=== PATIENT | male | born 1935 | race Caucasian/White ===

== ENCOUNTER → 2016-03-07 | Outpatient (CLI) | payer MEDICARE ==
[~2016-03-07] MED LIST: /ONDA4TA PO; AMLO5TAB OR; ASPI81TA45 OR; CAPT25TA3 OR; CIPR500T89 PO; CITRUCEL FIBER PO; DOXA1TAB41 PO; FLAG500T PO; FLON0.054; LIPI20TA OR; LOPR50TA OR; MECL-68 PO; MULTIVIT PO; NITR4TASL SL; OMEG100011 PO; TRAVATAN EYE DROPS OU; plavix; plavix PO
[2016-03-07 10:40] LABS: ALBUMIN 3.7 GM/DL (3.2-5.2); ALBUMIN/GLOBULIN RATIO 1.09 (1.00-1.93); ALKALINE PHOSPHATASE 81 U/L (45-117); ALT/SGPT 22 U/L (12-78); ANION GAP 9 MEQ/L (8-16); AST/SGOT 14 U/L (15-37); BLOOD UREA NITROGEN 18 MG/DL (7-18); CALCIUM LEVEL 9.3 MG/DL (8.8-10.2); CARBON DIOXIDE LEVEL 28 MEQ/L (21-32); CHLORIDE LEVEL 106 MEQ/L (98-107); GLOMERULAR FILTRATION RATE > 60.0 (>42); GLUCOSE, FASTING 103 MG/DL (83-110); MAGNESIUM LEVEL 2.1 MG/DL (1.8-2.4); POTASSIUM SERUM 4.3 MEQ/L (3.5-5.1); SODIUM LEVEL 143 MEQ/L (136-145); TOTAL PROTEIN 7.1 GM/DL (6.4-8.2)
== END ==
LOC: M LAB 09:17
PROVIDERS: ATTEND Physician Assistant
DX: I25.10 Atherosclerotic heart disease of native coronary artery without angina pectoris (principal); I49.01 Ventricular fibrillation; I25.5 Ischemic cardiomyopathy; E78.00 Pure hypercholesterolemia, unspecified

== ENCOUNTER 2016-04-08 07:15 | Emergency (ER) | payer MEDICARE ==
[2016-04-08 08:35] LABS: MEAN CORPUSCULAR HEMOGLOBIN 21.7 pg (27.0-33.0); MEAN CORPUSCULAR HGB CONC 31.4 g/dl (32.0-36.5); PLATELET COUNT, AUTOMATED 189 k/mm3 (150-450); RED CELL DISTRIBUTION WIDTH 15.5 % (11.5-14.5); WHITE BLOOD COUNT 6.3 K/mm3 (4.0-10.0)
[2016-04-08 09:00] LABS: ANION GAP 9 MEQ/L (8-16); BLOOD UREA NITROGEN 14 MG/DL (7-18); CALCIUM LEVEL 9.3 MG/DL (8.8-10.2); CARBON DIOXIDE LEVEL 26 MEQ/L (21-32); CHLORIDE LEVEL 107 MEQ/L (98-107); CREATININE FOR GFR 1.01 MG/DL (0.70-1.30); GLOMERULAR FILTRATION RATE > 60.0 (>42); GLUCOSE, FASTING 114 MG/DL (83-110); POTASSIUM SERUM 4.7 MEQ/L (3.5-5.1); SODIUM LEVEL 142 MEQ/L (136-145)
[2016-04-08 09:13] LABS: BANDS 3 % (< 11); EOSINOPHILS 2 % (0-5); OVALOCYTES 1+; POIKILOCYTOSIS 1+
[2016-04-08 09:14] LABS: ANISOCYTOSIS 1+; MICROCYTOSIS 1+
--- NOTE | 2016-04-08 10:30 | EDDOCDS ---
Nurse's Notes [facility] Name: Jean Jones Age: 80 yrs Sex: Male : 1935 Arrival Date: 04/08/2016 Time: 07:15 Bed I2 / M2 Private MD: Diagnosis: Hematuria Presentation: 04/08 07:38 Presenting complaint: Patient states: Noticed ''a few tiny red flecks'' in urine this dwg AM at 7, one time only, denies difficulty voiding or dysuria. Denies abdominal or pelvic discomfort at this time. Adult Sepsis Screening: The patient does not have new or worsening altered mentation. Patient's respiratory rate is less than 22. Systolic blood pressure is greater than 100. Patient has a qSOFA score of 0- Negative Sepsis Screen. Suicide/Homicide risk assessment- the patient denies having any suicidal and/or homicidal ideations and does not present with any other emotional, behavioral or mental health complaints. Status: Patient is not a service greeter or dependent. Transition of care: patient was not received from another setting of care. 07:38 Acuity: JOVANNY Level 4 [facility] 07:38 Method Of Arrival: Walkin/Carried/Asstd [facility] Triage Assessment: 07:48 General: Appears in no apparent distress. Pain: Denies pain. [facility] Historical: - Allergies: SULFA (SULFONAMIDES); - Home Meds: 1. amlodipine 10 mg Oral tab 1 tab once daily (Last dose: 04/08/2016 06:00) 2. aspirin 81 mg Oral TbEC 1 tab once daily (Last dose: 04/07/2016) 3. Lipitor 20 mg Oral tab 1 tab once daily (Last dose: 04/07/2016) 4. captopril 25 mg Oral tab 1 tab 2 times per day (Last dose: 04/08/2016 06:00) 5. Multivitamin Oral 1 tablet daily (Last dose: 04/08/2016 06:00) 6. nitroglycerin 0.4 mg SL subl 1 tab as needed 7. Fluticasone 50mcg nose spray BID (Last dose: 04/07/2016) - PMHx: Hypertension; Hypercholesterolemia; Myocardial [id number]; - PSHx: Cardiac stents (1996); Tonsillectomy; Adenoidectomy; Cataract Surgery- Bilateral; - Social history: Smoking status: Patient states former smoker of tobacco. No barriers to communication noted, The patient speaks fluent Hungarian. - Family history: Not pertinent. - : The pt / caregiver states he / she is not on anticoagulants. Home medication list is obtained from the patient. - Exposure Risk Screening:: None identified. Screenin:03 Screening information is obtained from the patient. Fall risk: No risks identified. kr3 Assistance ADL's: requires no assistance with activities of daily living. Abuse/DV Screen: The patient / caregiver reports he/she is: not in a situation that causes fear, pain or injury. Nutritional screening: No deficits noted. Advance Directives: Currently, there is a health care proxy, daughter. There is an active Power of [employer], daughter. home support is adequate. Assessment: 08:03 General: Appears in no apparent distress, comfortable, Behavior is cooperative. Pain: kr3 Denies pain. Neurological: No deficits noted. Respiratory: Respiratory effort is even, unlabored. : Reports hematuria Denies burning with urination, incontinence, urinary frequency, urgency. Derm: Skin is normal. 09:16 Reassessment: Patient appears in no apparent distress at this time. aware waiting for kr3 lab results. 10:11 General: Appears in no apparent distress, comfortable, Behavior is appropriate for age, hs1 cooperative, Pt aware of PA coming to speak with him about test results. . Vital Signs: 07:48 BP 168 / 81; Pulse 70; Resp 16; Temp 98.5(O); Pulse Ox 97% on R/A; Weight 102.06 kg; [facility] Height 6 ft. 1 in. (185.42 cm); Pain 0/10; 10:15 BP 159 / 80; Pulse 66; Resp 18; Temp 96.8(O); Pulse Ox 96% on R/A; Pain 0/10; nb2 07:48 Body Mass Index 29.68 (102.06 kg, 185.42 cm) [facility] Vitals: 07:48 Log In Time: April 08, 2016 at 07:17. [facility] ED Course: 07:16 Patient visited by Winsome Randall, Reg. hs2 07:16 Patient moved to Waiting hs2 07:37 Patient moved to Triage 1 [facility] 07:42 Triage Initiated [facility] 07:50 Patient moved to I2 / M2 [facility] 08:04 The patient / caregiver is instructed regarding the plan of care and ED course. kr3 Accompanied by Family Member, Patient has correct armband on for positive identification. Bed in low position. Call light in reach. Side rails up X 1. 08:08 Patient visited by Radha Lombardi RN. kr3 08:08 BMP Sent. kr3 08:08 CBC with Diff Sent. kr3 08:08 Urine Culture Sent. kr3 08:08 Urinalysis Sent. kr3 08:13 Sergei Tapia PA is PHCP. btw 08:13 Whitney Zavaleta MD is Attending Physician. btw 08:13 Patient visited by Sergei Tapia PA. btw 08:40 PLATELET ESTIMATE Sent. kr3 08:40 DIFFERENTIAL NO CHARGE Sent. kr3 09:16 Patient visited by Radha Lombardi RN. kr3 09:36 [facility] Payment Agreement was scanned into [employer] and attached to record. lg 10:11 Patient visited by Luz Regan RN. hs1 10:15 Patient visited by Elizabeth Cleveland. nb2 10:16 Drake Watts is Referral Physician. btw 10:29 No IV's were initiated during this patient's visit. No procedures done that require hs1 assistance. Order Results: Lab Order: Urinalysis; SPEC'M 04/08/16 08:08 Test: APPEARANCE, URINE; Value: CLEAR; Range: CLEAR; Status: F Test: COLOR, URINE; Value: RED; Range: YELLOW; Abnormal: Above high normal; Status: F Test: PH,URINE; Value: 6.0; Range: 5.0-9.0; Units: UNITS; Status: F Test: SPECIFIC GRAVITY URINE AUTO; Value: 1.002; Range: 1.002-1.035; Status: F Test: PROTEIN, URINE AUTO; Value: 2+; Range: NEGATIVE; Abnormal: Above high normal; Units: mg/dL; Status: F Test: GLUCOSE, URINE (UA) AUTO; Value: NEGATIVE; Range: NEGATIVE; Units: mg/dL; Status: F Test: KETONE, URINE AUTO; Value: NEGATIVE; Range: NEGATIVE; Units: mg/dL; Status: F Test: UROBILINOGEN, URINE AUTO; Value: 0.2; Range: 0.0-2.0; Units: mg/dL; Status: F Test: BILIRUBIN, URINE AUTO; Value: NEGATIVE; Range: NEGATIVE; Status: F Test: NITRITE, URINE AUTO; Value: NEGATIVE; Range: NEGATIVE; Status: F Test: LEUKOCYTE ESTERASE, URINE AUTO; Value: NEGATIVE; Range: NEGATIVE; Status: F Test: BLOOD, URINE BLOOD; Value: 3+; Range: NEGATIVE; Abnormal: Above high normal; Status: F Test: WBC, URINE AUTO; Value: 10; Range: 0-3; Abnormal: Above high normal; Units: /HPF; Status: F Test: RBC, URINE AUTO; Value: 140; Range: 0-3; Abnormal: Above high normal; Units: /HPF; Status: F Test: BACTERIA, URINE AUTO; Value: 1+; Range: NEGATIVE; Abnormal: Above high normal; Status: F Test: SQUAMOUS EPITHELIAL CELL UR AU; Value: 0; Range: 0-6; Units: /HPF; Status: F Test: HYALINE CAST, URINE AUTO; Value: 0; Range: 0-1; Units: /LPF; Status: F Lab Order: CBC with Diff; SPEC'M 04/08/16 08:08 Test: WHITE BLOOD COUNT; Value: 6.3; Range: 4.0-10.0; Units: K/mm3; Status: F Test: RED BLOOD COUNT; Value: 6.09; Range: 4.30-6.10; Units: M/mm3; Status: F Test: HEMOGLOBIN; Value: 13.2; Range: 14.0-18.0; Abnormal: Below low normal; Units: g/dl; Status: F Test: HEMATOCRIT; Value: 42.0; Range: 42.0-52.0; Units: %; Status: F Test: MEAN CORPUSCULAR VOLUME; Value: 69.0; Range: 80.0-96.0; Abnormal: Below low normal; Units: fl; Status: F Test: MEAN CORPUSCULAR HEMOGLOBIN; Value: 21.7; Range: 27.0-33.0; Abnormal: Below low normal; Units: pg; Status: F Test: MEAN CORPUSCULAR HGB CONC; Value: 31.4; Range: 32.0-36.5; Abnormal: Below low normal; Units: g/dl; Status: F Test: RED CELL DISTRIBUTION WIDTH; Value: 15.5; Range: 11.5-14.5; Abnormal: Above high normal; Units: %; Status: F Test: PLATELET COUNT, AUTOMATED; Value: 189; Range: 150-450; Units: k/mm3; Status: F Test: PLATELET ESTIMATE; Range: NORMAL; Status: I Test: NEUTROPHILS; Value: 73; Range: 35-75; Units: %; Status: F Test: BANDS; Value: 3; Range: < 11; Units: %; Status: F Test: LYMPHOCYTES; Value: 15; Range: 16-52; Abnormal: Below low normal; Units: %; Status: F Test: MONOCYTES; Value: 5; Range: 0-8; Units: %; Status: F Test: EOSINOPHILS; Value: 2; Range: 0-5; Units: %; Status: F Test: ATYPICAL LYMPH; Value: 2; Range: 0-5; Units: %; Status: F Test: POIKILOCYTOSIS; Value: 1+; Status: F Test: ANISOCYTOSIS; Value: 1+; Status: F Test: MICROCYTOSIS; Value: 1+; Status: F Test: OVALOCYTES; Value: 1+; Status: F Lab Order: [facility]; SPEC'M 04/08/16 08:08 Test: GLUCOSE, FASTING; Value: 114; Range: 83-110; Abnormal: Above high normal; Units: MG/DL; Status: F Test: BLOOD UREA NITROGEN; Value: 14; Range: 7-18; Units: MG/DL; Status: F Test: CREATININE FOR GFR; Value: 1.01; Range: 0.70-1.30; Units: MG/DL; Status: F Test: GLOMERULAR FILTRATION RATE; Value: > 60.0; Range: >42; Status: F Test: SODIUM LEVEL; Value: 142; Range: 136-145; Units: MEQ/L; Status: F Test: POTASSIUM SERUM; Value: 4.7; Range: 3.5-5.1; Units: MEQ/L; Status: F Test: CHLORIDE LEVEL; Value: 107; Range: 98-107; Units: MEQ/L; Status: F Test: CARBON DIOXIDE LEVEL; Value: 26; Range: 21-32; Units: MEQ/L; Status: F Test: ANION GAP; Value: 9; Range: 8-16; Units: MEQ/L; Status: F Test: CALCIUM LEVEL; Value: 9.3; Range: 8.8-10.2; Units: MG/DL; Status: F Test Note: ; Units are mL/min/1.73 m2 Chronic Kidney Disease Staging per NKF: Stage I & II GFR >=60 Normal to Mildly Decreased Stage III GFR 30-59 Moderately Decreased Stage IV GFR 15-29 Severely Decreased Stage V GFR <15 Very Little GFR Left ESRD GFR <15 on ELEVATOR CONSTRUCTOR ELECTRIC Lab Order: PLATELET ESTIMATE; SPEC'M 04/08/16 08:08 Test: PLATELET ESTIMATE; Value: NORMAL; Range: NORMAL; Status: F Outcome: 10:17 Discharge ordered by Provider. btw 10:29 Discharge Assessment: Patient awake, alert and oriented x 3. No cognitive and/or hs1 functional deficits noted. Patient verbalized understanding of disposition instructions. patient administered narcotics - no. The following High Risk Discharge criteria are identified: None. Discharged to home ambulatory. Condition: stable. Discharge instructions given to patient, Instructed on discharge instructions, follow up and referral plans. medication usage, Demonstrated understanding of instructions, medications, Pt was receptive of discharge instructions/ teaching. No special radiology studies were completed. Property sent home with patient. 10:29 Patient left the ED. hs1 Signatures: Sean Angel, CLARIE RN dwg Gaurav Guerrero, Reg Reg lg Radha Lombardi,CLAIRE RN kr3 Sergei Tapia PA PA btw Luz Regan RN RN hs1 Winsome Randall, Reg Reg hs2 Elizabeth Cleveland2 MTDD
--- NOTE | 2016-04-08 10:30 | EDDOCDS ---
Physician Documentation [facility] Name: Jean Jones Age: 80 yrs Sex: Male : 1935 Arrival Date: 04/08/2016 Time: 07:15 Bed I2 / M2 Private MD: Disposition: 04/08/16 10:17 Discharged to Home/Self Care. Impression: Hematuria. - Condition is Stable. - Discharge Instructions: Hematuria, Adult. - Medication Reconciliation, Local Pharmacy Hours form. - Follow up: Drake Watts; When: 1 - 2 days; Reason: Further diagnostic work-up, Recheck today's complaints, Continuance of care. - Problem is new. - Symptoms are unchanged. Historical: - Allergies: SULFA (SULFONAMIDES); - Home Meds: 1. amlodipine 10 mg Oral tab 1 tab once daily (Last dose: 04/08/2016 06:00) 2. aspirin 81 mg Oral TbEC 1 tab once daily (Last dose: 04/07/2016) 3. Lipitor 20 mg Oral tab 1 tab once daily (Last dose: 04/07/2016) 4. captopril 25 mg Oral tab 1 tab 2 times per day (Last dose: 04/08/2016 06:00) 5. Multivitamin Oral 1 tablet daily (Last dose: 04/08/2016 06:00) 6. nitroglycerin 0.4 mg SL subl 1 tab as needed 7. Fluticasone 50mcg nose spray BID (Last dose: 04/07/2016) - PMHx: Hypertension; Hypercholesterolemia; Myocardial [id number]; - PSHx: Cardiac stents (1996); Tonsillectomy; Adenoidectomy; Cataract Surgery- Bilateral; - Social history: Smoking status: Patient states former smoker of tobacco. No barriers to communication noted, The patient speaks fluent South African. - Family history: Not pertinent. - : The pt / caregiver states he / she is not on anticoagulants. Home medication list is obtained from the patient. - Exposure Risk Screening:: None identified. Vital Signs: 04/08 07:48 BP 168 / 81; Pulse 70; Resp 16; Temp 98.5(O); Pulse Ox 97% on R/A; Weight 102.06 kg / dwg 225 lbs; Height 6 ft. 1 in. (185.42 cm); Pain 0/10; 10:15 BP 159 / 80; Pulse 66; Resp 18; Temp 96.8(O); Pulse Ox 96% on R/A; Pain 0/10; nb2 07:48 Body Mass Index 29.68 (102.06 kg, 185.42 cm) [facility] MDM: 08:05 Urinalysis Ordered. EDMS 08:05 CBC with Diff Ordered. EDMS 08:05 BMP Ordered. EDMS 08:05 Urine Culture Ordered. EDMS 08:26 Financial registration complete. lg 08:37 DIFFERENTIAL NO CHARGE Ordered. EDMS 08:37 PLATELET ESTIMATE Ordered. EDMS 09:05 Urinalysis Reviewed. btw 09:05 BMP Reviewed. btw 09:32 CBC with Diff Reviewed. btw 09:32 PLATELET ESTIMATE Reviewed. btw 09:36 [facility] Payment Agreement was scanned into [employer] and attached to record. lg Signatures: Dispatcher [employer] Sean Keyes RN RN dw Gaurav Guerrero, Reg Reg lg Sergei Tapia PA PA btw Luz Regan RN RN hs1 The chart was reviewed and I authenticate all verbal orders and agree with the evaluation and treatment provided.Attachments: 09:36 [facility] Payment Agreement lg MTDD
--- NOTE | 2016-04-10 11:30 | EDDOCDS ---
Physician Documentation [facility] Name: Jean Jones Age: 80 yrs Sex: Male : 1935 Arrival Date: 04/08/2016 Time: 07:15 Bed I2 / M2 Private MD: Disposition: 04/08/16 10:17 Discharged to Home/Self Care. Impression: Hematuria. - Condition is Stable. - Discharge Instructions: Hematuria, Adult. - Medication Reconciliation, Local Pharmacy Hours form. - Follow up: Drake Watts; When: 1 - 2 days; Reason: Further diagnostic work-up, Recheck today's complaints, Continuance of care. - Problem is new. - Symptoms are unchanged. Historical: - Allergies: SULFA (SULFONAMIDES); - Home Meds: 1. amlodipine 10 mg Oral tab 1 tab once daily (Last dose: 04/08/2016 06:00) 2. aspirin 81 mg Oral TbEC 1 tab once daily (Last dose: 04/07/2016) 3. Lipitor 20 mg Oral tab 1 tab once daily (Last dose: 04/07/2016) 4. captopril 25 mg Oral tab 1 tab 2 times per day (Last dose: 04/08/2016 06:00) 5. Multivitamin Oral 1 tablet daily (Last dose: 04/08/2016 06:00) 6. nitroglycerin 0.4 mg SL subl 1 tab as needed 7. Fluticasone 50mcg nose spray BID (Last dose: 04/07/2016) - PMHx: Hypertension; Hypercholesterolemia; Myocardial [id number]; - PSHx: Cardiac stents (1996); Tonsillectomy; Adenoidectomy; Cataract Surgery- Bilateral; - Social history: Smoking status: Patient states former smoker of tobacco. No barriers to communication noted, The patient speaks fluent [place] Verde[place]. - Family history: Not pertinent. - : The pt / caregiver states he / she is not on anticoagulants. Home medication list is obtained from the patient. - Exposure Risk Screening:: None identified. Vital Signs: 04/08 07:48 BP 168 / 81; Pulse 70; Resp 16; Temp 98.5(O); Pulse Ox 97% on R/A; Weight 102.06 kg / dwg 225 lbs; Height 6 ft. 1 in. (185.42 cm); Pain 0/10; 10:15 BP 159 / 80; Pulse 66; Resp 18; Temp 96.8(O); Pulse Ox 96% on R/A; Pain 0/10; nb2 07:48 Body Mass Index 29.68 (102.06 kg, 185.42 cm) [facility] MDM: 08:05 Urinalysis Ordered. EDMS 08:05 CBC with Diff Ordered. EDMS 08:05 BMP Ordered. EDMS 08:05 Urine Culture Ordered. EDMS 08:26 Financial registration complete. lg 08:37 DIFFERENTIAL NO CHARGE Ordered. EDMS 08:37 PLATELET ESTIMATE Ordered. EDMS 09:05 Urinalysis Reviewed. btw 09:05 BMP Reviewed. btw 09:32 CBC with Diff Reviewed. btw 09:32 PLATELET ESTIMATE Reviewed. btw 09:36 [facility] Payment Agreement was scanned into [employer] and attached to record. lg 15:06 T-Sheet-- Draft Copy was scanned into [employer] and attached to record. gb Signatures: Dispatcher [employer] EDSean Negro RN RN [facility] Suellen Richardson, Reg Reg gb Gaurav Guerrero, Reg Reg lg Sergei Tapia PA PA btw Luz Regan RN RN hs1 The chart was reviewed and I authenticate all verbal orders and agree with the evaluation and treatment provided.Attachments: 09:36 [facility] Payment Agreement lg 15:06 T-Sheet-- Draft Copy gb Chart Complete MTDD
--- NOTE | 2016-04-10 11:30 | EDDOCDS ---
Nurse's Notes [facility] Name: Jean Jones Age: 80 yrs Sex: Male : 1935 Arrival Date: 04/08/2016 Time: 07:15 Bed I2 / M2 Private MD: Diagnosis: Hematuria Presentation: 04/08 07:38 Presenting complaint: Patient states: Noticed ''a few tiny red flecks'' in urine this dwg AM at 7, one time only, denies difficulty voiding or dysuria. Denies abdominal or pelvic discomfort at this time. Adult Sepsis Screening: The patient does not have new or worsening altered mentation. Patient's respiratory rate is less than 22. Systolic blood pressure is greater than 100. Patient has a qSOFA score of 0- Negative Sepsis Screen. Suicide/Homicide risk assessment- the patient denies having any suicidal and/or homicidal ideations and does not present with any other emotional, behavioral or mental health complaints. Status: Patient is not a family services assistant or dependent. Transition of care: patient was not received from another setting of care. 07:38 Acuity: JOVANNY Level 4 [facility] 07:38 Method Of Arrival: Walkin/Carried/Asstd [facility] Triage Assessment: 07:48 General: Appears in no apparent distress. Pain: Denies pain. [facility] Historical: - Allergies: SULFA (SULFONAMIDES); - Home Meds: 1. amlodipine 10 mg Oral tab 1 tab once daily (Last dose: 04/08/2016 06:00) 2. aspirin 81 mg Oral TbEC 1 tab once daily (Last dose: 04/07/2016) 3. Lipitor 20 mg Oral tab 1 tab once daily (Last dose: 04/07/2016) 4. captopril 25 mg Oral tab 1 tab 2 times per day (Last dose: 04/08/2016 06:00) 5. Multivitamin Oral 1 tablet daily (Last dose: 04/08/2016 06:00) 6. nitroglycerin 0.4 mg SL subl 1 tab as needed 7. Fluticasone 50mcg nose spray BID (Last dose: 04/07/2016) - PMHx: Hypertension; Hypercholesterolemia; Myocardial [id number]; - PSHx: Cardiac stents (1996); Tonsillectomy; Adenoidectomy; Cataract Surgery- Bilateral; - Social history: Smoking status: Patient states former smoker of tobacco. No barriers to communication noted, The patient speaks fluent Icelandic. - Family history: Not pertinent. - : The pt / caregiver states he / she is not on anticoagulants. Home medication list is obtained from the patient. - Exposure Risk Screening:: None identified. Screenin:03 Screening information is obtained from the patient. Fall risk: No risks identified. kr3 Assistance ADL's: requires no assistance with activities of daily living. Abuse/DV Screen: The patient / caregiver reports he/she is: not in a situation that causes fear, pain or injury. Nutritional screening: No deficits noted. Advance Directives: Currently, there is a health care proxy, daughter. There is an active Power of [employer], daughter. home support is adequate. Assessment: 08:03 General: Appears in no apparent distress, comfortable, Behavior is cooperative. Pain: kr3 Denies pain. Neurological: No deficits noted. Respiratory: Respiratory effort is even, unlabored. : Reports hematuria Denies burning with urination, incontinence, urinary frequency, urgency. Derm: Skin is normal. 09:16 Reassessment: Patient appears in no apparent distress at this time. aware waiting for kr3 lab results. 10:11 General: Appears in no apparent distress, comfortable, Behavior is appropriate for age, hs1 cooperative, Pt aware of PA coming to speak with him about test results. . Vital Signs: 07:48 BP 168 / 81; Pulse 70; Resp 16; Temp 98.5(O); Pulse Ox 97% on R/A; Weight 102.06 kg; [facility] Height 6 ft. 1 in. (185.42 cm); Pain 0/10; 10:15 BP 159 / 80; Pulse 66; Resp 18; Temp 96.8(O); Pulse Ox 96% on R/A; Pain 0/10; nb2 07:48 Body Mass Index 29.68 (102.06 kg, 185.42 cm) [facility] Vitals: 07:48 Log In Time: April 08, 2016 at 07:17. [facility] ED Course: 07:16 Patient visited by Winsome Randall, Reg. hs2 07:16 Patient moved to Waiting hs2 07:37 Patient moved to Triage 1 [facility] 07:42 Triage Initiated [facility] 07:50 Patient moved to I2 / M2 [facility] 08:04 The patient / caregiver is instructed regarding the plan of care and ED course. kr3 Accompanied by Family Member, Patient has correct armband on for positive identification. Bed in low position. Call light in reach. Side rails up X 1. 08:08 Patient visited by Radha Lombardi RN. kr3 08:08 BMP Sent. kr3 08:08 CBC with Diff Sent. kr3 08:08 Urine Culture Sent. kr3 08:08 Urinalysis Sent. kr3 08:13 Sergei Tapia PA is PHCP. btw 08:13 Whitney Zavaleta MD is Attending Physician. btw 08:13 Patient visited by Sergei Tapia PA. btw 08:40 PLATELET ESTIMATE Sent. kr3 08:40 DIFFERENTIAL NO CHARGE Sent. kr3 09:16 Patient visited by Radha Lombardi RN. kr3 09:36 [facility] Payment Agreement was scanned into [employer] and attached to record. lg 10:11 Patient visited by Luz Regan RN. hs1 10:15 Patient visited by Elizabeth Cleveland. nb2 10:16 Drake Watts is Referral Physician. btw 10:29 No IV's were initiated during this patient's visit. No procedures done that require hs1 assistance. 15:06 T-Sheet-- Draft Copy was scanned into [employer] and attached to record. gb Order Results: Lab Order: Urinalysis; SPEC'M 04/08/16 08:08 Test: APPEARANCE, URINE; Value: CLEAR; Range: CLEAR; Status: F Test: COLOR, URINE; Value: RED; Range: YELLOW; Abnormal: Above high normal; Status: F Test: PH,URINE; Value: 6.0; Range: 5.0-9.0; Units: UNITS; Status: F Test: SPECIFIC GRAVITY URINE AUTO; Value: 1.002; Range: 1.002-1.035; Status: F Test: PROTEIN, URINE AUTO; Value: 2+; Range: NEGATIVE; Abnormal: Above high normal; Units: mg/dL; Status: F Test: GLUCOSE, URINE (UA) AUTO; Value: NEGATIVE; Range: NEGATIVE; Units: mg/dL; Status: F Test: KETONE, URINE AUTO; Value: NEGATIVE; Range: NEGATIVE; Units: mg/dL; Status: F Test: UROBILINOGEN, URINE AUTO; Value: 0.2; Range: 0.0-2.0; Units: mg/dL; Status: F Test: BILIRUBIN, URINE AUTO; Value: NEGATIVE; Range: NEGATIVE; Status: F Test: NITRITE, URINE AUTO; Value: NEGATIVE; Range: NEGATIVE; Status: F Test: LEUKOCYTE ESTERASE, URINE AUTO; Value: NEGATIVE; Range: NEGATIVE; Status: F Test: BLOOD, URINE BLOOD; Value: 3+; Range: NEGATIVE; Abnormal: Above high normal; Status: F Test: WBC, URINE AUTO; Value: 10; Range: 0-3; Abnormal: Above high normal; Units: /HPF; Status: F Test: RBC, URINE AUTO; Value: 140; Range: 0-3; Abnormal: Above high normal; Units: /HPF; Status: F Test: BACTERIA, URINE AUTO; Value: 1+; Range: NEGATIVE; Abnormal: Above high normal; Status: F Test: SQUAMOUS EPITHELIAL CELL UR AU; Value: 0; Range: 0-6; Units: /HPF; Status: F Test: HYALINE CAST, URINE AUTO; Value: 0; Range: 0-1; Units: /LPF; Status: F Lab Order: Urine Culture; SPEC'M 04/08/16 08:08 Test: URINE CULTURE; Value: <EXTERNAL COMMENT eCWMed> FULL REPORT IN LAB NOTES (eCW and Medent).; Status: F Test: URINE CULTURE; Value: URINE CULTURE RESULT NO GROWTH; Status: F Lab Order: CBC with Diff; SPEC'M 04/08/16 08:08 Test: WHITE BLOOD COUNT; Value: 6.3; Range: 4.0-10.0; Units: K/mm3; Status: F Test: RED BLOOD COUNT; Value: 6.09; Range: 4.30-6.10; Units: M/mm3; Status: F Test: HEMOGLOBIN; Value: 13.2; Range: 14.0-18.0; Abnormal: Below low normal; Units: g/dl; Status: F Test: HEMATOCRIT; Value: 42.0; Range: 42.0-52.0; Units: %; Status: F Test: MEAN CORPUSCULAR VOLUME; Value: 69.0; Range: 80.0-96.0; Abnormal: Below low normal; Units: fl; Status: F Test: MEAN CORPUSCULAR HEMOGLOBIN; Value: 21.7; Range: 27.0-33.0; Abnormal: Below low normal; Units: pg; Status: F Test: MEAN CORPUSCULAR HGB CONC; Value: 31.4; Range: 32.0-36.5; Abnormal: Below low normal; Units: g/dl; Status: F Test: RED CELL DISTRIBUTION WIDTH; Value: 15.5; Range: 11.5-14.5; Abnormal: Above high normal; Units: %; Status: F Test: PLATELET COUNT, AUTOMATED; Value: 189; Range: 150-450; Units: k/mm3; Status: F Test: PLATELET ESTIMATE; Range: NORMAL; Status: I Test: NEUTROPHILS; Value: 73; Range: 35-75; Units: %; Status: F Test: BANDS; Value: 3; Range: < 11; Units: %; Status: F Test: LYMPHOCYTES; Value: 15; Range: 16-52; Abnormal: Below low normal; Units: %; Status: F Test: MONOCYTES; Value: 5; Range: 0-8; Units: %; Status: F Test: EOSINOPHILS; Value: 2; Range: 0-5; Units: %; Status: F Test: ATYPICAL LYMPH; Value: 2; Range: 0-5; Units: %; Status: F Test: POIKILOCYTOSIS; Value: 1+; Status: F Test: ANISOCYTOSIS; Value: 1+; Status: F Test: MICROCYTOSIS; Value: 1+; Status: F Test: OVALOCYTES; Value: 1+; Status: F Lab Order: [facility]; SPEC'M 04/08/16 08:08 Test: GLUCOSE, FASTING; Value: 114; Range: 83-110; Abnormal: Above high normal; Units: MG/DL; Status: F Test: BLOOD UREA NITROGEN; Value: 14; Range: 7-18; Units: MG/DL; Status: F Test: CREATININE FOR GFR; Value: 1.01; Range: 0.70-1.30; Units: MG/DL; Status: F Test: GLOMERULAR FILTRATION RATE; Value: > 60.0; Range: >42; Status: F Test: SODIUM LEVEL; Value: 142; Range: 136-145; Units: MEQ/L; Status: F Test: POTASSIUM SERUM; Value: 4.7; Range: 3.5-5.1; Units: MEQ/L; Status: F Test: CHLORIDE LEVEL; Value: 107; Range: 98-107; Units: MEQ/L; Status: F Test: CARBON DIOXIDE LEVEL; Value: 26; Range: 21-32; Units: MEQ/L; Status: F Test: ANION GAP; Value: 9; Range: 8-16; Units: MEQ/L; Status: F Test: CALCIUM LEVEL; Value: 9.3; Range: 8.8-10.2; Units: MG/DL; Status: F Test Note: ; Units are mL/min/1.73 m2 Chronic Kidney Disease Staging per NKF: Stage I & II GFR >=60 Normal to Mildly Decreased Stage III GFR 30-59 Moderately Decreased Stage IV GFR 15-29 Severely Decreased Stage V GFR <15 Very Little GFR Left ESRD GFR <15 on INCOME AUDITOR Lab Order: PLATELET ESTIMATE; SPEC'M 04/08/16 08:08 Test: PLATELET ESTIMATE; Value: NORMAL; Range: NORMAL; Status: F Outcome: 10:17 Discharge ordered by Provider. btw 10:29 Discharge Assessment: Patient awake, alert and oriented x 3. No cognitive and/or hs1 functional deficits noted. Patient verbalized understanding of disposition instructions. patient administered narcotics - no. The following High Risk Discharge criteria are identified: None. Discharged to home ambulatory. Condition: stable. Discharge instructions given to patient, Instructed on discharge instructions, follow up and referral plans. medication usage, Demonstrated understanding of instructions, medications, Pt was receptive of discharge instructions/ teaching. No special radiology studies were completed. Property sent home with patient. 10:29 Patient left the ED. hs1 Signatures: Sean Angel, CLAIRE RANGEL dw Suellen Richardson, Reg Reg gb Gaurav Guerrero, Reg Reg lg Radha Lombardi RN RN kr3 Sergei Tapia PA PA btw Luz Regan RN RN hs1 Winsome Randall, Reg Reg hs2 Elizabeth Cleveland2 Chart Complete MTDD
--- NOTE | 2016-04-10 11:30 | EDDOCDS ---
Physician Documentation [facility] Name: Jean Jones Age: 80 yrs Sex: Male : 1935 Arrival Date: 04/08/2016 Time: 07:15 Bed I2 / M2 Private MD: Disposition: 04/08/16 10:17 Discharged to Home/Self Care. Impression: Hematuria. - Condition is Stable. - Discharge Instructions: Hematuria, Adult. - Medication Reconciliation, Local Pharmacy Hours form. - Follow up: Drake Watts; When: 1 - 2 days; Reason: Further diagnostic work-up, Recheck today's complaints, Continuance of care. - Problem is new. - Symptoms are unchanged. Historical: - Allergies: SULFA (SULFONAMIDES); - Home Meds: 1. amlodipine 10 mg Oral tab 1 tab once daily (Last dose: 04/08/2016 06:00) 2. aspirin 81 mg Oral TbEC 1 tab once daily (Last dose: 04/07/2016) 3. Lipitor 20 mg Oral tab 1 tab once daily (Last dose: 04/07/2016) 4. captopril 25 mg Oral tab 1 tab 2 times per day (Last dose: 04/08/2016 06:00) 5. Multivitamin Oral 1 tablet daily (Last dose: 04/08/2016 06:00) 6. nitroglycerin 0.4 mg SL subl 1 tab as needed 7. Fluticasone 50mcg nose spray BID (Last dose: 04/07/2016) - PMHx: Hypertension; Hypercholesterolemia; Myocardial [id number]; - PSHx: Cardiac stents (1996); Tonsillectomy; Adenoidectomy; Cataract Surgery- Bilateral; - Social history: Smoking status: Patient states former smoker of tobacco. No barriers to communication noted, The patient speaks fluent Nigerien. - Family history: Not pertinent. - : The pt / caregiver states he / she is not on anticoagulants. Home medication list is obtained from the patient. - Exposure Risk Screening:: None identified. Vital Signs: 04/08 07:48 BP 168 / 81; Pulse 70; Resp 16; Temp 98.5(O); Pulse Ox 97% on R/A; Weight 102.06 kg / dwg 225 lbs; Height 6 ft. 1 in. (185.42 cm); Pain 0/10; 10:15 BP 159 / 80; Pulse 66; Resp 18; Temp 96.8(O); Pulse Ox 96% on R/A; Pain 0/10; nb2 07:48 Body Mass Index 29.68 (102.06 kg, 185.42 cm) [facility] MDM: 08:05 Urinalysis Ordered. EDMS 08:05 CBC with Diff Ordered. EDMS 08:05 BMP Ordered. EDMS 08:05 Urine Culture Ordered. EDMS 08:26 Financial registration complete. lg 08:37 DIFFERENTIAL NO CHARGE Ordered. EDMS 08:37 PLATELET ESTIMATE Ordered. EDMS 09:05 Urinalysis Reviewed. btw 09:05 BMP Reviewed. btw 09:32 CBC with Diff Reviewed. btw 09:32 PLATELET ESTIMATE Reviewed. btw 09:36 [facility] Payment Agreement was scanned into [employer] and attached to record. lg 15:06 T-Sheet-- Draft Copy was scanned into [employer] and attached to record. gb Signatures: Dispatcher [employer] EDSean Negro RN RN [facility] Suellen Richardson, Reg Reg gb Gaurav Guerrero, Reg Reg lg Sergei Tapia PA PA btw Luz Regan RN RN hs1 The chart was reviewed and I authenticate all verbal orders and agree with the evaluation and treatment provided.Attachments: 09:36 [facility] Payment Agreement lg 15:06 T-Sheet-- Draft Copy gb Chart Complete MTDD
== END 2016-04-08 10:29 | disposition home or self-care (01) ==
LOC: M ED 07:15
DX: R31.0 Gross hematuria (principal); I10 Essential (primary) hypertension; E78.00 Pure hypercholesterolemia, unspecified; I25.2 Old myocardial infarction; Z79.899 Other long term (current) drug therapy; Z79.82 Long term (current) use of aspirin; Z88.2 Allergy status to sulfonamides; Z87.891 Personal history of nicotine dependence

== ENCOUNTER → 2016-04-16 | Outpatient (CLI) | payer MEDICARE ==
[~2016-04-16] MED LIST changes: +ISOVUE-370 76% 100ML VIAL (Q9967) As Ordered ONE
--- NOTE | 2016-04-16 09:21 | REP ---
Clinical: Hematuria. Technique: Axial precontrast, contrast enhanced, and delayed images of the abdomen and pelvis using 100 ml Isovue 370 intravenous contrast material with coronal and sagittal re-formations as well as MIP urogram images. Comparison: 12/14/2013. Findings: Evaluation of the urinary tract system demonstrates bilateral chronic perinephric stranding and multiple renal cysts measuring up to 6.3 cm in the upper pole right kidney and 4.4 cm lower pole left kidney. No evidence for nephroureterolithiasis, hydroureteronephrosis, or renal mass lesion. The bladder and left ureter appear normal. There is a small diverticulum involving the very distal aspect of the right ureter approaching the bladder (images 130 - 135). Prostate gland demonstrates mild mass effect on the base of the bladder. Liver demonstrates few small cysts up to 1 cm. Spleen, and bilateral adrenal glands are normal. Evidence for chronic pancreatitis with parenchymal calcifications noted. Cholelithiasis noted without CT evidence for acute cholecystitis. The enteric system demonstrates moderate fecal stasis and diffuse diverticulosis. 3 cm fat containing periumbilical hernia noted. No ascites. No free air. No obvious adenopathy. Atherosclerotic changes of the aorta noted with ectasia to the distal aorta and bilateral common iliac arteries remaining stable compared to 2013. Surrounding musculoskeletal structures demonstrate degenerative changes without focal osseous abnormality. Lung bases demonstrate chronic changes and evidence for cardiomegaly. Impression: 1. Urinary tract system demonstrates bilateral renal cysts and a small distal right ureteral diverticulum along with chronic symmetric perinephric stranding. 2. Prostate gland demonstrates mass effect on the base of the bladder. 3. Diffuse marked diverticulosis. 4. Cholelithiasis. 5. Chronic ectatic appearance to the distal left abdominal aorta and bilateral iliac arteries. Signed by Tyrel Del Valle MD 04/16/2016 09:12 A
== END ==
LOC: M RAD 07:28
PROVIDERS: ATTEND Nurse Practitioner Family
DX: R31.9 Hematuria, unspecified (principal); N28.1 Cyst of kidney, acquired; N28.89 Other specified disorders of kidney and ureter; K80.70 Calculus of gallbladder and bile duct without cholecystitis without obstruction; K57.90 Diverticulosis of intestine, part unspecified, without perforation or abscess without bleeding; K42.9 Umbilical hernia without obstruction or gangrene; I70.0 Atherosclerosis of aorta
CPT/HCPCS: 74178; Q9967

== ENCOUNTER → 2016-06-01 | Outpatient (REF) | payer MEDICARE ==
[~2016-06-01] MED LIST changes: +AMLO10TA2 PO; +ASPI1TAB24 PO; +ATOR1TAB21 PO; +CAPT1TAB17 PO; +FLOM5CAP PO; +FLON1SPR; -ISOVUE-370 76% 100ML VIAL (Q9967) As Ordered ONE; +MULT1TAB10 PO; +TIMO5OPD OU
[2016-06-01 19:09] LABS: ANION GAP 7 MEQ/L (8-16); BLOOD UREA NITROGEN 24 MG/DL (7-18); CARBON DIOXIDE LEVEL 28 MEQ/L (21-32); CHLORIDE LEVEL 108 MEQ/L (98-107); CREATININE FOR GFR 1.03 MG/DL (0.70-1.30); GLOMERULAR FILTRATION RATE > 60.0 (>42); GLUCOSE, FASTING 130 MG/DL (83-110); MEAN CORPUSCULAR HEMOGLOBIN 22.1 pg (27.0-33.0); MEAN CORPUSCULAR HGB CONC 31.5 g/dl (32.0-36.5); POTASSIUM SERUM 4.1 MEQ/L (3.5-5.1); RED CELL DISTRIBUTION WIDTH 15.9 % (11.5-14.5); SODIUM LEVEL 143 MEQ/L (136-145); WHITE BLOOD COUNT 6.1 K/mm3 (4.0-10.0)
[2016-06-01 19:11] LABS: INR 1.08
== END ==
LOC: M LABDRAW1 17:39
PROVIDERS: ATTEND Urology
DX: Z01.818 Encounter for other preprocedural examination (principal); D49.4 Neoplasm of unspecified behavior of bladder

== ENCOUNTER → 2016-06-21 | Outpatient (REF) | payer MEDICARE | LOC: M SMT 13:43 | PROVIDERS: ATTEND Urology | DX: Z01.818 Encounter for other preprocedural examination (principal); D49.4 Neoplasm of unspecified behavior of bladder ==

== ENCOUNTER → 2016-06-28 | Day surgery (SDC) | payer MEDICARE ==
[~2016-06-28] VITALS: Ht 185.4 cm; Wt 104.3 kg
[~2016-06-28] MED LIST changes: +ACETAMINOPHEN TAB 650MG DOSE (2X325MG) PO PRN; +GLYCOPYRROLATE INJ 0.2 MG/ML 2 ML VIAL As Ordered ONE; +LIDOCAINE 2% INJ 100 MG/5 ML SDV (FOR ANES.) As Ordered ONE; +LR 1,000 ML IV SCH; +LevoFLOXacin IV 500 MG in APPROPRIATE DILUENT 1 EA IV ONE; +MIDAZOLAM INJ 2 MG/2 ML VIAL (J2250) As Ordered ONE; +NEOSTIGMINE 1MG/ML 5 ML SYRINGE (J2710) As Ordered ONE; +NORCO, ANEXSIA 5/325MG TABLET (HYDROcodone/ACETAMINOPHEN) PO PRN; +ONDANSETRON 4MG/2ML VIAL (J2405) As Ordered ONE; +ONDANSETRON 4MG/2ML VIAL (J2405) IV PRN; +PROPOFOL 200 MG/20 ML VIAL As Ordered ONE; +ROCURONIUM BROMIDE 50 MG/5 ML VIAL As Ordered ONE; +ePHEDrine SULFATE 25 MG/5 ML(5MG/ML) SYRINGE As Ordered ONE; +fentaNYL 100 MCG/2 ML INJECTION (J3010) IV PRN; +fentaNYL 250 MCG/5 ML INJECTION (J3010) As Ordered ONE
[2016-06-28 13:00] VITALS: BP 162/70
--- NOTE | 2016-06-28 16:39 | RO ---
DATE OF PROCEDURE: 06/28/2016 PREPROCEDURE DIAGNOSIS: Bladder tumor. POSTPROCEDURE DIAGNOSIS: Bladder tumor. PROCEDURE: Cystoscopy, transurethral resection of bladder tumor (greater than 5 cm), examination under anesthesia, urethral meatal dilation. SURGEON: Dr. Drake Watts CHAIN LINK FENCE INSTALLER: None. ANESTHESIA: General. OPERATIVE INDICATIONS: This is a 80-year-old male who was recently found to have a large necrotic appearing tumor at his bladder dome on office cystoscopy. It was recommended he be brought to the operating room today for the above listed procedure. DESCRIPTION OF PROCEDURE: The patient was brought to the operating room and general anesthesia was induced. Prophylactic antibiotics were infused. He was then placed in the dorsal lithotomy position and a bimanual digital rectal examination under anesthesia was performed. It was negative for palpable prostate nodules, and there were no palpable bladder masses. The bladder was freely mobile. The patient was then prepped and draped in the usual sterile fashion. A rigid cystoscope was then inserted into the urethral meatus and advanced to the bladder. Once the scope was in the bladder, the bladder thoroughly examined with both the 30 and the 70-degree lenses and it was notable only for the large necrotic appearing tumor at the bladder dome. At this point, the cystoscope was removed, and I tried going in with a resectoscope using the visual obturator and the urethral meatus was too narrow to get the scope in. I therefore dilated the urethral meatus to 32-Jamaican using curved metal sounds. At this point, the resectoscope was introduced using a visual obturator and within the bladder, I then resected the tumor completely. I made sure to resect deep enough to get into the muscle layer of the bladder. Once done, hemostasis was obtained using coagulation current. I then used the CieloFavery evacuator to remove all the tumor specimens from the bladder. Once that was done , the resectoscope was removed, and an 18-Jamaican Ortega catheter was inserted into the bladder and the balloon was filled with 10 mL of sterile water. Urine drained light pink at the end of the procedure. The catheter was then connected to gravity drainage and this marked the conclusion of the procedure. The patient was then taken out of the dorsal lithotomy position, awakened from anesthesia and transported to the recovery room in stable condition. ESTIMATED BLOOD LOSS: 0 mL. COMPLICATIONS: None. SPECIMEN: Bladder tumor. PLAN: The patient will followup in the clinic in about a week for catheter removal and to discuss his pathology results. MONICA
== END | disposition home or self-care (01) ==
LOC: M SDC 09:02
PROVIDERS: ATTEND Urology
DX: C67.9 Malignant neoplasm of bladder, unspecified (principal); I25.10 Atherosclerotic heart disease of native coronary artery without angina pectoris; I25.2 Old myocardial infarction; I10 Essential (primary) hypertension; E78.00 Pure hypercholesterolemia, unspecified; K57.30 Diverticulosis of large intestine without perforation or abscess without bleeding; R06.02 Shortness of breath; H40.9 Unspecified glaucoma; N40.0 Benign prostatic hyperplasia without lower urinary tract symptoms; Z88.2 Allergy status to sulfonamides; Z91.030 Bee allergy status; Z91.09 Other allergy status, other than to drugs and biological substances; Z79.899 Other long term (current) drug therapy; Z79.82 Long term (current) use of aspirin; Z86.79 Personal history of other diseases of the circulatory system; Z95.5 Presence of coronary angioplasty implant and graft; Z96.1 Presence of intraocular lens; Z87.891 Personal history of nicotine dependence
CPT/HCPCS: 52240; 88307; J1956; J2250; J2405; J2710; J3010

== ENCOUNTER → 2016-07-09 | Outpatient (REF) | payer MEDICARE ==
[~2016-07-09] MED LIST changes: -ACETAMINOPHEN TAB 650MG DOSE (2X325MG) PO PRN; -GLYCOPYRROLATE INJ 0.2 MG/ML 2 ML VIAL As Ordered ONE; -LIDOCAINE 2% INJ 100 MG/5 ML SDV (FOR ANES.) As Ordered ONE; -LR 1,000 ML IV SCH; -LevoFLOXacin IV 500 MG in APPROPRIATE DILUENT 1 EA IV ONE; -MIDAZOLAM INJ 2 MG/2 ML VIAL (J2250) As Ordered ONE; -NEOSTIGMINE 1MG/ML 5 ML SYRINGE (J2710) As Ordered ONE; -NORCO, ANEXSIA 5/325MG TABLET (HYDROcodone/ACETAMINOPHEN) PO PRN; -ONDANSETRON 4MG/2ML VIAL (J2405) As Ordered ONE; -ONDANSETRON 4MG/2ML VIAL (J2405) IV PRN; -PROPOFOL 200 MG/20 ML VIAL As Ordered ONE; -ROCURONIUM BROMIDE 50 MG/5 ML VIAL As Ordered ONE; -ePHEDrine SULFATE 25 MG/5 ML(5MG/ML) SYRINGE As Ordered ONE; -fentaNYL 100 MCG/2 ML INJECTION (J3010) IV PRN; -fentaNYL 250 MCG/5 ML INJECTION (J3010) As Ordered ONE
[2016-07-09 16:05] LABS: ALBUMIN 3.6 GM/DL (3.2-5.2); ALKALINE PHOSPHATASE 84 U/L (45-117); ALT/SGPT 18 U/L (12-78); ANION GAP 9 MEQ/L (8-16); AST/SGOT 13 U/L (15-37); BILIRUBIN,DIRECT 0.3 MG/DL (0.0-0.2); BILIRUBIN,TOTAL 0.8 MG/DL (0.2-1.0); BLOOD UREA NITROGEN 18 MG/DL (7-18); CALCIUM LEVEL 8.8 MG/DL (8.8-10.2); CARBON DIOXIDE LEVEL 26 MEQ/L (21-32); CHLORIDE LEVEL 109 MEQ/L (98-107); CREATININE FOR GFR 1.15 MG/DL (0.70-1.30); GLOMERULAR FILTRATION RATE > 60.0 (>42); GLUCOSE, FASTING 108 MG/DL (83-110); POTASSIUM SERUM 4.6 MEQ/L (3.5-5.1); SODIUM LEVEL 144 MEQ/L (136-145); TOTAL PROTEIN 6.6 GM/DL (6.4-8.2)
[2016-07-09 16:21] LABS: ADD MORPHOLOGY? YES; BASO # 0.2 K/mm3 (0.0-0.2); BASO % 3.2 % (0.0-1.0); EOS # 0.2 K/mm3 (0.0-0.50); EOS % 3.1 % (0.0-3.0); LARGE UNSTAINED CELL # 0.1 K/mm3 (0.0-0.4); LARGE UNSTAINED CELL % 1.7 % (0.0-4.0); LYMPH # 1.4 K/mm3 (1.5-4.5); LYMPH % 21.3 % (24.0-44.0); MEAN CORPUSCULAR HEMOGLOBIN 22.2 pg (27.0-33.0); MEAN CORPUSCULAR HGB CONC 31.8 g/dl (32.0-36.5); MONO # 0.4 K/mm3 (0.0-0.8); NEUTROPHILS # 3.9 K/mm3 (1.8-7.7); NEUTROPHILS % 63.7 % (36.0-66.0); PLATELET COUNT, AUTOMATED 204 k/mm3 (150-450); WHITE BLOOD COUNT 6.1 K/mm3 (4.0-10.0)
[2016-07-09 19:28] LABS: ANISOCYTOSIS 1+; MICROCYTOSIS 3+
[2016-07-09 19:29] LABS: OVALOCYTES 1+; POIKILOCYTOSIS 1+
[2016-07-09 19:30] LABS: SCHISTOCYTES 1+; TEAR DROP CELLS 1+
[2016-07-09 19:32] LABS: BURR CELLS 1+
== END ==
LOC: M LABDRAW1 15:30
PROVIDERS: ATTEND Urology
DX: C67.1 Malignant neoplasm of dome of bladder (principal)

== ENCOUNTER → 2016-08-19 | Outpatient (CLI) | payer MEDICARE ==
[2016-08-19 10:12] LABS: BASO % 0.4 % (0.0-1.0); EOS # 0.1 K/mm3 (0.0-0.50); EOS % 1.8 % (0.0-3.0); LARGE UNSTAINED CELL % 1.1 % (0.0-4.0); LYMPH # 0.9 K/mm3 (1.5-4.5); MEAN CORPUSCULAR HEMOGLOBIN 22.4 pg (27.0-33.0); MEAN CORPUSCULAR HGB CONC 31.8 g/dl (32.0-36.5); MEAN CORPUSCULAR VOLUME 70.5 fl (80.0-96.0); MONO # 0.1 K/mm3 (0.0-0.8); MONO % 1.1 % (0.0-5.0); NEUTROPHILS # 3.2 K/mm3 (1.8-7.7); NEUTROPHILS % 74.7 % (36.0-66.0); PLATELET COUNT, AUTOMATED 100 k/mm3 (150-450); RED CELL DISTRIBUTION WIDTH 14.9 % (11.5-14.5); WHITE BLOOD COUNT 4.2 K/mm3 (4.0-10.0)
[2016-08-19 10:25] LABS: ALBUMIN 3.3 GM/DL (3.2-5.2); ALBUMIN/GLOBULIN RATIO 1.03 (1.00-1.93); BILIRUBIN,TOTAL 0.5 MG/DL (0.2-1.0); CALCIUM LEVEL 9.3 MG/DL (8.8-10.2); CREATININE FOR GFR 1.28 MG/DL (0.70-1.30); GLOMERULAR FILTRATION RATE 57.9 (>42); POTASSIUM SERUM 4.8 MEQ/L (3.5-5.1); TOTAL PROTEIN 6.5 GM/DL (6.4-8.2)
== END ==
LOC: M SMT 07:58
PROVIDERS: ATTEND Internal Medicine Hematology & Oncology
DX: C67.9 Malignant neoplasm of bladder, unspecified (principal)

== ENCOUNTER → 2016-09-08 | Outpatient (REF) | payer MEDICARE ==
[~2016-09-08] MED LIST changes: +ASPI-161 PO; -ASPI1TAB24 PO; +CIPR-249 PO; -CIPR500T89 PO; +TIMO0.5S29 OU; -TIMO5OPD OU
[2016-09-08 11:49] LABS: ADD MANUAL DIFFER YES; MEAN CORPUSCULAR HEMOGLOBIN 23.2 pg (27.0-33.0); MEAN CORPUSCULAR HGB CONC 33.2 g/dl (32.0-36.5); MEAN CORPUSCULAR VOLUME 69.9 fl (80.0-96.0); PLATELET COUNT, AUTOMATED 129 k/mm3 (150-450); RED CELL DISTRIBUTION WIDTH 15.7 % (11.5-14.5); WHITE BLOOD COUNT 2.3 K/mm3 (4.0-10.0)
[2016-09-08 12:48] LABS: ANISOCYTOSIS 2+; EOSINOPHILS 1 % (0-5); HYPOCHROMASIA 1+; MICROCYTOSIS 2+; OVALOCYTES 1+; POIKILOCYTOSIS 1+
== END ==
LOC: M LABDRAW1 11:13
PROVIDERS: ATTEND Internal Medicine Hematology & Oncology
DX: C67.9 Malignant neoplasm of bladder, unspecified (principal)

== ENCOUNTER → 2016-09-08 | Outpatient (REF) | payer MEDICARE ==
[2016-09-08 11:42] LABS: ALBUMIN 3.3 GM/DL (3.2-5.2); ALBUMIN/GLOBULIN RATIO 1.14 (1.00-1.93); ALKALINE PHOSPHATASE 89 U/L (45-117); ALT/SGPT 21 U/L (12-78); ANION GAP 4 MEQ/L (8-16); AST/SGOT 11 U/L (15-37); BILIRUBIN,TOTAL 0.5 MG/DL (0.2-1.0); BLOOD UREA NITROGEN 20 MG/DL (7-18); CALCIUM LEVEL 8.9 MG/DL (8.8-10.2); CARBON DIOXIDE LEVEL 29 MEQ/L (21-32); CHLORIDE LEVEL 106 MEQ/L (98-107); CHOLESTEROL LEVEL 98 MG/DL (<200); CREATININE FOR GFR 1.07 MG/DL (0.70-1.30); GLOMERULAR FILTRATION RATE > 60.0 (>42); GLUCOSE, FASTING 102 MG/DL (83-110); POTASSIUM SERUM 4.8 MEQ/L (3.5-5.1); SODIUM LEVEL 139 MEQ/L (136-145); TOTAL PROTEIN 6.2 GM/DL (6.4-8.2); TRIGLYCERIDES LEVEL 49 MG/DL (<150)
== END ==
LOC: M LABDRAW1 11:14
PROVIDERS: ATTEND Physician Assistant
DX: I25.10 Atherosclerotic heart disease of native coronary artery without angina pectoris (principal); I25.5 Ischemic cardiomyopathy; E78.00 Pure hypercholesterolemia, unspecified; C67.9 Malignant neoplasm of bladder, unspecified

== ENCOUNTER → 2016-09-16 | Outpatient (CLI) | payer MEDICARE ==
[2016-09-16 14:11] LABS: MEAN CORPUSCULAR HEMOGLOBIN 22.2 pg (27.0-33.0); MEAN CORPUSCULAR HGB CONC 31.2 g/dl (32.0-36.5); MEAN CORPUSCULAR VOLUME 71.2 fl (80.0-96.0); RED CELL DISTRIBUTION WIDTH 19.1 % (11.5-14.5); WHITE BLOOD COUNT 6.5 K/mm3 (4.0-10.0)
[2016-09-16 15:56] LABS: ALBUMIN 3.5 GM/DL (3.2-5.2); ANION GAP 6 MEQ/L (8-16); BLOOD UREA NITROGEN 25 MG/DL (7-18); CALCIUM LEVEL 8.5 MG/DL (8.8-10.2); CARBON DIOXIDE LEVEL 26 MEQ/L (21-32); CHLORIDE LEVEL 107 MEQ/L (98-107); CREATININE FOR GFR 1.15 MG/DL (0.70-1.30); GLOMERULAR FILTRATION RATE > 60.0 (>42); GLUCOSE, FASTING 129 MG/DL (83-110); MAGNESIUM LEVEL 2.3 MG/DL (1.8-2.4); PHOSPHORUS LEVEL 3.2 MG/DL (2.5-4.9); POTASSIUM SERUM 4.7 MEQ/L (3.5-5.1); SODIUM LEVEL 139 MEQ/L (136-145)
== END ==
LOC: M WUC 10:03
PROVIDERS: ATTEND Physician Assistant
DX: Z51.81 Encounter for therapeutic drug level monitoring (principal); Z79.01 Long term (current) use of anticoagulants; I48.91 Unspecified atrial fibrillation

== ENCOUNTER → 2016-10-06 | Outpatient (REF) | payer MEDICARE ==
[2016-10-06 10:53] LABS: ADD MANUAL DIFFER YES; MEAN CORPUSCULAR HEMOGLOBIN 22.5 pg (27.0-33.0); MEAN CORPUSCULAR HGB CONC 31.2 g/dl (32.0-36.5); MEAN CORPUSCULAR VOLUME 72.1 fl (80.0-96.0); PLATELET COUNT, AUTOMATED 162 k/mm3 (150-450); RED CELL DISTRIBUTION WIDTH 19.5 % (11.5-14.5); WHITE BLOOD COUNT 2.4 K/mm3 (4.0-10.0)
[2016-10-06 11:45] LABS: ANISOCYTOSIS 2+; BANDS 2 % (< 11); BASOPHILS 1 % (0-4); HYPOCHROMASIA 2+; MICROCYTOSIS 2+; OVALOCYTES 1+; POIKILOCYTOSIS 1+
[2016-10-06 11:47] LABS: POLYCHROMASIA 1+
== END ==
LOC: M LABDRAW1 10:37
PROVIDERS: ATTEND Internal Medicine Hematology & Oncology
DX: C67.9 Malignant neoplasm of bladder, unspecified (principal)

== ENCOUNTER → 2016-10-28 | Outpatient (REF) | payer MEDICARE ==
[2016-10-28 12:32] LABS: BASO % 0.3 % (0.0-1.0); EOS % 1.6 % (0.0-3.0); LARGE UNSTAINED CELL % 2.1 % (0.0-4.0); LYMPH # 0.6 K/mm3 (1.5-4.5); LYMPH % 41.2 % (24.0-44.0); MEAN CORPUSCULAR HEMOGLOBIN 23.5 pg (27.0-33.0); MEAN CORPUSCULAR HGB CONC 31.8 g/dl (32.0-36.5); MEAN CORPUSCULAR VOLUME 73.8 fl (80.0-96.0); MONO % 0.9 % (0.0-5.0); NEUTROPHILS # 0.7 K/mm3 (1.8-7.7); NEUTROPHILS % 53.8 % (36.0-66.0); RED CELL DISTRIBUTION WIDTH 18.6 % (11.5-14.5); WHITE BLOOD COUNT 1.4 K/mm3 (4.0-10.0)
[2016-10-28 12:44] LABS: PLATELET COUNT, AUTOMATED 60 k/mm3 (150-450)
== END ==
LOC: M LABDRAW1 11:42
PROVIDERS: ATTEND Internal Medicine Hematology & Oncology
DX: C67.9 Malignant neoplasm of bladder, unspecified (principal)

== ENCOUNTER → 2016-11-03 | Outpatient (REF) | payer MEDICARE ==
[2016-11-03 09:46] LABS: ADD MANUAL DIFFER YES; MEAN CORPUSCULAR HEMOGLOBIN 23.4 pg (27.0-33.0); MEAN CORPUSCULAR HGB CONC 31.6 g/dl (32.0-36.5); MEAN CORPUSCULAR VOLUME 74.2 fl (80.0-96.0); PLATELET COUNT, AUTOMATED 270 k/mm3 (150-450); RED CELL DISTRIBUTION WIDTH 20.1 % (11.5-14.5); WHITE BLOOD COUNT 3.1 K/mm3 (4.0-10.0)
[2016-11-03 10:27] LABS: BASOPHILS 1 % (0-4); EOSINOPHILS 2 % (0-5); OVALOCYTES 1+; POIKILOCYTOSIS 2+
[2016-11-03 10:28] LABS: ANISOCYTOSIS 2+; HYPOCHROMASIA 1+; MICROCYTOSIS 1+; SCHISTOCYTES 1+
[2016-11-03 10:29] LABS: GIANT PLATELETS 1+
== END ==
LOC: M LABDRAW1 07:38
PROVIDERS: ATTEND Internal Medicine Hematology & Oncology
DX: C67.9 Malignant neoplasm of bladder, unspecified (principal)

== ENCOUNTER → 2017-02-01 | Outpatient (CLI) | payer MEDICARE ==
--- NOTE | 2017-02-02 07:35 | RADONC ---
RADIATION ONCOLOGY CONSULTATION NOTE DATE: 02/01/2017 CHART NUMBER: [id number] DIAGNOSIS: Bladder cancer. STAGE: II, T2N0M0. ECOG PERFORMANCE STATUS: 0. CONSULTATION NOTE: Mr. 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 HISTORY OF PRESENT ILLNESS: The patient was in his usual state of health until earlier this year when he began having some hematuria. He was seen by the urologist Dr. Watts and a mass was found in the dome of his bladder. On 06/28/2016, the patient underwent transurethral resection of his bladder tumor which was greater than 5 cm. Pathology revealed a urothelial carcinoma with squamous cell differentiation and invasion of the muscularis propria. The patient was then seen by Dr. Macedo and pathology was reviewed showing papillary urothelial carcinoma with sarcomatoid features and a foci of squamous differentiation. The patient was subsequently seen by Dr. Cohen as well as Dr. Macedo who recommended radical cystectomy after initial neoadjuvant chemotherapy. The patient underwent four cycles of cisplatin and gemcitabine. His last chemo was 10/21/2016. Restaging workup failed to show any evidence of disease. On 12/16/2016, cystoscopy and bladder biopsies showed partially eroded bladder saldaña with chronic inflammation and reactive changes. No evidence of residual tumor was seen. The patient decided against cystectomy and wishes to undergo definitive chemoradiation for bladder sparing. He is now presenting to me for discussion of that. PAST MEDICAL HISTORY: The patient's past medical history is positive for cataracts, diverticulitis, CO, hypercholesterolemia, arthritis, hypertension, an irregular heartbeat, and a lung nodule. The lung nodule was biopsied on 07/30/2016 and showed to be nonmalignant. In addition, the patient underwent a tonsillectomy, an inguinal hernia repair and coronary angioplasty. SOCIAL HISTORY: The patient quit smoking in 1990. He had smoked one pack of cigarettes per day for 20 years. He does not abuse alcohol. ALLERGIES: The patient is allergic to SULFA DRUGS. FAMILY HISTORY: The patient's family history is negative for bladder cancer or other malignancies. REVIEW OF SYSTEMS: The patient's review of systems is positive for some hearing loss, but is otherwise noncontributory. Denies nausea, vomiting, fevers, chills, night sweats, diplopia, headaches, anxiety or depression, anorexia, weight loss, visual disturbances, chest pain, urinary or bowel difficulties, bone pain, or neurological problems. PHYSICAL EXAMINATION: The patient is a well-developed, well-nourished male in no acute distress. HEENT exam is normocephalic, atraumatic. Extraocular movements are intact. There is no palpable cervical, supraclavicular, infraclavicular, axillary, or inguinal lymphadenopathy present. Lungs are clear to auscultation and percussion. Heart has a regular rate and rhythm. Abdomen is benign with no hepatosplenomegaly, masses, or tenderness. Rectal examination reveals a normal anal sphincter tone. Skeletal examination reveals no tenderness to pressure or percussion of the bony skeleton. Extremities reveal no clubbing, cyanosis, or edema. Neurologic exam is grossly intact, as is the remainder of the physical examination. ASSESSMENT: I had a lengthy discussion with this patient regarding his therapeutic options. I explained him that the preferred choice of treatment would be cystectomy at this time. The patient does not wish to undergo cystectomy and therefore chemoradiation for bladder sparing is a possibility. We did review the guidelines and the patient's family is well aware of them. I have discussed with the patient in detail the potential benefits as well as possible acute and chronic sequelae of external beam radiation therapy. We discussed logistics of treatment planning, simulation and subsequent fractionated daily radiation treatments. I have scheduled the patient for the next available simulation slot and radiation treatments will begin subsequently. The patient's family has contacted the medical oncology office and we will attempt to get him ready to set up for chemoradiation to start on February 16. Thank you for allowing us to participate in the care of this very pleasant gentleman. If I could be of any further assistance or provide you with any information, please free to contact me at anytime. As always, warm regards. cc: MD Radha Delgado MD, FACP Marianne Macedo MD
== END ==
LOC: M ONCR 13:01
PROVIDERS: ATTEND Radiology Radiation Oncology
DX: C67.9 Malignant neoplasm of bladder, unspecified (principal)

== ENCOUNTER 2017-02-03 10:30 | Outpatient (RCR) | payer MEDICARE | END 2017-02-27 | LOC: M ONCR 10:30 | DX: C67.1 Malignant neoplasm of dome of bladder (principal) | CPT/HCPCS: 77300 ==

== ENCOUNTER → 2017-02-03 | Outpatient (CLI) | payer MEDICARE | LOC: M RAD 09:35 | PROVIDERS: ATTEND Radiology Radiation Oncology | DX: C67.9 Malignant neoplasm of bladder, unspecified (principal) ==

== ENCOUNTER → 2017-02-15 | Outpatient (REF) | payer MEDICARE ==
[2017-02-15 14:03] LABS: ALBUMIN 3.7 GM/DL (3.2-5.2); ANION GAP 8 MEQ/L (8-16); BLOOD UREA NITROGEN 22 MG/DL (7-18); CALCIUM LEVEL 9.2 MG/DL (8.8-10.2); CARBON DIOXIDE LEVEL 27 MEQ/L (21-32); CHLORIDE LEVEL 107 MEQ/L (98-107); CREATININE FOR GFR 1.18 MG/DL (0.70-1.30); GLOMERULAR FILTRATION RATE > 60.0 (>42); GLUCOSE, FASTING 104 MG/DL (83-110); PHOSPHORUS LEVEL 3.7 MG/DL (2.5-4.9); POTASSIUM SERUM 4.3 MEQ/L (3.5-5.1); SODIUM LEVEL 142 MEQ/L (136-145)
[2017-02-15 14:11] LABS: MEAN CORPUSCULAR HEMOGLOBIN 21.4 pg (27.0-33.0); MEAN CORPUSCULAR HGB CONC 32.1 g/dl (32.0-36.5); MEAN CORPUSCULAR VOLUME 66.7 fl (80.0-96.0); PLATELET COUNT, AUTOMATED 167 10^3/uL (150-450); RED CELL DISTRIBUTION WIDTH 16.5 % (11.5-14.5); WHITE BLOOD COUNT 5.5 10^3/uL (4.0-10.0)
== END ==
LOC: M LABDRAW1 13:14
PROVIDERS: ATTEND Physician Assistant
DX: I25.5 Ischemic cardiomyopathy (principal); I48.2 Chronic atrial fibrillation

== ENCOUNTER → 2017-02-24 | Outpatient (REF) | payer MEDICARE ==
[2017-02-24 13:36] LABS: BASO % 0.3 % (0.0-1.0); EOS # 0.1 10^3/uL (0.0-0.50); EOS % 2.1 % (0.0-3.0); IMMATURE GRANULOCYTE # 0.1 10^3/uL (0-0); IMMATURE GRANULOCYTE % 0.8 % (0-0); LYMPH # 0.9 10^3/uL (1.5-4.5); LYMPH % 14.5 % (24.0-44.0); MEAN CORPUSCULAR HEMOGLOBIN 20.8 pg (27.0-33.0); MEAN CORPUSCULAR HGB CONC 31.2 g/dl (32.0-36.5); MEAN CORPUSCULAR VOLUME 66.5 fl (80.0-96.0); MONO # 0.2 10^3/uL (0.0-0.8); NEUTROPHILS % 79.3 % (36.0-66.0); PLATELET COUNT, AUTOMATED 154 10^3/uL (150-450); RED CELL DISTRIBUTION WIDTH 15.4 % (11.5-14.5); WHITE BLOOD COUNT 6.3 10^3/uL (4.0-10.0)
== END ==
LOC: M LABDRAW1 11:14
DX: C67.9 Malignant neoplasm of bladder, unspecified (principal)
CPT/HCPCS: 85025

== ENCOUNTER 2017-03-01 11:33 | Outpatient (RCR) | payer MEDICARE | END 2017-03-30 | LOC: M ONCR 11:33 | DX: C67.1 Malignant neoplasm of dome of bladder (principal) | CPT/HCPCS: 77336 ==

== ENCOUNTER → 2017-03-10 | Outpatient (REF) | payer MEDICARE ==
[2017-03-10 15:36] LABS: BASO % 0.6 % (0.0-1.0); EOS # 0.1 10^3/uL (0.0-0.50); EOS % 3.2 % (0.0-3.0); HEMATOCRIT 35.5 % (42.0-52.0); HEMOGLOBIN 11.4 g/dl (14.0-18.0); IMMATURE GRANULOCYTE % 0.3 % (0-0); LYMPH # 0.7 10^3/uL (1.5-4.5); LYMPH % 19.4 % (24.0-44.0); MEAN CORPUSCULAR HEMOGLOBIN 21.2 pg (27.0-33.0); MEAN CORPUSCULAR HGB CONC 32.1 g/dl (32.0-36.5); MEAN CORPUSCULAR VOLUME 66.1 fl (80.0-96.0); MONO # 0.6 10^3/uL (0.0-0.8); MONO % 17.6 % (0.0-5.0); NEUTROPHILS % 58.9 % (36.0-66.0); PLATELET COUNT, AUTOMATED 139 10^3/uL (150-450); RED BLOOD COUNT 5.37 10^6/uL (4.30-6.10); RED CELL DISTRIBUTION WIDTH 18.2 % (11.5-14.5); WHITE BLOOD COUNT 3.4 10^3/uL (4.0-10.0)
== END ==
LOC: M LABDRAW1 15:20
DX: C67.9 Malignant neoplasm of bladder, unspecified (principal)
CPT/HCPCS: 85025

== ENCOUNTER → 2017-03-17 | Outpatient (REF) | payer MEDICARE ==
[2017-03-17 14:36] LABS: BASO % 0.4 % (0.0-1.0); EOS # 0.1 10^3/uL (0.0-0.50); EOS % 1.6 % (0.0-3.0); HEMOGLOBIN 11.9 g/dl (14.0-18.0); IMMATURE GRANULOCYTE % 0.2 % (0-0); LYMPH # 0.6 10^3/uL (1.5-4.5); LYMPH % 10.1 % (24.0-44.0); MEAN CORPUSCULAR HEMOGLOBIN 21.2 pg (27.0-33.0); MEAN CORPUSCULAR HGB CONC 31.3 g/dl (32.0-36.5); MEAN CORPUSCULAR VOLUME 67.6 fl (80.0-96.0); MONO # 0.6 10^3/uL (0.0-0.8); MONO % 10.9 % (0.0-5.0); NEUTROPHILS # 4.3 10^3/uL (1.8-7.7); NEUTROPHILS % 76.8 % (36.0-66.0); PLATELET COUNT, AUTOMATED 146 10^3/uL (150-450); RED BLOOD COUNT 5.62 10^6/uL (4.30-6.10); RED CELL DISTRIBUTION WIDTH 19.6 % (11.5-14.5); WHITE BLOOD COUNT 5.6 10^3/uL (4.0-10.0)
== END ==
LOC: M LABDRAW1 13:39
DX: C67.9 Malignant neoplasm of bladder, unspecified (principal)
CPT/HCPCS: 85025

== ENCOUNTER → 2017-03-24 | Outpatient (REF) | payer MEDICARE ==
[2017-03-24 12:36] LABS: BASO % 0.2 % (0.0-1.0); EOS # 0.2 10^3/uL (0.0-0.50); EOS % 3.1 % (0.0-3.0); HEMATOCRIT 36.9 % (42.0-52.0); HEMOGLOBIN 11.7 g/dl (14.0-18.0); IMMATURE GRANULOCYTE % 0.5 % (0-0); LYMPH # 0.5 10^3/uL (1.5-4.5); LYMPH % 8.2 % (24.0-44.0); MEAN CORPUSCULAR HEMOGLOBIN 21.4 pg (27.0-33.0); MEAN CORPUSCULAR HGB CONC 31.7 g/dl (32.0-36.5); MEAN CORPUSCULAR VOLUME 67.5 fl (80.0-96.0); MONO # 0.7 10^3/uL (0.0-0.8); MONO % 11.8 % (0.0-5.0); NEUTROPHILS # 4.4 10^3/uL (1.8-7.7); NEUTROPHILS % 76.2 % (36.0-66.0); PLATELET COUNT, AUTOMATED 178 10^3/uL (150-450); RED BLOOD COUNT 5.47 10^6/uL (4.30-6.10); RED CELL DISTRIBUTION WIDTH 19.9 % (11.5-14.5); WHITE BLOOD COUNT 5.8 10^3/uL (4.0-10.0)
== END ==
LOC: M LABDRAW1 11:59
DX: C67.9 Malignant neoplasm of bladder, unspecified (principal)
CPT/HCPCS: 85025

== ENCOUNTER → 2017-03-30 | Outpatient (REF) | payer MEDICARE ==
[2017-03-30 11:48] LABS: BASO % 0.4 % (0.0-1.0); EOS # 0.2 10^3/uL (0.0-0.50); EOS % 3.3 % (0.0-3.0); HEMOGLOBIN 11.6 g/dl (14.0-18.0); IMMATURE GRANULOCYTE % 0.4 % (0-0); LYMPH # 0.5 10^3/uL (1.5-4.5); LYMPH % 9.3 % (24.0-44.0); MEAN CORPUSCULAR HEMOGLOBIN 21.6 pg (27.0-33.0); MEAN CORPUSCULAR HGB CONC 32.2 g/dl (32.0-36.5); MEAN CORPUSCULAR VOLUME 66.9 fl (80.0-96.0); MONO # 0.6 10^3/uL (0.0-0.8); MONO % 11.3 % (0.0-5.0); NEUTROPHILS # 3.9 10^3/uL (1.8-7.7); NEUTROPHILS % 75.3 % (36.0-66.0); PLATELET COUNT, AUTOMATED 212 10^3/uL (150-450); RED BLOOD COUNT 5.38 10^6/uL (4.30-6.10); RED CELL DISTRIBUTION WIDTH 20.1 % (11.5-14.5); WHITE BLOOD COUNT 5.1 10^3/uL (4.0-10.0)
== END ==
LOC: M LABDRAW1 11:10
DX: C67.9 Malignant neoplasm of bladder, unspecified (principal)
CPT/HCPCS: 85025

== ENCOUNTER → 2017-04-27 | Outpatient (CLI) | payer MEDICARE | LOC: M ONCR 08:41 | DX: C67.1 Malignant neoplasm of dome of bladder (principal) | CPT/HCPCS: G0463 ==

== ENCOUNTER → 2017-06-27 | Outpatient (REF) | payer MEDICARE ==
[2017-06-27 11:47] LABS: BASO % 0.4 % (0.0-1.0); EOS # 0.1 10^3/uL (0.0-0.50); EOS % 2.6 % (0.0-3.0); HEMATOCRIT 38.9 % (42.0-52.0); HEMOGLOBIN 12.2 g/dl (13.5-17.5); IMMATURE GRANULOCYTE % 0.4 % (0-3.0); LYMPH # 0.6 10^3/uL (1.5-4.5); LYMPH % 11.9 % (24.0-44.0); MEAN CORPUSCULAR HEMOGLOBIN 21.9 pg (27.0-33.0); MEAN CORPUSCULAR HGB CONC 31.4 g/dl (32.0-36.5); MONO # 0.5 10^3/uL (0.0-0.8); MONO % 9.3 % (0.0-5.0); NEUTROPHILS # 3.7 10^3/uL (1.8-7.7); NEUTROPHILS % 75.4 % (36.0-66.0); PLATELET COUNT, AUTOMATED 141 10^3/uL (150-450); RED BLOOD COUNT 5.56 10^6/uL (4.30-6.10)
[2017-06-27 11:59] LABS: ALBUMIN 3.5 GM/DL (3.2-5.2); ALBUMIN/GLOBULIN RATIO 1.06 (1.00-1.93); ALKALINE PHOSPHATASE 81 U/L (45-117); ALT/SGPT 20 U/L (12-78); ANION GAP 7 MEQ/L (8-16); AST/SGOT 13 U/L (7-37); BILIRUBIN,TOTAL 0.9 MG/DL (0.2-1.0); BLOOD UREA NITROGEN 21 MG/DL (7-18); CARBON DIOXIDE LEVEL 26 MEQ/L (21-32); CHLORIDE LEVEL 110 MEQ/L (98-107); GLOMERULAR FILTRATION RATE > 60.0 (>42); GLUCOSE, FASTING 100 MG/DL (70-100); POTASSIUM SERUM 4.6 MEQ/L (3.5-5.1); SODIUM LEVEL 143 MEQ/L (136-145); TOTAL PROTEIN 6.8 GM/DL (6.4-8.2)
== END ==
LOC: M LABDRAW1 09:00
DX: C67.9 Malignant neoplasm of bladder, unspecified (principal)
CPT/HCPCS: 80053

== ENCOUNTER → 2017-06-28 | Outpatient (REF) | payer MEDICARE ==
[2017-06-28 12:43] LABS: HEMATOCRIT 38.8 % (42.0-52.0); HEMOGLOBIN 12.2 g/dl (13.5-17.5); MEAN CORPUSCULAR HEMOGLOBIN 22.1 pg (27.0-33.0); MEAN CORPUSCULAR HGB CONC 31.4 g/dl (32.0-36.5); MEAN CORPUSCULAR VOLUME 70.3 fl (80.0-96.0); PLATELET COUNT, AUTOMATED 144 10^3/uL (150-450); RED BLOOD COUNT 5.52 10^6/uL (4.30-6.10)
== END ==
LOC: M LABDRAW1 10:29
DX: I48.2 Chronic atrial fibrillation (principal)
CPT/HCPCS: 85027

== ENCOUNTER → 2017-08-15 | Outpatient (REF) | payer MEDICARE ==
[2017-08-15 10:43] LABS: BASO % 0.2 % (0.0-1.0); EOS # 0.2 10^3/uL (0.0-0.50); EOS % 3.4 % (0.0-3.0); HEMATOCRIT 36.7 % (42.0-52.0); HEMOGLOBIN 11.7 g/dl (13.5-17.5); IMMATURE GRANULOCYTE % 0.5 % (0-3.0); LYMPH # 0.6 10^3/uL (1.5-4.5); LYMPH % 14.3 % (24.0-44.0); MEAN CORPUSCULAR HEMOGLOBIN 21.6 pg (27.0-33.0); MEAN CORPUSCULAR HGB CONC 31.9 g/dl (32.0-36.5); MEAN CORPUSCULAR VOLUME 67.8 fl (80.0-96.0); MONO # 0.4 10^3/uL (0.0-0.8); MONO % 9.8 % (0.0-5.0); NEUTROPHILS # 3.2 10^3/uL (1.8-7.7); NEUTROPHILS % 71.8 % (36.0-66.0); PLATELET COUNT, AUTOMATED 145 10^3/uL (150-450); RED BLOOD COUNT 5.41 10^6/uL (4.30-6.10); RED CELL DISTRIBUTION WIDTH 17.6 % (11.5-14.5); WHITE BLOOD COUNT 4.4 10^3/uL (4.0-10.0)
[2017-08-15 11:13] LABS: ALBUMIN 3.6 GM/DL (3.2-5.2); ALBUMIN/GLOBULIN RATIO 1.09 (1.00-1.93); ALKALINE PHOSPHATASE 89 U/L (45-117); ALT/SGPT 19 U/L (12-78); ANION GAP 7 MEQ/L (8-16); AST/SGOT 10 U/L (7-37); BILIRUBIN,TOTAL 0.9 MG/DL (0.2-1.0); BLOOD UREA NITROGEN 29 MG/DL (7-18); CALCIUM LEVEL 9.1 MG/DL (8.8-10.2); CARBON DIOXIDE LEVEL 25 MEQ/L (21-32); CHLORIDE LEVEL 110 MEQ/L (98-107); CREATININE FOR GFR 1.25 MG/DL (0.70-1.30); GLOMERULAR FILTRATION RATE 59.3 (>42); GLUCOSE, FASTING 107 MG/DL (70-100); POTASSIUM SERUM 4.4 MEQ/L (3.5-5.1); SODIUM LEVEL 142 MEQ/L (136-145); TOTAL PROTEIN 6.9 GM/DL (6.4-8.2)
== END ==
LOC: M LABDRAW1 10:22
DX: C67.9 Malignant neoplasm of bladder, unspecified (principal)
CPT/HCPCS: 80053

== ENCOUNTER → 2017-09-12 | Outpatient (REF) | payer MEDICARE ==
[2017-09-12 11:35] LABS: BASO % 0.4 % (0.0-1.0); EOS # 0.1 10^3/uL (0.0-0.50); EOS % 2.3 % (0.0-3.0); HEMATOCRIT 38.3 % (42.0-52.0); HEMOGLOBIN 12.4 g/dl (13.5-17.5); IMMATURE GRANULOCYTE % 0.4 % (0-3.0); LYMPH # 0.6 10^3/uL (1.5-4.5); LYMPH % 10.8 % (24.0-44.0); MEAN CORPUSCULAR HEMOGLOBIN 21.8 pg (27.0-33.0); MEAN CORPUSCULAR HGB CONC 32.4 g/dl (32.0-36.5); MEAN CORPUSCULAR VOLUME 67.2 fl (80.0-96.0); MONO # 0.5 10^3/uL (0.0-0.8); MONO % 8.3 % (0.0-5.0); NEUTROPHILS # 4.4 10^3/uL (1.8-7.7); NEUTROPHILS % 77.8 % (36.0-66.0); PLATELET COUNT, AUTOMATED 186 10^3/uL (150-450); RED CELL DISTRIBUTION WIDTH 17.8 % (11.5-14.5); WHITE BLOOD COUNT 5.6 10^3/uL (4.0-10.0)
[2017-09-12 12:08] LABS: ALBUMIN 3.6 GM/DL (3.2-5.2); ALBUMIN/GLOBULIN RATIO 1.06 (1.00-1.93); ALKALINE PHOSPHATASE 93 U/L (45-117); ALT/SGPT 19 U/L (12-78); ANION GAP 8 MEQ/L (8-16); AST/SGOT 11 U/L (7-37); BLOOD UREA NITROGEN 22 MG/DL (7-18); CARBON DIOXIDE LEVEL 25 MEQ/L (21-32); CHLORIDE LEVEL 110 MEQ/L (98-107); CHOLESTEROL LEVEL 92 MG/DL (<200); CHOLESTEROL RISK RATIO 1.769 (<5); CREATININE FOR GFR 1.28 MG/DL (0.70-1.30); GLOMERULAR FILTRATION RATE 57.7 (>42); GLUCOSE, FASTING 109 MG/DL (70-100); HDL CHOLESTEROL 52 MG/DL (>40); LDL CHOLESTEROL 26.6 MG/DL (<100); NON-HDL-C 40 MG/DL; POTASSIUM SERUM 4.6 MEQ/L (3.5-5.1); SODIUM LEVEL 143 MEQ/L (136-145); TRIGLYCERIDES LEVEL 67 MG/DL (<150)
[2017-09-12 14:07] LABS: TOTAL 25(OH) VITAMIN D 34.9 NG/ML (30.0-100.0)
== END ==
LOC: M LABDRAW1 08:03
DX: I10 Essential (primary) hypertension (principal); E78.5 Hyperlipidemia, unspecified; E55.9 Vitamin D deficiency, unspecified
CPT/HCPCS: 80053

== ENCOUNTER → 2017-11-02 | Outpatient (CLI) | payer MEDICARE | LOC: M ONCR 08:37 | DX: C67.1 Malignant neoplasm of dome of bladder (principal) | CPT/HCPCS: G0463 ==

== ENCOUNTER → 2017-12-29 | Outpatient (REF) | payer MEDICARE ==
[2017-12-29 10:43] LABS: ALBUMIN 3.6 GM/DL (3.2-5.2); ALBUMIN/GLOBULIN RATIO 1.13 (1.00-1.93); ALKALINE PHOSPHATASE 83 U/L (45-117); ALT/SGPT 19 U/L (12-78); ANION GAP 7 MEQ/L (8-16); AST/SGOT 14 U/L (7-37); BILIRUBIN,TOTAL 0.9 MG/DL (0.2-1.0); BLOOD UREA NITROGEN 29 MG/DL (7-18); CALCIUM LEVEL 9.2 MG/DL (8.8-10.2); CARBON DIOXIDE LEVEL 26 MEQ/L (21-32); CHLORIDE LEVEL 107 MEQ/L (98-107); CREATININE FOR GFR 1.31 MG/DL (0.70-1.30); GLUCOSE, FASTING 106 MG/DL (70-100); POTASSIUM SERUM 4.5 MEQ/L (3.5-5.1); SODIUM LEVEL 140 MEQ/L (136-145); TOTAL PROTEIN 6.8 GM/DL (6.4-8.2)
== END ==
LOC: M LABDRAW1 10:15
DX: C67.9 Malignant neoplasm of bladder, unspecified (principal)
CPT/HCPCS: 80053

== ENCOUNTER → 2018-03-17 | Outpatient (REF) | payer MEDICARE ==
[~2018-03-17] MED LIST changes: -AMLO10TA2 PO; +AMLO10TA5 PO; +FLOM0.4C39 PO; -FLOM5CAP PO
[2018-03-17 14:20] LABS: BASO % 0.2 % (0.0-1.0); EOS % 0.6 % (0.0-3.0); HEMATOCRIT 40.3 % (42.0-52.0); HEMOGLOBIN 12.8 g/dl (13.5-17.5); LYMPH # 0.8 10^3/uL (1.5-4.5); LYMPH % 14.4 % (24.0-44.0); MEAN CORPUSCULAR HEMOGLOBIN 21.8 pg (27.0-33.0); MEAN CORPUSCULAR HGB CONC 31.8 g/dl (32.0-36.5); MEAN CORPUSCULAR VOLUME 68.8 fl (80.0-96.0); MONO # 0.4 10^3/uL (0.0-0.8); MONO % 8.3 % (0.0-5.0); NEUTROPHILS % 76.1 % (36.0-66.0); PLATELET COUNT, AUTOMATED 211 10^3/uL (150-450); RED BLOOD COUNT 5.86 10^6/uL (4.30-6.10); WHITE BLOOD COUNT 5.2 10^3/uL (4.0-10.0)
[2018-03-17 14:31] LABS: ALBUMIN 3.5 GM/DL (3.2-5.2); BILIRUBIN,TOTAL 0.9 MG/DL (0.2-1.0); CALCIUM LEVEL 9.2 MG/DL (8.8-10.2); CREATININE FOR GFR 1.31 MG/DL (0.70-1.30); POTASSIUM SERUM 4.6 MEQ/L (3.5-5.1); TOTAL PROTEIN 7.1 GM/DL (6.4-8.2)
[2018-03-17 14:32] LABS: TOTAL 25(OH) VITAMIN D 42.7 NG/ML (30.0-100.0)
[2018-03-17 15:50] LABS: HEMOGLOBIN A1c 6.5 %
== END ==
LOC: M LABDRAW1 13:56
PROVIDERS: ATTEND Physician Assistant
DX: I10 Essential (primary) hypertension (principal); E78.5 Hyperlipidemia, unspecified; R73.01 Impaired fasting glucose; E55.9 Vitamin D deficiency, unspecified
CPT/HCPCS: 36415; 80053; 82306; 83036; 85025; G0463

== ENCOUNTER → 2018-06-07 | Outpatient (REF) | payer MEDICARE ==
[~2018-06-07] MED LIST changes: -/ONDA4TA PO; +ONDA-1 PO
== END ==
LOC: M LAB REF 15:21
PROVIDERS: ATTEND Urology
DX: C67.1 Malignant neoplasm of dome of bladder (principal)

== ENCOUNTER → 2018-06-19 | Outpatient (REF) | payer MEDICARE ==
[2018-06-19 10:15] LABS: BASO % 0.4 % (0.0-1.0); EOS # 0.1 10^3/uL (0.0-0.50); EOS % 2.1 % (0.0-3.0); HEMATOCRIT 39.8 % (42.0-52.0); HEMOGLOBIN 12.7 g/dl (13.5-17.5); LYMPH % 18.7 % (24.0-44.0); MEAN CORPUSCULAR HEMOGLOBIN 21.8 pg (27.0-33.0); MEAN CORPUSCULAR HGB CONC 31.9 g/dl (32.0-36.5); MEAN CORPUSCULAR VOLUME 68.3 fl (80.0-96.0); MONO # 0.4 10^3/uL (0.0-0.8); MONO % 8.2 % (0.0-5.0); NEUTROPHILS # 3.7 10^3/uL (1.8-7.7); NEUTROPHILS % 70.2 % (36.0-66.0); PLATELET COUNT, AUTOMATED 153 10^3/uL (150-450); RED BLOOD COUNT 5.83 10^6/uL (4.30-6.10); WHITE BLOOD COUNT 5.2 10^3/uL (4.0-10.0)
[2018-06-19 10:25] LABS: INR 1.08; PROTHROMBIN TIME 14.1 SECONDS (12.1-14.4)
[2018-06-19 10:26] LABS: PARTIAL THROMBOPLASTIN TIME 35.9 SECONDS (25.4-37.6)
== END ==
LOC: M LABDRAW1 09:55
PROVIDERS: ATTEND Physician Assistant
DX: C67.9 Malignant neoplasm of bladder, unspecified (principal)

== ENCOUNTER → 2018-07-07 | Outpatient (REF) | payer MEDICARE ==
[2018-07-07 12:31] LABS: ALBUMIN 3.6 GM/DL (3.2-5.2); BILIRUBIN,TOTAL 0.8 MG/DL (0.2-1.0); CHOLESTEROL RISK RATIO 2.271 (<5); CREATININE FOR GFR 1.29 MG/DL (0.70-1.30); GLOMERULAR FILTRATION RATE 57.1 (>35); MAGNESIUM LEVEL 2.1 MG/DL (1.8-2.4); POTASSIUM SERUM 4.6 MEQ/L (3.5-5.1); TOTAL PROTEIN 6.7 GM/DL (6.4-8.2)
[2018-07-07 12:32] LABS: HEMATOCRIT 40.1 % (42.0-52.0); HEMOGLOBIN 12.6 g/dl (13.5-17.5); MEAN CORPUSCULAR HEMOGLOBIN 21.9 pg (27.0-33.0); MEAN CORPUSCULAR HGB CONC 31.4 g/dl (32.0-36.5); MEAN CORPUSCULAR VOLUME 69.6 fl (80.0-96.0); PLATELET COUNT, AUTOMATED 153 10^3/uL (150-450); RED BLOOD COUNT 5.76 10^6/uL (4.30-6.10); WHITE BLOOD COUNT 4.1 10^3/uL (4.0-10.0)
== END ==
LOC: M LABDRAW1 11:54
PROVIDERS: ATTEND Physician Assistant
DX: I25.10 Atherosclerotic heart disease of native coronary artery without angina pectoris (principal); I25.5 Ischemic cardiomyopathy; I48.2 Chronic atrial fibrillation; E78.00 Pure hypercholesterolemia, unspecified

== ENCOUNTER → 2018-09-07 | Outpatient (REF) | payer MEDICARE ==
[~2018-09-07] MED LIST changes: +ELIQ5TAB; +MULTCAP PO
[2018-09-07 18:14] LABS: CALCIUM LEVEL 8.6 MG/DL (8.8-10.2); CREATININE FOR GFR 1.33 MG/DL (0.70-1.30); GLOMERULAR FILTRATION RATE 55.1 (>35); POTASSIUM SERUM 4.3 MEQ/L (3.5-5.1)
[2018-09-07 18:22] LABS: HEMATOCRIT 39.5 % (42.0-52.0); HEMOGLOBIN 12.5 g/dl (13.5-17.5); MEAN CORPUSCULAR HEMOGLOBIN 22.2 pg (27.0-33.0); MEAN CORPUSCULAR HGB CONC 31.6 g/dl (32.0-36.5); MEAN CORPUSCULAR VOLUME 70.3 fl (80.0-96.0); PLATELET COUNT, AUTOMATED 165 10^3/uL (150-450); RED BLOOD COUNT 5.62 10^6/uL (4.30-6.10); WHITE BLOOD COUNT 5.1 10^3/uL (4.0-10.0)
== END ==
LOC: M LABDRAW1 14:02
PROVIDERS: ATTEND Physician Assistant
DX: I49.5 Sick sinus syndrome (principal)

== ENCOUNTER 2018-09-13 11:11 | Day surgery (SDC) | payer MEDICARE ==
[~2018-09-13] VITALS: Ht 185.4 cm; Wt 110.7 kg
[~2018-09-13 11:11] MED LIST changes: +LIDOCAINE 1% MDV 20ML VIAL SQ PRN; +LR 1,000 ML IV ONE; -MULTCAP PO; +ceFAZolin SOD 1 GM in D5W MINI-BAG PLUS 50 ML IV ONE
[2018-09-13] MEDS ORDERED: LIDOCAINE 1% SDV INJ 30 ML VIAL As Ordered ONE (13:03)
[2018-09-13] MEDS ORDERED: BACITRACIN PWD 50,000 UNITS VIAL As Ordered ONE (13:04)
[2018-09-13] MEDS ORDERED: ISOVUE-300 61% 50ML VIAL (Q9967) As Ordered ONE (13:04)
[2018-09-13] MEDS ORDERED: AMIODARONE HCL 360 MG/200 ML PREMIXED BAG (NEXTERONE) As Ordered ONE (13:06)
[2018-09-13] MEDS ORDERED: fentaNYL 100 MCG/2 ML INJECTION (J3010) As Ordered ONE (13:35)
[2018-09-13] MEDS ORDERED: ONDANSETRON 4MG/2ML VIAL (J2405) As Ordered ONE (13:35)
[2018-09-13] MEDS ORDERED: MIDAZOLAM INJ 2 MG/2 ML VIAL (J2250) As Ordered ONE (13:35)
[2018-09-13] MEDS ORDERED: LIDOCAINE 2% INJ 100 MG/5 ML SDV (FOR ANES.) As Ordered ONE (13:35)
[2018-09-13] MEDS ORDERED: PROPOFOL 200 MG/20 ML VIAL As Ordered ONE (13:35)
[2018-09-13] MEDS ORDERED: MULTCAP PO (14:45)
[2018-09-13] MEDS ORDERED: NITROGLYCERIN 0.4 MG SUBL TABLET SL PRN (14:45)
--- NOTE | 2018-09-13 15:27 | RO ---
DATE OF PROCEDURE: 09/13/2018 PREOPERATIVE DIAGNOSES 1. Intermittent high-grade arteriovenous (AV) block. 2. Chronic atrial fibrillation. POSTOPERATIVE DIAGNOSES: 1. Intermittent high-grade arteriovenous (AV) block. 2. Chronic atrial fibrillation. PROCEDURE: Implantation of single chamber permanent pacemaker. IMPLANTING NURSE STAFF: Dr. Phani Hoover. ANESTHESIOLOGIST: Dr. López TYPE OF ANESTHESIA: Monitored local anesthesia. CLINICAL SUMMARY: This 82-year-old father of two, retired resident of [place] is well-known to my cardiology practice with ischemic, hypertensive, and valvular heart disease complicated by abnormal EKG, chronic atrial fibrillation and recently detected intermittent high-grade AV block. He had been recently complaining of increasing ease of fatigue and dyspnea prompting a Holter monitor that documented atrial fibrillation with markedly slow ventricular responses and pauses throughout the 24 hours of monitoring without negative chronotropic therapy. There was rare low grade ectopic activity. His rate was as low as 30 beats per minute (bpm) during wakeful hours and there were 1070 more than 2.5-second pauses, the longest 3.8 seconds. In light of this, his current arrangements were made for a single chamber pacemaker implantation. He has been free of any awareness of his heart action or actual syncope. Denies claudication. On his current oral anticoagulation, he has been free of embolic phenomenon. Pleasant bright elderly male mildly overweight. Laying comfortably. Heart rate 52 bpm and irregular, blood pressure 132/76. No pallor or cyanosis. Normal oral moisture. Trachea midline. Jugular veins 3 cm above the sternal angle. Slightly increased anteroposterior chest diameter with good air entry over both lung butt and no abnormal pulmonary adventitious sounds. Apical impulse not palpable. Heart sounds were variable with his right atrial fibrillation. No audible gallop or murmur despite known mild to moderate aortic valvular sclerosis with mild to moderate insufficiency and mild mitral annular calcification and mild insufficiency. Soft abdomen with no current dependent edema. Slightly reduced peripheral pulses. EKG was normal September 01, 2018 showed underlying atrial fibrillation/flutter with a slow ventricular response averaging 51 bpm. Isolated PVCs versus [place] phenomenon, low voltages with QS pattern in V1-V2, body habitus versus pulmonary disease but could not rule out prior septal infarction, nonspecific ST/T-wave abnormalities. CT CHEST: March 2018 showed mild cardiomegaly with multiple bilateral lung nodules that have been stable from prior examinations. No new suspicious lung lesions. Blood work July 07, 2018 showed a hemoglobin of 12.9. Normal white blood cell count and platelet count. Electrolytes were normal. Potassium 4.6, BUN 27, creatinine 1.29, random glucose 109, albumin 3.6, magnesium 2.1 DESCRIPTION OF PROCEDURE: The patient, in the fasting state, having signed informed consent and having received Ancef 2 grams IV premedication, was taken to the operating theater. Numerous skin electrodes were applied to facilitate continuous electrocardiographic monitoring. The left subclavian region was prepped and draped in usual fashion and the skin was infiltrated with 1% Xylocaine. The left clearly vein was catheterized using the micropuncture technique. A 5-cm linear incision was made several centimeters below and parallel to the left clavicle. Careful dissection was performed down to the level of the pectoralis fascia and a pocket was fashioned below the level of the incision line. A single bipolar active fixation screw-in steroid-eluding pacing lead was then positioned to the distal right ventricular septum under fluoroscopic electrocardiographic control. The right ventricular lead ([employer] model number QUP9384V/58, serial number [id number]. Measurements were: Stimulation threshold 0.9, V/0.4 mms/impedance 785 ohms. The capital R wave amplitude measured 7.6 mV. This lead was secured in position with a sleeve sutured at the insertion site. It was then connected to a single chamber pulse generator ([employer] - [employer]urity, MRI compatible model number CF1409, serial number [id number]), appropriate, VVI pacing was documented. The generator was placed and the pocket secured in position with a suture through the upper right-hand corner of the proxy header. The subcutaneous tissues were then approximated using a running chromic suture and skin was closed using jack. Dry dressing was applied. The patient was returned to recovery room in good condition. ESTIMATED BLOOD LOSS: 10 mL. No apparent complications. Postoperative EKG shows underlying atrial fibrillation with consistent ventricular pacing at 60 bpm. Paced QRS complexes having left axis deviation and left bundle branch block pattern in keeping with distal right ventricular septal stimulation. His portable upright chest x-ray postoperatively showed good lead position with no pneumothorax. Our plan is to monitor him on telemetry overnight. He will receive an additional three doses of Ancef 1 gram every 8 hours A followup PA left lateral chest x-ray and EKG will be performed in the morning and his device will be interrogated just prior to his tentative discharge. FINAL DIAGNOSES: 1. Intermittent high-grade AV block with effort dyspnea and fatigue. 2. Chronic atrial fibrillation. 3. Abnormal EKG. 4. Hypertensive heart disease (benign without heart failure). 5. 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 DISPOSITION: Tomorrow we will allow him to be discharged with instructions to perform only light activities of daily living with his left arm until his jack are removed in my office in 7-10 days time. We will resume his customary no added salt diet. His medications will resume: Amlodipine 5 mg daily, Lipitor or 20 mg nightly, captopril 25 mg twice a day, Flonase inhaler each nostril once daily, multivitamin one tablet daily, Viagra 100 mg tablets by mouth 45 minutes prior to sex as needed, nitroglycerin 0.4 mg SL every 5 minutes as needed chest pain and eye drops dorzolamide/timolol 22.3 - 6.80 mg/mL one drop each eye twice a day. His Eliquis will be resumed September 15, 2018 at 1800. He has been requested to avoid getting his incision wet until his jack are removed. Should he notice any abnormal erythema, swelling or discharge he has been encouraged to contact our office promptly.
[2018-09-13 15:30] VITALS: BP 132/88
[2018-09-13] MEDS: ACETAMINOPHEN TAB 650MG DOSE (2X325MG) PO PRN (15:59)
--- NOTE | 2018-09-13 16:07 | REP ---
Portable chest x-ray: Single view. History: Post pacemaker implant. Comparison study: March 02, 2013. Findings: A unipolar pacemaker is seen in place via the left subclavian region with intact right ventricular lead position. There is no evidence of pneumothorax. Moderate cardiac enlargement is observed. Pulmonary vasculature is not increased. Pleural angles are sharp. Lung butt are clear. Impression: Moderate cardiomegaly with pacemaker. No complication is identified. Electronically Signed by Ernie Shaw MD 09/13/2018 02:51 P
[2018-09-13 20:00] VITALS: BP 130/74
[2018-09-13] MEDS: ceFAZolin SOD 1 GM in D5W MINI-BAG PLUS 50 ML IV SCH (20:11)
[2018-09-13] MEDS ORDERED: ATORVASTATIN 20 MG TAB PO SCH (21:00)
--- NOTE | 2018-09-13 22:18 | ECGEPIP ---
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
[2018-09-13 23:59] VITALS: BP 101/55
[2018-09-14] VITALS: BP 101/55
[2018-09-14 04:00] VITALS: BP 144/65
[2018-09-14] MEDS: ceFAZolin SOD 1 GM in D5W MINI-BAG PLUS 50 ML IV SCH ×2 (05:35→12:47)
[2018-09-14 08:00] VITALS: BP 138/66
[2018-09-14] MEDS: ACETAMINOPHEN TAB 650MG DOSE (2X325MG) PO PRN ×2 (08:14→17:33)
[2018-09-14 08:16] VITALS: BP 138/66
[2018-09-14] MEDS ORDERED: amLODIPine 5 MG TAB PO SCH (09:00)
--- NOTE | 2018-09-14 09:00 | REP ---
PA and lateral chest: Comparison is the portable chest dated 09/13/2018. There is no pneumothorax or hemothorax. The lung butt are clear. The cardiac size is upper normal. The rowan, mediastinum, skeletal structures are unremarkable for patient age. There is a single lead pacemaker entering from left, unchanged. There are skin jack adjacent to the pacemaker power pack. Electronically Signed by Sean John MD 09/14/2018 08:52 A
[2018-09-14 12:00] VITALS: BP 142/66
[2018-09-14 16:00] VITALS: BP 144/68
--- NOTE | 2018-09-14 19:04 | ECGEPIP ---
[facility] Test Date: 2018-09-14 Pat Name: ODIN SEQUEIRA Department: Room: [place] [address] Gender: Male [employer] Tuber: DAMARI : 1935 Requested By: Phani Hoover Order Number: [id number] Reading MD: Phani Hoover Measurements Intervals [place] Rate: 70 P: [place]: -1 QRS: 36 QRSD: 101 T: 89 QT: 413 QTc: 447 Interpretive Statements Incorrect precordial lead placement Underlying atrial rhythm - sinus? AV dissociation with accelerated junctional escape rhythm Somewhat low Limb voltageWith slow precordial R-wave progression Nonspecific ST/T-wave abnormalities. Comparing today's study with yesterday, increased spontaneous ventricular activity with suppression of ventricular pacing Electronically Signed on 09-14-2018 19:04:41 EDT by Phani Hoover
== END 2018-09-14 17:50 | disposition home or self-care (01) ==
LOC: M SDC 11:11 → M PCU 15:24 → M SDC 09-14 17:50
PROVIDERS: ATTEND Internal Medicine Cardiovascular Disease
DX: I48.2 Chronic atrial fibrillation (principal); I44.1 Atrioventricular block, second degree; I11.9 Hypertensive heart disease without heart failure; I49.5 Sick sinus syndrome; I08.0 Rheumatic disorders of both mitral and aortic valves; I25.2 Old myocardial infarction; Z79.01 Long term (current) use of anticoagulants; Z79.899 Other long term (current) drug therapy; Z88.2 Allergy status to sulfonamides; Z91.030 Bee allergy status; Z85.51 Personal history of malignant neoplasm of bladder; Z92.3 Personal history of irradiation; Z92.21 Personal history of antineoplastic chemotherapy
CPT/HCPCS: 33207; 71045; 71046; 76000; 93005; 96374; 96376; C1786; C1898; J0690; J2250; J2405; J3010

== ENCOUNTER → 2018-09-29 | Outpatient (REF) | payer MEDICARE ==
[~2018-09-29] MED LIST changes: -LIDOCAINE 1% MDV 20ML VIAL SQ PRN; -LR 1,000 ML IV ONE; +MULTCAP PO; -ceFAZolin SOD 1 GM in D5W MINI-BAG PLUS 50 ML IV ONE
[2018-09-29 12:43] LABS: BASO % 0.4 % (0.0-1.0); EOS # 0.1 10^3/uL (0.0-0.50); EOS % 2.6 % (0.0-3.0); HEMATOCRIT 39.5 % (42.0-52.0); HEMOGLOBIN 12.6 g/dl (13.5-17.5); LYMPH # 0.9 10^3/uL (1.5-4.5); LYMPH % 18.5 % (24.0-44.0); MEAN CORPUSCULAR HEMOGLOBIN 21.9 pg (27.0-33.0); MEAN CORPUSCULAR HGB CONC 31.9 g/dl (32.0-36.5); MEAN CORPUSCULAR VOLUME 68.7 fl (80.0-96.0); MONO # 0.5 10^3/uL (0.0-0.8); MONO % 9.7 % (0.0-5.0); NEUTROPHILS # 3.4 10^3/uL (1.8-7.7); NEUTROPHILS % 68.6 % (36.0-66.0); PLATELET COUNT, AUTOMATED 179 10^3/uL (150-450); RED BLOOD COUNT 5.75 10^6/uL (4.30-6.10)
[2018-09-29 12:58] LABS: HEMOGLOBIN A1c 6.2 %
[2018-09-29 13:13] LABS: ALBUMIN 3.8 GM/DL (3.2-5.2); BILIRUBIN,TOTAL 0.9 MG/DL (0.2-1.0); CALCIUM LEVEL 8.9 MG/DL (8.8-10.2); CHOLESTEROL RISK RATIO 1.823 (<5); CREATININE FOR GFR 1.34 MG/DL (0.70-1.30); GLOMERULAR FILTRATION RATE 54.6 (>35); POTASSIUM SERUM 4.4 MEQ/L (3.5-5.1); TOTAL PROTEIN 7.1 GM/DL (6.4-8.2)
[2018-09-29 13:22] LABS: TOTAL 25(OH) VITAMIN D 35.5 NG/ML (30.0-100.0)
== END ==
LOC: M LABDRAW1 08:48
PROVIDERS: ATTEND Family Medicine
DX: E78.5 Hyperlipidemia, unspecified (principal); I10 Essential (primary) hypertension; R73.01 Impaired fasting glucose; E55.9 Vitamin D deficiency, unspecified

== ENCOUNTER → 2019-01-05 | Outpatient (REF) | payer MEDICARE ==
[2019-01-05 14:07] LABS: HEMATOCRIT 41.1 % (42.0-52.0); HEMOGLOBIN 12.7 g/dl (13.5-17.5); MEAN CORPUSCULAR HGB CONC 30.9 g/dl (32.0-36.5); MEAN CORPUSCULAR VOLUME 71.2 fl (80.0-96.0); PLATELET COUNT, AUTOMATED 158 10^3/uL (150-450); RED BLOOD COUNT 5.77 10^6/uL (4.30-6.10); WHITE BLOOD COUNT 4.8 10^3/uL (4.0-10.0)
[2019-01-05 14:08] LABS: CALCIUM LEVEL 8.9 MG/DL (8.8-10.2); CREATININE FOR GFR 1.26 MG/DL (0.70-1.30); GLOMERULAR FILTRATION RATE 58.5 (>35); POTASSIUM SERUM 4.7 MEQ/L (3.5-5.1)
== END ==
LOC: M LABDRAW1 13:36
PROVIDERS: ATTEND Physician Assistant
DX: I25.5 Ischemic cardiomyopathy (principal); I48.20 Chronic atrial fibrillation, unspecified

== ENCOUNTER → 2019-03-16 | Outpatient (REF) | payer MEDICARE ==
[2019-03-16 19:12] LABS: APPEARANCE, URINE TURBID (CLEAR); BILIRUBIN, URINE AUTO NEGATIVE (NEGATIVE); BLOOD, URINE BLOOD NEGATIVE (NEGATIVE); COLOR, URINE AMBER (YELLOW); GLUCOSE, URINE (UA) AUTO NEGATIVE (NEGATIVE); KETONE, URINE AUTO NEGATIVE (NEGATIVE); LEUKOCYTE ESTERASE, URINE AUTO NEGATIVE (NEGATIVE); NITRITE, URINE AUTO NEGATIVE (NEGATIVE); PROTEIN, URINE AUTO NEGATIVE (NEGATIVE); RBC, URINE AUTO 1 /HPF (0-3); SPECIFIC GRAVITY URINE AUTO 1.019 (1.002-1.035); UROBILINOGEN, URINE AUTO 0.2 mg/dL (0.0-2.0); WBC, URINE AUTO 1 /HPF (0-3)
[2019-03-16 19:13] LABS: BACTERIA, URINE AUTO 3+ (NEGATIVE); SQUAMOUS EPITHELIAL CELL UR AU 0 /HPF (0-6)
== END ==
LOC: M LAB REF 18:20
PROVIDERS: ATTEND Urology
DX: C67.9 Malignant neoplasm of bladder, unspecified (principal); N39.0 Urinary tract infection, site not specified

== ENCOUNTER → 2019-03-23 | Outpatient (REF) | payer MEDICARE ==
[2019-03-23 11:33] LABS: BASO % 0.5 % (0.0-1.0); EOS # 0.3 10^3/uL (0.0-0.5); EOS % 5.6 % (0.0-3.0); HEMATOCRIT 40.7 % (42.0-52.0); HEMOGLOBIN 12.3 g/dl (13.5-17.5); LYMPH # 0.9 10^3/uL (1.5-5.0); MEAN CORPUSCULAR HEMOGLOBIN 21.3 pg (27.0-33.0); MEAN CORPUSCULAR HGB CONC 30.2 g/dl (32.0-36.5); MEAN CORPUSCULAR VOLUME 70.5 fl (80.0-96.0); MONO # 0.4 10^3/uL (0.0-0.8); MONO % 8.4 % (0.0-5.0); NEUTROPHILS # 2.8 10^3/uL (1.5-8.5); PLATELET COUNT, AUTOMATED 180 10^3/uL (150-450); RED BLOOD COUNT 5.77 10^6/uL (4.30-6.10); WHITE BLOOD COUNT 4.4 10^3/uL (4.0-10.0)
[2019-03-23 12:22] LABS: ALBUMIN 3.5 GM/DL (3.2-5.2); BILIRUBIN,TOTAL 0.7 MG/DL (0.2-1.0); CREATININE FOR GFR 1.33 MG/DL (0.70-1.30); GLOMERULAR FILTRATION RATE 54.9 (>35); POTASSIUM SERUM 4.9 MEQ/L (3.5-5.1); TOTAL PROTEIN 6.5 GM/DL (6.4-8.2)
== END ==
LOC: M LABDRAW1 09:56
PROVIDERS: ATTEND Nurse Practitioner
DX: C67.8 Malignant neoplasm of overlapping sites of bladder (principal)

== ENCOUNTER → 2019-07-09 | Outpatient (CLI) | payer MEDICARE ==
[2019-07-09 08:32] LABS: HEMATOCRIT 41.1 % (42.0-52.0); HEMOGLOBIN 13.2 g/dl (13.5-17.5); MEAN CORPUSCULAR HEMOGLOBIN 22.6 pg (27.0-33.0); MEAN CORPUSCULAR HGB CONC 32.1 g/dl (32.0-36.5); MEAN CORPUSCULAR VOLUME 70.5 fl (80.0-96.0); PLATELET COUNT, AUTOMATED 176 10^3/uL (150-450); RED BLOOD COUNT 5.83 10^6/uL (4.30-6.10)
[2019-07-09 08:58] LABS: ALBUMIN 3.5 GM/DL (3.2-5.2); BILIRUBIN,TOTAL 1.3 MG/DL (0.2-1.0); CALCIUM LEVEL 9.4 MG/DL (8.8-10.2); CHOLESTEROL RISK RATIO 1.74 (<5); CREATININE FOR GFR 1.26 MG/DL (0.70-1.30); GLOMERULAR FILTRATION RATE 58.5 (>35); MAGNESIUM LEVEL 2.2 MG/DL (1.8-2.4); POTASSIUM SERUM 4.8 MEQ/L (3.5-5.1); TOTAL PROTEIN 6.7 GM/DL (6.4-8.2)
== END ==
LOC: M LAB 07:35
PROVIDERS: ATTEND Physician Assistant
DX: I25.10 Atherosclerotic heart disease of native coronary artery without angina pectoris (principal); I48.21 Permanent atrial fibrillation; I25.5 Ischemic cardiomyopathy; E78.00 Pure hypercholesterolemia, unspecified

== ENCOUNTER → 2019-08-13 | Outpatient (CLI) | payer MEDICARE ==
[2019-08-13 11:20] LABS: BASO % 0.7 % (0.0-1.0); EOS # 0.2 10^3/uL (0.0-0.5); EOS % 2.6 % (0.0-3.0); HEMATOCRIT 40.8 % (42.0-52.0); HEMOGLOBIN 12.9 g/dl (13.5-17.5); LYMPH % 16.5 % (24.0-44.0); MEAN CORPUSCULAR HEMOGLOBIN 22.4 pg (27.0-33.0); MEAN CORPUSCULAR HGB CONC 31.6 g/dl (32.0-36.5); MEAN CORPUSCULAR VOLUME 70.8 fl (80.0-96.0); MONO # 0.5 10^3/uL (0.0-0.8); NEUTROPHILS # 4.1 10^3/uL (1.5-8.5); NEUTROPHILS % 71.7 % (36.0-66.0); PLATELET COUNT, AUTOMATED 197 10^3/uL (150-450); RED BLOOD COUNT 5.76 10^6/uL (4.30-6.10); WHITE BLOOD COUNT 5.8 10^3/uL (4.0-10.0)
[2019-08-13 11:35] LABS: BLOOD UREA NITROGEN 23 MG/DL (7-18); CALCIUM LEVEL 9.7 MG/DL (8.8-10.2); CARBON DIOXIDE LEVEL 27 MEQ/L (21-32); CHLORIDE LEVEL 107 MEQ/L (98-107); CREATININE FOR GFR 1.15 MG/DL (0.70-1.30); GLOMERULAR FILTRATION RATE > 60.0 (>35); GLUCOSE, FASTING 93 MG/DL (70-100); POTASSIUM SERUM 4.9 MEQ/L (3.5-5.1); SODIUM LEVEL 139 MEQ/L (136-145)
== END ==
LOC: M PLALAB 10:22
PROVIDERS: ATTEND Internal Medicine Cardiovascular Disease
DX: R06.02 Shortness of breath (principal)

== ENCOUNTER → 2019-08-20 | Outpatient (CLI) | payer MEDICARE ==
[~2019-08-20] MED LIST changes: +ASPI81CH33 PO; +DORZ2SOL4; +PLAV1TAB2 PO
== END ==
LOC: M LABSMTC 09:35
PROVIDERS: ATTEND Internal Medicine Cardiovascular Disease
DX: Z03.818 Encounter for observation for suspected exposure to other biological agents ruled out (principal); Z11.59 Encounter for screening for other viral diseases
CPT/HCPCS: C9803; U0003

== ENCOUNTER 2019-08-24 14:27 | Emergency (ER) | payer MEDICARE ==
[~2019-08-24] VITALS: Ht 185.4 cm; Wt 103.9 kg
[~2019-08-24 14:27] MED LIST changes: -ASPI81CH33 PO; -DORZ2SOL4; -PLAV1TAB2 PO
[2019-08-24] MEDS ORDERED: DORZ2SOL4 (14:40)
[2019-08-24] MEDS ORDERED: PLAV1TAB2 PO (14:40)
[2019-08-24] MEDS ORDERED: FLOM0.4C39 PO (14:40)
[2019-08-24] MEDS ORDERED: ASPI81CH33 PO (14:40)
[2019-08-24 17:53] LABS: BASO % 0.5 % (0.0-1.0); EOS # 0.1 10^3/uL (0.0-0.5); EOS % 2.3 % (0.0-3.0); HEMOGLOBIN 12.3 g/dl (13.5-17.5); LYMPH # 0.8 10^3/uL (1.5-5.0); LYMPH % 14.6 % (24.0-44.0); MEAN CORPUSCULAR HEMOGLOBIN 22.2 pg (27.0-33.0); MEAN CORPUSCULAR HGB CONC 31.5 g/dl (32.0-36.5); MEAN CORPUSCULAR VOLUME 70.3 fl (80.0-96.0); MONO # 0.4 10^3/uL (0.0-0.8); MONO % 7.6 % (0.0-5.0); NEUTROPHILS # 4.2 10^3/uL (1.5-8.5); NEUTROPHILS % 74.6 % (36.0-66.0); PLATELET COUNT, AUTOMATED 145 10^3/uL (150-450); RED BLOOD COUNT 5.55 10^6/uL (4.30-6.10); WHITE BLOOD COUNT 5.6 10^3/uL (4.0-10.0)
[2019-08-24 18:04] LABS: INR 1.14; PROTHROMBIN TIME 14.3 SECONDS (11.8-14.0)
[2019-08-24 18:05] LABS: PARTIAL THROMBOPLASTIN TIME 30.7 SECONDS (25.0-38.4)
[2019-08-24 18:20] VITALS: BP 149/66
== END 2019-08-24 18:28 | disposition home or self-care (01) ==
LOC: M ED 14:27
DX: I97.610 Postprocedural hemorrhage of a circulatory system organ or structure following a cardiac catheterization (principal); I25.2 Old myocardial infarction; Z86.73 Personal history of transient ischemic attack (TIA), and cerebral infarction without residual deficits; E78.5 Hyperlipidemia, unspecified; Z85.51 Personal history of malignant neoplasm of bladder; Z79.899 Other long term (current) drug therapy; Z88.2 Allergy status to sulfonamides; Z91.030 Bee allergy status

== ENCOUNTER → 2019-10-25 | Outpatient (REF) | payer MEDICARE ==
[~2019-10-25] MED LIST changes: -AMLO10TA5 PO; +AMLO1TAB25 PO; +ASPI81CH33 PO; +DORZ2SOL4; +PLAV1TAB2 PO
[2019-10-25 15:24] LABS: INR 1.34; PROTHROMBIN TIME 16.9 SECONDS (11.8-14.0)
== END ==
LOC: M LAB REF 13:59
PROVIDERS: ATTEND Physician Assistant
DX: T82.110A Breakdown (mechanical) of cardiac electrode, initial encounter (principal); I48.91 Unspecified atrial fibrillation; Y83.1 Surgical operation with implant of artificial internal device as the cause of abnormal reaction of the patient, or of later complication, without mention of misadventure at the time of the procedure

== ENCOUNTER → 2019-10-29 | Outpatient (REF) | payer MEDICARE ==
[2019-10-29 16:15] LABS: INR 1.64; PROTHROMBIN TIME 19.8 SECONDS (11.8-14.0)
== END ==
LOC: M SHH 15:14
PROVIDERS: ATTEND Physician Assistant
DX: I48.21 Permanent atrial fibrillation (principal)

== ENCOUNTER → 2019-11-14 | Outpatient (CLI) | payer MEDICARE ==
[2019-11-14 11:17] LABS: HEMATOCRIT 28.9 % (42.0-52.0); HEMOGLOBIN 8.9 g/dl (13.5-17.5); MEAN CORPUSCULAR HEMOGLOBIN 22.9 pg (27.0-33.0); MEAN CORPUSCULAR HGB CONC 30.8 g/dl (32.0-36.5); MEAN CORPUSCULAR VOLUME 74.5 fl (80.0-96.0); PLATELET COUNT, AUTOMATED 221 10^3/uL (150-450); RED BLOOD COUNT 3.88 10^6/uL (4.30-6.10); WHITE BLOOD COUNT 4.9 10^3/uL (4.0-10.0)
[2019-11-14 11:19] LABS: CREATININE FOR GFR 1.25 MG/DL (0.70-1.30); GLOMERULAR FILTRATION RATE 58.9 (>35); POTASSIUM SERUM 4.7 MEQ/L (3.5-5.1)
== END ==
LOC: M PLALAB 08:22
PROVIDERS: ATTEND Physician Assistant
DX: Z95.1 Presence of aortocoronary bypass graft (principal); Z79.01 Long term (current) use of anticoagulants

== ENCOUNTER → 2019-11-21 | Outpatient (CLI) | payer MEDICARE ==
[2019-11-21 10:52] LABS: INR 3.28; PROTHROMBIN TIME 34.2 SECONDS (12.5-14.3)
== END ==
LOC: M LAB 09:18
PROVIDERS: ATTEND Physician Assistant
DX: I48.21 Permanent atrial fibrillation (principal)

== ENCOUNTER → 2019-11-21 | Outpatient (CLI) | payer MEDICARE ==
[2019-11-21 10:42] LABS: HEMATOCRIT 31.5 % (42.0-52.0); HEMOGLOBIN 9.7 g/dl (13.5-17.5); MEAN CORPUSCULAR HEMOGLOBIN 22.4 pg (27.0-33.0); MEAN CORPUSCULAR HGB CONC 30.8 g/dl (32.0-36.5); MEAN CORPUSCULAR VOLUME 72.7 fl (80.0-96.0); PLATELET COUNT, AUTOMATED 180 10^3/uL (150-450); RED BLOOD COUNT 4.33 10^6/uL (4.30-6.10)
[2019-11-21 10:59] LABS: CALCIUM LEVEL 8.9 MG/DL (8.8-10.2); CREATININE FOR GFR 1.31 MG/DL (0.70-1.30); GLOMERULAR FILTRATION RATE 55.8 (>35); POTASSIUM SERUM 4.7 MEQ/L (3.5-5.1)
== END ==
LOC: M LAB 09:25
PROVIDERS: ATTEND Physician Assistant
DX: I48.21 Permanent atrial fibrillation (principal); Z95.1 Presence of aortocoronary bypass graft; Z79.899 Other long term (current) drug therapy

== ENCOUNTER → 2019-12-03 | Outpatient (CLI) | payer MEDICARE ==
[2019-12-03 08:07] LABS: INR 1.7; PROTHROMBIN TIME 20.4 SECONDS (12.5-14.3)
== END ==
LOC: M LAB 07:35
PROVIDERS: ATTEND Physician Assistant
DX: I48.21 Permanent atrial fibrillation (principal)

== ENCOUNTER → 2019-12-10 | Outpatient (CLI) | payer MEDICARE ==
[2019-12-10 09:02] LABS: BASO % 0.4 % (0.0-1.0); EOS # 0.2 10^3/uL (0.0-0.5); EOS % 4.3 % (0.0-3.0); HEMATOCRIT 33.5 % (42.0-52.0); HEMOGLOBIN 10.3 g/dl (13.5-17.5); LYMPH # 0.7 10^3/uL (1.5-5.0); LYMPH % 13.4 % (24.0-44.0); MEAN CORPUSCULAR HEMOGLOBIN 22.5 pg (27.0-33.0); MEAN CORPUSCULAR HGB CONC 30.7 g/dl (32.0-36.5); MEAN CORPUSCULAR VOLUME 73.1 fl (80.0-96.0); MONO # 0.5 10^3/uL (0.0-0.8); MONO % 9.3 % (0.0-5.0); NEUTROPHILS # 3.5 10^3/uL (1.5-8.5); NEUTROPHILS % 72.2 % (36.0-66.0); PLATELET COUNT, AUTOMATED 165 10^3/uL (150-450); RED BLOOD COUNT 4.58 10^6/uL (4.30-6.10); WHITE BLOOD COUNT 4.8 10^3/uL (4.0-10.0)
[2019-12-10 09:11] LABS: APPEARANCE, URINE CLEAR (CLEAR); BACTERIA, URINE AUTO NEGATIVE (NEGATIVE); BILIRUBIN, URINE AUTO NEGATIVE (NEGATIVE); BLOOD, URINE BLOOD NEGATIVE (NEGATIVE); COLOR, URINE YELLOW (YELLOW); GLUCOSE, URINE (UA) AUTO NEGATIVE (NEGATIVE); KETONE, URINE AUTO NEGATIVE (NEGATIVE); LEUKOCYTE ESTERASE, URINE AUTO NEGATIVE (NEGATIVE); NITRITE, URINE AUTO NEGATIVE (NEGATIVE); PROTEIN, URINE AUTO 1+ mg/dL (NEGATIVE); RBC, URINE AUTO 3 /HPF (0-3); SPECIFIC GRAVITY URINE AUTO 1.017 (1.002-1.035); SQUAMOUS EPITHELIAL CELL UR AU 0 /HPF (0-6); WBC, URINE AUTO 0 /HPF (0-3)
[2019-12-10 09:19] LABS: INR 1.53; PROTHROMBIN TIME 18.7 SECONDS (12.5-14.3)
[2019-12-10 09:21] LABS: CALCIUM LEVEL 8.7 MG/DL (8.8-10.2); CREATININE FOR GFR 1.26 MG/DL (0.70-1.30); GLOMERULAR FILTRATION RATE 58.3 (>35); POTASSIUM SERUM 4.8 MEQ/L (3.5-5.1)
== END ==
LOC: M LAB 07:54
PROVIDERS: ATTEND Urology
DX: C67.9 Malignant neoplasm of bladder, unspecified (principal); N39.0 Urinary tract infection, site not specified; I48.21 Permanent atrial fibrillation

== ENCOUNTER → 2019-12-10 | Outpatient (CLI) | payer MEDICARE ==
[2019-12-10 09:01] LABS: HEMATOCRIT 33.1 % (42.0-52.0); MEAN CORPUSCULAR HEMOGLOBIN 21.9 pg (27.0-33.0); MEAN CORPUSCULAR HGB CONC 30.2 g/dl (32.0-36.5); MEAN CORPUSCULAR VOLUME 72.4 fl (80.0-96.0); PLATELET COUNT, AUTOMATED 175 10^3/uL (150-450); RED BLOOD COUNT 4.57 10^6/uL (4.30-6.10); WHITE BLOOD COUNT 4.8 10^3/uL (4.0-10.0)
== END ==
LOC: M LAB 07:51
PROVIDERS: ATTEND Physician Assistant
DX: I48.21 Permanent atrial fibrillation (principal)

== ENCOUNTER → 2020-01-07 | Outpatient (CLI) | payer MEDICARE ==
[2020-01-07 07:12] LABS: APPEARANCE, URINE HAZY (CLEAR); BACTERIA, URINE AUTO NEGATIVE (NEGATIVE); BILIRUBIN, URINE AUTO NEGATIVE (NEGATIVE); BLOOD, URINE BLOOD NEGATIVE (NEGATIVE); COLOR, URINE YELLOW (YELLOW); GLUCOSE, URINE (UA) AUTO NEGATIVE (NEGATIVE); KETONE, URINE AUTO NEGATIVE (NEGATIVE); LEUKOCYTE ESTERASE, URINE AUTO NEGATIVE (NEGATIVE); MUCUS, URINE SMALL (NEGATIVE); NITRITE, URINE AUTO NEGATIVE (NEGATIVE); PROTEIN, URINE AUTO 2+ mg/dL (NEGATIVE); RBC, URINE AUTO 1 /HPF (0-3); SPECIFIC GRAVITY URINE AUTO 1.017 (1.002-1.035); SQUAMOUS EPITHELIAL CELL UR AU 0 /HPF (0-6); UROBILINOGEN, URINE AUTO 0.2 mg/dL (0.0-2.0); WBC, URINE AUTO 1 /HPF (0-3)
== END ==
LOC: M LAB 06:49
PROVIDERS: ATTEND Urology
DX: N39.0 Urinary tract infection, site not specified (principal)

== ENCOUNTER → 2020-01-31 | Outpatient (CLI) | payer MEDICARE ==
[2020-01-31 17:39] LABS: HEMATOCRIT 32.4 % (42.0-52.0); HEMOGLOBIN 10.1 g/dl (13.5-17.5); MEAN CORPUSCULAR HEMOGLOBIN 22.1 pg (27.0-33.0); MEAN CORPUSCULAR HGB CONC 31.2 g/dl (32.0-36.5); MEAN CORPUSCULAR VOLUME 70.9 fl (80.0-96.0); PLATELET COUNT, AUTOMATED 185 10^3/uL (150-450); RED BLOOD COUNT 4.57 10^6/uL (4.30-6.10); WHITE BLOOD COUNT 4.8 10^3/uL (4.0-10.0)
[2020-01-31 18:57] LABS: CALCIUM LEVEL 9.1 MG/DL (8.8-10.2); CREATININE FOR GFR 1.34 MG/DL (0.70-1.30); GLOMERULAR FILTRATION RATE 54.3 (>35); POTASSIUM SERUM 5.2 MEQ/L (3.5-5.1)
== END ==
LOC: M PLALAB 11:32
PROVIDERS: ATTEND Physician Assistant
DX: I25.5 Ischemic cardiomyopathy (principal); I49.01 Ventricular fibrillation; I48.21 Permanent atrial fibrillation

== ENCOUNTER → 2020-02-06 | Outpatient (CLI) | payer MEDICARE ==
[2020-02-06 07:40] LABS: CALCIUM LEVEL 9.5 MG/DL (8.8-10.2); CREATININE FOR GFR 1.41 MG/DL (0.70-1.30); GLOMERULAR FILTRATION RATE 51.2 (>35); POTASSIUM SERUM 4.9 MEQ/L (3.5-5.1)
== END ==
LOC: M LAB 06:39
PROVIDERS: ATTEND Urology
DX: C67.9 Malignant neoplasm of bladder, unspecified (principal)

== ENCOUNTER → 2020-02-27 | Outpatient (CLI) | payer MEDICARE ==
--- NOTE | 2020-02-27 14:59 | REP ---
INDICATION: MAL BLADDER CA. COMPARISON: None. TECHNIQUE/RADIOTRACER AND DOSE: 22.0 mCi of Technetium-99m MDP was injected and standard whole-body bone scanning is acquired. FINDINGS: There is uptake in bilateral kidneys and the urinary bladder. There is abnormal uptake in the right hip at the superior margin the femoral head and acetabulum consistent with osteoarthritis. There is mild osteoarthritic uptake in the left hip less prominent than the right. A focus of increased uptake is seen in the greater trochanter of the right hip is well which may be related to the arthropathy. There is increased uptake in the manubrium and sternum current chest CT study demonstrates an ununited median sternotomy. There is mildly increased uptake in the manubrial clavicular articulations bilaterally. Right a little more prominent than left. There is a focus of increased uptake in the right lateral0 10th rib[address] study from February 11, 2020 demonstrates evidence of a rib fracture here. There does not appear to be bone destruction. Mild degenerative uptake is seen in the cervical lumbar and thoracic spine. There is a linear area of sclerosis at this level in the thoracic spine on chest CT study February 11, 2020. This is felt to be compatible with healing fracture. There is no scintigraphic evidence to suggest skeletal metastatic disease. IMPRESSION: Arthritic and degenerative uptake pattern. Ununited median sternotomy shows increased uptake. Healing rib fracture right 10th rib laterally. Evidence of healing wedge compression deformity in the midthoracic spine at approximately T8. No evidence of skeletal metastatic disease.. <Electronically signed by Campos Shaw > 02/27/20 [id number]
== END ==
LOC: M RAD 10:02
PROVIDERS: ATTEND Urology
DX: C67.9 Malignant neoplasm of bladder, unspecified (principal)
CPT/HCPCS: 78306; A9503

== ENCOUNTER 2020-04-26 00:40 | Emergency (ER) | payer MEDICARE ==
[~2020-04-26] VITALS: Ht 185.4 cm; Wt 100.0 kg
[~2020-04-26 00:40] MED LIST changes: -DORZ2SOL4; +DORZ2SOL4 OU; -ELIQ5TAB; +ELIQ5TAB PO
--- OUTSIDE RECORDS SUMMARY | 2020-04-26 00:46 | CCD | Continuity of Care Document ---
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 Name Role Phone Mckayla Ogden PA-C AUTM [phone] Maria Teresa Estrada MD AUTM [phone] Tyrel Jorge MD AUTM [phone] Momo Macedo MD AUTM [phone] Sheldon Bianchi MD AUTM [phone] Amy Cruz AUTM [phone] Harjinder Carvajal MD AUTM [phone] Problems Active Problems Provider Date Coronary arteriosclerosis Stress Nuclear/Reg Treadmill Onset : 12/12/2014 Old myocardial infarction Mckayla Ogden PA-C Onset: 2011 Patient post percutaneous transluminal coronary angiop lasty Mckayla Ogden PA-C Onset: 09/16/2016 Ventricular fibrillation Mckayla Ogden, PA-C Onset: 012 Chronic ischemic heart disease Mckayla Ogden, PA-C Onset: 0 03/19/2011 Essential hypertension Mckayla Ogden, PA-C Onset: 5 Chronic atrial fibrillation Mckayla Ogden, PA-C Onset: 10/30 Aortic valve disorder Mckayla Ogden, PA-C Onset: 09/16/2016 Mitral valve disorder Mckayla Ogden, PA-C Onset: 09/16/2016 Electrocardiogram abnormal Mckayla Ogden PA-C Onset: 03/19 Premature beats Mckayla Ogden PA-C Onset: 03/10/2016 Pure hypercholesterolemia TAWANNA OrozcoC Onset: 2011 Obesity Mckayla Ogden PA-C Onset: 03/19/2011 Dietary management surveillance Mckayla Ogden PA-C Onset: 09/16/2016 Atrial flutter TAWANNA OrozcoC Onset: 07/11/2018 Sinus node dysfunction Mckayla Ogden PA-C Onset: 0 Cardiac pacemaker in situ TAWANNA OrozcoC Onset: 2019 Permanent atrial fibrillation Mckayla Ogden PA-C Onset: History of coronary artery bypass grafting Edwar Orozco ASeema Onset: 01/14/2020 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 Type Date Description Comments Sex Unknown Tobacco Use Start: Unknown End: Unknown Former Cigarette Smo ker 1/2 Pack Daily Hx of 10 yrs. quit 20 yrs ago ETOH Use Consumes Liquor one drink very r pratik Tobacco Use Start: Unknown End: Unknown Patient is a former smoker 1/2 Pack Daily - Hx of 10 yrs. quit 20 yrs ago Smoking Status Reviewed: 01/14/20 Patient is a former smoker 1/ 2 Pack Daily - Hx of 10 yrs. quit 20 yrs ago Exercise Type/Frequency Does yardwork sporadical ly riding mower Exercise Type/Frequency Does housework twice a w kenaitze Exercise Limitations Back Pain lower Exercise Limitations Fatigue Exercise Limitations Shortness Of Breath Allergies, Adverse Reactions, Alerts Active Allergies Reaction Severity Comments Date Sulfa hives 06/27/2006 Wasps swelling & infection 017 Bee Sting swelling & infection 017 Medications Active Medications SIG Qnty Indications Ordering Provide r Date Probiotic Capsules 1 by mouth every day Unknown 01/13/2020 Eliquis 5mg Tablets 1 by mouth twice a day 180tabs Phani Hoover MD 12/13/2019 Calcium 500 + D [id number] Tab lets 1 by mouth once daily Unknown 11/20/2019 Tums 500mg Chewtabs 1-3 chewed and swallowed as needed Unknown 11/11/2019 Dorzolamide HCL 2% Solution 1 drop each eye twice a day Sheldon Bianchi MD 11/11/2019 Tamsulosin HCL 0.4mg Capsules 1 by mouth every day Lee Boyer PA 11/11/2019 Ferrous Gluconate 324(37.5Fe) mg T ablets 1 by mouth twice a day Lee Boyer PA 020 Metoprolol Tartrate 25mg Tablets 1/2 tablet by mouth twice a day for edema Unknown 10/12/2019 Ipratropium Union 0.02% Solution 2 sprays into each nostril four times daily Unknow n 10/11/2019 Folic Acid 1mg Tablets 1 by mouth every day Unknown 10/11/2019 Docusate Sodium 100mg Capsules 1 by mouth twice a day for constipation Unknown Atorvastatin Calcium 20mg Tablets 1 by mouth every night at bedtime Unknown Acetaminophen 8 Hour 650mg Tablets ER 1 by mouth every 4 hours as needed Unknown Aspirin Adult Low Dose 81mg Tablet s DR 1 by mouth every day 90tabs I25.10 Phani Hoover MD 01/10/2019 Nitrostat 0.4mg Tablets Sub 1 sl every 5min x3 as needed for chest pain 25tabs I25.10 Phani Hoover MD 07/04/2013 Flonase 50mcg/Act Suspension 1 spray each nostril as needed Unknown 05/29/2013 Multivitamins Tablets 1 PO d Lisa Roberts MD History Medications Captopril 12.5mg Tablets 1/2 by mouth twice a day 90tabs Z95.1 Phani Hoover MD 11/12/2019 - 11/20/2019 I25.10 Coumadin 3mg Tablets 3 mg Daily, 6 mg Tuesday and Unknown 10/28/2019 - 12/13/2019 Immunizations Description No Information Available Vital Signs Date Vital Result Comment 01/14/2020 9:45am Weight 218.00 lb Home Weight 219lb Height 73 inches 6'1" BMI (Body Mass Index) 28.8 kg/m2 Heart Rate 68 /min Regular Respiratory Rate 16 /min 11/12/2019 2:43pm Weight 218.00 lb Home Weight 219lb Height 73 inches 6'1" BMI (Body Mass Index) 28.8 kg/m2 Heart Rate 72 /min Regular Respiratory Rate 16 /min BP Systolic Right Arm 128 mmHg sitting, regular c uff BP Diastolic Right Arm 68 mmHg sitting, regular cuff Results Test Acquired Date Facility Test Result H/L Range Note Basic Metabolic Profile 01/31/2020 [facility] [phone] Glucose, Fasting 101 mg/dL High 70-100 Blood Urea Nitrogen 29 mg/dL High 7-18 Creatinine For GFR 1.34 mg/dL High 0.70-1.30 Glomerular Filtration Rate 54.3 Normal >35 1 Sodium Level 142 mEq/L Normal 136-145 Potassium Serum 5.2 mEq/L High 3.5-5.1 Chloride Level 108 mEq/L High 98-107 Carbon Dioxide Level 30 mEq/L Normal 21-32 Anion Gap 4 mEq/L Low 8-16 Calcium Level 9.1 mg/dL Normal 8.8-10.2 Complete Blood Count 01/31/2020 [facility] [phone] White Blood Count 4.8 10 Normal 4.0-10.0 Red Blood Count 4.57 10 Normal 4.30-6.10 Hemoglobin 10.1 g/dL Low 13.5-17.5 Hematocrit 32.4 % Low 42.0-52.0 Mean Corpuscular Volume 70.9 fl Low 80.0-96.0 Mean Corpuscular Hemoglobin 22.1 pg Low 27.0-33.0 Mean Corpuscular HGB Conc 31.2 g/dL Low 32.0-36.5 Red Cell Distribution Width 17.0 % High 11.5-14.5 Platelet Count, Automated 185 10 Normal 150-450 Nucleated Red Blood Cell % 0.0 % Normal 0-0 CMP 12/24/2019 [facility] (315)- - Albumin Serum/Plasma 4.0 Alt - SGPT 16 Calcium Ser/Plasma Mass/Vol 9.8 Carbon Dioxide Ser/Plasm 26.4 Chloride Serum/Plasma 104.6 Alkaline Phosphatase 75.4 Potassium 5.0 Protein Total 6.0 Sodium 141 Ast - Sgot 18 BUN - Urea Nitrogen 24 Glucose 102 70-110 Creatinine For GFR 1.3 CBC without Differential 12/24/2019 [facility] (315)- - White Blood Count 5.3 4.1-10.9 Red Blood Count 4.56 4.20-6.30 Platelets 188 140-440 Hemoglobin 10.3 Low 12.0-18.0 Hematocrit 33.5 Low 37.0-51.0 Lipid Profile/Cardiac Risk Pro 12/24/2019 [facility] (315)- - Triglycerides 49 Cholesterol 94 0-200 HDL 57 45-65 LDL Cholesterol 28 Chol/HDL Ratio 1.7 Tibc/Iron/% Saturation 12/24/2019 [facility] (315)- - Iron 40 38-169 Tibc 195 Tibc % Saturation 17 Complete Blood Count 12/10/2019 [facility] - add-on lab [address] [place] [address] (315)- - White Blood Count 4.8 10 Normal 4.0-10.0 Red Blood Count 4.57 10 Normal 4.30-6.10 Hemoglobin 10.0 g/dL Low 13.5-17.5 Hematocrit 33.1 % Low 42.0-52.0 Mean Corpuscular Volume 72.4 fl Low 80.0-96.0 Mean Corpuscular Hemoglobin 21.9 pg Low 27.0-33.0 Mean Corpuscular HGB Conc 30.2 g/dL Low 32.0-36.5 Red Cell Distribution Width 17.5 % High 11.5-14.5 Platelet Count, Automated 175 10 Normal 150-450 Nucleated Red Blood Cell % 0.0 % Normal 0-0 Prothrombin Time/Inr 12/03/2019 [facility] [phone] Prothrombin Time 20.4 seconds High 12.5-14.3 Inr 1.70 Normal 2 Complete Blood Count 11/21/2019 [facility] [phone] White Blood Count 5.0 10 Normal 4.0-10.0 Red Blood Count 4.33 10 Normal 4.30-6.10 Hemoglobin 9.7 g/dL Low 13.5-17.5 Hematocrit 31.5 % Low 42.0-52.0 Mean Corpuscular Volume 72.7 fl Low 80.0-96.0 Mean Corpuscular Hemoglobin 22.4 pg Low 27.0-33.0 Mean Corpuscular HGB Conc 30.8 g/dL Low 32.0-36.5 Red Cell Distribution Width 17.9 % High 11.5-14.5 Platelet Count, Automated 180 10 Normal 150-450 Nucleated Red Blood Cell % 0.0 % Normal 0-0 Basic Metabolic Profile 11/21/2019 [facility] [phone] Glucose, Fasting 98 mg/dL Normal 70-100 Blood Urea Nitrogen 20 mg/dL High 7-18 Creatinine For GFR 1.31 mg/dL High 0.70-1.30 Glomerular Filtration Rate 55.8 Normal >35 3 Sodium Level 142 mEq/L Normal 136-145 Potassium Serum 4.7 mEq/L Normal 3.5-5.1 Chloride Level 109 mEq/L High 98-107 Carbon Dioxide Level 29 mEq/L Normal 21-32 Anion Gap 4 mEq/L Low 8-16 Calcium Level 8.9 mg/dL Normal 8.8-10.2 PT/Inr 11/21/2019 [facility] nter [phone] Prothrombin Time 34.2 seconds High 12.5-14.3 Inr 3.28 Normal 4 Complete Blood Count 11/14/2019 [facility] enter [phone] White Blood Count 4.9 10 Normal 4.0-10.0 Red Blood Count 3.88 10 Low 4.30-6.10 Hemoglobin 8.9 g/dL Low 13.5-17.5 Hematocrit 28.9 % Low 42.0-52.0 Mean Corpuscular Volume 74.5 fl Low 80.0-96.0 Mean Corpuscular Hemoglobin 22.9 pg Low 27.0-33.0 Mean Corpuscular HGB Conc 30.8 g/dL Low 32.0-36.5 Red Cell Distribution Width 18.8 % High 11.5-14.5 Platelet Count, Automated 221 10 Normal 150-450 Nucleated Red Blood Cell % 0.0 % Normal 0-0 Basic Metabolic Profile 11/14/2019 [facility] [phone] Glucose, Fasting 95 mg/dL Normal 70-100 Blood Urea Nitrogen 26 mg/dL High 7-18 Creatinine For GFR 1.25 mg/dL Normal 0.70-1.30 Glomerular Filtration Rate 58.9 Normal >35 5 Sodium Level 141 mEq/L Normal 136-145 Potassium Serum 4.7 mEq/L Normal 3.5-5.1 Chloride Level 108 mEq/L High 98-107 Carbon Dioxide Level 30 mEq/L Normal 21-32 Anion Gap 3 mEq/L Low 8-16 Calcium Level 9.0 mg/dL Normal 8.8-10.2 PT/Inr 10/29/2019 [facility] nter [phone] Prothrombin Time 19.8 seconds High 11.8-14.0 Inr 1.64 Normal 6 1 Units are mL/min/1.73 m2 Chronic Kidney Disease Staging per NKF: Stage I & II GFR >=60 Normal to Mildly Decreased Stage III GFR 30-59 Moderately Decreased Stage IV GFR 15-29 Severely Decreased Stage V GFR <15 Very Little GFR Left ESRD GFR <15 on MEDICAL IMAGING DIRECTOR 2 THERAPUTIC HUMAN INR VALUES INDICATIONS NORMAL RANGES PROPHYLAXIS/TREATMENT OF: VENOUS THROMBOSIS 2.0-3.0 PULMONARY EMBOLISM 2.0-3.0 PREVENTION OF SYSTEMIC EMBOLISM FROM: TISSUE HEART VALVES 2.0-3.0 ACUTE MYOCARDIAL INFARCTION 2.0-3.0 VALVULAR HEART DISEASE 2.0-3.0 ATRIAL FIBRILLATION 2.0-3.0 MECHANICAL VALVES(HIGH RISK) 2.5-3.5 RECURRENT MYOCARDIAL INFARCTION 2.5-3.5 3 Units are mL/min/1.73 m2 Chronic Kidney Disease Staging per NKF: Stage I & II GFR >=60 Normal to Mildly Decreased Stage III GFR 30-59 Moderately Decreased Stage IV GFR 15-29 Severely Decreased Stage V GFR <15 Very Little GFR Left ESRD GFR <15 on MEDICAL IMAGING DIRECTOR 4 THERAPUTIC HUMAN INR VALUES INDICATIONS NORMAL RANGES PROPHYLAXIS/TREATMENT OF: VENOUS THROMBOSIS 2.0-3.0 PULMONARY EMBOLISM 2.0-3.0 PREVENTION OF SYSTEMIC EMBOLISM FROM: TISSUE HEART VALVES 2.0-3.0 ACUTE MYOCARDIAL INFARCTION 2.0-3.0 VALVULAR HEART DISEASE 2.0-3.0 ATRIAL FIBRILLATION 2.0-3.0 MECHANICAL VALVES(HIGH RISK) 2.5-3.5 RECURRENT MYOCARDIAL INFARCTION 2.5-3.5 5 Units are mL/min/1.73 m2 Chronic Kidney Disease Staging per NKF: Stage I & II GFR >=60 Normal to Mildly Decreased Stage III GFR 30-59 Moderately Decreased Stage IV GFR 15-29 Severely Decreased Stage V GFR <15 Very Little GFR Left ESRD GFR <15 on MEDICAL IMAGING DIRECTOR 6 THERAPUTIC HUMAN INR VALUES INDICATIONS NORMAL RANGES PROPHYLAXIS/TREATMENT OF: VENOUS THROMBOSIS 2.0-3.0 PULMONARY EMBOLISM 2.0-3.0 PREVENTION OF SYSTEMIC EMBOLISM FROM: TISSUE HEART VALVES 2.0-3.0 ACUTE MYOCARDIAL INFARCTION 2.0-3.0 VALVULAR HEART DISEASE 2.0-3.0 ATRIAL FIBRILLATION 2.0-3.0 MECHANICAL VALVES(HIGH RISK) 2.5-3.5 RECURRENT MYOCARDIAL INFARCTION 2.5-3.5 Procedures Date Code Description Status 02/11/2020 20413 Remote Pacemaker/Cardio-Defibril lator Data Acquistion Completed 02/11/2020 73055 Remote Interrogation Device Eval Pacemaker System Up To 90 Days Completed 01/14/2020 12844 ECG 12-Lead Completed 12/14/2019 95601 Anticoagulant MGMT F or Patient Taking Warfarin, Inc Review & Intr Completed 12/03/2019 60293 Anticoagulant MGMT F or Patient Taking Warfarin, Inc Review & Intr Completed 11/21/2019 26614 Anticoagulant MGMT F or Patient Taking Warfarin, Inc Review & Intr Completed 11/12/2019 11930 Pacer Programming Single Lead Co mpleted 11/12/2019 50488 ECG 12-Lead Completed 10/30/2019 19808 Anticoagulant MGMT F or Patient Taking Warfarin, Inc Review & Intr Completed 10/26/2019 41131 Anticoagulant MGMT F or Patient Taking Warfarin, Inc Review & Intr Completed Medical Devices Description No Information Available Encounters Type Date Location Provider Dx Diagnosis Office Visit 02/12/2020 11:45a Main Office Phani Hoover MD I10 Essential (primary) hypertension I35.1 Nonrheumatic aortic (valve) insufficiency I34.0 Nonrheumatic mitral (valve) insufficiency Office Visit 01/17/2020 4:07p Main Office Phani Hoover MD I10 Essential (primary) hypertension I35.1 Nonrheumatic aortic (valve) insufficiency I34.0 Nonrheumatic mitral (valve) insufficiency Office Visit 01/14/2020 9:45a Main Office Mckayla Ogden PA-C I25.1 0 Athscl heart disease of [place] coronary artery w/o ang pctrs Z95.5 Presence of coronary angiopl asty implant and graft I49.01 Ventricular fibrillation Z95.1 Presence of aortocoronary by pass graft I25.5 Ischemic cardiomyopathy I10 Essential (primary) hyperten rosy I48.21 Permanent atrial fibrillatio n I48.3 Typical atrial flutter I35.1 Nonrheumatic aortic (valve) insufficiency I34.0 Nonrheumatic mitral (valve) insufficiency R94.31 Abnormal electrocardiogram [ ECG] [EKG] I49.3 Ventricular premature depola rization E78.00 Pure hypercholesterolemia, u nspecified I49.5 Sick sinus syndrome Z95.0 Presence of cardiac pacemake r Z71.3 Dietary counseling and surve illance Office Visit 11/29/2019 12:34p Main Office Phani Hoover MD I10 Essential (primary) hypertension I48.21 Permanent atrial fibrillatio n I35.1 Nonrheumatic aortic (valve) insufficiency I34.0 Nonrheumatic mitral (valve) insufficiency Office Visit 11/12/2019 3:00p Main Office Mckayla Ogden PA-C Z95.1 Presence of aortocoronary bypass graft I49.5 Sick sinus syndrome Z01.810 Encounter for preprocedural cardiovascular examination Office Visit 10/30/2019 12:34p Main Office Phani Hoover MD I10 Essential (primary) hypertension I48.21 Permanent atrial fibrillatio n I35.1 Nonrheumatic aortic (valve) insufficiency I34.0 Nonrheumatic mitral (valve) insufficiency Assessments Date Code Description Provider 02/12/2020 I10 Essential (primary) hypertension Phani Hoover MD 02/12/2020 I35.1 Nonrheumatic aortic (valve) insu fficiency Phani Hoover MD 02/12/2020 I34.0 Nonrheumatic mitral (valve) insu fficiency Phani Hoover MD 02/11/2020 Z95.0 Presence of cardiac pacemaker Pa cer/Icd Clinic 01/17/2020 I10 Essential (primary) hypertension Phani Hoover MD 01/17/2020 I35.1 Nonrheumatic aortic (valve) insu fficiency Phani Hoover MD 01/17/2020 I34.0 Nonrheumatic mitral (valve) insu fficiency Phani Hoover MD 01/14/2020 I25.10 Atherosclerotic heart disease of [place] coronary artery with Mckayla Ogden PA-C 01/14/2020 Z95.5 Presence of coronary angioplasty implant and graft Mckayla Ogden PA-C 01/14/2020 I49.01 Ventricular fibrillation Mckayla Ogden PA-C 01/14/2020 Z95.1 Presence of aortocoronary bypass graft Mckayla Ogden PA-C 01/14/2020 I25.5 Ischemic cardiomyopathy Mckayla arenas PA-C 01/14/2020 I10 Essential (primary) hypertension Mckayla Ogden PA-C 01/14/2020 I48.21 Permanent atrial fibrillation Ka te E Symchrissyw, PA-C 01/14/2020 I48.3 Typical atrial flutter Mckayla ruano, PA-C 01/14/2020 I35.1 Nonrheumatic aortic (valve) insu fficiency Mckayla Ogden, PA-C 01/14/2020 I34.0 Nonrheumatic mitral (valve) insu fficiency Mckayla Levinw, PA-C 01/14/2020 R94.31 Abnormal electrocardiogram [ECG] [EKG] Mckayla Ogden, PA-C 01/14/2020 I49.3 Ventricular premature depolariza tion Mckayla Ogden, PA-C 01/14/2020 E78.00 Pure hypercholesterolemia, unspe cified Mckayla Levinw, PA-C 01/14/2020 I49.5 Sick sinus syndrome Mckayla ferrara, PA-C 01/14/2020 Z95.0 Presence of cardiac pacemaker Ka te E Symenow, PA-C 01/14/2020 Z71.3 Dietary counseling and surveilla nce Mckayla Levinw, PA-C 12/14/2019 I48.21 Permanent atrial fibrillation Ja kelly Hoover MD 12/14/2019 Z95.1 Presence of aortocoronary bypass graft Phani Hoover MD 12/03/2019 I48.21 Permanent atrial fibrillation Ka kaylee Ogden, PA-C 11/29/2019 I10 Essential (primary) hypertension Phani Hoover MD 11/29/2019 I48.21 Permanent atrial fibrillation Jack Hoover MD 11/29/2019 I35.1 Nonrheumatic aortic (valve) insu fficiency Phani Hoover MD 11/29/2019 I34.0 Nonrheumatic mitral (valve) insu fficiency Phani Hoover MD 11/21/2019 I48.21 Permanent atrial fibrillation Ka kaylee Levinw, PA-C 11/21/2019 Z95.1 Presence of aortocoronary bypass graft Mckayla Ogden, PA-C 11/12/2019 Z95.1 Presence of aortocoronary bypass graft Mckayla Levinw, PA-C 11/12/2019 I49.5 Sick sinus syndrome Mckayla ferrara PA-C 11/12/2019 Z01.810 Encounter for preprocedural card iovascular examination Mckayla Ogden PA-C 10/30/2019 I10 Essential (primary) hypertension Phani Hoover MD 10/30/2019 I48.21 Permanent atrial fibrillation Al GARRET Garcia 10/30/2019 I48.21 Permanent atrial fibrillation Ja kelly Hoover MD 10/30/2019 I35.1 Nonrheumatic aortic (valve) insu fficiency Phani Hoover MD 10/30/2019 I34.0 Nonrheumatic mitral (valve) insu fficiency Phani Hoover MD 10/26/2019 I48.21 Permanent atrial fibrillation Al GARRET Garcia Plan of Treatment Future Appointment(s):* 05/12/2020 7:00 am - Pacer/Icd Clinic at Main Office * 07/14/2020 10:15 am - Mckayla Ogden PA-C at Main Office * 11/13/2020 8:00 am - Mckayla Ogden PA-C at Main Office 01/14/2020 - Mckayla Ogden PA-C* I25.10 Atherosclerotic heart disease of [place] coronary artery with * Z95.5 Presence of coronary angioplasty implant and graft * I49.01 Ventricular fibrillation * Z95.1 Presence of aortocoronary bypass graft * I25.5 Ischemic cardiomyopathy * I10 Essential (primary) hypertension * I48.21 Permanent atrial fibrillation * I48.3 Typical atrial flutter * I35.1 Nonrheumatic aortic (valve) insufficiency * I34.0 Nonrheumatic mitral (valve) insufficiency * R94.31 Abnormal electrocardiogram [ECG] [EKG] * I49.3 Ventricular premature depolarization * E78.00 Pure hypercholesterolemia, unspecified * I49.5 Sick sinus syndrome * Z95.0 Presence of cardiac pacemaker * Z71.3 Dietary counseling and surveillance* Recommendations:* Follow a low fat/low cholesterol diet and do at least 30 minutes of sustained aerobic activity daily. * All * Follow up:* 6 month follow up. Functional Status Functional Condition Comment Date Status Independent with all ADL's Activ e Mental Status Description No Information Available Referrals Description No Information Available
--- OUTSIDE RECORDS SUMMARY | 2020-04-26 00:46 | CCD | Continuity of Care Document ---
Author Author Jean CARVAJAL M.D. Organization Unknown Address [address] [address] Phone [phone] Care Team Providers Care Hand Lacer Name Role Phone Cornelius Dean M.D. [facility] [phone] Problems Active Problems Provider Date Coronary atherosclerosis Harjinder Carvajal M.D. Onset: 11/29 Hyperlipidemia Harjinder Carvajal M.D. Onset: 0 Benign prostatic hypertrophy without outflow obstructi on Harjinder Carvajal M.D. Onset: 12/24/2019 Essential hypertension Harjinder Carvajal M.D. Onset: 2019 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 Type Date Description Comments Sex Unknown ETOH Use Denies alcohol use Tobacco Use Start: Unknown End: Unknown Patient is a former smoker Cigarettes - Quit 1994 Recreational Drug Use Denies Drug Use Allergies, Adverse Reactions, Alerts Active Allergies Reaction Severity Comments Date Bee Pollen 12/24/2019 Sulfa Drugs Hives 12/24/2019 Medications Active Medications SIG Qnty Indications Ordering Provide r Date Ferrous Sulfate 324(65Fe) mg Table ts DR 1 by mouth every day OTC Unknown Folic Acid 1mg Tablets 1 by mouth every day Unknown Metoprolol Tartrate 25mg Tablets take 12.5mg bid Cornelius Dean M.D. Atorvastatin Calcium 20mg Tablets 1 by mouth every day Unknown Tamsulosin HCL 0.4mg Capsules 1 by mouth every day Unknown Dorzolamide HCL 2% Solution 1 drop OU bid Unknown Fluticasone Propionate 50mcg/Act Suspension 2 sprays each nostril once a day Unknown Aspirin [address] 1 by mouth every day OTC Unknown Colace 100mg Capsules 1 by mouth twice a day OTC Unknown Nitroglycerin 0.4mg Tablets Sub take 1 tablet under the tongue every 5 minutes x 3 doses as needed for chest pain Cornelius Dean M.D. Multivitamin Tablets 1 by mouth every day OTC Unknown Tylenol 325mg Tablets 1 by mouth every 4 hours as needed for pain OTC Unknown Tums 500mg Chewtabs 1 by mouth as needed OTC Unknown Immunizations Description No Information Available Vital Signs Date Vital Result Comment 03/25/2020 9:23am BP Systolic 114 mmHg BP Diastolic 74 mmHg Body Temperature 97.8 F Heart Rate 80 /min Respiratory Rate 16 /min Height 72 inches 6'0" Weight 220.00 lb [place] Body Weight 178 lb BMI (Body Mass Index) 29.8 kg/m2 01/23/2020 8:34am BP Systolic 122 mmHg BP Diastolic 66 mmHg Body Temperature 97.6 F Heart Rate 64 /min Respiratory Rate 14 /min Height 72 inches 6'0" Weight 221.00 lb [place] Body Weight 178 lb BMI (Body Mass Index) 30.0 kg/m2 O2 % BldC Oximetry 93 % Results Test Acquired Date Facility Test Result H/L Range Note Urine Culture, Routine 03/25/2020 [facility] [place] Urine Culture, Routine Final report 1, 2 Result 1 No growth 3 U/A DIP FPA 03/25/2020 [facility] Asso ciates Color Urine RED Yellow Appearance CLEAR Clear Specific [place] 1.005 1.00-1.03 PH Urine 9.0 High 5.0-8.0 Glucose Urine TRACE Negative Bilirubin Urine 3+ High Negative Ketones 3+ High Negative Blood Urine 3+ High Negative Protein Urine 3+ High Negative Urobilinogen 8.0 EU/dl High 0.2-1.0 Nitrite 1+ High Negative Leukocytes 3+ High Negative CBC 03/25/2020 [facility]house WBC 4.5 10E3/uL 4.1 - 10.9 4 RBC 4.26 10E6/uL 4.20 - 6.30 HGB 9.9 g/dL Low 12.0 - 18.0 HCT 31.2 % Low 37.0 - 51.0 MCV 73.2 fL Low 80.0 - 97.0 MCH 23.2 pg Low 26.0 - 32.0 MCHC 31.7 g/dL 31.0 - 36.0 PLT 251 10E3/uL 140 - 440 RDW-CV 20.6 % High 11.5 - 14.5 Lym% 15.9 % 10.0 - 58.5 Neut% 71.3 % 37.0 - 92.0 MXD% 12.8 % 0.1 - 24.0 Lym# 0.7 10E3/uL 0.6 - 4.1 Neut# 3.2 % 2.0 - 7.8 MXD# 0.6 10E3/uL 0.0 - 1.8 MPV 10.2 fL 9.0 - 13.0 Comment VERIFIED Basic Metabolic Panel 03/25/2020 [facility] Glu 112 mg/dL High 70 - 110 BUN 29 mg/dL High 8 - 23 Creat 1.6 mg/dL High 0.7 - 1.2 BUN/Creatinine Ratio 18.0 CALC Co2 26.4 mmol/L 22.0 - 29.0 CA 9.9 mg/dL 8.6 - 10.2 Na 140 mmol/L 136 - 145 K 5.2 mmol/L High 3.5 - 5.1 CL 103.9 mmol/L 98.0 - 107.0 Anion Gap 15 mmol/L eGFR 45 # Calc 5 eGFR Non-Afr. [place] 39 # Calc 6 Basic Metabolic Profile 02/06/2020 [facility] (Interface) [phone] Glucose, Fasting 95 mg/dL Normal 70-100 Blood Urea Nitrogen 25 mg/dL High 7-18 Creatinine For GFR 1.41 mg/dL High 0.70-1.30 Glomerular Filtration Rate 51.2 Normal >35 7 Sodium Level 142 mEq/L Normal 136-145 Potassium Serum 4.9 mEq/L Normal 3.5-5.1 Chloride Level 110 mEq/L High 98-107 Carbon Dioxide Level 29 mEq/L Normal 21-32 Anion Gap 3 mEq/L Low 8-16 Calcium Level 9.5 mg/dL Normal 8.8-10.2 Ua Routine 01/07/2020 [facility] ([place]) [phone] Appearance, Urine HAZY Normal Clear Color, Urine YELLOW Normal Yellow PH,Urine 7.0 units Normal 5.0-9.0 Specific [place] Urine Auto 1.017 Normal 1.002-1.035 Protein, Urine Auto 2+ mg/dL High Negative Glucose, Urine (Ua) Auto NEGATIVE mg/dL Normal Negative Ketone, Urine Auto NEGATIVE mg/dL Normal Negative Urobilinogen, Urine Auto 0.2 mg/dL Normal 0.0-2.0 Bilirubin, Urine Auto NEGATIVE Normal Negative Nitrite, Urine Auto NEGATIVE Normal Negative Leukocyte Esterase, Urine Auto NEGATIVE Normal Negative Blood, Urine Blood NEGATIVE Normal Negative WBC, Urine Auto 1 /HPF Normal 0-3 RBC, Urine Auto 1 /HPF Normal 0-3 Bacteria, Urine Auto NEGATIVE Normal Negative Squamous Epithelial Cell Ur AU 0 /HPF Normal 0-6 Mucus, Urine SMALL Normal Negative Hyaline Cast, Urine Auto 1 /LPF Normal 0-1 Urine Culture 01/07/2020 [facility]) [phone] Urine Culture FULL REPORT IN L <SEE NOTE> Normal 8 Iron And Tibc 12/24/2019 [facility] [place] Iron Bind.Cap.(Tibc) 235 g/dL Low 250-450 Uibc 195 g/dL 111-343 Iron 40 g/dL 38-169 Iron Saturation 17 % 15-55 CMP 12/24/2019 [facility] Glu 102 mg/dL 70 - 110 9 BUN 24 mg/dL High 8 - 23 Creat 1.3 mg/dL High 0.5 - 1.0 BUN/Creatinine Ratio 18.6 Calc Na 141 mmol/L 136 - 145 K 5.0 mmol/L 3.5 - 5.1 CL 104.6 mmol/L 98.0 - 107.0 Co2 26.4 mmol/L 22.0 - 29.0 CA 9.8 mg/dL 8.6 - 10.2 TP 6.0 g/dL Low 6.6 - 8.7 Alb 4.0 g/dL 3.4 - 4.8 A/G Ratio 1.9 Calc Globulin 2.1 Calc Alp 75.4 U/L 35 - 129 Alt (SGPT) 16 U/L 0 - 41 Ast (Sgot) 18 U/L 0 - 40 Tbili 0.63 mg/dL 0.0 - 1.2 Osmolality-Calculated 285.2 Calc Anion Gap 15 mmol/L eGFR 44 # Calc 10 eGFR Non-Afr. [place] 38 # Calc 11 CBC 12/24/2019 [facility] WBC 5.3 10E3/uL 4.1 - 10.9 RBC 4.56 10E6/uL 4.20 - 6.30 HGB 10.3 g/dL Low 12.0 - 18.0 HCT 33.5 % Low 37.0 - 51.0 MCV 73.5 fL Low 80.0 - 97.0 MCH 22.6 pg Low 26.0 - 32.0 MCHC 30.7 g/dL Low 31.0 - 36.0 PLT 188 10E3/uL 140 - 440 RDW-CV 17.7 % High 11.5 - 14.5 Lym% 15.2 % 10.0 - 58.5 Neut% 74.6 % 37.0 - 92.0 MXD% 10.2 % 0.1 - 24.0 Lym# 0.8 10E3/uL 0.6 - 4.1 Neut# 4.0 % 2.0 - 7.8 MXD# 0.5 10E3/uL 0.0 - 1.8 MPV 11.5 fL 9.0 - 13.0 Lipid Panel 12/24/2019 [facility] Chol 94 mg/dL 0 - 200 Trig 49 mg/dL 40 - 200 HDL 57 mg/dL 45 - 65 LDL_C 28 Calc Low 75 - 129 Cho/HDL Ratio 1.7 Calc Laboratory test finding 12/24/2019 [facility] TSH 2.040 ulU/mL 0.60 - 4.8 Hemoglobinopathy Profile 12/24/2019 [facility] [place] Hgb Solubility Negative Negative Hgb F 0.5 % 0.0-2.0 Hgb A 95.9 % Low 96.4-98.8 Hgb S 0.0 % 0.0 Hgb C 0.0 % 0.0 Hgb A2 3.6 % High 1.8-3.2 Hgb Variant 0.0 % 0.0 Interpretation See Comment: 12 Ua Routine 12/10/2019 [facility] ([facility]) [phone] Appearance, Urine CLEAR Normal Clear Color, Urine YELLOW Normal Yellow PH,Urine 6.0 units Normal 5.0-9.0 Specific [place] Urine Auto 1.017 Normal 1.002-1.035 Protein, Urine Auto 1+ mg/dL High Negative Glucose, Urine (Ua) Auto NEGATIVE mg/dL Normal Negative Ketone, Urine Auto NEGATIVE mg/dL Normal Negative Urobilinogen, Urine Auto 2.0 mg/dL High 0.0-2.0 Bilirubin, Urine Auto NEGATIVE Normal Negative Nitrite, Urine Auto NEGATIVE Normal Negative Leukocyte Esterase, Urine Auto NEGATIVE Normal Negative Blood, Urine Blood NEGATIVE Normal Negative WBC, Urine Auto 0 /HPF Normal 0-3 RBC, Urine Auto 3 /HPF Normal 0-3 Bacteria, Urine Auto NEGATIVE Normal Negative Squamous Epithelial Cell Ur AU 0 /HPF Normal 0-6 Hyaline Cast, Urine Auto 0 /LPF Normal 0-1 Urine Culture 12/10/2019 [facility] [phone] Urine Culture FULL REPORT IN L <SEE NOTE> Normal 13 CBC With Differential 12/10/2019 [facility] (Interface) [phone] White Blood Count 4.8 10 Normal 4.0-10.0 Red Blood Count 4.58 10 Normal 4.30-6.10 Hemoglobin 10.3 g/dL Low 13.5-17.5 Hematocrit 33.5 % Low 42.0-52.0 Mean Corpuscular Volume 73.1 fl Low 80.0-96.0 Mean Corpuscular Hemoglobin 22.5 pg Low 27.0-33.0 Mean Corpuscular HGB Conc 30.7 g/dL Low 32.0-36.5 Red Cell Distribution Width 17.5 % High 11.5-14.5 Platelet Count, Automated 165 10 Normal 150-450 Neutrophils % 72.2 % High 36.0-66.0 Lymph % 13.4 % Low 24.0-44.0 [place] % 9.3 % High 0.0-5.0 Eos % 4.3 % High 0.0-3.0 Baso % 0.4 % Normal 0.0-1.0 Immature Granulocyte % 0.4 % Normal 0-3.0 Nucleated Red Blood Cell % 0.0 % Normal 0-0 Neutrophils # 3.5 10 Normal 1.5-8.5 Lymph # 0.7 10 Low 1.5-5.0 [place] # 0.5 10 Normal 0.0-0.8 Eos # 0.2 10 Normal 0.0-0.5 Baso # 0.0 10 Normal 0.0-0.2 Prothrombin Time/Inr 12/10/2019 [facility] ( Interface) [phone] Prothrombin Time 18.7 seconds High 12.5-14.3 Inr 1.53 Normal 14 Basic Metabolic Profile 12/10/2019 [facility] (Interface) [phone] Glucose, Fasting 98 mg/dL Normal 70-100 Blood Urea Nitrogen 23 mg/dL High 7-18 Creatinine For GFR 1.26 mg/dL Normal 0.70-1.30 Glomerular Filtration Rate 58.3 Normal >35 1 5 Sodium Level 142 mEq/L Normal 136-145 Potassium Serum 4.8 mEq/L Normal 3.5-5.1 Chloride Level 107 mEq/L Normal 98-107 Carbon Dioxide Level 31 mEq/L Normal 21-32 Anion Gap 4 mEq/L Low 8-16 Calcium Level 8.7 mg/dL Low 8.8-10.2 Complete Blood Count 12/10/2019 [facility] ( Interface) [phone] White Blood Count 4.8 10 Normal 4.0-10.0 [...] Blood Cell % 0.0 % Normal 0-0 1 SRC:URINE 2 Source of Specimen: URINE 3 Source of Specimen: URINE 4 NORMAL RANGES Age WBC RBC HGB HCT MCV PLT Adult M 4.1-10.9 4.20-6.30 12.0-18.0 37.0-51.0 80-97 140-440 Adult F 4.1-10.9 4.04-5.48 12.0-18.0 37.0-51.0 80-97 140-440 0 -1 Yr 5.0-20.0 3.9-5.9 15-18 MV: 44 MV: 91 MV: 277 2-9 Yr. 6.0-17.0 3.8-5.4 11-13 MV: 37 MV: 78 MV: 300 10 Yrs. 5.0-13.0 3.8-5.4 12-15 MV: 39 MV: 80 MV: 250 NOTE: * FOR ADULT BLACK MALES AND FEMALES, NORMAL WBC IS 2.9-7.7 K/ML * FOR ADULT BLACK MALES AND FEMALES, NORMAL RBC,HGB, AND HCT IS 5% LESS SOURCE FOR DATA: [employer] 1800 OPERATION MANUAL( AUTOMATED BLOOD COUNTS AND DIFF.) APPENDIX B-3 CHRONIC KIDNEY DISEASE STAGING PER NKF: MALE GFR INTERPRETATION: 20-49 YRS: >60 mL/min Normal 50-59 YRS: >56 mL/min Normal 60-69 YRS: >49 mL/min Normal 70-79 YRS: >42 mL/min Normal 80 and above >35 mL/min Normal FEMALE GRF INTERPRETATION: 20-39 YRS: >60 mL/min Normal 40-49 YRS: >58 mL/min Normal 50-59 YRS: >51 mL/min Normal 60-69 YRS: >45 mL/min Normal 70-79 YRS: >39 mL/min Normal 80 and above >32 mL/min Normal 5 CKD-EPI 6 CKD-EPI 7 Units are mL/min/1.73 m2 Chronic Kidney Disease Staging per NKF: Stage I & II GFR >=60 Normal to Mildly Decreased Stage III GFR 30-59 Moderately Decreased Stage IV GFR 15-29 Severely Decreased Stage V GFR <15 Very Little GFR Left ESRD GFR <15 on BULK GAS SPECIALIST 8 FULL REPORT IN LAB NOTES (eC W and Medtess). NO GROWTH 9 NORMAL RANGES Age WBC RBC HGB HCT MCV PLT Adult M 4.1-10.9 4.20-6.30 12.0-18.0 37.0-51.0 80-97 140-440 Adult F 4.1-10.9 4.04-5.48 12.0-18.0 37.0-51.0 80-97 140-440 0 -1 Yr 5.0-20.0 3.9-5.9 15-18 MV: 44 MV: 91 MV: 277 2-9 Yr. 6.0-17.0 3.8-5.4 11-13 MV: 37 MV: 78 MV: 300 10 Yrs. 5.0-13.0 3.8-5.4 12-15 MV: 39 MV: 80 MV: 250 NOTE: * FOR ADULT BLACK MALES AND FEMALES, NORMAL WBC IS 2.9-7.7 K/ML * FOR ADULT BLACK MALES AND FEMALES, NORMAL RBC,HGB, AND HCT IS 5% LESS SOURCE FOR DATA: [employer] 1800 OPERATION MANUAL( AUTOMATED BLOOD COUNTS AND DIFF.) APPENDIX B-3 CHRONIC KIDNEY DISEASE STAGING PER NKF: MALE GFR INTERPRETATION: 20-49 YRS: >60 mL/min Normal 50-59 YRS: >56 mL/min Normal 60-69 YRS: >49 mL/min Normal 70-79 YRS: >42 mL/min Normal 80 and above >35 mL/min Normal FEMALE GRF INTERPRETATION: 20-39 YRS: >60 mL/min Normal 40-49 YRS: >58 mL/min Normal 50-59 YRS: >51 mL/min Normal 60-69 YRS: >45 mL/min Normal 70-79 YRS: >39 mL/min Normal 80 and above >32 mL/min NormalCLASSIFICATION CHOLESTEROL FOR ADULTS CHILDREN/ADOLESCENTS* DESIRABLE: <200 MG/DL <170 MG/DL BORDER-LINE HIGH RISK: 200-239 MG/DL 170-199 MG/DL HIGH RISK: >240 MG/DL >200 MG/DL CLASS. FOR PRIMARY LDL CHOL PREVENTION: LDL CHOL-CHILD/ADOLESCENTS* DESIRABLE: <130 MG/DL <110 MG/DL BORDERLINE-HIGH RISK: 130-159 MG/DL 110-129 MG/DL HIGH RISK: >160 MG/DL >130 MG/DL *CHILDREN AND ADOLESCENTS REPRESENTS INDIVIDUALA AGED 2-19 YEARS EXCLUSIVE. 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 Suggest hematologic and clinical correlation. 13 FULL REPORT IN LAB NOTES (eC W and Medent). NO GROWTH 14 THERAPUTIC HUMAN INR VALUES INDICATIONS NORMAL RANGES PROPHYLAXIS/TREATMENT OF: VENOUS THROMBOSIS 2.0-3.0 PULMONARY EMBOLISM 2.0-3.0 PREVENTION OF SYSTEMIC EMBOLISM FROM: TISSUE HEART VALVES 2.0-3.0 ACUTE MYOCARDIAL INFARCTION 2.0-3.0 VALVULAR HEART DISEASE 2.0-3.0 ATRIAL FIBRILLATION 2.0-3.0 MECHANICAL VALVES(HIGH RISK) 2.5-3.5 RECURRENT MYOCARDIAL INFARCTION 2.5-3.5 15 Units are mL/min/1.73 m2 Chronic Kidney Disease Staging per NKF: Stage I & II GFR >=60 Normal to Mildly Decreased Stage III GFR 30-59 Moderately Decreased Stage IV GFR 15-29 Severely Decreased Stage V GFR <15 Very Little GFR Left ESRD GFR <15 on BULK GAS SPECIALIST Procedures Description No Information Available Medical Devices Description No Information Available Encounters Type Date Location Provider Dx Diagnosis Office Visit 03/25/2020 8:45a [place] [facility] Harjinder Carvajal M. D. C67.9 Malignant neoplasm of bladder, unspecified R31.9 Hematuria, unspecified Office Visit 01/23/2020 9:00a [place] [facility] Harjinder Carvajal M. D. 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 D. 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 03/25/2020 R31.9 Hematuria, unspecified Harjinder Carvajal M.D. 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 01/23/2020 I25.10 Atherosclerotic hear t disease of [place] coronary artery without angina pectoris Harjinder Carvajal M.D. 12/24/2019 M54.9 Dorsalgia, unspecified Harjinder Carvajal M.D. 12/24/2019 Z00.00 Encounter for genera l adult medical examination without abnormal findings Harjinder Carvajal M.D. 12/24/2019 I25.10 Atherosclerotic hear t disease of [place] coronary artery without angina pectoris Harjinder Carvajal M.D. 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 Plan of Treatment Future Appointment(s):* 04/04/2020 1:00 pm - Harjinder Carvajal M.D. at [facility] * 07/23/2020 9:00 am - Harjinder Carvajal M.D. at [facility] Functional Status Description No Information Available Mental Status Description No Information Available Referrals Description No Information Available
--- OUTSIDE RECORDS SUMMARY | 2020-04-26 00:47 | CCD | Continuity of Care Document ---
Author Author Jean FARFAN M.D. Organization Unknown Address [address] [address] Phone [phone] Care Team Providers Care Decorating Equipment Setter Name Role Phone Cornelius Dean M.D. [facility] [phone] Problems Active Problems Provider Date Coronary atherosclerosis Harjinder Farfan M.D. Onset: 11/29 Hyperlipidemia Harjinder Farfan M.D. Onset: 0 Benign prostatic hypertrophy without outflow obstructi on Harjinder Farfan M.D. Onset: 12/24/2019 Essential hypertension Harjinder Farfan M.D. Onset: 2019 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 Type Date [...] Height 72 inches 6'0" Weight 220.00 lb [place] Body Weight 178 lb BMI (Body Mass Index) 29.8 kg/m2 01/23/2020 8:34am BP Systolic 122 mmHg BP Diastolic 66 mmHg Body Temperature 97.6 F Heart Rate 64 /min Respiratory Rate 14 /min Height 72 inches 6'0" Weight 221.00 lb [place] Body Weight 178 lb BMI (Body Mass Index) 30.0 kg/m2 O2 % BldC Oximetry 93 % Results Test Acquired Date Facility Test Result H/L Range Note U/A DIP FPA 03/25/[facility] Color Urine RED Yellow Appearance CLEAR Clear Specific [place] 1.005 1.00-1.03 PH Urine 9.0 High 5.0-8.0 Glucose Urine TRACE Negative Bilirubin Urine 3+ High Negative Ketones 3+ High Negative Blood Urine 3+ High Negative Protein Urine 3+ High Negative Urobilinogen 8.0 EU/dl High 0.2-1.0 Nitrite 1+ High Negative Leukocytes 3+ High Negative CBC 03/25/2020 [facility] WBC 4.5 10E3/uL 4.1 - 10.9 RBC 4.26 10E6/uL 4.20 - 6.30 HGB [...] 9.0 - 13.0 Comment VERIFIED Basic Metabolic Profile 02/06/2020 [facility] ([facility]) [phone] Glucose, Fasting 95 mg/dL Normal 70-100 Blood Urea Nitrogen 25 mg/dL High 7-18 Creatinine For GFR 1.41 mg/dL High 0.70-1.30 Glomerular Filtration Rate 51.2 Normal >35 1 Sodium Level 142 mEq/L Normal 136-145 Potassium Serum 4.9 mEq/L Normal 3.5-5.1 Chloride Level 110 mEq/L High 98-107 Carbon Dioxide Level 29 mEq/L Normal 21-32 Anion Gap 3 mEq/L Low 8-16 Calcium Level 9.5 mg/dL Normal 8.8-10.2 Ua Routine 01/07/2020 [facility]) [phone] Appearance, Urine HAZY Normal Clear Color, Urine YELLOW Normal Yellow PH,Urine 7.0 units Normal 5.0-9.0 Specific [place] Urine Auto 1.017 Normal 1.002-1.035 Protein, Urine [...] 1 /LPF Normal 0-1 Urine Culture 01/07/2020 [facility]) [phone] Urine Culture FULL REPORT IN L <SEE NOTE> Normal 2 Iron And Tibc 12/24/2019 [facility] [place] Iron Bind.Cap.(Tibc) 235 g/dL Low 250-450 Uibc 195 g/dL 111-343 Iron 40 g/dL 38-169 Iron Saturation 17 % 15-55 CMP 12/24/2019 [facility] Glu 102 mg/dL 70 - 110 3 BUN 24 mg/dL High 8 - 23 [...] Gap 15 mmol/L eGFR 44 # Calc 4 eGFR Non-Afr. Samoan 38 # Calc 5 CBC 12/24/2019 [facility] WBC 5.3 10E3/uL 4.1 [...] Variant 0.0 % 0.0 Interpretation See Comment: 6 Ua Routine 12/10/2019 [facility]) [phone] Appearance, Urine CLEAR Normal Clear Color, Urine YELLOW Normal Yellow PH,Urine 6.0 units Normal 5.0-9.0 Specific [place] Urine Auto 1.017 Normal 1.002-1.035 Protein, Urine [...] 0 /LPF Normal 0-1 Urine Culture [facility]2019 [facility] [phone] Urine Culture FULL REPORT IN L <SEE NOTE> Normal 7 CBC With Differential 12/10/2019 [facility] (Interface) [phone] White Blood Count 4.8 10 Normal 4.0-10.0 [...] 36.0-66.0 Lymph % 13.4 % Low 24.0-44.0 [place] % 9.3 % High 0.0-5.0 Eos % 4.3 % High 0.0-3.0 Baso % 0.4 % Normal 0.0-1.0 Immature Granulocyte % 0.4 % Normal 0-3.0 Nucleated Red Blood Cell % 0.0 % Normal 0-0 Neutrophils # 3.5 10 Normal 1.5-8.5 Lymph # 0.7 10 Low 1.5-5.0 [place] # 0.5 10 Normal 0.0-0.8 Eos # 0.2 10 Normal 0.0-0.5 Baso # 0.0 10 Normal 0.0-0.2 Prothrombin Time/Inr 12/10/2019 [facility] ( Interface) [phone] Prothrombin Time 18.7 seconds High 12.5-14.3 Inr 1.53 Normal 8 Basic Metabolic Profile 12/10/2019 [facility] ([facility]) [phone] Glucose, Fasting 98 mg/dL Normal 70-100 Blood Urea Nitrogen 23 mg/dL High 7-18 Creatinine For GFR 1.26 mg/dL Normal 0.70-1.30 Glomerular Filtration Rate 58.3 Normal >35 9 Sodium Level 142 mEq/L Normal 136-145 Potassium Serum 4.8 mEq/L Normal 3.5-5.1 Chloride Level 107 mEq/L Normal 98-107 Carbon Dioxide Level 31 mEq/L Normal 21-32 Anion Gap 4 mEq/L Low 8-16 Calcium Level 8.7 mg/dL Low 8.8-10.2 Complete Blood Count 12/10/2019 [facility] ( [facility]) [phone] White Blood Count 4.8 10 Normal 4.0-10.0 [...] Cell % 0.0 % Normal 0-0 1 Units are mL/min/1.73 m2 Chronic Kidney Disease Staging per NKF: Stage I & II GFR >=60 Normal to Mildly Decreased Stage III GFR 30-59 Moderately Decreased Stage IV GFR 15-29 Severely Decreased Stage V GFR <15 Very Little GFR Left ESRD GFR <15 on CLINICAL REGISTERED NURSE 2 FULL REPORT IN LAB NOTES (eC W and Diogenes). NO GROWTH 3 NORMAL RANGES Age WBC RBC HGB HCT [...] HCT IS 5% LESS SOURCE FOR DATA: [employer] 1800 OPERATION MANUAL( AUTOMATED BLOOD COUNTS AND [...] ADOLESCENTS REPRESENTS INDIVIDUALA AGED 2-19 YEARS EXCLUSIVE. 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 Suggest hematologic and clinical correlation. 7 FULL REPORT IN LAB NOTES (eC W and Medent). NO GROWTH 8 THERAPUTIC HUMAN INR VALUES INDICATIONS NORMAL RANGES PROPHYLAXIS/TREATMENT OF: VENOUS THROMBOSIS 2.0-3.0 PULMONARY EMBOLISM 2.0-3.0 PREVENTION OF SYSTEMIC EMBOLISM FROM: TISSUE HEART VALVES 2.0-3.0 ACUTE MYOCARDIAL INFARCTION 2.0-3.0 VALVULAR HEART DISEASE 2.0-3.0 ATRIAL FIBRILLATION 2.0-3.0 MECHANICAL VALVES(HIGH RISK) 2.5-3.5 RECURRENT MYOCARDIAL INFARCTION 2.5-3.5 9 Units are mL/min/1.73 m2 Chronic Kidney Disease Staging per NKF: Stage I & II GFR >=60 Normal to Mildly Decreased Stage III GFR 30-59 Moderately Decreased Stage IV GFR 15-29 Severely Decreased Stage V GFR <15 Very Little GFR Left ESRD GFR <15 on CLINICAL REGISTERED NURSE Procedures Description No Information Available Medical Devices Description No Information Available Encounters Type Date Location Provider Dx Diagnosis Office Visit 03/25/2020 8:45a [place] [facility] Harjinder Farfan M. D. C67.9 Malignant neoplasm of bladder, unspecified R31.9 Hematuria, unspecified Office Visit 01/23/2020 9:00a [facility] Harjinder Farfan M. D. 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 D. 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 03/25/2020 R31.9 Hematuria, unspecified Harjinder Farfan M.D. 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 01/23/2020 I25.10 Atherosclerotic hear t disease of [place] coronary artery without angina pectoris Harjinder Farfan M.D. 12/24/2019 M54.9 Dorsalgia, unspecified Harjinder Farfan M.D. 12/24/2019 Z00.00 Encounter for genera l adult medical examination without abnormal findings Harjinder Farfan M.D. 12/24/2019 I25.10 Atherosclerotic hear t disease of [place] coronary artery without angina pectoris Harjinder Farfan M.D. 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 Plan of Treatment Future Appointment(s):* 04/04/2020 1:00 pm - Harjinder Farfan M.D. at [facility] [place] * 07/23/2020 9:00 am - Harjinder Farfan M.D. at [facility] [place] Functional Status Description No Information Available Mental Status Description No Information Available Referrals Description No Information Available
--- OUTSIDE RECORDS SUMMARY | 2020-04-26 00:47 | CCD | Continuity of Care Document ---
Author Author Jean FARFAN M.D. Organization Unknown Address [address] [address] Phone [phone] Care Team Providers Care Concrete Conveyor Operator Name Role Phone Cornelius Dean M.D. [facility] [phone] Problems Active Problems Provider Date Coronary atherosclerosis [...] Height 72 inches 6'0" Weight 220.00 lb [place] Body Weight 178 lb BMI (Body Mass Index) 29.8 kg/m2 01/23/2020 8:34am BP Systolic 122 mmHg BP Diastolic 66 mmHg Body Temperature 97.6 F Heart Rate 64 /min Respiratory Rate 14 /min Height 72 inches 6'0" Weight 221.00 lb [place] Body Weight 178 lb BMI (Body Mass Index) 30.0 kg/m2 O2 % BldC Oximetry 93 % Results Test Acquired Date Facility Test Result H/L Range Note U/A DIP FPA 03/25/[facility] Color Urine RED Yellow Appearance CLEAR Clear Specific [place] 1.005 1.00-1.03 PH Urine 9.0 High 5.0-8.0 Glucose Urine TRACE Negative Bilirubin Urine 3+ High Negative Ketones 3+ High Negative Blood Urine 3+ High Negative Protein Urine 3+ High Negative Urobilinogen 8.0 EU/dl High 0.2-1.0 Nitrite 1+ High Negative Leukocytes 3+ High Negative CBC 03/25/2020 [facility]PA/Inhouse WBC 4.5 10E3/uL 4.1 - 10.9 1 RBC 4.26 10E6/uL 4.20 - 6.30 HGB [...] Gap 15 mmol/L eGFR 45 # Calc 2 eGFR Non-Afr. [place] 39 # Calc 3 Basic Metabolic Profile 02/06/2020 [facility] (Interface) [phone] Glucose, Fasting 95 mg/dL Normal 70-100 Blood Urea Nitrogen 25 mg/dL High 7-18 Creatinine For GFR 1.41 mg/dL High 0.70-1.30 Glomerular Filtration Rate 51.2 Normal >35 4 Sodium Level 142 mEq/L Normal 136-145 Potassium Serum 4.9 mEq/L Normal 3.5-5.1 Chloride Level 110 mEq/L High 98-107 Carbon Dioxide Level 29 mEq/L Normal 21-32 Anion Gap 3 mEq/L Low 8-16 Calcium Level 9.5 mg/dL Normal 8.8-10.2 Ua Routine 01/07/2020 [facility] (I nterface) [phone] Appearance, Urine HAZY Normal Clear Color, Urine YELLOW Normal Yellow PH,Urine 7.0 units Normal 5.0-9.0 Specific [place] Urine Auto 1.017 Normal 1.002-1.035 Protein, Urine [...] 1 /LPF Normal 0-1 Urine Culture 01/07/2020 [facility] ([facility]) [phone] Urine Culture FULL REPORT IN L <SEE NOTE> Normal 5 Iron And Tibc 12/24/2019 [facility] [place] Iron Bind.Cap.(Tibc) 235 g/dL Low 250-450 Uibc 195 g/dL 111-343 Iron 40 g/dL 38-169 Iron Saturation 17 % 15-55 CMP 12/24/2019 [facility]PA/Inhouse Glu 102 mg/dL 70 - 110 6 BUN 24 mg/dL High 8 - 23 [...] Gap 15 mmol/L eGFR 44 # Calc 7 eGFR Non-Afr. [place] 38 # Calc 8 CBC 12/24/2019 [facility]PA/Inhouse WBC 5.3 10E3/uL 4.1 [...] Variant 0.0 % 0.0 Interpretation See Comment: 9 Ua Routine 12/10/2019 [facility] ([facility]) [phone] Appearance, Urine CLEAR Normal Clear Color, Urine YELLOW Normal Yellow PH,Urine 6.0 units Normal 5.0-9.0 Specific [place] Urine Auto 1.017 Normal 1.002-1.035 Protein, Urine [...] 0 /LPF Normal 0-1 Urine Culture 12/10/2019 [facility] ([facility]) [phone] Urine Culture FULL REPORT IN L <SEE NOTE> Normal 10 CBC With Differential 12/10/2019 [facility] (Interface) [phone] White Blood Count 4.8 10 Normal 4.0-10.0 [...] 36.0-66.0 Lymph % 13.4 % Low 24.0-44.0 [place] % 9.3 % High 0.0-5.0 Eos % 4.3 % High 0.0-3.0 Baso % 0.4 % Normal 0.0-1.0 Immature Granulocyte % 0.4 % Normal 0-3.0 Nucleated Red Blood Cell % 0.0 % Normal 0-0 Neutrophils # 3.5 10 Normal 1.5-8.5 Lymph # 0.7 10 Low 1.5-5.0 [place] # 0.5 10 Normal 0.0-0.8 Eos # 0.2 10 Normal 0.0-0.5 Baso # 0.0 10 Normal 0.0-0.2 Prothrombin Time/Inr 12/10/2019 [facility] ( Interface) [phone] Prothrombin Time 18.7 seconds High 12.5-14.3 Inr 1.53 Normal 11 Basic Metabolic Profile 12/10/2019 [facility] (Interface) [phone] Glucose, Fasting 98 mg/dL Normal 70-100 Blood Urea Nitrogen 23 mg/dL High 7-18 Creatinine For GFR 1.26 mg/dL Normal 0.70-1.30 Glomerular Filtration Rate 58.3 Normal >35 1 2 Sodium Level 142 mEq/L Normal 136-145 Potassium Serum 4.8 mEq/L Normal 3.5-5.1 Chloride Level 107 mEq/L Normal 98-107 Carbon Dioxide Level 31 mEq/L Normal 21-32 Anion Gap 4 mEq/L Low 8-16 Calcium Level 8.7 mg/dL Low 8.8-10.2 Complete Blood Count 12/10/2019 [facility] ( Interface) [phone] White Blood Count 4.8 10 Normal 4.0-10.0 [...] Cell % 0.0 % Normal 0-0 1 NORMAL RANGES Age WBC RBC HGB HCT [...] HCT IS 5% LESS SOURCE FOR DATA: [employer] 1800 OPERATION MANUAL( AUTOMATED BLOOD COUNTS AND [...] Normal 80 and above >32 mL/min Normal 2 CKD-EPI 3 CKD-EPI 4 Units are mL/min/1.73 m2 Chronic Kidney Disease Staging per NKF: Stage I & II GFR >=60 Normal to Mildly Decreased Stage III GFR 30-59 Moderately Decreased Stage IV GFR 15-29 Severely Decreased Stage V GFR <15 Very Little GFR Left ESRD GFR <15 on GRAIN CLEANER AND TRANSFER OPERATOR 5 FULL REPORT IN LAB NOTES (eC W and Medent). NO GROWTH 6 NORMAL RANGES Age WBC RBC HGB HCT [...] HCT IS 5% LESS SOURCE FOR DATA: [employer] 1800 OPERATION MANUAL( AUTOMATED BLOOD COUNTS AND [...] ADOLESCENTS REPRESENTS INDIVIDUALA AGED 2-19 YEARS EXCLUSIVE. 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 Suggest hematologic and clinical correlation. 10 FULL REPORT IN LAB NOTES (eC W and Medent). NO GROWTH 11 THERAPUTIC HUMAN INR VALUES INDICATIONS NORMAL RANGES PROPHYLAXIS/TREATMENT OF: VENOUS THROMBOSIS 2.0-3.0 PULMONARY EMBOLISM 2.0-3.0 PREVENTION OF SYSTEMIC EMBOLISM FROM: TISSUE HEART VALVES 2.0-3.0 ACUTE MYOCARDIAL INFARCTION 2.0-3.0 VALVULAR HEART DISEASE 2.0-3.0 ATRIAL FIBRILLATION 2.0-3.0 MECHANICAL VALVES(HIGH RISK) 2.5-3.5 RECURRENT MYOCARDIAL INFARCTION 2.5-3.5 12 Units are mL/min/1.73 m2 Chronic Kidney Disease Staging per NKF: Stage I & II GFR >=60 Normal to Mildly Decreased Stage III GFR 30-59 Moderately Decreased Stage IV GFR 15-29 Severely Decreased Stage V GFR <15 Very Little GFR Left ESRD GFR <15 on GRAIN CLEANER AND TRANSFER OPERATOR Procedures Description No Information Available Medical Devices Description No Information Available Encounters Type Date Location Provider Dx Diagnosis Office Visit 03/25/2020 8:45a [place] [facility] Harjinder Farfan M. D. C67.9 Malignant neoplasm of bladder, unspecified R31.9 Hematuria, unspecified Office Visit 01/23/2020 9:00a [place] [facility] Harjinder Farfan M. D. 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 D. M54.9 Dorsalgia, [...] 01/23/2020 I25.10 Atherosclerotic hear t disease of [place] coronary artery without angina pectoris Harjinder Farfan M.D. 12/24/2019 M54.9 Dorsalgia, unspecified Harjinder Farfan M.D. 12/24/2019 Z00.00 Encounter for genera l adult medical examination without abnormal findings Harjinder Farfan M.D. 12/24/2019 I25.10 Atherosclerotic hear t disease of [place] coronary artery without angina pectoris Harjinder Farfan M.D. 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 Plan of Treatment Future Appointment(s):* 04/04/2020 1:00 pm - Harjinder Farfan M.D. at [facility] * 07/23/2020 9:00 am - Harjinder Farfan M.D. at [facility] Functional Status Description No Information Available Mental Status Description No Information Available Referrals Description No Information Available
--- OUTSIDE RECORDS SUMMARY | 2020-04-26 00:47 | CCD | Continuity of Care Document ---
Author Author Jean FARFAN M.D. Organization Unknown Address [address] [address] Phone [phone] Care Team Providers Care Injection Machine Operator Name Role Phone Cornelius Dean M.D. [facility] [phone] Problems Active Problems Provider Date Coronary atherosclerosis [...] Available Vital Signs Date Vital Result Comment 01/23/2020 8:34am BP Systolic 122 mmHg BP Diastolic 66 mmHg Body Temperature 97.6 F Heart Rate 64 /min Respiratory Rate 14 /min Height 72 inches 6'0" Weight 221.00 lb [place] Body Weight 178 lb BMI (Body Mass Index) 30.0 kg/m2 O2 % BldC Oximetry 93 % 12/24/2019 1:18pm BP Systolic 124 mmHg BP Diastolic 68 mmHg Body Temperature 98.4 F Heart Rate 66 /min Respiratory Rate 16 /min Height 72 inches 6'0" Weight 219.00 lb [place] Body Weight 160 lb BMI (Body Mass Index) 29.7 kg/m2 O2 % BldC Oximetry 92 % Results Test Acquired Date Facility Test Result H/L Range Note U/A DIP FPA 03/25/2020 [facility] Color Urine RED Yellow Appearance CLEAR Clear Specific [place] 1.005 1.00-1.03 PH Urine 9.0 High 5.0-8.0 Glucose Urine TRACE Negative Bilirubin Urine 3+ High Negative Ketones 3+ High Negative Blood Urine 3+ High Negative Protein Urine 3+ High Negative Urobilinogen 8.0 EU/dl High 0.2-1.0 Nitrite 1+ High Negative Leukocytes 3+ High Negative Basic Metabolic Profile 02/[facility]Interface[facility] [phone] Glucose, Fasting 95 mg/dL Normal 70-100 Blood [...] 9.5 mg/dL Normal 8.8-10.2 Ua Routine 01/07/2020 [facility]) [phone] Appearance, Urine HAZY Normal Clear Color, Urine YELLOW Normal Yellow PH,Urine 7.0 units Normal 5.0-9.0 Specific [place] Urine Auto 1.017 Normal 1.002-1.035 Protein, Urine [...] 1 /LPF Normal 0-1 Urine Culture 01/07/2020 [facility]) [phone] Urine Culture FULL REPORT IN L <SEE [...] eGFR 44 # Calc 4 eGFR Non-Afr. [place] 38 # Calc 5 CBC 12/24/2019 FPA/Inhouse [...] Interpretation See Comment: 6 Ua Routine 12/10/2019 [facility] ( [facility]) [phone] Appearance, Urine CLEAR Normal Clear Color, Urine YELLOW Normal Yellow PH,Urine 6.0 units Normal 5.0-9.0 Specific [place] Urine Auto 1.017 Normal 1.002-1.035 Protein, Urine [...] Normal 0-1 Urine Culture 12/10/2019 [facility] ( [facility]) [phone] Urine Culture FULL REPORT IN L <SEE NOTE> Normal 7 CBC With Differential 12/10/2019 [facility] (Interface) [phone] White Blood Count 4.8 10 Normal 4.0-10.0 [...] 36.0-66.0 Lymph % 13.4 % Low 24.0-44.0 [place] % 9.3 % High 0.0-5.0 Eos % 4.3 % High 0.0-3.0 Baso % 0.4 % Normal 0.0-1.0 Immature Granulocyte % 0.4 % Normal 0-3.0 Nucleated Red Blood Cell % 0.0 % Normal 0-0 Neutrophils # 3.5 10 Normal 1.5-8.5 Lymph # 0.7 10 Low 1.5-5.0 [place] # 0.5 10 Normal 0.0-0.8 Eos # 0.2 10 Normal 0.0-0.5 Baso # 0.0 10 Normal 0.0-0.2 Prothrombin Time/Inr 12/10/2019 [facility] ( Interface) [phone] Prothrombin Time 18.7 seconds High 12.5-14.3 Inr 1.53 Normal 8 Basic Metabolic Profile 12/10/2019 [facility] (Interface) [phone] Glucose, Fasting 98 mg/dL Normal 70-100 Blood [...] 8.8-10.2 Complete Blood Count 12/10/2019 [facility] ( Interface) [phone] White Blood Count 4.8 10 Normal 4.0-10.0 [...] Little GFR Left ESRD GFR <15 on SPRAY UNIT FEEDER 2 FULL REPORT IN LAB NOTES (eC W and Medtess). NO GROWTH 3 NORMAL RANGES Age WBC [...] HCT IS 5% LESS SOURCE FOR DATA: [employer] 1800 OPERATION MANUAL( AUTOMATED BLOOD COUNTS AND [...] Little GFR Left ESRD GFR <15 on SPRAY UNIT FEEDER Procedures Description No Information Available Medical Devices Description No Information Available Encounters Type Date Location Provider Dx Diagnosis Office Visit 03/25/2020 8:45a [place] [facility] Harjinder Farfan M. D. C67.9 Malignant neoplasm of bladder, unspecified R31.9 Hematuria, unspecified Office Visit 01/23/2020 9:00a [place] [facility] Harjinder Farfan M. D. 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 D. M54.9 Dorsalgia, unspecified [...] 01/23/2020 I25.10 Atherosclerotic hear t disease of [place] coronary artery without angina pectoris Harjinder Farfan M.D. 12/24/2019 M54.9 Dorsalgia, unspecified Harjinder Farfan M.D. 12/24/2019 Z00.00 Encounter for genera l adult medical examination without abnormal findings Harjinder Farfan M.D. 12/24/2019 I25.10 Atherosclerotic hear t disease of [place] coronary artery without angina pectoris Harjinder Farfan M.D. 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 Plan of Treatment Future Appointment(s):* 04/04/2020 1:00 pm - Harjinder Farfan M.D. at [facility] * 07/23/2020 9:00 am - Harjinder Farfan M.D. at [facility] Functional Status Description No Information Available Mental Status Description No Information Available Referrals Description No Information Available
--- OUTSIDE RECORDS SUMMARY | 2020-04-26 00:47 | CCD | Continuity of Care Document ---
Author Author Jean FARFAN M.D. Organization Unknown Address [address] [address] Phone [phone] Care Team Providers Care Departure Clerk Name Role Phone Cornelius Dean M.D. [facility] [phone] Problems Active Problems Provider Date Coronary atherosclerosis [...] 3 doses as needed for chest pain oCrnelius Dean M.D. Multivitamin Tablets 1 by mouth [...] Height 72 inches 6'0" Weight 220.00 lb [place] Body Weight 178 lb BMI (Body Mass Index) 29.8 kg/m2 01/23/2020 8:34am BP Systolic 122 mmHg BP Diastolic 66 mmHg Body Temperature 97.6 F Heart Rate 64 /min Respiratory Rate 14 /min Height 72 inches 6'0" Weight 221.00 lb [place] Body Weight 178 lb BMI (Body Mass Index) 30.0 kg/m2 O2 % BldC Oximetry 93 % Results Test Acquired Date Facility Test Result H/L Range Note U/A DIP FPA 03/25/2020 [facility] Color Urine RED Yellow Appearance CLEAR Clear Specific [place] 1.005 1.00-1.03 PH Urine 9.0 High 5.0-8.0 [...] eGFR 45 # Calc 2 eGFR Non-Afr. Thai 39 # Calc 3 Basic Metabolic Profile 02/06/2020 [facility] (Interface) [phone] Glucose, Fasting 95 mg/dL Normal 70-100 Blood [...] 9.5 mg/dL Normal 8.8-10.2 Ua Routine 01/07/2020 [facility] (I nterface) [phone] Appearance, Urine HAZY Normal Clear Color, Urine YELLOW Normal Yellow PH,Urine 7.0 units Normal 5.0-9.0 Specific [place] Urine Auto 1.017 Normal 1.002-1.035 Protein, Urine [...] 1 /LPF Normal 0-1 Urine Culture 01/07/2020 [facility] ([facility]) [phone] Urine Culture FULL REPORT IN L <SEE [...] eGFR 44 # Calc 7 eGFR Non-Afr. Thai 38 # Calc 8 CBC 12/24/2019 FPA/Inhouse [...] Interpretation See Comment: 9 Ua Routine 12/10/2019 [facility] ([facility]) [phone] Appearance, Urine CLEAR Normal Clear Color, Urine YELLOW Normal Yellow PH,Urine 6.0 units Normal 5.0-9.0 Specific [place] Urine Auto 1.017 Normal 1.002-1.035 Protein, Urine [...] 0 /LPF Normal 0-1 Urine Culture 12/10/2019 [facility] ([facility]) [phone] Urine Culture FULL REPORT IN L <SEE NOTE> Normal 10 CBC With Differential 12/10/2019 [facility] (Interface) [phone] White Blood Count 4.8 10 Normal 4.0-10.0 [...] 36.0-66.0 Lymph % 13.4 % Low 24.0-44.0 [place] % 9.3 % High 0.0-5.0 Eos % 4.3 % High 0.0-3.0 Baso % 0.4 % Normal 0.0-1.0 Immature Granulocyte % 0.4 % Normal 0-3.0 Nucleated Red Blood Cell % 0.0 % Normal 0-0 Neutrophils # 3.5 10 Normal 1.5-8.5 Lymph # 0.7 10 Low 1.5-5.0 [place] # 0.5 10 Normal 0.0-0.8 Eos # 0.2 10 Normal 0.0-0.5 Baso # 0.0 10 Normal 0.0-0.2 Prothrombin Time/Inr 12/10/2019 [facility] ( Interface) [phone] Prothrombin Time 18.7 seconds High 12.5-14.3 Inr 1.53 Normal 11 Basic Metabolic Profile 12/10/2019 [facility] (Interface) [phone] Glucose, Fasting 98 mg/dL Normal 70-100 Blood [...] mg/dL Low 8.8-10.2 Complete Blood Count 12/10/2019 [facility] ( Interface) [phone] White Blood Count 4.8 10 Normal 4.0-10.0 [...] HCT IS 5% LESS SOURCE FOR DATA: [employer] 1800 OPERATION MANUAL( AUTOMATED BLOOD COUNTS AND [...] Little GFR Left ESRD GFR <15 on CAFE AIDE 5 FULL REPORT IN LAB NOTES (eC [...] HCT IS 5% LESS SOURCE FOR DATA: [employer] 1800 OPERATION MANUAL( AUTOMATED BLOOD COUNTS AND [...] Little GFR Left ESRD GFR <15 on CAFE AIDE Procedures Description No Information Available Medical Devices Description No Information Available Encounters Type Date Location Provider Dx Diagnosis Office Visit 03/25/2020 8:45a [place] [facility] Harjinder Farfan M. D. C67.9 Malignant neoplasm of bladder, unspecified R31.9 Hematuria, unspecified Office Visit 01/23/2020 9:00a [place] [facility] Harjinder Farfan M. D. 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 D. M54.9 Dorsalgia, [...] 01/23/2020 I25.10 Atherosclerotic hear t disease of [place] coronary artery without angina pectoris Harjinder Farfan M.D. 12/24/2019 M54.9 Dorsalgia, unspecified Harjinder Farfan M.D. 12/24/2019 Z00.00 Encounter for genera l adult medical examination without abnormal findings Harjinder Farfan M.D. 12/24/2019 I25.10 Atherosclerotic hear t disease of [place] coronary artery without angina pectoris Harjinder Farfan M.D. 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 Plan of Treatment Future Appointment(s):* 04/04/2020 1:00 pm - Harjinder Farfan M.D. at [facility] * 07/23/2020 9:00 am - Harjinder Farfan M.D. at [facility] Functional Status Description No Information Available Mental Status Description No Information Available Referrals Description No Information Available
--- OUTSIDE RECORDS SUMMARY | 2020-04-26 00:47 | CCD | Continuity of Care Document ---
Author Author Jean FARFAN M.D. Organization Unknown Address [address] [address] Phone [phone] Care Team Providers Care Drum Plater Name Role Phone Cornelius Dean M.D. [facility] [phone] Problems Active Problems Provider Date Coronary atherosclerosis [...] hours as needed for pain OTC Unknown 000 Tums 500mg Chewtabs 1 by mouth as needed OTC Unknown Immunizations Description No Information Available Vital Signs Date Vital Result Comment 01/23/2020 8:34am BP Systolic 122 mmHg BP Diastolic 66 mmHg Body Temperature 97.6 F Heart Rate 64 /min Respiratory Rate 14 /min Height 72 inches 6'0" Weight 221.00 lb [place] Body Weight 178 lb BMI (Body Mass Index) 30.0 kg/m2 O2 % BldC Oximetry 93 % 12/24/2019 1:18pm BP Systolic 124 mmHg BP Diastolic 68 mmHg Body Temperature 98.4 F Heart Rate 66 /min Respiratory Rate 16 /min Height 72 inches 6'0" Weight 219.00 lb [place] Body Weight 160 lb BMI (Body Mass Index) 29.7 kg/m2 O2 % BldC Oximetry 92 % Results Test Acquired Date Facility Test Result H/L Range Note Basic Metabolic Profile 02/06/2020 [facility] (Interface) [phone] Glucose, Fasting 95 mg/dL Normal 70-100 Blood [...] 9.5 mg/dL Normal 8.8-10.2 Ua Routine 01/07/2020 [facility] (I nterface) [phone] Appearance, Urine HAZY Normal Clear Color, Urine YELLOW Normal Yellow PH,Urine 7.0 units Normal 5.0-9.0 Specific [place] Urine Auto 1.017 Normal 1.002-1.035 Protein, Urine [...] 1 /LPF Normal 0-1 Urine Culture 01/07/2020 [facility] ([facility]) [phone] Urine Culture FULL REPORT IN L <SEE NOTE> Normal 2 Hemoglobinopathy Profile 12/24/2019 [facility] [place] Hgb Solubility Negative Negative Hgb F 0.5 % 0.0-2.0 Hgb A 95.9 % Low 96.4-98.8 Hgb S 0.0 % 0.0 Hgb C 0.0 % 0.0 Hgb A2 3.6 % High 1.8-3.2 Hgb Variant 0.0 % 0.0 Interpretation See Comment: 3 Iron And Tibc 12/24/2019 [facility] [place] Iron Bind.Cap.(Tibc) 235 g/dL Low 250-450 Uibc 195 g/dL 111-343 Iron 40 g/dL 38-169 Iron Saturation 17 % 15-55 CMP 12/24/2019 FPA/Inhouse Glu 102 mg/dL 70 - 110 4 BUN 24 mg/dL High 8 - 23 [...] Gap 15 mmol/L eGFR 44 # Calc 5 eGFR Non-Afr. [place] 38 # Calc 6 CBC 12/24/2019 FPA/Inhouse WBC 5.3 10E3/uL 4.1 [...] FPA/Inhouse TSH 2.040 ulU/mL 0.60 - 4.8 Ua Routine 12/10/2019 [facility] ([facility]) [phone] Appearance, Urine CLEAR Normal Clear Color, Urine YELLOW Normal Yellow PH,Urine 6.0 units Normal 5.0-9.0 Specific [place] Urine Auto 1.017 Normal 1.002-1.035 Protein, Urine [...] 0 /LPF Normal 0-1 Urine Culture 12/10/2019 [facility] [phone] Urine Culture FULL REPORT IN L <SEE NOTE> Normal 7 CBC With Differential 12/10/2019 [facility] (Interface) [phone] White Blood Count 4.8 10 Normal 4.0-10.0 [...] 36.0-66.0 Lymph % 13.4 % Low 24.0-44.0 [place] % 9.3 % High 0.0-5.0 Eos % 4.3 % High 0.0-3.0 Baso % 0.4 % Normal 0.0-1.0 Immature Granulocyte % 0.4 % Normal 0-3.0 Nucleated Red Blood Cell % 0.0 % Normal 0-0 Neutrophils # 3.5 10 Normal 1.5-8.5 Lymph # 0.7 10 Low 1.5-5.0 [place] # 0.5 10 Normal 0.0-0.8 Eos # 0.2 10 Normal 0.0-0.5 Baso # 0.0 10 Normal 0.0-0.2 Prothrombin Time/Inr 12/10/2019 [facility] ( Interface) [phone] Prothrombin Time 18.7 seconds High 12.5-14.3 Inr 1.53 Normal 8 Basic Metabolic Profile 12/10/2019 [facility] (Interface) [phone] Glucose, Fasting 98 mg/dL Normal 70-100 Blood [...] mg/dL Low 8.8-10.2 Complete Blood Count 12/10/2019 [facility] ( Interface) [phone] White Blood Count 4.8 10 Normal 4.0-10.0 [...] Little GFR Left ESRD GFR <15 on TRUCK DESPATCHER 2 FULL REPORT IN LAB NOTES (eC W and Medent). 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 Suggest hematologic and clinical correlation. 4 NORMAL RANGES Age WBC RBC HGB [...] HCT IS 5% LESS SOURCE FOR DATA: [employer] 1800 OPERATION MANUAL( AUTOMATED BLOOD COUNTS AND [...] ADOLESCENTS REPRESENTS INDIVIDUALA AGED 2-19 YEARS EXCLUSIVE. 5 CKD-EPI 6 CKD-EPI 7 FULL REPORT IN LAB NOTES (eC [...] Little GFR Left ESRD GFR <15 on TRUCK DESPATCHER Procedures Description No Information Available Medical Devices Description No Information Available Encounters Type Date Location Provider Dx Diagnosis Office Visit 03/25/2020 8:45a [place] [facility] Harjinder Farfan M. D. C67.9 Malignant neoplasm of bladder, unspecified R31.9 Hematuria, unspecified Office Visit 01/23/2020 9:00a [place] [facility] Harjinder Farfan M. D. 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 D. M54.9 Dorsalgia, [...] 01/23/2020 I25.10 Atherosclerotic hear t disease of [place] coronary artery without angina pectoris Harjinder Farfan M.D. 12/24/2019 M54.9 Dorsalgia, unspecified Harjinder Farfan M.D. 12/24/2019 Z00.00 Encounter for genera l adult medical examination without abnormal findings Harjinder Farfan M.D. 12/24/2019 I25.10 Atherosclerotic hear t disease of [place] coronary artery without angina pectoris Harjinder Farfan M.D. 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 Plan of Treatment Future Appointment(s):* 07/23/2020 9:00 am - Harjinder Farfan M.D. at [facility] Functional Status Description No Information Available Mental Status Description No Information Available Referrals Description No Information Available
--- OUTSIDE RECORDS SUMMARY | 2020-04-26 00:48 | CCD | Continuity of Care Document ---
Author Author Jean GARCIA PA-C Organization Unknown Address [address] [place] [address], [place] [address] Phone [phone] Care Team Providers Care Dye Maker Name Role Phone Mckayla Garcia-C AUTM [phone] Maria Teresa Estrada MD AUTM [phone] Tyrel Jorge MD AUTM [phone] Momo Macedo MD AUTM [phone] Sheldon Bianchi MD AUTM [phone] Amy Cruz AUTM [phone] Harjinder Carvajal MD AUTM [phone] Problems Active Problems Provider Date Coronary arteriosclerosis Stress Nuclear/Reg Treadmill Onset : 12/12/2014 Old myocardial infarction Mckayla Garcia, PA-C Onset: 2011 Patient post percutaneous transluminal coronary angiop lasty Mckayla Garcia PA-C Onset: 09/16/2016 Ventricular fibrillation Mckayla Garcia, PA-C Onset: 012 Chronic ischemic heart disease Mckayla Garcia, PA-C Onset: 0 03/19/2011 Essential hypertension Mckayla Garcia, PA-C Onset: 5 Chronic atrial fibrillation Mckayla Garcia, PA-C Onset: 10/30 Aortic valve disorder Mckayla Garcia, PA-C Onset: 09/16/2016 Mitral valve disorder Mckayla Garcia, PA-C Onset: 09/16/2016 Electrocardiogram abnormal Mckayla Garcia, PA-C Onset: 03/19 Premature beats Mckayla Garcia PA-C Onset: 03/10/2016 Pure hypercholesterolemia TAWANNA OrozcoC Onset: 2011 Obesity Mckayla Garcia PA-C Onset: 03/19/2011 Dietary management surveillance Mckayla Garcia PA-C Onset: 09/16/2016 Atrial flutter Mckayla Garcia PA-C Onset: 07/11/2018 Sinus node dysfunction Mckayla Garcia PA-C Onset: 0 Cardiac pacemaker in situ Mckayla Garcia PA-C Onset: 2019 Permanent atrial fibrillation Mckayla Garcia PA-C Onset: History of coronary artery bypass grafting Edwar Orozco Onset: 01/14/2020 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 Type Date Description [...] Exercise Type/Frequency Does housework twice a w viejas Exercise Limitations Back Pain lower Exercise Limitations [...] Tablets 1 by mouth twice a day 60tabs Phani Hoover MD 12/13/2019 Calcium 500 + D [id number] Tab lets 1 by mouth once daily [...] a day for edema Unknown 10/12/2019 Ipratropium [place] 0.02% Solution 2 sprays into each nostril [...] mg Tuesday and Unknown 10/28/2019 - 12/13/2019 Ascorbic Acid 500mg Tablets 1 by mouth every day Unknown 10/11/2019 - Ferrous Gluconate 324(38Fe) mg Tab lets 1 by mouth three times a day Unknown 10/10 - 11/11/2019 Furosemide 40mg Tablets 1 by mouth two times a day for edema Unknown 10/11/2019 - 11/11/2019 Potassium Chloride ER 20Meq Tablet s ER 1 by mouth twice a day Unknown 10/11/2019 - 11/11/2019 Tamsulosin HCL 0.4mg Capsules 1 by mouth twice a day Unknown 10/10/2019 - Plavix 75mg Tablets 1 by mouth every day 30tabs Phani Hoover MD 08/07/2019 - 020 Immunizations Description No Information Available Vital Signs [...] H/L Range Note Basic Metabolic Profile 01/31/2020 [facility] [phone] Glucose, Fasting 101 mg/dL High 70-100 Blood [...] mg/dL Normal 8.8-10.2 Complete Blood Count 01/31/2020 [facility] [phone] White Blood Count 4.8 10 Normal 4.0-10.0 [...] % Saturation 17 Complete Blood Count 12/10/2019 [facility] - add-on lab [address] [place] [address] (315)- - White Blood Count 4.8 10 [...] 0.0 % Normal 0-0 Prothrombin Time/Inr 12/03/2019 [facility] C enter [phone] Prothrombin Time 20.4 seconds High 12.5-14.3 Inr 1.70 Normal 2 PT/Inr 11/21/2019 [facility] Ce nter [phone] Prothrombin Time 34.2 seconds High 12.5-14.3 Inr 3.28 Normal 3 Basic Metabolic Profile 11/21/2019 [facility] [phone] Glucose, Fasting 98 mg/dL Normal 70-100 Blood Urea Nitrogen 20 mg/dL High 7-18 Creatinine For GFR 1.31 mg/dL High 0.70-1.30 Glomerular Filtration Rate 55.8 Normal >35 4 Sodium Level 142 mEq/L Normal 136-145 Potassium Serum 4.7 mEq/L Normal 3.5-5.1 Chloride Level 109 mEq/L High 98-107 Carbon Dioxide Level 29 mEq/L Normal 21-32 Anion Gap 4 mEq/L Low 8-16 Calcium Level 8.9 mg/dL Normal 8.8-10.2 Complete Blood Count 11/21/2019 [facility] enter [phone] White Blood Count 5.0 10 Normal 4.0-10.0 [...] Blood Cell % 0.0 % Normal 0-0 Complete Blood Count 11/14/2019 [facility] enter [phone] White Blood Count 4.9 10 Normal 4.0-10.0 [...] % Normal 0-0 Basic Metabolic Profile 11/14/2019 [facility] [phone] Glucose, Fasting 95 mg/dL Normal 70-100 Blood [...] Level 9.0 mg/dL Normal 8.8-10.2 PT/Inr 10/29/2019 [facility] nter [phone] Prothrombin Time 19.8 seconds High 11.8-14.0 Inr 1.64 Normal 6 CBC without Differential 10/18/2019 [facility] (315)- - White Blood Count 4.4 4.3-10.9 Red Blood Count -- Low 4.70-6.20 Platelets 152 130-400 Hemoglobin 9.0 Low 13.0-17.0 Hematocrit 27.8 Low 39.0-50.0 CMP 10/18/2019 [facility] (315)- - Albumin Serum/Plasma -- Alt - SGPT 24 Calcium Ser/Plasma Mass/Vol -- Carbon Dioxide Ser/Plasm 33 Chloride Serum/Plasma 105 Alkaline Phosphatase -- Potassium 3.8 Protein Total -- Sodium 142 Ast - Sgot 16 BUN - Urea Nitrogen 36 Glucose -- Low 70-100 Creatinine For GFR 1.72 Laboratory test finding 10/18/2019 [facility] (315)- - Hemoglobin A1c 5.7 Hemoglobin A1c 09/17/2019 [facility] (315)- - Hemoglobin A1c 5.7 CBC without Differential 08/13/2019 [facility] (315)- - White Blood Count 58.8 High 4.3-10.9 Red Blood Count 5.76 4.70-6.20 Platelets 197 130-400 Hemoglobin 12.9 Low 13.0-17.0 Hematocrit 40.8 39.0-50.0 BMP 08/13/2019 [facility] (315)- - Calcium Ser/Plasma Mass/Vol 9.7 Sodium 139 Carbon Dioxide Ser/Plasm 27 Chloride Serum/Plasma 107 Potassium 4.9 Glucose 93 70-100 Blood Urea Nitrogen 23 High 5-21 Creatinine 1.15 0.6-1.5 G F R >60.0 1 Units are mL/min/1.73 m2 Chronic Kidney Disease Staging per NKF: Stage I & II GFR >=60 Normal to Mildly Decreased Stage III GFR 30-59 Moderately Decreased Stage IV GFR 15-29 Severely Decreased Stage V GFR <15 Very Little GFR Left ESRD GFR <15 on THEATER TEACHER 2 THERAPUTIC HUMAN INR VALUES INDICATIONS NORMAL RANGES PROPHYLAXIS/TREATMENT OF: VENOUS THROMBOSIS 2.0-3.0 PULMONARY EMBOLISM 2.0-3.0 PREVENTION OF SYSTEMIC EMBOLISM FROM: TISSUE HEART VALVES 2.0-3.0 ACUTE MYOCARDIAL INFARCTION 2.0-3.0 VALVULAR HEART DISEASE 2.0-3.0 ATRIAL FIBRILLATION 2.0-3.0 MECHANICAL VALVES(HIGH RISK) 2.5-3.5 RECURRENT MYOCARDIAL INFARCTION 2.5-3.5 3 THERAPUTIC HUMAN INR VALUES INDICATIONS NORMAL RANGES PROPHYLAXIS/TREATMENT OF: VENOUS THROMBOSIS 2.0-3.0 PULMONARY EMBOLISM 2.0-3.0 PREVENTION OF SYSTEMIC EMBOLISM FROM: TISSUE HEART VALVES 2.0-3.0 ACUTE MYOCARDIAL INFARCTION 2.0-3.0 VALVULAR HEART DISEASE 2.0-3.0 ATRIAL FIBRILLATION 2.0-3.0 MECHANICAL VALVES(HIGH RISK) 2.5-3.5 RECURRENT MYOCARDIAL INFARCTION 2.5-3.5 4 Units are mL/min/1.73 m2 Chronic Kidney Disease Staging per NKF: Stage I & II GFR >=60 Normal to Mildly Decreased Stage III GFR 30-59 Moderately Decreased Stage IV GFR 15-29 Severely Decreased Stage V GFR <15 Very Little GFR Left ESRD GFR <15 on THEATER TEACHER 5 Units are mL/min/1.73 m2 Chronic Kidney Disease Staging per NKF: Stage I & II GFR >=60 Normal to Mildly Decreased Stage III GFR 30-59 Moderately Decreased Stage IV GFR 15-29 Severely Decreased Stage V GFR <15 Very Little GFR Left ESRD GFR <15 on THEATER TEACHER 6 THERAPUTIC HUMAN INR VALUES INDICATIONS NORMAL RANGES PROPHYLAXIS/TREATMENT OF: VENOUS THROMBOSIS 2.0-3.0 PULMONARY EMBOLISM 2.0-3.0 PREVENTION OF SYSTEMIC EMBOLISM FROM: TISSUE HEART VALVES 2.0-3.0 ACUTE MYOCARDIAL INFARCTION 2.0-3.0 VALVULAR HEART DISEASE 2.0-3.0 ATRIAL FIBRILLATION 2.0-3.0 MECHANICAL VALVES(HIGH RISK) 2.5-3.5 RECURRENT MYOCARDIAL INFARCTION 2.5-3.5 Procedures Date Code Description Status 01/14/2020 77601 ECG 12-Lead Completed 12/14/2019 27321 Anticoagulant MGMT F or Patient Taking Warfarin, Inc Review & Intr Completed 12/03/2019 15203 Anticoagulant MGMT F or Patient Taking Warfarin, Inc Review & Intr Completed 11/21/2019 59267 Anticoagulant MGMT F or Patient Taking Warfarin, Inc Review & Intr Completed 11/12/2019 08872 Pacer Programming Single Lead Co mpleted 11/12/2019 34870 ECG 12-Lead Completed 10/30/2019 19189 Anticoagulant MGMT F or Patient Taking Warfarin, Inc Review & Intr Completed 10/26/2019 25616 Anticoagulant MGMT F or Patient Taking Warfarin, Inc Review & Intr Completed 08/06/2019 60940 Treadmill/Pharmacological [place]ito ring Completed 08/06/2019 11420 Myocardial Perfusion Spect Multi ple Completed Medical Devices Description No Information Available Encounters Type Date Location Provider Dx Diagnosis Office Visit 01/14/2020 9:45a Main Office Mckayla Garcia PA-C I25.1 0 Athscl heart disease of [place] coronary artery w/o ang pctrs Z95.5 Presence [...] Office Visit 11/12/2019 3:00p Main Office Mckayla E Symenow, PA-C Z95.1 Presence of aortocoronary bypass graft I49.5 Sick sinus syndrome Z01.810 Encounter for preprocedural cardiovascular examination Office Visit 10/30/2019 12:34p Main Office Phani Hoover MD I10 Essential (primary) hypertension I48.21 Permanent atrial fibrillatio n I35.1 Nonrheumatic aortic (valve) insufficiency I34.0 Nonrheumatic mitral (valve) insufficiency Office Visit 08/28/2019 3:31p Main Office Phani Hoover MD I10 Essential (primary) hypertension I48.21 Permanent atrial fibrillatio n I25.5 Ischemic cardiomyopathy I49.01 Ventricular fibrillation Assessments Date Code Description Provider 01/14/2020 I25.10 Atherosclerotic heart disease of [place] coronary artery with Mckayla Garcia PA-C 01/14/2020 Z95.5 Presence of coronary angioplasty implant and graft Mckayla Garcia, PA-C 01/14/2020 I49.01 Ventricular fibrillation Mckayla Garcia PA-C 01/14/2020 Z95.1 Presence of aortocoronary bypass graft Mckayla Garcia, PA-C 01/14/2020 I25.5 Ischemic cardiomyopathy Mckayla arenas, PA-C 01/14/2020 I10 Essential (primary) hypertension Mckayla Garcia, PA-C 01/14/2020 I48.21 Permanent atrial fibrillation Deepa kaylee Garcia, PA-C 01/14/2020 I48.3 Typical atrial flutter Mckayla ruano, PA-C 01/14/2020 I35.1 Nonrheumatic aortic (valve) insu fficiency Mckayla Garcia, PA-C 01/14/2020 I34.0 Nonrheumatic mitral (valve) insu fficiency Mckayla Garcia, PA-C 01/14/2020 R94.31 Abnormal electrocardiogram [ECG] [EKG] Mckayla Garcia, PA-C 01/14/2020 I49.3 Ventricular premature depolariza tion Mckayla Garcia, PA-C 01/14/2020 E78.00 Pure hypercholesterolemia, unspe cified Mckayla Garcia, PA-C 01/14/2020 I49.5 Sick sinus syndrome Mckayla ferrara PA-C 01/14/2020 Z95.0 Presence of cardiac pacemaker Deepa Fay Melvi PA-C 01/14/2020 Z71.3 Dietary counseling and surveilla nce Mckayla Garcia PA-C 12/14/2019 I48.21 Permanent atrial fibrillation Jack Hoover MD 12/14/2019 Z95.1 Presence of aortocoronary bypass graft Phani Hoover MD 12/03/2019 I48.21 Permanent atrial fibrillation Deepa GARRET Feliciano-C 11/29/2019 I10 Essential (primary) hypertension Phani Hoover MD 11/29/2019 I48.21 Permanent atrial fibrillation Jack Hoover MD 11/29/2019 I35.1 Nonrheumatic aortic (valve) insu fficiency Phani Hoover MD 11/29/2019 I34.0 Nonrheumatic mitral (valve) insu fficiency Phani Hoover MD 11/21/2019 I48.21 Permanent atrial fibrillation Deepa Fay Melvi PA-C 11/21/2019 Z95.1 Presence of aortocoronary bypass graft GARRET Orozco-C 11/12/2019 Z95.1 Presence of aortocoronary bypass graft GARRET Orozco-C 11/12/2019 I49.5 Sick sinus syndrome Mckayla ferrara PA-C 11/12/2019 Z01.810 Encounter for preprocedural card iovascular examination GARRET Orozco-C 10/30/2019 I10 Essential (primary) hypertension Phani Hoovre MD 10/30/2019 I48.21 Permanent atrial fibrillation Al GARRET Garcia 10/30/2019 I48.21 Permanent atrial fibrillation Jack Hoover MD 10/30/2019 I35.1 Nonrheumatic aortic (valve) insu fficiency Phani Hoover MD 10/30/2019 I34.0 Nonrheumatic mitral (valve) insu fficiency Phani Hoover MD 10/26/2019 I48.21 Permanent atrial fibrillation Al GARRET Garcia 08/28/2019 I10 Essential (primary) hypertension Phani Hoover MD 08/28/2019 I48.21 Permanent atrial fibrillation Jack Hoover MD 08/28/2019 I25.5 Ischemic cardiomyopathy Phani Hoover MD 08/28/2019 I49.01 Ventricular fibrillation Phani Hoover MD 08/08/2019 I49.5 Sick sinus syndrome Mckayla ferrara PA-C 08/06/2019 R06.02 Shortness of breath Stress Nucle ar/Reg Treadmill 08/06/2019 I25.10 Atherosclerotic heart disease of [place] coronary artery with Stress Nuclear/Reg Treadmill 08/06/2019 R94.31 Abnormal electrocardiogram [ECG] [EKG] Stress Nuclear/Reg Treadmill Plan of Treatment Future Appointment(s):* 07/14/2020 10:15 am - Mckayla Garcia PA-C at Main Office * 02/11/2020 7:00 am - [facility] at Main Office * 11/13/2020 8:00 am - Mckayla Garcia PA-C at Main Office 01/14/2020 - Mckayla Garcia PA-C* I25.10 Atherosclerotic heart disease of [place] coronary artery with * Z95.5 Presence of [...]
--- OUTSIDE RECORDS SUMMARY | 2020-04-26 00:48 | CCD | Summary of Care ---
Author Author [facility] Organization [facility] Address Unknown Phone Unavailable Care Team Providers Care Rn Home Care Name Role Phone Harjinder Carvajal MD PCP Reason for Visit * Reason Comments Follow-up GEM/DOC #4 and appt with MD Encounter Details Care Team Description Date Type Department Grayson Macedo MD [address], [place] [id number] Malignant neoplasm of urinary bladder, u nspecified site (Primary Dx) 03/04/2020 Office Visit [facility] Urology [address] [place] [address], [place] [phone] Allergies Comments Active Allergy Reactions Severity Noted Date Bee Venom Hives High 07/08/2016 Sulfa Antibiotics Hives High 07/08/2016 documented as of this encounter (statuses as of 03/04/2020) Medications End Date Status Medication Sig Dispensed Refills Start Date Active sildenafil (VIAGRA) 100 Take 100 mg 0 MG tablet by mouth as needed for Erectile Dysfunction Active captopril (CAPOTEN) 25 MG Take 25 mg by 0 tablet mouth Two Times Daily Active amlodipine (NORVASC) 10 Take 10 mg by 0 MG tablet mouth every morning Active nitroGLYCERIN (NITROSTAT) Place 0.4 mg 0 0.4 MG SL tablet under the tongue every 5 (five) minutes as needed for Chest pain Active aspirin 81 MG tablet Take 81 mg by 0 mouth every morning Active atorvastatin (LIPITOR) 20 Take 20 mg by 0 MG tablet mouth every morning Active fluticasone (FLONASE) 50 1 spray by 0 MCG/ACT nasal spray Nasal route Two Times Daily Active TRIAMCINOLONE ACET & Inject as 0 LIDOCAINE IJ directed Active Multiple Vitamin Take 1 0 (MULTIVITAMIN) capsule capsule by mouth every morning Active dorzolamide-timolol Place 1 drop 0 (COSOPT) 22.3-6.8 MG/ML into both 7 ophthalmic solution eyes Two Times Daily Active acetaminophen (TYLENOL) Take 1,000 mg 0 500 MG tablet by mouth every 6 (six) hours as needed for Pain Active docusate sodium (COLACE) Take 100 mg 0 100 MG capsule by mouth Two times daily as needed Active ELIQUIS 5 MG tablet 5 mg Two 0 Times Daily 8 Active tamsulosin HCl (FLOMAX) Take 1 30 capsule 3 0.4 MG CAPS capsule by 8 mouth daily 04/04/2020 Active Phenazopyridine HCl 100 Take 1 tablet 9 tablet 0 MG Oral Tablet (PYRIDIUM) by mouth 0 Three times daily as needed for Pain Additional Information Patient not taking. Reported on 03/04/2020 10:56 AM Active Oxybutynin Chloride 5 MG Take one by 30 tablet 0 0 Oral Tablet (DITROPAN) mouth the 0 evening before treatment and one by mouth the morning of treatment Additional Information Patient not taking. Reported on 03/04/2020 10:56 AM Active Tamsulosin HCl 0.4 MG Take 1 60 capsule 5 10/29 Oral Capsule (FLOMAX) capsule by 0 mouth Two Times Daily Active METOPROLOL TARTRATE PO Take 12.5 mg 0 by mouth Two Times Daily Active Ferrous Gluconate 324 (38 Two Times 0 09/28 Fe) MG Oral Tablet Daily 0 (FERGON) Active Calcium 500 + D 500-125 Take by mouth 0 MG-UNIT Oral Tablet 0 (Calcium Carbonate-Vitamin D) Active Folic Acid 1 MG Oral Take by mouth 0 Tablet (FOLVITE) 0 Status Hospital, Clinic, or Ordered Dose Route Frequency Start End Date Other Facility Date Administered Medication Active DOCEtaxel (TAXOTERE) 37.5 37.5 mg IS Once 02/12/20 mg in sodium chloride 0.9 20 1 % 50 mL intravesical solution Active gemcitabine (GEMZAR) 1000 mg IS Once 02/12/20 1,000 mg in sodium 20 1 chloride 0.9 % 50 mL (20 mg/mL) intravesical solution Active gemcitabine (GEMZAR) 1000 mg IS Once 02/26/20 intravesical solution 20 1 syringe 1,000 mg documented as of this encounter (statuses as of 03/04/2020) Active Problems Problem Noted Date Beta thalassemia trait 09/03/2016 BPH (benign prostatic hyperplasia) 07/08/2016 High cholesterol Bladder cancer Cancer Staging: Clinical stage from : Stage II (T2, N0, M0) - Signed by Good Dodd MD on 01/14/20 17 Cataracts, bilateral Irregular heartbeat Heart disease Arthritis Diverticulitis Heart attack Nocturia Lung nodule Hypertension CAD (coronary artery disease) Atrial fibrillation documented as of this encounter (statuses as of 03/04/2020) 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 Date Tobacco Use Types Packs/Day Years Used Quit: 07/08/1989 Former Smoker Cigarettes 0 Smokeless Tobacco: Never Used Drinks/Week oz/Week Comments Alcohol Use No Sex Assigned at Date Recorded Not on file Date Recorded COVID-19 Exposure Response 03/04/2020 10:06 AM EST In the last month, have you been in contact with No / Unsure someone who was confirmed or suspected to have Coronavirus / COVID-19? documented as of this encounter Last Filed Vital Signs Reading Time Taken Comments Vital Sign 139/71 03/04/2020 10:52 AM EST Blood Pressure 67 03/04/2020 10:52 AM EST Pulse 36.8 C (98.2 F) 03/04/2020 10:52 AM EST Temperature 16 03/04/2020 10:52 AM EST Respiratory Rate 98% 03/04/2020 10:52 AM EST Oxygen Saturation - - Inhaled Oxygen Concentration 99.2 kg (218 lb 12.8 oz) 03/04/2020 10:52 AM EST Weight 185.4 cm (6' 0.99") 03/04/2020 10:52 AM EST Height 28.87 03/04/2020 10:52 AM EST Body Mass Index documented in this encounter Progress Notes * Grayson Macedo MD - 03/04/2020 11:00 AM EST CC: Bladder cancer Chief Complaint Patient presents with Follow-up GEM/DOC #4 and appt with MD Referring Physician: Harjinder Carvajal MD HPI: 84 y.o. gentleman who was diagnosed with bladder cancer after experiencing painless gross hematuria. A CT IVP was done which revealed a bladder mass in the dome of the bladder. He underwent a TURBT in June of 2016 at an outside facility. Pathology showed a high-grade T2 urothelial carcinoma with squamo us differentiation pathologies. He agreed with the diagnosis. He is on F toi for urinary frequency, nocturia, and oxybutynin as well, and his symptoms are under decent control. He underwent a gemcitabine and cisplatin neoadjuva nt chemotherapy. He tolerated very well, and upon his return to the office t o discuss the cystectomy, the patient did not want to have a cystectomy done. He underwent chemoradiation regimen and was doing fairly well until I scoped h im recently, and noted him to have some areas of posterior bladder wall and the dome that were suspicious. We decided to take the patient for biopsy. Hi s pathology came back as carcinoma in situ. Patient underwent a 6-week cours e of BCG therapy. 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 He did undergo 6-week course of Gemzar therapy intravesically. Patient also had a CT IVP d one in April of this year which was negative. He also had a PET scan done a month later which was negative as well. He is status post cystoscopy with ra myers bladder biopsies. 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 We decided to proceed with gemcitabine and docetaxel mixture installations . Patient had a CT IVP as well as CT of the chest. Patient's radiologic work-u p did not reveal any obvious evidence of metastatic disease except for suspiciou s area in the spine. He is here for the bone scan results. Patient is schedule d to go to the operating room for cystoscopy with random bladder biopsies after completion of 6-week course of Gemzar and docetaxel mixture. PMH: Past Medical History: Diagnosis Date Arthritis Atrial fibrillation Bladder cancer CAD (coronary artery disease) Cataracts, bilateral Diverticulitis Heart attack Heart disease High cholesterol Hypertension Irregular heartbeat Ischemic cardiomyopathy Lung nodule 06/2016 Nocturia PSH: Past Surgical History: Procedure Laterality Date CATARACT EXTRACTION Bilateral CORONARY ANGIOPLASTY WITH STENT PLACEMENT INGUINAL HERNIA REPAIR Bilateral LUNG BIOPSY 07/2016 PACEMAKER INSERTION 10/2018 PORTACATH PLACEMENT Right 06/2016 [facility] CYSTOURETHROSCOPY,BIOPSY N/A 12/20/2018 Procedure: Cystoscopy, bladder biopsy, fulguration; Surgeon: Grayson Macedo MD; Location: OR [facility]; Service: Urology; Laterality: N/A; VA CYSTOURETHROSCOPY,BIOPSY N/A 04/05/2019 Procedure: Cystoscopy, random bladder biopsies, Fulguration per Dr. Macedo; Carlo urgeon: Grayson Macedo MD; Location: OR [facility]; Service: Urology; Laterality: N /A; VA CYSTOURETHROSCOPY,FULGUR 0.5-2 CM LESN N/A 12/16/2016 Procedure: Re-Transurethral resection of bladder tumor medium; Surgeon: Grayson epstein MD; Location: OR [facility]; Service: Urology; Laterality: N/A; TONSILLECTOMY TRANSURETHRAL RESECTION OF BLADDER TUMOR 2016 Allergies: Allergies Allergen Reactions Bee Venom Hives Sulfa Antibiotics Hives Social: 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 Socioeconomic History Marital status: Spouse name: Not on file Number of children: Not on file Years of education: Not on file Highest education level: Not on file 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 History Occupation: [employer] Social Needs Financial resource strain: Not on file Food insecurity Worry: Not on file Inability: Not on file Transportation needs Medical: Not on file Non-medical: Not on file Tobacco Use Smoking status: Former Smoker Packs/day: 0.00 Types: Cigarettes Quit date: 07/08/1989 Years since quittin.6 Smokeless tobacco: Never Used Substance and Sexual Activity Alcohol use: No Drug use: No Sexual activity: Not Currently Lifestyle Physical activity Days per week: Not on file Minutes per session: Not on file Stress: Not on file Relationships Social connections Talks on phone: Not on file Gets together: Not on file Attends zoroastrianism service: Not on file Active member of club or organization: Not on file Attends meetings of clubs or organizations: Not on file Relationship status: Not on file Intimate partner violence Fear of current or ex partner: Not on file Emotionally abused: Not on file Physically abused: Not on file Forced sexual activity: Not on file Other Topics Concern Not on file 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 Narrative 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 Family: Family History Problem Relation Age of Onset Heart attack Father Other Mother 40 house fire Hypertension Daughter Obesity Daughter Obesity Daughter Medications: Current Outpatient Medications on File Prior to Visit Medication Sig Dispense Refill acetaminophen (TYLENOL) 500 MG tablet Take 1,000 mg by mouth every 6 (six ) hours as needed for Pain aspirin 81 MG tablet Take 81 mg by mouth every morning atorvastatin (LIPITOR) 20 MG tablet Take 20 mg by mouth every morning Calcium 500 + D 500-125 MG-UNIT Oral Tablet (Calcium Carbonate-Vitamin D) Take by mouth captopril (CAPOTEN) 25 MG tablet Take 25 mg by mouth Two Times Daily docusate sodium (COLACE) 100 MG capsule Take 100 mg by mouth Two times da lenard as needed dorzolamide-timolol (COSOPT) 22.3-6.8 MG/ML ophthalmic solution Place 1 d rop into both eyes Two Times Daily ELIQUIS 5 MG tablet 5 mg Two Times Daily Ferrous Gluconate 324 (38 Fe) MG Oral Tablet (FERGON) Two Times Daily Folic Acid 1 MG Oral Tablet (FOLVITE) Take by mouth METOPROLOL TARTRATE PO Take 12.5 mg by mouth Two Times Daily Multiple Vitamin (MULTIVITAMIN) capsule Take 1 capsule by mouth every mor pedro sildenafil (VIAGRA) 100 MG tablet Take 100 mg by mouth as needed for Ere ctile Dysfunction tamsulosin HCl (FLOMAX) 0.4 MG CAPS Take 1 capsule by mouth daily 30 caps ule 3 Tamsulosin HCl 0.4 MG Oral Capsule (FLOMAX) Take 1 capsule by mouth Two T imes Daily 60 capsule 5 amlodipine (NORVASC) 10 MG tablet Take 10 mg by mouth every morning fluticasone (FLONASE) 50 MCG/ACT nasal spray 1 spray by Nasal route Two T imes Daily nitroGLYCERIN (NITROSTAT) 0.[address] 0.4 mg under the tongue every 5 (five) minutes as needed for Chest pain Oxybutynin Chloride 5 MG Oral Tablet (DITROPAN) Take one by mouth the tre pedro before treatment and one by mouth the morning of treatment (Patient not tanisha ing: Reported on 03/04/2020) 30 tablet 0 Phenazopyridine HCl 100 MG Oral Tablet (PYRIDIUM) Take 1 tablet by mouth Three times daily as needed for Pain (Patient not taking: Reported on 03/04/2020) 9 tablet 0 TRIAMCINOLONE ACET & LIDOCAINE IJ Inject as directed Current Facility-Administered Medications on File Prior to Visit Medication Dose Route Frequency Provider Last Rate Last Admin DOCEtaxel (TAXOTERE) 37.5 mg in sodium chloride 0.9 % 50 mL intravesical solution 37.5 mg Intravesical Once Jimena Plunkett RN gemcitabine (GEMZAR) 1,000 mg in sodium chloride 0.9 % 50 mL (20 mg/mL) i ntravesical solution 1,000 mg Intravesical Once Grayson Macedo MD gemcitabine (GEMZAR) intravesical solution syringe 1,000 mg 1,000 mg Int ravesical Once Grayson Macedo MD ROS: General: No fevers, chills, weight loss Eyes: No blurry vision, no double vision Ears: No hearing loss Throat: No hoarseness, no difficulty swallowing Heart: No chest pain, palpitations Lung: No shortness of breath Abdomen: No abdominal pain, nausea, vomiting Urinary: As per HPI Extremities: No swelling, no ecchymosis Psychiatric: No feelings of depression or anxiety Neurologic: No extremity weakness, no tingling or numbness Skin: No rashes Physical Exam Vitals: 03/04/20 1052 BP: 139/71 Pulse: 67 Resp: 16 Temp: 36.8 C SpO2: 98% General: Awake, Alert Neurologic: Oriented to person, place, time Eyes: No icterus Lung: Breathing comfortable without distress Abdomen: Non-distended, soft Musculoskeletal : moving all extremities Skin : Visible skin did not show evidence of rash Psychiatric: Normal mood, affect Labs: No visits with results within 1 Month(s) from this visit. Latest known visit with results is: Admission on 01/16/2020, Discharged on 01/16/2020 Component Date Value Ref Range Status SURGICAL 01/16/2020 Final Value:Surgical Pathology Report Name: JEAN JONES Collection Date: 01/16/2020 00:00 Received Date: 01/16/2020 11:56 Physician(s): GRAYSON MACEDO MD SHAPIRO, OLEG, MD Specimen(s) Received A: Right lateral wall B: Posterior bladder wall C: Left lateral wall D: Left lateral wall lesion E: Posterior wall lesion F: Trigone G: Bladder dome H: Prosthetic urethra Clinical History Bladder cancer. Diagnosis A) BLADDER, RIGHT LATERAL WALL, BIOPSY: MODERATE TO FOCALLY SEVERE UROTHELIAL DYSPLASIA SUSPICIOUS FOR UROTHELIAL CARCINOMA IN SITU. B) BLADDER, POSTERIOR WALL, BIOPSY: BLADDER WALL WITH REACTIVE CHANGES. UNREMARKABLE MUSCULARIS PROPRIA PRESENT. C) BLADDER, LEFT LATERAL WALL, BIOPSY: DENUDED REACTIVE UROTHELIAL MUCOSA AND MILD CHRONIC INFLAMMATION. D) BLADDER, LEFT LATERAL WALL LESION, BIOPSY: HEMANGIOMA. REACTIVE UROTHELIAL MUCOSA. UNREMARKABLE MUSCULARIS PROPRIA PRESENT. E) BLADDER, POSTERIOR WALL LESION, BIOPSY: FOCAL UROTHELIAL CARCINOMA IN SITU. UNREMARKABLE MUSCULARIS PROPRIA PRESENT. F) BLADDER, TRIGONE, BIOPSY: REACTIVE UROTHELIAL MUCOSA AND MILD CHRONIC INFLAMMATION. G) BLADDER, DOME, BIOPSY: REACTIVE UROTHELIAL MUCOSA. H) BLADDER, PROSTATIC URETHRA, BIOPSY: REACTIVE UROTHELIAL MUCOSA AND SUBMUCOSAL CHRONIC INFLAMMATION. Annika Gallo MD;Resident Pathologist Electronically Signed By Sean Brewer M.D., Attending Pathologist 01/18/2020 07:28:21 The attending pathologist named above attests that he/she has personally reviewed the relevant preparation(s) for the specimen, performed microscopic examination when indicated, and rendered the final diagnosis. Unless 'gross-only' is specified, the final diagnosis is based on a microscopic examination of metals sales representative sections of tissue. Gross Description The specimen is received in eight parts. Part A is received in formalin labeled with the patient's name "Jean Rhyner" and "right lateral w all". It consists of a single soft lopez tissue fragment measuring 0.2 cm in greatest dimension. Totally submitted in one cassette. Part B is received in formalin labeled with the patient's name "Jean Rhyner" and "posterior bladder wall". It consists of a single soft lopez tissue fragment measuring 0.2 cm in greatest dimension. Totally submitted in one cassette. Part C is received in formalin labeled with the patient's name "Jean Rhyner" and "left lateral wall". It consists of a single soft lopez tissue fragment measuring 0.1 cm in greatest dimension. Totally submitted in one cassette. Part D is received in formalin labeled with the patient's name "Jean Rhyner" and "left lateral wall". It consists of a single soft lopez tissue fragment measuring 0.3 cm in greatest dimension. Totally submitted in one cassette. Part E is received in formalin labeled with the patient's name "Jean Rhyner" and "posterior wall". It consists of a single sof t lopez tissue fragment measuring 0.2 cm in greatest dimension. Totally submitted in one cassette. Part F is received in formalin labeled with the patient's name "Jean Rhyner" and "trigone". It consists of a single soft lopez tissue fragment measuring 0.3 cm in greatest dimension. Totally submitted in one cassette. Part G is received in formalin labeled with the patient's name "Jean Rhyner" and "bladder dome". It consists of a single soft lopez tissue fragment measuring 0.1 cm in greatest dimension. Totally submitted in one cassette. Part H is received in formalin labeled with the patient's name "Jean Rhyner" and "prosthetic urethra". It consists of a single soft lopez tissue fragment measuring 0.2 cm in greatest dimension. Totally submitted in one cassette. ND/hjg This report may include one or more immunohistochemical stain results that use analyte specific reagents. All positive and negative controls have been reviewed by the [facility] pathologist and are satisfactory. The tests were developed and their performance characteristics determined by [facility] Pathology department. They have not been cleared or approved by the [place] Food and Drug Administration. The FDA has determined that such clearance or approval is not necessary. Radiology: Patient's bone scan did not reveal any evidence of metastatic disease . Assessment/Plan: Patient's radiologic work-up is completely negative. He is her e for the Gemzar/docetaxel instillation. He will be taken to the operating room 4 weeks after the completion of 6-week course. At that time, we will proceed w ith cystoscopy and random bladder biopsies. I appreciate the opportunity to see this patient and I will keep you posted on h is progress. Grayson Macedo MD FACS Preparation Supervisor Freezing Departments of Urology and Radiation Oncology [place], [place] documented in this encounter Plan of Treatment Care Team Description Date Type Specialty 03/11/2020 Clinical Urology Support 03/18/2020 Clinical Urology Support Teetee Gómez MD [address] [place] [id number] [phone] 05/16/2020 Telemedicine Hematology and Onco logy Health Maintenance Due Date Last Done Comments MMR Vaccines (1 of 1 - 1938 Standard series) Pneumococcal Vaccine: 10/07/1941 Pediatrics (0 to 5 Years) and At-Risk Patients (6 to 64 Years) (1 of 3 - PCV13) DTaP,Tdap,and Td Vaccines 1942 (1 - Tdap) Pneumococcal Vaccine: 65+ 2002 Years (1 of 1 - PPSV23) Varicella Vaccines (1 of 03/02/2018 01/05/2018, 2 - 2-dose childhood 11/04/2017 series) Influenza Vaccine 11/29/2019 11/04/2019, 10/31/2018, 10/19/2017, Additional history exists Zoster Vaccines Completed 01/05/2018, 11/04/2017 HIB Vaccines Aged Out No longer eligible based on patient's age to complete this topic Hepatitis A Vaccines Aged Out No longer eligibl e based on patient's age to complete this topic Hepatitis B Vaccines Aged Out No longer eligibl e based on patient's age to complete this topic IPV Vaccines Aged Out No longer eligible based on patient's age to complete this topic documented as of this encounter Implants Device Identifier Shelf Expiration Date Model / Serial / L ot Implanted Type Area Manufactur er 02/27/2019 [id number] / / [facility] [employer] Lung Sealnt Dev5/Bx Right: Lung AN GIOTECH - [id number] Implanted: Qty: 1 on 07/30/2016 by Keon Nuñez MD at [facility] INPATIENT documented as of this encounter Results Not on filedocumented in this encounter Visit Diagnoses Diagnosis Malignant neoplasm of urinary bladder, unspecified site - Primary documented in this encounter
--- OUTSIDE RECORDS SUMMARY | 2020-04-26 00:48 | CCD | Summary of Care ---
Author Author [facility] Organization [facility] Address Unknown Phone Unavailable Care Team Providers Care Malter Operator Name Role Phone Harjinder Carvajal MD PCP Reason for Visit * Reason Comments Follow-up Encounter Details Care Team Description Date Type Department Grayson Macedo MD [facility] [place] [address] Malignant neoplasm of urinary bladder, u nspecified site (Primary Dx) 02/19/2020 Office Visit [facility] Urology [address] [place] [address], [place] [id number] Allergies Comments Active Allergy Reactions Severity Noted Date Bee Venom Hives High 07/08/2016 Sulfa Antibiotics Hives High 07/08/2016 documented as of this encounter (statuses as of 02/19/2020) Medications End Date Status Medication Sig Dispensed [...] Additional Information Patient not taking. Reported on 02/19/2020 10:45 AM Active Oxybutynin Chloride 5 MG Take one by 30 tablet 0 0 Oral Tablet (DITROPAN) mouth the 0 evening before treatment and one by mouth the morning of treatment Additional Information Patient not taking. Reported on 02/19/2020 10:45 AM Active Tamsulosin HCl 0.4 MG Take [...] 1 % 50 mL intravesical solution Active DOCEtaxel (TAXOTERE) 37.5 37.5 mg IS Weekly 02/19/20 mg in sodium chloride 0.9 20 0 % 50 mL intravesical solution Active DOCEtaxel (TAXOTERE) 37.5 37.5 mg IS Once 02/26/20 mg in sodium chloride 0.9 20 1 % 50 mL intravesical solution Active gemcitabine (GEMZAR) 1000 mg IS Once 02/12/20 1,000 mg in sodium 20 1 chloride 0.9 % 50 mL (20 mg/mL) intravesical solution documented as of this encounter (statuses as of 02/19/2020) Active Problems Problem Noted Date Beta thalassemia [...] as of this encounter (statuses as of 02/19/2020) 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 Date Tobacco Use Types Packs/Day Years Used Quit: 07/08/1989 Former Smoker Cigarettes 0 Smokeless Tobacco: Never Used Drinks/Week oz/Week Comments Alcohol Use No Sex Assigned at Date Recorded Not on file Date Recorded COVID-19 Exposure Response 02/19/2020 10:21 AM EST In the last month, have you been in contact with No / Unsure someone who was confirmed or suspected to have Coronavirus / COVID-19? documented as of this encounter Last Filed Vital Signs Reading Time Taken Comments Vital Sign 157/81 02/19/2020 10:42 AM EST Blood Pressure 62 02/19/2020 10:42 AM EST Pulse 36.9 C (98.5 F) 02/19/2020 10:42 AM EST Temperature 18 02/19/2020 10:42 AM EST Respiratory Rate 97% 02/19/2020 10:42 AM EST Oxygen Saturation - - Inhaled Oxygen Concentration 99.7 kg (219 lb 12.8 oz) 02/19/2020 10:42 AM EST Weight 185.4 cm (6' 0.99") 02/19/2020 10:42 AM EST Height 29.01 02/19/2020 10:42 AM EST Body Mass Index documented in this encounter Progress Notes * Grayson Macedo MD - 02/19/2020 11:30 AM EST CC: Bladder cancer Chief Complaint Patient presents with Follow-up Referring Physician: Harjinder Carvajal MD HPI: [id number] [...] random bladder biopsies after the BCG tr eatment. 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 He did undergo 6-week c ourse of Gemzar therapy intravesically. Patient also had a CT IVP done in April of this year which was negative. He also had a PET scan done a month later whi ch was negative as well. He is status post cystoscopy with random bladder biops ies. 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 We decided t o proceed with gemcitabine and docetaxel mixture installations. Patient had a C T IVP as well as CT of the chest. And he is here to discuss the results as well is to get his second installation. And plan to take the patient to the operati ng room 4 weeks after 6-week course completion for cystoscopy with random bladde r biopsies. PMH: Past Medical History: Diagnosis Date Arthritis Atrial fibrillation Bladder cancer CAD (coronary artery disease) Cataracts, bilateral Diverticulitis Heart attack Heart disease High cholesterol Hypertension Irregular heartbeat Ischemic cardiomyopathy Lung nodule 06/2016 Nocturia PSH: Past Surgical History: Procedure Laterality Date CATARACT EXTRACTION Bilateral CORONARY ANGIOPLASTY WITH STENT PLACEMENT INGUINAL HERNIA REPAIR Bilateral LUNG BIOPSY 07/2016 PACEMAKER INSERTION 10/2018 PORTACATH PLACEMENT Right 06/2016 CO CYSTOURETHROSCOPY,BIOPSY N/A 12/20/2018 Procedure: Cystoscopy, bladder biopsy, fulguration; Surgeon: Grayson Macedo MD; Location: OR [facility]; Service: Urology; Laterality: N/A; CO CYSTOURETHROSCOPY,BIOPSY N/A 04/05/2019 Procedure: Cystoscopy, random bladder biopsies, Fulguration per Dr. Macedo; Carlo urgeon: Grayson Macedo MD; Location: OR [facility]; Service: Urology; Laterality: N /A; CO CYSTOURETHROSCOPY,FULGUR 0.5-2 CM LESN N/A 12/16/2016 Procedure: Re-Transurethral resection of bladder tumor medium; Surgeon: Grayson epstein MD; Location: OR [facility]; Service: Urology; Laterality: N/A; TONSILLECTOMY TRANSURETHRAL RESECTION OF BLADDER TUMOR 2016 Allergies: Allergies Allergen Reactions Bee Venom Hives Sulfa Antibiotics Hives Social: 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 Socioeconomic History Marital status: Spouse name: Not on file Number of children: Not on file Years of education: Not on file Highest education level: Not on file 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 History Occupation: [employer] Social Needs Financial resource strain: Not on [...] file Gets together: Not on file Attends mosque service: Not on file Active member of [...] Not on file 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 Family: Family History Problem Relation Age [...] treatment (Patient not tanisha ing: Reported on 02/19/2020) 30 tablet 0 Phenazopyridine HCl 100 MG Oral Tablet (PYRIDIUM) Take 1 tablet by mouth Three times daily as needed for Pain (Patient not taking: Reported on 0) 9 tablet 0 TRIAMCINOLONE ACET & LIDOCAINE IJ Inject as directed Current Facility-Administered Medications on File Prior to Visit Medication Dose Route Frequency Provider Last Rate Last Admin DOCEtaxel (TAXOTERE) 37.5 mg in sodium chloride 0.9 % 50 mL intravesical solution 37.5 mg Intravesical Once Jimena Plunkett RN DOCEtaxel (TAXOTERE) 37.5 mg in sodium chloride 0.9 % 50 mL intravesical solution 37.5 mg Intravesical Weekly Jimena Plunkett RN [START ON 02/26/2020] DOCEtaxel (TAXOTERE) 37.5 mg in sodium chloride 0.9 % 50 mL intravesical solution 37.5 mg Intravesical Once Jimena Plunkett RN gemcitabine (GEMZAR) 1,000 mg in sodium chloride 0.9 % 50 mL (20 mg/mL) i ntravesical solution 1,000 mg Intravesical Once Grayson Macedo MD ROS: General: No [...] numbness Skin: No rashes Physical Exam Vitals: 02/19/20 1042 BP: 157/81 Pulse: 62 Resp: 18 Temp: 36.9 C SpO2: 97% General: Awake, Alert Neurologic: Oriented to person, [...] SURGICAL 01/16/2020 Final Value:Surgical Pathology Report Name: JENA JONES Collection Date: 01/16/2020 00:00 Received Date: [...] is based on a microscopic examination of charter representative sections of tissue. Gross Description The [...] negative controls have been reviewed by the [facility] pathologist and are satisfactory. The tests were developed and their performance characteristics determined by [facility] Pathology department. They have not been cleared or approved by the US Food and Drug Administration. The FDA has determined that such clearance or approval is not necessary. Radiology: Patient CT IVP reveals no evidence of cancer recurrence. He CT of th e chest also reveals no obvious evidence of cancer recurrence. There are multip le stable findings. Patient does have a new sclerotic lesion in the T8 vertebra . Assessment/Plan: Patient has no obvious metastatic disease in his radiologic wor k-up. He will continue with Gemzar and docetaxel mixture installations. I woul d like to obtain the bone scan to take a better look at the T8 vertebra and othe r bony structures. If everything is okay, I would like to take the patient to [facility] operating room 4 weeks after 6-week course completion for cystoscopy with ran dom bladder biopsies. I appreciate the opportunity to see this patient and I will keep you posted on h is progress. Grayson Macedo MD FACS [facility] Departments of Urology and Radiation Oncology [place], [place] documented in this encounter Plan of Treatment Care Team Description Date Type Specialty 02/26/2020 Clinical Urology Support 03/04/2020 Clinical Urology Support 03/11/2020 Clinical Urology Support 03/18/2020 Clinical Urology Support Teetee Gómez MD [address] [place] [address] [phone] 04/11/2020 Telemedicine Hematology and Onco logy Health Maintenance [...] ot Implanted Type Area Manufactur er 02/27/2019 [id number] / / [facility]- [employer] Lung Sealnt Dev5/Bx Right: Lung AN GIOTECH - [id number] Implanted: Qty: 1 on 07/30/2016 by Keon Nuñez MD at [facility] IN[facility]IENT documented as of this encounter Results Not on filedocumented in this encounter Visit Diagnoses Diagnosis Malignant neoplasm of urinary bladder, unspecified site - Primary documented in this encounter
--- OUTSIDE RECORDS SUMMARY | 2020-04-26 00:48 | CCD | Continuity of Care Document ---
Author Author Jean FARFAN M.D. Organization Unknown Address [address] [address] Phone [phone] Care Team Providers Care Certified Nursing Attendant Name Role Phone Cornelius Dean M.D. [facility] [phone] Problems Active Problems Provider Date Coronary atherosclerosis Harjinder aFrfan M.D. Onset: 11/29 Hyperlipidemia Harjinder Farfan M.D. [...] Height 72 inches 6'0" Weight 221.00 lb [place] Body Weight 178 lb BMI (Body Mass Index) 30.0 kg/m2 O2 % BldC Oximetry 93 % 12/24/2019 1:18pm BP Systolic 124 mmHg BP Diastolic 68 mmHg Body Temperature 98.4 F Heart Rate 66 /min Respiratory Rate 16 /min Height 72 inches 6'0" Weight 219.00 lb [place] Body Weight 160 lb BMI (Body Mass Index) 29.7 kg/m2 O2 % BldC Oximetry 92 % Results Test Acquired Date Facility Test Result H/L Range Note Basic Metabolic Profile 02/06/2020 [facility] (Interface) [phone] Glucose, Fasting 95 mg/dL Normal 70-100 Blood [...] 9.5 mg/dL Normal 8.8-10.2 Ua Routine 01/07/2020 [facility] ([facility]) [phone] Appearance, Urine HAZY Normal Clear Color, Urine YELLOW Normal Yellow PH,Urine 7.0 units Normal 5.0-9.0 Specific [place] Urine Auto 1.017 Normal 1.002-1.035 Protein, Urine [...] 1 /LPF Normal 0-1 Urine Culture 01/07/2020 [facility] ([facility]) [phone] Urine Culture FULL REPORT IN L <SEE [...] eGFR 44 # Calc 5 eGFR Non-Afr. [place] 38 # Calc 6 CBC 12/24/2019 [facility]/Inhouse [...] ulU/mL 0.60 - 4.8 Ua Routine 12/10/2019 [facility] ([facility]) [phone] Appearance, Urine CLEAR Normal Clear Color, Urine YELLOW Normal Yellow PH,Urine 6.0 units Normal 5.0-9.0 Specific [place] Urine Auto 1.017 Normal 1.002-1.035 Protein, Urine [...] 0 /LPF Normal 0-1 Urine Culture 12/10/2019 [facility] [phone] Urine Culture FULL REPORT IN L <SEE NOTE> Normal 7 CBC With Differential 12/10/2019 [facility] (Interface) [phone] White Blood Count 4.8 10 Normal 4.0-10.0 [...] 36.0-66.0 Lymph % 13.4 % Low 24.0-44.0 [place] % 9.3 % High 0.0-5.0 Eos % 4.3 % High 0.0-3.0 Baso % 0.4 % Normal 0.0-1.0 Immature Granulocyte % 0.4 % Normal 0-3.0 Nucleated Red Blood Cell % 0.0 % Normal 0-0 Neutrophils # 3.5 10 Normal 1.5-8.5 Lymph # 0.7 10 Low 1.5-5.0 [place] # 0.5 10 Normal 0.0-0.8 Eos # 0.2 10 Normal 0.0-0.5 Baso # 0.0 10 Normal 0.0-0.2 Prothrombin Time/Inr 12/10/2019 [facility] ( Interface) [phone] Prothrombin Time 18.7 seconds High 12.5-14.3 Inr 1.53 Normal 8 Basic Metabolic Profile 12/10/2019 [facility] (Interface) [phone] Glucose, Fasting 98 mg/dL Normal 70-100 Blood [...] mg/dL Low 8.8-10.2 Complete Blood Count 12/10/2019 [facility] ( Interface) [phone] White Blood Count 4.8 10 Normal 4.0-10.0 [...] Little GFR Left ESRD GFR <15 on UPPER INSPECTOR 2 FULL REPORT IN LAB NOTES (eC [...] HCT IS 5% LESS SOURCE FOR DATA: Akella 1800 OPERATION MANUAL( AUTOMATED BLOOD COUNTS AND [...] Little GFR Left ESRD GFR <15 on UPPER INSPECTOR Procedures Description No Information Available Medical Devices Description No Information Available Encounters Type Date Location Provider Dx Diagnosis Office Visit 01/23/2020 9:00a [place] [facility] Harjinder Farfan M. D. 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 D. 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 01/23/2020 I25.10 Atherosclerotic hear t disease of [place] coronary artery without angina pectoris Harjinder Farfan M.D. 12/24/2019 M54.9 Dorsalgia, unspecified Harjinder Farfan M.D. 12/24/2019 Z00.00 Encounter for genera l adult medical examination without abnormal findings Harjinder Farfan M.D. 12/24/2019 I25.10 Atherosclerotic hear t disease of [place] coronary artery without angina pectoris Harjinder Farfan M.D. 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 Plan of Treatment Future Appointment(s):* 07/23/2020 9:00 am - Harjinder Farfan M.D. at [facility] Functional Status Description No Information Available Mental Status Description No Information Available Referrals Description No Information Available
--- OUTSIDE RECORDS SUMMARY | 2020-04-26 00:48 | CCD | Continuity of Care Document ---
Author Author Jean BLAIR MD Organization Unknown Address [facility] [address] Phone [phone] Care Team Providers Care Hvac Specialist Name Role Phone Mckayla Ogden PA-C AUTM [phone] Maria Teresa Estrada MD AUTM [phone] Tyrel Jorge MD AUTM [phone] Momo Macedo MD AUTM [phone] Sheldon Bianchi MD AUTM [phone] Amy Cruz AUTM [phone] Harjinder Carvajal MD AUTM [phone] Problems Active Problems Provider Date Coronary arteriosclerosis [...] Ogden, PA-C Onset: 09/16/2016 Mitral valve disorder Mckayal Ogden, PA-C Onset: 09/16/2016 Electrocardiogram abnormal Mckayla [...] Exercise Type/Frequency Does housework twice a w [place] Exercise Limitations Back Pain lower Exercise Limitations [...] by mouth twice a day 180tabs Phani Blair MD 12/13/2019 Calcium 500 + D [id number] Tab lets 1 by mouth once daily [...] a day for edema Unknown 10/12/2019 Ipratropium [place] 0.02% Solution 2 sprays into each nostril [...] by mouth every day 90tabs I25.10 Phani Blair MD 01/10/2019 Nitrostat 0.4mg Tablets Sub 1 sl every 5min x3 as needed for chest pain 25tabs I25.10 Phani Blair MD 07/04/2013 Flonase 50mcg/Act Suspension 1 spray each nostril as needed Unknown 05/29/2013 Multivitamins Tablets 1 PO d Lisa Roberts MD History Medications Captopril 12.5mg Tablets 1/2 by mouth twice a day 90tabs Z95.1 Phani Blair MD 11/12/2019 - 11/20/2019 I25.10 Coumadin 3mg [...] mouth twice a day Unknown 10/10/2019 - Immunizations Description No Information Available Vital Signs [...] H/L Range Note Basic Metabolic Profile 01/31/2020 [facility] [phone] Glucose, Fasting 101 mg/dL High 70-100 Blood [...] mg/dL Normal 8.8-10.2 Complete Blood Count 01/31/2020 [facility] enter [phone] White Blood Count 4.8 10 Normal 4.0-10.0 [...] % Saturation 17 Complete Blood Count 12/10/2019 [facility] - add-on lab [address] [place] [address] [phone] White Blood Count 4.8 10 [...] 0.0 % Normal 0-0 Prothrombin Time/Inr 12/03/2019 [facility] C enter [phone] Prothrombin Time 20.4 seconds High 12.5-14.3 Inr 1.70 Normal 2 PT/Inr 11/21/2019 [facility] Ce nter [phone] Prothrombin Time 34.2 seconds High 12.5-14.3 Inr 3.28 Normal 3 Basic Metabolic Profile 11/21/2019 [facility] [phone] Glucose, Fasting 98 mg/dL Normal 70-100 Blood [...] mg/dL Normal 8.8-10.2 Complete Blood Count 11/21/2019 [facility] enter [phone] White Blood Count 5.0 10 Normal 4.0-10.0 [...] % Normal 0-0 Complete Blood Count 11/14/2019 [facility] enter [phone] White Blood Count 4.9 10 Normal 4.0-10.0 [...] % Normal 0-0 Basic Metabolic Profile 11/14/2019 [facility] [phone] Glucose, Fasting 95 mg/dL Normal 70-100 Blood [...] Level 9.0 mg/dL Normal 8.8-10.2 PT/Inr 10/29/2019 [facility] nter [phone] Prothrombin Time 19.8 seconds High 11.8-14.0 Inr 1.64 Normal 6 CBC without Differential 10/18/2019 [facility] (315)- - White Blood Count 4.4 [...] [facility] (315)- - Hemoglobin A1c 5.7 1 Units are mL/min/1.73 m2 Chronic Kidney Disease Staging per NKF: Stage I & II GFR >=60 Normal to Mildly Decreased Stage III GFR 30-59 Moderately Decreased Stage IV GFR 15-29 Severely Decreased Stage V GFR <15 Very Little GFR Left ESRD GFR <15 on PRODUCT DEVELOPMENT COORDINATOR 2 THERAPUTIC HUMAN INR VALUES INDICATIONS NORMAL [...] Little GFR Left ESRD GFR <15 on PRODUCT DEVELOPMENT COORDINATOR 5 Units are mL/min/1.73 m2 Chronic Kidney Disease Staging per NKF: Stage I & II GFR >=60 Normal to Mildly Decreased Stage III GFR 30-59 Moderately Decreased Stage IV GFR 15-29 Severely Decreased Stage V GFR <15 Very [place] GFR Left ESRD GFR <15 on PRODUCT DEVELOPMENT COORDINATOR 6 THERAPUTIC HUMAN INR VALUES INDICATIONS NORMAL RANGES PROPHYLAXIS/TREATMENT OF: VENOUS THROMBOSIS 2.0-3.0 PULMONARY EMBOLISM 2.0-3.0 PREVENTION OF SYSTEMIC EMBOLISM FROM: TISSUE HEART VALVES 2.0-3.0 ACUTE MYOCARDIAL INFARCTION 2.0-3.0 VALVULAR HEART DISEASE 2.0-3.0 ATRIAL FIBRILLATION 2.0-3.0 MECHANICAL VALVES(HIGH RISK) 2.5-3.5 RECURRENT MYOCARDIAL INFARCTION 2.5-3.5 Procedures Date Code Description Status 02/11/2020 64749 Remote Pacemaker/Cardio-Defibril lator Data Acquistion Completed 02/11/2020 27013 Remote Interrogation Device Eval Pacemaker System Up To 90 Days Completed 01/14/2020 32999 ECG 12-Lead Completed 12/14/2019 37873 Anticoagulant MGMT F or Patient Taking Warfarin, Inc Review & Intr Completed 12/03/2019 65075 Anticoagulant MGMT F or Patient Taking Warfarin, Inc Review & Intr Completed 11/21/2019 56957 Anticoagulant MGMT F or Patient Taking Warfarin, Inc Review & Intr Completed 11/12/2019 13466 Pacer Programming Single Lead Co mpleted 11/12/2019 34705 ECG 12-Lead Completed 10/30/2019 76645 Anticoagulant MGMT F or Patient Taking Warfarin, Inc Review & Intr Completed 10/26/2019 94707 Anticoagulant MGMT F or Patient Taking Warfarin, Inc Review & Intr Completed Medical Devices Description No Information Available Encounters Type Date Location Provider Dx Diagnosis Office Visit 01/17/2020 4:07p Main Office Phani Blair MD I10 Essential (primary) hypertension I35.1 Nonrheumatic aortic (valve) insufficiency I34.0 Nonrheumatic mitral (valve) insufficiency Office Visit 01/14/2020 9:45a Main Office Mckayla Ogden PA-C I25.1 0 Athscl heart disease of [place] coronary artery w/o ang pctrs Z95.5 Presence [...] Office Visit 11/29/2019 12:34p Main Office Phani Blair MD I10 Essential (primary) hypertension I48.21 Permanent atrial fibrillatio n I35.1 Nonrheumatic aortic (valve) insufficiency I34.0 Nonrheumatic mitral (valve) insufficiency Office Visit 11/12/2019 3:00p Main Office Mckayla Ogden PA-C Z95.1 Presence of aortocoronary bypass graft I49.5 Sick sinus syndrome Z01.810 Encounter for preprocedural cardiovascular examination Office Visit 10/30/2019 12:34p Main Office Phani Blair MD I10 Essential (primary) hypertension I48.21 Permanent atrial fibrillatio n I35.1 Nonrheumatic aortic (valve) insufficiency I34.0 Nonrheumatic mitral (valve) insufficiency Assessments Date Code Description Provider 02/12/2020 I10 Essential (primary) hypertension Phani Blair MD 02/12/2020 I35.1 Nonrheumatic aortic (valve) insu fficiency Phani Blair MD 02/12/2020 I34.0 Nonrheumatic mitral (valve) insu fficiency Phani Blair MD 02/11/2020 Z95.0 Presence of cardiac pacemaker Pa [facility] 01/17/2020 I10 Essential (primary) hypertension Phani Blair MD 01/17/2020 I35.1 Nonrheumatic aortic (valve) insu fficiency Phani Blair MD 01/17/2020 I34.0 Nonrheumatic mitral (valve) insu fficiency Phani Blair MD 01/14/2020 I25.10 Atherosclerotic heart disease of [place] coronary artery with Mckayla Ronni Kaciechrissyw, PA-C 01/14/2020 Z95.5 Presence of coronary angioplasty implant and graft Mckayla Ronni Levinw, PA-C 01/14/2020 I49.01 Ventricular fibrillation Mckayla Hesterchrissyw, PA-C 01/14/2020 Z95.1 Presence of aortocoronary bypass graft Mckaylaronni Ogden, PA-C 01/14/2020 I25.5 Ischemic cardiomyopathy Mckaylaronni velazquezw, PA-C 01/14/2020 I10 Essential (primary) hypertension Mckayla Ronni Kaciechrissyw, PA-C 01/14/2020 I48.21 Permanent atrial fibrillation Deepa page Ronni Levinw, PA-C 01/14/2020 I48.3 Typical atrial flutter Mckayla Ronni ruano, PA-C 01/14/2020 I35.1 Nonrheumatic aortic (valve) insu fficiency Mckayla Ronni Kaciechrissyw, PA-C 01/14/2020 I34.0 Nonrheumatic mitral (valve) insu fficiency Mckayla Ronni Olliew, PA-C 01/14/2020 R94.31 Abnormal electrocardiogram [ECG] [EKG] Mckayla Hesterenow, PA-C 01/14/2020 I49.3 Ventricular premature depolariza tion Mckayla Ronni Kaciechrissyw, PA-C 01/14/2020 E78.00 Pure hypercholesterolemia, unspe cified Mckayla E Symenow, PA-C 01/14/2020 I49.5 Sick sinus syndrome Mckayla Ronni ferrara, PA-C 01/14/2020 Z95.0 Presence of cardiac pacemaker Deepa kaylee Henderson Kaciechrissyw, PA-C 01/14/2020 Z71.3 Dietary counseling and surveilla nce Mckayla Ogden PA-C 12/14/2019 I48.21 Permanent atrial fibrillation Jack Blair MD 12/14/2019 Z95.1 Presence of aortocoronary bypass graft Phani Blair MD 12/03/2019 I48.21 Permanent atrial fibrillation GARRET Altamirano-C 11/29/2019 I10 Essential (primary) hypertension Phani Blair MD 11/29/2019 I48.21 Permanent atrial fibrillation Jack Blair MD 11/29/2019 I35.1 Nonrheumatic aortic (valve) insu fficiency Phani Blair MD 11/29/2019 I34.0 Nonrheumatic mitral (valve) insu fficiency Phani Blair MD 11/21/2019 I48.21 Permanent atrial fibrillation GARRET Altamirano-C 11/21/2019 Z95.1 Presence of aortocoronary bypass graft TAWANNA OrozcoC 11/12/2019 Z95.1 Presence of aortocoronary bypass graft GARRET Orozco-C 11/12/2019 I49.5 Sick sinus syndrome GARRET Eid-C 11/12/2019 Z01.810 Encounter for preprocedural card iovascular examination TAWANNA OrozcoC 10/30/2019 I10 Essential (primary) hypertension Phani Blair MD 10/30/2019 I48.21 Permanent atrial fibrillation GARRET Salter 10/30/2019 I48.21 Permanent atrial fibrillation Jack Blair MD 10/30/2019 I35.1 Nonrheumatic aortic (valve) insu fficiency Phani Blair MD 10/30/2019 I34.0 Nonrheumatic mitral (valve) insu fficiency Phani Blair MD 10/26/2019 I48.21 Permanent atrial fibrillation Al GARRET Garcia Plan of Treatment Future Appointment(s):* 05/12/2020 7:00 am - [facility]er[facility] at Main Office * 07/14/2020 10:15 am - Mckayla Ogden PA-C at Main Office * 11/13/2020 8:00 am - Mckayla Ogden PA-C at Main Office 01/14/2020 - Mckayla Ogden PA-C* I25.10 Atherosclerotic heart disease of [place] coronary artery with * Z95.5 Presence of [...]
--- OUTSIDE RECORDS SUMMARY | 2020-04-26 00:49 | CCD | Summary of Care ---
Author Author [facility] Organization [facility] Address Unknown Phone Unavailable Care Team Providers Care Supervisor Properties Name Role Phone Harjinder Carvajal MD PCP Reason for Referral * Diagnostic Radiology (Routine) Referred By Contact Referred To Contact Status Reason Specialty Diagnoses / Procedures Momo Macedo MD [address] [place] [address] Email: [email or web address] Open Radiology Diagnoses Malignant neoplasm of urinary bladder, unspecified site P rocedures CT Thorax with Contrast * Diagnostic Radiology (Routine) Referred By Contact Referred To Contact Status Reason Specialty Diagnoses / Procedures Momo Macedo MD [address] [place] [address] Email: [email or web address] Open Radiology Diagnoses Malignant neoplasm of urinary bladder, unspecified site P rocedures CT Abdomen Pelvis with and without Contrast Reason for Visit * Reason Comments Results Path results from bladder b iopsy, in chart. Encounter Details Care Team Description Date Type Department Momo Macedo MD [address] [place] [address] [phone] Malignant neoplasm of urinary bladder, u nspecified site (Primary Dx) 01/29/2020 Telemedicine [facility] [[email or web address]] Urology [address] [place] [address], [place] [address] Allergies Comments Active Allergy Reactions Severity Noted Date Bee Venom Hives High 07/08/2016 Sulfa Antibiotics Hives High 07/08/2016 documented as of this encounter (statuses as of 01/29/2020) Medications End Date Status Medication Sig Dispensed [...] MG CAPS capsule by 8 mouth daily Additional Information Patient not taking. Reported on 01/29/2020 12:10 PM 04/04/2020 Active Phenazopyridine HCl 100 Take 1 tablet 9 tablet 0 MG Oral Tablet (PYRIDIUM) by mouth 0 Three times daily as needed for Pain Additional Information Patient not taking. Reported on 01/29/2020 12:10 PM Active Oxybutynin Chloride 5 MG Take one by 30 tablet 0 0 Oral Tablet (DITROPAN) mouth the 0 evening before treatment and one by mouth the morning of treatment Additional Information Patient not taking. Reported on 01/29/2020 12:10 PM Active Tamsulosin HCl 0.4 MG Take 1 60 capsule 5 10/29 Oral Capsule (FLOMAX) capsule by 0 mouth Two Times Daily Additional Information Patient taking differently: 0.4 mg Oral Every morning, Reported on 12/18/2019 8:48 AM Active METOPROLOL TARTRATE PO Take 12.5 mg 0 by mouth Two Times Daily Active Ferrous Gluconate 324 (38 Two Times 0 09/28 Fe) MG Oral Tablet Daily 0 (FERGON) Active Calcium 500 + D 500-125 Take by mouth 0 MG-UNIT Oral Tablet 0 (Calcium Carbonate-Vitamin D) Active Folic Acid 1 MG Oral Take by mouth 0 Tablet (FOLVITE) 0 documented as of this encounter (statuses as of 01/29/2020) Active Problems Problem Noted Date Beta thalassemia [...] as of this encounter (statuses as of 01/29/2020) 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 Date Tobacco Use Types Packs/Day Years Used Quit: 07/08/1989 Former Smoker Cigarettes 0 Smokeless Tobacco: Never Used Drinks/Week oz/Week Comments Alcohol Use No Sex Assigned at Date Recorded Not on file Date Recorded COVID-19 Exposure Response 01/28/2020 10:29 AM EST In the last month, have you been in contact with No / Unsure someone who was confirmed or suspected to have Coronavirus / COVID-19? documented as of this encounter Last Filed Vital Signs Not on filedocumented in this encounter Progress Notes * Momo Macedo MD - 01/29/2020 3:45 PM EST CC: Bladder cancer Chief Complaint Patient presents with Results Path results from bladder biopsy, in chart. Referring Physician: Harjinder Carvajal MD HPI: 84 y.o. gentleman who was diagnosed with bladder cancer after experiencing painless gross hematuria. A CT IVP was done which revealed a bladder mass in t he dome of the bladder. He underwent a TURBT in June of 2016 at an outside [facility]. 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 He agreed with the diagnosis. He is on Flomax for urina ry frequency, nocturia, and oxybutynin as well, and his symptoms are under decen t control. He underwent a gemcitabine and cisplatin neoadjuvant chemotherapy. He tolerated very well, and upon his return to the office to discuss the cystect angelo, the patient did not want to have a cystectomy done. He underwent chemoradi ation regimen and was doing fairly well until I scoped him recently, and noted nhan alarcon to have some areas of posterior bladder wall and the dome that were suspiciou s. We decided to take the patient for biopsy. 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 Patient underwent a 6-week course of BCG therapy. Patient underw ent random bladder biopsies after the BCG treatment. 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 He did undergo 6-week course of Gemzar therapy intravesical ly. Patient also had a CT IVP done in April of this year which was negative. Nhan rudolph also had a PET scan done a month later which was negative as well. He is stat us post cystoscopy with random bladder biopsies. He is here to discuss the resu lts. PMH: Past Medical History: Diagnosis Date Arthritis Atrial fibrillation Bladder cancer CAD (coronary artery disease) Cataracts, bilateral Diverticulitis Heart attack Heart disease High cholesterol Hypertension Irregular heartbeat Ischemic cardiomyopathy Lung nodule 06/2016 Nocturia PSH: Past Surgical History: Procedure Laterality Date CATARACT EXTRACTION Bilateral CORONARY ANGIOPLASTY WITH STENT PLACEMENT INGUINAL HERNIA REPAIR Bilateral LUNG BIOPSY 07/2016 PACEMAKER INSERTION 10/2018 PORTACATH PLACEMENT Right 06/2016 [place] CYSTOURETHROSCOPY,BIOPSY N/A 12/20/2018 Procedure: Cystoscopy, bladder biopsy, fulguration; Surgeon: Momo Macedo MD; Location: OR [facility]; Service: Urology; Laterality: N/A; [place] CYSTOURETHROSCOPY,BIOPSY N/A 04/05/2019 Procedure: Cystoscopy, random bladder biopsies, Fulguration per Dr. Macedo; Carlo urgeon: Momo Macedo MD; Location: OR [facility]; Service: Urology; Laterality: N /A; [place] CYSTOURETHROSCOPY,FULGUR 0.5-2 CM LESN N/A 12/16/2016 Procedure: Re-Transurethral resection of bladder tumor medium; Surgeon: Momo epstein MD; Location: OR [facility]; Service: Urology; Laterality: N/A; TONSILLECTOMY TRANSURETHRAL RESECTION OF BLADDER TUMOR 2016 Allergies: Allergies Allergen Reactions Bee Venom Hives Sulfa Antibiotics Hives Social: 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 Socioeconomic History Marital status: Spouse name: Not on file Number of children: Not on file Years of education: Not on file Highest education level: Not on file 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 History 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 Social Needs Financial resource strain: Not on file Food insecurity Worry: Not on file Inability: Not on file Transportation needs Medical: Not on file Non-medical: Not on file Tobacco Use Smoking status: Former Smoker Packs/day: 0.00 Types: Cigarettes Quit date: 07/08/1989 Years since quittin.5 Smokeless tobacco: Never Used Substance and Sexual Activity Alcohol use: No Drug use: No Sexual activity: Not Currently Lifestyle Physical activity Days per week: Not on file Minutes per session: Not on file Stress: Not on file Relationships Social connections Talks on phone: Not on file Gets together: Not on file Attends cheondoism service: Not on file Active member of [...] Not on file 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 Family: Family History Problem Relation Age of [...] mouth as needed for Ere ctile Dysfunction Tamsulosin HCl 0.4 MG Oral Capsule (FLOMAX) Take 1 capsule by mouth Two T imes Daily (Patient taking differently: Take 0.4 mg by mouth every morning ) 60 capsule 5 TRIAMCINOLONE ACET & LIDOCAINE IJ Inject as directed amlodipine (NORVASC) 10 MG tablet Take 10 [...] treatment (Patient not tanisha ing: Reported on 01/29/2020) 30 tablet 0 Phenazopyridine HCl 100 MG Oral Tablet (PYRIDIUM) Take 1 tablet by mouth Three times daily as needed for Pain (Patient not taking: Reported on 01/29/2020 ) 9 tablet 0 tamsulosin HCl (FLOMAX) 0.4 MG CAPS Take 1 capsule by mouth daily (Patien t not taking: Reported on 01/29/2020) 30 capsule 3 No current facility-administered medications on file prior to visit. ROS: General: No fevers, chills, weight loss [...] no tingling or numbness Skin: No rashes PHYSICAL EXAM: CONSTITUTIONAL: General appearance is normal. Patient is well developed. ENT: Ears and nose are normal. Throat looks normal. There is no redness or swelli ng. EYES: EOMI. No scleral icterus. RESPIRATORY: The patient is breathing n ormally. No respiratory distress. MUSCULOSKELETAL: The patient moves all extr emities normally. SKIN: Appears normal. No rashes. NEURO: The patient is al ert, awake, and oriented x3. Normal speech. PSYCH: The patient has a normal m ood and normal affect. Labs: Admission on 01/16/2020, Discharged on 01/16/2020 Component Date Value Ref Range Status SURGICAL 01/16/2020 Final Value:Surgical Pathology Report Name: ODIN JONES Collection Date: 01/16/2020 00:00 Received Date: 01/16/2020 11:56 Physician(s): MOMO MACEDO MD SHAPIRO, OLEG, MD Specimen(s) Received [...] is based on a microscopic examination of outside medical sales representative sections of tissue. Gross Description The specimen is received in eight parts. Part A is received in formalin labeled with the patient's name "Odin Jones" and "right lateral w all". It consists of a single soft lopez tissue fragment measuring 0.2 cm in greatest dimension. Totally submitted in one cassette. Part B is received in formalin labeled with the patient's name "Odin Rhyner" and "posterior bladder wall". It consists of a single soft lopez tissue fragment measuring 0.2 cm in greatest dimension. Totally submitted in one cassette. Part C is received in formalin labeled with the patient's name "Odin Rhyner" and "left lateral wall". It consists of a single soft lopez tissue fragment measuring 0.1 cm in greatest dimension. Totally submitted in one cassette. Part D is received in formalin labeled with the patient's name "Odin Rhyner" and "left lateral wall". It consists of a single soft lopez tissue fragment measuring 0.3 cm in greatest dimension. Totally submitted in one cassette. Part E is received in formalin labeled with the patient's name "Odin Rhyner" and "posterior wall". It consists of a single sof t lopez tissue fragment measuring 0.2 cm in greatest dimension. Totally submitted in one cassette. Part F is received in formalin labeled with the patient's name "Odin Rhyner" and "trigone". It consists of a single soft lopez tissue fragment measuring 0.3 cm in greatest dimension. Totally submitted in one cassette. Part G is received in formalin labeled with the patient's name "Oidn Rhyner" and "bladder dome". It consists of a single soft lopez tissue fragment measuring 0.1 cm in greatest dimension. Totally submitted in one cassette. Part H is received in formalin labeled with the patient's name "Odin Rhyner" and "prosthetic urethra". It consists of a single soft lopez tissue fragment measuring 0.2 cm in greatest dimension. Totally submitted in one cassette. ND/hjg This report may include one or more immunohistochemical stain results that use analyte specific reagents. All positive and negative controls have been reviewed by the [facility] pathologist and are satisfactory. The tests were developed and their performance characteristics determined by [facility] Pathology department. They have not been cleared or approved by the [place] Food and Drug Administration. The FDA has determined that such clearance or approval is not necessary. 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 I pres ented all of the options to the family. These include another intravesical agen t versus radical cystectomy. The family would like to try another intravesical therapy. We will set him up to have 50-50 mixture of Gemzar and docetaxel for 6 weeks. I would like to obtain CT of the chest as well as CT IVP. I will take the patient back to the operating room about 4 weeks after completion of intrave sical therapy for cystoscopy with random bladder biopsies. This is a telemedical visit. The patient was informed of the risks including sec urity breech, technological failure, inability to perform a comprehensive physic al exam which could delay or prevent an accurate diagnosis, and potential compli cations from treatment decisions rendered over a telemedical platform. The patie nt understands and consented to the use of tele-health services. Scribe Software was used. I appreciate the opportunity to see this patient and I will keep you posted on h is progress. Momo Macedo MD FACS Appeals Specialist Departments of Urology and Radiation Oncology [place], [place] documented in this encounter Plan of Treatment Care Team Description Date Type Specialty Teetee Gómez MD [address] [place] [id number] [phone] 02/01/2020 Office Visit Hematology and Onco logy Order Schedule Name Type Priority Associated Diag noses Expected: 01/29/2020, Expires: 2 CT Abdomen Pelvis with Imaging Routine Maligna nt neoplasm of and without Contrast urinary bladder, unspecified site Expected: 01/29/2020, Expires: 2 CT Thorax with Contrast Imaging Routine Malign ant neoplasm of urinary bladder, unspecified site 1 Occurrences starting 01/29/2020 until 07/29/2020 Basic metabolic panel Lab Routine Malignan t neoplasm of urinary bladder, unspecified site Health Maintenance Due Date Last Done Comments [...] ot Implanted Type Area Manufactur er 02/27/2019 [id number] / / Imp- [employer] Lung Sealnt Dev5/Bx Right: Lung AN GIOTECH - [id number] Implanted: Qty: 1 on 07/30/2016 by Keon Nuñez MD at [facility] INPATIENT documented as of this encounter Results Not on filedocumented in this encounter Visit Diagnoses Diagnosis Malignant neoplasm of urinary bladder, unspecified site - Primary Malignant neoplasm of urinary bladder, unspecified site - Primary Other fatigue documented in this encounter
--- OUTSIDE RECORDS SUMMARY | 2020-04-26 00:49 | CCD | Continuity of Care Document ---
Author Author Jean CARVAJAL M.D. Organization Unknown Address [address] [address] Phone [phone] Care Team Providers Care Electronics Engineering Technician Name Role Phone Cornelius Dean M.D. [facility] [phone] Problems Active Problems Provider Date Coronary atherosclerosis [...] Height 72 inches 6'0" Weight 221.00 lb [place] Body Weight 178 lb BMI (Body Mass Index) 30.0 kg/m2 O2 % BldC Oximetry 93 % 12/24/2019 1:18pm BP Systolic 124 mmHg BP Diastolic 68 mmHg Body Temperature 98.4 F Heart Rate 66 /min Respiratory Rate 16 /min Height 72 inches 6'0" Weight 219.00 lb [place] Body Weight 160 lb BMI (Body Mass Index) 29.7 kg/m2 O2 % BldC Oximetry 92 % Results Test Acquired Date Facility Test Result H/L Range Note Ua Routine 01/07/2020 [facility] ([facility]) [phone] Appearance, Urine HAZY Normal Clear Color, Urine YELLOW Normal Yellow PH,Urine 7.0 units Normal 5.0-9.0 Specific Andrews Urine Auto 1.017 Normal 1.002-1.035 Protein, Urine [...] 1 /LPF Normal 0-1 Urine Culture 01/07/2020 [facility] ([facility]) [phone] Urine Culture FULL REPORT IN L <SEE NOTE> Normal 1 Hemoglobinopathy Profile 12/24/2019 [facility] [place] Hgb Solubility Negative Negative Hgb F 0.5 % 0.0-2.0 Hgb A 95.9 % Low 96.4-98.8 Hgb S 0.0 % 0.0 Hgb C 0.0 % 0.0 Hgb A2 3.6 % High 1.8-3.2 Hgb Variant 0.0 % 0.0 Interpretation See Comment: 2 Iron And Tibc 12/24/2019 [facility] [place] [...] eGFR 44 # Calc 4 eGFR Non-Afr. English 38 # Calc 5 CBC 12/24/2019 [facility]/Inhouse [...] ulU/mL 0.60 - 4.8 Ua Routine 12/10/2019 [facility]) [phone] Appearance, Urine CLEAR Normal Clear Color, Urine YELLOW Normal Yellow PH,Urine 6.0 units Normal 5.0-9.0 Specific Andrews Urine Auto 1.017 Normal 1.002-1.035 Protein, Urine [...] 0 /LPF Normal 0-1 Urine Culture 12/10/2019 [facility] [phone] Urine Culture FULL REPORT IN L <SEE NOTE> Normal 6 CBC With Differential 12/10/2019 [facility] ([facility]) [phone] White Blood Count 4.8 10 Normal 4.0-10.0 [...] 36.0-66.0 Lymph % 13.4 % Low 24.0-44.0 [place] % 9.3 % High 0.0-5.0 Eos % 4.3 % High 0.0-3.0 Baso % 0.4 % Normal 0.0-1.0 Immature Granulocyte % 0.4 % Normal 0-3.0 Nucleated Red Blood Cell % 0.0 % Normal 0-0 Neutrophils # 3.5 10 Normal 1.5-8.5 Lymph # 0.7 10 Low 1.5-5.0 [place] # 0.5 10 Normal 0.0-0.8 Eos # 0.2 10 Normal 0.0-0.5 Baso # 0.0 10 Normal 0.0-0.2 Prothrombin Time/Inr 12/10/2019 [facility] ( [facility]) [phone] Prothrombin Time 18.7 seconds High 12.5-14.3 Inr 1.53 Normal 7 Basic Metabolic Profile 12/10/2019 [facility] ([facility]) [phone] Glucose, Fasting 98 mg/dL Normal 70-100 Blood Urea Nitrogen 23 mg/dL High 7-18 Creatinine For GFR 1.26 mg/dL Normal 0.70-1.30 Glomerular Filtration Rate 58.3 Normal >35 8 Sodium Level 142 mEq/L Normal 136-145 Potassium Serum 4.8 mEq/L Normal 3.5-5.1 Chloride Level 107 mEq/L Normal 98-107 Carbon Dioxide Level 31 mEq/L Normal 21-32 Anion Gap 4 mEq/L Low 8-16 Calcium Level 8.7 mg/dL Low 8.8-10.2 Complete Blood Count 12/10/2019 [facility] ( [facility]) [phone] White Blood Count 4.8 10 Normal 4.0-10.0 [...] Cell % 0.0 % Normal 0-0 1 FULL REPORT IN LAB NOTES ([facility]C [facility] and [facility]). NO GROWTH 2 Hemoglobin pattern and jason ntrations are consistent with beta- Thalassemia minor. Suggest hematologic and clinical correlation. 3 NORMAL RANGES Age WBC RBC HGB [...] HCT IS 5% LESS SOURCE FOR DATA: ETIENNE DYN 1800 OPERATION MANUAL( AUTOMATED BLOOD COUNTS AND [...] YEARS EXCLUSIVE. 4 CKD-EPI 5 CKD-EPI 6 FULL REPORT IN LAB NOTES ([facility] and [facility]). NO GROWTH 7 THERAPUTIC HUMAN INR VALUES INDICATIONS NORMAL RANGES PROPHYLAXIS/TREATMENT OF: VENOUS THROMBOSIS 2.0-3.0 PULMONARY EMBOLISM 2.0-3.0 PREVENTION OF SYSTEMIC EMBOLISM FROM: TISSUE HEART VALVES 2.0-3.0 ACUTE MYOCARDIAL INFARCTION 2.0-3.0 VALVULAR HEART DISEASE 2.0-3.0 ATRIAL FIBRILLATION 2.0-3.0 MECHANICAL VALVES(HIGH RISK) 2.5-3.5 RECURRENT MYOCARDIAL INFARCTION 2.5-3.5 8 Units are mL/min/1.73 m2 Chronic Kidney Disease Staging per NKF: Stage I & II GFR >=60 Normal to Mildly Decreased Stage III GFR 30-59 Moderately Decreased Stage IV GFR 15-29 Severely Decreased Stage V GFR <15 Very Little GFR Left ESRD GFR <15 on CLUBHOUSE ATTENDANT Procedures Description No Information Available Medical Devices Description No Information Available Encounters Type Date Location Provider Dx Diagnosis Office Visit 01/23/2020 9:00a [place] [facility] Harjinder Carvajal M. D. D56.3 Thalassemia minor I25.10 [place] heart disease of [place] coronary artery w/o ang pctrs Office Visit 12/24/2019 1:15p [place] [facility] Harjinder Carvajal M. D. 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 01/23/2020 I25.10 Atherosclerotic hear t disease [place] coronary artery without angina pectoris Harjinder Carvajal M.D. 12/24/2019 M54.9 Dorsalgia, unspecified Harjinder Carvajal M.D. 12/24/2019 Z00.00 Encounter for genera l adult medical examination without abnormal findings Harjinder Carvajal M.D. 12/24/2019 I25.10 Atherosclerotic hear t disease of [place] coronary artery without angina pectoris Harjinder Carvajal M.D. 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 Plan of Treatment Future Appointment(s):* 07/23/2020 9:00 am - Harjinder Carvajal M.D. at [facility] Functional Status Description No Information Available Mental Status Description No Information Available Referrals Description No Information Available
--- OUTSIDE RECORDS SUMMARY | 2020-04-26 00:49 | CCD | Continuity of Care Document ---
Author Author Jean DHALIWAL DPM Organization Unknown Address [address] [place] [address], [address] [place] [address] Phone [phone] Care Team Providers Care Horse Rider Name Role Phone Adrian Jung Darrell SHANDRAM [phone] Problems Active Problems Provider Date Osteochondropathy [place] Dhaliwal DPM Onset: 03/22/2018 Pain in limb [place] Dhali[place] DPM Onset: 03/22/2018 Ingrowing nail [place] Dhali[place] DPM Onset: 03/22/2018 Onychomycosis [place] Dhali[place] DPM Onset: 12/27/2018 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 Type Date Description Comments Sex Unknown ETOH Use Denies alcohol use Tobacco Use Start: Unknown Quit 25+ years ago a fter 30 year history of 1/2 PPD habit. Allergies, Adverse Reactions, Alerts Active Allergies Reaction Severity Comments Date Sulfa Antibiotics 06/07/2016 Medications Active Medications SIG Qnty Indications Ordering Provide r Date Amlodipine Besylate Unknown Aspir-81 Unknown Atorvastatin Calcium Unknown Captopril Unknown Multiple Vitamin Unknown 00 Nitrostat Unknown Timolol Maleate Unknown 0 Fluticasone Propionate Unknown Eliquis Unknown Immunizations Description No Information Available Vital Signs Date Vital Result Comment 03/09/2018 10:48am Height 72 inches 6'0" Weight 238.00 lb BP Systolic 130 mmHg BP Diastolic 80 mmHg Heart Rate 60 /min BMI (Body Mass Index) 32.3 kg/m2 06/07/2016 8:11am Height 73 inches 6'1" Weight 73.00 lb BP Systolic 124 mmHg BP Diastolic 70 mmHg BMI (Body Mass Index) 9.6 kg/m2 Results Description No Information Available Procedures Description No Information Available Medical Devices Description No Information Available Encounters Description No Information Available Assessments Date Code Description Provider 01/17/2020 B35.1 Rene Dhaliwal DPM 11/15/2019 B35.1 Rene Dhaliwal DPM Plan of Treatment Future Appointment(s):* 03/27/2020 10:00 am - [place] Dhal[place] DPM at [place] [facility] Functional Status Description No Information Available Mental Status Description No Information Available Referrals Description No Information Available
--- OUTSIDE RECORDS SUMMARY | 2020-04-26 00:54 | CCD ---
Author Author [facility] Organization [facility] Address Unknown Phone Unavailable Care Team Providers Care Manager Camp Name Role Phone NASIMMANUELJANICEMIRANDA Unavailable Unavailable Beatriz GUTHRIE Unavailable Unavailable Symenow, Fatoumata Block PA Unavailable Unavailable SymenowFatoumata PA Unavailable Unavailable Symenoilir, Fatoumata Block PA Unavailable Unavailable Symenow, Fatoumata Block PA Unavailable Unavailable Symenoilir, Fatoumata Block PA Unavailable Unavailable Symenoilir, Fatoumata Block PA Unavailable Unavailable Symenow, Fatoumata Block PA Unavailable Unavailable Symenow, Fatoumata Block PA Unavailable Unavailable Symenoilir, Fatoumata Block PA Unavailable Unavailable Symenow, Fatoumata Block PA Unavailable Unavailable Symenow, Fatoumata Block PA Unavailable Unavailable Symenow, Fatoumata Block PA Unavailable Unavailable Symenow, Fatoumata Block PA Unavailable Unavailable Symenow, Fatoumata Mckayla PA Unavailable Unavailable Symenow, Fatoumata Mckayla PA Unavailable Unavailable Symenow, Fatoumata Mckayla PA Unavailable Unavailable Symenow, Fatoumata Mckayla PA Unavailable Unavailable Symenow, Fatoumata Mckayla PA Unavailable Unavailable Symenow, Fatoumata Mckayla PA Unavailable Unavailable Symenow, Fatoumata Mckayla PA Unavailable Unavailable Symenow, Fatoumata Mckayla PA Unavailable Unavailable Symenow, Fatoumata Mckayla PA Unavailable Unavailable Symenow, Fatoumata Mckayla PA Unavailable Unavailable Symenow, Fatoumata Mckayla PA Unavailable Unavailable Symenow, Fatoumata Mckayla PA Unavailable Unavailable Symenow, Fatoumata Mckayla PA Unavailable Unavailable Symenow, Fatoumata Mckayla PA Unavailable Unavailable Symenow, Fatoumata Mckayla PA Unavailable Unavailable Symenow, Fatoumata Mckayla PA Unavailable Unavailable Symenow, Fatoumata Mckayla PA Unavailable Unavailable Symenow, Fatoumata Mckayla PA Unavailable Unavailable Symenow, Fatoumata Mckayla PA Unavailable Unavailable Symenow, Fatoumata Mckayla PA Unavailable Unavailable Symenow, Fatoumata Mckayla PA Unavailable Unavailable Symenow, Fatoumata Mckayla PA Unavailable Unavailable Symenow, Fatoumata Mckayla PA Unavailable Unavailable Conway, M Myesha SUBWAY CONDUCTOR Unavailable Unavailable Conwya, M Myesha SUBWAY CONDUCTOR Unavailable Unavailable Conway, M Myesha SUBWAY CONDUCTOR Unavailable Unavailable Conway, M Myesha SUBWAY CONDUCTOR Unavailable Unavailable Conway, M Myesha SUBWAY CONDUCTOR Unavailable Unavailable Conway, M Myesha SUBWAY CONDUCTOR Unavailable Unavailable Conway, M Myesha SUBWAY CONDUCTOR Unavailable Unavailable Conway, M Myesha SUBWAY CONDUCTOR Unavailable Unavailable Conway, M Myesha SUBWAY CONDUCTOR Unavailable Unavailable Conway, M Myesha SUBWAY CONDUCTOR Unavailable Unavailable Conway, M Myesha SUBWAY CONDUCTOR Unavailable Unavailable Conway, M Myesha SUBWAY CONDUCTOR Unavailable Unavailable Conway, M Myesha SUBWAY CONDUCTOR Unavailable Unavailable Conway, M Myesha SUBWAY CONDUCTOR Unavailable Unavailable Conway, M Myesha SUBWAY CONDUCTOR Unavailable Unavailable Conway, M Myesha SUBWAY CONDUCTOR Unavailable Unavailable Conway, M Myesha SUBWAY CONDUCTOR Unavailable Unavailable Conway, M Myesha SUBWAY CONDUCTOR Unavailable Unavailable Conway, M Myesha SUBWAY CONDUCTOR Unavailable Unavailable Conway, M Myesha SUBWAY CONDUCTOR Unavailable Unavailable Conway, M Myesha SUBWAY CONDUCTOR Unavailable Unavailable GANEY, L RIZWAN Unavailable Unavailable NAHEED, L CESIA Unavailable Unavailable Detor, M Alejandrina WATCH CRYSTAL EDGE GRINDER Unavailable Unavailable Detor, M Alejandrina WATCH CRYSTAL EDGE GRINDER Unavailable Unavailable Detor, M Alejandrina WATCH CRYSTAL EDGE GRINDER Unavailable Unavailable Detor, M Alejandrina WATCH CRYSTAL EDGE GRINDER Unavailable Unavailable Detor, M Alejandrina WATCH CRYSTAL EDGE GRINDER Unavailable Unavailable Detor, M Alejandrina WATCH CRYSTAL EDGE GRINDER Unavailable Unavailable Detor, M Alejandrina WATCH CRYSTAL EDGE GRINDER Unavailable Unavailable Detor, M Alejandrina WATCH CRYSTAL EDGE GRINDER Unavailable Unavailable Detor, M Alejandrina WATCH CRYSTAL EDGE GRINDER Unavailable Unavailable Detor, M Alejandrina WATCH CRYSTAL EDGE GRINDER Unavailable Unavailable Detor, M Alejandrina WATCH CRYSTAL EDGE GRINDER Unavailable Unavailable Detor, M Alejandrina WATCH CRYSTAL EDGE GRINDER Unavailable Unavailable Detor, M Alejandrina WATCH CRYSTAL EDGE GRINDER Unavailable Unavailable Detor, M Alejandrina WATCH CRYSTAL EDGE GRINDER Unavailable Unavailable Detor, M Alejandrina WATCH CRYSTAL EDGE GRINDER Unavailable Unavailable Detor, M Alejandrina WATCH CRYSTAL EDGE GRINDER Unavailable Unavailable Detor, M Alejandrina WATCH CRYSTAL EDGE GRINDER Unavailable Unavailable Detor, M Alejandrina WATCH CRYSTAL EDGE GRINDER Unavailable Unavailable Detor, M Alejandrina WATCH CRYSTAL EDGE GRINDER Unavailable Unavailable Detor, M Alejandrina WATCH CRYSTAL EDGE GRINDER Unavailable Unavailable Detor, M Alejandrina WATCH CRYSTAL EDGE GRINDER Unavailable Unavailable Detor, M Alejandrina WATCH CRYSTAL EDGE GRINDER Unavailable Unavailable Detor, M Alejandrina WATCH CRYSTAL EDGE GRINDER Unavailable Unavailable Detor, M Alejandrina WATCH CRYSTAL EDGE GRINDER Unavailable Unavailable Detor, M Alejandrina WATCH CRYSTAL EDGE GRINDER Unavailable Unavailable Detor, M Alejnadrina WATCH CRYSTAL EDGE GRINDER Unavailable Unavailable Detor, M Alejandrina WATCH CRYSTAL EDGE GRINDER Unavailable Unavailable Detor, M Alejandrina WATCH CRYSTAL EDGE GRINDER Unavailable Unavailable Detor, M Alejandrina WATCH CRYSTAL EDGE GRINDER Unavailable Unavailable Detor, M Alejandrina WATCH CRYSTAL EDGE GRINDER Unavailable Unavailable Detor, M Alejandrina WATCH CRYSTAL EDGE GRINDER Unavailable Unavailable Detor, M Alejandrina WATCH CRYSTAL EDGE GRINDER Unavailable Unavailable Detor, M Alejandrina WATCH CRYSTAL EDGE GRINDER Unavailable Unavailable Detor, M Alejandrina WATCH CRYSTAL EDGE GRINDER Unavailable Unavailable Detor, M Alejandrina WATCH CRYSTAL EDGE GRINDER Unavailable Unavailable Detor, M Alejandrina WATCH CRYSTAL EDGE GRINDER Unavailable Unavailable Teetee Gómez MD . Unavailable Teetee Gómez MD . Unavailable Teetee Gómez MD . Unavailable Teetee Gómez MD . Unavailable Teetee Gómez MD . Unavailable Teetee Gómez MD . Unavailable Teetee Gómez MD . Unavailable Teetee Gómez MD . Unavailable Teetee Gómez MD . Unavailable Dalia MD, Teetee . Unavailable Dalia MD, Teetee . Unavailable Dalia MD, Teetee . Unavailable Dalia MD, Teetee . Unavailable Dalia MD, Teetee . Unavailable Dalia MD, Teetee . Unavailable Dalia MD, Teetee . Unavailable Dalia MD, Teetee . Unavailable Dalia MD, Teetee . Unavailable Dalia MD, Teetee . Unavailable Dalia MD, Teetee . Unavailable Dalia MD, Teetee . Unavailable Dalia MD, Teetee . Unavailable Dalia MD, Teetee . Unavailable Dalia MD, Teetee . Unavailable Dalia MD, Teetee . Unavailable Dalia MD, Teetee . Unavailable Dalia MD, Teetee . Unavailable Dalia MD, Teetee . Unavailable Dalia MD, Teetee . Unavailable Dalia MD, Teetee . Unavailable Detor, M Alejandrina WATCH CRYSTAL EDGE GRINDER Unavailable Unavailable Detor, M Alejandrina WATCH CRYSTAL EDGE GRINDER Unavailable Unavailable Detor, M Alejandrina WATCH CRYSTAL EDGE GRINDER Unavailable Unavailable Detor, M Alejandrina WATCH CRYSTAL EDGE GRINDER Unavailable Unavailable Detor, M Alejandrina WATCH CRYSTAL EDGE GRINDER Unavailable Unavailable Detor, M Alejandrina WATCH CRYSTAL EDGE GRINDER Unavailable Unavailable Detor, M Alejandrina WATCH CRYSTAL EDGE GRINDER Unavailable Unavailable Detor, M Alejandrina WATCH CRYSTAL EDGE GRINDER Unavailable Unavailable Detor, M Alejandrina WATCH CRYSTAL EDGE GRINDER Unavailable Unavailable Detor, M Alejandrina WATCH CRYSTAL EDGE GRINDER Unavailable Unavailable Detor, M Alejandrina WATCH CRYSTAL EDGE GRINDER Unavailable Unavailable Detor, M Alejandrina WATCH CRYSTAL EDGE GRINDER Unavailable Unavailable Detor, M Alejandrina WATCH CRYSTAL EDGE GRINDER Unavailable Unavailable Detor, M Alejandrina WATCH CRYSTAL EDGE GRINDER Unavailable Unavailable Detor, M Alejandrina WATCH CRYSTAL EDGE GRINDER Unavailable Unavailable Detor, M Alejandrina WATCH CRYSTAL EDGE GRINDER Unavailable Unavailable Detor, M Alejandrina WATCH CRYSTAL EDGE GRINDER Unavailable Unavailable Detor, M Alejandrina WATCH CRYSTAL EDGE GRINDER Unavailable Unavailable Detor, M Alejandrina WATCH CRYSTAL EDGE GRINDER Unavailable Unavailable Detor, M Alejandrina WATCH CRYSTAL EDGE GRINDER Unavailable Unavailable Detor, M Alejandrina WATCH CRYSTAL EDGE GRINDER Unavailable Unavailable Detor, M Alejandrina WATCH CRYSTAL EDGE GRINDER Unavailable Unavailable Detor, M Alejandrina WATCH CRYSTAL EDGE GRINDER Unavailable Unavailable Detor, M Alejandrina WATCH CRYSTAL EDGE GRINDER Unavailable Unavailable Detor, M Alejandrina WATCH CRYSTAL EDGE GRINDER Unavailable Unavailable Detor, M Alejandrina WATCH CRYSTAL EDGE GRINDER Unavailable Unavailable Detor, M Alejandrina WATCH CRYSTAL EDGE GRINDER Unavailable Unavailable Detor, M Alejandrina WATCH CRYSTAL EDGE GRINDER Unavailable Unavailable Detor, M Alejandrina WATCH CRYSTAL EDGE GRINDER Unavailable Unavailable Detor, M Alejandrina WATCH CRYSTAL EDGE GRINDER Unavailable Unavailable Detor, M Alejandrina WATCH CRYSTAL EDGE GRINDER Unavailable Unavailable Detor, M Alejandrina WATCH CRYSTAL EDGE GRINDER Unavailable Unavailable Detor, M Alejandrina WATCH CRYSTAL EDGE GRINDER Unavailable Unavailable Detor, M Alejandrina WATCH CRYSTAL EDGE GRINDER Unavailable Unavailable Detor, M Alejandrina WATCH CRYSTAL EDGE GRINDER Unavailable Unavailable Detor, M Alejandrina WATCH CRYSTAL EDGE GRINDER Unavailable Unavailable De La Garza, Zhandong Unavailable Unavailable De La Garza, Zhandong Unavailable Unavailable De La Garza, Zhandong Unavailable Unavailable De La Garza, Zhandong Unavailable Unavailable De La Garza, Zhandong Unavailable Unavailable De La Garza, Zhandong Unavailable Unavailable De La Garza, Zhandong Unavailable Unavailable De La Garza, Zhandong Unavailable Unavailable De La Garza, Zhandong Unavailable Unavailable De La Garza, Zhandong Unavailable Unavailable De La Garza, Zhandong Unavailable Unavailable De La Garza, Zhandong Unavailable Unavailable De La Garza, Zhandong Unavailable Unavailable De La Garza, Zhandong Unavailable Unavailable De La Garza, Zhandong Unavailable Unavailable De La Garza, Zhandong Unavailable Unavailable De La Garza, Zhandong Unavailable Unavailable De La Garza, Zhandong Unavailable Unavailable De La Garza, Zhandong Unavailable Unavailable De La Garza, Zhandong Unavailable Unavailable De La Garza, Zhandong Unavailable Unavailable De La Garza, Zhandong Unavailable Unavailable De La Garza, Zhandong Unavailable Unavailable De La Garza, Zhandong Unavailable Unavailable De La Garza, Zhandong Unavailable Unavailable De La Garza, Zhandong Unavailable Unavailable De La Garza, Zhandong Unavailable Unavailable De La Garza, Zhandong Unavailable Unavailable De La Garza, Zhandong Unavailable Unavailable De La Garza, Zhandong Unavailable Unavailable De La Garza, Zhandong Unavailable Unavailable De La Garza, Zhandong Unavailable Unavailable De La Garza, Zhandong Unavailable Unavailable De La Garza, Zhandong Unavailable Unavailable De La Garza, Zhandong Unavailable Unavailable De La Garza, Zhandong Unavailable Unavailable De La Garza, Zhandong Unavailable Unavailable De La Garza, Zhandong Unavailable Unavailable De La Garza, Zhandong Unavailable Unavailable De La Garza, Zhandong Unavailable Unavailable De La Garza, Zhandong Unavailable Unavailable De La Garza, Zhandong Unavailable Unavailable De La Garza, Zhandong Unavailable Unavailable De La Garza, Zhandong Unavailable Unavailable De La Garza, Zhandong Unavailable Unavailable De La Garza, Zhandong Unavailable Unavailable De La Garza, Zhandong Unavailable Unavailable De La Garza, Zhandong Unavailable Unavailable De La Garza, Zhandong Unavailable Unavailable De La Garza, Zhandong Unavailable Unavailable De La Garza, Zhandong Unavailable Unavailable De La Garza, Zhandong Unavailable Unavailable De La Garza, Zhandong Unavailable Unavailable De La Garza, Zhandong Unavailable Unavailable De La Garza, Zhandong Unavailable Unavailable De La Garza, Zhandong Unavailable Unavailable De La Garza, Zhandong Unavailable Unavailable EANNIELLO, L YANIQUE SUBWAY CONDUCTOR Unavailable Unavailable EANNIELLO, L YANIQUE SUBWAY CONDUCTOR Unavailable Unavailable EANNIELLO, L YANIQUE SUBWAY CONDUCTOR Unavailable Unavailable EANNIELLO, L YANIQUE SUBWAY CONDUCTOR Unavailable Unavailable EANNIELLO, L YANIQUE SUBWAY CONDUCTOR Unavailable Unavailable EANNIELLO, L YANIQUE SUBWAY CONDUCTOR Unavailable Unavailable EANNIELLO, L YANIQUE SUBWAY CONDUCTOR Unavailable Unavailable EANNIELLO, L YANIQUE SUBWAY CONDUCTOR Unavailable Unavailable EANNIELLO, L YANIQUE SUBWAY CONDUCTOR Unavailable Unavailable EANNIELLO, L YANIQUE SUBWAY CONDUCTOR Unavailable Unavailable EANNIELLO, L YANIQUE SUBWAY CONDUCTOR Unavailable Unavailable EANNIELLO, L YANIQUE SUBWAY CONDUCTOR Unavailable Unavailable EANNIELLO, L YANIQUE SUBWAY CONDUCTOR Unavailable Unavailable EANNIELLO, L YANIQUE SUBWAY CONDUCTOR Unavailable Unavailable EANNIELLO, L YANIQUE SUBWAY CONDUCTOR Unavailable Unavailable EANNIELLO, L YANIQUE SUBWAY CONDUCTOR Unavailable Unavailable EANNIELLO, L YANIQUE SUBWAY CONDUCTOR Unavailable Unavailable EANNIELLO, L YANIQUE SUBWAY CONDUCTOR Unavailable Unavailable EANNIELLO, L YANIQUE SUBWAY CONDUCTOR Unavailable Unavailable EANNIELLO, L YANIQUE SUBWAY CONDUCTOR Unavailable Unavailable EANNIELLO, L YANIQUE SUBWAY CONDUCTOR Unavailable Unavailable EANNIELLO, L YANIQUE SUBWAY CONDUCTOR Unavailable Unavailable EANNIELLO, L YANIQUE SUBWAY CONDUCTOR Unavailable Unavailable EANNIELLO, L YANIQUE SUBWAY CONDUCTOR Unavailable Unavailable EANNIELLO, L YANIQUE SUBWAY CONDUCTOR Unavailable Unavailable EANNIELLO, L YANIQUE SUBWAY CONDUCTOR Unavailable Unavailable EANNIELLO, L YANIQUE SUBWAY CONDUCTOR Unavailable Unavailable EANNIELLO, L YNAIQUE SUBWAY CONDUCTOR Unavailable Unavailable EANNIELLO, L YANIQUE SUBWAY CONDUCTOR Unavailable Unavailable EANNIELLO, L YANIQUE SUBWAY CONDUCTOR Unavailable Unavailable EANNIELLO, L YANIQUE SUBWAY CONDUCTOR Unavailable Unavailable EANNIELLO, L YANIQUE SUBWAY CONDUCTOR Unavailable Unavailable EANNIELLO, L YANIQUE SUBWAY CONDUCTOR Unavailable Unavailable RUANO, SHYANNE MD Unavailable Unavailable RUANO, SHYANNE MD Unavailable Unavailable RUANO, SHYANNE MD Unavailable Unavailable RUANO, SHYANNE MD Unavailable Unavailable RUANO, SHYANNE MD Unavailable Unavailable RUANO, SHYANNE MD Unavailable Unavailable RUANO, SHYANNE MD Unavailable Unavailable RUANO, SHYANNE MD Unavailable Unavailable RUANO, SHYANNE MD Unavailable Unavailable RUANO, SHYANNE MD Unavailable Unavailable RUANO, SHYANNE MD Unavailable Unavailable RUANO, SHYANNE MD Unavailable Unavailable RUANO, SHYANNE MD Unavailable Unavailable RUANO, SHYANNE MD Unavailable Unavailable RUANO, SHYANNE MD Unavailable Unavailable RUANO, SHYANNE MD Unavailable Unavailable RUANO, SHYANNE MD Unavailable Unavailable RUANO, SHYANNE MD Unavailable Unavailable RUANO, SHYANNE MD Unavailable Unavailable RUANO, SHYANNE MD Unavailable Unavailable RUANO, SHYANNE MD Unavailable Unavailable RUANO, SHYANNE MD Unavailable Unavailable RUANO, SHYANNE MD Unavailable Unavailable RUANO, SHYANNE MD Unavailable Unavailable RUANO, SHYANNE MD Unavailable Unavailable RUANO, SHYANNE MD Unavailable Unavailable RUANO, SHYANNE MD Unavailable Unavailable RUANO, SHYANNE MD Unavailable Unavailable RUANO, SHYANNE MD Unavailable Unavailable RUANO, SHYANNE MD Unavailable Unavailable RUANO, SHYANNE MD Unavailable Unavailable RUANO, SHYANNE MD Unavailable Unavailable RUANO, SHYANNE MD Unavailable Unavailable RUANO, SHYANNE MD Unavailable Unavailable RUANO, SHYANNE MD Unavailable Unavailable RUANO, SHYANNE MD Unavailable Unavailable RUANO, SHYANNE MD Unavailable Unavailable RUANO, SHYANNE MD Unavailable Unavailable RUANO, SHYANNE MD Unavailable Unavailable RUANO, SHYANNE MD Unavailable Unavailable RUANO, SHYANNE MD Unavailable Unavailable RUANO, SHYANNE MD Unavailable Unavailable RUANO, SHYANNE MD Unavailable Unavailable RUANO, SHYANNE MD Unavailable Unavailable RUANO, SHYANNE MD Unavailable Unavailable RUANO, SHYANNE MD Unavailable Unavailable RUANO, SHYANNE MD Unavailable Unavailable RUANO, SHYANNE MD Unavailable Unavailable RUANO, SHYANNE MD Unavailable Unavailable RUANO, SHYANNE MD Unavailable Unavailable RUANO, SHYANNE MD Unavailable Unavailable RUANO, SHYANNE MD Unavailable Unavailable RUANO, SHYANNE MD Unavailable Unavailable RUANO, SHYANNE MD Unavailable Unavailable RUANO, SHYANNE MD Unavailable Unavailable RUANO, SHYANNE MD Unavailable Unavailable RUANO, SHYANNE MD Unavailable Unavailable RUANO, SHYANNE MD Unavailable Unavailable RUANO, SHYANNE MD Unavailable Unavailable RUANO, SHYANNE MD Unavailable Unavailable RUANO, SHYANNE MD Unavailable Unavailable RUANO, SHYANNE MD Unavailable Unavailable RUANO, SHYANNE MD Unavailable Unavailable RUANO, SHYANNE MD Unavailable Unavailable SHYANNE RUANO MD Unavailable Unavailable SHYANNE RUANO MD Unavailable Unavailable SHYANNE RUANO MD Unavailable Unavailable SHYANNE RUANO MD Unavailable Unavailable SHYANNE RUANO MD Unavailable Unavailable ALIASES , DEFAULT / GENERIC / UNKNOWN PROVIDER * Unavailable Unavailable ALIASES , DEFAULT / GENERIC / UNKNOWN PROVIDER * Unavailable Unavailable ALIASES , DEFAULT / GENERIC / UNKNOWN PROVIDER * Unavailable Unavailable ALIASES , DEFAULT / GENERIC / UNKNOWN PROVIDER * Unavailable Unavailable ALIASES , DEFAULT / GENERIC / UNKNOWN PROVIDER * Unavailable Unavailable ALIASES , DEFAULT / GENERIC / UNKNOWN PROVIDER * Unavailable Unavailable ALIASES , DEFAULT / GENERIC / UNKNOWN PROVIDER * Unavailable Unavailable ALIASES , DEFAULT / GENERIC / UNKNOWN PROVIDER * Unavailable Unavailable ALIASES , DEFAULT / GENERIC / UNKNOWN PROVIDER * Unavailable Unavailable ALIASES , DEFAULT / GENERIC / UNKNOWN PROVIDER * Unavailable Unavailable ALIASES , DEFAULT / GENERIC / UNKNOWN PROVIDER * Unavailable Unavailable ALIASES , DEFAULT / GENERIC / UNKNOWN PROVIDER * Unavailable Unavailable ALIASES , DEFAULT / GENERIC / UNKNOWN PROVIDER * Unavailable Unavailable ALIASES , DEFAULT / GENERIC / UNKNOWN PROVIDER * Unavailable Unavailable ALIASES , DEFAULT / GENERIC / UNKNOWN PROVIDER * Unavailable Unavailable ALIASES , DEFAULT / GENERIC / UNKNOWN PROVIDER * Unavailable Unavailable ALIASES , DEFAULT / GENERIC / UNKNOWN PROVIDER * Unavailable Unavailable ALIASES , DEFAULT / GENERIC / UNKNOWN PROVIDER * Unavailable Unavailable ALIASES , DEFAULT / GENERIC / UNKNOWN PROVIDER * Unavailable Unavailable ALIASES , DEFAULT / GENERIC / UNKNOWN PROVIDER * Unavailable Unavailable ALIASES , DEFAULT / GENERIC / UNKNOWN PROVIDER * Unavailable Unavailable ALIASES , DEFAULT / GENERIC / UNKNOWN PROVIDER * Unavailable Unavailable ALIASES , DEFAULT / GENERIC / UNKNOWN PROVIDER * Unavailable Unavailable ALIASES , DEFAULT / GENERIC / UNKNOWN PROVIDER * Unavailable Unavailable ALIASES , DEFAULT / GENERIC / UNKNOWN PROVIDER * Unavailable Unavailable ALIASES , DEFAULT / GENERIC / UNKNOWN PROVIDER * Unavailable Unavailable ALIASES , DEFAULT / GENERIC / UNKNOWN PROVIDER * Unavailable Unavailable ALIASES , DEFAULT / GENERIC / UNKNOWN PROVIDER * Unavailable Unavailable ALIASES , DEFAULT / GENERIC / UNKNOWN PROVIDER * Unavailable Unavailable ALIASES , DEFAULT / GENERIC / UNKNOWN PROVIDER * Unavailable Unavailable ALIASES , DEFAULT / GENERIC / UNKNOWN PROVIDER * Unavailable Unavailable ALIASES , DEFAULT / GENERIC / UNKNOWN PROVIDER * Unavailable Unavailable ALIASES , DEFAULT / GENERIC / UNKNOWN PROVIDER * Unavailable Unavailable ALIASES , DEFAULT / GENERIC / UNKNOWN PROVIDER * Unavailable Unavailable ALIASES , DEFAULT / GENERIC / UNKNOWN PROVIDER * Unavailable Unavailable ALIASES , DEFAULT / GENERIC / UNKNOWN PROVIDER * Unavailable Unavailable ALIASES , DEFAULT / GENERIC / UNKNOWN PROVIDER * Unavailable Unavailable ALIASES , DEFAULT / GENERIC / UNKNOWN PROVIDER * Unavailable Unavailable ALIASES , DEFAULT / GENERIC / UNKNOWN PROVIDER * Unavailable Unavailable ALIASES , DEFAULT / GENERIC / UNKNOWN PROVIDER * Unavailable Unavailable ALIASES , DEFAULT / GENERIC / UNKNOWN PROVIDER * Unavailable Unavailable ALIASES , DEFAULT / GENERIC / UNKNOWN PROVIDER * Unavailable Unavailable ALIASES , DEFAULT / GENERIC / UNKNOWN PROVIDER * Unavailable Unavailable ALIASES , DEFAULT / GENERIC / UNKNOWN PROVIDER * Unavailable Unavailable ALIASES , DEFAULT / GENERIC / UNKNOWN PROVIDER * Unavailable Unavailable ALIASES , DEFAULT / GENERIC / UNKNOWN PROVIDER * Unavailable Unavailable ALIASES , DEFAULT / GENERIC / UNKNOWN PROVIDER * Unavailable Unavailable ALIASES , DEFAULT / GENERIC / UNKNOWN PROVIDER * Unavailable Unavailable ALIASES , DEFAULT / GENERIC / UNKNOWN PROVIDER * Unavailable Unavailable ALIASES , DEFAULT / GENERIC / UNKNOWN PROVIDER * Unavailable Unavailable ALIASES , DEFAULT / GENERIC / UNKNOWN PROVIDER * Unavailable Unavailable ALIASES , DEFAULT / GENERIC / UNKNOWN PROVIDER * Unavailable Unavailable ALIASES , DEFAULT / GENERIC / UNKNOWN PROVIDER * Unavailable Unavailable Balbir, E Lilia Unavailable Unavailable Balbir, E Lilia Unavailable Unavailable POLICASTRO, G SOWMYA Unavailable Unavailable Pinzon, Grayson Unavailable Unavailable Pinzon, Grayson Unavailable Unavailable Pinzon, Grayson Unavailable Unavailable Pinzon, Grayson Unavailable Unavailable Pinzon, Grayson Unavailable Unavailable Pinzon, Grayson Unavailable Unavailable Pinzon, Grayson Unavailable Unavailable Pinzon, Grayson Unavailable Unavailable Pinzon, Grayson Unavailable Unavailable Pinzon, Grayson Unavailable Unavailable Pinzon, Grayson Unavailable Unavailable Pinzon, Grayson Unavailable Unavailable Pinzon, Grayson Unavailable Unavailable Pinzon, Grayson Unavailable Unavailable Pinzon, Grayson Unavailable Unavailable Pinzon, Grayson Unavailable Unavailable Pinzon, Grayson Unavailable Unavailable Pinzon, Grayson Unavailable Unavailable Pinzon, Grayson Unavailable Unavailable Pinzon, Grayson Unavailable Unavailable Pinzon, Grayson Unavailable Unavailable Pinzon, Grayson Unavailable Unavailable Pinzon, Grayson Unavailable Unavailable Pinzon, Grayson Unavailable Unavailable Pinzon, Grayson Unavailable Unavailable Pinzon, Grayson Unavailable Unavailable Pinzon, Grayson Unavailable Unavailable Pinzon, Grayson Unavailable Unavailable Pinzon, Grayson Unavailable Unavailable Pinzon, Grayson Unavailable Unavailable Pinzon, Grayson Unavailable Unavailable Pinzon, Grayson Unavailable Unavailable Pinzon, Garyson Unavailable Unavailable Pinzon, Grayson Unavailable Unavailable Pinzon, Grayson Unavailable Unavailable Pinzon, Grayson Unavailable Unavailable Pinzon, Grayson Unavailable Unavailable Pinzon, Grayson Unavailable Unavailable Pinzon, Grayson Unavailable Unavailable Pinzon, Grayson Unavailable Unavailable Pinzon, Grayson Unavailable Unavailable Pinzon, Grayson Unavailable Unavailable Pinzon, Rgayson Unavailable Unavailable Pinzon, Grayson Unavailable Unavailable Pinzon, Grayson Unavailable Unavailable Pinzon, Grayson Unavailable Unavailable Pinzon, Grayson Unavailable Unavailable Pinzon, Grayson Unavailable Unavailable Pinzon, Rgayson Unavailable Unavailable Pinzon, Grayson Unavailable Unavailable Pinzon, Grayson Unavailable Unavailable Piznon, Grayson Unavailable Unavailable Pinzon, Grayson Unavailable Unavailable Pinzon, Grayson Unavailable Unavailable Pinzon, Grayson Unavailable Unavailable Pinzon, Grayson Unavailable Unavailable Pinzon, Grayson Unavailable Unavailable Pinzon, Grayson Unavailable Unavailable Pinzon, Grayson Unavailable Unavailable Pinzon, Grayson Unavailable Unavailable Pinzon, Grayson Unavailable Unavailable Pinzon, Grayson Unavailable Unavailable Pinzon, Grayson Unavailable Unavailable Pinzon, Grayson Unavailable Unavailable Pinzon, Grayson Unavailable Unavailable Pinzon, Grayson Unavailable Unavailable Pinzon, Grayson Unavailable Unavailable Pinzon, Grayson Unavailable Unavailable Pinzon, Grayson Unavailable Unavailable Pinzon, Grayson Unavailable Unavailable Pinzon, Grayson Unavailable Unavailable Pinzon, Grayson Unavailable Unavailable Beatriz BLAIR MD Unavailable Unavailable Beatriz BLAIR MD Unavailable Unavailable Beatriz BLAIR MD Unavailable Unavailable Beatriz BLAIR MD Unavailable Unavailable Beatriz BLAIR MD Unavailable Unavailable Beatriz BLAIR MD Unavailable Unavailable Beatriz BLAIR MD Unavailable Unavailable Beatriz BLAIR MD Unavailable Unavailable Beatriz BLAIR MD Unavailable Unavailable Beatriz BLAIR MD Unavailable Unavailable Beatriz BLAIR MD Unavailable Unavailable Beatriz BLAIR MD Unavailable Unavailable Beatriz BLAIR MD Unavailable Unavailable Beatriz BLAIR MD Unavailable Unavailable Beatriz BLAIR MD Unavailable Unavailable Beatriz BLAIR MD Unavailable Unavailable Beatriz BLAIR MD Unavailable Unavailable Beatriz BLAIR MD Unavailable Unavailable Beatriz BLAIR MD Unavailable Unavailable Beatriz BLAIR MD Unavailable Unavailable Beatriz BLAIR MD Unavailable Unavailable Beatriz BLAIR MD Unavailable Unavailable Beatriz BLAIR MD Unavailable Unavailable Beatriz BLAIR MD Unavailable Unavailable Beatriz BLAIR MD Unavailable Unavailable Beatriz BLAIR MD Unavailable Unavailable Beatriz BLAIR MD Unavailable Unavailable Beatriz BLAIR MD Unavailable Unavailable Beatriz BLAIR MD Unavailable Unavailable Beatriz BLAIR MD Unavailable Unavailable Beatriz BLAIR MD Unavailable Unavailable Beatriz BLAIR MD Unavailable Unavailable Beatriz BLAIR MD Unavailable Unavailable Beatriz BLAIR MD Unavailable Unavailable Beatriz BLAIR MD Unavailable Unavailable BLAIRBeatriz Matos MD Unavailable Unavailable BLAIRBeatriz MD Unavailable Unavailable BLAIR E KALYN FOX Unavailable Unavailable BLAIR E KALYN FOX Unavailable Unavailable BLAIR E KALYN FOX Unavailable Unavailable BLAIR E KALYN FOX Unavailable Unavailable BLAIR E KALYN FOX Unavailable Unavailable BLAIR E KALYN FOX Unavailable Unavailable BLAIR E KALYN FOX Unavailable Unavailable BLAIR E KALYN FOX Unavailable Unavailable BLIAR E KALYN FOX Unavailable Unavailable BLAIR E KALYN FOX Unavailable Unavailable BLAIR E KALYN FOX Unavailable Unavailable BLAIR E KALYN FOX Unavailable Unavailable BLAIR E KALYN FOX Unavailable Unavailable BLAIR E KALYN FOX Unavailable Unavailable BLAIR E KALYN FOX Unavailable Unavailable BLAIR E KALYN FOX Unavailable Unavailable BLAIR E KALYN FOX Unavailable Unavailable BLAIR E KALYN FOX Unavailable Unavailable BLAIR E KALYN FOX Unavailable Unavailable BLAIR, E KALYN FOX Unavailable Unavailable Carlo KHAN MD Unavailable Unavailable Carlo KHAN MD Unavailable Unavailable Carlo KHAN MD Unavailable Unavailable Carlo KHAN MD Unavailable Unavailable Carlo KHAN MD Unavailable Unavailable Carlo KHAN MD Unavailable Unavailable Carlo KHAN MD Unavailable Unavailable Carlo KHAN MD Unavailable Unavailable Carlo KHAN MD Unavailable Unavailable Carlo KHAN MD Unavailable Unavailable Carlo KHAN MD Unavailable Unavailable Carlo KHAN MD Unavailable Unavailable Carlo KHAN MD Unavailable Unavailable Carlo KHAN MD Unavailable Unavailable Carlo KHAN MD Unavailable Unavailable Carlo KHAN MD Unavailable Unavailable Carlo KHAN MD Unavailable Unavailable Carlo KHAN MD Unavailable Unavailable Carlo KHAN MD Unavailable Unavailable Carlo KHAN MD Unavailable Unavailable Carlo KHAN MD Unavailable Unavailable Carlo KHAN MD Unavailable Unavailable Carlo KHAN MD Unavailable Unavailable Carlo KHAN MD Unavailable Unavailable Carlo KHAN MD Unavailable Unavailable Carlo KHAN MD Unavailable Unavailable Carlo KHAN MD Unavailable Unavailable Carlo KHAN MD Unavailable Unavailable PANCHO, S AYMAN MD Unavailable Unavailable PANCHO, S AYMAN MD Unavailable Unavailable PANCHO, S AYMAN MD Unavailable Unavailable PANCHO, S AYMAN MD Unavailable Unavailable PANCHO, S AYMAN MD Unavailable Unavailable PANCHO, S AYMAN MD Unavailable Unavailable PANCHO, S AYMAN MD Unavailable Unavailable PANCHO, S AYMAN MD Unavailable Unavailable PANCHO, S AYMAN MD Unavailable Unavailable PANCHO, S AYMAN MD Unavailable Unavailable PANCHO, S AYMAN MD Unavailable Unavailable PANCHO, S AYMAN MD Unavailable Unavailable PANCHO, S AYMAN MD Unavailable Unavailable PANCHO, S AYMAN MD Unavailable Unavailable PANCHO, S AYMAN MD Unavailable Unavailable PANCHO, S AYMAN MD Unavailable Unavailable PANCHO, S AYMAN MD Unavailable Unavailable PANCHO, S AYMAN MD Unavailable Unavailable PANCHO, S AYMAN MD Unavailable Unavailable PANCHO, S AYMAN MD Unavailable Unavailable PANCHO, S AYMAN MD Unavailable Unavailable PANCHO, S AYMAN MD Unavailable Unavailable PANCHO, S AYMAN MD Unavailable Unavailable PANCHO, S AYMAN MD Unavailable Unavailable PANCHO, S AYMAN MD Unavailable Unavailable PANCHO, S AYMAN MD Unavailable Unavailable PANCHO, S AYMAN MD Unavailable Unavailable PANCHO, S AYMAN MD Unavailable Unavailable PANCHO, S AYMAN MD Unavailable Unavailable PANCHO, S AYMAN MD Unavailable Unavailable PANCHO, S AYMAN MD Unavailable Unavailable PANCHO, S AYMAN MD Unavailable Unavailable PANCHO, S AYMAN MD Unavailable Unavailable PANCHO, S AYMAN MD Unavailable Unavailable PANCHO, S AYMAN MD Unavailable Unavailable PANCHO, S AYMAN MD Unavailable Unavailable PANCHO, S AYMAN MD Unavailable Unavailable PANCHO, S AYMAN MD Unavailable Unavailable PANCHO, S AYMAN MD Unavailable Unavailable PANCHO, S AYMAN MD Unavailable Unavailable PANCHO, S AYMAN MD Unavailable Unavailable PANCHO, S AYMAN MD Unavailable Unavailable PANCHO, S AYMAN MD Unavailable Unavailable PANCHO, S AYMAN MD Unavailable Unavailable PANCHO, S AYMAN MD Unavailable Unavailable PANCHO, S AYMAN MD Unavailable Unavailable PANCHO, S AYMAN MD Unavailable Unavailable Carlo KHAN MD Unavailable Unavailable Carlo KHAN MD Unavailable Unavailable Carlo KHAN MD Unavailable Unavailable Carlo KHAN MD Unavailable Unavailable Carlo KHAN MD Unavailable Unavailable Carlo KHAN MD Unavailable Unavailable Carlo KHAN MD Unavailable Unavailable Lolis Casey MD Unavailable Unavailable Lolis Casey MD Unavailable Unavailable Lolis Casey MD Unavailable Unavailable Lolis Casey MD Unavailable Unavailable Lolis Casey MD Unavailable Unavailable Lolis Casey MD Unavailable Unavailable Lolis Casey MD Unavailable Unavailable DE PAZ, L MINA Unavailable Unavailable Cassidy CARVAJAL MD Unavailable Unavailable Cassidy CARVAJAL MD Unavailable Unavailable Cassidy CARVAJAL MD Unavailable Unavailable Cassidy CARVAJAL MD Unavailable Unavailable Cassidy CARVAJAL MD Unavailable Unavailable Cassidy CARVAJAL MD Unavailable Unavailable Cassidy CARVAJAL MD Unavailable Unavailable Cassidy CARVAJAL MD Unavailable Unavailable Cassidy CARVAJAL MD Unavailable Unavailable Cassidy CARVAJAL MD Unavailable Unavailable Cassidy CARVAJAL MD Unavailable Unavailable Cassidy CARVAJAL MD Unavailable Unavailable Cassidy CARVAJAL MD Unavailable Unavailable Cassidy CARVAJAL MD Unavailable Unavailable Cassidy CARVAJAL MD Unavailable Unavailable Cassidy CARVAJAL MD Unavailable Unavailable Cassidy CARVAJAL MD Unavailable Unavailable Cassidy CARVAJAL MD Unavailable Unavailable Cassidy CARVAJAL MD Unavailable Unavailable Cassidy CARVAJAL MD Unavailable Unavailable Cassidy CARVAJAL MD Unavailable Unavailable Cassidy CARVAJAL MD Unavailable Unavailable Cassidy CARVAJAL MD Unavailable Unavailable Cassidy CARVAJAL MD Unavailable Unavailable Cassidy CARVAJAL MD Unavailable Unavailable Cassidy CARVAJAL MD Unavailable Unavailable Cassidy CARVAJAL MD Unavailable Unavailable Cassidy CARVAJAL MD Unavailable Unavailable Cassidy CARVAJAL MD Unavailable Unavailable Cassidy CARVAJAL MD Unavailable Unavailable Cassidy CARVAJAL MD Unavailable Unavailable Cassidy CARVAJAL MD Unavailable Unavailable Cassidy CARVAJAL MD Unavailable Unavailable Cassidy CARVAJAL MD Unavailable Unavailable Cassidy CARVAJAL MD Unavailable Unavailable Cassidy CARVAJAL MD Unavailable Unavailable Cassidy CARVAJAL MD Unavailable Unavailable Cassidy CARVAJAL MD Unavailable Unavailable Cassidy CARVAJAL MD Unavailable Unavailable Cassidy CARVAJAL MD Unavailable Unavailable Cassidy CARVAJAL MD Unavailable Unavailable Cassidy CARVAJAL MD Unavailable Unavailable Cassidy CARVAJAL MD Unavailable Unavailable Cassidy CARVAJAL MD Unavailable Unavailable Cassidy CARVAJAL MD Unavailable Unavailable Cassidy CARVAJAL MD Unavailable Unavailable Cassidy CARVAJAL MD Unavailable Unavailable NAHEED, H HARJINDER MD Unavailable Unavailable NAHEED H HARJINDER FOX Unavailable Unavailable NAHEED, H HARJINDER MD Unavailable Unavailable NAHEED, H HARJINDER MD Unavailable Unavailable NAHEED, H HARJINDER MD Unavailable Unavailable NAHEED, H HARJINDER MD Unavailable Unavailable NAHEED, H HARJINDER MD Unavailable Unavailable NAHEED, H HARJINDER MD Unavailable Unavailable NAHEED, H HARJINDER MD Unavailable Unavailable NAHEED, H HARJINDER MD Unavailable Unavailable NAHEED, H HARJINDER MD Unavailable Unavailable NAHEED, H HARJINDER MD Unavailable Unavailable NAHEED, H HARJINDER MD Unavailable Unavailable NAHEED, H HARJINDER MD Unavailable Unavailable NAHEED, H HARJINDER MD Unavailable Unavailable NAHEED, H HARJINDER MD Unavailable Unavailable NAHEED, H HARJINDER MD Unavailable Unavailable NAHEED, H HARJINDER MD Unavailable Unavailable NAHEED, H HARJINDER MD Unavailable Unavailable NAHEED, H HARJINDER MD Unavailable Unavailable NAHEED, H HARJINDER MD Unavailable Unavailable NAHEED, H HARJINDER MD Unavailable Unavailable NAHEED, H HARJINDER MD Unavailable Unavailable NAHEED, H HARJINDER MD Unavailable Unavailable NAHEED, H HARJINDER MD Unavailable Unavailable NAHEED, H HARJINDER MD Unavailable Unavailable NAHEED, H HARJINDER MD Unavailable Unavailable NAHEED, H HARJINDER MD Unavailable Unavailable NAHEED H HARJINDER FOX Unavailable Unavailable COLIN VASQUEZ RN Unavailable Unavailable Volin, Dennys Unavailable Unavailable Volin, Dennys Unavailable Unavailable Volin, Dennys Unavailable Unavailable Volin, Dennys Unavailable Unavailable Volin, Dennys Unavailable Unavailable Volin, Dennys Unavailable Unavailable Volin, Dennys Unavailable Unavailable Volin, Dennys Unavailable Unavailable Volin, Dennys Unavailable Unavailable Volin, Dennys Unavailable Unavailable Volin, Dennys Unavailable Unavailable Volin, Dennys Unavailable Unavailable Volin, Dennys Unavailable Unavailable Volin, Dennys Unavailable Unavailable Volin, Dennys Unavailable Unavailable Volin, Dennys Unavailable Unavailable Volin, Dennys Unavailable Unavailable Volin, Dennys Unavailable Unavailable Volin, Dennys Unavailable Unavailable Volin, Dennys Unavailable Unavailable Volin, Dennys Unavailable Unavailable Volin, Dennys Unavailable Unavailable Volin, Dennys Unavailable Unavailable Volin, Dennys Unavailable Unavailable Volin, Dennys Unavailable Unavailable Volin, Dennys Unavailable Unavailable Volin, Dennys Unavailable Unavailable Volin, Dennys Unavailable Unavailable Volin, Dennys Unavailable Unavailable Volin, Dennys Unavailable Unavailable Volin, Dennys Unavailable Unavailable Volin, Dennys Unavailable Unavailable Volin, Dennys Unavailable Unavailable Volin, Dennys Unavailable Unavailable Volin, Dennys Unavailable Unavailable Volin, Dennys Unavailable Unavailable Volin, Dennys Unavailable Unavailable Volin, Dennys Unavailable Unavailable Volin, Dennys Unavailable Unavailable Volin, Dennys Unavailable Unavailable Volin, Dennys Unavailable Unavailable Volin, Dennys Unavailable Unavailable Volin, Dennys Unavailable Unavailable Volin, Dennys Unavailable Unavailable Volin, Dennys Unavailable Unavailable Volin, Dennys Unavailable Unavailable Volin, Dennys Unavailable Unavailable Volin, Dennys Unavailable Unavailable Volin, Dennys Unavailable Unavailable Volin, Dennys Unavailable Unavailable Volin, Dennys Unavailable Unavailable Volin, Dennys Unavailable Unavailable Volin, Dennys Unavailable Unavailable Volin, Dennys Unavailable Unavailable Volin, Dennys Unavailable Unavailable Volin, Dennys Unavailable Unavailable Volin, Dennys Unavailable Unavailable Volin, Dennys Unavailable Unavailable Volin, Dennys Unavailable Unavailable CHOW, Angel LICONA Unavailable Unavailable DONA, L KARLA Unavailable Unavailable DONA, L KARLA Unavailable Unavailable Pinkes, A Darrell Unavailable Pinkes, A Darrell Unavailable Pinkes, A Darrell Unavailable Pinkes, A Darrell Unavailable Pinkes, A Darrell Unavailable Pinkes, A Adrrell Unavailable Pinkes, A Darrell Unavailable Pinkes, A Darrell Unavailable Pinkes, A Darrell Unavailable Pinkes, A Darrell Unavailable Pinkes, A Darrell Unavailable Pinkes, A Darrell Unavailable Pinkes, A Darrell Unavailable Pinkes, A Darrell Unavailable Pinkes, A Darrell Unavailable Pinkes, A Darrell Unavailable Pinkes, A Darrell Unavailable Pinkes, A Darrell Unavailable Pinkes, A Darrell Unavailable Pinkes, A Darrell Unavailable Pinkes, A Darrell Unavailable Pinkes, A Darrell Unavailable Pinkes, A Darrell Unavailable Pinkes, A Darrell Unavailable Pinkes, A Darrell Unavailable Pinkes, A Darrell Unavailable Pinkes, A Darrell Unavailable Pinkes, A Darrell Unavailable Lenny Santos Unavailable Re-disclosure Warning The records that you are about to access may contain information from federally-assisted alcohol or drug abuse programs. If such information is present, then the following federally mandated warning applies: This information has been disclosed to you from records protected by federal confidentiality rules (42 CFR part 2). The federal rules prohibit you from making any further disclosure of this information unless further disclosure is expressly permitted by the written consent of the person to whom it pertains or as otherwise permitted by 42 CFR part 2. A general authorization for the release of medical or other information is NOT sufficient for this purpose. The Federal rules restrict any use of the information to criminally investigate or prosecute any alcohol or drug abuse patient.The records that you are about to access may contain highly sensitive health information, the redisclosure of which is protected by Article 27-F of the [facility] Public Health law. If you continue you may have access to information: Regarding HIV / AIDS; Provided by facilities licensed or operated by the [facility] Office of Mental Health; or Provided by the [facility] Office for People With Developmental Disabilities. If such information is present, then the following [facility] mandated warning applies: This information has been disclosed to you from confidential records which are protected by state law. State law prohibits you from making any further disclosure of this information without the specific written consent of the person to whom it pertains, or as otherwise permitted by law. Any unauthorized further disclosure in violation of state law may result in a fine or nursing home sentence or both. A general authorization for the release of medical or other information is NOT sufficient authorization for further disc losure. Allergies and Adverse Reactions Type Description Substance Reaction Status Data Source(s ) Environmental Allergy Bees Bees PCC ([facility]) Drug allergy Sulfa Antibiotics Sulfa Antibiotics PCC ([facility]) bees, hornets bees, hornets bees, hornets hives Active eCW1 ([facility]) Sulfa (for allergy use only) Sulfa (for allergy use only) Marquez lfa (for allergy use only) Hives Active eCW1 ([facility]) bees, hornets bees, hornets bees, hornets hives Active eCW1 ([facility]) Sulfa (for allergy use only) Sulfa (for allergy use only) Marquez lfa (for allergy use only) Hives Active eCW1 ([facility]) Family History Family Member Name Family Member Gender Family Member Status Date o f Status Description Data Source(s) Unknown Unknown Problem [facility] ([facility]) Unknown Male Problem [facility] ([facility] () Unknown Female Problem MEDENT ([facility]) Encounters Encounter Providers Location Date Indications Data Source(s ) Outpatient Attender: Teetee Gómez MD 05/16/2020 12:00:00 A M [facility] Outpatient Attender: Teetee Gómez MD 04/11/2020 12:00:[address] [facility] Outpatient Attender: SOWMYA ACEVEDO [id number] 03/27/2020 08:30:[address] [facility] Outpatient Attender: DEFAULT / GENE ROGER / UNKNOWN PROVIDER ALIASES Attender: CESIA CARVAJAL 03/27/2020 12:00:00 AM ES T - 03/28/2020 12:00:00 AM EST Unspecified symptoms and signs involving the genitouri nary system [facility] Unspecified symptoms and signs involving the genitourinary system Outpatient Referrer: YANIQUE ANGELO NP 03/27/2020 1 2:00:00 AM EST Gross hematuria [facility] Gross hematuria Outpatient Attender: HARJINDER CARVAJAL MD [facility] 07:45:00 AM EST [facility] ([facility] Outpatient Attender: MIRANDA SKINNER 03/18/2020 12:00 :[address] [facility] Outpatient Attender: RIZWAN WATSON 03/11/19 12:00:00 AM EST - 03/11/2020 12:46:[address] [facility] Outpatient Attender: Grayson Pinzon [id number] 03/04/2020 12:00:0 0 AM EST Malignant neoplasm of bladder, unspecified [facility] Malignant neoplasm of bladder, unspecifi ed Outpatient Attender: Grayson Pinzon 03/04/2020 12:00:00 AM E [facility] Outpatient Attender: COLIN VASQUEZ RN [id number] 12:00:00 AM EST - 02/26/2020 02:51:48 PM EST [facility], unspecifi ed Outpatient Attender: COLIN VASQUEZ RNAttender: Grayson campoverde [id number] 02/19/2020 12:00:00 AM EST - 02/19/2020 01:19:36 PM EST [facility], unspecifi ed Office Visit Attender: KALYN BLAIR MD Main Office 02/12/2020 10:45:0 0 AM EST [facility] ([facility]) Outpatient Attender: COLIN VASQUEZ RN [id number] 12:00:00 AM EST - 02/12/2020 01:18:[address] [facility] Outpatient Attender: Teetee Gómez MD 02/01/2020 12:00:[address] [facility] Outpatient Attender: Grayson Pinzon [id number] 0 12:00:00 AM EST - 01/29/2020 12:27:[address] [facility] Outpatient Attender: HARJINDER CARVAJAL MD [place] [facility] 08:00:00 AM EST [facility] ([facility] Outpatient Attender: Teetee Gómez MD 01/18/2020 12:00:[address] [facility] Office Visit Attender: KALYN BLAIR MD Main Office 01/17/2020 03:07:0 0 PM EST [facility] ([facility]) Outpatient Attender: Grayson PinzonAdmitter: Grayson Pinzon [id number] 01/16/2020 12:00:00 AM EST - 01/16/2020 12:00:00 AM EST bladder cancer [facility] bladder cancer Patient discharged. Outpatient Attender: Mckayla COMBS Main Office 01/14/2020 08:45:00 AM EST [facility] ([facility]) Outpatient Attender: Grayson Pinzon [facility] 01/11/2020 06:30:00 AM [facility] Outpatient Attender: Teetee Gómez MD 12/28/2019 12:00:00 A M [facility] Outpatient Attender: HARJINDER CARVAJAL MD [place] [facility] 01:15:00 PM EDT [facility] ([facility] Outpatient Attender: Grayson PinzonAdmitter: Grayson Pinzon [id number] 12/19/2019 06:26:00 AM EDT - 12/19/2019 07:30:00 AM EDT bladder cancer [facility] bladder cancer Patient discharged. Outpatient Attender: Grayson Pinzon ER-[facility] 12/14/2019 09:30:00 AM [facility] Outpatient Attender: Teetee Gómez MD 12/14/2019 12:00:00 A M [facility] Office Visit Attender: KALYN BLAIR MD Main Office 11/29/2019 12:34:0 0 PM EDT [facility] ([facility]) Outpatient Attender: Teetee Gómez MD 11/16/2019 12:00:00 A M [facility] Outpatient Attender: Mckayla COMBS Main Office 11/12/2019 03:00:00 PM EDT [facility] ([facility]) Outpatient Attender: Teetee Gómez MD 11/09/2019 12:00:00 A M [facility] Office Visit Attender: KALYN BLAIR MD Main Office 10/30/2019 12:34:0 0 PM EDT [facility] ([facility]) Inpatient Attender: Elizabeth De La GarzaAdmitter: Elizabeth Henderson [id number] 10/16/2019 02:27:46 PM EDT - 10/24/2019 12:21:00 PM EDT [facility] Patient discharged. Outpatient Referrer: Alejandrina ACOSTA 10/16/2019 11:32:59 A M EDT [facility] Outpatient Attender: Alejandrina ACOSTA MOCAM-MOCAM 2019 12:00:00 AM EDT - 10/16/2019 01:29:34 PM EDT [facility] Outpatient Attender: SHYANNE RUANO MDConsultant: SHYANNE Olivia MD 10/11/2019 07:14:00 AM EDT - 10/11/2019 07:24:00 AM EDT [facility] Outpatient Attender: SHYANNE RUANO MDConsultant: SHYANNE Olivia MD 10/09/2019 06:39:00 AM EDT - 10/09/2019 06:49:00 AM EDT [facility] Outpatient Attender: SHYANNE RUANO MDConsultant: SHYANNE Olivia MD 10/08/2019 10:38:00 AM EDT - 10/08/2019 10:48:00 AM EDT [facility] Outpatient Attender: SHYANNE RUANO MDConsultant: SHAYNNE Olivia MD 10/05/2019 06:55:00 AM EDT - 10/05/2019 07:05:00 AM EDT [facility] Outpatient Attender: SHYANNE RUANO MDConsultant: SHYANNE Olivia MD 10/04/2019 06:44:00 AM EDT - 10/04/2019 06:54:00 AM EDT [facility] Outpatient Attender: SHYANNE RUANO MDConsultant: SHYANNE Olivia MD 10/03/2019 02:00:00 PM EDT - 10/03/2019 02:10:00 PM EDT [facility] Inpatient Attender: Lilia Mei er: Dennys SilvestreAdmitter: Dennys SilvestreConsultant: Dennys Silvestre [id number] 09/28/2019 09:02:33 PM ED T - 10/02/2019 03:00:00 PM EDT [facility] Patient discharged. Inpatient Attender: Darrell Santos 09/28/19 01:45:00 PM EDT - 09/28/2019 08:35:00 PM EDT [facility] ([facility] Patient discharged. Inpatient Attender: Elizabeth De La GarzaAdmitter: Elizabeth De La Garza E [id number] 09/20/2019 09:54:00 AM EDT - 09/28/2019 01:31:00 PM EDT [facility] Patient discharged. Outpatient Attender: Elizabeth De La GarzaReferrer: Elizabeth Ortiz OB-MOB.PAT 09/17/2019 10:39:14 AM EDT - 09/17/2019 10:39:33 AM EDT [facility] Outpatient Attender: Elizabeth De La GarzaReferrer: Elizabeth Henderson [id number] 09/17/2019 09:00:00 AM EDT - 09/17/2019 11:59:00 PM EDT [facility] Patient discharged. Outpatient Attender: Elizabeth De La GarzaReferrer: Elizabeth Ortiz OB-MOB.PAT 09/17/2019 07:26:28 AM EDT - 09/17/2019 09:01:06 AM EDT [facility] Outpatient Referrer: Alejandrina Tiwari WATCH CRYSTAL EDGE GRINDER 09/13/2019 12:48:30 P M EDT [facility] Outpatient Referrer: Alejandrina Tiwari WATCH CRYSTAL EDGE GRINDER 09/03/2019 03:16:18 P M EDT [facility] Outpatient Attender: Teetee Gómez MD 08/31/2019 12:00:00 A M [facility] Office Visit Attender: KALYN BLAIR MD Main Office 08/28/2019 03:31:0 0 PM EDT [facility] ([facility]) Outpatient Attender: LORENZO KHAN MDA dmitter: LORENZO KHAN MDReferrer: LORENZO KHAN MD [id number] 08/23/2019 01:19:00 PM EDT - 08/23/2019 06:30:00 PM EDT [facility] Patient discharged. Office Visit Attender: KALYN BLAIR MD Main Office 07/24/2019 11:55:0 0 AM EDT [facility] ([facility]) Outpatient Attender: Mckayla COMBS Main Office 07/11/2019 08:15:00 AM EDT [facility] ([facility]) [address], [facility] [id number] 07/06/2019 12:00:00 AM EDT eCW1 ([facility] the [facility]) [address] [place] [address] 07/04/2019 12:00:00 AM EDT eCW1 ([facility] includes the [facility]) Outpatient Attender: Teetee Gómez MD 06/29/2019 12:00:00 A M [facility] Office Visit Attender: KALYN BLAIR MD Main Office 06/19/2019 12:48:0 0 PM EDT [facility] ([facility]) Outpatient Attender: KARLA CARCAMO 06/11/2019 12:00:00 AM E DT [facility] Outpatient Referrer: Teetee Gómez MD 06/04/2019 12:0 0:00 AM EDT Malignant neoplasm of overlapping sites of bladder [facility] Malignant neoplasm of overlapping sites of bladder Outpatient Attender: LIVAN CHOW 06/04/2019 12:00:00 AM [facility] Outpatient Attender: Teetee Gómez MD 06/01/2019 12:00:00 A M [facility] Outpatient Referrer: Teetee Gómez MD 05/30/2019 12:00:00 A M [facility] Outpatient Attender: FLAKO GUTHRIE 05/28/2019 12:0 0:00 AM EDT Malignant neoplasm of bladder, unspecified [facility] Malignant neoplasm of bladder, unspecifi ed [facility] [address] [address] 05/23/2019 12:00:00 AM EDT eCW1 (Count includes the [facility]) Outpatient Attender: MINA DE PAZ 05/21/2019 12:00:00 AM EDT Malignant neoplasm of bladder, unspecified [facility] Malignant neoplasm of bladder, unspecifi ed Outpatient Attender: CESIA CARVAJAL 2019 12:00:00 AM EDT - 05/14/2019 10:51:23 AM [facility] Outpatient Attender: Teetee Gómez MD 05/09/2019 12:00:00 A M [facility] Outpatient Attender: MINA DE PAZ 05/07/2019 12:00:00 AM EDT Malignant neoplasm of bladder, unspecified [facility] Malignant neoplasm of bladder, unspecifi ed Outpatient 05/07/2019 12:00:00 AM [facility] Outpatient Attender: Teetee Gómez MD [id number] 2019 12:00:00 AM EST - 05/04/2019 09:13:30 AM EST Malignant neoplasm of overlapping sites of [facility] Malignant neoplasm of overlapping sites of bladder [address] [address] 05/04/2019 12:00:00 AM EST eCW1 (Count includes the [facility]) Outpatient Attender: Grayson Pinzon [id number] 12:00:00 AM EST - 04/30/2019 03:27:13 PM EST Malignant neoplasm of bladder, unspecified [facility] Malignant neoplasm of bladder, unspecifi ed Outpatient Attender: Grayson Pinzon 04/27/2019 12:00:00 AM E [facility] Outpatient Attender: Teetee Gómez MD 04/27/2019 12:00:[address] [facility] Outpatient Referrer: Myesha Conway NP 04/24/2019 12:00:[address] [facility] Outpatient Referrer: Lolis Casey MD 12:00:00 AM EST - 04/20/2019 11:59:00 PM EST Malignant neoplasm of overlapping sites of [facility] Malignant neoplasm of overlapping sites of bladder Outpatient Attender: Grayson Pinzon 04/13/2019 12:00:00 AM E [address] [address] 04/11/2019 12:00:00 AM EST eCW1 (Count includes the [facility]) Outpatient Attender: Grayson PinzonAdmitter: Grayson Pinzon [id number] 04/05/2019 12:00:00 AM EST - 04/05/2019 12:00:00 AM EST Bladder cancer [facility] Bladder cancer Patient discharged. Outpatient Attender: Teetee Gómez MD 03/30/2019 12:00:[address] [facility] Outpatient Referrer: Myesha Conway NP 03/22/2019 12:00:0 [address] [address] 03/16/2019 12:00:00 AM EST eCW1 (Count includes the [facility]) [address] [address] 03/07/2019 12:00:00 AM EST eCW1 (Formerly [facility]) [address] [address] 03/05/2019 12:00:00 AM EST eCW1 (Count includes the [facility]) Medications Medication Brand Name Start Date Product Form Dose Route Admi nistrative Instructions Pharmacy Instructions Status Indications Reaction Description Data Source(s) gemcitabine (GEMZAR) intravesical solution syringe 1,000 mg 02/26/2020 12:15:00 PM EST 1000 mg Intravesical active [facility] DOCEtaxel (TAXOTERE) 37.5 mg in sodium c hloride 0.9 % 50 mL intravesical solution 02/26/2020 12:00:00 AM EST 37.5 mg Intravesical active [facility] DOCEtaxel (TAXOTERE) 37.5 mg in sodium c hloride 0.9 % 50 mL intravesical solution 02/19/2020 11:30:00 AM EST 37.5 mg Intravesical active [facility] gemcitabine (GEMZAR) 1,000 mg in sodium chloride 0.9 % 50 mL (20 mg/mL) intravesical solution 02/12/2020 11:00:00 AM EST 1000 mg Intrave sical active [facility] DOCEtaxel (TAXOTERE) 37.5 mg in sodium c hloride 0.9 % 50 mL intravesical solution 02/12/2020 09:30:00 AM EST 37.5 mg Intravesical active [facility] Lactobacillus acidophilus [id number] UNT Oral Capsule Probiot ic 01/13/2020 12:00:00 AM EST ORAL active [facility] ([facility]) apixaban 5 MG Oral Tablet [Eliquis] Eliquis 12/13/2019 12:00:00 AM E DT ORAL active [facility] ([facility] 500 mg 12/07/2019 12:00:00 AM EDT tablet 28 TAKE ONE TABLET BY MOUTH FOUR TIMES A DAY UNTIL GONE TAKE ONE TABLET BY MOUTH FOUR TIMES A DAY UNTIL GONE SOLD: 12/07/2019 [facility] Calcium Carbonate 1250 MG / Cholecalciferol 125 UNT Oral Tab let Calcium 500 + D 11/20/2019 12:00:00 AM EDT ORAL active [facility] ([facility]) Calcium Carbonate 1250 MG / Cholecalcife rol 125 UNT Oral Tablet Calcium 500 + D 500-125 MG-UNIT Oral Tablet (Calcium Carbonate-Vitamin D) Calcium 500 + D 500- 125 MG-UNIT Oral Tablet (Calcium Carbonate-Vitamin D) 11/20/2019 12:00:00 AM EDT Oral active Take by mouth Ups [facility] Tamsulosin hydrochloride 0.4 MG Oral Cap teresa Tamsulosin HCl 0.4 MG Oral Capsule (FLOMAX) Tamsulosin HCl 0.4 MG Oral Capsule (FLOMAX) 11/13/2019 12:00 :00 AM EDT 0.4 mg Oral active Take 1 capsule b y mouth Two Times Daily [facility] Captopril 12.5 MG Oral Tablet Captopril 11/12/2019 12:00:00 AM EDT ORAL completed [facility] ([facility] Calcium Carbonate 500 MG Chewable Tablet [Tums] Tums 11/11/2019 12:00:00 AM EDT active [facility] ( [facility]) dorzolamide 20 MG/ML Ophthalmic Solution Dorzolamide HCL 11/11/2019 12:00:00 AM EDT active [facility] ([facility] Tamsulosin hydrochloride 0.4 MG Oral Capsule Tamsulosin HCL 11/11/2019 12:00:00 AM EDT ORAL active [facility] ([facility] ferrous gluconate 324 MG Oral Tablet Ferrous Gluconate 12:00:00 AM EDT ORAL active [facility] ([facility] Warfarin Sodium 3 MG Oral Tablet [Coumadin] Coumadin 09/30 12:00:00 AM EDT completed [facility] ([facility]) Metoprolol Tartrate 25 MG Oral Tablet me toprolol tartrate (LOPRESSOR) tablet 12.5 mg metoprolol tartrate (LOPRESSOR) tablet 12.5 mg 11:00:00 AM EDT 12.5 mg Oral active 12.5 mg, Oral, 2 times daily, First dose on Tue10/24/19 at 1100
Hold for SBP < 100 or HR < 60
[facility] Medication administered onsite Warfarin Sodium 3 MG Oral Tablet warfarin (COUMADIN) 3 MG tablet warfarin (COUMADIN) 3 MG tablet 10/24/2019 12:00:00 AM EDT active 3 mg daily until directed otherwise by Dr. Blair's office [facility] Docusate Sodium 100 MG Oral Capsule Docusate Sodium (, DSS,) 100 MG CAPS Docusate Sodium (,DSS,) 100 MG CAPS 10/24/2019 12:00:00 AM EDT 100 mg Oral active Take 1 capsule (100 mg total) by mouth 2 (two) times a day as needed [facility] Magnesium Chloride 0.86514 MEQ/ML / Pota ssium Chloride 0.0497 MEQ/ML / Sodium Acetate 0.0163 MEQ/ML / Sodium Chloride 0.0899 MEQ/ML / Sodium gluconate 5.02 MG/ML Injectable Solution [Normosol-R] electrolyte-R (NORMOSOL-R/PLASMALYTE-R) solution 1,000 mL electrolyte-R (NORMOSOL-R/PLASMALYTE-R) solution 1,000 mL 10/23/2019 05:00:00 PM EDT 1000 mL Intravenous completed at 100 mL/hr, 1,000 mL, Intravenous, Continuous, Starting Tue10/23/19 at 1700, PACU (only) [facility] Medication administered onsite Magnesium Chloride 0.03464 MEQ/ML / Pota ssium Chloride 0.0497 MEQ/ML / Sodium Acetate 0.0163 MEQ/ML / Sodium Chloride 0.0899 MEQ/ML / Sodium gluconate 5.02 MG/ML Injectable Solution [Normosol-R] electrolyte-R (NORMOSOL-R/PLASMALYTE-R) solution electrolyte-R (NORMOSOL-R/PLASMALYTE-R) solution 10/22 06:00:00 AM EDT Intravenous active at 3 0 mL/hr, Intravenous, Continuous, Starting Tue10/23/19 at 0600, Pre-op [facility] Medication administered onsite normal saline flush 0.9 % injection 3 mL [id number] 10/22/2019 03:00:00 PM EDT 3 mL Intravenous aborted 3 mL , Intravenous, Every 8 hours (scheduled), First dose on Tue10/22/19 at 1500, Pre-op
Rapid push positive pressure flushing shall be performed with a 10 cc normal saline syringe to check the PATENCY of a PIV site prior to any infusion therapy initiation unless resistance is met.
[facility] Medication administered onsite lidocaine (ASPERCREME) 4 % 2 patch [id number] 10/18/2019 09:02:45 AM EDT 2 {patch} Transdermal active 2 patch, Banuelos sdermal, Administer over 12 Hours, Every 24 hours as needed, pain, Starting Leslie 10/18/19 at 0902 [facility] Medication administered onsite potassium chloride SA (K-DUR,KLOR-CON) CR tablet 20 mEq [id number] 10/18/2019 05:00:00 AM EDT 20 meq Oral completed 20 mEq, Oral, Once, Leslie 10/18/19 at 0500, For 1 dose [facility] Medication administered onsite Docusate Sodium 100 MG Oral Capsule docusate sodium (C OLACE) capsule 200 mg docusate sodium (COLACE) capsule 200 mg 10/17/2019 09:00:00 AM EDT 200 mg Oral active 200 mg, Oral, 2 time s daily, First dose on Tue10/17/19 at 0900 [facility] Medication administered onsite Patient on Coumadin during hospitalizati on. (To order Coumadin on discharge click the don t prescribe button and go to new orders on discharge section. Coumadin can be ordered there. Alternatively, reconcile the pre admission Coumadin dose if it appears on the list below) 10/17/2019 08:21:52 AM EDT 1 {each} active 1 each, Miscellaneous, Daily Coumadin Notification (1000), Starting Tue10/17/19 at 0821, Until Discontinued
Indication for Warfarin: Atrial Fibrillation
Target INR: 2 to 3 [facility] Medication administered onsite atorvastatin 20 MG Oral Tablet atorvastatin (LIPITOR) tablet 20 mg atorvastatin (LIPITOR) tablet 20 mg 10/16/2019 09:00:00 PM EDT 20 mg Oral active 20 mg, Oral, Nightly, First dose on Tue10/16/19 at 2100 [facility] Medication administered onsite Docusate Sodium 100 MG Oral Capsule docusate sodium (C OLACE) capsule 100 mg docusate sodium (COLACE) capsule 100 mg 10/16/2019 09:00:00 PM EDT 100 mg Oral aborted 100 mg, Oral, 2 time s daily, First dose on Tue10/16/19 at 2099 [facility] Medication administered onsite ferrous gluconate 324 MG Oral Tablet ferrous gluconate (FERGON) tablet 324 mg ferrous gluconate (FERGON) tablet 324 mg 10/16/2019 09:00:00 PM EDT 324 mg Oral aborted 324 mg, Oral, 2 times daily, First dose on Tue10/16/19 at 2099
separate as far as possible from antacids, take with food
[facility] Medication administered onsite dorzolamide 20 MG/ML Ophthalmic Solution dorzolamide (TRUSOPT) 2 % ophthalmic solution 1 drop dorzolamide (TRUSOPT) 2 % ophthalmic solution 1 drop 0 10/16/2019 09:00:00 PM EDT 1 [drp] active 1 drop, Both Eyes, 2 times daily, First dose on Tue10/16/19 at 2099 [facility] Medication administered onsite Albuterol 0.833 MG/ML / Ipratropium Brom leon 0.167 MG/ML Inhalant Solution ipratropium-albuterol (DUO-NEB) 0.5-2.5 mg/mL nebulizer solution 3 mL ipratropium-albuterol (DUO-NEB) 0.5-2.5 mg/mL nebulizer solution 3 mL 10/16/2019 08:00:00 PM EDT 3 mL Inhalation active 3 mL, Inhalation, 3 times daily, First dose on Tue10/16/19 at 2000 [facility] Medication administered onsite Aspirin 81 MG Chewable Tablet aspirin chewable tablet 81 mg aspirin chewable tablet 81 mg 10/16/2019 06:00:00 PM EDT 81 mg Oral activ e 81 mg, Oral, Daily, First dose on Tue10/16/19 at 1800 [facility] Medication administered onsite DAILY KARAN (THERAGRAN) 1 tablet [id number] 10/16/2019 06:00:00 PM EDT 1 {tbl} Oral active 1 tablet, Oral, Daily, First dose on Tue10/16/19 at 1800 [facility] Medication administered onsite Folic Acid 1 MG Oral Tablet folic acid (FOLVITE) table t 1 mg folic acid (FOLVITE) tablet 1 mg 10/16/2019 06:00:00 PM EDT 1 mg Oral active 1 mg, Oral, Daily, First dose on Tue10/16/19 at 1800 [facility] Medication administered onsite fluticasone (FLONASE) 50 MCG/ACT nasal spray 1 spray [id number] 10/16/2019 06:00:00 PM EDT 1 {spray} Nasal active 1 spray, Nasal, Daily, First dose on Tue10/16/19 at 1800 [facility] Medication administered onsite Tamsulosin hydrochloride 0.4 MG Oral Cap teresa tamsulosin (FLOMAX) 24 hr capsule 0.4 mg tamsulosin (FLOMAX) 24 hr capsule 0.4 mg 10/16/2019 06:00:00 PM EDT 0.4 mg Oral active 0.4 mg, Oral, Daily, Fir st dose on Tue10/16/19 at 1800 [facility] Medication administered onsite Ascorbic Acid 500 MG Oral Tablet ascorbic acid (VITAMI N C) tablet 500 mg ascorbic acid (VITAMIN C) tablet 500 mg 10/16/2019 06:00:00 PM EDT 500 mg Oral active 500 mg, Oral, Daily, First dose on Tue10/16/19 at 1800 [facility] Medication administered onsite Albuterol 0.83 MG/ML Inhalant Solution a lbuterol (PROVENTIL) nebulizer solution 2.5 mg albuterol (PROVENTIL) nebulizer solution 2.5 mg 2019 04:45:00 PM EDT 2.5 mg active 2.5 mg, Nebulization, Every 2 hour PRN, wheezing, shortness of breath, Starting Tue10/16/19 at 1645 [facility] Medication administered onsite Acetaminophen 325 MG Oral Tablet acetaminophen (TYLENO L) 325 MG tablet 650 mg acetaminophen (TYLENOL) 325 MG tablet 650 mg 10/16/2019 04:45:00 PM EDT 650 mg Oral active 650 mg, Or al, Every 4 hours PRN, mild pain (1-3), moderate pain (4-6), headaches, fever, Give for temperature greater than temperature of 101 and call provider, Starting Tu10/16/19 at 1645
"Maximum dose of acetaminophen is 4,000 mg from all sources in 24 hours."
[facility] Medication administered onsite ferrous gluconate 324 MG Oral Tablet Hira roxana Gluconate 324 (38 Fe) MG Oral Tablet (FERGON) Ferrous Gluconate 324 (38 Fe) MG Oral Tablet (FERGON) 10/15/2019 12:00:00 AM EDT active [facility] Metoprolol Tartrate 25 MG Oral Tablet Metoprolol Tartrate 12:00:00 AM EDT ORAL active [facility] ([facility] Ascorbic Acid 500 MG Oral Tablet Ascorbic Acid 10/11/2019 12:00:00 AM EDT ORAL completed [facility] ([facility]) 8 HR Acetaminophen 650 MG Extended Release Oral Tablet Aceta minophen 8 Hour 10/11/2019 12:00:00 AM EDT ORAL active [facility] ([facility]) Docusate Sodium 100 MG Oral Capsule Docusate Sodium 10/11/2019 1 2:00:00 AM EDT ORAL active [facility] ( [facility]) atorvastatin 20 MG Oral Tablet Atorvastatin Calcium 10/11/2019 1 2:00:00 AM EDT ORAL active [facility] ( [facility]) Furosemide 40 MG Oral Tablet Furosemide 10/11/2019 12:00:00 AM EDT ORAL completed [facility] ([facility]) ferrous gluconate 324 MG Oral Tablet Ferrous Gluconate 12:00:00 AM EDT ORAL completed [facility] ([facility]) Folic Acid 1 MG Oral Tablet Folic Acid 10/11/2019 12:00:00 AM EDT ORAL active [facility] ([facility]) Ipratropium [place] 0.2 MG/ML Inhalant Solution Ipratropium [place] 10/11/2019 12:00:00 AM EDT active M [facility] ([facility]) Potassium Chloride 20 MEQ Extended Release Oral Tablet Potas sium Chloride ER 10/11/2019 12:00:00 AM EDT ORAL completed [facility] ([facility]) Tamsulosin hydrochloride 0.4 MG Oral Capsule Tamsulosin HCL 10/10/2019 12:00:00 AM EDT ORAL completed [facility] ([facility]) Warfarin Sodium 3 MG Oral Tablet warfarin (COUMADIN) t ablet 3 mg warfarin (COUMADIN) tablet 3 mg 10/02/2019 05:00:00 PM EDT 3 mg Oral active 3 mg, Oral, WAR, First dose on Tue10/02/19 at 1700, For 1 dose
For administration and preparation considerations, refer to Hazardous Drugs in the Workplace Policy on Intranet.
[facility] Medication administered onsite Furosemide 40 MG Oral Tablet furosemide (LASIX) tablet 40 mg furosemide (LASIX) tablet 40 mg 10/02/2019 05:00:00 PM EDT 40 mg Oral activ e 40 mg, Oral, LOOPBID, First dose on Tue10/02/19 at 1700 [facility] Medication administered onsite Acetaminophen 325 MG Oral Tablet acetaminophen (TYLENO L) 325 MG tablet acetaminophen (TYLENOL) 325 MG tablet 10/02/2019 12:00:00 AM EDT 65 0 mg Oral active Take 2 tablets (650 mg total) by mouth every 4 (four) hours as needed [facility] potassium chloride SA (K-DUR,KLOR-CON) 20 MEQ tablet [id number] 10/02/2019 12:00:00 AM EDT 20 meq Oral aborted Take 1 tablet (20 mEq total) by mouth 2 (two) times a day Take with Lasix [facility] Warfarin Sodium 3 MG Oral Tablet warfarin (COUMADIN) 3 MG tablet warfarin (COUMADIN) 3 MG tablet 10/02/2019 12:00:00 AM EDT 3 mg Oral aborted Take 1 tablet (3 mg total) by mouth daily Until dose adjusted [facility] Warfarin Sodium 3 MG Oral Tablet warfarin (COUMADIN) t ablet 3 mg warfarin (COUMADIN) tablet 3 mg 10/01/2019 05:00:00 PM EDT 3 mg Oral completed 3 mg, Oral, WAR, First dose on Tue10/01/19 at 1700, For 1 dose
For administration and preparation considerations, refer to Hazardous Drugs in the Workplace Policy on Intranet.
[facility] Medication administered onsite Warfarin Sodium 2 MG Oral Tablet warfarin (COUMADIN) t ablet 2 mg warfarin (COUMADIN) tablet 2 mg 09/30/2019 05:00:00 PM EDT 2 mg Oral completed 2 mg, Oral, WAR17, First dose on 09/30/19 at 1700, For 1 dose
For administration and preparation considerations, refer to Hazardous Drugs in the Workplace Policy on Intranet.
[facility] Medication administered onsite atorvastatin 20 MG Oral Tablet atorvastatin (LIPITOR) tablet 20 mg atorvastatin (LIPITOR) tablet 20 mg 09/29/2019 09:00:00 PM EDT 20 mg Oral active 20 mg, Oral, Nightly, First dose on 09/29/19 at 2100 [facility] Medication administered onsite Warfarin Sodium 3 MG Oral Tablet warfarin (COUMADIN) t ablet 3 mg warfarin (COUMADIN) tablet 3 mg 09/29/2019 05:00:00 PM EDT 3 mg Oral completed 3 mg, Oral, , First dose on 09/29/19 at 1700, For 1 dose
For administration and preparation considerations, refer to Hazardous Drugs in the Workplace Policy on Intranet.
[facility] Medication administered onsite Patient on Coumadin during hospitalizati on. (To order Coumadin on discharge click the don t prescribe button and go to new orders on discharge section. Coumadin can be ordered there. Alternatively, reconcile the pre admission Coumadin dose if it appears on the list below) 09/29/2019 11:03:57 AM EDT 1 {each} active 1 each, Miscellaneous, Daily Coumadin Notification (1000), Starting 09/29/19 at 1103, Until Discontinued
Indication for Warfarin: Atrial Fibrillation
Target INR: 2 to 3 [facility] Medication administered onsite Alprazolam 0.25 MG Oral Tablet ALPRAZolam (XANAX) tabl et 0.25 mg ALPRAZolam (XANAX) tablet 0.25 mg 09/29/2019 09:32:07 AM EDT 0.25 mg Oral active 0.25 mg, Oral, 3 times daily PRN, anxiety, Starting 09/29/19 at 0932, For 7 days [facility] Medication administered onsite Aspirin 81 MG Chewable Tablet aspirin chewable tablet 81 mg aspirin chewable tablet 81 mg 09/29/2019 09:00:00 AM EDT 81 mg Oral activ e 81 mg, Oral, Daily, First dose on [facility] 09/29/19 at 0900, Admission - Sign & Hold [facility] Medication administered onsite furosemide (LASIX) injection 40 mg [id number] 09/29/2019 09:00:00 AM EDT 40 mg Intravenous aborted 40 mg, I ntravenous, LOOPBID, First dose on 09/29/19 at 0900, Admission - Sign & Hold [facility] Medication administered onsite Tamsulosin hydrochloride 0.4 MG Oral Cap teresa tamsulosin (FLOMAX) 24 hr capsule 0.4 mg tamsulosin (FLOMAX) 24 hr capsule 0.4 mg 09/29/2019 09:00:00 AM EDT 0.4 mg Oral active 0.4 mg, Or al, Daily, First dose on [facility] 09/29/19 at 0900, Admission - Sign & Hold [facility] Medication administered onsite Albuterol 0.833 MG/ML / Ipratropium Brom leon 0.167 MG/ML Inhalant Solution ipratropium-albuterol (DUO-NEB) 0.5-2.5 mg/mL nebulizer solution 3 mL ipratropium-albuterol (DUO-NEB) 0.5-2.5 mg/mL nebulizer solution 3 mL 09/29/2019 08:00:00 AM EDT 3 mL Inhalation active 3 mL, Inhalation, 3 times daily, First dose on 09/29/19 at 0800, Admission - Sign & Hold [facility] Medication administered onsite normal saline flush 0.9 % injection 3 mL [id number] 09/29/2019 06:00:00 AM EDT 3 mL Intravenous active 3 mL , Intravenous, PROTOCOL, First dose on 09/29/19 at 0600, Admission - Sign & Hold
flush per protocol, D/C Main IV fluid if appropriate
[facility] Medication administered onsite normal saline flush 0.9 % injection 3 mL [id number] 09/29/2019 06:00:00 AM EDT 3 mL Intravenous aborted 3 mL , Intravenous, PROTOCOL, First dose on 09/29/19 at 0600, Admission - Sign & Hold
flush per protocol, D/C Main IV fluid if appropriate
[facility] Medication administered onsite Magnesium Hydroxide 80 MG/ML Oral Suspen rosy magnesium hydroxide (MILK OF MAGNESIA) 400 MG/5ML suspension 30 mL magnesium hydroxide (MILK OF MAGNESIA) 4 00 MG/5ML suspension 30 mL 09/29/2019 12:00:00 AM EDT 30 mL Oral active 30 mL, Oral, Daily PRN, constipation, Starting 09/29/19 at 0000, Admission - Sign & Hold
If senna-docusate is not effective
[facility] Medication administered onsite Docusate Sodium 50 MG / sennosides, [facility] 8.6 MG Oral Tablet senna-docusate (PERICOLACE) 8.6-50 MG 2 tablet senna-docusate (PERICOLACE) 8.6-50 MG 2 tablet 09/28/2019 11:40:00 PM EDT 2 {tbl} Oral active 2 tablet, Oral, Nightly, First dose on Tue09/28/19 at 2340, Admission - Sign & Hold
hold for loose stools
[facility] Medication administered onsite heparin (porcine) injection 5,000 Units [id number] 09/28/19 11:40:00 PM EDT 5000 U Subcutaneous active 5,000 Units , Subcutaneous, Every 8 hours (scheduled), First dose on Tue09/28/19 at 2340, Admission - Sign & Hold
If platelet count is less than 90,000 or hematocrit is less than 25, or if there is a 5 point decrease in hematocrit, do not give the dose and call physician/designee.
[facility] Medication administered onsite Metoprolol Tartrate 25 MG Oral Tablet me toprolol tartrate (LOPRESSOR) tablet 12.5 mg metoprolol tartrate (LOPRESSOR) tablet 12.5 mg 020 11:40:00 PM EDT 12.5 mg Oral active 12.5 mg, Oral, 2 times daily, First dose on Tue09/28/19 at 2340, Admission - Sign & Hold
Hold for HR <60, SBP <105
[facility] Medication administered onsite Albuterol 0.83 MG/ML Inhalant Solution a lbuterol (PROVENTIL) nebulizer solution 2.5 mg albuterol (PROVENTIL) nebulizer solution 2.5 mg 2019 11:23:50 PM EDT 2.5 mg active 2.5 mg, Nebulization, Every 2 hour PRN, wheezing, shortness of breath, Starting Tue09/28/19 at 2323, Admission - Sign & Hold [facility] Medication administered onsite Mineral Oil 1000 MG/ML Enema mineral oil enema 1 enema mineral oil enema 1 enema 09/28/2019 11:23:49 PM EDT 1 {enema} Rectal active 1 enema, Rectal, Daily PRN, constipation, unrelieved by MOM/bisacodyl/senna-docusate, Starting Tue09/28/19 at 2323, Admission - Sign & Hold
hold for loose stools
[facility] Medication administered onsite Acetaminophen 325 MG Oral Tablet acetaminophen (TYLENO L) 325 MG tablet 650 mg acetaminophen (TYLENOL) 325 MG tablet 650 mg 09/28/2019 11:23:49 PM EDT 650 mg Oral active 650 mg, Or al, Every 4 hours PRN, mild pain (1-3), headaches, Starting Tue09/28/19 at 2323, Admission - Sign & Hold
"Maximum dose of acetaminophen is 4,000 mg from all sources in 24 hours."
[facility] Medication administered onsite Bisacodyl 10 MG Rectal Suppository bisacodyl (DULCOLAX ) suppository 10 mg bisacodyl (DULCOLAX) suppository 10 mg 09/28/2019 11:23:49 PM EDT 10 mg Rectal active 10 mg, Rectal, Daily PRN, constipation, Starting Tue09/28/19 at 2323, Admission - Sign & Hold
Hold for BM.If senna-docusate and milk of magnesia are not effective
[facility] Medication administered onsite 2 ML Metoclopramide 5 MG/ML Prefilled Sy ringe metoclopramide (REGLAN) injection 10 mg metoclopramide (REGLAN) injection 10 mg 09/28/2019 11:23:49 PM E DT 10 mg Intravenous active 10 mg, I ntravenous, Every 6 hours PRN, for Nausea/Vomiting not relieved by zofran, Starting Tue09/28/19 at 2323, Admission - Sign & Hold [facility] Medication administered onsite ondansetron (ZOFRAN) injection 4 mg [id number] 09/28/2019 11:23:4 9 PM EDT 4 mg Intravenous active 4 mg, In travenous, Every 4 hours PRN, nausea, vomiting, Starting Tue09/28/19 at 2323, Admission - Sign & Hold [facility] Medication administered onsite Ascorbic Acid 500 MG Oral Tablet ascorbic acid (VITAMI N C) 500 MG tablet ascorbic acid (VITAMIN C) 500 MG tablet 09/28/2019 12:00:00 AM EDT 500 mg Oral aborted Take 1 tablet (500 m g total) by mouth daily [facility] Docusate Sodium 100 MG Oral Capsule docusate sodium (, DSS,) 100 MG CAPS docusate sodium (,DSS,) 100 MG CAPS 09/28/2019 12:00:00 AM EDT 100 mg Oral aborted Take 1 capsule (100 mg total) by mouth 2 (two) times a day [facility] Metoprolol Tartrate 25 MG Oral Tablet me toprolol tartrate (LOPRESSOR) 25 MG tablet metoprolol tartrate (LOPRESSOR) 25 MG tablet 09/28/2019 12:0 0:00 AM EDT 12.5 mg Oral active Take 0.5 tablets (12.5 mg total) by mouth 2 (two) times a day [facility] Albuterol 0.833 MG/ML / Ipratropium Brom leon 0.167 MG/ML Inhalant Solution ipratropium-albuterol (DUO-NEB) 0.5-2.5 mg/mL nebulizer ipratropium-albuterol (DUO-NEB) 0.5-2.5 mg/mL nebulizer 09/28/2019 12:00:00 AM EDT 3 mL Inhalation aborted Inhale 3 mL 3 (three) brenton es a day [facility] ferrous gluconate 324 MG Oral Tablet ferrous gluconate (FERGON) 324 MG tablet ferrous gluconate (FERGON) 324 MG tablet 09/28/2019 12:00:00 AM EDT 324 mg Oral active Take 1 tablet (324 m g total) by mouth 2 (two) times a day [facility] Folic Acid 1 MG Oral Tablet folic acid (FOLVITE) 1 MG tablet folic acid (FOLVITE) 1 MG tablet 09/28/2019 12:00:00 AM EDT 1 mg Oral active Take 1 tablet (1 mg total) by mouth daily [facility] potassium chloride SA (K-DUR,KLOR-CON) 10 MEQ tablet [id number] 09/28/2019 12:00:00 AM EDT 10 meq Oral aborted Take 1 tablet (10 mEq total) by mouth 2 (two) times a day Take with Lasix [facility] Warfarin Sodium 2 MG Oral Tablet warfarin (COUMADIN) 2 MG tablet warfarin (COUMADIN) 2 MG tablet 09/28/2019 12:00:00 AM EDT 2 mg Oral aborted Take 1 tablet (2 mg total) by mouth daily [facility] Furosemide 40 MG Oral Tablet furosemide (LASIX) 40 MG tablet furosemide (LASIX) 40 MG tablet 09/28/2019 12:00:00 AM EDT 40 mg Oral abort ed Take 1 tablet (40 mg total) by mouth 2 (two) times a day [facility] Folic Acid 1 MG Oral Tablet Folic Acid 1 MG Oral Table t (FOLVITE) Folic Acid 1 MG Oral Tablet (FOLVITE) 09/28/2019 12:00:00 AM EDT Oral active Take by mouth [facility] Warfarin Sodium 1 MG Oral Tablet warfarin (COUMADIN) t ablet 1 mg warfarin (COUMADIN) tablet 1 mg 09/27/2019 05:00:00 PM EDT 1 mg Oral completed 1 mg, Oral, WAR17, First dose on [facility] 09/27/19 at 1700, For 1 dose
For administration and preparation considerations, refer to Hazardous Drugs in the Workplace Policy on Intranet.
[facility] Medication administered onsite furosemide (LASIX) injection 40 mg [id number] 09/27/2019 09:00:00 AM EDT 40 mg Intravenous active 40 mg, I ntravenous, LOOPBID, First dose on Tue09/27/19 at 0900 [facility] Medication administered onsite magnesium citrate solution 148 mL [id number] 09/26/2019 03:00:00 PM EDT 148 mL Oral completed 148 mL, Or al, Once, Tue09/26/19 at 1500, For 1 dose
hold for loose stools
[facility] Medication administered onsite Metoprolol Tartrate 25 MG Oral Tablet me toprolol tartrate (LOPRESSOR) tablet 12.5 mg metoprolol tartrate (LOPRESSOR) tablet 12.5 mg 11:00:00 AM EDT 12.5 mg Oral active 12.5 mg, Oral, 2 times daily, First dose on Tue09/26/19 at 1100
Hold for HR <60, SBP <105
[facility] Medication administered onsite Furosemide 40 MG Oral Tablet furosemide (LASIX) tablet 40 mg furosemide (LASIX) tablet 40 mg 09/26/2019 11:00:00 AM EDT 40 mg Oral abort ed 40 mg, Oral, Every morning, First dose on Tue09/26/19 at 1100 [facility] Medication administered onsite Warfarin Sodium 3 MG Oral Tablet warfarin (COUMADIN) t ablet 3 mg warfarin (COUMADIN) tablet 3 mg 09/25/2019 05:00:00 PM EDT 3 mg Oral completed 3 mg, Oral, WAR17, First dose on Tue09/25/19 at 1700, For 1 dose
For administration and preparation considerations, refer to Hazardous Drugs in the Workplace Policy on Intranet.
[facility] Medication administered onsite POLYETHYLENE GLYCOL 3350 142 MG/ML Oral Solution polyethylene glycol (GLYCOLAX) packet 17 g polyethylene glycol (GLYCOLAX) packet 17 g 09/25/2019 09:00:00 AM EDT 17 g Oral active 17 g, Or al, Daily, First dose on Tue09/25/19 at 0900, Post-op
Start 2nd POD and continue until result.
[facility] Medication administered onsite DAILY KARAN (THERAGRAN) 1 tablet [id number] 09/25/2019 09:00:00 AM EDT 1 {tbl} Oral active 1 tablet, Oral, Daily, First dose on Tue09/25/19 at 0900, Post-op [facility] Medication administered onsite Folic Acid 1 MG Oral Tablet folic acid (FOLVITE) table t 1 mg folic acid (FOLVITE) tablet 1 mg 09/25/2019 09:00:00 AM EDT 1 mg Oral active 1 mg, Oral, Daily, First dose on Tue09/25/19 at 0900, Post-op [facility] Medication administered onsite Ascorbic Acid 500 MG Oral Tablet ascorbic acid (VITAMI N C) tablet 500 mg ascorbic acid (VITAMIN C) tablet 500 mg 09/25/2019 09:00:00 AM EDT 500 mg Oral active 500 mg, Oral, Daily, First dose on Tue09/25/19 at 0900, Post-op [facility] Medication administered onsite normal saline flush 0.9 % injection 3 mL [id number] 09/24/2019 10:00:00 PM EDT 3 mL Intravenous active 3 mL , Intravenous, PROTOCOL, First dose on Tue09/24/19 at 2200, Post-op
May convert IV to a saline lock when taking in good p.o. intake (minimally 600 mL).
[facility] Medication administered onsite ferrous gluconate 324 MG Oral Tablet ferrous gluconate (FERGON) tablet 324 mg ferrous gluconate (FERGON) tablet 324 mg 09/24/2019 09:00:00 PM EDT 324 mg Oral active 324 mg, Oral, 2 times daily, First dose on Tue09/24/19 at 2100, Post-op
Start when taking good p.o. intake.
[facility] Medication administered onsite Docusate Sodium 100 MG Oral Capsule docusate sodium (C OLACE) capsule 100 mg docusate sodium (COLACE) capsule 100 mg 09/24/2019 09:00:00 PM EDT 100 mg Oral active 100 mg, Oral, 2 times daily, First dose on Tue09/24/19 at 2100, Post-op
hold for loose stools
[facility] Medication administered onsite Warfarin Sodium 2 MG Oral Tablet warfarin (COUMADIN) t ablet 4 mg warfarin (COUMADIN) tablet 4 mg 09/24/2019 05:00:00 PM EDT 4 mg Oral completed 4 mg, Oral, WAR17, First dose on Tue09/24/19 at 1700, For 1 dose
For administration and preparation considerations, refer to Hazardous Drugs in the Workplace Policy on Intranet.
[facility] Medication administered onsite heparin (porcine) injection 5,000 Units [id number] 09/24/19 05:00:00 PM EDT 5000 U Subcutaneous active 5,000 Units , Subcutaneous, Every 8 hours (scheduled), First dose on Tue09/24/19 at 1700, Post-op
Hold for platelet count less than 90,000, INR greater than or equal to 1.7 if receiving coumadin therapy
[facility] Medication administered onsite acetaminophen (TYLENOL) 325 MG tablet 650 mg 0 04:21:00 PM EDT 650 mg Oral active [Order 1 S tart] Name: acetaminophen (TYLENOL) 325 MG tablet 650 mg Signed Summary: 650 mg, Oral, Every 4 hours PRN, fever, for temperature of 101 or greater. May also give for mild non-cardiac pain., Starting Tue09/24/19 at 1621, Post-op
"Maximum dose of acetaminophen is 4,000 mg from all sources in 24 hours."
[Order 1 End] [Order 2 Start] Name: acetaminophen (TYLENOL) suppository 650 mg Signed Summary: 650 mg (1 suppository), Rectal, Every 4 hours PRN, fever, for temperature of 101 or greater. May also give for mild non-cardiac pain., Starting Tue09/24/19 at 1621, Post-op [Order 2 End] [facility] Medication administered onsite potassium chloride SA (K-DUR,KLOR-CON) CR tablet 10 mEq 5528 9-359-09/24/2019 04:20:59 PM EDT 10 meq Oral active 10 mEq, Oral, As needed, Serum K+ 3.9-4.1, Starting Tue09/24/19 at 1620, Post-op
For serum creatinine (SCR) greater than 1.5
[facility] Medication administered onsite magnesium sulfate 1 g in dextrose 5% infusion (premix) [id number] -[id number] 09/24/2019 04:20:58 PM EDT 1 g Intravenous active 1 g, Intravenous, at 200 mL/hr, As needed, serum Mg 1.9-2.1, Starting Tue09/24/19 at 1620, Post-op
Give 1 grams magnesium sulfate IV x 1 run over 1 hourFor serum creatinine (SCR) greater than 1.5
[facility] Medication administered onsite 50 ML Magnesium Sulfate 40 MG/ML Injecti on magnesium sulfate 2 g in sterile diluent magnesium sulfate 2 g in sterile diluent 09/24/2019 04:20:58 PM EDT 2 g Intravenous active 2 g, Int ravenous, at 50 mL/hr, As needed, serum Mg 1.5-1.8, Starting Tue09/24/19 at 1620, Post-op
Give 2 grams magnesium sulfate IV x 1 run over 1 hour.For serum creatinine (SCR) greater than 1.5
[facility] Medication administered onsite potassium chloride SA (K-DUR,KLOR-CON) CR tablet 20 mEq 5528 9-359-09/24/2019 04:20:58 PM EDT 20 meq Oral active 20 mEq, Oral, As needed, Serum K+ 3.9-4.1, Starting Tue09/24/19 at 1620, Post-op
For serum creatinine (SCR) 0.8 to 1.5
[facility] Medication administered onsite potassium chloride SA (K-DUR,KLOR-CON) CR tablet 40 mEq 5528 9-359-09/24/2019 04:20:58 PM EDT 40 meq Oral active 40 mEq, Oral, As needed, Serum K+ 3.5-3.8, Starting Tue09/24/19 at 1620, Post-op
For serum creatinine (SCR) 0.8 to 1.5
[facility] Medication administered onsite potassium chloride SA (K-DUR,KLOR-CON) CR tablet 20 mEq [id number] 09/24/2019 04:20:58 PM EDT 20 meq Oral active 20 mEq, Oral, As needed, Serum K+ 3.5-3.8, Starting Tue09/24/19 at 1620, Post-op
For serum creatinine (SCR) greater than 1.5
[facility] Medication administered onsite 50 ML Magnesium Sulfate 40 MG/ML Injecti on magnesium sulfate 2 g in sterile diluent magnesium sulfate 2 g in sterile diluent 09/24/2019 04:20:58 PM EDT 2 g Intravenous active 2 g, Int ravenous, at 50 mL/hr, As needed, serum Mg 1.9-2.1, Starting Tue09/24/19 at 1620, Post-op
Give 2 grams magnesium sulfate IV x 1 run over 1 hour.For serum creatinine (SCR) 0.8 to 1.5
[facility] Medication administered onsite 50 ML Magnesium Sulfate 40 MG/ML Injecti on magnesium sulfate 2 g in sterile diluent magnesium sulfate 2 g in sterile diluent 09/24/2019 04:20:58 PM EDT 2 g Intravenous active 2 g, Int ravenous, at 50 mL/hr, As needed, serum Mg 1.5-1.8, Starting Tue09/24/19 at 1620, Post-op
Give 2 grams magnesium sulfate IV x 2 runs over 1 hour each.For serum creatinine (SCR) 0.8 to 1.5
[facility] Medication administered onsite Nitroglycerin 0.4 MG Sublingual Tablet n itroglycerin (NITROSTAT) SL tablet 0.4 mg nitroglycerin (NITROSTAT) SL tablet 0.4 mg 09/24/2019 04:20:58 P M EDT 0.4 mg Sublingual active 0.4 mg, S ublingual, Every 5 min PRN, chest pain, Starting Tue09/24/19 at 1620, Post-op
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 Notify MD/PA/SUBWAY CONDUCTOR.
[facility] Medication administered onsite ondansetron (ZOFRAN) injection 4 mg [id number] 09/24/2019 04:20:5 8 PM EDT 4 mg Intravenous active 4 mg, In travenous, Every 6 hours PRN, nausea, vomiting, Starting 09/24/19 at 1620, Post-op
If no response in 15-30 minutes, give metoclopramide 10 mg IV x 1 then q6h prn N/V.
[facility] Medication administered onsite Bisacodyl 10 MG Rectal Suppository bisacodyl (DULCOLAX ) suppository 10 mg bisacodyl (DULCOLAX) suppository 10 mg 09/24/2019 04:20:57 PM EDT 10 mg Rectal active 10 mg, Rectal, Daily PRN, constipation, Starting Tue09/24/19 at 1620, Post-op
If polyethylene glycol not effective.
[facility] Medication administered onsite Aluminum Hydroxide 64 MG/ML Oral Suspens ion aluminum hydroxide (ALTERNAGEL) suspension 15 mL aluminum hydroxide (ALTERNAGEL) suspension 15 mL 09/23 04:20:57 PM EDT 15 mL Oral active 15 mL, Oral, Every 4 hours PRN, for indigestion/ gas, Starting Tue09/24/19 at 1620, Post-op [facility] Medication administered onsite Albuterol 0.83 MG/ML Inhalant Solution a lbuterol (PROVENTIL) nebulizer solution 2.5 mg albuterol (PROVENTIL) nebulizer solution 2.5 mg 2019 04:20:57 PM EDT 2.5 mg active 2.5 mg, Nebulization, RT every 2 hours as needed, wheezing, shortness of breath, Starting Tue09/24/19 at 1620, Post-op [facility] Medication administered onsite Warfarin Sodium 2 MG Oral Tablet warfarin (COUMADIN) t ablet 3 mg warfarin (COUMADIN) tablet 3 mg 09/23/2019 05:00:00 PM EDT 3 mg Oral completed 3 mg, Oral, WAR17, First dose on 09/23/19 at 1700, For 1 dose
For administration and preparation considerations, refer to Hazardous Drugs in the Workplace Policy on Intranet.
[facility] Medication administered onsite furosemide (LASIX) infusion 500 mg/50 ML 09/23/2019 10 :00:00 AM EDT 2.5 mg/h Intravenous aborted 2.5 mg/h r (0.25 mL/hr), Intravenous, Continuous, Starting 09/23/19 at 1000, Until Tu09/25/19 at 1106, at 0.25 mL/hr [facility] Medication administered onsite furosemide (LASIX) injection 40 mg [id number] 09/23/2019 09:00:00 AM EDT 40 mg Intravenous completed 40 mg, I ntravenous, Once, [place] 09/23/19 at 0900, For 1 dose [facility] Medication administered onsite albumin human 25 % bottle 12.5 g [id number] 09/23/2019 09:00:00 A M EDT 12.5 g Intravenous completed Systolic Hypotension 12.5 g, Intravenous, Once, Indications: Systolic Hypotension, [place] 09/23/19 at 0900, For 1 dose [facility] Systolic Hypotension Medication administered onsite furosemide (LASIX) injection 20 mg [id number] 09/22/2019 06:00:00 PM EDT 20 mg Intravenous completed 20 mg, I ntravenous, Once, [facility] 09/22/19 at 1800, For 1 dose [facility] Medication administered onsite Warfarin Sodium 2 MG Oral Tablet warfarin (COUMADIN) t ablet 2 mg warfarin (COUMADIN) tablet 2 mg 09/22/2019 05:00:00 PM EDT 2 mg Oral completed 2 mg, Oral, WAR17, First dose on [facility] 09/22/19 at 1700, For 1 dose
For administration and preparation considerations, refer to Hazardous Drugs in the Workplace Policy on Intranet.
[facility] Medication administered onsite atorvastatin 80 MG Oral Tablet atorvastatin (LIPITOR) tablet 80 mg atorvastatin (LIPITOR) tablet 80 mg 09/22/2019 09:00:00 AM EDT 80 mg Oral active 80 mg, Oral, Daily, First dose on 09/22/19 at 0900 [facility] Medication administered onsite POLYETHYLENE GLYCOL 3350 142 MG/ML Oral Solution polyethylene glycol (GLYCOLAX) packet 17 g polyethylene glycol (GLYCOLAX) packet 17 g 09/22/2019 09:00:00 AM EDT 17 g Oral aborted 17 g, Or al, Daily, First dose on 09/22/19 at 0900, PACU & Post-op
Starting 2nd POD, give every day until result
[facility] Medication administered onsite Metoprolol Tartrate 25 MG Oral Tablet me toprolol tartrate (LOPRESSOR) tablet 12.5 mg metoprolol tartrate (LOPRESSOR) tablet 12.5 mg 09:00:00 AM EDT 12.5 mg Oral aborted 12.5 mg, Oral, 2 times daily, First dose on 09/22/19 at 0900
Hold for SBP < 100 or HR < 60.
[facility] Medication administered onsite furosemide (LASIX) injection 20 mg [id number] 09/22/2019 08:00:00 AM EDT 20 mg Intravenous completed 20 mg, I ntravenous, Once, 09/22/19 at 0800, For 1 dose [facility] Medication administered onsite ferrous gluconate 324 MG Oral Tablet ferrous gluconate (FERGON) tablet 324 mg ferrous gluconate (FERGON) tablet 324 mg 09/22/2019 07:00:00 AM EDT 324 mg Oral aborted 324 mg, Oral, 2 times daily before meals, First dose on 09/22/19 at 0700, PACU & Post-op
Start POD #2
[facility] Medication administered onsite albumin human 5 % bottle 25 g [id number] 09/21/2019 07:00:00 PM EDT 25 g Intravenous completed Hypotension 25 g, Intrav enous, Once, Indications: Hypotension, Tue09/21/19 at 1900, For 1 dose [facility] Hypotension Medication administered onsite Warfarin Sodium 2 MG Oral Tablet warfarin (COUMADIN) t ablet 2 mg warfarin (COUMADIN) tablet 2 mg 09/21/2019 05:00:00 PM EDT 2 mg Oral completed 2 mg, Oral, WAR17, First dose on Tue09/21/19 at 1700, For 1 dose
For administration and preparation considerations, refer to Hazardous Drugs in the Workplace Policy on Intranet.
[facility] Medication administered onsite albumin human 25 % bottle 12.5 g [id number] 09/21/2019 05:00:00 P M EDT 12.5 g Intravenous completed Hypotension 12.5 g , Intravenous, Once, Indications: Hypotension, Tue09/21/19 at 1700, For 1 dose [facility] Hypotension Medication administered onsite albumin human 5 % bottle 12.5 g [id number] 09/21/2019 05:00:00 PM EDT 12.5 g Intravenous completed Hypotension 12.5 g, Intr avenous, Once, Indications: Hypotension, Tue09/21/19 at 1700, For 1 dose [facility] Hypotension Medication administered onsite Mupirocin 0.02 MG/MG Topical Ointment mupirocin (BACTR OBAN) 2 % ointment mupirocin (BACTROBAN) 2 % ointment 09/21/2019 02:00:00 PM EDT Nasal completed Nasal, 2 times daily , 8 doses, First dose on Tue09/21/19 at 1400, Last dose on Tue09/24/19 at 2100 [facility] Medication administered onsite dorzolamide-timolol Mal PF (COSOPT) 22.3-6.8 MG/ML oph thalmic solution 1 drop [id number] 09/21/2019 02:00:00 PM EDT 1 [drp] active 1 drop, Both Eyes, 2 times daily, First dose on Tue09/21/19 at 1400 [facility] Medication administered onsite Aspirin 81 MG Delayed Release Oral Tablet aspirin EC t ablet 81 mg aspirin EC tablet 81 mg 09/21/2019 09:00:00 AM EDT 81 mg Oral activ e 81 mg, Oral, Daily, First dose on Tue09/21/19 at 0900
Hold for platelet count less than 90,000.If OG tube in place, give non-enteric coated aspirin.
[facility] Medication administered onsite Tamsulosin hydrochloride 0.4 MG Oral Cap teresa tamsulosin (FLOMAX) 24 hr capsule 0.4 mg tamsulosin (FLOMAX) 24 hr capsule 0.4 mg 09/21/2019 09:00:00 AM EDT 0.4 mg Oral active 0.4 mg, Oral, Daily, [address]ir st dose on Tue09/21/19 at 0900 [facility] Medication administered onsite Folic Acid 1 MG Oral Tablet folic acid (FOLVITE) table t 1 mg folic acid (FOLVITE) tablet 1 mg 09/21/2019 09:00:00 AM EDT 1 mg Oral aborted 1 mg, Oral, Daily, First dose on Tue09/21/19 at 0900, PACU & Post-op
Give PO/OG.Start first POD
[facility] Medication administered onsite Docusate Sodium 100 MG Oral Capsule docusate sodium (C OLACE) capsule 100 mg docusate sodium (COLACE) capsule 100 mg 09/21/2019 09:00:00 AM EDT 100 mg Oral aborted 100 mg, Oral, Daily, First dose on Tue09/21/19 at 0900, PACU & Post-op
Give PO/OG.Start first POD
[facility] Medication administered onsite Ascorbic Acid 500 MG Oral Tablet ascorbic acid (VITAMI N C) tablet 500 mg ascorbic acid (VITAMIN C) tablet 500 mg 09/21/2019 09:00:00 AM EDT 500 mg Oral aborted 500 mg, Oral, Daily, First dose on Tue09/21/19 at 0900, PACU & Post-op
Give PO/OG.Start first POD.
[facility] Medication administered onsite Insulin Lispro 100 UNT/ML Injectable Julienne ution insulin lispro (HumaLOG) injection 1-6 Units insulin lispro (HumaLOG) injection 1-6 Units 0 08:00:00 AM EDT Subcutaneous aborted 1-6 Units, Subcutaneous, MEALSS, First dose on Tue09/21/19 at 0800, Post IV Insulin - Critical Care
Frail 3 units Nutritional and Correction Insulin ScaleBlood Glucose (mg/dl) <70 start hypo glycemiaprotocolGlucoseEats >=50% Eats <50%Eats Nothing (mg/dl) of meal of mealor NPO70- 1202 units 1 units 0 -4773 units 2 units 0 [id number]- 2204 units 2 units 1 [id number] units 3 units 1 - 3205 units 3 units 2 [id number] units 4 units 2 - 4206 units 4 units 3 units>420 call MD6 units 5 units 3 unitsTest glucose wi thin 30 minutes of insulin administration.Administer insulin within 15 minutes (before or after) of the patient starting to eat.For patients that are NPO, use theNPO (correction) scale to cover POC glucose at 08:00, 12:00, 17:00.
[facility] Medication administered onsite Albuterol 0.833 MG/ML / Ipratropium Brom leon 0.167 MG/ML Inhalant Solution ipratropium-albuterol (DUO-NEB) 0.5-2.5 mg/mL nebulizer solution 3 mL ipratropium-albuterol (DUO-NEB) 0.5-2.5 mg/mL nebulizer solution 3 mL 09/21/2019 08:00:00 AM EDT 3 mL Inhalation active 3 mL, Inhalation, 3 times daily, First dose on Tue09/21/19 at 0800 [facility] Medication administered onsite albumin human 5 % bottle 12.5 g [id number] 09/21/2019 07:00:00 AM EDT 12.5 g Intravenous completed Hypotension 12.5 g, Intr avenous, Once, Indications: Hypotension, Tue09/21/19 at 0700, For 1 dose [facility] Hypotension Medication administered onsite Patient on Coumadin during hospitalizati on. (To order Coumadin on discharge click the don t prescribe button and go to new orders on discharge section. Coumadin can be ordered there. Alternatively, reconcile the pre admission Coumadin dose if it appears on the list below) 09/21/2019 06:27:50 AM EDT 1 {each} active 1 each, Miscellaneous, Daily Coumadin Notification (1000), Starting Tue09/21/19 at 0627, Until Discontinued
Indication for Warfarin: Atrial Fibrillation
Target INR: 2 to 3 [facility] Medication administered onsite albumin human 5 % bottle [id number] 09/21/2019 06:17:11 AM EDT completed Starting Tue09/21/19 at 0617, For 1 dose
Beny Bacon: cabinet override
[facility] Medication administered onsite albumin human 5 % bottle 12.5 g [id number] 09/21/2019 06:00:00 AM EDT 12.5 g Intravenous completed Hypotension 12.5 g, Intr avenous, Once, Indications: Hypotension, Tue09/21/19 at 0600, For 1 dose [facility] Hypotension Medication administered onsite normal saline flush 0.9 % injection 3 mL [id number] 09/21/2019 06:00:00 AM EDT 3 mL Intravenous aborted 3 mL , Intravenous, PROTOCOL, First dose on Tue09/21/19 at 0600, PACU & Post-op
May convert to saline lock with minimally 600 ml PO intake on first POD; prior to transfer
[facility] Medication administered onsite heparin (porcine) injection 5,000 Units [id number] 09/21/19 06:00:00 AM EDT 5000 U Subcutaneous aborted 5,000 Units , Subcutaneous, Every 8 hours (scheduled), First dose on Tue09/21/19 at 0600, PACU & Post-op
Start first POD. Hold for platelet count less than 90,000, INR greater than or equal to 1.7 if receiving coumadin therapy.
[facility] Medication administered onsite cefazolin (ANCEF) injection 2 g 09/21/2019 01:00:00 AM EDT 2 g Intravenous completed Perioperative Pharmacoprophylaxis 2 g, Intravenous, Administer over 6 Minutes, Every 8 hours (relative), First dose on Tue09/21/19 at 0100, For 5 doses, PACU & Post-op
Not to exceed 48 hours from time of closure.Time of closure = 1920RN may administer IV push or infuse this medication through syringe adapter set ref [id number]. Flush line after use
[facility] Perioperative Pharmacoprophylaxis Medication administered onsite milrinone (PRIMACOR) infusion 20 mg/100 mL [id number] 09/20/2019 10:00:00 PM EDT 0.125 ug/kg/min Intravenous aborted 0.125 mcg/kg/min 101.2 kg (3.795 mL/hr, rounded to 3.8 mL/hr), Intravenous, at 3.8 mL/hr, Continuous, Starting Leslie 09/20/19 at 2200
This is a "Triggered Filled Infusion" and is automatically sent based on the current rate documented in the flow sheets.Infuse this medication only through single port tubing (SmartSite Infusion Set ref [id number]). Medication and tubing is to be discarded if infusion off for 4 hours.
[facility] Medication administered onsite Famotidine 20 MG Oral Tablet famotidine (PEPCID) table t 40 mg famotidine (PEPCID) tablet 40 mg 09/20/2019 09:00:00 PM EDT 40 mg Oral active 40 mg, Oral, Daily, First dose on Leslie 09/20/19 at 2100
Start after extubation
[facility] Medication administered onsite norepinephrine bitartrate (LEVOPHED) 4 m g in sodium chloride (NS) 0.9 % 250 mL infusion 09/20/2019 09:00:00 PM EDT Intravenous ab orted PACU & Post-op, 0-6 mcg/min (0-22.5 mL/hr), Intravenous, Continuous, Starting Leslie 09/20/19 at 2100, Until 09/24/19 at 1621, at 0-22.5 mL/hr [facility] Medication administered onsite atorvastatin 20 MG Oral Tablet atorvastatin (LIPITOR) tablet 20 mg atorvastatin (LIPITOR) tablet 20 mg 09/20/2019 09:00:00 PM EDT 20 mg Oral aborted 20 mg, Oral, Daily, First dose on Leslie 09/20/19 at 2100 [facility] Medication administered onsite propofol (DIPRIVAN) infusion 10 mg/mL [id number] 09/20/2019 09:00 :00 PM EDT Intravenous completed 0-25 mcg /kg/min 101.2 kg (0-15.18 mL/hr, rounded to 0-15.2 mL/hr), Intravenous, at 0-15.2 mL/hr, Continuous, Starting Leslie 09/20/19 at 2100, For 2 hours, Post-op
Titrate to maintain target RASS score 0 to -2May give IV bolus of 0.5 mg/kg over 1 minute to maintain target sedation score. If needed may repeat x 1 in 10 minutes prn.PROPOFOL OFF 2 HOURS AFTER ADMISSION TO CVICU
[facility] Medication administered onsite Dexmedetomidine HCl 400 mcg in sodium chloride (NS) 0.9 % 10 0 mL infusion 09/20/2019 09:00:00 PM EDT Intravenous aborted Post-op, 0.2-0.7 mcg/kg/hr 101.2 kg (5.06-17.71 mL/hr, rounded to 5.1-17.7 mL/hr), Intravenous, Continuous, Starting Leslie 09/20/19 at 2100, Until Tue09/24/19 at 1621, at 5.1-17.7 mL/hr [facility] Medication administered onsite Magnesium Chloride 0.22835 MEQ/ML / Pota ssium Chloride 0.0497 MEQ/ML / Sodium Acetate 0.0163 MEQ/ML / Sodium Chloride 0.0899 MEQ/ML / Sodium gluconate 5.02 MG/ML Injectable Solution [Normosol-R] electrolyte-R (NORMOSOL-R/PLASMALYTE-R) solution electrolyte-R (NORMOSOL-R/PLASMALYTE-R) solution 09/19 09:00:00 PM EDT Intravenous aborted at 0 -80 mL/hr, Intravenous, Continuous, Starting Leslie 09/20/19 at 2100, Post-op
From 0600 first post-op day, adjust IV and PO intake so that total fluid intake is 2 liters in 24 hours
[facility] Medication administered onsite Vitamin B 12 1 MG/ML Injectable Solution cyanocobalami n injection 1,000 mcg cyanocobalamin injection 1,000 mcg 09/20/2019 09:00:00 PM EDT 10 00 ug Subcutaneous completed 1,000 mcg, S ubcutaneous, Once, Leslie 09/20/19 at 2100, For 1 dose, PACU & Post-op
DEEP SUBCUTANEOUS
[facility] Medication administered onsite Famotidine (PEPCID) injection 20 mg [id number] 09/20/2019 09:00:0 0 PM EDT 20 mg Intravenous aborted 20 mg, I ntravenous, Every 12 hours (scheduled), First dose on Leslie 09/20/19 at 2100, PACU & Post-op
D/C after extubation
[facility] Medication administered onsite ondansetron (ZOFRAN) injection 4 mg [id number] 09/20/2019 07:46:1 7 PM EDT 4 mg Intravenous aborted 4 mg, In travenous, Every 6 hours PRN, nausea, vomiting, Starting Leslie 09/20/19 at 1946, PACU & Post-op [facility] Medication administered onsite potassium chloride 20 mEq in 50 mL IVPB (ICU/PCU Only) [id number] 09/20/2019 07:46:17 PM EDT 20 meq Intravenous aborted 20 mEq, Intravenous, Administer over 60 Minutes, As needed, other, Starting Leslie 09/20/19 at 1946, PACU & Post-op
For Serum K+ 3.5 to 3.8, give 20 meq for 2 doses, each dose over an hour through a central lineFor Serum K+ 3.9 to 4.1, give 20 meq for 1 dose, over 1 hour through a central line
[facility] Medication administered onsite HYDROmorphone (DILAUDID) injection 0.2 mg [id number] 09/20/2019 07:46:16 PM EDT 0.2 mg Intravenous aborted 0.2 mg, Intravenous, Every 5 min PRN, severe pain (7-10), Starting Leslie 09/20/19 at 1946, For 7 days
Indicated for patients greater than 75 years of age and/or frail. FOR EXTUBATED PATIENTS ONLY. DISCONTINUE 6 HOURS POST EXTUBATION.Maximum dose 1 mg.
[facility] Medication administered onsite HYDROmorphone (DILAUDID) injection 0.2 mg [id number] 09/20/2019 07:46:16 PM EDT 0.2 mg Intravenous aborted 0.2 mg, Intravenous, Every 10 min PRN, severe pain (7-10), Starting Leslie 09/20/19 at 1946, For 7 days, PACU & Post- op
Indicated for patients greater than 75 years of age and/or frail.FOR INTUBATED PATIENTS ONLY. DISCONTINUE POST EXTUBATION.Maximum dose 2 mg.
[facility] Medication administered onsite fentaNYL Citrate (PF) (SUBLIMAZE) injection 25 mcg [id number] 09/20/2019 07:46:16 PM EDT 25 ug Intravenous aborted 25 mcg, Intravenous, Every 10 min PRN, moderate pain (4-6), Starting Leslie 09/20/19 at 1946, For 7 days, PACU & Post-op
Maximum 10 doses in a 24-hour period. DISCONTINUE 6 HOURS POST EXTUBATION
[facility] Medication administered onsite heparin (porcine) injection 5,000 Units [id number] 09/20/19 20 12:00:00 PM EDT 5000 U Subcutaneous completed Coronary art gucci disease of ruby artery of ruby heart with stable angina pectoris 5,000 Units, Subcutaneous, Once, Leslie 09/20/19 at 1200, For 1 dose, Pre-op
Once on admission. Hold for platelets < 90,000.
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
Hold for HR < 60, or SBP <100
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 [facility] albuterol COMMON CANISTER (PROVENTIL HFA;VENTOLIN HFA) inhaler 2 puff [id number] 09/17/2019 11:00:00 AM EDT 2 {puff} Inhalation completed 2 puff, Inhalation, Once, 09/17/19 at 1100, For 1 dose
Please send a spacer home with patient if discharged with a metered dose inhalerCleaning/Decontamination Process for MDI used for Common CanisterThis will be managed by Respiratory TherapyBefore and after EACH USE: 1) Separate the canister from the plastic mouthpiece. 2) Using sterile 70% alcohol pads, thoroughly wipe all components of the MDI with enough to wet the entire MDI and allow to air dry. 3) After thorough drying, place the canister and mouthpiece back together.4) Place MDI in a clean plastic bag.This process SHALL be repeated before and after each use.
[facility] Medication administered onsite iopamidol (ISOVUE-370) 76 % [id number] 08/23/2019 03:21:06 PM EDT active As needed, Starting Leslie 08/23/19 at 1521, Intra-Procedu re [facility] Medication administered onsite 4 ML Verapamil hydrochloride 2.5 MG/ML Injection verap fern (ISOPTIN) injection verapamil (ISOPTIN) injection 08/23/2019 03:12:23 PM EDT active As needed, Starting Leslie 08/23/19 at 1512, Intra-Procedure [facility] Medication administered onsite 1 ML heparin sodium, porcine 1000 UNT/ML Injection hep tamia (porcine) injection heparin (porcine) injection 08/23/2019 03:12:04 PM EDT active As needed, Starting Leslie 08/23/19 at 1512, Intra-Procedure [facility] Medication administered onsite 2 ML Midazolam 1 MG/ML Injection midazolam (VERSED) in jection midazolam (VERSED) injection 08/23/2019 03:11:02 PM EDT active As needed, Starting Leslie 08/23/19 at 1511, Intra-Procedure [facility] Medication administered onsite fentaNYL Citrate (PF) (SUBLIMAZE) injection [id number] 08/23/2019 03:10:49 PM EDT active As neede d, Starting Leslie 08/23/19 at 1510, Intra-Procedure [facility] Medication administered onsite normal saline flush 0.9 % injection 3 mL [id number] 08/23/2019 02:00:00 PM EDT 3 mL Intravenous active 3 mL , Intravenous, Every 8 hours (scheduled), First dose on Leslie 08/23/19 at 1400, Pre-op
Rapid push positive pressure flushing shall be performed with a 10 cc normal saline syringe to check the PATENCY of a PIV site prior to any infusion therapy initiation unless resistance is met.
[facility] Medication administered onsite normal saline flush 0.9 % injection 3 mL [id number] 08/23/2019 02:00:00 PM EDT 3 mL Intravenous active 3 mL , Intravenous, PROTOCOL, First dose on Leslie 08/23/19 at 1400, Pre-op
flush per protocol, D/C Main IV fluid if appropriate
[facility] Medication administered onsite Diphenhydramine Hydrochloride 50 MG Oral Capsule diphenhydrAMINE (BENADRYL) capsule 50 mg diphenhydrAMINE (BENADRYL) capsule 50 mg 08/23/2019 02 :00:00 PM EDT 50 mg Oral completed 50 mg, Oral, bilingual call center representative, Leslie 08/23/19 at 1400, For 1 dose, Pre-op [facility] Medication administered onsite sodium chloride 0.9% (NS) infusion [id number] 08/23/2019 02:00:00 PM EDT 100 mL/h Intravenous active at 100 m L/hr, 100 mL/hr, Intravenous, Continuous, Starting Leslie 08/23/19 at 1400, Pre-op
Start two hours prior to scheduled start time
[facility] Medication administered onsite Acetaminophen 325 MG Oral Tablet acetaminophen (TYLENO L) 325 MG tablet 650 mg acetaminophen (TYLENOL) 325 MG tablet 650 mg 08/23/2019 01:38:40 PM EDT 650 mg Oral active 650 mg, Or al, Every 4 hours PRN, headaches, and non cardiac pain, Starting Leslie 08/23/19 at 1338, Pre-op
"Maximum dose of acetaminophen is 4,000 mg from all sources in 24 hours."
[facility] Medication administered onsite clopidogrel 75 MG Oral Tablet [Plavix] Plavix 08/07/2019 12:00:00 AM EDT ORAL completed [facility] ([facility]) gemcitabine (GEMZAR) 2,000 mg in sodium chloride 0.9 % 100 mL (20 mg/mL) intravesical solution 06/11/2019 10:30:00 AM EDT 2000 mg Intrave sical active [facility] Oxybutynin chloride 5 MG Oral Tablet Oxy butynin Chloride 5 MG Oral Tablet (DITROPAN) Oxybutynin Chloride 5 MG Oral Tablet (DITROPAN) 2019 12:00:00 AM EDT active Take one by mouth the evening before treatment and one by mouth the morning of treatment [facility] gemcitabine (GEMZAR) 2,000 mg in sodium chloride 0.9 % 100 mL (20 mg/mL) intravesical solution 05/07/2019 09:30:00 AM EDT 2000 mg Intrave sical active [facility] Tamsulosin hydrochloride 0.4 MG Oral Cap teresa Tamsulosin HCl 0.4 MG Oral Capsule (FLOMAX) Tamsulosin HCl 0.4 MG Oral Capsule (FLOMAX) 04/27/2019 12:00 :00 AM EST 0.4 mg Oral active Take 1 capsule b y mouth Two Times Daily [facility] iohexol (OMNIPAQUE) 300 MG/ML contrast injection 100 mL [id number] 04/20/2019 10:30:00 AM EST 100 mL Intravenous completed 100 mL, Intravenous, 1 TIME IMAGING, Tue04/20/19 at 1030, For 1 dose, Imaging Protocol [facility] Medication administered onsite iohexol (OMNIPAQUE) 240 MG/ML contrast 20 mL [id number] 08:15:00 AM EST 20 mL Oral completed 20 mL, Oral, 1 TIME IMAGING, Tue04/20/19 at 0815, For 1 dose, Imaging Protocol
Dilute before administering
[facility] Medication administered onsite iohexol (OMNIPAQUE) 240 MG/ML contrast 20 mL [id number] 08:11:14 AM EST 20 mL Oral active 20 mL, Oral, IMG once PRN, Contrast, Starting Tue04/20/19 at 0811, For 1 day, Imaging Protocol
Dilute before administering
[facility] Medication administered onsite Phenazopyridine hydrochloride 100 MG Ora l Tablet Phenazopyridine HCl 100 MG Oral Tablet (PYRIDIUM) Phenazopyridine HCl 100 MG Oral Tablet (PYRIDIUM) 07/2019 12:00:00 AM EST 100 mg Oral active Take 1 tablet by mouth Three times daily as needed for Pain [facility] Azelastine HCl 137 MCG/SPRAY Azelastine HCl 137 MCG/SPRAY 12:00:00 AM EST active 1 puff in each no stril eCW1 ([facility]) Azelastine HCl 137 MCG/SPRAY Azelastine HCl 137 MCG/SPRAY 12:00:00 AM EST active 1 puff in each no stril eCW1 ([facility]) apixaban 5 MG Oral Tablet Apixaban (ELIQUIS) 5 MG TABS tablet Apixaban (ELIQUIS) 5 MG TABS tablet 5 mg Oral aborted Take 5 mg by mouth 2 (two) times a day [facility] clopidogrel 75 MG Oral Tablet clopidogrel (PLAVIX) 75 MG tablet clopidogrel (PLAVIX) 75 MG tablet 75 mg Oral aborted Ta ke 75 mg by mouth daily [facility] Warfarin Sodium 5 MG Oral Tablet warfarin (COUMADIN) 5 MG tablet warfarin (COUMADIN) 5 MG tablet 5 mg Oral aborted T sergio 5 mg by mouth nightly [facility] Enalapril Maleate 5 MG Oral Tablet enalapril (VASOTEC) 5 MG tablet enalapril (VASOTEC) 5 MG tablet 5 mg Oral aborted Ta ke 5 mg by mouth [facility] Captopril 25 MG Oral Tablet captopril (CAPOTEN) 25 MG tablet captopril (CAPOTEN) 25 MG tablet 25 mg Oral aborted Ta ke 25 mg by mouth 2 (two) times a day [facility] DORZOLAMIDE HCL-TIMOLOL MAL OP 1 [drp] aborted Administer 1 drop to both eyes 2 (two) times a day [facility] Nitroglycerin 0.4 MG Sublingual Tablet n itroglycerin (NITROSTAT) 0.4 MG SL tablet nitroglycerin (NITROSTAT) 0.4 MG SL tablet 0.4 mg [address]li ngual aborted Place 0.4 mg under t he tongue every 5 (five) minutes as needed for chest pain [facility] Insurance Providers Payer name Policy type / Coverage type Policy ID Covered democrat ID Covered democrat's relationship to floyd Policy Floyd Plan Information MEDICARE [id number] SP [id number] [facility] OPTIONS [id number] SP [id number] MEDICARE A [id number] Self [id number] AARP U [id number] Self [id number] [facility] [id number] Gayathri [id number] MEDICARE [id number] Gayathri [id number] MEDICARE [id number] S [id number] MEDICARE C [id number] S [id number] AARP O [id number] S [id number] INSURANCE COVID-19 [id number] [id number] [facility] [id number] MEDICARE [id number] INSURANCE COVID-19 COVID Gayathri C OVID [facility] OPTIONS -O/P [id number] 18 [id number] MEDICARE PART A -O/P [id number] 18 [id number] INSURANCE COVID-19 COVID Gayathri C OVID INSURANCE COVID-19 COVID Gayathri C OVID [facility] [id number] Gayathri [id number] MEDICARE [id number] Gayathri [id number] K28 "" MDA None INSURANCE COVID-19 [id number] [id number] [facility] [id number] Gayathri [id number] [facility] Healthcare Options Medigap Part B [id number] Self [id number] Medicare (Part B) Medicare Primary [id number] Self [id number] [place] Med[employer] Part B [id number] Family Dependent [id number] [place] Med[employer]ap Part B [id number] Family Dependent [id number] [facility] [id number] Self [id number] Medicare (Part B) Medicare Primary [id number] Self [id number] Medicare Dme Medigap Part B [id number] Self [id number] Medicare Medicare Primary [id number] Self [id number] [facility] [id number] Self [id number] ANSI-Commercial [id number] ANSI-Medicare Part B [id number] [facility] [facility] [id number] Self [id number] Medicare (Part B) Medicare Primary [id number] Self [id number] [employer] Options Medigap Part B [id number] Self [id number] Medicare (Part B) Medicare Primary [id number] Self [id number] ANSI-Medicare Part B [id number] ANSI-Commercial [id number] MEDICARE [id number] SP [id number] A ANSI-Commercial [id number] ANSI-Medicare Part B [id number] Medicare [facility] Part B [id number] Self [id number] Medicare [facility] Medicare Primary [id number] Self [id number] ANSI-Medicare Part B [id number] ANSI-Commercial [id number] ANSI-Commercial [id number] ANSI-Medicare Part B [id number] [employer] Insurance [facility] Part B [id number] Self [id number] Medicare Medicare Primary [id number] Self [id number] ANSI-Medicare Part B [id number] ANSI-Commercial [id number] ANSI-Commercial [id number] ANSI-Medicare Part B [id number] ANSI-Medicare Part B [id number] ANSI-Commercial [id number] ANSI-Medicare Part B [id number] ANSI-Commercial [id number] ANSI-Medicare Part B [id number] ANSI-Commercial [id number] ANSI-Medicare Part B [id number] ANSI-Commercial [id number] ANSI-Medicare Part B [id number] ANSI-Commercial [id number] [facility] [id number] Self [id number] Medicare (Part B) Medicare Primary [id number] Self [id number] ANSI-Commercial [id number] ANSI-Medicare Part B [id number] MEDICARE A [id number] Self [id number] A ANSI-Commercial [id number] ANSI-Medicare Part B [id number] ANSI-Commercial [id number] ANSI-Medicare Part B [id number] [facility] [id number] Self [id number] Medicare (Part B) Medicare Primary [id number] Self [id number] [facility] [id number] Self [id number] Medicare (Part B) Medicare Primary [id number] Self [id number] [employer] Options Medigap Part B [id number] Self [id number] Medicare (Part B) Medicare Primary [id number] Self [id number] [employer] Options Medigap Part B [id number] Self [id number] Medicare (Part B) Medicare Primary [id number] Self [id number] [employer] Medigap Part B [id number] Self [id number] Medicare Medicare Primary [id number] Self [id number] [employer] Options Medigap Part B [id number] Self [id number] Medicare (Part B) Medicare Primary [id number] Self [id number] AARP U [id number] Self [id number] [employer] OPTIONS [id number] SP [id number] MEDICARE C [id number] S [id number] A [employer] HE[employer] CARE OPTIONS [id number] SP [id number] MEDICARE [id number] SP [id number] A [employer] HE[employer] CARE OPTIONS [id number] SP [id number] Medicare (Part B) Medicare Primary Self [place] Med[employer] Part B Family Dependent [place] Med[employer] Part B Family Dependent [employer] Options Medigap Part B F Self F [employer] Options Medigap Part B Self [place] Primary Self [employer] Medigap Part B Self [place] Primary Self Medicare Medicare Primary Self [employer] [id number] [place] [id number] [employer] PPO S [id number] S [id number] A Problems, Conditions, and Diagnoses Code Display Name Description Problem Type Effective Dates Data Source(s) 747137439 History of coronary artery bypass grafti ng History of coronary artery bypass grafting Problem 01/14/2020 12:00:00 AM EST [facility] [place] [id number] Essential hypertension Essential hypertension Problem 12/24/2019 12:00:00 AM EDT [facility] ([facility] [id number] Benign prostatic hypertrophy without out flow obstruction Benign prostatic hypertrophy without outflow obstruction Problem 11/29 12:00:00 AM EDT [facility] ([facility] [id number] Hyperlipidemia Hyperlipidemia Problem 12/24/2019 12:00: 00 AM EDT [facility] ([facility] [id number] Coronary atherosclerosis Coronary atherosclerosis Prob kal 12/24/2019 12:00:00 AM EDT [place] ([facility] ) T82.110A Pacemaker lead failure, initial encounte r Pacemaker lead failure, initial encounter [id number] 10/22/2019 12:00:00 AM EDT [facility] R06.02 Shortness of breath Shortness of breath [id number] 09/29/2019 12:00:00 AM EDT [facility] Z97.2 Wears partial dentures Wears partial dentures [id number] 09/17/2019 12:00:00 AM EDT [facility] I49.5 SSS (sick sinus syndrome) SSS (sick sinus syndrome) [id number] 09/17/2019 12:00:00 AM EDT [facility] I49.3 PVC's (premature ventricular contraction s) PVC's (premature ventricular contractions) [id number] 09/17/2019 12:00:00 AM EDT [facility] R94.31 Abnormal EKG Abnormal EKG [id number] 09/17/2019 12:00:00 A M EDT [facility] I21.9 Myocardial infarction Myocardial infarction [id number] 09/17/2019 12:00:00 AM EDT [facility] N40.0 BPH (benign prostatic hyperplasia) BPH (benign p rostatic hyperplasia) [id number] 09/17/2019 12:00:00 AM EDT [facility] C80.1 Cancer Cancer [id number] 09/17/2019 12:00:00 AM ED T [facility] H91.90 Hearing loss Hearing loss [id number] 09/17/2019 12:00:00 A M EDT [facility] H40.9 Glaucoma Glaucoma [id number] 09/17/2019 12:00:00 AM ED T [facility] K57.90 Diverticulosis Diverticulosis [id number] 09/17/2019 12:00: 00 AM EDT [facility] K80.20 Cholelithiasis Cholelithiasis [id number] 09/17/2019 12:00: 00 AM EDT [facility] I42.9 Cardiomyopathy Cardiomyopathy [id number] 09/17/2019 12:00: 00 AM EDT [facility] I25.10 Coronary artery disease Coronary artery disease [id number] 01 09/17/2019 12:00:00 AM EDT [facility] 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 L anabell term current use of anticoagulant [id number] 09/17/2019 12:00:00 AM EDT [facility] I48.92 Atrial flutter Atrial flutter [id number] 09/17/2019 12:00: 00 AM EDT [facility] I48.91 Atrial fibrillation Atrial fibrillation [id number] 09/17/2019 12:00:00 AM EDT [facility] I10 Hypertension Hypertension [id number] 09/17/2019 12:00:00 A M EDT [facility] I25.118 Coronary artery disease of n ative artery of ruby heart with stable angina pectoris 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 [id number] 08/24/2019 12:00:00 AM EDT [facility] [id number] Permanent atrial fibrillation Permanent atrial fibrill ation Problem 07/11/2019 12:00:00 AM EDT [facility] ([facility]) [id number] Cardiac pacemaker in situ Cardiac pacemaker in situ Pr oblem 07/11/2019 12:00:00 AM EDT [facility] ([facility]) [id number] Sinus node dysfunction Sinus node dysfunction Problem 07/11/2019 12:00:00 AM EDT [facility] ([facility]) Z68.32 [id number] BMI 32.0-32.9,adult Problem 03/05/2019 12:00 :00 AM EST eCW1 ([facility]) R31.0 Gross hematuria Gross hematuria Diagnosis 03/27/2020 10:4 0:[address] [facility] R39.9 Unspecified symptoms and signs involving the genitourinary system Unspecified symptoms and signs involving the genitourinary system Diagnosis 03/27/2020 10:02:[address] [facility] bladder cancer bladder cancer Diagnosis 01/16/2020 08:06: [address] [facility] Z20.828 Contact with and (suspected) exposure to other viral communicable diseases CONTACT W AND EXPOSURE TO OTH VIRAL COMMUNICABLE D Diagnosis 01/11/2020 06:30:00 AM [facility] C67.9 Malignant neoplasm of bladder, unspecifi ed MALIGNANT NEOPLASM OF BLADDER, UNSPECIFI Diagnosis 01/11/2020 06:30:00 AM [facility] Z01.812 Encounter for preprocedural laboratory e xamination ENCOUNTER FOR PREPROCEDURAL LABORATORY EXAMINATION Diagnosis 01/11/2020 06:30:00 AM [facility] I48.91 Unspecified atrial fibrillation Unspecified atri al fibrillation Diagnosis 10/16/2019 02:27:46 PM EDT [facility] T82.110A Breakdown (mechanical) of cardiac electr ode, initial encounter Breakdown (mechanical) of cardiac electr Diagnosis 10/16/2019 02:27:46 PM EDT [facility] J90 Pleural effusion, not elsewhere classifi ed Pleural effusion, not elsewhere classifi Diagnosis 10/16/2019 10:00:[address] [facility] I48.91 Unspecified atrial fibrillation Unspecified atri al fibrillation Diagnosis 10/16/2019 10:00:29 AM EDT [facility] I4891 Unspecified atrial fibrillation Unspecified atrial fib rillation Diagnosis 10/11/2019 07:14:00 AM EDT [facility] D649 Anemia, unspecified Anemia, unspecified Diagnosis 0 10/09/2019 06:39:00 AM EDT [facility] I38 Endocarditis, valve unspecified Endocarditis, valve un specified Diagnosis 10/09/2019 06:39:00 AM EDT [facility] I4892 Unspecified atrial flutter Unspecified atrial flutter Diagnosis 10/09/2019 06:39:00 AM EDT [facility] Z951 Presence of aortocoronary bypass graft P resence of aortocoronary bypass graft Diagnosis 10/05/2019 06:55:00 AM EDT [facility] I10 Essential (primary) hypertension Essential (primary) h ypertension Diagnosis 10/05/2019 06:55:00 AM EDT [facility] R06.00 Dyspnea, unspecified Dyspnea, unspecified Diagnosis 09/28/2019 09:14:15 PM EDT [facility] I25.118 Atherosclerotic heart diseas e of ruby coronary artery with other forms of angina pectoris ATHEROSCLEROTIC HEART DISEASE OF [place] CORONARY ARTERY WITH OTHER FORMS OF ANGINA PECTORIS Diagnosis 09/28/2019 12:00:00 AM EDT [facility] ([facility]) Z48.812 Encounter for surgical after care following surgery on the circulatory system ENCOUNTER FOR SURGICAL AFTERCARE FOLLOWI NG SURGERY ON THE CIRCULATORY SYSTEM Diagnosis 09/28/2019 12:00:00 AM EDT [facility] ([facility] I10 Essential (primary) hypertension ESSENTIAL (PRIMARY) H YPERTENSION Diagnosis 09/28/2019 12:00:00 AM EDT [facility] ([facility]) Z79.01 jail (current) use of anticoagulant s PENITENTIARY (CURRENT) USE OF ANTICOAGULANTS Diagnosis 09/28/2019 12:00:00 AM EDT [facility] ([facility]) K80.20 Calculus of gallbladder without cholecys titis without obstruction CALCULUS OF GALLBLADDER WITHOUT CHOLECYSTITIS WITHOUT OBSTRUCTION Diagnosis 09/28/2019 12:00:00 AM EDT [facility] ([facility]) K57.90 Diverticulosis of intestine, part unspecified, without perforation or abscess without bleeding DIVERTICULOSIS OF INTESTINE, PART UNSPEC IFIED, WITHOUT PERFORATION OR ABSCESS WITHOUT BLEEDING Diagnosis 09/28/2019 12:00:00 AM EDT [facility] ([facility]) H40.9 Unspecified glaucoma UNSPECIFIED GLAUCOMA Diagnosis 09/28/2019 12:00:00 AM EDT [facility] ([facility]) N40.0 Benign prostatic hyperplasia without low er urinary tract symptoms BENIGN PROSTATIC HYPERPLASIA WITHOUT LOWER URINARY TRACT SYMPTOMS Diagnosis 09/28/2019 12:00:00 AM EDT [facility] ([facility]) Z95.0 Presence of cardiac pacemaker PRESENCE OF CARDIAC PACE MAKER Diagnosis 09/28/2019 12:00:00 AM EDT [facility] ([facility]) I49.5 Sick sinus syndrome SICK SINUS SYNDROME Diagnosis 0 09/28/2019 12:00:00 AM EDT [facility] ([facility]) Z95.1 Presence of aortocoronary bypass graft P RESENCE OF AORTOCORONARY BYPASS GRAFT Diagnosis 09/28/2019 12:00:00 AM EDT [facility] ([facility]) I48.92 Unspecified atrial flutter UNSPECIFIED ATRIAL FLUTTER Diagnosis 09/28/2019 12:00:00 AM EDT [facility] ([facility]) I42.9 Cardiomyopathy, unspecified CARDIOMYOPATHY, UNSPECIFIE D Diagnosis 09/28/2019 12:00:00 AM EDT [facility] ([facility]) I48.0 Paroxysmal atrial fibrillation PAROXYSMAL ATRIAL FIBRI LLATION Diagnosis 09/28/2019 12:00:00 AM EDT [facility] ([facility]) I25.118 Atherosclerotic heart diseas e of ruby coronary artery with other forms of angina pectoris Atherosclerotic heart disease of ruby Diagnosis 09/20/2019 09:54:00 AM EDT [facility] J98.8 Other specified respiratory disorders Ot her specified respiratory disorders Diagnosis 09/17/2019 10:39:14 AM EDT [facility] U07.1 COVID-19 COVID-19 Diagnosis 09/17/2019 10:39:14 AM ED T [facility] Z97.2 Presence of dental prosthetic device (co mplete) (partial) Presence of dental prosthetic device (co Diagnosis 09/17/2019 07:26:28 AM EDT [facility] I49.5 Sick sinus syndrome Sick sinus syndrome Diagnosis 0 09/17/2019 07:26:28 AM EDT [facility] I49.3 Ventricular premature depolarization Ventricular premature depolarization Diagnosis 09/17/2019 07:26:28 AM EDT [facility] R94.31 Abnormal electrocardiogram [ECG] [EKG] A bnormal electrocardiogram (ECG) (EKG) Diagnosis 09/17/2019 07:26:28 AM EDT [facility] N40.0 Benign prostatic hyperplasia without low er urinary tract symptoms Benign prostatic hyperplasia without low Diagnosis 09/17/2019 07:26:28 AM EDT [facility] C80.1 Malignant (primary) neoplasm, unspecifie d Malignant (primary) neoplasm, unspecifie Diagnosis 09/17/2019 07:26:28 AM EDT [facility] H91.93 Unspecified hearing loss, bilateral Unspecified hearing loss, bilateral Diagnosis 09/17/2019 07:26:28 AM EDT [facility] H40.9 Unspecified glaucoma Unspecified glaucoma Diagnosis 09/17/2019 07:26:28 AM EDT [facility] K57.90 Diverticulosis of intestine, part unspecified, without perforation or abscess without bleeding Diverticulosis of intestine, part unspec Diagnosis 09/17/2019 07:26:28 AM EDT [facility] K80.20 Calculus of gallbladder without cholecys titis without obstruction Calculus of gallbladder without cholecys Diagnosis 09/17/2019 07:26:28 AM EDT [facility] I42.9 Cardiomyopathy, unspecified Cardiomyopathy, unspecifie d Diagnosis 09/17/2019 07:26:28 AM EDT [facility] Z79.01 jail (current) use of anticoagulant s jail (current) use of anticoagulant Diagnosis 09/17/2019 07:26:28 AM EDT [facility] I48.92 Unspecified atrial flutter Unspecified atrial flutter Diagnosis 09/17/2019 07:26:28 AM EDT [facility] I48.0 Paroxysmal atrial fibrillation Paroxysmal atrial fibri llation Diagnosis 09/17/2019 07:26:28 AM EDT [facility] I10 Essential (primary) hypertension Essential (primary) h ypertension Diagnosis 09/17/2019 07:26:28 AM EDT [facility] R94.39 Abnormal result of other cardiovascular function study Abnormal result of other cardiovascular Diagnosis 08/23/2019 01:19:00 PM EDT [facility] Bladder cancer Bladder cancer Diagnosis 04/05/2019 09:34: [address] [facility] Surgeries/Procedures Procedure Description Date Indications Data Source(s) INTERROGATION EVAL REMOTE </90 D 1/2/COOK FRY LEAD PM 02/10 12:00:00 AM NARGIS TODD ([facility]) INTERROGATION REMOTE </90 D SITE LEAD REVIEW 02/11/20 12:00:00 AM EST MED[facility] ([facility]) ECG ROUTINE ECG W/LEAST 12 LDS W/I&R 01/14/2020 12:00: 00 AM EST [facility] ([facility]) JOHN VIDEO JOHN VIDEO Routine 12/19/2019 7:53 AM EDT 12/19/2019 07:53:50 AM EDT [facility] CARDIAC REPORT CARDIAC REPORT 12/18/2019 3:44 PM EDT 12/18/2019 03:44:26 PM EDT [facility] Anticoagulant MGMT For Patient Taking Warfarin, Inc Review & Intr 12/14/2019 12:00:00 AM EDT [facility] ([facility] Anticoagulant MGMT For Patient Taking Warfarin, Inc Review & Intr 12/03/2019 12:00:00 AM EDT [facility] ([facility]) Anticoagulant MGMT For Patient Taking Warfarin, Inc Review & Intr 11/21/2019 12:00:00 AM EDT [facility] ([facility]) ECG ROUTINE ECG W/LEAST 12 LDS W/I&R 11/12/2019 12:00: 00 AM EDT [facility] ([facility]) PROGRAM EVAL IMPLANTABLE IN PRSN 1 LD PACEMAKER 2019 12:00:00 AM EDT [facility] ([facility]) Anticoagulant MGMT For Patient Taking Warfarin, Inc Review & Intr 10/30/2019 12:00:00 AM EDT [facility] ([facility]) Anticoagulant MGMT For Patient Taking Warfarin, Inc Review & Intr 10/26/2019 12:00:00 AM EDT [facility] ([facility]) PROTHROMBIN TIME PROTIME-INR Routine 10/24/2019 2:17 AM EDT 10/24/2019 06:17:00 AM EDT [facility] BLOOD COUNT COMPLETE AUTOMATED CBC Routine 10/24/2019 2:17 A M EDT 10/24/2019 06:17:00 AM EDT [facility] BASIC METABOLIC PANEL CALCIUM TOTAL BASIC METABOLIC PANEL Timed 10/24/2019 2:17 AM EDT 10/24/2019 06:17:00 AM EDT [facility] XR CHEST PORTABLE XR CHEST PORTABLE STAT 10/23/2019 4:05 PM EDT 10/23/2019 08:05:51 PM EDT [facility] FLUOROSCOPY SPX <1 HOUR PHYSICIAN TIME XR FLUORO PACEMAKER INSE RT Routine 10/23/2019 3:42 PM EDT 10/23/2019 07:42:17 PM EDT [facility] 2019 NCOV AMPLIFIED 2019 NCOV AMPLIFIED STAT 10/23/2019 11:30 AM EDT 10/23/2019 03:30:00 PM EDT [facility] PREPARE PLASMA PREPARE PLASMA Routine 10/23/2019 7:00 AM EDT 10/23/2019 11:00:00 AM EDT [facility] PROTHROMBIN TIME PROTIME-INR Routine 10/23/2019 2:34 AM EDT 10/23/2019 06:34:00 AM EDT [facility] BLOOD COUNT COMPLETE AUTOMATED CBC Routine 10/23/2019 2:34 A M EDT 10/23/2019 06:34:00 AM EDT [facility] MAGNESIUM MAGNESIUM Routine 10/23/2019 2:34 AM EDT 10/23/2019 06:34:00 AM EDT [facility] BASIC METABOLIC PANEL CALCIUM TOTAL BASIC METABOLIC PANEL Timed 10/23/2019 2:34 AM EDT 10/23/2019 06:34:00 AM EDT [facility] ROOM TEMP AB SCREEN ROOM TEMP AB SCREEN Routine 10/22/2019 11:50 AM EDT 10/22/2019 03:50:00 PM EDT [facility] XR CHEST PA AND LATERAL XR CHEST PA AND LATERAL Routine 10/22/2019 8:27 AM EDT 10/22/2019 12:27:40 PM EDT [facility] PROTHROMBIN TIME PROTIME-INR Routine 10/22/2019 3:17 AM EDT 10/22/2019 07:17:00 AM EDT [facility] BLOOD COUNT COMPLETE AUTOMATED CBC Routine 10/22/2019 3:17 A M EDT 10/22/2019 07:17:00 AM EDT [facility] PROTHROMBIN TIME PROTIME-INR Routine 10/21/2019 2:24 AM EDT 10/21/2019 06:24:00 AM EDT [facility] BLOOD COUNT COMPLETE AUTOMATED CBC Routine 10/21/2019 2:24 A M EDT 10/21/2019 06:24:00 AM EDT [facility] BASIC METABOLIC PANEL CALCIUM TOTAL BASIC METABOLIC PANEL Add-O n 10/21/2019 2:24 AM EDT 10/21/2019 06:24:00 AM EDT [facility] PROTHROMBIN TIME PROTIME-INR Routine 10/20/2019 2:30 AM EDT 10/20/2019 06:30:00 AM EDT [facility] BLOOD COUNT COMPLETE AUTOMATED CBC Routine 10/20/2019 2:30 A M EDT 10/20/2019 06:30:00 AM EDT [facility] PROTHROMBIN TIME PROTIME-INR Routine 10/19/2019 2:15 AM EDT 10/19/2019 06:15:00 AM EDT [facility] BLOOD COUNT COMPLETE AUTOMATED CBC Routine 10/19/2019 2:15 A M EDT 10/19/2019 06:15:00 AM EDT [facility] MAGNESIUM MAGNESIUM Timed 10/19/2019 2:15 AM EDT 10/19/2019 06:15:00 AM EDT [facility] BASIC METABOLIC PANEL CALCIUM TOTAL BASIC METABOLIC PANEL Timed 10/19/2019 2:15 AM EDT 10/19/2019 06:15:00 AM EDT [facility] PROTHROMBIN TIME PROTIME-INR Routine 10/18/2019 2:25 AM EDT 10/18/2019 06:25:00 AM EDT [facility] BLOOD COUNT COMPLETE AUTOMATED CBC Routine 10/18/2019 2:25 A M EDT 10/18/2019 06:25:00 AM EDT [facility] MAGNESIUM MAGNESIUM Timed 10/18/2019 2:25 AM EDT 10/18/2019 06:25:00 AM EDT [facility] BASIC METABOLIC PANEL CALCIUM TOTAL BASIC METABOLIC PANEL Timed 10/18/2019 2:25 AM EDT 10/18/2019 06:25:00 AM EDT [facility] PROTHROMBIN TIME PROTIME-INR Timed 10/17/2019 2:31 AM EDT 10/17/2019 06:31:00 AM EDT [facility] BLOOD COUNT COMPLETE AUTOMATED CBC Routine 10/17/2019 2:31 A M EDT 10/17/2019 06:31:00 AM EDT [facility] MAGNESIUM MAGNESIUM Timed 10/17/2019 2:31 AM EDT 10/17/2019 06:31:00 AM EDT [facility] BASIC METABOLIC PANEL CALCIUM TOTAL BASIC METABOLIC PANEL Timed 10/17/2019 2:31 AM EDT 10/17/2019 06:31:00 AM EDT [facility] ECG ROUTINE ECG W/LEAST 12 LDS TRCG ONLY W/O I&R ECG 12-LEAD Routine 10/16/2019 4:26 PM EDT 10/16/2019 08:26:29 PM EDT [facility] URINE CULTURE HOLD SPECIMEN URINE CULTURE HOLD SPECIMEN Routine 10/16/2019 4:19 PM EDT 10/16/2019 08:19:00 PM EDT [facility] URNLS DIP STICK/TABLET RGNT AUTO W/O MICROSCOPY URINALYSIS W/O MICRO Routine 10/16/2019 4:19 PM EDT 10/16/2019 08:19:00 PM EDT [facility] GLUC BLD GLUC MNTR DEV CLEARED FDA SPEC HOME USE POCT GLUCOSE Routine 10/16/2019 3:43 PM EDT 10/16/2019 07:43:00 PM EDT [facility] IADNA S AUREUS METHICILLIN RESIST AMP PROBE TQ MRSA SCREEN BY P CR Routine 10/16/2019 3:30 PM EDT 10/16/2019 07:30:00 PM EDT [facility] BLOOD COUNT COMPLETE AUTOMATED CBC Routine 10/16/2019 3:29 P M EDT 10/16/2019 07:29:00 PM EDT [facility] HEPATIC FUNCTION PANEL HEPATIC FUNCTION PANEL Routine 020 3:29 PM EDT 10/16/2019 07:29:[address] [facility] BASIC METABOLIC PANEL CALCIUM TOTAL BASIC METABOLIC PANEL Routi ne 10/16/2019 3:29 PM EDT 10/16/2019 07:29:00 PM EDT [facility] 2019 NCOV AMPLIFIED 2019 NCOV AMPLIFIED STAT 10/16/2019 2:33 PM EDT 10/16/2019 06:33:00 PM EDT [facility] PROTHROMBIN TIME PROTIME-INR Timed 10/02/2019 2:23 AM EDT 10/02/2019 06:23:00 AM EDT [facility] BLOOD COUNT COMPLETE AUTOMATED CBC Timed 10/02/2019 2:23 A M EDT 10/02/2019 06:23:00 AM EDT [facility] 2018 NCOV AMPLIFIED 2019 NCOV AMPLIFIED Routine 10/02/2019 12:10 AM EDT 10/02/2019 04:10:00 AM EDT [facility] PROTHROMBIN TIME PROTIME-INR Timed 10/01/2019 2:20 AM EDT 10/01/2019 06:20:00 AM EDT [facility] BLOOD COUNT COMPLETE AUTOMATED CBC Routine 10/01/2019 2:20 A M EDT 10/01/2019 06:20:00 AM EDT [facility] BASIC METABOLIC PANEL CALCIUM TOTAL BASIC METABOLIC PANEL Timed 10/01/2019 2:20 AM EDT 10/01/2019 06:20:00 AM EDT [facility] BLOOD TYPING ABO TYPE AND SCREEN Routine 09/30/2019 9:34 AM EDT 09/30/2019 01:34:00 PM EDT [facility] BLOOD COUNT COMPLETE AUTOMATED CBC Timed 09/30/2019 5:58 A M EDT 09/30/2019 09:58:00 AM EDT [facility] PROTHROMBIN TIME PROTIME-INR Timed 09/30/2019 2:18 AM EDT 09/30/2019 06:18:00 AM EDT [facility] BLOOD COUNT COMPLETE AUTOMATED CBC Routine 09/30/2019 2:18 A M EDT 09/30/2019 06:18:00 AM EDT [facility] BASIC METABOLIC PANEL CALCIUM TOTAL BASIC METABOLIC PANEL Timed 09/30/2019 2:18 AM EDT 09/30/2019 06:18:00 AM EDT [facility] PROTHROMBIN TIME PROTIME-INR STAT 09/29/2019 9:44 AM EDT 09/29/2019 01:44:00 PM EDT [facility] BLOOD COUNT COMPLETE AUTOMATED CBC Routine 09/29/2019 1:10 A M EDT 09/29/2019 05:10:00 AM EDT [facility] BASIC METABOLIC PANEL CALCIUM TOTAL BASIC METABOLIC PANEL Timed 09/29/2019 1:10 AM EDT 09/29/2019 05:10:00 AM EDT [facility] XR CHEST PA AND LATERAL XR CHEST PA AND LATERAL Routine 09/29/2019 12:00 AM EDT 09/29/2019 04:00:00 AM EDT [facility] NT PRO BNP NT PRO BNP STAT 09/28/2019 10:47 PM EDT 09/29/2019 02:47:00 AM EDT [facility] BLOOD COUNT COMPLETE AUTO&AUTO DIFRNTL WBC COUNT CBC AND DIFFER ENTIAL STAT 09/28/2019 10:47 PM EDT 09/29/2019 02:47:00 AM EDT [facility] BASIC METABOLIC PANEL CALCIUM TOTAL BASIC METABOLIC PANEL STAT 09/28/2019 10:47 PM EDT 09/29/2019 02:47:00 AM EDT [facility] XR CHEST PORTABLE XR CHEST PORTABLE STAT 09/28/2019 10:17 PM EDT 09/29/2019 02:17:16 AM EDT [facility] XR CHEST PA AND LATERAL XR CHEST PA AND LATERAL Pending Dischar ge 09/28/2019 9:21 AM EDT 09/28/2019 01:21:33 PM EDT [facility] PROTHROMBIN TIME PROTIME-INR Timed 09/28/2019 9:13 AM EDT 09/28/2019 01:13:00 PM EDT [facility] BLOOD COUNT COMPLETE AUTOMATED CBC Timed 09/28/2019 9:13 A M EDT 09/28/2019 01:13:00 PM EDT [facility] BASIC METABOLIC PANEL CALCIUM TOTAL BASIC METABOLIC PANEL Timed 09/28/2019 9:13 AM EDT 09/28/2019 01:13:00 PM EDT [facility] IR THORACENTESIS LOCALIZATION LEFT IR THORACENTESIS LOCALIZ ATION LEFT Pending Discharge 09/27/2019 9:48 AM EDT 09/27/2019 01:48:18 PM EDT [facility] 2019 NCOV AMPLIFIED 2019 NCOV AMPLIFIED Timed 09/27/2019 2:21 AM EDT 09/27/2019 06:21:00 AM EDT [facility] PROTHROMBIN TIME PROTIME-INR Timed 09/27/2019 2:14 AM EDT 09/27/2019 06:14:00 AM EDT [facility] BLOOD COUNT COMPLETE AUTOMATED CBC Timed 09/27/2019 2:14 A M EDT 09/27/2019 06:14:00 AM EDT [facility] MAGNESIUM MAGNESIUM Timed 09/27/2019 2:14 AM EDT 09/27/2019 06:14:00 AM EDT [facility] BASIC METABOLIC PANEL CALCIUM TOTAL BASIC METABOLIC PANEL Timed 09/27/2019 2:14 AM EDT 09/27/2019 06:14:00 AM EDT [facility] XR CHEST PA AND LATERAL XR CHEST PA AND LATERAL Routine 09/26/2019 10:58 AM EDT 09/26/2019 02:58:10 PM EDT [facility] IR THORACENTESIS LOCALIZATION RIGHT IR THORACENTESIS LOCALI ZATION RIGHT Routine 09/26/2019 8:34 AM EDT 09/26/2019 12:34:59 PM EDT [facility] POTASSIUM SERUM PLASMA/WHOLE BLOOD POTASSIUM Timed 09/26/2019 6: 47 AM EDT 09/26/2019 10:47:00 AM EDT [facility] MAGNESIUM MAGNESIUM Timed 09/26/2019 6:47 AM EDT 09/26/2019 10:47:00 AM EDT [facility] PROTHROMBIN TIME PROTIME-INR Timed 09/26/2019 2:39 AM EDT 09/26/2019 06:39:00 AM EDT [facility] BLOOD COUNT COMPLETE AUTOMATED CBC Timed 09/26/2019 2:39 A M EDT 09/26/2019 06:39:00 AM EDT [facility] MAGNESIUM MAGNESIUM Timed 09/26/2019 2:39 AM EDT 09/26/2019 06:39:00 AM EDT [facility] BASIC METABOLIC PANEL CALCIUM TOTAL BASIC METABOLIC PANEL Timed 09/26/2019 2:39 AM EDT 09/26/2019 06:39:00 AM EDT [facility] POTASSIUM SERUM PLASMA/WHOLE BLOOD POTASSIUM Timed 09/25/2019 6: 21 PM EDT 09/25/2019 10:21:00 PM EDT [facility] MAGNESIUM MAGNESIUM Timed 09/25/2019 6:21 PM EDT 09/25/2019 10:21:00 PM EDT [facility] POTASSIUM SERUM PLASMA/WHOLE BLOOD POTASSIUM Timed 09/25/2019 11: 25 AM EDT 09/25/2019 03:25:00 PM EDT [facility] MAGNESIUM MAGNESIUM Timed 09/25/2019 11:25 AM EDT 09/25/2019 03:25:00 PM EDT [facility] XR CHEST PA AND LATERAL XR CHEST PA AND LATERAL Routine 09/25/2019 8:32 AM EDT 09/25/2019 12:32:18 PM EDT [facility] ECG ROUTINE ECG W/LEAST 12 LDS TRCG ONLY W/O I&R ECG 12-LEAD Routine 09/25/2019 6:08 AM EDT 09/25/2019 10:08:24 AM EDT [facility] PROTHROMBIN TIME PROTIME-INR Timed 09/25/2019 2:21 AM EDT 09/25/2019 06:21:00 AM EDT [facility] BLOOD COUNT COMPLETE AUTOMATED CBC Timed 09/25/2019 2:21 A M EDT 09/25/2019 06:21:00 AM EDT [facility] MAGNESIUM MAGNESIUM Timed 09/25/2019 2:21 AM EDT 09/25/2019 06:21:00 AM EDT [facility] BASIC METABOLIC PANEL CALCIUM TOTAL BASIC METABOLIC PANEL Timed 09/25/2019 2:21 AM EDT 09/25/2019 06:21:00 AM EDT [facility] POTASSIUM SERUM PLASMA/WHOLE BLOOD POTASSIUM Routine 09/24/2019 8:30 PM EDT 09/25/2019 12:30:00 AM EDT [facility] MAGNESIUM MAGNESIUM Routine 09/24/2019 8:30 PM EDT 09/25/2019 12:30:00 AM EDT [facility] US GUIDANCE NEEDLE PLACEMENT RS&I US THORACENTESIS LEFT Routine 09/24/2019 1:26 PM EDT 09/24/2019 05:26:44 PM EDT [facility] GLUC BLD GLUC MNTR DEV CLEARED FDA SPEC HOME USE POCT GLUCOSE Routine 09/24/2019 11:50 AM EDT 09/24/2019 03:50:00 PM EDT [facility] POTASSIUM SERUM PLASMA/WHOLE BLOOD POTASSIUM Timed 09/24/2019 11: 35 AM EDT 09/24/2019 03:35:00 PM EDT [facility] MAGNESIUM MAGNESIUM Timed 09/24/2019 11:35 AM EDT 09/24/2019 03:35:00 PM EDT [facility] GLUC BLD GLUC MNTR DEV CLEARED FDA SPEC HOME USE POCT GLUCOSE Routine 09/24/2019 7:47 AM EDT 09/24/2019 11:47:00 AM EDT [facility] XR CHEST PORTABLE XR CHEST PORTABLE Timed 09/24/2019 7:16 AM EDT 09/24/2019 11:16:42 AM EDT [facility] PROTHROMBIN TIME PROTIME-INR Routine 09/24/2019 3:17 AM EDT 09/24/2019 07:17:00 AM EDT [facility] POTASSIUM SERUM PLASMA/WHOLE BLOOD POTASSIUM Timed 09/24/2019 3: 17 AM EDT 09/24/2019 07:17:00 AM EDT [facility] MAGNESIUM MAGNESIUM Timed 09/24/2019 3:17 AM EDT 09/24/2019 07:17:00 AM EDT [facility] BASIC METABOLIC PANEL CALCIUM TOTAL BASIC METABOLIC PANEL Add-O n 09/24/2019 3:17 AM EDT 09/24/2019 07:17:00 AM EDT [facility] POTASSIUM SERUM PLASMA/WHOLE BLOOD POTASSIUM Timed 09/23/2019 7: 34 PM EDT 09/23/2019 11:34:00 PM EDT [facility] MAGNESIUM MAGNESIUM Timed 09/23/2019 7:34 PM EDT 09/23/2019 11:34:00 PM EDT [facility] GLUC BLD GLUC MNTR DEV CLEARED FDA SPEC HOME USE POCT GLUCOSE Routine 09/23/2019 6:58 PM EDT 09/23/2019 10:58:00 PM EDT [facility] GLUC BLD GLUC MNTR DEV CLEARED FDA SPEC HOME USE POCT GLUCOSE Routine 09/23/2019 1:36 PM EDT 09/23/2019 05:36:00 PM EDT [facility] POTASSIUM SERUM PLASMA/WHOLE BLOOD POTASSIUM Timed 09/23/2019 11: 59 AM EDT 09/23/2019 03:59:00 PM EDT [facility] MAGNESIUM MAGNESIUM Timed 09/23/2019 11:59 AM EDT 09/23/2019 03:59:00 PM EDT [facility] GLUC BLD GLUC MNTR DEV CLEARED FDA SPEC HOME USE POCT GLUCOSE Routine 09/23/2019 8:47 AM EDT 09/23/2019 12:47:00 PM EDT [facility] XR CHEST PORTABLE XR CHEST PORTABLE STAT 09/23/2019 7:22 AM EDT 09/23/2019 11:22:17 AM EDT [facility] PROTHROMBIN TIME PROTIME-INR Timed 09/23/2019 2:16 AM EDT 09/23/2019 06:16:00 AM EDT [facility] BLOOD COUNT COMPLETE AUTOMATED CBC Timed 09/23/2019 2:16 A M EDT 09/23/2019 06:16:00 AM EDT [facility] MAGNESIUM MAGNESIUM Timed 09/23/2019 2:16 AM EDT 09/23/2019 06:16:00 AM EDT [facility] CALCIUM IONIZED CALCIUM, IONIZED Timed 09/23/2019 2:16 AM EDT 09/23/2019 06:16:00 AM EDT [facility] BASIC METABOLIC PANEL CALCIUM TOTAL BASIC METABOLIC PANEL Timed 09/23/2019 2:16 AM EDT 09/23/2019 06:16:00 AM EDT [facility] GLUC BLD GLUC MNTR DEV CLEARED FDA SPEC HOME USE POCT GLUCOSE Routine 09/22/2019 5:50 PM EDT 09/22/2019 09:50:00 PM EDT [facility] XR CHEST PORTABLE XR CHEST PORTABLE Timed 09/22/2019 4:26 PM EDT 09/22/2019 08:26:36 PM EDT [facility] POTASSIUM SERUM PLASMA/WHOLE BLOOD POTASSIUM STAT 09/22/2019 1: 15 PM EDT 09/22/2019 05:15:00 PM EDT [facility] MAGNESIUM MAGNESIUM STAT 09/22/2019 1:15 PM EDT 09/22/2019 05:15:00 PM EDT [facility] GLUC BLD GLUC MNTR DEV CLEARED FDA SPEC HOME USE POCT GLUCOSE Routine 09/22/2019 1:13 PM EDT 09/22/2019 05:13:00 PM EDT [facility] US CHEST REAL TIME W/IMAGE DOCUMENTATION US CHEST Routin e 09/22/2019 10:42 AM EDT 09/22/2019 02:42:58 PM EDT [facility] GLUC BLD GLUC MNTR DEV CLEARED FDA SPEC HOME USE POCT GLUCOSE Routine 09/22/2019 8:34 AM EDT 09/22/2019 12:34:00 PM EDT [facility] XR CHEST PORTABLE XR CHEST PORTABLE Routine 09/22/2019 7:50 AM EDT 09/22/2019 11:50:54 AM EDT [facility] PROTHROMBIN TIME PROTIME-INR Routine 09/22/2019 2:03 AM EDT 09/22/2019 06:03:00 AM EDT [facility] BLOOD COUNT COMPLETE AUTOMATED CBC Timed 09/22/2019 2:03 A M EDT 09/22/2019 06:03:00 AM EDT [facility] MAGNESIUM MAGNESIUM Timed 09/22/2019 2:03 AM EDT 09/22/2019 06:03:00 AM EDT [facility] CALCIUM IONIZED CALCIUM, IONIZED Timed 09/22/2019 2:03 AM EDT 09/22/2019 06:03:00 AM EDT [facility] BASIC METABOLIC PANEL CALCIUM TOTAL BASIC METABOLIC PANEL Timed 09/22/2019 2:03 AM EDT 09/22/2019 06:03:00 AM EDT [facility] GLUC BLD GLUC MNTR DEV CLEARED FDA SPEC HOME USE POCT GLUCOSE Routine 09/21/2019 5:37 PM EDT 09/21/2019 09:37:00 PM EDT [facility] GLUC BLD GLUC MNTR DEV CLEARED FDA SPEC HOME USE POCT GLUCOSE Routine 09/21/2019 2:13 PM EDT 09/21/2019 06:13:00 PM EDT [facility] GLUC BLD GLUC MNTR DEV CLEARED FDA SPEC HOME USE POCT GLUCOSE Routine 09/21/2019 5:28 AM EDT 09/21/2019 09:28:00 AM EDT [facility] GLUC BLD GLUC MNTR DEV CLEARED FDA SPEC HOME USE POCT GLUCOSE Routine 09/21/2019 3:39 AM EDT 09/21/2019 07:39:00 AM EDT [facility] PROTHROMBIN TIME PROTIME-INR Timed 09/21/2019 3:36 AM EDT 09/21/2019 07:36:00 AM EDT [facility] BLOOD COUNT COMPLETE AUTOMATED CBC Timed 09/21/2019 3:36 A M EDT 09/21/2019 07:36:00 AM EDT [facility] MAGNESIUM MAGNESIUM Timed 09/21/2019 3:36 AM EDT 09/21/2019 07:36:00 AM EDT [facility] CALCIUM IONIZED CALCIUM, IONIZED Timed 09/21/2019 3:36 AM EDT 09/21/2019 07:36:00 AM EDT [facility] BASIC METABOLIC PANEL CALCIUM TOTAL BASIC METABOLIC PANEL Timed 09/21/2019 3:36 AM EDT 09/21/2019 07:36:00 AM EDT [facility] GLUC BLD GLUC MNTR DEV CLEARED FDA SPEC HOME USE POCT GLUCOSE Routine 09/21/2019 2:07 AM EDT 09/21/2019 06:07:00 AM EDT [facility] POC ARTERIAL BLOOD GAS POC ARTERIAL BLOOD GAS Routine 020 1:20 AM EDT 09/21/2019 05:20:[address] [facility] THROMBOPLASTIN TIME PARTIAL PLASMA/WHOLE BLOOD APTT STAT 09/21/2019 12:40 AM EDT 09/21/2019 04:40:00 AM EDT [facility] PROTHROMBIN TIME PROTIME-INR STAT 09/21/2019 12:40 AM EDT 09/21/2019 04:40:00 AM EDT [facility] GLUC BLD GLUC MNTR DEV CLEARED FDA SPEC HOME USE POCT GLUCOSE Routine 09/20/2019 11:52 PM EDT 09/21/2019 03:52:00 AM EDT [facility] BLOOD COUNT COMPLETE AUTOMATED CBC STAT 09/20/2019 11:49 P M EDT 09/21/2019 03:49:00 AM EDT [facility] POTASSIUM SERUM PLASMA/WHOLE BLOOD POTASSIUM Routine 09/20/2019 11:49 PM EDT 09/21/2019 03:49:00 AM EDT [facility] GLUC BLD GLUC MNTR DEV CLEARED FDA SPEC HOME USE POCT GLUCOSE Routine 09/20/2019 10:07 PM EDT 09/21/2019 02:07:00 AM EDT [facility] POC ARTERIAL BLOOD GAS POC ARTERIAL BLOOD GAS Routine 020 9:17 PM EDT 09/21/2019 01:17:[address] [facility] GLUC BLD GLUC MNTR DEV CLEARED FDA SPEC HOME USE POCT GLUCOSE Routine 09/20/2019 9:16 PM EDT 09/21/2019 01:16:00 AM EDT [facility] POC ARTERIAL BLOOD GAS POC ARTERIAL BLOOD GAS Routine 020 8:18 PM EDT 09/21/2019 12:18:[address] [facility] ECG ROUTINE ECG W/LEAST 12 LDS TRCG ONLY W/O I&R ECG 12-LEAD Routine 09/20/2019 8:00 PM EDT 09/21/2019 12:00:20 AM EDT [facility] GLUC BLD GLUC MNTR DEV CLEARED FDA SPEC HOME USE POCT GLUCOSE Routine 09/20/2019 7:54 PM EDT 09/20/2019 11:54:00 PM EDT [facility] BLOOD COUNT COMPLETE AUTOMATED CBC STAT 09/20/2019 7:51 P M EDT 09/20/2019 11:51:00 PM EDT [facility] MAGNESIUM MAGNESIUM STAT 09/20/2019 7:51 PM EDT 09/20/2019 11:51:00 PM EDT [facility] CALCIUM IONIZED CALCIUM, IONIZED STAT 09/20/2019 7:51 PM EDT 09/20/2019 11:51:00 PM EDT [facility] BASIC METABOLIC PANEL CALCIUM TOTAL BASIC METABOLIC PANEL STAT 09/20/2019 7:51 PM EDT 09/20/2019 11:51:00 PM EDT [facility] XR CHEST FOR SPONGE/NEEDLE/INSTRUMENT COUNT XR CHEST FOR SPONGE/NEEDLE/INSTRUMENT COUNT STAT 09/20/2019 7:17 PM EDT 09/20/2019 11:17:25 PM EDT [facility] POC ARTERIAL BLOOD GAS W LYTES POC ARTERIAL BLOOD GAS W LYTES R outine 09/20/2019 6:16 PM EDT 09/20/2019 10:16:00 PM EDT [facility] POC ACT POC ACT Routine 09/20/2019 6:15 PM EDT 020 10:15:00 PM EDT [facility] THROMBOPLASTIN TIME PARTIAL PLASMA/WHOLE BLOOD APTT Routine 09/20/2019 6:14 PM EDT 09/20/2019 10:14:00 PM EDT [facility] PROTHROMBIN TIME PROTIME-INR Routine 09/20/2019 6:14 PM EDT 09/20/2019 10:14:00 PM EDT [facility] POC ARTERIAL BLOOD GAS W LYTES POC ARTERIAL BLOOD GAS W LYTES R outine 09/20/2019 5:26 PM EDT 09/20/2019 09:26:00 PM EDT [facility] POC ACT POC ACT Routine 09/20/2019 5:25 PM EDT 020 09:25:00 PM EDT [facility] POCT VENOUS BLOOD GAS W LYFIONA POCT VENOUS BLOOD GAS W LIEN Emelina mohan 09/20/2019 4:55 PM EDT 09/20/2019 08:55:00 PM EDT [facility] POC ACT POC ACT Routine 09/20/2019 4:54 PM EDT 020 08:54:00 PM EDT [facility] POCT VENOUS BLOOD GAS W LYFIONA POCT VENOUS BLOOD GAS W LIEN Emelina mohan 09/20/2019 4:22 PM EDT 09/20/2019 08:22:00 PM EDT [facility] POC ACT POC ACT Routine 09/20/2019 4:21 PM EDT 020 08:21:00 PM EDT [facility] POCT VENOUS BLOOD GAS W LAVERNEFIONA POCT VENOUS BLOOD GAS W LIEN Emelina mohan 09/20/2019 3:50 PM EDT 09/20/2019 07:50:00 PM EDT [facility] POC ACT POC ACT Routine 09/20/2019 3:49 PM EDT 020 07:49:00 PM EDT [facility] POC ARTERIAL BLOOD GAS W LIEN POC ARTERIAL BLOOD GAS W LIEN espinoza 09/20/2019 3:22 PM EDT 09/20/2019 07:22:00 PM EDT [facility] POCT VENOUS BLOOD GAS W LAVERNEFIONA POCT VENOUS BLOOD GAS W LAVERNEFIONA Emelina mohan 09/20/2019 3:17 PM EDT 09/20/2019 07:17:00 PM EDT [facility] POC ACT POC ACT Routine 09/20/2019 3:17 PM EDT 020 07:17:00 PM EDT [facility] POC ARTERIAL BLOOD GAS W LIEN POC ARTERIAL BLOOD GAS W LIEN espinoza 09/20/2019 2:51 PM EDT 09/20/2019 06:51:00 PM EDT [facility] POC ACT POC ACT Routine 09/20/2019 2:50 PM EDT 020 06:50:00 PM EDT [facility] POC ARTERIAL BLOOD GAS W LIEN POC ARTERIAL BLOOD GAS W LAVERNEFIONA R outine 09/20/2019 1:35 PM EDT 09/20/2019 05:35:00 PM EDT [facility] POC ACT POC ACT Routine 09/20/2019 1:34 PM EDT 020 05:34:00 PM EDT [facility] CORONARY ARTERY BYPASS GRAFT (CABG), WITH ENDOSCOPIC V ESSEL PROCUREMENT CORONARY ARTERY BYPASS GRAFT (CABG), WITH ENDOSCOPIC VESSEL PROCUREMENT 09/20/2019 12:58 PM EDT 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 09/20/2019 04:58:00 PM EDT - 09/21/2019 12:25:00 AM EDT 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 09/17/2019 12:40:00 PM EDT 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 [facility] 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 BLOOD TYPING ABO TYPE AND SCREEN Routine 09/17/2019 8:40 AM EDT 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 09/17/2019 12:40:00 PM EDT 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 [facility] 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 ECG ROUTINE ECG W/LEAST 12 LDS TRCG ONLY W/O I&R ECG 12-LEAD Routine 09/17/2019 8:31 AM EDT 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 09/17/2019 12:31:53 PM EDT 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 [facility] 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 NT PRO BNP NT PRO BNP Routine 09/17/2019 8:00 AM EDT 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 09/17/2019 12:00:00 PM EDT 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 [facility] 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 THROMBOPLASTIN TIME PARTIAL PLASMA/WHOLE BLOOD APTT Routine 09/17/2019 8:00 AM EDT 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 09/17/2019 12:00:00 PM EDT 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 [facility] 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 PROTHROMBIN TIME PROTIME-INR Routine 09/17/2019 8:00 AM EDT 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 09/17/2019 12:00:00 PM EDT 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 [facility] 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 BLOOD COUNT COMPLETE AUTO&AUTO DIFRNTL WBC COUNT CBC AND DIFFER ENTIAL Routine 09/17/2019 8:00 AM EDT 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 09/17/2019 12:00:00 PM EDT 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 [facility] 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 HEMOGLOBIN GLYCOSYLATED A1C HEMOGLOBIN A1C Routine 09/17/2019 8:00 AM EDT 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 09/17/2019 12:00:00 PM EDT 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 [facility] 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 COMPREHENSIVE METABOLIC PANEL COMPREHENSIVE METABOLIC PANEL Rou marques 09/17/2019 8:00 AM EDT 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 MYOCARDIAL SPECT MULTIPLE STUDIES 08/06/2019 12:00:00 AM EDT [facility] ([facility]) CV STRS TST XERS&/OR RX CONT ECG PHYS SI&R 08/06/2019 12:00:00 AM EDT [facility] ([facility]) INTERROGATION EVAL REMOTE </90 D 1/2/COOK FRY LEAD PM 07/16 12:00:00 AM EDT [facility] ([facility]) INTERROGATION REMOTE </90 D SITE LEAD REVIEW 07/17/19 12:00:00 AM EDT [facility] ([facility]) ECG ROUTINE ECG W/LEAST 12 LDS W/I&R 07/11/2019 12:00: 00 AM EDT [facility] ([facility]) Virtual Brief Check In by an MD/QHP 05/23/2019 12:00:0 0 AM EDT [email or web address] ([facility]) BLOOD COUNT COMPLETE AUTO&AUTO DIFRNTL WBC COUNT CBC AND DIFFER ENTIAL STAT 05/04/2019 8:31 AM EST Malignant neoplasm of overlapping sites of bladder 0 01:31:00 PM EST Malignant neoplasm of overlapping sites of bladder [facility] Malignant neoplasm of overlapping sites of bladder CT THORAX W/CONTRAST MATERIAL CT THORAX WITH CONTRAST [id number] Rou marques 04/20/2019 10:23 AM EST Malignant neoplasm of overlapping sites of bladder 0 03:23:42 PM EST Malignant neoplasm of overlapping sites of bladder [facility] Malignant neoplasm of overlapping sites of bladder CT ABDOEN & PELVIS W/CONTRAST MATERIAL CT ABDOMEN PELVIS WI TH CONTRAST [id number] Routine 04/20/2019 10:23 AM EST Malignant neoplasm of overlapping sites of bladder 0 03:23:42 PM EST Malignant neoplasm of overlapping sites of bladder [facility] Malignant neoplasm of overlapping sites of bladder INTERROGATION EVAL REMOTE </90 D 1/2/COOK FRY LEAD PM 04/17 12:00:00 AM EST [facility] ([facility]) INTERROGATION REMOTE </90 D SITE LEAD REVIEW 04/17/19 20 12:00:00 AM EST [facility] ([facility]) JOHN VIDEO JOHN VIDEO Routine 04/05/2019 12:30 PM EST 04/05/2019 05:30:05 PM EST [facility] CYSTOURETHROSCOPY, W/BX CYSTOURETHROSCOPY, W/BX 04/05 12:18 PM EST Malignant neoplasm of urinary bladder, unspecified site 04/05/2019 05:18:00 PM EST - 04/05/2019 06:38:00 PM EST Malignant neoplasm of urinary bladder, unspecified site [facility] Malignant neoplasm of urinary bladder, u nspecified site LEVEL I SURG PATHOLOGY GROSS EXAMINATION ONLY SURGICA L PATHOLOGY EXAM ( ONLY) Routine 04/05/2019 12:00 AM EST 04/05/2019 05:00 :[address] [facility] ECHO TTHRC R-T 2D W/WOM-MODE COMPL SPEC&COLR DOP 03/28 12:00:00 AM EST [facility] ([facility]) NO CHARGE VISIT 03/16/2019 12:00:00 AM EST [email or web address] ([facility]) Office Visit, Est Pt., Level 2 FC 03/05/2019 12:00:00 AM EST eCW1 ([facility]) Office Visit, Est Pt., Level 3 PC 03/05/2019 12:00:00 AM EST eCW1 ([facility]) Results ID Date Data Source [id number] 03/27/2020 11:40:37 AM [facility] US PELVIS COMPLETE [id number] RESULTInte rpreted by:Lolis Casey [facility] PEL[facility] LIMITED.INDICATION: Gross hematuria and urinary frequency, evaluate for blood clot in the bladder.TECHNIQUE: Multiple real-time sonographic images of the urinary bladder and prostate were obtained. COMPARISON: Outside CT from 02/11/2020FINDINGS: Prior to voiding the bladder measured approximately 5.3 x 7.3 x 6.0 cm with a corresponding volume of 123 cc. No large intraluminal filling defects are noted. Bilateral ureteral jets are visualized.Following voiding, the bladder measured approximately 5.6 x 5.4 x 5.8 cm. This corresponds to an estimated residual of approximately 91 cc.The prostate measures approximately 3.8 x 3.2 x 3.4 cm. This corresponds to an estimated weight of approximately 21 g. The base of the prostate is impressing on the base of the bladder.IMPRESSION:1. Significant post void residual bladder volume.2. No sonographic evidence for filling defect or blood clot bladder.This document has been electronically signed by Lolis Casey MD on 03/27/2020 11:38 AM Name Value Range Interpretation Code Description Data Rema rce(s) Supporting Document(s) ID Date Data Source [id number] 03/28/2020 12:42:47 PM [facility] Service Cmnt XXX-Imp : NoneMicroorganism XXX Cult : No growth 1 day Name Value Range Interpretation Code Description Data Rema rce(s) Supporting Document(s) ID Date Data Source [id number] 03/27/2020 01:12:39 PM [facility] Name Value Range Interpretation Code Description Data Rema rce(s) Supporting Document(s) Color of Urine [facility] Clarity of Urine [facility] Specific gravity of Urine by Refractometry automated 1.010 1.003 -1.030 [facility] pH of Urine by Automated test strip 6.0 5.0-8.0 [facility] Protein [Mass/volume] in Urine by Automated test strip 100 mg/dL Neg [facility] Glucose [Mass/volume] in Urine by Automated test strip Neg [facility] Ketones [Mass/volume] in Urine by Automated test strip Neg [facility] Bilirubin.total [Presence] in Urine by Automated test strip Negative [facility] Hemoglobin [Presence] in Urine by Automated test strip Neg ative [facility] Leukocyte esterase [Presence] in Urine by Automated test strip Negative [facility] Nitrite [Presence] in Urine by Automated test strip Negati [facility] Leukocytes [#/area] in Urine sediment by Automated count 38 /HPF 0 -5 H [facility] Erythrocytes [#/area] in Urine sediment by Automated count 162 /HPF 0-3 H [facility] Bacteria [#/area] in Urine sediment by Automated count Non e [facility] Mucus [#/area] in Urine sediment by Microscopy low power field None [facility] ID Date Data Source [id number] 03/27/2020 08:30:23 AM [facility] Name Value Range Interpretation Code Description Data Rema rce(s) Supporting Document(s) Progress Note [facility] BHCZDx4iLrOARvDp29/CLIcfYKFie1WwUWxyBXj3RGwqFEDtP2CbZOG5hS3lCKI7CHsZOmJxThHyFNO4 lbm [file] WtNyIeQ6DusnWoisXQHdQZI4UqB2GmIhAZ7SSd5TZjD4TVK6tTRfXj7XSYi8ACuQDsNgYU1FWPq= ID Date Data Source [id number] 03/25/2020 09:09:00 AM EST [facility] ([facility] Name Value Range Interpretation Code Description Data Rema rce(s) Supporting Document(s) Urine Culture, Routine Laboratory test result [facility] ([facility] SRC:URINE Bacteria identified in Urine by Culture Laboratory test result [facility] ([facility] SRC:URINE ID Date Data Source [id number] 03/25/2020 09:08:00 AM EST [facility] ([facility] Name Value Range Interpretation Code Description Data Rmea rce(s) Supporting Document(s) Color Urine Laboratory test result [facility] ([facility] Appearance of Urine Laboratory test result [facility] ([facility] Specific Eunice 1.005 1.00-1.03 [facility] ([facility] PH Urine 9.0 5.0-8.0 Above high normal [facility] ([facility] Bilirubin.total [Presence] in Urine by Test strip Laboratory fiona t result Above high normal [facility] ([facility] ) Glucose Urine Laboratory test result [facility] ([facility] Blood Urine Laboratory test result Above high normal [facility] ([facility] Protein Urine Laboratory test result Above high normal [facility] ([facility] Ketones Laboratory test result Above high normal [facility] ([facility] Urobilinogen 8.0 EU/dl 0.2-1.0 Above high normal [facility] ([facility] Nitrite Laboratory test result Above high normal [facility] ([facility] Leukocytes Laboratory test result Above high normal [facility] ([facility] ID Date Data Source [id number] 03/25/2020 09:04:00 AM EST [facility] ([facility] Name Value Range Interpretation Code Description Data Rema rce(s) Supporting Document(s) BUN 29 mg/dL 8-23 Above high normal [facility] ([facility] NORMAL RANGES Age WBC RBC HGB HCT [...] Normal 80 and above >32 mL/min Normal Creat 1.6 mg/dL 0.7-1.2 Above high normal [facility] NORMAL RANGES Age WBC RBC HGB HCT [...] HCT IS 5% LESS SOURCE FOR DATA: DripDrop 1800 OPERATION MANUAL( AUTOMATED BLOOD COUNTS AND [...] Normal 80 and above >32 mL/min Normal Glu 112 mg/dL 70-110 Above high normal [facility] ([facility] NORMAL RANGES Age WBC RBC HGB HCT [...] HCT IS 5% LESS SOURCE FOR DATA: DripDrop 1800 OPERATION MANUAL( AUTOMATED BLOOD COUNTS AND [...] Normal 80 and above >32 mL/min Normal Co2 26.4 mmol/L 22.0-29.0 [facility] ([facility] NORMAL RANGES Age WBC RBC HGB HCT [...] HCT IS 5% LESS SOURCE FOR DATA: DripDrop 1800 OPERATION MANUAL( AUTOMATED BLOOD COUNTS AND [...] Normal 80 and above >32 mL/min Normal BUN/Creatinine Ratio 18.0 CALC [facility] ([facility] NORMAL RANGES Age WBC RBC HGB HCT [...] HCT IS 5% LESS SOURCE FOR DATA: DripDrop 1800 OPERATION MANUAL( AUTOMATED BLOOD COUNTS AND [...] Normal 80 and above >32 mL/min Normal CA 9.9 mg/dL 8.6-10.2 [facility] ([facility] NORMAL RANGES Age WBC RBC HGB HCT [...] HCT IS 5% LESS SOURCE FOR DATA: DripDrop 1800 OPERATION MANUAL( AUTOMATED BLOOD COUNTS AND [...] Normal 80 and above >32 mL/min Normal K 5.2 mmol/L 3.5-5.1 Above high normal [facility] ([facility] NORMAL RANGES Age WBC RBC HGB HCT [...] HCT IS 5% LESS SOURCE FOR DATA: DripDrop 1800 OPERATION MANUAL( AUTOMATED BLOOD COUNTS AND [...] Normal 80 and above >32 mL/min Normal Na 140 mmol/L 136-145 [facility] NORMAL RANGES Age WBC RBC HGB HCT [...] HCT IS 5% LESS SOURCE FOR DATA: DripDrop 1800 OPERATION MANUAL( AUTOMATED BLOOD COUNTS AND [...] Normal 80 and above >32 mL/min Normal Anion Gap 15 mmol/L [facility] NORMAL RANGES Age WBC RBC HGB HCT [...] HCT IS 5% LESS SOURCE FOR DATA: DripDrop 1800 OPERATION MANUAL( AUTOMATED BLOOD COUNTS AND [...] Normal 80 and above >32 mL/min Normal CL 103.9 mmol/L 98.0-107.0 [facility] ([facility] NORMAL RANGES Age WBC RBC HGB HCT [...] HCT IS 5% LESS SOURCE FOR DATA: DripDrop 1800 OPERATION MANUAL( AUTOMATED BLOOD COUNTS AND [...] Normal 80 and above >32 mL/min Normal eGFR Non-Afr. Brazilian 39 # [facility] ([facility] NORMAL RANGES Age WBC RBC HGB HCT [...] Normal 80 and above >32 mL/min Normal eGFR 45 # [place] ( [facility] NORMAL RANGES Age WBC RBC HGB HCT [...] HCT IS 5% LESS SOURCE FOR DATA: DripDrop 1800 OPERATION MANUAL( AUTOMATED BLOOD COUNTS AND [...] Normal 80 and above >32 mL/min Normal ID Date Data Source [id number] 03/25/2020 09:04:00 AM EST [facility] ([facility] Name Value Range Interpretation Code Description Data Rema rce(s) Supporting Document(s) WBC 4.5 10E3/uL 4.1-10.9 [facility] ([facility] NORMAL RANGES Age WBC RBC HGB HCT [...] HCT IS 5% LESS SOURCE FOR DATA: DripDrop 1800 OPERATION MANUAL( AUTOMATED BLOOD COUNTS AND [...] Normal 80 and above >32 mL/min Normal RBC 4.26 10E6/uL 4.20-6.30 [facility] ([facility] NORMAL RANGES Age WBC RBC HGB HCT [...] HCT IS 5% LESS SOURCE FOR DATA: DripDrop 1800 OPERATION MANUAL( AUTOMATED BLOOD COUNTS AND [...] Normal 80 and above >32 mL/min Normal HGB 9.9 g/dL 12.0-18.0 Below low normal [facility] ( [facility] NORMAL RANGES Age WBC RBC HGB HCT [...] HCT IS 5% LESS SOURCE FOR DATA: DripDrop 1800 OPERATION MANUAL( AUTOMATED BLOOD COUNTS AND [...] Normal 80 and above >32 mL/min Normal HCT 31.2 % 37.0-51.0 Below low normal [facility] ( [facility] NORMAL RANGES Age WBC RBC HGB HCT [...] HCT IS 5% LESS SOURCE FOR DATA: DripDrop 1800 OPERATION MANUAL( AUTOMATED BLOOD COUNTS AND [...] Normal 80 and above >32 mL/min Normal MCV 73.2 fL 80.0-97.0 Below low normal [facility] ( [facility] NORMAL RANGES Age WBC RBC HGB HCT [...] HCT IS 5% LESS SOURCE FOR DATA: DripDrop 1800 OPERATION MANUAL( AUTOMATED BLOOD COUNTS AND [...] Normal 80 and above >32 mL/min Normal PLT 251 10E3/uL 140-440 [facility] ([facility] NORMAL RANGES Age WBC RBC HGB HCT [...] HCT IS 5% LESS SOURCE FOR DATA: DripDrop 1800 OPERATION MANUAL( AUTOMATED BLOOD COUNTS AND [...] Normal 80 and above >32 mL/min Normal MCH 23.2 pg 26.0-32.0 Below low normal [facility] ( [facility] NORMAL RANGES Age WBC RBC HGB HCT [...] HCT IS 5% LESS SOURCE FOR DATA: DripDrop 1800 OPERATION MANUAL( AUTOMATED BLOOD COUNTS AND [...] Normal 80 and above >32 mL/min Normal MCHC 31.7 g/dL 31.0-36.0 [facility] ([facility] NORMAL RANGES Age WBC RBC HGB HCT [...] Normal 80 and above >32 mL/min Normal RDW-CV 20.6 % 11.5-14.5 Above high normal [facility] ([facility] NORMAL RANGES Age WBC RBC HGB HCT [...] HCT IS 5% LESS SOURCE FOR DATA: DripDrop 1800 OPERATION MANUAL( AUTOMATED BLOOD COUNTS AND [...] Normal 80 and above >32 mL/min Normal Lym% 15.9 % 10.0-58.5 [facility] NORMAL RANGES Age WBC RBC HGB HCT [...] HCT IS 5% LESS SOURCE FOR DATA: DripDrop 1800 OPERATION MANUAL( AUTOMATED BLOOD COUNTS AND [...] Normal 80 and above >32 mL/min Normal Lym# 0.7 10E3/uL 0.6-4.1 [facility] ([facility] NORMAL RANGES Age WBC RBC HGB HCT [...] HCT IS 5% LESS SOURCE FOR DATA: DripDrop 1800 OPERATION MANUAL( AUTOMATED BLOOD COUNTS AND [...] Normal 80 and above >32 mL/min Normal MXD% 12.8 % 0.1-24.0 [facility] ([facility] NORMAL RANGES Age WBC RBC HGB HCT [...] HCT IS 5% LESS SOURCE FOR DATA: DripDrop 1800 OPERATION MANUAL( AUTOMATED BLOOD COUNTS AND [...] Normal 80 and above >32 mL/min Normal Neut% 71.3 % 37.0-92.0 [place] ([facility] NORMAL RANGES Age WBC RBC HGB HCT [...] HCT IS 5% LESS SOURCE FOR DATA: DripDrop 1800 OPERATION MANUAL( AUTOMATED BLOOD COUNTS AND [...] Normal 80 and above >32 mL/min Normal Neut# 3.2 % 2.0-7.8 [facility] ([facility] NORMAL RANGES Age WBC RBC HGB HCT [...] HCT IS 5% LESS SOURCE FOR DATA: DripDrop 1800 OPERATION MANUAL( AUTOMATED BLOOD COUNTS AND [...] Normal 80 and above >32 mL/min Normal MXD# 0.6 10E3/uL 0.0-1.8 [place] ([facility] NORMAL RANGES Age WBC RBC HGB HCT [...] HCT IS 5% LESS SOURCE FOR DATA: DripDrop 1800 OPERATION MANUAL( AUTOMATED BLOOD COUNTS AND [...] Normal 80 and above >32 mL/min Normal Comment Laboratory test result [facility] ([facility] NORMAL RANGES Age WBC RBC HGB HCT [...] HCT IS 5% LESS SOURCE FOR DATA: DripDrop 1800 OPERATION MANUAL( AUTOMATED BLOOD COUNTS AND [...] Normal 80 and above >32 mL/min Normal MPV 10.2 fL 9.0-13.0 [facility] ([facility] NORMAL RANGES Age WBC RBC HGB HCT [...] Normal 80 and above >32 mL/min Normal ID Date Data Source [id number] 03/04/2020 11:04:19 AM EST [facility] Name Value Range Interpretation Code Description Data Rema rce(s) Supporting Document(s) Progress Note [facility] KBZNQo9zGxZHYiZl31/EVQpcLNDcj2CqFJerGCe0ZRsjBKMfL7SjACE8pE8pCRU8DYxYSfXwBbTyUVZ8 lbm [file] AgICAgICAgICAgICAgICAgICAgICAgICAgICAgICAgICAgICAgICAgICAgICAgICAgICAgICAgICAgIC AgICAgICAgICAgICAgICAgICAgICANCiAgICAgICAg ICAgICAgICAgICAgICAgICAgICAgICAgICAgICAgICAgICAgICAgICAgICAgICAgICAgICAgICAgICAg ICAgICAgICAgICAgICAgICAgICAgICAgICAgICAgICANCiAgICAgICAgICAgICAgICAgICAgICAgICAg ICAgICAgICAgICAgICAgICAgICAgICAgICAgICAgIC AgICAgICAgICAgICAgICAgICAgICAgICAgICAgICAgICAgICAgICAgICANCiAgICAgICAgICAgICAgIC AgICAgICAgICAgICAgICAgICAgICAgICAgICAgICAgICAgICAgICAgICAgICAgICAgICAgICAgICAgIC AgICAgICAgICAgICAgICAgICAgICAgICANCiAgICAg ICAgICAgICAgICAgICAgICAgICAgICAgICAgICAgICAgICAgICAgICAgICAgICAgICAgICAgICAgICAg ICAgICAgICAgICAgICAgICAgICAgICAgICAgICAgICAgICANCiAgICAgICAgICAgICAgICAgICAgICAg ICAgICAgICAgICAgICAgICAgICAgICAgICAgICAgIC AgICAgICAgICAgICAgICAgICAgICAgICAgICAgICAgICAgICAgICAgICAgICANCiAgICAgICAgICAgIC AgICAgICAgICAgICAgICAgICAgICAgICAgICAgICAgICAgICAgICAgICAgICAgICAgICAgICAgICAgIC AgICAgICAgICAgICAgICAgICAgICAgICAgICANCiAg ICAgICAgICAgICAgICAgICAgICAgICAgICAgICAgICAgICAgICAgICAgICAgICAgICAgICAgICAgICAg ICAgICAgICAgICAgICAgICAgICAgICAgICAgICAgICAgICAgICANCiAgICAgICAgICAgICAgICAgICAg ICAgICAgICAgICAgICAgICAgICAgICAgICAgICAgIC AgICAgICAgICAgICAgICAgICAgICAgICAgICAgICAgICAgICAgICAgICAgICAgICANCiAgICAgICAgIC AgICAgICAgICAgICAgICAgICAgICAgICAgICAgICAgICAgICAgICAgICAgICAgICAgICAgICAgICAgIC AgICAgICAgICAgICAgICAgICAgICAgICAgICAgICAN Cjw/qIZuW2pezHBvyxR8C7glAk7QTu7OLJ9lu0KcDPYlXAospuSnQcxYRxJqUOYxNkyJJxg0UDdhAR2O tOQnC5HnB8ZpRXijLE3FTGCoYPLxdKZdJGWwJJShEpO4JZWlJImqSM5DiSFwCSiwZEUgCNCbZrMqKFYa OSAwIFIgMTEgMCBSIDEzIDAgUiAxNSAwIFIgMTcgMC JBFCT2OQScUrNwDDvmSR2Zh8CgbVU9PGo+Fz0LST3vz8HlMUnyCQXzWV4nnv0HUFrSXuEuR3UqfxG5NU UqAOAnUm2SNPWgSBOroYQ3GYDeDLPPGqKxD1NfsI04LEQBZy4+BOtafvLqLvjTGtOoCDQgn9QyMAf2IH 8XAVBxCUt7lJIjMKPvZ7Fir7FsNa94VKLmNpuiP9bg GnSSwEJcpQWdBMZNLYXhvYChPrQbUjNkJIUxETudUHZXFOrLJeRuB0Zfq8OkKwW9VUFhHcQbEFaeETCa RYgwBK41wWsxBP9HBAKgVRQuWC04KZG2JBCqPq6TTw7UVtBkEF5qhf2REOBtUBWqGcnTTjc6AMggQT0N fLFnT7PlfKOtb9dZRoBwS1JEVGX9NVRbYn4UCSWiDo LbXGQpTWdgHV9bACWuIWCCyLolbzS0ST4LUX7nqaCsXT7ACkIjJy1qHk7FRfSnK1WnV9SoXMZaTOKQNC siIU4WMYzdZR9wYI1Di6MSaUHnyB9dbi8TTNVmYBGbCtwfyh0ATweiI2X0iWjsKRMnWytmRSJMNFwwXP 4CTGBoDFT1ZOPgWVMcRPHMTfSdG62fNB6BS7Eut38s PuZ1ZYRiGiGqELykUZ71cKebqrMvaETniQdsFQ6ZWr4+DQplbmRvYmoNCnhyZWYNCjAgNDINCjAwMDAw MFOzUBGoGuM1FcBbHd8JXZRoIGOtAALmKrNaVHIqAVDkZXtvPPTlQLZcMeQaSLEfQDTrET8KXnRlIYVd FVChGzTxGDLuQSGjvz1YKHAcXFRjIBI2WxKkLITuWK JkMUvtADRcESIqTACyOMBkMMUxJC5HNzEuXQEgEGJcDtSlZFDmARAgtl1AWIJiLHJgTdY6XSInTQVfVM ObMZgjNNAuXWP7Xeg3MINiHKLxLV9OCgHaUVPmVDdkUFRuEXYlNWGcif9LFPQxXTEzDIC4RYViAAJoJX DkMJemCUWeSBTjHQP0RYAaDCPqIY4SYrEyNPSpMDB5 ZsZmNRHlIHSuty4MBBNrEZMfURM2BEFbVNZzTIZtVKlvUOVjOVK6Awb1HHPiPGDnHE6CYqOtRYQlKAly EHAsBCDiVADchm6QTBDwNAWsMOKfPrYwFKVmBDRxDBlcGHMdCGMsBHG1GGIjCZUlDA5DPoEkXFVuJlUo QgRyMDAoCQEsck4TVZYkJXIdLrywZUAnPPOtJFWcRD ejOPFzCCFnCKL6PUWoRRVdUV8CBiCkNXNhCvU7HVDnELZgCDQcww3GVJQaRUAoZZStBRIlQPHcEORvRW deZZKjLIN8Dff7KTDsJMRdCZ9QBnJfPFSsKoBgYUPmBFVeLLYfqx0HOLEkRDJaAkW5WLWrHDVuCIViSR jbSRPvECB5XzBnWXZjQCUfHS1YAtLiEVQfHpaqFoTb NZMwJZCvle5WZFCfBZMqRTT7VRUqMHHrDWFwOYzmWXAsDSV7VMw0AWMbKYPtIE4HPuPrPOIgAvp6XLaa HFTcPBDtfq6WLEEfVBSpCBg3NhDnNPYpIPGzSFxzHRAgPST7YMT5BFLqAFChIO3FQhCzKSFxWDYqIiRp YQOeBQOucj2ZQONtDCX6BTDkGoQpYXPqZXYxKQeoSC CjJUZsIiC8UVKsCBHsHY5KMxZaIDVkAWW9LyxkQFTsTBKxtl9EVEUwKKD9ZEN4EROaMJVqJCJpLKatZB TrHRSnNVJwDNFrQENkMC8WGgGdYUTzJEP7CKkeALYuZJTxif5KGCYjKLW7YyP3HFRaDCYgUJQpHClhPC NvENOdMuH0RHWcATNxHB0PMoHvSBzrDRNVKjb7XWzn N5v4GXT7Ie4XU6Dpm5PyWHYoSZMBVKtnZL4ojdAhYVXcQs9QG1oUQhseRMV8WUD4AGO2CiRnOeSsFcMg XcytMDGhPFI0MwD2GJ6cUDUqWfJ8EHhaXZMzXYLvO9FnYdJ1F8NvQSZ0UGdwZTKeRxQbID7KDt9QLnW5 WXL7zPMgBy7WWIQ9AhmWPvCyXN0WXOw= ID Date Data Source [id number] 02/26/2020 05:20:01 PM [facility] Name Value Range Interpretation Code Description Data Rema rce(s) Supporting Document(s) Progress Note [facility] UUYISw6tCaIARvAm33/VDPdhTKSbl1QaZVcxPSe3WBzgQKUfO0GpLAQ8xQ7cPVG2AHgRTiBuStNgJbG8 lbm [file] ICAgICAgICAgICAgICAgICAgICAgICAgICAgICAgICAgICAgICAgICAgICAgICAgICAgICAgICAgICAg ICAgICAgICAgICAgICAgICAgICAgICAgICAgICAgICANCiAgICAgICAgICAgICAgICAgICAgICAgICAg ICAgICAgICAgICAgICAgICAgICAgICAgICAgICAgIC AgICAgICAgICAgICAgICAgICAgICAgICAgICAgICAgICAgICAgICAgICANCiAgICAgICAgICAgICAgIC AgICAgICAgICAgICAgICAgICAgICAgICAgICAgICAgICAgICAgICAgICAgICAgICAgICAgICAgICAgIC AgICAgICAgICAgICAgICAgICAgICAgICANCiAgICAg ICAgICAgICAgICAgICAgICAgICAgICAgICAgICAgICAgICAgICAgICAgICAgICAgICAgICAgICAgICAg ICAgICAgICAgICAgICAgICAgICAgICAgICAgICAgICAgICANCiAgICAgICAgICAgICAgICAgICAgICAg ICAgICAgICAgICAgICAgICAgICAgICAgICAgICAgIC AgICAgICAgICAgICAgICAgICAgICAgICAgICAgICAgICAgICAgICAgICAgICANCiAgICAgICAgICAgIC AgICAgICAgICAgICAgICAgICAgICAgICAgICAgICAgICAgICAgICAgICAgICAgICAgICAgICAgICAgIC AgICAgICAgICAgICAgICAgICAgICAgICAgICANCiAg ICAgICAgICAgICAgICAgICAgICAgICAgICAgICAgICAgICAgICAgICAgICAgICAgICAgICAgICAgICAg ICAgICAgICAgICAgICAgICAgICAgICAgICAgICAgICAgICAgICANCiAgICAgICAgICAgICAgICAgICAg ICAgICAgICAgICAgICAgICAgICAgICAgICAgICAgIC AgICAgICAgICAgICAgICAgICAgICAgICAgICAgICAgICAgICAgICAgICAgICAgICANCiAgICAgICAgIC AgICAgICAgICAgICAgICAgICAgICAgICAgICAgICAgICAgICAgICAgICAgICAgICAgICAgICAgICAgIC AgICAgICAgICAgICAgICAgICAgICAgICAgICAgICAN CiAgICAgICAgICAgICAgICAgICAgICAgICAgICAgICAgICAgICAgICAgICAgICAgICAgICAgICAgICAg ICAgICAgICAgICAgICAgICAgICAgICAgICAgICAgICAgICAgICAgICANCjw/gCSdN0pnpFLfdvG5K3yp Ry2JCh2IKZ5wy8GaAWYqILwdgxSyCqlYRxOuQYGqBe lHFul4AEpaGP9NoSGxD5FkH0OyQIarZG1ALTVwPYXluBHfWFPxNTRdFpM5WKQjDWtuHF8ReWLlGFnfDR BcAIGhEY1WQHXwL480suOdCZ5JYy3KSeUcVI6ngi6NDTidRPLbOtqSXfu9JVlaRY8ElGTdpNOyBGJeUK RJXoVtH9llg4IcBgPtZBBLSDkiUO9Td5DhiIYtXAy+ Gz7NLO3oq0KsLFfnORRdLY1eip7TAUpQQhHqY3SqkRklMXEih6alBQBsYE9bmZNaRNI4EGXpyP4gMZWT DQ7fBSEomoEeTTVHHuOlfNMyZb1lOS9nEWDpTBJkSrIxDAYKUR9OUFZsDPVdaNXgKQAlFOUKXP5IROor QYC2RLGhauKhbYVuLFgkRQ0ESTUkvdVaWPpqHJQHWG o+Ki3QCN2hj5LrVPqtOZEbMQ0ukb4JQRjGGgUfA2R9hPYfG6N2JJduQn7UOIWnFHYqBMdxOROHEVmvXJ 5WHW1jasB2EJ8WrWJlGPIrUTDpwZZjRHt8Q02siAPgDNumVL9BSYX+Migue+Mw7MXDVeBRKjVZRuZxEiEH WJBkVqC4WqF2ULe2MgD7CxSP15sRjjqeMjERcuTX9O CV9sLGYeNNBTOH9OcJHehN3wkzBkOXDtKLOBEeYiU50zwQVtAFIrCZL2VXQnGe6OOSWzU0BesbSxuIva zvYoDRPrJVZJMJ5VSMvoaxRwxUUqfKjvDQ98pKijOP0DYl4TUwUeFE4ogv6JvQQaGc1WSGUjXy7RIZIc WNVoXLXeRAF1YHAhAwJkSKlbSRQcYFTkMVS7AYQxEB YkXI2MIgQaIEJbGXdbAFMeERDqTPFtlx0OPOBgQPNgWUnfQDSuEKLaATIfCMbaARJnFEVlZTG3JBIcKZ QgLX0KBaZiRNTvPIIgBslyAVDxQQDswv7WDNJdGITyLnD0RuReUDLfYJRhICdxAFRdLFGhBoTaUOOmSP QlKX8CVyRzXLRcQROsTLxqQIFwZFBcdh5MMTBeLAFi ZxH0NIUuYSHqXWSjRZexGPQrWEE3LOC6HQBuHUJaNW3FXdLuDLPzOZJ6EpprRNUlLBOonw0DNUOeFXGf HMwbWOAoJLHkSFJzDGvfCRPcCAE7YosaCUEkTZJnVR0IYiCgJNAgITZ3HYIrAENiQNQrfj0ZFVDtAXCp FbynQONsDSVpWOMoJEvkHBUfBKH3MQF1GUSdCTWzOA 1NQnSlQIWwDMkyQZIkLKQmNXNjrt5QFYJzUCWbSlV6ZTUuCPVoTUQhPZdhPPOcKKE9SJG1FTRtIPFmCE 8RStOpZSQwKNtlCCOfKEDyMZSetn9WUIJuLXBfIWG6AlHeYLDfRLDnDIt7twIdiBDrWHb1JF1DM1Xamd EsQfDHHm0Wi048RQIzEKBpOw5YC6knKp3uFTHdITUB Mw5DKLd0EqKqQUN4RmX0FqBlPAJ2XyOuOABaNeqaNKKzTnOnTsi+USy7QDZnMpscSmcyELPvUBklFIBb VOSiOBL1RERpDSMqND4jJRWHPt0+DOrdwUEloQuoRXYSUsR1DWw9QEsiZAHYIb8M ID Date Data Source [id number] 02/19/2020 01:59:55 PM [facility] Name Value Range Interpretation Code Description Data Rema rce(s) Supporting Document(s) Progress Note [facility] XVFHYo6aMsSRIwIt32/DDAcpQMVrd3EmJIueULg7ZTugRFZwS3KiQYJ0rH0eMVH0UFaQWzXxBzExWoHk lbm [file] Q+PN9cLRp+Bs4Ue8TdmrC0zpJcZAcoEMO5Ff4WBIHOS0DLSm== ID Date Data Source [id number] 02/19/2020 10:53:47 AM [facility] Name Value Range Interpretation Code Description Data Rema rce(s) Supporting Document(s) Progress Note [facility] ZTJLIs3tObRMBvAg97/LRDyoDFMxq6KrTWecUPn1NTfgGDMgI9LiMUG5rL2jYEQ2UUiWOiUaHmIjSvBm lbm [file] AgICAgICAgICAgICAgICAgICAgICAgICAgICAgICAg ICAgICAgICAgICAgICAgICAgICAgICAgICAgICAgICAgICAgICAgICAgICAgICAgICAgICAgICAgICAg ICAgICAgICANCiAgICAgICAgICAgICAgICAgICAgICAgICAgICAgICAgICAgICAgICAgICAgICAgICAg ICAgICAgICAgICAgICAgICAgICAgICAgICAgICAgIC AgICAgICAgICAgICAgICAgICANCiAgICAgICAgICAgICAgICAgICAgICAgICAgICAgICAgICAgICAgIC AgICAgICAgICAgICAgICAgICAgICAgICAgICAgICAgICAgICAgICAgICAgICAgICAgICAgICAgICAgIC ANCiAgICAgICAgICAgICAgICAgICAgICAgICAgICAg ICAgICAgICAgICAgICAgICAgICAgICAgICAgICAgICAgICAgICAgICAgICAgICAgICAgICAgICAgICAg ICAgICAgICAgICANCiAgICAgICAgICAgICAgICAgICAgICAgICAgICAgICAgICAgICAgICAgICAgICAg ICAgICAgICAgICAgICAgICAgICAgICAgICAgICAgIC AgICAgICAgICAgICAgICAgICAgICANCiAgICAgICAgICAgICAgICAgICAgICAgICAgICAgICAgICAgIC AgICAgICAgICAgICAgICAgICAgICAgICAgICAgICAgICAgICAgICAgICAgICAgICAgICAgICAgICAgIC AgICANCiAgICAgICAgICAgICAgICAgICAgICAgICAg ICAgICAgICAgICAgICAgICAgICAgICAgICAgICAgICAgICAgICAgICAgICAgICAgICAgICAgICAgICAg ICAgICAgICAgICAgICANCiAgICAgICAgICAgICAgICAgICAgICAgICAgICAgICAgICAgICAgICAgICAg ICAgICAgICAgICAgICAgICAgICAgICAgICAgICAgIC AgICAgICAgICAgICAgICAgICAgICAgICANCiAgICAgICAgICAgICAgICAgICAgICAgICAgICAgICAgIC AgICAgICAgICAgICAgICAgICAgICAgICAgICAgICAgICAgICAgICAgICAgICAgICAgICAgICAgICAgIC AgICAgICANCiAgICAgICAgICAgICAgICAgICAgICAg ICAgICAgICAgICAgICAgICAgICAgICAgICAgICAgICAgICAgICAgICAgICAgICAgICAgICAgICAgICAg ICAgICAgICAgICAgICAgICANCjw/jURwB1xclROljsO0B6fpVx7AXm0BVG0ts6RbEGWzPCkkopAhVouY HyAnVFXhSelBAla0RErpPG3FmHMcJ4UgN5XmWZlvZV 4PZMQiZNXrdLQcBHTfYQNjMqV3VTGnPXriMS1ZuPEmZVoyBTIaUCErJiTlLSAdUMUaMSHyADVwHOQLIB IxVFUfEnZpVZBvHBQoNEjzUTZNFQQ5XFLlMcBiBGEiCIUbSF6FHBZyQ972qsMqMV8UGm6BNgApBT8xcp 0EEPGnHWDlUreQFfn8PCtdXC4ZwVMhiRY0TzAgERRK FfLzH5kmf5BnGTQbMIVYOMwsGR4Sq6PbzQLiCGs+Px2GUG7ef0QkZAg7HlAiWT8gsh4FEEoCPyTjA3Xv pKttATGam7qmZRYtRF2muFNnBLJ9GU2cSCurG1vbbJpvbvzeVSUmDJQbKWVjQtZgXmExIVTmGXahFZWN QUzOOtQnF1Ens4WgAhE6BJFbBxWxPWlqZQLhIRalVE 76uJfdNA7UOJCyMYAtUF60QZNuWYUnRo7XDl6ZXxUiSR2qmz7BSPAyLQLdRacAHrp2YZmoEZ8DnBSiO1 XtaLFcl1jTSzHqN6NERYN8WRZsRa9JROSqCuVmMHGiSGneYS6pSRViMYAQrYspijD1ZK9ODE4tpwCyXF 4LYcGgXe1hHi5SZqTrD5RjM8DwLPQlMHUTEEvuYH5Y XSmiRM7nCJ1Cn0FQcEVrwL7mkg9BFQDqRVLtSbornd8WJcrjZ5H7yYviQBSxOSPuWGPBZDsiCR0RKVBt CIY9RJI9HXOxPIDOIqFyS52zUS8YA2Aas04dLnA6FNSdOdYmKXpfSK87gWzynbWqbATfkHcqOK1OVf7+ DQplbmRvYmoNCnhyZWYNCjAgNDQNCjAwMDAwMDAwMD KdWeU1UuPxQe1QAXPkNFOyXDTjRwIpYPCjYXKaSPfgCWKzTSYkOqZ9HMBbYOMpTM8JKgWdEZGnXQGcQX mcWCCqIOGpfd6QCDBrLVXpDLZ7BnZwOSCxZJSiZUluPJDsPBInKxExETDiMPHyYR8ZVyUaERJgNVK7JX wgAVXkCVCryb6THGOaBLReKzZ7NzSdHJXjIXStAUub WHTjZFO5KuQ8WCOyNVItFO2MZtMoTKFiLUwoVPKaSCYfBRFtsf8JYPFrVDFgCSW5DHQlPNZjQLLpUTrn WQAkLHJxWGL4FKAfABCqRI7LUaQxSWFhTCX7GrEbVKRwQFYkyd2DOMNnLTRzWHRqYJCwRKKkSCVjEWln FDNsTGB8DuZnQKNvDQOyOY7PTrQsLQHlATlhGIBsGO SnWRQeaa1NBPCsVTKcPJP4FoMqFUMuIKOnAQrmZGYaSIXnDTF0YSOzZSDjUW4UNqTgHQNvGsSkMOMiQC BvGWYqri0YXQUiYMGcMxv3SEJyKVQqTAInHJpaAYMjTPU0ENhiYBGiSYAoHW8ISjQsRWZdFaF4LdYzAI MnFZHejo5BDEErURLsKQjiUVTuWZEtTAMcUKgqYLWe TAE4FSyvYMPqIDEzSJ4EQjRtRACtDwSwQNvsHOIgKMYzfc8VCOCgDBYhKdZ6ZHXrEODzKMKxNKnaHOBt MFI6AuObQGSqHVZvJA4VFzJrHJEoKye1QpMdAEWfOHLwzc3WNNIuHRSxFsMwNUZkYIGjNVIqRJieMGQh HXU9ENBoTOFkVPEbXV1AWpZuELMpWfchSlZwGVFgSH Zdsq7RLHWfRKTsCZK1UXDbSOMlHKQuHZjvJUTqLSS2AIG7ZVEiRDEzGI9CXoBbUWNbEzn2NAUkLELgVG Oubx2EPVTcISE2ZQvwACOtJEGeJFQxWIyfHAKaFVHoYJIiYETmNMKfOM3KVpGaCUXuUXRhCQKeUEAwZP Zdrs4VUJQiAFP9ZnTeVMTnHVMpBKBuZKngFDUeCXNh TTY8SMLpGUCxRL8VUnKyPKXhTVO1UHLcVDUjWMMswk2IJVSfFNK2UdMeSYEuMFIxZRSeOYygDRPfRIW5 UJSlQGPiIAOqAX5CIjEnMCXoISC9FWXsBINhZMWgyg7CETPkCTN6LRyzVMJtQUGqAHPuHYz7blVvhNGb AMt5FQ9BI1OatwJkKBPIDm5Bj013ERDqPLHqEu5MJ3 ukAn8fWPBiVUQAVv5JVZo3SIDrWJBiBhRcAmI2DkG0W1Z9RAM1Z2OrIbM4KAT6Qhu+IDwxNGExMWRmNm BfOuqkLeWcRxd6CBlfPiXqYIUoYIFvWV6pOOTFYh5+GDdbvTKsxDbnPKGSEvB1SRx4KZfiGSSXQs2P ID Date Data Source [id number] 02/12/2020 04:19:35 [facility] Name Value Range Interpretation Code Description Data Rema rce(s) Supporting Document(s) Progress Note [facility] SGJYRa9xHoPJUvTw34/CYMceXAEhs5UoPPdzGUw4AMuuVLTaY3HyOFM3yH0aDPU9JVnWGcBmBfMrFwO7 lbm [file] AgICAgICAgICAgICAgICAgICAgICAgICAgICAgICAgICAgICAgICAgICAgICAgICAgICAgICAgICAgIC AgICAgICAgICAgICAgICAgICANCiAgICAgICAgICAg ICAgICAgICAgICAgICAgICAgICAgICAgICAgICAgICAgICAgICAgICAgICAgICAgICAgICAgICAgICAg ICAgICAgICAgICAgICAgICAgICAgICAgICAgICANCiAgICAgICAgICAgICAgICAgICAgICAgICAgICAg ICAgICAgICAgICAgICAgICAgICAgICAgICAgICAgIC AgICAgICAgICAgICAgICAgICAgICAgICAgICAgICAgICAgICAgICANCiAgICAgICAgICAgICAgICAgIC AgICAgICAgICAgICAgICAgICAgICAgICAgICAgICAgICAgICAgICAgICAgICAgICAgICAgICAgICAgIC AgICAgICAgICAgICAgICAgICAgICANCiAgICAgICAg ICAgICAgICAgICAgICAgICAgICAgICAgICAgICAgICAgICAgICAgICAgICAgICAgICAgICAgICAgICAg ICAgICAgICAgICAgICAgICAgICAgICAgICAgICAgICANCiAgICAgICAgICAgICAgICAgICAgICAgICAg ICAgICAgICAgICAgICAgICAgICAgICAgICAgICAgIC AgICAgICAgICAgICAgICAgICAgICAgICAgICAgICAgICAgICAgICAgICANCiAgICAgICAgICAgICAgIC AgICAgICAgICAgICAgICAgICAgICAgICAgICAgICAgICAgICAgICAgICAgICAgICAgICAgICAgICAgIC AgICAgICAgICAgICAgICAgICAgICAgICANCiAgICAg ICAgICAgICAgICAgICAgICAgICAgICAgICAgICAgICAgICAgICAgICAgICAgICAgICAgICAgICAgICAg ICAgICAgICAgICAgICAgICAgICAgICAgICAgICAgICAgICANCiAgICAgICAgICAgICAgICAgICAgICAg ICAgICAgICAgICAgICAgICAgICAgICAgICAgICAgIC AgICAgICAgICAgICAgICAgICAgICAgICAgICAgICAgICAgICAgICAgICAgICANCiAgICAgICAgICAgIC AgICAgICAgICAgICAgICAgICAgICAgICAgICAgICAgICAgICAgICAgICAgICAgICAgICAgICAgICAgIC AgICAgICAgICAgICAgICAgICAgICAgICAgICANCjw/ vWOiD0obhOAtjuB1I2kuZd0MWl0WRK6bg2JmPCViFZbackJdNbqUNdPjIJQcBikOInc9DTtaZC6KuSVb K7YmD6HgEKtlIX0UUQOwWVCrtMJcEOOhMYQyTxT6UBWlJUizAU1QzLKrYUatMEFiSDMiSF6EBJYeE960 qnDhMI5YZh2CHjQtWX7dan5IUKjpNKVfEmdMEsp8KX xgHY6OhUVoqQRnNQPcZMZKOnJdE2hvz7QgGgRnLDSLVRctZH5Bi7SryISqIQt+Cu3JSH9ec2KlSNhqBR MtXD6xbj0YMRvBXhScS2PsvFwmJSIzn7ncIVHrFX5alAGoUTK9PSJutI0eSHUSXI3mDEIduiNoXXPGMp AezAMvMn0cPF6yEUPbNKZhJmLnQIVVYT0QCDYzPUEz pEBmBANxGQPDAJ4LDGfiJTB9KRAjgdPonKEfSVhuSW7AENVjmoRpUZjqIXMHQDa+Du4ZOK4rx8QqROse VOItBK2qhu5HVDzEPgAaM0I2cUAcB1E3YZpsAf3FDGLuGICbXGpyCNGSMRetSB6MSZ4mdvV8QW6CkBZk TXUkEJRxyPBbYJs0V71syWHoQLsfWG6YYIA+Migue+Pg 9WBKNiZUMqWWIuNwKtLTYJSpNmS9KrW8UIr0OtI7FkEC45xTmcwiXmTXoaMD7QRB3hIGUgZYLCTP5SxG OnbE6nrbTlEJIwZZNAQjWdN43ayFQlOJZbLWM2LCDkZg5FEIZsG0UcpaAblVerubBpEPEqUNAYIB0WCZ wexcWgzDPyoJgtMK56oOeoJI4CRk0XIxHmLB7nqb1S jGLiPj6MJZKkXz8HSWCbPGOfUFAjUKT0JSSkCzCuMZpxQEUqTCOwEJG0DIRyVBMoSG5PNkSmQLBpEWv8 OLYwIIMrIBBnxi6UYYBxACGiYUXtYFNgFYQgBATiRHiePHMuTUJuBBC8GZLyWDWiZQ3HYjTiIDRbBPNs PzpwGVCtKBVqby2ZZOKrHPPhLqB8RBLeIKYaSJClYC jaKPXnEHHeJFCaXKFnCTZuFU2MXeUcUCPcTIX9WYIpIXVsQMQonx3FVVVkGXUmVyb4EyXpIGGfUAImXR mlYVOnPNQ8IaW0YZYnFCJoLN2ANyNoWKBsMCM2DvSlRBYnAILvyw2EUZIrNBBlLEMpKaFmMRJxVWDzDQ jxARYfVSD1UFm4MHGqLPHrSO8WTeQxUMPaBNB1BTYe KPUkEQSqfh0BAHUeBJZvMzHmBwMsMVEiMVOjKEohJUEnFZV5PqEkFSYiHWHkKE2PLtFvEHIoGRbdGIyh YPQwRVOigm4EJPArTFXpBji0VQKcNQArUSNqHYadLLUjFZA1McS0LGChWYGlVT1OOaUpDOYiKVhzQXia CBMqIJOkfa2KSNRhFYToSMO7WSMsFJOyEXDvSYp8iz NurWWeDBj4XF5LH6XbwkZqXfTRBg9Ry386EOXmSYWjNu5TO9duNf7dFZBlWOOXOw4BVPu5UIY8Q5EbKN qzOYLaVHK4G0U1ReswSMQ6IKDnDKZdZKZ+LAimQSV2BREuE7C9BqK9ADvhLeGwXZI9CQfaGHK9GHM6KD 0fWVARUh2+FLsyvCCxpExaUHIHJxM7Mey6QMigJLUEMd9X ID Date Data Source [id number] 02/06/2020 07:04:00 AM EST [facility] ([facility] Name Value Range Interpretation Code Description Data Rema rce(s) Supporting Document(s) Glucose, Fasting 95 mg/dL 70-100 Normal (applies to non-numeric results) [facility] ([facility] Blood Urea Nitrogen 25 mg/dL 7-18 Above high normal [facility] ([facility] Creatinine For GFR 1.41 mg/dL 0.70-1.30 Above high normal [facility] ([facility] Glomerular Filtration Rate 51.2 Normal (applies to n on-numeric results) [facility] ([facility] <content>Units are mL/min/1.73 m2</content>
<content></content>
<content>Chronic Kidney Disease Staging per NKF:</content>
<content></content>
<content>Stage I & II GFR >=60 Normal to Mildly Decreased</content>
<content>Stage III GFR 30- 59 Moderately Decreased</content>
<content>Stage IV GFR 15-29 Severely Decreased</content>
<content>Stage V GFR <15 Very Little GFR Left</content>
<content>ESRD GFR <15 on RESERVATIONS CLERK</content>
<content></content> Potassium Serum 4.9 meq/L 3.5-5.1 Normal (applies to non-numeric results) [facility] ([facility] Sodium Level 142 meq/L 136-145 Normal (applies to non-numeric res ults) [facility] ([facility] Chloride Level 110 meq/L 98-107 Above high normal [facility] ([facility] Carbon Dioxide Level 29 meq/L 21-32 Normal (applies to non-num estela results) [facility] ([facility] Anion Gap 3 meq/L 8-16 Below low normal [facility] ( [facility] Calcium Level 9.5 mg/dL 8.8-10.2 Normal (applies to non-numeric re sults) [facility] ([facility] ID Date Data Source [id number] 01/31/2020 11:57:00 AM EST [facility] Name Value Range Interpretation Code Description Data Rema rce(s) Supporting Document(s) White Blood Count 4.8 10 4.0-10.0 [facility] ([facility]) Hemoglobin 10.1 g/dL 13.5-17.5 [facility] ([facility]) Hematocrit 32.4 % 42.0-52.0 [facility] ([facility]) Red Blood Count 4.57 10 4.30-6.10 [facility] ([facility]) Mean Corpuscular Hemoglobin 22.1 pg 27.0-33.0 [facility] ([facility]) Mean Corpuscular Volume 70.9 fl 80.0-96.0 M EDENT ([facility]) Platelet Count, Automated 185 10 150-450 [facility] ([facility]) Mean Corpuscular HGB Conc 31.2 g/dL 32.0-36.5 [facility] ([facility]) Red Cell Distribution Width 17.0 % 11.5-14.5 [facility] ([facility]) Nucleated Red Blood Cell % 0.0 % 0-0 MED [facility] ([facility]) ID Date Data Source [id number] 01/31/2020 11:57:00 AM EST [facility] ([facility] Name Value Range Interpretation Code Description Data Rema rce(s) Supporting Document(s) Glucose, Fasting 101 mg/dL 70-100 [facility] Blood Urea Nitrogen 29 mg/dL 7-18 [facility] ([facility]) Glomerular Filtration Rate 54.3 [facility] ([facility]) <content>Units are mL/min/1.73 m2</content>
<content></content>
<content>Chronic Kidney Disease Staging per NKF:</content>
<content></content>
<content>Stage I & II GFR >=60 Normal to Mildly Decreased</content>
<content>Stage III GFR 30- 59 Moderately Decreased</content>
<content>Stage IV GFR 15-29 Severely Decreased</content>
<content>Stage V GFR <15 Very Little GFR Left</content>
<content>ESRD GFR <15 on RESERVATIONS CLERK</content>
<content></content> Sodium Level 142 meq/L 136-145 [facility] ([facility] Creatinine For GFR 1.34 mg/dL 0.70-1.30 [facility] ([facility]) Chloride Level 108 meq/L 98-107 [facility] ([facility]) Potassium Serum 5.2 meq/L 3.5-5.1 [facility] ([facility]) Carbon Dioxide Level 30 meq/L 21-32 [facility] ([facility]) Anion Gap 4 meq/L 8-16 [facility] ([facility] Calcium Level 9.1 mg/dL 8.8-10.2 [facility] ([facility]) ID Date Data Source [id number] 01/29/2020 12:27:46 PM [facility] Name Value Range Interpretation Code Description Data Rema rce(s) Supporting Document(s) Progress Note [facility] ILFYFv3aRiIVRoPh97/AGIghOVMzl1WrPVegVWb6TNjiHIEkD7QuRXI0zT6vILT6SJiKYfDlOmIhWrXx [facility] [file] QpD2S5FltlVJahNtQ9NMUvGpEbFZ8XJx3NSpV1ZRH7sEDdAi7ILDJyViyRLsOkKM3EQXa= ID Date Data Source [id number] 01/16/2020 03:31:16 PM EST [facility] Name Value Range Interpretation Code Description Data Rema rce(s) Supporting Document(s) Operative Note [facility] RNMPIr1uKzPPTfBl62/WSAerZWRog1SrZMkaGGd3UWxsWZWqM9AdTEC9kL1rHIZ1TPmSZwBzAiYfMES8 lbm [file] JhKa5JGWUaFDHXGoImLJ4FORb= ID Date Data Source [id number] 01/16/2020 09:44:19 AM EST [facility] Name Value Range Interpretation Code Description Data Rema e(s) Supporting Document(s) History and Physical [facility] KEBMJl9eTcVOUvHk51/FMKeaOHXsc8FtRZwdUDe8ORdmSXZeT2IyAJL7fV8sRWC8UOpUQmSvJaMuDDG9 lbm [file] ICAgICAgICAgICAgICAgICAgICAgICAgICAgICAgICAgICAgICAgICAgICAgICAgICAgICAgICAgICAg ICAgICAgICAgICANCiAgICAgICAgICAgICAgICAgIC AgICAgICAgICAgICAgICAgICAgICAgICAgICAgICAgICAgICAgICAgICAgICAgICAgICAgICAgICAgIC AgICAgICAgICAgICAgICAgICAgICANCiAgICAgICAgICAgICAgICAgICAgICAgICAgICAgICAgICAgIC AgICAgICAgICAgICAgICAgICAgICAgICAgICAgICAg ICAgICAgICAgICAgICAgICAgICAgICAgICAgICAgICANCiAgICAgICAgICAgICAgICAgICAgICAgICAg ICAgICAgICAgICAgICAgICAgICAgICAgICAgICAgICAgICAgICAgICAgICAgICAgICAgICAgICAgICAg ICAgICAgICAgICAgICANCiAgICAgICAgICAgICAgIC AgICAgICAgICAgICAgICAgICAgICAgICAgICAgICAgICAgICAgICAgICAgICAgICAgICAgICAgICAgIC AgICAgICAgICAgICAgICAgICAgICAgICANCiAgICAgICAgICAgICAgICAgICAgICAgICAgICAgICAgIC AgICAgICAgICAgICAgICAgICAgICAgICAgICAgICAg ICAgICAgICAgICAgICAgICAgICAgICAgICAgICAgICAgICANCiAgICAgICAgICAgICAgICAgICAgICAg ICAgICAgICAgICAgICAgICAgICAgICAgICAgICAgICAgICAgICAgICAgICAgICAgICAgICAgICAgICAg ICAgICAgICAgICAgICAgICANCiAgICAgICAgICAgIC AgICAgICAgICAgICAgICAgICAgICAgICAgICAgICAgICAgICAgICAgICAgICAgICAgICAgICAgICAgIC AgICAgICAgICAgICAgICAgICAgICAgICAgICANCiAgICAgICAgICAgICAgICAgICAgICAgICAgICAgIC AgICAgICAgICAgICAgICAgICAgICAgICAgICAgICAg ICAgICAgICAgICAgICAgICAgICAgICAgICAgICAgICAgICAgICANCiAgICAgICAgICAgICAgICAgICAg ICAgICAgICAgICAgICAgICAgICAgICAgICAgICAgICAgICAgICAgICAgICAgICAgICAgICAgICAgICAg ICAgICAgICAgICAgICAgICAgICANCjw/nYUtU3aolO JkcpO1V4bfAg5RRs0BRO4rr8MuFJIwLPmznzKmWnnZVmWaQVIrNyfCGax0WZqsMH2RwIWdS2BuE8DmVM vlWT9LCMQoGEQofOKqRWUnYTXtRfJ4DTQqXWoeAV4BtQAnGEcjKHFfKWAkBeViJOWoANJvKCBvCBUjUZ FHBKBwUESvDeRcMWQoPCSlEN0CTUIlR187ssUdLu5B Rm0LVmFaEK8aww1HYkBzXDLcSxoXYkk8INscZA5ZeMZxhGXbGxCtJGTSCeBaF7hcf8FmNzOsULCCQPep PJ8Sz6WysEIhJGc+Hy5EOO7do5PxCFvsEhHfEA7kyq0UYFmVMfQpM4PtaAvqBYfvDOHuvIAVcFWjxLNw SFimZSSEJKJrmTWyJF4kQq9vCUHtEIN2MxC8BOCXNA 4IDOChOQScrGXmLCCfVFNEUC7YCPicSKL2QLZmqjFpkZKqQMqyMA9KBCQdswHzOkRuWCNUSPj+Pg0KZW 6yb6QgUUgoOzLsBO5obw7RLAbHUcVyT9F0bSLjL4P8GMfyMc6VIATjQNGnGbQcPLHTLRdmAU6FTQ0yqy Q6DW5UdBChFXRsHWSdiZJhEZn6V43leKToEKkrOQ7P ICA+Migue+Gt0VJPOmCCVmXWFbMrWtWIANMdOlD3KgI0YTz7NhN7NmQC49vVvrbuYaLTcyEJ5OIM5xVJIf ZHHTOV7XsFIamK9bjfMyVYAoLRBKOlFlK16yoITyDMRxRQN8ZPZqQj1BXHNwT3LygeIbcFomvrGcNORi BDUTFF6AWUbclwHetXTmzNufSA59dGkkVY3TSw8CLx ApIA3rdy4WfOZlIb3AQUBwOE7GSXSkSRMaRUQgMJA4IALhIgGnIQahOPObROFvTZP4AJVeKPCtKK9COf DgCRSeCbZvJaajZWWrHXNopz3ZHNNhDFKuAWIcVKCmBEHxLRIxWFcyZSAxNOTrAKV7WDBiMPZiYO5RQe BfKGDxBFNhJvAwMTBvGNBrea6BAIBtWTFqNnLfFNCg YQWxVNIuFWdiEURaZNG5NAPqGHWkVBThDQ0TCrWnMNLyUVLqQDrbQHNwICWqlo3MYQZdDAYaEUC9ARTt TOKfQJIdEQqkAYHdXEI5Wqv0FOZpDPTnUF8PDeBiRFYxMOD9SCVdUXGmNEDmio9TNIKuVTYqNPQfSqGg RFHeIQPpCDdsOJWwYAMoQzr1QQTcEJFfUF9JTcYyWC AwRDA1PCJsHFVjAQSlkk5FCSBuJLJpSCDuAFUhOTZtRVRtFXcuVSQeYSX5UgSoGMTsMVXzAE7TTgSsDN RvCJK3HkWpNMKcOUFtkp4QMNYxAJIlVGa3QIChWHAsTPYmHRlnPWXkAUM0JQCuHSPyQRCmBS2ZOiRmXS EeMMzaOONtSJVgPCTpwb3OHBZwOTVoLmWkWyDbUDAu LJKlQPktSFNfFCZ7WSHeMMCcGDXfEL9HVwKkMVAmLAryWrHsSEGqBMYrvj5KQPYkZXXeJDB4MyHsQCSg VMNfVXydOTVaYBB5QeOcYHRcLCUmWE1XVfTsSAZzIhLkHcLhLZGtFXMmdo7RVYZlSVScIFS6MqSdEJZm AWSzOVuyHVKsTFBtCwPbUOReQNOaSU7OBiWkWQZwPb W4CXRiPUVwSWQvkl2RNPJrDPZgBTHxLpTzTIRcTPDkTHotWZLaEQToNUnsXPTfXKPpRV1VOoNyFEKhPo WgEwaqFIKgSKItup8JHEBqLLZdVyA6YhWlNSEnYLBtOEyvAIItITMcYwbsFUUhSKQfNI9QFdCoSGYeAd AwJAFhIGQdXJJjcn2CHNVvBEAjQHBlKxXgOJJjUROb RBlpBASzINP8ZSF2IICpMAQbXB3LNiXyQXetWBQFQjq1VKrcR4z2QFFoHP3JJ4Kez5KfKdcqZKBXPYme HZ3hhzKnBQYuIy9FL7xCIknhMjR1BfLeGAY2ILCiHpP6SIBnUCA5ByegCrWfZUDiFG6iXEVqBjU8ZGW8 KYa6MVJlFYt5ZWZ9NRuqJRO4WRJuJvR8YmSxCA3GLy6XAwL3XCP8kTZjVi3ZNfZ3RLNXLcFrJV7MZGm= ID Date Data Source [id number] 01/18/2020 07:28:00 AM [facility] Surgical Pathology ReportName: Prosper JONESMRN: [id number] Number: [id number] Date: 01/16/2020 00:00Received Date: 01/16/2020 11:56Physician(s): GRAYSON PINZON MD SHAPIRO, OLEG, MDSpecniki(s) ReceivedA: Right lateral wallB: Posterior bladder wallC: Left lateral wallD: Left lateral wall lesionE: Posterior wall lesionF: TrigoneG: Bladder domeH: Prosthetic urethraClinical HistoryBladder cancer.DiagnosisA) BLADDER, RIGHT LATERAL WALL, BIOPSY: 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 UNREMARKABLE MUSCULARIS PROPRIA PRESENT.C) BLADDER, LEFT LATERAL WALL, BIOPSY: DENUDED REACTIVE UROTHELIAL MUCOSAAND MILD CHRONIC INFLAMMATION.D) BLADDER, LEFT LATERAL WALL LESION, BIOPSY: HEMANGIOMA. REACTIVEUROTHELIAL MUCOSA. UNREMARKABLE MUSCULARIS PROPRIA PRESENT.E) BLADDER, POSTERIOR WALL LESION, BIOPSY: FOCAL UROTHELIAL CARCINOMA INSITU. UNREMARKABLE MUSCULARIS PROPRIA PRESENT.F) BLADDER, TRIGONE, BIOPSY: REACTIVE UROTHELIAL MUCOSA AND MILD CHRONICINFLAMMATION.G) BLADDER, DOME, BIOPSY: REACTIVE UROTHELIAL MUCOSA.H) BLADDER, PROSTATIC URETHRA, BIOPSY: REACTIVE UROTHELIAL MU COSA ANDSUBMUCOSAL CHRONIC INFLAMMATION.Annika Gallo MD;Resident PathologistElectronically Signed By Sean Brewer M.D., Attending Myolfuebjtg67/20/2020 07:28:21 The attending pathologist named above attests that he/she has personallyreviewed the relevant preparation(s) for the specimen, performedmicroscopic examination when indicated, and rendered the final diagnosis.Unless 'gross-only' is specified, the final diagnosis is based on amicroscopic examination of sales training representative sections of tissue.Gross DescriptionThe specimen is received in eight parts.Part A is received in formalin labeled with the patient's name "RollandRhyner" and "right lateral wall". It consists of a single soft lopez tissuefragment measuring 0.2 cm in greatest dimension. Totally submitted in onecassette. Part B is received in formalin labeled with the patient's name "RollandRhyner" and "posterior bladder wall". It consists of a single soft tantissue fragment measuring 0.2 cm in greatest dimension. Totally submittedin one cassette. Part C is received in formalin labeled with the patient's name "RollandRhyner" and "left lateral wall". It consists of a single soft lopez tissuefragment measuring 0.1 cm in greatest dimension. Totally submitted in onecassette. Part D is received in formalin labeled with the patient's name "RollandRhyner" and "left lateral wall". It consists of a single soft lopez tissuefragment measuring 0.3 cm in greatest dimension. Totally submitted in onecassette. Part E is received in formalin labeled with the patient's name "RollandRhyner" and "posterior wall". It consists of a single soft lopez tissuefragment measuring 0.2 cm in greatest dimension. Totally submitted in onecassette. Part F is received in formalin labeled with the patient's name "RollandRhyner" and "trigone". It consists of a single soft lopez tissue fragmentmeasuring 0.3 cm in greatest dimension. Totally submitted in onecassette. Part G is received in formalin labeled with the patient's name "RollandRhyner" and "bladder dome". It consists of a single soft lopez tissuefragment measuring 0.1 cm in greatest dimension. Totally submitted in onecassette. Part H is received in formalin labeled with the patient's name "RollandRhyner" and "prosthetic urethra". It consists of a single soft lopez tissuefragment measuring 0.2 cm in greatest dimension. Totally submitted in onecassette. ND/hjgThis report may include one or more immunohistochemical stain results thatuse analyte specific reagents. All positive and negative controls havebeen reviewed by the attending pathologist and are satisfactory. The testswere developed and their performance characteristics determined by [facility] Pathology department. They have not been cleared or approved by the USFood and Drug Administration. The FDA has determined that such clearanceor approval is not necessary. Name Value Range Interpretation Code Description Data Rmea rce(s) Supporting Document(s) ID Date Data Source [id number] 01/11/2020 10:07:00 AM EST [facility] Name Value Range Interpretation Code Description Data Rema rce(s) Supporting Document(s) SARS coronavirus 2 RNA [facility] This lab was ordered by [facility] and reported by [facility]. ID Date Data Source [id number] 01/13/2020 07:07:00 AM EST [facility] [address] [place] [address] [id number] Director: Joy Tomlinson PhD, Phone: [phone] Name Value Range Interpretation Code Description Data Rema rce(s) Supporting Document(s) SARS-CoV-2, VIET Not Detected Not Detected [facility] This nucleic acid amplification test was developed and itsperformance characteristics [facility]. Nucleic acid amplification tests include PCRand TMA. This test has not been FDA cleared or approved.This test has been authorized by FDA under an Emergency UseAuthorization (EUA). This test is only authorized forthe duration of time the declaration that circumstancesexist justifying the authorization of the emergency use ofin vitro diagnostic tests for detection of SARS-CoV-2 virusand/or diagnosis of COVID-19 infection under (b)(1) of the Act, 21 U.S.C. 360bbb-3(b) (1), unless theauthorization is terminated or revoked sooner.When diagnostic testing is negative, the possibility of afalse negative result should be considered in the contextof a patient's recent exposures and the presence ofclinical signs and symptoms consistent with COVID-19. Anindividual without symptoms of COVID-19 and who is notshedding SARS-CoV-2 virus would expect to have a negative(not detected) result in this assay.Methodology: Nucleic Acid Amplification (VIET) ID Date Data Source [id number] 01/07/2020 07:00:00 AM EST [facility] Name Value Range Interpretation Code Description Data Rema rce(s) Supporting Document(s) Urine Culture Laboratory test result Normal (applies t o non-numeric results) [facility] ([facility] FULL REPORT IN LAB NOTES ([facility] and [facility] ). NO GROWTH ID Date Data Source [id number] 01/07/2020 07:00:00 AM EST [facility] ([facility] Name Value Range Interpretation Code Description Data Rema rce(s) Supporting Document(s) Appearance, Urine Laboratory test result Normal (applies to non-numeric results) [facility] ([facility] ) Color, Urine Laboratory test result Normal (applies to non -numeric results) [facility] ([facility] Specific Eunice Urine Auto 1.017 1.002-1.035 Norm al (applies to non-numeric results) [facility] ([facility] ) PH,Urine 7.0 units 5.0-9.0 Normal (applies to non-numeric resul ts) [facility] ([facility] Ketone, Urine Auto Laboratory test result Normal (applies to non-numeric results) [facility] ([facility] ) Glucose, Urine (Ua) Auto Laboratory test result Normal (applies to non-numeric results) [facility] ([facility] ) Protein, Urine Auto Laboratory test result Above high norm al [facility] ([facility] Urobilinogen, Urine Auto 0.2 mg/dL 0.0-2.0 Normal (applies to non-numeric results) [facility] ([facility] ) Bilirubin, Urine Auto Laboratory test result Nor mal (applies to non-numeric results) [facility] ([facility] ) Blood, Urine Blood Laboratory test result Normal (applies to non-numeric results) [facility] ([facility] ) Leukocyte Esterase, Urine Auto Laboratory test result Normal (applies to non- numeric results) [facility] ([facility] ) Nitrite, Urine Auto Laboratory test result Shante l (applies to non-numeric results) [facility] ([facility] ) Bacteria, Urine Auto Laboratory test result Norm al (applies to non-numeric results) [facility] ([facility] ) RBC, Urine Auto 1 /HPF 0-3 Normal (applies to non-numeric results) [facility] ([facility] WBC, Urine Auto 1 /HPF 0-3 Normal (applies to non-numeric results) [facility] ([facility] Mucus, Urine Laboratory test result Normal (applies to non -numeric results) [facility] ([facility] Squamous Epithelial Cell Ur AU 0 /HPF 0-6 N ormal (applies to non-numeric results) [facility] ([facility] ) Hyaline Cast, Urine Auto 1 /LPF 0-1 Normal (applies to non -numeric results) [facility] ([facility] ID Date Data Source [id number] 12/25/2019 12:00:00 AM EDT [facility] Imaging Harjinder Carvajal MD Patient Name: CRISTIANE JONES [facility], [address] Date of : [address] [address] Date of Exam: 12/25/2019#: Fax: [phone] EXAM: LUMBOSACRAL SPINE (4 VIEWS)CLINICAL INFORMATION: Chronic low back pain.Five views. These images were obtained using digital radiography.Comparison 12/06/2015 which is the latest prior.Heavy marginal osteophytosis is seen bilaterally at every level with nearbridging marginal osteophytosis seen bilaterally at L1-2; and particularly,L2-3. All of this has increased from the prior exam. There is nosignificant change in the appearance of vertebral body height or alignment. There is jbpdjaiz-fa-bihglh disc space narrowing at every level,particularly L3-4 to L5-S1 and all increased from the prior exam. There isendplate sclerosis at every level which is increased. Heavy calcificationsare again seen in the abdominal aorta. There is no spondylolysis orspondylolisthesis. There are degenerative facet joint changes seenbilaterally at every level, particularly L4-5 and L5-S1, increased from theprior exam. The pedicles appear to be intact bilaterally.IMPRESSION:Advanced chronic changes as described above.MARCO ANTONIO Sorto/Renard tran for referring ODIN JONES to our office. Electronically Signed - NANETTE DAVILA DO 12/25/19 15:38 Name Value Range Interpretation Code Description Data Rema rce(s) Supporting Document(s) ID Date Data Source [id number] 12/24/2019 02:19:00 PM EDT [facility] ([facility] Name Value Range Interpretation Code Description Data Rema rce(s) Supporting Document(s) Hemoglobin S [Presence] in Blood by Solubility test Laboratory test result [facility] ([facility] Hemoglobin S/Hemoglobin.total in Blood 0.0 % [facility] ([facility] Hemoglobin F/Hemoglobin.total in Blood 0.5 % 0.0-2.0 [facility] ([facility] Hemoglobin A/Hemoglobin.total in Blood 95.9 % 96.4-98.8 Below lo w normal [facility] ([facility] Hemoglobin A2/Hemoglobin.total in Blood by Chromatography column 3.6 % 1.8-3.2 Above high normal [facility] ([facility] ) Deprecated Hemoglobin.other/Hemoglobin.total [interpretation] in Blood 0.0 % [facility] ([facility] 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 Suggest hematologic and clinical correlation. ID Date Data Source [id number] 12/24/2019 02:19:00 PM EDT [facility] ([facility] Name Value Range Interpretation Code Description Data Rema rce(s) Supporting Document(s) Iron binding capacity [Mass/volume] in Serum or Plasma 235 ug/dL 250-450 Below low normal [facility] ([facility] ) Iron binding capacity.unsaturated [Mass/volume] in Serum or Plasma 195 ug/dL 111-343 [facility] ([facility] Iron [Mass/volume] in Serum or Plasma 40 ug/dL 38-169 [facility] ([facility] Iron saturation [Mass Fraction] in Serum or Plasma 17 % 15-55 [facility] ([facility] ID Date Data Source [id number] 12/24/2019 02:18:00 PM EDT [facility] ([facility] Name Value Range Interpretation Code Description Data Rema rce(s) Supporting Document(s) Thyrotropin [Units/volume] in Serum or Plasma 2.040 ulU/mL 0.60-4.8 [facility] ([facility] ID Date Data Source [id number] 12/24/2019 02:18:00 PM EDT [facility] ([facility] Name Value Range Interpretation Code Description Data Rema rce(s) Supporting Document(s) Chol 94 mg/dL 0-200 [facility] ([facility] NORMAL RANGES Age WBC RBC HGB HCT [...] HCT IS 5% LESS SOURCE FOR DATA: DripDrop 1800 OPERATION MANUAL( AUTOMATED BLOOD COUNTS AND [...] DESIRABLE: <130 MG/DL <110 MG/DL BORDERLINE-HIGH RISK: 130- 159 MG/DL 110-129 MG/DL HIGH RISK: >160 MG/DL >130 MG/DL *CHILDREN AND ADOLESCENTS REPRESENTS INDIVIDUALA AGED 2-19 YEARS EXCLUSIVE. Trig 49 mg/dL 40-200 [facility] ([facility] NORMAL RANGES Age WBC RBC HGB HCT [...] HCT IS 5% LESS SOURCE FOR DATA: DripDrop 1800 OPERATION MANUAL( AUTOMATED BLOOD COUNTS AND [...] DESIRABLE: <130 MG/DL <110 MG/DL BORDERLINE-HIGH RISK: 130- 159 MG/DL 110-129 MG/DL HIGH RISK: >160 MG/DL >130 MG/DL *CHILDREN AND ADOLESCENTS REPRESENTS INDIVIDUALA AGED 2-19 YEARS EXCLUSIVE. Cholesterol in HDL [Mass/volume] in Serum or Plasma 57 mg/dL 45-65 [facility] ([facility] NORMAL RANGES Age WBC RBC HGB HCT [...] HCT IS 5% LESS SOURCE FOR DATA: DripDrop 1800 OPERATION MANUAL( AUTOMATED BLOOD COUNTS AND [...] DESIRABLE: <130 MG/DL <110 MG/DL BORDERLINE-HIGH RISK: 130- 159 MG/DL 110-129 MG/DL HIGH RISK: >160 MG/DL >130 MG/DL *CHILDREN AND ADOLESCENTS REPRESENTS INDIVIDUALA AGED 2-19 YEARS EXCLUSIVE. LDL_C 28 Calc 75-129 Below low normal [facility] ( [facility] NORMAL RANGES Age WBC RBC HGB HCT [...] HCT IS 5% LESS SOURCE FOR DATA: Scrapblog DYN 1800 OPERATION MANUAL( AUTOMATED BLOOD COUNTS [...] DESIRABLE: <130 MG/DL <110 MG/DL BORDERLINE-HIGH RISK: 130- 159 MG/DL 110-129 MG/DL HIGH RISK: >160 MG/DL >130 MG/DL *CHILDREN AND ADOLESCENTS REPRESENTS INDIVIDUALA AGED 2-19 YEARS EXCLUSIVE. Cho/HDL Ratio 1.7 Calc [employer] ([facility] NORMAL RANGES Age WBC RBC HGB HCT [...] HCT IS 5% LESS SOURCE FOR DATA: DripDrop 1800 OPERATION MANUAL( AUTOMATED BLOOD COUNTS AND [...] DESIRABLE: <130 MG/DL <110 MG/DL BORDERLINE-HIGH RISK: 130- 159 MG/DL 110-129 MG/DL HIGH RISK: >160 MG/DL >130 MG/DL *CHILDREN AND ADOLESCENTS REPRESENTS INDIVIDUALA AGED 2-19 YEARS EXCLUSIVE. ID Date Data Source [id number] 12/24/2019 02:18:00 PM EDT [facility] ([facility] Name Value Range Interpretation Code Description Data Rema rce(s) Supporting Document(s) WBC 5.3 10E3/uL 4.1-10.9 [facility] ([facility] NORMAL RANGES Age WBC RBC HGB HCT [...] HCT IS 5% LESS SOURCE FOR DATA: DripDrop 1800 OPERATION MANUAL( AUTOMATED BLOOD COUNTS AND [...] DESIRABLE: <130 MG/DL <110 MG/DL BORDERLINE-HIGH RISK: 130- 159 MG/DL 110-129 MG/DL HIGH RISK: >160 MG/DL >130 MG/DL *CHILDREN AND ADOLESCENTS REPRESENTS INDIVIDUALA AGED 2-19 YEARS EXCLUSIVE. HGB 10.3 g/dL 12.0-18.0 Below low normal [facility] ( [facility] NORMAL RANGES Age WBC RBC HGB HCT [...] HCT IS 5% LESS SOURCE FOR DATA: DripDrop 1800 OPERATION MANUAL( AUTOMATED BLOOD COUNTS AND [...] DESIRABLE: <130 MG/DL <110 MG/DL BORDERLINE-HIGH RISK: 130- 159 MG/DL 110-129 MG/DL HIGH RISK: >160 MG/DL >130 MG/DL *CHILDREN AND ADOLESCENTS REPRESENTS INDIVIDUALA AGED 2-19 YEARS EXCLUSIVE. RBC 4.56 10E6/uL 4.20-6.30 [facility] ([facility] NORMAL RANGES Age WBC RBC HGB HCT [...] HCT IS 5% LESS SOURCE FOR DATA: DripDrop 1800 OPERATION MANUAL( AUTOMATED BLOOD COUNTS AND [...] DESIRABLE: <130 MG/DL <110 MG/DL BORDERLINE-HIGH RISK: 130- 159 MG/DL 110-129 MG/DL HIGH RISK: >160 MG/DL >130 MG/DL *CHILDREN AND ADOLESCENTS REPRESENTS INDIVIDUALA AGED 2-19 YEARS EXCLUSIVE. MCH 22.6 pg 26.0-32.0 Below low normal [facility] ( [facility] NORMAL RANGES Age WBC RBC HGB HCT [...] HCT IS 5% LESS SOURCE FOR DATA: DripDrop 1800 OPERATION MANUAL( AUTOMATED BLOOD COUNTS AND [...] DESIRABLE: <130 MG/DL <110 MG/DL BORDERLINE-HIGH RISK: 130- 159 MG/DL 110-129 MG/DL HIGH RISK: >160 MG/DL >130 MG/DL *CHILDREN AND ADOLESCENTS REPRESENTS INDIVIDUALA AGED 2-19 YEARS EXCLUSIVE. HCT 33.5 % 37.0-51.0 Below low normal [facility] ( [facility] NORMAL RANGES Age WBC RBC HGB HCT [...] DESIRABLE: <130 MG/DL <110 MG/DL BORDERLINE-HIGH RISK: 130- 159 MG/DL 110-129 MG/DL HIGH RISK: >160 MG/DL >130 MG/DL *CHILDREN AND ADOLESCENTS REPRESENTS INDIVIDUALA AGED 2-19 YEARS EXCLUSIVE. MCV 73.5 fL 80.0-97.0 Below low normal [facility] ( [facility] NORMAL RANGES Age WBC RBC HGB HCT [...] HCT IS 5% LESS SOURCE FOR DATA: DripDrop 1800 OPERATION MANUAL( AUTOMATED BLOOD COUNTS AND [...] DESIRABLE: <130 MG/DL <110 MG/DL BORDERLINE-HIGH RISK: 130- 159 MG/DL 110-129 MG/DL HIGH RISK: >160 MG/DL >130 MG/DL *CHILDREN AND ADOLESCENTS REPRESENTS INDIVIDUALA AGED 2-19 YEARS EXCLUSIVE. RDW-CV 17.7 % 11.5-14.5 Above high normal [facility] ([facility] NORMAL RANGES Age WBC RBC HGB HCT [...] HCT IS 5% LESS SOURCE FOR DATA: DripDrop 1800 OPERATION MANUAL( AUTOMATED BLOOD COUNTS AND [...] DESIRABLE: <130 MG/DL <110 MG/DL BORDERLINE-HIGH RISK: 130- 159 MG/DL 110-129 MG/DL HIGH RISK: >160 MG/DL >130 MG/DL *CHILDREN AND ADOLESCENTS REPRESENTS INDIVIDUALA AGED 2-19 YEARS EXCLUSIVE. MCHC 30.7 g/dL 31.0-36.0 Below low normal [facility] ( [facility] NORMAL RANGES Age WBC RBC HGB HCT [...] HCT IS 5% LESS SOURCE FOR DATA: Scrapblog DYN 1800 OPERATION MANUAL( AUTOMATED BLOOD COUNTS [...] DESIRABLE: <130 MG/DL <110 MG/DL BORDERLINE-HIGH RISK: 130- 159 MG/DL 110-129 MG/DL HIGH RISK: >160 MG/DL >130 MG/DL *CHILDREN AND ADOLESCENTS REPRESENTS INDIVIDUALA AGED 2-19 YEARS EXCLUSIVE. PLT 188 10E3/uL 140-440 [facility] ([facility] NORMAL RANGES Age WBC RBC HGB HCT [...] HCT IS 5% LESS SOURCE FOR DATA: DripDrop 1800 OPERATION MANUAL( AUTOMATED BLOOD COUNTS AND [...] DESIRABLE: <130 MG/DL <110 MG/DL BORDERLINE-HIGH RISK: 130- 159 MG/DL 110-129 MG/DL HIGH RISK: >160 MG/DL >130 MG/DL *CHILDREN AND ADOLESCENTS REPRESENTS INDIVIDUALA AGED 2-19 YEARS EXCLUSIVE. Lym% 15.2 % 10.0-58.5 [facility] ([facility] NORMAL RANGES Age WBC RBC HGB HCT [...] HCT IS 5% LESS SOURCE FOR DATA: DripDrop 1800 OPERATION MANUAL( AUTOMATED BLOOD COUNTS AND [...] DESIRABLE: <130 MG/DL <110 MG/DL BORDERLINE-HIGH RISK: 130- 159 MG/DL 110-129 MG/DL HIGH RISK: >160 MG/DL >130 MG/DL *CHILDREN AND ADOLESCENTS REPRESENTS INDIVIDUALA AGED 2-19 YEARS EXCLUSIVE. Neut% 74.6 % 37.0-92.0 [facility] ([facility] NORMAL RANGES Age WBC RBC HGB HCT [...] HCT IS 5% LESS SOURCE FOR DATA: DripDrop 1800 OPERATION MANUAL( AUTOMATED BLOOD COUNTS AND [...] DESIRABLE: <130 MG/DL <110 MG/DL BORDERLINE-HIGH RISK: 130- 159 MG/DL 110-129 MG/DL HIGH RISK: >160 MG/DL >130 MG/DL *CHILDREN AND ADOLESCENTS REPRESENTS INDIVIDUALA AGED 2-19 YEARS EXCLUSIVE. MXD% 10.2 % 0.1-24.0 [facility] ([facility] NORMAL RANGES Age WBC RBC HGB HCT [...] HCT IS 5% LESS SOURCE FOR DATA: DripDrop 1800 OPERATION MANUAL( AUTOMATED BLOOD COUNTS AND [...] DESIRABLE: <130 MG/DL <110 MG/DL BORDERLINE-HIGH RISK: 130- 159 MG/DL 110-129 MG/DL HIGH RISK: >160 MG/DL >130 MG/DL *CHILDREN AND ADOLESCENTS REPRESENTS INDIVIDUALA AGED 2-19 YEARS EXCLUSIVE. Lym# 0.8 10E3/uL 0.6-4.1 [facility] NORMAL RANGES Age WBC RBC HGB HCT [...] HCT IS 5% LESS SOURCE FOR DATA: DripDrop 1800 OPERATION MANUAL( AUTOMATED BLOOD COUNTS AND [...] DESIRABLE: <130 MG/DL <110 MG/DL BORDERLINE-HIGH RISK: 130- 159 MG/DL 110-129 MG/DL HIGH RISK: >160 MG/DL >130 MG/DL *CHILDREN AND ADOLESCENTS REPRESENTS INDIVIDUALA AGED 2-19 YEARS EXCLUSIVE. Neut# 4.0 % 2.0-7.8 [facility] ([facility] NORMAL RANGES Age WBC RBC HGB HCT [...] HCT IS 5% LESS SOURCE FOR DATA: DripDrop 1800 OPERATION MANUAL( AUTOMATED BLOOD COUNTS AND [...] DESIRABLE: <130 MG/DL <110 MG/DL BORDERLINE-HIGH RISK: 130- 159 MG/DL 110-129 MG/DL HIGH RISK: >160 MG/DL >130 MG/DL *CHILDREN AND ADOLESCENTS REPRESENTS INDIVIDUALA AGED 2-19 YEARS EXCLUSIVE. MPV 11.5 fL 9.0-13.0 [facility] ([facility] NORMAL RANGES Age WBC RBC HGB HCT [...] HCT IS 5% LESS SOURCE FOR DATA: DripDrop 1800 OPERATION MANUAL( AUTOMATED BLOOD COUNTS AND [...] DESIRABLE: <130 MG/DL <110 MG/DL BORDERLINE-HIGH RISK: 130- 159 MG/DL 110-129 MG/DL HIGH RISK: >160 MG/DL >130 MG/DL *CHILDREN AND ADOLESCENTS REPRESENTS INDIVIDUALA AGED 2-19 YEARS EXCLUSIVE. MXD# 0.5 10E3/uL 0.0-1.8 [facility] ([facility] NORMAL RANGES Age WBC RBC HGB HCT [...] HCT IS 5% LESS SOURCE FOR DATA: DripDrop 1800 OPERATION MANUAL( AUTOMATED BLOOD COUNTS AND [...] DESIRABLE: <130 MG/DL <110 MG/DL BORDERLINE-HIGH RISK: 130- 159 MG/DL 110-129 MG/DL HIGH RISK: >160 MG/DL >130 MG/DL *CHILDREN AND ADOLESCENTS REPRESENTS INDIVIDUALA AGED 2-19 YEARS EXCLUSIVE. ID Date Data Source [id number] 12/24/2019 02:18:00 PM EDT [facility] ([facility] Name Value Range Interpretation Code Description Data Rema rce(s) Supporting Document(s) Glu 102 mg/dL 70-110 [facility] ([facility] NORMAL RANGES Age WBC RBC HGB HCT [...] HCT IS 5% LESS SOURCE FOR DATA: DripDrop 1800 OPERATION MANUAL( AUTOMATED BLOOD COUNTS AND [...] DESIRABLE: <130 MG/DL <110 MG/DL BORDERLINE-HIGH RISK: 130- 159 MG/DL 110-129 MG/DL HIGH RISK: >160 MG/DL >130 MG/DL *CHILDREN AND ADOLESCENTS REPRESENTS INDIVIDUALA AGED 2-19 YEARS EXCLUSIVE. BUN 24 mg/dL 8-23 Above high normal [facility] ([facility] NORMAL RANGES Age WBC RBC HGB HCT [...] HCT IS 5% LESS SOURCE FOR DATA: DripDrop 1800 OPERATION MANUAL( AUTOMATED BLOOD COUNTS AND [...] DESIRABLE: <130 MG/DL <110 MG/DL BORDERLINE-HIGH RISK: 130- 159 MG/DL 110-129 MG/DL HIGH RISK: >160 MG/DL >130 MG/DL *CHILDREN AND ADOLESCENTS REPRESENTS INDIVIDUALA AGED 2-19 YEARS EXCLUSIVE. Creat 1.3 mg/dL 0.5-1.0 Above high normal [facility] ([facility] NORMAL RANGES Age WBC RBC HGB HCT [...] HCT IS 5% LESS SOURCE FOR DATA: Scrapblog DYN 1800 OPERATION MANUAL( AUTOMATED BLOOD COUNTS [...] DESIRABLE: <130 MG/DL <110 MG/DL BORDERLINE-HIGH RISK: 130- 159 MG/DL 110-129 MG/DL HIGH RISK: >160 MG/DL >130 MG/DL *CHILDREN AND ADOLESCENTS REPRESENTS INDIVIDUALA AGED 2-19 YEARS EXCLUSIVE. BUN/Creatinine Ratio 18.6 Calc [facility] ([facility] NORMAL RANGES Age WBC RBC HGB HCT [...] HCT IS 5% LESS SOURCE FOR DATA: DripDrop 1800 OPERATION MANUAL( AUTOMATED BLOOD COUNTS AND [...] DESIRABLE: <130 MG/DL <110 MG/DL BORDERLINE-HIGH RISK: 130- 159 MG/DL 110-129 MG/DL HIGH RISK: >160 MG/DL >130 MG/DL *CHILDREN AND ADOLESCENTS REPRESENTS INDIVIDUALA AGED 2-19 YEARS EXCLUSIVE. Na 141 mmol/L 136-145 [facility] ([facility] NORMAL RANGES Age WBC RBC HGB HCT [...] HCT IS 5% LESS SOURCE FOR DATA: DripDrop 1800 OPERATION MANUAL( AUTOMATED BLOOD COUNTS AND [...] DESIRABLE: <130 MG/DL <110 MG/DL BORDERLINE-HIGH RISK: 130- 159 MG/DL 110-129 MG/DL HIGH RISK: >160 MG/DL >130 MG/DL *CHILDREN AND ADOLESCENTS REPRESENTS INDIVIDUALA AGED 2-19 YEARS EXCLUSIVE. K 5.0 mmol/L 3.5-5.1 [facility] NORMAL RANGES Age WBC RBC HGB HCT [...] HCT IS 5% LESS SOURCE FOR DATA: DripDrop 1800 OPERATION MANUAL( AUTOMATED BLOOD COUNTS AND [...] DESIRABLE: <130 MG/DL <110 MG/DL BORDERLINE-HIGH RISK: 130- 159 MG/DL 110-129 MG/DL HIGH RISK: >160 MG/DL >130 MG/DL *CHILDREN AND ADOLESCENTS REPRESENTS INDIVIDUALA AGED 2-19 YEARS EXCLUSIVE. CL 104.6 mmol/L 98.0-107.0 [facility] ([facility] NORMAL RANGES Age WBC RBC HGB HCT [...] HCT IS 5% LESS SOURCE FOR DATA: DripDrop 1800 OPERATION MANUAL( AUTOMATED BLOOD COUNTS AND [...] DESIRABLE: <130 MG/DL <110 MG/DL BORDERLINE-HIGH RISK: 130- 159 MG/DL 110-129 MG/DL HIGH RISK: >160 MG/DL >130 MG/DL *CHILDREN AND ADOLESCENTS REPRESENTS INDIVIDUALA AGED 2-19 YEARS EXCLUSIVE. Co2 26.4 mmol/L 22.0-29.0 [facility] ([facility] NORMAL RANGES Age WBC RBC HGB HCT [...] HCT IS 5% LESS SOURCE FOR DATA: DripDrop 1800 OPERATION MANUAL( AUTOMATED BLOOD COUNTS AND [...] DESIRABLE: <130 MG/DL <110 MG/DL BORDERLINE-HIGH RISK: 130- 159 MG/DL 110-129 MG/DL HIGH RISK: >160 MG/DL >130 MG/DL *CHILDREN AND ADOLESCENTS REPRESENTS INDIVIDUALA AGED 2-19 YEARS EXCLUSIVE. CA 9.8 mg/dL 8.6-10.2 [facility] ([facility] NORMAL RANGES Age WBC RBC HGB HCT [...] HCT IS 5% LESS SOURCE FOR DATA: DripDrop 1800 OPERATION MANUAL( AUTOMATED BLOOD COUNTS AND [...] DESIRABLE: <130 MG/DL <110 MG/DL BORDERLINE-HIGH RISK: 130- 159 MG/DL 110-129 MG/DL HIGH RISK: >160 MG/DL >130 MG/DL *CHILDREN AND ADOLESCENTS REPRESENTS INDIVIDUALA AGED 2-19 YEARS EXCLUSIVE. Alb 4.0 g/dL 3.4-4.8 [facility] ([facility] NORMAL RANGES Age WBC RBC HGB HCT [...] HCT IS 5% LESS SOURCE FOR DATA: DripDrop 1800 OPERATION MANUAL( AUTOMATED BLOOD COUNTS AND [...] DESIRABLE: <130 MG/DL <110 MG/DL BORDERLINE-HIGH RISK: 130- 159 MG/DL 110-129 MG/DL HIGH RISK: >160 MG/DL >130 MG/DL *CHILDREN AND ADOLESCENTS REPRESENTS INDIVIDUALA AGED 2-19 YEARS EXCLUSIVE. TP 6.0 g/dL 6.6-8.7 Below low normal [facility] ( [facility] NORMAL RANGES Age WBC RBC HGB HCT [...] HCT IS 5% LESS SOURCE FOR DATA: DripDrop 1800 OPERATION MANUAL( AUTOMATED BLOOD COUNTS AND [...] DESIRABLE: <130 MG/DL <110 MG/DL BORDERLINE-HIGH RISK: 130- 159 MG/DL 110-129 MG/DL HIGH RISK: >160 MG/DL >130 MG/DL *CHILDREN AND ADOLESCENTS REPRESENTS INDIVIDUALA AGED 2-19 YEARS EXCLUSIVE. Globulin 2.1 Calc [facility] ([facility] NORMAL RANGES Age WBC RBC HGB HCT [...] HCT IS 5% LESS SOURCE FOR DATA: DripDrop 1800 OPERATION MANUAL( AUTOMATED BLOOD COUNTS AND [...] DESIRABLE: <130 MG/DL <110 MG/DL BORDERLINE-HIGH RISK: 130- 159 MG/DL 110-129 MG/DL HIGH RISK: >160 MG/DL >130 MG/DL *CHILDREN AND ADOLESCENTS REPRESENTS INDIVIDUALA AGED 2-19 YEARS EXCLUSIVE. A/G Ratio 1.9 Calc [facility] ([facility] NORMAL RANGES Age WBC RBC HGB HCT [...] HCT IS 5% LESS SOURCE FOR DATA: DripDrop 1800 OPERATION MANUAL( AUTOMATED BLOOD COUNTS AND [...] DESIRABLE: <130 MG/DL <110 MG/DL BORDERLINE-HIGH RISK: 130- 159 MG/DL 110-129 MG/DL HIGH RISK: >160 MG/DL >130 MG/DL *CHILDREN AND ADOLESCENTS REPRESENTS INDIVIDUALA AGED 2-19 YEARS EXCLUSIVE. Alp 75.4 U/L 35-129 [facility] NORMAL RANGES Age WBC RBC HGB HCT [...] HCT IS 5% LESS SOURCE FOR DATA: DripDrop 1800 OPERATION MANUAL( AUTOMATED BLOOD COUNTS AND [...] DESIRABLE: <130 MG/DL <110 MG/DL BORDERLINE-HIGH RISK: 130- 159 MG/DL 110-129 MG/DL HIGH RISK: >160 MG/DL >130 MG/DL *CHILDREN AND ADOLESCENTS REPRESENTS INDIVIDUALA AGED 2-19 YEARS EXCLUSIVE. Alt (SGPT) 16 U/L 0-41 [facility] ([facility] NORMAL RANGES Age WBC RBC HGB HCT [...] HCT IS 5% LESS SOURCE FOR DATA: DripDrop 1800 OPERATION MANUAL( AUTOMATED BLOOD COUNTS AND [...] DESIRABLE: <130 MG/DL <110 MG/DL BORDERLINE-HIGH RISK: 130- 159 MG/DL 110-129 MG/DL HIGH RISK: >160 MG/DL >130 MG/DL *CHILDREN AND ADOLESCENTS REPRESENTS INDIVIDUALA AGED 2-19 YEARS EXCLUSIVE. Ast (Sgot) 18 U/L 0-40 [facility] NORMAL RANGES Age WBC RBC HGB HCT [...] HCT IS 5% LESS SOURCE FOR DATA: DripDrop 1800 OPERATION MANUAL( AUTOMATED BLOOD COUNTS AND [...] DESIRABLE: <130 MG/DL <110 MG/DL BORDERLINE-HIGH RISK: 130- 159 MG/DL 110-129 MG/DL HIGH RISK: >160 MG/DL >130 MG/DL *CHILDREN AND ADOLESCENTS REPRESENTS INDIVIDUALA AGED 2-19 YEARS EXCLUSIVE. Osmolality-Calculated 285.2 Calc [facility] ([facility] NORMAL RANGES Age WBC RBC HGB HCT [...] HCT IS 5% LESS SOURCE FOR DATA: DripDrop 1800 OPERATION MANUAL( AUTOMATED BLOOD COUNTS AND [...] DESIRABLE: <130 MG/DL <110 MG/DL BORDERLINE-HIGH RISK: 130- 159 MG/DL 110-129 MG/DL HIGH RISK: >160 MG/DL >130 MG/DL *CHILDREN AND ADOLESCENTS REPRESENTS INDIVIDUALA AGED 2-19 YEARS EXCLUSIVE. Tbili 0.63 mg/dL 0.0-1.2 [facility] ([facility] NORMAL RANGES Age WBC RBC HGB HCT [...] HCT IS 5% LESS SOURCE FOR DATA: DripDrop 1800 OPERATION MANUAL( AUTOMATED BLOOD COUNTS AND [...] DESIRABLE: <130 MG/DL <110 MG/DL BORDERLINE-HIGH RISK: 130- 159 MG/DL 110-129 MG/DL HIGH RISK: >160 MG/DL >130 MG/DL *CHILDREN AND ADOLESCENTS REPRESENTS INDIVIDUALA AGED 2-19 YEARS EXCLUSIVE. Anion Gap 15 mmol/L [facility] NORMAL RANGES Age WBC RBC HGB HCT [...] HCT IS 5% LESS SOURCE FOR DATA: DripDrop 1800 OPERATION MANUAL( AUTOMATED BLOOD COUNTS AND [...] DESIRABLE: <130 MG/DL <110 MG/DL BORDERLINE-HIGH RISK: 130- 159 MG/DL 110-129 MG/DL HIGH RISK: >160 MG/DL >130 MG/DL *CHILDREN AND ADOLESCENTS REPRESENTS INDIVIDUALA AGED 2-19 YEARS EXCLUSIVE. eGFR Non-Afr. Brazilian 38 # [facility] ([facility] NORMAL RANGES Age WBC RBC HGB HCT [...] HCT IS 5% LESS SOURCE FOR DATA: DripDrop 1800 OPERATION MANUAL( AUTOMATED BLOOD COUNTS AND [...] DESIRABLE: <130 MG/DL <110 MG/DL BORDERLINE-HIGH RISK: 130- 159 MG/DL 110-129 MG/DL HIGH RISK: >160 MG/DL >130 MG/DL *CHILDREN AND ADOLESCENTS REPRESENTS INDIVIDUALA AGED 2-19 YEARS EXCLUSIVE. eGFR 44 # [facility] ( [facility] NORMAL RANGES Age WBC RBC HGB HCT [...] HCT IS 5% LESS SOURCE FOR DATA: DripDrop 1800 OPERATION MANUAL( AUTOMATED BLOOD COUNTS AND [...] DESIRABLE: <130 MG/DL <110 MG/DL BORDERLINE-HIGH RISK: 130- 159 MG/DL 110-129 MG/DL HIGH RISK: >160 MG/DL >130 MG/DL *CHILDREN AND ADOLESCENTS REPRESENTS INDIVIDUALA AGED 2-19 YEARS EXCLUSIVE. ID Date Data Source [id number] 12/24/2019 10:05:00 AM EDT [facility] Name Value Range Interpretation Code Description Data Rema rce(s) Supporting Document(s) Iron 40 38-169 [facility] Iron binding capacity [Mass/volume] in Serum or Plasma 195 [facility] ([facility]) Tibc % Saturation 17 [facility] ID Date Data Source [id number] 12/24/2019 10:05:00 AM EDT [facility] ([facility] Name Value Range Interpretation Code Description Data Rema rce(s) Supporting Document(s) Cholesterol 94 0-200 [facility] ([facility]) Triglycerides 49 [facility] ([facility] Cholesterol in LDL [Mass/volume] in Serum or Plasma by calculation 28 [facility] ([facility]) HDL 57 45-65 [facility] Chol/HDL Ratio 1.7 [facility] ([facility] ID Date Data Source [id number] 12/24/2019 10:05:00 AM EDT [facility] ([facility] Name Value Range Interpretation Code Description Data Rema rce(s) Supporting Document(s) Red Blood Count 4.56 4.20-6.30 [facility] White Blood Count 5.3 4.1-10.9 [facility] Platelets 188 140-440 [facility] Hematocrit 33.5 37.0-51.0 [facility] ([facility]) Hemoglobin 10.3 12.0-18.0 [facility] ([facility]) ID Date Data Source [id number] 12/24/2019 10:05:00 AM EDT [facility] ([facility] Name Value Range Interpretation Code Description Data Rema rce(s) Supporting Document(s) Albumin [Mass/volume] in Serum or Plasma 4.0 [facility] ([facility]) Calcium [Mass/volume] in Serum or Plasma 9.8 [facility] ([facility]) Alanine aminotransferase [Enzymatic activity/volume] in Serum or Pl asma 16 [facility] ([facility]) Alkaline phosphatase [Enzymatic activity/volume] in Serum or Plasma 7 5.4 [facility] ([facility]) Carbon dioxide, total [Moles/volume] in Serum or Plasma 26.4 [facility] ([facility]) Chloride [Moles/volume] in Serum or Plasma 104.6 [facility] ([facility]) Protein [Mass/volume] in Serum or Plasma 6.0 [facility]) Potassium [Moles/volume] in Serum or Plasma 5.0 [facility] ([facility]) Urea nitrogen [Mass/volume] in Serum or Plasma 24 [facility]) Sodium 141 [facility] Aspartate aminotransferase [Enzymatic activity/volume] in Serum or Plasma 18 [facility] ([facility]) Creatinine For GFR 1.3 [facility] ([facility]) Glucose 102 70-110 [facility] ([facility]) ID Date Data Source [id number] 12/19/2019 08:06:08 AM EDT [facility] Name Value Range Interpretation Code Description Data Rema rce(s) Supporting Document(s) History and Physical [facility] OVOBSq4sDlCBEkFz50/QIIibYBSzl6ObACxsFHl0BWkbHMIgN3YuFRJ2uL9jRCR1UGmZRuRuBsMjPSZz lbm [file] bsIlhLyIpOq/cruise guide+kQ364h/I2/z+PeyADkP1lKUa5CFxmLgmqmDMallCTF3qygQ/bu9eqsH3eDiMxuMF [file] AgICAgICAgICAgICAgICAgICAgICAgICAgICAgICAg HGOwJSYuGEGlSZXtDBOnCUPeSCHjOYLyGQVmNOJaQAXrYZMlXJIdKZBbINExMN0YBZBdZSGtJDWpVGTn ICAgICAgICAgICAgICAgICAgICAgICAgICAgICAgICAgICAgICAgICAgICAgICAgICAgICAgICAgICAg APHlNMOoGBAbDGLmOLUjFMJbXOWaHOAkCDKfBF7TDP AgICAgICAgICAgICAgICAgICAgICAgICAgICAgICAgICAgICAgICAgICAgICAgICAgICAgICAgICAgIC VkTSOgUZMjKSAbXHDbESTaTPGhCMEcIQWtHLUlGYJePKCwGMVcOI8DOWIeRKKjQVCiRTIpDLIzMFCgRG AgICAgICAgICAgICAgICAgICAgICAgICAgICAgICAg KCMnECLnZCLwRHNqBHCkIHYuOFKqINJjASBmVXDlCEAlFMQvPYIwWQFgINXzPPXtCB9FVJKqMDFgQAMt ICAgICAgICAgICAgICAgICAgICAgICAgICAgICAgICAgICAgICAgICAgICAgICAgICAgICAgICAgICAg ICAgICAgICAgICAgICAgICAgICAgICAgICAgICAgIA 0KICAgICAgICAgICAgICAgICAgICAgICAgICAgICAgICAgICAgICAgICAgICAgICAgICAgICAgICAgIC TnFOUeMCXdFAFwPFGvPBHoWKKgOUWnHMAoGDNoAWFpVRVwOPOuRZSjXF6GMAFfOTYhIRMgUBQbAQFpQM AgICAgICAgICAgICAgICAgICAgICAgICAgICAgICAg EKBtJNHeMONhUHDzEPAfNIReHOYhZLUuEFGpNJMgBGQxXFUuNKHcWORbEYRbSBCkUZZjEX8SHDEvANHi ICAgICAgICAgICAgICAgICAgICAgICAgICAgICAgICAgICAgICAgICAgICAgICAgICAgICAgICAgICAg ICAgICAgICAgICAgICAgICAgICAgICAgICAgICAgIC ScUJ3SKRElTIHmGMWtVRCaFFPtOAYdOJGoAZPxQNTiIQUmNRDeQLToOXSjQPAzJISrPYLqEPZuZDFfYK ZoLINaBPMzJLLwRLAbARDpMNPlNGNgKYGyTIXcTDMcHKZwPWTxCLCgMWPfMD0KDVMrHWRuYGXcRLMuSW AgICAgICAgICAgICAgICAgICAgICAgICAgICAgICAg QTZjWGSnHNTzWFNgFXHzWWAiPNDuCDUvPVYrUBQkJUZsDNQsMETlFMLaHGYjLPEsMEOzRPWcIE0BTM34 pVFdw8T4SCNcSD9okkr/Vw7TJZlsujMswSQzXQ4MWjIaAM0nvu4WDwLvZY3czr3TKNbKPfXiU4Y6mJHx KUGnAKWVBmTjA48jDFhwOw89YLhuWRVnZpLmCBr5Ph 2QWxXuZ5zgNXUtAfW8IFCgYeN1WPMrFnC5BZYgGbXyJSRtGKNzVIOkMCOQWUE9EOJuIkWzEAjlEK7Ll2 IhjQG4JGt+Xk6ZUP4er1MuIBqqLJEcSN5wtm9IIAbAItBuK8OhnlW3ISV4DLGuHq5XMBEsVDBuzFVsKj FxHJESOmObW7RvtZ12VJICLu6+DQplbmRvYmoNCjM2 OFBgd1FvOBe5JH3QWDFcHUo5uXItMLPIOWV5VQr2BT7tzM9zYFxqEU7YFTF8ZBKsEzOaErGzSxBwHPf8 PGQyQW5jCTzoWH3MMTW6IXasSUVtHNUsH4hRHvPaYPJ4OwNraAuzFO9GLbGyK7ZfnbLwmQRdMNXnGGPY Cj4+VLukboXxLigOTxI5ANSke5BuVMa6MJ2SIQAoWY lfGW1NTEOpsH7xJBhtDV9XHcMrWaSjKVQLPaHqT50diNWyAQt0F0SqUcZoBFMfVzeyUQQcXTciAgXgEX MgWyBdDQogID4+ID4+SGtiBM1DLNmijgDcPTGxIp9AEGVxOHXuTQ6sAJAnYHVlT4Z5jBbfISJXXmJbJ9 ezmtptQN2oJICwX461eOfmrlXpMJC1WIOjQa4UUCIu FBM8UVHuzLPuNqUaGULOBCtxNH6WcLXyTDY9zQ9qLOtuQDWuENXdF8lJOsQjoYlrMB27gXaoaeFwoYPs DQo+Xd3LPW2la6QwLZo9pqSxNBjmJWS4QNznXMJsVNPyCXEuFRT9KKR1EZJRKbMpDMRuFWNaYXubQLVc OHOisw9PLHUzVODrZsR6MFThYWJeACYeOWniXMJyZN O1HTH1WEOnTHHlSJ6PHzAaCIRgSYInPJkqEJRvAUDolv0WPTXkWGHvAuPzUBPwLJOfQCOdCFwmWXYhBS WmILN6CCGuGTMzOK7NAtSuLKYoDLL4CTMjHACcESIovo7KXQYwWFTrBqR5DYYrGRZsOLPeZJaeFIUzHN F0UKQuZVGePVYpUE9RJrWrABGxELv9FnDnERYrMYIy zt4EGPInIUFeWKvuTaIcSLOcOORkKGhfLMXaVSTwHPB9QVDyRGYwJY8BAtDjLOQeGMH7TTZzHALgLFYx ev7SUZLwTPMfRnmcVtHgUFHiIFJbWTntNLEkADU1VTFhJHPgXHTvHT4GJhMdQENsSPJ1XpNzEWYvYVQx jj4FJFZhVIEsULL5QgReDGFyFVLtEVqvXTMvMTE0Oe saFADySIKeJG3IKaWoGFZsYER2YuBzGQRkTQPdcq7RFHJpCDRiTsrnEQRvYTXbUQHiIKhzXAFpBXH6CT W0NSNbRDDxVS5VRhZbNXNnBSdqMTZlOSZbJMGlfp5ZSZJrSWCxCDK3BRBbJGJnRBVcQBisCVLzTBM5AE jaGDIvMQTbFY1NVhFiSKBlMBm3JORdLVUcEKCyqn9J QENuELCxCQR8GPXoFYPlPONjLWqfNOByVJXyCsP9KFIfJWJcMT3UTdHpECYvApJ4LmuxIYGlVXRexh7C XVUgPMKfGDvgQhNyQHDfWEInHPfuAPGwNHMtSMKzCSOuPVBbAT2JQsJhFXXsRqE0XFZuPAEpGDDsda1M BZJmSKMfPwM9TCAvWVFvRFAcBIliWUHpXHSqNbAlWJ DkPKGzHD3GKeAjFFAmFsK9BZRhBTNcEIHomn4EKGFuYPZqTGY4OlRmVEThMVYnBMslJQVeKLV6MbF6QX ElPKCkPA3ALkDjZIIwIkIzKhFmQWMnWURgzf5NqAUsaSyqwa8JRHrFCy2StSctYGK3HMxtYv3esFDlQo GhTZQNHc1IllLpTWHhWZPFBGtxXWRqCPewRlFcQAn1 TdHiWRZ6WclqUJYcHlM6XcHlGtZhV2H8EpW0V8UvUBOrYmczZZBsDSOlM6R6IQE6JGErA1F9IqOsQUy+ QR1uREe+Oe9Nx1EfdtS8nyUqFFqwYLOqGs8AAMCRL0LNLb== ID Date Data Source [id number] 12/14/2019 11:13:00 AM EDT [facility] Name Value Range Interpretation Code Description Data Rema rce(s) Supporting Document(s) SARS coronavirus 2 RNA [facility] This lab was ordered by [facility] and reported by [facility]. ID Date Data Source [id number] 12/15/2019 09:07:00 AM EDT [facility] be Performed at: RN - [facility] [address] [id number] Director: Liane Colin MD, Phone: [phone] Name Value Range Interpretation Code Description Data Rema rce(s) Supporting Document(s) SARS-CoV-2, VIET Not Detected Not Detected [facility] This nucleic acid amplification test was developed and itsperformance characteristics determined by [facility]. Nucleic acid amplification tests include PCRand TMA. This test has not been FDA cleared or approved.This test has been authorized by FDA under an Emergency UseAuthorization (EUA). This test is only authorized forthe duration of time the declaration that circumstancesexist justifying the authorization of the emergency use ofin vitro diagnostic tests for detection of SARS-CoV-2 virusand/or diagnosis of COVID-19 infection under yhecnae066(b)(1) of the Act, 21 U.S.C. 360bbb-3(b) (1), unless theauthorization is terminated or revoked sooner.When diagnostic testing is negative, the possibility of afalse negative result should be considered in the contextof a patient's recent exposures and the presence ofclinical signs and symptoms consistent with COVID-19. Anindividual without symptoms of COVID-19 and who is notshedding SARS-CoV-2 virus would expect to have a negative(not detected) result in this assay.Methodology: Nucleic Acid Amplification (VIET) ID Date Data Source [id number] 12/10/2019 08:29:00 AM EDT [facility] ([facility] Name Value Range Interpretation Code Description Data Rema rce(s) Supporting Document(s) Urine Culture Laboratory test result Normal (applies t o non-numeric results) [facility] ([facility] FULL REPORT IN LAB NOTES ([facility] and [facility] ). NO GROWTH ID Date Data Source [id number] 12/10/2019 08:29:00 AM EDT [facility] ([facility] Name Value Range Interpretation Code Description Data Rema rce(s) Supporting Document(s) Appearance, Urine Laboratory test result Normal (applies to non-numeric results) [facility] ([facility] ) PH,Urine 6.0 units 5.0-9.0 Normal (applies to non-numeric resul ts) [facility] ([facility] Color, Urine Laboratory test result Normal (applies to non -numeric results) [facility] ([facility] Specific [place] Urine Auto 1.017 1.002-1.035 Norm al (applies to non-numeric results) [facility] ([facility] ) Glucose, Urine (Ua) Auto Laboratory test result Normal (applies to non-numeric results) [facility] ([facility] ) Protein, Urine Auto Laboratory test result Above high norm al [facility] ([facility] Bilirubin, Urine Auto Laboratory test result Nor mal (applies to non-numeric results) [facility] ([facility] ) Urobilinogen, Urine Auto 2.0 mg/dL 0.0-2.0 Above high normal [facility] ([facility] Ketone, Urine Auto Laboratory test result Normal (applies to non-numeric results) [facility] ([facility] ) Blood, Urine Blood Laboratory test result Normal (applies to non-numeric results) [facility] ([facility] ) Nitrite, Urine Auto Laboratory test result Shante l (applies to non-numeric results) [facility] ([facility] ) Leukocyte Esterase, Urine Auto Laboratory test result Normal (applies to non- numeric results) [facility] ([facility] ) Bacteria, Urine Auto Laboratory test result Norm al (applies to non-numeric results) [facility] ([facility] ) RBC, Urine Auto 3 /HPF 0-3 Normal (applies to non-numeric results) [facility] ([facility] WBC, Urine Auto 0 /HPF 0-3 Normal (applies to non-numeric results) [facility] ([facility] Squamous Epithelial Cell Ur AU 0 /HPF 0-6 N ormal (applies to non-numeric results) [facility] ([facility] ) Hyaline Cast, Urine Auto 0 /LPF 0-1 Normal (applies to non -numeric results) [facility] ([facility] ID Date Data Source [id number] 12/10/2019 08:25:00 AM EDT [facility] ([facility] Name Value Range Interpretation Code Description Data Rema rce(s) Supporting Document(s) Glucose, Fasting 98 mg/dL 70-100 Normal (applies to non-numeric results) [facility] Creatinine For GFR 1.26 mg/dL 0.70-1.30 Normal (applies to non -numeric results) [facility] ([facility] Glomerular Filtration Rate 58.3 Normal (applies to n on-numeric results) [facility] ([facility] <content>Units are mL/min/1.73 m2</content>
<content></content>
<content>Chronic Kidney Disease Staging per NKF:</content>
<content></content>
<content>Stage I & II GFR >=60 Normal to Mildly Decreased</content>
<content>Stage III GFR 30-59 Moderately Decreased</content>
<content>Stage IV GFR 15-29 Severely Decreased</content>
<content>Stage V GFR <15 Very Little GFR Left</content>
<content>ESRD GFR <15 on RESERVATIONS CLERK</content>
<content></content> Blood Urea Nitrogen 23 mg/dL 7-18 Above high normal [facility] ([facility] Potassium Serum 4.8 meq/L 3.5-5.1 Normal (applies to non-numeric results) [facility] ([facility] Sodium Level 142 meq/L 136-145 Normal (applies to non-numeric res ults) [facility] ([facility] Chloride Level 107 meq/L 98-107 Normal (applies to non-numeric r esults) [facility] ([facility] Carbon Dioxide Level 31 meq/L 21-32 Normal (applies to non-num estela results) [facility] ([facility] Calcium Level 8.7 mg/dL 8.8-10.2 Below low normal [facility] T ([facility] Anion Gap 4 meq/L 8-16 Below low normal [facility] ( [facility] ID Date Data Source [id number] 12/10/2019 08:25:00 AM EDT [facility] ([facility] Name Value Range Interpretation Code Description Data Rema rce(s) Supporting Document(s) Inr 1.53 Normal (applies to non-numeric resul ts) [facility] ([facility] THERAPUTIC HUMAN INR VALUES INDICATIONS NORMAL RANGES PROPHYLAXIS/TREATMENT OF: VENOUS THROMBOSIS 2.0-3.0 PULMONARY EMBOLISM 2.0-3.0 PREVENTION OF SYSTEMIC EMBOLISM FROM: TISSUE HEART VALVES 2.0-3.0 ACUTE MYOCARDIAL INFARCTION 2.0-3.0 VALVULAR HEART DISEASE 2.0-3.0 ATRIAL FIBRILLATION 2.0-3.0 MECHANICAL VALVES(HIGH RISK) 2.5-3.5 RECURRENT MYOCARDIAL INFARCTION 2.5-3.5 Prothrombin Time 18.7 s 12.5-14.3 Above high normal M [facility]ENT ([facility] ID Date Data Source [id number] 12/10/2019 08:25:00 AM EDT [facility] ([facility] Name Value Range Interpretation Code Description Data Rema rce(s) Supporting Document(s) Red Blood Count 4.58 10 4.30-6.10 Normal (applies to non-numeric results) [facility] ([facility] White Blood Count 4.8 10 4.0-10.0 Normal (applies to non-numeri c results) [facility] ([facility] Hemoglobin 10.3 g/dL 13.5-17.5 Below low normal [facility] ( [facility] Hematocrit 33.5 % 42.0-52.0 Below low normal [facility] ( [facility] Mean Corpuscular Volume 73.1 fl 80.0-96.0 Below low normal [facility] ([facility] Red Cell Distribution Width 17.5 % 11.5-14.5 Above high normal [facility] ([facility] Mean Corpuscular HGB Conc 30.7 g/dL 32.0-36.5 Below low normal [facility] ([facility] Mean Corpuscular Hemoglobin 22.5 pg 27.0-33.0 Below low normal [facility] ([facility] Lymph % 13.4 % 24.0-44.0 Below low normal [facility] ( [facility] Neutrophils % 72.2 % 36.0-66.0 Above high normal MEDE NT ([facility] Platelet Count, Automated 165 10 150-450 Normal (applies to non-numeric results) [facility] ([facility] ) [place] % 9.3 % 0.0-5.0 Above high normal [facility] ([facility] Eos % 4.3 % 0.0-3.0 Above high normal [facility] ([facility] Baso % 0.4 % 0.0-1.0 Normal (applies to non-numeric resul ts) [facility] ([facility] Nucleated Red Blood Cell % 0.0 % 0-0 Normal (applies to n on-numeric results) [facility] ([facility] Immature Granulocyte % 0.4 % 0-3.0 Normal (applies to non-n umeric results) [facility] ([facility] Lymph # 0.7 10 1.5-5.0 Below low normal [facility] ( [facility] [place] # 0.5 10 0.0-0.8 Normal (applies to non-numeric resul ts) [facility] ([facility] Neutrophils # 3.5 10 1.5-8.5 Normal (applies to non-numeric re sults) [facility] ([facility] Eos # 0.2 10 0.0-0.5 Normal (applies to non-numeric resul ts) [facility] ([facility] Baso # 0.0 10 0.0-0.2 Normal (applies to non-numeric resul ts) [facility] ([facility] ID Date Data Source [id number] 12/10/2019 08:18:00 AM EDT [facility] ([facility] Name Value Range Interpretation Code Description Data Rema rce(s) Supporting Document(s) White Blood Count 4.8 10 4.0-10.0 [facility] ([facility]) Red Blood Count 4.57 10 4.30-6.10 [facility] ([facility]) Hemoglobin 10.0 g/dL 13.5-17.5 [facility] ([facility]) Hematocrit 33.1 % 42.0-52.0 [facility] ([facility]) Mean Corpuscular Volume 72.4 fl 80.0-96.0 M [facility] ([facility]) Mean Corpuscular HGB Conc 30.2 g/dL 32.0-36.5 [facility] ([facility]) Red Cell Distribution Width 17.5 % 11.5-14.5 [facility] ([facility]) Mean Corpuscular Hemoglobin 21.9 pg 27.0-33.0 [facility] ([facility]) Platelet Count, Automated 175 10 150-450 [facility] ([facility]) Nucleated Red Blood Cell % 0.0 % 0-0 [facility] ([facility]) ID Date Data Source [id number] 12/10/2019 08:18:00 AM EDT [facility] ([facility] Name Value Range Interpretation Code Description Data Rema rce(s) Supporting Document(s) Red Blood Count 4.57 10 4.30-6.10 Normal (applies to non-numeric results) [facility] ([facility] White Blood Count 4.8 10 4.0-10.0 Normal (applies to non-numeri c results) [facility] ([facility] Mean Corpuscular Volume 72.4 fl 80.0-96.0 Below low normal [facility] ([facility] Hemoglobin 10.0 g/dL 13.5-17.5 Below low normal [facility] ( [facility] Hematocrit 33.1 % 42.0-52.0 Below low normal [facility] ( [facility] Mean Corpuscular Hemoglobin 21.9 pg 27.0-33.0 Below low normal [facility] ([facility] Red Cell Distribution Width 17.5 % 11.5-14.5 Above high normal [facility] ([facility] Mean Corpuscular HGB Conc 30.2 g/dL 32.0-36.5 Below low normal [facility] ([facility] Platelet Count, Automated 175 10 150-450 Normal (applies to non-numeric results) [facility] ([facility] ) Nucleated Red Blood Cell % 0.0 % 0-0 Normal (applies to n on-numeric results) [facility] ([facility] ID Date Data Source [id number] 12/03/2019 07:42:00 AM EDT [facility] Name Value Range Interpretation Code Description Data Rema rce(s) Supporting Document(s) Inr 1.70 [facility] ([facility]) THERAPUTIC HUMAN INR VALUES INDICATIONS NORMAL RANGES PROPHYLAXIS/TREATMENT OF: VENOUS THROMBOSIS 2.0-3.0 PULMONARY EMBOLISM 2.0-3.0 PREVENTION OF SYSTEMIC EMBOLISM FROM: TISSUE HEART VALVES 2.0-3.0 ACUTE MYOCARDIAL INFARCTION 2.0-3.0 VALVULAR HEART DISEASE 2.0-3.0 ATRIAL FIBRILLATION 2.0-3.0 MECHANICAL VALVES(HIGH RISK) 2.5-3.5 RECURRENT MYOCARDIAL INFARCTION 2.5-3.5 Prothrombin Time 20.4 s 12.5-14.3 [facility] ID Date Data Source [id number] 11/21/2019 09:37:00 AM EDT [facility] Name Value Range Interpretation Code Description Data Rema rce(s) Supporting Document(s) Blood Urea Nitrogen 20 mg/dL 7-18 [facility] ([facility]) Glucose, Fasting 98 mg/dL 70-100 [facility] Creatinine For GFR 1.31 mg/dL 0.70-1.30 [facility] ([facility]) Glomerular Filtration Rate 55.8 [facility] ([facility]) <content>Units are mL/min/1.73 m2</content>
<content></content>
<content>Chronic Kidney Disease Staging per NKF:</content>
<content></content>
<content>Stage I & II GFR >=60 Normal to Mildly Decreased</content>
<content>Stage III GFR 30-59 Moderately Decreased</content>
<content>Stage IV GFR 15-29 Severely Decreased</content>
<content>Stage V GFR <15 Very Little GFR Left</content>
<content>ESRD GFR <15 on RESERVATIONS CLERK</content>
<content></content> Sodium Level 142 meq/L 136-145 [facility] ([facility]) Carbon Dioxide Level 29 meq/L 21-32 [facility] ([facility]) Chloride Level 109 meq/L 98-107 [facility] ([facility]) Potassium Serum 4.7 meq/L 3.5-5.1 [facility] ([facility]) Anion Gap 4 meq/L 8-16 [facility] Calcium Level 8.9 mg/dL 8.8-10.2 [facility] ([facility]) ID Date Data Source [id number] 11/21/2019 09:37:00 AM EDT [facility] ([facility]) Name Value Range Interpretation Code Description Data Rema rce(s) Supporting Document(s) Hemoglobin 9.7 g/dL 13.5-17.5 [facility] ([facility]) White Blood Count 5.0 10 4.0-10.0 [facility] ([facility]) Red Blood Count 4.33 10 4.30-6.10 [facility] ([facility]) Mean Corpuscular Volume 72.7 fl 80.0-96.0 M [facility] ([facility]) Hematocrit 31.5 % 42.0-52.0 [facility] ([facility]) Mean Corpuscular Hemoglobin 22.4 pg 27.0-33.0 [facility] ([facility]) Red Cell Distribution Width 17.9 % 11.5-14.5 [facility] ([facility]) Mean Corpuscular HGB Conc 30.8 g/dL 32.0-36.5 [facility] ([facility]iology [facility]) Nucleated Red Blood Cell % 0.0 % 0-0 [facility] (Cardiology [facility]) Platelet Count, Automated 180 10 150-450 [facility] ([facility]) ID Date Data Source [id number] 11/21/2019 09:37:00 AM EDT [facility] ([facility] Name Value Range Interpretation Code Description Data Rema rce(s) Supporting Document(s) Magnesium [Mass/volume] in Serum or Plasma Laboratory test result [facility]) ID Date Data Source [id number] 11/21/2019 09:34:00 AM EDT [facility] ([facility] Name Value Range Interpretation Code Description Data Rema rce(s) Supporting Document(s) Prothrombin Time 34.2 s 12.5-14.3 [facility] ([facility]) Inr 3.28 [facility] ([facility]) THERAPUTIC HUMAN INR VALUES INDICATIONS NORMAL RANGES PROPHYLAXIS/TREATMENT OF: VENOUS THROMBOSIS 2.0-3.0 PULMONARY EMBOLISM 2.0-3.0 PREVENTION OF SYSTEMIC EMBOLISM FROM: TISSUE HEART VALVES 2.0-3.0 ACUTE MYOCARDIAL INFARCTION 2.0-3.0 VALVULAR HEART DISEASE 2.0-3.0 ATRIAL FIBRILLATION 2.0-3.0 MECHANICAL VALVES(HIGH RISK) 2.5-3.5 RECURRENT MYOCARDIAL INFARCTION 2.5-3.5 ID Date Data Source [id number] 11/14/2019 08:36:00 AM EDT [facility] ([facility] Name Value Range Interpretation Code Description Data Rema rce(s) Supporting Document(s) Glucose, Fasting 95 mg/dL 70-100 [facility] ([facility] Blood Urea Nitrogen 26 mg/dL 7-18 [facility] ([facility]diology [facility]) Glomerular Filtration Rate 58.9 [facility] (Cardiology [facility]) <content>Units are mL/min/1.73 m2</content>
<content></content>
<content>Chronic Kidney Disease Staging per NKF:</content>
<content></content>
<content>Stage I & II GFR >=60 Normal to Mildly Decreased</content>
<content>Stage III GFR 30- 59 Moderately Decreased</content>
<content>Stage IV GFR 15-29 Severely Decreased</content>
<content>Stage V GFR <15 Very Little GFR Left</content>
<content>ESRD GFR <15 on RESERVATIONS CLERK</content>
<content></content> Creatinine For GFR 1.25 mg/dL 0.70-1.30 [facility] ([facility]) Potassium Serum 4.7 meq/L 3.5-5.1 [facility] ([facility]) Sodium Level 141 meq/L 136-145 [facility] ([facility]) Chloride Level 108 meq/L 98-107 [facility] ([facility]) Anion Gap 3 meq/L 8-16 [facility] Carbon Dioxide Level 30 meq/L 21-32 [facility] ([facility]) Calcium Level 9.0 mg/dL 8.8-10.2 [facility] ([facility]) ID Date Data Source [id number] 11/14/2019 08:36:00 AM EDT [facility] ([facility]) Name Value Range Interpretation Code Description Data Rema rce(s) Supporting Document(s) Red Blood Count 3.88 10 4.30-6.10 [facility] ([facility]) White Blood Count 4.9 10 4.0-10.0 [facility] ([facility]) Mean Corpuscular Volume 74.5 fl 80.0-96.0 M [facility] ([facility]) Hemoglobin 8.9 g/dL 13.5-17.5 [facility] ([facility]) Hematocrit 28.9 % 42.0-52.0 [facility] ([facility]) Mean Corpuscular HGB Conc 30.8 g/dL 32.0-36.5 [facility] ([facility]) Mean Corpuscular Hemoglobin 22.9 pg 27.0-33.0 [facility] ([facility]) Platelet Count, Automated 221 10 150-450 [facility] ([facility] [facility]) Red Cell Distribution Width 18.8 % 11.5-14.5 [facility] (Cardiology [facility]) Nucleated Red Blood Cell % 0.0 % 0-0 [facility] (Cardiology [facility]) ID Date Data Source [id number] 10/29/2019 12:59:00 PM EDT [facility] ([facility] Name Value Range Interpretation Code Description Data Rema rce(s) Supporting Document(s) Inr 1.64 [facility] ([facility]) THERAPUTIC HUMAN INR VALUES INDICATIONS NORMAL RANGES PROPHYLAXIS/TREATMENT OF: VENOUS THROMBOSIS 2.0-3.0 PULMONARY EMBOLISM 2.0-3.0 PREVENTION OF SYSTEMIC EMBOLISM FROM: TISSUE HEART VALVES 2.0-3.0 ACUTE MYOCARDIAL INFARCTION 2.0-3.0 VALVULAR HEART DISEASE 2.0-3.0 ATRIAL FIBRILLATION 2.0-3.0 MECHANICAL VALVES(HIGH RISK) 2.5-3.5 RECURRENT MYOCARDIAL INFARCTION 2.5-3.5 Prothrombin Time 19.8 s 11.8-14.0 [facility] ([facility] ID Date Data Source [id number] 10/25/2019 03:07:[address] [facility] NT INFORMATIONPatient MRN Name Date of Age Gend*PT [id number] Odin Jones 1935 84 years M IPPT Location Admission Date/Time Visit ID Attending [id number] 10/16/19 1427 --- --- EPI ID CSN Admitting Provider [id number] Elizabeth De La Garza MD([id number]) Attestation signed by Elizabeth De La Garza MD at 10/25/2019 3:07 PMI saw and evaluated the patient and reviewed Wesley's note. I agree with thehistory, physical and medical decision makingSignature: HANNAH Montesate: October 25, 2019Time: 3:07 PM --Surgical Discharge SummaryOdin SaeedRN: [id number] date: 10/16/2019Admitting Physician: HANNAH Montesischarge date and time:Discharge Orders Placed(From admission, onward) NoneDischarge Physician: David Blackmon Diagnosis: <principal problem not specified>Secondary Diagnoses: Active Problems: Pacemaker lead failure, initial encounterIndication for Admission: Odin Jones is a pleasant 84 years male whorecently underwent coronary artery bypass graft x3, cryoablation to left and theright atrium with clipping of the left atrial appendage on 09/20/2019 by . Pt was discharged to [facility] on POD 8 and then readmitted briefly withdyspnea. He was diur esed which improved this. Pt was discharged from [facility] andonce home yesterday he received a call stating that his pacemaker lead ismalfunctioning.Hospital Course & Complications: The patient was admitted to [facility] on 10/16/19. Hehad a supratherpeutic INR without active bleeding. Coumadin was held to allowhis INR to drop while awaiting lead extraction. On 10/23/19, he received [facility] herman INR of 1.6 prior to undergoing pacemaker system extraction, followed byinsertion of dual-chamber [employer] pacemaker by Dr. Arshad. He wastransferred to the floor after his procedure and is currently in SR. Lopressorwas restarted. He is on room air and walked independently. Discussed withattending physician and Dr. Arshad, patient is stable for discharge hometoday.He will continue coumadin 3 mg daily with INR on 10/26/19. Further dosinginstructions per Dr. Blair. He will also follow up with Dr. Blair for PPMcheck.Follow up:Dr. 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 (N/A) - MD BOOKED 10/22/19 @0840. PER MD PTCLEARED, PENDING COVID TEST. MD AVAILABLE TO FOLLOW. 1 Day Post-OpSignificant Diagnostic Studies:Lab ResultsComponent Value Date INR 1.26 10/24/2019 INR 1.60 10/23/2019 INR 1.90 10/22/2019 PROTIME 13.1 (H) 10/24/2019 PROTIME 16.4 (H) 10/23/2019 PROTIME 19.2 (H) 10/22/2019Lab ResultsComponent Value Date WBC 6.7 10/24/2019 HGB 8.0 (L) 10/24/2019 HCT 25.7 (L) 10/24/2019 PLT 151 10/24/2019 ALT 24 10/16/2019 AST 16 10/16/2019 NA 141 10/24/2019 K 5.0 10/24/2019 CL 107 10/24/2019 CREATININE 1.45 (H) 10/24/2019 BUN 29 (H) 10/24/2019 CO2 31 10/24/2019 INR 1.26 10/24/2019 HGBA1C 5.7 09/17/2019Treatments: No AUSTIN-I/ARB due to SBP < 100See AVS for medication list.Discharge Exam:Blood Pressure: BP: 118/59 Pulse: Heart Rate: 77Temperature: Temp: 97.8 F Respirations: Resp: 18Admission Weight: Weight: 96.6 kg (213 lb) O2 Saturation: SpO2: 93 %Today's Weight: Weight: 98 kg (216 lb 1.6 oz)Pleasant, comfortable, not in acute distress.Awake, alert, oriented times 3.Moves all extremities.Lungs: Clear to auscultation bilaterally.Heart: regular rate and rhythmAbdomen: Soft, nontender, bowel sounds present.Extremities: No edema.Wound/Incision: clean, dry, no drainage and dermabond over incisionRight groin suture removed.Discharged Condition:stableDisposition: Home or Self CareSignature: MUSA Blackmonate: October 24, 2019Time: 9:53 AM Name Value Range Interpretation Code Description Data [facility](s) Supporting Document(s) ID Date Data Source [id number] 10/24/2019 03:18:13 AM EDT [facility] Name Value Range Interpretation Code Description Data [facility](s) Supporting Document(s) SODIUM 141 mmol/L (136-145) [facility] POTASSIUM 5.0 mmol/L (3.6-5.2) [facility] CHLORIDE 107 mmol/L (100-108) [facility] CO2 31 mmol/L (22-31) [facility] ANION GAP 3 mmol/L (7-16) L [facility] UREA NITROGEN 29 mg/dL (7-24) H [facility] CREATININE 1.45 mg/dL (0.80-1.30) H [facility] BUN/CREAT RATIO 20.0 RATIO (10.0-20.0) [facility] GLUCOSE 126 mg/dL (70-99) H [facility] CALCIUM 8.9 mg/dL (8.4-10.2) [facility] GFR 47 ml/min/1.73m2 (>59) L [facility] GFR ( AMER) 56 ml/min/1.73m2 (>59) L [facility] GFR INTERPRETATION [facility] --NORMAL KIDNEY FUNCTION OR MILD DISEASE - GFR >OR= 60CHRONIC KIDNEY DISEASE - GFR 15 - 59RENAL FAILURE - GFR <15 Est. GFR calculation based on the MDRDstudy equation, which assumes a steadystate for creatinine. Est. GFR should notbe used for medication dosing. ID Date Data Source [id number] 10/24/2019 02:55:01 AM EDT [facility] Name Value Range Interpretation Code Description Data Rem[facility] rce(s) Supporting Document(s) PT 13.1 s (9.2-11.9) H [facility] INR 1.26 [facility] SUGGESTED THERAPEUTIC RANGES USING INR F ORSTABILIZED ANTICOAGULATED PATIENTS:STANDARD DOSE THERAPY INR 2.0-3.0 DVT, PE, PREVENT DVT OR EMBOLISMHIGH DOSE THERAPY INR 2.5-3.5 PREVENT EMBOLISM FROM MECHANICAL HEART VALVE ID Date Data Source [id number] 10/24/2019 02:45:52 AM EDT [facility] Name Value Range Interpretation Code Description Data Rema rce(s) Supporting Document(s) WBC 6.7 10*3/uL (4.1-11.0) [facility] RBC 3.60 10*6/uL (4.60-6.10) L [facility] HGB 8.0 g/dL (13.5-18.0) L [facility] HCT 25.7 % (41.0-53.0) L [facility] MCV 71.2 fL (80.0-95.0) L [facility] MCH 22.3 pg (27.0-32.0) L [facility] MCHC 31.3 g/dL (32.0-36.0) L [facility] RDW 17.9 % (10.5-14.5) H [facility] PLT 151 10*3/uL (150-450) [facility] MPV 8.6 fL (7.1-10.7) [facility] ID Date Data Source [id number] 10/23/2019 05:13:40 PM EDT [facility] [place]PAT[place] NT INFORMATIONPatient MRN Name Date of Age Gend*PT [id number] Odin Jones 1935 84 years M IPPT Location Admission Date/Time Visit ID Attending Provider --- --- --- --- EPI ID CSN Admitting Provider [id number] ---[place] EXAMPerformed by: Terry Patino MDInformation: Diagnostic Indication for WASHINGTON: suspected pericardial effusion Physician Requesting Echo: Sean Ponce MD Patient Location: OR Intubated: Yes Heart Visualized: No Modalities: 2DEchocardiographic and Doppler Measurements:Ventricles: Right Ventricle: Global Function: normal Left Ventricle: Cavity size: dilated Global Function: Normal Ejection Fraction %: 40 Regional wall motion is normal unless noted below:Valves: Aortic Valve: Area (cm ): N/A Leaflet Motion: normal Mitral Valve: Area (cm ): N/A Leaflet Motion: normal Tricuspid Valve: Pulmonic Valve: Other Findings: Pericardium: normalSTS Required Documentation: Pre OP CPB: Diffuse Aortic Calcification (Porcelain Aorta): No Assessment of Ascending Aorta/Arch for Atheroma/Plaque: No Assessment of Aorta Disease: Normal Aorta/No or minimal plaque Aortic Condition Altered Plan: N o Highest Level Aortic Insufficiency/Regurg: None Highest Level Mitral Insufficiency/Regurg: Trace/trivial Eccentric Jet: No Highest Level Tricuspid Insufficiency/Regurg: Trace/trivial ISSA (cm ): N/A Aortic Mean Gradient (mmHg): N/A MVA (cm ): N/A Mitral Mean Gradient (mmHg): N/A Post OP CPB: Post Op Echo Performed to Evaluate Valve(s): No Highest Level Aortic Insufficiency/Regurg: None Highest Level Mitral Insufficiency/Regurg: Trace/trivial Highest Level Tricuspid Insufficiency/Regurg: Trace/trivial Highest Level Pulmonic Insufficiency/Regurg: None Post Op Ejection Fraction %: 40 Repaired/Replaced Aortic Valve: No ISSA (cm ): N/A Mean Gradient (mmHg): N/A Repaired/Replaced Mitral Valve: No MVA (cm ): N/A Mean Gradient (mmHg): N/A Repaired/Replaced Tricuspid Valve: No Mean Gradient (mmHg): N/A New RWMAs: NoAnesthesia Information: Anesthesiologist: Terry Patino MD Surgeon: Sean Arshad MD Echocardiogram Comments: W[place] Performed to evaluate pericardial effusionafter lead extract NO pericardial effusion after lead extract Name Value Range Interpretation Code Description Data Rema rce(s) Supporting Document(s) ID Date Data Source [id number] 10/23/2019 04:09:37 PM EDT [address] [address]Zllbauc Name: ODIN PLASCENCIARDOB: 1935Sex: MOrdering Provider: SEAN Rudd Prov: SEAN Headleyferhu Provider: Procedure Performed: XR CHEST PORTABLEExam Date: 10/23/2019 16:05MRN: [id number] Number: [id number] Class: InpatientAccount #: [id number] for Exam: ppmTechnique: AP portable view obtained.Comparison: Radiograph earlier same dayFindings: There is now a left-sided dual-lead pacemaker. Single frontal view leads appear satisfactorily positioned. No pneumothorax. There is increased den sity at both lung bases left greater than right compatible bibasilar atelectasis/consolidation.IMPRESSION: Bibasilar atelectasis/consolidation left greater than right. No pneumothorax.Report electronically signed by: NATALIE KITCHEN On 10/23/2019 4:09 PMWorkstation ID: [id number] Name Value Range Interpretation Code Description Data [facility] rce(s) Supporting Document(s) ID Date Data Source [id number] 10/23/2019 03:50:01 PM EDT [facility] [place]PAT[place] NT INFORMATIONPatient MRN Name Date of Age Gend*PT [id number] Oidn Jones 1935 84 years M IPPT Location Admission Date/Time Visit ID Attending [facility] 1427 --- Elizabeth De La Garza MD([id number]) EPI ID CSN Admitting Provider [id number] Elizabeth De La Garza MD([id number]) Operative ReportPatient Name: Odin Jones of : 1935 Age: 84 yearsGender: male Primary Physician: PCP PROVIDER REQUESTEDDate of Surgery: 10/23/2019 PCP Phone: NoneElectrophysiologist: Ali Al-Mudamgha, MDAssistants: NoneProcedure: Pacemaker system extraction Insertion of dual-chamber pacemaker systemPre-operative Diagnosis: Malfunctioning ventricular lead Pacemaker syndromePost Operative Diagnosis: SameAnesthesia: GETALines: right femoral venous sheath right radial arterial lineImaging: Fluoroscopy TEESurgical Back Up: Dr. Avalos Loss: MinimalHistory: The patient is a 84 years male with a history of sick sinus syndromewho has a malfunctioning right ventricular pacemaker lead. In addition thepatient has had sinus rhythm restored surgically. He now requires insertion ofa dual-chamber pacemakerProcedure: Informed consent was obtained. Formal surgical backup was obtained.The patient was brought to the operating room and intubated. A Transesophagealecho probe was advanced into the posterior pharynx to allow for continuous TEEvisualization. A radial arterial line was placed. A Right femoral venous sheathwas placed. IV antibiotics were given preoperatively. The patient was preppedand draped in usual sterile fashion. An incision was made over the existingpacemaker the pocket was opened. Under fluoroscopic guidance utilizingextrathoracic technique the left subclavian vein was accessed twice and 2guidewires were placed. Next the existing pacemaker was disconnected andremoved. Dissection of the suture sleeve was performed and the tiedown sutureswere cut and removed. The lead was cut and stripped. A lead locking device wasplaced and secured with a 1 silk tie. Using a 9 [place] sub-C mechanical sheaththe right ventricular lead was extracted in its entirety. An 8 Frenchintroducer was inserted over 1 of the guidewires and the guidewire was removed.A new right ventricular pacing lead was advanced the RV apex. Appropriatepacing and sensing parameters were obtained. The sheath was removed. The leadwas secured the pocket with 1 silk x2. A second 8 [place] introducer was placedover the second guidewire and the guidewire was removed. Right atrial pacinglead was advanced the right atrial appendage. Appropriate pacing and sensingparameters were obtained. The sheath was removed. The lead was secured thepocket with 1 silk x2. The leads were then connected to a new dual- chamberpacemaker which was placed into the pocket and secured with a 1 silk stitch.The pocket was closed with 2-0 Vicryl. The skin was closed with Monocryl. Adressing was applied. The femoral sheath was then removed. Hemostasis wasmaintained with a unvuxs-im-[id number] stitch.Transesophageal ECHO Visualization: Continuous Transesophageal ECHO wasperformed from the onset of the procedure until its completion at no time wasthere any evidence of a pleural effusion, tamponade, a pericardial effusion,valvular avulsion and/or an embolic event. The WASHINGTON was considered unchangedfrom the onset of the procedure until its completion.Implanted Device Data: See implant recordReplaced Device Data: See implant recordStimulation Thresholds: See implant recordSpecimens: NoneComplications: NoneConclusion:Successful pacemaker system extractionSuccessful insertion of [place] MRI conditional dual-chamber pacemaker systemSignature: Sean Arshad MD, [facility], RSCardiac Electrophysiology and Arrhythmia ServiceDate: 10/23/2019Time: 3:47 PMThis document or parts of this document, were dictated using [employer]. A reasonable attempt at proofreading has been made to minimize errors.Please call with any questions or corrections. Name Value Range Interpretation Code Description Data Rema rce(s) Supporting Document(s) ID Date Data Source [id number] 10/23/2019 03:43:10 PM EDT [facility] Name Value Range Interpretation Code Description Data Rema rce(s) Supporting Document(s) XR FLUORO PACEMAKER INSERT [facility] ID Date Data Source [id number] 10/23/2019 03:13:04 PM EDT [facility] [place]PAT[place] NT INFORMATIONPatient MRN Name Date of Age Gend*PT [id number] Odin Jones 1935 84 years M IPPT Location Admission Date/Time Visit ID Attending Provider --- --- --- --- EPI ID CSN Admitting Provider [id number] ---Arterial Line PlacementPatient location during procedure: ORIndications for arterial line: hemodynamic monitoringStaffingPerformed by: JUAN LUIS Christopherompleted: patient identified, risks and benefits discussed, surgical consentobtained, anesthesia consent obtained, monitors and equipment checked, pre-opevaluation completed, timeout performed, patient was prepped and draped in usualsterile fashion,Arterial Line InsertionSite prep: chlorhexidineAnesthesia: noneLaterality: rightLocation: radial arteryNeedle gauge: 20 GTechnique: Logan nger technique usedNumber of attempts: 1AssessmentSutured: noDressing: dressing appliedPatient tolerance: tolerated well Name Value Range Interpretation Code Description Data Rema rce(s) Supporting Document(s) ID Date Data Source [id number] 10/23/2019 03:12:38 PM EDT [facility] [place]PAT[place] NT INFORMATIONPatient MRN Name Date of Age Gend*PT [id number] Odin Jones 1935 84 years M IPPT Location Admission Date/Time Visit ID Attending Provider --- --- --- --- EPI ID CSN Admitting Provider [id number] ---AirwayPatient location during procedure: ORUrgency: electiveDifficult airway: noAdvanced airway equipment used: noStaffingPerformed by: Babatunde Plunkett CRNAAnesthesiologist: Terry Patino MDIndications and Patient ConditionIndications for airway management: anesthesiaPreoxygenated: yesPatient position: sniffingIn-line stabilization: noMask ventilation: 1 - vent by maskFinal Airway/ApproachesFinal airway type: ETTNumber of attempts at final approach: 1Number of other approaches attempted: 0Final Airway DetailsFinal ETT airway: ETT - singleCuffed: yesTechnique used for successful ETT placement: direct laryngoscopy and regularstyletCricoid pressure: noRSI: noInsertion site: oralBlade type/size: MAC 3.5ETT size: 8.0 mmMeasured from: lipsETT to lips: 23 cmPlacement verified by: chest auscultation and + ORMO2Tmhinmuqpxrx: equal breath sounds bilateral and CTAGrade view: grade I - full view of glottis Name Value Range Interpretation Code Description Data Rema rce(s) Supporting Document(s) ID Date Data Source [id number] 10/23/2019 11:30:00 AM EDT [facility] Name Value Range Interpretation Code Description Data Rema rce(s) Supporting Document(s) SARS coronavirus 2 RNA [Presence] in Res piratory specimen by VIET with probe detection [facility] This lab was reported by [facility]. ID Date Data Source [id number] 10/23/2019 02:32:51 PM EDT [facility] Name Value Range Interpretation Code Description Data Rema rce(s) Supporting Document(s) SPECIMEN DESCRIPTION [facility] COVID19 RESULT (NDET) [facility] THIS ASSAY AMPLIFIES AND DETECTSTHE TARG ET RNA USING REAL-TIME PCR.NEGATIVE 2019_NCOV RT-PCR RESULTS DONOT PRECLUDE 2019_NCOV INFECTION ANDSHOULD NOT BE USED THE SOLE BASISFOR PATIENT MANAGEMENT DECISIONS. COMMENT [facility] HODGE UNDER AN EMERGENCY USE AUTHORIZATION(EUA ) FOR THE DETECTION AND/OR DIAGNOSISOF THE VIRUS THAT CAUSES COVID-19.EMAILED TO [facility] IC AT [phone] [id number] [place] [id number]. ID Date Data Source [id number] 10/24/2019 12:15:57 AM EDT [facility] UNIT NUMBER [id number] LOOD COMPONENT TYPE RT24 PLAS 2ND CONTUNIT DIVISION 00STATUS OF UNIT TRANSFUSEDTRANSFUSION STATUS OK TO TRANSFUSEUNIT NUMBER [id number] COMPONENT TYPE RT24 PLAS 1ST CONTUNIT DIVISION 00STATUS OF UNIT TRANSFUSEDTRANSFUSION STATUS OK TO TRANSFUSE Name Value Range Interpretation Code Description Data Rema rce(s) Supporting Document(s) TRANSFUSE PLASMA [facility] ID Date Data Source [id number] 10/23/2019 03:50:51 AM EDT [facility] Name Value Range Interpretation Code Description Data Rema rce(s) Supporting Document(s) MAGNESIUM 2.2 mg/dL (1.7-2.4) [facility] ID Date Data Source [id number] 10/23/2019 03:50:51 AM EDT [facility] Name Value Range Interpretation Code Description Data Rema rce(s) Supporting Document(s) SODIUM 144 mmol/L (136-145) [facility] POTASSIUM 4.5 mmol/L (3.6-5.2) [facility] CHLORIDE 110 mmol/L (100-108) H [facility] CO2 28 mmol/L (22-31) [facility] ANION GAP 6 mmol/L (7-16) L [facility] UREA NITROGEN 34 mg/dL (7-24) H [facility] CREATININE 1.38 mg/dL (0.80-1.30) H [facility] BUN/CREAT RATIO 24.6 RATIO (10.0-20.0) H [facility] GLUCOSE 110 mg/dL (70-99) H [facility] CALCIUM 8.6 mg/dL (8.4-10.2) [facility] GFR 49 ml/min/1.73m2 (>59) L [facility] GFR ([facility]) 60 ml/min/1.73m2 (>59) [facility] GFR INTERPRETATION [facility] --NORMAL KIDNEY FUNCTION OR MILD DISEASE - GFR >OR= 60CHRONIC KIDNEY DISEASE - GFR 15 - 59RENAL FAILURE - GFR <15 Est. GFR calculation based on the MDRDstudy equation, which assumes a steadystate for creatinine. Est. GFR should notbe used for medication dosing. ID Date Data Source [id number] 10/23/2019 03:17:40 AM EDT [facility] Name Value Range Interpretation Code Description Data Rema rce(s) Supporting Document(s) PT 16.4 s (9.2-11.9) H [facility] INR 1.60 [facility] SUGGESTED THERAPEUTIC RANGES USING INR F ORSTABILIZED ANTICOAGULATED PATIENTS:STANDARD DOSE THERAPY INR 2.0-3.0 DVT, PE, PREVENT DVT OR EMBOLISMHIGH DOSE THERAPY INR 2.5-3.5 PREVENT EMBOLISM FROM MECHANICAL HEART VALVE ID Date Data Source [id number] 10/23/2019 03:05:16 AM EDT [facility] Name Value Range Interpretation Code Description Data Rema rce(s) Supporting Document(s) WBC 4.3 10*3/uL (4.1-11.0) [facility] [place] RBC 3.81 10*6/uL (4.60-6.10) L [facility] HGB 8.5 g/dL (13.5-18.0) L [facility] HCT 27.1 % (41.0-53.0) L [facility] MCV 71.1 fL (80.0-95.0) L [facility] MCH 22.4 pg (27.0-32.0) L [facility] MCHC 31.6 g/dL (32.0-36.0) L [facility] RDW 18.1 % (10.5-14.5) H [facility] PLT 153 10*3/uL (150-450) [facility] MPV 8.5 fL (7.1-10.7) [facility] ID Date Data Source [id number] 10/24/2019 02:29:58 PM EDT [facility] SPEC EXP DATE 10/25/2019PATI ENT ABO/Rh O POSITIVEANTIBODY SCREEN NEGATIVETESTING SITE PERFORMED AT [address] [place], [place] [address]BLOOD BANK COMMENT BLOOD TYPE CONFIRMED.UNIT NUMBER [id number] COMPONENT TYPE LEUKOPOOR RED CELLSUNIT DIVISION 00STATUS OF UNIT REL FROM ALLOCTRANSFUSION STATUS OK TO TRANSFUSECROSSMATCH RESULT COMPATIBLEUNIT NUMBER [id number] COMPONENT TYPE LEUKOPOOR RED CELLSUNIT DIVISION 00STATUS OF UNIT REL FROM ALLOCTRANSFUSION STATUS OK TO TRANSFUSECROSSMATCH RESULT COMPATIBLEUNIT NUMBER [id number] COMPONENT TYPE LEUKOPOOR RED CELLSUNIT DIVISION 00STATUS OF UNIT REL FROM ALLOCTRANSFUSION STATUS OK TO TRANSFUSECROSSMATCH RESULT COMPATIBLEUNIT NUMBER [id number] COMPONENT TYPE LEUKOPOOR RED CELLSUNIT DIVISION 00STATUS OF UNIT REL FROM ALLOCTRANSFUSION STATUS OK TO TRANSFUSECROSSMATCH RESULT COMPATIBLE Name Value Range Interpretation Code Description Data Rema rce(s) Supporting Document(s) TYPE AND SCREEN [facility] [place] ID Date Data Source [id number] 10/22/2019 12:45:19 PM EDT [facility] Name Value Range Interpretation Code Description Data Rema rce(s) Supporting Document(s) ROOM TEMP AB SCREEN [facility] ROOM TEMP AB SCREEN NEGATIVE ID Date Data Source [id number] 10/22/2019 08:32:08 AM EDT [address] [id number] Name: ODIN TIANOB: 1935Sex: MOrdering Provider: WESLEY LOVEuthvinay Prov: WESLEY DUNHAMOReferhu Provider: Procedure Performed: XR CHEST PA AND LATERALExam Date: 10/22/2019 08:27MRN: [id number] Number: [id number] Class: InpatientAccount #: [id number] for Exam: pleural effusionTechnique: PA and lateral views obtained.Comparison: September 28, 2019Findings: The patient is status post sternotomy. The heart looks large but smaller compared to the prior study. There is an atrial closure device. There is a single lead ventricular pacemaker remain in good position. The right lung shows better aeration with smaller pleural effusion. There is no pneumothorax. The left hemithorax shows stable elevation left hemidiaphragm with no significant change in the small pleural effusion. There is no free beneath the diaphragms. Acute fracture is not seen in the skeletal structures.IMPRESSION: Slightly improved aeration on the right with a tiny effusion.Stable elevation left hemidiaphragm with stable pleural effusion. The heart looks less enlarged. The single lead pacemaker in the atrial closure device remain in good position. Follow-up should be determined clinically.Report electronically signed by: DIANNA FAUST On 10/22/2019 8:32 AMWorkstation ID: [id number] Name Value Range Interpretation Code Description Data Rema rce(s) Supporting Document(s) ID Date Data Source [id number] 10/22/2019 05:58:51 AM EDT [facility] Name Value Range Interpretation Code Description Data Rema rce(s) Supporting Document(s) PT 19.2 s (9.2-11.9) H [facility] INR 1.90 [facility] SUGGESTED THERAPEUTIC RANGES USING INR F ORSTABILIZED ANTICOAGULATED PATIENTS:STANDARD DOSE THERAPY INR 2.0-3.0 DVT, PE, PREVENT DVT OR EMBOLISMHIGH DOSE THERAPY INR 2.5-3.5 PREVENT EMBOLISM FROM MECHANICAL HEART VALVE ID Date Data Source [id number] 10/22/2019 05:46:54 AM EDT [facility] Name Value Range Interpretation Code Description Data Rema rce(s) Supporting Document(s) WBC 4.1 10*3/uL (4.1-11.0) [facility] [place] RBC 3.71 10*6/uL (4.60-6.10) L [facility] HGB 8.4 g/dL (13.5-18.0) L [facility] HCT 25.7 % (41.0-53.0) L [facility] MCV 69.2 fL (80.0-95.0) L [facility] MCH 22.6 pg (27.0-32.0) L [facility] MCHC 32.7 g/dL (32.0-36.0) [facility] RDW 17.7 % (10.5-14.5) H [facility] PLT 145 10*3/uL (150-450) L [facility] MPV 9.2 fL (7.1-10.7) [facility] ID Date Data Source [id number] 10/21/2019 10:12:44 AM EDT [facility] Name Value Range Interpretation Code Description Data Rema rce(s) Supporting Document(s) SODIUM 143 mmol/L (136-145) [facility] POTASSIUM 4.5 mmol/L (3.6-5.2) [facility] CHLORIDE 109 mmol/L (100-108) H [facility] CO2 31 mmol/L (22-31) [facility] ANION GAP 3 mmol/L (7-16) L [facility] UREA NITROGEN 36 mg/dL (7-24) H [facility] CREATININE 1.45 mg/dL (0.80-1.30) H [facility] BUN/CREAT RATIO 24.8 RATIO (10.0-20.0) H [facility] GLUCOSE 105 mg/dL (70-99) H [facility] CALCIUM 8.9 mg/dL (8.4-10.2) [facility] GFR 47 ml/min/1.73m2 (>59) L [facility] GFR ( AMER) 56 ml/min/1.73m2 (>59) L [facility] GFR INTERPRETATION [facility] --NORMAL KIDNEY FUNCTION OR MILD DISEASE - GFR >OR= 60CHRONIC KIDNEY DISEASE - GFR 15 - 59RENAL FAILURE - GFR <15 Est. GFR calculation based on the MDRDstudy equation, which assumes a steadystate for creatinine. Est. GFR should notbe used for medication dosing. ID Date Data Source [id number] 10/21/2019 03:03:05 AM EDT [facility] Name Value Range Interpretation Code Description Data Rema rce(s) Supporting Document(s) PT 23.5 s (9.2-11.9) H [facility] INR 2.35 [facility] SUGGESTED THERAPEUTIC RANGES USING INR F ORSTABILIZED ANTICOAGULATED PATIENTS:STANDARD DOSE THERAPY INR 2.0-3.0 DVT, PE, PREVENT DVT OR EMBOLISMHIGH DOSE THERAPY INR 2.5-3.5 PREVENT EMBOLISM FROM MECHANICAL HEART VALVE ID Date Data Source [id number] 10/21/2019 02:50:40 AM EDT [facility] Name Value Range Interpretation Code Description Data Rema rce(s) Supporting Document(s) WBC 4.4 10*3/uL (4.1-11.0) [facility] [place] RBC 3.91 10*6/uL (4.60-6.10) L [facility] HGB 8.8 g/dL (13.5-18.0) L [facility] HCT 26.9 % (41.0-53.0) L [facility] MCV 68.7 fL (80.0-95.0) [facility] MCH 22.4 pg (27.0-32.0) [facility] MCHC 32.6 g/dL (32.0-36.0) [facility] RDW 17.7 % (10.5-14.5) [facility] PLT 145 10*3/uL (150-450) [facility] MPV 8.4 fL (7.1-10.7) [facility] ID Date Data Source [id number] 10/20/2019 03:53:14 AM EDT [facility] Name Value Range Interpretation Code Description Data Rema rce(s) Supporting Document(s) PT 30.4 s (9.2-11.9) [facility] INR 3.09 [facility] SUGGESTED THERAPEUTIC RANGES USING INR F ORSTABILIZED ANTICOAGULATED PATIENTS:STANDARD DOSE THERAPY INR 2.0-3.0 DVT, PE, PREVENT DVT OR EMBOLISMHIGH DOSE THERAPY INR 2.5-3.5 PREVENT EMBOLISM FROM MECHANICAL HEART VALVE ID Date Data Source [id number] 10/20/2019 03:39:08 AM EDT [facility] Name Value Range Interpretation Code Description Data Rema rce(s) Supporting Document(s) WBC 4.2 10*3/uL (4.1-11.0) [facility] [place] RBC 3.90 10*6/uL (4.60-6.10) [facility] HGB 8.9 g/dL (13.5-18.0) [facility] HCT 27.2 % (41.0-53.0) [facility] MCV 69.6 fL (80.0-95.0) [facility] MCH 22.7 pg (27.0-32.0) [facility] MCHC 32.6 g/dL (32.0-36.0) [facility] RDW 17.8 % (10.5-14.5) [facility] PLT 139 10*3/uL (150-450) [facility] MPV 9.0 fL (7.1-10.7) [facility] ID Date Data Source [id number] 10/19/2019 03:20:43 AM EDT [facility] Name Value Range Interpretation Code Description Data Rema rce(s) Supporting Document(s) PT 46.5 s (9.2-11.9) [facility] INR 4.84 [facility] SUGGESTED THERAPEUTIC RANGES USING INR F ORSTABILIZED ANTICOAGULATED PATIENTS:STANDARD DOSE THERAPY INR 2.0-3.0 DVT, PE, PREVENT DVT OR EMBOLISMHIGH DOSE THERAPY INR 2.5-3.5 PREVENT EMBOLISM FROM MECHANICAL HEART VALVEALERTED CRITICAL RESULT DILSHAD Rhodes44 D4 [id number] ID Date Data Source [id number] 10/19/2019 03:18:48 AM EDT [facility] Name Value Range Interpretation Code Description Data Rema rce(s) Supporting Document(s) MAGNESIUM 2.4 mg/dL (1.7-2.4) [facility] ID Date Data Source [id number] 10/19/2019 03:18:48 AM EDT [facility] Name Value Range Interpretation Code Description Data Rema rce(s) Supporting Document(s) SODIUM 144 mmol/L (136-145) [facility] POTASSIUM 4.4 mmol/L (3.6-5.2) [facility] CHLORIDE 110 mmol/L (100-108) [facility] CO2 31 mmol/L (22-31) [facility] ANION GAP 3 mmol/L (7-16) L [facility] UREA NITROGEN 35 mg/dL (7-24) [facility] CREATININE 1.58 mg/dL (0.80-1.30) [facility] BUN/CREAT RATIO 22.2 RATIO (10.0-20.0) [facility] GLUCOSE 113 mg/dL (70-99) H [facility] CALCIUM 8.9 mg/dL (8.4-10.2) [facility] GFR 42 ml/min/1.73m2 (>59) L [facility] GFR ( AMER) 51 ml/min/1.73m2 (>59) L [facility] GFR INTERPRETATION [facility] --NORMAL KIDNEY FUNCTION OR MILD DISEASE - GFR >OR= 60CHRONIC KIDNEY DISEASE - GFR 15 - 59RENAL FAILURE - GFR <15 Est. GFR calculation based on the MDRDstudy equation, which assumes a steadystate for creatinine. Est. GFR should notbe used for medication dosing. ID Date Data Source [id number] 10/19/2019 03:02:27 AM EDT [facility] Name Value Range Interpretation Code Description Data Rema rce(s) Supporting Document(s) WBC 4.4 10*3/uL (4.1-11.0) [facility] [place] RBC 3.98 10*6/uL (4.60-6.10) L [facility] HGB 9.0 g/dL (13.5-18.0) L [facility] HCT 28.3 % (41.0-53.0) L [facility] MCV 71.1 fL (80.0-95.0) L [facility] MCH 22.7 pg (27.0-32.0) [facility] MCHC 31.9 g/dL (32.0-36.0) [facility] RDW 18.2 % (10.5-14.5) [facility] PLT 157 10*3/uL (150-450) [facility] MPV 8.8 fL (7.1-10.7) [facility] ID Date Data Source [id number] 10/18/2019 03:30:00 PM EDT [facility] Name Value Range Interpretation Code Description Data Rema rce(s) Supporting Document(s) Hemoglobin A1c/Hemoglobin.total in Blood 5.7 [facility] ([facility]) ID Date Data Source [id number] 10/18/2019 03:30:00 PM EDT [facility] ([facility] Name Value Range Interpretation Code Description Data Rema rce(s) Supporting Document(s) Albumin [Mass/volume] in Serum or Plasma Laboratory test result [facility] ([facility]) Calcium [Mass/volume] in Serum or Plasma Laboratory test result [facility] ([facility]) Carbon dioxide, total [Moles/volume] in Serum or Plasma 33 [facility] ([facility]) Alanine aminotransferase [Enzymatic activity/volume] in Serum or Pl asma 24 [facility] ([facility]) Chloride [Moles/volume] in Serum or Plasma 105 [facility] ([facility]) Alkaline phosphatase [Enzymatic activity/volume] in Se rum or Plasma Laboratory test result [facility] ([facility] [employer] [facility]) Protein [Mass/volume] in Serum or Plasma Laboratory test result [facility] ([facility]) Potassium [Moles/volume] in Serum or Plasma 3.8 [facility] ([facility]) Urea nitrogen [Mass/volume] in Serum or Plasma 36 [facility] ([facility]) Aspartate aminotransferase [Enzymatic activity/volume] in Serum or Plasma 16 [facility] ([facility]) Sodium 142 [facility] ([facility]) Creatinine For GFR 1.72 [facility] Glucose Laboratory test result 70-100 [facility] ([facility]) ID Date Data Source [id number] 10/18/2019 03:30:00 PM EDT [facility] ([facility] Name Value Range Interpretation Code Description Data Rema rce(s) Supporting Document(s) White Blood Count 4.4 4.3-10.9 [facility] ([facility]) Red Blood Count Laboratory test result 4.70-6.20 [facility] ([facility]) Platelets 152 130-400 [facility] ([facility]) Hemoglobin 9.0 13.0-17.0 [facility] ([facility]) Hematocrit 27.8 39.0-50.0 [facility] ([facility]) ID Date Data Source [id number] 10/18/2019 03:19:58 AM EDT [facility] Name Value Range Interpretation Code Description Data Rema rce(s) Supporting Document(s) PT 47.0 s (9.2-11.9) H [facility] [place] [facility] INR 4.90 HH [facility] [place] SUGGESTED THERAPEUTIC RANGES USING INR F ORSTABILIZED ANTICOAGULATED PATIENTS:STANDARD DOSE THERAPY INR 2.0-3.0 DVT, PE, PREVENT DVT OR EMBOLISMHIGH DOSE THERAPY INR 2.5-3.5 PREVENT EMBOLISM FROM MECHANICAL HEART VALVEALERTED CRITICAL RESULT TOCARRIGAN(48323) D4(78053) AT 0320 ON 10/18/19 [place] [address] ID Date Data Source [id number] 10/18/2019 03:15:28 AM EDT [facility] Name Value Range Interpretation Code Description Data Rema rce(s) Supporting Document(s) MAGNESIUM 2.4 mg/dL (1.7-2.4) [facility] ID Date Data Source [id number] 10/18/2019 03:15:28 AM EDT [facility] Name Value Range Interpretation Code Description Data Rema rce(s) Supporting Document(s) SODIUM 142 mmol/L (136-145) [facility] POTASSIUM 3.8 mmol/L (3.6-5.2) [facility] CHLORIDE 105 mmol/L (100-108) [facility] CO2 33 mmol/L (22-31) H [facility] ANION GAP 4 mmol/L (7-16) L [facility] UREA NITROGEN 36 mg/dL (7-24) H [facility] CREATININE 1.72 mg/dL (0.80-1.30) H [facility] BUN/CREAT RATIO 20.9 RATIO (10.0-20.0) [facility] GLUCOSE 122 mg/dL (70-99) H [facility] CALCIUM 8.8 mg/dL (8.4-10.2) [facility] GFR 38 ml/min/1.73m2 (>59) L [facility] GFR ( AMER) 46 ml/min/1.73m2 (>59) L [facility] GFR INTERPRETATION [facility] --NORMAL KIDNEY FUNCTION OR MILD DISEASE - GFR >OR= 60CHRONIC KIDNEY DISEASE - GFR 15 - 59RENAL FAILURE - GFR <15 Est. GFR calculation based on the MDRDstudy equation, which assumes a steadystate for creatinine. Est. GFR should notbe used for medication dosing. ID Date Data Source [id number] 10/18/2019 02:57:41 AM EDT [facility] Name Value Range Interpretation Code Description Data Rema rce(s) Supporting Document(s) WBC 4.4 10*3/uL (4.1-11.0) [facility] [place] [facility] [place] RBC 3.98 10*6/uL (4.60-6.10) L [facility] HGB 9.0 g/dL (13.5-18.0) L [facility] HCT 27.8 % (41.0-53.0) L [facility] MCV 69.8 fL (80.0-95.0) L [facility] MCH 22.7 pg (27.0-32.0) L [facility] MCHC 32.5 g/dL (32.0-36.0) [facility] RDW 18.4 % (10.5-14.5) H [facility] PLT 152 10*3/uL (150-450) [facility] MPV 9.0 fL (7.1-10.7) [facility] ID Date Data Source [id number] 10/17/2019 09:22:31 AM EDT [facility] Name Value Range Interpretation Code Description Data Rema rce(s) Supporting Document(s) EKG [facility] [id number] jb2 [file] [id number]= ID Date Data Source [id number] 10/17/2019 03:44:48 AM EDT [facility] [place] Name Value Range Interpretation Code Description Data Rema rce(s) Supporting Document(s) PT 56.0 s (9.2-11.9) H [facility] INR 5.90 HH [facility] SUGGESTED THERAPEUTIC RANGES USING INR F ORSTABILIZED ANTICOAGULATED PATIENTS:STANDARD DOSE THERAPY INR 2.0-3.0 DVT, PE, PREVENT DVT OR EMBOLISMHIGH DOSE THERAPY INR 2.5-3.5 PREVENT EMBOLISM FROM MECHANICAL HEART VALVEALERTED CRITICAL [place] (08895) [place] [address] ON 10.17.19 AT 0343 [place] [address] ID Date Data Source [id number] 10/17/2019 03:41:13 AM EDT [facility] Name Value Range Interpretation Code Description Data Rema rce(s) Supporting Document(s) MAGNESIUM 2.4 mg/dL (1.7-2.4) [facility] ID Date Data Source [id number] 10/17/2019 03:41:13 AM EDT [facility] Name Value Range Interpretation Code Description Data Rema rce(s) Supporting Document(s) SODIUM 145 mmol/L (136-145) [facility] POTASSIUM 3.9 mmol/L (3.6-5.2) [facility] CHLORIDE 109 mmol/L (100-108) H [facility] CO2 34 mmol/L (22-31) H [facility] ANION GAP 2 mmol/L (7-16) L [facility] UREA NITROGEN 43 mg/dL (7-24) H [facility] CREATININE 1.79 mg/dL (0.80-1.30) H [facility] BUN/CREAT RATIO 24.0 RATIO (10.0-20.0) [facility] GLUCOSE 101 mg/dL (70-99) H [facility] CALCIUM 9.0 mg/dL (8.4-10.2) [facility] GFR 37 ml/min/1.73m2 (>59) L [facility] GFR ( AMER) 44 ml/min/1.73m2 (>59) L [facility] GFR INTERPRETATION [facility] --NORMAL KIDNEY FUNCTION OR MILD DISEASE - GFR >OR= 60CHRONIC KIDNEY DISEASE - GFR 15 - 59RENAL FAILURE - GFR <15 Est. GFR calculation based on the MDRDstudy equation, which assumes a steadystate for creatinine. Est. GFR should notbe used for medication dosing. ID Date Data Source [id number] 10/17/2019 03:17:26 AM EDT [facility] Name Value Range Interpretation Code Description Data Rema rce(s) Supporting Document(s) WBC 4.2 10*3/uL (4.1-11.0) [facility] [place] [facility] [place] RBC 3.89 10*6/uL (4.60-6.10) L [facility] HGB 8.8 g/dL (13.5-18.0) L [facility] HCT 27.1 % (41.0-53.0) L [facility] MCV 69.6 fL (80.0-95.0) L [facility] MCH 22.7 pg (27.0-32.0) L [facility] MCHC 32.6 g/dL (32.0-36.0) [facility] RDW 18.2 % (10.5-14.5) H [facility] PLT 168 10*3/uL (150-450) [facility] MPV 8.8 fL (7.1-10.7) [facility] ID Date Data Source [id number] 10/16/2019 05:07:06 PM EDT [facility] Name Value Range Interpretation Code Description Data Rema rce(s) Supporting Document(s) COLOR [facility] APPEARANCE [facility] SPEC GRAV URINE 1.013 (1.003-1.030) [facility] PH URINE 5.5 (5.0-7.5) [facility] LEUK ESTERASE (NEG) [facility] NITRITE URINE (NEG) [facility] PROTEIN URINE (NEG) [facility] GLUCOSE URINE (NEG) [facility] KETONE URINE (NEG) [facility] [facility] [place] UROBILINOGEN 1.0 mg/dL (0-1.0) [facility] [place] [facility] [place] BILIRUBIN URINE (NEG) [facility] BLOOD/HGB URINE (NEG) [facility] ID Date Data Source [id number] 10/16/2019 04:56:02 PM EDT [facility] Name Value Range Interpretation Code Description Data Rema rce(s) Supporting Document(s) URN CULTURE HOLD [facility] FOR ADD ON CULTURE ID Date Data Source [id number] 10/16/2019 03:45:24 PM EDT [facility] Name Value Range Interpretation Code Description Data Rema rce(s) Supporting Document(s) POC NOVA GLU 116 mg/dL (70-99) H [facility] [place] [facility] [place] PERFOR[facility] BY [facility] CLINICAL STAFF ID Date Data Source [id number] 10/17/2019 09:22:52 AM EDT [facility] Name Value Range Interpretation Code Description Data Rema rce(s) Supporting Document(s) SPECIMEN DESCRIPTION [facility] METH RES STAPH AUR (NEG) [facility] ID Date Data Source [id number] 10/16/2019 04:49:16 PM EDT [facility] Name Value Range Interpretation Code Description Data Rema rce(s) Supporting Document(s) TOTAL PROTEIN 6.8 g/dL (6.4-8.2) [facility] ALBUMIN 3.3 g/dL (3.2-4.5) [facility] GLOBULIN 3.5 g/dL (2.7-4.3) [facility] ALB/GLOB RATIO 0.9 RATIO [facility] BILIRUBIN,TOTAL 0.8 mg/dL (0.0-1.0) [facility] PLEASE NOTE:Total bilirubin results may be falselyelevated in patients taking Eltrombopag. BILIRUBIN,CONJUGATED 0.3 mg/dL (0.0-0.3) [facility] BILIRUBIN,UNCONJ. 0.5 mg/dL (0.0-0.7) [facility] ALKALINE PHOSPHATASE 104 U/L (45-117) [facility] AST (SGOT) 16 U/L (11-39) [facility] ALT (SGPT) 24 U/L (12-78) [facility] ID Date Data Source [id number] 10/16/2019 04:49:16 PM EDT [facility] Name Value Range Interpretation Code Description Data Rema rce(s) Supporting Document(s) SODIUM 145 mmol/L (136-145) [facility] POTASSIUM 4.3 mmol/L (3.6-5.2) [facility] CHLORIDE 108 mmol/L (100-108) [facility] CO2 33 mmol/L (22-31) H [facility] ANION GAP 4 mmol/L (7-16) L [facility] UREA NITROGEN 43 mg/dL (7-24) H [facility] CREATININE 1.80 mg/dL (0.80-1.30) H [facility] BUN/CREAT RATIO 23.9 RATIO (10.0-20.0) H [facility] GLUCOSE 108 mg/dL (70-99) H [facility] CALCIUM 9.1 mg/dL (8.4-10.2) [facility] GFR 36 ml/min/1.73m2 (>59) L [facility] GFR ( AMER) 44 ml/min/1.73m2 (>59) L [facility] GFR INTERPRETATION [facility] --NORMAL KIDNEY FUNCTION OR MILD DISEASE - GFR >OR= 60CHRONIC KIDNEY DISEASE - GFR 15 - 59RENAL FAILURE - GFR <15 Est. GFR calculation based on the MDRDstudy equation, which assumes a steadystate for creatinine. Est. GFR should notbe used for medication dosing. ID Date Data Source [id number] 10/16/2019 04:22:48 PM EDT [facility] Name Value Range Interpretation Code Description Data Rema rce(s) Supporting Document(s) WBC 5.0 10*3/uL (4.1-11.0) [facility] [place] [facility] [place] RBC 4.22 10*6/uL (4.60-6.10) L [facility] HGB 9.7 g/dL (13.5-18.0) L [facility] HCT 29.5 % (41.0-53.0) L [facility] MCV 70.0 fL (80.0-95.0) L [facility] MCH 23.0 pg (27.0-32.0) L [facility] MCHC 32.8 g/dL (32.0-36.0) [facility] RDW 18.5 % (10.5-14.5) [facility] PLT 198 10*3/uL (150-450) [facility] MPV 8.6 fL (7.1-10.7) [facility] ID Date Data Source [id number] 10/16/2019 03:23:22 PM EDT [facility] INFORMATIONPatient MRN Name Date of Age Gend*PT [id number] Odin Jones 1935 84 years M ---PT Location Admission Date/Time Visit ID Attending Provider --- --- --- --- EPI ID CSN Admitting Provider [id number] ---Cardiothoracic Surgery Post Operative Follow UpName: Odin Jones : 1935MRN: [id number] Visit Date: October 16, 2019ASSESSMENT & PLAN:Pt's INR 5.25 todayD/w Dr. Blair, Dr. De La Garza & Dr. Chang to admit to for tele monitoring until PPM can be replaced with St. JudeDual Chamber PPMThe patient was educated on the following sternal precautions: no lifting,pushing, pulling > 5 lbs x 1 month from surgery. Then no lifting, pushing,pulling >10 lbs x 3 months from surgery.Follow up with Civil Structural Designer: Dr. Blair and PCP: PCP PROVIDER REQUESTEDReturn to office prnSUBJECTIVE:Odin Jones is a pleasant 84 years male who recently underwent coronaryartery bypass graft x3, cryoablation to left and the right atrium with clippingof the left atrial appendage on 09/20/[address] De La Garza. [facility] then read[facility] briefly with dyspnea. He was diuresed whichimproved this. Pt was discharged from [facility] and once home yesterday he received acall stating he should not leave [employer] today because his pacemaker lead ismalfunctioning. Pt is fatigued but otherwise feeling ok. 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 Myocardial infarction VF arrest PVC's (premature ventricular contractions) SSS (sick sinus syndrome) s/p PPM Wears partial denturesPast Surgical History:Procedure Laterality Date CARDIAC CATHETERIZATION N/A 08/23/2019 Procedure: CATHETERIZATION, HEART, LEFT; Surgeon: Lornezo Khan MD;Laterality: N/A; CARDIAC SURGERY N/A 09/20/2019 Procedure: MEDIAN STERNTOMY GIRALDO, RITIKA, CORONARY ARTERY BYPASS GRAFT X 3(CABG), WITH ENDOSCOPIC VESSEL PROCUREMENT SAPHENOUS VEIN RIGHT W/ [place], WITHCRYOABLATION AND LEFT ATRIAL APPENDAGE CLIP (50MM); Surgeon: Elizabeth De La Garza MD;Laterality: N/A; CATARACT EXTRACTIONS CORONARY STENT PLACEMENT HERNIA REPAIR INSERT / REPLACE / REMOVE PACEMAKER insertion TONSILLECTOMY TRANSURETHRAL RESECTION OF PROSTATEAllergies: Bee venom and Sulfa antibioticsOBJECTIVE:VITALS: blood pressure is 128/72 and his pulse is 56. His respiration is 16 andoxygen saturation is 95%.Physical ExamGeneral: AO x 3. In no apparent distress.Heart: +S1,S2. RegularLungs: Clear to auscultation bilaterally. Good respiratory effort. No use ofaccessory muscles. No wheezes, rales, rhonchiIncision: sternal incision healing well. C/D/I. Incision well approximatedwithout erythema or drainage. EVH site healing well.Extremities: Warm and well perfused. No edema.Neuro: Grossly intactSignature: Alejandrina Tiwari NPDate: October 16, 2019Time: 2:29 PM Name Value Range Interpretation Code Description Data Rema rce(s) Supporting Document(s) ID Date Data Source [id number] 10/16/2019 02:33:00 PM EDT [facility] Name Value Range Interpretation Code Description Data Rema rce(s) Supporting Document(s) SARS coronavirus 2 RNA [Presence] in Res piratory specimen by VIET with probe detection [facility] This lab was reported by [facility]. ID Date Data Source [id number] 10/16/2019 06:17:47 PM EDT [facility] Name Value Range Interpretation Code Description Data Rema rce(s) Supporting Document(s) SPECIMEN DESCRIPTION [facility]NDET[facility] THIS ASSAY AMPLIFIES AND DETECTSTHE TARG ET RNA USING REAL-TIME PCR.NEGATIVE 2019_NCOV RT-PCR RESULTS DONOT PRECLUDE 2019_NCOV INFECTION ANDSHOULD NOT BE USED THE SOLE BASISFOR PATIENT MANAGEMENT DECISIONS. COMMENT [facility] UNDER AN EMERGENCY USE AUTHORIZATION(EUA ) FOR THE DETECTION AND/OR DIAGNOSISOF THE VIRUS THAT CAUSES COVID-19.EMAILED RESULTS TO [facility] IC AT 5056 ON 606319. 13709 ID Date Data Source [id number] 10/16/2019 11:57:00 AM EDT [facility] CHEST ROUTINE PA and LATCLINICAL HISTORY: Pleural effusion.COMPARISON: September 28, 2019TECHNIQUE: Frontal and lateral radiographs were obtained. Two views.FINDINGS: The heart is enlarged. A single lead intracardiac defibrillator is present there is elevation of the left hemidiaphragm. A small left pleural effusion is noted. The right lung is clear. Lungs are hyperexpanded and hyperlucent suggesting COPD.IMPRESSION: Elevated left hemidiaphragm with small pleural effusion. No significant change from previous study. Interval resolution of right pleural effusion.Underlying emphysema. No evidence of edema.Dictated by: MAR WATTS M.D. on 10/16/2019 Transcribed by: parish on <<TranscriptionDateTime1>>CDS G code: ,CDS Modifier: ,cc: Name Value Range Interpretation Code Description Data Rema rce(s) Supporting Document(s) ID Date Data Source [id number] 10/16/2019 01:57:24 PM EDT [facility] [place] Name Value Range Interpretation Code Description Data Rema rce(s) Supporting Document(s) PT 49.7 s (9.2-11.9) H [facility] [place] INR 5.25 [facility] SUGGESTED THERAPEUTIC RANGES USING INR F ORSTABILIZED ANTICOAGULATED PATIENTS:STANDARD DOSE THERAPY INR 2.0-3.0 DVT, PE, PREVENT DVT OR EMBOLISMHIGH DOSE THERAPY INR 2.5-3.5 PREVENT EMBOLISM FROM MECHANICAL HEART VALVERESULT VERIFIED BY REPEAT TESTING.RESULT(S) CALLED TO AND READ BACK ANSHUL ON AT 7787 BY [address] ID Date Data Source [id number] 10/12/2019 06:49:07 PM EDT [facility]PAT[facility] NT INFORMATIONPatient MRN Name Date of Age Gend*PT [id number] Odin Jones 1935 84 years M IPPT Location Admission Date/Time Visit ID Attending [id number] 09/20/19 0954 --- --- EPI ID CSN Admitting Provider [id number] Elizabeth De La Garza MD([id number]) Attestation signed by Elizabeth De La Garza MD at 10/12/2019 6:49 PMI saw and evaluated the patient and reviewed Boo's note. I agree with thehistory, physical and medical decision makingSignature: HANNAH Montesate: October 12, 2019Time: 6:48 PM --Surgical Discharge SummaryWiniganlouis Muñoz coralrMProsperN: [id number] date: 09/20/2019Admitting Physician: HANNAH Montesischarge date and time:Discharge Orders Placed(From admission, onward) Start Ordered 09/28/19 0838 Discharge patient OnceExpected Discharge Date: 09/28/19Expected Discharge Time: MiddayDischarge Disposition: [facility] Facility 09/28/19 0901Discharge Physician: Sheba Stephen Diagnosis: Coronary artery disease of ruby artery of ruby heartwith stable angina pectorisSecon steven Diagnoses:Active Hospital Problems Diagnosis Date Noted Coronary artery disease of ruby artery of ruby heart with stable anginapectoris 08/24/2019 Added automatically from request for surgery [id number] Hospital ProblemsNo resolved problems to display.Discharge Medications:Your medication listSTART taking these medications Instructions Last Dose Given Morning Afternoon Evening Bedtime As Neededascorbic acid 500 MG tabletCommonly known as: VITAMIN C Take 1 tablet (500 mg total) by mouth dailyDocusate Sodium 100 MG CapsCommonly known as: (DSS) Take 1 capsule (100 mg total) by mouth 2 (two) times a dayferrous gluconate 324 MG tabletCommonly known as: FERGON Take 1 tablet (324 mg total) by mouth 2 (two) times a dayfolic acid 1 MG tabletCommonly known as: FOLVITE Take 1 tablet (1 mg total) by mouth dailyfurosemide 40 MG tabletCommonly known as: LASIX Take 1 tablet (40 mg total) by mouth 2 (two) times a dayipratropium-albuterol 0.5-2.5 mg/mL nebulizerCommonly known as: DUO-NEB Inhale 3 mL 3 (three) times a daymetoprolol tartrate 25 MG tabletCommonly known as: LOPRESSOR Take 0.5 tablets (12.5 mg total) by mouth 2 (two) times a daypotassium chloride SA 10 MEQ tabletCommonly known as: K-DUR,KLOR-CON Take 1 tablet (10 mEq total) by mouth 2 (two) times a day Take with Lasixwarfarin 2 MG tabletCommonly known as: COUMADIN Take 1 tablet (2 mg total) by mouth dailyCONTINUE taking these medications Instructions Last Dose Given Morning Afternoon Evening Bedtime As Neededaspirin 81 MG chewable tablet Chew 81 mg dailyatorvastatin 20 MG tabletCommonly known as: LIPITOR Take 20 mg by mouth dailyDAILY KARAN per tablet Take 1 tablet by mouth dailyDORZOLAMIDE HCL-TIMOLOL MAL OP Administer 1 drop to both eyes 2 (two) times a dayfluticasone 50 MCG/ACT nasal sprayCommonly known as: FLONASE 1 spray into each nostril dailytamsulosin 0.4 MG CapsCommonly known as: FLOMAX Take 0.4 mg by mouth dailySTOP taking these medicationsApixaban 5 MG Tabs tabletCommonly known as: ELIQUIScaptopril 25 MG tabletCommonly known as: CAPOTENmupirocin 2 % ointmentCommonly known as: BACTROBANnitroglycerin 0.4 MG SL tabletCommonly known as: NITROSTATWhere to Get Your MedicationsInformation about where to get these medications is not yet availableAsk your nurse or doctor about these medications ascorbic acid 500 MG tablet Docusate Sodium 100 MG Caps ferrous gluconate 324 MG tablet folic acid 1 MG tablet furosemide 40 MG tablet ipratropium-albuterol 0.5-2.5 mg/mL nebulizer metoprolol tartrate 25 MG tablet potassium chloride SA 10 MEQ tablet warfarin 2 MG tabletIndication for Admission: This is an 83-year-old male patient with history ofparoxysmal atrialfibrillation and pacemaker placement. Patient also has ischemiccardiomyopathy and coronary artery disease. He had a previous angioplasty,recently developed recurrent symptoms. Cardiac catheterization showssevere 3-vessel coronary artery disease. Patient therefore is referred forsurgical evaluation. We feel patient to be a candidate for coronary arterybypass surgery and cryoablation.Hospital Course & Complications:Patient was taken to the OR on 09/20/2019 for CABG/Cryo/MARTÍN, the patienttolerated this procedure well and was taken to the CVICU in stable condition.Patient was on a Levophed drip post operatively and this drip was weaned.Patient was in a sinus rhythm. Patient was extubated on operative n ight.Patient was transferred to the D4 step down unit in stable condition on POD4.The chest tubes were removed on POD2. He was diuresed with a Lasix GTT. Heremained in the ICU longer due to high O2 requirements. He had a rightthoracentesis on POD6 for 550cc. He had a left thoracentesis on POD7 for 450cc.Patient did well otherwise, oxygen weaned, ambulated, worked on incentivespirometry, had BMs, started on a BB, ASA, Coumadin, Statin. AUSTIN was not resumedas he developed an HOWIE and Cr remains elevated compared to baseline. BMP shouldbe checked at STR next week. INR to be drawn Tuesday at STR for Coumad in dosing.Would repeat PA/LAT CXR in 1 week prior to followup appt with surgeon incewaneeds repeat left thoracentesis.The patient is now safe for discharge on POD8, and care plan was discussed withcovering attending provider. The patient is eager to go to STR today.Lab ResultsComponent Value Date WBC 7.6 09/27/2019 HGB 7.7 (L) 09/27/2019 HCT 23.8 (L) 09/27/2019 PLT 165 09/27/2019 ALT 24 09/17/2019 AST 16 09/17/2019 NA 140 09/27/2019 K 4.2 09/27/2019 CL 100 09/27/2019 CREATININE 1.75 (H) 09/27/2019 BUN 57 (H) 09/27/2019 CO2 34 (H) 09/27/2019 INR 1.99 09/27/2019 HGBA1C 5.7 09/17/2019Past Medical History:Past Medical History:Diagnosis Date Abnormal EKG Atrial fibrillation Atrial flutter BPH (benign prostatic hyperplasia) Cancer bladder Cardiomyopathy ischemic Cholelithiasis Coronary artery disease Kalyn Blair MD Disorder of mitral and aortic valves Diverticulosis Glaucoma Hearing loss bilateral hearing aids Hypertension 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 NADBorder Gauze Removed. Wound Healing Well. No Drainage.AVPacing wires pulled on exam without difficulty.Heart RegularLungs CTAABD Soft NT +BSExt Warm No EdemaEVH Healing Well No Drainage No Erythema Some EcchymosisDischarged Condition:stableDisposition: Mcc FacilitySignature: Boo Morley PADate: September 28, 2019Time: 9:34 AM Name Value Range Interpretation Code Description Data Rema e(s) Supporting Document(s) ID Date Data Source [id number] 10/11/2019 09:36:00 AM EDT [facility] Name Value Range Interpretation Code Description Data Rema rce(s) Supporting Document(s) Prothrombin time (PT) 29.9 SECONDS 11.0 - 15.5 [facility] INR in Platelet poor plasma by Coagulation assay 2.80 0.93 - 1. 23 H [facility] \\BLDo\\INR INTERPRETATION\\BLDx\\ Therapeutic range for Coumadin and related oral anticoagulants. - International Normalized Ratio (INR): 2.0 - 3.0 for Venous Thrombosis, Pulmonary Embolus, Tissue heart valves, Acute MN, Atrial Fibrillation, Valvular heart disease and recurrent Systemic Embolism. -International Normalized Ratio (INR): 2.5 - 3.5 for Mechanical Prosthetic valve. ID Date Data Source [id number] 10/09/2019 08:44:00 AM [facility] Name Value Range Interpretation Code Description Data Rema [facility](s) Supporting Document(s) Prothrombin time (PT) 30.5 SECONDS 11.0 - 15.5 [facility] INR in Platelet poor plasma by Coagulation assay 2.87 0.93 - 1. 23 H [facility] \\BLDo\\INR INTERPRETATION\\BLDx\\ Therapeutic range for Coumadin and related oral anticoagulants. - International Normalized Ratio (INR): 2.0 - 3.0 for Venous Thrombosis, Pulmonary Embolus, Tissue heart valves, Acute MN, Atrial Fibrillation, Valvular heart disease and recurrent Systemic Embolism. -International Normalized Ratio (INR): 2.5 - 3.5 for Mechanical Prosthetic valve. ID Date Data Source [id number] 10/08/2019 11:29:00 AM [facility] Name Value Range Interpretation Code Description Data Rema [facility](s) Supporting Document(s) Prothrombin time (PT) 31.0 SECONDS 11.0 - 15.5 [facility] INR in Platelet poor plasma by Coagulation assay 2.93 0.93 - 1. 23 H [facility] \\BLDo\\INR INTERPRETATION\\BLDx\\ Therapeutic range for Coumadin and related oral anticoagulants. - International Normalized Ratio (INR): 2.0 - 3.0 for Venous Thrombosis, Pulmonary Embolus, Tissue heart valves, Acute MN, Atrial Fibrillation, Valvular heart disease and recurrent Systemic Embolism. -International Normalized Ratio (INR): 2.5 - 3.5 for Mechanical Prosthetic valve. ID Date Data Source [id number] 10/05/2019 02:45:00 PM [facility] Name Value Range Interpretation Code Description Data Rema [facility](s) Supporting Document(s) Prothrombin time (PT) 20.3 SECONDS 11.0 - 15.5 [facility] INR in Platelet poor plasma by Coagulation assay 1.71 0.93 - 1. 23 H [facility] \\BLDo\\INR INTERPRETATION\\BLDx\\ Therapeutic range for Coumadin and related oral anticoagulants. - International Normalized Ratio (INR): 2.0 - 3.0 for Venous Thrombosis, Pulmonary Embolus, Tissue heart valves, Acute MN, Atrial Fibrillation, Valvular heart disease and recurrent Systemic Embolism. -International Normalized Ratio (INR): 2.5 - 3.5 for Mechanical Prosthetic valve. ID Date Data Source [id number] 10/04/2019 08:27:00 AM T [facility] Name Value Range Interpretation Code Description Data Rema rce(s) Supporting Document(s) Prothrombin time (PT) 19.6 SECONDS 11.0 - 15.5 [facility] INR in Platelet poor plasma by Coagulation assay 1.64 0.93 - 1. 23 H [facility] \\BLDo\\INR INTERPRETATION\\BLDx\\ Therapeutic range for Coumadin and related oral anticoagulants. - International Normalized Ratio (INR): 2.0 - 3.0 for Venous Thrombosis, Pulmonary Embolus, Tissue heart valves, Acute MN, Atrial Fibrillation, Valvular heart disease and recurrent Systemic Embolism. -International Normalized Ratio (INR): 2.5 - 3.5 for Mechanical Prosthetic valve. ID Date Data Source [id number] 10/04/2019 10:41:00 AM T [facility] Name Value Range Interpretation Code Description Data Rema rce(s) Supporting Document(s) COMPREHENSIVE METABOLIC PANEL [facility] COMPREHENSIVE METABOLIC PANEL Sodium [Moles/volume] in Serum or Plasma 141 mEq/L 134 - 153 [facility] Potassium [Moles/volume] in Serum or Plasma 4.6 mEq/L 3.6 - 5.0 [facility] Chloride [Moles/volume] in Serum or Plasma 98 mEq/L 98 - 107 [facility] Carbon dioxide, total [Moles/volume] in Serum or Plasma 32 MEQ/L 22 - 30 H [facility] Glucose [Mass/volume] in Serum or Plasma 129 MG/DL 65 - 110 H [facility] BUN 46 MG[facility]DL [facility] Creat[facility] [Mass/volume] in Serum or Plasma 1.9 MG/DL 0.7 - 1.5 H [facility] BUN/CREAT 24 8 - 27 [facility] Protein [Mass/volume] in Serum or Plasma 6.4 G/DL 6.3 - 8.2 [facility] Albumin [Mass/volume] in Serum or Plasma 3.8 G/DL 3.9 - 5.0 L [facility] Globulin [Mass/volume] in Serum by calculation 2.6 GM/DL 2.4 - 3.2 [facility] A/G RATIO 1.5 0.8 - 2.0 [facility] Calcium [Mass/volume] in Serum or Plasma 9.4 MG/DL 8.4 - 10.2 [facility] Bilirubin.total [Mass/volume] in Serum or Plasma 1.1 MG/DL 0.2 - 1.3 [facility] Alkaline phosphatase [Enzymatic activity/volume] in Serum or Plasma 83 U/L 38 - 126 [facility] Aspartate aminotransferase [Enzymatic activity/volume] in Serum or Plasma 32 U/L 5 - 40 [facility] Alanine aminotransferase [Enzymatic activity/volume] in Seru m or Plasma 40 U/L 7 - 56 [facility] Anion gap 3 in Serum or Plasma 11.0 mmol/L 8.0 - 16.0 [facility] AGE 83 yrs [employer] al NON-AA GFR 36 mL/min [facility] AMER GFR 44 mL/min [facility] Male GFR In terprentation 20-49 yrs >60 mL/min Normal 50-59 yrs >56 mL/min Normal 60-69 yrs >49 mL/min Normal 70-79yrs >42 mL/min Normal 80 and above >35 mL/min Normal Female GFR Interpretation 20-39 yrs >60 mL/min Normal 40-49 yrs >58 mL/min Normal 50-59 yrs >51 mL/min Normal 60-69 yrs >45 mL/min Normal 70-79 yrs >39 mL/min Normal 80 and above >32 mL/min Normal ID Date Data Source [id number] 10/03/2019 03:26:00 PM EDT [facility] Name Value Range Interpretation Code Description Data Rema rce(s) Supporting Document(s) Ferritin [Mass/volume] in Serum or Plasma 660.6 ng/mL 5.0 - 244 H [facility] ID Date Data Source [id number] 10/03/2019 03:24:00 PM EDT [facility] Name Value Range Interpretation Code Description Data Rema rce(s) Supporting Document(s) Thyrotropin [Units/volume] in Serum or Plasma by Detec tion limit <= 0.05 mIU/L 1.20 uIU/mL 0.47 - 5.01 [facility] ID Date Data Source [id number] 10/03/2019 03:24:00 PM EDT [facility] Name Value Range Interpretation Code Description Data Rema rce(s) Supporting Document(s) Thyroxine (T4) free index in Serum or Plasma by calculation 1.04 NG/DL 0.93 - 1.70 [facility] ID Date Data Source [id number] 10/03/2019 03:14:00 PM EDT [facility] Name Value Range Interpretation Code Description Data Rema rce(s) Supporting Document(s) Prothrombin time (PT) 17.7 SECONDS 11.0 - 15.5 [facility] INR in Platelet poor plasma by Coagulation assay 1.44 0.93 - 1. 23 H [facility] \\BLDo\\INR INTERPRETATION\\BLDx\\ Therapeutic range for Coumadin and related oral anticoagulants. - International Normalized Ratio (INR): 2.0 - 3.0 for Venous Thrombosis, Pulmonary Embolus, Tissue heart valves, Acute MN, Atrial Fibrillation, Valvular heart disease and recurrent Systemic Embolism. -International Normalized Ratio (INR): 2.5 - 3.5 for Mechanical Prosthetic valve. ID Date Data Source [id number] 10/03/2019 03:14:00 PM EDT [facility] Name Value Range Interpretation Code Description Data Rema rce(s) Supporting Document(s) [facility]EL [facility] LIPID PANEL Cholesterol [Mass/volume] in Serum or Plasma 82 MG/DL 131 - 200 L [facility] Deprecated Triglyceride [Mass/volume] in Serum or Plasma 49 MG/DL 3 5 - 160 [facility] HDL 47 MG/DL 29 - 86 [facility] Cholesterol in LDL [Mass/volume] in Serum or Plasma by Direc t assay 29 mg/dL 65 - 175 L [facility] Cholesterol.total/Cholesterol in HDL [Mass Ratio] in Serum o r Plasma 1.7 3.4 - 4.9 L [facility] LDL/HDL 0.62 1.00 - 3.55 L [facility] CVE RISK CHOL/HDL LDL/HDLMEN: 1/2 AVERAGE 3.43 1.00 AVERAGE 4.97 3.55 2X AVERAGE 9.55 6.25 3X AVERAGE 23.99 7.99WOMEN: 1/2 AVERAGE 3.27 1.47 AVERAGE 4.44 3.22 2X AVERAGE 7.05 5.03 3X AVERAGE 11.04 6.14 ID Date Data Source [id number] 10/03/2019 03:14:00 PM EDT [facility] Name Value Range Interpretation Code Description Data Rema rce(s) Supporting Document(s) Iron [Mass/volume] in Serum or Plasma 32 UG/DL 42 - 135 L [facility] Iron binding capacity.unsaturated [Mass/volume] in Serum or Plasma 170 UG/DL 112 - 347 [facility] Iron binding capacity [Mass/volume] in Serum or Plasma 202 ug/dL 250 - 450 L [facility] Iron saturation [Mass Fraction] in Serum or Plasma 16 % [facility] ID Date Data Source [id number] 10/03/2019 03:13:00 PM T [facility] Name Value Range Interpretation Code Description Data Rema rce(s) Supporting Document(s) Magnesium [Mass/volume] in Serum or Plasma 2.0 MG/DL 1.7 - 2.2 [facility] ID Date Data Source [id number] 10/03/2019 03:06:00 PM T [facility] Name Value Range Interpretation Code Description Data Rema rce(s) Supporting Document(s) CBC NO DIFF [facility] ital COMPLETE BLOOD COUNT Leukocytes [#/volume] in Blood by Automated count 7.7 10^3/uL 4.2 - 1 1.0 [facility] Erythrocytes [#/volume] in Blood by Automated count 3.69 10^6/uL 4. 50 - 6.30 L [facility] Hemoglobin [Mass/volume] in Blood 8.4 g/dL 14.0 - 16.0 L [facility] Hematocrit [Volume Fraction] of Blood by Automated count 26.4 % 4 1.0 - 51.0 L [facility] Erythrocyte mean corpuscular volume [Entitic volume] by Auto mated count 71.5 fL 80.0 - 94.0 L [facility] Erythrocyte mean corpuscular hemoglobin [Entitic mass] by Automated count 22.8 pg 27.0 - 34.0 L [facility] Erythrocyte mean corpuscular hemoglobin concentration [Mass/volume] by Automated count 31.8 g/dL 31.0 - 36.0 [facility] Erythrocyte distribution width [Ratio] by Automated count 18.6 % 11.5 - 14.8 H [facility] Platelets [#/volume] in Blood by Automated count 319 10^3/uL 150 - 45 0 [facility] Platelet mean volume [Entitic volume] in Blood by Automated count 10.0 fL 7.4 - 10.4 [facility] ID Date Data Source [id number] 10/02/2019 02:03:43 PM EDT [facility] [place] NT INFORMATIONPatient MRN Name Date of Age Gend*PT [id number] Odin Jones 1935 83 years M IPPT Location Admission Date/Time Visit ID Attending [id number] 09/28/192113 --- Dennys Silvestre MD([id number]) EPI ID CSN Admitting Provider [id number] Dennys Silvestre MD([id number])Surgical Discharge SummaryOdin PlascenciaRdN: [id number] date: 09/28/2019Admitting Physician: HANNAH Keeischarge date and time:Discharge Orders Placed(From admission, onward) NoneDischarge Physician: MAXI Blackmondmnikki Diagnosis: Shortness of breathSecondary Diagnoses: Principal Problem: Shortness of breathIndication for Admission: This patient was discharged on 09/28/19 after CABG,cryoablation and MARTÍN clip on 08/2319. He was discharged to [facility] and returned tot ED later that evening with complaints regarding the rehab facility andshortness of breath.Hospital Course & Complications: The patient was readmitted and placed on oxygennasal cannula and IV lasix. CXR showed improving pulmonary edema. Thepatient's dyspnea improved and he was weaned off oxygen. He continues coumadinfor Afib and will continue 3 mg daily with INR on 10/04/19. Results to facilityprovider for further dosing. The patient was seen by the attending MD anddeemed appropriate for discharge to [facility].Follow up:Dr. Silvestre in 2 weeksPCP in 2-3 weeksCardiology in 2-3 weeksPast Medical History:Past Medical Histor y:Diagnosis Date Abnormal EKG Atrial fibrillation Atrial flutter BPH (benign prostatic hyperplasia) Cancer bladder Cardiomyopathy ischemic Cholelithiasis Coronary artery disease Kalyn Blair MD Disorder of mitral and aortic valves Diverticulosis Glaucoma Hearing loss bilateral hearing aids Hypertension jail current use of anticoagulant Eliquis Myocardial infarction VF arrest PVC's (premature ventricular contractions) SSS (sick sinus syndrome) s/p PPM Wears partial denturesSurgical Procedures:* No surgery found *Significant Diagnostic Studies:Lab ResultsComponent Value Date INR 1.43 10/02/2019 INR 1.53 10/01/2019 INR 1.44 09/30/2019 PROTIME 14.7 (H) 10/02/2019 PROTIME 15.7 (H) 10/01/2019 PROTIME 14.8 (H) 09/30/2019Lab ResultsComponent Value Date WBC 5.8 10/02/2019 HGB 8.7 (L) 10/02/2019 HCT 26.4 (L) 10/02/2019 PLT 258 10/02/2019 ALT 24 09/17/2019 AST 16 09/17/2019 NA 142 10/01/2019 K 3.9 10/01/2019 CL 101 10/01/2019 CREATININE 1.81 (H) 10/01/2019 BUN 47 (H) 10/01/2019 CO2 34 (H) 10/01/2019 INR 1.43 10/02/2019 HGBA1C 5.7 09/17/2019Treatments:See AVS for medication list.Discharge Exam:Blood Pressure: BP: 109/55 Pulse: Heart Rate: 66Temperature: Temp: 97.3 F Respirations: Resp: 20Admission Weight: Weight: (!) 101.6 kg (224 lb) O2 Saturation: SpO2: 92 %Today's Weight: Weight: 97 kg (213 lb 12.8 oz)Pleasant, comfortable, not in acute distress.Awake, alert, oriented times 3.Moves all extremities.Lungs: Clear to auscultation bilaterally.Heart: regular rate and rh ythmAbdomen: Soft, nontender, bowel sounds present.Extremities: No edema.Wound/Incision: clean, dry and no drainageDischarged Condition:stableDisposition: Home or Self CareSignature: Corinna Blackmon: October 02, 2019Time: 7:07 AM Name Value Range Interpretation Code Description Data Rema rce(s) Supporting Document(s) ID Date Data Source [id number] 10/02/2019 03:24:26 AM EDT [facility] Name Value Range Interpretation Code Description Data Rema rce(s) Supporting Document(s) PT 14.7 s (9.2-11.9) H [facility] INR 1.43 [facility] SUGGESTED THERAPEUTIC RANGES USING INR F ORSTABILIZED ANTICOAGULATED PATIENTS:STANDARD DOSE THERAPY INR 2.0-3.0 DVT, PE, PREVENT DVT OR EMBOLISMHIGH DOSE THERAPY INR 2.5-3.5 PREVENT EMBOLISM FROM MECHANICAL HEART VALVE ID Date Data Source [id number] 10/02/2019 03:17:56 AM EDT [facility] Name Value Range Interpretation Code Description Data Rema rce(s) Supporting Document(s) WBC 5.8 10*3/uL (4.1-11.0) [facility] RBC 3.72 10*6/uL (4.60-6.10) L [facility] HGB 8.7 g/dL (13.5-18.0) L [facility] HCT 26.4 % (41.0-53.0) L [facility] MCV 71.0 fL (80.0-95.0) L [facility] MCH 23.2 pg (27.0-32.0) L [facility] MCHC 32.8 g/dL (32.0-36.0) [facility] RDW 18.1 % (10.5-14.5) H [facility] PLT 258 10*3/uL (150-450) [facility] MPV 7.9 fL (7.1-10.7) [facility] ID Date Data Source [id number] 10/02/2019 12:10:00 AM EDT [facility] Name Value Range Interpretation Code Description Data Rema rce(s) Supporting Document(s) SARS coronavirus 2 RNA [Presence] in Res piratory specimen by VIET with probe detection [facility] This lab was reported by [facility]. ID Date Data Source [id number] 10/02/2019 06:31:03 AM EDT [facility] Name Value Range Interpretation Code Description Data Rema rce(s) Supporting Document(s) SPECIMEN DESCRIPTION [facility] COVID19 RESULT (NDET) [facility] THIS ASSAY AMPLIFIES AND DETECTSTHE TARG ET RNA USING REAL-TIME PCR.NEGATIVE 2019_NCOV RT-PCR RESULTS DONOT PRECLUDE 2019_NCOV INFECTION ANDSHOULD NOT BE USED THE SOLE BASISFOR PATIENT MANAGEMENT DECISIONS. COMMENT [facility] [place] APPROVED B Y THE TXSDOH. THE U.[place]. FOODAND DRUG ADMINISTRATION HAS NOT APPROVEDTHIS TEST. NEGATIVE RESULTS DO NOT [id number] INFECTION AND SHOULD NOT BEUSED THE SOLE BASIS FOR CLINICALDIAGNOSIS OR PATIENT MANAGEMENT DECISIONS.EMAILED TO [facility] AT 1800 ON [phone] ID Date Data Source [id number] 10/01/2019 03:12:24 AM EDT [facility] Name Value Range Interpretation Code Description Data Rema rce(s) Supporting Document(s) SODIUM 142 mmol/L (136-145) [facility] POTASSIUM 3.9 mmol/L (3.6-5.2) [facility] CHLORIDE 101 mmol/L (100-108) [facility] CO2 34 mmol/L (22-31) H [facility] ANION GAP 7 mmol/L (7-16) [facility] UREA NITROGEN 47 mg/dL (7-24) H [facility] CREATININE 1.81 mg/dL (0.80-1.30) H [facility] BUN/CREAT RATIO 26.0 RATIO (10.0-20.0) H [facility] GLUCOSE 132 mg/dL (70-99) H [facility] CALCIUM 8.1 mg/dL (8.4-10.2) L [facility] GFR 36 ml/min/1.73m2 (>59) L [facility] GFR ( AMER) 44 ml/min/1.73m2 (>59) L [facility] GFR INTERPRETATION [facility] --NORMAL KIDNEY FUNCTION OR MILD DISEASE - GFR >OR= 60CHRONIC KIDNEY DISEASE - GFR 15 - 59RENAL FAILURE - GFR <15 Est. GFR calculation based on the MDRDstudy equation, which assumes a steadystate for creatinine. Est. GFR should notbe used for medication dosing. ID Date Data Source [id number] 10/01/2019 03:04:47 AM EDT [facility] Name Value Range Interpretation Code Description Data Rema rce(s) Supporting Document(s) PT 15.7 s (9.2-11.9) H [facility] INR 1.53 [facility] SUGGESTED THERAPEUTIC RANGES USING INR F ORSTABILIZED ANTICOAGULATED PATIENTS:STANDARD DOSE THERAPY INR 2.0-3.0 DVT, PE, PREVENT DVT OR EMBOLISMHIGH DOSE THERAPY INR 2.5-3.5 PREVENT EMBOLISM FROM MECHANICAL HEART VALVE ID Date Data Source [id number] 10/01/2019 02:51:31 AM EDT [facility] Name Value Range Interpretation Code Description Data Rema rce(s) Supporting Document(s) WBC 6.3 10*3/uL (4.1-11.0) [facility] [place] RBC 3.75 10*6/uL (4.60-6.10) L [facility] HGB 8.4 g/dL (13.5-18.0) L [facility] HCT 25.9 % (41.0-53.0) L [facility] PERFORMED AT [address] [place] [address] N [place] [address] MCV 69.2 fL (80.0-95.0) L [facility] MCH 22.5 pg (27.0-32.0) L [facility] MCHC 32.5 g/dL (32.0-36.0) [facility] RDW 17.7 % (10.5-14.5) H [facility] PLT 263 10*3/uL (150-450) [facility] MPV 8.0 fL (7.1-10.7) [facility] ID Date Data Source [id number] 09/30/2019 10:46:48 AM EDT [facility] [place] INFORMATIONPatient MRN Name Date of Age Gend*PT [id number] Odin Jones 1935 83 years M OBSPT Location Admission Date/Time Visit ID Attending ProviderD-[id number] 09/28/192113 --- Dennys Silvestre MD([id number]) EPI ID CSN Admitting Provider [id number] Dennys Silvestre MD([id number])See H&P from previous admit and PA admit note Name Value Range Interpretation Code Description Data Rema rce(s) Supporting Document(s) ID Date Data Source [id number] 10/01/2019 12:20:55 AM EDT [facility] SPEC EXP DATE 10/03/2019PATI ENT ABO/Rh O POSITIVEANTIBODY SCREEN NEGATIVETESTING SITE PERFORMED AT [address] [place] [address] [place] [address]XXLKU BANK COMMENT BLOOD TYPE CONFIRMED.UNIT NUMBER [id number] COMPONENT TYPE LEUKOPOOR RED CELLSUNIT DIVISION 00STATUS OF UNIT TRANSFUSEDTRANSFUSION STATUS OK TO TRANSFUSECROSSMATCH RESULT COMPATIBLE Name Value Range Interpretation Code Description Data Rema rce(s) Supporting Document(s) TYPE AND SCREEN [facility] ID Date Data Source [id number] 09/30/2019 07:33:17 AM EDT [facility] Name Value Range Interpretation Code Description Data Rema rce(s) Supporting Document(s) WBC 5.4 10*3/uL (4.1-11.0) [facility] [place] RBC 3.51 10*6/uL (4.60-6.10) L [facility] HGB 7.8 g/dL (13.5-18.0) L [facility] HCT 24.0 % (41.0-53.0) L [facility] PERFORMED AT [address] [place] [address] [place] [address] MCV 68.2 fL (80.0-95.0) L [facility] MCH 22.1 pg (27.0-32.0) L [facility] MCHC 32.4 g/dL (32.0-36.0) [facility] RDW 16.1 % (10.5-14.5) H [facility] PLT 243 10*3/uL (150-450) [facility] MPV 8.2 fL (7.1-10.7) [facility] ID Date Data Source [id number] 09/30/2019 03:27:03 AM EDT [facility] Name Value Range Interpretation Code Description Data Rema rce(s) Supporting Document(s) SODIUM 143 mmol/L (136-145) [facility] POTASSIUM 3.9 mmol/L (3.6-5.2) [facility] CHLORIDE 102 mmol/L (100-108) [facility] CO2 37 mmol/L (22-31) H [facility] ANION GAP 4 mmol/L (7-16) L [facility] UREA NITROGEN 55 mg/dL (7-24) H [facility] CREATININE 1.75 mg/dL (0.80-1.30) H [facility] BUN/CREAT RATIO 31.4 RATIO (10.0-20.0) H [facility] GLUCOSE 115 mg/dL (70-99) H [facility] CALCIUM 8.6 mg/dL (8.4-10.2) [facility] GFR 38 ml/min/1.73m2 (>59) L [facility] GFR ( AMER) 45 ml/min/1.73m2 (>59) L [facility] GFR INTERPRETATION [facility] --NORMAL KIDNEY FUNCTION OR MILD DISEASE - GFR >OR= 60CHRONIC KIDNEY DISEASE - GFR 15 - 59RENAL FAILURE - GFR <15 Est. GFR calculation based on the MDRDstudy equation, which assumes a steadystate for creatinine. Est. GFR should notbe used for medication dosing. ID Date Data Source [id number] 09/30/2019 03:13:47 AM EDT [facility] Name Value Range Interpretation Code Description Data Rema rce(s) Supporting Document(s) PT 14.8 s (9.2-11.9) H [facility] INR 1.44 [facility] SUGGESTED THERAPEUTIC RANGES USING INR F ORSTABILIZED ANTICOAGULATED PATIENTS:STANDARD DOSE THERAPY INR 2.0-3.0 DVT, PE, PREVENT DVT OR EMBOLISMHIGH DOSE THERAPY INR 2.5-3.5 PREVENT EMBOLISM FROM MECHANICAL HEART VALVE ID Date Data Source [id number] 09/30/2019 03:03:17 AM EDT [facility] Name Value Range Interpretation Code Description Data Ream rce(s) Supporting Document(s) WBC 5.2 10*3/uL (4.1-11.0) [facility] [place] RBC 3.42 10*6/uL (4.60-6.10) L [facility] HGB 7.6 g/dL (13.5-18.0) L [facility] HCT 23.7 % (41.0-53.0) L [facility] PERFORMED AT [address] [place] [address] [place] [address] MCV 69.4 fL (80.0-95.0) L [facility] MCH 22.2 pg (27.0-32.0) L [facility] MCHC 32.0 g/dL (32.0-36.0) [facility] RDW 15.9 % (10.5-14.5) H [facility] PLT 235 10*3/uL (150-450) [facility] MPV 8.1 fL (7.1-10.7) [facility] ID Date Data Source [id number] 09/29/2019 10:42:29 AM EDT [facility] Name Value Range Interpretation Code Description Data Rema rce(s) Supporting Document(s) PT 15.7 s (9.2-11.9) H [facility] INR 1.53 [facility] SUGGESTED THERAPEUTIC RANGES USING INR F ORSTABILIZED ANTICOAGULATED PATIENTS:STANDARD DOSE THERAPY INR 2.0-3.0 DVT, PE, PREVENT DVT OR EMBOLISMHIGH DOSE THERAPY INR 2.5-3.5 PREVENT EMBOLISM FROM MECHANICAL HEART VALVE ID Date Data Source [id number] 09/29/2019 07:43:58 AM EDT [address] [address]W[place]nli Name: ODIN TIANOB: 1935Sex: MOrdering Provider: SHAUN De Jesus Prov: SHAUN Scales Provider: Procedure Performed: XR CHEST PA AND LATERALExam Date: 09/29/2019 00:00MRN: [id number] Number: [id number] Class: OutpatientAccount #: [id number] [id number] Exam: shortness of breathTechnique: PA and lateral views obtained.Comparison: September 28, 2019Findings: The lungs are better aerated on the current study than on the previous exam. Interstitial prominence noted previously has resolved.There is persistent elevation of left hemidiaphragm with left lower lobe atelectasis. Small bilateral pleural effusions are present.IMPRESSION: Improved pulmonary edema. Elevated left hemidiaphragm with minimal left basilar atelectasis slightly improved. Small bilateral pleural effusions.Report electronically signed by: MAR WATTS On 09/29/2019 7:43 AMWorkstation ID: [id number] Name Value Range Interpretation Code Description Data Rema rce(s) Supporting Document(s) ID Date Data Source [id number] 09/29/2019 07:39:36 AM EDT [address] [address] Name: ODIN TIANOB: 1935Sex: MOrdering Provider: LILIA Alonzo Prov: LILIA Cardoso Provider: Procedure Performed: XR CHEST PORTABLEExam Date: 09/28/2019 22:17MRN: [id number] Number: [id number] Class: OutpatientAccount #: [id number] Exam: DyspneaTechnique: AP portable view obtained.Comparison: September 28, 2019Findings: There is elevation of left hemidiaphragm. A small left pleural effusion and basilar airspace disease is present on the left. The appearance is stable when compared to the prior exam.There has been some interval development of interstitial disease suggesting superimposed edema which is increased from prior exam.IMPRESSION: Elevated left hemidiaphragm with left lower lobe atelectasis versus pneumonia and small left pleural effusion. Interval development of mild interstitial pulmonary edema.Report electronically signed by: MAR WATTS On 09/29/2019 7:39 AM Workstation ID: [id number] Name Value Range Interpretation Code Description Data Rema rce(s) Supporting Document(s) ID Date Data Source [id number] 09/29/2019 05:47:33 AM EDT [facility] NT INFORMATIONPatient MRN Name Date of Age Gend*PT [id number] Odin Jones 1935 83 years M OBSPT Location Admission Date/Time Visit ID Attending [id number] 09/28/192113 --- Dennys Silvestre MD([id number]) EPI ID CSN Admitting Provider [id number] Dennys Silvestre MD([id number])Provider in Triage NotesNo notes on fileHistory of Present IllnessChief ComplaintPatient presents with Shortness of Breath pt had CABG and was discharged from hospital today and sent to [facility]. ems state that patient's daughters called 911 because patient wascomplaining of shortness of breath and chest pain, per pt, "It can't stand itthere. I do more work than they do. They hid things on me and I can't find them.After dinner I had trouble breathing so my daughters called 911& quot;Odin Jones is a 83 years old male with a PMHx of Atrial fibrillation,Atrial flutter, BPH, Cancer, Cardiomyopathy, Coronary artery disease, Disorderof mitral and aortic valves, Hypertension, anticoagulant use, Myocardialinfarction, and PVC's, who presents to the ED with c/o of SOB. [facility] 09[facility]28[facility] (today) for "Coronaryartery disease of ruby artery of ruby heart with stable angina pectoris" andunderwent a CABG. Patient was discharged to [facility] rehab. Patient reports hisdaughter's called 911 after patient was c/o that "I do not want to be there. Enrike more work than they do" about being at [facility] rehab and that he hadincreased SOB after dinner. He reports his SOB has worsened since beingdischarged today. 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 used: NoHistoryPast Medical History:Diagnosis Date Abnormal EKG Atrial fibrillation Atrial flutter BPH (benign prostatic hyperplasia) Cancer bladder Cardiomyopathy ischemic Cholelithiasis Coronary artery disease Kalyn Blair MD Disorder of mitral and aortic valves Diverticulosis Glaucoma Hearing loss bilateral hearing aids Hypertension jail current use of anticoagulant Eliquis Myocardial infarction VF arrest PVC's (premature ventricular contractions) SSS (sick sinus syndrome) s/p PPM Wears partial denturesPast Surgical History:Procedure Laterality Date CARDIAC CATHETERIZATION N/A 08/23/2019 Procedure: CATHETERIZATION, HEART, LEFT; Surgeon: Lorenzo Khan MD;Laterality: N/A; CARDIAC SURGERY N/A 09/20/2019 Procedure: MEDIAN STERNTOMY GIRALDO, RITIKA, CORONARY ARTERY BYPASS GRAFT X 3(CABG), WITH ENDOSCOPIC VESSEL PROCUREMENT SAPHENOUS VEIN RIGHT W/ [place], WITHCRYOABLATION AND LEFT ATRIAL APPENDAGE CLIP (50MM); Surgeon: Elizabeth De La Garza MD;Laterality: N/A; CATARACT EXTRACTIONS CORONARY STENT PLACEMENT HERNIA REPAIR INSERT / REPLACE / REMOVE PACEMAKER insertion TONSILLECTOMY TRANSURETHRAL RESECTION OF PROSTATEHistory reviewed. No pertinent family history.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Tobacco Use Smoking status: Former Smoker Smokeless tobacco: Never UsedSubstance Use Topics Alcohol use: Yes Comment: rare Drug use: NeverROSReview of SystemsConstitutional: Negative for activity change, appetite change, chills,diaphoresis, fatigue and fever.HENT: Negative for congestion, dental problem, drooling, ear discharge, earpain, facial swelling, hearing loss, sore throat, trouble swallowing and voicechange.Eyes: Negative for photophobia, pain, discharge, redness and itching.Respiratory: Positive for shortness of breath. Negative for apnea, cough, chesttightness and wheezing.Cardiovascular: Negative for chest pain, palpitations and leg swelling.Gastrointestinal: Negative for abdominal distention, abdominal pain, blood instool, diarrhea, nausea and vomiting.Endocrine: Negative for polyuria.Genitourinary: Negative for dysuria, flank pain, hematuria and urgency.Musculoskeletal: Negative for arthralgias, back pain, neck pain and neckstiffness.Skin: Negative for color change, pallor, rash and wound.Neurological: Negative for dizziness, seizures, syncope, speech difficulty,weakness, light-headedness and headaches.Hematological: Negative for adenopathy. Does not bruise/bleed easily.Psychiatric/Behavioral: Negative for behavioral problems, confusion,hallucinations, self-injury and suicidal ideas.All other systems reviewed and are negative.Physical ExamBP 117/57 | Pulse 70 | Temp 98 F (Oral) | Resp 22 | Ht 72.99" | Wt (!)101.6 kg | SpO2 98% | BMI 29.56 kg/m Physical ExamConstitutional: He is oriented to person, place, and time. He appearswell-developed.HENT:Head: Normocephalic and atraumatic.Eyes: Pupils are equal, round, and reactive to light. Conjunctivae and EOM arenormal. Right eye exhibits no discharge. Left eye exhibits no discharge.Neck: Normal range of motion. Neck supple. No tracheal deviation present.Cardiovascular: Normal rate, regular rhythm, normal heart sounds and intactdistal pulses. Exam reveals no gallop and no friction rub.No murmur heard.Pulmonary/Chest: Effort normal and breath sounds normal. No stridor. Norespiratory distress. He has no wheezes. He has no rales.Sternotomy scar with steri-strips.Abdominal: Soft. Bowel sounds are normal. He exhibits no distension and no mass.There is no tenderness. There is no rebound and no guarding. No hernia.Laparoscopic scars intact and well healing.Musculoskeletal: Normal range of motion. He exhibits no tenderness or deformity.Neurological: He is alert and oriented to person, place, and time. No sensorydeficit. He exhibits normal muscle tone.Skin: Skin is warm and dry. Capillary refill takes less than 2 seconds. No rashnoted. No erythema. No pallor.Psychiatric: He has a normal mood and affect. His behavior is normal. Judgmentand thought content normal.Nursing note and vitals reviewed.ED CourseProceduresLab ResultsResults for orders placed or performed during the hospital encounter of 09/28/19CB w/ diffResult Value Ref Range WBC 7.7 4.1 - 11.0 10*3/uL RBC 3.96 (L) 4.60 - 6.10 10*6/uL Hemoglobin 8.7 (L) 13.5 - 18.0 g/dL Hematocrit 27.8 (L) 41.0 - 53.0 % MCV 70.2 (L) 80.0 - 95.0 fL MCH 22.0 (L) 27.0 - 32.0 pg MCHC 31.3 (L) 32.0 - 36.0 g/dL RDW 16.2 (H) 10.5 - 14.5 % Platelets 238 150 - 450 10*3/uL MPV 8.2 7.1 - 10.7 fL Neutrophils % 75.7 (H) 35.0 - 75.0 % Lymphocytes Relative 7.7 (L) 16.0 - 52.0 % Monocytes Relative 11.5 (H) 0.0 - 8.0 % Eosinophils Relative 4.7 0.0 - 5.0 % Basophils Relative 0.4 0.0 - 4.0 % Neutrophils Absolute 5.8 1.8 - 7.7 10*3/uL Lymphocytes Absolute 0.6 (L) 1.2 - 4.8 10*3/uL Monocytes Absolute 0.9 (H) 0.0 - 0.8 10*3/uL Eosinophils Man 0.4 0.0 - 0.5 10*3/uL Basophils Absolute 0.0 0.0 - 0.2 10*3/uLBMPResult Value Ref Range Sodium 142 136 - 145 mmol/L Potassium 4.1 3.6 - 5.2 mmol/L Chloride 102 100 - 108 mmol/L CO2 34 (H) 22 - 31 mmol/L Anion Gap 6 (L) 7 - 16 mmol/L Urea nitrogen 61 (H) 7 - 24 mg/dL Creatinine 1.95 (H) 0.80 - 1.30 mg/dL BUN/Creatinine Ratio 31.3 (H) 10.0 - 20.0 RATIO GLUCOSE 167 (H) 70 - 99 mg/dL Calcium 8.6 8.4 - 10.2 mg/dL GFR MDRD Non Af Amer 33 (L) >59 ml/min/1.73m2 GFR MDRD Af Amer 40 (L) >59 ml/min/1.73m2 Glom Filt Rate, Est SEE NOTESImaging ResultsX-ray Chest Two ViewsResult Date: 09/28/2019IMPRESSION: Slightly improved pulmonary edema compared to 09/26/2019, but themoderate left pleural fusion and small right pleural effusion are grosslystable. Report electronically signed by: JENNA EVA On 09/28/2019 9:31 AMWorkstation ID: [id number] Diagnoses or Management OptionsDyspnea:Amount and/or Complexity of Data ReviewedClinical lab tests: reviewed and orderedTests in the radiology section of CPT : reviewed and orderedTests in the medicine section of CPT : ordered and reviewedDecide to obtain previous medical records or to obtain history from someoneother than the patient: yesObtain history from someone other than the patient: yesReview and summarize past medical records: yesDiscuss the patient with other providers: yesIndependent visualization of images, tracings, or specimens: yesProgress Notes:9:59 PM Pt seen and examined. CXR orders placed.10:18 PM Spoke with patient's daughter Kyara who states it looks like he has hadincreased difficulty breathing and he was gasping for air tonight.11:[address] Silvestre from Cardiac Surgery who will admit the pt.DISPOSITION - The patient has been hospitalized to the Cardiology service forfurther evaluation and management.DIAGNOSIS1. DyspneaED AttestationAttestation of Scribe Documentation: I personally performed the servicesdescribed in the documentation, reviewed the documentation recorded by thescribe in my presence and it accurately and completely records my words andactions.Lilia Mcgregor MD 5:47 AMThis was electronically signed by Ivania Turpin acting as scribe for and in thepresence of Dr. Lilia Mcgregor, 09/28/19 11:19 PM.Lilia Mcgregor MD09/29/19 0547 Name Value Range Interpretation Code Description Data Rema rce(s) Supporting Document(s) ID Date Data Source [id number] 09/29/2019 02:06:39 AM EDT [facility] Name Value Range Interpretation Code Description Data Rema rce(s) Supporting Document(s) SODIUM 142 mmol/L (136-145) [facility] POTASSIUM 4.1 mmol/L (3.6-5.2) [facility] CHLORIDE 100 mmol/L (100-108) [facility] CO2 39 mmol/L (22-31) H [facility] ANION GAP 3 mmol/L (7-16) L [facility] UREA NITROGEN 61 mg/dL (7-24) H [facility] CREATININE 1.97 mg/dL (0.80-1.30) H [facility] BUN/CREAT RATIO 31.0 RATIO (10.0-20.0) H [facility] GLUCOSE 129 mg/dL (70-99) H [facility] CALCIUM 9.2 mg/dL (8.4-10.2) [facility] GFR 33 ml/min/1.73m2 (>59) L [facility] GFR ( AMER) 40 ml/min/1.73m2 (>59) L [facility] GFR INTERPRETATION [facility] --NORMAL KIDNEY FUNCTION OR MILD DISEASE - GFR >OR= 60CHRONIC KIDNEY DISEASE - GFR 15 - 59RENAL FAILURE - GFR <15 Est. GFR calculation based on the MDRDstudy equation, which assumes a steadystate for creatinine. Est. GFR should notbe used for medication dosing. ID Date Data Source [id number] 09/29/2019 01:54:54 AM EDT [facility] Name Value Range Interpretation Code Description Data Rema rce(s) Supporting Document(s) WBC 7.0 10*3/uL (4.1-11.0) [facility] [place] [facility] [place] RBC 4.05 10*6/uL (4.60-6.10) L [facility] HGB 8.9 g/dL (13.5-18.0) L [facility] HCT 28.3 % (41.0-53.0) L [facility] [place] [address] [address] MCV 69.9 fL (80.0-95.0) L [facility] MCH 22.0 pg (27.0-32.0) L [facility] MCHC 31.4 g/dL (32.0-36.0) L [facility] RDW 15.9 % (10.5-14.5) H [facility] PLT 250 10*3/uL (150-450) [facility] MPV 8.4 fL (7.1-10.7) [facility] ID Date Data Source [id number] 09/28/2019 11:54:31 PM EDT [facility] Name Value Range Interpretation Code Description Data Rema rce(s) Supporting Document(s) NT PRO BNP 3609 pg/mL (0-450) H [facility] ID Date Data Source [id number] 09/28/2019 11:10:40 PM EDT [facility] Name Value Range Interpretation Code Description Data Rema rce(s) Supporting Document(s) SODIUM 142 mmol/L (136-145) [facility] POTASSIUM 4.1 mmol/L (3.6-5.2) [facility] CHLORIDE 102 mmol/L (100-108) [facility] CO2 34 mmol/L (22-31) H [facility] ANION GAP 6 mmol/L (7-16) L [facility] UREA NITROGEN 61 mg/dL (7-24) H [facility] CREATININE 1.95 mg/dL (0.80-1.30) H [facility] BUN/CREAT RATIO 31.3 RATIO (10.0-20.0) H [facility] GLUCOSE 167 mg/dL (70-99) H [facility] CALCIUM 8.6 mg/dL (8.4-10.2) [facility] GFR 33 ml/min/1.73m2 (>59) L [facility] GFR ( AMER) 40 ml/min/1.73m2 (>59) L [facility] GFR INTERPRETATION [facility] --NORMAL KIDNEY FUNCTION OR MILD DISEASE - GFR >OR= 60CHRONIC KIDNEY DISEASE - GFR 15 - 59RENAL FAILURE - GFR <15 Est. GFR calculation based on the MDRDstudy equation, which assumes a steadystate for creatinine. Est. GFR should notbe used for medication dosing. ID Date Data Source [id number] 09/28/2019 11:00:42 PM EDT [facility] Name Value Range Interpretation Code Description Data Rema rce(s) Supporting Document(s) WBC 7.7 10*3/uL (4.1-11.0) [facility] [place] [facility] [place] RBC 3.96 10*6/uL (4.60-6.10) L [facility] HGB 8.7 g/dL (13.5-18.0) L [facility] HCT 27.8 % (41.0-53.0) L [facility] MCV 70.2 fL (80.0-95.0) L [facility] MCH 22.0 pg (27.0-32.0) L [facility] MCHC 31.3 g/dL (32.0-36.0) L [facility] RDW 16.2 % (10.5-14.5) H [facility] PLT 238 10*3/uL (150-450) [facility] MPV 8.2 fL (7.1-10.7) [facility] NEUT % 75.7 % (35.0-75.0) H [facility] LYMPH % 7.7 % (16.0-52.0) L [facility] MONO % 11.5 % (0.0-8.0) H [facility] EOS % 4.7 % (0.0-5.0) [facility] BASO % 0.4 % (0.0-4.0) [facility] NEUT # 5.8 10*3/uL (1.8-7.7) [facility] LYMPH # 0.6 10*3/uL (1.2-4.8) L [facility] MONO # 0.9 10*3/uL (0.0-0.8) H [facility] Eosinophils [#/volume] in Blood by Automated count 0.4 10*3/uL (0.0-0 .5) [facility] BASO # 0.0 10*3/uL (0.0-0.2) [facility] ID Date Data Source [id number] 09/28/2019 09:31:21 AM EDT [address] [address] Name: ODIN ADAIRCORALRDOB: 1935Sex: MOrdering Provider: PIETRO Cruz Prov: PIETRO Bar Provider: Procedure Performed: XR CHEST PA AND LATERALExam Date: 09/28/2019 09:21MRN: [id number] Number: [id number] Class: InpatientAccount #: [id number] Exam: effusionsTechnique: PA and lateral views obtained.Comparison: 09/26/2019.Findings: There is a moderate left pleural effusion and small right pleural effusion, grossly stable compared to 09/26/2019. Pulmonary edema appears slightly improved. There is no pneumothorax. The enlarged cardiac silhouette is stable.IMPRESSION: Slightly improved pulmonary edema compared to 09/26/2019, but the moderate left pleural fusion and small right pleural effusion are grossly stable.Report electronically signed by: JENNA VELASQUEZ On 09/28/2019 9:31 AMWorkstation ID: [id number] Name Value Range Interpretation Code Description Data Rema rce(s) Supporting Document(s) ID Date Data Source [id number] 09/28/2019 11:39:35 AM EDT [facility] Name Value Range Interpretation Code Description Data Rema rce(s) Supporting Document(s) PT 17.7 s (9.2-11.9) H [facility] INR 1.74 [facility] SUGGESTED THERAPEUTIC RANGES USING INR F ORSTABILIZED ANTICOAGULATED PATIENTS:STANDARD DOSE THERAPY INR 2.0-3.0 DVT, PE, PREVENT DVT OR EMBOLISMHIGH DOSE THERAPY INR 2.5-3.5 PREVENT EMBOLISM FROM MECHANICAL HEART VALVE ID Date Data Source [id number] 09/28/2019 11:33:17 AM EDT [facility] Name Value Range Interpretation Code Description Data Rema rce(s) Supporting Document(s) WBC 7.4 10*3/uL (4.1-11.0) [facility] [place] RBC 3.75 10*6/uL (4.60-6.10) L [facility] HGB 8.4 g/dL (13.5-18.0) L [facility] HCT 25.7 % (41.0-53.0) L [facility] MCV 68.6 fL (80.0-95.0) L [facility] MCH 22.3 pg (27.0-32.0) L [facility] MCHC 32.6 g/dL (32.0-36.0) [facility] RDW 15.9 % (10.5-14.5) H [facility] PLT 221 10*3/uL (150-450) [facility] MPV 8.6 fL (7.1-10.7) [facility] ID Date Data Source [id number] 09/28/2019 11:53:46 AM EDT [facility] Name Value Range Interpretation Code Description Data Rema rce(s) Supporting Document(s) SODIUM 142 mmol/L (136-145) [facility] POTASSIUM 4.0 mmol/L (3.6-5.2) [facility] CHLORIDE 99 mmol/L (100-108) L [facility] CO2 38 mmol/L (22-31) H [facility] ANION GAP 5 mmol/L (7-16) L [facility] UREA NITROGEN 59 mg/dL (7-24) H [facility] CREATININE 1.89 mg/dL (0.80-1.30) H [facility] BUN/CREAT RATIO 31.2 RATIO (10.0-20.0) H [facility] GLUCOSE 112 mg/dL (70-99) H [facility] CALCIUM 8.8 mg/dL (8.4-10.2) [facility] GFR 34 ml/min/1.73m2 (>59) L [facility] GFR ( AMER) 42 ml/min/1.73m2 (>59) L [facility] GFR INTERPRETATION [facility] --NORMAL KIDNEY FUNCTION OR MILD DISEASE - GFR >OR= 60CHRONIC KIDNEY DISEASE - GFR 15 - 59RENAL FAILURE - GFR <15 Est. GFR calculation based on the MDRDstudy equation, which assumes a steadystate for creatinine. Est. GFR should notbe used for medication dosing. ID Date Data Source [id number] 09/27/2019 06:12:[address] [facility] NT INFORMATIONPatient MRN Name Date of Age Gend*PT [id number] Odin Jones 1935 83 years M IPPT Location Admission Date/Time Visit ID Attending [id number] 09/20/19 0954 --- Elizabeth De La Garza MD([id number]) EPI ID CSN Admitting Provider [id number] Elizabeth De La Garza MD([id number]) Attestation signed by Beck Martins DO at 09/27/2019 6:12 PMProcedure performed under my supervision, I agree with above report.Beck Martins DO 09/27/2019 6:12 PMDepartment of Interventional Radiology Brief Operative/Invasive Procedure NoteOdin TianATE OF : 1935MRN # [id number] DATE: 09/27/2019PROVIDER:GARRET Novak 09/27/2019 9:48 AMPROCEDURE:US guided left thoracentesis - Approx 450 cc of serosanguineous fluiddrainedPRE-PROCEDURE DIAGNOSIS:Left pleural effusionPOST PROCEDURE DIAGNOSIS:Left pleural effusionANESTHESIA TYPE:local - 1% lidocaine (5cc)SPECIMENS:NoneESTIMATED BLOOD LOSS: MinimalGRAFTS OR IMPLANTS:NoneFINDINGS: Consistent with operative diagnosisCOMPLICATIONS: NoneScott Channels, PADepartment of Interventional Radiology Name Value Range Interpretation Code Description Data Rema rce(s) Supporting Document(s) ID Date Data Source [id number] 09/27/2019 11:50:27 AM EDT [address] [id number] Name: ODIN TIANOB: 1935Sex: MOrdering Provider: PIETRO Cruz Prov: PIETRO Bar Provider: Procedure Performed: IR THORACENTESIS LOCALIZATION LEFTExam Date: 09/27/2019 09:48MRN: [id number] Number: [id number] Class: InpatientAccount #: [id number] for Exam: Left pleural effusionThis is an 83-year-old male with a left pleural effusion. Thoracentesis has been requested. Informed consent was obtained. Potential complications include but are not limited to: Bleeding, infection, injury to adjacent blood vessels or organs, medication reaction and pneumothorax. Ultrasound was used to scan the patient's left lung field posteriorly and to verify that there was pleural fluid in the left chest. A safe site for performing the procedure was chosen. The overlying skin was marked, prepped and draped in usual sterile fashion. Sterile barrier technique was utilized throughout the procedure. Local anesthesia was obtained with 1% lidocaine. Under ultrasound guidance with image documentation, a 5-[place] catheter was inserted into the left pleural space. There was return of fluid through the catheter. The catheter was connected to wall suction and approximately 450 cc of fluid was drained. The catheter was removed at the end of the procedure. There were no immediate complications were noted. The patient tolerated the procedure well. The procedure was performed by Harjinder Sutton PA-C under the direct supervision of Dr. Martins.Impression: Ultrasound-guided left thoracentesis as described above.Report electronically approved by: HARJINDER SUTTON On 09/27/2019 10:49 AMThe procedure described above was performed under my supervision and I agree with this reportReport electronically signed by: BECK MARTINS On 09/27/2019 11:50 AMWorkstation ID: [id number] Name Value Range Interpretation Code Description Data Rema rce(s) Supporting Document(s) ID Date Data Source [id number] 09/27/2019 02:21:00 AM EDT [facility] Name Value Range Interpretation Code Description Data Rema rce(s) Supporting Document(s) SARS coronavirus 2 RNA [Presence] in Res piratory specimen by VIET with probe detection Lab [facility] This lab was reported by Lab [facility]. ID Date Data Source [id number] 09/27/2019 06:25:03 AM EDT [facility] Name Value Range Interpretation Code Description Data Rema rce(s) Supporting Document(s) SPECIMEN DESCRIPTION Lab [facility] COVID19 RESULT (NDET) Lab [facility] THIS ASSAY AMPLIFIES AND DETECTSTHE TARG ET RNA USING REAL-TIME PCR.NEGATIVE 2019_NCOV RT-PCR RESULTS DONOT PRECLUDE 2019_NCOV INFECTION ANDSHOULD NOT BE USED THE SOLE BASISFOR PATIENT MANAGEMENT DECISIONS. COMMENT [facility] LABORATORY [facility] APPROVED B Y THE [facility]. THE [place] FOODAND DRUG ADMINISTRATION HAS NOT APPROVEDTHIS TEST. NEGATIVE RESULTS DO NOT [id number] INFECTION AND SHOULD NOT BEUSED THE SOLE BASIS FOR CLINICALDIAGNOSIS OR PATIENT MANAGEMENT DECISIONS.EMAILED [facility] ON [id number] AT [address] [id number] ID Date Data Source [id number] 09/27/2019 04:19:08 AM EDT [facility] Name Value Range Interpretation Code Description Data Rema rce(s) Supporting Document(s) MAGNESIUM 2.7 mg/dL (1.7-2.4) H [facility] ID Date Data Source [id number] 09/27/2019 04:19:08 AM EDT [facility] Name Value Range Interpretation Code Description Data Rema rce(s) Supporting Document(s) SODIUM 140 mmol/L (136-145) [facility] POTASSIUM 4.2 mmol/L (3.6-5.2) [facility] CHLORIDE 100 mmol/L (100-108) [facility] CO2 34 mmol/L (22-31) H [facility] ANION GAP 6 mmol/L (7-16) L [facility] UREA NITROGEN 57 mg/dL (7-24) H [facility] CREATININE 1.75 mg/dL (0.80-1.30) H [facility] BUN/CREAT RATIO 32.6 RATIO (10.0-20.0) H [facility] GLUCOSE 113 mg/dL (70-99) H [facility] CALCIUM 8.5 mg/dL (8.4-10.2) [facility] GFR 38 ml/min/1.73m2 (>59) L [facility] GFR ( AMER) 45 ml/min/1.73m2 (>59) L [facility] GFR INTERPRETATION [facility] --NORMAL KIDNEY FUNCTION OR MILD DISEASE - GFR >OR= 60CHRONIC KIDNEY DISEASE - GFR 15 - 59RENAL FAILURE - GFR <15 Est. GFR calculation based on the MDRDstudy equation, which assumes a steadystate for creatinine. Est. GFR should notbe used for medication dosing. ID Date Data Source [id number] 09/27/2019 04:06:23 AM EDT [facility] Name Value Range Interpretation Code Description Data Rema rce(s) Supporting Document(s) PT 20.1 s (9.2-11.9) H [facility] INR 1.99 [facility] SUGGESTED THERAPEUTIC RANGES USING INR F ORSTABILIZED ANTICOAGULATED PATIENTS:STANDARD DOSE THERAPY INR 2.0-3.0 DVT, PE, PREVENT DVT OR EMBOLISMHIGH DOSE THERAPY INR 2.5-3.5 PREVENT EMBOLISM FROM MECHANICAL HEART VALVE ID Date Data Source [id number] 09/27/2019 04:01:28 AM EDT [facility] Name Value Range Interpretation Code Description Data Rema rce(s) Supporting Document(s) WBC 7.6 10*3/uL (4.1-11.0) [facility] RBC 3.42 10*6/uL (4.60-6.10) L [facility] HGB 7.7 g/dL (13.5-18.0) L [facility] HCT 23.8 % (41.0-53.0) L [facility] MCV 69.5 fL (80.0-95.0) L [facility] MCH 22.4 pg (27.0-32.0) L [facility] MCHC 32.2 g/dL (32.0-36.0) [facility] RDW 15.4 % (10.5-14.5) H [facility] PLT 165 10*3/uL (150-450) [facility] MPV 8.8 fL (7.1-10.7) [facility] ID Date Data Source [id number] 09/26/2019 02:43:26 PM EDT [facility] PhoenixPATIE NT INFORMATIONPatient MRN Name Date of Age Gend*PT [id number] Odin Jones 1935 83 years M IPPT Location Admission Date/Time Visit ID Attending [id number] 09/20/19 0954 --- Elizabeth De La Garza MD([id number]) EPI ID CSN Admitting Provider [id number] Elizabeth De La Garza MD([id number]) Attestation signed by Beck Martins DO at 09/26/2019 2:43 PMProcedure performed under my supervision, I agree with above report.Beck Martins DO 09/26/2019 2:43 PMDepartment of Interventional Radiology Brief Operative/Invasive Procedure NoteOdin TianATE OF : 1935MRN # [id number] DATE: 09/26/2019PROVIDER:GARRET Novak 09/26/2019 8:32 AMPROCEDURE:US guided right thoracentesis - Approx 550 cc of serosanguineous fluiddrainedPRE-PROCEDURE DIAGNOSIS:Right pleural effusionPOST PROCEDURE DIAGNOSIS:Right pleural effusionANESTHESIA TYPE:local - 1% lidocaine (5cc)DRAINS:NoneSPECIMENS:NoneESTIMATED BLOOD LOSS: MinimalGRAFTS OR IMPLANTS:NoneFINDINGS: Consistent with operative diagnosisCOMPLICATIONS: NoneScott Channels, PADepartment of Interventional Radiology Name Value Range Interpretation Code Description Data Rema rce(s) Supporting Document(s) ID Date Data Source [id number] 09/26/2019 11:09:45 AM EDT [address] [id number] Name: ODIN Toni TIANOB: 1935Sex: MOrdering Provider: SHAUN HAIDERAuthorizing Prov: SHAUN HAIDERReferrsharonda Provider: Procedure Performed: XR CHEST PA AND LATERALExam Date: 09/26/2019 10:58MRN: [id number] Number: [id number] Class: InpatientAccount #: [id number] for Exam: follow up on pleura effusions, status post thoracentesiTechnique: AP and lateral views obtained.Comparison: September 25, 2019Findings: There is a large left pleural effusion and a small right effusion. Bilateral lower lobe consolidation consistent with atelectasis versus pneumonia is noted which is stable.The remainder the exam is unchanged.IMPRESSION: No change from prior study.Report electronically signed by: MAR WATTS On 09/26/2019 11:09 AMWorkstation ID: [id number] - [id number] Name Value Range Interpretation Code Description Data Rema rce(s) Supporting Document(s) ID Date Data Source [id number] 09/26/2019 10:54:46 AM EDT [address] [id number] Name: ODIN PLASCENCIARDOB: 1935Sex: MOrdering Provider: EVAN Hess Prov: EVAN Harper Provider: Procedure Performed: IR THORACENTESIS LOCALIZATION RIGHTExam Date: 09/26/2019 08:34MRN: [id number] Number: [id number] Class: InpatientAccount #: [id number] for Exam: Right pleural effusionThis is an 83-year-old male with a right pleural effusion. A right thoracentesis has been requested. Informed consent was obtained. Potential complications include but are not limited to: Bleeding, infection, injury to adjacent blood vessels or organs, medication reaction and pneumothorax. Ultrasound was used to verify that there was fluid in the right chest and to scan the patient's right lung field posteriorly. A safe site for performing the procedure was chosen. The overlying skin was marked, prepped and draped in usual sterile fashion. Sterile barrier technique was utilized throughout the procedure. Local anesthesia was obtained with 1% lidocaine. Under ultrasound guidance with image documentation, a 5-[place] catheter was inserted into the right pleural space. There was return of serosanguineous fluid through the catheter. The catheter was connected to wall suction and approximately 550 cc of fluid was drained. The catheter was removed at the end of the procedure. There were no immediate complications were noted. The patient tolerated the procedure well. The procedure was performed by Harjinder Sutton PA-C under the direct supervision of Dr. Martins.Impression: Ultrasound -guided right thoracentesis as described above.Report electronically approved by: HARJINDER SUTTON On 09/26/2019 8:45 AMThe procedure described above was performed under my supervision and I agree with this reportReport electronically signed by: BECK MARTINS On 09/26/2019 10:54 AMWorkstation ID: [id number] - [id number] Name Value Range Interpretation Code Description Data Rema rce(s) Supporting Document(s) ID Date Data Source [id number] 09/26/2019 07:46:53 AM EDT [facility] Name Value Range Interpretation Code Description Data Rema rce(s) Supporting Document(s) MAGNESIUM 2.4 mg/dL (1.7-2.4) [facility] ID Date Data Source [id number] 09/26/2019 07:46:53 AM EDT [facility] Name Value Range Interpretation Code Description Data Rema rce(s) Supporting Document(s) POTASSIUM 3.7 mmol/L (3.6-5.2) [facility] ID Date Data Source [id number] 09/26/2019 03:42:34 AM EDT [facility] Name Value Range Interpretation Code Description Data Rema rce(s) Supporting Document(s) MAGNESIUM 2.4 mg/dL (1.7-2.4) [facility] ID Date Data Source [id number] 09/26/2019 03:42:34 AM EDT [facility] Name Value Range Interpretation Code Description Data Rema rce(s) Supporting Document(s) SODIUM 141 mmol/L (136-145) [facility] POTASSIUM 3.8 mmol/L (3.6-5.2) [facility] CHLORIDE 101 mmol/L (100-108) [facility] CO2 35 mmol/L (22-31) H [facility] ANION GAP 5 mmol/L (7-16) L [facility] UREA NITROGEN 61 mg/dL (7-24) H [facility] CREATININE 1.99 mg/dL (0.80-1.30) H [facility] BUN/CREAT RATIO 30.7 RATIO (10.0-20.0) H [facility] GLUCOSE 114 mg/dL (70-99) H [facility] CALCIUM 8.6 mg/dL (8.4-10.2) [facility] GFR 32 ml/min/1.73m2 (>59) L [facility] GFR ( AMER) 39 ml/min/1.73m2 (>59) L [facility] GFR INTERPRETATION [facility] --NORMAL KIDNEY FUNCTION OR MILD DISEASE - GFR >OR= 60CHRONIC KIDNEY DISEASE - GFR 15 - 59RENAL FAILURE - GFR <15 Est. GFR calculation based on the MDRDstudy equation, which assumes a steadystate for creatinine. Est. GFR should notbe used for medication dosing. ID Date Data Source [id number] 09/26/2019 03:24:21 AM EDT [facility] Name Value Range Interpretation Code Description Data Rema rce(s) Supporting Document(s) PT 20.3 s (9.2-11.9) H [facility] INR 2.01 [facility] SUGGESTED THERAPEUTIC RANGES USING INR F ORSTABILIZED ANTICOAGULATED PATIENTS:STANDARD DOSE THERAPY INR 2.0-3.0 DVT, PE, PREVENT DVT OR EMBOLISMHIGH DOSE THERAPY INR 2.5-3.5 PREVENT EMBOLISM FROM MECHANICAL HEART VALVE ID Date Data Source [id number] 09/26/2019 03:17:14 AM EDT [facility] Name Value Range Interpretation Code Description Data Rema rce(s) Supporting Document(s) WBC 6.0 10*3/uL (4.1-11.0) [facility] RBC 3.34 10*6/uL (4.60-6.10) L [facility] HGB 7.5 g/dL (13.5-18.0) L [facility] HCT 23.2 % (41.0-53.0) L [facility] MCV 69.5 fL (80.0-95.0) L [facility] MCH 22.6 pg (27.0-32.0) L [facility] MCHC 32.5 g/dL (32.0-36.0) [facility] RDW 15.8 % (10.5-14.5) H [facility] PLT 143 10*3/uL (150-450) L [facility] MPV 8.6 fL (7.1-10.7) [facility] ID Date Data Source [id number] 09/25/2019 08:44:56 PM EDT [facility] Name Value Range Interpretation Code Description Data Rema rce(s) Supporting Document(s) MAGNESIUM 2.4 mg/dL (1.7-2.4) [facility] ID Date Data Source [id number] 09/25/2019 08:44:56 PM EDT [facility] Name Value Range Interpretation Code Description Data Rema rce(s) Supporting Document(s) POTASSIUM 3.6 mmol/L (3.6-5.2) [facility] ID Date Data Source [id number] 09/25/2019 12:45:05 PM EDT [facility] Name Value Range Interpretation Code Description Data Rema rce(s) Supporting Document(s) POTASSIUM 3.9 mmol/L (3.6-5.2) [facility] ID Date Data Source [id number] 09/25/2019 12:45:05 PM EDT [facility] Name Value Range Interpretation Code Description Data Rema rce(s) Supporting Document(s) MAGNESIUM 2.3 mg/dL (1.7-2.4) [facility] ID Date Data Source [id number] 09/25/2019 08:59:53 AM EDT [facility] Name Value Range Interpretation Code Description Data Rema rce(s) Supporting Document(s) EKG [facility] LUXYIm7jBoIZRnPrv2TfUyCpWHZmWC8ufsx6F0B0mKRnW5XjiNEqy6lmO5XrH7JdKOVvNIXKNO2YjIOp jb2 [file] 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 cRnY6rchCoU3N/jggg56Yrua43X8jk0Blxcvz/rrp90naAgL/CL3mm2zBK5o/Kusi1uVB/RR1LMT4lw2 UGqmm1kAHrCrp8X6lzH6mItpnT+hXxVFGwZM2vo1Z1Zk6yVRoRKZ0BBslm7zjeYD3scosL5Szx4gwcJ/ xZmKOHa+FwHhxg6+fD4ucYnFZJDeqssMG2L2b7eZ/L Vcg8yApKP8j/lsvBPEh/AJ27xOszw+KOAbEXHyk42ZA/eI6FK7yk7/cf//pf//4n3rKs/fcV/Pf//ed/ /J/2P//59//753//+18R/6drnX/+61/ztAUyWVG3gczhP8TD/yX1TDm61R40/qc+Lv7usIJ+/eLPiHD/ xZ+voBA1Vzn/35EM/8V3vUn/6Y1/GBgL3KC6+8VPxa 8P4V+8Key/eFN6/8Uvxf/6270p/Iv3eCX/0xYr/IvfkeanK/6Fl8J/8eNT/K+/Yqy4gerkn++I//X3pz T9wr/+/tSkCP/ak3MSY7KL//r5G55bjBiF3Uvwbzthb6qiLF59o4/dAprpsUFhH0Ga6ekKr1zfwV2Vw6 hjn08F9lipD/gntxOyGjG+R/ZktkaR0k3ZZyqPY/kP s1BTMn9htgPCF4I8lnY8A3dT67jotE0V38eBubnf8vcmtt1Rc5ockN+aw7PV/J/9e3N+9lovP+3vT0nK 8C8+3a7/+tsk25/qF0em/wwfyf/VvQwUEpG2KEkY7kzuLX3HE+p409Z35lzxeF0ayS2W+lX4p+/9nQib wn/xn+y0G5s40B3b+9mt2mcbL34ma6/eiXJmlK/wr7 8v/IvX+L79kMaz0kQw2K6aM+BynE4Nkkr1tz0iONq7B/r7U+xe+t2gvJVo07I/F/q7or+ZxlCvVTvXQv wq+S+v9i9H/Ea9G+IcuPnp9pe82+ivtyrHG+P27raj22SeW371Fl6LsE3SFe19fsIMSqJ46sG6FiHdVE /H+I4u0ggA/hau9uA5zh/C6O/fVb0lTX7Uf/HdGN9t H8LV/y0HqeNa44uu1h+jj2ovkdWn1Fziur6fv0r7wh/SH/T3oL+kNy2lr0s739J/SfC2MR1TjAX8FS1h At6VEkv4o+R/KH7nHU09D/n3qSrI0O90sV/zeZwOZ72cAcM6nT8cd9er0iGA8WsRV1Ho/t9N3khj9d+h bEQpmshmg2raalXSSsFwg+L6yY65s7rC/Vdh5dRlGH j4Q552J6+6eaO/22EgN22fyqZ5Dz+33Xq1It1F/ixTfyTaCya5U/xG+o1+HdQb/Y98JQo4axv2Og67M8 SuCOF52P/v8RBy8D1gWCLc4SG0DpOm2RyxqfIC0W4sd/76O8+6i6ELMgb658iKluhfIU/Zo1R2wzy3ns qfoV/gZGa2Pgzb8Qs7Dkk3JthtrW6coqsNQUK+9cKI W4aDbio9ED1vM433tRAkxN+1K8Ennex+5K1vrqqSGQ/oV9n+0K9ufK/5s36ZEoyfE7cHzDZ13qv4ISuz 3Ih6aUiGT+i24Uxr63cWwB2L04Ziil9QA/NW+pXSSL/VlJt6qzpj+bLPd5GngzgyM/pVhifSR3/bBfIQ FciX2c0Gmpo4qryh/SrTbKTfiD/o16nyf/lIXOa9ec ADz9kxnaiwW6EF5YwvV+Lq5Os9EeSxlbe5eS3jiux/yrxecpN+lfHo70+/em04aA/9M4d3Tr1ISI09Lm sYjcq5AyIflEUccD1T+Dr2Z+lXmddQjqHeVetI+dGI98bprXvUMH99iW8Q2Gte4Rg3UHHDr6O6mD5clB 6bQ5MrqHraF8L6YDgpAro13O+/eg478UlcMQb25Upb BM4Qzy/cpzLPwC1nhIZpEtBw15n/Tu0P0q+0d4V+jeIEDXoEKQKuXKNkMJ4w/tak4n/9ndqLQr/6Lcpf +Cjl1ojYc/Frq/qei02yry+/K/P+xteG4n/sJ0YnMA4zO5JtY2sd/Hy2Rdw2AYnx7biyILzdScrgIIQI 0K/tTO58Z7lBlEh/bpCE3Itp/SrKGdKvMtwRX9+j8d I5vEnF0TI+6ou9J4xvj4tSTM1JuagcGZb/tts8mpcTb6EdRSnz57YrYuzbkakm1Hnimj+qOa86yrOcYd /qE6J6XncLCy7jYQbnhESlrNNFi3s6mspt9zKgGQD64OY+Gq3OR/F+6dUF3J9MP+oByKmh73M/euEqP/ RrG0h4cvSw4ec4KU3ujq6qY999Q+ha3yCL5BdlT+Id 1M43PnKK/eqGo7+jqf5dvnD4tDjTM5jvixkMR18wbVeuvpiRlQOnaO94K+4aMmnChLH0yLgKm9lWV/Sr I3t791PezyY8ypp7N93tJr3ixu4Q0gxUv5Ywll/CfsPwp59Qd8Tltm+K7ZuOO2HBq4fdxr5lsupwP0zc q0y/TZ3aqVX++uvKG/6EnTM20t5f/EprM/SrrrUZ+p O9gqq9kCjeAN785y3l1TldVwow0FNYbJTueSQK/GG11PPALiah2SJl8ROofVesnNjxAGiOWJcbTvGqBc 2oEsdusHsclH0dHWNcAJK3WBKY+pX2/2rz2EXCYubixYiKnQbPfjHRD9tTdrDCA59X3jnM1aaoutUa60 ug3EVS1lqHKE8afuhlYu2+U/Z32kXazZGXobsk5eqj b+cLovzlOFPErr6H5XF/kdLO5DBjwGg4o6Tk8Ir4ik5zoy7eoTrl0G9jpaZkuLI40TeUATa8FsvMkdEY u7237OeG47gfuy3d3Hzhe/SkaLYb55Qh/AgbC2d7mrD+N/ek6X1hxF/oM9HafJYaH2v0VUx+qUFvuj61 fhc+ElCxFeAl1aAcF0eqQq7na/GRnLeOSgNuLt1BgQ 6Dio/sbvWc9TpU/DxAj4V7+RjqNZRT+NU4C+to6QcW6/l3CL/E2EM18Ha4ght2pe30/p3Ar+BBlS79Lm +x4z3wJL9sS/E2srYjgR/msjo9tqz/yjYsxK+nh0/cE6CuTK8kL6YfZ2B64vpLo/QwLc8AfDI+leHCN6 e2tyzDpNYOo7D153T02ZFK+hIpwYxx1YlQQb+cwq92 gvvu3B0x0VuJDaa/0f6D+EO1Qn89mbm/beMvlgMiwi0p0cqOmR8k4tS+bxAzVtia77F/3VD+Dy5A1BQe m+LhT9b75uYfC6q/hV+zPtRuJG9Pn5XdoHR+Cr+8QsIMTlbZD8S1iRka/HcdBjakVP3I+dx9bsXNbhIj nE8Z1Jwqb1DvqlnTWeXjCte6PWTuLRhRySJC+NUUfq XyhV9l+cw6ie1v6YpV/BoBt3zmsf25cTDYnaVkPJoAV0ii37YKsfGP+8Azg2HuEK0X5a4ycsnZ+NUNI3 9mA7Uqfbv/Cj56ngHE7K9hC6+eVnjdNPTXDuJPxev/tTyCyjmQjy75HBb6k/GCn49e9JjhoEgA1oK+C/ 1d6O/C+C6Mr/GuL5C6M+uki8uUe1954+v/whR+leFW 5TvWr/UtoPFBaq2v1mNmf6aTpwS5Gi/NbHFO8C3d6MgZC+FXmWbX+yBA0mG4RebtAr+TE4CFT2+dwq9C W8h42T0n/CrDA/MK245eSitd73gd4chRXQsvvB73zg75evVSk9jmfRBvE4kc/UwiuKnG1X9V591O0Th8 8zxiT8us63rQ23H4s2Z+jyG+2Nz9cP0P6W7AsCN9Bp kHkKllEHzF1s0ahFUfger4q1Mx0VWvV4A06w4VjaDYGwq+Rx4hU2z7UUwJyoQ+uGrCyIVbnseK0Ycs8p /QqW3zDdt/PbTf9emVh2Mcr29oz4r/jesdbn4zYTf1BW9p3gdSB/t/h9Wi2HOxLbxe+7yQjl13c4psRp VslLNR/hE6z86e7Ovjw1xdhwolkcQekWU7bs13ys5d yhv1ygxlMlk86UCcgFv9zpUhhP/5txT+i/c4t8YN/b/zehC5pclv1w/jOzM+zr+qymQ668L+0yNl6wR0 9LqmH7IRX+FXn9KX/myjzkcG/cpG/V+Iaq4MR/9DfVK456YEVJ1f7PHU/0hfWrtClvcW8iDh/y0ZrgXt C/BhweV7jDQ0l1HkW0MtuhPXhYpwdhEb24ytH/BYlT wRw42Lzld6cZwfm5M/x7Dba8m/j2xi/p82Cegk24RWQr/DFA9DpH/SEX9A6tz7Bxp8b8Db/V8wq/sqZn Buzej0O2Y8g6TZ8pLdxgo2/mjN88uuowmXtd8d53jCxldUk50I2rRcS/xG+x32gm5b2t73m0hbU11ws2 QsbscrmqrDGu4b0bjt75wbj67/uwwzbahFUs7jQI8v /UJ6R/o6D9qq+4v8XrHg/Uahe6oWzf0MFzv/Mty/srx/uSZNvNz7O/NP6KzUO7CVVNss0Zm5YG0Y80od PCfuzb/8gkdu1scuIdHoFbVifPHiEpZD/ze6oIeBiBRdM7eftL9hddW+laDI1aQ8N+JPRPfKZ68yc5vf Cz1tF9gIE/KJy8Ul+xndPlvmO4tA25ar3uAt+NCvcm 8P/UqYoeH/RKiDg3lleBu+Mca4Gp/6cPeKw6qSdMR+hSfiJ+QPrwuTlikacm64LlUrju5AP/2RPoQ922 gN/+Lr/nPcha/wYq278kQmHaljw12fD88VHz8cQb6vKzpcA84pCp9sB2xzH2XNX/GFlkHK174J/4/r7z vX3eM49eKh+M0bhzM42awj++9umwLc75jroW4wBx6w b7r1pW77JnmkAUFE4cz/2sX98od+19fRabC0cXbh22R/d1rAdiQk3K9koqqdJrqLibF+tRQufGPh/tXC /xgLKo2unj1UB/zQ0gRJpw596+qlP69e+pJcjS1f3NhlfbgqZbdP5DWhV7Lv9uyEtwF5R+a1m5BvtBEk +uvt990geR8st8NdPj2m/79L+lWGG+Ib0pd+tUZHev X53GyeUn/K+VhuUIJZ6wb+zhJ+lWFHexzlo7+d3zArWcnIOhZlhXeygbWp/Lfa1WPw6ft7scjQyIgur7 wo54CvV+bxaxrwGEyhuF5ARRgnJLpyJA3I68O1kI97NS/90wR0S8nZ91bN0NZ/W9vkk2b0l9Su2idoM1 9x/8q2k3lPNnnwKegQ+bmKL+zJzI+DGZlyl86rZWBU U9X3n/Z+HAX8mOQTV2c6ZJgb8Ho4xkzX/6tl6K/sK42/ob+G/qvmJ5dCd+rwpYcmxc7BmLuJ+qFF08vh wmfg77StpR2S1kmc/K/WQn/T/bojtb4UquGS+bzw/d9UbqY2i9o+3qmk295eup9DH/+Q6QjHyojUg4KK aOtL7namUj6z2pZu+3D9/JGWL+YcUQyA60acGY2q25 169lvHrfg+URE9SYfbpuULlq08Ye9J1QRq2euiCeynI3GpmP1OU5zQ/vWc4RNtKXbo/cvpspll74t+Pl xXO3er/XfHQzzriCG38m2qi9ahPj/4ONusizD50zH/N/i4GvI96fZo3M+7Uu1h1z+/f/V8/fuQXs/Xv2 L02VIrdO4D0049zl3BN8mwoX3ug234k4X+2zvnt1Ln oWtH+mgmTG2K+twehPQ5I/096wX/Tn+FecGj2Qvl2sb/8sj/0d0ExZaB+1PXSB/IP+q+baL+01+1QfhV oggZ45gqiGmgA8/4gwu/yvRA/o72u4Evg2dsE930d/n5Xaj3U/6O/TC4A6YC9r9Wu3QbL/6F/Py7L220 Sharron/IH+gX3i+Ns2jiF0A/O84hnHXn6E/A/6KqjM1Jq 034VeZZyK/Ib/M6jpNe7Ly4viWx+D5Cr+zgXf06nuk/RV+da+Oqu7Je9DRJt/39guuOa0pbAKmAxNE6F fznXi+23qnf18FFym95fb84560Nscc9i7Q8HknQV/2lXyB/NhXcyn/z94w5T/2lXxW/dhXS+0/9tWKvP 1a1hfD7N/vgp9mA77Bo/Wvy/+ha5095rCd0Y/oVv4M fkCv9fc3szR/3a3+Jytu4r2CfiqHoyuEgwBSp49rj2n1vvuOJk+0Db0N77P/u57p8W/GO8acmH5/+7tG /nzpCcoB8UfY9Guf5dTM+7sc+R3tD9R/+fvxjynLfsGc9gJ/ddlXGkPYV+6eZ5dbx6qQ6JY9zji89Zm5 hXKHmgZt12amgP3fO4i7BL4ngZW/rQc9/lcfGhz3Mz Qo/7cY6CrF04B/o+nag0LqZXeZQzxOa7cihTzXobhd41+684TbN8/aL/Oo8xqu/ICNu4x32CvKV63rWZ 7vOo/u1H883K/k8qonx0J+8vd27A/6NtRf+4O+Q9VX7cbhkv1e25D2IMf37gp4rsO/q/gbdJX1GuaK2c XfHV/7a3CH217C/lcB/1x9VwYKgbcsZ9esfsOB/I56 hD/cDy6mj22bhmIVb7tg05DgO/lReHb4eJzIrvs/ixB+ll44ZT86y67/KKNawzb7n37Wq0v/UU/5A4f8 2zP/hX8s8Il37zxteogLF12MB//VUPkMAraS7YzR8EiBzRnwWyNMJ5O0QJ5ykv0k1yx+CM41f1cMN3A8 wiejC5/U9UQ9E/KV5f42gAhYD/z4jxQznzoq/p73Og 5+HAdblK3DJk9Saxs4i9q5R2XiODx1g/cp393xMBW1W/l7R/t6d17aAxzK//qEe8qk1OxnCdIMyk1Q+f FMdT1RSXMgDFXrcj0h3t+cH4xR/ioB/ZmSCpIPZ2NpIF7EP9lzQx70mvyTO349A7stYVJjveRt/kcxDe bjip1bgnzueTiw/Nxs4sPjV+nx/neuJ4NnsC6W86Rq +v+Gtbe+S5qhqHhRP8gf9XhSY415Cus++zZsIt0+XFvlWah/bZ2HfmI/hv5a/X/O5tcumK7FMTj+iryu elZDeq1/Y6G/qyP/QN2M1OkxYkwDqW3LldU+q+yNWHi+q+sRFZ73cA3hjE/jvni+jufr6K+jl126Etf7 K/pqi4j9p5Fl0FjH+hexZ5KP/dxbzxF6Pvbu4QNo+F N7uL173a0EtbLD0og1LmLKP81mog9Jy4nfZJfBjctNY+ZN90uaQ/pplY8nqK/zi4X74eH+ah6pQpB+wn ZnXI56oc/J4781ChpQJyHpa8jA1mQeamK+ykgG80ZQ+9bSl0yxeX1rCx3MmB2uUr8dxUqL+Kd1Zq775u f/to9Mv1FLs1jpgywR/FaIu5ysJh/9VX/3N1DP/Ope E/e1Nw4b+NUGfrW/Parker/vr9b7G/jVFn51/vX55WwuVrmuC5/ardaDW/uTVenzZ7Gx/p414xZ+fyi13d3E [file] KOm/MALIK+ApCE/VbxpYi5DIsuaDNGDRdA7es1zfDsOyCyiJcHffYDjoA1IE8vDQeZS8LEeSllx3FE55l+ ZTJZxFQ4Fo+ydBrs8XE+jR6Km6RpJtjblMRuFwS6L3rpAiQYz6VP9V9McJrN7EL5eepbmQp8aggimMUy DUYEhm1Qh0kHsGbDREmZ40pB70tB0DrCh1+ThsJPGx BD8eRAX9opqJlXjkfunXA74FhNLQf/ALlvnVGoqFWZ1fY48zjtrkFFrtuUICI6gkG2S7u/GlRZ2Jl43r cAxiswzWC+Ioao7OHK+Ij+ORzd0gdoHvH/Aa3ZGFQBqVVb/x6xxoT34yaRKW/jbxG9cLA2nMwl8TeH85 SGID3ojvyDvKWDLKL8vHQ+dXfus9+VhUW/Kx6O+cfC vNC0wR68chdE8Dh87aO2fx3hqwj0V3wkujgFmCAquiL/giI6sshBygVvKKg85trfNPic1+lpsNONJEXJ w+EWe7i4/k4xRmmltKSIW+iL7rS4ev0eTkhxLGi6cVUHngFfv6od2SaeGEQw+LKkg+ZlhB39Mm0K1054 Wj1h6lKff9LAulowsqCOLem+7Jx/IEaipmXE8+Fr2A bzmipAQLcGwGEk5FbpKxHhsTtyYdpWV5SX95BVAcu3/6QstoVA0Oq+K9YBLYoXfiFew1+/pE/MSefCxX uG1v8sSyPjmLnX6DuSPjkXSSu2OH9zryh25Jh3Z6T3109sOpYJ+Rkm6T933Ke5KgnFGh0V1v+VhkBB8+ zohbw5hiAW4E42w/vcPHkmfy++VprtDl7URvfNU56Y MRFkUTv0WNLZamT2Q342I8MTK5CY9moU21fTjH97JpMldpqfzC14z9Na/qkdOuhLl3FP0QMveCEsmV+j OD1zpF3S+pile driving superintendent/cp/PiNS4SHQnw00V/SG6tO4qsUN5e7FmCfKkJ3+D6kaQ3vKfAKENF7+J0cYoPWtynrv [file] TtqWN4qjSg4zSxYuSMTWP9Rqg5DzURVvWIDPYk2+QhU7WEK0uLQmLhbqKNH8YdkHOQCEC3W= ID Date Data Source [id number] 09/25/2019 08:37:36 AM EDT [address] [address] Name: ODIN TIANOB: 1935Sex: MOrdering Provider: EVAN Hess Prov: EVAN EPSOSITOReferrsharonda Provider: Procedure Performed: XR CHEST PA AND LATERALExam Date: 09/25/2019 08:32MRN: [id number] Number: [id number] Class: InpatientAccount #: [id number] for Exam: ATX/effusionsTechnique: AP and lateral views obtained.Comparison: September 24, 2019Findings: There are small bilateral pleural effusions left greater than right. Bibasilar airspace disease is present consistent with atelectasis versus pneumonia left greater than right.Intracardiac defibrillator appears in satisfactory position.IMPRESSION: Bilateral pleural effusions and bibasilar atelectasis versus pneumonia left greater than right. No significant change from prior study. There does appear to be some interval improvement in interstitial density likely representing resolution of pulmonary edema.Report electronically signed by: MAR WATTS On 09/25/2019 8:37 AMWorkstation ID: [id number] Name Value Range Interpretation Code Description Data Rema rce(s) Supporting Document(s) ID Date Data Source [id number] 09/25/2019 03:51:35 AM EDT [facility] Name Value Range Interpretation Code Description Data Rema rce(s) Supporting Document(s) SODIUM 139 mmol/L (136-145) [facility] POTASSIUM 3.8 mmol/L (3.6-5.2) [facility] CHLORIDE 100 mmol/L (100-108) [facility] CO2 35 mmol/L (22-31) [facility] ANION GAP 4 mmol/L (7-16) L [facility] UREA NITROGEN 56 mg/dL (7-24) [facility] CREATININE 2.02 mg/dL (0.80-1.30) [facility] BUN/CREAT RATIO 27.7 RATIO (10.0-20.0) [facility] GLUCOSE 123 mg/dL (70-99) [facility] CALCIUM 8.6 mg/dL (8.4-10.2) [facility] GFR 32 ml/min/1.73m2 (>59) [facility] GFR ( AMER) 39 ml/min/1.73m2 (>59) [facility] GFR INTERPRETATION [facility] --NORMAL KIDNEY FUNCTION OR MILD DISEASE - GFR >OR= 60CHRONIC KIDNEY DISEASE - GFR 15 - 59RENAL FAILURE - GFR <15 Est. GFR calculation based on the MDRDstudy equation, which assumes a steadystate for creatinine. Est. GFR should notbe used for medication dosing. ID Date Data Source [id number] 09/25/2019 03:51:35 AM EDT [facility] Name Value Range Interpretation Code Description Data Rema rce(s) Supporting Document(s) MAGNESIUM 2.4 mg/dL (1.7-2.4) [facility] ID Date Data Source [id number] 09/25/2019 03:26:09 AM EDT [facility] Name Value Range Interpretation Code Description Data Rema rce(s) Supporting Document(s) PT 16.5 s (9.2-11.9) [facility] INR 1.61 [facility] SUGGESTED THERAPEUTIC RANGES USING INR F ORSTABILIZED ANTICOAGULATED PATIENTS:STANDARD DOSE THERAPY INR 2.0-3.0 DVT, PE, PREVENT DVT OR EMBOLISMHIGH DOSE THERAPY INR 2.5-3.5 PREVENT EMBOLISM FROM MECHANICAL HEART VALVE ID Date Data Source [id number] 09/25/2019 03:17:44 AM EDT [facility] Name Value Range Interpretation Code Description Data Rema rce(s) Supporting Document(s) WBC 6.1 10*3/uL (4.1-11.0) [facility] RBC 3.42 10*6/uL (4.60-6.10) [facility] HGB 7.6 g/dL (13.5-18.0) [facility] HCT 23.1 % (41.0-53.0) [facility] MCV 67.6 fL (80.0-95.0) [facility] MCH 22.3 pg (27.0-32.0) [facility] MCHC 33.0 g/dL (32.0-36.0) [facility] RDW 16.0 % (10.5-14.5) [facility] PLT 136 10*3/uL (150-450) [facility] MPV 9.5 fL (7.1-10.7) [facility] ID Date Data Source [id number] 09/24/2019 09:21:38 PM EDT [facility] Name Value Range Interpretation Code Description Data Rema rce(s) Supporting Document(s) POTASSIUM 3.8 mmol/L (3.6-5.2) [facility] ID Date Data Source [id number] 09/24/2019 09:21:38 PM EDT [facility] Name Value Range Interpretation Code Description Data Rema rce(s) Supporting Document(s) MAGNESIUM 2.3 mg/dL (1.7-2.4) [facility] ID Date Data Source [id number] 09/24/2019 04:09:02 PM EDT [facility] [place] NT INFORMATIONPatient MRN Name Date of Age Gend*PT [id number] Odin Jones 1935 83 years M IPPT Location Admission Date/Time Visit ID Attending [id number] 09/20/19 0954 --- Elizabeth De La Garza MD([id number]) EPI ID CSN Admitting Provider [id number] Elizabeth De La Garza MD([id number]) Attestation signed by Beck Martins DO at 09/24/2019 4:08 PMProcedure performed under my supervision, I agree with above report.Beck Martins DO 09/24/2019 4:08 PMDepartment of Interventional Radiology Pt evaluated in IR for a possible thoracentesis.US used to scan both lung butt posteriorly.Small amount of pleural fluid seen bilaterally.There would be an increased chance of causing lung injury if thoracentesis wereto be performed on either side.Not enough fluid to safely perform thoracentesis at this time on either side.Harjinder Sutton, PADepartment of Interventional Radiology Name Value Range Interpretation Code Description Data Rema rce(s) Supporting Document(s) ID Date Data Source [id number] 09/24/2019 02:16:04 PM EDT [address] [address]Bedqzhk Name: ODIN ADAIRDAVIDOB: 1935Sex: MOrdering Provider: EVAN Chenhoriziyad Prov: EVAN ESPOSITOReferrsharonda Provider: Procedure Performed: US THORACENTESIS LEFTExam Date: 09/24/2019 13:26MRN: [id number] Number: [id number] Class: InpatientAccount #: [id number] for Exam: Bilateral pleural effusionsThis is an 83-year-old male with bilateral pleural effusions by recent medical imaging. Thoracentesis has been requested. Ultrasound was used to scan both lung butt posteriorly. Ultrasound images were documented. There was a small amount of pleural fluid noted bilaterally. There was not enough pleural fluid in either side of the chest to safely perform thoracentesis at this time. There was an increased likelihood of causing lung injury if thoracentesis were to be performed on either side. The patient was evaluated by Harjinder Sutton PA-C under the direct supervision of Dr. Martins.Impression: Thoracentesis was not performed on either side due to the above findings.Report electronically approved by: HARJINDER SUTTON On 09/24/2019 1:29 PMThe procedure described above was performed under my supervision and I agree with this reportReport electronically signed by: BECK MARTINS On 09/24/2019 2:16 PMWorkstation ID: [id number] Name Value Range Interpretation Code Description Data Rema rce(s) Supporting Document(s) ID Date Data Source [id number] 09/24/2019 11:52:37 AM EDT [facility] Name Value Range Interpretation Code Description Data Rema rce(s) Supporting Document(s) POC NOVA GLU 141 mg/dL (70-99) [facility] PERFORMED BY [facility] STAFF ID Date Data Source [id number] 09/24/2019 01:40:21 PM EDT [facility] Name Value Range Interpretation Code Description Data Rema rce(s) Supporting Document(s) MAGNESIUM 2.3 mg/dL (1.7-2.4) [facility] ID Date Data Source [id number] 09/24/2019 01:40:21 PM EDT [facility] Name Value Range Interpretation Code Description Data Rema rce(s) Supporting Document(s) POTASSIUM 3.6 mmol/L (3.6-5.2) [facility] ID Date Data Source [id number] 09/24/2019 07:49:13 AM EDT [facility] Name Value Range Interpretation Code Description Data Rema rce(s) Supporting Document(s) POC NOVA GLU 117 mg/dL (70-99) [facility] STAFF ID Date Data Source [id number] 09/24/2019 07:41:15 AM EDT [address] [address]Btncmlr Name: ODIN TIANOB: 1935Sex: MOrdering Provider: JENNA Montelongo Prov: JENNA Rogers Provider: Procedure Performed: XR CHEST PORTABLEExam Date: 09/24/2019 07:16MRN: [id number] Number: [id number] Class: InpatientAccount #: [id number] for Exam: pleural effusionsTechnique: AP portable view obtained.Comparison: 09/23/2019.Findings: Pulmonary artery line has been removed. Bilateral pleural effusions and moderate lower lung atelectasis or infiltrates appear unchanged. Cardiac silhouette is enlarged and unchanged. Calcified ectatic aortic arch appears stable. Single lead pacer appears unchanged in position.IMPRESSION: Bilateral effusions and moderate lower lung atelectasis/infiltrates not significantly changed.Report electronically signed by: PEMA ARELLANO On 09/24/2019 7:41 AMWorkstation ID: [id number] - [id number] Name Value Range Interpretation Code Description Data Rema rce(s) Supporting Document(s) ID Date Data Source [id number] 09/24/2019 06:08:40 AM EDT [facility] Name Value Range Interpretation Code Description Data Rema rce(s) Supporting Document(s) SODIUM 139 mmol/L (136-145) [facility] POTASSIUM 4.5 mmol/L (3.6-5.2) [facility] CHLORIDE 104 mmol/L (100-108) [facility] CO2 30 mmol/L (22-31) [facility] ANION GAP 5 mmol/L (7-16) L [facility] UREA NITROGEN 51 mg/dL (7-24) [facility] CREATININE 1.74 mg/dL (0.80-1.30) [facility] BUN/CREAT RATIO 29.3 RATIO (10.0-20.0) [facility] GLUCOSE 125 mg/dL (70-99) [facility] CALCIUM 9.0 mg/dL (8.4-10.2) [facility] GFR 38 ml/min/1.73m2 (>59) [facility] GFR ( AMER) 46 ml/min/1.73m2 (>59) [facility] GFR INTERPRETATION [facility] --NORMAL KIDNEY FUNCTION OR MILD DISEASE - GFR >OR= 60CHRONIC KIDNEY DISEASE - GFR 15 - 59RENAL FAILURE - GFR <15 Est. GFR calculation based on the MDRDstudy equation, which assumes a steadystate for creatinine. Est. GFR should notbe used for medication dosing. ID Date Data Source [id number] 09/24/2019 04:34:11 AM EDT [facility] Name Value Range Interpretation Code Description Data Rema rce(s) Supporting Document(s) MAGNESIUM 2.5 mg/dL (1.7-2.4) [facility] ID Date Data Source [id number] 09/24/2019 04:34:11 AM EDT [facility] Name Value Range Interpretation Code Description Data Rema rce(s) Supporting Document(s) POTASSIUM 4.4 mmol/L (3.6-5.2) [facility] ID Date Data Source [id number] 09/24/2019 03:58:46 AM EDT [facility] Name Value Range Interpretation Code Description Data Rema rce(s) Supporting Document(s) PT 13.7 s (9.2-11.9) [facility] INR 1.33 [facility] SUGGESTED THERAPEUTIC RANGES USING INR F ORSTABILIZED ANTICOAGULATED PATIENTS:STANDARD DOSE THERAPY INR 2.0-3.0 DVT, PE, PREVENT DVT OR EMBOLISMHIGH DOSE THERAPY INR 2.5-3.5 PREVENT EMBOLISM FROM MECHANICAL HEART VALVE ID Date Data Source [id number] 09/24/2019 12:00:23 AM EDT [facility] [place]PAT[place] NT INFORMATIONPatient MRN Name Date of Age Gend*PT [id number] Odin Jones 1935 83 years M IPPT Location Admission Date/Time Visit ID Attending [id number] 09/20/19 0954 --- Elizabeth De La Garza MD([id number]) EPI ID CSN Admitting Provider [id number] Elizabeth De La Garza MD([id number]) [place] [address] OPERATIVE REPORT OPNAME: ODIN JONES LuanneProsperMaria Antonia#: [id number] #: [id number] ADMISSION DATE: 09/20/2019DOB: 1935 SEX: M PT TYPE: I SURACCT #: [id number] CARE PHYSICIAN: PCP PROVIDER REQUESTDATE OF OPERATION: 09/20/2019SURGEON:Elizabeth De La Garza MD.INTEGRATION PROJECT MANAGER:GARRET Wise.PREOPERATIVE DIAGNOSES:1. Coronary artery disease.2. Paroxysmal atrial fibrillation.POSTOPERATIVE DIAGNOSES:1. Coronary artery disease.2. Paroxysmal atrial fibrillation.SURGICAL PROCEDURES:1. Coronary artery bypass graft x3.2. Cryoablation to left and the right atrium with clipping of the leftatrial appen dage.BRIEF HISTORY:This is an 83-year-old male patient with history of paroxysmal atrialfibrillation and pacemaker placement. Patient also has ischemiccardiomyopathy and coronary artery disease. He had a previous angioplasty,recently developed recurrent symptoms. Cardiac catheterization showssevere 3-vessel coronary artery disease. Patient therefore is referred forsurgical evaluation. We feel patient to be a candidate for coronary arterybypass surgery and cryoablation.LAYOUT OF THE GRAFT:The left internal mammary artery was grafted to the left anteriordescending coronary artery, free right internal mammary artery was graftedto the first obtuse marginal artery and a single vein graft was grafted tothe posterior descending coronary artery. Patient tolerated the procedurewell and was stable during the entire procedure. Cryoablation wasperformed on the left and right atrium and left atrial appendage wasclipped with a 50 mm AtriCure clip. Patient tolerated the procedure well,bypass without difficulty.SURGICAL TECHNIQUE:After informed consent was obtained, patient was then brought into theoperating room and placed supine on the operating table. Generalendotracheal anesthesia was achieved. The patient then had a Manteca-Ganzcatheter, radial arterial line placed. He was then sterilized and drapedin standard surgical fashion. We then performed midline sternotomyincision through skin and subcutaneous tissue. Then, the sternotomy wasperformed with a sternal saw. Left internal mammary artery was then takendown with cautery and small clips. The right internal mammary artery wasthen taken down with skeletonized fashion as well, but used as a free graftto the obtuse marginal artery. Patient therefore was fully heparinized andthen in the meantime the saphenous vein graft was harvested from rightlower extremity with endoscopic technique by Willy Mosher. Then, we openedthe pericardium after patient was fully heparinized. Ascending aorta wasthen cannulated with double pursestring suture. Right atrium wascannulated with 2 pursestring suture, one to the superior vena cava, one tothe inferior vena cava. Then, we started cardiopulmonary bypass.Ascending aorta was clamped. Antegrade cardioplegia, followed byretrograde cardioplegia were given and we then first performed vein graftanastomosis to the posterior descending coronary artery. This wasperformed with a running 7-0 Prolene suture and then the free rightinternal mammary artery graft was then anastomosed to the distal part ofthe first obtuse marginal artery. Patient appeared to have veryatherosclerotic coronary artery, in which the middle portion cannot begrafted. Then, the left internal mammary artery was then anastomosed tothe left anterior descending coronary artery. This was also performed witha running 8-0 Prolene suture. Then, we turned attention to the left atriumand left atriotomy was performed. Cryoablation was performed to thecoronary sinus to the mitral valve annulus and a box lesion was performedto encircle all the pulmonary veins and left atrial appendage was clippedwith a 50 mm AtriCure clip and then vent was placed through the rightsuperior pulmonary vein to the left ventricle and the left atriotomy wasclosed with 3-0 Prolene suture and then we placed a vena cava clamp on thesuperior vena cava, inferior vena cava and the right atriotomy wasperformed. Cryoablation was performed to the superior vena cava, inferiorvena cava from the free wall incision to the tricuspid valve annulus andthe right atrial appendage and then after this was completed, we thenclosed the right atriotomy with running 4-0 Prolene suture. Then, wede-aired the heart and opened the clamp on the ascending aorta. Partialclamp was placed on the ascending aorta and then the vein graft anastomosiswas performed to the ascending aorta with running 6-0 Prolene suture.Then, the free right internal mammary artery graft was then anastomosed tothe ascending aorta with some running 7-0 Prolene suture through a punchhole. Both the anastomoses were labeled with graft markers and then wechecked the distal anastomosis to make sure no bleeding and after the heartwas revascularized after we de-aired the graft and then heart was weanedoff the card iopulmonary bypass without difficulty. Transesophagealechocardiogram was performed to make sure no air in the heart and then wegave the protamine and decannulated the heart. Careful hemostasis wasperformed. The chest tubes were placed on both sides of chest, mediastinumand then the sternal bone was approximated with interrupted standard steelwires and the fascia was closed with 2-0 Vicryl suture. Skin was closedwith 4-0 Vicryl suture. The patient was hemodynamically stable uponfinishing surgery.JOHN PAUL Montes/QUINCY Job #: [id number] DOC #: [id number]: Lorenzo Khan MD Primary Care Physician Name Value Range Interpretation Code Description Data Rema rce(s) Supporting Document(s) ID Date Data Source [id number] 09/23/2019 08:42:09 PM EDT [facility] Name Value Range Interpretation Code Description Data Rema rce(s) Supporting Document(s) MAGNESIUM 2.5 mg/dL (1.7-2.4) [facility] ID Date Data Source [id number] 09/23/2019 08:42:09 PM EDT [facility] Name Value Range Interpretation Code Description Data Rema rce(s) Supporting Document(s) POTASSIUM 3.9 mmol/L (3.6-5.2) [facility] ID Date Data Source [id number] 09/23/2019 06:59:57 PM EDT [facility] Name Value Range Interpretation Code Description Data Rema rce(s) Supporting Document(s) POC NOVA GLU 118 mg/dL (70-99) [facility] [place] PERFOR[facility] STAFF ID Date Data Source [id number] 09/23/2019 01:38:11 PM EDT [facility] Name Value Range Interpretation Code Description Data Rema rce(s) Supporting Document(s) POC NOVA GLU 112 mg/dL (70-99) [facility] ID Date Data Source [id number] 09/23/2019 01:43:18 PM EDT [facility] Name Value Range Interpretation Code Description Data Rema rce(s) Supporting Document(s) MAGNESIUM 2.4 mg/dL (1.7-2.4) [facility] ID Date Data Source [id number] 09/23/2019 01:43:18 PM EDT [facility] Name Value Range Interpretation Code Description Data Rema rce(s) Supporting Document(s) POTASSIUM 4.2 mmol/L (3.6-5.2) [facility] ID Date Data Source [id number] 09/23/2019 08:48:23 AM EDT [facility] Name Value Range Interpretation Code Description Data Rema rce(s) Supporting Document(s) POC NOVA GLU 124 mg/dL (70-99) [facility] ST[facility] ID Date Data Source [id number] 09/23/2019 07:33:57 AM EDT [address] [address]Qsecyxm Name: ODIN PLASCENCIARDOB: 1935Sex: MOrdering Provider: JENNA Montelongo Prov: JENNA Rogers Provider: Procedure Performed: XR CHEST PORTABLEExam Date: 09/23/2019 07:22MRN: [id number] Number: [id number] Class: InpatientAccount #: [id number] for Exam: pleural effusionsTechnique: Single AP view obtained.Comparison: Multiple prior studies most recent 09/22/2019Findings: Previous midline sternotomy. Atrial closure device identified. Right-sided Manteca-Stewart catheter tip in main pulmonary outflow tract. Tip of pacer lead overlies right ventricle, unchanged.Stable bilateral pleural effusions and bilateral parenchymal lung disease. No pneumothorax.IMPRESSION: No changes.Report electronically signed by: TACO FORD On 09/23/2019 7:33 AMWorkstation ID: [id number] - [id number] Name Value Range Interpretation Code Description Data Rema rce(s) Supporting Document(s) ID Date Data Source [id number] 09/23/2019 03:57:18 AM EDT [facility] Name Value Range Interpretation Code Description Data Rema rce(s) Supporting Document(s) MAGNESIUM 2.7 mg/dL (1.7-2.4) [facility] ID Date Data Source [id number] 09/23/2019 03:57:18 AM EDT [facility] Name Value Range Interpretation Code Description Data Rema rce(s) Supporting Document(s) SODIUM 141 mmol/L (136-145) [facility] POTASSIUM 4.7 mmol/L (3.6-5.2) [facility] CHLORIDE 108 mmol/L (100-108) [facility] CO2 31 mmol/L (22-31) [facility] ANION GAP 2 mmol/L (7-16) L [facility] UREA NITROGEN 43 mg/dL (7-24) [facility] CREATININE 1.44 mg/dL (0.80-1.30) [facility] BUN/CREAT RATIO 29.9 RATIO (10.0-20.0) [facility] GLUCOSE 114 mg/dL (70-99) [facility] CALCIUM 8.8 mg/dL (8.4-10.2) [facility] GFR 47 ml/min/1.73m2 (>59) L [facility] GFR ( AMER) 57 ml/min/1.73m2 (>59) L [facility] GFR INTERPRETATION [facility] --NORMAL KIDNEY FUNCTION OR MILD DISEASE - GFR >OR= 60CHRONIC KIDNEY DISEASE - GFR 15 - 59RENAL FAILURE - GFR <15 Est. GFR calculation based on the MDRDstudy equation, which assumes a steadystate for creatinine. Est. GFR should notbe used for medication dosing. ID Date Data Source [id number] 09/23/2019 03:52:17 AM EDT [facility] Name Value Range Interpretation Code Description Data Rema rce(s) Supporting Document(s) CALCIUM IONIZED 4.96 mg/dL (4.64-5.28) [facility] IONIZED CALCIUM NORMALIZED TO PH 7.40 AN D 37 DEGREES C. ID Date Data Source [id number] 09/23/2019 03:33:01 AM EDT [facility] Name Value Range Interpretation Code Description Data Rema rce(s) Supporting Document(s) WBC 8.4 10*3/uL (4.1-11.0) [facility] RBC 3.81 10*6/uL (4.60-6.10) [facility] HGB 8.4 g/dL (13.5-18.0) [facility] HCT 26.5 % (41.0-53.0) [facility] MCV 69.5 fL (80.0-95.0) [facility] MCH 22.0 pg (27.0-32.0) [facility] MCHC 31.7 g/dL (32.0-36.0) [facility] RDW 16.2 % (10.5-14.5) [facility] PLT 98 10*3/uL (150-450) [facility] MPV 9.3 fL (7.1-10.7) [facility] ID Date Data Source [id number] 09/23/2019 03:25:51 AM EDT [facility] Name Value Range Interpretation Code Description Data Rema rce(s) Supporting Document(s) PT 12.7 s (9.2-11.9) [facility] INR 1.22 [facility] SUGGESTED THERAPEUTIC RANGES USING INR F ORSTABILIZED ANTICOAGULATED PATIENTS:STANDARD DOSE THERAPY INR 2.0-3.0 DVT, PE, PREVENT DVT OR EMBOLISMHIGH DOSE THERAPY INR 2.5-3.5 PREVENT EMBOLISM FROM MECHANICAL HEART VALVE ID Date Data Source [id number] 09/22/2019 08:02:05 PM EDT [address], [place] [address]Enuphxf Name: ODIN TIANOB: 1935Sex: MOrdering Provider: JENNA Montelongo Prov: JENNA Rogers Provider: Procedure Performed: XR CHEST PORTABLEExam Date: 09/22/2019 16:26MRN: [id number] Number: [id number] Class: InpatientAccount #: [id number] for Exam: pleural effusionsTechnique: AP portable view obtained.Comparison: Earlier the same day at 0714 hours.Findings: Pulmonary artery line and pacer leads appear grossly unchanged. Enlarged cardiac silhouette appears stable. Multiple right a nd moderate left pleural effusions are noted increased on the right. Adjacent left greater than right atelectasis and/or infiltrates are probably unchanged.IMPRESSION: Left greater than right effusions and lower lung atelectasis/infiltrates.Report electronically signed by: PEMA ARELLANO On 09/22/2019 8:02 PMWorkstation ID: [id number] - [id number] Name Value Range Interpretation Code Description Data Rema rce(s) Supporting Document(s) ID Date Data Source [id number] 09/22/2019 05:52:33 PM EDT [facility] Name Value Range Interpretation Code Description Data Rema rce(s) Supporting Document(s) POC NOVA GLU 130 mg/dL (70-99) [facility] [place] [facility] STAFF ID Date Data Source [id number] 09/22/2019 02:16:32 PM EDT [facility] Name Value Range Interpretation Code Description Data Rema rce(s) Supporting Document(s) MAGNESIUM 2.6 mg/dL (1.7-2.4) [facility] ID Date Data Source [id number] 09/22/2019 02:11:41 PM EDT [facility] Name Value Range Interpretation Code Description Data Rema rce(s) Supporting Document(s) POTASSIUM 4.6 mmol/L (3.6-5.2) [facility] ID Date Data Source [id number] 09/22/2019 01:14:29 PM EDT [facility] Name Value Range Interpretation Code Description Data Rema rce(s) Supporting Document(s) POC NOVA GLU 141 mg/dL (70-99) [facility] STAFF ID Date Data Source [id number] 09/22/2019 11:32:38 AM EDT [address] [address]Tapwhrp Name: ODIN TIANOB: 1935Sex: MOrdering Provider: JENNA Montelongo Prov: JENNA Rogers Provider: Procedure Performed: US CHESTExam Date: 09/22/2019 10:42MRN: [id number] Number: [id number] Class: InpatientAccount #: [id number] for Exam: pleural effusionTechnique: Real time sonographic images were obtained.Comparison: Chest x-ray earlier todayFindings: No right pleural effusion seen.There is a small left pleural effusion with adjacent airspace disease. Pleural fluid is not enough for a ultrasound-guided thoracentesis to be performed.IMPRESSION: Small left pleural effusion not enough for safe thoracentesis procedure. No right pleural effusion. Left lower lobe airspace disease.Report electronically signed by: TACO FORD On 09/22/2019 11:32 AMWorkstation ID: [id number] - [id number] Name Value Range Interpretation Code Description Data Rema rce(s) Supporting Document(s) ID Date Data Source [id number] 09/22/2019 11:27:41 AM EDT [facility] Name Value Range Interpretation Code Description Data Rema rce(s) Supporting Document(s) POC NOVA GLU 127 mg/dL (70-99) [facility] [place] [facility] STA[facility] ID Date Data Source [id number] 09/22/2019 07:59:45 AM EDT [address] [address]Rjfatfk Name: ODIN TIANOB: 1935Sex: MOrdering Provider: JENNA Montelongo Prov: JENNA Rogers Provider: Procedure Performed: XR CHEST PORTABLEExam Date: 09/22/2019 07:50MRN: [id number] Number: [id number] Class: InpatientAccount #: [id number] for Exam: chest tube removalTechnique: AP portable view obtained.Comparison: 09/20/2019Findings: Endotracheal tube, mediastinal drain and bilateral chest tubes have been removed. No pneumothorax identified. Tip Manteca-Stewart catheter in main pulmonary outflow tract. Tip of left chest wall pacing device overlying right ventricular regions, unchanged.There is a new radiopaque density overlying the left cardiac shadow etiology uncertain. Follow-up is suggested. This is most likely extrinsic to the patient as is not identified previously.Increasing moderate left pleural effusion and severe left basilar lung disease. Very mild right basilar atelectasis. Vascular congestion. There may be mild pulmonary edema. Cardiac and mediastinal silhouettes are unchanged.IMPRESSION: No pneumothorax. increasing moderate left pleural effusion and severe left basilar airspace disease.There may be mild pulmonary edema.Radiopaque density overlying the left cardiac shadow likely extrinsic to the patient is since prior study. This is favored over foreign body.This study was communicated via the departmental critical results reporting protocol.Report electronically signed by: TACO FORD On 09/22/2019 7:59 AMWorkstation ID: [id number] Name Value Range Interpretation Code Description Data Rema rce(s) Supporting Document(s) ID Date Data Source [id number] 09/22/2019 03:28:12 AM EDT [facility] Name Value Range Interpretation Code Description Data Rema rce(s) Supporting Document(s) MAGNESIUM 2.6 mg/dL (1.7-2.4) H [facility] ID Date Data Source [id number] 09/22/2019 03:28:12 AM EDT [facility] Name Value Range Interpretation Code Description Data Rema rce(s) Supporting Document(s) SODIUM 140 mmol/L (136-145) [facility] POTASSIUM 4.6 mmol/L (3.6-5.2) [facility] CHLORIDE 109 mmol/L (100-108) H [facility] CO2 25 mmol/L (22-31) [facility] ANION GAP 6 mmol/L (7-16) L [facility] UREA NITROGEN 35 mg/dL (7-24) H [facility] CREATININE 1.32 mg/dL (0.80-1.30) H [facility] BUN/CREAT RATIO 26.5 RATIO (10.0-20.0) H [facility] GLUCOSE 136 mg/dL (70-99) H [facility] CALCIUM 8.4 mg/dL (8.4-10.2) [facility] GFR 52 ml/min/1.73m2 (>59) L [facility] GFR ([facility]) >60 ml/min/1.73m2 (>59) [facility] GFR INTERPRETATION [facility] --NORMAL KIDNEY FUNCTION OR MILD DISEASE - GFR >OR= 60CHRONIC KIDNEY DISEASE - GFR 15 - 59RENAL FAILURE - GFR <15 Est. GFR calculation based on the MDRDstudy equation, which assumes a steadystate for creatinine. Est. GFR should notbe used for medication dosing. ID Date Data Source [id number] 09/22/2019 03:20:17 AM EDT [facility] Name Value Range Interpretation Code Description Data Rema rce(s) Supporting Document(s) CALCIUM IONIZED 5.08 mg/dL (4.64-5.28) [facility] IONIZED CALCIUM NORMALIZED TO PH 7.40 AN D 37 DEGREES C. ID Date Data Source [id number] 09/22/2019 02:35:09 AM EDT [facility] Name Value Range Interpretation Code Description Data Rema rce(s) Supporting Document(s) PT 12.3 s (9.2-11.9) H [facility] INR 1.18 [facility] SUGGESTED THERAPEUTIC RANGES USING INR F ORSTABILIZED ANTICOAGULATED PATIENTS:STANDARD DOSE THERAPY INR 2.0-3.0 DVT, PE, PREVENT DVT OR EMBOLISMHIGH DOSE THERAPY INR 2.5-3.5 PREVENT EMBOLISM FROM MECHANICAL HEART VALVE ID Date Data Source [id number] 09/22/2019 02:23:43 AM EDT [facility] Name Value Range Interpretation Code Description Data Rema rce(s) Supporting Document(s) WBC 9.9 10*3/uL (4.1-11.0) [facility] RBC 3.54 10*6/uL (4.60-6.10) L [facility] HGB 7.7 g/dL (13.5-18.0) L [facility] HCT 24.6 % (41.0-53.0) L [facility] MCV 69.5 fL (80.0-95.0) L [facility] MCH 21.9 pg (27.0-32.0) L [facility] MCHC 31.5 g/dL (32.0-36.0) L [facility] RDW 16.2 % (10.5-14.5) H [facility] PLT 117 10*3/uL (150-450) L [facility] MPV 8.5 fL (7.1-10.7) [facility] ID Date Data Source [id number] 09/21/2019 05:40:02 PM EDT [facility] Name Value Range Interpretation Code Description Data Rema rce(s) Supporting Document(s) POC NOVA GLU 204 mg/dL (70-99) H [facility]FF ID Date Data Source [id number] 09/21/2019 02:17:55 PM EDT [facility] Name Value Range Interpretation Code Description Data Rema rce(s) Supporting Document(s) POC NOVA GLU 216 mg/dL (70-99) H 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 repairer//zP/4n3i9pzr/5f/8RR1wi/V//ES rvceQ6F50o/bMff+ADS382+ZD+5WfonZ/t+GOF5gsjGhqN8tH2P+Nw2uSnpS5/8bAvk/bPznBVwcuisj Jt/1a7wLhZ/WPwag09UoB54V1FopYpnpY6iygiJwx3 jT4yEvIjOvUDp4vUvw8r3AAH0z89wIvW7dP31QTTkxI7/MmXQ6ONIY/zLwq8QhxZk2qku/fy4X6pXh2b rbP7x924Vn+03Vgbtbuytj7Bzkb7RzzsEkOCNm0ntKDV//pxaU6J7nh/7dnhct16fQUI//X3/tavv/e3 AR4191/9ncXI/uvvzP7+PZEh8S6zu/2dGUfhZwb+KG Aj/evv3+OR6V/7xWF/xW6T76Biai6Vd768M63owcz3lcSdz3HLoJvp1p7R/b0szTH+hWv3av8k2KrUWs Vv/TisDPgjwr5G8oRV+9dLqGzpd408J4vl94AYd/s7o7+d35F5wtxT+fZ1eYv+3jTyteePaV//z867c+ nr3n4682Cw7cdZhJ/2FrkBhe45W2WIogqvs/xVaXtz 22I+56gLebB15K3yRnv+VvvxqJ3VH83/R+dsLUVP6jUtSf0SPmioC56TK2oAcvd1Oi8xv/q5XtbP+8+a 49E4IHu+o/xG/kb+7dOyrL6vIXlxn9P/yUs39gBlcE+uyFfkR3+SnnM9w8TCJXbo422bo2LM/wl22vdl Anabell/W3K0rSr3C6TS7l+eWl26gxmBrkWO71z+y99fxQ n+yV2r41Nwj9z+gW0z/cvP5+oxzBR5r35nS39/4gxJpH/5Scbx+wftBIR2c6+Yhb/+6zgXpMecE240SJ /65AwkHQ2RtO0F/q+/+1T6L//mnJ7j5s/8nGM/g+rJWN3Lx/ycDz+g6hebU0RN7E8/X73iNMFa0m7+LJ BfmKZM//ErGe5eqw/Ynkz/8s8Ni/ILk4H3WjdA/uvv L/LFoq8Hryt/uH0d73o2f7px8Ingm/k5qa6TaIPWanXiyVNZF3A/+YQt8avSt9/6K1OSeBX++JBG/kT+ CC4wlq04284bXS627zv5nnxrterv8flc3AHj6D/Mqb50evYodPXdQpXPWPvngExTcNvgD5Gs70Wtyrhn RwQJbW7eSI+ue9i6D1jmHZnnI69gRtHqsMOtRMZVIY TSPZ/hVKcI6Y+BF5o7jWhmJWDf/Fhj7jjWELuVqzqgkxTSvlsUCQpHfZToixCOuH3UuWo/6PRbHzTtq/ IZjvUqxyHtK0/f533yXJ1lc9y8ogdcXgqX/NRGvhc74vYKgO/ppqz4iUhz2OB0xaBsf/PDvnrpbmfIh/ SzJ+Uas0bPd/8XVH99t0Dgx5a/kT/Ngc4mhsF+Ib/f R3G+r9Zpt0N+I/+g/Ah3AcnUzpYjvNP5egbJjjXd/Q810dMpS7+mqLtRzl1YhT1yie/IR3/nRv5+78c4 x3Hv4+h4b5cxmVRz6stuniCLTJ/IV5Tv/UIc37i/PjIIVYCVDqjjlP65aQYrkEMFE6l2iCg3CtCTMT/T xfe71cd04g5y0d6y6bq96hE4fYZvOLcqyz49whSHU/ uq6qK/q+0NTfsqn+u0ryq9+rlO+7tTD7a85T+4j7QZLyaD+Ktz3ONqU2ch9WJDmcUDG+r6G9T2ktc/IH 9+NVb8wYz/vbpW7geouGDq0Sx+OoX91cjE2qpa+145pkYES6/kqoJ40mfu8P/y2gKyogc5Bz3vuS7bCv Jqpo2jBvJhsB/6dWHL5rnak+B42dzO7lh/kH86//R+ RN5xpDPdI6Wi5eUu1wRtI+B7bdpRt6Z+gj1TQSN6+dHfqmtoH/653C8Jp14zi/r5v86pmq9ns4hMJrY5 7+SPUrQD3ucjOBV+Il+v0i2rp2pPnnI42QpnfzfZV2YacwxtOFi/w8pe3uqjljit3OfUVPIVmtFZ2BWQ dTbMNiB1kC/XBUtvw1oufiX2sFzqgE/VeUi/jYagt4 qidQE9g1lPJmR1z36qOECfkoVMrFpLVfY9q77eF7YAgvRPrQnQ2mINNuGusBMN8kwTnRpfiEHTlKn72y rmbj/vsnOCFnABjCp03Dx6iAG6Kc6C4vFN//picCnvzMx2Bs3IVJeG5B/+jQFwe3pSkUQZp65bZ0J25P hef8h26f+xUpbfkaw25rq99P/go6NtrVOdhpAWPD6F NrSmAAnwM2H3tnAGQL7y217QrL/Nxyv0Kl9XwDYJdosi4/4vzR22KmUYlzWqVHPM8L7yLd8b9s0N+9Hf 4A0BzFa5JSIcNvMRpjDdWCj0WGLiiYeG9gSoj4q7DE25IWQfg5yDvxrmIJj8Yonn9h2N18yi/g5LM9yY mHh+FN9AiO9cUiP9ZqPlTacKI213aX/3RrTJpgL0cM 2DlG1kYe0KtI+5dNRAkhctm7MHKlhP+c7yopm6zSjU5cT5mNpaM+lr11si3OzB84igBvvZ73xa8pzg5d od/R7ETvjm7divm3bdmkXSaxxgR/QS3qheJihKdr+sw9wU1hVitllP3lkA7ml5hlPgxAsGbqozoZo92g U5pafuYwpzmlZtjMS9JU4h7S5aLinqwAvxflHlngSI EWBgwdeBqBJtoKFAVbNdStvXPm562ajmBRcsbZLSbpNKIizczlwccyUCa1EoyesXRgoeuGw5klULJx2p 5D0kbIifPjCIWIfUTGLiWYm3IT3fFARCZvbcqz4HNc0yQVSDopH9qJlelBXTyKBPsAQBJ85uHWoP8urn T6518naQ6irRdzC441NstzrC0/mdU46sS7IjZftaVs kD+QP50d+9ieJ4Nt/36G0Wf8cfK9k2JI2v0EcACG2ibHDgkrt1Ce/eQL4TCIijLpDRCCkS8wBAFCDPX3 cIjg2OcQOuN2LpfRX9CQTL4IydSQhKKK3u1RsJ9bi0m+K3Mu1WeIln0Mh6cUDrTWdGbByxwvN9oQ/nMQ 2o7SVd6gKvMQ3pKZMcnyxLfqhcIVPLN0YxwJJsppYp DvCko4deMrdUrqXqpnk1rbmX1U+3Ds/8Nlhp+4mKRY0vu5WuE29ue0K47L3x/kH50+7a27Bb4dui21Yc 9/m7K40gFto79VjNq0cDVj1OphvoqGumj3+6kO8oj/4q+qu9+52JXlU++baaGO6ZtbrMqrp+v2ewVa0c X5E/fM0s7Nm9khJCSObZ7eiiR4/wvT4gqlTS2yd0P/ 3C/Z1u96E6tdf/kQ1hEQBurpaql9JGH128eHiB01w+GsK64but6qQV+gbHjLscY85GJjA/MshPg2i5ws GBeq/StOC7Z59Mj0KmeeEuOq9Nvyoic7koR/F+nGlfVXo+w92UieMl0ELi0Sd58vC++ga3muQ0Biwe47 mQ3+jVLPTKM/0xamh1l6cajR+cq7/nu4Yr7ZqYUj1Z /m7Q4sJ27oRaFWgxqXaGnqait+RvlO/d/mxV1kvXiWk3IvFnr7eXEo+L7ouQoImVBlp/+uo1f2xZMF/y /ZXoVeUbyi/kL/parker+wboY8NeFjYvLw9evu8uTxukmFvNGb+BXs2N/k1OvmMmpKy+PEnH4dB3w5gGeetm t3GVcCd8U/wk4q46XpJ69O5f3JlGK18h2ocrS5U5vZ WvjqSqIgOyihW0yoZ2DbgYmvZN1/36YWl1plmY58nv+J6F/XNM40Cka+YUpdS5F9k+P1kWUag9eqGOiE rhy18YL/sarAtf/nIeCFf+cjwIT/54ur4O32i/3wk33rLHE5RKxGIMsxcn+Ip5Zu87O60d/fJbqo40SO T24csGyYkt015oj/NG5p/Ij8kcMBy5fvoZ7wNpxcAb M6ou7PIwai0Zh/2CXsJp/9UNQ1IZJjZa/9qM/ps4aSq57dsG/g8VN6gk3M2q7B0bVsSD+CrMw/DTv+Mf 3lCtktKvOut41nQuVJg17Bz4IV072BzMCdlOzHXBdpT08Z2sj79rf4/1Sqgk72lFOLwFf870jNd+4zod e8itImV6xBj+PQ/DvMrXcrjkF/EKUig04cJ26lF06r Lu6NhSh+57bpc55pjTlE0rIP8TBc2U0kIav/c6I8sFrg1UtEbiPtT84ulmpX3+/XrxU5ds/GRX5hbtnJ BfkK/IV+B9m51o9twZX/zguUM086t2XX5ki8S9PakeTeukr1VEiMr212zM69c5C/eo778pFSzyLai0py zgoSfU7Co/b/scK6qB6ymASCd09gPUu61z49VLkiV2 t3ThXl/eAulE76YfhUdvJtj+9bX+j0d9hRODy/6lD/VoT1uUD7iYcK5Qn/jVT6Kgfcdgrnk+iaDgAk7O aeVKrJ42tv5MjUmy9ljX7gyEaI724127jmd209r71fXVV1UxaZZ/tCM/4Jyc/yvhHM+38G72MZUGW553 0N+6B7wdomWW4LEMaaOS6G5e1CI7b7wLQ4bGQ+QTzv PlHBK+8xCmnHb5uR/hOf/A2gPr6Ifv3MCp5cnmIy/5l/BMq0JUcCYe9FF/8cgyy5y95+/aXwb8csiYmt q5SUrZ63mnMoKK9U/nLGQb/A662fWgVHH6bYBDK73kguYXp+Ko4oRurqQm0i9wpxwxft9MdrF6vzh6Cv 5Xls5X+z6K68wpp/VygPKsxOsbJEeGzij2sV/5LKR9 PbQIeHZs8xndv9lS9ixvX5zHLdnAA/x9ZsO+gar22JbcB1Z+ynFI+2pXuteTg/Rh5bfOk6Teoav9di1s Z3Ir10f9E+TKpQdh9qKO/fB/f+mJ/F6fw/p39TQiP+G95it1fuvhudkjVb8K+YP8/ri/cD7UFn5F8s3t fJXlRVBekY/+CvorA+Un2p/v/biknZGWtDPSkrafl6 C/GZ7AfgPnams+HLrkIL+8h0yuqFZaq60EeGnLZjwxyqcLO+QPlEd/A93clMQybM/b/kOgmNCOSj7VNu dXN8rj/gX5auvN+rlg2hdr9myT1hPrKvbE77pG+zsGyk+Dw3odxJ+vifo13S+wrzTefWs0/OsEn49VC3 42PGY9tFLzpjxWrdzsqzS1niH+LoOyaoVnf5BvgVe+ Zrnp8QhkFqOjDK/7W/DUvQenJ1rnkgk8Bh3Ybkt2N4wOzYA5ien2PBxlaWIxaXRwhsiPfU3I5NqHn9LF 8b1lKI0S0nRvqFz7q5VXvkG0Bvfo+GijU1jX46/XaneGlfBVll/t96isipXB+Se11rukCjI62X7/rYl8 PaiH892YPwvgrFw/F/c1GmGYt9aQG5eYm/gJiUS9pM GWC/Q80DUQK5iWPG2PguVl17sU6iG/hdqq1QBtp8oMyzNTP/LpEms9bClSiMFsggCjHQxa8OBbgpZcG+ ZVHotd+XUwp//G2g2BenyS2REt+B35paic7Cmsxn0Wtfp/GLf2ff0bnPBmxEch23sFzhJ59lYocD+kFe XThirz58rnNmNNpxfIvl7+onw2x19d16mc7888+mzK St+becky/nwcX7vNIo/Kv5d5g2rhgx0JqsNyixF7zizo/b/rtlT639Td4fjodB8/kDTxIQEepp3zPS2mYj 4mZWV08Ao/aEr+B3YHGlwkoBacvooi/pOtjkNZ9bmCI1gH2X5oaeYm/oCpbbxe0D15+ue25ypRO9y+KM TNurG+CBgiMeCne2pQls0b1hyxiY3auOnrj/T++theresa +yP50fQ5PdyLjeP1+b7umSRvxji0Cw5cDYwh+A6JZaYtqp19R7qhJOKoA4aucTujh2Vg9kB147MaQjsE /d4SFm53NGQZ+h/EJ+fnhwDus7wrLxvP/Ju556l8+7j/qS5mIet5t8+exDka/Ti8NR3ZPRO99QaWhj91 rl+Jesus+Syjr8anA38w+OQno1Po42pGjXrcqLDr05Mg HJ+3FiP9a832x8+xQVQ1OfNRyaC3eSqPXb4qPuXzhu4zqmPnZvZv76Vh3gzfZhpDn/zsb8iKSU3sXW3s cpQ23yHtZS/zKiEcD/Evv8tpYnyoPVuzCjXyU/Ljp7hz8mHsA/Ewr14a+o5B5GYeGVqmAH67nU2txZm3 dfMN+N5lrCUy85ozKN8yGrl2tPUCkO8vU6a/Km0XHv DV3jm++iyOr/bO3qWjTg8uQ9oAnRbv2w6R+Va3f6uGLSLLlzA4bjp8ePK+i7n59dwB+NZ7q0BjeH5UtR XQ/njttjnU8imNwGxu68Wpsp4wbAXr2bKN6lQU31g59ZDR7clbXO/vq3x+0/sqn/86tch8q50ZztG3i8 Ml0dgS3cv2VUuH3+yrEk7L0yG2ueBR8K19vYpSV12l Zp5nB/LZtTWCE90SI80zfPk+fdEf8E0xe2Q1ve02X8qoolt8krg355giWmlPwfR0prnB5m1vk+/eDvpu x3KKj7B6badq/vyy7wIdHK7DR28R7avjEjY/xiaB03UsPK/tzeBnId+U97tHI24a8VBYx2T+9Jv76lT7 f/0+1o4nR1Ee96R9mv27b37e7VRtholO+T6LsxO+um b9i3QAHwvC/T2hhhBask+N/Q3Etry9y2c5i/sQH9xb32flhTElJ/yr6W2V6V/kT+Z0rIYWD36PuO0xe/ 6Ko/xG+Y38g/z+fLQBX+20ryqN+0fqw9iG/QI2AfvPt10hJ475ossDJ/kpY2u+l7jo9S7PVelz8x8ecp 37KF6a2YzhjX0rB37b7p0d6g80T1R5O/bVHri/o+G6 [file] ojII7BnUxHFhKcewN2v8/Eqs/Ipd/PhCuXnX4h7/Andrés/Cd94oxALvO2DaMv8+vdKxn6CG+DwXH33ltMB 4SI1I1XKWjl2ZnfuU0z/nhpCYYmUthCs8kV+xiCX8C Qrl+N7PRkySAXkQ3/MLGSzzkT+gTUD/QIhtzU3y6s7wFVD1+BIQo/dQjc3QxSU7EuqbCmPrNFgXBws6X FUFCc0qZXOOq678z6e6MuPz9ie2HL+UYhNFXYYm/bRaySXA6bGdoaWvcTrJvsQpt3MVmCSzisDMb5iE1 Ahd/F0Gyiv2Y2v4lIVpcRktmZ9dr5X+MwASUfoJdVO bIeInyc90yxlREkkiq/RT4oqHrYkGdaL/ZBUFNeufRHrthr7UQdA5QR4u/Fu6fPeqL+JAdVbvlG3wFpX 2HSRWkM0Cab8pW9bi0T2tD4ZgCWYfSW8+Mh2/Hy2peb65/QgNSPwGr2+GKeBCd/Aj0dh9g7AuW8Oldq2 /BP931ZG4E8xjO5IFeG/F9Q5ADqAbanXj/K5UUAGL2 zZwQ05wT+ZvyUfEMDJg1r0l0HCXNFbCrK0D3sSKHMZjSIihqbTwIS2UEJrn9I0tnR7fE6Z5lLIuyom2p r48gYHw+yu2yuEuCFsjRNKPNjtiaAfzEBZ+vxINiW7oV9HNDpjCcdnR2zlOwKtz2dPiJb3OwO1R5w3JA VZ+gkmSs+ybeBgA3RwwdiSBD7XxI6wwGq809/3TS2S VB8wtYpthabTIuLySVO318phLZr1gwpI6XIk2N0Q384YIgE8ht8ZXROAROm6eGH074poMSPrICFykMHu ET6SxBjkjfohPZqnKRuEV9O3XpoWBtCgaQPLVZ83dLdz+Opal+DVPGc9BrGIFZqstABApQpCYAmu91WVY [file] BPWhOHyqQP1yiiEzWWUcClenFv8weNG3YLUtIaxMOw4Cp3NuvmP3akVoMuFtEru2XPmdUYAQBa== ID Date Data Source [id number] 09/21/2019 05:30:29 AM EDT [facility] Name Value Range Interpretation Code Description Data Rema rce(s) Supporting Document(s) POC NOVA GLU 179 mg/dL (70-99) H [facility] CLIN[facility] STAFF ID Date Data Source [id number] 09/21/2019 03:43:19 AM EDT [facility] Name Value Range Interpretation Code Description Data Rema rce(s) Supporting Document(s) POC NOVA GLU 175 mg/dL (70-99) H [facility]IN[facility]AFF ID Date Data Source [id number] 09/21/2019 04:52:14 AM EDT [facility] Name Value Range Interpretation Code Description Data Rema rce(s) Supporting Document(s) MAGNESIUM 2.5 mg/dL (1.7-2.4) H [facility] ID Date Data Source [id number] 09/21/2019 04:52:14 AM EDT [facility] Name Value Range Interpretation Code Description Data Rema rce(s) Supporting Document(s) SODIUM 142 mmol/L (136-145) [facility] POTASSIUM 4.3 mmol/L (3.6-5.2) [facility] CHLORIDE 111 mmol/L (100-108) H [facility] CO2 23 mmol/L (22-31) [facility] ANION GAP 8 mmol/L (7-16) [facility] UREA NITROGEN 26 mg/dL (7-24) H [facility] CREATININE 1.04 mg/dL (0.80-1.30) [facility] BUN/CREAT RATIO 25.0 RATIO (10.0-20.0) H [facility] GLUCOSE 170 mg/dL (70-99) H [facility] CALCIUM 8.1 mg/dL (8.4-10.2) L [facility] GFR >60 ml/min/1.73m2 (>59) [facility] GFR ( AMER) >60 ml/min/1.73m2 (>59) [facility] GFR INTERPRETATION [facility] --NORMAL KIDNEY FUNCTION OR MILD DISEASE - GFR >OR= 60CHRONIC KIDNEY DISEASE - GFR 15 - 59RENAL FAILURE - GFR <15 Est. GFR calculation based on the MDRDstudy equation, which assumes a steadystate for creatinine. Est. GFR should notbe used for medication dosing. ID Date Data Source [id number] 09/21/2019 04:51:43 AM EDT [facility] Name Value Range Interpretation Code Description Data Rema e(s) Supporting Document(s) CALCIUM IONIZED 4.92 mg/dL (4.64-5.28) [facility] IONIZED CALCIUM NORMALIZED TO PH 7.40 AN D 37 DEGREES C. ID Date Data Source [id number] 09/21/2019 04:31:16 AM EDT [facility] Name Value Range Interpretation Code Description Data Rema rce(s) Supporting Document(s) PT 12.5 s (9.2-11.9) [facility] INR 1.20 [facility] SUGGESTED THERAPEUTIC RANGES USING INR F ORSTABILIZED ANTICOAGULATED PATIENTS:STANDARD DOSE THERAPY INR 2.0-3.0 DVT, PE, PREVENT DVT OR EMBOLISMHIGH DOSE THERAPY INR 2.5-3.5 PREVENT EMBOLISM FROM MECHANICAL HEART VALVE ID Date Data Source [id number] 09/21/2019 04:24:06 AM EDT [facility] Name Value Range Interpretation Code Description Data Rema rce(s) Supporting Document(s) WBC 10.4 10*3/uL (4.1-11.0) [facility] RBC 3.84 10*6/uL (4.60-6.10) [facility] HGB 8.6 g/dL (13.5-18.0) [facility] HCT 26.3 % (41.0-53.0) [facility] MCV 68.5 fL (80.0-95.0) [facility] MCH 22.3 pg (27.0-32.0) [facility] MCHC 32.6 g/dL (32.0-36.0) [facility] RDW 16.2 % (10.5-14.5) [facility] PLT 133 10*3/uL (150-450) [facility] MPV 8.9 fL (7.1-10.7) [facility] ID Date Data Source [id number] 09/21/2019 02:11:01 AM EDT [facility] Name Value Range Interpretation Code Description Data Rema rce(s) Supporting Document(s) POC NOVA GLU 167 mg/dL (70-99) [facility] [place] PERFORMED BY [facility]INICAL STAFF ID Date Data Source [id number] 09/21/2019 01:25:56 AM EDT [facility] Name Value Range Interpretation Code Description Data Rema rce(s) Supporting Document(s) POC TEMPERATURE [facility] POC SOURCE [facility] PUNCTURE SITE [facility] O2 THERAPY [facility] POC FIO2 40 [facility] CLEMENTINA TEST [facility] MODE [facility] PEEP/MAP 6 CM H2O [facility] PRESSURE SUPPORT 10 CM H2O [facility] SP RATE 14 BMP [facility] POC PH 7.36 pH (7.35-7.45) [facility] POC PCO2 39.3 MMHG (32.0-48.0) [facility] POC PO2 88 MMHG (83-108) [facility] POC SAT O2 96 % (95-99) [facility] POC BASE DEFICIT 3 MMOL/L (0-2) [facility] POC HCO3 22.0 MMOL/L (21.0-29.0) [facility] POC TOTAL CO2 23 MMOL/L (23.0-32.0) [facility]IN[facility] STAFF ID Date Data Source [id number] 09/21/2019 01:09:39 AM EDT [facility] Name Value Range Interpretation Code Description Data Rema rce(s) Supporting Document(s) APTT 42.3 s (22.0-34.3) [facility] ID Date Data Source [id number] 09/21/2019 01:09:39 AM EDT [facility] Name Value Range Interpretation Code Description Data Rema rce(s) Supporting Document(s) PT 12.6 s (9.2-11.9) [facility] INR 1.21 [facility] SUGGESTED THERAPEUTIC RANGES USING INR F ORSTABILIZED ANTICOAGULATED PATIENTS:STANDARD DOSE THERAPY INR 2.0-3.0 DVT, PE, PREVENT DVT OR EMBOLISMHIGH DOSE THERAPY INR 2.5-3.5 PREVENT EMBOLISM FROM MECHANICAL HEART VALVE ID Date Data Source [id number] 09/20/2019 11:58:29 PM EDT [facility] Name Value Range Interpretation Code Description Data Rema rce(s) Supporting Document(s) POC NOVA GLU 159 mg/dL (70-99) [facility] [place] [facility] CLINICAL STAFF ID Date Data Source [id number] 09/21/2019 12:44:34 AM EDT [facility] Name Value Range Interpretation Code Description Data Rema rce(s) Supporting Document(s) POTASSIUM 4.6 mmol/L (3.6-5.2) [facility] ID Date Data Source [id number] 09/21/2019 12:20:07 AM EDT [facility] Name Value Range Interpretation Code Description Data Rema rce(s) Supporting Document(s) WBC 10.3 10*3/uL (4.1-11.0) [facility] RBC 3.90 10*6/uL (4.60-6.10) [facility] HGB 8.7 g/dL (13.5-18.0) [facility] HCT 26.6 % (41.0-53.0) [facility] MCV 68.1 fL (80.0-95.0) [facility] MCH 22.2 pg (27.0-32.0) [facility] MCHC 32.6 g/dL (32.0-36.0) [facility] RDW 16.1 % (10.5-14.5) [facility] PLT 130 10*3/uL (150-450) [facility] MPV 8.2 fL (7.1-10.7) [facility] ID Date Data Source [id number] 09/20/2019 10:09:28 PM EDT [facility] Name Value Range Interpretation Code Description Data Rema rce(s) Supporting Document(s) POC NOVA GLU 151 mg/dL (70-99) [facility] [place] [facility] CLINICAL STAFF ID Date Data Source [id number] 09/21/2019 12:26:52 PM EDT [facility] Name Value Range Interpretation Code Description Data Rema rce(s) Supporting Document(s) POC TEMPERATURE [facility] POC SOURCE [facility] PUNCTURE SITE [facility] O2 THERAPY [facility] POC FIO2 50 [facility] CLEMENTINA TEST [facility] MODE [facility] TIDAL VOLUME 500 mL [facility] RATE 20 BPM [facility] PEEP/MAP 10 CM H2O [facility] POC PH 7.30 pH (7.35-7.45) [facility] POC PCO2 44.6 MMHG (32.0-48.0) [facility] POC PO2 102 MMHG (83-108) [facility] POC SAT O2 97 % (95-99) [facility] POC BASE DEFICIT 4 MMOL/L (0-2) [facility] POC HCO3 22.1 MMOL/L (21.0-29.0) [facility] POC TOTAL CO2 23 MMOL/L (23.0-32.0) [facility] CLINICAL STAFF ID Date Data Source [id number] 09/20/2019 09:18:56 PM EDT [facility] Name Value Range Interpretation Code Description Data Rema rce(s) Supporting Document(s) POC NOVA GLU 146 mg/dL (70-99) [facility] [place] [facility] CLIN[facility] STAFF ID Date Data Source [id number] 09/20/2019 08:24:26 PM EDT [facility] Name Value Range Interpretation Code Description Data Rema rce(s) Supporting Document(s) POC TEMPERATURE [facility] 37.0C POC SOURCE [facility] PUNCTURE SITE [facility] O2 THERAPY [facility] POC FIO2 80 [facility] CLEMENTINA TEST [facility] MODE [facility] TIDAL VOLUME 500 mL [facility] RATE 18 BPM [facility] PEEP/MAP 10 CM H2O [facility] PRESSURE SUPPORT 12 CM H2O [facility] SP RATE 0 BMP [facility] POC PH 7.28 pH (7.35-7.45) [facility] POC PCO2 48.3 MMHG (32.0-48.0) [facility] POC PO2 149 MMHG (83-108) [facility] POC SAT O2 99 % (95-99) [facility] POC BASE DEFICIT 4 MMOL/L (0-2) H [facility] POC HCO3 22.9 MMOL/L (21.0-29.0) [facility] POC TOTAL CO2 24 MMOL/L (23.0-32.0) [facility] CLIN[facility] STAFF ID Date Data Source [id number] 09/20/2019 11:12:34 PM EDT [facility] Name Value Range Interpretation Code Description Data Rema rce(s) Supporting Document(s) POC NOVA GLU 134 mg/dL (70-99) [facility] [place] [facility] CLIN[facility] STAFF ID Date Data Source [id number] 09/20/2019 08:45:15 PM EDT [facility] Name Value Range Interpretation Code Description Data Rema rce(s) Supporting Document(s) SODIUM 141 mmol/L (136-145) [facility] POTASSIUM 4.2 mmol/L (3.6-5.2) [facility] CHLORIDE 112 mmol/L (100-108) [facility] CO2 24 mmol/L (22-31) [facility] ANION GAP 5 mmol/L (7-16) L [facility] UREA NITROGEN 23 mg/dL (7-24) [facility] CREATININE 0.97 mg/dL (0.80-1.30) [facility] BUN/CREAT RATIO 23.7 RATIO (10.0-20.0) [facility] GLUCOSE 138 mg/dL (70-99) [facility] CALCIUM 8.2 mg/dL (8.4-10.2) [facility] GFR >60 ml/min/1.73m2 (>59) [facility] GFR ( AMER) >60 ml/min/1.73m2 (>59) [facility] GFR INTERPRETATION [facility] --NORMAL KIDNEY FUNCTION OR MILD DISEASE - GFR >OR= 60CHRONIC KIDNEY DISEASE - GFR 15 - 59RENAL FAILURE - GFR <15 Est. GFR calculation based on the MDRDstudy equation, which assumes a steadystate for creatinine. Est. GFR should notbe used for medication dosing. ID Date Data Source [id number] 09/20/2019 08:45:15 PM EDT [facility] Name Value Range Interpretation Code Description Data Rema rce(s) Supporting Document(s) MAGNESIUM 2.5 mg/dL (1.7-2.4) [facility] ID Date Data Source [id number] 09/20/2019 08:35:08 PM EDT [facility] Name Value Range Interpretation Code Description Data Rema rce(s) Supporting Document(s) CALCIUM IONIZED 5.00 mg/dL (4.64-5.28) [facility] IONIZED CALCIUM NORMALIZED TO PH 7.40 AN D 37 DEGREES C. ID Date Data Source [id number] 09/20/2019 08:23:56 PM EDT [facility] Name Value Range Interpretation Code Description Data Erma rce(s) Supporting Document(s) WBC 7.2 10*3/uL (4.1-11.0) [facility] [place] RBC 3.92 10*6/uL (4.60-6.10) [facility] HGB 8.8 g/dL (13.5-18.0) [facility] HCT 26.9 % (41.0-53.0) [facility] MCV 68.6 fL (80.0-95.0) [facility] MCH 22.3 pg (27.0-32.0) [facility] MCHC 32.6 g/dL (32.0-36.0) [facility] RDW 16.1 % (10.5-14.5) [facility] PLT 114 10*3/uL (150-450) [facility] MPV 8.3 fL (7.1-10.7) [facility] ID Date Data Source [id number] 09/20/2019 07:24:07 PM EDT 36 [address] [address]Lzpmqjp Name: ODIN PLASCENCIARDOB: 1935Sex: MOrdering Provider: ELIZABETH Salgado Prov: ELIZABETH DE LA GARZAReferrsharonda Provider: Procedure Performed: XR CHEST FOR SPONGE/NEEDLE/INSTRUMENT COUNTExam Date: 09/20/2019 19:17MRN: [id number] Number: [id number] Class: InpatientAccount #: [id number] for Exam: missing debakey forcepsTechnique: AP portable view obtained.Comparison: NoneFindings: No forceps are seen in the [id number]. [place] catheter tip is in the right ventricular outflow tract. Bilateral chest tubes are seen. Technique is not optimal for exclusion of pneumothorax. Multilead pacer is seen.IMPRESSION: No forceps are seen in the [id number].Findings/impression were communicated by departmental critical results protocol.Report electronically signed by: JOSEPH COFFEY On 09/20/2019 7:24 PMWorkstation ID: [id number] Name Value Range Interpretation Code Description Data Rema rce(s) Supporting Document(s) ID Date Data Source [id number] 09/20/2019 06:19:09 PM EDT [facility] [place] NT INFORMATIONPatient MRN Name Date of Age Gend*PT [id number] Odin Jones 1935 83 years M SDAPT Location Admission Date/Time Visit ID Attending Provider --- --- --- --- EPI ID CSN Admitting Provider [id number] ---[place] ExamPerformed by: Kris Fulton MDInformation: Diagnostic Indication for [place]: hemodynamic monitoring Physician Requesting Echo: Elizabeth De La Garza MD Patient Location: OR Intubated: Yes Bite Block: Yes Heart Visualized: Yes Insertion: Easy Probe Type: Multiplane Modalities: 2D, color flow mapping, continuous wave Doppler and pulse waveDopplerEchocardiographic and Doppler Measurements:Ventricles: Right Ventricle: Cavity size: normal Hypertrophy: No Thrombus: No Global Function: normal Left Ventricle: Cavity size: normal Hypertrophy: No Thrombus: No Global Function: Normal Ejection Fraction %: 55 Regional wall motion is normal unless noted below:Valves: Aortic Valve: Annulus: normal Stenosis: none Area (cm ): 2.6 Mean Gradient (mmHg): 4 Aortic PHT (ms): 548 Regurg: mild Leaflet Morphology: normal Leaflet Motion: restricted Specify leaflets with abnormal motions: Non-coronary leaflet Mitral Valve: Annulus: normal Stenosis: none Area (cm ): 6.12 Mean Gradient (mmHg): 0 Mitral PHT (ms): 51 Regurg: trace/trivial Leaflet Morphology: normal Leaflet Motion: normal Tricuspid Valve: Annulus: normal Stenosis: none Regurg: trace/trivial Leaflet Morphology: normal Leaflet Motion: normal Pulmonic Valve: Annulus: normal Stenosis: none Regur g: trace/trivialAorta: Ascending Aorta: Size: normal Dissection: No Plaque thickness (mm): 0-3 Plaque Mobile: No Aortic Arch: Size: normal Dissection: No Plaque thickness (mm): 0-3 Plaque Mobile: No Descending Aorta: Size: normal Dissection: No Plaque thickness (mm): 0-3 Plaque Mobile: NoAtria: Right Atrium: Size: normal SEC (Smoke): No Thrombus: No Tumor: No Device: Yes Left Atrium: Size: dilated SEC (Smoke): Yes Thrombus: No Tumor: No Device: No Left Atrial Appendage: normal Atrial Comments: Pulmonary artery catheter seen through rightatrium into right ventricle. Septa: Intra-Atrial Septal Morphology: normal Intra-Ventricular Septal Morphology: normal Diastolic Functions: Diastolic Dysfunction Grade: II (E)= Early Diastolic Fillin (A)= Atrial Contraction Trans-mitral Flow: 0 E/A Ratio: 2.9 Other Findings: Pericardium: normal Pleural Effusion: none Pulmonary Arteries: normal Pulmonary Venous Flow: blunted (decreased) systolic flowSTS Required Documentation: Pre OP CPB: Diffuse Aortic Calcification (Porcelain Aorta): No Assessment of Ascending Aort a/Arch for Atheroma/Plaque: Yes Assessment of Aorta Disease: Protruding Atheroma < 5 mm andExtensive intimal thickening Aortic Condition Altered Plan: No Highest Level Aortic Insufficiency/Regurg: Mild Eccentric Jet: Yes Highest Level Mitral Insufficiency/Regurg: Trace/trivial Eccentric Jet: No Highest Level Tricuspid Insufficiency/Regurg: Trace/trivial ISSA (cm ): 2.6 Aortic Mean Gradient (mmHg): 4 MVA (cm ): 6.12 Mitral Mean Gradient (mmHg): 0 Post OP CPB: Post Op Echo Performed to Evaluate Valve(s): No Highest Level Aortic Insufficiency/Regurg: Mild Highest Level Mitral Insu fficiency/Regurg: Mild Highest Level Tricuspid Insufficiency/Regurg: Mild Highest Level Pulmonic Insufficiency/Regurg: Trace/trivial Post Op Ejection Fraction %: 55 Repaired/Replaced Aortic Valve: No ISSA (cm ): Same Mean Gradient (mmHg): N/a Repaired/Replaced Mitral Valve: No MVA (cm ): Same Mean Gradient (mmHg): N/a Repaired/Replaced Tricuspid Valve: No Mean Gradient (mmHg): N/a New RWMAs: NoAnesthesia Information: Anesthesiologist: Kris Fulton MD 2nd Anesthesiologist: Lino Snyder MD Surgeon: Elizabeth De La Garza MD Residents: Soto Grady Name Value Range Interpretation Code Description Data Rema rce(s) Supporting Document(s) ID Date Data Source [id number] 09/20/2019 06:20:37 PM EDT [facility] Name Value Range Interpretation Code Description Data Rema rce(s) Supporting Document(s) POC SOURCE [facility] POC TEMPERATURE [facility] P[facility] FIO2 [facility] P[facility] PH 7.36 pH (7.35-7.45) [facility] P[facility] PCO2 37.7 MMHG (32.0-48.0) [facility] P[facility] PO2 86 MMHG (83-108) [facility] P[facility] SAT O2 96 % (95-99) [facility] POC BASE DEFICIT 4 MMOL/L (0-2) H [facility] POC HCO3 21.2 MMOL/L (21.0-29.0) [facility] POC TOTAL CO2 22 MMOL/L (23.0-32.0) L [facility] PERFORMED [facility] POC HCT 26 % (41.0-53.0) L [facility] POC SODIUM 142 MMOL/L (136-145) [facility] POC POTASSIUM 4.5 MMOL/L (3.6-5.2) [facility] POC IONIZED CALCIUM 6.0 MG/DL (4.6-5.3) H [facility] POC GLU 146 MG/DL (70-99) H [facility] PER[facility] ID Date Data Source [id number] 09/20/2019 06:19:27 PM EDT [facility] Name Value Range Interpretation Code Description Data Rema rce(s) Supporting Document(s) POC ACT 109 s (80-140) [facility]FOR[facility] STA[facility] ID Date Data Source [id number] 09/20/2019 06:53:42 PM EDT [facility] Name Value Range Interpretation Code Description Data Rema rce(s) Supporting Document(s) APTT 24.3 s (22.0-34.3) [facility] ID Date Data Source [id number] 09/20/2019 06:53:42 PM EDT [facility] Name Value Range Interpretation Code Description Data Rema rce(s) Supporting Document(s) PT 16.9 s (9.2-11.9) H [facility] INR 1.66 [facility] SUGGESTED THERAPEUTIC RANGES USING INR F ORSTABILIZED ANTICOAGULATED PATIENTS:STANDARD DOSE THERAPY INR 2.0-3.0 DVT, PE, PREVENT DVT OR EMBOLISMHIGH DOSE THERAPY INR 2.5-3.5 PREVENT EMBOLISM FROM MECHANICAL HEART VALVE ID Date Data Source [id number] 09/20/2019 05:29:20 PM EDT [facility] Name Value Range Interpretation Code Description Data Rema rce(s) Supporting Document(s) POC SOURCE [facility] POC TEMPERATURE [facility] POC FIO2 [facility] POC PH 7.45 pH (7.35-7.45) [facility] POC PCO2 34.2 MMHG (32.0-48.0) [facility] POC PO2 385 MMHG (83-108) H [facility] POC SAT O2 100 % (95-99) H [facility] POC BASE EXCESS 0 MMOL/L (0-3) [facility] POC HCO3 23.5 MMOL/L (21.0-29.0) [facility] POC TOTAL CO2 25 MMOL/L (23.0-32.0) [facility] POC HCT 26 % (41.0-53.0) L [facility] POC SODIUM 137 MMOL/L (136-145) [facility] POC POTASSIUM 5.7 MMOL/L (3.6-5.2) H [facility] POC IONIZED CALCIUM 4.4 MG/DL (4.6-5.3) L [facility] POC GLU 170 MG/DL (70-99) H [facility] ID Date Data Source [id number] 09/20/2019 05:34:23 PM EDT [facility] Name Value Range Interpretation Code Description Data Rema rce(s) Supporting Document(s) POC ACT 444 s (80-140) H [facility] ID Date Data Source [id number] 09/20/2019 04:57:57 PM EDT [facility] Name Value Range Interpretation Code Description Data Rema rce(s) Supporting Document(s) POC SOURCE [facility] POC TEMPERATURE [facility] 37.0C POC FIO2 70 [facility] POC VENOUS PH 7.43 pH (7.33-7.43) [facility] POC VENOUS PCO2 34.1 MM HG (38.0-50.0) L [facility] P[facility] VENOUS PO2 50 MM HG (30-50) [facility] POC VENOUS SO2 86 % (60-85) H [facility] POC VENOUS BASE DEFICIT 1 MMOL/L (0-2) [facility] P[facility] VENOUS HCO3 22.7 MMOL/L (23.0-27.0) L [facility] POC VENOUS TOTAL CO2 24 MMOL/L (24-28) [facility] POC HCT 27 % (41.0-53.0) L [facility] POC SODIUM 138 MMOL/L (136-145) [facility] POC POTASSIUM 5.4 MMOL/L (3.6-5.2) H [facility] POC IONIZED CALCIUM 4.7 MG/DL (4.6-5.3) [facility] POC GLU 178 MG/DL (70-99) H [facility] ID Date Data Source [id number] 09/20/2019 05:09:01 PM EDT [facility] Name Value Range Interpretation Code Description Data Rema rce(s) Supporting Document(s) POC ACT 555 s (80-140) H [facility] STAFF ID Date Data Source [id number] 09/20/2019 04:29:26 PM EDT [facility] Name Value Range Interpretation Code Description Data Rema rce(s) Supporting Document(s) POC SOURCE [facility] POC TEMPERATURE [facility] 37.0C POC FIO2 60 [facility] POC VENOUS PH 7.40 pH (7.33-7.43) [facility] POC VENOUS PCO2 38.7 MM HG (38.0-50.0) [facility] POC VENOUS PO2 54 MM HG (30-50) H [facility] POC VENOUS SO2 88 % (60-85) H [facility] POC VENOUS BASE DEFICIT 1 MMOL/L (0-2) [facility] POC VENOUS HCO3 24.2 MMOL/L (23.0-27.0) [facility] POC VENOUS TOTAL CO2 25 MMOL/L (24-28) [facility] POC HCT 27 % (41.0-53.0) L [facility] POC SODIUM 139 MMOL/L (136-145) [facility] POC POTASSIUM 5.0 MMOL/L (3.6-5.2) [facility] POC IONIZED CALCIUM 4.8 MG/DL (4.6-5.3) [facility] POC GLU 169 MG/DL (70-99) H [facility] ID Date Data Source [id number] 09/20/2019 04:32:18 PM EDT [facility] Name Value Range Interpretation Code Description Data Rema rce(s) Supporting Document(s) POC ACT 637 s (80-140) H [facility] STA[facility] ID Date Data Source [id number] 09/20/2019 03:53:49 PM EDT [facility] Name Value Range Interpretation Code Description Data Rema rce(s) Supporting Document(s) POC SOURCE [facility] POC TEMPERATURE [facility] 37.0C POC FIO2 60 [facility] POC VENOUS PH 7.38 pH (7.33-7.43) [facility] POC VENOUS PCO2 40.6 MM HG (38.0-50.0) [facility] POC VENOUS PO2 51 MM HG (30-50) H [facility] POC VENOUS SO2 85 % (60-85) [facility] POC VENOUS BASE DEFICIT 1 MMOL/L (0-2) [facility] POC VENOUS HCO3 24.2 MMOL/L (23.0-27.0) [facility] POC VENOUS TOTAL CO2 25 MMOL/L (24-28) [facility] POC HCT 28 % (41.0-53.0) L [facility] POC SODIUM 140 MMOL/L (136-145) [facility] POC POTASSIUM 4.9 MMOL/L (3.6-5.2) [facility] POC IONIZED CALCIUM 4.8 MG/DL (4.6-5.3) [facility] POC GLU 156 MG/DL (70-99) H [facility] ID Date Data Source [id number] 09/20/2019 03:58:31 PM EDT [facility] Name Value Range Interpretation Code Description Data Rema rce(s) Supporting Document(s) POC ACT 455 s (80-140) H [facility] CLIN[facility] STAFF ID Date Data Source [id number] 09/20/2019 03:25:42 PM EDT [facility] Name Value Range Interpretation Code Description Data Rema rce(s) Supporting Document(s) POC SOURCE [facility] POC TEMPERATURE [facility] 37.0C POC FIO2 80 [facility] POC PH 7.40 pH (7.35-7.45) [facility] POC PCO2 41.1 MMHG (32.0-48.0) [facility] POC PO2 446 MMHG (83-108) H [facility] POC SAT O2 100 % (95-99) H [facility] POC BASE EXCESS 0 MMOL/L (0-3) [facility] POC HCO3 25.3 MMOL/L (21.0-29.0) [facility] POC TOTAL CO2 27 MMOL/L (23.0-32.0) [facility] ST[facility] POC HCT 30 % (41.0-53.0) L [facility] POC SODIUM 138 MMOL/L (136-145) [facility] POC POTASSIUM 4.2 MMOL/L (3.6-5.2) [facility] POC IONIZED CALCIUM 4.7 MG/DL (4.6-5.3) [facility] POC GLU 146 MG/DL (70-99) H [facility] ID Date Data Source [id number] 09/20/2019 03:26:52 PM EDT [facility] Name Value Range Interpretation Code Description Data Rema rce(s) Supporting Document(s) POC ACT 582 s (80-140) H [facility] CLIN[facility] STAFF ID Date Data Source [id number] 09/20/2019 03:25:37 PM EDT [facility] Name Value Range Interpretation Code Description Data Rema rce(s) Supporting Document(s) POC SOURCE [facility] POC TEMPERATURE [facility] 37.0C POC FIO2 80 [facility] POC VENOUS PH 7.35 pH (7.33-7.43) [facility] POC VENOUS PCO2 45.0 MM HG (38.0-50.0) [facility] POC VENOUS PO2 64 MM HG (30-50) H [facility] POC VENOUS SO2 91 % (60-85) H [facility] POC VENOUS BASE DEFICIT 1 MMOL/L (0-2) [facility] POC VENOUS HCO3 24.6 MMOL/L (23.0-27.0) [facility] POC VENOUS TOTAL CO2 26 MMOL/L (24-28) [facility] ST[facility] POC HCT 29 % (41.0-53.0) L [facility] POC SODIUM 139 MMOL/L (136-145) [facility] POC POTASSIUM 4.2 MMOL/L (3.6-5.2) [facility] POC IONIZED CALCIUM 4.8 MG/DL (4.6-5.3) [facility] POC GLU 144 MG/DL (70-99) H [facility] ID Date Data Source [id number] 09/20/2019 03:08:32 PM EDT [facility] [place] NT INFORMATIONPatient MRN Name Date of Age Gend*PT [id number] Odin Jones 1935 83 years M SDAPT Location Admission Date/Time Visit ID Attending Provider --- --- --- --- EPI ID CSN Admitting Provider [id number] ---Central Line InsertionPatient location during procedure: ORIndications for central line: hemodynamic monitoring, vasoactive infusions andvascular accessStaffingPerformed by: Kris Fulton, MDApproved by: Kris Fulton, MDCompleted: patient identified, risks and benefits discussed, surgical consentobtained, anesthesia consent obtained, monitors and equipment checked, pre-opevaluation completed, timeout performed, patient was prepped and draped in usualsterile fashion,Central LineCatheter type: IntroducerCVC type: non-tunnelledNeedle gauge: 18 GCatheter size: 9 FrSite prep: chlorhexidine gluconateLaterality: rightLocation: subclavianTechnique: CVC inserted using ultrasound guidanceTechnique comment: 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 Therefore, proceeded to doright subclavian central line placement.Procedure: No arrythmiasAssessmentSecurement method: SuturedPlacement verification: UltrasoundAssessment: tolerated well, no changes to vital signs and catheter flushed [id number] NS Name Value Range Interpretation Code Description Data Rema rce(s) Supporting Document(s) ID Date Data Source [id number] 09/20/2019 02:54:35 PM EDT [facility] Name Value Range Interpretation Code Description Data Rema rce(s) Supporting Document(s) POC SOURCE [facility] POC TEMPERATURE [facility] 37.0C POC FIO2 10 [facility] POC PH 7.34 pH (7.35-7.45) L [facility] POC PCO2 48.9 MMHG (32.0-48.0) H [facility] POC PO2 266 MMHG (83-108) H [facility] POC SAT O2 100 % (95-99) H [facility] POC BASE EXCESS 0 MMOL/L (0-3) [facility] POC HCO3 26.6 MMOL/L (21.0-29.0) [facility] POC TOTAL CO2 28 MMOL/L (23.0-32.0) [facility] STA[facility] POC HCT 33 % (41.0-53.0) L [facility] POC SODIUM 141 MMOL/L (136-145) [facility] POC POTASSIUM 4.0 MMOL/L (3.6-5.2) [facility] POC IONIZED CALCIUM 5.2 MG/DL (4.6-5.3) [facility] POC GLU 120 MG/DL (70-99) H [facility] ID Date Data Source [id number] 09/20/2019 03:00:53 PM EDT [facility] Name Value Range Interpretation Code Description Data Rema rce(s) Supporting Document(s) POC ACT 588 s (80-140) H [facility]FOR[facility] CLINICAL STAFF ID Date Data Source [id number] 09/20/2019 02:33:00 PM EDT [facility] [place] NT INFORMATIONPatient MRN Name Date of Age Gend*PT [id number] Odin Jones 1935 83 years M SDAPT Location Admission Date/Time Visit ID Attending Provider --- --- --- --- EPI ID CSN Admitting Provider [id number] ---Introducer AdditionsPatient location during procedure: ORIndications for introducer addition: Vascular access, Hemodynamic monitoring andVasoactive infusionsStaffingPerformed by: Kris Fulton MDApproved by: Kris Fulton MDCompleted: patient identified, risks and benefits discussed, surgical consentobtained, anesthesia consent obtained, monitors and equipment checked, pre-opevaluation completed, timeout performed, patient was prepped and draped in usualsterile fashion,Introducer AdditionsIntroducer addition: Pulmonary Artery CatheterInsertion depth (cm): 48Introducer placed: At time of introducer additionPA Catheter procedure: Oximetric PA Catheter introduced, Pulmonary arteryidentified and balloon taken back down and PAOP was not obtainedAssessmentSecurement method: securement deviceAssessment: tolerated well, no changes to vital signs and catheter flushed [id number] NS Name Value Range Interpretation Code Description Data Rema rce(s) Supporting Document(s) ID Date Data Source [id number] 09/20/2019 02:31:[address] [facility] NT INFORMATIONPatient MRN Name Date of Age Gend*PT [id number] Odin Jones 1935 83 years M SDAPT Location Admission Date/Time Visit ID Attending Provider --- --- --- --- EPI ID CSN Admitting Provider [id number] ---Arterial Line PlacementPatient location during procedure: ORIndications for arterial line: multiple ABGs and hemodynamic monitoringStaffingPerformed by: Kris Fulton MDApproved by: Kris Fulton MDCompleted: patient identified, risks and benefits discussed, surgical consentobtained, anesthesia consent obtained, monitors and equipment checked, pre-opevaluation completed, timeout performed, patient was prepped and draped in usualsterile fashion,Arterial Line InsertionSite prep: chlorhexidineAnesthesia: local infiltrationLocal anesthetic: lidocaine 1% without epinephrineLaterality: rightLocation: radial arteryNeedle gauge: 20 GTechnique: Seldinger technique used and landmark techniqueNumber of attempts: 1AssessmentSutured: noDressing: dressing appliedPatient tolerance: tolerated well Name Value Range Interpretation Code Description Data [place](s) Supporting Document(s) ID Date Data Source [id number] 09/20/2019 02:31:[address] [facility] NT INFORMATIONPatient MRN Name Date of Age Gend*PT [id number] Odin Jones 1935 83 years M SDAPT Location Admission Date/Time Visit ID Attending Provider --- --- --- --- EPI ID CSN Admitting Provider [id number] ---AirwayPatient location during procedure: ORUrgency: electiveDifficult airway: noAdvanced airway equipment used: noStaffingPerformed by: Soto Lewis LeeAnesthesiologist: Kris Fulton MDIndications and Patient ConditionIndications for airway management: anesthesiaPreoxygenated: yesPatient position: sniffingIn-line stabilization: noMask ventilation: 1 - vent by maskFinal Airway/ApproachesFinal airway type: ETTNumber of attempts at final approach: 1Number of other approaches attempted: 0Final Airway DetailsFinal ETT airway: ETT - singleCuffed: yesTechnique used for successful ETT placement: direct laryngoscopyCricoid pressure: noRSI: noInsertion site: oralBlade type/size: MAC 3.5ETT size: 8.0 mmMeasured from: lipsETT to lips: 22 cmPlacement verified by: chest auscultation and + [id number]: equal breath sounds bilateralGrade view: grade I - full view of glottis Name Value Range Interpretation Code Description Data Rema rce(s) Supporting Document(s) ID Date Data Source [id number] 09/20/2019 01:40:02 PM EDT [facility] Name Value Range Interpretation Code Description Data Rema rce(s) Supporting Document(s) POC SOURCE [facility] POC TEMPERATURE [facility] 37.0C POC FIO2 100 [facility] POC PH 7.44 pH (7.35-7.45) [facility] POC PCO2 39.6 MMHG (32.0-48.0) [facility] POC PO2 557 MMHG (83-108) H [facility] POC SAT O2 100 % (95-99) H [facility] POC BASE EXCESS 3 MMOL/L (0-3) [facility] POC HCO3 26.9 MMOL/L (21.0-29.0) [facility] POC TOTAL CO2 28 MMOL/L (23.0-32.0) [facility] CLIN[facility] STAFF POC HCT 33 % (41.0-53.0) L [facility] POC SODIUM 141 MMOL/L (136-145) [facility] POC POTASSIUM 3.9 MMOL/L (3.6-5.2) [facility] POC IONIZED CALCIUM 4.8 MG/DL (4.6-5.3) [facility] POC GLU 104 MG/DL (70-99) H [facility] ID Date Data Source [id number] 09/20/2019 01:39:22 PM EDT [facility] Name Value Range Interpretation Code Description Data Rema rce(s) Supporting Document(s) POC ACT 125 s (80-140) [facility] CLIN[facility] STAFF ID Date Data Source [id number] 09/20/2019 11:58:00 AM EDT [facility] Name Value Range Interpretation Code Description Data Erma rce(s) Supporting Document(s) POC NOVA GLU 116 mg/dL (70-99) H [facility] [place] [facility]FOR[facility] CLINICAL STAFF ID Date Data Source [id number] 09/20/2019 11:31:39 AM EDT [facility] [place] NT INFORMATIONPatient MRN Name Date of Age Gend*PT [id number] Odin Jones 1935 83 years M SDAPT Location Admission Date/Time Visit ID Attending ProviderPERIOP POOL 09/20/19 0954 --- Elizabeth De La Garza MD([id number]) EPI ID CSN Admitting Provider [id number] Elizabeth De La Garza MD([id number])No changes since last H&PZjosiah De La Garza MD11:31 AM Name Value Range Interpretation Code Description Data Rema rce(s) Supporting Document(s) ID Date Data Source [id number] 09/24/2019 12:42:10 AM EDT [facility] SPEC EXP DATE 09/23/2019TEST ING SITE PERFORMED AT [address] [place] [address] [id number] NUMBER [id number] COMPONENT TYPE LEUKOPOOR RED CELLSUNIT DIVISION 00STATUS OF UNIT REL FROM ALLOCTRANSFUSION STATUS OK TO TRANSFUSECROSSMATCH RESULT COMPATIBLEUNIT NUMBER [id number] COMPONENT TYPE LEUKOPOOR RED CELLSUNIT DIVISION 00STATUS OF UNIT REL FROM ALLOCTRANSFUSION STATUS OK TO TRANSFUSECROSSMATCH RESULT COMPATIBLE Name Value Range Interpretation Code Description Data Rema rce(s) Supporting Document(s) TRANSFUSE RED CELLS [facility] TESTING SITE PERFORMED AT [address] [place] [id number] ID Date Data Source [id number] 09/19/2019 03:27:03 PM EDT [facility] [place]PAT[place] NT INFORMATIONPatient MRN Name Date of Age Gend*PT [id number] Odin Jones 1935 83 years M OPPT Location Admission Date/Time Visit ID Attending Provider --- --- --- Elizabeth De La Garza MD([id number]) EPI ID CSN Admitting Provider [id number] ---Addended by: NARENDRA GREEN on: 09/19/2019 03:27 PM Modules accepted: Orders Name Value Range Interpretation Code Description Data Rema rce(s) Supporting Document(s) ID Date Data Source [id number] 09/17/2019 10:35:00 AM EDT [facility] Name Value Range Interpretation Code Description Data Rema rce(s) Supporting Document(s) SARS coronavirus 2 RNA [facility] This lab was ordered by [facility] and reported by [facility]. ID Date Data Source [id number] 09/18/2019 11:07:47 PM EDT [facility] Name Value Range Interpretation Code Description Data Rema rce(s) Supporting Document(s) SARS-COV-2 VIET [facility] Not DetectedReference range: Not Detecte d This test was developed and its performance characteristics determined by [facility]. This test has not been FDA cleared or approved. This test has been authorized by FDA under an Emergency Use Authorization (EUA). This test is only authorized for the duration of time the declaration that circumstances exist justifying the authorization of the emergency use of in vitro diagnostic tests for detection of SARS-CoV-2 virus and/or diagnosis of COVID-19 infection under section 564(b)(1) of the Act, 21 U.S.C. 360bbb-3(b)(1), unless the authorization is terminated or revoked sooner. When diagnostic testing is negative, the possibility of a false negative result should be considered in the context of a patient's recent exposures and the presence of clinical signs and symptoms consistent with COVID-19. An individual without symptoms of COVID-19 and who is not shedding SARS-CoV-2 virus would expect to have a negative (not detected) result in this assay. Performed At: [facility] [address] [id number] Cristi Ulloa MD Ph:[phone] ID Date Data Source [id number] 09/17/2019 10:32:00 AM EDT [facility] CHEST ROUTINE PA and LATCLINICAL HISTORY: Pretesting. Coronary artery bypass grafts with endoscopic vein harvest, shortness of breath, coronary artery disease.COMPARISON: Chest two- views 09/14/2018TECHNIQUE: Two views of the chest are provided.FINDINGS: Heart size normal. Pacemaker unchanged in position. There is no pleural effusion. There is no lung consolidation. Degenerative changes are seen in the spine.IMPRESSION: No well-defined lung consolidation. There is hyperinflation. The pacemaker is in good position. Pneumothorax is not seen. No new lung consolidation. Significant degenerative changes again seen in the spine.Dictated by: DIANNA FAUST M.D. on 09/17/2019 Transcribed by: parish on <<TranscriptionDateTime1>>CDS G code: ,CDS Modifier: ,cc: Name Value Range Interpretation Code Description Data Rema rce(s) Supporting Document(s) ID Date Data Source [id number] 09/17/2019 09:38:00 AM EDT [facility] ULTR ASOUND CAROTID DUPLEXCLINICAL HISTORY: Pretesting. Coronary artery bypass grafts with endoscopic vein harvest, shortness of breath, coronary artery disease.COMPARISON: None available.FINDINGS: RIGHT:CCA PS: 52 cm/secICA PS: 87 cm/secICA ED: 19 cm/secECA PS: 74 cm/secVertebral: 37 cm/sec, antegradeRatio: ICA/CCA: 1.7ICA Stenosis: Less than 50%Comments: Small amount of plaque within the right carotid bulb extending into the proximal internal carotid artery.LEFT:CCA PS: 63 cm/secICA PS: 92 cm/secICA ED: 25 cm/secECA PS: 89 cm/secVertebral: 54 c m/sec, antegradeRatio: ICA/CCA: 1.5ICA Stenosis: Less than 50%Comments: Small amount of plaque within the left carotid bulb extending into the proximal internal carotid artery.IMPRESSION: Less than 50% stenosis within each proximal internal carotid artery with small amounts of plaque bilaterally.Carotid stenosis measurements were performed using the NASCET method.Dictated by: DIANNA FAUST M.D. on 09/17/2019 Transcribed by: PS on <<TranscriptionDateTime1>>CDS G code: ,CDS Modifier: ,cc: Name Value Range Interpretation Code Description Data Rema rce(s) Supporting Document(s) ID Date Data Source [id number] 09/17/2019 09:38:00 AM EDT [facility] US V ASCULAR VENOUS BL SAPHENOUS VEIN MAPPINGCLINICAL HISTORY: Pretesting. Coronary artery bypass grafts with endoscopic vein harvest, shortness of breath, coronary artery disease.COMPARISON: None available.FINDINGS: GREAT SAPHENOUS VEIN RLE (mm) LLE (mm)Saphenofemoral Junction 6.8 5.6Proximal Thigh 4.7 3.3Mid Thigh 4.4 2.6 two branchesKnee 3.9 branch 4Mid Calf 2.9 too tinyAnkle 3.8 too tinyIMPRESSION: Saphenous vein measurements as above. Two branches left mid thigh. Single branch right knee. Greater saphenous vein in the left leg at the mid calf and ankle are too small to measure.Dictated by: DIANNA FAUST M.D. on 09/17/2019 Transcribed by: PS on <<TranscriptionDateTime1>>CDS G code: ,CDS Modifier: ,cc: Name Value Range Interpretation Code Description Data Rema rce(s) Supporting Document(s) ID Date Data Source [id number] 09/17/2019 09:14:12 AM EDT [facility] Name Value Range Interpretation Code Description Data Rema rce(s) Supporting Document(s) POC TEMPERATURE [facility] POC SOURCE [facility] PUNCTURE SITE [facility] O2 THERAPY [facility] CLEMENTINA TEST [facility] POC PH 7.40 pH (7.35-7.45) [facility] POC PCO2 38.5 MMHG (32.0-48.0) [facility] POC PO2 82 MMHG (83-108) L [facility] POC SAT O2 96 % (95-99) [facility] POC BASE DEFICIT 1 MMOL/L (0-2) [facility] POC HCO3 23.9 MMOL/L (21.0-29.0) [facility] POC TOTAL CO2 25 MMOL/L (23.0-32.0) [facility] PERFORMED BY [facility] CLINICAL STAFF ID Date Data Source [id number] 09/18/2019 11:15:13 AM EDT [facility] SPECIMEN DESCRIPTION MIDSTREAM UR INE,CLEAN CATCHCULTURE RESULTS NO GROWTHREPORT STATUS FINAL 09/18/2019 Name Value Range Interpretation Code Description Data Rema rce(s) Supporting Document(s) ID Date Data Source [id number] 09/17/2019 02:45:51 PM EDT [facility] Name Value Range Interpretation Code Description Data Rema rce(s) Supporting Document(s) COLOR [facility] APPEARANCE [facility] SPEC GRAV URINE 1.016 (1.003-1.030) [facility] PH URINE 5.5 (5.0-7.5) [facility] LEUK ESTERASE (NEG) [facility] NITRITE URINE (NEG) [facility] PROTEIN URINE (NEG) [facility] GLUCOSE URINE (NEG) [facility] KETONE URINE (NEG) [facility] UROBILINOGEN 1.0 mg/dL (0-1.0) [facility] [place] BILIRUBIN URINE (NEG) [facility] BLOOD/HGB URINE (NEG) [facility] ID Date Data Source [id number] 09/17/2019 08:52:19 AM EDT [facility] Name Value Range Interpretation Code Description Data Rema rce(s) Supporting Document(s) EKG [facility] [id number] jb2 [file] [id number] ID Date Data Source [id number] 09/17/2019 01:40:02 PM EDT [facility] SPEC EXP DATE 09/21/2019PATI ENT ABO/Rh O POSITIVEANTIBODY SCREEN NEGATIVETESTING SITE PERFORMED AT [address] [place] [address] Name Value Range Interpretation Code Description Data Rema rce(s) Supporting Document(s) TYPE AND SCREEN [facility] ID Date Data Source [id number] 09/17/2019 12:57:12 PM EDT [facility] Name Value Range Interpretation Code Description Data Rema rce(s) Supporting Document(s) ROOM TEMP AB SCREEN [facility] ROOM TEMP AB SCREEN NEGATIVE ID Date Data Source [id number] 09/17/2019 08:32:22 AM EDT [facility] [place]PAT[place] NT INFORMATIONPatient MRN Name Date of Age Gend*PT [id number] Odin Jones 1935 83 years M OPPT Location Admission Date/Time Visit ID Attending Provider --- --- --- Elizabeth De La Garza MD([id number]) EPI ID CSN Admitting Provider [id number] ---HISTORY PHYSICALName: Odin Jones : 1935 Sex: male Care Provider: PCP PROVIDER REQUESTEDAttending Physician: Dr. Elizabeth De La Garza.Informant: The patient who is reliable.Chief Complaint: Shortness of breath.HISTORY OF PRESENT ILLNESS: 83 year old white male who presents with a chiefcomplaint of exertional shortness of breath. He has noted the dyspnea over thispast year. He denies chest pain, chest pressure or chest heaviness. There hasbeen no recent MN or congestive failure. He denies leg edema. Cardiaccatheterization dated 08/23/2019 showed severe left main disease and 2-vessel CAD(LAD and CFX).The patient met with Dr. De La Garza, options were discussed and he has elected toundergo coronary artery bypass graft (CABG), with endoscopic vessel procurementon 09/20/2019.PAST MEDICAL HISTORY:Past Medical History:Diagnosis Date Abnormal EKG Atrial fibrillation Atrial flutter BPH (benign prostatic hyperplasia) Cancer bladder Cardiomyopathy ischemic Cholelithiasis Coronary artery disease Kalyn Blair MD Disorder of mitral and aortic valves Diverticulosis Glaucoma Hearing loss bilateral hearing aids Hypertension jail current use of anticoagulant Eliquis Myocardial infarction VF arrest PVC's (premature ventricular contractions) SSS (sick sinus syndrome) s/p PPM Wears partial denturesPAST SURGICAL HISTORY:Past Surgical History:Procedure Laterality Date CARDIAC CATHETERIZATION N/A 08/23/2019 Procedure: CATHETERIZATION, HEART, LEFT; Surgeon: Lorenzo Khan MD;Laterality: N/A; CATARACT EXTRACTIONS CORONARY STENT PLACEMENT HERNIA REPAIR INSERT / REPLACE / REMOVE PACEMAKER insertion TONSILLECTOMY TRANSURETHRAL RESECTION OF PROSTATEALLERGIES:AllergiesAllergen Reactions Bee Venom Hives Sulfa Antibiotics HivesMEDICATIONS:Prior to Admission medicationsMedication Sig Start Date End Date Taking? Authorizing ProviderApixaban (ELIQUIS) 5 MG TABS tablet Take 5 mg by mouth 2 (two) times a dayHistorical Provider, Mylesspirin 81 MG chewable tablet Chew 81 mg daily Historical Provider, Mylestorvastatin (LIPITOR) 20 MG tablet Take 20 mg by mouth daily HistoricalProvider, MDcaptopril (CAPOTEN) 25 MG tablet Take 25 mg by mouth 2 (two) times a dayHistorical Provider, HANNAHAILChu KARAN (THERAGRAN) per tablet Take 1 tablet by mouth daily HistoricalProvider, HANNAHORZOLAMIDE HCL-TIMOLOL MAL OP Administer 1 drop to both eyes 2 (two) times aday Historical Provider, fluticasone (FLONASE) 50 MCG/ACT nasal spray 1 spray into each nostril dailyHistorical Provider, nitroglycerin (NITROSTAT) 0.[address] 0.4 mg under the tongue every 5(five) minutes as needed for chest pain Historical Provider, tamsulosin (FLOMAX) 0.4 MG CAPS Take 0.4 mg by mouth daily HistoricalProvider, MD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Socioeconomic History Marital status: Spouse name: Not on file Number of children: Not on file Years of education: Not on file Highest education level: Not on file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 History Not on fileSocial Needs Financial resource strain: Not on file Food insecurity: Worry: Not on file Inability: Not on file Transportation needs: Medical: Not on file Non-medical: Not on fileTobacco Use Smoking status: Former Smoker Smokeless tobacco: Never UsedSubstance and Sexual Activity Alcohol use: Yes Comment: rare Drug use: Never Sexual activity: Not on fileLifestyle Physical activity: Days per week: Not on file Minutes per session: Not on file Stress: Not on fileRelationships Social connections: Talks on phone: Not on file Gets together: Not on file Attends jehovah's witness service: Not on file Active member of club or organization: Not on file Attends meetings of clubs or organizations: Not on file Relationship status: Not on file Intimate partner violence: Fear of current or ex partner: Not on file Emotionally abused: Not on file Physically abused: Not on file Forced sexual activity: Not on fileOther Topics Concern Not on file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 Narrative Not on fileHistory reviewed. No pertinent family history.REVIEW OF SYSTEMS:Constitution: Weight stable. Denies fatigue, fever or chills.HEENT: Denies any blurred vision, double vision, dizziness, tinnitus, dysphagiaor headaches.Respiratory: Denies cough, yellow sputum production or wheezing.Cardiovascular: Denies any chest pain, pressure or tightness. Denies nocturnaldyspnea or orthopnea.Muscle/Skeletal System: Denies any muscle ache, joint ache or weakness.Neurologic: Denies tremors or syncope.GI: Denies any naus ea, vomiting, diarrhea, constipation or melena.: Denies any dysuria, hematuria or nocturia.Endocrine: Denies polyuria, polydipsia or polyphagia. Denies any heat or coldintolerance, fatigue or night sweats.Hematology: Denies any bleeding or bruising tendencies.Anesthesia complications: Denied.Steroid use: Denied.Code Status: Full code.HCP: None.PHYSICAL EXAM:General: He is an 83 year old, pleasant white male, in no acute distress at timeof examination. Vitals on arrival to the office were: BP 118/72 (BP Location:Left upper arm, Patient Position: Sitting) | Pulse 72 | Ht 1.854 m (6' 1") |Wt (!) 101.2 kg (223 lb) | SpO2 96% | BMI 29.42 kg/m Body mass index is29.42 kg/m .Skin is pink, warm and dry.HEENT: Head is normocephalic, atraumatic. [place] conjunctivae. Anicteric sclerae.Pupils are equal, round, reactive to light and accommodation. Extraocularmovements are intact. Ears: Without drainage or lesion. Mouth: Dentition is ingood repair. He has a class II airway. Neck is supple midline without cervicaladenopathy. There is no tonsillo pharyngeal congestion. Mucous membranes aremoist. There are no oral lesions. No jugular distention. No carotid bruits. Nothyromegaly.CHEST/BREAST: A/P less than transverse.LUNGS: Clear to auscultation. No wheezes, rhonchi or crackles.HEART: Rate rhythm regular. S1, S2. No murmur, rub or gallop. Pacemaker leftinfra clavicular area, site well healed.ABDOMEN: Bowel sounds positive. Soft, non tender. No rebound tenderness. Nohepatosplenomegaly. Negative CVAT.GENITAL/RECTAL: Deferred.NEUROLOGICALLY: Cranial nerves II through XII are grossly intact.VASCULAR: Pulses are symmetric. No edema.IMPRESSION and PLAN:Primary Diagnosis: Coronary artery disease of ruby artery of ruby heart withstable angina pectoris. Surgery as per Dr. De La Garza.Secondary Diagnosis and Plan:1. Hypertension: Continuation of prior to admission anti- hypertensivemedications unless precluded by clinical status.2. Atrial fibrillation: Paroxysmal. Resume prior to admission anticoagulationwhen deemed appropriate by surgeon.3. BPH: Monitor for post operative urinary retention, using bedside bladderscanning if needed.4. GI prophylaxis: Per surgeon.5. DVT prophylaxis: Early ambulation. Pneumatic compression device. SubcutaneousHeparin or LMW Heparin if clinically indicated.Based on above medical co morbidities, length of stay may be prolonged greaterthan previously anticipated.ALLERGIES:Bee venom and Sulfa antibiotics09/17/2019 8:32 Chip Wilson MD Name Value Range Interpretation Code Description Data Rema rce(s) Supporting Document(s) ID Date Data Source [id number] 09/17/2019 08:15:00 AM EDT [facility] Name Value Range Interpretation Code Description Data Rema rce(s) Supporting Document(s) Hemoglobin A1c/Hemoglobin.total in Blood 5.7 [facility] ([facility]) ID Date Data Source [id number] 09/18/2019 12:28:07 PM EDT [facility] Name Value Range Interpretation Code Description Data Rema rce(s) Supporting Document(s) SPECIMEN DESCRIPTION [facility] STAPH SCREEN RESULTS (ONEGSA) A [facility] COMMENT [facility] GENE TO DETECT STAPH AUREUS. (2) RT-P CR WAS PERFORMED FOR THE mecA AND SCC[facility] GENES TO DETECT METHICILLIN RESISTANCE IN STAPH AUREUS. ID Date Data Source [id number] 09/17/2019 01:19:32 PM EDT [facility] Name Value Range Interpretation Code Description Data Rema rce(s) Supporting Document(s) NT PRO BNP 608 pg/mL (0-450) H [facility] ID Date Data Source [id number] 09/17/2019 01:19:32 PM EDT [facility] Name Value Range Interpretation Code Description Data Rema rce(s) Supporting Document(s) SODIUM 142 mmol/L (136-145) [facility] POTASSIUM 4.8 mmol/L (3.6-5.2) [facility] CHLORIDE 106 mmol/L (100-108) [facility] CO2 26 mmol/L (22-31) [facility] ANION GAP 10 mmol/L (7-16) [facility] UREA NITROGEN 23 mg/dL (7-24) [facility] CREATININE 1.20 mg/dL (0.80-1.30) [facility] BUN/CREAT RATIO 19.2 RATIO (10.0-20.0) [facility] GLUCOSE 105 mg/dL (70-99) H [facility] CALCIUM 9.6 mg/dL (8.4-10.2) [facility] TOTAL PROTEIN 7.2 g/dL (6.4-8.2) [facility] ALBUMIN 3.8 g/dL (3.2-4.5) [facility] GLOBULIN 3.4 g/dL (2.7-4.3) [facility] ALB/GLOB RATIO 1.1 RATIO [facility] ALKALINE PHOSPHATASE 98 U/L (45-117) [facility] BILIRUBIN,TOTAL 1.1 mg/dL (0.0-1.0) H [facility] [place] [facility] PLEASE NOTE:Total bilirubin results may be falselyelevated in patients taking Eltrombopag. AST (SGOT) 16 U/L (11-39) [facility] ALT (SGPT) 24 U/L (12-78) [facility] GFR 58 ml/min/1.73m2 (>59) L [facility] GFR ( AMER) >60 ml/min/1.73m2 (>59) [facility] GFR INTERPRETATION [facility] --NORMAL KIDNEY FUNCTION OR MILD DISEASE - GFR >OR= 60CHRONIC KIDNEY DISEASE - GFR 15 - 59RENAL FAILURE - GFR <15 Est. GFR calculation based on the MDRDstudy equation, which assumes a steadystate for creatinine. Est. GFR should notbe used for medication dosing. ID Date Data Source [id number] 09/17/2019 12:28:25 PM EDT [facility] Name Value Range Interpretation Code Description Data Rema rce(s) Supporting Document(s) HEMOGLOBIN A1C @ 5.7 % (4.0-6.0) [facility] Performed using Code71 y.Care must be taken when interpreting [id number] in patients with a hemoglobin variantor decreased erythrocyte lifespan. Values 5.7 - 6.4% suggest prediabetes.Values >=6.5% are diagnostic for diabetes.REFERENCE: DIABETES CARE 2018: 41(S13-S27). EST AVERAGE GLUCOSE 117 mg/dL [facility] ID Date Data Source [id number] 09/17/2019 11:57:32 AM EDT [facility] Name Value Range Interpretation Code Description Data Rema rce(s) Supporting Document(s) APTT 27.5 s (22.0-34.3) [facility] ID Date Data Source [id number] 09/17/2019 11:57:32 AM EDT [facility] Name Value Range Interpretation Code Description Data Rema rce(s) Supporting Document(s) PT 10.9 s (9.2-11.9) [facility] INR 1.05 [facility] SUGGESTED THERAPEUTIC RANGES USING INR F ORSTABILIZED ANTICOAGULATED PATIENTS:STANDARD DOSE THERAPY INR 2.0-3.0 DVT, PE, PREVENT DVT OR EMBOLISMHIGH DOSE THERAPY INR 2.5-3.5 PREVENT EMBOLISM FROM MECHANICAL HEART VALVE ID Date Data Source [id number] 09/17/2019 11:31:37 AM EDT [facility] Name Value Range Interpretation Code Description Data Rema rce(s) Supporting Document(s) WBC 5.1 10*3/uL (4.1-11.0) [facility] [place] [facility] [place] RBC 5.37 10*6/uL (4.60-6.10) [facility] HGB 11.9 g/dL (13.5-18.0) L [facility] HCT 37.3 % (41.0-53.0) L [facility] MCV 69.4 fL (80.0-95.0) L [facility] MCH 22.1 pg (27.0-32.0) L [facility] MCHC 31.9 g/dL (32.0-36.0) L [facility] RDW 16.0 % (10.5-14.5) H [facility] PLT 191 10*3/uL (150-450) [facility] MPV 9.4 fL (7.1-10.7) [facility] NEUT % 75.6 % (35.0-75.0) H [facility] LYMPH % 14.1 % (16.0-52.0) L [facility] MONO % 7.1 % (0.0-8.0) [facility] EOS % 2.7 % (0.0-5.0) [facility] BASO % 0.5 % (0.0-4.0) [facility] NEUT # 3.9 10*3/uL (1.8-7.7) [facility] LYMPH # 0.7 10*3/uL (1.2-4.8) L [facility] MONO # 0.4 10*3/uL (0.0-0.8) [facility] Eosinophils [#/volume] in Blood by Automated count 0.1 10*3/uL (0.0-0 .5) [facility] BASO # 0.0 10*3/uL (0.0-0.2) [facility] ID Date Data Source [id number] 08/24/2019 09:00:22 AM EDT [facility] Name Value Range Interpretation Code Description Data Rema rce(s) Supporting Document(s) EKG [facility] [id number] jb2 [file] [id number] ID Date Data Source [id number] 08/24/2019 12:29:19 AM EDT [facility] [place]PAT[place] NT INFORMATIONPatient MRN Name Date of Age Gend*PT [id number] Odin Jones 1935 83 years M HOPPT Location Admission Date/Time Visit ID Attending Provider08/23/19 1319 --- --- EPI ID CSN Admitting Provider [id number] Lorenzo Khan MD([id number])Cardiothoracic Surgery ConsultOdin SaeedRN: [id number] for consult: CADAssessment/Plan: After I reviewed detailed history and exam, I believe the patient needscoronary artery bypass. I felt the surgical risk should be less than 1% withcomplication includes, but not limited to post-op bleeding, irregular heartrhythm, wound infection, organ failures such as kidney failure, respiratoryfailure and stroke, etc. Patient understand the benefit vs risks. He agreeswith the plan for coronary artery bypassSubjective:HPI: This is a 83 years old male patient with symptoms of chest pain andshortness of breath after exertion. Symptoms usually resolves with resting ornitro. Patient did not have history of myocardial infarction. Patient wastreated medically, but still symptomatic. Cardiac cath shows severe three vesseldiseasePast Medical History:The following portions of the patient's history were reviewed and updated asappropriate: allergies, current medications, past family history, past medicalhistory, past social history, past surgical history and problem list.Past Medical History:Diagnosis Date Atrial fibrillation BPH (benign prostatic hyperplasia) Cancer bladder Cardiomyopathy Coronary artery disease Disorder of mitral and aortic valves History of heart artery stent HypertensionPast Surgical History:Procedure Laterality Date cataracts HERNIA REPAIR TONSILLECTOMY TRANSURETHRAL RESECTION OF PROSTATENo family history on file.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Socioeconomic History Marital status: Spouse name: None Number of children: None Years of education: None Highest education level: None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 History NoneSocial Needs Financial resource strain: None Food insecurity: Worry: None Inability: None Transportation needs: Medical: None Non-medical: NoneTobacco Use Smoking status: Former Smoker Smokeless tobacco: Never UsedSubstance and Sexual Activity Alcohol use: Yes Comment: rare Drug use: Never Sexual activity: NoneLifestyle Physical activity: Days per week: None Minutes per session: None Stress: NoneRelationships Social connections: Talks on phone: None Gets together: None Attends jehovah's witness service: None Active member of club or organization: None Attends meetings of clubs or organizations: None Relationship status: None Intimate partner violence: Fear of current or ex partner: None Emotionally abused: None Physically abused: None Forced sexual activity: NoneOther Topics Concern None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 Narrative NoneNo medications prior to admission.AllergiesAllergen Reactions Bee Venom Hives Sulfa Antibiotics HivesReview of Systems:Review of SystemsConstitutional: Positive for activity change and fatigue.HENT: Negative.Eyes: Negative.Respiratory: Positive for chest tightness and shortness of breath.Cardiovascular: Positive for chest pain.Gastrointestinal: Negative.Endocrine: Negative.Genitourinary: Negative.Musculoskeletal: Negative.Skin: Negative.Allergic/Immunologic: Negative.Neurological: Negative.Hematological: Negative.Objective:Body mass index is 29.73 kg/m .Temp: [98 F-98.4 F] 98.3 FHeart Rate: [55-62] 59Resp: [16] 16BP: (113-158)/(59-87) 144/74Physical ExamConstitutional: He is oriented to person, place, and time. He appearswell- developed and well-nourished.HENT:Head: Normocephalic and atraumatic.Right Ear: External ear normal.Left Ear: External ear normal.Eyes: Pupils are equal, round, and reactive to light. Conjunctivae and EOM arenormal. Right eye exhibits no discharge. Left eye exhibits no discharge.Neck: Normal range of motion. Neck supple. No JVD present. No tracheal deviationpresent.Cardiovascular: Normal rate, regular rhythm, normal heart sounds and intactdistal pulses. Exam reveals no friction rub.No murmur heard.Pulmonary/Chest: Effort normal and breath sounds normal. No stridor. Norespiratory distress. He has no wheezes. He has no rales.Abdominal: Soft. Bowel sounds are normal. He exhibits no distension and no mass.Musculoskeletal: Normal range of motion. He exhibits no edema, tenderness ordeformity.Lymphadenopathy: He has no cervical adenopathy.Neurological: He is alert and oriented to person, place, and time. No cranialnerve deficit. Coordination normal.Skin: Skin is warm and dry. No rash noted. No erythema. No pallor. Cardiac Catheterization: severe three vessel disease Name Value Range Interpretation Code Description Data Rema rce(s) Supporting Document(s) ID Date Data Source [id number] 08/23/2019 03:32:26 PM EDT [facility] Name Value Range Interpretation Code Description Data Rema rce(s) Supporting Document(s) &PDF [facility] [id number]/[id number] vci [file] [id number] ID Date Data Source [id number] 08/23/2019 03:07:[address] [facility] NT INFORMATIONPatient MRN Name Date of Age Gend*PT [id number] Odin Jones 1935 83 years M HOPPT Location Admission Date/Time Visit ID Attending [id number] 08/23/19 1319 --- Lorenzo Khan MD([id number]) EPI ID CSN Admitting Provider [id number] Lorenzo Khan MD([id number])Updated H&PPlease see the scanned/dictated outpatient note.I have reviewed the note, clinical history and physical exam findings. Therehave been no significant changes.Plan as outlined in the outpatient note.Risk/benifit/alternative of cardiac catheterization was discussed withpatient/family. Risks included, but not limited to; [place], CVA, , renalimpairment, vascular complication, and need for emergency surgery were discussedand accepted by patient.Lorenzo Khan MD, [facility] Civil Structural Designer Name Value Range Interpretation Code Description Data Rema rce(s) Supporting Document(s) ID Date Data Source [id number] 08/20/2019 09:45:00 AM EDT [facility] ([facility]) Name Value Range Interpretation Code Description Data Rema rce(s) Supporting Document(s) Laboratory test finding (navigational concept) Laboratory test result [facility] ([facility]) Testing was performed using the stephanie(R) SARS-CoV-2 test. This test was developed and its performance characteristics determined by [facility]. This test has not been FDA cleared or approved. This test has been authorized by FDA under an Emergency Use Authorization (EUA). This test is only authorized for the duration of time the declaration that circumstances exist justifying the authorization of the emergency use of in vitro diagnostic tests for detection of SARS-CoV-2 virus and/or diagnosis of COVID-19 infection under section 564(b)(1) of the Act, 21 U.S.C. 360bbb-3(b)(1), unless the authorization is terminated or revoked sooner. When diagnostic testing is negative, the possibility of a false negative result should be considered in the context of a patient's recent exposures and the presence of clinical signs and symptoms consistent with COVID-19. An individual without symptoms of COVID-19 and who is not shedding SARS-CoV-2 virus would expect to have a negative (not detected) result in this assay. Performed at: - [facility] [address] [id number] [employer] [place] Analyst: Liane Colin MD, Phone: [phone] Not Detected ID Date Data Source [id number] 08/20/2019 09:45:00 AM EDT [facility] Name Value Range Interpretation Code Description Data Rema rce(s) Supporting Document(s) SARS CORONAVIRUS 2 RNA [facility] This lab was ordered by [facility] and reported by [facility]. ID Date Data Source [id number] 08/13/2019 10:31:00 AM EDT [facility] ([facility]) Name Value Range Interpretation Code Description Data Rema rce(s) Supporting Document(s) Glucose, Fasting 93 mg/dL 70-100 Normal (applies to non-numeric results) [facility] ([facility]) Glomerular Filtration Rate Laboratory test result Normal (applies to non- numeric results) [facility] ([facility]) <content>Units are mL/min/1.73 m2</content>
<content></content>
<content>Chronic Kidney Disease Staging per NKF:</content>
<content></content>
<content>Stage I & II GFR >=60 Normal to Mildly Decreased</content>
<content>Stage III GFR 30- 59 Moderately Decreased</content>
<content>Stage IV GFR 15-29 Severely Decreased</content>
<content>Stage V GFR <15 Very Little GFR Left</content>
<content>ESRD GFR <15 on RESERVATIONS CLERK</content>
<content></content> Creatinine For GFR 1.15 mg/dL 0.70-1.30 Normal (applies to non -numeric results) [facility] ([facility]) Blood Urea Nitrogen 23 mg/dL 7-18 Above high normal [facility] ([facility]) Sodium Level 139 meq/L 136-145 Normal (applies to non-numeric res ults) [facility] ([facility]) Potassium Serum 4.9 meq/L 3.5-5.1 Normal (applies to non-numeric results) [facility] ([facility]) Chloride Level 107 meq/L 98-107 Normal (applies to non-numeric r esults) [facility] ([facility]) Calcium Level 9.7 mg/dL 8.8-10.2 Normal (applies to non-numeric re sults) [facility] ([facility]) Anion Gap 5 meq/L 8-16 Below low normal [facility] ( [facility]) Carbon Dioxide Level 27 meq/L 21-32 Normal (applies to non-num estela results) [facility] ([facility]) ID Date Data Source [id number] 08/13/2019 10:31:00 AM EDT [facility] ([facility]) Name Value Range Interpretation Code Description Data Rema rce(s) Supporting Document(s) Red Blood Count 5.76 10 4.30-6.10 Normal (applies to non-numeric results) [facility] ([facility]) Hemoglobin 12.9 g/dL 13.5-17.5 Below low normal [facility] ( [facility]) White Blood Count 5.8 10 4.0-10.0 Normal (applies to non-numeri c results) [facility] ([facility]) Hematocrit 40.8 % 42.0-52.0 Below low normal [facility] ( [facility]) Mean Corpuscular Volume 70.8 fl 80.0-96.0 Below low normal [facility] ([facility]) Mean Corpuscular Hemoglobin 22.4 pg 27.0-33.0 Below low normal [facility] ([facility]) Mean Corpuscular HGB Conc 31.6 g/dL 32.0-36.5 Below low normal [facility] ([facility]) Red Cell Distribution Width 18.4 % 11.5-14.5 Above high normal [facility] ([facility]) Platelet Count, Automated 197 10 150-450 Normal (applies to non-numeric results) [facility] ([facility] [place] % 8.0 % 0.0-5.0 Above high normal [facility] ([facility]) Lymph % 16.5 % 24.0-44.0 Below low normal [facility] ( [facility]) Neutrophils % 71.7 % 36.0-66.0 Above high normal [facility] NT ([facility]) Eos % 2.6 % 0.0-3.0 Normal (applies to non-numeric resul ts) [facility] ([facility]) Baso % 0.7 % 0.0-1.0 Normal (applies to non-numeric resul ts) [facility] ([facility]) Nucleated Red Blood Cell % 0.0 % 0-0 Normal (applies to n on-numeric results) [facility] ([facility]) Neutrophils # 4.1 10 1.5-8.5 Normal (applies to non-numeric re sults) [facility] ([facility]) Immature Granulocyte % 0.5 % 0-3.0 Normal (applies to non-n umeric results) [facility] ([facility]) Baso # 0.0 10 0.0-0.2 Normal (applies to non-numeric resul ts) [facility] ([facility]) [place] # 0.5 10 0.0-0.8 Normal (applies to non-numeric resul ts) [facility] ([facility]) Eos # 0.2 10 0.0-0.5 Normal (applies to non-numeric resul ts) [facility] ([facility]) Lymph # 1.0 10 1.5-5.0 Below low normal [facility] ( [facility]) ID Date Data Source [id number] 08/13/2019 07:54:00 AM EDT [facility] ([facility]) Name Value Range Interpretation Code Description Data Rema rce(s) Supporting Document(s) Calcium [Mass/volume] in Serum or Plasma 9.7 [facility] ([facility]) Chloride [Moles/volume] in Serum or Plasma 107 [facility] ([facility]) Sodium 139 [facility] ([facility]) Carbon dioxide, total [Moles/volume] in Serum or Plasma 27 [facility] ([facility]) Glucose 93 70-100 [facility] ([facility]) Blood Urea Nitrogen 23 5-21 [facility] ([facility]) Potassium [Moles/volume] in Serum or Plasma 4.9 [facility] ([facility]) Creatinine 1.15 0.6-1.5 [facility] ([facility]) Glomerular filtration rate/1.73 sq M.pre dicted [Volume Rate/Area] in Serum or Plasma by Creatinine-based formula (MDRD) Laboratory test result [facility] ([facility]) ID Date Data Source [id number] 08/13/2019 07:54:00 AM EDT [facility] Name Value Range Interpretation Code Description Data Rema rce(s) Supporting Document(s) White Blood Count 58.8 4.3-10.9 [facility] Red Blood Count 5.76 4.70-6.20 [facility] ([facility] Platelets 197 130-400 [facility] Hemoglobin 12.9 13.0-17.0 [facility] ([facility]) Hematocrit 40.8 39.0-50.0 [facility] ([facility]) ID Date Data Source [id number] 07/09/2019 07:47:00 AM EDT [facility] Name Value Range Interpretation Code Description Data Rema rce(s) Supporting Document(s) White Blood Count 6.0 10 4.0-10.0 [facility] [place] Hemoglobin 13.2 g/dL 13.5-17.5 [facility] ([facility]) Red Blood Count 5.83 10 4.30-6.10 [facility] ([facility]) Hematocrit 41.1 % 42.0-52.0 [facility] ([facility]) Mean Corpuscular Hemoglobin 22.6 pg 27.0-33.0 [facility] ([facility]) Mean Corpuscular HGB Conc 32.1 g/dL 32.0-36.5 [facility] ([facility]) Mean Corpuscular Volume 70.5 fl 80.0-96.0 M [facility] ([facility]) Platelet Count, Automated 176 10 150-450 [facility] ([facility]) Red Cell Distribution Width 19.4 % 11.5-14.5 [facility] ([facility]) Nucleated Red Blood Cell % 0.0 % 0-0 [facility] ([facility]) ID Date Data Source [id number] 07/09/2019 07:47:00 AM EDT [facility] ([facility] Name Value Range Interpretation Code Description Data Rmea rce(s) Supporting Document(s) Triglycerides Level 59 mg/dL [facility] ([facility]) Cholesterol Level 87 mg/dL [facility] ([facility] LDL Cholesterol 25 mg/dL [facility] ([facility] HDL Cholesterol 50 mg/dL [facility] ([facility]) Non-HDL-C 37 mg/dL [facility] [place] Cholesterol Risk Ratio 1.740 [facility] ([facility]) ID Date Data Source [id number] 07/09/2019 07:47:00 AM EDT [facility] ([facility]) Name Value Range Interpretation Code Description Data Rema rce(s) Supporting Document(s) Magnesium [Mass/volume] in Serum or Plasma 2.2 mg/dL 1.8-2.4 [facility] ([facility]) ID Date Data Source [id number] 07/09/2019 07:47:00 AM EDT [facility] ([facility]) Name Value Range Interpretation Code Description Data Rema rce(s) Supporting Document(s) Blood Urea Nitrogen 21 mg/dL 7-18 [facility] ([facility]) Glucose, Fasting 107 mg/dL 70-100 [facility] ([facility]) Sodium Level 142 meq/L 136-145 [facility] ([facility]) Glomerular Filtration Rate 58.5 [facility] ([facility]) <content>Units are mL/min/1.73 m2</content>
<content></content>
<content>Chronic Kidney Disease Staging per NKF:</content>
<content></content>
<content>Stage I & II GFR >=60 Normal to Mildly Decreased</content>
<content>Stage III GFR 30- 59 Moderately Decreased</content>
<content>Stage IV GFR 15-29 Severely Decreased</content>
<content>Stage V GFR <15 Very Little GFR Left</content>
<content>ESRD GFR <15 on RESERVATIONS CLERK</content>
<content></content> Creatinine For GFR 1.26 mg/dL 0.70-1.30 [facility] ([facility]) Potassium Serum 4.8 meq/L 3.5-5.1 [facility] ([facility]) Chloride Level 107 meq/L 98-107 [facility] ([facility]) Carbon Dioxide Level 28 meq/L 21-32 [facility] ([facility]) Anion Gap 7 meq/L 8-16 [facility] [place] Ast/Sgot 9 U/L 7-37 [facility] ([facility] [place] Calcium Level 9.4 mg/dL 8.8-10.2 [facility] ([facility]) Alt/SGPT 17 U/L 12-78 [facility] ([facility] [place] Total Protein 6.7 GM/DL 6.4-8.2 [facility] ([facility] [place]) Alkaline Phosphatase 95 U/L 45-117 [facility] ([facility] [place]) Bilirubin,Total 1.3 mg/dL 0.2-1.0 [facility] ([facility]) Albumin 3.5 GM/DL 3.2-5.2 [facility] ([facility] [place] Albumin/Globulin Ratio 1.09 1.00-1.93 [place] [facility] ([facility]) ID Date Data Source [id number] 06/05/2019 01:31:25 PM EDT [facility] PET W CT IMAGING SKULL TO THIGH [id number] AL RESULTInterpreted by:Heavenly Leon MDINDICATION: 83-year-old male with history of 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 Lung nodules were biopsied in 2017 and showed no evidence of malignancy. Patient is status post chemotherapy and radiation.TECHNIQUE: The study was performed at the [facility]. Approximately 60 minutes following IV tracer administration, positron emission tomography was performed from the vertex of the skull through the proximal thighs. Non-contrast helical CT imaging was performed over the same range without breath-hold for attenuation correction of PET images and anatomic correlation, but not for primary interpretation as it is not of standard diagnostic quality. Images were reviewed in the axial, coronal and sagittal planes.Radiopharmaceutical: F18-FDG.Dose: 10.67 mCi. Blood Glucose: 93 mg/dL.COMPARISON: CT abdomen pelvis and thorax with contrast dated April 10, 2019; nuclear medicine bone scan dated November 12, 2016.FINDINGS:HEAD AND NECK: There is normal distribution of F-18 radiopharmaceutical in the visualized brain with no evidence of abnormal radiopharmaceutical uptake. It should be noted that a contrast enhanced CT or MRI is more sensitive for evaluation of brain masses. There is no FDG-avid disease or significant lymphadenopathy in the head and neck. CHEST: There is no FDG-avid disease in the chest. There is no axillary, mediastinal or hilar lymphadenopathy. There is no pleural or pericardial effusion. There is no air- space disease. A posterior right lower lobe nodule measuring 1 cm in size with no significant FDG activity is noted (series 3 image 109).Extensive coronary artery calcifications are present. Radiopaque leads are seen around the inferior cardiac silhouette.ABDOMEN AND PELVIS: Below the diaphragm, tracer is distributed physiologically in the gastrointestinal and genitourinary tracts. There is no significant lymphadenopathy and no FDG-avid disease. Grossly stable liver cysts are present. Redemonstration of cholelithiasis. Grossly stable multiple colonic diverticula without evidence of diverticulitis. There is underdistention of the bladder with posterior wall irregularity which may be due to underdistention however disease involvement cannot be excluded. Evaluation for recurrence is suboptimal due to physiologically excreted radiotracer activity within the bladder. Foci of gas within the bladder may be related to recent instrumentation.Bilateral renal cysts which do not demonstrate increased metabolic activity.MUSCULOSKELETAL: There is no FDG-avid or destructive bone lesion. Stable heterogeneous appearance of the pelvic bones noted.IMPRESSION:1. There are foci of gas present within the bladder which may be related to recent instrumentation. Evaluation for disease recurrence is suboptimal due to physiologically excreted radiotracer activity with gallbladder as well as underdistention of the bladder. The bladder wall appears less nodular and less thickened when compared to CT abdomen pelvis dated April 10, 2019.2. No metabolic evidence of distant metastatic disease.3. Other findings as described above.This document has been electronically signed by Cornelius Keith MD on 06/05/2019 1:29 PM Name Value Range Interpretation Code Description Data Rema rce(s) Supporting Document(s) ID Date Data Source [id number] 05/04/2019 09:24:53 AM [facility] Name Value Range Interpretation Code Description Data [facility] rce(s) Supporting Document(s) Progress Note [facility] SNAWGe0rXwLMBmJj44/UINcbIWMtc0ToZEkzOPv9MBfgWTZiE7XiNEW8cL6jKOK1FEvMXlVvUcMjHfG6 lbm [file] ICAgICAgICAgICAgICAgICAgICAgICAgICAgICAgIC AgICAgICAgICAgICAgICAgICAgICAgICAgICAgICAgICAgICAgICAgICAgICAgICAgICAgICAgICAgIC AgDQogICAgICAgICAgICAgICAgICAgICAgICAgICAgICAgICAgICAgICAgICAgICAgICAgICAgICAgIC AgICAgICAgICAgICAgICAgICAgICAgICAgICAgICAg ICAgICAgICAgICAgDQogICAgICAgICAgICAgICAgICAgICAgICAgICAgICAgICAgICAgICAgICAgICAg ICAgICAgICAgICAgICAgICAgICAgICAgICAgICAgICAgICAgICAgICAgICAgICAgICAgICAgDQogICAg ICAgICAgICAgICAgICAgICAgICAgICAgICAgICAgIC AgICAgICAgICAgICAgICAgICAgICAgICAgICAgICAgICAgICAgICAgICAgICAgICAgICAgICAgICAgIC AgICAgDQogICAgICAgICAgICAgICAgICAgICAgICAgICAgICAgICAgICAgICAgICAgICAgICAgICAgIC AgICAgICAgICAgICAgICAgICAgICAgICAgICAgICAg ICAgICAgICAgICAgICAgDQogICAgICAgICAgICAgICAgICAgICAgICAgICAgICAgICAgICAgICAgICAg ICAgICAgICAgICAgICAgICAgICAgICAgICAgICAgICAgICAgICAgICAgICAgICAgICAgICAgICAgDQog ICAgICAgICAgICAgICAgICAgICAgICAgICAgICAgIC AgICAgICAgICAgICAgICAgICAgICAgICAgICAgICAgICAgICAgICAgICAgICAgICAgICAgICAgICAgIC AgICAgICAgDQogICAgICAgICAgICAgICAgICAgICAgICAgICAgICAgICAgICAgICAgICAgICAgICAgIC AgICAgICAgICAgICAgICAgICAgICAgICAgICAgICAg ICAgICAgICAgICAgICAgICAgDQogICAgICAgICAgICAgICAgICAgICAgICAgICAgICAgICAgICAgICAg ICAgICAgICAgICAgICAgICAgICAgICAgICAgICAgICAgICAgICAgICAgICAgICAgICAgICAgICAgICAg DQogICAgICAgICAgICAgICAgICAgICAgICAgICAgIC AgICAgICAgICAgICAgICAgICAgICAgICAgICAgICAgICAgICAgICAgICAgICAgICAgICAgICAgICAgIC VjZNVwKCVjUNFiPMx9O0jmWQLpDMZsVO2kCJg8Ns5+BCiPOzDrCQX9edMleK9OBH7um0JnNGlwWOTnc3 LsYVv0PX8RNKEnZAfmZQ7TZOtfky7YJKCbAHTlqDVM s2dsHcLeQVQ8ZSXwAtgfCT6HQQNuI5djjgLcJPMuKBXEFSvtMMRKVVPhQWTiMwZbNvWmMWCfNZQnEMHX ACU4NKGnToRxROipXS9Xe3HniZW2KWy+Ei9KJT5ti3UfIBhwYKJyBO2iib5VJHaHAbJiZ3OnfxB9WBZx SDQvEc8ATNObJOCvuXYsOGMdMXJSGtDnT7UisL78RX ENCj4+IVscooRoYnoIYoTlRXAhv0WsIQy9PL0UCVMxZRa5bDJmWSLpD7Tqw0MfNd76HLXjSechKRhdaz WnWkWlspK1TLRIXJLzeHAdIpKeQwMeOTAsSMbjWXOPBHtBXiQaJ9Ejv7ZtQyC6XCXsSuXdSTdpTWTzPD hlKS85wFzvXM5OSBYmEUOaGK07OAJpIUKeCt7HDl4L WyOuMP0jos0XQcZnEU8rra5OWIpYAxSaC7G7yQPkD9Iura28QK4NzBM4jDArPG5KxN2jNB2Dv5VtGDJo KiEpWZBnFLZaEQWcOCOmAmOzGY2TGTWyUaLbvUOeAWYlTfK6ALPpSxIeHscyLQ3AYCZsCFW2KR4PRF2T RgbhR6EPQRgvjLjaSpXLXDP/QUNUSVZJVFkmTVJfT0 8TN3ITDBiHGtxjRHkPTgqdAc2kPFh+Cj3XEB0uh7KqVSqmKgDaRG8dhq9GDOrNMlAkL9L1pLBqG3J5TS igXt4BPZUzMUOlAhxmVYUXILbeOS7CVE7bitB8EH0ZqWSbWJNuNAEqwEJrPIo9C18ypEHaHIlaIF4KZL A+Migue+Kj0WXIHuVQFfHPAzTyIuMYYOXsVgD6DvJ7HU a0ZuM7TtGG50yNxzeiLdQWnvES3ASM9tFHMmXOXFNJ0EsCXuoJ7zepViZJSjRRXGYmQbH47nfMQdKAOn HGJ3MPFvKg7GRVCtY5DsjgYapBleuiTcYDPsHZNYVU2CMHeaggOrxLEqoQseJL00yBzuUZ9FMe0WSmSo YQ9hmq9OnNLtLs7OPZTyRk0GHVXtLPRwJRPvLBF9CU MdExSuVWgqJNZxTVYyTQN8RCElCUYhGI0AXlDlTOHvYkR5FSrtSVOdLKJhts5TIAKhGVUePzHrNvNlKF ImRSJcTJirRQGtSAChPDZ7NNMxSXXgLV9XNiSmVUDaFLV2WHJuRMKpAAKmay7CYDRoVVGhWwz9ELEuYC ClSQChUHqhKIMtIDB8GAzpUDRsJVXnHR8GQvKrOHXx JOqeNuIqUEHaZLQrea6BJQRrSVVeCzW1WRPkGDCuAOPpXAepSTXpXOZjNFVoRGPhQCHlPK3IAwDbXPQk EOI1EDevHPUwCVTvai9NAWTkFQKyMbQ4BNGfLSCbEOSzWUypETFkOPPjPzN4JHNfASNxDX3ZHqUgOSNi VJF5TPWsUCBkWAHakz5UEHUwCXXwWfqdWxJzNTXlRI AzKZryBQQiQYP5McUoSFSuWAJrMQ3ALrDrIUYsXLj7LfLgFCCwXVUrdi5WUIIxXPHsYHj6IrGuUBFrNZ LvTJgiNOLvCLQyWVbpQEDiWLDbSF9FNuLkDIRgWfIuZhWkQMZjCSZdbu7UHGPiTGVxBsUbVBRrLBVtGR WpKTxsGAKpQKSoIrT3MWPhAICpJB3RTyNmFRSbBxZ1 SyFeMQWtGUGidm4ZDBErCDAeAoi1XRKlTKZyELMuGGnmKDGxIOI1NvlxPJNnLWUyJO4CByDvNASvJkA2 OHabXUJcTZPqda8HGNYyBKAaKAvuRYIePYZcTROfGTydOQYvVBR2BIg5JBVoVJAmLO9NPwDyOWFxLdPa ABAaJBRgJOOxea3JWRCtLOOdYgf7GPNsVVOkIWSuVO klFFGnSHL8DSZ5IYKzJWOiHQ4MQtBhWLSfOgtbEAHvJFHtKRVxml4TdBCfuOodaa6JBHoGOk5CcZytTR GuUHnoBl6evAJpKxGjVFDDQr7EyrHqSNRdTQBESFepMGKkOALaUEC5RxW1CmU0SqRjIRu0RFOxEuseAE AxBKMwVhx4EeF8UAVnTha8RhreYPedXuN4VMmsYKC4 PRU3UXP3MaDnQgG+AE8hCTm+Vc1Fq3SkoeK6poDyVCheWxS5XF9GCAYGB2LJYb== ID Date Data Source [id number] 05/04/2019 08:44:37 AM [facility] Name Value Range Interpretation Code Description Data Rema rce(s) Supporting Document(s) Leukocytes [#/volume] in Blood by Automated count 5.7 10*3/uL 4-10 [facility] Erythrocytes [#/volume] in Blood by Automated count 5.89 10*6/uL 4.6- 6.1 [facility] Hemoglobin [Mass/volume] in Blood 13.0 g/dL 13.5-18 L [facility] Hematocrit [Volume Fraction] of Blood by Automated count 41.1 % 4 1-53 [facility] Erythrocyte mean corpuscular volume [Entitic volume] by Auto mated count 69.8 fL 80-96 L [facility] Erythrocyte mean corpuscular hemoglobin [Entitic mass] by Automated count 22.0 pg 27-33 L [facility] Erythrocyte mean corpuscular hemoglobin concentration [Mass/volume] by Automated count 31.6 g/dL 32.0-36.0 [facility] distribution width [Ratio] by Automated count 16.8 % 11.5-14.5 H [facility] Platelets [#/volume] in Blood by Automated count 167 10*3/uL 150-400 [facility] Differential cell count method - Blood [facility] Neutrophils/100 leukocytes in Blood by Automated count 67 % [facility] Lymphocytes/100 leukocytes in Blood by Automated count 19 % [facility] Monocytes/100 leukocytes in Blood by Automated count 10 % [facility] Eosinophils/100 leukocytes in Blood by Automated count 3 % [facility] Basophils/100 leukocytes in Blood by Automated count 1 % [facility] Neutrophils [#/volume] in Blood by Automated count 3.81 10*3/uL 1.8-7 .0 [facility] Lymphocytes [#/volume] in Blood by Automated count 1.10 10*3/uL 1.2-4 .0 L [facility] Monocytes [#/volume] in Blood by Automated count 0.56 10*3/uL 0-0.8 [facility] Eosinophils [#/volume] in Blood by Automated count 0.19 10*3/uL 0-0.5 [facility] Basophils [#/volume] in Blood by Automated count 0.03 10*3/uL 0-0.2 [facility] Nucleated erythrocytes/100 leukocytes [Ratio] in Blood by Automated count 0 /100{WBCs} 0-0 [facility] ID Date Data Source [id number] 05/04/2019 09:28:01 AM [facility] Name Value Range Interpretation Code Description Data Rema rce(s) Supporting Document(s) Albumin [Mass/volume] in Serum or Plasma by Bromocresol green (BCG) dye binding method 4.1 g/dL 3.5-5.2 [facility] al Bilirubin.total [Mass/volume] in Serum or Plasma 1.0 mg/dL <1.2 [facility] Calcium [Mass/volume] in Serum or Plasma 9.3 mg/dL 8.8-10.2 [facility] Chloride [Moles/volume] in Serum or Plasma 104 mmol/L 98-107 [facility] Creatinine [Mass/volume] in Serum or Plasma 1.18 mg/dL 0.70-1.20 [facility] Glucose [Mass/volume] in Serum or Plasma 108 mg/dL 70-140 [facility] Alkaline phosphatase [Enzymatic activity/volume] in Serum or Plasma 80 U/L 40-129 [facility] Potassium [Moles/volume] in Serum or Plasma 4.7 mmol/L 3.4-5.1 [facility] Protein [Mass/volume] in Serum or Plasma 7.0 g/dL 6.4-8.3 [facility] Sodium [Moles/volume] in Serum or Plasma 140 mmol/L 136-145 [facility] Aspartate aminotransferase [Enzymatic activity/volume] in Serum or Plasma 16 U/L <40 [facility] Urea nitrogen [Mass/volume] in Serum or Plasma 24 mg/dL 8-23 H [facility] Osmolality of Serum or Plasma by calculation 294 mosm/kg 275-300 [facility] Creatinine/Urea nitrogen [Mass Ratio] in Serum or Plasma 20 [facility] Bicarbonate [Moles/volume] in Serum 25 mmol/L 22-29 [facility] Alanine aminotransferase [Enzymatic activity/volume] in Seru m or Plasma 11 U/L <41 [facility] Anion gap 3 in Serum or Plasma 11 mmol/L 8-15 [facility] Albumin/Globulin [Mass Ratio] in Serum or Plasma 1.4 [facility] Glomerular filtration rate/1.73 sq M pre dicted among non-blacks [Volume Rate/Area] in Serum or Plasma by Creatinine-based formula (MDRD) >6 0 [facility] Glomerular filtration rate/1.73 sq M pre dicted among blacks [Volume Rate/Area] in Serum or Plasma by Creatinine-based formula (MDRD) >60 [facility] ID Date Data Source [id number] 05/04/2019 09:28:01 AM [facility] Name Value Range Interpretation Code Description Data Rema rce(s) Supporting Document(s) Magnesium [Mass/volume] in Serum or Plasma 2.1 mg/dL 1.6-2.4 [facility] ID Date Data Source [id number] 05/01/2019 07:59:33 AM [facility] Name Value Range Interpretation Code Description Data Rema rce(s) Supporting Document(s) Progress Note [facility] UGJKKh6zHpJOTjOz86/XAPxmMHJfp9YtSBpjRBy2MPmqFRYyR5FbVHX9tG5hGXO2OFdIVbAxEyEvQmUi lbm [file] [id number]hySMVHGk1Z ID Date Data Source [id number] 04/20/2019 12:41:17 PM [facility] CT ABDOMEN PELVIS WITH CONTRAST [id number] AL RESULTInterpreted by:Jj Garcia, MDCLINICAL HISTORY:83-year-old male with a history of bladder cancer, who presents for CT follow-up.TECHNIQUE:Contiguous 5 mm thick multislice axial helical images of the abdomen and pelvis were obtained from the lower thoracic level to the upper femoral level after administration of 40 mL of Omnipaque 240 oral contrast and 100 mL of the Omnipaque 300 intravenous contrast utilizing automated exposure control. 2 mm thick overlapping axial and 3 mm thick sagittal and coronal reconstructed images were obtained from the axial data set. DLP: 1,593 mGy-cm.COMPARISON:Compared to the prior CTs of the abdomen and pelvis dated 01/04/2018 and 04/24/2018.FINDINGS:BASILAR CHEST: For details regarding the visualized thorax, see the report for the CT of the thorax obtained on this date.LIVER: The liver is normal in size and mildly decreased in density relative to the spleen. There are multiple relatively stable nonenhancing low-density lesions scattered throughout the liver ranging in size from less than 5 mm to the largest measuring 16 x 16 x 16 mm.There are no other focal lesions and the remainder of the liver is unchanged and otherwise normal.BILIARY TRACT: The gallbladder is normal and there are multiple relatively stable small calcified gallstones within the dependent portion of the proximal gallbladder body.The visualized common duct is normal and there is no evidence of intrahepatic ductal dilatation.SPLEEN: The spleen is unchanged and normal in size and there are no focal lesions.PANCREAS: There are no masses or i nflammatory change and the pancreas is normal.ADRENAL GLANDS: The adrenal glands are normal.URINARY SYSTEM: There are multiple relatively stable exophytic nonenhancing low-density lesions arising from both kidneys that are more numerous on the right.The renal lesions range in size from less than 5 mm to the largest lesion on the right measuring 68 x 60 x 60 mm and the largest lesion on the left measuring 46 x 43 x 4 mm.The kidneys are normal in size and there is no evidence of nephrolithiasis, hydronephrosis or perinephric edema.There is normal uptake, concentration and excretion of intravenous contrast within both kidneys and the intrarenal and extrarenal collecting systems are normal.There is thickening of the left lateral wall of the bladder that is slightly increased in prominence from the prior study. 10 mm in maximum thickness.The visualized ureters are grossly normal and there is no evidence of ureterolithiasis or bladder stones. GI TRACT: The stomach, duodenum and proximal small bowel are poorly opacified with oral contrast and grossly normal. The remaining small bowel is normal and there is no evidence of obstruction. There is stable moderate to marked diverticulosis of the descending colon and sigmoid colon and moderate diverticulosis of the right colon and transverse colon without evidence of diverticulitis.There is a large amount of stool throughout the colon and the remainder of the large bowel is otherwise grossly normal.The appendix is not visualized and there are no inflammatory changes adjacent to cecum. REPRODUCTIVE SYSTEM: The prostate gland is mildly heterogeneous in intensity, measuring 48 x 51 x 52 mm and the seminal vesicles are normal.PERITONEAL SPACE: There is no evidence of adenopathy, free air or free fluid.RETROPERITONEAL SPACE: There is a stable prominent aortocaval lymph node measuring 12 x 12 x 15 mm (image 187 of 486) at the L3 level.There is no other retroperitoneal adenopathy or mass and the inferior vena cava is normal.There is diffuse ectasia of the mid to distal aorta measuring 30 mm AP x 30 mm TV. The remaining abdominal aorta is normal in caliber and markedly tortuous with moderate to marked patchy atherosclerotic calcification.There is stable marked tortuosity of the visualized iliac arteries. There is a small accessory right renal artery supplying the upper pole of the right kidney.BONES AND EXTRA-ABDOMINAL SOFT TISSUES: There is stable moderate osteopenia throughout the study. The visualized vertebral bodies, pedicles and posterior lamina are intact and the vertebral body heights are normal.There is stable marked disc space narrowing wi th vacuum phenomena, moderate to marked degenerative bony endplate change, moderate posterior disc bulges versus broad-based disc herniations and moderate canal stenosis from L2-3 to L5-S1.There is stable moderate to marked degenerative change of the lower thoracic and thoracolumbar region with a mild mid to upper lumbar levocurvature, loss of the lumbar lordosis and marked degenerative bony change of the lumbar facet joints.There is stable moderate to marked degenerative bony change of the sacroiliac joints and hip joints and the bony pelvis and sacrum are normal. The muscular and soft tissue structures of the body wall, pelvic and hip regions are normal.IMPRESSION:1. There is increased asymmetric thickening of the left lateral wall the bladder and recurrent disease is not excluded.2. There is stable mild fatty change of the liver.3. There is stable nonenhancing low-density lesions arising from the liver and both kidneys that are consistent with hepatic and renal cysts respectively.4. There are stable nonobstructing gallstones within the dependent portion of the gallbladder.5. There is a stable single prominent aortocaval lymph node at the L3 level no other evidence of adenopathy.6. There is stable diverticulosis without evidence of diverticulitis.7. The remaining solid organs and remaining bowel are normal.8. There are additional findings as described above.This document has been electronically signed by Jj Garcia MD on 04/20/2019 12:39 PM Name Value Range Interpretation Code Description Data Rema rce(s) Supporting Document(s) ID Date Data Source [id number] 04/20/2019 11:05:04 AM [facility] CT THORAX WITH CONTRAST [id number] RESUL TInterpreted by:Gilmer Maguire MDINDICATION: history of bladder cancer.TECHNIQUE: Multidetector row helical CT of the chest was performed with intravenous contrast. Coronal and sagittal reformations were obtained. Automated dose lowering techniques and/or adjustment according to patient size were utilized for this exam.COMPARISON: CT chest dated 04/24/2018.FINDINGS: Lungs and large airways: There is no focal consolidation. Moderate centrilobular emphysematous changes are present. There are multiple pulmonary nodules as follows: 6 mm pleural-based pulmonary nodule right middle lobe image 226 of 353, unchanged from prior exam of 2017 and therefore likely benign.5 mm pleural based nodule right lower lobe image 224, unchanged from 2017.12 mm nodule right lower lobe image 211, unchanged from 2017.5 mm nodule left lower lobe image 193, unchanged from 2017.Pleura: No pleural effusion or thickening.Heart and pericardium: Redemonstration of a dilated left ventricle and left atrium, unchanged. No pericardial effusion.Mediastinum and rowan: No lymphadenopathy.Vessels:The aorta is nondilated. Moderate atherosclerotic changes in the aorta and coronary arteries. Pulmonary artery is mildly prominent measuring 3.1 cm in diameter.Chest wall and osseous structures: Moderate degenerative changes of the visualized spine. Hemangioma noted within the vertebral body of T6. Pacemaker noted in the left chest wall.Upper abdomen: For findings below the diaphragm, please refer to report for CT abdomen from the same date.IMPRESSION:1. No evidence of metastatic disease in the chest.2. Multiple pulmonary nodules stable in size to prior exam of 2017 and therefore likely benign.3. Pulmonary artery is mildly prominent. Please correlate with concern for pulmonary hypertension.This doc ument has been electronically signed by Gilmer Maguire MD on 04/20/2019 11:02 AM Name Value Range Interpretation Code Description Data Rema rce(s) Supporting Document(s) ID Date Data Source [id number] 04/05/2019 01:26:35 PM [facility] Name Value Range Interpretation Code Description Data Rema rce(s) Supporting Document(s) Operative Note [facility] EPDYPc0aToSMKtVy71/GACgzMGEyh1QdLZyrVRu2TVtkJZXyQ0IhXHO0fN1cXUC7WReXNoUkIpFhBtB6 lbm [file] LnqgXLFhRpJbZgb3K3ZnIZErIwJvNX3RHj2WIxU2QAA5yKAoGs3RFqgmQKDGIoSlSI1VOVk= ID Date Data Source [id number] 04/05/2019 10:36:26 AM EST [facility] Name Value Range Interpretation Code Description Data Rema rce(s) Supporting Document(s) History and Physical [facility] ATEYWs7iNxZLBgCl44/DSTkxCKMgw8SrABopTAd5GAprGANqX6LkHWM0gU8cHPB5WQwNQpCpAnIwBrD9 lbm [file] AxMjQxNCAwMDAwMCBuDQowMDAwMDEyNjExIDAwMDAw BL7OHvAmUZHnKVW0CHMqLZFuEZNysj4IQQJfVZJsDqb3IzEgDYQkNLJoIEuqSJJeNDGwATN1DJYbLHZy MW2MZdRaCMSwTUGeHFTiSIBbZPXvfb4GAREbEXPxQXTxIsYoKULgECHhWDueDUJfYRR8JxJzOOAfJOMl KQ5FOhOjAVGmJTC7OMOcQVSaPFCtfv1PPXXdIRA0ZM P6BmNhZJZdJLLdFRehHQIfVQZ7ZwJ1CHKeLTBiBP2LViAxRSQjNGX2PQHhBZKbOKOmli5YVIQpTJQ3MI S3LXWzHAZnLNCkBUlhGXPyRTB3PgB6UWAhYRJlKQ5NQzWaSKXuVEV1CcWxDLWmRCWjgg2OOQFqMRH1Py p1IZSpTSLoYUGwKBczLBKsUVF4SIK9QQYxHEGqSM4N LnJsMOBqUYw5CdzlJJUhGHHkal3WCVMaHRH4OZkfPvKbIZTvQMNuFOolCORoNTZ2DNu1EQDfNITmRD1G XaFgYAYiNLobEGByOXNhTINlmc7ZdBRhsRwgvs4TBGwFEn8XqVjvHUT5GQhiCe3scNNaOuKtONPKAy5Q iwRiAMDyUDGBWWppJKScAAT3FCLlKmQzW2HlLZFkVP y1JyG3LRRrUVY4YIA8LeEcQdM0MtC1UTQrBRSfAtDkIXX5MoSkLUj9OLInKuS9DHctTPN+PD6kZXv+Pg 3Bk0UkvuS7ufAuUZa5TQV7OE9LJCFWM0EEQu== ID Date Data Source [id number] 04/06/2019 07:54:00 PM [facility] Surgical Pathology ReportName: Prosper JONES JMRN: [id number] Number: [id number] Date: 04/05/2019 00:00Received Date: 04/05/2019 15:09Physician(s): GRAYSON PINZON OLEGSpecniki(s) ReceivedA: TrigoneB: Right lateral wallC: Left lateral wallD: DomeE: Prostatic urethraF: Posterior wallClinical HistoryBladder cancer. 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.D) BLADDER, DOME, BIOPSY: REACTIVE UROTHELIUM WITH MILD CHRONICINFLAMMATION.E) PROSTATIC URETHRA, BIOPSY: UROTHELIUM WITH ATYPIA AND MILD CHRONICINFLAMMATION.F) BLADDER, POSTERIOR WALL, BIOPSY: MOSTLY DENUDED MUCOSA WITH RAREATYPICAL UROTHELIAL CELLS AND MILD CHRONIC INFLAMMATION./Fabien Chester M.D.;Resident PathologistElectronically Signed By Nikunj Zuñiga M.D., Attending Pathologist04/06/2019 19:54:30The attending pathologist named above attests that he/she has personallyreviewed the relevant preparation(s) for the specimen, per formedmicroscopic examination when indicated, and rendered the final diagnosis.Unless 'gross-only' is specified, the final diagnosis is based on amicroscopic examination of sales training representative sections of tissue.Gross DescriptionThe specimen is received in six parts.Part A is received in formalin labeled with the patient's name "RollandRhyner" and "trigone". It consists of a single soft lopez tissue fragmentmeasuring 0.2 cm in greatest dimension. Totally submitted in onecassette. Part B is received in formalin labeled with the patient's name "RollandRhyner" and "right lateral wall". It consists of a single soft lopez tissuefragment measuring 0.3 cm in greatest dimension. Totally submitted in onecassette. Part C is received in formalin labeled with the patient's name "RollandRhyner" and "left lateral wall". It consists of a single soft lopez tissuefragment measuring 0.3 cm in greatest dimension. Totally submitted in onecassette. Part D is received in formalin labeled with the patient's name "RollandRhyner" and "dome". It consists of a single soft lopez tissue fragmentmeasuring 0.3 cm in greatest dimension. Totally submitted in onecassette. Part E is received in formalin labeled with the patient's name "RollandRhyner" and "prostatic urethra". It consists of a single soft lopez tissuefragment measuring 0.2 cm in greatest dimension. Totally submitted in onecassette. Part F is received in formalin labeled with the patient's name "RollandRhyner" and "posterior wall". It consists of a single soft lopez tissuefragment measuring 0.3 cm in greatest dimension. Totally submitted in onecassette. AEM/pmw This report may include one or more immunohistochemical stain results thatuse analyte specific reagents. All positive and negative controls havebeen reviewed by the attending pathologist and are satisfactory. The testswere developed and their performance characteristics determined by [facility] Pathology department. They have not been cleared or approved by the USFood and Drug Administration. The FDA has determined that such clearanceor approval is not necessary. Name Value Range Interpretation Code Description Data [facility] rce(s) Supporting Document(s) ID Date Data Source [id number] 03/16/2019 09:00:00 AM EST [facility] ([facility]) Name Value Range Interpretation Code Description Data [facility] rce(s) Supporting Document(s) Appearance, Urine Laboratory test result [facility] ([facility]) Specific [place] Urine Auto 1.019 1.002-1.035 [facility] ([facility]) PH,Urine 5.0 units 5.0-9.0 [facility] ([facility]) Color, Urine Laboratory test result [facility] NT ([facility]) Glucose, Urine (Ua) Auto Laboratory test result [facility] ([facility]) Protein, Urine Auto Laboratory test result [facility] ([facility]) Ketone, Urine Auto Laboratory test result [facility] ([facility]) Bilirubin, Urine Auto Laboratory test result [facility] ([facility]) Urobilinogen, Urine Auto 0.2 mg/dL 0.0-2.0 [facility] ([facility]) Blood, Urine Blood Laboratory test result [facility] ([facility]) Nitrite, Urine Auto Laboratory test result [facility] ([facility]) Leukocyte Esterase, Urine Auto Laboratory test result [facility] ([facility]) WBC, Urine Auto 1 /HPF 0-3 [facility] ([facility] [place] [facility]) RBC, Urine Auto 1 /HPF 0-3 [facility] ([facility]) Bacteria, Urine Auto Laboratory test result [facility] ([facility]) Squamous Epithelial Cell Ur AU 0 /HPF 0-6 [facility] ([facility]) Hyaline Cast, Urine Auto 0 /LPF 0-1 [facility] T ([facility]) ID Date Data Source [id number] 03/16/2019 08:58:00 AM EST [facility] [place] Name Value Range Interpretation Code Description Data Rema rce(s) Supporting Document(s) Bacteria identified in Urine by Culture Laboratory test [place] [facility] [place] ID Date Data Source [id number] 03/16/2019 08:45:00 AM EST [facility] [place] Name Value Range Interpretation Code Description Data Rema rce(s) Supporting Document(s) Bacteria identified in Urine by Culture Laboratory test result [facility] [place] Procedure 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 Code Duration Value Status Description Data Source(s ) Alcohol intake 03/04/2020 12:00:00 AM EST Current non-d laila of alcohol (finding) completed Current non-drinker of alcohol (finding) [facility] Tobacco use and exposure 03/04/2020 12:00:00 AM EST Never used co mpleted Never used [facility] Smoking 03/04/2020 12:00:00 AM EST Former smoker completed Former smoker [facility] Alcohol intake 02/19/2020 12:00:00 AM EST Current non-d laila of alcohol (finding) completed Current non-drinker of alcohol (finding) [facility] Alcohol intake 01/29/2020 12:00:00 AM EST Current non-d laila of alcohol (finding) completed Current non-drinker of alcohol (finding) [facility] Alcohol intake 01/16/2020 12:00:00 AM EST Current non-d laila of alcohol (finding) completed Current non-drinker of alcohol (finding) [facility] Smoking 01/14/2020 12:00:00 AM EST Patient is a former smoker completed Patient is a former smoker [facility] ([facility] Alcohol intake 12/19/2019 12:00:00 AM EDT Current non-d laila of alcohol (finding) completed Current non-drinker of alcohol (finding) [facility] Alcohol intake 10/23/2019 12:00:00 AM EDT Yes completed [facility] Smoking 10/23/2019 12:00:00 AM EDT Former smoker completed Former smoker [facility] Alcohol intake 09/28/2019 12:00:00 AM EDT Yes completed [facility] Smoking 09/28/2019 12:00:00 AM EDT Former smoker completed Former smoker [facility] Alcohol intake 09/21/2019 12:00:00 AM EDT Yes completed [facility] Smoking 09/21/2019 12:00:00 AM EDT Former smoker completed Former smoker [facility] Alcohol intake 09/17/2019 12:00:00 AM EDT Yes completed [facility] Smoking 09/17/2019 12:00:00 AM EDT Former smoker completed Former smoker [facility] Alcohol intake 08/23/2019 12:00:00 AM EDT Yes completed [facility] Smoking 08/23/2019 12:00:00 AM EDT Former smoker completed Former smoker [facility] Alcohol intake 05/04/2019 12:00:00 AM EST Current non-d laila of alcohol (finding) completed Current non-drinker of alcohol (finding) [facility] Smoking 05/04/2019 12:00:00 AM EST Former smoker completed Former smoker [facility] Alcohol intake 04/30/2019 12:00:00 AM EST Current non-d laila of alcohol (finding) completed Current non-drinker of alcohol (finding) [facility] Smoking 04/30/2019 12:00:00 AM EST Former smoker completed Former smoker [facility] Alcohol intake 04/06/2019 12:00:00 AM EST Current non-d laila of alcohol (finding) completed Current non-drinker of alcohol (finding) [facility] Smoking 04/06/2019 12:00:00 AM EST Former smoker completed Former smoker [facility] Alcohol intake 04/05/2019 12:00:00 AM EST Current non-d laila of alcohol (finding) completed Current non-drinker of alcohol (finding) [facility] Smoking 04/05/2019 12:00:00 AM EST Former smoker completed Former smoker [facility] Vital Signs ID Date Data Source [id number] Name Value Range Interpretation Code Description Data Source(s) Body mass index (BMI) [Ratio] 29.8 kg/m2 29.8 k g/m2 [facility] ([facility] [place] body weight 178 [lb_av] 178 [lb_av] [facility] ([facility] Body weight 220.00 [lb_av] 220.00 [lb_av] [facility] ([facility] Body height 72 [in_i] 72 [in_i] [facility] ([facility] 6'0" Respiratory rate 16 /min 16 /min [facility] ( [facility] Heart rate 80 /min 80 /min [facility] ([facility] Body temperature 97.8 [degF] 97.8 [degF] [facility] ([facility] Diastolic blood pressure 74 mm[Hg] 74 mm[Hg] [facility] ([facility] Systolic blood pressure 114 mm[Hg] 114 mm[Hg] M [facility] ([facility] Oxygen saturation in Arterial blood by Pulse oximetry 93 % 93 % MEDTENZIN ([facility] Body mass index (BMI) [Ratio] 30.0 kg/m2 30.0 k g/m2 MEDENT ([facility] [place] body weight 178 [lb_av] 178 [lb_av] MEDEN T ([facility] Body weight 221.00 [lb_av] 221.00 [lb_av] MEDEN T ([facility] Body height 72 [in_i] 72 [in_i] MEDENT ([facility] 6'0" Respiratory rate 14 /min 14 /min MEDENT ( [facility] Heart rate 64 /min 64 /min MEDENT ([facility] Body temperature 97.6 [degF] 97.6 [degF] MEDENT ([facility] Diastolic blood pressure 66 mm[Hg] 66 mm[Hg] MEDENT ([facility] Systolic blood pressure 122 mm[Hg] 122 mm[Hg] M EDENT ([facility] Respiratory rate 16 /min 16 /min MEDENT ( [facility]) Heart rate 68 /min 68 /min MEDENT ([facility] Regular Body mass index (BMI) [Ratio] 28.8 kg/m2 28.8 k g/m2 MEDENT ([facility]) Body height 73 [in_i] 73 [in_i] MEDENT ([facility] 6'1" Body weight 218.00 [lb_av] 218.00 [lb_av] MEDEN T ([facility]) Oxygen saturation in Arterial blood by Pulse oximetry 92 % 92 % MEDENT ([facility] Body mass index (BMI) [Ratio] 29.7 kg/m2 29.7 k g/m2 MEDENT ([facility] [place] body weight 160 [lb_av] 160 [lb_av] MEDEN T ([facility] Body weight 219.00 [lb_av] 219.00 [lb_av] MEDEN T ([facility] Body height 72 [in_i] 72 [in_i] MEDENT ([facility] 6'0" Respiratory rate 16 /min 16 /min MEDENT ( [facility] Heart rate 66 /min 66 /min MEDENT ([facility] Body temperature 98.4 [degF] 98.4 [degF] MEDENT ([facility] Diastolic blood pressure 68 mm[Hg] 68 mm[Hg] MEDENT ([facility] Systolic blood pressure 124 mm[Hg] 124 mm[Hg] M EDENT ([facility] Diastolic blood pressure 68 mm[Hg] 68 mm[Hg] MEDENT ([facility]) sitting, regular cuff Systolic blood pressure 128 mm[Hg] 128 mm[Hg] M EDENT ([facility]) sitting, regular cuff Respiratory rate 16 /min 16 /min MEDENT ( [facility]) Heart rate 72 /min 72 /min MEDENT ([facility] Regular Body mass index (BMI) [Ratio] 28.8 kg/m2 28.8 k g/m2 MEDENT ([facility]) Body height 73 [in_i] 73 [in_i] MEDENT ([facility]) 6'1" Body weight 218.00 [lb_av] 218.00 [lb_av] MEDEN T ([facility]) Oxygen saturation in Arterial blood by Pulse oximetry 93 % 93 % [facility] Respiratory rate 18 /min 18 /min [facility] Heart rate 77 /min 77 /min [facility] Body temperature 36.56 Etienne 36.56 Etienne [facility] Diastolic blood pressure 59 mm[Hg] 59 mm[Hg] [facility] Systolic blood pressure 118 mm[Hg] 118 mm[Hg] [facility] Body mass index (BMI) [Ratio] 28.51 kg/m2 28.51 kg/m2 [facility] Body weight 98.022 kg 98.022 kg [facility] Body height 185.4 cm 185.4 cm [facility] Oxygen saturation in Arterial blood by Pulse oximetry 91 % 91 % [facility] Respiratory rate 18 /min 18 /min [facility] Heart rate 74 /min 74 /min [facility] Body temperature 36.89 Etienne 36.89 Etienne [facility] Diastolic blood pressure 55 mm[Hg] 55 mm[Hg] [facility] Systolic blood pressure 109 mm[Hg] 109 mm[Hg] [facility] Body mass index (BMI) [Ratio] 28.22 kg/m2 28.22 kg/m2 [facility] Body weight 96.979 kg 96.979 kg [facility] Body height 185.4 cm 185.4 cm [facility] Oxygen saturation in Arterial blood by Pulse oximetry 97 % 97 % [facility] Body temperature 36.61 Etienne 36.61 Etienne [facility] Heart rate 62 /min 62 /min [facility] Diastolic blood pressure 58 mm[Hg] 58 mm[Hg] [facility] Systolic blood pressure 116 mm[Hg] 116 mm[Hg] [facility] Respiratory rate 18 /min 18 /min [facility] Body mass index (BMI) [Ratio] 29.56 kg/m2 29.56 kg/m2 [facility] Body weight 101.606 kg 101.606 kg [facility] Body height 185.4 cm 185.4 cm [facility] Diastolic blood pressure 72 mm[Hg] 72 mm[Hg] [facility] Systolic blood pressure 118 mm[Hg] 118 mm[Hg] [facility] Oxygen saturation in Arterial blood by Pulse oximetry 96 % 96 % [facility] Body mass index (BMI) [Ratio] 29.42 kg/m2 29.42 kg/m2 [facility] Body weight 101.152 kg 101.152 kg [facility] Body height 185.4 cm 185.4 cm [facility] Heart rate 72 /min 72 /min [facility] Oxygen saturation in Arterial blood by Pulse oximetry 95 % 95 % [facility] Respiratory rate 16 /min 16 /min [facility] Body temperature 36.83 Etienne 36.83 Etienne [facility] Heart rate 59 /min 59 /min [facility] Diastolic blood pressure 74 mm[Hg] 74 mm[Hg] [facility] Systolic blood pressure 144 mm[Hg] 144 mm[Hg] [facility] Body mass index (BMI) [Ratio] 29.73 kg/m2 29.73 kg/m2 [facility] Body weight 102.2 kg 102.2 kg [facility] Body height 185.4 cm 185.4 cm [facility] Diastolic blood pressure 70 mm[Hg] 70 mm[Hg] MEDENT ([facility]) sitting Systolic blood pressure 124 mm[Hg] 124 mm[Hg] M EDENT ([facility]) sitting Diastolic blood pressure 70 mm[Hg] 70 mm[Hg] MEDENT ([facility]) sitting, regular cuff Systolic blood pressure 128 mm[Hg] 128 mm[Hg] M EDENT ([facility]) sitting, regular cuff Respiratory rate 16 /min 16 /min MEDENT ( [facility]) Heart rate 60 /min 60 /min MEDENT ([facility] Regular Body mass index (BMI) [Ratio] 30.7 kg/m2 30.7 k g/m2 MEDENT ([facility]) Body height 73 [in_i] 73 [in_i] MEDENT ([facility] 6'1" Body weight 233.00 [lb_av] 233.00 [lb_av] MEDEN T ([facility]) Diastolic blood pressure 66 mm[Hg] 66 mm[Hg] eCW1 ([facility]) Systolic blood pressure 124 mm[Hg] 124 mm[Hg] e CW1 ([facility]) Body temperature 98 [degF] 98 [degF] eCW1 ([facility]) Respiratory rate 18 /min 18 /min eCW1 ([facility]) Heart rate 66 /min 66 /min eCW1 ([facility]) Body mass index (BMI) [Ratio] 32.87 kg/m2 32.87 kg/m2 eCW1 ([facility]) Body height 71.5 [in_us] 71.5 [in_us] eCW1 ([facility]) Body weight Measured 239 [lb_av] 239 [lb_av] eC W1 ([facility]) ID Date Data Source [id number] 03/28/2020 12:42:58 PM [facility] Value Range Interpretation Code Description Data Source(s) WEIGHT RECORDED 219 lb 219 lb [facility] Body height Measured 72.99 in 72.99 in [facility] ID Date Data Source [id number] 03/18/2020 11:43:29 AM [facility] Value Range Interpretation Code Description Data Source(s) WEIGHT RECORDED 222 lb 222 lb [facility] Body height Measured 72.99 in 72.99 in [facility] ID Date Data Source [id number] 03/11/2020 02:12:44 PM [facility] Value Range Interpretation Code Description Data Source(s) WEIGHT RECORDED 219 lb 219 lb [facility] Body height Measured 72.99 in 72.99 in [facility] ID Date Data Source [id number] 03/04/2020 12:39:41 PM [facility] Value Range Interpretation Code Description Data Source(s) WEIGHT RECORDED 218.8 lb 218.8 lb [facility] Body height Measured 72.99 in 72.99 in [facility] ID Date Data Source [id number] 02/26/2020 05:20:01 PM [facility] Name Value Range Interpretation Code Description Data Source(s) WEIGHT RECORDED 220 lb 220 lb [facility] ID Date Data Source [id number] 02/19/2020 02:20:43 PM [facility] Value Range Interpretation Code Description Data Source(s) WEIGHT RECORDED 219.8 lb 219.8 lb [facility] Body height Measured 72.99 in 72.99 in [facility] ID Date Data Source [id number] 02/12/2020 04:19:35 PM [facility] Name Value Range Interpretation Code Description Data Source(s) WEIGHT RECORDED 219 lb 219 lb [facility] Body height Measured 72.99 in 72.99 in [facility] ID Date Data Source [id number] 01/18/2020 07:28:32 AM [facility] Value Range Interpretation Code Description Data Source(s) WEIGHT RECORDED 220 lb 220 lb [facility] Body height Measured 73 in 73 in [facility] ID Date Data Source [id number] [facility] Interpretation Code Description Data Source(s) WEIGHT RECORDED 217.59 lb 217.59 lb [facility] ID Date Data Source [id number] [facility] Description Data Source(s) WEIGHT RECORDED 238 lb 238 lb [facility] ID Date Data Source [id number] 06/04/2019 [facility] Code Description Data Source(s) WEIGHT RECORDED 235 lb 235 lb [facility] ID Date Data Source [id number] 05/28/2019 [facility]:54[facility] Code Description Data Source(s) WEIGHT RECORDED 235 lb 235 lb [facility] Body height Measured 70.47 in 70.47 in [facility] ID Date Data Source [id number] 05/21/2019 [facility] Value Range Interpretation Code Description Data Source(s) WEIGHT RECORDED 238 lb 238 lb [facility] ID Date Data Source [id number] 05/14/2019 [facility] Code Description Data Source(s) WEIGHT RECORDED 238 lb 238 lb [facility] Body height Measured 70.47 in 70.47 in [facility] ID Date Data Source [id number] 05/07/2019 [facility]:42[facility] Value Range Interpretation Code Description Data Source(s) WEIGHT RECORDED 238 lb 238 lb [facility] ID Date Data Source [id number] 05/04/2019 09:28:11 AM [facility] Name Value Range Interpretation Code Description Data Source(s) WEIGHT RECORDED 239.6 lb 239.6 lb [facility] ID Date Data Source [id number] 05/01/2019 07:59:30 AM [facility] Name Value Range Interpretation Code Description Data Source(s) WEIGHT RECORDED 237 lb 237 lb [facility] Body height Measured 70.47 in 70.47 in [facility] Patient Treatment Plan of Care Planned Activity Planned Date Details Description Data Source (s) gemcitabine (GEMZAR) intravesical solution syringe 1,0 00 mg 02/26/2020 12:15:00 PM [facility] DOCEtaxel (TAXOTERE) 37.5 mg in sodium c hloride 0.9 % 50 mL intravesical solution 02/26/2020 12:00:00 AM [facility] DOCEtaxel (TAXOTERE) 37.5 mg in sodium c hloride 0.9 % 50 mL intravesical solution 02/19/2020 11:30:00 AM [facility] gemcitabine (GEMZAR) 1,000 mg in sodium chloride 0.9 % 50 mL (20 mg/mL) intravesical solution 02/12/2020 11:00:[address] [facility] DOCEtaxel (TAXOTERE) 37.5 mg in sodium c hloride 0.9 % 50 mL intravesical solution 02/12/2020 09:30:00 AM [facility] Calcium Carbonate 1250 MG / Cholecalciferol 125 UNT Or al Tablet 11/20/2019 12:00:00 AM [facility] Tamsulosin hydrochloride 0.4 MG Oral Capsule 11/13/2019 12:00:00 AM [facility] Docusate Sodium 100 MG Oral Capsule 10/24/2019 12:00:00 AM [facility] Warfarin Sodium 3 MG Oral Tablet 10/24/2019 12:00:00 AM [facility] ferrous gluconate 324 MG Oral Tablet 10/15/2019 12:00:00 AM [facility] Acetaminophen 325 MG Oral Tablet 10/02/2019 12:00:00 AM EDT [facility] potassium chloride SA (K-DUR,KLOR-CON) 20 MEQ tablet 12:00:00 AM EDT [facility] Warfarin Sodium 3 MG Oral Tablet 10/02/2019 12:00:00 AM EDT [facility] Folic Acid 1 MG Oral Tablet 09/28/2019 12:00:00 AM EDT [facility] Warfarin Sodium 2 MG Oral Tablet 09/28/2019 12:00:00 AM EDT [facility] potassium chloride SA (K-DUR,KLOR-CON) 10 MEQ tablet 12:00:00 AM EDT [facility] Furosemide 40 MG Oral Tablet 09/28/2019 12:00:00 AM EDT [facility] Folic Acid 1 MG Oral Tablet 09/28/2019 12:00:00 AM EDT [facility] ferrous gluconate 324 MG Oral Tablet 09/28/2019 12:00:00 AM EDT [facility] Albuterol 0.833 MG/ML / Ipratropium [place] 0.167 MG/M L Inhalant Solution 09/28/2019 12:00:00 AM EDT [facility] Metoprolol Tartrate 25 MG Oral Tablet 09/28/2019 12:00:00 AM EDT [facility] Docusate Sodium 100 MG Oral Capsule 09/28/2019 12:00:00 AM EDT [facility] Ascorbic Acid 500 MG Oral Tablet 09/28/2019 12:00:00 AM EDT [facility] Mupirocin 0.02 MG/MG Topical Ointment 09/19/2019 12:00:00 AM EDT [facility] gemcitabine (GEMZAR) 2,000 mg in sodium chloride 0.9 % 100 mL (20 mg/mL) intravesical solution 06/11/2019 10:30:00 AM T [facility] Oxybutynin chloride 5 MG Oral Tablet 05/14/2019 12:00:00 AM EDT [facility] gemcitabine (GEMZAR) 2,000 mg in sodium chloride 0.9 % 100 mL (20 mg/mL) intravesical solution 05/07/2019 09:30:00 AM EDT [facility] Tamsulosin hydrochloride 0.4 MG Oral Capsule 04/27/2019 12:00:00 AM EST [facility] Phenazopyridine hydrochloride 100 MG Oral Tablet 04/05/2019 12:00:0 0 AM EST [facility] Azelastine HCl 137 MCG/SPRAY 03/05/2019 12:00:00 AM EST eCW1 ([facility]) apixaban 5 MG Oral Tablet [facility] Captopril 25 MG Oral Tablet [facility] Nitroglycerin 0.4 MG Sublingual Tablet [facility] clopidogrel 75 MG Oral Tablet [facility] Enalapril Maleate 5 MG Oral Tablet [facility] Warfarin Sodium 5 MG Oral Tablet [facility] DORZOLAMIDE HCL-TIMOLOL MAL OP [facility]
[2020-04-26 01:43] LABS: HEMATOCRIT 31.1 % (42.0-52.0); HEMOGLOBIN 9.5 g/dl (13.5-17.5); MEAN CORPUSCULAR HEMOGLOBIN 22.4 pg (27.0-33.0); MEAN CORPUSCULAR HGB CONC 30.5 g/dl (32.0-36.5); MEAN CORPUSCULAR VOLUME 73.3 fl (80.0-96.0); PLATELET COUNT, AUTOMATED 165 10^3/uL (150-450); RED BLOOD COUNT 4.24 10^6/uL (4.30-6.10); WHITE BLOOD COUNT 9.2 10^3/uL (4.0-10.0)
[2020-04-26] MEDS ORDERED: DOK1CAP7 PO (01:45)
[2020-04-26 02:24] LABS: CALCIUM LEVEL 8.7 MG/DL (8.8-10.2); CREATININE FOR GFR 1.44 MG/DL (0.70-1.30); MAGNESIUM LEVEL 1.9 MG/DL (1.8-2.4)
--- NOTE | 2020-04-26 02:35 | REPVR ---
PROCEDURE INFORMATION: Exam: XR Chest Exam date and time: 04/26/20 (1:39am) Age: 84 years old Clinical indication: Palpitations TECHNIQUE: Imaging protocol: Portable CXR Views: 1 view COMPARISON: CT CHEST of 02/11/20 Chest films of 09/14/18 FINDINGS: Stable cardiomegaly. Left atrial appendage closure clip in place. S/P sternotomy. 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 Streaky changes at the left lung base. Elevated left hemidiaphragm. Nonspecific hazy opacity laterally in the right mid lung zone. A small left pleural effusion is likely present (also seen on recent CT-CHEST scan). No pneumothorax. IMPRESSION: Stable cardiomegaly. Pacemaker electrodes in place. Nonspecific hazy opacity laterally in the right mid lung zone -- possible early pneumonitis. Streaky parenchymal changes at the left lung base -- possible LLL pneumonitis, also. Probable small left pleural effusion. Electronically signed by: Lesly Martinez On 04/26/2020 02:35:38 AM
[2020-04-26] MEDS ORDERED: AMIODARONE HCL 150 MG in IV 1 EA IV STA (02:40)
[2020-04-26] MEDS ORDERED: METOPROLOL 5 MG/5 ML VIAL IV STA (03:28)
[2020-04-26] MEDS ORDERED: METOPROLOL TART 25 MG TABLET PO ONE (03:30)
--- OUTSIDE RECORDS SUMMARY | 2020-04-26 04:04 | CCD ---
Author Author [facility] Organization [facility] Address Unknown Phone Unavailable Care Team Providers Care Water Resources Technical Officer Name Role Phone NASIMMANUELJANICEMIRANDA Unavailable Unavailable Beatriz GUTHRIE Unavailable Unavailable Symenow, Fatoumata Block PA Unavailable Unavailable SymenowFatoumata PA Unavailable Unavailable Symenoilir, Fatoumata Block PA Unavailable Unavailable Symenow, Fatoumata Block PA Unavailable Unavailable Symenoilir, Fatoumata Block PA Unavailable Unavailable Symenoilir, Fatoumata Block PA Unavailable Unavailable Symenow, Fatoumata Block PA Unavailable Unavailable Symenow, Fatoumata Block PA Unavailable Unavailable Symenoilir, Fatoumata Blcok PA Unavailable Unavailable Symenow, Fatoumata Block PA [...] Mckayla PA Unavailable Unavailable Conway, M Myesha EYE SPECIALIST Unavailable Unavailable Conway, M Myesha EYE SPECIALIST Unavailable Unavailable Conway, M Myesha EYE SPECIALIST Unavailable Unavailable Conway, M Myesha EYE SPECIALIST Unavailable Unavailable Conway, M Myesha EYE SPECIALIST Unavailable Unavailable Conway, M Myesha EYE SPECIALIST Unavailable Unavailable Conway, M Myesha EYE SPECIALIST Unavailable Unavailable Conway, M Myesha EYE SPECIALIST Unavailable Unavailable Conway, M Myesha EYE SPECIALIST Unavailable Unavailable Conway, M Myesha EYE SPECIALIST Unavailable Unavailable Conway, M Myesha EYE SPECIALIST Unavailable Unavailable Conway, M Myesha EYE SPECIALIST Unavailable Unavailable Conway, M Myesha EYE SPECIALIST Unavailable Unavailable Conway, M Myesha EYE SPECIALIST Unavailable Unavailable Conway, M Myesha EYE SPECIALIST Unavailable Unavailable Conway, M Myesha EYE SPECIALIST Unavailable Unavailable Conway, M Myesha EYE SPECIALIST Unavailable Unavailable Conway, M Myesha EYE SPECIALIST Unavailable Unavailable Conway, M Myesha EYE SPECIALIST Unavailable Unavailable Conway, M Myesha EYE SPECIALIST Unavailable Unavailable Conway, M Myesha EYE SPECIALIST Unavailable Unavailable GANEY, L RIZWAN Unavailable Unavailable NAHEED, L CESIA Unavailable Unavailable Detor, M Alejandrina BLOCK CHOPPER HAND Unavailable Unavailable Detor, M Alejandrina BLOCK CHOPPER HAND Unavailable Unavailable Detor, M Alejandrina BLOCK CHOPPER HAND Unavailable Unavailable Detor, M Alejandrina BLOCK CHOPPER HAND Unavailable Unavailable Detor, M Alejandrina BLOCK CHOPPER HAND Unavailable Unavailable Detor, M Alejandrina BLOCK CHOPPER HAND Unavailable Unavailable Detor, M Alejandrina BLOCK CHOPPER HAND Unavailable Unavailable Detor, M Alejandrina BLOCK CHOPPER HAND Unavailable Unavailable Detor, M Alejandrina BLOCK CHOPPER HAND Unavailable Unavailable Detor, M Alejandrina BLOCK CHOPPER HAND Unavailable Unavailable Detor, M Alejandrina BLOCK CHOPPER HAND Unavailable Unavailable Detor, M Alejandrina BLOCK CHOPPER HAND Unavailable Unavailable Detor, M Alejandrina BLOCK CHOPPER HAND Unavailable Unavailable Detor, M Alejandrina BLOCK CHOPPER HAND Unavailable Unavailable Detor, M Alejandrina BLOCK CHOPPER HAND Unavailable Unavailable Detor, M Alejandrina BLOCK CHOPPER HAND Unavailable Unavailable Detor, M Alejandrina BLOCK CHOPPER HAND Unavailable Unavailable Detor, M Alejandrina BLOCK CHOPPER HAND Unavailable Unavailable Detor, M Alejandrina BLOCK CHOPPER HAND Unavailable Unavailable Detor, M Alejandrina BLOCK CHOPPER HAND Unavailable Unavailable Detor, M Alejandrina BLOCK CHOPPER HAND Unavailable Unavailable Detor, M Alejandrina BLOCK CHOPPER HAND Unavailable Unavailable Detor, M Alejandrina BLOCK CHOPPER HAND Unavailable Unavailable Detor, M Alejandrina BLOCK CHOPPER HAND Unavailable Unavailable Detor, M Alejandrina BLOCK CHOPPER HAND Unavailable Unavailable Detor, M Alejandrina BLOCK CHOPPER HAND Unavailable Unavailable Detor, M Alejandrina BLOCK CHOPPER HAND Unavailable Unavailable Detor, M Alejandrina BLOCK CHOPPER HAND Unavailable Unavailable Detor, M Alejandrina BLOCK CHOPPER HAND Unavailable Unavailable Detor, M Alejandrina BLOCK CHOPPER HAND Unavailable Unavailable Detor, M Alejandrina BLOCK CHOPPER HAND Unavailable Unavailable Detor, M Alejandrina BLOCK CHOPPER HAND Unavailable Unavailable Detor, M Alejandrina BLOCK CHOPPER HAND Unavailable Unavailable Detor, M Alejandrina BLOCK CHOPPER HAND Unavailable Unavailable Detor, M Alejandrina BLOCK CHOPPER HAND Unavailable Unavailable Detor, M Alejandrina BLOCK CHOPPER HAND Unavailable Unavailable Teetee Gómez MD . Unavailable [...] MD, Teetee . Unavailable Detor, M Alejandrina BLOCK CHOPPER HAND Unavailable Unavailable Detor, M Alejandrina BLOCK CHOPPER HAND Unavailable Unavailable Detor, M Alejandrina BLOCK CHOPPER HAND Unavailable Unavailable Detor, M Alejandrina BLOCK CHOPPER HAND Unavailable Unavailable Detor, M Alejandrina BLOCK CHOPPER HAND Unavailable Unavailable Detor, M Alejandrina BLOCK CHOPPER HAND Unavailable Unavailable Detor, M Alejandrina BLOCK CHOPPER HAND Unavailable Unavailable Detor, M Alejandrina BLOCK CHOPPER HAND Unavailable Unavailable Detor, M Alejandrina BLOCK CHOPPER HAND Unavailable Unavailable Detor, M Alejandrina BLOCK CHOPPER HAND Unavailable Unavailable Detor, M Alejandrina BLOCK CHOPPER HAND Unavailable Unavailable Detor, M Alejandrina BLOCK CHOPPER HAND Unavailable Unavailable Detor, M Alejandrina BLOCK CHOPPER HAND Unavailable Unavailable Detor, M Alejandrina BLOCK CHOPPER HAND Unavailable Unavailable Detor, M Alejandrina BLOCK CHOPPER HAND Unavailable Unavailable Detor, M Alejandrina BLOCK CHOPPER HAND Unavailable Unavailable Detor, M Alejandrina BLOCK CHOPPER HAND Unavailable Unavailable Detor, M Alejandrina BLOCK CHOPPER HAND Unavailable Unavailable Detor, M Alejandrina BLOCK CHOPPER HAND Unavailable Unavailable Detor, M Alejandrina BLOCK CHOPPER HAND Unavailable Unavailable Detor, M Alejandrina BLOCK CHOPPER HAND Unavailable Unavailable Detor, M Alejandrina BLOCK CHOPPER HAND Unavailable Unavailable Detor, M Alejandrina BLOCK CHOPPER HAND Unavailable Unavailable Detor, M Alejandrina BLOCK CHOPPER HAND Unavailable Unavailable Detor, M Alejandrina BLOCK CHOPPER HAND Unavailable Unavailable Detor, M Alejandrina BLOCK CHOPPER HAND Unavailable Unavailable Detor, M Alejandrina BLOCK CHOPPER HAND Unavailable Unavailable Detor, M Alejandrina BLOCK CHOPPER HAND Unavailable Unavailable Detor, M Alejandrina BLOCK CHOPPER HAND Unavailable Unavailable Detor, M Alejandrina BLOCK CHOPPER HAND Unavailable Unavailable Detor, M Alejandrina BLOCK CHOPPER HAND Unavailable Unavailable Detor, M Alejandrina BLOCK CHOPPER HAND Unavailable Unavailable Detor, M Alejandrina BLOCK CHOPPER HAND Unavailable Unavailable Detor, M Alejandrina BLOCK CHOPPER HAND Unavailable Unavailable Detor, M Alejandrina BLOCK CHOPPER HAND Unavailable Unavailable Detor, M Alejandrina BLOCK CHOPPER HAND Unavailable Unavailable De La Garza, Zhandong Unavailable [...] Garza, Zhandong Unavailable Unavailable EANNIELLO, L YANIQUE EYE SPECIALIST Unavailable Unavailable EANNIELLO, L YANIQUE EYE SPECIALIST Unavailable Unavailable EANNIELLO, L YANIQUE EYE SPECIALIST Unavailable Unavailable EANNIELLO, L YANIQUE EYE SPECIALIST Unavailable Unavailable EANNIELLO, L YANIQUE EYE SPECIALIST Unavailable Unavailable EANNIELLO, L YANIQUE EYE SPECIALIST Unavailable Unavailable EANNIELLO, L YANIQUE EYE SPECIALIST Unavailable Unavailable EANNIELLO, L YANIQUE EYE SPECIALIST Unavailable Unavailable EANNIELLO, L YANIQUE EYE SPECIALIST Unavailable Unavailable EANNIELLO, L YANIQUE EYE SPECIALIST Unavailable Unavailable EANNIELLO, L YANIQUE EYE SPECIALIST Unavailable Unavailable EANNIELLO, L YANIQUE EYE SPECIALIST Unavailable Unavailable EANNIELLO, L YANIQUE EYE SPECIALIST Unavailable Unavailable EANNIELLO, L YANIQUE EYE SPECIALIST Unavailable Unavailable EANNIELLO, L YANIQUE EYE SPECIALIST Unavailable Unavailable EANNIELLO, L YANIQUE EYE SPECIALIST Unavailable Unavailable EANNIELLO, L YANIQUE EYE SPECIALIST Unavailable Unavailable EANNIELLO, L YANIQUE EYE SPECIALIST Unavailable Unavailable EANNIELLO, L YANIQUE EYE SPECIALIST Unavailable Unavailable EANNIELLO, L YANIQUE EYE SPECIALIST Unavailable Unavailable EANNIELLO, L YANIQUE EYE SPECIALIST Unavailable Unavailable EANNIELLO, L YANIQUE EYE SPECIALIST Unavailable Unavailable EANNIELLO, L YANIQUE EYE SPECIALIST Unavailable Unavailable EANNIELLO, L YANIQUE EYE SPECIALIST Unavailable Unavailable EANNIELLO, L YANIQUE EYE SPECIALIST Unavailable Unavailable EANNIELLO, L YANIQUE EYE SPECIALIST Unavailable Unavailable EANNIELLO, L YANIQUE EYE SPECIALIST Unavailable Unavailable EANNIELLO, L YANIQUE EYE SPECIALIST Unavailable Unavailable EANNIELLO, L YANIQUE EYE SPECIALIST Unavailable Unavailable EANNIELLO, L YANIQUE EYE SPECIALIST Unavailable Unavailable EANNIELLO, L YANIQUE EYE SPECIALIST Unavailable Unavailable EANNIELLO, L YANIQUE EYE SPECIALIST Unavailable Unavailable EANNIELLO, L YANIQUE EYE SPECIALIST Unavailable Unavailable ALIASES , DEFAULT / GENERIC [...] GENERIC / UNKNOWN PROVIDER * Unavailable Unavailable RUANOSHYANNE MD Unavailable Unavailable RUANO, SHYANNE FOX Unavailable Unavailable RUANO, SHYANNE FOX Unavailable Unavailable RUANO, SHYANNE MD Unavailable Unavailable RUANO, SHYANNE MD Unavailable Unavailable RAUNO, SHYANNE MD Unavailable Unavailable RUANO, SHYANNE MD Unavailable Unavailable RUANO, SHYANNE MD Unavailable Unavailable RUANO, SHYANNE MD Unavailable Unavailable RUANO, SHYANNE MD Unavailable Unavailable RUANO, SHYANNE MD Unavailable Unavailable RUANO, SHYANNE MD Unavailable Unavailable RUANO, SHYANNE MD Unavailable Unavailable RUANO, SHYANNE MD Unavailable Unavailable RUANO, SHYANNE Unavailable Unavailable RUANO, SHYANNE MD Unavailable Unavailable RUANO, SHYANNE MD Unavailable Unavailable RUANO, SHYANNE Unavailable Unavailable RUANO, SHYANNE Unavailable Unavailable RUANO, SHYANNE MD Unavailable Unavailable RUANO, SHYANNE MD Unavailable Unavailable RUANO, SHYANNE MD Unavailable Unavailable RUANO, SHYANNE MD Unavailable Unavailable RUANO, SHYANNE Unavailable Unavailable RUANO, SHYANNE Unavailable Unavailable RUANO, SHYANNE Unavailable Unavailable RUANO, SHYANNE Unavailable Unavailable RUANO, SHYANNE Unavailable Unavailable RUANO, SHYANNE MD Unavailable Unavailable RUANO, SHYANNE MD Unavailable Unavailable RUANO, SHYANNE MD Unavailable Unavailable RUANO, SHYANNE Unavailable Unavailable RUANO, SHYANNE Unavailable Unavailable RUANO, SHYANNE Unavailable Unavailable RUANO, SHYANNE Unavailable Unavailable RUANO, SHYANNE MD Unavailable Unavailable RUANOSHYANNE MD Unavailable Unavailable RUANOSHYANNE MD Unavailable Unavailable RUANO, SHYANNE MD Unavailable Unavailable RUANOSHYANNE MD Unavailable Unavailable RUANOSHYANNE MD Unavailable Unavailable RUANO SHYANNE MD Unavailable Unavailable RUANO SHYANNE MD Unavailable Unavailable RUANO SHYANNE MD Unavailable Unavailable RUANO SHYANNE MD Unavailable Unavailable RUANO SHYANNE MD Unavailable Unavailable RUANO, SHYANNE MD Unavailable Unavailable RUANO SHYANNE MD Unavailable Unavailable RUANO SHYANNE MD Unavailable Unavailable RUANO SHYANNE MD Unavailable Unavailable RUANO SHYANNE MD Unavailable Unavailable RUANO, SHYANNE MD Unavailable Unavailable RUANO SHYANNE MD Unavailable Unavailable RUANO SHYANNE MD Unavailable Unavailable RUANO SHYANNE MD Unavailable Unavailable RUANOSHYANNE REBOLLEDO MD Unavailable Unavailable RUANOSHYANNE REBOLLEDO MD Unavailable Unavailable RUANOSHYANNE MD Unavailable Unavailable RUANOSHYANNE MD Unavailable Unavailable RUANOSHYANNE MD Unavailable Unavailable RUANOSHYANNE REBOLLEDO MD Unavailable Unavailable RUANOSHYANNE REBOLLEDO MD Unavailable Unavailable RUANOSHYANNE REBOLLEDO MD Unavailable Unavailable RUANOSHYANNE REBOLLEDO MD Unavailable Unavailable RUANOSHYANNE REBOLLEDO MD Unavailable Unavailable RUANOSHYANNE REBOLLEDO MD Unavailable Unavailable RUANO, SHYANNE MD Unavailable Unavailable RUANOSHYANNE REBOLLEDO MD Unavailable Unavailable RUANO, SHYANNE MD Unavailable Unavailable Balbir, E Lilia Unavailable Unavailable [...] Unavailable Unavailable Pinzon, Grayson Unavailable Unavailable Pinzon, Gryason Unavailable Unavailable Pinzon, Grayson Unavailable Unavailable Pinzon, [...] Unavailable Carlo KHAN MD Unavailable Unavailable Carlo KHNA MD Unavailable Unavailable Carlo KHAN MD Unavailable Unavailable Lolis Casey MD Unavailable Unavailable Lolis Casey MD Unavailable Unavailable Lolis Casey MD Unavailable Unavailable Lolis Caesy MD Unavailable Unavailable Lolis Casey MD Unavailable [...] Unavailable Unavailable Cassidy CARVAJAL MD Unavailable Unavailable Casisdy CARVAJAL MD Unavailable Unavailable Cassidy CARVAJAL MD Unavailable Unavailable Casisdy CARVAJAL MD Unavailable Unavailable Cassidy CARVAJAL MD [...] Unavailable NAHEED, H HARJINDER MD Unavailable Unavailable NHAEED, H HARJINDER MD Unavailable Unavailable NAHEED, H HARJINDER MD Unavailable Unavailable NAHEED, H HARJINDER MD Unavailable Unavailable NAHEED, H HARJINDER MD Unavailable Unavailable NAHEED, H HRAJINDER MD Unavailable Unavailable NAHEED, H HARJINDER MD [...] Unavailable Unavailable COLIN VASQUEZ RN Unavailable Unavailable La Honda, Dennys Unavailable Unavailable La Honda, Dennys Unavailable Unavailable La Honda, Dennys Unavailable Unavailable La Honda, Dennys Unavailable Unavailable La Honda, Dennys Unavailable Unavailable La Honda, Dennys Unavailable Unavailable La Honda, Dennys Unavailable Unavailable La Honda, Dennys Unavailable Unavailable La Honda, Dennys Unavailable Unavailable La Honda, Dennys Unavailable Unavailable La Honda, Dennys Unavailable Unavailable La Honda, Dennys Unavailable Unavailable La Honda, Ednnys Unavailable Unavailable La Honda, Dennys Unavailable Unavailable La Honda, Dennys Unavailable Unavailable La Honda, Dennys Unavailable Unavailable La Honda, Dennys Unavailable Unavailable La Honda, Dennys Unavailable Unavailable La Honda, Dennys Unavailable Unavailable La Honda, Dennys Unavailable Unavailable La Honda, Dennys Unavailable Unavailable La Honda, Dennys Unavailable Unavailable La Honda, Dennys Unavailable Unavailable La Honda, Dennys Unavailable Unavailable La Honda, Dennys Unavailable Unavailable La Honda, Dennys Unavailable Unavailable La Honda, Dennys Unavailable Unavailable La Honda, Dennys Unavailable Unavailable La Honda, Dennys Unavailable Unavailable La Honda, Dennys Unavailable Unavailable La Honda, Dennys Unavailable Unavailable La Honda, Dennys Unavailable Unavailable La Honda, Dennys Unavailable Unavailable La Honda, Dennys Unavailable Unavailable La Honda, Dennys Unavailable Unavailable La Honda, Dennys Unavailable Unavailable La Honda, Dennys Unavailable Unavailable La Honda, Dennys Unavailable Unavailable La Honda, Dennys Unavailable Unavailable La Honda, Dennys Unavailable Unavailable La Honda, Dennys Unavailable Unavailable La Honda, Dennys Unavailable Unavailable La Honda, Dennys Unavailable Unavailable La Honda, Dennys Unavailable Unavailable La Honda, Dennys Unavailable Unavailable La Honda, Dennys Unavailable Unavailable La Honda, Dennys Unavailable Unavailable La Honda, Dennys Unavailable Unavailable La Honda, Dennys Unavailable Unavailable La Honda, Dennys Unavailable Unavailable La Honda, Dennys Unavailable Unavailable La Honda, Dennys Unavailable Unavailable La Honda, Dennys Unavailable Unavailable La Honda, Dennys Unavailable Unavailable La Honda, Dennys Unavailable Unavailable La Honda, Dennys Unavailable Unavailable La Honda, Dennys Unavailable Unavailable La Honda, Dennys Unavailable Unavailable La Honda, Dennys Unavailable Unavailable CHOW, Angel LICONA Unavailable [...] is protected by Article 27-F of the [facility] Public Health law. If you continue you may have access to information: Regarding HIV / AIDS; Provided by facilities licensed or operated by the [facility] Office of Mental Health; or Provided by the [facility] Office for People With Developmental Disabilities. If such information is present, then the following [facility] mandated warning applies: This information has been [...] law may result in a fine or snf sentence or both. A general authorization for the release of medical or other information is NOT sufficient authorization for further disc losure. Allergies and Adverse Reactions Type Description Substance Reaction Status Data Source(s ) Environmental Allergy Bees Bees PCC ([facility]) Drug allergy Sulfa Antibiotics Sulfa Antibiotics PCC ([facility]) bees, hornets bees, hornets bees, hornets hives Active eCW1 ([facility]) Sulfa (for allergy use only) Sulfa (for allergy use only) Marquez lfa (for allergy use only) Hives Active eCW1 ([facility]) bees, hornets bees, hornets bees, hornets hives Active eCW1 ([facility]) Sulfa (for allergy use only) Sulfa (for allergy use only) Marquez lfa (for allergy use only) Hives Active eCW1 ([facility]) Family History Family Member Name Family Member Gender Family Member Status Date o f Status Description Data Source(s) Unknown Unknown Problem MED[facility] ([facility]) Unknown Male Problem MED[facility] ([facility] () Unknown Female Problem MEDENT ([facility]) Encounters Encounter Providers Location Date Indications Data Source(s ) Outpatient Attender: Teetee Gómez MD 05/16/2020 12:00:00 A M [facility] Outpatient Attender: Teetee Gómez MD 04/11/2020 12:00:00 A M [facility] Outpatient Attender: SOWMYA ACEVEDO [id number] 03/27/2020 08:30:2 3 AM [facility] Outpatient Attender: DEFAULT / GENE ROGER / UNKNOWN PROVIDER ALIASES Attender: CESIA CARVAJAL 03/27/2020 12:00:00 AM ES T - 03/28/2020 12:00:00 AM EST Unspecified symptoms and signs involving the genitouri nary system [facility] Unspecified symptoms and signs involving the genitourinary system Outpatient Referrer: YANIQUE ANGELO NP 03/27/2020 1 2:00:00 AM EST Gross hematuria [facility] Gross hematuria Outpatient Attender: HARJINDER CARVAJAL MD [facility] 07:45:00 AM EST MEDENT ([facility] Outpatient Attender: MIRANDA SKINNER 03/18/2020 12:00 :00 AM [facility] Outpatient Attender: RIZWAN WATSON 03/11/19 12:00:00 AM EST - 03/11/2020 12:46:05 PM [facility] Outpatient Attender: Grayson Pinzon [id number] 03/04/2020 12:00:0 0 AM EST Malignant neoplasm of bladder, unspecified [facility] Malignant neoplasm of bladder, unspecifi ed Outpatient Attender: Grayson Pinzon 03/04/2020 12:00:00 AM E [facility] Outpatient Attender: COLIN VASQUEZ RN [id number] 12:00:00 AM EST - 02/26/2020 02:51:48 PM EST [facility] Outpatient Attender: COLIN VASQUEZ RNAttender: Grayson campoverde [id number] 02/19/2020 12:00:00 AM EST - 02/19/2020 01:19:36 PM EST [facility] unspecifi ed Office Visit Attender: KALYN BLAIR MD Main Office 02/12/2020 10:45:0 0 AM EST [facility]ENT ([facility]) Outpatient Attender: COLIN VASQUEZ RN [id number] 12:00:00 AM EST - 02/12/2020 01:18:22 PM [facility] Outpatient Attender: Teetee Gómez MD 02/01/2020 12:00:00 A M [facility] Outpatient Attender: Grayson Pinzon [id number] 0 12:00:00 AM EST - 01/29/2020 12:27:29 PM [facility] Outpatient Attender: HARJINDER CARVAJAL MD [place] [facility] 08:00:00 AM EST [facility] ([facility] Outpatient Attender: Teetee Gómez MD 01/18/2020 12:00:00 A M [facility] Office Visit Attender: KALYN BLAIR MD Main Office 01/17/2020 03:07:0 0 PM EST [facility] ([facility]) Outpatient Attender: Grayson PinzonAdmitter: Grayson Pinzon [id number] 01/16/2020 12:00:00 AM EST - 01/16/2020 12:00:00 AM EST bladder cancer [facility] bladder cancer Patient discharged. Outpatient Attender: Mckayla COMBS Main Office 01/14/2020 08:45:00 AM EST MEDENT ([facility]) Outpatient Attender: Grayson Pinzon [facility] 01/11/2020 06:30:00 AM [facility] Outpatient Attender: Teetee Gómez MD 12/28/2019 12:00:00 A M [facility] Outpatient Attender: HARJINDER CARVAJAL MD [place] [facility] 01:15:00 PM EDT MED[facility] ([facility] Outpatient Attender: Grayson PinzonAdmitter: Grayson Pinzon [id number] 12/19/2019 06:26:00 AM EDT - 12/19/2019 07:30:00 AM EDT bladder cancer [facility] bladder cancer Patient discharged. Outpatient Attender: Grayson Pinzon [facility] 12/14/2019 09:30:00 AM [facility] Outpatient Attender: Teetee Gómez MD 12/14/2019 12:00:00 A M [facility] Office Visit Attender: KALYN BLAIR MD Main Office 11/29/2019 12:34:0 0 PM EDT MED[facility] ([facility]) Outpatient Attender: Teetee Gómez MD 11/16/2019 12:00:00 A M [facility] Outpatient Attender: Mckayla COMBS Main Office 11/12/2019 03:00:00 PM EDT MED[facility] ([facility]) Outpatient Attender: Teetee Gómez MD 11/09/2019 12:00:00 A M [facility] Office Visit Attender: KALYN BLAIR MD Main Office 10/30/2019 12:34:0 0 PM EDT MED[facility] ([facility]) Inpatient Attender: Elizabeth De La GarzaAdmitter: Elizabeth Henderson [id number] 10/16/2019 02:27:46 PM EDT - 10/24/2019 12:21:00 PM EDT [facility] Patient discharged. Outpatient Referrer: Alejandrina ACOSTA 10/16/2019 11:32:59 A M EDT [facility] Outpatient Attender: Alejandrina ACOSTA MOCAM-MOCAM 2019 12:00:00 AM EDT - 10/16/2019 01:29:34 PM EDT [facility] Outpatient Attender: SHYANNE RUANO MDConsultant: SHYANNE Olivia MD 10/11/2019 07:14:00 AM EDT - 10/11/2019 07:24:00 AM EDT [facility] Outpatient Attender: SHYANNE RUANO MDConsultant: SHYANNE Olivia MD 10/09/2019 06:39:00 AM EDT - 10/09/2019 06:49:00 AM EDT [facility] Outpatient Attender: SHYANNE RUANO MDConsultant: SHYANNE Olivia MD 10/08/2019 10:38:00 AM EDT - 10/08/2019 10:48:00 AM EDT [facility] Outpatient Attender: SHYANNE RUANO MDConsultant: SHYANNE Olivia MD 10/05/2019 06:55:00 AM EDT - 10/05/2019 07:05:00 AM EDT [facility] Outpatient Attender: SHYANNE RUANO MDConsultant: SHYANNE Olivia MD 10/04/2019 06:44:00 AM EDT - 10/04/2019 06:54:00 AM EDT [facility] Outpatient Attender: SHYANNE RUANO MDConsultant: SHYANNE Olivia MD 10/03/2019 02:00:00 PM EDT - 10/03/2019 02:10:00 PM EDT [facility] Inpatient Attender: Lilia Mei er: Dennys SilvestreAdmitter: Dennys SilvestreConsultant: Dennys Silvestre [id number] 09/28/2019 09:02:33 PM ED T - 10/02/2019 03:00:00 PM EDT [facility] Patient discharged. Inpatient Attender: Darrell Santos 09/28/19 01:45:00 PM EDT - 09/28/2019 08:35:00 PM EDT [facility] Patient discharged. Inpatient Attender: Elizabeth De La GarzaAdmitter: Elizabeth De La Garza E [id number] 09/20/2019 09:54:00 AM EDT - 09/28/2019 01:31:00 PM EDT [facility] Patient discharged. Outpatient Attender: Elizabeth De La GarzaReferrer: Elizabeth Ortiz OB-MOB.PAT 09/17/2019 10:39:14 AM EDT - 09/17/2019 10:39:33 AM EDT [facility] Outpatient Attender: Elizabeth De La GarzaReferrer: Elizabeth Henderson [id number] 09/17/2019 09:00:00 AM EDT - 09/17/2019 11:59:00 PM EDT [facility] Patient discharged. Outpatient Attender: Elizabeth De La GarzaReferrer: Elizabeth Ortiz OB-MOB.PAT 09/17/2019 07:26:28 AM EDT - 09/17/2019 09:01:06 AM EDT [facility] Outpatient Referrer: Alejandrina Tiwari BLOCK CHOPPER HAND 09/13/2019 12:48:30 P M EDT [facility] Outpatient Referrer: Alejandrina Tiwari BLOCK CHOPPER HAND 09/03/2019 03:16:18 P M EDT [facility] Outpatient Attender: Teetee Gómez MD 08/31/2019 12:00:00 A M [facility] Office Visit Attender: KALYN BLAIR MD Main Office 08/28/2019 03:31:0 0 PM EDT MED[facility] ([facility]) Outpatient Attender: LORENZO KHAN MDA dmitter: LORENZO KHAN MDReferrer: LORENZO KHAN MD [id number] 08/23/2019 01:19:00 PM EDT - 08/23/2019 06:30:00 PM EDT [facility] Patient discharged. Office Visit Attender: KALYN BLAIR MD Main Office 07/24/2019 11:55:0 0 AM EDT [facility] ([facility]) Outpatient Attender: Mckayla COMBS Main Office 07/11/2019 08:15:00 AM EDT [facility] ([facility]) [address], [facility] [address] 07/06/2019 12:00:00 AM EDT eCW1 ([facility]) [address] [place] [address] 07/04/2019 12:00:00 AM EDT eCW1 ([facility]) Outpatient Attender: Teetee Gómez MD 06/29/2019 12:00:00 A M [facility] Office Visit Attender: KALYN BLAIR MD Main Office 06/19/2019 12:48:0 0 PM EDT [facility] ([facility]) Outpatient Attender: KARLA CARCAMO 06/11/2019 12:00:00 AM E DT [facility] Outpatient Referrer: Teetee Gómez MD 06/04/2019 12:0 0:00 AM EDT Malignant neoplasm of overlapping sites of bladder [facility] Malignant neoplasm of overlapping sites of bladder Outpatient Attender: LIVAN CHOW 06/04/2019 12:00:00 AM [facility] Outpatient Attender: Teetee Gómez MD 06/01/2019 12:00:00 A M [facility] Outpatient Referrer: Teetee Gómez MD 05/30/2019 12:00:00 A M [facility] Outpatient Attender: FLAKO GUTHRIE 05/28/2019 12:0 0:00 AM EDT Malignant neoplasm of bladder, unspecified [facility] Malignant neoplasm of bladder, unspecifi ed [facility] [address] [facility] [address] 05/23/2019 12:00:00 AM EDT eCW1 ([facility]) Outpatient Attender: MINA DE PAZ 05/21/2019 12:00:00 AM EDT Malignant neoplasm of bladder, unspecified [facility] Malignant neoplasm of bladder, unspecifi ed Outpatient Attender: CESIA CARVAJAL 2019 12:00:00 AM EDT - 05/14/2019 10:51:23 AM [facility] Outpatient Attender: Teetee Gómez MD 05/09/2019 12:00:00 A M [facility] Outpatient Attender: MINA DE PAZ 05/07/2019 12:00:00 AM EDT Malignant neoplasm of bladder, unspecified [facility] Malignant neoplasm of bladder, unspecifi ed Outpatient 05/07/2019 12:00:00 AM [facility] Outpatient Attender: Teetee Gómez MD [id number] 2019 12:00:00 AM EST - 05/04/2019 09:13:30 AM EST Malignant neoplasm of overlapping sites of [facility] Malignant neoplasm of overlapping sites of bladder [address] [address] 05/04/2019 12:00:00 AM EST eCW1 ([facility]) Outpatient Attender: Grayson Pinzon [id number] 12:00:00 AM EST - 04/30/2019 03:27:13 PM EST Malignant neoplasm of bladder, unspecified [facility] Malignant neoplasm of bladder, unspecifi ed Outpatient Attender: Grayson Pinzon 04/27/2019 12:00:00 AM E [facility] Outpatient Attender: Teetee Gómez MD 04/27/2019 12:00:00 A M [facility] Outpatient Referrer: Myesha Conway NP 04/24/2019 12:00:0 0 AM [facility] Outpatient Referrer: Lolis Casey MD 12:00:00 AM EST - 04/20/2019 11:59:00 PM EST Malignant neoplasm of overlapping sites of [facility] Malignant neoplasm of overlapping sites of bladder Outpatient Attender: Grayson Pinzon 04/13/2019 12:00:00 AM E [address] [address] 04/11/2019 12:00:00 AM EST eCW1 ([facility]) Outpatient Attender: Grayson PinzonAdmitter: Grayson Pinzon [id number] 04/05/2019 12:00:00 AM EST - 04/05/2019 12:00:00 AM EST Bladder cancer [facility] Bladder cancer Patient discharged. Outpatient Attender: Teetee Gómez MD 03/30/2019 12:00:00 A M [facility] Outpatient Referrer: Myesha Conway NP 03/22/2019 12:00:0 [address] [address] 03/16/2019 12:00:00 AM EST eCW1 ([facility]) [address] [address] 03/07/2019 12:00:00 AM EST eCW1 ([facility]) [address] [address] 03/05/2019 12:00:00 AM EST eCW1 ([facility]) Immunizations Vaccine Date Status Description Data Source(s) COVID-19 VACCINE Moderna 04/10/2020 12:00:00 AM EST completed [facility] Vaccine Series Complete: YESThis Data wa s Submitted to [facility] Via [employer]. Medications Medication Brand Name Start Date Product Form Dose Route Admi nistrative Instructions Pharmacy Instructions Status Indications Reaction Description Data Source(s) gemcitabine (GEMZAR) intravesical solution syringe 1,000 mg 02/26/2020 12:15:00 PM EST 1000 mg Intravesical active [facility] DOCEtaxel (TAXOTERE) 37.5 mg in sodium c hloride 0.9 % 50 mL intravesical solution 02/26/2020 12:00:00 AM EST 37.5 mg Intravesical active [facility] DOCEtaxel (TAXOTERE) 37.5 mg in sodium c hloride 0.9 % 50 mL intravesical solution 02/19/2020 11:30:00 AM EST 37.5 mg Intravesical active [facility] gemcitabine (GEMZAR) 1,000 mg in sodium chloride 0.9 % 50 mL (20 mg/mL) intravesical solution 02/12/2020 11:00:00 AM EST 1000 mg Intrave sical active [facility] DOCEtaxel (TAXOTERE) 37.5 mg in sodium c hloride 0.9 % 50 mL intravesical solution 02/12/2020 09:30:00 AM EST 37.5 mg Intravesical active [facility] Lactobacillus acidophilus [id number] UNT Oral Capsule Probiot ic 01/13/2020 12:00:00 AM EST ORAL active M EDENT ([facility]) apixaban 5 MG Oral Tablet [Eliquis] Eliquis 12/13/2019 12:00:00 AM E DT ORAL active [facility] ([facility]) 500 mg 12/07/2019 12:00:00 AM EDT tablet 28 TAKE ONE TABLET BY MOUTH FOUR TIMES A DAY UNTIL GONE TAKE ONE TABLET BY MOUTH FOUR TIMES A DAY UNTIL GONE SOLD: 12/07/2019 [facility] Calcium Carbonate 1250 MG / Cholecalciferol 125 UNT Oral Tab let Calcium 500 + D 11/20/2019 12:00:00 AM EDT ORAL active [facility] ([facility]) Calcium Carbonate 1250 MG / Cholecalcife rol 125 UNT Oral Tablet Calcium 500 + D 500-125 MG-UNIT Oral Tablet (Calcium Carbonate-Vitamin D) Calcium 500 + D 500- 125 MG-UNIT Oral Tablet (Calcium Carbonate-Vitamin D) 11/20/2019 12:00:00 AM EDT Oral active Take by mouth [facility] Tamsulosin hydrochloride 0.4 MG Oral Cap teresa Tamsulosin HCl 0.4 MG Oral Capsule (FLOMAX) Tamsulosin HCl 0.4 MG Oral Capsule (FLOMAX) 11/13/2019 12:00 :00 AM EDT 0.4 mg Oral active Take 1 capsule b y mouth Two Times Daily [facility] Captopril 12.5 MG Oral Tablet Captopril 11/12/2019 12:00:00 AM EDT ORAL completed [facility] ([facility]) Calcium Carbonate 500 MG Chewable Tablet [Tums] Tums 11/11/2019 12:00:00 AM EDT active [facility] ( [facility]) dorzolamide 20 MG/ML Ophthalmic Solution Dorzolamide HCL 11/11/2019 12:00:00 AM EDT active [facility] ([facility]) Tamsulosin hydrochloride 0.4 MG Oral Capsule Tamsulosin HCL 11/11/2019 12:00:00 AM EDT ORAL active [facility] ([facility]) ferrous gluconate 324 MG Oral Tablet Ferrous Gluconate 12:00:00 AM EDT ORAL active [facility] ([facility]) Warfarin Sodium 3 MG Oral Tablet [Coumadin] Coumadin 09/30 12:00:00 AM EDT completed [facility] ([facility]) Metoprolol Tartrate 25 MG Oral Tablet me toprolol tartrate (LOPRESSOR) tablet 12.5 mg metoprolol tartrate (LOPRESSOR) tablet 12.5 mg 11:00:00 AM EDT 12.5 mg Oral active 12.5 mg, Oral, 2 times daily, First dose on Tue10/24/19 at 1100
Hold for SBP < 100 or HR < 60
[facility] Medication administered onsite Warfarin Sodium 3 MG Oral Tablet warfarin (COUMADIN) 3 MG tablet warfarin (COUMADIN) 3 MG tablet 10/24/2019 12:00:00 AM EDT active 3 mg daily until directed otherwise by Dr. Blair's office [facility] Docusate Sodium 100 MG Oral Capsule Docusate Sodium (, DSS,) 100 MG CAPS Docusate Sodium (,DSS,) 100 MG CAPS 10/24/2019 12:00:00 AM EDT 100 mg Oral active Take 1 capsule (100 mg total) by mouth 2 (two) times a day as needed [facility] Magnesium Chloride 0.84157 MEQ/ML / Pota ssium Chloride 0.0497 MEQ/ML / Sodium Acetate 0.0163 MEQ/ML / Sodium Chloride 0.0899 MEQ/ML / Sodium gluconate 5.02 MG/ML Injectable Solution [Normosol-R] electrolyte-R (NORMOSOL-R/PLASMALYTE-R) solution 1,000 mL electrolyte-R (NORMOSOL-R/PLASMALYTE-R) solution 1,000 mL 10/23/2019 05:00:00 PM EDT 1000 mL Intravenous completed at 100 mL/hr, 1,000 mL, Intravenous, Continuous, Starting Tue10/23/19 at 1700, PACU (only) [facility] Medication administered onsite Magnesium Chloride 0.62413 MEQ/ML / Pota ssium Chloride 0.0497 MEQ/ML / Sodium Acetate 0.0163 MEQ/ML / Sodium Chloride 0.0899 MEQ/ML / Sodium gluconate 5.02 MG/ML Injectable Solution [Normosol-R] electrolyte-R (NORMOSOL-R/PLASMALYTE-R) solution electrolyte-R (NORMOSOL-R/PLASMALYTE-R) solution 10/22 06:00:00 AM EDT Intravenous active at 3 0 mL/hr, Intravenous, Continuous, Starting Tue10/23/19 at 0600, Pre-op [facility] Medication administered onsite normal saline flush 0.9 % injection 3 mL [id number] 10/22/2019 03:00:00 PM EDT 3 mL Intravenous aborted 3 mL , Intravenous, Every 8 hours (scheduled), First dose on Tue10/22/19 at 1500, Pre-op
Rapid push positive pressure flushing shall be performed with a 10 cc normal saline syringe to check the PATENCY of a PIV site prior to any infusion therapy initiation unless resistance is met.
[facility] Medication administered onsite lidocaine (ASPERCREME) 4 % 2 patch [id number] 10/18/2019 09:02:45 AM EDT 2 {patch} Transdermal active 2 patch, Banuelos sdermal, Administer over 12 Hours, Every 24 hours as needed, pain, Starting Leslie 10/18/19 at 0902 [facility] Medication administered onsite potassium chloride SA (K-DUR,KLOR-CON) CR tablet 20 mEq [id number] 10/18/2019 05:00:00 AM EDT 20 meq Oral completed 20 mEq, Oral, Once, Leslie 10/18/19 at 0500, For 1 dose [facility] Medication administered onsite Docusate Sodium 100 MG Oral Capsule docusate sodium (C OLACE) capsule 200 mg docusate sodium (COLACE) capsule 200 mg 10/17/2019 09:00:00 AM EDT 200 mg Oral active 200 mg, Oral, 2 time s daily, First dose on Tue10/17/19 at 0900 [facility] Medication administered onsite Patient on [...] Atrial Fibrillation
Target INR: 2 to 3 [facility] Medication administered onsite atorvastatin 20 MG Oral Tablet atorvastatin (LIPITOR) tablet 20 mg atorvastatin (LIPITOR) tablet 20 mg 10/16/2019 09:00:00 PM EDT 20 mg Oral active 20 mg, Oral, Nightly, First dose on Tue10/16/19 at 2100 [facility] Medication administered onsite Docusate Sodium 100 MG Oral Capsule docusate sodium (C OLACE) capsule 100 mg docusate sodium (COLACE) capsule 100 mg 10/16/2019 09:00:00 PM EDT 100 mg Oral aborted 100 mg, Oral, 2 time s daily, First dose on Tue10/16/19 at 2099 [facility] Medication administered onsite ferrous gluconate 324 MG Oral Tablet ferrous gluconate (FERGON) tablet 324 mg ferrous gluconate (FERGON) tablet 324 mg 10/16/2019 09:00:00 PM EDT 324 mg Oral aborted 324 mg, Oral, 2 times daily, First dose on Tue10/16/19 at 2099
separate as far as possible from antacids, take with food
[facility] Medication administered onsite dorzolamide 20 MG/ML Ophthalmic Solution dorzolamide (TRUSOPT) 2 % ophthalmic solution 1 drop dorzolamide (TRUSOPT) 2 % ophthalmic solution 1 drop 0 10/16/2019 09:00:00 PM EDT 1 [drp] active 1 drop, Both Eyes, 2 times daily, First dose on Tue10/16/19 at 2099 [facility] Medication administered onsite Albuterol 0.833 MG/ML / Ipratropium Brom leon 0.167 MG/ML Inhalant Solution ipratropium-albuterol (DUO-NEB) 0.5-2.5 mg/mL nebulizer solution 3 mL ipratropium-albuterol (DUO-NEB) 0.5-2.5 mg/mL nebulizer solution 3 mL 10/16/2019 08:00:00 PM EDT 3 mL Inhalation active 3 mL, Inhalation, 3 times daily, First dose on Tue10/16/19 at 2000 [facility] Medication administered onsite Aspirin 81 MG Chewable Tablet aspirin chewable tablet 81 mg aspirin chewable tablet 81 mg 10/16/2019 06:00:00 PM EDT 81 mg Oral activ e 81 mg, Oral, Daily, First dose on Tue10/16/19 at 1800 [facility] Medication administered onsite DAILY KARAN (THERAGRAN) 1 tablet [id number] 10/16/2019 06:00:00 PM EDT 1 {tbl} Oral active 1 tablet, Oral, Daily, First dose on Tue10/16/19 at 1800 [facility] Medication administered onsite Folic Acid 1 MG Oral Tablet folic acid (FOLVITE) table t 1 mg folic acid (FOLVITE) tablet 1 mg 10/16/2019 06:00:00 PM EDT 1 mg Oral active 1 mg, Oral, Daily, First dose on Tue10/16/19 at 1800 [facility] Medication administered onsite fluticasone (FLONASE) 50 MCG/ACT nasal spray 1 spray [id number] 10/16/2019 06:00:00 PM EDT 1 {spray} Nasal active 1 spray, Nasal, Daily, First dose on Tue10/16/19 at 1800 [facility] Medication administered onsite Tamsulosin hydrochloride 0.4 MG Oral Cap teresa tamsulosin (FLOMAX) 24 hr capsule 0.4 mg tamsulosin (FLOMAX) 24 hr capsule 0.4 mg 10/16/2019 06:00:00 PM EDT 0.4 mg Oral active 0.4 mg, Oral, Daily, Fir st dose on Tue10/16/19 at 1800 [facility] Medication administered onsite Ascorbic Acid 500 MG Oral Tablet ascorbic acid (VITAMI N C) tablet 500 mg ascorbic acid (VITAMIN C) tablet 500 mg 10/16/2019 06:00:00 PM EDT 500 mg Oral active 500 mg, Oral, Daily, First dose on Tue10/16/19 at 1800 [facility] Medication administered onsite Albuterol 0.83 MG/ML Inhalant Solution a lbuterol (PROVENTIL) nebulizer solution 2.5 mg albuterol (PROVENTIL) nebulizer solution 2.5 mg 2019 04:45:00 PM EDT 2.5 mg active 2.5 mg, Nebulization, Every 2 hour PRN, wheezing, shortness of breath, Starting Tue10/16/19 at 1645 [facility] Medication administered onsite Acetaminophen 325 MG Oral Tablet acetaminophen (TYLENO L) 325 MG tablet 650 mg acetaminophen (TYLENOL) 325 MG tablet 650 mg 10/16/2019 04:45:00 PM EDT 650 mg Oral active 650 mg, Or al, Every 4 hours PRN, mild pain (1-3), moderate pain (4-6), headaches, fever, Give for temperature greater than temperature of 101 and call provider, Starting Tue10/16/19 at 1645
"Maximum dose of acetaminophen is 4,000 mg from all sources in 24 hours."
[facility] Medication administered onsite ferrous gluconate 324 MG Oral Tablet Hira roxana Gluconate 324 (38 Fe) MG Oral Tablet (FERGON) Ferrous Gluconate 324 (38 Fe) MG Oral Tablet (FERGON) 10/15/2019 12:00:00 AM EDT active Two [facility] Metoprolol Tartrate 25 MG Oral Tablet Metoprolol Tartrate 12:00:00 AM EDT ORAL active [facility] ([facility]) Ascorbic Acid 500 MG Oral Tablet Ascorbic Acid 10/11/2019 12:00:00 AM EDT ORAL completed [facility] ([facility]) 8 HR Acetaminophen 650 MG Extended Release Oral Tablet Aceta minophen 8 Hour 10/11/2019 12:00:00 AM EDT ORAL active [facility] ([facility]) Docusate Sodium 100 MG Oral Capsule Docusate Sodium 10/11/2019 1 2:00:00 AM EDT ORAL active [facility] ( [facility]) atorvastatin 20 MG Oral Tablet Atorvastatin Calcium 10/11/2019 1 2:00:00 AM EDT ORAL active [facility] ( [facility]) Furosemide 40 MG Oral Tablet Furosemide 10/11/2019 12:00:00 AM EDT ORAL completed [facility] ([facility]) ferrous gluconate 324 MG Oral Tablet Ferrous Gluconate 12:00:00 AM EDT ORAL completed [facility] ([facility]) Folic Acid 1 MG Oral Tablet Folic Acid 10/11/2019 12:00:00 AM EDT ORAL active [facility] ([facility]) Ipratropium Brielle 0.2 MG/ML Inhalant Solution Ipratropium Brielle 10/11/2019 12:00:00 AM EDT active M [facility]ENT ([facility]) Potassium Chloride 20 MEQ Extended Release Oral Tablet Potas sium Chloride ER 10/11/2019 12:00:00 AM EDT ORAL completed [facility] ([facility]) Tamsulosin hydrochloride 0.4 MG Oral Capsule Tamsulosin HCL 10/10/2019 12:00:00 AM EDT ORAL completed [facility] ([facility]) Warfarin Sodium 3 MG Oral Tablet warfarin (COUMADIN) t ablet 3 mg warfarin (COUMADIN) tablet 3 mg 10/02/2019 05:00:00 PM EDT 3 mg Oral active 3 mg, Oral, WAR17, First dose on Tue10/02/19 at 1700, For 1 dose
For administration and preparation considerations, refer to Hazardous Drugs in the Workplace Policy on Intranet.
[facility] Medication administered onsite Furosemide 40 MG Oral Tablet furosemide (LASIX) tablet 40 mg furosemide (LASIX) tablet 40 mg 10/02/2019 05:00:00 PM EDT 40 mg Oral activ e 40 mg, Oral, LOOPBID, First dose on Tue10/02/19 at 1700 [facility] Medication administered onsite Acetaminophen 325 MG Oral Tablet acetaminophen (TYLENO L) 325 MG tablet acetaminophen (TYLENOL) 325 MG tablet 10/02/2019 12:00:00 AM EDT 65 0 mg Oral active Take 2 tablets (650 mg total) by mouth every 4 (four) hours as needed [facility] potassium chloride SA (K-DUR,KLOR-CON) 20 MEQ tablet [id number] 10/02/2019 12:00:00 AM EDT 20 meq Oral aborted Take 1 tablet (20 mEq total) by mouth 2 (two) times a day Take with Lasix [facility] Warfarin Sodium 3 MG Oral Tablet warfarin (COUMADIN) 3 MG tablet warfarin (COUMADIN) 3 MG tablet 10/02/2019 12:00:00 AM EDT 3 mg Oral aborted Take 1 tablet (3 mg total) by mouth daily Until dose adjusted [facility] Warfarin Sodium 3 MG Oral Tablet warfarin (COUMADIN) t ablet 3 mg warfarin (COUMADIN) tablet 3 mg 10/01/2019 05:00:00 PM EDT 3 mg Oral completed 3 mg, Oral, WAR17, First dose on 10/01/19 at 1700, For 1 dose
For administration and preparation considerations, refer to Hazardous Drugs in the Workplace Policy on Intranet.
[facility] Medication administered onsite Warfarin Sodium 2 MG Oral Tablet warfarin (COUMADIN) t ablet 2 mg warfarin (COUMADIN) tablet 2 mg 09/30/2019 05:00:00 PM EDT 2 mg Oral completed 2 mg, Oral, 17, First dose on 09/30/19 at 1700, For 1 dose
For administration and preparation considerations, refer to Hazardous Drugs in the Workplace Policy on Intranet.
[facility] Medication administered onsite atorvastatin 20 MG Oral Tablet atorvastatin (LIPITOR) tablet 20 mg atorvastatin (LIPITOR) tablet 20 mg 09/29/2019 09:00:00 PM EDT 20 mg Oral active 20 mg, Oral, Nightly, First dose on 09/29/19 at 2100 [facility] Medication administered onsite Warfarin Sodium 3 MG Oral Tablet warfarin (COUMADIN) t ablet 3 mg warfarin (COUMADIN) tablet 3 mg 09/29/2019 05:00:00 PM EDT 3 mg Oral completed 3 mg, Oral, , First dose on 09/29/19 at 1700, For 1 dose
For administration and preparation considerations, refer to Hazardous Drugs in the Workplace Policy on Intranet.
[facility] Medication administered onsite Patient on [...] Atrial Fibrillation
Target INR: 2 to 3 [facility] Medication administered onsite Alprazolam 0.25 MG Oral Tablet ALPRAZolam (XANAX) tabl et 0.25 mg ALPRAZolam (XANAX) tablet 0.25 mg 09/29/2019 09:32:07 AM EDT 0.25 mg Oral active 0.25 mg, Oral, 3 times daily PRN, anxiety, Starting 09/29/19 at 0932, For 7 days [facility] Medication administered onsite Aspirin 81 MG Chewable Tablet aspirin chewable tablet 81 mg aspirin chewable tablet 81 mg 09/29/2019 09:00:00 AM EDT 81 mg Oral activ e 81 mg, Oral, Daily, First dose on 09/29/19 at 0900, Admission - Sign & Hold [facility] Medication administered onsite furosemide (LASIX) injection 40 mg [id number] 09/29/2019 09:00:00 AM EDT 40 mg Intravenous aborted 40 mg, I ntravenous, LOOPBID, First dose on 09/29/19 at 0900, Admission - Sign & Hold [facility] Medication administered onsite Tamsulosin hydrochloride 0.4 MG Oral Cap teresa tamsulosin (FLOMAX) 24 hr capsule 0.4 mg tamsulosin (FLOMAX) 24 hr capsule 0.4 mg 09/29/2019 09:00:00 AM EDT 0.4 mg Oral active 0.4 mg, Or al, Daily, First dose on 09/29/19 at 0900, Admission - Sign & Hold [facility] Medication administered onsite Albuterol 0.833 MG/ML / Ipratropium Brom leon 0.167 MG/ML Inhalant Solution ipratropium-albuterol (DUO-NEB) 0.5-2.5 mg/mL nebulizer solution 3 mL ipratropium-albuterol (DUO-NEB) 0.5-2.5 mg/mL nebulizer solution 3 mL 09/29/2019 08:00:00 AM EDT 3 mL Inhalation active 3 mL, Inhalation, 3 times daily, First dose on 09/29/19 at 0800, Admission - Sign & Hold [facility] Medication administered onsite normal saline flush 0.9 % injection 3 mL [id number] 09/29/2019 06:00:00 AM EDT 3 mL Intravenous active 3 mL , Intravenous, PROTOCOL, First dose on 09/29/19 at 0600, Admission - Sign & Hold
flush per protocol, D/C Main IV fluid if appropriate
[facility] Medication administered onsite normal saline flush 0.9 % injection 3 mL [id number] 09/29/2019 06:00:00 AM EDT 3 mL Intravenous aborted 3 mL , Intravenous, PROTOCOL, First dose on 09/29/19 at 0600, Admission - Sign & Hold
flush per protocol, D/C Main IV fluid if appropriate
[facility] Medication administered onsite Magnesium Hydroxide 80 MG/ML Oral Suspen rosy magnesium hydroxide (MILK OF MAGNESIA) 400 MG/5ML suspension 30 mL magnesium hydroxide (MILK OF MAGNESIA) 4 00 MG/5ML suspension 30 mL 09/29/2019 12:00:00 AM EDT 30 mL Oral active 30 mL, Oral, Daily PRN, constipation, Starting 09/29/19 at 0000, Admission - Sign & Hold
If senna-docusate is not effective
[facility] Medication administered onsite Docusate Sodium 50 MG / sennosides, RETIREMENT 8.6 MG Oral Tablet senna-docusate (PERICOLACE) 8.6-50 MG 2 tablet senna-docusate (PERICOLACE) 8.6-50 MG 2 tablet 09/28/2019 11:40:00 PM EDT 2 {tbl} Oral active 2 tablet, Oral, Nightly, First dose on Tue09/28/19 at 2340, Admission - Sign & Hold
hold for loose stools
[facility] Medication administered onsite heparin (porcine) injection 5,000 Units [id number] 09/28/19 11:40:00 PM EDT 5000 U Subcutaneous active 5,000 Units , Subcutaneous, Every 8 hours (scheduled), First dose on Tue09/28/19 at 2340, Admission - Sign & Hold
If platelet count is less than 90,000 or hematocrit is less than 25, or if there is a 5 point decrease in hematocrit, do not give the dose and call physician/designee.
[facility] Medication administered onsite Metoprolol Tartrate 25 MG Oral Tablet me toprolol tartrate (LOPRESSOR) tablet 12.5 mg metoprolol tartrate (LOPRESSOR) tablet 12.5 mg 11:40:00 PM EDT 12.5 mg Oral active 12.5 mg, Oral, 2 times daily, First dose on Tue09/28/19 at 2340, Admission - Sign & Hold
Hold for HR <60, SBP <105
[facility] Medication administered onsite Albuterol 0.83 MG/ML Inhalant Solution a lbuterol (PROVENTIL) nebulizer solution 2.5 mg albuterol (PROVENTIL) nebulizer solution 2.5 mg 2019 11:23:50 PM EDT 2.5 mg active 2.5 mg, Nebulization, Every 2 hour PRN, wheezing, shortness of breath, Starting Tue09/28/19 at 2323, Admission - Sign & Hold [facility] Medication administered onsite Mineral Oil 1000 MG/ML Enema mineral oil enema 1 enema mineral oil enema 1 enema 09/28/2019 11:23:49 PM EDT 1 {enema} Rectal active 1 enema, Rectal, Daily PRN, constipation, unrelieved by MOM/bisacodyl/senna-docusate, Starting Tue09/28/19 at 2323, Admission - Sign & Hold
hold for loose stools
[facility] Medication administered onsite Acetaminophen 325 [...] mg from all sources in 24 hours."
[facility] Medication administered onsite Bisacodyl 10 MG Rectal Suppository bisacodyl (DULCOLAX ) suppository 10 mg bisacodyl (DULCOLAX) suppository 10 mg 09/28/2019 11:23:49 PM EDT 10 mg Rectal active 10 mg, Rectal, Daily PRN, constipation, Starting Tue09/28/19 at 2323, Admission - Sign & Hold
Hold for BM.If senna-docusate and milk of magnesia are not effective
[facility] Medication administered onsite 2 ML Metoclopramide 5 MG/ML Prefilled Sy ringe metoclopramide (REGLAN) injection 10 mg metoclopramide (REGLAN) injection 10 mg 09/28/2019 11:23:49 PM E DT 10 mg Intravenous active 10 mg, I ntravenous, Every 6 hours PRN, for Nausea/Vomiting not relieved by zofran, Starting Tue09/28/19 at 2323, Admission - Sign & Hold [facility] Medication administered onsite ondansetron (ZOFRAN) injection 4 mg [id number] 09/28/2019 11:23:4 9 PM EDT 4 mg Intravenous active 4 mg, In travenous, Every 4 hours PRN, nausea, vomiting, Starting Tue09/28/19 at 2323, Admission - Sign & Hold [facility] Medication administered onsite Ascorbic Acid 500 MG Oral Tablet ascorbic acid (VITAMI N C) 500 MG tablet ascorbic acid (VITAMIN C) 500 MG tablet 09/28/2019 12:00:00 AM EDT 500 mg Oral aborted Take 1 tablet (500 m g total) by mouth daily [facility] Docusate Sodium 100 MG Oral Capsule docusate sodium (, DSS,) 100 MG CAPS docusate sodium (,DSS,) 100 MG CAPS 09/28/2019 12:00:00 AM EDT 100 mg Oral aborted Take 1 capsule (100 mg total) by mouth 2 (two) times a day [facility] Metoprolol Tartrate 25 MG Oral Tablet me toprolol tartrate (LOPRESSOR) 25 MG tablet metoprolol tartrate (LOPRESSOR) 25 MG tablet 09/28/2019 12:0 0:00 AM EDT 12.5 mg Oral active Take 0.5 tablets (12.5 mg total) by mouth 2 (two) times a day [facility] Albuterol 0.833 MG/ML / Ipratropium Brom leon 0.167 MG/ML Inhalant Solution ipratropium-albuterol (DUO-NEB) 0.5-2.5 mg/mL nebulizer ipratropium-albuterol (DUO-NEB) 0.5-2.5 mg/mL nebulizer 09/28/2019 12:00:00 AM EDT 3 mL Inhalation aborted Inhale 3 mL 3 (three) anupama es a day [facility] ferrous gluconate 324 MG Oral Tablet ferrous gluconate (FERGON) 324 MG tablet ferrous gluconate (FERGON) 324 MG tablet 09/28/2019 12:00:00 AM EDT 324 mg Oral active Take 1 tablet (324 m g total) by mouth 2 (two) times a day [facility] Folic Acid 1 MG Oral Tablet folic acid (FOLVITE) 1 MG tablet folic acid (FOLVITE) 1 MG tablet 09/28/2019 12:00:00 AM EDT 1 mg Oral active Take 1 tablet (1 mg total) by mouth daily [facility] potassium chloride SA (K-DUR,KLOR-CON) 10 MEQ tablet [id number] 09/28/2019 12:00:00 AM EDT 10 meq Oral aborted Take 1 tablet (10 mEq total) by mouth 2 (two) times a day Take with Lasix [facility] Warfarin Sodium 2 MG Oral Tablet warfarin (COUMADIN) 2 MG tablet warfarin (COUMADIN) 2 MG tablet 09/28/2019 12:00:00 AM EDT 2 mg Oral aborted Take 1 tablet (2 mg total) by mouth daily [facility] Furosemide 40 MG Oral Tablet furosemide (LASIX) 40 MG tablet furosemide (LASIX) 40 MG tablet 09/28/2019 12:00:00 AM EDT 40 mg Oral abort ed Take 1 tablet (40 mg total) by mouth 2 (two) times a day [facility] Folic Acid 1 MG Oral Tablet Folic Acid 1 MG Oral Table t (FOLVITE) Folic Acid 1 MG Oral Tablet (FOLVITE) 09/28/2019 12:00:00 AM EDT Oral active Take by mouth [facility] Warfarin Sodium 1 MG Oral Tablet warfarin (COUMADIN) t ablet 1 mg warfarin (COUMADIN) tablet 1 mg 09/27/2019 05:00:00 PM EDT 1 mg Oral completed 1 mg, Oral, WAR17, First dose on Tue09/27/19 at 1700, For 1 dose
For administration and preparation considerations, refer to Hazardous Drugs in the Workplace Policy on Intranet.
[facility] Medication administered onsite furosemide (LASIX) injection 40 mg [id number] 09/27/2019 09:00:00 AM EDT 40 mg Intravenous active 40 mg, I ntravenous, LOOPBID, First dose on Tue09/27/19 at 0900 [facility] Medication administered onsite magnesium citrate solution 148 mL [id number] 09/26/2019 03:00:00 PM EDT 148 mL Oral completed 148 mL, Or al, Once, Tue09/26/19 at 1500, For 1 dose
hold for loose stools
[facility] Medication administered onsite Metoprolol Tartrate 25 MG Oral Tablet me toprolol tartrate (LOPRESSOR) tablet 12.5 mg metoprolol tartrate (LOPRESSOR) tablet 12.5 mg 11:00:00 AM EDT 12.5 mg Oral active 12.5 mg, Oral, 2 times daily, First dose on Tue09/26/19 at 1100
Hold for HR <60, SBP <105
[facility] Medication administered onsite Furosemide 40 MG Oral Tablet furosemide (LASIX) tablet 40 mg furosemide (LASIX) tablet 40 mg 09/26/2019 11:00:00 AM EDT 40 mg Oral abort ed 40 mg, Oral, Every morning, First dose on Tue09/26/19 at 1100 [facility] Medication administered onsite Warfarin Sodium 3 MG Oral Tablet warfarin (COUMADIN) t ablet 3 mg warfarin (COUMADIN) tablet 3 mg 09/25/2019 05:00:00 PM EDT 3 mg Oral completed 3 mg, Oral, WAR17, First dose on Tue09/25/19 at 1700, For 1 dose
For administration and preparation considerations, refer to Hazardous Drugs in the Workplace Policy on Intranet.
[facility] Medication administered onsite POLYETHYLENE GLYCOL 3350 142 MG/ML Oral Solution polyethylene glycol (GLYCOLAX) packet 17 g polyethylene glycol (GLYCOLAX) packet 17 g 09/25/2019 09:00:00 AM EDT 17 g Oral active 17 g, Or al, Daily, First dose on Tue09/25/19 at 0900, Post-op
Start 2nd POD and continue until result.
[facility] Medication administered onsite DAILY KARAN (THERAGRAN) 1 tablet [id number] 09/25/2019 09:00:00 AM EDT 1 {tbl} Oral active 1 tablet, Oral, Daily, First dose on Tue09/25/19 at 0900, Post-op [facility] Medication administered onsite Folic Acid 1 MG Oral Tablet folic acid (FOLVITE) table t 1 mg folic acid (FOLVITE) tablet 1 mg 09/25/2019 09:00:00 AM EDT 1 mg Oral active 1 mg, Oral, Daily, First dose on Tue09/25/19 at 0900, Post-op [facility] Medication administered onsite Ascorbic Acid 500 MG Oral Tablet ascorbic acid (VITAMI N C) tablet 500 mg ascorbic acid (VITAMIN C) tablet 500 mg 09/25/2019 09:00:00 AM EDT 500 mg Oral active 500 mg, Oral, Daily, First dose on Tue09/25/19 at 0900, Post-op [facility] Medication administered onsite normal saline flush 0.9 % injection 3 mL [id number] 09/24/2019 10:00:00 PM EDT 3 mL Intravenous active 3 mL , Intravenous, PROTOCOL, First dose on Tue09/24/19 at 2200, Post-op
May convert IV to a saline lock when taking in good p.o. intake (minimally 600 mL).
[facility] Medication administered onsite ferrous gluconate 324 MG Oral Tablet ferrous gluconate (FERGON) tablet 324 mg ferrous gluconate (FERGON) tablet 324 mg 09/24/2019 09:00:00 PM EDT 324 mg Oral active 324 mg, Oral, 2 times daily, First dose on Tue09/24/19 at 2100, Post-op
Start when taking good p.o. intake.
[facility] Medication administered onsite Docusate Sodium 100 MG Oral Capsule docusate sodium (C OLACE) capsule 100 mg docusate sodium (COLACE) capsule 100 mg 09/24/2019 09:00:00 PM EDT 100 mg Oral active 100 mg, Oral, 2 times daily, First dose on Tue09/24/19 at 2100, Post-op
hold for loose stools
[facility] Medication administered onsite Warfarin Sodium 2 MG Oral Tablet warfarin (COUMADIN) t ablet 4 mg warfarin (COUMADIN) tablet 4 mg 09/24/2019 05:00:00 PM EDT 4 mg Oral completed 4 mg, Oral, WAR17, First dose on Tue09/24/19 at 1700, For 1 dose
For administration and preparation considerations, refer to Hazardous Drugs in the Workplace Policy on Intranet.
[facility] Medication administered onsite heparin (porcine) injection 5,000 Units [id number] 09/24/19 05:00:00 PM EDT 5000 U Subcutaneous active 5,000 Units , Subcutaneous, Every 8 hours (scheduled), First dose on Tue09/24/19 at 1700, Post-op
Hold for platelet count less than 90,000, INR greater than or equal to 1.7 if receiving coumadin therapy
[facility] Medication administered onsite acetaminophen (TYLENOL) [...] Tue09/24/19 at 1621, Post-op [Order 2 End] [facility] Medication administered onsite potassium chloride SA (K-DUR,KLOR-CON) CR tablet 10 mEq 5528 09/24/2019 04:20:59 PM EDT 10 meq Oral active 10 mEq, Oral, As needed, Serum K+ 3.9-4.1, Starting Tue09/24/19 at 1620, Post-op
For serum creatinine (SCR) greater than 1.5
[facility] Medication administered onsite magnesium sulfate 1 g in dextrose 5% infusion (premix) [id number] [id number] 09/24/2019 04:20:58 PM EDT 1 g Intravenous active 1 g, Intravenous, at 200 mL/hr, As needed, serum Mg 1.9-2.1, Starting Tue09/24/19 at 1620, Post-op
Give 1 grams magnesium sulfate IV x 1 run over 1 hourFor serum creatinine (SCR) greater than 1.5
[facility] Medication administered onsite 50 ML [...] hour.For serum creatinine (SCR) greater than 1.5
[facility] Medication administered onsite potassium chloride SA (K-DUR,KLOR-CON) CR tablet 20 mEq 5528 09/24/2019 04:20:58 PM EDT 20 meq Oral active 20 mEq, Oral, As needed, Serum K+ 3.9-4.1, Starting Tue09/24/19 at 1620, Post-op
For serum creatinine (SCR) 0.8 to 1.5
[facility] Medication administered onsite potassium chloride SA (K-DUR,KLOR-CON) CR tablet 40 mEq 5528 09/24/2019 04:20:58 PM EDT 40 meq Oral active 40 mEq, Oral, As needed, Serum K+ 3.5-3.8, Starting Tue09/24/19 at 1620, Post-op
For serum creatinine (SCR) 0.8 to 1.5
[facility] Medication administered onsite potassium chloride SA (K-DUR,KLOR-CON) CR tablet 20 mEq 5528 9-359-09/24/2019 04:20:58 PM EDT 20 meq Oral active 20 mEq, Oral, As needed, Serum K+ 3.5-3.8, Starting Tue09/24/19 at 1620, Post-op
For serum creatinine (SCR) greater than 1.5
[facility] Medication administered onsite 50 ML [...] hour.For serum creatinine (SCR) 0.8 to 1.5
[facility] Medication administered onsite 50 ML [...] each.For serum creatinine (SCR) 0.8 to 1.5
[facility] Medication administered onsite Nitroglycerin 0.4 MG Sublingual Tablet n itroglycerin (NITROSTAT) SL tablet 0.4 mg nitroglycerin (NITROSTAT) SL tablet 0.4 mg 09/24/2019 04:20:58 P M EDT 0.4 mg Sublingual active 0.4 mg, S ublingual, Every 5 min PRN, chest pain, Starting Tue09/24/19 at 1620, Post-op
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 Notify MD/PA/EYE SPECIALIST.
[facility] Medication administered onsite ondansetron (ZOFRAN) injection 4 mg [id number] 09/24/2019 04:20:5 8 PM EDT 4 mg Intravenous active 4 mg, In travenous, Every 6 hours PRN, nausea, vomiting, Starting Tue09/24/19 at 1620, Post-op
If no response in 15-30 minutes, give metoclopramide 10 mg IV x 1 then q6h prn N/V.
[facility] Medication administered onsite Bisacodyl 10 MG Rectal Suppository bisacodyl (DULCOLAX ) suppository 10 mg bisacodyl (DULCOLAX) suppository 10 mg 09/24/2019 04:20:57 PM EDT 10 mg Rectal active 10 mg, Rectal, Daily PRN, constipation, Starting Tue09/24/19 at 1620, Post-op
If polyethylene glycol not effective.
[facility] Medication administered onsite Aluminum Hydroxide 64 MG/ML Oral Suspens ion aluminum hydroxide (ALTERNAGEL) suspension 15 mL aluminum hydroxide (ALTERNAGEL) suspension 15 mL 09/23 04:20:57 PM EDT 15 mL Oral active 15 mL, Oral, Every 4 hours PRN, for indigestion/ gas, Starting Tue09/24/19 at 1620, Post-op [facility] Medication administered onsite Albuterol 0.83 MG/ML Inhalant Solution a lbuterol (PROVENTIL) nebulizer solution 2.5 mg albuterol (PROVENTIL) nebulizer solution 2.5 mg 2019 04:20:57 PM EDT 2.5 mg active 2.5 mg, Nebulization, RT every 2 hours as needed, wheezing, shortness of breath, Starting Tue09/24/19 at 1620, Post-op [facility] Medication administered onsite Warfarin Sodium 2 MG Oral Tablet warfarin (COUMADIN) t ablet 3 mg warfarin (COUMADIN) tablet 3 mg 09/23/2019 05:00:00 PM EDT 3 mg Oral completed 3 mg, Oral, , First dose on 09/23/19 at 1700, For 1 dose
For administration and preparation considerations, refer to Hazardous Drugs in the Workplace Policy on Intranet.
[facility] Medication administered onsite furosemide (LASIX) infusion 500 mg/50 ML 09/23/2019 10 :00:00 AM EDT 2.5 mg/h Intravenous aborted 2.5 mg/h r (0.25 mL/hr), Intravenous, Continuous, Starting [place] 09/23/19 at 1000, Until Tu09/25/19 at 1106, at 0.25 mL/hr [facility] Medication administered onsite furosemide (LASIX) injection 40 mg [id number] 09/23/2019 09:00:00 AM EDT 40 mg Intravenous completed 40 mg, I ntravenous, Once, [place] 09/23/19 at 0900, For 1 dose [facility] Medication administered onsite albumin human 25 % bottle 12.5 g [id number] 09/23/2019 09:00:00 A M EDT 12.5 g Intravenous completed Systolic Hypotension 12.5 g, Intravenous, Once, Indications: Systolic Hypotension, [place] 09/23/19 at 0900, For 1 dose [facility] Systolic Hypotension Medication administered onsite furosemide (LASIX) injection 20 mg [id number] 09/22/2019 06:00:00 PM EDT 20 mg Intravenous completed 20 mg, I ntravenous, Once, [facility] 09/22/19 at 1800, For 1 dose [facility] Medication administered onsite Warfarin Sodium 2 MG Oral Tablet warfarin (COUMADIN) t ablet 2 mg warfarin (COUMADIN) tablet 2 mg 09/22/2019 05:00:00 PM EDT 2 mg Oral completed 2 mg, Oral, , First dose on 09/22/19 at 1700, For 1 dose
For administration and preparation considerations, refer to Hazardous Drugs in the Workplace Policy on Intranet.
[facility] Medication administered onsite atorvastatin 80 MG Oral Tablet atorvastatin (LIPITOR) tablet 80 mg atorvastatin (LIPITOR) tablet 80 mg 09/22/2019 09:00:00 AM EDT 80 mg Oral active 80 mg, Oral, Daily, First dose on 09/22/19 at 0900 [facility] Medication administered onsite POLYETHYLENE GLYCOL 3350 142 MG/ML Oral Solution polyethylene glycol (GLYCOLAX) packet 17 g polyethylene glycol (GLYCOLAX) packet 17 g 09/22/2019 09:00:00 AM EDT 17 g Oral aborted 17 g, Or al, Daily, First dose on 09/22/19 at 0900, PACU & Post-op
Starting 2nd POD, give every day until result
[facility] Medication administered onsite Metoprolol Tartrate 25 MG Oral Tablet me toprolol tartrate (LOPRESSOR) tablet 12.5 mg metoprolol tartrate (LOPRESSOR) tablet 12.5 mg 09:00:00 AM EDT 12.5 mg Oral aborted 12.5 mg, Oral, 2 times daily, First dose on 09/22/19 at 0900
Hold for SBP < 100 or HR < 60.
[facility] Medication administered onsite furosemide (LASIX) injection 20 mg [id number] 09/22/2019 08:00:00 AM EDT 20 mg Intravenous completed 20 mg, I ntravenous, Once, 09/22/19 at 0800, For 1 dose [facility] Medication administered onsite ferrous gluconate 324 MG Oral Tablet ferrous gluconate (FERGON) tablet 324 mg ferrous gluconate (FERGON) tablet 324 mg 09/22/2019 07:00:00 AM EDT 324 mg Oral aborted 324 mg, Oral, 2 times daily before meals, First dose on 09/22/19 at 0700, PACU & Post-op
Start POD #2
[facility] Medication administered onsite albumin human 5 % bottle 25 g [id number] 09/21/2019 07:00:00 PM EDT 25 g Intravenous completed Hypotension 25 g, Intrav enous, Once, Indications: Hypotension, 09/21/19 at 1900, For 1 dose [facility] Hypotension Medication administered onsite Warfarin Sodium 2 MG Oral Tablet warfarin (COUMADIN) t ablet 2 mg warfarin (COUMADIN) tablet 2 mg 09/21/2019 05:00:00 PM EDT 2 mg Oral completed 2 mg, Oral, WAR17, First dose on Tue09/21/19 at 1700, For 1 dose
For administration and preparation considerations, refer to Hazardous Drugs in the Workplace Policy on Intranet.
[facility] Medication administered onsite albumin human 25 % bottle 12.5 g [id number] 09/21/2019 05:00:00 P M EDT 12.5 g Intravenous completed Hypotension 12.5 g , Intravenous, Once, Indications: Hypotension, Tue09/21/19 at 1700, For 1 dose [facility] Hypotension Medication administered onsite albumin human 5 % bottle 12.5 g [id number] 09/21/2019 05:00:00 PM EDT 12.5 g Intravenous completed Hypotension 12.5 g, Intr avenous, Once, Indications: Hypotension, Tue09/21/19 at 1700, For 1 dose [facility] Hypotension Medication administered onsite Mupirocin 0.02 MG/MG Topical Ointment mupirocin (BACTR OBAN) 2 % ointment mupirocin (BACTROBAN) 2 % ointment 09/21/2019 02:00:00 PM EDT Nasal completed Nasal, 2 times daily , 8 doses, First dose on Tue09/21/19 at 1400, Last dose on Tue09/24/19 at 2100 [facility] Medication administered onsite dorzolamide-timolol Mal PF (COSOPT) 22.3-6.8 MG/ML oph thalmic solution 1 drop [id number] 09/21/2019 02:00:00 PM EDT 1 [drp] active 1 drop, Both Eyes, 2 times daily, First dose on Tue09/21/19 at 1400 [facility] Medication administered onsite Aspirin 81 MG Delayed Release Oral Tablet aspirin EC t ablet 81 mg aspirin EC tablet 81 mg 09/21/2019 09:00:00 AM EDT 81 mg Oral activ e 81 mg, Oral, Daily, First dose on Tue09/21/19 at 0900
Hold for platelet count less than 90,000.If OG tube in place, give non-enteric coated aspirin.
[facility] Medication administered onsite Tamsulosin hydrochloride 0.4 MG Oral Cap teresa tamsulosin (FLOMAX) 24 hr capsule 0.4 mg tamsulosin (FLOMAX) 24 hr capsule 0.4 mg 09/21/2019 09:00:00 AM EDT 0.4 mg Oral active 0.4 mg, Oral, Daily, Fir st dose on Tue09/21/19 at 0900 [facility] Medication administered onsite Folic Acid 1 MG Oral Tablet folic acid (FOLVITE) table t 1 mg folic acid (FOLVITE) tablet 1 mg 09/21/2019 09:00:00 AM EDT 1 mg Oral aborted 1 mg, Oral, Daily, First dose on Tue09/21/19 at 0900, PACU & Post-op
Give PO/OG.Start first POD
[facility] Medication administered onsite Docusate Sodium 100 MG Oral Capsule docusate sodium (C OLACE) capsule 100 mg docusate sodium (COLACE) capsule 100 mg 09/21/2019 09:00:00 AM EDT 100 mg Oral aborted 100 mg, Oral, Daily, First dose on Tue09/21/19 at 0900, PACU & Post-op
Give PO/OG.Start first POD
[facility] Medication administered onsite Ascorbic Acid 500 MG Oral Tablet ascorbic acid (VITAMI N C) tablet 500 mg ascorbic acid (VITAMIN C) tablet 500 mg 09/21/2019 09:00:00 AM EDT 500 mg Oral aborted 500 mg, Oral, Daily, First dose on Tue09/21/19 at 0900, PACU & Post-op
Give PO/OG.Start first POD.
[facility] Medication administered onsite Insulin Lispro [...] mealor NPO70- 1202 units 1 units 0 [id number] units 2 units 0 [id number]- 2204 units 2 units 1 [id number] units 3 units 1 - 3205 units 3 units 2 [id number] units 4 units 2 - 4206 units 4 units 3 units>420 call MD6 units 5 units 3 unitsTest glucose wi thin 30 minutes of insulin administration.Administer insulin within 15 minutes (before or after) of the patient starting to eat.For patients that are NPO, use theNPO (correction) scale to cover POC glucose at 08:00, 12:00, 17:00.
[facility] Medication administered onsite Albuterol 0.833 MG/ML / Ipratropium Brom leon 0.167 MG/ML Inhalant Solution ipratropium-albuterol (DUO-NEB) 0.5-2.5 mg/mL nebulizer solution 3 mL ipratropium-albuterol (DUO-NEB) 0.5-2.5 mg/mL nebulizer solution 3 mL 09/21/2019 08:00:00 AM EDT 3 mL Inhalation active 3 mL, Inhalation, 3 times daily, First dose on Tue09/21/19 at 0800 [facility] Medication administered onsite albumin human 5 % bottle 12.5 g [id number] 09/21/2019 07:00:00 AM EDT 12.5 g Intravenous completed Hypotension 12.5 g, Intr avenous, Once, Indications: Hypotension, Tue09/21/19 at 0700, For 1 dose [facility] Hypotension Medication administered onsite Patient [...] Atrial Fibrillation
Target INR: 2 to 3 [facility] Medication administered onsite albumin human 5 % bottle [id number] 09/21/2019 06:17:11 AM EDT completed Starting Tue09/21/19 at 0617, For 1 dose
Beny Bacon: cabinet override
[facility] Medication administered onsite albumin human 5 % bottle 12.5 g [id number] 09/21/2019 06:00:00 AM EDT 12.5 g Intravenous completed Hypotension 12.5 g, Intr avenous, Once, Indications: Hypotension, Tue09/21/19 at 0600, For 1 dose [facility] Hypotension Medication administered onsite normal saline flush 0.9 % injection 3 mL [id number] 09/21/2019 06:00:00 AM EDT 3 mL Intravenous aborted 3 mL , Intravenous, PROTOCOL, First dose on Tue09/21/19 at 0600, PACU & Post-op
May convert to saline lock with minimally 600 ml PO intake on first POD; prior to transfer
[facility] Medication administered onsite heparin (porcine) injection 5,000 Units [id number] 09/21/19 06:00:00 AM EDT 5000 U Subcutaneous aborted 5,000 Units , Subcutaneous, Every 8 hours (scheduled), First dose on Tue09/21/19 at 0600, PACU & Post-op
Start first POD. Hold for platelet count less than 90,000, INR greater than or equal to 1.7 if receiving coumadin therapy.
[facility] Medication administered onsite cefazolin (ANCEF) [...] this medication through syringe adapter set ref [id number]. Flush line after use
[facility] Perioperative Pharmacoprophylaxis Medication administered onsite milrinone (PRIMACOR) infusion 20 mg/100 mL [id number] 09/20/2019 10:00:00 PM EDT 0.125 ug/kg/min Intravenous aborted 0.125 mcg/kg/min 101.2 kg (3.795 mL/hr, rounded to 3.8 mL/hr), Intravenous, at 3.8 mL/hr, Continuous, Starting [place] 09/20/19 at 2200
This is a "Triggered Filled Infusion" and is automatically sent based on the current rate documented in the flow sheets.Infuse this medication only through single port tubing ([employer] Infusion Set ref [id number]). Medication and tubing is to be discarded if infusion off for 4 hours.
[facility] Medication administered onsite Famotidine 20 MG Oral Tablet famotidine (PEPCID) table t 40 mg famotidine (PEPCID) tablet 40 mg 09/20/2019 09:00:00 PM EDT 40 mg Oral active 40 mg, Oral, Daily, First dose on [place] 09/20/19 at 2100
Start after extubation
[facility] Medication administered onsite norepinephrine bitartrate (LEVOPHED) 4 m g in sodium chloride (NS) 0.9 % 250 mL infusion 09/20/2019 09:00:00 PM EDT Intravenous ab orted PACU & Post-op, 0-6 mcg/min (0-22.5 mL/hr), Intravenous, Continuous, Starting [place] 09/20/19 at 2100, Until 09/24/19 at 1621, at 0-22.5 mL/hr [facility] Medication administered onsite atorvastatin 20 MG Oral Tablet atorvastatin (LIPITOR) tablet 20 mg atorvastatin (LIPITOR) tablet 20 mg 09/20/2019 09:00:00 PM EDT 20 mg Oral aborted 20 mg, Oral, Daily, First dose on [place] 09/20/19 at 2100 [facility] Medication administered onsite propofol (DIPRIVAN) infusion 10 mg/mL [id number] 09/20/2019 09:00 :00 PM EDT Intravenous completed [...] OFF 2 HOURS AFTER ADMISSION TO CVICU
[facility] Medication administered onsite Dexmedetomidine HCl 400 mcg in sodium chloride (NS) 0.9 % 10 0 mL infusion 09/20/2019 09:00:00 PM EDT Intravenous aborted Post-op, 0.2-0.7 mcg/kg/hr 101.2 kg (5.06-17.71 mL/hr, rounded to 5.1-17.7 mL/hr), Intravenous, Continuous, Starting [place] 09/20/19 at 2100, Until Tue09/24/19 at 1621, at 5.1-17.7 mL/hr [facility] Medication administered onsite Magnesium Chloride 0.73035 MEQ/ML / Pota ssium Chloride 0.0497 MEQ/ML [...] intake is 2 liters in 24 hours
[facility] Medication administered onsite Vitamin B 12 1 MG/ML Injectable Solution cyanocobalami n injection 1,000 mcg cyanocobalamin injection 1,000 mcg 09/20/2019 09:00:00 PM EDT 10 00 ug Subcutaneous completed 1,000 mcg, S ubcutaneous, Once, [place] 09/20/19 at 2100, For 1 dose, PACU & Post-op
DEEP SUBCUTANEOUS
[facility] Medication administered onsite Famotidine (PEPCID) injection 20 mg [id number] 09/20/2019 09:00:0 0 PM EDT 20 mg Intravenous aborted 20 mg, I ntravenous, Every 12 hours (scheduled), First dose on [place] 09/20/19 at 2100, PACU & Post-op
D/C after extubation
[facility] Medication administered onsite ondansetron (ZOFRAN) injection 4 mg [id number] 09/20/2019 07:46:1 7 PM EDT 4 mg Intravenous aborted 4 mg, In travenous, Every 6 hours PRN, nausea, vomiting, Starting Leslie 09/20/19 at 1946, PACU & Post-op [facility] Medication administered onsite potassium chloride [...] over 1 hour through a central line
[facility] Medication administered onsite HYDROmorphone (DILAUDID) injection 0.2 mg [id number] 09/20/2019 07:46:16 PM EDT 0.2 mg Intravenous aborted 0.2 mg, Intravenous, Every 5 min PRN, severe pain (7-10), Starting Leslie 09/20/19 at 1946, For 7 days
Indicated for patients greater than 75 years of age and/or frail. FOR EXTUBATED PATIENTS ONLY. DISCONTINUE 6 HOURS POST EXTUBATION.Maximum dose 1 mg.
[facility] Medication administered onsite HYDROmorphone (DILAUDID) injection 0.2 mg [id number] 09/20/2019 07:46:16 PM EDT 0.2 mg Intravenous aborted 0.2 mg, Intravenous, Every 10 min PRN, severe pain (7-10), Starting Leslie 09/20/19 at 1946, For 7 days, PACU & Post- op
Indicated for patients greater than 75 years of age and/or frail.FOR INTUBATED PATIENTS ONLY. DISCONTINUE POST EXTUBATION.Maximum dose 2 mg.
[facility] Medication administered onsite fentaNYL Citrate (PF) (SUBLIMAZE) injection 25 mcg [id number] 09/20/2019 07:46:16 PM EDT 25 ug Intravenous aborted 25 mcg, Intravenous, Every 10 min PRN, moderate pain (4-6), Starting Leslie 09/20/19 at 1946, For 7 days, PACU & Post-op
Maximum 10 doses in a 24-hour period. DISCONTINUE 6 HOURS POST EXTUBATION
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
Once on admission. Hold for platelets < 90,000.
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
Hold for HR < 60, or SBP <100
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 [facility] albuterol COMMON CANISTER (PROVENTIL HFA;VENTOLIN HFA) inhaler 2 puff [id number] 09/17/2019 11:00:00 AM EDT 2 {puff} Inhalation [...] be repeated before and after each use.
[facility] Medication administered onsite iopamidol (ISOVUE-370) 76 % [id number] 08/23/2019 03:21:06 PM EDT active As needed, Starting Leslie 08/23/19 at 1521, Intra-Procedu re [facility] Medication administered onsite 4 ML Verapamil hydrochloride 2.5 MG/ML Injection verap fern (ISOPTIN) injection verapamil (ISOPTIN) injection 08/23/2019 03:12:23 PM EDT active As needed, Starting Leslie 08/23/19 at 1512, Intra-Procedure [facility] Medication administered onsite 1 ML heparin sodium, porcine 1000 UNT/ML Injection hep tamia (porcine) injection heparin (porcine) injection 08/23/2019 03:12:04 PM EDT active As needed, Starting Leslie 08/23/19 at 1512, Intra-Procedure [facility] Medication administered onsite 2 ML Midazolam 1 MG/ML Injection midazolam (VERSED) in jection midazolam (VERSED) injection 08/23/2019 03:11:02 PM EDT active As needed, Starting Leslie 08/23/19 at 1511, Intra-Procedure [facility] Medication administered onsite fentaNYL Citrate (PF) (SUBLIMAZE) injection [id number] 08/23/2019 03:10:49 PM EDT active As neede d, Starting Leslie 08/23/19 at 1510, Intra-Procedure [facility] Medication administered onsite normal saline flush 0.9 % injection 3 mL [id number] 08/23/2019 02:00:00 PM EDT 3 mL Intravenous active 3 mL , Intravenous, Every 8 hours (scheduled), First dose on Leslie 08/23/19 at 1400, Pre-op
Rapid push positive pressure flushing shall be performed with a 10 cc normal saline syringe to check the PATENCY of a PIV site prior to any infusion therapy initiation unless resistance is met.
[facility] Medication administered onsite normal saline flush 0.9 % injection 3 mL [id number] 08/23/2019 02:00:00 PM EDT 3 mL Intravenous active 3 mL , Intravenous, PROTOCOL, First dose on Leslie 08/23/19 at 1400, Pre-op
flush per protocol, D/C Main IV fluid if appropriate
[facility] Medication administered onsite Diphenhydramine Hydrochloride 50 MG Oral Capsule diphenhydrAMINE (BENADRYL) capsule 50 mg diphenhydrAMINE (BENADRYL) capsule 50 mg 08/23/2019 02 :00:00 PM EDT 50 mg Oral completed 50 mg, Oral, call center coordinator, Leslie 08/23/19 at 1400, For 1 dose, Pre-op [facility] Medication administered onsite sodium chloride 0.9% (NS) infusion [id number] 08/23/2019 02:00:00 PM EDT 100 mL/h Intravenous active at 100 m L/hr, 100 mL/hr, Intravenous, Continuous, Starting Leslie 08/23/19 at 1400, Pre-op
Start two hours prior to scheduled start time
[facility] Medication administered onsite Acetaminophen 325 [...] mg from all sources in 24 hours."
[facility] Medication administered onsite clopidogrel 75 MG Oral Tablet [Plavix] Plavix 08/07/2019 12:00:00 AM EDT ORAL completed [facility] ([facility]) gemcitabine (GEMZAR) 2,000 mg in sodium chloride 0.9 % 100 mL (20 mg/mL) intravesical solution 06/11/2019 10:30:00 AM EDT 2000 mg Intrave sical active [facility] Oxybutynin chloride 5 MG Oral Tablet Oxy butynin Chloride 5 MG Oral Tablet (DITROPAN) Oxybutynin Chloride 5 MG Oral Tablet (DITROPAN) 2019 12:00:00 AM EDT active Take one by mouth the evening before treatment and one by mouth the morning of treatment [facility] gemcitabine (GEMZAR) 2,000 mg in sodium chloride 0.9 % 100 mL (20 mg/mL) intravesical solution 05/07/2019 09:30:00 AM EDT 2000 mg Intrave sical active [facility] Tamsulosin hydrochloride 0.4 MG Oral Cap teresa Tamsulosin HCl 0.4 MG Oral Capsule (FLOMAX) Tamsulosin HCl 0.4 MG Oral Capsule (FLOMAX) 04/27/2019 12:00 :00 AM EST 0.4 mg Oral active Take 1 capsule b y mouth Two Times Daily [facility] iohexol (OMNIPAQUE) 300 MG/ML contrast injection 100 mL [id number] 04/20/2019 10:30:00 AM EST 100 mL Intravenous completed 100 mL, Intravenous, 1 TIME IMAGING, Tue04/20/19 at 1030, For 1 dose, Imaging Protocol [facility] Medication administered onsite iohexol (OMNIPAQUE) 240 MG/ML contrast 20 mL [id number] 08:15:00 AM EST 20 mL Oral completed 20 mL, Oral, 1 TIME IMAGING, Tue04/20/19 at 0815, For 1 dose, Imaging Protocol
Dilute before administering
[facility] Medication administered onsite iohexol (OMNIPAQUE) 240 MG/ML contrast 20 mL [id number] 08:11:14 AM EST 20 mL Oral active 20 mL, Oral, IMG once PRN, Contrast, Starting Tue04/20/19 at 0811, For 1 day, Imaging Protocol
Dilute before administering
[facility] Medication administered onsite Phenazopyridine hydrochloride 100 MG Ora l Tablet Phenazopyridine HCl 100 MG Oral Tablet (PYRIDIUM) Phenazopyridine HCl 100 MG Oral Tablet (PYRIDIUM) 07/2019 12:00:00 AM EST 100 mg Oral active Take 1 tablet by mouth Three times daily as needed for Pain [facility] Azelastine HCl 137 MCG/SPRAY Azelastine HCl 137 MCG/SPRAY 12:00:00 AM EST active 1 puff in each no stril eCW1 ([facility]) Azelastine HCl 137 MCG/SPRAY Azelastine HCl 137 MCG/SPRAY 12:00:00 AM EST active 1 puff in each no stril eCW1 ([facility]) apixaban 5 MG Oral Tablet Apixaban (ELIQUIS) 5 MG TABS tablet Apixaban (ELIQUIS) 5 MG TABS tablet 5 mg Oral aborted Take 5 mg by mouth 2 (two) times a day [facility] clopidogrel 75 MG Oral Tablet clopidogrel (PLAVIX) 75 MG tablet clopidogrel (PLAVIX) 75 MG tablet 75 mg Oral aborted Ta ke 75 mg by mouth daily [facility] Warfarin Sodium 5 MG Oral Tablet warfarin (COUMADIN) 5 MG tablet warfarin (COUMADIN) 5 MG tablet 5 mg Oral aborted T sergio 5 mg by mouth nightly [facility] Enalapril Maleate 5 MG Oral Tablet enalapril (VASOTEC) 5 MG tablet enalapril (VASOTEC) 5 MG tablet 5 mg Oral aborted Ta ke 5 mg by mouth [facility] Captopril 25 MG Oral Tablet captopril (CAPOTEN) 25 MG tablet captopril (CAPOTEN) 25 MG tablet 25 mg Oral aborted Ta ke 25 mg by mouth 2 (two) times a day [facility] DORZOLAMIDE HCL-TIMOLOL MAL OP 1 [drp] aborted Administer 1 drop to both eyes 2 (two) times a day [facility] Nitroglycerin 0.4 MG Sublingual Tablet n itroglycerin (NITROSTAT) 0.4 MG SL tablet nitroglycerin (NITROSTAT) 0.4 MG SL tablet 0.4 mg [address]li ngual aborted Place 0.4 mg under t he tongue every 5 (five) minutes as needed for chest pain [facility] Insurance Providers Payer name Policy type / Coverage type Policy ID Covered republican ID Covered republican's relationship to floyd Policy Floyd Plan Information MEDICARE [id number] SP [id number] [facility] OPTIONS [id number] SP [id number] MEDICARE A [id number] Self [id number] K28 AAR U [id number] Self [id number] [facility] [id number] Gayathri [id number] MEDICARE [id number] Gayathri [id number] K28 MEDICARE [id number] S [id number] MEDICARE C [id number] S [id number] K28 AAR O [id number] S [id number] INSURANCE COVID-19 [id number] [facility] [id number] MEDICARE [id number] INSURANCE COVID-19 COVID Gayathri C OVID [facility] HE[facility] C[facility] OPTIONS -O/P [id number] 18 [id number] MEDICARE PART A -O/P [id number] 18 [id number] INSURANCE COVID-19 COVID Gayathri C OVID INSURANCE COVID-19 COVID Gayathri C OVID [facility] [id number] Gayathri [id number] MEDICARE [id number] Gayathri [id number] K28 "" MDA None INSURANCE COVID-19 [id number] [facility] [id number] Gayathri [id number] [facility] [id number] Self [id number] Medicare (Part B) Medicare Primary [id number] Self [id number] [place] [employer] Part B [id number] Family Dependent [id number] [place] [employer] Part B [id number] Family Dependent [id number] [facility] [id number] Self [id number] Medicare (Part B) Medicare Primary [id number] Self [id number] Medicare [facility] Medigap Part B [id number] Self [id number] Medicare Medicare Primary [id number] Self [id number] [facility] [id number] Self [id number] ANSI-Commercial [id number] ANSI-Medicare Part B [id number] [facility] [id number] Self [id number] Medicare (Part B) Medicare Primary [id number] Self [id number] [employer] Part B [id number] Self [id number] Medicare (Part B) Medicare Primary [id number] Self [id number] ANSI-Medicare Part B [id number] ANSI-Commercial [id number] MEDICARE [id number] SP [id number] A ANSI-Commercial [id number] ANSI-Medicare Part B [id number] Medicare [facility] Part B [id number] Self [id number] Medicare [facility] Medicare Primary [id number] Self [id number] ANSI-Medicare Part B [id number] ANSI-Commercial [id number] ANSI-Commercial [id number] ANSI-Medicare Part B [id number] [facility] [id number] Self [id number] Medicare Medicare Primary [id number] Self [id number] ANSI-Medicare Part B [id number] ANSI-Commercial [id number] ANSI-Commercial [id number] ANSI-Medicare Part B [id number] ANSI-Medicare Part B [id number] ANSI-Commercial [id number] ANSI-Medicare Part B [id number] ANSI-Commercial [id number] ANSI-Medicare Part B [id number] ANSI-Commercial [id number] ANSI-Medicare Part B [id number] ANSI-Commercial [id number] ANSI-Medicare Part B [id number] ANSI-Commercial [id number] [employer] [facility] Part B [id number] Self [id number] Medicare (Part B) Medicare Primary [id number] Self [id number] ANSI-Commercial [id number] ANSI-Medicare Part B [id number] MEDICARE A [id number] Self [id number] A ANSI-Commercial [id number] ANSI-Medicare Part B [id number] ANSI-Commercial [id number] ANSI-Medicare Part B [id number] [facility] [id number] Self [id number] Medicare (Part B) Medicare Primary [id number] Self [id number] [facility] [id number] Self [id number] Medicare (Part B) Medicare Primary [id number] Self [id number] [employer] [facility] Med[employer]ap Part B [id number] Self [id number] Medicare (Part B) Medicare Primary [id number] Self [id number] [employer] [facility] [employer] Part B [id number] Self [id number] Medicare (Part B) Medicare Primary [id number] Self [id number] [employer] Med[employer]ap Part B [id number] Self [id number] Medicare Medicare Primary [id number] Self [id number] [employer] [facility] Med[employer]ap Part B [id number] Self [id number] Medicare (Part B) Medicare Primary [id number] Self [id number] AARP U [id number] Self [id number] [employer] OPTIONS [id number] SP [id number] MEDICARE C [id number] S [id number] A [employer] OPTIONS [id number] SP [id number] MEDICARE [id number] SP [id number] A [employer] OPTIONS [id number] SP [id number] Medicare (Part B) Medicare Primary Self [place] [employer] Part B Family Dependent [place] [employer] Part B Family Dependent [facility] [facility] Medigap Part B F Self F [facility] [facility] [place] Part B Self [place] Primary Self [employer] Part B Self [place] Primary Self Medicare Medicare Primary Self [employer] [id number] [id number] [employer] PPO S [id number] S [id number] A Problems, Conditions, and Diagnoses Code Display Name Description Problem Type Effective Dates Data Source(s) 254301741 History of coronary artery bypass grafti ng History of coronary artery bypass grafting Problem 01/14/2020 12:00:00 AM EST MEDTENZIN ([facility]) 40020500 Essential hypertension Essential hypertension Problem 12/24/2019 12:00:00 AM EDT PEYTON ([facility] ) 784377509 Benign prostatic hypertrophy without out flow obstruction Benign prostatic hypertrophy without outflow obstruction Problem 11/29 12:00:00 AM EDT MEDENT ([facility] ) 40813831 Hyperlipidemia Hyperlipidemia Problem 12/24/2019 12:00: 00 AM EDT MEDTENZIN ([facility] [id number] Coronary atherosclerosis Coronary atherosclerosis Prob kal 12/24/2019 12:00:00 AM EDT MEDTENZIN ([facility] ) T82.110A Pacemaker lead failure, initial encounte r Pacemaker lead failure, initial encounter [id number] 10/22/2019 12:00:00 AM EDT [facility] R06.02 Shortness of breath Shortness of breath 23552410 0 09/29/2019 12:00:00 AM EDT [facility] Z97.2 Wears partial dentures Wears partial dentures [id number] 09/17/2019 12:00:00 AM EDT [facility] I49.5 SSS (sick sinus syndrome) SSS (sick sinus syndrome) 64 974589 09/17/2019 12:00:00 AM EDT [facility] I49.3 PVC's (premature ventricular contraction s) PVC's (premature ventricular contractions) 67743973 09/17/2019 12:00:00 AM EDT [facility] R94.31 Abnormal EKG Abnormal EKG 15049013 09/17/2019 12:00:00 A M EDT [facility] I21.9 Myocardial infarction Myocardial infarction [id number] 09/17/2019 12:00:00 AM EDT [facility] N40.0 BPH (benign prostatic hyperplasia) BPH (benign p rostatic hyperplasia) 64874784 09/17/2019 12:00:00 AM EDT [facility] Baker C80.1 Cancer Cancer 34417980 09/17/2019 12:00:00 AM ED T [facility] H91.90 Hearing loss Hearing loss 24415291 09/17/2019 12:00:00 A M EDT [facility] H40.9 Glaucoma Glaucoma 31026468 09/17/2019 12:00:00 AM ED T [facility] K57.90 Diverticulosis Diverticulosis 89890063 09/17/2019 12:00: 00 AM EDT [facility] K80.20 Cholelithiasis Cholelithiasis 81691944 09/17/2019 12:00: 00 AM EDT [facility] I42.9 Cardiomyopathy Cardiomyopathy 39684182 09/17/2019 12:00: 00 AM EDT [facility] I25.10 Coronary artery disease Coronary artery disease 062480 01 09/17/2019 12:00:00 AM EDT [facility] 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 [id number] Permanent atrial fibrillation Permanent atrial fibrill ation Problem 07/11/2019 12:00:00 AM EDT MEDENT ([facility]) [id number] Cardiac pacemaker in situ Cardiac pacemaker in situ Pr oblem 07/11/2019 12:00:00 AM EDT MEDENT ([facility]) 58171106 Sinus node dysfunction Sinus node dysfunction Problem 07/11/2019 12:00:00 AM EDT MEDENT ([facility]) Z68.32 [id number] BMI 32.0-32.9,adult Problem 03/05/2019 12:00 :00 AM EST eCW1 ([facility]) R31.0 Gross hematuria Gross hematuria Diagnosis 03/27/2020 10:4 0:44 AM [facility] R39.9 Unspecified symptoms and signs involving the genitourinary system Unspecified symptoms and signs involving the genitourinary system Diagnosis 03/27/2020 10:02:12 AM [facility] bladder cancer bladder cancer Diagnosis 01/16/2020 08:06: 00 AM [facility] Z20.828 Contact with and (suspected) exposure to other viral communicable diseases CONTACT W AND EXPOSURE TO OTH VIRAL COMMUNICABLE D Diagnosis 01/11/2020 06:30:00 AM [facility] C67.9 Malignant neoplasm of bladder, unspecifi ed MALIGNANT NEOPLASM OF BLADDER, UNSPECIFI Diagnosis 01/11/2020 06:30:00 AM [facility] Z01.812 Encounter for preprocedural laboratory e xamination ENCOUNTER FOR PREPROCEDURAL LABORATORY EXAMINATION Diagnosis 01/11/2020 06:30:00 AM [facility] I48.91 Unspecified atrial fibrillation Unspecified atri al fibrillation Diagnosis 10/16/2019 02:27:46 PM EDT [facility] T82.110A Breakdown (mechanical) of cardiac electr ode, initial encounter Breakdown (mechanical) of cardiac electr Diagnosis 10/16/2019 02:27:46 PM EDT [facility] J90 Pleural effusion, not elsewhere classifi ed Pleural effusion, not elsewhere classifi Diagnosis 10/16/2019 10:00:29 AM EDT [facility] I48.91 Unspecified atrial fibrillation Unspecified atri al fibrillation Diagnosis 10/16/2019 10:00:29 AM EDT [facility] I4891 Unspecified atrial fibrillation Unspecified atrial fib rillation Diagnosis 10/11/2019 07:14:00 AM EDT [facility] D649 Anemia, unspecified Anemia, unspecified Diagnosis 0 10/09/2019 06:39:00 AM EDT [facility] I38 Endocarditis, valve unspecified Endocarditis, valve un specified Diagnosis 10/09/2019 06:39:00 AM EDT [facility] I4892 Unspecified atrial flutter Unspecified atrial flutter Diagnosis 10/09/2019 06:39:00 AM EDT [facility] Z951 Presence of aortocoronary bypass graft P resence of aortocoronary bypass graft Diagnosis 10/05/2019 06:55:00 AM EDT [facility] I10 Essential (primary) hypertension Essential (primary) h ypertension Diagnosis 10/05/2019 06:55:00 AM EDT [facility] R06.00 Dyspnea, unspecified Dyspnea, unspecified Diagnosis 09/28/2019 09:14:15 PM EDT [facility] I25.118 Atherosclerotic heart diseas e of [place] coronary artery with other forms of angina pectoris ATHEROSCLEROTIC HEART DISEASE OF [place] CORONARY ARTERY WITH OTHER FORMS OF ANGINA PECTORIS Diagnosis 09/28/2019 12:00:00 AM EDT P CC ([facility]) Z48.812 Encounter for surgical after care following surgery on the circulatory system ENCOUNTER FOR SURGICAL AFTERCARE FOLLOWI NG SURGERY ON THE CIRCULATORY SYSTEM Diagnosis 09/28/2019 12:00:00 AM EDT [facility] ([facility]) I10 Essential (primary) hypertension ESSENTIAL (PRIMARY) H YPERTENSION Diagnosis 09/28/2019 12:00:00 AM EDT [facility] ([facility]) 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 LIGHTER (CURRENT) USE OF ANTICOAGULANTS Diagnosis 09/28/2019 12:00:00 AM EDT [facility] ([facility]) K80.20 Calculus of gallbladder without cholecys titis without obstruction CALCULUS OF GALLBLADDER WITHOUT CHOLECYSTITIS WITHOUT OBSTRUCTION Diagnosis 09/28/2019 12:00:00 AM EDT P[facility] ([facility]) K57.90 Diverticulosis of intestine, part unspecified, without perforation or abscess without bleeding DIVERTICULOSIS OF INTESTINE, PART UNSPEC IFIED, WITHOUT PERFORATION OR ABSCESS WITHOUT BLEEDING Diagnosis 09/28/2019 12:00:00 AM EDT [facility] ([facility]) H40.9 Unspecified glaucoma UNSPECIFIED GLAUCOMA Diagnosis 09/28/2019 12:00:00 AM EDT [facility] ([facility]) N40.0 Benign prostatic hyperplasia without low er urinary tract symptoms BENIGN PROSTATIC HYPERPLASIA WITHOUT LOWER URINARY TRACT SYMPTOMS Diagnosis 09/28/2019 12:00:00 AM EDT [facility] ([facility]) Z95.0 Presence of cardiac pacemaker PRESENCE OF CARDIAC PACE MAKER Diagnosis 09/28/2019 12:00:00 AM EDT [facility] ([facility]) I49.5 Sick sinus syndrome SICK SINUS SYNDROME Diagnosis 0 09/28/2019 12:00:00 AM EDT [facility] ([facility]) Z95.1 Presence of aortocoronary bypass graft P RESENCE OF AORTOCORONARY BYPASS GRAFT Diagnosis 09/28/2019 12:00:00 AM EDT [facility] ([facility]) I48.92 Unspecified atrial flutter UNSPECIFIED ATRIAL FLUTTER Diagnosis 09/28/2019 12:00:00 AM EDT [facility] ([facility]) I42.9 Cardiomyopathy, unspecified CARDIOMYOPATHY, UNSPECIFIE D Diagnosis 09/28/2019 12:00:00 AM EDT [facility] ([facility]) I48.0 Paroxysmal atrial fibrillation PAROXYSMAL ATRIAL FIBRI LLATION Diagnosis 09/28/2019 12:00:00 AM EDT [facility] ([facility]) I25.118 Atherosclerotic heart diseas e of [place] coronary artery with other forms of angina pectoris Atherosclerotic heart disease of [place] Diagnosis 09/20/2019 09:54:00 AM EDT [facility] J98.8 Other specified respiratory disorders Ot her specified respiratory disorders Diagnosis 09/17/2019 10:39:14 AM EDT [facility] U07.1 COVID-19 COVID-19 Diagnosis 09/17/2019 10:39:14 AM ED T [facility] Z97.2 Presence of dental prosthetic device (co mplete) (partial) Presence of dental prosthetic device (co Diagnosis 09/17/2019 07:26:28 AM EDT [facility] I49.5 Sick sinus syndrome Sick sinus syndrome Diagnosis 0 09/17/2019 07:26:28 AM EDT [facility] I49.3 Ventricular premature depolarization Ventricular premature depolarization Diagnosis 09/17/2019 07:26:28 AM EDT [facility] R94.31 Abnormal electrocardiogram [ECG] [EKG] A bnormal electrocardiogram (ECG) (EKG) Diagnosis 09/17/2019 07:26:28 AM EDT [facility] N40.0 Benign prostatic hyperplasia without low er urinary tract symptoms Benign prostatic hyperplasia without low Diagnosis 09/17/2019 07:26:28 AM EDT [facility] C80.1 Malignant (primary) neoplasm, unspecifie d Malignant (primary) neoplasm, unspecifie Diagnosis 09/17/2019 07:26:28 AM EDT [facility] H91.93 Unspecified hearing loss, bilateral Unspecified hearing loss, bilateral Diagnosis 09/17/2019 07:26:28 AM EDT [facility] H40.9 Unspecified glaucoma Unspecified glaucoma Diagnosis 09/17/2019 07:26:28 AM EDT [facility] K57.90 Diverticulosis of intestine, part unspecified, without perforation or abscess without bleeding Diverticulosis of intestine, part unspec Diagnosis 09/17/2019 07:26:28 AM EDT [facility] K80.20 Calculus of gallbladder without cholecys titis without obstruction Calculus of gallbladder without cholecys Diagnosis 09/17/2019 07:26:28 AM EDT [facility] I42.9 Cardiomyopathy, unspecified Cardiomyopathy, unspecifie d Diagnosis 09/17/2019 07:26:28 AM EDT [facility] 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 Diagnosis 09/17/2019 07:26:28 AM EDT [facility] I48.92 Unspecified atrial flutter Unspecified atrial flutter Diagnosis 09/17/2019 07:26:28 AM EDT [facility] I48.0 Paroxysmal atrial fibrillation Paroxysmal atrial fibri llation Diagnosis 09/17/2019 07:26:28 AM EDT [facility] I10 Essential (primary) hypertension Essential (primary) h ypertension Diagnosis 09/17/2019 07:26:28 AM EDT [facility] R94.39 Abnormal result of other cardiovascular function study Abnormal result of other cardiovascular Diagnosis 08/23/2019 01:19:00 PM EDT [facility] Bladder cancer Bladder cancer Diagnosis 04/05/2019 09:34: 06 AM [facility] Surgeries/Procedures Procedure Description Date Indications Data Source(s) INTERROGATION EVAL REMOTE </90 D 1/2/SUPERVISOR GRINDING LEAD PM 02/10 12:00:00 AM EST [facility] ([facility]) INTERROGATION REMOTE </90 D 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 02/11/20 20 12:00:00 AM EST [facility] ([facility]) ECG ROUTINE ECG W/LEAST 12 LDS W/I&R 01/14/2020 12:00: 00 AM EST [facility] ([facility]) JOHN VIDEO JOHN VIDEO Routine 12/19/2019 7:53 AM EDT 12/19/2019 07:53:50 AM [facility] CARDIAC REPORT CARDIAC REPORT 12/18/2019 3:44 PM EDT 12/18/2019 03:44:26 PM [facility] Anticoagulant MGMT For Patient Taking Warfarin, Inc Review & Intr 12/14/2019 12:00:00 AM EDT [facility] ([facility] Anticoagulant MGMT For Patient Taking Warfarin, Inc Review & Intr 12/03/2019 12:00:00 AM EDT [facility] ([facility]) Anticoagulant MGMT For Patient Taking Warfarin, Inc Review & Intr 11/21/2019 12:00:00 AM EDT [facility] ([facility]) ECG ROUTINE ECG W/LEAST 12 LDS W/I&R 11/12/2019 12:00: 00 AM EDT [facility] ([facility]) PROGRAM EVAL IMPLANTABLE IN PRSN 1 LD PACEMAKER 2019 12:00:00 AM EDT [facility] ([facility]) Anticoagulant MGMT For Patient Taking Warfarin, Inc Review & Intr 10/30/2019 12:00:00 AM EDT [facility] ([facility]) Anticoagulant MGMT For Patient Taking Warfarin, Inc Review & Intr 10/26/2019 12:00:00 AM EDT [facility] ([facility]) PROTHROMBIN TIME PROTIME-INR Routine 10/24/2019 2:17 AM EDT 10/24/2019 06:17:00 AM EDT [facility] BLOOD COUNT COMPLETE AUTOMATED CBC Routine 10/24/2019 2:17 A M EDT 10/24/2019 06:17:00 AM EDT [facility] BASIC METABOLIC PANEL CALCIUM TOTAL BASIC METABOLIC PANEL Timed 10/24/2019 2:17 AM EDT 10/24/2019 06:17:00 AM EDT [facility] XR CHEST PORTABLE XR CHEST PORTABLE STAT 10/23/2019 4:05 PM EDT 10/23/2019 08:05:51 PM EDT [facility] FLUOROSCOPY SPX <1 HOUR PHYSICIAN TIME XR FLUORO PACEMAKER INSE RT Routine 10/23/2019 3:42 PM EDT 10/23/2019 07:42:17 PM EDT [facility] 2019 NCOV AMPLIFIED 2019 NCOV AMPLIFIED STAT 10/23/2019 11:30 AM EDT 10/23/2019 03:30:00 PM EDT [facility] PREPARE PLASMA PREPARE PLASMA Routine 10/23/2019 7:00 AM EDT 10/23/2019 11:00:00 AM EDT [facility] PROTHROMBIN TIME PROTIME-INR Routine 10/23/2019 2:34 AM EDT 10/23/2019 06:34:00 AM EDT [facility] BLOOD COUNT COMPLETE AUTOMATED CBC Routine 10/23/2019 2:34 A M EDT 10/23/2019 06:34:00 AM EDT [facility] MAGNESIUM MAGNESIUM Routine 10/23/2019 2:34 AM EDT 10/23/2019 06:34:00 AM EDT [facility] BASIC METABOLIC PANEL CALCIUM TOTAL BASIC METABOLIC PANEL Timed 10/23/2019 2:34 AM EDT 10/23/2019 06:34:00 AM EDT [facility] ROOM TEMP AB SCREEN ROOM TEMP AB SCREEN Routine 10/22/2019 11:50 AM EDT 10/22/2019 03:50:00 PM EDT [facility] XR CHEST PA AND LATERAL XR CHEST PA AND LATERAL Routine 10/22/2019 8:27 AM EDT 10/22/2019 12:27:40 PM EDT [facility] PROTHROMBIN TIME PROTIME-INR Routine 10/22/2019 3:17 AM EDT 10/22/2019 07:17:00 AM EDT [facility] BLOOD COUNT COMPLETE AUTOMATED CBC Routine 10/22/2019 3:17 A M EDT 10/22/2019 07:17:00 AM EDT [facility] PROTHROMBIN TIME PROTIME-INR Routine 10/21/2019 2:24 AM EDT 10/21/2019 06:24:00 AM EDT [facility] BLOOD COUNT COMPLETE AUTOMATED CBC Routine 10/21/2019 2:24 A M EDT 10/21/2019 06:24:00 AM EDT [facility] BASIC METABOLIC PANEL CALCIUM TOTAL BASIC METABOLIC PANEL Add-O n 10/21/2019 2:24 AM EDT 10/21/2019 06:24:00 AM EDT [facility] PROTHROMBIN TIME PROTIME-INR Routine 10/20/2019 2:30 AM EDT 10/20/2019 06:30:00 AM EDT [facility] BLOOD COUNT COMPLETE AUTOMATED CBC Routine 10/20/2019 2:30 A M EDT 10/20/2019 06:30:00 AM EDT [facility] PROTHROMBIN TIME PROTIME-INR Routine 10/19/2019 2:15 AM EDT 10/19/2019 06:15:00 AM EDT [facility] BLOOD COUNT COMPLETE AUTOMATED CBC Routine 10/19/2019 2:15 A M EDT 10/19/2019 06:15:00 AM EDT [facility] MAGNESIUM MAGNESIUM Timed 10/19/2019 2:15 AM EDT 10/19/2019 06:15:00 AM EDT [facility] BASIC METABOLIC PANEL CALCIUM TOTAL BASIC METABOLIC PANEL Timed 10/19/2019 2:15 AM EDT 10/19/2019 06:15:00 AM EDT [facility] PROTHROMBIN TIME PROTIME-INR Routine 10/18/2019 2:25 AM EDT 10/18/2019 06:25:00 AM EDT [facility] BLOOD COUNT COMPLETE AUTOMATED CBC Routine 10/18/2019 2:25 A M EDT 10/18/2019 06:25:00 AM EDT [facility] MAGNESIUM MAGNESIUM Timed 10/18/2019 2:25 AM EDT 10/18/2019 06:25:00 AM EDT [facility] BASIC METABOLIC PANEL CALCIUM TOTAL BASIC METABOLIC PANEL Timed 10/18/2019 2:25 AM EDT 10/18/2019 06:25:00 AM EDT [facility] PROTHROMBIN TIME PROTIME-INR Timed 10/17/2019 2:31 AM EDT 10/17/2019 06:31:00 AM EDT [facility] BLOOD COUNT COMPLETE AUTOMATED CBC Routine 10/17/2019 2:31 A M EDT 10/17/2019 06:31:00 AM EDT [facility] MAGNESIUM MAGNESIUM Timed 10/17/2019 2:31 AM EDT 10/17/2019 06:31:00 AM EDT [facility] BASIC METABOLIC PANEL CALCIUM TOTAL BASIC METABOLIC PANEL Timed 10/17/2019 2:31 AM EDT 10/17/2019 06:31:00 AM EDT [facility] ECG ROUTINE ECG W/LEAST 12 LDS TRCG ONLY W/O I&R ECG 12-LEAD Routine 10/16/2019 4:26 PM EDT 10/16/2019 08:26:29 PM EDT [facility] URINE CULTURE HOLD SPECIMEN URINE CULTURE HOLD SPECIMEN Routine 10/16/2019 4:19 PM EDT 10/16/2019 08:19:00 PM EDT [facility] URNLS DIP STICK/TABLET RGNT AUTO W/O MICROSCOPY URINALYSIS W/O MICRO Routine 10/16/2019 4:19 PM EDT 10/16/2019 08:19:00 PM EDT [facility] GLUC BLD GLUC MNTR DEV CLEARED FDA SPEC HOME USE POCT GLUCOSE Routine 10/16/2019 3:43 PM EDT 10/16/2019 07:43:00 PM EDT [facility] IADNA S AUREUS METHICILLIN RESIST AMP PROBE TQ MRSA SCREEN BY P CR Routine 10/16/2019 3:30 PM EDT 10/16/2019 07:30:00 PM EDT [facility] BLOOD COUNT COMPLETE AUTOMATED CBC Routine 10/16/2019 3:29 P M EDT 10/16/2019 07:29:00 PM EDT [facility] HEPATIC FUNCTION PANEL HEPATIC FUNCTION PANEL Routine 020 3:29 PM EDT 10/16/2019 07:29:00 PM EDT [facility] BASIC METABOLIC PANEL CALCIUM TOTAL BASIC METABOLIC PANEL Routi ne 10/16/2019 3:29 PM EDT 10/16/2019 07:29:00 PM EDT [facility] 2019 NCOV AMPLIFIED 2019 NCOV AMPLIFIED STAT 10/16/2019 2:33 PM EDT 10/16/2019 06:33:00 PM EDT [facility] PROTHROMBIN TIME PROTIME-INR Timed 10/02/2019 2:23 AM EDT 10/02/2019 06:23:00 AM EDT [facility] BLOOD COUNT COMPLETE AUTOMATED CBC Timed 10/02/2019 2:23 A M EDT 10/02/2019 06:23:00 AM EDT [facility] 2019 NCOV AMPLIFIED 2019 NCOV AMPLIFIED Routine 10/02/2019 12:10 AM EDT 10/02/2019 04:10:00 AM EDT [facility] PROTHROMBIN TIME PROTIME-INR Timed 10/01/2019 2:20 AM EDT 10/01/2019 06:20:00 AM EDT [facility] BLOOD COUNT COMPLETE AUTOMATED CBC Routine 10/01/2019 2:20 A M EDT 10/01/2019 06:20:00 AM EDT [facility] BASIC METABOLIC PANEL CALCIUM TOTAL BASIC METABOLIC PANEL Timed 10/01/2019 2:20 AM EDT 10/01/2019 06:20:00 AM EDT [facility] BLOOD TYPING ABO TYPE AND SCREEN Routine 09/30/2019 9:34 AM EDT 09/30/2019 01:34:00 PM EDT [facility] BLOOD COUNT COMPLETE AUTOMATED CBC Timed 09/30/2019 5:58 A M EDT 09/30/2019 09:58:00 AM EDT [facility] PROTHROMBIN TIME PROTIME-INR Timed 09/30/2019 2:18 AM EDT 09/30/2019 06:18:00 AM EDT [facility] BLOOD COUNT COMPLETE AUTOMATED CBC Routine 09/30/2019 2:18 A M EDT 09/30/2019 06:18:00 AM EDT [facility] BASIC METABOLIC PANEL CALCIUM TOTAL BASIC METABOLIC PANEL Timed 09/30/2019 2:18 AM EDT 09/30/2019 06:18:00 AM EDT [facility] PROTHROMBIN TIME PROTIME-INR STAT 09/29/2019 9:44 AM EDT 09/29/2019 01:44:00 PM EDT [facility] BLOOD COUNT COMPLETE AUTOMATED CBC Routine 09/29/2019 1:10 A M EDT 09/29/2019 05:10:00 AM EDT [facility] BASIC METABOLIC PANEL CALCIUM TOTAL BASIC METABOLIC PANEL Timed 09/29/2019 1:10 AM EDT 09/29/2019 05:10:00 AM EDT [facility] XR CHEST PA AND LATERAL XR CHEST PA AND LATERAL Routine 09/29/2019 12:00 AM EDT 09/29/2019 04:00:00 AM EDT [facility] NT PRO BNP NT PRO BNP STAT 09/28/2019 10:47 PM EDT 09/29/2019 02:47:00 AM EDT [facility] BLOOD COUNT COMPLETE AUTO&AUTO DIFRNTL WBC COUNT CBC AND DIFFER ENTIAL STAT 09/28/2019 10:47 PM EDT 09/29/2019 02:47:00 AM EDT [facility] BASIC METABOLIC PANEL CALCIUM TOTAL BASIC METABOLIC PANEL STAT 09/28/2019 10:47 PM EDT 09/29/2019 02:47:00 AM EDT [facility] XR CHEST PORTABLE XR CHEST PORTABLE STAT 09/28/2019 10:17 PM EDT 09/29/2019 02:17:16 AM EDT [facility] XR CHEST PA AND LATERAL XR CHEST PA AND LATERAL Pending Dischar ge 09/28/2019 9:21 AM EDT 09/28/2019 01:21:33 PM EDT [facility] PROTHROMBIN TIME PROTIME-INR Timed 09/28/2019 9:13 AM EDT 09/28/2019 01:13:00 PM EDT [facility] BLOOD COUNT COMPLETE AUTOMATED CBC Timed 09/28/2019 9:13 A M EDT 09/28/2019 01:13:00 PM EDT [facility] BASIC METABOLIC PANEL CALCIUM TOTAL BASIC METABOLIC PANEL Timed 09/28/2019 9:13 AM EDT 09/28/2019 01:13:00 PM EDT [facility] IR THORACENTESIS LOCALIZATION LEFT IR THORACENTESIS LOCALIZ ATION LEFT Pending Discharge 09/27/2019 9:48 AM EDT 09/27/2019 01:48:18 PM EDT [facility] 2019 NCOV AMPLIFIED 2019 NCOV AMPLIFIED Timed 09/27/2019 2:21 AM EDT 09/27/2019 06:21:00 AM EDT [facility] PROTHROMBIN TIME PROTIME-INR Timed 09/27/2019 2:14 AM EDT 09/27/2019 06:14:00 AM EDT [facility] BLOOD COUNT COMPLETE AUTOMATED CBC Timed 09/27/2019 2:14 A M EDT 09/27/2019 06:14:00 AM EDT [facility] MAGNESIUM MAGNESIUM Timed 09/27/2019 2:14 AM EDT 09/27/2019 06:14:00 AM EDT [facility] BASIC METABOLIC PANEL CALCIUM TOTAL BASIC METABOLIC PANEL Timed 09/27/2019 2:14 AM EDT 09/27/2019 06:14:00 AM EDT [facility] XR CHEST PA AND LATERAL XR CHEST PA AND LATERAL Routine 09/26/2019 10:58 AM EDT 09/26/2019 02:58:10 PM EDT [facility] IR THORACENTESIS LOCALIZATION RIGHT IR THORACENTESIS LOCALI ZATION RIGHT Routine 09/26/2019 8:34 AM EDT 09/26/2019 12:34:59 PM EDT [facility] POTASSIUM SERUM PLASMA/WHOLE BLOOD POTASSIUM Timed 09/26/2019 6: 47 AM EDT 09/26/2019 10:47:00 AM EDT [facility] MAGNESIUM MAGNESIUM Timed 09/26/2019 6:47 AM EDT 09/26/2019 10:47:00 AM EDT [facility] PROTHROMBIN TIME PROTIME-INR Timed 09/26/2019 2:39 AM EDT 09/26/2019 06:39:00 AM EDT [facility] BLOOD COUNT COMPLETE AUTOMATED CBC Timed 09/26/2019 2:39 A M EDT 09/26/2019 06:39:00 AM EDT [facility] MAGNESIUM MAGNESIUM Timed 09/26/2019 2:39 AM EDT 09/26/2019 06:39:00 AM EDT [facility] BASIC METABOLIC PANEL CALCIUM TOTAL BASIC METABOLIC PANEL Timed 09/26/2019 2:39 AM EDT 09/26/2019 06:39:00 AM EDT [facility] POTASSIUM SERUM PLASMA/WHOLE BLOOD POTASSIUM Timed 09/25/2019 6: 21 PM EDT 09/25/2019 10:21:00 PM EDT [facility] MAGNESIUM MAGNESIUM Timed 09/25/2019 6:21 PM EDT 09/25/2019 10:21:00 PM EDT [facility] POTASSIUM SERUM PLASMA/WHOLE BLOOD POTASSIUM Timed 09/25/2019 11: 25 AM EDT 09/25/2019 03:25:00 PM EDT [facility] MAGNESIUM MAGNESIUM Timed 09/25/2019 11:25 AM EDT 09/25/2019 03:25:00 PM EDT [facility] XR CHEST PA AND LATERAL XR CHEST PA AND LATERAL Routine 09/25/2019 8:32 AM EDT 09/25/2019 12:32:18 PM EDT [facility] ECG ROUTINE ECG W/LEAST 12 LDS TRCG ONLY W/O I&R ECG 12-LEAD Routine 09/25/2019 6:08 AM EDT 09/25/2019 10:08:24 AM EDT [facility] PROTHROMBIN TIME PROTIME-INR Timed 09/25/2019 2:21 AM EDT 09/25/2019 06:21:00 AM EDT [facility] BLOOD COUNT COMPLETE AUTOMATED CBC Timed 09/25/2019 2:21 A M EDT 09/25/2019 06:21:00 AM EDT [facility] MAGNESIUM MAGNESIUM Timed 09/25/2019 2:21 AM EDT 09/25/2019 06:21:00 AM EDT [facility] BASIC METABOLIC PANEL CALCIUM TOTAL BASIC METABOLIC PANEL Timed 09/25/2019 2:21 AM EDT 09/25/2019 06:21:00 AM EDT [facility] POTASSIUM SERUM PLASMA/WHOLE BLOOD POTASSIUM Routine 09/24/2019 8:30 PM EDT 09/25/2019 12:30:00 AM EDT [facility] MAGNESIUM MAGNESIUM Routine 09/24/2019 8:30 PM EDT 09/25/2019 12:30:00 AM EDT [facility] US GUIDANCE NEEDLE PLACEMENT RS&I US THORACENTESIS LEFT Routine 09/24/2019 1:26 PM EDT 09/24/2019 05:26:44 PM EDT [facility] GLUC BLD GLUC MNTR DEV CLEARED FDA SPEC HOME USE POCT GLUCOSE Routine 09/24/2019 11:50 AM EDT 09/24/2019 03:50:00 PM EDT [facility] POTASSIUM SERUM PLASMA/WHOLE BLOOD POTASSIUM Timed 09/24/2019 11: 35 AM EDT 09/24/2019 03:35:00 PM EDT [facility] MAGNESIUM MAGNESIUM Timed 09/24/2019 11:35 AM EDT 09/24/2019 03:35:00 PM EDT [facility] GLUC BLD GLUC MNTR DEV CLEARED FDA SPEC HOME USE POCT GLUCOSE Routine 09/24/2019 7:47 AM EDT 09/24/2019 11:47:00 AM EDT [facility] XR CHEST PORTABLE XR CHEST PORTABLE Timed 09/24/2019 7:16 AM EDT 09/24/2019 11:16:42 AM EDT [facility] PROTHROMBIN TIME PROTIME-INR Routine 09/24/2019 3:17 AM EDT 09/24/2019 07:17:00 AM EDT [facility] POTASSIUM SERUM PLASMA/WHOLE BLOOD POTASSIUM Timed 09/24/2019 3: 17 AM EDT 09/24/2019 07:17:00 AM EDT [facility] MAGNESIUM MAGNESIUM Timed 09/24/2019 3:17 AM EDT 09/24/2019 07:17:00 AM EDT [facility] BASIC METABOLIC PANEL CALCIUM TOTAL BASIC METABOLIC PANEL Add-O n 09/24/2019 3:17 AM EDT 09/24/2019 07:17:00 AM EDT [facility] POTASSIUM SERUM PLASMA/WHOLE BLOOD POTASSIUM Timed 09/23/2019 7: 34 PM EDT 09/23/2019 11:34:00 PM EDT [facility] MAGNESIUM MAGNESIUM Timed 09/23/2019 7:34 PM EDT 09/23/2019 11:34:00 PM EDT [facility] GLUC BLD GLUC MNTR DEV CLEARED FDA SPEC HOME USE POCT GLUCOSE Routine 09/23/2019 6:58 PM EDT 09/23/2019 10:58:00 PM EDT [facility] GLUC BLD GLUC MNTR DEV CLEARED FDA SPEC HOME USE POCT GLUCOSE Routine 09/23/2019 1:36 PM EDT 09/23/2019 05:36:00 PM EDT [facility] POTASSIUM SERUM PLASMA/WHOLE BLOOD POTASSIUM Timed 09/23/2019 11: 59 AM EDT 09/23/2019 03:59:00 PM EDT [facility] MAGNESIUM MAGNESIUM Timed 09/23/2019 11:59 AM EDT 09/23/2019 03:59:00 PM EDT [facility] GLUC BLD GLUC MNTR DEV CLEARED FDA SPEC HOME USE POCT GLUCOSE Routine 09/23/2019 8:47 AM EDT 09/23/2019 12:47:00 PM EDT [facility] XR CHEST PORTABLE XR CHEST PORTABLE STAT 09/23/2019 7:22 AM EDT 09/23/2019 11:22:17 AM EDT [facility] PROTHROMBIN TIME PROTIME-INR Timed 09/23/2019 2:16 AM EDT 09/23/2019 06:16:00 AM EDT [facility] BLOOD COUNT COMPLETE AUTOMATED CBC Timed 09/23/2019 2:16 A M EDT 09/23/2019 06:16:00 AM EDT [facility] MAGNESIUM MAGNESIUM Timed 09/23/2019 2:16 AM EDT 09/23/2019 06:16:00 AM EDT [facility] CALCIUM IONIZED CALCIUM, IONIZED Timed 09/23/2019 2:16 AM EDT 09/23/2019 06:16:00 AM EDT [facility] BASIC METABOLIC PANEL CALCIUM TOTAL BASIC METABOLIC PANEL Timed 09/23/2019 2:16 AM EDT 09/23/2019 06:16:00 AM EDT [facility] GLUC BLD GLUC MNTR DEV CLEARED FDA SPEC HOME USE POCT GLUCOSE Routine 09/22/2019 5:50 PM EDT 09/22/2019 09:50:00 PM EDT [facility] XR CHEST PORTABLE XR CHEST PORTABLE Timed 09/22/2019 4:26 PM EDT 09/22/2019 08:26:36 PM EDT [facility] POTASSIUM SERUM PLASMA/WHOLE BLOOD POTASSIUM STAT 09/22/2019 1: 15 PM EDT 09/22/2019 05:15:00 PM EDT [facility] MAGNESIUM MAGNESIUM STAT 09/22/2019 1:15 PM EDT 09/22/2019 05:15:00 PM EDT [facility] GLUC BLD GLUC MNTR DEV CLEARED FDA SPEC HOME USE POCT GLUCOSE Routine 09/22/2019 1:13 PM EDT 09/22/2019 05:13:00 PM EDT [facility] US CHEST REAL TIME W/IMAGE DOCUMENTATION US CHEST Routin e 09/22/2019 10:42 AM EDT 09/22/2019 02:42:58 PM EDT [facility] GLUC BLD GLUC MNTR DEV CLEARED FDA SPEC HOME USE POCT GLUCOSE Routine 09/22/2019 8:34 AM EDT 09/22/2019 12:34:00 PM EDT [facility] XR CHEST PORTABLE XR CHEST PORTABLE Routine 09/22/2019 7:50 AM EDT 09/22/2019 11:50:54 AM EDT [facility] PROTHROMBIN TIME PROTIME-INR Routine 09/22/2019 2:03 AM EDT 09/22/2019 06:03:00 AM EDT [facility] BLOOD COUNT COMPLETE AUTOMATED CBC Timed 09/22/2019 2:03 A M EDT 09/22/2019 06:03:00 AM EDT [facility] MAGNESIUM MAGNESIUM Timed 09/22/2019 2:03 AM EDT 09/22/2019 06:03:00 AM EDT [facility] CALCIUM IONIZED CALCIUM, IONIZED Timed 09/22/2019 2:03 AM EDT 09/22/2019 06:03:00 AM EDT [facility] BASIC METABOLIC PANEL CALCIUM TOTAL BASIC METABOLIC PANEL Timed 09/22/2019 2:03 AM EDT 09/22/2019 06:03:00 AM EDT [facility] GLUC BLD GLUC MNTR DEV CLEARED FDA SPEC HOME USE POCT GLUCOSE Routine 09/21/2019 5:37 PM EDT 09/21/2019 09:37:00 PM EDT [facility] GLUC BLD GLUC MNTR DEV CLEARED FDA SPEC HOME USE POCT GLUCOSE Routine 09/21/2019 2:13 PM EDT 09/21/2019 06:13:00 PM EDT [facility] GLUC BLD GLUC MNTR DEV CLEARED FDA SPEC HOME USE POCT GLUCOSE Routine 09/21/2019 5:28 AM EDT 09/21/2019 09:28:00 AM EDT [facility] GLUC BLD GLUC MNTR DEV CLEARED FDA SPEC HOME USE POCT GLUCOSE Routine 09/21/2019 3:39 AM EDT 09/21/2019 07:39:00 AM EDT [facility] PROTHROMBIN TIME PROTIME-INR Timed 09/21/2019 3:36 AM EDT 09/21/2019 07:36:00 AM EDT [facility] BLOOD COUNT COMPLETE AUTOMATED CBC Timed 09/21/2019 3:36 A M EDT 09/21/2019 07:36:00 AM EDT [facility] MAGNESIUM MAGNESIUM Timed 09/21/2019 3:36 AM EDT 09/21/2019 07:36:00 AM EDT [facility] CALCIUM IONIZED CALCIUM, IONIZED Timed 09/21/2019 3:36 AM EDT 09/21/2019 07:36:00 AM EDT [facility] BASIC METABOLIC PANEL CALCIUM TOTAL BASIC METABOLIC PANEL Timed 09/21/2019 3:36 AM EDT 09/21/2019 07:36:00 AM EDT [facility] GLUC BLD GLUC MNTR DEV CLEARED FDA SPEC HOME USE POCT GLUCOSE Routine 09/21/2019 2:07 AM EDT 09/21/2019 06:07:00 AM EDT [facility] POC ARTERIAL BLOOD GAS POC ARTERIAL BLOOD GAS Routine 020 1:20 AM EDT 09/21/2019 05:20:00 AM EDT [facility] THROMBOPLASTIN TIME PARTIAL PLASMA/WHOLE BLOOD APTT STAT 09/21/2019 12:40 AM EDT 09/21/2019 04:40:00 AM EDT [facility] PROTHROMBIN TIME PROTIME-INR STAT 09/21/2019 12:40 AM EDT 09/21/2019 04:40:00 AM EDT [facility] GLUC BLD GLUC MNTR DEV CLEARED FDA SPEC HOME USE POCT GLUCOSE Routine 09/20/2019 11:52 PM EDT 09/21/2019 03:52:00 AM EDT [facility] BLOOD COUNT COMPLETE AUTOMATED CBC STAT 09/20/2019 11:49 P M EDT 09/21/2019 03:49:00 AM EDT [facility] POTASSIUM SERUM PLASMA/WHOLE BLOOD POTASSIUM Routine 09/20/2019 11:49 PM EDT 09/21/2019 03:49:00 AM EDT [facility] GLUC BLD GLUC MNTR DEV CLEARED FDA SPEC HOME USE POCT GLUCOSE Routine 09/20/2019 10:07 PM EDT 09/21/2019 02:07:00 AM EDT [facility] POC ARTERIAL BLOOD GAS POC ARTERIAL BLOOD GAS Routine 020 9:17 PM EDT 09/21/2019 01:17:00 AM EDT [facility] GLUC BLD GLUC MNTR DEV CLEARED FDA SPEC HOME USE POCT GLUCOSE Routine 09/20/2019 9:16 PM EDT 09/21/2019 01:16:00 AM EDT [facility] POC ARTERIAL BLOOD GAS POC ARTERIAL BLOOD GAS Routine 020 8:18 PM EDT 09/21/2019 12:18:00 AM EDT [facility] ECG ROUTINE ECG W/LEAST 12 LDS TRCG ONLY W/O I&R ECG 12-LEAD Routine 09/20/2019 8:00 PM EDT 09/21/2019 12:00:20 AM EDT [facility] GLUC BLD GLUC MNTR DEV CLEARED FDA SPEC HOME USE POCT GLUCOSE Routine 09/20/2019 7:54 PM EDT 09/20/2019 11:54:00 PM EDT [facility] BLOOD COUNT COMPLETE AUTOMATED CBC STAT 09/20/2019 7:51 P M EDT 09/20/2019 11:51:00 PM EDT [facility] MAGNESIUM MAGNESIUM STAT 09/20/2019 7:51 PM EDT 09/20/2019 11:51:00 PM EDT [facility] CALCIUM IONIZED CALCIUM, IONIZED STAT 09/20/2019 7:51 PM EDT 09/20/2019 11:51:00 PM EDT [facility] BASIC METABOLIC PANEL CALCIUM TOTAL BASIC METABOLIC PANEL STAT 09/20/2019 7:51 PM EDT 09/20/2019 11:51:00 PM EDT [facility] XR CHEST FOR SPONGE/NEEDLE/INSTRUMENT COUNT XR CHEST FOR SPONGE/NEEDLE/INSTRUMENT COUNT STAT 09/20/2019 7:17 PM EDT 09/20/2019 11:17:25 PM EDT [facility] POC ARTERIAL BLOOD GAS W LIEN POC ARTERIAL BLOOD GAS W LYFIONA R outine 09/20/2019 6:16 PM EDT 09/20/2019 10:16:00 PM EDT [facility] POC ACT POC ACT Routine 09/20/2019 6:15 PM EDT 020 10:15:00 PM EDT [facility] THROMBOPLASTIN TIME PARTIAL PLASMA/WHOLE BLOOD APTT Routine 09/20/2019 6:14 PM EDT 09/20/2019 10:14:00 PM EDT [facility] PROTHROMBIN TIME PROTIME-INR Routine 09/20/2019 6:14 PM EDT 09/20/2019 10:14:00 PM EDT [facility] POC ARTERIAL BLOOD GAS W LYTES POC ARTERIAL BLOOD GAS W LYTES R outine 09/20/2019 5:26 PM EDT 09/20/2019 09:26:00 PM EDT [facility] POC ACT POC ACT Routine 09/20/2019 5:25 PM EDT 020 09:25:00 PM EDT [facility] POCT VENOUS BLOOD GAS W LYTES POCT VENOUS BLOOD GAS W LIEN Tarango marques 09/20/2019 4:55 PM EDT 09/20/2019 08:55:00 PM EDT [facility] POC ACT POC ACT Routine 09/20/2019 4:54 PM EDT 020 08:54:00 PM EDT [facility] POCT VENOUS BLOOD GAS W LYFIONA POCT VENOUS BLOOD GAS W LIEN Emelina mohan 09/20/2019 4:22 PM EDT 09/20/2019 08:22:00 PM EDT [facility] POC ACT POC ACT Routine 09/20/2019 4:21 PM EDT 020 08:21:00 PM EDT [facility] POCT VENOUS BLOOD GAS W LYFIONA POCT VENOUS BLOOD GAS W LIEN Emelina mohan 09/20/2019 3:50 PM EDT 09/20/2019 07:50:00 PM EDT [facility] POC ACT POC ACT Routine 09/20/2019 3:49 PM EDT 020 07:49:00 PM EDT [facility] POC ARTERIAL BLOOD GAS W LYFIONA POC ARTERIAL BLOOD GAS W LIEN R outine 09/20/2019 3:22 PM EDT 09/20/2019 07:22:00 PM EDT [facility] POCT VENOUS BLOOD GAS W LYTES POCT VENOUS BLOOD GAS W LAVERNEFIONA Emelina polancoe 09/20/2019 3:17 PM EDT 09/20/2019 07:17:00 PM EDT [facility] POC ACT POC ACT Routine 09/20/2019 3:17 PM EDT 020 07:17:00 PM EDT [facility] POC ARTERIAL BLOOD GAS W LYFIONA POC ARTERIAL BLOOD GAS W LIEN R outine 09/20/2019 2:51 PM EDT 09/20/2019 06:51:00 PM EDT [facility] POC ACT POC ACT Routine 09/20/2019 2:50 PM EDT 020 06:50:00 PM EDT [facility] POC ARTERIAL BLOOD GAS W LIEN POC ARTERIAL BLOOD GAS W LIEN R outine 09/20/2019 1:35 PM EDT 09/20/2019 05:35:00 PM EDT [facility] POC ACT POC ACT Routine 09/20/2019 1:34 PM EDT 020 05:34:00 PM EDT [facility] CORONARY ARTERY BYPASS GRAFT (CABG), WITH ENDOSCOPIC V ESSEL PROCUREMENT CORONARY ARTERY BYPASS GRAFT (CABG), WITH ENDOSCOPIC VESSEL PROCUREMENT 09/20/2019 12:58 PM EDT 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 09/20/2019 04:58:00 PM EDT - 09/21/2019 12:25:00 AM EDT 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 [facility] 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 GLUC BLD GLUC MNTR DEV CLEARED FDA SPEC HOME USE POCT GLUCOSE Routine 09/20/2019 11:56 AM EDT 09/20/2019 03:56:00 PM EDT [facility] BLOOD TYPING ABO PREPARE RBC Routine 09/20/2019 12:01 AM EDT 09/20/2019 04:01:00 AM EDT [facility] POC ARTERIAL BLOOD GAS POC ARTERIAL BLOOD GAS Routine 020 9:07 AM EDT 09/17/2019 01:07:00 PM EDT [facility] URNLS DIP STICK/TABLET RGNT AUTO W/O MICROSCOPY URINALYSIS W/O MICRO Routine 09/17/2019 9:00 AM EDT 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 09/17/2019 01:00:00 PM EDT 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 [facility] 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 ROOM TEMP AB SCREEN ROOM TEMP AB SCREEN Routine 09/17/2019 8 :40 AM EDT 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 09/17/2019 12:40:00 PM EDT 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 [facility] 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 BLOOD TYPING ABO TYPE AND SCREEN Routine 09/17/2019 8:40 AM EDT 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 09/17/2019 12:40:00 PM EDT 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 [facility] 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 ECG ROUTINE ECG W/LEAST 12 LDS TRCG ONLY W/O I&R ECG 12-LEAD Routine 09/17/2019 8:31 AM EDT 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 09/17/2019 12:31:53 PM EDT 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 [facility] 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 NT PRO BNP NT PRO BNP Routine 09/17/2019 8:00 AM EDT 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 09/17/2019 12:00:00 PM EDT 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 [facility] 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 THROMBOPLASTIN TIME PARTIAL PLASMA/WHOLE BLOOD APTT Routine 09/17/2019 8:00 AM EDT 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 09/17/2019 12:00:00 PM EDT 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 [facility] 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 PROTHROMBIN TIME PROTIME-INR Routine 09/17/2019 8:00 AM EDT 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 09/17/2019 12:00:00 PM EDT 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 [facility] 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 BLOOD COUNT COMPLETE AUTO&AUTO DIFRNTL WBC COUNT CBC AND DIFFER ENTIAL Routine 09/17/2019 8:00 AM EDT 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 09/17/2019 12:00:00 PM EDT 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 [facility] 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 HEMOGLOBIN GLYCOSYLATED A1C HEMOGLOBIN A1C Routine 09/17/2019 8:00 AM EDT 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 09/17/2019 12:00:00 PM EDT 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 [facility] 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 COMPREHENSIVE METABOLIC PANEL COMPREHENSIVE METABOLIC PANEL Rou marques 09/17/2019 8:00 AM EDT 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 09/17/2019 12:00:00 PM EDT 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 [facility] 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 CARDIAC CATHETERIZATION CARDIAC CATHETERIZATION Routine 08/23/2019 3:21 PM EDT Abnormal stress test 08/23/2019 07:21:33 PM EDT Abnormal stress test [facility] Abnormal stress test Coronary Angiography W/O LHC No LV Gram 08/23/2019 12: 00:00 AM EDT [facility] ([facility]) MYOCARDIAL SPECT MULTIPLE STUDIES 08/06/2019 12:00:00 AM EDT [facility] ([facility]) CV STRS TST XERS&/OR RX CONT ECG PHYS SI&R 08/06/2019 12:00:00 AM EDT [facility] ([facility]) INTERROGATION EVAL REMOTE </90 D 1/2/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 LEAD PM 07/16 12:00:00 AM EDT [facility] ([facility]) INTERROGATION REMOTE </90 D 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 07/17/19 12:00:00 AM EDT [facility] ([facility]) ECG ROUTINE ECG W/LEAST 12 LDS W/I&R 07/11/2019 12:00: 00 AM EDT [facility] ([facility]) Virtual Brief Check In by an MD/BhavaniHP 05/23/2019 12:00:0 0 AM EDT eCW1 ([facility]) BLOOD COUNT COMPLETE AUTO&AUTO DIFRNTL WBC COUNT CBC AND DIFFER ENTIAL STAT 05/04/2019 8:31 AM EST Malignant neoplasm of overlapping sites of bladder 0 01:31:00 PM EST Malignant neoplasm of overlapping sites of bladder [facility] Malignant neoplasm of overlapping sites of bladder CT THORAX W/CONTRAST MATERIAL CT THORAX WITH CONTRAST [id number] Rou marques 04/20/2019 10:23 AM EST Malignant neoplasm of overlapping sites of bladder 0 03:23:42 PM EST Malignant neoplasm of overlapping sites of bladder [facility] Malignant neoplasm of overlapping sites of bladder CT ABDOEN & PELVIS W/CONTRAST MATERIAL CT ABDOMEN PELVIS WI TH CONTRAST [id number] Routine 04/20/2019 10:23 AM EST Malignant neoplasm of overlapping sites of bladder 0 03:23:42 PM EST Malignant neoplasm of overlapping sites of bladder [facility] Malignant neoplasm of overlapping sites of bladder INTERROGATION EVAL REMOTE </90 D 1/2/SUPERVISOR GRINDING LEAD PM 04/17 12:00:00 AM EST [place] ([facility]) INTERROGATION REMOTE </90 D 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 04/17/19 12:00:00 AM NARGIS TODD ([facility]) JOHN VIDEO JOHN VIDEO Routine 04/05/2019 12:30 PM EST 04/05/2019 05:30:05 PM EST [facility] CYSTOURETHROSCOPY, W/BX CYSTOURETHROSCOPY, W/BX 04/05 12:18 PM EST Malignant neoplasm of urinary bladder, unspecified site 04/05/2019 05:18:00 PM EST - 04/05/2019 06:38:00 PM EST Malignant neoplasm of urinary bladder, unspecified site [facility] Malignant neoplasm of urinary bladder, u nspecified site LEVEL I SURG PATHOLOGY GROSS EXAMINATION ONLY SURGICA L PATHOLOGY EXAM ( ONLY) Routine 04/05/2019 12:00 AM EST 04/05/2019 05:00 :00 AM [facility] ECHO TTHRC R-T 2D W/WOM-MODE COMPL SPEC&COLR DOP 03/28 12:00:00 AM EST [facility] ([facility]) NO CHARGE VISIT 03/16/2019 12:00:00 AM EST eCW1 ([facility]) Office Visit, Est Pt., Level 2 FC 03/05/2019 12:00:00 AM EST eCW1 ([facility]) Office Visit, Est Pt., Level 3 PC 03/05/2019 12:00:00 AM EST eCW1 ([facility]) Results ID Date Data Source [id number] 03/27/2020 11:40:37 AM [facility] PELVIS COMPLETE [id number] RESULTInte rpreted by:Lolis Casey [facility] PELVIS LIMITED.INDICATION: Gross hematuria and urinary frequency, [...] rce(s) Supporting Document(s) ID Date Data Source [id number] 03/28/2020 12:42:47 PM [facility] Service Cmnt XXX-Imp : NoneMicroorganism XXX Cult : No growth 1 day Name Value Range Interpretation Code Description Data Rema rce(s) Supporting Document(s) ID Date Data Source [id number] 03/27/2020 01:12:39 PM [facility] Name Value Range Interpretation Code Description Data Rema rce(s) Supporting Document(s) Color of Urine [facility] Clarity of Urine [facility] Specific gravity of Urine by Refractometry automated 1.010 1.003 -1.030 [facility] pH of Urine by Automated test strip 6.0 5.0-8.0 [facility] Protein [Mass/volume] in Urine by Automated test strip 100 mg/dL Neg [facility] Glucose [Mass/volume] in Urine by Automated test strip Neg [facility] Ketones [Mass/volume] in Urine by Automated test strip Neg [facility] Bilirubin.total [Presence] in Urine by Automated test strip Negative [facility] Hemoglobin [Presence] in Urine by Automated test strip Neg ative [facility] Leukocyte esterase [Presence] in Urine by Automated test strip Negative [facility] Nitrite [Presence] in Urine by Automated test strip Negati [facility] Leukocytes [#/area] in Urine sediment by Automated count 38 /HPF 0 -5 H [facility] Erythrocytes [#/area] in Urine sediment by Automated count 162 /HPF 0-3 H [facility] Bacteria [#/area] in Urine sediment by Automated count Non e [facility] Mucus [#/area] in Urine sediment by Microscopy low power field None [facility] ID Date Data Source [id number] 03/27/2020 08:30:23 AM [facility] Name Value Range Interpretation Code Description Data Rema rce(s) Supporting Document(s) Progress Note [facility] [id number] lbm [file] [id number]= ID Date Data Source [id number] 03/25/2020 09:09:00 AM EST [facility] ([facility] Name Value Range Interpretation Code Description Data Rema rce(s) Supporting Document(s) Urine Culture, Routine Laboratory test result [facility] ([facility] SRC:URINE Bacteria identified in Urine by Culture Laboratory test result [facility] ([facility] SRC:URINE ID Date Data Source [id number] 03/25/2020 09:08:00 AM EST [facility] ([facility] Name Value Range Interpretation Code Description Data Rema rce(s) Supporting Document(s) Color Urine Laboratory test result [facility] ([facility] Appearance of Urine Laboratory test result [facility] ([facility] Specific [place] 1.005 1.00-1.03 [facility] ([facility] PH Urine 9.0 5.0-8.0 [...] Laboratory test result Above high normal [facility] ([facility] Ketones Laboratory test result Above high normal [facility] ([facility] Urobilinogen 8.0 EU/dl 0.2-1.0 Above high normal [facility] ([facility] Nitrite Laboratory test result Above high normal [facility] ([facility] Leukocytes Laboratory test result Above high normal [facility] ([facility] ID Date Data Source [id number] 03/25/2020 09:04:00 AM EST [facility] (Famil y [...] HCT IS 5% LESS SOURCE FOR DATA: [employer] 1800 OPERATION MANUAL( AUTOMATED BLOOD COUNTS AND [...] Creat 1.6 mg/dL 0.7-1.2 Above high normal [facility] ([facility] [...] HCT IS 5% LESS SOURCE FOR DATA: [employer] 1800 OPERATION MANUAL( AUTOMATED BLOOD COUNTS AND [...] Glu 112 mg/dL 70-110 Above high normal [facility] ([facility] [...] HCT IS 5% LESS SOURCE FOR DATA: [employer] 1800 OPERATION MANUAL( AUTOMATED BLOOD COUNTS AND [...] >32 mL/min Normal Co2 26.4 mmol/L 22.0-29.0 [facility] ([facility] NORMAL RANGES Age WBC RBC [...] HCT IS 5% LESS SOURCE FOR DATA: [employer] 1800 OPERATION MANUAL( AUTOMATED BLOOD COUNTS AND [...] above >32 mL/min Normal BUN/Creatinine Ratio 18.0 [facility] ([facility] NORMAL RANGES Age [...] HCT IS 5% LESS SOURCE FOR DATA: [employer] 1800 OPERATION MANUAL( AUTOMATED BLOOD COUNTS AND [...] >32 mL/min Normal CA 9.9 mg/dL 8.6-10.2 [place] ([facility] NORMAL [...] HCT IS 5% LESS SOURCE FOR DATA: [employer] 1800 OPERATION MANUAL( AUTOMATED BLOOD COUNTS AND [...] K 5.2 mmol/L 3.5-5.1 Above high normal [facility] ([facility] NORMAL RANGES [...] HCT IS 5% LESS SOURCE FOR DATA: [employer] 1800 OPERATION MANUAL( AUTOMATED BLOOD COUNTS AND [...] >32 mL/min Normal Na 140 mmol/L 136-145 [facility] ([facility] NORMAL RANGES Age [...] HCT IS 5% LESS SOURCE FOR DATA: [employer] 1800 OPERATION MANUAL( AUTOMATED BLOOD COUNTS AND [...] >32 mL/min Normal Anion Gap 15 mmol/L [facility] ([facility] NORMAL RANGES Age WBC RBC HGB [...] HCT IS 5% LESS SOURCE FOR DATA: [employer] 1800 OPERATION MANUAL( AUTOMATED BLOOD COUNTS AND [...] >32 mL/min Normal CL 103.9 mmol/L 98.0-107.0 [facility] ([facility], [...] and above >32 mL/min Normal eGFR Non-Afr. [place] 39 # [facility] ([facility] [...] HCT IS 5% LESS SOURCE FOR DATA: [employer] 1800 OPERATION MANUAL( AUTOMATED BLOOD COUNTS [...] above >32 mL/min Normal eGFR 45 # [facility] ( [facility] [...] HCT IS 5% LESS SOURCE FOR DATA: [employer] 1800 OPERATION MANUAL( AUTOMATED BLOOD COUNTS AND [...] >32 mL/min Normal ID Date Data Source [id number] 03/25/2020 09:04:00 AM [facility]ARGIS TODD ([facility] Name Value Range Interpretation Code Description Data Rema rce(s) Supporting Document(s) WBC 4.5 10E3/uL 4.1-10.9 [place] ([facility] NORMAL RANGES Age WBC RBC [...] HCT IS 5% LESS SOURCE FOR DATA: [employer] 1800 OPERATION MANUAL( AUTOMATED BLOOD COUNTS AND [...] >32 mL/min Normal RBC 4.26 10E6/uL 4.20-6.30 [place] ([facility] NORMAL RANGES Age WBC RBC [...] HCT IS 5% LESS SOURCE FOR DATA: [employer] 1800 OPERATION MANUAL( AUTOMATED BLOOD COUNTS AND [...] HCT IS 5% LESS SOURCE FOR DATA: [employer] 1800 OPERATION MANUAL( AUTOMATED BLOOD COUNTS AND [...] HCT 31.2 % 37.0-51.0 Below low normal [facility] ( [facility] NORMAL RANGES Age WBC RBC [...] HCT IS 5% LESS SOURCE FOR DATA: [employer] 1800 OPERATION MANUAL( AUTOMATED BLOOD COUNTS AND [...] MCV 73.2 fL 80.0-97.0 Below low normal [facility] ( [facility] NORMAL RANGES Age [...] HCT IS 5% LESS SOURCE FOR DATA: [employer] 1800 OPERATION MANUAL( AUTOMATED BLOOD COUNTS AND [...] >32 mL/min Normal PLT 251 10E3/uL 140-440 [facility] ([facility] NORMAL RANGES Age WBC RBC HGB [...] HCT IS 5% LESS SOURCE FOR DATA: [employer] 1800 OPERATION MANUAL( AUTOMATED BLOOD COUNTS AND [...] MCH 23.2 pg 26.0-32.0 Below low normal [facility] ( [facility] NORMAL RANGES Age WBC RBC HGB HCT MCV PLT Adult M 4.1-10.9 4.20-6.30 12.0-18.0 37.0-51.0 80-97 140-440 Adult F 4.1-10.9 4.04-5.48 12.0-18.0 37.0-51.0 80- 140-440 0 -1 Yr 5.0-20.0 3.9-5.9 15-18 [...] >32 mL/min Normal MCHC 31.7 g/dL 31.0-36.0 [facility] NORMAL RANGES Age WBC [...] HCT IS 5% LESS SOURCE FOR DATA: [employer] 1800 OPERATION MANUAL( AUTOMATED BLOOD COUNTS AND [...] RDW-CV 20.6 % 11.5-14.5 Above high normal [facility] (Family [...] HCT IS 5% LESS SOURCE FOR DATA: [employer] 1800 OPERATION MANUAL( AUTOMATED BLOOD COUNTS AND [...] >32 mL/min Normal Lym% 15.9 % 10.0-58.5 [facility] ([facility] NORMAL RANGES Age WBC [...] HCT IS 5% LESS SOURCE FOR DATA: [employer] 1800 OPERATION MANUAL( AUTOMATED BLOOD COUNTS AND [...] >32 mL/min Normal Lym# 0.7 10E3/uL 0.6-4.1 [facility] ([facility] NORMAL RANGES Age WBC RBC [...] HCT IS 5% LESS SOURCE FOR DATA: [employer] 1800 OPERATION MANUAL( AUTOMATED BLOOD COUNTS AND [...] >32 mL/min Normal MXD% 12.8 % 0.1-24.0 [place] ([facility] NORMAL [...] HCT IS 5% LESS SOURCE FOR DATA: [employer] 1800 OPERATION MANUAL( AUTOMATED BLOOD COUNTS AND [...] >32 mL/min Normal Neut% 71.3 % 37.0-92.0 [facility] ([facility] NORMAL [...] HCT IS 5% LESS SOURCE FOR DATA: [employer] 1800 OPERATION MANUAL( AUTOMATED BLOOD COUNTS AND [...] >32 mL/min Normal Neut# 3.2 % 2.0-7.8 [facility] ([facility] NORMAL [...] HCT IS 5% LESS SOURCE FOR DATA: [employer] 1800 OPERATION MANUAL( AUTOMATED BLOOD COUNTS AND [...] >32 mL/min Normal MXD# 0.6 10E3/uL 0.0-1.8 [facility] ([facility] NORMAL RANGES Age WBC RBC [...] HCT IS 5% LESS SOURCE FOR DATA: [employer] 1800 OPERATION MANUAL( AUTOMATED BLOOD COUNTS AND [...] >32 mL/min Normal Comment Laboratory test result [facility] ([facility] NORMAL RANGES Age WBC RBC HGB HCT MCV PLT Adult M 4.1-10.9 4.20-6.30 12.0-18.0 37.0-51.0 80- 140-440 Adult F 4.1-10.9 4.04-5.48 12.0-18.0 37.0-51.0 80- 140-440 0 -1 Yr 5.0-20.0 3.9-5.9 15-18 [...] HCT IS 5% LESS SOURCE FOR DATA: [employer] 1800 OPERATION MANUAL( AUTOMATED BLOOD COUNTS [...] >32 mL/min Normal MPV 10.2 fL 9.0-13.0 [facility] NORMAL RANGES Age WBC [...] HCT IS 5% LESS SOURCE FOR DATA: [employer] 1800 OPERATION MANUAL( AUTOMATED BLOOD COUNTS AND [...] >32 mL/min Normal ID Date Data Source [id number] 03/04/2020 11:04:19 AM EST [facility] Name Value Range Interpretation Code Description Data Rema rce(s) Supporting Document(s) Progress Note [facility] [id number] lbm [file] AgICAgICAgICAgICAgICAgICAgICAgICAgICAgICAgICAgICAgICAgICAgICAgICAgICAgICAgICAgIC AgICAgICAgICAgICAgICAgICAgICANCiAgICAgICAg ICAgICAgICAgICAgICAgICAgICAgICAgICAgICAgICAgICAgICAgICAgICAgICAgICAgICAgICAgICAg ICAgICAgICAgICAgICAgICAgICAgICAgICAgICAgICANCiAgICAgICAgICAgICAgICAgICAgICAgICAg ICAgICAgICAgICAgICAgICAgICAgICAgICAgICAgIC AgICAgICAgICAgICAgICAgICAgICAgICAgICAgICAgICAgICAgICAgICANCiAgICAgICAgICAgICAgIC AgICAgICAgICAgICAgICAgICAgICAgICAgICAgICAgICAgICAgICAgICAgICAgICAgICAgICAgICAgIC AgICAgICAgICAgICAgICAgICAgICAgICANCiAgICAg ICAgICAgICAgICAgICAgICAgICAgICAgICAgICAgICAgICAgICAgICAgICAgICAgICAgICAgICAgICAg ICAgICAgICAgICAgICAgICAgICAgICAgICAgICAgICAgICANCiAgICAgICAgICAgICAgICAgICAgICAg ICAgICAgICAgICAgICAgICAgICAgICAgICAgICAgIC AgICAgICAgICAgICAgICAgICAgICAgICAgICAgICAgICAgICAgICAgICAgICANCiAgICAgICAgICAgIC AgICAgICAgICAgICAgICAgICAgICAgICAgICAgICAgICAgICAgICAgICAgICAgICAgICAgICAgICAgIC AgICAgICAgICAgICAgICAgICAgICAgICAgICANCiAg ICAgICAgICAgICAgICAgICAgICAgICAgICAgICAgICAgICAgICAgICAgICAgICAgICAgICAgICAgICAg ICAgICAgICAgICAgICAgICAgICAgICAgICAgICAgICAgICAgICANCiAgICAgICAgICAgICAgICAgICAg ICAgICAgICAgICAgICAgICAgICAgICAgICAgICAgIC AgICAgICAgICAgICAgICAgICAgICAgICAgICAgICAgICAgICAgICAgICAgICAgICANCiAgICAgICAgIC AgICAgICAgICAgICAgICAgICAgICAgICAgICAgICAgICAgICAgICAgICAgICAgICAgICAgICAgICAgIC AgICAgICAgICAgICAgICAgICAgICAgICAgICAgICAN Cjw/tIHxU3fdtVBppmH2I7nzJr6IUj0SCX2tj6SdXESrFExcjdTvDcqJDtGbFPOqMoxBMtd6ABcuJS7W rXZoY6DkT1CwXZlnUS9XNPWtRDTmzETyGKTmGSDxTqX1PXWvIDodLA1OkFEbOLmhSMTzYHUyMuVqOTXz OSAwIFIgMTEgMCBSIDEzIDAgUiAxNSAwIFIgMTcgMC ADKIQ0QWUzHrRvREhuDN5Vh0AgsNE8COs+Tq3QAQ9bl5GmIUigNPRgQR6chh6SYBtQTuCiT9GsekW3PL WeBJJuDc2ZCMEqYPByzNY5QFXpWXESWtJcO5WupD70JKEWLf9+DHnhrtVpIbaLFuKwCODgf7UrSYz1FG 0XPJBjEEf8rWXjKPAyL4Tsg1UtBu92TMKwRswxP1ol ZmIZbBIzmGOaGDZIPBQrmLHmPrZhNlWnTCGoADckWXMXYCrBKkNhR6Tik8GhVwS3IYIiLjWaGUwfNWSa OQxrPH21sYwnFS3HGZQoDKYfFH85HKZ7OPRmJh6WPz6ZVyBvRL7fcy7HXOZjJHElTlxMCgg3HWrhRF3C nDQhS0ZhjMHxb0aVIfSkH0CNVLR5DWZpMu2EKBZpCq CzFKZpIZvvRU9zNZQxLDBEqFsvrmK2TM8SXY5cgmYgML8EMiOrIg4uIh9RCuScY0BhC7YpOTSeWPVLSB fyGR8DJHzoDY3qNZ5Eh6ZPpGSkeA4ekx6VHPIzIJKrKuetvn8YQqarA3Q9nTygQEOnOkloZEZIMXxkFJ 7LLTHgYRX4LMPaNUUzVNDCNpSgH94uAT6JJ3Kjp37o RbQ2ZNOlZcIpWXfcSS33fVelabUzjJPklYxuXV0PGg7+DQplbmRvYmoNCnhyZWYNCjAgNDINCjAwMDAw PONwDHBvZnT3HvIgXn4TRSLlFDTjXSSfVeNkVOWoWMIrXOanBTCgYEDqLqPaMPNbPVYhSX4SJzCdNCOr TFScYyPoLVJyRESgoo1XSYThYNRgGPB6XrEnGKRkQJ AsWPpzHHPaVBJzHQBpXGAvJWGgTO5TXbXsZULtZRZhMeJvTRYkWGLqzh4NCXQfGBRzOdE2CYDcPNGdCU IxOPiaIWVuHZV8Ndu8ZDIoVBHjDR3CKuLaBIWkUKhiNSSrZSZtHYLnbp9UWZYkURTrUUR2LHCiLAObIK BlGPvjXGJuDJIeUQO2HBJfMIAhRS4ZPiVjFMDlPPB1 WwXmDRZgMWGttu6PJECtEKDhNBP7UJRmWAZtUTZfDVsuUENzFPT0Erl1RSKsZQIqKJ6YEvGcSVVcWNzx ZBFrCGDfIGQsya5WAHGzSRGdZUYdEbJhCIYaARBgFFkwIAFiPZHnYCH9EFAiOJDnUP2PFbSgVQKyKaBw NmWhLIWjSQMtvh4HTHOlMZFnMkizCAReOTGoVWFiEX caIYRtKVWfIUB5QMYlYSShWP1THkEiHIGfXrX1VKThEBXoGXFmco1GWHLtJEKyYRTjPKVlNGDgXZVcHY pgGTOySUD4Wen3GGWkVCAeIY4MWkXtTOSnFgRaOISoFIMlXPIltk1AXFOvHAByLnK1HODoMLCnIZOmRB dpTRFkCQW3DbZrUADzDGRkLX6WHxTcDLXaKvqcWgCg XKGfIOHshc4QCJQqMJLrJAT3NAQlXNDsYOFiACrgTWWtLWM0EJe8QWWtLRCxYL0YDgDjKVWvIbi8BGis CYRzNUMesm9WMLLeJGPsHQw8UoCgGNRnLRBvSUoqGYCqADJ4OVH2PQJqMLHkHH3JVcTwQCGjCCPtUqIw XAJhXAImex5RBTIdNKY6NOShPzLrOXTbWGHkPIgrCM VuXTIzBsD1ZPMxGKAvGJ9KDvHaGTZdHFW9AappEWOjPRVvyd8DTMOxDGC4ATY1ZINoUPTzGBFgNRfaJA TuVPZxGZQeKCVaUTNuHL7OPpPsNBIzUWM3WMeiCGJkDRPgxu6SAFJoMJP0KuD3UWDhWWWvZJYrOBhzXP QyLMTvZeF6OMCyFNGxHM7MVwDaQScjFGIGImc1BWsv W4o2XSV7Rt5BS3Upt4VjBHNqGFOKCLyyGB5woiXdGLWfVs3HU5zCDpjoECW5UGW3QUM6BgCxShDeCnUf DigbHRZgGPA0PjO1ND6oXTIdVeL2CIdpRGXhWSLbQ2ZbVfQ1C9EnRMI0ZNlxZOPrOeLyLN1REi7QEqX7 NPP8nSNoXt6LUAK7JhwRIdOiIQ5SEGc= ID Date Data Source [id number] 02/26/2020 05:20:01 PM [facility] Name Value Range Interpretation Code Description Data Rema rce(s) Supporting Document(s) Progress Note [facility] YYAMUy7uPoVABdFk59/KQNmeIVLvl8HnGUikUSn8HMqhTMShP8JxKKL8dF1kTDF7ATsWAdFpRpXlChK1 lbm [file] ICAgICAgICAgICAgICAgICAgICAgICAgICAgICAgICAgICAgICAgICAgICAgICAgICAgICAgICAgICAg ICAgICAgICAgICAgICAgICAgICAgICAgICAgICAgICANCiAgICAgICAgICAgICAgICAgICAgICAgICAg ICAgICAgICAgICAgICAgICAgICAgICAgICAgICAgIC AgICAgICAgICAgICAgICAgICAgICAgICAgICAgICAgICAgICAgICAgICANCiAgICAgICAgICAgICAgIC AgICAgICAgICAgICAgICAgICAgICAgICAgICAgICAgICAgICAgICAgICAgICAgICAgICAgICAgICAgIC AgICAgICAgICAgICAgICAgICAgICAgICANCiAgICAg ICAgICAgICAgICAgICAgICAgICAgICAgICAgICAgICAgICAgICAgICAgICAgICAgICAgICAgICAgICAg ICAgICAgICAgICAgICAgICAgICAgICAgICAgICAgICAgICANCiAgICAgICAgICAgICAgICAgICAgICAg ICAgICAgICAgICAgICAgICAgICAgICAgICAgICAgIC AgICAgICAgICAgICAgICAgICAgICAgICAgICAgICAgICAgICAgICAgICAgICANCiAgICAgICAgICAgIC AgICAgICAgICAgICAgICAgICAgICAgICAgICAgICAgICAgICAgICAgICAgICAgICAgICAgICAgICAgIC AgICAgICAgICAgICAgICAgICAgICAgICAgICANCiAg ICAgICAgICAgICAgICAgICAgICAgICAgICAgICAgICAgICAgICAgICAgICAgICAgICAgICAgICAgICAg ICAgICAgICAgICAgICAgICAgICAgICAgICAgICAgICAgICAgICANCiAgICAgICAgICAgICAgICAgICAg ICAgICAgICAgICAgICAgICAgICAgICAgICAgICAgIC AgICAgICAgICAgICAgICAgICAgICAgICAgICAgICAgICAgICAgICAgICAgICAgICANCiAgICAgICAgIC AgICAgICAgICAgICAgICAgICAgICAgICAgICAgICAgICAgICAgICAgICAgICAgICAgICAgICAgICAgIC AgICAgICAgICAgICAgICAgICAgICAgICAgICAgICAN CiAgICAgICAgICAgICAgICAgICAgICAgICAgICAgICAgICAgICAgICAgICAgICAgICAgICAgICAgICAg ICAgICAgICAgICAgICAgICAgICAgICAgICAgICAgICAgICAgICAgICANCjw/tODyZ9xqvNKfmkZ9R1vh Yl3UYk1ECQ5uj5JoMGLhLJnvckHlZxdVEmOtNYZbWr cHUut4LKsdXH3TqFOsP8ZuB6FkFJlpUH4XQYFvQNXfcJPsPDJhOHJmHbY2FLCjCMglAI6WkXNwRFsvRO AlZBTwMP4DNYXpL712gzMuJT3FJf6ICzWcWD3kwg4XEEgpITGsRdsDGkd6XVmlNJ4PcGEklZAcZROvYV IVMcOjC8wox9RhLaThGKFNHPkbCS7Pf6BnnEZqGSf+ Wd7VZO4vf5ChUZzzVJFbIL5upk0CEFtADcIvL9PslBjjNWOgr8zaGHZjOT2moPYePOX6LGRqlY7nHWZK SQ1nUVArgxZsMYOLAjThdMYgUg7dDW8ySYDlEJSgWcXyKLTHSO8JFOPtHBBtrHRqLEZmERYFNB6PPCtr HTZ7LCJwdjBxjRJzKGyvEU6IJOPjzgRuKFegGHSUBH o+Qe8EFO2ao3ByVWnjWBNsRA1mno9ZORpIVbIkO1B4yQWtN2T2IUhoPp3UFEKaDAHiFMkbGUFASKanEY 4SIP1lucE4KE3JeOZdPBNmXZDijNEhUOz0N06plLRlADujCA7FSVR+Migue+Qf8RJOKwWFNgSRAkDkCsCF LNCkDoZ4ZxX8RUt1ZzJ3SsSU47eOopshGuNFzaZW5L RZ5bWSYuRRMDND9DiCHojS0dsoUdUMUmLFUQCxEuP10ccJDwLHRnLRQ1IDUbTw7KOFAgL4AgedNhqNxd agUgFXAySOWMIH8MBSnugbXzoBYthUazUO28gPpsDA0UEl6KFmDpJP6tnq4FcSGlPe3WIVViKn6COWIb LIWaVXVdCZU9WMGeGzMnCLykDCJkBQFtVQX2MPHeDF RhST3RUrHwVYLqJMvkHYKiOWImLYSpvu5ZYIMlMWHlGActVQQqHQVkMMGyWUghMXCcMQXtTOT9RQAvIQ PaMF6WJyTvKQWiECLiTcyeQDEmINQtae7ESBOtLKJyZjH2MlQlSBOpZFYjTIzaXBEnNQIpHsLoOFClTR ToXC4BZeQyODKyNKDmZRseEUHeXTNfbc8LHDNlIQBq QhY6LIIxNQEbTUYyTHkaLHVlQEV8JTQ4RIWxJDKwMU2IHkJmGAVaKIP8GtmrFIHjCZQjmd1QJLHeXYYx DHzkVFBpHPEiQAGgXSzeTOPpISR5CtdvLGJlALEuCV3FUwEhDCYmIDO7BXYfUIOvVUKesm4QXDJxUNUb IhslCPSgAZEhKZDvAFtrDUGuFKG3OEY8CIUbHFWcZZ 6YHhAfPOHfFDlqMRXmFPXaPZZuph9QYXJpYSVbGdY7ZNTkRWGdZYPvSVvxEZBfSGN6HFK0TIVwHZYmSA 8JHeJhWINbHTpnYEGyUBWkEIAhuw8BWARuLLKmWIR1CeUmNYOrKDRlKFa0xlOgoIZeIKp5DP6IP3Ryoj KpBgLYVg8Ex895RCNeLEVyHv6AL2grRa4cMMKjYKLM Xr4HTCp3EcGfBRW1KpW8YcDnISF4FzYqGLQtFcvpECLqTaOtKis+HFo7UVDkQtubBqntZOHvTEibJUGr DLJnBEQ6XMGoSDDqMW8lUZUJTp6+VUpgtQYvpAfeHMCUYmT6FYs9DGhcGKTVAb7G ID Date Data Source [id number] 02/19/2020 01:59:55 PM [facility] Name Value Range Interpretation Code Description Data Rema rce(s) Supporting Document(s) Progress Note [facility] PFWWQq7aDuNTTyYe83/WQVrwBGFjf0MpLTzbGYm5VTyiUYKiE0RzLLJ2nD7iGHY8QQpPFxStKvEtUiYp lbm [file] Q+JQ6gBQf+Jc1Wv8YgalP3sjDoYGxnWSD5Dg0DYBOSL3FCIz== ID Date Data Source [id number] 02/19/2020 10:53:47 AM [facility] Name Value Range Interpretation Code Description Data Rema rce(s) Supporting Document(s) Progress Note [facility] WLQDAd5gFsGMCiCn44/PXZzhVLJxb4RtPFjfEXj4DLymBGLhH7TtAUX5cZ3pKXE6RVjBTaTjDbYwRoXu lbm [file] AgICAgICAgICAgICAgICAgICAgICAgICAgICAgICAg ICAgICAgICAgICAgICAgICAgICAgICAgICAgICAgICAgICAgICAgICAgICAgICAgICAgICAgICAgICAg ICAgICAgICANCiAgICAgICAgICAgICAgICAgICAgICAgICAgICAgICAgICAgICAgICAgICAgICAgICAg ICAgICAgICAgICAgICAgICAgICAgICAgICAgICAgIC AgICAgICAgICAgICAgICAgICANCiAgICAgICAgICAgICAgICAgICAgICAgICAgICAgICAgICAgICAgIC AgICAgICAgICAgICAgICAgICAgICAgICAgICAgICAgICAgICAgICAgICAgICAgICAgICAgICAgICAgIC ANCiAgICAgICAgICAgICAgICAgICAgICAgICAgICAg ICAgICAgICAgICAgICAgICAgICAgICAgICAgICAgICAgICAgICAgICAgICAgICAgICAgICAgICAgICAg ICAgICAgICAgICANCiAgICAgICAgICAgICAgICAgICAgICAgICAgICAgICAgICAgICAgICAgICAgICAg ICAgICAgICAgICAgICAgICAgICAgICAgICAgICAgIC AgICAgICAgICAgICAgICAgICAgICANCiAgICAgICAgICAgICAgICAgICAgICAgICAgICAgICAgICAgIC AgICAgICAgICAgICAgICAgICAgICAgICAgICAgICAgICAgICAgICAgICAgICAgICAgICAgICAgICAgIC AgICANCiAgICAgICAgICAgICAgICAgICAgICAgICAg ICAgICAgICAgICAgICAgICAgICAgICAgICAgICAgICAgICAgICAgICAgICAgICAgICAgICAgICAgICAg ICAgICAgICAgICAgICANCiAgICAgICAgICAgICAgICAgICAgICAgICAgICAgICAgICAgICAgICAgICAg ICAgICAgICAgICAgICAgICAgICAgICAgICAgICAgIC AgICAgICAgICAgICAgICAgICAgICAgICANCiAgICAgICAgICAgICAgICAgICAgICAgICAgICAgICAgIC AgICAgICAgICAgICAgICAgICAgICAgICAgICAgICAgICAgICAgICAgICAgICAgICAgICAgICAgICAgIC AgICAgICANCiAgICAgICAgICAgICAgICAgICAgICAg ICAgICAgICAgICAgICAgICAgICAgICAgICAgICAgICAgICAgICAgICAgICAgICAgICAgICAgICAgICAg ICAgICAgICAgICAgICAgICANCjw/hOFdM1uoaSDatrY9V3pmTr5BQd8PAU9uw0NmZJDjKOkjjrViYvwC LyEeDEElUmoLGzh4PHopYF4PxLYxJ3FgF1CfAElaWT 0LVJPvDSCneRGwRMYyECKxQuS2QBAhCBpsYA0VnKAoRXkbWEOcLPJsLgLgJMTiUZRsPDXaNYAoABYLNF FeYPTkEoMcFGFqHQRxAWrcCLGPRMG2ANUfDwZeFCEuTNAhJB2YNGJvV645otUwPP5RYy1SOhNhJT6ljq 5EMVZxREEgJrzWCdu9TNbgWH7KlOHhlOC9CmYmINSR UdOmV5mhy3SkBVNxWFFDYQzxUF2Th6PweGVrFVg+Vp7RJG4ch4YpCGz1HtCgQY1cyt3OGCvMGuDmY5To cPgsVBZde8gxFAVhWP5faVIhHMB4GA8kRKgtK5xxeJbtxiurZKEvXTIyYODoZxThOsIoJVArGKtaZRFR PToZSmAoC8Coy9UgQyB4PWReTuEwXOmhPXZaELmiZZ 62oCawUW6XFPItBFIgGV30ZGAtYRVbGn6CTa0XMjJvJA8pkz0JLSNyMUSyTgyMUll2LNkkAR0QsARcT2 IuwFSnx7tZAiHuN3AHVJD4QMApJx9XNYYbHmMvWFEeMXhdGU2zGBItSPAMpLlxfkH3DG8ZFV9fqhLtPY 6MIhGoEy1iLo6KRvDgA5TqK1HaSMWiEGPGVOsmVJ1I WLenBJ2bNS8Xd2BOxWUhzK5oep2AYBZfAGQdMqeuyp8RWfqhE9U3gKebEJDuUUWdEEXMROqkXR0MOKTh GJV7YXS5CLTdYEFSMzFaH30aZA9BN7Kqm69vUqI6IIXkKyOuPKutYU23aYiddePngWXzvAlqJZ1WTz6+ DQplbmRvYmoNCnhyZWYNCjAgNDQNCjAwMDAwMDAwMD IiLmJ4JqNqKu5FHXPlTDKlNNKgMlQeBXRaGTYqKOkkBMMuDJKsPyT2PAYyZIAxBM1DPlWpYBAjBITgEJ bxGHBoISYoqn1WTASkYEFdLGJ1HmVzAVOpVBPkEFdyYBIgSYGiLlQvUZKaOUAhTW1XZzYyCDSaTEK3WW ytVUYiQPJmvf6IZFYuCTYgCfZ2WqQjSZScWWLgFHzm FKFrHZP6PzZ2FUOmNKDwQW6AJnIyYVNbPNgxBYIzTSHeOMPqoo1EGUCnRXNoOTQ8DCVnZKBrDSBpQXiz LMRlVRUhAZA4KPKjJLQjYS4GSzRwHVKgGHL6XqXpXHIbGYMjyr3BDVVlIFVtOGOlUVIqCQWdRPCkYSmn NROsHRT4QdLwUSSvFYPyTP1JChXmJIIkYHiaXFYiNC RjKNXbcc8JYDDqSCCeDUL1ApCjKAGnFPJvJNejXTIfMGQrEKG9PMCiLMAjLJ4ZObCrTCIsLfSaPNJiDN ErRDPutp5BBPQmFBKwExq2OPFyXURmGRAsJWivUCOgZBV2DRlxUANeHPWrCU2HBmCfIEUqTgB4VyFiBE BqPIVxro7ASRYeFWFlICdsUDDwIRMhARTtKGmyKWYs QRW8UDxdDMCaGAGnYH7OZlGyPJAlHsEtGJutPEGwOMXvlo2ZDSEmCJJvWbR7BFGlPDHbQYZeMBntMCUl UBF5TlIoZXGpELNqEN5OJyAxEBDiViz1FaJfERQrOQTmok2JDAIrOYIoMeZnUVScBVKcNRXtHWflRSTn YTR5AALsJKXqUCZgMJ0FMcLcZNHvTwkwVvXtWGEzAF Ppxt0JENDlURMcKEB9TEYoSXBcWUGbOPmmZYRbBDT5YJW2UIFhDOMjPH4QHjVsJBOdFsl1ECBxKKNmCU Arzm2FJYIzJZF3TCvuUKBjLSFsOBLuCFxgRZBtIAOhEXJaABJeMWPlFQ9EDqFcFKYfQBKhQLFqQCLbFL Lrkc3XJRFbTIW5RwSoEAZqSXMtJMGlZPthMCCcPRNu CDH1NCEdUWFrLQ1LFwSqZHBkZZA3BZOeREDmANSthb2HGDFhEMJ4WuPcZLMtYZHiTOKyZRymQJWpZAF0 SSBxDSYkYEQcDP9CDzCdFACxIYA6HWCaHDNyJGUzpl1WJSTbHFT4HCewREZmVZGeVAZtWCq8xhJieFDr KWq2QO2FI8HhgeWlUBQVSl8Xt268GUFiMORvXo3AQ3 voRk1wBPThBTQPMh0DUJe8XUUeJPAjLcSoXkN8YdY8Z5L5FOB9S2WtScI5ETH9Tay+IDwxNGExMWRmNm AjZudwUdNqLpo6JJdeQsDvJEEnQBBeJQ0yWFODQl7+BXyhxQFfaDxtPDVVBqR3MVq6GPhnQVDQWz1T ID Date Data Source [id number] 02/12/2020 04:19:35 PM [facility] Name Value Range Interpretation Code Description Data Rema rce(s) Supporting Document(s) Progress Note [facility] OLLHXu0pKrVXBaZk52/SCJkfOLExn0WiQUimSVh8WPkhQSOeW9NuRHF6xG2fMDJ2YDaOTtJxOrVpWlB1 lbm [file] AgICAgICAgICAgICAgICAgICAgICAgICAgICAgICAgICAgICAgICAgICAgICAgICAgICAgICAgICAgIC AgICAgICAgICAgICAgICAgICANCiAgICAgICAgICAg ICAgICAgICAgICAgICAgICAgICAgICAgICAgICAgICAgICAgICAgICAgICAgICAgICAgICAgICAgICAg ICAgICAgICAgICAgICAgICAgICAgICAgICAgICANCiAgICAgICAgICAgICAgICAgICAgICAgICAgICAg ICAgICAgICAgICAgICAgICAgICAgICAgICAgICAgIC AgICAgICAgICAgICAgICAgICAgICAgICAgICAgICAgICAgICAgICANCiAgICAgICAgICAgICAgICAgIC AgICAgICAgICAgICAgICAgICAgICAgICAgICAgICAgICAgICAgICAgICAgICAgICAgICAgICAgICAgIC AgICAgICAgICAgICAgICAgICAgICANCiAgICAgICAg ICAgICAgICAgICAgICAgICAgICAgICAgICAgICAgICAgICAgICAgICAgICAgICAgICAgICAgICAgICAg ICAgICAgICAgICAgICAgICAgICAgICAgICAgICAgICANCiAgICAgICAgICAgICAgICAgICAgICAgICAg ICAgICAgICAgICAgICAgICAgICAgICAgICAgICAgIC AgICAgICAgICAgICAgICAgICAgICAgICAgICAgICAgICAgICAgICAgICANCiAgICAgICAgICAgICAgIC AgICAgICAgICAgICAgICAgICAgICAgICAgICAgICAgICAgICAgICAgICAgICAgICAgICAgICAgICAgIC AgICAgICAgICAgICAgICAgICAgICAgICANCiAgICAg ICAgICAgICAgICAgICAgICAgICAgICAgICAgICAgICAgICAgICAgICAgICAgICAgICAgICAgICAgICAg ICAgICAgICAgICAgICAgICAgICAgICAgICAgICAgICAgICANCiAgICAgICAgICAgICAgICAgICAgICAg ICAgICAgICAgICAgICAgICAgICAgICAgICAgICAgIC AgICAgICAgICAgICAgICAgICAgICAgICAgICAgICAgICAgICAgICAgICAgICANCiAgICAgICAgICAgIC AgICAgICAgICAgICAgICAgICAgICAgICAgICAgICAgICAgICAgICAgICAgICAgICAgICAgICAgICAgIC AgICAgICAgICAgICAgICAgICAgICAgICAgICANCjw/ pREsN9uxaGPokjY3X8hxWc7VPg7JGB7ze4VdVXZhSClidbGnHfiGStUlPVPmVnlKTaa6TWbmUT9OfSEh L7ZmN1AnJOfdGI8CZJQzBEXrcDFlLNIjBOQcTvM8EETgACwaJS2MtARxDQxaDILcNDNnMB1ZOQScB832 wlZaFQ7CHz8JFkOiPY7amg3AEShzRFEfAqrTMet9MI edXO4AsQXujYCuSGCdLLCSLlHcE3lkz9IqIyQpLHNUXVtgJN9Qk3YyyBMqBSu+Bp8QTR1vf7IcBGurQS UyGS9kog7BMLyKLoIqU0YaqQovWCSju7ksCYJhDK0zmGTfOKP5WPYzuK7bQMAAZO1nKZNxvmKbBVVZKo KuaDQuXi0xZW3uACRlKSGpSvDiWDEMSK3TXPStQAFg oCKoKKJxJOBMTL1LAEqlRNB1CPIuwvSnqGRiPXxhQS8LWDXfmtErLRxePMIGSWv+Gm3RQO1uh4RzPSct PZTaIU1pxc1GLMkGDeAhM7R8qOGkW2U3EEowHz3JYIPhPLMcAQdpBBCFMAgeDV0YQG0mdkW3QR9GkRXg DACcFSCatDXzZQr3Z67elJFtATsoVW1ODXZ+Migue+Pg 3CZDMxRYWhUEYnTuVgUQUKEzBuJ4YyZ2ITb2QiJ0YbKA06gFybgaAwHMcpHQ3AOC2mMIOoJPNXLJ1PwC XxcU2izoTfEJTmBQPLLlFiO42soFFvMFOwRGU4YVAyZa7OBDBbE4QaiqCkpXuzohGdAXQfGHJYFR0HWI zwmaNsuTVdiWqnVO67bAcyMF3KQq6DRjFtMJ0dil6S nEQyWi1FIWByBq3FOHZtRGBzNYNdCBI1GLVhGmFnDVygRANcAYQzVIH6KYKwWYQgLQ9CNkAiBDJtTYn9 EJLpYYRkWGSesy8IQHEfLYMnOPApDGOcEVWiAYHsCYaiXBWkUFFuEQR8OJKkKTLlBC6FIcHlYMHlUSXp LdpbYJMkMINxhu2TNRPxJAShJtN9ABXnTLMbCYQiMN ylZQNzHNWyFTYcBSFgPQNcHA5INkFsBTVxGTY9OKUuJMCtHAGwol0SDCSuEJCgWea8WeVaJTPfTGSzKQ naRMWjANE2IlJ2ZCPeOMMmMJ5MGlHuVFFvZJP8WlClLRZhGGNjwa5YMIWuWHCgXYSaKaObNEZhRKWoET ydAOEmCTF4GIr0NWWzMVHdHD8ZQeEvIWCzWFH9JUPe NTOmLYLfsz3GMOSjHZDuZfUyJkXdPATjJXJsBOwlWQPxHFQ6XcIwIUGmRSPhWV8LXnDeONJrREjpWIjo MCOzECJnwv2VCILoCXTtZsv4FRLsBVTtEGVnNFhtGBDmGBB7WrF9HQHtYPCeWU7VLeShZIPcKBzzKOev AMTwFCPlnq0WFSSyELFwRXX2XIHaXOCnHAMnDNk6wo EnoYHwGRj5CE7VZ1SqkzHpAqYGCn0Pz175AVVzSARvOq8LS1muZr8hJTNcIPLJTv2QFGq5PIM1A2UuCZ lhUZZcGQF4R8Z8NuxhHKU0FDWsIZGzKSZ+BVlsPLW4XCXfS4S2TiS8KCgoWxWaELA6SKmrCBG7XFU7MT 1xSAQRRy1+IYifjQNvcNlcGENDPwY3Iry3FIztUNWSEd3L ID Date Data Source [id number] 02/06/2020 07:04:00 AM EST [facility] ([facility] Name Value Range Interpretation Code Description Data Rema rce(s) Supporting Document(s) Glucose, Fasting 95 mg/dL 70-100 Normal (applies to non-numeric results) [facility] ([facility] Blood Urea Nitrogen 25 mg/dL 7-18 Above high normal [facility] ([facility] Creatinine For GFR 1.41 mg/dL 0.70-1.30 Above high normal [facility] ([facility] Glomerular Filtration Rate 51.2 Normal (applies to n on-numeric results) [facility] ([facility] <content>Units are mL/min/1.73 m2</content>
<content></content>
<content>Chronic Kidney Disease Staging per NKF:</content>
<content></content>
<content>Stage I & II GFR >=60 Normal to Mildly Decreased</content>
<content>Stage III GFR 30- 59 Moderately Decreased</content>
<content>Stage IV GFR 15-29 Severely Decreased</content>
<content>Stage V GFR <15 Very Little GFR Left</content>
<content>ESRD GFR <15 on SR. MANAGER</content>
<content></content> Potassium Serum 4.9 meq/L 3.5-5.1 Normal (applies to non-numeric results) [facility] ([facility] Sodium Level 142 meq/L 136-145 Normal (applies to non-numeric res ults) [facility] ([facility] Chloride Level 110 meq/L 98-107 Above high normal [facility] ([facility] Carbon Dioxide Level 29 meq/L 21-32 Normal (applies to non-num estela results) [facility] ([facility] Anion Gap 3 meq/L 8-16 Below low normal [facility] ( [facility] Calcium Level 9.5 mg/dL 8.8-10.2 Normal (applies to non-numeric re sults) [facility] ([facility] ID Date Data Source [id number] 01/31/2020 11:57:00 AM EST [facility] ([facility]) Name Value Range Interpretation Code Description Data Rema rce(s) Supporting Document(s) White Blood Count 4.8 10 4.0-10.0 [facility]) Hemoglobin 10.1 g/dL 13.5-17.5 [facility] ([facility]) Hematocrit 32.4 % 42.0-52.0 [facility] ([facility]) Red Blood Count 4.57 10 4.30-6.10 [facility] ([facility]) Mean Corpuscular Hemoglobin 22.1 pg 27.0-33.0 [facility] ([facility]) Mean Corpuscular Volume 70.9 fl 80.0-96.0 M [facility] ([facility]) Platelet Count, Automated 185 10 150-450 [facility] ([facility]) Mean Corpuscular HGB Conc 31.2 g/dL 32.0-36.5 [facility] ([facility]) Red Cell Distribution Width 17.0 % 11.5-14.5 [facility] ([facility]) Nucleated Red Blood Cell % 0.0 % 0-0 MED ENT ([facility]) ID Date Data Source [id number] 01/31/2020 11:57:00 AM EST [facility] Name Value Range Interpretation Code Description Data Erma rce(s) Supporting Document(s) Glucose, Fasting 101 mg/dL 70-100 [facility] ([facility]) Blood Urea Nitrogen 29 mg/dL 7-18 [facility] ([facility]) Glomerular Filtration Rate 54.3 MED [facility] ([facility]) <content>Units are mL/min/1.73 m2</content>
<content></content>
<content>Chronic Kidney Disease Staging per NKF:</content>
<content></content>
<content>Stage I & II GFR >=60 Normal to Mildly Decreased</content>
<content>Stage III GFR 30- 59 Moderately Decreased</content>
<content>Stage IV GFR 15-29 Severely Decreased</content>
<content>Stage V GFR <15 Very Little GFR Left</content>
<content>ESRD GFR <15 on SR. MANAGER</content>
<content></content> Sodium Level 142 meq/L 136-145 [facility] ([facility]) Creatinine For GFR 1.34 mg/dL 0.70-1.30 [facility] ([facility]) Chloride Level 108 meq/L 98-107 [facility] ([facility]) Potassium Serum 5.2 meq/L 3.5-5.1 [facility] ([facility]) Carbon Dioxide Level 30 meq/L 21-32 [facility] ([facility]) Anion Gap 4 meq/L 8-16 [facility] ([facility]) Calcium Level 9.1 mg/dL 8.8-10.2 [facility] ([facility]) ID Date Data Source [id number] 01/29/2020 12:27:46 PM [facility] Name Value Range Interpretation Code Description Data Rema rce(s) Supporting Document(s) Progress Note [facility] JUVIWe1xPaGGSjVt67/IJKyfTDOky9KqEHdyNSk0WGdrHDMaH6LdDMP5jM0aESI6LYvMAbFxWnJyBlHt [facility] [file] AhI6I6HawfEFudKqZ7BJDaRgZoIJ7TEe7FIxV2MRD6dUIlTm4ZGNRiWdhUAgNpPE2HVXd= ID Date Data Source [id number] 01/16/2020 03:31:16 PM [facility] Name Value Range Interpretation Code Description Data Rema rce(s) Supporting Document(s) Operative Note [facility] CRKUQl8yWfKZUbIy92/GUMerOBNhr1YzWDprNZc2JSeiFIDaT3YnUEQ2kA2fIYP4IOxQXnJaFeSiQLP4 lbm [file] NkYj8IWYOzMLOQZbAhPC6QYJz= ID Date Data Source [id number] 01/16/2020 09:44:19 AM [facility] Name Value Range Interpretation Code Description Data Rema rce(s) Supporting Document(s) History and Physical [facility] NBLNHz8hSuRQFdNy78/LQKjzEBJvl4FrBWowYDr9QZyeEMDrW0MuBCB2jN9mHLF6IZaKBhGfAxGhCQF7 lbm [file] ICAgICAgICAgICAgICAgICAgICAgICAgICAgICAgICAgICAgICAgICAgICAgICAgICAgICAgICAgICAg ICAgICAgICAgICANCiAgICAgICAgICAgICAgICAgIC AgICAgICAgICAgICAgICAgICAgICAgICAgICAgICAgICAgICAgICAgICAgICAgICAgICAgICAgICAgIC AgICAgICAgICAgICAgICAgICAgICANCiAgICAgICAgICAgICAgICAgICAgICAgICAgICAgICAgICAgIC AgICAgICAgICAgICAgICAgICAgICAgICAgICAgICAg ICAgICAgICAgICAgICAgICAgICAgICAgICAgICAgICANCiAgICAgICAgICAgICAgICAgICAgICAgICAg ICAgICAgICAgICAgICAgICAgICAgICAgICAgICAgICAgICAgICAgICAgICAgICAgICAgICAgICAgICAg ICAgICAgICAgICAgICANCiAgICAgICAgICAgICAgIC AgICAgICAgICAgICAgICAgICAgICAgICAgICAgICAgICAgICAgICAgICAgICAgICAgICAgICAgICAgIC AgICAgICAgICAgICAgICAgICAgICAgICANCiAgICAgICAgICAgICAgICAgICAgICAgICAgICAgICAgIC AgICAgICAgICAgICAgICAgICAgICAgICAgICAgICAg ICAgICAgICAgICAgICAgICAgICAgICAgICAgICAgICAgICANCiAgICAgICAgICAgICAgICAgICAgICAg ICAgICAgICAgICAgICAgICAgICAgICAgICAgICAgICAgICAgICAgICAgICAgICAgICAgICAgICAgICAg ICAgICAgICAgICAgICAgICANCiAgICAgICAgICAgIC AgICAgICAgICAgICAgICAgICAgICAgICAgICAgICAgICAgICAgICAgICAgICAgICAgICAgICAgICAgIC AgICAgICAgICAgICAgICAgICAgICAgICAgICANCiAgICAgICAgICAgICAgICAgICAgICAgICAgICAgIC AgICAgICAgICAgICAgICAgICAgICAgICAgICAgICAg ICAgICAgICAgICAgICAgICAgICAgICAgICAgICAgICAgICAgICANCiAgICAgICAgICAgICAgICAgICAg ICAgICAgICAgICAgICAgICAgICAgICAgICAgICAgICAgICAgICAgICAgICAgICAgICAgICAgICAgICAg ICAgICAgICAgICAgICAgICAgICANCjw/dSOuQ8ninO FizaU4A4fjQr5AAy2TUQ5jf3HdJBHoALitzcLwYgbXAcImMBErNphRVun7HQxxYJ4IkVNlI4HdY1MwZO kgEE3QBEBjUQWdiJZoWXBfDEOqOfX0DQVyJDkqYF5MdISqVRepICZpTISrMxZmUIPjIBAhMIFePVHzLY DXFOEoUPItJzOpIWZfEYGbQF1IYSCtB598hzKpXi9H No0HDkOqDQ9tvq7QZjAwYIHpUqtJTek7FIsgZN4YfMTniSMrEnXdBCINSiTeT3xal1NjTkJyCWNGFKye LI4Vv0SabBUuYNx+Vd6TZU1xt7PrCTweAdZhYV6yty6KDZsBPzYtO9QonFkdQHviEVIgwJGKwBJfwQTg XGskUBDOMSRejSTiIQ9cEp7rBHMzQLM5TyJ5TZTVDM 4AKHEhEMSyfORkXMViIYLMHH0WKYduWLK9NYUazvXxmPFnJOjpHA8NWTTfjnPpAoAdNUZBLWy+Pg0KZW 0da4BoSFesNzZdLT7bpn5DLEpLZqVhU7S2tVEeF2T1ITepSh7WNNIeIVBvXsNjMETGDWkpNU7GAW0pox K3UY5UjRMkFGVjOGAwdGQmPWb4J35nrWZhAXroEC8V ICA+Migue+Ff4IPKLgUNSsBGSzNeTiWYXCDiRuH9EzR6BKi4AdF0IvYM87zSbktwMoLKgsLZ6QUR7oWOFs ZXMPTT4YlAGhzF8bwxNjMZHdHWDKUrLwV73ceTCmTWGdTGC6FPIkJs9QJDMlC0DbmhNijAgacvBwVWLe IJMLIM6BGSjiwjYmeIGdbFngNG14rOjmZW0HYh2ZKo MsYF2gqy8LmVIyHp9MQZBjYR6GUCNgXWVcCWFuKMI5TEVrJeSrTOxxHQRzWBYuQJZ3FFMrQWJnJU4YMh UfVXNwPlFlSzbnKIHnUPDapp0IKTTeLQIcILLxRQIeDWKnRSHdXSzkLUQaHWWyBCP7XJEpUXHlBW7FRv QnYDCjGGFuLtUpCDQiVDNeov4BHREbAWEvWxYxOUTs ZMGnKMQrSYpdSJKlIWT1LEUiEKCvCKDqCW7ASpQiXJOiZRTrUWjvELLcQXYhvj8DTZCyMFMkQKZ3WGQh TTEsTPVoINouOLFyVWQ2Gzi7YSFmVYMhPU4VVpImJRZxEQY7LCYkKSOaVCIruj3YPAJaIWBiDIVnAeWb YNJuTDGrDLdrXDPbYLWlXum0NDSjXQCfQQ9ITpMtEL GoNGD9DPSuLGJhQYWkpd4LEVRuODIrACEoDAErGTStIFGqYUjhAXUhKOI8TlHdOYXrMAXsOR0EMbAiKV QoCRM3RqHfNYQiUQWose9PYQRuIFYvCMx8UTCnLDZqBGRhGQcqMINlYDO5ICTfDRJkKDGoQG3EWgQoNT RmTArlOLEoCIHaOYLieh9IGHGuLSJyYiMmMhPgXVJz PZJiNQmsAMXeGSE7JGFnPECvOLRcOI2JLmAjIERsQCchGmWrZACcSOPktu1HLRIqFJVsXRD6XmHxPFQq PJBzJZinQHWiTMQ0OrAdBMUbYDJuEY3OBnRjYXPdUvOoYcWrNXWxOTWlmu6PCCBqYQPwNCO5DbIxIFOp ZBXrQTgqIBGtHVRsViVtQKGjWKWaOL4YUqCxTLRhZu X4RGPkPOJxIRDilv8CGPZlLVJeFSPzVvFmSAIkRXBbEZcjINNfREJaPXbzBDAsGNSqGS9LAxDtYJMrDx SkIdytFORrXLOtro0BABXaPTUrHcF6WvWxVUYhTYLiZOsyLSGqUNKvRbpwDREkAFMaMC0XQtDkKPUoSd ImJAQqQLLmLERfyn0QAKPhIYFkHPLrRqWvMBOgVEDj IUinXQFyWFN0SWS1XJIfEJQvFR1VErZmAMznDVFFGxt0NLcmR2m1UAXmKU3JV9Qup6PrIsibCFDFBJjt YC6ruyUlFBVnVw1XC6lFOhrlUnV7FeBeDVY8FSCySoH2LZIjGLE5FcgjKmExUWYjKH5eJNPbOqS9TYX9 ERe4HPOnDSe2UDZ2AYxeSME6DIDwPgV3FxQbGD1XAv8VLuN1EEQ5zCHiNv0WEcQ2DWGVSlEnPF5ATKm= ID Date Data Source [id number] 01/18/2020 07:28:00 AM EST [facility] Surgical Pathology ReportName: Prosper JONESMRN: [id number] Number: [id number] Date: 01/16/2020 00:00Received Date: 01/16/2020 11:56Physician(s): GRAYSON PINZON MD SHAPIRO, OLEG, MDSpecimen(s) ReceivedA: Right lateral wallB: Posterior bladder wallC: [...] PathologistElectronically Signed By Sean Brewer M.D., Attending Uqufximlghc55/20/2020 07:28:21 The attending pathologist named above attests that he/she has personallyreviewed the relevant preparation(s) for the specimen, performedmicroscopic examination when indicated, and rendered the final diagnosis.Unless 'gross-only' is specified, the final diagnosis is based on amicroscopic examination of herbicide service sales representative sections of tissue.Gross DescriptionThe specimen is [...] cm in greatest dimension. Totally submitted in onetnssette. ND/hjgThis report may include one or more immunohistochemical stain results thatuse analyte specific reagents. All positive and negative controls havebeen reviewed by the attending pathologist and are satisfactory. The testswere developed and their performance characteristics determined by [facility] Pathology department. They have not been cleared or approved by the USFood and Drug Administration. The FDA has determined that such clearanceor approval is not necessary. Name Value Range Interpretation Code Description Data Rema rce(s) Supporting Document(s) ID Date Data Source [id number] 01/11/2020 10:07:00 AM EST [facility] Name Value Range Interpretation Code Description [facility] Supporting Document(s) SARS coronavirus 2 RNA [facility] This lab was ordered by [place] [facility] and reported by [facility]. ID Date Data Source [id number] 01/13/2020 07:07:[address] [facility] at: [id number] [place], [place] [id number] Director: Joy Tomlinson PhD, Phone: [phone] Name Value Range Interpretation Code Description Data Rema rce(s) Supporting Document(s) SARS-CoV-2, VIET Not Detected [facility] Detected [facility] This nucleic acid amplification test was [...] SARS-CoV-2 virusand/or diagnosis of COVID-19 infection under [id number](b)(1) of the Act, 21 U.S.C. 360bbb-3(b) (1), [...] Acid Amplification (VIET) ID Date Data Source [id number] 01/07/2020 07:00:00 AM EST [facility] ([facility] Name Value Range Interpretation Code Description Data Rema rce(s) Supporting Document(s) Urine Culture Laboratory test result Normal (applies t o non-numeric results) [facility] ([facility] FULL REPORT IN LAB NOTES (eCW and [facility] ). NO GROWTH ID Date Data Source [id number] 01/07/2020 07:00:00 AM EST [facility] ([facility] Name Value Range Interpretation Code Description Data Rema rce(s) Supporting Document(s) Appearance, Urine Laboratory test result Normal (applies to non-numeric results) [facility] ([facility] ) Color, Urine Laboratory test result Normal (applies to non -numeric results) [facility] ([facility] Specific [place] Urine Auto 1.017 1.002-1.035 Norm al (applies to non-numeric results) [facility] ([facility] ) PH,Urine 7.0 units 5.0-9.0 Normal (applies to non-numeric resul ts) [facility] ([facility] Ketone, Urine Auto Laboratory test result Normal (applies to non-numeric results) [facility] ([facility] ) Glucose, Urine (Ua) Auto Laboratory test result Normal (applies to non-numeric results) [facility] ([facility] ) Protein, Urine Auto Laboratory test result Above high norm al [facility] ([facility] Urobilinogen, Urine Auto 0.2 mg/dL 0.0-2.0 Normal (applies to non-numeric results) [facility] ([facility] ) Bilirubin, Urine Auto Laboratory test result Nor mal (applies to non-numeric results) [facility] ([facility] ) Blood, Urine Blood Laboratory test result Normal (applies to non-numeric results) [facility] ([facility] ) Leukocyte Esterase, Urine Auto Laboratory test result Normal (applies to non- numeric results) [facility] ([facility] ) Nitrite, Urine Auto Laboratory test result Shante l (applies to non-numeric results) [facility] ([facility] ) Bacteria, Urine Auto Laboratory test result Norm al (applies to non-numeric results) [facility] ([facility] ) RBC, Urine Auto 1 /HPF 0-3 Normal (applies to non-numeric results) [facility] ([facility] WBC, Urine Auto 1 /HPF 0-3 Normal (applies to non-numeric results) [facility] ( [facility] Mucus, Urine Laboratory test result Normal (applies to non -numeric results) [facility] ( [facility] Squamous Epithelial Cell Ur AU 0 /HPF 0-6 N ormal (applies to non-numeric results) [facility] ( [facility] ) Hyaline Cast, Urine Auto 1 /LPF 0-1 Normal (applies to non -numeric results) [facility] ([facility] ID Date Data Source [id number] 12/25/2019 12:00:00 AM EDT [facility] Harjinder Carvajal MD Patient Name: CRISTIANE JONES [facility], [address] Date of : 1935[place], [place] [address] Date of Exam: 12/25/2019#: Fax: [phone] EXAM: [...] vertebral body height or alignment. There is ydfdhqtf-hx-jfxriy disc space narrowing at every level,particularly L3-4 [...] chronic changes as described above.MARCO ANTONIO Sorto/Renard you for referring ODIN JONES to our office. Electronically Signed - NANETTE DAVILA DO 12/25/19 15:38 Name Value Range Interpretation Code Description Data Rema rce(s) Supporting Document(s) ID Date Data Source [id number] 12/24/2019 02:19:00 PM EDT [facility] ([facility] Name Value Range Interpretation Code Description Data Rema rce(s) Supporting Document(s) Hemoglobin S [Presence] in Blood by Solubility test Laboratory test result [facility] ([facility] Hemoglobin S/Hemoglobin.total in Blood 0.0 % [facility] ([facility] Hemoglobin F/Hemoglobin.total in Blood 0.5 % 0.0-2.0 [facility] ([facility] Hemoglobin A/Hemoglobin.total in Blood 95.9 % 96.4-98.8 Below lo w normal [facility] ([facility] Hemoglobin A2/Hemoglobin.total in Blood by Chromatography column 3.6 % 1.8-3.2 Above high normal [facility] ([facility] ) Deprecated Hemoglobin.other/Hemoglobin.total [interpretation] in Blood 0.0 % [facility] ([facility] 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 Suggest hematologic and clinical correlation. ID Date Data Source [id number] 12/24/2019 02:19:00 PM EDT [facility] ([facility] Name Value Range Interpretation Code Description Data Rema rce(s) Supporting Document(s) Iron binding capacity [Mass/volume] in Serum or Plasma 235 ug/dL 250-450 Below low normal [facility] ([facility] ) Iron binding capacity.unsaturated [Mass/volume] in Serum or Plasma 195 ug/dL 111-343 [facility] ([facility] Iron [Mass/volume] in Serum or Plasma 40 ug/dL 38-169 [facility] ([facility] Iron saturation [Mass Fraction] in Serum or Plasma 17 % 15-55 [facility] ([facility] ID Date Data Source [id number] 12/24/2019 02:18:00 PM EDT [facility] ([facility] Name Value Range Interpretation Code Description Data Rema rce(s) Supporting Document(s) Thyrotropin [Units/volume] in Serum or Plasma 2.040 ulU/mL 0.60-4.8 [facility] ([facility] ID Date Data Source [id number] 12/24/2019 02:18:00 PM EDT [facility] ([facility] Name Value Range Interpretation Code Description Data Rema rce(s) Supporting Document(s) Chol 94 mg/dL 0-200 [facility] NORMAL RANGES Age WBC [...] HCT IS 5% LESS SOURCE FOR DATA: [employer] 1800 OPERATION MANUAL( AUTOMATED BLOOD COUNTS AND [...] 2-19 YEARS EXCLUSIVE. Trig 49 mg/dL 40-200 [facility] ([facility] NORMAL [...] HCT IS 5% LESS SOURCE FOR DATA: [employer] 1800 OPERATION MANUAL( AUTOMATED BLOOD COUNTS AND [...] HCT IS 5% LESS SOURCE FOR DATA: [employer] 1800 OPERATION MANUAL( AUTOMATED BLOOD COUNTS AND [...] LDL_C 28 Calc 75-129 Below low normal [facility] ( [facility] NORMAL RANGES Age [...] HCT IS 5% LESS SOURCE FOR DATA: [employer] 1800 OPERATION MANUAL( AUTOMATED BLOOD COUNTS AND [...] 2-19 YEARS EXCLUSIVE. Cho/HDL Ratio 1.7 Calc [employer] ([facility] NORMAL RANGES Age WBC RBC HGB [...] HCT IS 5% LESS SOURCE FOR DATA: [employer] 1800 OPERATION MANUAL( AUTOMATED BLOOD COUNTS AND [...] 2-19 YEARS EXCLUSIVE. ID Date Data Source [id number] 12/24/2019 02:18:00 PM EDT [facility] ([facility] Name Value Range Interpretation Code Description Data Rema rce(s) Supporting Document(s) WBC 5.3 10E3/uL 4.1-10.9 [facility] ([facility] NORMAL RANGES Age WBC RBC [...] HCT IS 5% LESS SOURCE FOR DATA: [employer] 1800 OPERATION MANUAL( AUTOMATED BLOOD COUNTS AND [...] HGB 10.3 g/dL 12.0-18.0 Below low normal [facility] ( [...] HCT IS 5% LESS SOURCE FOR DATA: [employer] 1800 OPERATION MANUAL( AUTOMATED BLOOD COUNTS [...] 2-19 YEARS EXCLUSIVE. RBC 4.56 10E6/uL 4.20-6.30 [facility] ([facility] NORMAL RANGES Age WBC [...] HCT IS 5% LESS SOURCE FOR DATA: [employer] 1800 OPERATION MANUAL( AUTOMATED BLOOD COUNTS AND [...] MCH 22.6 pg 26.0-32.0 Below low normal [facility] ( [facility] NORMAL RANGES Age WBC RBC [...] HCT IS 5% LESS SOURCE FOR DATA: [employer] 1800 OPERATION MANUAL( AUTOMATED BLOOD COUNTS AND [...] HCT 33.5 % 37.0-51.0 Below low normal [facility] ( [facility] NORMAL [...] HCT IS 5% LESS SOURCE FOR DATA: [employer] 1800 OPERATION MANUAL( AUTOMATED BLOOD COUNTS AND [...] MCV 73.5 fL 80.0-97.0 Below low normal [facility] ( [facility] [...] HCT IS 5% LESS SOURCE FOR DATA: [employer] 1800 OPERATION MANUAL( AUTOMATED BLOOD COUNTS AND [...] RDW-CV 17.7 % 11.5-14.5 Above high normal [facility] ([facility] NORMAL RANGES [...] HCT IS 5% LESS SOURCE FOR DATA: [employer] 1800 OPERATION MANUAL( AUTOMATED BLOOD COUNTS AND [...] HCT IS 5% LESS SOURCE FOR DATA: [employer] 1800 OPERATION MANUAL( AUTOMATED BLOOD COUNTS [...] 2-19 YEARS EXCLUSIVE. PLT 188 10E3/uL 140-440 [facility] ([facility] NORMAL RANGES Age WBC RBC [...] HCT IS 5% LESS SOURCE FOR DATA: [employer] 1800 OPERATION MANUAL( AUTOMATED BLOOD COUNTS AND [...] 2-19 YEARS EXCLUSIVE. Lym% 15.2 % 10.0-58.5 [facility] ([facility] NORMAL RANGES [...] HCT IS 5% LESS SOURCE FOR DATA: [employer] 1800 OPERATION MANUAL( AUTOMATED BLOOD COUNTS AND [...] 2-19 YEARS EXCLUSIVE. Neut% 74.6 % 37.0-92.0 [facility] ([facility] NORMAL [...] HCT IS 5% LESS SOURCE FOR DATA: [employer] 1800 OPERATION MANUAL( AUTOMATED BLOOD COUNTS AND [...] 2-19 YEARS EXCLUSIVE. MXD% 10.2 % 0.1-24.0 [facility] ([facility] NORMAL [...] HCT IS 5% LESS SOURCE FOR DATA: [employer] 1800 OPERATION MANUAL( AUTOMATED BLOOD COUNTS AND [...] 2-19 YEARS EXCLUSIVE. Lym# 0.8 10E3/uL 0.6-4.1 [facility] ([facility] NORMAL RANGES Age WBC RBC HGB [...] HCT IS 5% LESS SOURCE FOR DATA: [employer] 1800 OPERATION MANUAL( AUTOMATED BLOOD COUNTS AND [...] 2-19 YEARS EXCLUSIVE. Neut# 4.0 % 2.0-7.8 [facility] ([facility] NORMAL [...] HCT IS 5% LESS SOURCE FOR DATA: [employer] 1800 OPERATION MANUAL( AUTOMATED BLOOD COUNTS AND [...] HCT IS 5% LESS SOURCE FOR DATA: [employer] 1800 OPERATION MANUAL( AUTOMATED BLOOD COUNTS AND [...] 2-19 YEARS EXCLUSIVE. MXD# 0.5 10E3/uL 0.0-1.8 [facility] ([facility] NORMAL RANGES Age WBC RBC [...] HCT IS 5% LESS SOURCE FOR DATA: [employer] 1800 OPERATION MANUAL( AUTOMATED BLOOD COUNTS [...] 2-19 YEARS EXCLUSIVE. ID Date Data Source [id number] 12/24/2019 02:18:00 PM EDT [facility] ([facility] Name Value Range Interpretation Code Description Data Rema rce(s) Supporting Document(s) Glu 102 mg/dL 70-110 [facility] ([facility] NORMAL [...] HCT IS 5% LESS SOURCE FOR DATA: [employer] 1800 OPERATION MANUAL( AUTOMATED BLOOD COUNTS AND [...] BUN 24 mg/dL 8-23 Above high normal [facility] ([facility] NORMAL RANGES Age WBC [...] HCT IS 5% LESS SOURCE FOR DATA: [employer] 1800 OPERATION MANUAL( AUTOMATED BLOOD COUNTS AND [...] HCT IS 5% LESS SOURCE FOR DATA: [employer] 1800 OPERATION MANUAL( AUTOMATED BLOOD COUNTS [...] 2-19 YEARS EXCLUSIVE. BUN/Creatinine Ratio 18.6 Calc [facility] ([facility] NORMAL RANGES Age [...] HCT IS 5% LESS SOURCE FOR DATA: [employer] 1800 OPERATION MANUAL( AUTOMATED BLOOD COUNTS AND [...] 2-19 YEARS EXCLUSIVE. Na 141 mmol/L 136-145 [facility] ([facility] NORMAL RANGES Age WBC RBC [...] HCT IS 5% LESS SOURCE FOR DATA: [employer] 1800 OPERATION MANUAL( AUTOMATED BLOOD COUNTS AND [...] 2-19 YEARS EXCLUSIVE. K 5.0 mmol/L 3.5-5.1 [facility] ([facility] NORMAL [...] HCT IS 5% LESS SOURCE FOR DATA: [employer] 1800 OPERATION MANUAL( AUTOMATED BLOOD COUNTS [...] 2-19 YEARS EXCLUSIVE. CL 104.6 mmol/L 98.0-107.0 [facility] ([facility] NORMAL RANGES Age WBC RBC [...] HCT IS 5% LESS SOURCE FOR DATA: [employer] 1800 OPERATION MANUAL( AUTOMATED BLOOD COUNTS AND [...] 2-19 YEARS EXCLUSIVE. Co2 26.4 mmol/L 22.0-29.0 [facility] ([facility] NORMAL RANGES Age WBC RBC HGB [...] HCT IS 5% LESS SOURCE FOR DATA: [employer] 1800 OPERATION MANUAL( AUTOMATED BLOOD COUNTS AND [...] 2-19 YEARS EXCLUSIVE. CA 9.8 mg/dL 8.6-10.2 [facility] ([facility] NORMAL [...] HCT IS 5% LESS SOURCE FOR DATA: [employer] 1800 OPERATION MANUAL( AUTOMATED BLOOD COUNTS AND [...] HCT IS 5% LESS SOURCE FOR DATA: [employer] 1800 OPERATION MANUAL( AUTOMATED BLOOD COUNTS AND [...] TP 6.0 g/dL 6.6-8.7 Below low normal [facility] ( [facility] NORMAL [...] HCT IS 5% LESS SOURCE FOR DATA: [employer] 1800 OPERATION MANUAL( AUTOMATED BLOOD COUNTS AND [...] HCT IS 5% LESS SOURCE FOR DATA: [employer] 1800 OPERATION MANUAL( AUTOMATED BLOOD COUNTS AND [...] 2-19 YEARS EXCLUSIVE. Alp 75.4 U/L 35-129 [facility] ([facility] NORMAL [...] YEARS EXCLUSIVE. Alt (SGPT) 16 U/L 0-41 [facility] ([facility] NORMAL RANGES Age [...] HCT IS 5% LESS SOURCE FOR DATA: [employer] 1800 OPERATION MANUAL( AUTOMATED BLOOD COUNTS AND [...] YEARS EXCLUSIVE. Ast (Sgot) 18 U/L 0-40 [facility] ([facility] NORMAL [...] HCT IS 5% LESS SOURCE FOR DATA: [employer] 1800 OPERATION MANUAL( AUTOMATED BLOOD COUNTS AND [...] YEARS EXCLUSIVE. Osmolality-Calculated 285.2 Calc [facility] ([facility] NORMAL RANGES Age [...] HCT IS 5% LESS SOURCE FOR DATA: [employer] 1800 OPERATION MANUAL( AUTOMATED BLOOD COUNTS [...] 2-19 YEARS EXCLUSIVE. Tbili 0.63 mg/dL 0.0-1.2 [facility] ([facility] NORMAL RANGES Age WBC RBC [...] HCT IS 5% LESS SOURCE FOR DATA: [employer] 1800 OPERATION MANUAL( AUTOMATED BLOOD COUNTS AND [...] HCT IS 5% LESS SOURCE FOR DATA: [employer] 1800 OPERATION MANUAL( AUTOMATED BLOOD COUNTS AND [...] INDIVIDUALA AGED 2-19 YEARS EXCLUSIVE. eGFR Non-Afr. Ug[place]an 38 # [facility] ([facility] [...] HCT IS 5% LESS SOURCE FOR DATA: [employer] 1800 OPERATION MANUAL( AUTOMATED BLOOD COUNTS AND [...] HCT IS 5% LESS SOURCE FOR DATA: [employer] 1800 OPERATION MANUAL( AUTOMATED BLOOD COUNTS AND [...] 2-19 YEARS EXCLUSIVE. ID Date Data Source [id number] 12/24/2019 10:05:00 AM EDT [facility] ([facility]) Name Value Range Interpretation Code Description Data Rema rce(s) Supporting Document(s) Iron 40 38-169 [facility] ([facility]) Iron binding capacity [Mass/volume] in Serum or Plasma 195 [facility] ([facility]) Tibc % Saturation 17 [facility] ([facility]) ID Date Data Source [id number] 12/24/2019 10:05:00 AM EDT [facility] ([facility]) Name Value Range Interpretation Code Description Data Rema rce(s) Supporting Document(s) Cholesterol 94 0-200 [facility] ([facility]) Triglycerides 49 [facility] ([facility]) Cholesterol in LDL [Mass/volume] in Serum or Plasma by calculation 28 [facility] ([facility]) HDL 57 45-65 [facility] ([facility]) Chol/HDL Ratio 1.7 [facility] ([facility]) ID Date Data Source [id number] 12/24/2019 10:05:00 AM EDT [facility] ([facility]) Name Value Range Interpretation Code Description Data Rema rce(s) Supporting Document(s) Red Blood Count 4.56 4.20-6.30 [facility] ([facility]) White Blood Count 5.3 4.1-10.9 [facility] ([facility]) Platelets 188 140-440 [facility] ([facility]) Hematocrit 33.5 37.0-51.0 [facility] ([facility]) Hemoglobin 10.3 12.0-18.0 [facility] ([facility]) ID Date Data Source [id number] 12/24/2019 10:05:00 AM EDT [facility] ([facility]) Name Value Range Interpretation Code Description Data Rema rce(s) Supporting Document(s) Albumin [Mass/volume] in Serum or Plasma 4.0 [facility] ([facility]) Calcium [Mass/volume] in Serum or Plasma 9.8 [facility] ([facility]) Alanine aminotransferase [Enzymatic activity/volume] in Serum or Pl asma 16 [facility] ([facility]) Alkaline phosphatase [Enzymatic activity/volume] in Serum or Plasma 7 5.4 [facility] ([facility]) Carbon dioxide, total [Moles/volume] in Serum or Plasma 26.4 [facility] ([facility]) Chloride [Moles/volume] in Serum or Plasma 104.6 [facility] ([facility]) Protein [Mass/volume] in Serum or Plasma 6.0 [facility] ([facility]) Potassium [Moles/volume] in Serum or Plasma 5.0 [facility] ([facility]) Urea nitrogen [Mass/volume] in Serum or Plasma 24 [facility] ([facility]) Sodium 141 [facility] ([facility]) Aspartate aminotransferase [Enzymatic activity/volume] in Serum or Plasma 18 [facility] ([facility]) Creatinine For GFR 1.3 [facility] ([facility]) Glucose 102 70-110 [facility] ([facility]) ID Date Data Source [id number] 12/19/2019 08:06:08 AM EDT [facility] Name Value Range Interpretation Code Description Data Rema rce(s) Supporting Document(s) History and Physical [facility] [id number] [facility] [file] bsIlhLyIpOq/bobbin cleaner+[id number] [file] [id number]== ID Date Data Source [id number] 12/14/2019 11:13:00 AM EDT [facility] Name Value Range Interpretation Code Description Data Rema rce(s) Supporting Document(s) SARS coronavirus 2 RNA [facility] This lab was ordered by [facility] and reported by [facility]. ID Date Data Source [id number] 12/15/2019 09:07:00 AM EDT [facility] be Performed at: RN - [facility] [address] [id number] Director: Liane Colin MD, Phone: [phone] Name Value Range Interpretation Code Description Data Rema rce(s) Supporting Document(s) SARS-CoV-2, VIET Not Detected Not Detected N [facility] This nucleic acid amplification test was developed [...] SARS-CoV-2 virusand/or diagnosis of COVID-19 infection under [id number](b)(1) of the Act, 21 U.S.C. 360bbb-3(b) (1), [...] Acid Amplification (VIET) ID Date Data Source [id number] 12/10/2019 08:29:00 AM EDT [facility] ([facility] Name Value Range Interpretation Code Description Data Rema rce(s) Supporting Document(s) Urine Culture Laboratory test result Normal (applies t o non-numeric results) [facility] ([facility] FULL REPORT IN LAB NOTES (eCW and [facility] ). NO GROWTH ID Date Data Source [id number] 12/10/2019 08:29:00 AM EDT [facility] ([facility] Name Value Range Interpretation Code Description Data Rema rce(s) Supporting Document(s) Appearance, Urine Laboratory test result Normal (applies to non-numeric results) [facility] ([facility] PH,Urine 6.0 units 5.0-9.0 Normal (applies to non-numeric resul ts) [facility] ([facility] Color, Urine Laboratory test result Normal (applies to non -numeric results) [facility] ([facility] Specific [place] Urine Auto 1.017 1.002-1.035 Norm al (applies to non-numeric results) [facility] ([facility] ) Glucose, Urine (Ua) Auto Laboratory test result Normal (applies to non-numeric results) [facility] ([facility] ) Protein, Urine Auto Laboratory test result Above high norm al [facility] ([facility] Bilirubin, Urine Auto Laboratory test result Nor mal (applies to non-numeric results) [facility] ([facility] ) Urobilinogen, Urine Auto 2.0 mg/dL 0.0-2.0 Above high normal [facility] ([facility] Ketone, Urine Auto Laboratory test result Normal (applies to non-numeric results) [facility] ([facility] ) Blood, Urine Blood Laboratory test result Normal (applies to non-numeric results) [facility] ([facility] ) Nitrite, Urine Auto Laboratory test result Shante l (applies to non-numeric results) [facility] ([facility] ) Leukocyte Esterase, Urine Auto Laboratory test result Normal (applies to non- numeric results) [facility] ([facility] ) Bacteria, Urine Auto Laboratory test result Norm al (applies to non-numeric results) [facility] ([facility] ) RBC, Urine Auto 3 /HPF 0-3 Normal (applies to non-numeric results) [facility] ([facility] WBC, Urine Auto 0 /HPF 0-3 Normal (applies to non-numeric results) [facility] ([facility] Squamous Epithelial Cell Ur AU 0 /HPF 0-6 N ormal (applies to non-numeric results) [facility] ([facility] Hyaline Cast, Urine Auto 0 /LPF 0-1 Normal (applies to non -numeric results) [facility] ([facility] ID Date Data Source [id number] 12/10/2019 08:25:00 AM EDT [place] ([facility] Name Value Range Interpretation Code Description Data Rema rce(s) Supporting Document(s) Glucose, Fasting 98 mg/dL 70-100 Normal (applies to non-numeric results) [facility] ([facility] [facility] Creatinine For GFR 1.26 mg/dL 0.70-1.30 Normal (applies to non -numeric results) [facility] ([facility] Glomerular Filtration Rate 58.3 Normal (applies to n on-numeric results) [facility] ([facility] <content>Units are mL/min/1.73 m2</content>
<content></content>
<content>Chronic Kidney Disease Staging per NKF:</content>
<content></content>
<content>Stage I & II GFR >=60 Normal to Mildly Decreased</content>
<content>Stage III GFR 30-59 Moderately Decreased</content>
<content>Stage IV GFR 15-29 Severely Decreased</content>
<content>Stage V GFR <15 Very Little GFR Left</content>
<content>ESRD GFR <15 on SR. MANAGER</content>
<content></content> Blood Urea Nitrogen 23 mg/dL 7-18 Above high normal [facility] ([facility] Potassium Serum 4.8 meq/L 3.5-5.1 Normal (applies to non-numeric results) [facility] ([facility] Sodium Level 142 meq/L 136-145 Normal (applies to non-numeric res ults) [facility] ([facility] Chloride Level 107 meq/L 98-107 Normal (applies to non-numeric r esults) [facility] ([facility] Carbon Dioxide Level 31 meq/L 21-32 Normal (applies to non-num estela results) [facility] ([facility] Calcium Level 8.7 mg/dL 8.8-10.2 Below low normal [facility] ([facility] Anion Gap 4 meq/L 8-16 Below low normal [facility] ( [facility] ID Date Data Source [id number] 12/10/2019 08:25:00 AM EDT [facility] ([facility] Name Value Range Interpretation Code Description Data Rema rce(s) Supporting Document(s) Inr 1.53 Normal (applies to non-numeric resul ts) [facility] ([facility] THERAPUTIC HUMAN INR VALUES INDICATIONS NORMAL RANGES PROPHYLAXIS/TREATMENT OF: VENOUS THROMBOSIS 2.0-3.0 PULMONARY EMBOLISM 2.0-3.0 PREVENTION OF SYSTEMIC EMBOLISM FROM: TISSUE HEART VALVES 2.0-3.0 ACUTE MYOCARDIAL INFARCTION 2.0-3.0 VALVULAR HEART DISEASE 2.0-3.0 ATRIAL FIBRILLATION 2.0-3.0 MECHANICAL VALVES(HIGH RISK) 2.5-3.5 RECURRENT MYOCARDIAL INFARCTION 2.5-3.5 Prothrombin Time 18.7 s 12.5-14.3 Above high normal M [facility] ([facility] ID Date Data Source [id number] 12/10/2019 08:25:00 AM EDT [facility] ([facility] Name Value Range Interpretation Code Description Data Rema rce(s) Supporting Document(s) Red Blood Count 4.58 10 4.30-6.10 Normal (applies to non-numeric results) [facility] ([facility] White Blood Count 4.8 10 4.0-10.0 Normal (applies to non-numeri c results) [facility] ([facility] Hemoglobin 10.3 g/dL 13.5-17.5 Below low normal [facility] ( [facility] Hematocrit 33.5 % 42.0-52.0 Below low normal [facility] ( [facility] Mean Corpuscular Volume 73.1 fl 80.0-96.0 Below low normal [facility] ([facility] Red Cell Distribution Width 17.5 % 11.5-14.5 Above high normal [facility] ([facility] Mean Corpuscular HGB Conc 30.7 g/dL 32.0-36.5 Below low normal [facility] ([facility] Mean Corpuscular Hemoglobin 22.5 pg 27.0-33.0 Below low normal [facility] ([facility] Lymph % 13.4 % 24.0-44.0 Below low normal [facility] ( [facility] Neutrophils % 72.2 % 36.0-66.0 Above high normal [facility] ([facility] Platelet Count, Automated 165 10 150-450 Normal (applies to non-numeric results) [facility] ([facility] [place] % 9.3 % 0.0-5.0 Above high normal [facility] ([facility] Eos % 4.3 % 0.0-3.0 Above high normal [facility] ([facility] Baso % 0.4 % 0.0-1.0 Normal (applies to non-numeric resul ts) [facility] ([facility] Nucleated Red Blood Cell % 0.0 % 0-0 Normal (applies to n on-numeric results) [facility] ([facility] Immature Granulocyte % 0.4 % 0-3.0 Normal (applies to non-n umeric results) [facility] ([facility] Lymph # 0.7 10 1.5-5.0 Below low normal [facility] ( [facility] [place] # 0.5 10 0.0-0.8 Normal (applies to non-numeric resul ts) [facility] ([facility] Neutrophils # 3.5 10 1.5-8.5 Normal (applies to non-numeric re sults) [facility] ([facility] Eos # 0.2 10 0.0-0.5 Normal (applies to non-numeric resul ts) [facility] ([facility] Baso # 0.0 10 0.0-0.2 Normal (applies to non-numeric resul ts) [facility] ([facility] ID Date Data Source [id number] 12/10/2019 08:18:00 AM EDT [facility] ([facility]) Name Value Range Interpretation Code Description Data Rema rce(s) Supporting Document(s) White Blood Count 4.8 10 4.0-10.0 [facility] ([facility]) Red Blood Count 4.57 10 4.30-6.10 [facility] ([facility]io [facility]) Hemoglobin 10.0 g/dL 13.5-17.5 [facility] ([facility]) Hematocrit 33.1 % 42.0-52.0 [facility] ([facility]) Mean Corpuscular Volume 72.4 fl 80.0-96.0 M [facility]ENT ([facility]) Mean Corpuscular HGB Conc 30.2 g/dL 32.0-36.5 [facility] ([facility]) Red Cell Distribution Width 17.5 % 11.5-14.5 [facility] ([facility]) Mean Corpuscular Hemoglobin 21.9 pg 27.0-33.0 [facility] ([facility]) Platelet Count, Automated 175 10 150-450 [facility] ([facility]) Nucleated Red Blood Cell % 0.0 % 0-0 MED [facility] ([facility]) ID Date Data Source [id number] 12/10/2019 08:18:00 AM EDT [facility] ([facility] Name Value Range Interpretation Code Description Data Rema rce(s) Supporting Document(s) Red Blood Count 4.57 10 4.30-6.10 Normal (applies to non-numeric results) [facility] ([facility] White Blood Count 4.8 10 4.0-10.0 Normal (applies to non-numeri c results) [facility] ([facility] Mean Corpuscular Volume 72.4 fl 80.0-96.0 Below low normal [facility] ([facility] Hemoglobin 10.0 g/dL 13.5-17.5 Below low normal [facility] ( [facility] Hematocrit 33.1 % 42.0-52.0 Below low normal [facility] ( [facility] Mean Corpuscular Hemoglobin 21.9 pg 27.0-33.0 Below low normal [facility] ([facility] Red Cell Distribution Width 17.5 % 11.5-14.5 Above high normal [facility] ([facility] Mean Corpuscular HGB Conc 30.2 g/dL 32.0-36.5 Below low normal [facility] ([facility] Platelet Count, Automated 175 10 150-450 Normal (applies to non-numeric results) [facility] ([facility] ) Nucleated Red Blood Cell % 0.0 % 0-0 Normal (applies to n on-numeric results) [facility] ([facility] ID Date Data Source [id number] 12/03/2019 07:42:00 AM EDT [facility] ([facility] Name Value Range Interpretation Code Description Data Rema rce(s) Supporting Document(s) Inr 1.70 [facility] ([facility]) THERAPUTIC HUMAN INR VALUES INDICATIONS NORMAL RANGES PROPHYLAXIS/TREATMENT OF: VENOUS THROMBOSIS 2.0-3.0 PULMONARY EMBOLISM 2.0-3.0 PREVENTION OF SYSTEMIC EMBOLISM FROM: TISSUE HEART VALVES 2.0-3.0 ACUTE MYOCARDIAL INFARCTION 2.0-3.0 VALVULAR HEART DISEASE 2.0-3.0 ATRIAL FIBRILLATION 2.0-3.0 MECHANICAL VALVES(HIGH RISK) 2.5-3.5 RECURRENT MYOCARDIAL INFARCTION 2.5-3.5 Prothrombin Time 20.4 s 12.5-14.3 [facility] [place] ID Date Data Source [id number] 11/21/2019 09:37:00 AM EDT [facility] ([facility] Name Value Range Interpretation Code Description Data Rema rce(s) Supporting Document(s) Blood Urea Nitrogen 20 mg/dL 7-18 [facility] ([facility]) Glucose, Fasting 98 mg/dL 70-100 [facility] ([facility] Creatinine For GFR 1.31 mg/dL 0.70-1.30 [facility] ([facility]) Glomerular Filtration Rate 55.8 [facility] ([facility]) <content>Units are mL/min/1.73 m2</content>
<content></content>
<content>Chronic Kidney Disease Staging per NKF:</content>
<content></content>
<content>Stage I & II GFR >=60 Normal to Mildly Decreased</content>
<content>Stage III GFR 30-59 Moderately Decreased</content>
<content>Stage IV GFR 15-29 Severely Decreased</content>
<content>Stage V GFR <15 Very Little GFR Left</content>
<content>ESRD GFR <15 on SR. MANAGER</content>
<content></content> Sodium Level 142 meq/L 136-145 [facility] ([facility]) Carbon Dioxide Level 29 meq/L 21-32 [facility] ([facility]) Chloride Level 109 meq/L 98-107 [facility] ([facility]iol [facility]) Potassium Serum 4.7 meq/L 3.5-5.1 [facility] ([facility]) Anion Gap 4 meq/L 8-16 [facility] Calcium Level 8.9 mg/dL 8.8-10.2 [facility] ([facility]iol[facility]) ID Date Data Source [id number] 11/21/2019 09:37:00 AM EDT [facility] ([facility]) Name Value Range Interpretation Code Description Data Rema rce(s) Supporting Document(s) Hemoglobin 9.7 g/dL 13.5-17.5 [facility] ([facility]) White Blood Count 5.0 10 4.0-10.0 [facility] ([facility]) Red Blood Count 4.33 10 4.30-6.10 [facility] ([facility]) Mean Corpuscular Volume 72.7 fl 80.0-96.0 M [facility] ([facility]) Hematocrit 31.5 % 42.0-52.0 [facility] ([facility]) Mean Corpuscular Hemoglobin 22.4 pg 27.0-33.0 [facility] (Cardiology [facility]) Red Cell Distribution Width 17.9 % 11.5-14.5 [facility] (Cardiology [facility]) Mean Corpuscular HGB Conc 30.8 g/dL 32.0-36.5 [facility] (Cardiology [facility]) Nucleated Red Blood Cell % 0.0 % 0-0 [facility] (Cardiology [facility]) Platelet Count, Automated 180 10 150-450 [facility] ([address] [facility]) ID Date Data Source [id number] 11/21/2019 09:37:00 AM EDT [facility] ([facility] Name Value Range Interpretation Code Description Data Rema rce(s) Supporting Document(s) Magnesium [Mass/volume] in Serum or Plasma Laboratory test result [facility] (Cardiology [facility]) ID Date Data Source [id number] 11/21/2019 09:34:00 AM EDT [facility] ([facility] Name Value Range Interpretation Code Description Data Rema rce(s) Supporting Document(s) Prothrombin Time 34.2 s 12.5-14.3 [facility] ([facility] Inr 3.28 [facility] ([facility]) THERAPUTIC HUMAN INR VALUES INDICATIONS NORMAL RANGES PROPHYLAXIS/TREATMENT OF: VENOUS THROMBOSIS 2.0-3.0 PULMONARY EMBOLISM 2.0-3.0 PREVENTION OF SYSTEMIC EMBOLISM FROM: TISSUE HEART VALVES 2.0-3.0 ACUTE MYOCARDIAL INFARCTION 2.0-3.0 VALVULAR HEART DISEASE 2.0-3.0 ATRIAL FIBRILLATION 2.0-3.0 MECHANICAL VALVES(HIGH RISK) 2.5-3.5 RECURRENT MYOCARDIAL INFARCTION 2.5-3.5 ID Date Data Source [id number] 11/14/2019 08:36:00 AM EDT [facility] ([facility] Name Value Range Interpretation Code Description Data Rema rce(s) Supporting Document(s) Glucose, Fasting 95 mg/dL 70-100 [facility] [place] Blood Urea Nitrogen 26 mg/dL 7-18 [facility] (Ca rdiology [facility]) Glomerular Filtration Rate 58.9 [facility] (Cardiology [facility]) <content>Units are mL/min/1.73 m2</content>
<content></content>
<content>Chronic Kidney Disease Staging per NKF:</content>
<content></content>
<content>Stage I & II GFR >=60 Normal to Mildly Decreased</content>
<content>Stage III GFR 30- 59 Moderately Decreased</content>
<content>Stage IV GFR 15-29 Severely Decreased</content>
<content>Stage V GFR <15 Very Little GFR Left</content>
<content>ESRD GFR <15 on SR. MANAGER</content>
<content></content> Creatinine For GFR 1.25 mg/dL 0.70-1.30 [facility] ([facility]) Potassium Serum 4.7 meq/L 3.5-5.1 [facility] ([facility]) Sodium Level 141 meq/L 136-145 [facility] ([facility]) Chloride Level 108 meq/L 98-107 [facility] ([facility]) Anion Gap 3 meq/L 8-16 [facility] Carbon Dioxide Level 30 meq/L 21-32 [facility] ([facility]) Calcium Level 9.0 mg/dL 8.8-10.2 [facility] ([facility]) ID Date Data Source [id number] 11/14/2019 08:36:00 AM EDT [facility] ([facility]i [facility]) Name Value Range Interpretation Code Description Data Rema rce(s) Supporting Document(s) Red Blood Count 3.88 10 4.30-6.10 [facility] ([facility]) White Blood Count 4.9 10 4.0-10.0 [facility] ([facility]) Mean Corpuscular Volume 74.5 fl 80.0-96.0 M [facility] ([facility]) Hemoglobin 8.9 g/dL 13.5-17.5 [facility] ([facility]) Hematocrit 28.9 % 42.0-52.0 [facility] ([facility]) Mean Corpuscular HGB Conc 30.8 g/dL 32.0-36.5 [facility] (Cardiology [facility]) Mean Corpuscular Hemoglobin 22.9 pg 27.0-33.0 [facility] (Cardiology [facility]) Platelet Count, Automated 221 10 150-450 [facility] ([address] [facility]) Red Cell Distribution Width 18.8 % 11.5-14.5 [facility] (Cardiology [facility]) Nucleated Red Blood Cell % 0.0 % 0-0 [facility] (Cardiology [facility]) ID Date Data Source [id number] 10/29/2019 12:59:00 PM EDT [facility] ([facility] Name Value Range Interpretation Code Description Data Rema rce(s) Supporting Document(s) Inr 1.64 [facility] ([facility]) THERAPUTIC HUMAN INR VALUES INDICATIONS NORMAL RANGES PROPHYLAXIS/TREATMENT OF: VENOUS THROMBOSIS 2.0-3.0 PULMONARY EMBOLISM 2.0-3.0 PREVENTION OF SYSTEMIC EMBOLISM FROM: TISSUE HEART VALVES 2.0-3.0 ACUTE MYOCARDIAL INFARCTION 2.0-3.0 VALVULAR HEART DISEASE 2.0-3.0 ATRIAL FIBRILLATION 2.0-3.0 MECHANICAL VALVES(HIGH RISK) 2.5-3.5 RECURRENT MYOCARDIAL INFARCTION 2.5-3.5 Prothrombin Time 19.8 s 11.8-14.0 [facility] ([facility] ID Date Data Source [id number] 10/25/2019 03:07:22 PM EDT [facility]FORMATIONPatient MRN Name Date of Age Gend*PT [id number] Odin Jones 1935 84 years M IPPT Location Admission Date/Time Visit ID Attending [id number] 10/16/19 1427 --- --- EPI ID CSN Admitting Provider [id number] Elizabeth De La Garza MD([id number]) Attestation signed by Elizabeth De La Garza MD at 10/25/2019 3:07 PMI saw and evaluated the patient and reviewed Wesley's note. I agree with thehistory, physical and medical decision makingSignature: HANNAH Montesate: October 25, 2019Time: 3:07 PM --Surgical Discharge SummaryOdin SaeedRN: [id number] date: 10/16/2019Admitting Physician: HANNAH Montesischarge date and [...] 09/20/2019 by . Pt was discharged to [facility] on POD 8 and then readmitted briefly withdyspnea. He was diur esed which improved this. Pt was [facility] he received a call stating that his pacemaker lead ismalfunctioning.Hospital Course & Complications: The patient was admitted to [facility] on 10/16/19. 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 Myocardial infarction [...] Name Value Range Interpretation Code Description Data [facility] rce(s) Supporting Document(s) ID Date Data Source [id number] 10/24/2019 03:18:13 AM EDT [facility] Name Value Range Interpretation Code Description Data [facility] rce(s) Supporting Document(s) SODIUM 141 mmol/L (136-145) [facility] POTASSIUM 5.0 mmol/L (3.6-5.2) [facility] CHLORIDE 107 mmol/L (100-108) [facility] CO2 31 mmol/L (22-31) [facility] ANION GAP 3 mmol/L (7-16) L [facility] UREA NITROGEN 29 mg/dL (7-24) H [facility] CREATININE 1.45 mg/dL (0.80-1.30) H [facility] BUN/CREAT RATIO 20.0 RATIO (10.0-20.0) [facility] GLUCOSE 126 mg/dL (70-99) [facility] CALCIUM 8.9 mg/dL (8.4-10.2) [facility] GFR 47 ml/min/1.73m2 (>59) L [facility] GFR ( AMER) 56 ml/min/1.73m2 (>59) L [facility] GFR INTERPRETATION [facility] --NORMAL KIDNEY FUNCTION OR MILD DISEASE - GFR >OR= 60CHRONIC KIDNEY DISEASE - GFR 15 - 59RENAL FAILURE - GFR <15 Est. GFR calculation based on the MDRDstudy equation, which assumes a steadystate for creatinine. Est. GFR should notbe used for medication dosing. ID Date Data Source [id number] 10/24/2019 02:55:01 AM EDT [facility] Name Value Range Interpretation Code Description Data Rema rce(s) Supporting Document(s) PT 13.1 s (9.2-11.9) H [facility] INR 1.26 [facility] SUGGESTED THERAPEUTIC RANGES USING INR F ORSTABILIZED ANTICOAGULATED PATIENTS:STANDARD DOSE THERAPY INR 2.0-3.0 DVT, PE, PREVENT DVT OR EMBOLISMHIGH DOSE THERAPY INR 2.5-3.5 PREVENT EMBOLISM FROM MECHANICAL HEART VALVE ID Date Data Source [id number] 10/24/2019 02:45:52 AM EDT [facility] Name Value Range Interpretation Code Description Data Rema rce(s) Supporting Document(s) WBC 6.7 10*3/uL (4.1-11.0) [facility] RBC 3.60 10*6/uL (4.60-6.10) L [facility] HGB 8.0 g/dL (13.5-18.0) L [facility] HCT 25.7 % (41.0-53.0) L [facility] MCV 71.2 fL (80.0-95.0) L [facility] MCH 22.3 pg (27.0-32.0) L [facility] MCHC 31.3 g/dL (32.0-36.0) L [facility] RDW 17.9 % (10.5-14.5) H [facility] PLT 151 10*3/uL (150-450) [facility] MPV 8.6 fL (7.1-10.7) [facility] ID Date Data Source [id number] 10/23/2019 05:13:40 PM EDT [facility] INFORMATIONPatient MRN Name Date of Age Gend*PT [id number] Odin Jones 1935 84 years M IPPT Location Admission Date/Time Visit ID Attending Provider --- --- --- --- EPI ID CSN Admitting Provider [id number] ---[place] EXAMPerformed by: Terry Patino MDInformation: Diagnostic [...] rce(s) Supporting Document(s) ID Date Data Source [id number] 10/23/2019 04:09:37 PM EDT [address] [id number] Name: ODIN PLASCENCIARDOB: 1935Sex: MOrdering Provider: SEAN YARBROUGHuthvinay Prov: SEAN ROCKWELLAReferring Provider: Procedure Performed: XR CHEST PORTABLEExam Date: 10/23/2019 16:05MRN: [id number] Number: [id number] Class: InpatientAccount #: [id number] for Exam: ppmTechnique: AP portable view obtained.Comparison: Radiograph earlier same dayFindings: There is now a left-sided dual-lead pacemaker. Single frontal view leads appear satisfactorily positioned. No pneumothorax. There is increased den sity at both lung bases left greater than right compatible bibasilar atelectasis/consolidation.IMPRESSION: Bibasilar atelectasis/consolidation left greater than right. No pneumothorax.Report electronically signed by: NATALIE KITCHEN On 10/23/2019 4:09 PMWorkstation ID: [id number] Name Value Range Interpretation Code Description Data Rema rce(s) Supporting Document(s) ID Date Data Source [id number] 10/23/2019 03:50:01 PM EDT [facility] INFORMATIONPatient MRN Name Date of Age Gend*PT [id number] Odin Jones 1935 84 years M IPPT Location Admission Date/Time Visit ID [facility] --- Elizabeth De La Garza MD([id number]) EPI ID CSN Admitting Provider [id number] Elizabeth De La Garza MD([id number]) Operative ReportPatient Name: Odin Jones of : 1935 Age: 84 yearsGender: male Primary Physician: PCP PROVIDER REQUESTEDDate of Surgery: 10/23/2019 PCP Phone: NoneElectrophysiologist: Winnie Garciaistants: NoneProcedure: Pacemaker system extraction Insertion of dual-chamber [...] a 1 silk tie. Using a 9 [place] sub-C mechanical sheaththe right ventricular lead was extracted in its entirety. An 8 Frenchintroducer was inserted over 1 of the guidewires and the guidewire was removed.A new right ventricular pacing lead was advanced the RV apex. Appropriatepacing and sensing parameters were obtained. The sheath was removed. The leadwas secured the pocket with 1 silk x2. A second 8 [place] introducer was placedover the second guidewire and [...] was then removed. Hemostasis wasmaintained with a [id number] stitch.Transesophageal ECHO Visualization: Continuous Transesophageal ECHO wasperformed [...] conditional dual-chamber pacemaker systemSignature: Sean Arshad MD, FAC, RSCardiac Electrophysiology and Arrhythmia ServiceDate: 10/23/2019Time: 3:47 PMThis document or parts of this document, were dictated using [employer]. A reasonable attempt at proofreading has been made to minimize errors.Please call with any questions or corrections. Name Value Range Interpretation Code Description Data Rema rce(s) Supporting Document(s) ID Date Data Source [id number] 10/23/2019 03:43:10 PM EDT [facility] Name Value Range Interpretation Code Description Data Rema rce(s) Supporting Document(s) XR FLUORO PACEMAKER INSERT [facility] ID Date Data Source [id number] 10/23/2019 03:13:04 PM EDT [facility]PAT[facility] NT INFORMATIONPatient MRN Name Date of Age Gend*PT [id number] Odin Jones 1935 84 years M IPPT Location Admission Date/Time Visit ID Attending Provider --- --- --- --- EPI ID CSN Admitting Provider [id number] ---Arterial Line PlacementPatient location during procedure: ORIndications for arterial line: hemodynamic monitoringStaffingPerformed by: JUAN LUIS Christopherompleted: patient identified, risks and benefits discussed, surgical consentobtained, anesthesia consent obtained, monitors and equipment checked, pre-opevaluation completed, timeout performed, patient was prepped and draped in usualsterile fashion,Arterial Line InsertionSite prep: chlorhexidineAnesthesia: noneLaterality: rightLocation: radial arteryNeedle gauge: 20 GTechnique: Seldi nger technique usedNumber of attempts: 1AssessmentSutured: noDressing: dressing appliedPatient tolerance: tolerated well Name Value Range Interpretation Code Description Data Rema rce(s) Supporting Document(s) ID Date Data Source [id number] 10/23/2019 03:12:38 PM EDT [facility] NT INFORMATIONPatient MRN Name Date of Age Gend*PT [id number] Odin Jones 1935 84 years M IPPT Location Admission Date/Time Visit ID Attending Provider --- --- --- --- EPI ID CSN Admitting Provider [id number] ---AirwayPatient location during procedure: ORUrgency: electiveDifficult airway: [...] cmPlacement verified by: chest auscultation and + [id number]: equal breath sounds bilateral and CTAGrade view: grade I - full view of glottis Name Value Range Interpretation Code Description Data Rema rce(s) Supporting Document(s) ID Date Data Source [id number] 10/23/2019 11:30:00 AM EDT [facility] Name Value Range Interpretation Code Description Data Rema rce(s) Supporting Document(s) SARS coronavirus 2 RNA [Presence] in Res piratory specimen by VIET with probe detection [facility] This lab was reported by [facility]. ID Date Data Source [id number] 10/23/2019 02:32:51 PM EDT Lab [facility] Name Value Range Interpretation Code Description Data Rema rce(s) Supporting Document(s) SPECIMEN DESCRIPTION Lab [facility] n[facility] [place] COVID19 RESULT (NDET) Lab [facility] THIS ASSAY AMPLIFIES AND DETECTSTHE TARG ET RNA USING REAL-TIME PCR.NEGATIVE 2019_NCOV RT-PCR RESULTS DONOT PRECLUDE 2019_NCOV INFECTION ANDSHOULD NOT BE USED THE SOLE BASISFOR PATIENT MANAGEMENT DECISIONS. COMMENT Lab [facility] [place] UNDER AN EMERGENCY USE AUTHORIZATION(EUA ) FOR THE DETECTION AND/OR DIAGNOSISOF THE VIRUS THAT CAUSES COVID-19.EMAILED TO [facility] IC AT [address] KN [id number] KN [id number]. ID Date Data Source [id number] 10/24/2019 12:15:57 AM EDT Lab [facility] [place] UNIT NUMBER [id number] LOOD COMPONENT TYPE RT24 PLAS 2ND CONTUNIT DIVISION 00STATUS OF UNIT TRANSFUSEDTRANSFUSION STATUS OK TO TRANSFUSEUNIT NUMBER [id number] COMPONENT TYPE RT24 PLAS 1ST CONTUNIT DIVISION 00STATUS OF UNIT TRANSFUSEDTRANSFUSION STATUS OK TO TRANSFUSE Name Value Range Interpretation Code Description Data Rema rce(s) Supporting Document(s) TRANSFUSE PLASMA [facility] ID Date Data Source [id number] 10/23/2019 03:50:51 AM EDT [facility] Name Value Range Interpretation Code Description Data Rema rce(s) Supporting Document(s) MAGNESIUM 2.2 mg/dL (1.7-2.4) [facility] ID Date Data Source [id number] 10/23/2019 03:50:51 AM EDT [facility] Name Value Range Interpretation Code Description Data Rema rce(s) Supporting Document(s) SODIUM 144 mmol/L (136-145) [facility] [place] POTASSIUM 4.5 mmol/L (3.6-5.2) [facility] CHLORIDE 110 mmol/L (100-108) H [facility] CO2 28 mmol/L (22-31) [facility] ANION GAP 6 mmol/L (7-16) L [facility] UREA NITROGEN 34 mg/dL (7-24) H [facility] CREATININE 1.38 mg/dL (0.80-1.30) H [facility] BUN/CREAT RATIO 24.6 RATIO (10.0-20.0) H [facility] GLUCOSE 110 mg/dL (70-99) H [facility] CALCIUM 8.6 mg/dL (8.4-10.2) [facility] GFR 49 ml/min/1.73m2 (>59) L [facility] GFR ([facility]) 60 ml/min/1.73m2 (>59) [facility] GFR INTERPRETATION [facility] --NORMAL KIDNEY FUNCTION OR MILD DISEASE - GFR >OR= 60CHRONIC KIDNEY DISEASE - GFR 15 - 59RENAL FAILURE - GFR <15 Est. GFR calculation based on the MDRDstudy equation, which assumes a steadystate for creatinine. Est. GFR should notbe used for medication dosing. ID Date Data Source [id number] 10/23/2019 03:17:40 AM EDT Lab [facility] [place] Name Value Range Interpretation Code Description Data Rema rce(s) Supporting Document(s) PT 16.4 s (9.2-11.9) H [facility] [place] INR 1.60 [facility] [place] SUGGESTED THERAPEUTIC RANGES USING INR F ORSTABILIZED ANTICOAGULATED PATIENTS:STANDARD DOSE THERAPY INR 2.0-3.0 DVT, PE, PREVENT DVT OR EMBOLISMHIGH DOSE THERAPY INR 2.5-3.5 PREVENT EMBOLISM FROM MECHANICAL HEART VALVE ID Date Data Source [id number] 10/23/2019 03:05:16 AM EDT [facility] Name Value Range Interpretation Code Description Data Rema rce(s) Supporting Document(s) WBC 4.3 10*3/uL (4.1-11.0) [facility] [place] RBC 3.81 10*6/uL (4.60-6.10) L [facility] HGB 8.5 g/dL (13.5-18.0) L [facility] HCT 27.1 % (41.0-53.0) L [facility] MCV 71.1 fL (80.0-95.0) L [facility] MCH 22.4 pg (27.0-32.0) L [facility] MCHC 31.6 g/dL (32.0-36.0) L [facility] RDW 18.1 % (10.5-14.5) H [facility] PLT 153 10*3/uL (150-450) [facility] MPV 8.5 fL (7.1-10.7) [facility] ID Date Data Source [id number] 10/24/2019 02:29:58 PM EDT Lab [facility] [place] SPEC EXP DATE 10/25/2019PATI ENT ABO/Rh O POSITIVEANTIBODY SCREEN NEGATIVETESTING SITE PERFORMED AT [address] [place] [id number] BANK COMMENT BLOOD TYPE CONFIRMED.UNIT NUMBER [id number] COMPONENT TYPE LEUKOPOOR RED CELLSUNIT DIVISION 00STATUS OF UNIT REL FROM ALLOCTRANSFUSION STATUS OK TO TRANSFUSECROSSMATCH RESULT COMPATIBLEUNIT NUMBER [id number] COMPONENT TYPE LEUKOPOOR RED CELLSUNIT DIVISION 00STATUS OF UNIT REL FROM ALLOCTRANSFUSION STATUS OK TO TRANSFUSECROSSMATCH RESULT COMPATIBLEUNIT NUMBER [id number] COMPONENT TYPE LEUKOPOOR RED CELLSUNIT DIVISION 00STATUS OF UNIT REL FROM ALLOCTRANSFUSION STATUS OK TO TRANSFUSECROSSMATCH RESULT COMPATIBLEUNIT NUMBER [id number] COMPONENT TYPE LEUKOPOOR RED CELLSUNIT DIVISION 00STATUS OF UNIT REL FROM ALLOCTRANSFUSION STATUS OK TO TRANSFUSECROSSMATCH RESULT COMPATIBLE Name Value Range Interpretation Code Description Data Rema rce(s) Supporting Document(s) TYPE AND SCREEN Lab [facility] ID Date Data Source [id number] 10/22/2019 12:45:19 PM EDT Lab [facility] [place] Name Value Range Interpretation Code Description Data Rema rce(s) Supporting Document(s) ROOM TEMP AB SCREEN Lab [facility]ian ce of [place] ROOM TEMP AB SCREEN NEGATIVE ID Date Data Source [id number] 10/22/2019 08:32:08 AM EDT [address] [address]Gwajngh Name: ODIN TIANOB: 1935Sex: MOrdering Provider: WESLEY LOVEuthvinay Prov: WESLEY DUNHAMOReferring Provider: Procedure Performed: XR CHEST PA AND LATERALExam Date: 10/22/2019 08:27MRN: [id number] Number: [id number] Class: InpatientAccount #: [id number] for Exam: pleural effusionTechnique: PA and lateral [...] DIANNA FAUST On 10/22/2019 8:32 AMWorkstation ID: [id number] Name Value Range Interpretation Code Description Data Rema rce(s) Supporting Document(s) ID Date Data Source [id number] 10/22/2019 05:58:51 AM EDT Lab [facility] abimael [facility] Name Value Range Interpretation Code Description Data Rema rce(s) Supporting Document(s) PT 19.2 s (9.2-11.9) H [facility] [place] INR 1.90 [facility] of [facility] SUGGESTED THERAPEUTIC RANGES USING INR F ORSTABILIZED ANTICOAGULATED PATIENTS:STANDARD DOSE THERAPY INR 2.0-3.0 DVT, PE, PREVENT DVT OR EMBOLISMHIGH DOSE THERAPY INR 2.5-3.5 PREVENT EMBOLISM FROM MECHANICAL HEART VALVE ID Date Data Source [id number] 10/22/2019 05:46:54 AM EDT [facility] [place] Name Value Range Interpretation Code Description Data Rema rce(s) Supporting Document(s) WBC 4.1 10*3/uL (4.1-11.0) [facility] [place] RBC 3.71 10*6/uL (4.60-6.10) L [facility] HGB 8.4 g/dL (13.5-18.0) L [facility] HCT 25.7 % (41.0-53.0) L [facility] MCV 69.2 fL (80.0-95.0) L [facility] MCH 22.6 pg (27.0-32.0) L [facility] MCHC 32.7 g/dL (32.0-36.0) [facility] RDW 17.7 % (10.5-14.5) H [facility] PLT 145 10*3/uL (150-450) L [facility] MPV 9.2 fL (7.1-10.7) [facility] ID Date Data Source [id number] 10/21/2019 10:12:44 AM EDT [facility] [place] Name Value Range Interpretation Code Description Data Rema rce(s) Supporting Document(s) SODIUM 143 mmol/L (136-145) [facility] POTASSIUM 4.5 mmol/L (3.6-5.2) [facility] CHLORIDE 109 mmol/L (100-108) H [facility] CO2 31 mmol/L (22-31) [facility] ANION GAP 3 mmol/L (7-16) L [facility] UREA NITROGEN 36 mg/dL (7-24) H [facility] CREATININE 1.45 mg/dL (0.80-1.30) H [facility] BUN/CREAT RATIO 24.8 RATIO (10.0-20.0) H [facility] GLUCOSE 105 mg/dL (70-99) H [facility] CALCIUM 8.9 mg/dL (8.4-10.2) [facility] GFR 47 ml/min/1.73m2 (>59) L [facility] GFR ( AMER) 56 ml/min/1.73m2 (>59) L [facility] GFR INTERPRETATION [facility] --NORMAL KIDNEY FUNCTION OR MILD DISEASE - GFR >OR= 60CHRONIC KIDNEY DISEASE - GFR 15 - 59RENAL FAILURE - GFR <15 Est. GFR calculation based on the MDRDstudy equation, which assumes a steadystate for creatinine. Est. GFR should notbe used for medication dosing. ID Date Data Source [id number] 10/21/2019 03:03:05 AM EDT [facility] [place] Name Value Range Interpretation Code Description Data Rema rce(s) Supporting Document(s) PT 23.5 s (9.2-11.9) H [facility] [place] INR 2.35 [facility] [place] SUGGESTED THERAPEUTIC RANGES USING INR F ORSTABILIZED ANTICOAGULATED PATIENTS:STANDARD DOSE THERAPY INR 2.0-3.0 DVT, PE, PREVENT DVT OR EMBOLISMHIGH DOSE THERAPY INR 2.5-3.5 PREVENT EMBOLISM FROM MECHANICAL HEART VALVE ID Date Data Source [id number] 10/21/2019 02:50:40 AM EDT [facility] [place] Name Value Range Interpretation Code Description Data Rema rce(s) Supporting Document(s) WBC 4.4 10*3/uL (4.1-11.0) [facility] [place] RBC 3.91 10*6/uL (4.60-6.10) L [facility] HGB 8.8 g/dL (13.5-18.0) L [facility] HCT 26.9 % (41.0-53.0) L [facility] MCV 68.7 fL (80.0-95.0) L [facility] MCH 22.4 pg (27.0-32.0) L [facility] MCHC 32.6 g/dL (32.0-36.0) [facility] RDW 17.7 % (10.5-14.5) H [facility] PLT 145 10*3/uL (150-450) L [facility] MPV 8.4 fL (7.1-10.7) [facility] ID Date Data Source [id number] 10/20/2019 03:53:14 AM EDT [facility] Name Value Range Interpretation Code Description Data Rema rce(s) Supporting Document(s) PT 30.4 s (9.2-11.9) H [facility] INR 3.09 [facility] SUGGESTED THERAPEUTIC RANGES USING INR F ORSTABILIZED ANTICOAGULATED PATIENTS:STANDARD DOSE THERAPY INR 2.0-3.0 DVT, PE, PREVENT DVT OR EMBOLISMHIGH DOSE THERAPY INR 2.5-3.5 PREVENT EMBOLISM FROM MECHANICAL HEART VALVE ID Date Data Source [id number] 10/20/2019 03:39:08 AM EDT [facility] [place] Name Value Range Interpretation Code Description Data Rema rce(s) Supporting Document(s) WBC 4.2 10*3/uL (4.1-11.0) [facility] [place] RBC 3.90 10*6/uL (4.60-6.10) L [facility] HGB 8.9 g/dL (13.5-18.0) L [facility] HCT 27.2 % (41.0-53.0) L [facility] MCV 69.6 fL (80.0-95.0) L [facility] MCH 22.7 pg (27.0-32.0) L [facility] MCHC 32.6 g/dL (32.0-36.0) [facility] RDW 17.8 % (10.5-14.5) H [facility] PLT 139 10*3/uL (150-450) L [facility] MPV 9.0 fL (7.1-10.7) [facility] ID Date Data Source [id number] 10/19/2019 03:20:43 AM EDT [facility] Name Value Range Interpretation Code Description Data Rema rce(s) Supporting Document(s) PT 46.5 s (9.2-11.9) H [facility] INR 4.84 HH [facility] SUGGESTED THERAPEUTIC RANGES USING INR F ORSTABILIZED ANTICOAGULATED PATIENTS:STANDARD DOSE THERAPY INR 2.0-3.0 DVT, PE, PREVENT DVT OR EMBOLISMHIGH DOSE THERAPY INR 2.5-3.5 PREVENT EMBOLISM FROM MECHANICAL HEART VALVEALERTED CRITICAL RESULT DILSHAD [id number] D4 [id number] ID Date Data Source [id number] 10/19/2019 03:18:48 AM EDT [facility] Name Value Range Interpretation Code Description Data Rema rce(s) Supporting Document(s) MAGNESIUM 2.4 mg/dL (1.7-2.4) [facility] ID Date Data Source [id number] 10/19/2019 03:18:48 AM EDT [facility] Name Value Range Interpretation Code Description Data Rema rce(s) Supporting Document(s) SODIUM 144 mmol/L (136-145) [facility] POTASSIUM 4.4 mmol/L (3.6-5.2) [facility] CHLORIDE 110 mmol/L (100-108) H [facility] CO2 31 mmol/L (22-31) [facility] ANION GAP 3 mmol/L (7-16) L [facility] UREA NITROGEN 35 mg/dL (7-24) H [facility] CREATININE 1.58 mg/dL (0.80-1.30) H [facility] BUN/CREAT RATIO 22.2 RATIO (10.0-20.0) H [facility] GLUCOSE 113 mg/dL (70-99) H [facility] CALCIUM 8.9 mg/dL (8.4-10.2) [facility] GFR 42 ml/min/1.73m2 (>59) L [facility] GFR ( AMER) 51 ml/min/1.73m2 (>59) L [facility] GFR INTERPRETATION [facility] --NORMAL KIDNEY FUNCTION OR MILD DISEASE - GFR >OR= 60CHRONIC KIDNEY DISEASE - GFR 15 - 59RENAL FAILURE - GFR <15 Est. GFR calculation based on the MDRDstudy equation, which assumes a steadystate for creatinine. Est. GFR should notbe used for medication dosing. ID Date Data Source [id number] 10/19/2019 03:02:27 AM EDT [facility] [place] Name Value Range Interpretation Code Description Data Rema rce(s) Supporting Document(s) WBC 4.4 10*3/uL (4.1-11.0) [facility] [place] RBC 3.98 10*6/uL (4.60-6.10) L [facility] HGB 9.0 g/dL (13.5-18.0) L [facility] HCT 28.3 % (41.0-53.0) L [facility] MCV 71.1 fL (80.0-95.0) L [facility] MCH 22.7 pg (27.0-32.0) L [facility] MCHC 31.9 g/dL (32.0-36.0) L [facility] RDW 18.2 % (10.5-14.5) H [facility] PLT 157 10*3/uL (150-450) [facility] MPV 8.8 fL (7.1-10.7) [facility] ID Date Data Source [id number] 10/18/2019 03:30:00 PM EDT [facility] ([facility] [employer]) Name Value Range Interpretation Code Description Data Rema rce(s) Supporting Document(s) Hemoglobin A1c/Hemoglobin.total in Blood 5.7 [facility] ([facility]) ID Date Data Source [id number] 10/18/2019 03:30:00 PM EDT [facility] ([facility]) Name Value Range Interpretation Code Description Data Rema rce(s) Supporting Document(s) Albumin [Mass/volume] in Serum or Plasma Laboratory test result [facility] ([facility]) Calcium [Mass/volume] in Serum or Plasma Laboratory test result [facility] ([facility]) Carbon dioxide, total [Moles/volume] in Serum or Plasma 33 [facility] ([facility]) Alanine aminotransferase [Enzymatic activity/volume] in Serum or Pl asma 24 [facility] ([facility]) Chloride [Moles/volume] in Serum or Plasma 105 [facility] ([facility]) Alkaline phosphatase [Enzymatic activity/volume] in Se rum or Plasma Laboratory test result [facility] ([employer] [facility]) Protein [Mass/volume] in Serum or Plasma Laboratory test result [facility] ([facility]) Potassium [Moles/volume] in Serum or Plasma 3.8 [facility] ([facility]) Urea nitrogen [Mass/volume] in Serum or Plasma 36 [facility] ([facility]) Aspartate aminotransferase [Enzymatic activity/volume] in Serum or Plasma 16 [facility] ([facility]) Sodium 142 [facility] ([facility]) Creatinine For GFR 1.72 [facility] ([facility]) Glucose Laboratory test result 70-100 [facility] ([facility]) ID Date Data Source [id number] 10/18/2019 03:30:00 PM EDT [facility] ([facility]) Name Value Range Interpretation Code Description Data Rema rce(s) Supporting Document(s) White Blood Count 4.4 4.3-10.9 [facility] ([facility]) Red Blood Count Laboratory test result 4.70-6.20 [facility] ([facility]) Platelets 152 130-400 [facility] ([facility]) Hemoglobin 9.0 13.0-17.0 [facility] ([facility]) Hematocrit 27.8 39.0-50.0 [facility] ([facility]) ID Date Data Source [id number] 10/18/2019 03:19:58 AM EDT [facility] Name Value Range Interpretation Code Description Data Rema rce(s) Supporting Document(s) PT 47.0 s (9.2-11.9) H [facility] INR 4.90 HH [facility] SUGGESTED THERAPEUTIC RANGES USING INR F ORSTABILIZED ANTICOAGULATED PATIENTS:STANDARD DOSE THERAPY INR 2.0-3.0 DVT, PE, PREVENT DVT OR EMBOLISMHIGH DOSE THERAPY INR 2.5-3.5 PREVENT EMBOLISM FROM MECHANICAL HEART VALVEALERTED CRITICAL RESULT WILMAR([id number]) Joe([id number]) AT 0320 ON 10/18/19 [place] [id number] ID Date Data Source [id number] 10/18/2019 03:15:28 AM EDT [facility] Name Value Range Interpretation Code Description Data Rema rce(s) Supporting Document(s) MAGNESIUM 2.4 mg/dL (1.7-2.4) [facility] ID Date Data Source [id number] 10/18/2019 03:15:28 AM EDT [facility] Name Value Range Interpretation Code Description Data Rema rce(s) Supporting Document(s) SODIUM 142 mmol/L (136-145) [facility] POTASSIUM 3.8 mmol/L (3.6-5.2) [facility] CHLORIDE 105 mmol/L (100-108) [facility] CO2 33 mmol/L (22-31) H [facility] ANION GAP 4 mmol/L (7-16) L [facility] UREA NITROGEN 36 mg/dL (7-24) H [facility] CREATININE 1.72 mg/dL (0.80-1.30) H [facility] BUN/CREAT RATIO 20.9 RATIO (10.0-20.0) H [facility] GLUCOSE 122 mg/dL (70-99) H [facility] CALCIUM 8.8 mg/dL (8.4-10.2) [facility] GFR 38 ml/min/1.73m2 (>59) L [facility] GFR ( AMER) 46 ml/min/1.73m2 (>59) L [facility] GFR INTERPRETATION [facility] --NORMAL KIDNEY FUNCTION OR MILD DISEASE - GFR >OR= 60CHRONIC KIDNEY DISEASE - GFR 15 - 59RENAL FAILURE - GFR <15 Est. GFR calculation based on the MDRDstudy equation, which assumes a steadystate for creatinine. Est. GFR should notbe used for medication dosing. ID Date Data Source [id number] 10/18/2019 02:57:41 AM EDT [facility] Name Value Range Interpretation Code Description Data Rema rce(s) Supporting Document(s) WBC 4.4 10*3/uL (4.1-11.0) [facility] [place] [place] RBC 3.98 10*6/uL (4.60-6.10) L [facility] HGB 9.0 g/dL (13.5-18.0) L [facility] HCT 27.8 % (41.0-53.0) L [facility] MCV 69.8 fL (80.0-95.0) L [facility] MCH 22.7 pg (27.0-32.0) L [facility] MCHC 32.5 g/dL (32.0-36.0) [facility] RDW 18.4 % (10.5-14.5) H [facility] PLT 152 10*3/uL (150-450) [facility] MPV 9.0 fL (7.1-10.7) [facility] ID Date Data Source [id number] 10/17/2019 09:22:31 AM EDT [facility] Name Value Range Interpretation Code Description Data Rema rce(s) Supporting Document(s) EKG [facility] [id number] jb2 [file] [id number]= ID Date Data Source [id number] 10/17/2019 03:44:48 AM EDT [facility] [place] Name Value Range Interpretation Code Description Data Rema rce(s) Supporting Document(s) PT 56.0 s (9.2-11.9) H [facility] [place] INR 5.90 HH [facility] [place] SUGGESTED THERAPEUTIC RANGES USING INR F ORSTABILIZED ANTICOAGULATED PATIENTS:STANDARD DOSE THERAPY INR 2.0-3.0 DVT, PE, PREVENT DVT OR EMBOLISMHIGH DOSE THERAPY INR 2.5-3.5 PREVENT EMBOLISM FROM MECHANICAL HEART VALVEALERTED CRITICAL RESULT [place] ([id number]) [place] [address] ON 10.17.19 AT 0343 [place] [address] ID Date Data Source [id number] 10/17/2019 03:41:13 AM EDT [facility] [place] Name Value Range Interpretation Code Description Data Rema rce(s) Supporting Document(s) MAGNESIUM 2.4 mg/dL (1.7-2.4) [facility] [place] ID Date Data Source [id number] 10/17/2019 03:41:13 AM EDT [facility] [place] Name Value Range Interpretation Code Description Data Rema rce(s) Supporting Document(s) SODIUM 145 mmol/L (136-145) [facility] [place] POTASSIUM 3.9 mmol/L (3.6-5.2) [facility] CHLORIDE 109 mmol/L (100-108) H [facility] CO2 34 mmol/L (22-31) H [facility] ANION GAP 2 mmol/L (7-16) L [facility] UREA NITROGEN 43 mg/dL (7-24) H [facility] CREATININE 1.79 mg/dL (0.80-1.30) H [facility] BUN/CREAT RATIO 24.0 RATIO (10.0-20.0) H [facility] GLUCOSE 101 mg/dL (70-99) H [facility] CALCIUM 9.0 mg/dL (8.4-10.2) [facility] GFR 37 ml/min/1.73m2 (>59) L [facility] GFR ( AMER) 44 ml/min/1.73m2 (>59) L [facility] GFR INTERPRETATION [facility] --NORMAL KIDNEY FUNCTION OR MILD DISEASE - GFR >OR= 60CHRONIC KIDNEY DISEASE - GFR 15 - 59RENAL FAILURE - GFR <15 Est. GFR calculation based on the MDRDstudy equation, which assumes a steadystate for creatinine. Est. GFR should notbe used for medication dosing. ID Date Data Source [id number] 10/17/2019 03:17:26 AM EDT [facility] Name Value Range Interpretation Code Description Data Rema rce(s) Supporting Document(s) WBC 4.2 10*3/uL (4.1-11.0) [facility] [place] RBC 3.89 10*6/uL (4.60-6.10) L [facility] HGB 8.8 g/dL (13.5-18.0) L [facility] HCT 27.1 % (41.0-53.0) L [facility] MCV 69.6 fL (80.0-95.0) L [facility] MCH 22.7 pg (27.0-32.0) L [facility] MCHC 32.6 g/dL (32.0-36.0) [facility] RDW 18.2 % (10.5-14.5) H [facility] PLT 168 10*3/uL (150-450) [facility] MPV 8.8 fL (7.1-10.7) [facility] ID Date Data Source [id number] 10/16/2019 05:07:06 PM EDT [facility] Name Value Range Interpretation Code Description Data Rema rce(s) Supporting Document(s) COLOR [facility] APPEARANCE [facility] SPEC GRAV URINE 1.013 (1.003-1.030) [facility] PH URINE 5.5 (5.0-7.5) [facility] LEUK ESTERASE (NEG) [facility] NITRITE URINE (NEG) [facility] PROTEIN URINE (NEG) [facility] GLUCOSE URINE (NEG) [facility] KETONE URINE (NEG) [facility] [place] UROBILINOGEN 1.0 mg/dL (0-1.0) [facility] [place] BILIRUBIN URINE (NEG) [facility] BLOOD/HGB URINE (NEG) [facility] ID Date Data Source [id number] 10/16/2019 04:56:02 PM EDT [facility] Name Value Range Interpretation Code Description Data Rema rce(s) Supporting Document(s) URN CULTURE HOLD [facility] FOR ADD ON CULTURE ID Date Data Source [id number] 10/16/2019 03:45:24 PM EDT [facility] Name Value Range Interpretation Code Description Data Rema rce(s) Supporting Document(s) POC NOVA GLU 116 mg/dL (70-99) H [facility] [place] PERFORMED BY [facility] CLINICAL STAFF ID Date Data Source [id number] 10/17/2019 09:22:52 AM EDT [facility] Name Value Range Interpretation Code Description Data Rema rce(s) Supporting Document(s) SPECIMEN DESCRIPTION [facility] METH RES STAPH AUR (NEG) [facility] ID Date Data Source [id number] 10/16/2019 04:49:16 PM EDT [facility] Name Value Range Interpretation Code Description Data Rema rce(s) Supporting Document(s) TOTAL PROTEIN 6.8 g/dL (6.4-8.2) [facility] ALBUMIN 3.3 g/dL (3.2-4.5) [facility] GLOBULIN 3.5 g/dL (2.7-4.3) [facility] ALB/GLOB RATIO 0.9 RATIO [facility] BILIRUBIN,TOTAL 0.8 mg/dL (0.0-1.0) [facility] PLEASE NOTE:Total bilirubin results may be falselyelevated in patients taking Eltrombopag. BILIRUBIN,CONJUGATED 0.3 mg/dL (0.0-0.3) [facility] BILIRUBIN,UNCONJ. 0.5 mg/dL (0.0-0.7) [facility] ALKALINE PHOSPHATASE 104 U/L (45-117) [facility] AST (SGOT) 16 U/L (11-39) [facility] ALT (SGPT) 24 U/L (12-78) [facility] ID Date Data Source [id number] 10/16/2019 04:49:16 PM EDT [facility] Name Value Range Interpretation Code Description Data Rema rce(s) Supporting Document(s) SODIUM 145 mmol/L (136-145) [facility] POTASSIUM 4.3 mmol/L (3.6-5.2) [facility] CHLORIDE 108 mmol/L (100-108) [facility] CO2 33 mmol/L (22-31) H [facility] ANION GAP 4 mmol/L (7-16) L [facility] UREA NITROGEN 43 mg/dL (7-24) H [facility] CREATININE 1.80 mg/dL (0.80-1.30) H [facility] BUN/CREAT RATIO 23.9 RATIO (10.0-20.0) H [facility] GLUCOSE 108 mg/dL (70-99) H [facility] CALCIUM 9.1 mg/dL (8.4-10.2) [facility] GFR 36 ml/min/1.73m2 (>59) L [facility] GFR ( AMER) 44 ml/min/1.73m2 (>59) L [facility] GFR INTERPRETATION [facility] --NORMAL KIDNEY FUNCTION OR MILD DISEASE - GFR >OR= 60CHRONIC KIDNEY DISEASE - GFR 15 - 59RENAL FAILURE - GFR <15 Est. GFR calculation based on the MDRDstudy equation, which assumes a steadystate for creatinine. Est. GFR should notbe used for medication dosing. ID Date Data Source [id number] 10/16/2019 04:22:48 PM EDT [facility] Name Value Range Interpretation Code Description Data Rema rce(s) Supporting Document(s) WBC 5.0 10*3/uL (4.1-11.0) [facility] RBC 4.22 10*6/uL (4.60-6.10) L [facility] HGB 9.7 g/dL (13.5-18.0) L [facility] HCT 29.5 % (41.0-53.0) L [facility] MCV 70.0 fL (80.0-95.0) L [facility] MCH 23.0 pg (27.0-32.0) L [facility] MCHC 32.8 g/dL (32.0-36.0) [facility] RDW 18.5 % (10.5-14.5) H [facility] PLT 198 10*3/uL (150-450) [facility] MPV 8.6 fL (7.1-10.7) [facility] ID Date Data Source [id number] 10/16/2019 03:23:22 PM EDT [facility] INFORMATIONPatient MRN Name Date of Age Gend*PT [id number] Odin Jones 1935 84 years M ---PT Location Admission Date/Time Visit ID Attending Provider --- --- --- --- EPI ID CSN Admitting Provider [id number] ---Cardiothoracic Surgery Post Operative Follow UpName: Odin Jones : 1935MRN: [id number] Visit Date: October 16, 2019ASSESSMENT & PLAN:Pt's [...] x 3 months from surgery.Follow up with Director Digital Strategy: Dr. Blair and PCP: PCP PROVIDER REQUESTEDReturn to office prnSUBJECTIVE:Odin Jones is a pleasant 84 years male who recently underwent coronaryartery bypass graft x3, cryoablation to left and the right atrium with clippingof the left atrial appendage on 09/20/[address] De La Garza. [facility] and then readmitted briefly with dyspnea. He was diuresed whichimproved this. Pt was discharged from [facility] and once home yesterday he received acall stating he should not leave [facility] today because his pacemaker lead ismalfunctioning. Pt is fatigued but otherwise feeling ok. 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 ID Date Data Source [id number] 10/16/2019 06:17:47 PM EDT [facility] Name Value Range Interpretation Code Description Data [facility] rce(s) Supporting Document(s) SPECIMEN DESCRIPTION [facility] COVID19 RESULT (NDET) Lab [facility] THIS ASSAY AMPLIFIES AND DETECTSTHE TARG ET RNA USING REAL-TIME PCR.NEGATIVE 2019_NCOV RT-PCR RESULTS DONOT PRECLUDE 2019_NCOV INFECTION ANDSHOULD NOT BE USED THE SOLE BASISFOR PATIENT MANAGEMENT DECISIONS. COMMENT Lab [facility] UNDER AN EMERGENCY USE AUTHORIZATION(EUA ) FOR THE DETECTION AND/OR DIAGNOSISOF THE VIRUS THAT CAUSES COVID-19.EMAILED RESULTS TO [facility] IC AT 6925 ON [id number]. [id number] ID Date Data Source [id number] 10/16/2019 11:57:00 AM EDT [facility] ROUTINE PA and LATCLINICAL HISTORY: [...] rce(s) Supporting Document(s) ID Date Data Source [id number] 10/16/2019 01:57:24 PM EDT [facility] Name Value Range Interpretation Code Description Data Rema rce(s) Supporting Document(s) PT 49.7 s (9.2-11.9) H [facility] INR 5.25 HH [facility] SUGGESTED THERAPEUTIC RANGES USING INR F ORSTABILIZED ANTICOAGULATED PATIENTS:STANDARD DOSE THERAPY INR 2.0-3.0 DVT, PE, PREVENT DVT OR EMBOLISMHIGH DOSE THERAPY INR 2.5-3.5 PREVENT EMBOLISM FROM MECHANICAL HEART VALVERESULT VERIFIED BY REPEAT TESTING.RESULT(S) CALLED TO AND READ BACK ANSHUL ON AT 2993 DH [address] ID Date Data Source [id number] 10/12/2019 06:49:07 PM EDT [facility] INFORMATIONPatient MRN Name Date of Age Gend*PT [id number] JesuscoralOdin cheng Toni 1935 84 years M IPPT Location Admission Date/Time Visit ID Attending [id number] 09/20/19 0954 --- --- EPI ID CSN Admitting Provider [id number] Elizabeth De La Garza MD([id number]) Attestation signed by Elizabeth De La Garza MD at 10/12/2019 6:49 PMI saw and evaluated the patient and reviewed Boo's note. 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 AUSTIN was not resumedas he developed an HOWIE and Cr remains elevated compared to baseline. BMP shouldbe checked at [facility] next week. INR to be drawn Tuesday at [facility] for Coumad in dosing.Would repeat PA/LAT CXR in 1 week prior to followup appt with surgeon incaseneeds repeat left thoracentesis.The patient is now safe for discharge on POD8, and care plan was discussed withcovering attending provider. The patient is eager to go to [facility] today.Lab ResultsComponent Value Date WBC 7.6 09/27/2019 [...] Glaucoma Hearing loss bilateral hearing aids Hypertension nursing home current use of anticoagulant Eliquis Myocardial infarction [...] No Drainage No Erythema Some EcchymosisDischarged Condition:stableDisposition: Nursing Home FacilitySignature: Boo Morley, PADate: September 28, 2019Time: 9:34 AM Name Value Range Interpretation Code Description Data Rema rce(s) Supporting Document(s) ID Date Data Source [id number] 10/11/2019 09:36:00 AM EDT [facility] Name Value Range Interpretation Code Description Data Rema rce(s) Supporting Document(s) Prothrombin time (PT) 29.9 SECONDS 11.0 - 15.5 [facility] INR in Platelet poor plasma by Coagulation assay 2.80 0.93 - 1. 23 H [facility] \\BLDo\\INR INTERPRETATION\\BLDx\\ Therapeutic range for Coumadin and related oral anticoagulants. - International Normalized Ratio (INR): 2.0 - 3.0 for Venous Thrombosis, Pulmonary Embolus, Tissue heart valves, Acute TN, Atrial Fibrillation, Valvular heart disease and recurrent Systemic Embolism. -International Normalized Ratio (INR): 2.5 - 3.5 for Mechanical Prosthetic valve. ID Date Data Source [id number] 10/09/2019 08:44:00 AM EDT [facility] Name Value Range Interpretation Code Description Data Rema rce(s) Supporting Document(s) Prothrombin time (PT) 30.5 SECONDS 11.0 - 15.5 [facility] INR in Platelet poor plasma by Coagulation assay 2.87 0.93 - 1. 23 H [facility] \\BLDo\\INR INTERPRETATION\\BLDx\\ Therapeutic range for Coumadin and related oral anticoagulants. - International Normalized Ratio (INR): 2.0 - 3.0 for Venous Thrombosis, Pulmonary Embolus, Tissue heart valves, Acute TN, Atrial Fibrillation, Valvular heart disease and recurrent Systemic Embolism. -International Normalized Ratio (INR): 2.5 - 3.5 for Mechanical Prosthetic valve. ID Date Data Source [id number] 10/08/2019 11:29:00 AM [facility] Name Value Range Interpretation Code Description Data Rema e(s) Supporting Document(s) Prothrombin time (PT) 31.0 SECONDS 11.0 - 15.5 [facility] INR in Platelet poor plasma by Coagulation assay 2.93 0.93 - 1. 23 H [facility] \\BLDo\\INR INTERPRETATION\\BLDx\\ Therapeutic range for Coumadin and related oral anticoagulants. - International Normalized Ratio (INR): 2.0 - 3.0 for Venous Thrombosis, Pulmonary Embolus, Tissue heart valves, Acute TN, Atrial Fibrillation, Valvular heart disease and recurrent Systemic Embolism. -International Normalized Ratio (INR): 2.5 - 3.5 for Mechanical Prosthetic valve. ID Date Data Source [id number] 10/05/2019 02:45:00 PM EDT [facility] Name Value Range Interpretation Code Description Data Rema rce(s) Supporting Document(s) Prothrombin time (PT) 20.3 SECONDS 11.0 - 15.5 [facility] INR in Platelet poor plasma by Coagulation assay 1.71 0.93 - 1. 23 H [facility] \\BLDo\\INR INTERPRETATION\\BLDx\\ Therapeutic range for Coumadin and related oral anticoagulants. - International Normalized Ratio (INR): 2.0 - 3.0 for Venous Thrombosis, Pulmonary Embolus, Tissue heart valves, Acute TN, Atrial Fibrillation, Valvular heart disease and recurrent Systemic Embolism. -International Normalized Ratio (INR): 2.5 - 3.5 for Mechanical Prosthetic valve. ID Date Data Source [id number] 10/04/2019 08:27:00 AM EDT [facility] Name Value Range Interpretation Code Description Data Rema rce(s) Supporting Document(s) Prothrombin time (PT) 19.6 SECONDS 11.0 - 15.5 [facility] INR in Platelet poor plasma by Coagulation assay 1.64 0.93 - 1. 23 H [facility] \\BLDo\\INR INTERPRETATION\\BLDx\\ Therapeutic range for Coumadin and related oral anticoagulants. - International Normalized Ratio (INR): 2.0 - 3.0 for Venous Thrombosis, Pulmonary Embolus, Tissue heart valves, Acute TN, Atrial Fibrillation, Valvular heart disease and recurrent Systemic Embolism. -International Normalized Ratio (INR): 2.5 - 3.5 for Mechanical Prosthetic valve. ID Date Data Source [id number] 10/04/2019 10:41:00 AM EDT [facility] Name Value Range Interpretation Code Description Data Rema [facility](s) Supporting Document(s) COMPREHENSIVE METABOLIC PANEL [facility] COMPREHENSIVE METABOLIC PANEL Sodium [Moles/volume] in Serum or Plasma 141 mEq/L 134 - 153 [facility] Potassium [Moles/volume] in Serum or Plasma 4.6 mEq/L 3.6 - 5.0 [facility] Chloride [Moles/volume] in Serum or Plasma 98 mEq/L 98 - 107 [facility] Carbon dioxide, total [Moles/volume] in Serum or Plasma 32 MEQ/L 22 - 30 H [facility] Glucose [Mass/volume] in Serum or Plasma 129 MG/DL 65 - 110 H [facility] BUN 46 MG/DL 7 - 21 H [facility] Creatinine [Mass/volume] in Serum or Plasma 1.9 MG/DL 0.7 - 1.5 H [facility] BUN/CREAT 24 8 - 27 [facility] al Protein [Mass/volume] in Serum or Plasma 6.4 G/DL 6.3 - 8.2 [facility] Albumin [Mass/volume] in Serum or Plasma 3.8 G/DL 3.9 - 5.0 L [facility] Globulin [Mass/volume] in Serum by calculation 2.6 GM/DL 2.4 - 3.2 [facility] A/G RATIO 1.5 0.8 - 2.0 [facility] Calcium [Mass/volume] in Serum or Plasma 9.4 MG/DL 8.4 - 10.2 [facility] Bilirubin.total [Mass/volume] in Serum or Plasma 1.1 MG/DL 0.2 - 1.3 [facility] Alkaline phosphatase [Enzymatic activity/volume] in Serum or Plasma 83 U/L 38 - 126 [facility] Aspartate aminotransferase [Enzymatic activity/volume] in Serum or Plasma 32 U/L 5 - 40 [facility] Alanine aminotransferase [Enzymatic activity/volume] in Seru m or Plasma 40 U/L 7 - 56 [facility] Anion gap 3 in Serum or Plasma 11.0 mmol/L 8.0 - 16.0 [facility] AGE 83 yrs [facility] al NON-AA GFR 36 mL[facility] AMER GFR 44 mL/min [facility] Male GFR In terprentation [...] >32 mL/min Normal ID Date Data Source [id number] 10/03/2019 03:26:00 PM EDT [facility] Name Value Range Interpretation Code Description Data Rema rce(s) Supporting Document(s) Ferritin [Mass/volume] in Serum or Plasma 660.6 ng/mL 5.0 - 244 H [facility] ID Date Data Source [id number] 10/03/2019 03:24:00 PM EDT [facility] Name Value Range Interpretation Code Description Data Rema rce(s) Supporting Document(s) Thyrotropin [Units/volume] in Serum or Plasma by Detec tion limit <= 0.05 mIU/L 1.20 uIU/mL 0.47 - 5.01 [facility] ID Date Data Source [id number] 10/03/2019 03:24:00 PM EDT [facility] Name Value Range Interpretation Code Description Data Rema rce(s) Supporting Document(s) Thyroxine (T4) free index in Serum or Plasma by calculation 1.04 NG/DL 0.93 - 1.70 [facility] ID Date Data Source [id number] 10/03/2019 03:14:00 PM T [facility] Name Value Range Interpretation Code Description Data Rema rce(s) Supporting Document(s) Prothrombin time (PT) 17.7 SECONDS 11.0 - 15.5 [facility] INR in Platelet poor plasma by Coagulation assay 1.44 0.93 - 1. 23 H [facility] \\BLDo\\INR INTERPRETATION\\BLDx\\ Therapeutic range for Coumadin and related oral anticoagulants. - International Normalized Ratio (INR): 2.0 - 3.0 for Venous Thrombosis, Pulmonary Embolus, Tissue heart valves, Acute TN, Atrial Fibrillation, Valvular heart disease and recurrent Systemic Embolism. -International Normalized Ratio (INR): 2.5 - 3.5 for Mechanical Prosthetic valve. ID Date Data Source [id number] 10/03/2019 03:14:00 PM EDT [facility] Name Value Range Interpretation Code Description Data Rema rce(s) Supporting Document(s) CVE PANEL [facility] LIPID PANEL Cholesterol [Mass/volume] in Serum or Plasma 82 MG/DL 131 - 200 L [facility] Deprecated Triglyceride [Mass/volume] in Serum or Plasma 49 MG/DL 3 5 - 160 [facility] HDL 47 MG/DL 29 - 86 [facility] Cholesterol in LDL [Mass/volume] in Serum or Plasma by Direc t assay 29 mg/dL 65 - 175 L [facility] Cholesterol.total/Cholesterol in HDL [Mass Ratio] in Serum o r Plasma 1.7 3.4 - 4.9 L [facility] LDL/HDL 0.62 1.00 - 3.55 L [facility] ital CVE RISK CHOL/HDL LDL/HDLMEN: 1/2 AVERAGE 3.43 1.00 AVERAGE 4.97 3.55 2X AVERAGE 9.55 6.25 3X AVERAGE 23.99 7.99WOMEN: 1/2 AVERAGE 3.27 1.47 AVERAGE 4.44 3.22 2X AVERAGE 7.05 5.03 3X AVERAGE 11.04 6.14 ID Date Data Source [id number] 10/03/2019 03:14:00 PM EDT [facility] Name Value Range Interpretation Code Description Data Rema rce(s) Supporting Document(s) Iron [Mass/volume] in Serum or Plasma 32 UG/DL 42 - 135 L [facility] Iron binding capacity.unsaturated [Mass/volume] in Serum or Plasma 170 UG/DL 112 - 347 [facility] Iron binding capacity [Mass/volume] in Serum or Plasma 202 ug/dL 250 - 450 L [facility] Iron saturation [Mass Fraction] in Serum or Plasma 16 % [facility] ID Date Data Source [id number] 10/03/2019 03:13:00 PM [facility] Name Value Range Interpretation Code Description Data Rema rce(s) Supporting Document(s) Magnesium [Mass/volume] in Serum or Plasma 2.0 MG/DL 1.7 - 2.2 [facility] ID Date Data Source [id number] 10/03/2019 03:06:00 PM T [facility] Name Value Range Interpretation Code Description Data Rema rce(s) Supporting Document(s) CBC NO DIFF [facility] ital COMPLETE BLOOD COUNT Leukocytes [#/volume] in Blood by Automated count 7.7 10^3/uL 4.2 - 1 1.0 [facility] Erythrocytes [#/volume] in Blood by Automated count 3.69 10^6/uL 4. 50 - 6.30 L [facility] Hemoglobin [Mass/volume] in Blood 8.4 g/dL 14.0 - 16.0 L [facility] Hematocrit [Volume Fraction] of Blood by Automated count 26.4 % 4 1.0 - 51.0 L [facility] Erythrocyte mean corpuscular volume [Entitic volume] by Auto mated count 71.5 fL 80.0 - 94.0 L [facility] Erythrocyte mean corpuscular hemoglobin [Entitic mass] by Automated count 22.8 pg 27.0 - 34.0 L [facility] Erythrocyte mean corpuscular hemoglobin concentration [Mass/volume] by Automated count 31.8 g/dL 31.0 - 36.0 [facility] Erythrocyte distribution width [Ratio] by Automated count 18.6 % 11.5 - 14.8 H [facility] Platelets [#/volume] in Blood by Automated count 319 10^3/uL 150 - 45 0 [facility] Platelet mean volume [Entitic volume] in Blood by Automated count 10.0 fL 7.4 - 10.4 [facility] ID Date Data Source [id number] 10/02/2019 02:03:43 PM EDT [facility] INFORMATIONPatient MRN Name Date of Age Gend*PT [id number] JesuscoralOdin cheng Toni 1935 83 years M IPPT Location Admission Date/Time Visit ID Attending [id number] 09/28/192113 --- Dennys Silvestre MD([id number]) EPI ID CSN Admitting Provider [id number] Dennys Silvestre MD([id number])Surgical Discharge SummaryOdin PlascenciarMProsperN: [id number] date: 09/28/2019Admitting Physician: HANNAH Keeischarge date and time:Discharge Orders Placed(From admission, onward) NoneDischarge Physician: MAXI Blackmondmission Diagnosis: Shortness of breathSecondary Diagnoses: Principal Problem: Shortness of breathIndication for Admission: This patient was discharged on 09/28/19 after CABG,cryoablation and MARTÍN clip on 08/2319. He was discharged to [facility] and returned tot ED later that evening with complaints regarding the rehab facility andshortness of breath.Hospital Course & Complications: The patient was readmitted and placed on oxygennasal cannula and IV lasix. CXR showed improving pulmonary edema. Thepatient's dyspnea improved and he was weaned off oxygen. He continues coumadinfor Afib and will continue 3 mg daily with INR on 10/04/19. Results to [facility] for further dosing. The patient was seen by the attending MD anddeemed appropriate for discharge to [facility].Follow up:Dr. Silvetsre in 2 weeksPCP in 2-3 weeksCardiology in 2-3 weeksPast Medical History:Past Medical Histor y:Diagnosis Date Abnormal EKG Atrial fibrillation Atrial flutter BPH (benign prostatic hyperplasia) Cancer bladder Cardiomyopathy ischemic Cholelithiasis Coronary artery disease Kalyn Blair MD Disorder of mitral and aortic valves Diverticulosis Glaucoma Hearing loss bilateral hearing aids Hypertension nursing home current use of anticoagulant Eliquis Myocardial infarction [...] no drainageDischarged Condition:stableDisposition: Home or Self CareSignature: MUSA Blackmonate: October 02, 2019Time: 7:07 AM Name Value Range Interpretation Code Description Data Rema rce(s) Supporting Document(s) ID Date Data Source [id number] 10/02/2019 03:24:26 AM EDT [facility] Name Value Range Interpretation Code Description Data Rema rce(s) Supporting Document(s) PT 14.7 s (9.2-11.9) H [facility] INR 1.43 [facility] SUGGESTED THERAPEUTIC RANGES USING INR F ORSTABILIZED ANTICOAGULATED PATIENTS:STANDARD DOSE THERAPY INR 2.0-3.0 DVT, PE, PREVENT DVT OR EMBOLISMHIGH DOSE THERAPY INR 2.5-3.5 PREVENT EMBOLISM FROM MECHANICAL HEART VALVE ID Date Data Source [id number] 10/02/2019 03:17:56 AM EDT [facility] Name Value Range Interpretation Code Description Data Rema rce(s) Supporting Document(s) WBC 5.8 10*3/uL (4.1-11.0) [facility] [place] RBC 3.72 10*6/uL (4.60-6.10) L [facility] HGB 8.7 g/dL (13.5-18.0) L [facility] HCT 26.4 % (41.0-53.0) L [facility] MCV 71.0 fL (80.0-95.0) L [facility] MCH 23.2 pg (27.0-32.0) L [facility] MCHC 32.8 g/dL (32.0-36.0) [facility] RDW 18.1 % (10.5-14.5) H [facility] PLT 258 10*3/uL (150-450) [facility] MPV 7.9 fL (7.1-10.7) [facility] ID Date Data Source [id number] 10/02/2019 12:10:00 AM EDT [facility] Name Value Range Interpretation Code Description Data Rema rce(s) Supporting Document(s) SARS coronavirus 2 RNA [Presence] in Res piratory specimen by VIET with probe detection [facility] This lab was reported by [facility]. ID Date Data Source [id number] 10/02/2019 06:31:03 AM EDT [facility] Name Value Range Interpretation Code Description Data Rema rce(s) Supporting Document(s) SPECIMEN DESCRIPTION [facility] [place] COVID19 RESULT (NDET) Lab [facility] THIS ASSAY AMPLIFIES AND DETECTSTHE TARG ET RNA USING REAL-TIME PCR.NEGATIVE 2019_NCOV RT-PCR RESULTS DONOT PRECLUDE 2019_NCOV INFECTION ANDSHOULD NOT BE USED THE SOLE BASISFOR PATIENT MANAGEMENT DECISIONS. COMMENT Lab [facility] APPROVED B Y THE [place]. THE [place] FOODAND DRUG ADMINISTRATION HAS NOT APPROVEDTHIS TEST. NEGATIVE RESULTS DO NOT [id number] INFECTION AND SHOULD NOT BEUSED THE SOLE BASIS FOR CLINICALDIAGNOSIS OR PATIENT MANAGEMENT DECISIONS.EMAILED TO [facility] AT 0643 ON [phone] ID Date Data Source [id number] 10/01/2019 03:12:24 AM EDT [facility] Name Value Range Interpretation Code Description Data Rema rce(s) Supporting Document(s) SODIUM 142 mmol/L (136-145) [facility] POTASSIUM 3.9 mmol/L (3.6-5.2) [facility] CHLORIDE 101 mmol/L (100-108) [facility] CO2 34 mmol/L (22-31) H [facility] ANION GAP 7 mmol/L (7-16) [facility] UREA NITROGEN 47 mg/dL (7-24) H [facility] CREATININE 1.81 mg/dL (0.80-1.30) H [facility] BUN/CREAT RATIO 26.0 RATIO (10.0-20.0) H [facility] GLUCOSE 132 mg/dL (70-99) H [facility] CALCIUM 8.1 mg/dL (8.4-10.2) L [facility] GFR 36 ml/min/1.73m2 (>59) L [facility] GFR ( AMER) 44 ml/min/1.73m2 (>59) L [facility] GFR INTERPRETATION [facility] --NORMAL KIDNEY FUNCTION OR MILD DISEASE - GFR >OR= 60CHRONIC KIDNEY DISEASE - GFR 15 - 59RENAL FAILURE - GFR <15 Est. GFR calculation based on the MDRDstudy equation, which assumes a steadystate for creatinine. Est. GFR should notbe used for medication dosing. ID Date Data Source [id number] 10/01/2019 03:04:47 AM EDT [facility] Name Value Range Interpretation Code Description Data Rema rce(s) Supporting Document(s) PT 15.7 s (9.2-11.9) H [facility] INR 1.53 [facility] SUGGESTED THERAPEUTIC RANGES USING INR F ORSTABILIZED ANTICOAGULATED PATIENTS:STANDARD DOSE THERAPY INR 2.0-3.0 DVT, PE, PREVENT DVT OR EMBOLISMHIGH DOSE THERAPY INR 2.5-3.5 PREVENT EMBOLISM FROM MECHANICAL HEART VALVE ID Date Data Source [id number] 10/01/2019 02:51:31 AM EDT [facility] Name Value Range Interpretation Code Description Data Rema rce(s) Supporting Document(s) WBC 6.3 10*3/uL (4.1-11.0) [facility] [place] RBC 3.75 10*6/uL (4.60-6.10) L [facility] HGB 8.4 g/dL (13.5-18.0) L [facility] HCT 25.9 % (41.0-53.0) L [facility] PERFORMED AT [address] [place] [address] N Y [id number] MCV 69.2 fL (80.0-95.0) L [facility] MCH 22.5 pg (27.0-32.0) L [facility] MCHC 32.5 g/dL (32.0-36.0) [facility] RDW 17.7 % (10.5-14.5) H [facility] PLT 263 10*3/uL (150-450) [facility] MPV 8.0 fL (7.1-10.7) [facility] ID Date Data Source [id number] 09/30/2019 10:46:48 AM EDT [facility] INFORMATIONPatient MRN Name Date of Age Gend*PT [id number] Odin Jones 1935 83 years M OBSPT Location Admission Date/Time Visit ID Attending [id number] 09/28/192113 --- Dennys Silvestre MD([id number]) EPI ID CSN Admitting Provider [id number] Dennys Silvestre MD([id number])See H&P from previous admit and PA admit note Name Value Range Interpretation Code Description Data Rema rce(s) Supporting Document(s) ID Date Data Source [id number] 10/01/2019 12:20:55 AM EDT [facility] SPEC EXP DATE 10/03/2019PATI ENT ABO/Rh O POSITIVEANTIBODY SCREEN NEGATIVETESTING SITE PERFORMED AT [address] [place] [id number] BANK COMMENT BLOOD TYPE CONFIRMED.UNIT NUMBER [id number] COMPONENT TYPE LEUKOPOOR RED CELLSUNIT DIVISION 00STATUS OF UNIT TRANSFUSEDTRANSFUSION STATUS OK TO TRANSFUSECROSSMATCH RESULT COMPATIBLE Name Value Range Interpretation Code Description Data Rema rce(s) Supporting Document(s) TYPE AND SCREEN [facility] ID Date Data Source [id number] 09/30/2019 07:33:17 AM EDT [facility] Name Value Range Interpretation Code Description Data Rema rce(s) Supporting Document(s) WBC 5.4 10*3/uL (4.1-11.0) [facility] RBC 3.51 10*6/uL (4.60-6.10) L [facility] HGB 7.8 g/dL (13.5-18.0) L [facility] HCT 24.0 % (41.0-53.0) L [facility] PERFORMED AT [address] [place] [address] [place] N Y [address] MCV 68.2 fL (80.0-95.0) L [facility] MCH 22.1 pg (27.0-32.0) L [facility] MCHC 32.4 g/dL (32.0-36.0) [facility] RDW 16.1 % (10.5-14.5) H [facility] PLT 243 10*3/uL (150-450) [facility] MPV 8.2 fL (7.1-10.7) [facility] ID Date Data Source [id number] 09/30/2019 03:27:03 AM EDT [facility] Name Value Range Interpretation Code Description Data Rema rce(s) Supporting Document(s) SODIUM 143 mmol/L (136-145) [facility] POTASSIUM 3.9 mmol/L (3.6-5.2) [facility] CHLORIDE 102 mmol/L (100-108) [facility] CO2 37 mmol/L (22-31) H [facility] ANION GAP 4 mmol/L (7-16) L [facility] UREA NITROGEN 55 mg/dL (7-24) H [facility] CREATININE 1.75 mg/dL (0.80-1.30) H [facility] BUN/CREAT RATIO 31.4 RATIO (10.0-20.0) H [facility] GLUCOSE 115 mg/dL (70-99) H [facility] CALCIUM 8.6 mg/dL (8.4-10.2) [facility] GFR 38 ml/min/1.73m2 (>59) L [facility] GFR ( AMER) 45 ml/min/1.73m2 (>59) L [facility] GFR INTERPRETATION [facility] --NORMAL KIDNEY FUNCTION OR MILD DISEASE - GFR >OR= 60CHRONIC KIDNEY DISEASE - GFR 15 - 59RENAL FAILURE - GFR <15 Est. GFR calculation based on the MDRDstudy equation, which assumes a steadystate for creatinine. Est. GFR should notbe used for medication dosing. ID Date Data Source [id number] 09/30/2019 03:13:47 AM EDT [facility] Name Value Range Interpretation Code Description Data Rema rce(s) Supporting Document(s) PT 14.8 s (9.2-11.9) H [facility] INR 1.44 [facility] SUGGESTED THERAPEUTIC RANGES USING INR F ORSTABILIZED ANTICOAGULATED PATIENTS:STANDARD DOSE THERAPY INR 2.0-3.0 DVT, PE, PREVENT DVT OR EMBOLISMHIGH DOSE THERAPY INR 2.5-3.5 PREVENT EMBOLISM FROM MECHANICAL HEART VALVE ID Date Data Source [id number] 09/30/2019 03:03:17 AM EDT [facility] Name Value Range Interpretation Code Description Data Rema rce(s) Supporting Document(s) WBC 5.2 10*3/uL (4.1-11.0) [facility] [place] RBC 3.42 10*6/uL (4.60-6.10) L [facility] HGB 7.6 g/dL (13.5-18.0) L [facility] HCT 23.7 % (41.0-53.0) L [facility] PERFORMED AT [address] [place] [address] N Y [address] MCV 69.4 fL (80.0-95.0) L [facility] MCH 22.2 pg (27.0-32.0) L [facility] MCHC 32.0 g/dL (32.0-36.0) [facility] RDW 15.9 % (10.5-14.5) H [facility] PLT 235 10*3/uL (150-450) [facility] MPV 8.1 fL (7.1-10.7) [facility] ID Date Data Source [id number] 09/29/2019 10:42:29 AM EDT [facility] Name Value Range Interpretation Code Description Data Rema rce(s) Supporting Document(s) PT 15.7 s (9.2-11.9) H [facility] INR 1.53 [facility] SUGGESTED THERAPEUTIC RANGES USING INR F ORSTABILIZED ANTICOAGULATED PATIENTS:STANDARD DOSE THERAPY INR 2.0-3.0 DVT, PE, PREVENT DVT OR EMBOLISMHIGH DOSE THERAPY INR 2.5-3.5 PREVENT EMBOLISM FROM MECHANICAL HEART VALVE ID Date Data Source [id number] 09/29/2019 07:43:58 AM EDT [place], [place] [address]Patient Name: ODIN PLASCENCIATRINAOB: 1935Sex: MOrdering Provider: SHAUN De Jesus Prov: SHAUN Scales Provider: Procedure Performed: XR CHEST PA AND LATERALExam Date: 09/29/2019 00:00MRN: [id number] Number: [id number] Class: OutpatientAccount #: [id number] for Exam: shortness of breathTechnique: PA and [...] MAR WATTS On 09/29/2019 7:43 AMWorkstation ID: [id number] - [id number] Name Value Range Interpretation Code Description Data Rema rce(s) Supporting Document(s) ID Date Data Source [id number] 09/29/2019 07:39:36 AM EDT [place], [place] [address]Patient Name: ODIN TINAOB: 1935Sex: MOrdering Provider: LILIA Alonzo Prov: LILIA Cardoso Provider: Procedure Performed: XR CHEST PORTABLEExam Date: 09/28/2019 22:17MRN: [id number] Number: [id number] Class: OutpatientAccount #: [id number] for Exam: DyspneaTechnique: AP portable view obtained.Comparison: [...] WATTS On 09/29/2019 7:39 AM Workstation ID: [id number] - [id number] Name Value Range Interpretation Code Description Data Rema rce(s) Supporting Document(s) ID Date Data Source [id number] 09/29/2019 05:47:33 AM [facility]T [facility] NT INFORMATIONPatient MRN Name Date of Age Gend*PT [id number] Odin Jones 1935 83 years M OBSPT Location Admission Date/Time Visit ID Attending [id number] 09/28/192113 --- Dennys Silvestre MD([id number]) EPI ID CSN Admitting Provider [id number] Dennys Silvestre MD([id number])Provider in Triage NotesNo notes on fileHistory of Present IllnessChief ComplaintPatient presents with Shortness of Breath pt had CABG and was discharged from hospital today and sent to [facility]. ems state that patient's daughters called [...] c/o of SOB. 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 Patient was discharged to [facility]. Patient reports hisdaughter's called 911 after patient was c/o that "I do not want to be there. Enrike more work than they do" about being at [facility] and that he hadincreased SOB after dinner. He reports his SOB has worsened since beingdischarged today. 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 Myocardial infarction [...] or performed during the hospital encounter of 09/28/19CBC w/ diffResult Value Ref Range WBC 7.7 [...] JENNA EVA On 09/28/2019 9:31 AMWorkstation ID: [id number] - [id number] Diagnoses or Management OptionsDyspnea:Amount and/or Complexity [...] rce(s) Supporting Document(s) ID Date Data Source [id number] 09/29/2019 02:06:39 AM EDT [facility] Name Value Range Interpretation Code Description Data Rema rce(s) Supporting Document(s) SODIUM 142 mmol/L (136-145) [facility] POTASSIUM 4.1 mmol/L (3.6-5.2) [facility] CHLORIDE 100 mmol/L (100-108) [facility] CO2 39 mmol/L (22-31) H [facility] ANION GAP 3 mmol/L (7-16) L [facility] UREA NITROGEN 61 mg/dL (7-24) H [facility] CREATININE 1.97 mg/dL (0.80-1.30) H [facility] BUN/CREAT RATIO 31.0 RATIO (10.0-20.0) H [facility] GLUCOSE 129 mg/dL (70-99) H [facility] CALCIUM 9.2 mg/dL (8.4-10.2) [facility] GFR 33 ml/min/1.73m2 (>59) L [facility] GFR ( AMER) 40 ml/min/1.73m2 (>59) L [facility] GFR INTERPRETATION [facility] --NORMAL KIDNEY FUNCTION OR MILD DISEASE - GFR >OR= 60CHRONIC KIDNEY DISEASE - GFR 15 - 59RENAL FAILURE - GFR <15 Est. GFR calculation based on the MDRDstudy equation, which assumes a steadystate for creatinine. Est. GFR should notbe used for medication dosing. ID Date Data Source [id number] 09/29/2019 01:54:54 AM EDT [facility] Name Value Range Interpretation Code Description Data Rema rce(s) Supporting Document(s) WBC 7.0 10*3/uL (4.1-11.0) [facility] [place] RBC 4.05 10*6/uL (4.60-6.10) L [facility] HGB 8.9 g/dL (13.5-18.0) L [facility] HCT 28.3 % (41.0-53.0) L [facility] PERFORMED AT [address] [place] [address] [place] [address] MCV 69.9 fL (80.0-95.0) L [facility] MCH 22.0 pg (27.0-32.0) L [facility] MCHC 31.4 g/dL (32.0-36.0) L [facility] RDW 15.9 % (10.5-14.5) H [facility] PLT 250 10*3/uL (150-450) [facility] MPV 8.4 fL (7.1-10.7) [facility] ID Date Data Source [id number] 09/28/2019 11:54:31 PM EDT [facility] Name Value Range Interpretation Code Description Data Rema rce(s) Supporting Document(s) NT PRO BNP 3609 pg/mL (0-450) H [facility] ID Date Data Source [id number] 09/28/2019 11:10:40 PM EDT [facility] Name Value Range Interpretation Code Description Data Rema rce(s) Supporting Document(s) SODIUM 142 mmol/L (136-145) [facility] POTASSIUM 4.1 mmol/L (3.6-5.2) [facility] CHLORIDE 102 mmol/L (100-108) [facility] CO2 34 mmol/L (22-31) H [facility] ANION GAP 6 mmol/L (7-16) L [facility] UREA NITROGEN 61 mg/dL (7-24) H [facility] CREATININE 1.95 mg/dL (0.80-1.30) H [facility] BUN/CREAT RATIO 31.3 RATIO (10.0-20.0) H [facility] GLUCOSE 167 mg/dL (70-99) H [facility] CALCIUM 8.6 mg/dL (8.4-10.2) [facility] GFR 33 ml/min/1.73m2 (>59) L [facility] GFR ( AMER) 40 ml/min/1.73m2 (>59) L [facility] GFR INTERPRETATION [facility] --NORMAL KIDNEY FUNCTION OR MILD DISEASE - GFR >OR= 60CHRONIC KIDNEY DISEASE - GFR 15 - 59RENAL FAILURE - GFR <15 Est. GFR calculation based on the MDRDstudy equation, which assumes a steadystate for creatinine. Est. GFR should notbe used for medication dosing. ID Date Data Source [id number] 09/28/2019 11:00:42 PM EDT [facility] Name Value Range Interpretation Code Description Data Rema rce(s) Supporting Document(s) WBC 7.7 10*3/uL (4.1-11.0) [facility] [place] RBC 3.96 10*6/uL (4.60-6.10) L [facility] HGB 8.7 g/dL (13.5-18.0) L [facility] HCT 27.8 % (41.0-53.0) L [facility] MCV 70.2 fL (80.0-95.0) L [facility] MCH 22.0 pg (27.0-32.0) L [facility] MCHC 31.3 g/dL (32.0-36.0) L [facility] RDW 16.2 % (10.5-14.5) H [facility] PLT 238 10*3/uL (150-450) [facility] MPV 8.2 fL (7.1-10.7) [facility] NEUT % 75.7 % (35.0-75.0) H [facility] LYMPH % 7.7 % (16.0-52.0) L [facility] MONO % 11.5 % (0.0-8.0) H [facility] EOS % 4.7 % (0.0-5.0) [facility] BASO % 0.4 % (0.0-4.0) [facility] NEUT # 5.8 10*3/uL (1.8-7.7) [facility] LYMPH # 0.6 10*3/uL (1.2-4.8) L [facility] MONO # 0.9 10*3/uL (0.0-0.8) H [facility] Eosinophils [#/volume] in Blood by Automated count 0.4 10*3/uL (0.0-0 .5) [facility] BASO # 0.0 10*3/uL (0.0-0.2) [facility] ID Date Data Source [id number] 09/28/2019 09:31:21 AM EDT [address] [address]Jdktgts Name: ODIN PLASCENCIARDOB: 1935Sex: MOrdering Provider: PIETRO Cruz Prov: PIETRO Bar Provider: Procedure Performed: XR CHEST PA AND LATERALExam Date: 09/28/2019 09:21MRN: [id number] Number: [id number] Class: InpatientAccount #: [id number] for Exam: effusionsTechnique: PA and lateral views [...] JENNA VELASQUEZ On 09/28/2019 9:31 AMWorkstation ID: [id number] - [id number] Name Value Range Interpretation Code Description Data Rema rce(s) Supporting Document(s) ID Date Data Source [id number] 09/28/2019 11:39:35 AM EDT [facility] Name Value Range Interpretation Code Description Data Rema rce(s) Supporting Document(s) PT 17.7 s (9.2-11.9) H [facility] INR 1.74 [facility] SUGGESTED THERAPEUTIC RANGES USING INR F ORSTABILIZED ANTICOAGULATED PATIENTS:STANDARD DOSE THERAPY INR 2.0-3.0 DVT, PE, PREVENT DVT OR EMBOLISMHIGH DOSE THERAPY INR 2.5-3.5 PREVENT EMBOLISM FROM MECHANICAL HEART VALVE ID Date Data Source [id number] 09/28/2019 11:33:17 AM EDT [facility] Name Value Range Interpretation Code Description Data Rema rce(s) Supporting Document(s) WBC 7.4 10*3/uL (4.1-11.0) [facility] [place] RBC 3.75 10*6/uL (4.60-6.10) L [facility] HGB 8.4 g/dL (13.5-18.0) L [facility] HCT 25.7 % (41.0-53.0) L [facility] MCV 68.6 fL (80.0-95.0) L [facility] MCH 22.3 pg (27.0-32.0) L [facility] MCHC 32.6 g/dL (32.0-36.0) [facility] RDW 15.9 % (10.5-14.5) H [facility] PLT 221 10*3/uL (150-450) [facility] MPV 8.6 fL (7.1-10.7) [facility] ID Date Data Source [id number] 09/28/2019 11:53:46 AM EDT [facility] Name Value Range Interpretation Code Description Data Rema rce(s) Supporting Document(s) SODIUM 142 mmol/L (136-145) [facility] POTASSIUM 4.0 mmol/L (3.6-5.2) [facility] CHLORIDE 99 mmol/L (100-108) L [facility] CO2 38 mmol/L (22-31) H [facility] ANION GAP 5 mmol/L (7-16) L [facility] UREA NITROGEN 59 mg/dL (7-24) H [facility] CREATININE 1.89 mg/dL (0.80-1.30) H [facility] BUN/CREAT RATIO 31.2 RATIO (10.0-20.0) H [facility] GLUCOSE 112 mg/dL (70-99) H [facility] CALCIUM 8.8 mg/dL (8.4-10.2) [facility] GFR 34 ml/min/1.73m2 (>59) L [facility] GFR ( AMER) 42 ml/min/1.73m2 (>59) L [facility] GFR INTERPRETATION [facility] --NORMAL KIDNEY FUNCTION OR MILD DISEASE - GFR >OR= 60CHRONIC KIDNEY DISEASE - GFR 15 - 59RENAL FAILURE - GFR <15 Est. GFR calculation based on the MDRDstudy equation, which assumes a steadystate for creatinine. Est. GFR should notbe used for medication dosing. ID Date Data Source [id number] 09/27/2019 06:12:45 PM EDT [facility] NT INFORMATIONPatient MRN Name Date of Age Gend*PT [id number] Odin Jones 1935 83 years M IPPT Location Admission Date/Time Visit ID Attending [id number] 09/20/19 0954 --- Elizabeth De La Garza MD([id number]) EPI ID CSN Admitting Provider [id number] Elizabeth De La Garza MD([id number]) Attestation signed by Beck Martins DO at 09/27/2019 6:12 PMProcedure performed under my supervision, I agree with above report.Beck Martins DO 09/27/2019 6:12 PMDepartment of Interventional Radiology Brief Operative/Invasive Procedure NoteOdin Muñoz AsmitaATE OF : 1935MRN # [id number] DATE: 09/27/2019PROVIDER:GARRET Novak 09/27/2019 9:48 AMPROCEDURE:US guided left thoracentesis - Approx 450 cc of serosanguineous fluiddrainedPRE-PROCEDURE DIAGNOSIS:Left pleural effusionPOST PROCEDURE DIAGNOSIS:Left pleural effusionANESTHESIA TYPE:local - 1% lidocaine (5cc)SPECIMENS:NoneESTIMATED BLOOD LOSS: MinimalGRAFTS OR IMPLANTS:NoneFINDINGS: Consistent with operative diagnosisCOMPLICATIONS: NoneScott Channels, MUSAepartment of Interventional Radiology Name Value Range Interpretation Code Description Data Rema rce(s) Supporting Document(s) ID Date Data Source [id number] 09/27/2019 11:50:27 AM EDT [address] [address]Pnuwfas Name: ODIN ADAIRDAVIDOB: 1935Sex: MOrdering Provider: PIETRO Cruz Prov: PIETRO Bar Provider: Procedure Performed: IR THORACENTESIS LOCALIZATION LEFTExam Date: 09/27/2019 09:48MRN: [id number] Number: [id number] Class: InpatientAccount #: [id number] for Exam: Left pleural effusionThis is an [...] Under ultrasound guidance with image documentation, a 5-[place] catheter was inserted into the left pleural [...] BECK MARTINS On 09/27/2019 11:50 AMWorkstation ID: [id number] - [id number] Name Value Range Interpretation Code Description Data Rema rce(s) Supporting Document(s) ID Date Data Source [id number] 09/27/2019 02:21:00 AM EDT [facility] Name Value Range Interpretation Code Description Data Rema rce(s) Supporting Document(s) SARS coronavirus 2 RNA [Presence] in Res piratory specimen by VIET with probe detection [facility] This lab was reported by Lab [facility]. ID Date Data Source [id number] 09/27/2019 06:25:03 AM EDT [facility] Name Value Range Interpretation Code Description Data Rema rce(s) Supporting Document(s) SPECIMEN DESCRIPTION [facility] COVID19 RESULT (NDET) Lab [facility] THIS ASSAY AMPLIFIES AND DETECTSTHE TARG ET RNA USING REAL-TIME PCR.NEGATIVE 2019_NCOV RT-PCR RESULTS DONOT PRECLUDE 2019_NCOV INFECTION ANDSHOULD NOT BE USED THE SOLE BASISFOR PATIENT MANAGEMENT DECISIONS. COMMENT [facility] APPROVED B Y THE [facility]. THE U.[place]. FOODAND DRUG ADMINISTRATION HAS NOT APPROVEDTHIS TEST. NEGATIVE RESULTS DO NOT [id number] INFECTION AND SHOULD NOT BEUSED THE SOLE BASIS FOR CLINICALDIAGNOSIS OR PATIENT MANAGEMENT DECISIONS.EMAILED [facility] [place] [id number] AT [address] ZQ [id number] ID Date Data Source [id number] 09/27/2019 04:19:08 AM EDT [facility] Name Value Range Interpretation Code Description Data Rema rce(s) Supporting Document(s) MAGNESIUM 2.7 mg/dL (1.7-2.4) H [facility] ID Date Data Source [id number] 09/27/2019 04:19:08 AM EDT [facility] Name Value Range Interpretation Code Description Data Rema rce(s) Supporting Document(s) SODIUM 140 mmol/L (136-145) [facility] POTASSIUM 4.2 mmol/L (3.6-5.2) [facility] CHLORIDE 100 mmol/L (100-108) [facility] CO2 34 mmol/L (22-31) H [facility] ANION GAP 6 mmol/L (7-16) L [facility] UREA NITROGEN 57 mg/dL (7-24) H [facility] CREATININE 1.75 mg/dL (0.80-1.30) H [facility] BUN/CREAT RATIO 32.6 RATIO (10.0-20.0) H [facility] GLUCOSE 113 mg/dL (70-99) H [facility] CALCIUM 8.5 mg/dL (8.4-10.2) [facility] GFR 38 ml/min/1.73m2 (>59) L [facility] GFR ( AMER) 45 ml/min/1.73m2 (>59) L [facility] GFR INTERPRETATION [facility] --NORMAL KIDNEY FUNCTION OR MILD DISEASE - GFR >OR= 60CHRONIC KIDNEY DISEASE - GFR 15 - 59RENAL FAILURE - GFR <15 Est. GFR calculation based on the MDRDstudy equation, which assumes a steadystate for creatinine. Est. GFR should notbe used for medication dosing. ID Date Data Source [id number] 09/27/2019 04:06:23 AM EDT [facility] Name Value Range Interpretation Code Description Data Rema rce(s) Supporting Document(s) PT 20.1 s (9.2-11.9) H [facility] INR 1.99 [facility] SUGGESTED THERAPEUTIC RANGES USING INR F ORSTABILIZED ANTICOAGULATED PATIENTS:STANDARD DOSE THERAPY INR 2.0-3.0 DVT, PE, PREVENT DVT OR EMBOLISMHIGH DOSE THERAPY INR 2.5-3.5 PREVENT EMBOLISM FROM MECHANICAL HEART VALVE ID Date Data Source [id number] 09/27/2019 04:01:28 AM EDT [facility] Name Value Range Interpretation Code Description Data Rema rce(s) Supporting Document(s) WBC 7.6 10*3/uL (4.1-11.0) [facility] RBC 3.42 10*6/uL (4.60-6.10) L [facility] HGB 7.7 g/dL (13.5-18.0) L [facility] HCT 23.8 % (41.0-53.0) L [facility] MCV 69.5 fL (80.0-95.0) L [facility] MCH 22.4 pg (27.0-32.0) L [facility] MCHC 32.2 g/dL (32.0-36.0) [facility] RDW 15.4 % (10.5-14.5) H [facility] PLT 165 10*3/uL (150-450) [facility] MPV 8.8 fL (7.1-10.7) [facility] ID Date Data Source [id number] 09/26/2019 02:43:26 PM EDT [facility] NT INFORMATIONPatient MRN Name Date of Age Gend*PT [id number] JesuscoralOdin cheng Toni 1935 83 years M IPPT Location Admission Date/Time Visit ID Attending [id number] 09/20/19 0954 --- Elizabeth De La Garza MD([id number]) EPI ID CSN Admitting Provider [id number] Elizabeth De La Garza MD([id number]) Attestation signed by Beck Martins DO at 09/26/2019 2:43 PMProcedure performed under my supervision, I agree with above report.Beck Martins DO 09/26/2019 2:43 PMDepartment of Interventional Radiology Brief Operative/Invasive Procedure NoteOdin TianATE OF : 1935MRN # [id number] DATE: 09/26/2019PROVIDER:GARRET Novak 09/26/2019 8:32 AMPROCEDURE:US guided right thoracentesis - Approx 550 cc of serosanguineous fluiddrainedPRE-PROCEDURE DIAGNOSIS:Right pleural effusionPOST PROCEDURE DIAGNOSIS:Right pleural effusionANESTHESIA TYPE:local - 1% lidocaine (5cc)DRAINS:NoneSPECIMENS:NoneESTIMATED BLOOD LOSS: MinimalGRAFTS OR IMPLANTS:NoneFINDINGS: Consistent with operative diagnosisCOMPLICATIONS: NoneScott Channels, PADepartment of Interventional Radiology Name Value Range Interpretation Code Description Data Rema rce(s) Supporting Document(s) ID Date Data Source [id number] 09/26/2019 11:09:45 AM EDT [address] [address]Tpdqnos Name: ODIN TIANOB: 1935Sex: MOrdering Provider: SHAUN De Jesus Prov: SHAUN Scales Provider: Procedure Performed: XR CHEST PA AND LATERALExam Date: 09/26/2019 10:58MRN: [id number] Number: [id number] Class: InpatientAccount #: [id number] for Exam: follow up on pleura effusions, [...] MAR WATTS On 09/26/2019 11:09 AMWorkstation ID: [id number] - [id number] Name Value Range Interpretation Code Description Data Rema rce(s) Supporting Document(s) ID Date Data Source [id number] 09/26/2019 10:54:46 AM EDT [address] [address]Lgwoeqj Name: ODIN PLASCENCIARDOB: 1935Sex: Maddy Provider: EVAN Hess Prov: EVAN Harper Provider: Procedure Performed: IR THORACENTESIS LOCALIZATION RIGHTExam Date: 09/26/2019 08:34MRN: [id number] Number: [id number] Class: InpatientAccount #: [id number] for Exam: Right pleural effusionThis is an [...] Under ultrasound guidance with image documentation, a 5-[place] catheter was inserted into the right pleural [...] BECK MARTINS On 09/26/2019 10:54 AMWorkstation ID: [id number] - [id number] Name Value Range Interpretation Code Description Data Rema rce(s) Supporting Document(s) ID Date Data Source [id number] 09/26/2019 07:46:53 AM EDT [facility] Name Value Range Interpretation Code Description Data Rema rce(s) Supporting Document(s) MAGNESIUM 2.4 mg/dL (1.7-2.4) [facility] ID Date Data Source [id number] 09/26/2019 07:46:53 AM EDT [facility] Name Value Range Interpretation Code Description Data Rema rce(s) Supporting Document(s) POTASSIUM 3.7 mmol/L (3.6-5.2) [facility] ID Date Data Source [id number] 09/26/2019 03:42:34 AM EDT [facility] Name Value Range Interpretation Code Description Data Rema rce(s) Supporting Document(s) MAGNESIUM 2.4 mg/dL (1.7-2.4) [facility] ID Date Data Source [id number] 09/26/2019 03:42:34 AM EDT [facility] Name Value Range Interpretation Code Description Data Rema rce(s) Supporting Document(s) SODIUM 141 mmol/L (136-145) [facility] POTASSIUM 3.8 mmol/L (3.6-5.2) [facility] CHLORIDE 101 mmol/L (100-108) [facility] CO2 35 mmol/L (22-31) H [facility] ANION GAP 5 mmol/L (7-16) L [facility] UREA NITROGEN 61 mg/dL (7-24) H [facility] CREATININE 1.99 mg/dL (0.80-1.30) H [facility] BUN/CREAT RATIO 30.7 RATIO (10.0-20.0) [facility] GLUCOSE 114 mg/dL (70-99) H [facility] CALCIUM 8.6 mg/dL (8.4-10.2) [facility] GFR 32 ml/min/1.73m2 (>59) L [facility] GFR ([facility]) 39 ml/min/1.73m2 (>59) L [facility] GFR INTERPRETATION [facility] --NORMAL KIDNEY FUNCTION OR MILD DISEASE - GFR >OR= 60CHRONIC KIDNEY DISEASE - GFR 15 - 59RENAL FAILURE - GFR <15 Est. GFR calculation based on the MDRDstudy equation, which assumes a steadystate for creatinine. Est. GFR should notbe used for medication dosing. ID Date Data Source [id number] 09/26/2019 03:24:21 AM EDT [facility] Name Value Range Interpretation Code Description Data Rema rce(s) Supporting Document(s) PT 20.3 s (9.2-11.9) H [facility] INR 2.01 [facility] SUGGESTED THERAPEUTIC RANGES USING INR F ORSTABILIZED ANTICOAGULATED PATIENTS:STANDARD DOSE THERAPY INR 2.0-3.0 DVT, PE, PREVENT DVT OR EMBOLISMHIGH DOSE THERAPY INR 2.5-3.5 PREVENT EMBOLISM FROM MECHANICAL HEART VALVE ID Date Data Source [id number] 09/26/2019 03:17:14 AM EDT [facility] Name Value Range Interpretation Code Description Data Rema rce(s) Supporting Document(s) WBC 6.0 10*3/uL (4.1-11.0) [facility] RBC 3.34 10*6/uL (4.60-6.10) L [facility] HGB 7.5 g/dL (13.5-18.0) L [facility] HCT 23.2 % (41.0-53.0) L [facility] MCV 69.5 fL (80.0-95.0) L [facility] MCH 22.6 pg (27.0-32.0) L [facility] MCHC 32.5 g/dL (32.0-36.0) [facility] RDW 15.8 % (10.5-14.5) H [facility] PLT 143 10*3/uL (150-450) L [facility] MPV 8.6 fL (7.1-10.7) [facility] ID Date Data Source [id number] 09/25/2019 08:44:56 PM EDT [facility] Name Value Range Interpretation Code Description Data Rema rce(s) Supporting Document(s) MAGNESIUM 2.4 mg/dL (1.7-2.4) [facility] ID Date Data Source [id number] 09/25/2019 08:44:56 PM EDT [facility] Name Value Range Interpretation Code Description Data Rema rce(s) Supporting Document(s) POTASSIUM 3.6 mmol/L (3.6-5.2) [facility] ID Date Data Source [id number] 09/25/2019 12:45:05 PM EDT [facility] Name Value Range Interpretation Code Description Data Rema rce(s) Supporting Document(s) POTASSIUM 3.9 mmol/L (3.6-5.2) [facility] ID Date Data Source [id number] 09/25/2019 12:45:05 PM EDT [facility] Name Value Range Interpretation Code Description Data Rema rce(s) Supporting Document(s) MAGNESIUM 2.3 mg/dL (1.7-2.4) [facility] ID Date Data Source [id number] 09/25/2019 08:59:53 AM EDT [facility] Name Value Range Interpretation Code Description Data Rema rce(s) Supporting Document(s) EKG [facility] ASJEGf0jLdXNJdLvm4CzHtLyNDOkDG7tkui5Z1W4cCVlR7NciBPvv6dtA9BcA4AfEKNmVZNHBH3PiGXh jb2 [file] cy2kY7xZPGj9wcfgo0zc27h0XF/Cullet Crusher+B20ubPw2fOpmooNK35Hv/NneIsfRcYvyeZpe/EUtOE93sMxm3X HAD0z6HOLh77MbueluE9eCvJ9/1F2tH7GG1W/F5tJt+9LRiP6+S6z0nql9qjK5FvyrU7sSn8H1JuslQF 3xmn5t4bKm5Npqlp9Ap4KohFysmmWGZMsmwezbiKxn iHvvwnsd86qVndVaYK+e50l/b4/Am1SX00pGdypXN3fyUT49IN2Z4FS024R15OFbU3krHf4jhF37/mlr ciIXmpB8mqy1AbslZ1a3B+95J+hiLWmUTqXyhy2zC99ZkhxC5+QnGI873aFojqjioxsaXrj/gyHW43ms n3hyAasdsxOyf98UHW2enYkW48szRvqbDk7F0COP69 nq7wtda+t2NmPmFd5JCu3N3hgH/ax+uuQd+zegp8Gdt9RCp4G5hJRogIK77URL416VbJ3X2RertP28WZ ft9o+W1lKntoWOric18Gmt225nmmTt883EbxZghbgRLt1BuLUtiqNQzdiet5lA8c3bVri7Ps4Ew46zIq Ta4Wl7mAIYeaYQzpSnlS1fYmeiTZs8S7pjily5bC+m 6VHFJviE+CE9h9qMIUdL/aQozek5ukeYs7ora+jeh4Irxcx/i+Z5k3xPzH8Zuvx7Le2Gx3Fvcne1Wr7s C1edW2CcOF9R6DpjAhtu9+EwAr095m2enbs4YbRi6+t9D6g4iNxZ9bHKRL9xXpdCtlDHbvQiOdUwodvC bpO+Lz9l8tuNZBb3+0SiHreTz6xEY2+M5D9Ke7r/w8 kajT2Yq9DbiTyenqLbh6Kzp7dzy/f06Hr1m4lJmKAbJbkySsfq9ohq3Q2aK+m7wlzm1jDsPR5v6cC/oi cTEXzOUatmBbruFIP/k5bYu/udYzi7g/C0KL2F29JoPOqIjeWu85STmO8lHxXeN+98YrDmubFxL1PbpF N2ifrhDP7r1fb39g7gC7LEN+Q5Cp46v1JAe8w2723+ [file] physical instructor/kfTFZsK1kLaZO89YyWhfYASzpJOOoyrKtirVzl lYaZ2rlpThR6K/dbzq47Dmmi36N8bw8Xdpdaj/srg21zmJbC/MR3jg2aSX6l/Dlyp1rIF/FE3SCK6wx4 ZLbtu1tDIeBtl2B2slJ3pNfgqK+dOhSWCePD2ap0M6We3cNTvDBU1EVapd7ynoBB8obeaE2Bcw3bnhH/ xZmKOHa+FwHhxg6+lI5qvYwRVLLfelmLN8L7l0xE/L Yyy8aQlLA1o/lsvBPEh/KI63sDiux+GAMzEXDco64LU/sV4TV5sk5/cf//pf//4n3rKs/fcV/Pf//ed/ /J/2P//59//753//+18R/6drnX/+61/lrGHwVEH7grrxI2QY/wQ6KQv57O27/qc+Hy1lyAU+/eLPiHD/ xZ+nqUS1Jum/35EM/8V3vUn/6Y1/MOhS9EW2+8VPxa 8P4V+8Key/eFN6/8Uvxf/6270p/Iv3eCX/0xYr/IvfkeanK/6Fl8J/8eNT/K+/Oof8potvq++I//X3pz T9wr/+/tSkCP/ym1JGA2IY//u4W92roPvQ8Knigyhem0ivHT69x6/lFmhumBNwX1Vw4vdNt4jaeN2Tx4 bqr70B3dfiO/gntxOyGjG+R/HmpteF9b0LHddJK/kP f3EKKt1kduNBI5E4gbJ5M6iC82wshN3D86aIibqx1fzjle1Ro4fewC+aw7PV/J/9e3N+9lovP+3vT0nK 8C8+3a7/+tsk25/qF0em/wwfyf/IpMdHWnH9IVfB5fweAP4BM+v739C76hzslH2niZ0Z+lX4p+/9nQib wn/xn+p2M5d93E3w+3os3wfsZ13vs4/eiXJmlK/wr7 8v/IvX+V03vBww3cDm0Q4oW+GvzE6Sabw1bn0bHSd4L/r7U+xe+d9bcCFo61N/F/q7or+ZxlCvVTvXQv wq+S+v9i9H/Ea9G+ZrsJmc3pq13+ivtyrHG+V69ctj86VyB122Wl4ZsX3RTp82tiLKZaH65aD6IxIeYB /H+N6s7luL/aga4wM6xc/C6O/bIz1fVS1Hn/HdGN9t H8LV/b1KxdBk34xa0k+ot8trhtHv0Taxky1vw8z6ah/SH/T3oL+bEl8dt2x358B/CrO5YR5JuSS8TU5s Ps2MRxv3p+R/CX7qYP52B/k7oAvP7V01tL/qqZuCH99jSfG2zJ9qg5mj7oWE7RrRG7Ut/d6Q2gat8s+h pLLfpcbli2cbwvBOKqFfr+D5fG31z6wY/Enz7zFvVK l6V630G8+6eaO/63IqQ46znaU4Mu+96Jl6Dg4F/jkQhyAtRsg6Q/xG+o1+HdQb/B42IPl5cay6Ka65Y3 BnWND38N/u7BIs5T1sKRFf4HC4UwUm1JaydiTV0S6mu/76O8+3u3QYMax088vPjljpOD/Nz3Z2ete2nh qfoV/qLAm2Iujk8Qo3Lha5TnweqN3vmgqMZNR+9cKI B3xDeuv3SW4oS769uKJasG+6S5Jntui+0E2qdjhQAE/oV9n+0K9ufK/6f00HZfkfD6jGxYO12xq9DQwp 3Ro2lQfVT+i23Cxi29sLpY4C46Mhhu1CG/NW+pXSSL/TgIv0mkid+oMWs9ErvjbrI/pVhifSR3/bBfIQ LhgT7g2Nfaz9ains/SrTbKTfiD/o16nyf/fWRGj6ij IYj6tbotiaW6OX3JqnN+Jx9Xx8YpGuwnt9oE0eckm/yrxecpN+lfHo70+/em04aA/0W7m9Uy4GUV26Vj oBndq4CfPoqKRroG9K+Dr2Z+lXmddQjqHeVetI+uSO14obgGzDPU50kD7H2Arv0Ie7YLDNq3L5yW0xwE 3xY8WbnIudJ8F9AQbcWij13G+/pu685YcrIBc79Tcu BM4Qzy/lnuBLlC0jfMVcGjRl50f/Tu0P0q+0d4V+tqMMYBbKWDOxFPMhKY5m/tak4n/9ndqLQr/6Lcpf +Ixq5ipJn/Frq/qjj81uru+/K/P+xteG4n/pG4JbWZ3kR4XiL4ik/Vk6Oya8VGbq2tjmMLxkNixtVOCV 0K/uWV64A3yIlKj/vrTP4Rbv/SrKGdKvMtwRX9+j8d Z8fTjE6IJ+4vc1C5dta7aHZY7XhrrvPUv/wpd8sfuUj6FoNYnm05MbDzwiyxbo2Rqdvq+gYj67cgKgIy /fV7Z3IlrKCp3gXMleaYDqzANVw2h0vsss1zOhBTY36SM+Gq3OR/F+1mIS2V2QJ+lHdRhb72X/euEqP/ CgL1w3wxMg2oz1LY9ehs1lM617K+os8cTL9CduQ+Id 7X90RzGK/eqGo7+gii5nblO7tVpFZ2cmfwdPL75kwSwaofjWwNTbdJ11P+9oLaoTxZM2cPeFw9gML/Sr N4d729UuwdG3qsn6V25cGh0ndx1J1twRx8Sxni/IvsWpn59Wu2Qebp+D6AyNG2HNn6ttde4vdobxZ9nj q0y/OP8mwNK++uvKG/7RjQC84u9u/EprM/SrrrUZ+p D7gic4eSnhZC585a0i2VytQdiq0TCZqIGrcPJU/EX29SKMDxho3XNx4AXmeHiwpPelPJfIHOkrEpYlPg 8tNmewtIrwgL6rUPRiBAO3YOLY+pX2/4qw1ZRWLjzohYmPzPqEmqSBV0aZanLSG38P6nvI0nknrnIa33 dh9UWB1ubHJE6bbmkuEq5+U/V19lReePCUupjg9hby b+bLmqykHUFLwq3I8IN/rkFE3HIwcWw3n9Bx2Gt8yx1lhm6xrHqr8D8pbyQqfTL55XgRWXi6SfoSgfRS k6105DxY81efiy8q9Mmdn/BiuVHh54Ge/VbtZ0b3ggA+N/au9L7psA/zI3KaoUTgD2c3BPz+zEFnok34 fhc+XfDhQhWb2nDvM3orRm6aj/EOzWxLXiHvJs1QiY 6Dio/egeVm7ZaK/ScKz8I7+RjqNZRT+NU4C+ji0KzN1/l3CL/T0AP29Bp7bch7uk97/p3Ar+OQiX67Gs +k6n4rEX8hX/L7ehWobS/gklw0szj/yjYsxK+nh0/xA0YsBP9wN2ReD1T51bsGg/OvIc2MwRE+leHCN6 k4vycXuACPq7O607I67UHN+tGvwGah0BbTGf+cwq92 umej0S2e2DnWUoh/0f6D+GU6Es76mxl/aeCejkAytu5r4ymSpB4f2gR+wkOoDaew87U/3VD+Er5W7GBf m+WjU6n35oEtQ6l/hV+lGfSwTM6Be0LclNR+Cr+7YhBODxsNN5B3sYmt/CbaYqfePK0N+dj5hvVOvpIk dV6E9Wlwh4RjzkhRNcRrAgd0KRWgBYtFmPKZ+NUUfq XyhV9l+td1gp7e8PcZ/MqEf2haya73mCEXquOmFTyHJ2fz51AFjiWU+8Zmd7HiJS7H4x2jgoiX+NUNI3 1iS8Uwtzg/Bc30uyLP9F1oC0+eVnjdNPTXDuJPxev/mGkEeadErs61EEz9q/UNo81l1HexyQlG4pN+C/ 1d6O/C+C6Mr/HcC2Y7E+xfd4aKi5785+v/whR+leFW 5TvWr/DmcCVXxa5w3tRra2wHrvU4Rd/EeRRQ1A7r0PtVL+FXmWbX+dPX5yE3IqlwPr+ZB3HAF4+dwq9C J9m42Y5b/CrDA/GW825dYhhh41is6pwPVKejaQ44uv80wxIBb4lpvLUtY7px/PvnxVmG6O9D958R5Ig3 1capM2ne04uX05T9j3N+jyG+2Ma7mC6K2W7WlPW2Wf eRjTqtDJvN9k8zbUOjtfo8d4Df9FWuL8A75e8FykMAKbh+Si6uL5u4BKmNmrB+fMbHkGGlauhT6Fke6h /OmA1eDwi/SqZn3vjJk1Vlu20tj9v/yxjvfh6nHQb7VF5p6fkEM/t/d5Fq2ZQxBdrt+7vGmh89u0qwMl VslLNR/dT7l28m1Olct1xsbunxamRlsQY1yg16mi3u jyv6cbywNdm89TSkrUr4kzKduF/5txT+i/c4t8YN/b/aprQ9zoxh7d/jOzM+zr+egnR994H+3lFd4kH6 6KyeK7EJI+FXn9KX/myjzkcG/cpG/V+Iaq4MR/3PrIU116VUUO7r6JJV/5igWuqNolqR8eKy/h5FqbUf C/DdwjT3fAI9p7RzU8OpnjICdYuuzoOn48jjN/BYlT pZl33Jino9uApcf2Q/h9Hgt4c/j2xi/m27Epqz81ITYb/UGG7YcV/AMS2X5si2Eoq1p7Le/V8wq/sqZn Afquw7M9K9j7KD9iTembg4/kfD08kelovDit1s33bRqutPd72G2mAeE/xG+h13dc1y0u62j4mcX92lj7 PhocvzppgFPx6s0kbu81isr56/svqpcsbLFb4bZL8q /UJ6R/o6D9qq+5t1VxAh/Xqcc4fYzc1IDtf/Mty/srx/qCDDcEk8Y/TM2IgOH7LWUVuc6Le6KE2D80sn PCfuzb/9tqua7vskHtRkEjPmyJOhQhJX/jz3tEjCyYZtB7mnyO1ngkI+nzXA5tM9O+JEAFqSY72ue1ou Zz9cR1nSG/KJy8Ul+dayVsqxC1jV77jg5rFx+NCvcm 8P/UqYoeH/TToQm1syzIg+Mca4Gp/0gVdWt7mCjKX+hSfiJ+AEbnkMpwjgop59RlNrjt1HV/2QKfT052 gN/+Lr/nPcha/bXi810mIqHumvk35lZ05WPw1cFl7qLebkJ52uDf6vV4zxY2UWR/VLsbQX620N/4/r7z rY5uD25lGu+H7rswV62gfm++2leuZk00lrpC9yMt8m j4r3xA25YgsyXFRP1ld/1qV45vy+97rWltN9cJtm01O/l8sLrnLz9P1cuqgfKtwJvaG+tRQufGPh/tXC /riWFu6lnu6BF/nI6oVRuu317+qlP69e+vRdsE9h3GbraantEmfU9DKyI4Ky6mbQjjM6I+g8j6LlpQHx +zil424qbS0oe9JxGx9u/79L+lWGG+Ib0pd+tUZHev X45DprFg/K+SezMNKU2ef+zhJ+lWFHexzlo7+p4oNdWtdWLiJetVjyvyZt/Ijh1CJp8es5jinGdDrpl0 nk70UaI+ejoxqjVWsqkX2LGIpiQSvbGD1X62C4hP07EE/39uO1P0cO49gM6IP/I0lqx4g8o4Ge6rnzC3 9x/7q1d1rJGbnlByiW+bmKL+zJzI+RUPwyw40mSVHV U9X3n/Z+HIB5hGISP6q8BQra4Ef5gqxW/6tl6K/sK42/ob+G/viaN4gBi+tzwFtpbz1PbUfC+sDR71vw tqvc55XvmB7E6lrd/K/WQn/T/aqebk3GzzDE+bzw/m3LejJ2c6s+0buu305hxz9KX/+B9TdXuhhGf5FV wXeT1euwYw1o7hGf+3D9/JGWL+BbDDpH64pvVQ3y45 169lvHrfg+XYC3SBhsynKRms37Md8M9NNp5eyzQmdlR1GwnW0CG1eB/aXk8LVyOZtv/sxwaozg31o+Pl xXO3er/NzSObsmnAY75r6ug6lzQe/4SBubenN62pJ/N/r9SyD61zVm2G+7Eb3c6d+/f/V8/fuQXs/Xv2 Q39RGiaF8O4806hq6YE9kejB5bw348p3Z+7bamh7Vb oWtH+zsaSU2G+pbvlEY5W/096wX/Tn+XekWb5Mld0rs/8sj/5v0CeIoS+1PXSB/IP+q+baL+01+1QfhV ufiB47cexMxsR2/4gwu/yvRA/s44n2Ekg6rrD939g/t5Ylb1Q/6O/XB7I0XN2h4Lw7HjM/6F/Be9E244 Sharron/IH+gX3i+Ne5rsJ6P/N23zmCQt8H/A/5WlqU7Cj 034VeZZyK/Ib/M4zwZm2Ej1meUk+D5Cr+xiEh72myz/RV+da+Gqr6Cr0XJDe/99ddrSk5xmAIgCwBH8K fznXi+11rzz06CQae17ju93849Lhfj4z5Q2MhpNV/2lXyB/NhXcyn/z94w5T/2lXxW/dhXS+0/9tWKvP 3y9vfP6S/vca8gM09Xv/Wvy/+mg1976eNo2X/oVv4M kcWe1vc2bpE/3a3+Ziqb5t8VhypHbfrPjjVTx32hp1h1bqgXYr+2Jo1T45T/u57p8W/YB1fhkJ4/+7tG /sybRozV1KkB4Ree7lFY+7sc+R3tD9R/+wahgtvKucBa5fN/ddlXGkPYV+6vW8vjx5cW2QD3gux35Le9 kCQWcfHy02jtlZ9oB4f9HE1xlZU/rQc9/mzhMwx5Nv Qo/6cK8YbP66L/o+vyl2RyYQlHBjqLp7efxTeUsbab08+572JvF6/aL/Oo8xqu/UALi2m12TcZX47zSL 7vOo/y0N246U/o2mtqi5C+8vd27A/6NtRf+4O+W9ZE7wnxoo7t80D7GFi64wa8huE/q/arkOQ4QqyN1i XfHV/4p4UK733E/lcB/8v6GaUZompmQ1fdavWK/I56 hD/wYb0qk81ltiZCz5up67RmX/fSbKy0kVwCkzs/ixB+iv92EE68z34/ZZUznzy2d28Xk3u/UU/5A4f8 2zP/dZ7v1Rl66ynppjtMQ94RM//JFIgCKxdV4DxJ9FiVePpvOoBQK0S6FM7xgx6e8sp+GK63x5gGS3G6 wiejC5/U9UQ9E/YW5e68aMgLV/p8asPimkkd/p73Og 5+YEwurZ1WPc5Hmny9b2l7A7LlDKy9w/es811dPLS5A/l7R/l5t25pNcsB//sCf2dw7YqoNoHOzk3L+f YYeX2CAIEkNDNrxf0p3t+cH4xR/ioB/DuDMfYSL4NqBU3OQ0sfIw65hsqHU811Y8auHNRqasTz/kcxDe jwvk5vmuiktVso/Bwk9hYhO+nx/zxzK7MbdW0R85Ge +v+Gtbe+Y4wbbFwZG3ok9SfWU208Ylq++zZsIt0+XFvlWah/qD7FrdS/hv5a/X/Y3dkmvR9CGFq+iryu elZDeq1/Y6G/qyP/DG7D0HheRsnYdG6SpvX+q+yNWHi+q+iCNF24yB9hmC/jvni+jufr6K+mx795Bea7 K/gqi0k0a3Ic2JwV+idoC0IQ/fejtrJ2Pgvn6FCd+F Y7cW323k3WvjRO4wj4DuFVG14khh8Ti6tkUNiMgphJM+HX40jjA/inbO7cvA/ue3C54kL+wp0iDhF+wn KrCV16qq/J5919FslHEaDkp1xX2hFtwkF+izrZ06EA+3iOg2xdhL8mSf0UyL2bVq7xkRzP+Il3Va928d f/mx8Qa6HFe7upphdG/HaFd6viTg/9VX/3N1DP/Ope E/e1Nw4b+NUGfrW/Parker/vr9b7G/jVFn51/yI97JnyCsivN3/ardaDW/tNRrjyN7Tv/p414xZ+oai58r6X [file] KOm/MALIK+ApCE/BujtTw6YIvidRRIYHbV7fl9eoNiIpNktGyWnzCGezJ2DX1qJWaUN8STzHfqt8QO63t+ RQDQlOH0Zx+wjYqx7NS+qX6Zl5GbMdqttFRbKpT6U8nzUvXKs9SV6U3TlHmH4KN3ipnfeTv0kzzjfMTd VMEXgp6Cy4fJkLtYBOlH50yM08tS0UuHt4+ThsJPGx EL4pSDE9jyoMkVdocchED49QcTYQt/VKafcCIfiLYD9wO43anvrtJWwbxBKVP0dhM9Q5z/MhFR2Rg66e cAxiswzWC+Exxo2WFQ+Ij+LUdu4sgjDnB/Qz0HKJSDcSBb/j6xmeH79xxCNO/mxqU4pIX8eYhi7IcO34 JUAG2uodcCqXCRPJX1eSQ+dXfus9+VhUW/Kx6O+cfC kFC5sW91dfrU8Lf86oN7bh0cvgp1X1jbdcaQgIKprvX/zaT4ybuXfqLnQGx74lnmISzj8+lpsNONJEXJ w+EWe7i4/s7fKipkyLJIC+aB7qH7uh4qQofvEQl2tNVWgeFcz3ab5HynPAQe+LKkg+BdaW80Hu7S4388 Lx1h7zNin7SNhuezubINOre+7Jx/IEaipmXE8+Fr2A jforvFVBmIdJIn4WwvKsLtgZetEebWZ3CN72VZXys7/3AoupZA7Yc+G6ZDFWpKayOrz6+/pE/MSefCxX pL9e6gKrXhiJsD3RiKLxnVBMd0MY2qycu95Ji1X0Q1387iWcZY+Cob5U003Ip7EfzTZx4G1d+VhkBB8+ weuvc4dfIU9E83p/vcPHkmfy++AtinHv0FMmrNO25H DKRnSNe9KCPCljL6R927L6OBA9BX1hrO42iIsN44OvWehwqfkM35n9Hq/vofDtvUd2TW0NBvuWBlvU+j VG8hjD3A+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/cp/QoAY7QYTuu26B/YH7uG0ncZJ4t4RhEmWhH9+I1wrW4kCaTPVNP7+C2dNeWSdvrkl [file] JruCA7pfTa8mVkBtHLKEG6Wch5WiSZIhPQHHDl0+DbR1APO9eKQeTgcuTFY1LemVIKJPS5Q= ID Date Data Source [id number] 09/25/2019 08:37:36 AM [place]T [place], [place] [address]Patient Name: ODIN Muñoz TEMORDOB: 1935Sex: MOrdering Provider: EVAN ESPOSITOAuthoriziyad Prov: EVAN ESPOSITOReferrsharonda Provider: Procedure Performed: XR CHEST PA AND LATERALExam Date: 09/25/2019 08:32MRN: [id number] Number: [id number] Class: InpatientAccount #: [id number] for Exam: ATX/effusionsTechnique: AP and lateral views [...] MAR WATTS On 09/25/2019 8:37 AMWorkstation ID: [id number] Name Value Range Interpretation Code Description Data Rema rce(s) Supporting Document(s) ID Date Data Source [id number] 09/25/2019 03:51:35 AM EDT [facility] Name Value Range Interpretation Code Description Data Rema rce(s) Supporting Document(s) SODIUM 139 mmol/L (136-145) [facility] POTASSIUM 3.8 mmol/L (3.6-5.2) [facility] CHLORIDE 100 mmol/L (100-108) [facility] CO2 35 mmol/L (22-31) H [facility] ANION GAP 4 mmol/L (7-16) L [facility] UREA NITROGEN 56 mg/dL (7-24) H [facility] CREATININE 2.02 mg/dL (0.80-1.30) H [facility] BUN/CREAT RATIO 27.7 RATIO (10.0-20.0) H [facility] GLUCOSE 123 mg/dL (70-99) H [facility] CALCIUM 8.6 mg/dL (8.4-10.2) [facility] GFR 32 ml/min/1.73m2 (>59) L [facility] GFR ( AMER) 39 ml/min/1.73m2 (>59) L [facility] GFR INTERPRETATION [facility] --NORMAL KIDNEY FUNCTION OR MILD DISEASE - GFR >OR= 60CHRONIC KIDNEY DISEASE - GFR 15 - 59RENAL FAILURE - GFR <15 Est. GFR calculation based on the MDRDstudy equation, which assumes a steadystate for creatinine. Est. GFR should notbe used for medication dosing. ID Date Data Source [id number] 09/25/2019 03:51:35 AM EDT [facility] Name Value Range Interpretation Code Description Data Rema e(s) Supporting Document(s) MAGNESIUM 2.4 mg/dL (1.7-2.4) [facility] ID Date Data Source [id number] 09/25/2019 03:26:09 AM EDT [facility] Name Value Range Interpretation Code Description Data Rema rce(s) Supporting Document(s) PT 16.5 s (9.2-11.9) H [facility] INR 1.61 [facility] SUGGESTED THERAPEUTIC RANGES USING INR F ORSTABILIZED ANTICOAGULATED PATIENTS:STANDARD DOSE THERAPY INR 2.0-3.0 DVT, PE, PREVENT DVT OR EMBOLISMHIGH DOSE THERAPY INR 2.5-3.5 PREVENT EMBOLISM FROM MECHANICAL HEART VALVE ID Date Data Source [id number] 09/25/2019 03:17:44 AM EDT [facility] Name Value Range Interpretation Code Description Data Rema rce(s) Supporting Document(s) WBC 6.1 10*3/uL (4.1-11.0) [facility] RBC 3.42 10*6/uL (4.60-6.10) L [facility] HGB 7.6 g/dL (13.5-18.0) L [facility] HCT 23.1 % (41.0-53.0) L [facility] MCV 67.6 fL (80.0-95.0) L [facility] MCH 22.3 pg (27.0-32.0) L [facility] MCHC 33.0 g/dL (32.0-36.0) [facility] RDW 16.0 % (10.5-14.5) H [facility] PLT 136 10*3/uL (150-450) L [facility] MPV 9.5 fL (7.1-10.7) [facility] ID Date Data Source [id number] 09/24/2019 09:21:38 PM EDT [facility] Name Value Range Interpretation Code Description Data Rema rce(s) Supporting Document(s) POTASSIUM 3.8 mmol/L (3.6-5.2) [facility] ID Date Data Source [id number] 09/24/2019 09:21:38 PM EDT [facility] Name Value Range Interpretation Code Description Data Rema rce(s) Supporting Document(s) MAGNESIUM 2.3 mg/dL (1.7-2.4) [facility] ID Date Data Source [id number] 09/24/2019 04:09:02 PM [facility]T [facility] INFORMATIONPatient MRN Name Date of Age Gend*PT [id number] Odin Jones 1935 83 years M IPPT Location Admission Date/Time Visit ID Attending [id number] 09/20/19 0954 --- Elizabeth De La Garza MD([id number]) EPI ID CSN Admitting Provider [id number] Elizabeth De La Garza MD([id number]) Attestation signed by Beck Martins DO at [...] rce(s) Supporting Document(s) ID Date Data Source [id number] 09/24/2019 02:16:04 PM EDT [address] [id number] Name: ODIN PLASCENCIARDOB: 1935Sex: MOrdering Provider: EVAN ESPOSITOAuthorizing Prov: EVAN Harper Provider: Procedure Performed: US THORACENTESIS LEFTExam Date: 09/24/2019 13:26MRN: [id number] Number: [id number] Class: InpatientAccount #: [id number] for Exam: Bilateral pleural effusionsT is an 83-year-old male with bilateral pleural [...] BECK MARTINS On 09/24/2019 2:16 PMWorkstation ID: [id number] Name Value Range Interpretation Code Description Data Rema rce(s) Supporting Document(s) ID Date Data Source [id number] 09/24/2019 11:52:37 AM EDT [facility] Name Value Range Interpretation Code Description Data Rema rce(s) Supporting Document(s) POC NOVA GLU 141 mg/dL (70-99) H [facility] ID Date Data Source [id number] 09/24/2019 01:40:21 PM EDT [facility] Name Value Range Interpretation Code Description Data Rema rce(s) Supporting Document(s) MAGNESIUM 2.3 mg/dL (1.7-2.4) [facility] ID Date Data Source [id number] 09/24/2019 01:40:21 PM EDT [facility] Name Value Range Interpretation Code Description Data Rema rce(s) Supporting Document(s) POTASSIUM 3.6 mmol/L (3.6-5.2) [facility] ID Date Data Source [id number] 09/24/2019 07:49:13 AM EDT [facility] Name Value Range Interpretation Code Description Data Rema rce(s) Supporting Document(s) POC NOVA GLU 117 mg/dL (70-99) H [facility] [place] [facility] ID Date Data Source [id number] 09/24/2019 07:41:15 AM EDT [address] [place] [id number] Name: ODIN PLASCENCIARDOB: 1935Sex: MOrdering Provider: JENNA Montelongo Prov: JENNA Rogers Provider: Procedure Performed: XR CHEST PORTABLEExam Date: 09/24/2019 07:16MRN: [id number] Number: [id number] Class: InpatientAccount #: [id number] for Exam: pleural effusionsTechnique: AP portable view [...] PEMA ARELLANO On 09/24/2019 7:41 AMWorkstation ID: [id number] Name Value Range Interpretation Code Description Data [facility] rce(s) Supporting Document(s) ID Date Data Source [id number] 09/24/2019 06:08:40 AM EDT [facility] Name Value Range Interpretation Code Description Data [facility] rce(s) Supporting Document(s) SODIUM 139 mmol/L (136-145) [facility] POTASSIUM 4.5 mmol/L (3.6-5.2) [facility] CHLORIDE 104 mmol/L (100-108) [facility] CO2 30 mmol/L (22-31) [facility] ANION GAP 5 mmol/L (7-16) L [facility] UREA NITROGEN 51 mg/dL (7-24) H [facility] CREATININE 1.74 mg/dL (0.80-1.30) H [facility] BUN/CREAT RATIO 29.3 RATIO (10.0-20.0) H [facility] GLUCOSE 125 mg/dL (70-99) H [facility] CALCIUM 9.0 mg/dL (8.4-10.2) [facility] GFR 38 ml/min/1.73m2 (>59) L [facility] GFR ( AMER) 46 ml/min/1.73m2 (>59) L [facility] GFR INTERPRETATION [facility] --NORMAL KIDNEY FUNCTION OR MILD DISEASE - GFR >OR= 60CHRONIC KIDNEY DISEASE - GFR 15 - 59RENAL FAILURE - GFR <15 Est. GFR calculation based on the MDRDstudy equation, which assumes a steadystate for creatinine. Est. GFR should notbe used for medication dosing. ID Date Data Source [id number] 09/24/2019 04:34:11 AM EDT [facility] Name Value Range Interpretation Code Description Data Rema rce(s) Supporting Document(s) MAGNESIUM 2.5 mg/dL (1.7-2.4) H [facility] ID Date Data Source [id number] 09/24/2019 04:34:11 AM EDT [facility] Name Value Range Interpretation Code Description Data Rema rce(s) Supporting Document(s) POTASSIUM 4.4 mmol/L (3.6-5.2) [facility] ID Date Data Source [id number] 09/24/2019 03:58:46 AM EDT [facility] Name Value Range Interpretation Code Description Data Rema rce(s) Supporting Document(s) PT 13.7 s (9.2-11.9) H [facility] INR 1.33 [facility] SUGGESTED THERAPEUTIC RANGES USING INR F ORSTABILIZED ANTICOAGULATED PATIENTS:STANDARD DOSE THERAPY INR 2.0-3.0 DVT, PE, PREVENT DVT OR EMBOLISMHIGH DOSE THERAPY INR 2.5-3.5 PREVENT EMBOLISM FROM MECHANICAL HEART VALVE ID Date Data Source [id number] 09/24/2019 12:00:23 AM EDT [facility] INFORMATIONPatient MRN Name Date of Age Gend*PT [id number] Odin Jones 1935 83 years M IPPT Location Admission Date/Time Visit ID Attending [id number] 09/20/19 0954 --- Elizabeth De La Garza MD([id number]) EPI ID CSN Admitting Provider [id number] Elizabeth De La Garza MD([id number]) [place] [address] OPERATIVE REPORT OPNAME: ODIN JONES LuanneProsperMaria Antonia#: [id number] #: [id number] ADMISSION DATE: 09/20/2019DOB: 1935 SEX: M PT TYPE: I SURACCT #: [id number] CARE PHYSICIAN: PCP PROVIDER REQUESTDATE OF OPERATION: 09/20/2019SURGEON:Elizabeth De La Garza MD.ELECTRONIC ENGRAVER:GARRET Wise.PREOPERATIVE DIAGNOSES:1. Coronary artery disease.2. Paroxysmal atrial [...] was achieved. The patient then had a [place]-Ganzcatheter, radial arterial line placed. He was then [...] stable uponfinishing surgery.JOHN PAUL Montes/QUINCY Job #: [id number] DOC #: [id number]: Lorenzo Khan MD Primary Care Physician Name Value Range Interpretation Code Description Data Rema rce(s) Supporting Document(s) ID Date Data Source [id number] 09/23/2019 08:42:09 PM EDT [facility] Name Value Range Interpretation Code Description Data Rema rce(s) Supporting Document(s) MAGNESIUM 2.5 mg/dL (1.7-2.4) H [facility] ID Date Data Source [id number] 09/23/2019 08:42:09 PM EDT [facility] Name Value Range Interpretation Code Description Data Rema rce(s) Supporting Document(s) POTASSIUM 3.9 mmol/L (3.6-5.2) [facility] ID Date Data Source [id number] 09/23/2019 06:59:57 PM EDT [facility] Name Value Range Interpretation Code Description Data Rema rce(s) Supporting Document(s) POC NOVA GLU 118 mg/dL (70-99) H [facility] ID Date Data Source [id number] 09/23/2019 01:38:11 PM EDT [facility] Name Value Range Interpretation Code Description Data Rema rce(s) Supporting Document(s) POC NOVA GLU 112 mg/dL (70-99) H [facility] ID Date Data Source [id number] 09/23/2019 01:43:18 PM EDT [facility] Name Value Range Interpretation Code Description Data Rema rce(s) Supporting Document(s) MAGNESIUM 2.4 mg/dL (1.7-2.4) [facility] ID Date Data Source [id number] 09/23/2019 01:43:18 PM EDT [facility] Name Value Range Interpretation Code Description Data Rema rce(s) Supporting Document(s) POTASSIUM 4.2 mmol/L (3.6-5.2) [facility] ID Date Data Source [id number] 09/23/2019 08:48:23 AM EDT [facility] Name Value Range Interpretation Code Description Data Rema rce(s) Supporting Document(s) POC NOVA GLU 124 mg/dL (70-99) H [facility] ID Date Data Source [id number] 09/23/2019 07:33:57 AM EDT [address] [id number] Name: ODIN PLASCENCIARDOB: 1935Sex: MOrdering Provider: JENNA Montelongo Prov: JENNA Rogers Provider: Procedure Performed: XR CHEST PORTABLEExam Date: 09/23/2019 07:22MRN: [id number] Number: [id number] Class: InpatientAccount #: [id number] for Exam: pleural effusionsTechnique: Single AP view obtained.Comparison: Multiple prior studies most recent 09/22/2019Findings: Previous midline sternotomy. Atrial closure device identified. Right-sided [place]-Stewart catheter tip in main pulmonary outflow tract. Tip of pacer lead overlies right ventricle, unchanged.Stable bilateral pleural effusions and bilateral parenchymal lung disease. No pneumothorax.IMPRESSION: No changes.Report electronically signed by: TACO FORD On 09/23/2019 7:33 AMWorkstation ID: [id number] Name Value Range Interpretation Code Description Data Rema rce(s) Supporting Document(s) ID Date Data Source [id number] 09/23/2019 03:57:18 AM EDT [facility] Name Value Range Interpretation Code Description Data Rema rce(s) Supporting Document(s) MAGNESIUM 2.7 mg/dL (1.7-2.4) H [facility] ID Date Data Source [id number] 09/23/2019 03:57:18 AM EDT [facility] Name Value Range Interpretation Code Description Data Rema rce(s) Supporting Document(s) SODIUM 141 mmol/L (136-145) [facility] POTASSIUM 4.7 mmol/L (3.6-5.2) [facility] CHLORIDE 108 mmol/L (100-108) [facility] CO2 31 mmol/L (22-31) [facility] ANION GAP 2 mmol/L (7-16) L [facility] UREA NITROGEN 43 mg/dL (7-24) H [facility] CREATININE 1.44 mg/dL (0.80-1.30) H [facility] BUN/CREAT RATIO 29.9 RATIO (10.0-20.0) H [facility] GLUCOSE 114 mg/dL (70-99) H [facility] CALCIUM 8.8 mg/dL (8.4-10.2) [facility] GFR 47 ml/min/1.73m2 (>59) L [facility] GFR ( AMER) 57 ml/min/1.73m2 (>59) L [facility] GFR INTERPRETATION [facility] --NORMAL KIDNEY FUNCTION OR MILD DISEASE - GFR >OR= 60CHRONIC KIDNEY DISEASE - GFR 15 - 59RENAL FAILURE - GFR <15 Est. GFR calculation based on the MDRDstudy equation, which assumes a steadystate for creatinine. Est. GFR should notbe used for medication dosing. ID Date Data Source [id number] 09/23/2019 03:52:17 AM EDT [facility] Name Value Range Interpretation Code Description Data Rema rce(s) Supporting Document(s) CALCIUM IONIZED 4.96 mg/dL (4.64-5.28) [facility] IONIZED CALCIUM NORMALIZED TO PH 7.40 AN D 37 DEGREES C. ID Date Data Source [id number] 09/23/2019 03:33:01 AM EDT [facility] Name Value Range Interpretation Code Description Data Rema rce(s) Supporting Document(s) WBC 8.4 10*3/uL (4.1-11.0) [facility] RBC 3.81 10*6/uL (4.60-6.10) L [facility] HGB 8.4 g/dL (13.5-18.0) L [facility] HCT 26.5 % (41.0-53.0) L [facility] MCV 69.5 fL (80.0-95.0) L [facility] MCH 22.0 pg (27.0-32.0) L [facility] MCHC 31.7 g/dL (32.0-36.0) L [facility] RDW 16.2 % (10.5-14.5) H [facility] PLT 98 10*3/uL (150-450) L [facility] MPV 9.3 fL (7.1-10.7) [facility] ID Date Data Source [id number] 09/23/2019 03:25:51 AM EDT [facility] Name Value Range Interpretation Code Description Data Rema rce(s) Supporting Document(s) PT 12.7 s (9.2-11.9) H [facility] INR 1.22 [facility] SUGGESTED THERAPEUTIC RANGES USING INR F ORSTABILIZED ANTICOAGULATED PATIENTS:STANDARD DOSE THERAPY INR 2.0-3.0 DVT, PE, PREVENT DVT OR EMBOLISMHIGH DOSE THERAPY INR 2.5-3.5 PREVENT EMBOLISM FROM MECHANICAL HEART VALVE ID Date Data Source [id number] 09/22/2019 08:02:05 PM EDT [address] [place], [place] [address]Msnfqes Name: ODIN TIANOB: 1935Sex: MOrdering Provider: JENNA Montelongo Prov: JENNA Rogers Provider: Procedure Performed: XR CHEST PORTABLEExam Date: 09/22/2019 16:26MRN: [id number] Number: [id number] Class: InpatientAccount #: [id number] for Exam: pleural effusionsTechnique: AP portable view [...] PEMA ARELLANO On 09/22/2019 8:02 PMWorkstation ID: [id number] - [id number] Name Value Range Interpretation Code Description Data Rema rce(s) Supporting Document(s) ID Date Data Source [id number] 09/22/2019 05:52:33 PM EDT [facility] Name Value Range Interpretation Code Description Data Rema rce(s) Supporting Document(s) POC NOVA GLU 130 mg/dL (70-99) H [facility] ID Date Data Source [id number] 09/22/2019 02:16:32 PM EDT [facility] Name Value Range Interpretation Code Description Data Rema rce(s) Supporting Document(s) MAGNESIUM 2.6 mg/dL (1.7-2.4) [facility] ID Date Data Source [id number] 09/22/2019 02:11:41 PM EDT [facility] Name Value Range Interpretation Code Description Data Rema rce(s) Supporting Document(s) POTASSIUM 4.6 mmol/L (3.6-5.2) [facility] ID Date Data Source [id number] 09/22/2019 01:14:29 PM EDT [facility] Name Value Range Interpretation Code Description Data Rema rce(s) Supporting Document(s) POC NOVA GLU 141 mg/dL (70-99) H [facility] [place] [facility] ID Date Data Source [id number] 09/22/2019 11:32:38 AM EDT [address] [address]Kexwikc Name: ODIN TIANOB: 1935Sex: MOrdering Provider: JENNA Montelongo Prov: JENNA Rogers Provider: Procedure Performed: US CHESTExam Date: 09/22/2019 10:42MRN: [id number] Number: [id number] Class: InpatientAccount #: [id number] for Exam: pleural effusionTechnique: Real time sonographic [...] TACO FORD On 09/22/2019 11:32 AMWorkstation ID: [id number] - [id number] Name Value Range Interpretation Code Description Data Rema rce(s) Supporting Document(s) ID Date Data Source [id number] 09/22/2019 11:27:41 AM EDT [facility] Name Value Range Interpretation Code Description Data Rema rce(s) Supporting Document(s) POC NOVA GLU 127 mg/dL (70-99) [facility] [place] [facility] ID Date Data Source [id number] 09/22/2019 07:59:45 AM EDT [address] [address]Ttytzvt Name: ODIN PLASCENCIARDOB: 1935Sex: MOrdering Provider: JENNA Montelongo Prov: JENNA Rogers Provider: Procedure Performed: XR CHEST PORTABLEExam Date: 09/22/2019 07:50MRN: [id number] Number: [id number] Class: InpatientAccount #: [id number] for Exam: chest tube removalTechnique: AP portable view obtained.Comparison: 09/20/2019Findings: Endotracheal tube, mediastinal drain and bilateral chest tubes have been removed. No pneumothorax identified. Tip [place] catheter in main pulmonary outflow tract. Tip [...] TACO FORD On 09/22/2019 7:59 AMWorkstation ID: [id number] - [id number] Name Value Range Interpretation Code Description Data Rema rce(s) Supporting Document(s) ID Date Data Source [id number] 09/22/2019 03:28:12 AM EDT [facility] Name Value Range Interpretation Code Description Data Rema rce(s) Supporting Document(s) MAGNESIUM 2.6 mg/dL (1.7-2.4) H [facility] ID Date Data Source [id number] 09/22/2019 03:28:12 AM EDT [facility] Name Value Range Interpretation Code Description Data Rema rce(s) Supporting Document(s) SODIUM 140 mmol/L (136-145) [facility] POTASSIUM 4.6 mmol/L (3.6-5.2) [facility] CHLORIDE 109 mmol/L (100-108) [facility] CO2 25 mmol/L (22-31) [facility] ANION GAP 6 mmol/L (7-16) L [facility] UREA NITROGEN 35 mg/dL (7-24) H [facility] CREATININE 1.32 mg/dL (0.80-1.30) H [facility] BUN/CREAT RATIO 26.5 RATIO (10.0-20.0) [facility] GLUCOSE 136 mg/dL (70-99) H [facility] CALCIUM 8.4 mg/dL (8.4-10.2) [facility] GFR 52 ml/min/1.73m2 (>59) L [facility] GFR ([facility]) >60 ml/min/1.73m2 (>59) [facility] GFR INTERPRETATION [facility] --NORMAL KIDNEY FUNCTION OR MILD DISEASE - GFR >OR= 60CHRONIC KIDNEY DISEASE - GFR 15 - 59RENAL FAILURE - GFR <15 Est. GFR calculation based on the MDRDstudy equation, which assumes a steadystate for creatinine. Est. GFR should notbe used for medication dosing. ID Date Data Source [id number] 09/22/2019 03:20:17 AM EDT [facility] Name Value Range Interpretation Code Description Data Rema rce(s) Supporting Document(s) CALCIUM IONIZED 5.08 mg/dL (4.64-5.28) [facility] IONIZED CALCIUM NORMALIZED TO PH 7.40 AN D 37 DEGREES C. ID Date Data Source [id number] 09/22/2019 02:35:09 AM EDT [facility] Name Value Range Interpretation Code Description Data Rema rce(s) Supporting Document(s) PT 12.3 s (9.2-11.9) H [facility] INR 1.18 [facility] SUGGESTED THERAPEUTIC RANGES USING INR F ORSTABILIZED ANTICOAGULATED PATIENTS:STANDARD DOSE THERAPY INR 2.0-3.0 DVT, PE, PREVENT DVT OR EMBOLISMHIGH DOSE THERAPY INR 2.5-3.5 PREVENT EMBOLISM FROM MECHANICAL HEART VALVE ID Date Data Source [id number] 09/22/2019 02:23:43 AM EDT [facility] Name Value Range Interpretation Code Description Data Rema rce(s) Supporting Document(s) WBC 9.9 10*3/uL (4.1-11.0) [facility] [place] RBC 3.54 10*6/uL (4.60-6.10) L [facility] HGB 7.7 g/dL (13.5-18.0) L [facility] HCT 24.6 % (41.0-53.0) L [facility] MCV 69.5 fL (80.0-95.0) L [facility] MCH 21.9 pg (27.0-32.0) L [facility] MCHC 31.5 g/dL (32.0-36.0) L [facility] RDW 16.2 % (10.5-14.5) H [facility] PLT 117 10*3/uL (150-450) L [facility] MPV 8.5 fL (7.1-10.7) [facility] ID Date Data Source [id number] 09/21/2019 05:40:02 PM EDT [facility] Name Value Range Interpretation Code Description Data Rema rce(s) Supporting Document(s) POC NOVA GLU 204 mg/dL (70-99) H [facility] [place] [facility] ID Date Data Source [id number] 09/21/2019 02:17:55 PM EDT [facility] Name Value Range Interpretation Code Description Data Rema rce(s) Supporting Document(s) POC NOVA GLU 216 mg/dL (70-99) [facility] [place] [facility] ID Date Data Source [id number] 09/21/2019 07:59:48 AM EDT [facility] Name Value Range Interpretation Code Description Data Rema rce(s) Supporting Document(s) [facility] JPQBUm3lYhVUXdYfn4CdLwKkMIQlJG9oelg8C2W4vKYzU7BsxULrs1vkV1SpY1NmUBDoJYUPIP4UpPWj jb2 [file] HERMES+fNe4/m9rliIFgJGXPtIeAHMOe4gZg7cf+CARLOS MANUEL+I [file] BRLaOTD0gdT//3f/yP//qyg9QXp5x5f//nn//2v/7Xf//plant facilities technician//vehicle inspector//zP/6y7v2jwk/5f/8RR1wi/V//ES ttpuQ3F73r/bMff+AKX660+ZD+5WfonZ/t+FPE3rlvVlkJ4rU9F+Nz2lNvdK1/8bAvk/bPznBVwcuisj Jt/6d5vMeO/NFvma44UbE32L2HxrReyhN9qtyyKqh3 nW8pBySrSuPFn9wVtz4c6QLB5p27zUwJ8mH51RSGuvW5/JsNL9WCYQ/rFsk2SxzEh8lrn/hs6Q7wKm4p mrZ4f115Xh+30Xaaynjdav0Jziz8IytyPnFPGo0bgJFP//gzgK6C8wp/7ptjpl86bTQZ//X3/tavv/e3 QP0764/9ncXI/uvvzP7+EKCu6D3md/2dGUfhZwb+KG Aj/evv3+OR6V/7xWF/lR2O80Voat5Qd047D96utnw4byRid9UGdWfp7y5V/b0szTH+sVd8aj4g6SmXPv Vv/QbcEBxnum6C7fYY+2aAkViqf957T8pp47WHs/s7o7+h59U5pqpM+fZ1eYv+3jTyteePaV//z867c+ js1b3764Ff8dpArC/6VgfXxk03O3DUdgqka/xVaXtz 22I+91qIeyI85N8kUst+FixsoS5WP91/R+edDRDK9dIxJe0NVyhlY63BP0nOrih5Bx9dn/q5XtbP+8+a 66O0JDd+o/xG/kb+9wAnsC6aQRjwc5U/sTd89iXqeL+uyFfkR3+EzrV7d6RAWUwc267lb5JE/an78vss Anabell/C3W8cJs5I8GL7w+vXi22dpbMnhIY69m+y99fxQ n+rE9a07Zrh0g+gW0z/cvP5+zhdAC4d25lW01/4gxJpH/5Scbx+fvfWDP4e7+Yhb/+3dqZvNjbN971US /99CagLF1LvY2M/q+/+1T6L//gkN3x7h/8nGM/g+eOBC2Oa/ycDz+w0dmnT9OD0N1/P06lSUEj8q8+LJ BfmKZM//YkGf4dkl/Ynkz/8s8Ni/YXq4A2UgpN/uvv L/HJrj7Djyc/mP9l73a8m4ht9Euav/g0ys1AoRCVwkYsySXBT6S/+ACq3fqAk7/3T4PEfQH++JBG/kT+ XN7ksg74128jVS479za3hnmgcgdi2ydz3CCc5P/Ztq64idDbhAToIxHCVYmrzIzAxTauS2Yc69Wbpbwz SlHSwI8lAH+gb8t0A3chFAbdH28nDvThqQGpABTTQA TSPZ/cYRwJ1B+JV7w4zHfoCAHz/Mox5miOLLyCnbbctuCIahxTBRmMuGNerzRRaM8QjJr/6PRbHzTtq/ IZjvUqxyHtK0/j381iDK2ct9v4mrhoWydN/FTKphd38mCHsN/ktyj3gNfx5HN1udToi/PDvnrpbmfIh/ SzJ+Uks2oZo/9FVH26q2Ibe8v/kT/Gst5yikU+Ib/f R3G+u6Elo6L+I/+g/Yt4FjnGkqJnqNE2yylQhfXi/Q563rCcZ9+ujSiLix0XxG3olg/IR3/nRv5+78c4 x3Hv4+x0f0edrBPe1gjpoqPNKX/IV5Tv/UIc37i/UiVEIPFPPwhgxU21bKMdeFKSN5m2qMb6IrRHKI/T lzy49dn82t2g0k1q5et19pF3nOSdBEohpg24wkJHK/ uq6qK/q+0NTfsqn+u0ryq9+rlO+1vNP4g40V+6q6EBEyoQ+Iec2DMeS7bc1EWBkrUGD+u3R8S1zfo/IH 9+HKu3rJp/rbmV2nmhqMNd8Cd+KgA81bgG5knv+877riDVD4/ghwU41zyl7K/m2cMglhw8Ru2cfT0fSz Svcq2yRaSvxO/4jBDQ0kiip+G19ulG5sa/kH86//R+ TL9luNVrP3Kh5nHq2xEjB+T9nvdRs1P+ut9ZBAF2+dHfqmtoH/187H8Ia69sv/p9f16yma1fk5aNMrB7 7+LWWzLL9vgaHBI+Il+a2p6pq3lHwzP41IufeqzPM3ZbdhoqOUj/v1jb9ohwsdwp5XtGKRVVrlMG7DSB aYsMSfE0iR/RPXkmg2rhcuC5rUqrtV/VeUi/jYagt4 unpAC7g8gZVvD3b12fKLJagpNEgLyLGoE4t04vJ7GKxuVKpGtN9lMWKtNbyQGG6tbYoIkwxYRXzPb21l rmbj/wteCHBxUNwIv14Vw0sXM3Hs6N2cCR//uvcExglFl2Un9XFRnH0G/+nETyu1dDaDJJk57dW2S41U nxm1l90n+fUmcjhqj30zj09U/ud3JkhTRzgnFBUL5I ZbJoMLgxB6C1znPZVV2z332LjX/Ysrn7Ih1TnIXLfuvb7/0ztH60TjXQmlBjWMKT4O1yCv8l5s2I+9Hf 6M5UyFm6OXMxAmKSaxSkXDh2XYCuyNeI5gRvf0q0DA69GBZvc2vTcrzgLNo9Mbmo1d1E55ru/w8NF2vZ mHh+DH1QiP6sRhJ3EoYwFarZU975xP/6MzYHhaT3hR 2HoD5cLw3PrC+6pUKFporxo1CYEoyM+j8ekss6rLbW8zE4fTwdH+et68iy5KaY01jjJjeT00fh2pwv3u od/J9COfap0clck5vqgdTVcmleK/JH5dwrRoxTkv+ua1rJ5wDywcdK6neA5rf5ubLeoSvCuwastCx63q Z1bjqiTvondaPfbCR6NG0x9D1jXexwaJgsewYvffRY ZJUvvcfKfQZpaVVAKgWtBalHOv586spaFYrkeFWDsuOVZejkqypbozTSz5JobwfMHzogjOa8zsFDRd0n 6W9utIoeToTQFNuFRAJlMYs1GB4iQILXTfwyyr6DBn8zMFCKmbP2pBwxpDALoSBWcMYRU40dZMxR9uth L7587smM2ckPrwI865NsvddR4/xcF07kI2WzYlfiOv kD+QP50d+3eoG9Dn/91D4Qr9yeS3r7BL2l8FdNPQ5ibUQxgmd4Cx/nJI1OFZqaNfFTYMzK0lBEVZLTE9 lXtl0RbXIgN7GbiPD6COHL3OrfWHbCZP8e8YzW8xy0e+B5Gl6VxLmh3Dr5lDOxVAeHfWuhcvU8mZ/nMQ 5b7FDp5cPbVE1hNNZzsvdBdihdKDFIW3PiwAIzhgSc KhTdj9jyLvhJxsRitxa9refU1K+3Ds/8Nlhp+8oAMX6cs4ToJ80ar7R49R0f/kH50+3b42Nq2hlb24Ek 9/u2N15bVbq77PyRi0tCWt6NvmiooOlqs9+6kO8oj/4q+qu9+52JXlU++tekAX0BkybDawp+e0jwBi3a X5E/aI2q6Go8keSMCFlK7ufaJ0/goU6nlvBB0yb5X/ 3C/P0u83E4pri/dI5vIOPuzqzdc3VQF042xVsS85q+HfX93xob5dYD+xrTlFihV19XMuC/VkiZa3c9gt GBeq/ZsNF0Z24Oz7QofjVaMm2Neeggj9mfF/F+nGlfVXo+x01BewVi1FDi7Wn30dW++tr4ggL5Ttga94 mQ3+jVLPTKM/6jbjj9o4nchE+cq7/mr0Yz1UySVt1R /n1A3qJ17kCwMDaghIxQbecch+RvlO/d/anJ3zoTkBf9ZwWls1oCJd+P7scCfIbJUxh/+ax9x5fIWS/y /ZXoVeUbyi/kL/parker+genK6LpPgHhVk7wvo9jWuebaItWZu+BXs2N/z2NajFszHo+QZbJ9jX3f9bElsxd e7KMtPo1F/cc3o10NzK60O6b0HwSQ27a4fsrS5T8oD ZtqvJjTrLzkyJ1tjY6XyuDrgDB0/21HRf1mqpN03le+J6F/NUY08Kdv+NFpbN5K5s+Y2wKFsz7gjLOvQ mtd50SP/sarAtf/nIeCFf+cjwIT/43py6M40u/1vt83rDXG9GVkGHMqdfp+Oy1Jo90G19b/oCylg49ZA F94hcKiMxp699sr/NG5p/Zl9gbZAg8zqbE7lRgvhTg P1jw1ZDlie3Xl/2CXsJp/7JMX1JTEwQe/9qM/en9cCi58irD/w6FL6ct3R3e1Y7bQzIG+CrMw/DTv+Mf 6yHwacZgCdc24gHpANi93Fx0TD924GpTUqaBpTMYpxG74M2xi71zp9/2Mrwi88rSIWxHv733kQw+4zod z0ohGtW5rKq+PQ/DvMrXcrjkF/MXPrq84pE78iU80n Jp7LsWm+53mtq50ybWrW6pNP8CQa6Z2sMvf/x5Z0sRmr9RkZgaBaU87stviA5+/GbzI9sa/LYG1acxkP BfkK/IV+S1c41w3avYU/ckcWF011j5QX2bt4V2AomjAcgvn3SRzHn329nT90q9V/xp522fCGlvJoe2vu stmGaB2Mx/b/gcQ5xV5tpSTMe01nYQd80u80JGdlV8 t3ThXl/uFsjE96FgmKghUxu+9bX+j5z9yMDWv/6lD/MoT3dZG4rAiG1Ie/tPH9Ujwmfovzf+qcNpHd8U qdDRhS98op9DwCrp3brQ5ytBpK507700str137y47aLBD4SkcSR/tCM/4Jyc/yvhHM+99P92CVFUN317 0N+7E9ndmtKO2TNUdyTL0W7c2PD8t4cUK6sEG+QTzv PlHBK+3fJcnIh9yK/hOf/K4wCl3Pvm1AGc6vrlNs/5l/SFs6XIbNSt6KO/6icnq4h18+/dCtl4cteNpb w8BWwD53seHtAA5V/nLGQb/C327vBoYZA8uBVHI87pyiUCx+Nz6tDjavRx0t7xurmsow3DnhD0kro4Ij 5Xls5X+b0T91bnj/JemAOpyRiaUIkOyea0kZ/5LKR9 RfTXtGNq9muji8mZ1bfpO1eEMqiXT/x9ZsO+znm57EvdX0E+ynFI+2pXuteTg/Ot2heUy9Wulqz2jm0v D6Vh65n9R+IOqKjk6fHL/fB/f+mJ/F6fw/u93LXdA+M66cz1llkvjtegSf3T+YP8/ri/yE4BBb2X0c6r fJXlRVBekY/+CvorA+Un2p/v/biknZGWtDPSkrafl6 C/PM9JetPfycg+HLrkIL+4x2sldLWhz88QxSmMIzctjrsNW+QPlEd/N41kdSJcbH/b/bWrlFMWFf6PBw dXN8rj/fL0cwtQ+zby7wfd4jxU8wIzWkkP04tL+zsGyk+Ji8qywC+ikou39W+wrzTefWs0/SpSs60VK3 90NZN2jXAtpvySprpcydY8yrW+LgNhhxIzw9XbjAe+ Sgkq7HspAlFfZJ/7W/JEuIzfW8zefno6Zx6Mhvz4W5pUvVH3dgi1PVcrsKJlpKNekvwDnN4D2YfNg8EP 9f7lAZ0S4hAroWz3m1AVnjA3Mbvf+XreL6sF35/XaneGlfBVll/q58fqzcHN+Qd11tsnEkR07C3/rYl8 FnxH475NTrokhVt/F/o2NqGLx6nIX9eXh/cBmMI5lA GWC/Y00KGNG7vZXO4DhsOx21nI0jD/btrr8FGju7rVutHTV/DnMig6cMjXmIQevgOwRWki4GHqxgVfK+ ZVHotd+XUwp//F0m1GsnaA7LTw+A07xviu7Fscqd0Eebk/GJq7qe6qsMQrbRpd48aSbbX70nQdhK+kFe KZxhnf88viEhBBmshWrs9+ftk2o09h15qx0770+mzK St+becky/dmpC2wCOa/Uj2m9v2oazm2OszQabxH7vyhp/b/ydvP561Si9ylqnV2/bPMtCXTowe7pMZ4xGk 0vFXD35Ti/aEr+I3ULFnoneTgmvzrf/jBuswEK7ddTC7eQ0A3colTp/qCnsygx6Y97+pa02nnNP7o+KM TNurG+JXyyQvDoy0jNmi9o7dumpS3duXurz/T++theresa +iG16dZ2UbtSekG0+c6scEOxntn6Ra6mXXwq+X0BChZwjz78C2ksVLUjO8vasXwvs7Gv6mB281IySmhM /s5UMb96SZUV+h/EJ+cfvvTzt4mwKdmF/Ow011j4+7j/mR1uUev2u3+exDka/Qt4GZ6OJUP07YdIzh75 rl+Jesus+Xonn2caO72a+OZfl0Qf56fBtYpavOUd65Gl HJ+9FxC8v663v8+lLTO6MpBEniK4kUuOCs1dGwAwpg2fxsSzCqIr51Ip5bqqSinGg/ixc2fSJW2xHZ8b kvU52iZhPY/zKiEcD/Foz2jtIeupHGuoJnYpR/Yls2xy9jZdM/Ewr14a+s9M7GAtFFnuWV02rM6mfTk2 dfMN+C3rsWIn39cmRI0nEka7tSRKvZ8dK6u/Km0XHv DV3jm++iyOr/jA3qGhLp4cB5rKlDqe8h4D+Cn5u9rYHEFWxgG4abj5iHZ+b4k67jsS+KN4c8VwmR6QtR XQ/bnvypgC9tyCgPql19Wlsj2ibHFr5tZJ0eRL79b16XCA5bxeJX/vq3x+0/sqn/96lix8k49NeyO5x7 Wf0lcH0xr6AUfF7+ayRx5Z7hZ6ooME1Z95eGoOT14w Zp5nB/KHxFZOT61ZB82xrBj+jxCh0P1km4D4op81B7niurx1aqm075maHoxHofK2zgiN6j1iv+/eDvpu c2WTb5H8hpjm/eau7rKrJN3NE31S5rxxNpI/gchC95ZyWZ/tzeBnId+K15wBI12h2YENz6J+4Rg59mC5 f/0+3n7hK6Jc53N1lp63i99g2ORsgnuR+T6LsxO+um r6a1BKVubX/B0xbcDlok+N/U9Xgls6q3j8i/zFC2zm37kjlUAmK/lv6H6Z1P/kT+A1rFYNU90IyP3iv/ 6Ko/xG+Y38g/z+fLQBX+20ryqN+2rfm5dX/FR2JwbTr59bQ025priAH/kpY2u+s8kq6X3NXcvp3l0gbq 53HU5d8CphtJ7rO92r2x1m2m64D1V8P/bVHri/o+G6 [file] ngEX6UnMeDFmAjaqP5i0/Eqs/Ipd/McFtEsA9o8/Andrés/Xc69xdUNhP6EvFs9+gvKva7IF+XoCO45lbBG 7JW5X7LFJdr2NfurZ9i/cujAEAkAcoRa5nJ+xiCX8C Qrl+F9PIsfQDVeU1/MLGSzzkT+gTUD/FAqqzU1j8i7cPEN1+BIQo/pWoc2TfQN5DnmhWmStGKiNZfw6B ENYRy6nFHRJw960z6t3JpYf5uf7PB+UYhNFXYYm/aTwzZSX4rGfigHcpHsTyeMvj5XUzBKmzgYGv6nY2 Ahd/Z4Byhx7A5m7wKXcpQudrG3bg0R+MwASUfoJdVO eKbYccf49uijFJvtvq/XS9jbZoPhAplI/GGDDOkxdNUbzat6DBxI6MU9v/Mj1lDmhW+RTtXuewP3cQoP 1XCLCqW9Pti4pQ0xh6T0bX2OxBNVmUE8+Mh2/Rt4hfh22/QgNSPwGr2+GKeBCd/Wd9ks2h0OfB5Wvyl7 /FJ830FC3T6hkE2WPgL/V5I4PXvPasuRv/L7VGJHE6 yEtC36oS+WptJcXUQRp5v3k2HARTVsLqG9L0yOEVWXgPLmaeqPlWK4RWXop7L8rjV7bE2C2rGEenuu8g i00pWJa+ql4fqNnEJlrSYMPPvwsdSkxQWE+nsBGgI2wK0ISTwaTclkI5hfVaHes3bZtNs3MrD2M3p3DL VZ+gkmSs+hjxZoZ3VyajiRWR9VaB0zvOp318/3TS2S LG4wqTvgenoSRpWpDVF438znNBd6fthA4XLh7L0I310NKhA8ja3VSJMLDJh8fXD295flAKPzBZNgwVGl TD5TxCqharntPPxiQHzXV4Y6AijHPyIujDJNKW14yKob+Opal+CZSCs4NjBSKVsxvMNBpYcMVDcl29TDE [file] QDGaNMnaPM4kzlMsUMBdMiytNh8ohLP6DRSdZfcNWl3Wh7JxesF1ebGxHjIjIuv8MDgcRCWEIq== ID Date Data Source [id number] 09/21/2019 05:30:29 AM EDT [facility] Name Value Range Interpretation Code Description Data Rema rce(s) Supporting Document(s) POC NOVA GLU 179 mg/dL (70-99) H [facility] [place] [facility] ID Date Data Source [id number] 09/21/2019 03:43:19 AM EDT [facility] Name Value Range Interpretation Code Description Data Rema rce(s) Supporting Document(s) POC NOVA GLU 175 mg/dL (70-99) H [facility] [place] [facility] ID Date Data Source [id number] 09/21/2019 04:52:14 AM EDT [facility] Name Value Range Interpretation Code Description Data Rema rce(s) Supporting Document(s) MAGNESIUM 2.5 mg/dL (1.7-2.4) H [facility] ID Date Data Source [id number] 09/21/2019 04:52:14 AM EDT [facility] Name Value Range Interpretation Code Description Data Rema rce(s) Supporting Document(s) SODIUM 142 mmol/L (136-145) [facility] POTASSIUM 4.3 mmol/L (3.6-5.2) [facility] CHLORIDE 111 mmol/L (100-108) H [facility] CO2 23 mmol/L (22-31) [facility] ANION GAP 8 mmol/L (7-16) [facility] UREA NITROGEN 26 mg/dL (7-24) H [facility] CREATININE 1.04 mg/dL (0.80-1.30) [facility] BUN/CREAT RATIO 25.0 RATIO (10.0-20.0) [facility] GLUCOSE 170 mg/dL (70-99) H [facility] CALCIUM 8.1 mg/dL (8.4-10.2) L [facility] GFR >60 ml/min/1.73m2 (>59) [facility] GFR ( AMER) >60 ml/min/1.73m2 (>59) [facility] GFR INTERPRETATION [facility] --NORMAL KIDNEY FUNCTION OR MILD DISEASE - GFR >OR= 60CHRONIC KIDNEY DISEASE - GFR 15 - 59RENAL FAILURE - GFR <15 Est. GFR calculation based on the MDRDstudy equation, which assumes a steadystate for creatinine. Est. GFR should notbe used for medication dosing. ID Date Data Source [id number] 09/21/2019 04:51:43 AM EDT [facility] Name Value Range Interpretation Code Description Data Rema rce(s) Supporting Document(s) CALCIUM IONIZED 4.92 mg/dL (4.64-5.28) [facility] IONIZED CALCIUM NORMALIZED TO PH 7.40 AN D 37 DEGREES C. ID Date Data Source [id number] 09/21/2019 04:31:16 AM EDT [facility] Name Value Range Interpretation Code Description Data Rema rce(s) Supporting Document(s) PT 12.5 s (9.2-11.9) H [facility] INR 1.20 [facility] SUGGESTED THERAPEUTIC RANGES USING INR F ORSTABILIZED ANTICOAGULATED PATIENTS:STANDARD DOSE THERAPY INR 2.0-3.0 DVT, PE, PREVENT DVT OR EMBOLISMHIGH DOSE THERAPY INR 2.5-3.5 PREVENT EMBOLISM FROM MECHANICAL HEART VALVE ID Date Data Source [id number] 09/21/2019 04:24:06 AM EDT [facility] Name Value Range Interpretation Code Description Data Rema rce(s) Supporting Document(s) WBC 10.4 10*3/uL (4.1-11.0) [facility] RBC 3.84 10*6/uL (4.60-6.10) L [facility] HGB 8.6 g/dL (13.5-18.0) L [facility] HCT 26.3 % (41.0-53.0) L [facility] MCV 68.5 fL (80.0-95.0) L [facility] MCH 22.3 pg (27.0-32.0) L [facility] MCHC 32.6 g/dL (32.0-36.0) [facility] RDW 16.2 % (10.5-14.5) H [facility] PLT 133 10*3/uL (150-450) L [facility] MPV 8.9 fL (7.1-10.7) [facility] ID Date Data Source [id number] 09/21/2019 02:11:01 AM EDT [facility] Name Value Range Interpretation Code Description Data Rema rce(s) Supporting Document(s) POC NOVA GLU 167 mg/dL (70-99) H [facility] [place] [facility] ID Date Data Source [id number] 09/21/2019 01:25:56 AM EDT [facility] Name Value Range Interpretation Code Description Data Rema rce(s) Supporting Document(s) POC TEMPERATURE [facility] POC SOURCE [facility] PUNCTURE SITE [facility] O2 THERAPY [facility] POC FIO2 40 [facility] CLEMENTINA TEST [facility] MODE [facility] PEEP/MAP 6 CM H2O [facility] PRESSURE SUPPORT 10 CM H2O [facility] SP RATE 14 BMP [facility] POC PH 7.36 pH (7.35-7.45) [facility] POC PCO2 39.3 MMHG (32.0-48.0) [facility] POC PO2 88 MMHG (83-108) [facility] POC SAT O2 96 % (95-99) [facility] POC BASE DEFICIT 3 MMOL/L (0-2) H [facility] POC HCO3 22.0 MMOL/L (21.0-29.0) [facility] POC TOTAL CO2 23 MMOL/L (23.0-32.0) [facility] ID Date Data Source [id number] 09/21/2019 01:09:39 AM EDT [facility] Name Value Range Interpretation Code Description Data Rema rce(s) Supporting Document(s) APTT 42.3 s (22.0-34.3) H [facility] ID Date Data Source [id number] 09/21/2019 01:09:39 AM EDT [facility] Name Value Range Interpretation Code Description Data Rema rce(s) Supporting Document(s) PT 12.6 s (9.2-11.9) H [facility] INR 1.21 [facility] SUGGESTED THERAPEUTIC RANGES USING INR F ORSTABILIZED ANTICOAGULATED PATIENTS:STANDARD DOSE THERAPY INR 2.0-3.0 DVT, PE, PREVENT DVT OR EMBOLISMHIGH DOSE THERAPY INR 2.5-3.5 PREVENT EMBOLISM FROM MECHANICAL HEART VALVE ID Date Data Source [id number] 09/20/2019 11:58:29 PM EDT [facility] Name Value Range Interpretation Code Description Data Rema rce(s) Supporting Document(s) POC NOVA GLU 159 mg/dL (70-99) H [facility] [place] [facility] ID Date Data Source [id number] 09/21/2019 12:44:34 AM EDT [facility] Name Value Range Interpretation Code Description Data Rema rce(s) Supporting Document(s) POTASSIUM 4.6 mmol/L (3.6-5.2) [facility] ID Date Data Source [id number] 09/21/2019 12:20:07 AM EDT [facility] Name Value Range Interpretation Code Description Data Rema rce(s) Supporting Document(s) WBC 10.3 10*3/uL (4.1-11.0) [facility] RBC 3.90 10*6/uL (4.60-6.10) L [facility] HGB 8.7 g/dL (13.5-18.0) L [facility] HCT 26.6 % (41.0-53.0) L [facility] MCV 68.1 fL (80.0-95.0) L [facility] MCH 22.2 pg (27.0-32.0) L [facility] MCHC 32.6 g/dL (32.0-36.0) [facility] RDW 16.1 % (10.5-14.5) H [facility] PLT 130 10*3/uL (150-450) L [facility] MPV 8.2 fL (7.1-10.7) [facility] ID Date Data Source [id number] 09/20/2019 10:09:28 PM EDT [facility] Name Value Range Interpretation Code Description Data Rema rce(s) Supporting Document(s) POC NOVA GLU 151 mg/dL (70-99) H [facility] [place] [facility] ID Date Data Source [id number] 09/21/2019 12:26:52 PM EDT [facility] Name Value Range Interpretation Code Description Data Rema rce(s) Supporting Document(s) POC TEMPERATURE [facility] POC SOURCE [facility] PUNCTURE SITE [facility] O2 THERAPY [facility] POC FIO2 50 [facility] CLEMENTINA TEST [facility] MODE [facility] TIDAL VOLUME 500 mL [facility] RATE 20 BPM [facility] PEEP/MAP 10 CM H2O [facility] POC PH 7.30 pH (7.35-7.45) L [facility] POC PCO2 44.6 MMHG (32.0-48.0) [facility] POC PO2 102 MMHG (83-108) [facility] POC SAT O2 97 % (95-99) [facility] POC BASE DEFICIT 4 MMOL/L (0-2) H [facility] POC HCO3 22.1 MMOL/L (21.0-29.0) [facility] POC TOTAL CO2 23 MMOL/L (23.0-32.0) [facility] ID Date Data Source [id number] 09/20/2019 09:18:56 PM EDT [facility] Name Value Range Interpretation Code Description Data Rema rce(s) Supporting Document(s) POC NOVA GLU 146 mg/dL (70-99) H [facility] [place] [facility] ID Date Data Source [id number] 09/20/2019 08:24:26 PM EDT [facility] Name Value Range Interpretation Code Description Data Rema rce(s) Supporting Document(s) POC TEMPERATURE [facility] 37.0C POC SOURCE [facility] PUNCTURE SITE [facility] O2 THERAPY [facility] POC FIO2 80 [facility] CLEMENTINA TEST [facility] MODE [facility] TIDAL VOLUME 500 mL [facility] RATE 18 BPM [facility] PEEP/MAP 10 CM H2O [facility] PRESSURE SUPPORT 12 CM H2O [facility] SP RATE 0 BMP [facility] POC PH 7.28 pH (7.35-7.45) L [facility] POC PCO2 48.3 MMHG (32.0-48.0) H [facility] POC PO2 149 MMHG (83-108) H [facility] POC SAT O2 99 % (95-99) [facility] POC BASE DEFICIT 4 MMOL/L (0-2) H [facility] POC HCO3 22.9 MMOL/L (21.0-29.0) [facility] POC TOTAL CO2 24 MMOL/L (23.0-32.0) [facility] ID Date Data Source [id number] 09/20/2019 11:12:34 PM EDT [facility] Name Value Range Interpretation Code Description Data Rema rce(s) Supporting Document(s) POC NOVA GLU 134 mg/dL (70-99) H [facility] ID Date Data Source [id number] 09/20/2019 08:45:15 PM EDT [facility] Name Value Range Interpretation Code Description Data Rema rce(s) Supporting Document(s) SODIUM 141 mmol/L (136-145) [facility] POTASSIUM 4.2 mmol/L (3.6-5.2) [facility] CHLORIDE 112 mmol/L (100-108) H [facility] CO2 24 mmol/L (22-31) [facility] ANION GAP 5 mmol/L (7-16) L [facility] UREA NITROGEN 23 mg/dL (7-24) [facility] CREATININE 0.97 mg/dL (0.80-1.30) [facility] BUN/CREAT RATIO 23.7 RATIO (10.0-20.0) H [facility] GLUCOSE 138 mg/dL (70-99) [facility] CALCIUM 8.2 mg/dL (8.4-10.2) [facility] GFR >60 ml/min/1.73m2 (>59) [facility] GFR ( AMER) >60 ml/min/1.73m2 (>59) [facility] GFR INTERPRETATION [facility] --NORMAL KIDNEY FUNCTION OR MILD DISEASE - GFR >OR= 60CHRONIC KIDNEY DISEASE - GFR 15 - 59RENAL FAILURE - GFR <15 Est. GFR calculation based on the MDRDstudy equation, which assumes a steadystate for creatinine. Est. GFR should notbe used for medication dosing. ID Date Data Source [id number] 09/20/2019 08:45:15 PM EDT [facility] Name Value Range Interpretation Code Description Data Rema rce(s) Supporting Document(s) MAGNESIUM 2.5 mg/dL (1.7-2.4) [facility] ID Date Data Source [id number] 09/20/2019 08:35:08 PM EDT [facility] Name Value Range Interpretation Code Description Data Rema rce(s) Supporting Document(s) CALCIUM IONIZED 5.00 mg/dL (4.64-5.28) [facility] IONIZED CALCIUM NORMALIZED TO PH 7.40 AN D 37 DEGREES C. ID Date Data Source [id number] 09/20/2019 08:23:56 PM EDT [facility] Name Value Range Interpretation Code Description Data Rema rce(s) Supporting Document(s) WBC 7.2 10*3/uL (4.1-11.0) [facility] RBC 3.92 10*6/uL (4.60-6.10) [facility] HGB 8.8 g/dL (13.5-18.0) [facility] HCT 26.9 % (41.0-53.0) [facility] MCV 68.6 fL (80.0-95.0) [facility] MCH 22.3 pg (27.0-32.0) [facility] MCHC 32.6 g/dL (32.0-36.0) [facility] RDW 16.1 % (10.5-14.5) [facility] PLT 114 10*3/uL (150-450) [facility] MPV 8.3 fL (7.1-10.7) [facility] ID Date Data Source [id number] 09/20/2019 07:24:07 PM EDT [address] [id number] Name: ODIN PLASCENCIARDOB: 1935Sex: MOrdering Provider: ELIZABETH DE LA GARZAAuthorizing Prov: ELIZABETH DE LA GARZAReferring Provider: Procedure Performed: XR CHEST FOR SPONGE/NEEDLE/INSTRUMENT COUNTExam Date: 09/20/2019 19:17MRN: [id number] Number: [id number] Class: InpatientAccount #: [id number] [id number] Exam: missing debakey forcepsTechnique: AP portable view obtained.Comparison: NoneFindings: No forceps are seen in the cuplb-cj-ngqc. [place] catheter tip is in the right ventricular outflow tract. Bilateral chest tubes are seen. Technique is not optimal for exclusion of pneumothorax. Multilead pacer is seen.IMPRESSION: No forceps are seen in the sdlqt-gn-tufs.Findings/impression were communicated by departmental critical results protocol.Report electronically signed by: JOSEPH COFFEY On 09/20/2019 7:24 PMWorkstation ID: [id number] Name Value Range Interpretation Code Description Data Rema rce(s) Supporting Document(s) ID Date Data Source [id number] 09/20/2019 06:19:09 PM EDT [facility] INFORMATIONPatient MRN Name Date of Age Gend*PT [id number] Odin Jones 1935 83 years M SDAPT Location Admission Date/Time Visit ID Attending Provider --- --- --- --- EPI ID [facility] Admitting Provider [id number] ---[place] ExamPerformed by: Kris Fulton MDInformation: Diagnostic [...] rce(s) Supporting Document(s) ID Date Data Source [id number] 09/20/2019 06:20:37 PM EDT [facility] Name Value Range Interpretation Code Description Data Rema rce(s) Supporting Document(s) POC SOURCE [facility] POC TEMPERATURE [facility] P[facility] FIO2 [facility] POC PH 7.36 pH (7.35-7.45) [facility] POC PCO2 37.7 MMHG (32.0-48.0) [facility] P[facility] PO2 86 MMHG (83-108) [facility] POC SAT O2 96 % (95-99) [facility] POC BASE DEFICIT 4 MMOL/L (0-2) [facility] POC HCO3 21.2 MMOL/L (21.0-29.0) [facility] POC TOTAL CO2 22 MMOL/L (23.0-32.0) [facility] POC HCT 26 % (41.0-53.0) [facility] P[facility] SODIUM 142 MMOL/L (136-145) [facility] P[facility] POTASSIUM 4.5 MMOL/L (3.6-5.2) [facility] POC IONIZED CALCIUM 6.0 MG/DL (4.6-5.3) [facility] POC GLU 146 MG/DL (70-99) [facility] ID Date Data Source [id number] 09/20/2019 06:19:27 PM EDT [facility] Name Value Range Interpretation Code Description Data Rema rce(s) Supporting Document(s) POC ACT 109 s (80-140) [facility] ID Date Data Source [id number] 09/20/2019 06:53:42 PM EDT [facility] Name Value Range Interpretation Code Description Data Rema rce(s) Supporting Document(s) APTT 24.3 s (22.0-34.3) [facility] ID Date Data Source [id number] 09/20/2019 06:53:42 PM EDT [facility] Name Value Range Interpretation Code Description Data Rema rce(s) Supporting Document(s) PT 16.9 s (9.2-11.9) [facility] INR 1.66 [facility] SUGGESTED THERAPEUTIC RANGES USING INR F ORSTABILIZED ANTICOAGULATED PATIENTS:STANDARD DOSE THERAPY INR 2.0-3.0 DVT, PE, PREVENT DVT OR EMBOLISMHIGH DOSE THERAPY INR 2.5-3.5 PREVENT EMBOLISM FROM MECHANICAL HEART VALVE ID Date Data Source [id number] 09/20/2019 05:29:20 PM EDT [facility] Name Value Range Interpretation Code Description Data Rema rce(s) Supporting Document(s) POC SOURCE [facility] POC TEMPERATURE [facility] P[facility] FIO2 [facility] P[facility] PH 7.45 pH (7.35-7.45) [facility] POC PCO2 34.2 MMHG (32.0-48.0) [facility] P[facility] PO2 385 MMHG (83-108) [facility] POC SAT O2 100 % (95-99) [facility] POC BASE EXCESS 0 MMOL/L (0-3) [facility] POC HCO3 23.5 MMOL/L (21.0-29.0) [facility] POC TOTAL CO2 25 MMOL/L (23.0-32.0) [facility] POC HCT 26 % (41.0-53.0) [facility] POC SODIUM 137 MMOL/L (136-145) [facility] P[facility] POTASSIUM 5.7 MMOL/L (3.6-5.2) [facility] POC IONIZED CALCIUM 4.4 MG/DL (4.6-5.3) [facility] POC GLU 170 MG/DL (70-99) [facility] ID Date Data Source [id number] 09/20/2019 05:34:23 PM EDT [facility] Name Value Range Interpretation Code Description Data Rema rce(s) Supporting Document(s) POC ACT 444 s (80-140) [facility] ID Date Data Source [id number] 09/20/2019 04:57:57 PM EDT [facility] Name Value Range Interpretation Code Description Data Rema rce(s) Supporting Document(s) POC SOURCE [facility] POC TEMPERATURE [facility] 37.0C POC FIO2 70 [facility] POC VENOUS PH 7.43 pH (7.33-7.43) [facility] POC VENOUS PCO2 34.1 MM HG (38.0-50.0) [facility] POC VENOUS PO2 50 MM HG (30-50) [facility] POC VENOUS SO2 86 % (60-85) [facility] POC VENOUS BASE DEFICIT 1 MMOL/L (0-2) [facility] POC VENOUS HCO3 22.7 MMOL/L (23.0-27.0) [facility] POC VENOUS TOTAL CO2 24 MMOL/L (24-28) [facility] POC HCT 27 % (41.0-53.0) [facility] POC SODIUM 138 MMOL/L (136-145) [facility] P[facility] POTASSIUM 5.4 MMOL/L (3.6-5.2) [facility] POC IONIZED CALCIUM 4.7 MG/DL (4.6-5.3) [facility] POC GLU 178 MG/DL (70-99) [facility] ID Date Data Source [id number] 09/20/2019 05:09:01 PM EDT [facility] Name Value Range Interpretation Code Description Data Rema rce(s) Supporting Document(s) POC ACT 555 s (80-140) [facility] ID Date Data Source [id number] 09/20/2019 04:29:26 PM EDT [facility] Name Value Range Interpretation Code Description Data Rema rce(s) Supporting Document(s) POC SOURCE [facility] POC TEMPERATURE [facility] 37.0C POC FIO2 60 [facility] POC VENOUS PH 7.40 pH (7.33-7.43) [facility] POC VENOUS PCO2 38.7 MM HG (38.0-50.0) [facility] POC VENOUS PO2 54 MM HG (30-50) [facility] POC VENOUS SO2 88 % (60-85) [facility] POC VENOUS BASE DEFICIT 1 MMOL/L (0-2) [facility] POC VENOUS HCO3 24.2 MMOL/L (23.0-27.0) [facility] POC VENOUS TOTAL CO2 25 MMOL/L (24-28) [facility] POC HCT 27 % (41.0-53.0) [facility] POC SODIUM 139 MMOL/L (136-145) [facility] POC POTASSIUM 5.0 MMOL/L (3.6-5.2) [facility] POC IONIZED CALCIUM 4.8 MG/DL (4.6-5.3) [facility] POC GLU 169 MG/DL (70-99) [facility] ID Date Data Source [id number] 09/20/2019 04:32:18 PM EDT [facility] Name Value Range Interpretation Code Description Data Rema rce(s) Supporting Document(s) POC ACT 637 s (80-140) [facility] ID Date Data Source [id number] 09/20/2019 03:53:49 PM EDT [facility] Name Value Range Interpretation Code Description Data Rema rce(s) Supporting Document(s) POC SOURCE [facility] POC TEMPERATURE [facility] 37.0C POC FIO2 60 [facility] POC VENOUS PH 7.38 pH (7.33-7.43) [facility] POC VENOUS PCO2 40.6 MM HG (38.0-50.0) [facility] POC VENOUS PO2 51 MM HG (30-50) [facility] POC VENOUS SO2 85 % (60-85) [facility] POC VENOUS BASE DEFICIT 1 MMOL/L (0-2) [facility] POC VENOUS HCO3 24.2 MMOL/L (23.0-27.0) [facility] POC VENOUS TOTAL CO2 25 MMOL/L (24-28) [facility] POC HCT 28 % (41.0-53.0) [facility] POC SODIUM 140 MMOL/L (136-145) [facility] POC POTASSIUM 4.9 MMOL/L (3.6-5.2) [facility] POC IONIZED CALCIUM 4.8 MG/DL (4.6-5.3) [facility] POC GLU 156 MG/DL (70-99) [facility] ID Date Data Source [id number] 09/20/2019 03:58:31 PM EDT [facility] Name Value Range Interpretation Code Description Data Rema rce(s) Supporting Document(s) POC ACT 455 s (80-140) [facility] ID Date Data Source [id number] 09/20/2019 03:25:42 PM EDT [facility] Name Value Range Interpretation Code Description Data Rema rce(s) Supporting Document(s) POC SOURCE [facility] POC TEMPERATURE [facility] 37.0C POC FIO2 80 [facility] POC PH 7.40 pH (7.35-7.45) [facility] POC PCO2 41.1 MMHG (32.0-48.0) [facility] POC PO2 446 MMHG (83-108) [facility] P[facility] SAT O2 100 % (95-99) [facility] POC BASE EXCESS 0 MMOL/L (0-3) [facility] POC HCO3 25.3 MMOL/L (21.0-29.0) [facility] POC TOTAL CO2 27 MMOL/L (23.0-32.0) [facility] POC HCT 30 % (41.0-53.0) [facility] POC SODIUM 138 MMOL/L (136-145) [facility] POC POTASSIUM 4.2 MMOL/L (3.6-5.2) [facility] POC IONIZED CALCIUM 4.7 MG/DL (4.6-5.3) [facility] POC GLU 146 MG/DL (70-99) [facility] ID Date Data Source [id number] 09/20/2019 03:26:52 PM EDT [facility] Name Value Range Interpretation Code Description Data Rema rce(s) Supporting Document(s) POC ACT 582 s (80-140) [facility] ID Date Data Source [id number] 09/20/2019 03:25:37 PM EDT [facility] Name Value Range Interpretation Code Description Data Rema rce(s) Supporting Document(s) POC SOURCE [facility] POC TEMPERATURE [facility] 37.0C POC FIO2 80 [facility] POC VENOUS PH 7.35 pH (7.33-7.43) [facility] POC VENOUS PCO2 45.0 MM HG (38.0-50.0) [facility] POC VENOUS PO2 64 MM HG (30-50) [facility] POC VENOUS SO2 91 % (60-85) [facility] POC VENOUS BASE DEFICIT 1 MMOL/L (0-2) [facility] POC VENOUS HCO3 24.6 MMOL/L (23.0-27.0) [facility] POC VENOUS TOTAL CO2 26 MMOL/L (24-28) [facility] POC HCT 29 % (41.0-53.0) [facility] POC SODIUM 139 MMOL/L (136-145) [facility] POC POTASSIUM 4.2 MMOL/L (3.6-5.2) [facility] POC IONIZED CALCIUM 4.8 MG/DL (4.6-5.3) [facility] POC GLU 144 MG/DL (70-99) [facility] ID Date Data Source [id number] 09/20/2019 03:08:32 PM EDT [facility] INFORMATIONPatient MRN Name Date of Age Gend*PT [id number] Odin Jones 1935 83 years M SDAPT Location Admission Date/Time Visit ID Attending Provider --- --- --- --- EPI ID CSN Admitting Provider [id number] ---Central Line InsertionPatient location during procedure: ORIndications [...] changes to vital signs and catheter flushed [id number] NS Name Value Range Interpretation Code Description Data Rema rce(s) Supporting Document(s) ID Date Data Source [id number] 09/20/2019 02:54:35 PM EDT [facility] Name Value Range Interpretation Code Description Data Rema rce(s) Supporting Document(s) POC SOURCE [facility] POC TEMPERATURE [facility] 37.0C POC FIO2 10 [facility] POC PH 7.34 pH (7.35-7.45) [facility] POC PCO2 48.9 MMHG (32.0-48.0) [facility] POC PO2 266 MMHG (83-108) [facility] POC SAT O2 100 % (95-99) [facility] POC BASE EXCESS 0 MMOL/L (0-3) [facility] POC HCO3 26.6 MMOL/L (21.0-29.0) [facility] POC TOTAL CO2 28 MMOL/L (23.0-32.0) [facility] POC HCT 33 % (41.0-53.0) [facility] POC SODIUM 141 MMOL/L (136-145) [facility] POC POTASSIUM 4.0 MMOL/L (3.6-5.2) [facility] POC IONIZED CALCIUM 5.2 MG/DL (4.6-5.3) [facility] POC GLU 120 MG/DL (70-99) [facility] ID Date Data Source [id number] 09/20/2019 03:00:53 PM EDT [facility] Name Value Range Interpretation Code Description Data Rema rce(s) Supporting Document(s) POC ACT 588 s (80-140) [facility] ID Date Data Source [id number] 09/20/2019 02:33:00 PM EDT [facility] INFORMATIONPatient MRN Name Date of Age Gend*PT [id number] Odin Jones 1935 83 years M SDAPT Location Admission Date/Time Visit ID Attending Provider --- --- --- --- EPI ID CSN Admitting Provider [id number] ---Introducer AdditionsPatient location during procedure: ORIndications for [...] changes to vital signs and catheter flushed [id number] NS Name Value Range Interpretation Code Description Data Rema rce(s) Supporting Document(s) ID Date Data Source [id number] 09/20/2019 02:31:48 PM EDT [facility] NT INFORMATIONPatient MRN Name Date of Age Gend*PT [id number] Odin Jones 1935 83 years M SDAPT Location Admission Date/Time Visit ID Attending Provider --- --- --- --- EPI ID CSN Admitting Provider [id number] ---Arterial Line PlacementPatient location during procedure: ORIndications for arterial line: multiple ABGs and hemodynamic monitoringStaffingPerformed by: Kris Fulton, MDApproved by: Kris Fulton, [...] rce(s) Supporting Document(s) ID Date Data Source [id number] 09/20/2019 02:31:05 PM EDT [facility] NT INFORMATIONPatient MRN Name Date of Age Gend*PT [id number] Odin Jonse 1935 83 years M SDAPT Location Admission Date/Time Visit ID Attending Provider --- --- --- --- EPI ID CSN Admitting Provider [id number] ---AirwayPatient location during procedure: ORUrgency: electiveDifficult airway: [...] cmPlacement verified by: chest auscultation and + [id number]: equal breath sounds bilateralGrade view: grade I - full view of glottis Name Value Range Interpretation Code Description Data Rema rce(s) Supporting Document(s) ID Date Data Source [id number] 09/20/2019 01:40:02 PM EDT [facility] Name Value Range Interpretation Code Description Data Rema rce(s) Supporting Document(s) POC SOURCE [facility] POC TEMPERATURE [facility] 37.0C POC FIO2 100 [facility] POC PH 7.44 pH (7.35-7.45) [facility] POC PCO2 39.6 MMHG (32.0-48.0) [facility] POC PO2 557 MMHG (83-108) [facility] POC SAT O2 100 % (95-99) [facility] POC BASE EXCESS 3 MMOL/L (0-3) [facility] POC HCO3 26.9 MMOL/L (21.0-29.0) [facility] POC TOTAL CO2 28 MMOL/L (23.0-32.0) [facility] POC HCT 33 % (41.0-53.0) L [facility] POC SODIUM 141 MMOL/L (136-145) [facility] POC POTASSIUM 3.9 MMOL/L (3.6-5.2) [facility] POC IONIZED CALCIUM 4.8 MG/DL (4.6-5.3) [facility] POC GLU 104 MG/DL (70-99) [facility] ID Date Data Source [id number] 09/20/2019 01:39:22 PM EDT [facility] Name Value Range Interpretation Code Description Data Rema rce(s) Supporting Document(s) POC ACT 125 s (80-140) [facility] ID Date Data Source [id number] 09/20/2019 11:58:00 AM EDT [facility] Name Value Range Interpretation Code Description Data Rema rce(s) Supporting Document(s) POC NOVA GLU 116 mg/dL (70-99) [facility] [place] [facility] ID Date Data Source [id number] 09/20/2019 11:31:39 AM EDT [facility] NT INFORMATIONPatient MRN Name Date of Age Gend*PT [id number] Odin Jones 1935 83 years M SDAPT Location Admission Date/Time Visit ID [facility] 0[facility] --- Elizabeth De La Garza MD([id number]) EPI ID CSN Admitting Provider [id number] Elizabeth De La Garza MD([id number])No changes since last H&PZjosiah De La Garza MD11:31 AM Name Value Range Interpretation Code Description Data Rema rce(s) Supporting Document(s) ID Date Data Source [id number] 09/24/2019 12:42:10 AM EDT [facility] SPEC EXP DATE 09/23/2019TEST ING SITE PERFORMED AT [address] [place] [address] [facility] [place] [id number] NUMBER [id number] COMPONENT TYPE LEUKOPOOR RED CELLSUNIT DIVISION 00STATUS OF UNIT REL FROM ALLOCTRANSFUSION STATUS OK TO TRANSFUSECROSSMATCH RESULT COMPATIBLEUNIT NUMBER [id number] COMPONENT TYPE LEUKOPOOR RED CELLSUNIT DIVISION 00STATUS OF UNIT REL FROM ALLOCTRANSFUSION STATUS OK TO TRANSFUSECROSSMATCH RESULT COMPATIBLE Name Value Range Interpretation Code Description Data Rema rce(s) Supporting Document(s) TRANSFUSE RED CELLS Lab [facility] TESTING SITE PERFORMED AT [address] [place] [id number] ID Date Data Source [id number] 09/19/2019 03:27:03 PM EDT [facility] NT INFORMATIONPatient MRN Name Date of Age Gend*PT [id number] Odin Jones 1935 83 years M OPPT Location Admission Date/Time Visit ID Attending Provider --- --- --- Elizabeth De La Garza MD([id number]) EPI ID CSN Admitting Provider [id number] ---Addended by: NARENDRA GREEN on: 09/19/2019 03:27 PM Modules accepted: Orders Name Value Range Interpretation Code Description Data Rema rce(s) Supporting Document(s) ID Date Data Source [id number] 09/17/2019 10:35:00 AM EDT [facility] Name Value Range Interpretation Code Description Data Rema rce(s) Supporting Document(s) SARS coronavirus 2 RNA [facility] This lab was ordered by [facility] and reported by [facility]. ID Date Data Source [id number] 09/18/2019 11:07:47 PM EDT [facility] Name Value Range Interpretation Code Description Data [facility] rce(s) Supporting Document(s) SARS-COV-2 VIET Lab [facility] Not DetectedReference range: Not Detecte d This test was developed and its performance characteristics determined by [facility]. This test has not been FDA cleared [...] detected) result in this assay. Performed At: [facility] [address] [id number] Cristi Ulloa MD Ph:[phone] ID Date Data Source [id number] 09/17/2019 10:32:00 AM EDT [facility] CHEST ROUTINE PA and LATCLINICAL HISTORY: [...] rce(s) Supporting Document(s) ID Date Data Source [id number] 09/17/2019 09:38:00 AM EDT [facility] [place] ULTR ASOUND CAROTID DUPLEXCLINICAL HISTORY: Pretesting. Coronary [...] DIANNA FAUST M.D. on 09/17/2019 Transcribed by: RUSLAN on <<TranscriptionDateTime1>>CDS G code: ,CDS Modifier: ,cc: Name Value Range Interpretation Code Description Data Rema rce(s) Supporting Document(s) ID Date Data Source [id number] 09/17/2019 09:38:00 AM EDT [facility] [place] V ASCULAR VENOUS BL SAPHENOUS VEIN [...] DIANNA FAUST M.D. on 09/17/2019 Transcribed by: RUSLAN on <<TranscriptionDateTime1>>CDS G code: ,CDS Modifier: ,cc: Name Value Range Interpretation Code Description Data Rema rce(s) Supporting Document(s) ID Date Data Source [id number] 09/17/2019 09:14:12 AM EDT [facility] Name Value Range Interpretation Code Description Data Rema rce(s) Supporting Document(s) POC TEMPERATURE [facility] POC SOURCE [facility] PUNCTURE SITE [facility] O2 THERAPY [facility] CLEMENTINA TEST [facility] POC PH 7.40 pH (7.35-7.45) [facility] POC PCO2 38.5 MMHG (32.0-48.0) [facility] POC PO2 82 MMHG (83-108) L [facility] POC SAT O2 96 % (95-99) [facility] POC BASE DEFICIT 1 MMOL/L (0-2) [facility] POC HCO3 23.9 MMOL/L (21.0-29.0) [facility] POC TOTAL CO2 25 MMOL/L (23.0-32.0) [facility] ID Date Data Source [id number] 09/18/2019 11:15:13 AM EDT [facility] SPECIMEN DESCRIPTION MIDSTREAM UR INE,CLEAN CATCHCULTURE RESULTS NO GROWTHREPORT STATUS FINAL 09/18/2019 Name Value Range Interpretation Code Description Data Rema rce(s) Supporting Document(s) ID Date Data Source [id number] 09/17/2019 02:45:51 PM EDT [facility] Name Value Range Interpretation Code Description Data Rema rce(s) Supporting Document(s) COLOR [facility] APPEARANCE [facility] SPEC GRAV URINE 1.016 (1.003-1.030) [facility] PH URINE 5.5 (5.0-7.5) [facility] LEUK ESTERASE (NEG) [facility] NITRITE URINE (NEG) [facility] PROTEIN URINE (NEG) [facility] GLUCOSE URINE (NEG) [facility] KETONE URINE (NEG) [facility] UROBILINOGEN 1.0 mg/dL (0-1.0) [facility] BILIRUBIN URINE (NEG) [facility] BLOOD/HGB URINE (NEG) [facility] ID Date Data Source [id number] 09/17/2019 08:52:19 AM EDT [facility] Name Value Range Interpretation Code Description Data Rema rce(s) Supporting Document(s) EKG [facility] DMLEKy3zWfVIWuOxt5YrAfQuLKZlRV1leso1A6W6yUJcU4DymEQjt0dgI6UwK4PxJPAdXBDJQQ7AoPRz jb2 [file] SRpYgsVWSpIksVWarIUkWWKrJIqLBVRZYqslSRpYks TIVsBqnt5j4H883ASNjtp1HXAmKomTm64rQ77ZFq8vBN6bfZfwPfQ7XQQKgFdtJrVhsJ/MdRnAa8QQFo G/D4cNw1741oiGG517srg9+XD3MAuC7Wd93WaY84qGqYdbybV3nhTJa+HdDqg38D6xJDNkAh2i0CoPXg vD07kvhq/LzAxBg4QE2HezAkw7KFrt5RtsLxVm/eyB T/LHrwYzshOec+Kskn6d2kQQcCo1Y51pZbauNHFJx9gtsdo1rQXSnfYmh8tZInPm2d57yE7VXtzu1zzj dso1R2P6/WRqw6RQR06bun0se6uQwMykdEj4V2caZyvkJO1mJfRBB5CimkuyHjGOws5s9MJ2w6B8hDMC /zBF8HZOuekhL1JdZTu1hhhbZ5iQMxYxWS4pO0YkqR PoLS6oAndCBr9mNx0DJT0O3KnKNCDLH7HgkDCOF1HGjUx/l7//D47p9KmbvRRM/csRcomctv08KNil1a vdDNZTC3LLFnu3VnIWGLjTqXA5IlhVtSGaz1bDEKAblIZvKUt/GK3sAxVsUiTM1lUP6Vu5cAfhAWmcbt i4iQ2Xvh5O1qPxp+JDDKCJJ5lfF/QMSZOKPxdqTwgn gcCfQJSPcigWroX0hDmNRI2B47YzJ3KQ75NMD01PwuHhnuYQiXoEs6LT93rUB7VjoEgLpIiqum+MHM5g o/mNl/7Ix5HsDw4g3d95CYm+S696EEMFWSNT4ctjOJ5utIr0AGRwForSS/mI0+84zxaTV4+ZZghEKoBE owKcGkBJMShH/lnpsk5sC8UjrKY1AiuoCj+BBrEP2V 6ufKBENiMZsUsXgxl0YtJnFOErvYzwT2niIeeQP/KLx4YmqVrj428lSaOSDeYAljJhaQyrbw+IcWxx22 +f5TzjnYX8YTluEDQ5sxvxQIi+hydrogenation 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 operator/u3zEZqWb6d5qS5ZwMylJ09lpLQjD8w7a4sjYt5PLB9ouyPRwSE [file] 1Us940FNUiKTUQJst+PenmbSUrdWuqKIUZJZZfJTYMAGYHH3A= ID Date Data Source [id number] 09/17/2019 01:40:02 PM EDT [facility] SPEC EXP DATE 09/21/2019PATI ENT ABO/Rh O POSITIVEANTIBODY SCREEN NEGATIVETESTING SITE PERFORMED AT [address] [place] [id number] Name Value Range Interpretation Code Description Data Rema rce(s) Supporting Document(s) TYPE AND SCREEN [facility] ID Date Data Source [id number] 09/17/2019 12:57:12 PM EDT [facility] Name Value Range Interpretation Code Description Data Rema rce(s) Supporting Document(s) ROOM TEMP AB SCREEN [facility] ROOM TEMP AB SCREEN NEGATIVE ID Date Data Source [id number] 09/17/2019 08:32:22 AM [facility]T [facility] INFORMATIONPatient MRN Name Date of Age Gend*PT [id number] Odin Jones 1935 83 years M OPPT Location Admission Date/Time Visit ID Attending Provider --- --- --- Elizabeth De La Garza MD([id number]) EPI ID CSN Admitting Provider [id number] ---HISTORY PHYSICALName: OdinMinesh Jones : 1935 Sex: male Care Provider: [...] or chest heaviness. There hasbeen no recent TN or congestive failure. He denies leg edema. 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 Myocardial infarction [...] mouth 2 (two) times a dayHistorical Provider, MDaspirin 81 MG chewable tablet Chew 81 mg daily Historical Provider, MDatorvastatin (LIPITOR) 20 MG tablet Take 20 mg by mouth daily HistoricalProvider, MDcaptopril (CAPOTEN) 25 MG tablet Take 25 mg by mouth 2 (two) times a dayHistorical Provider, MDDAILY KARAN (THERAGRAN) per tablet Take 1 tablet by mouth daily HistoricalProvider, MDDORZOLAMIDE HCL-TIMOLOL MAL OP Administer 1 drop to [...] file Gets together: Not on file Attends yarsanism service: Not on file Active member of [...] warm and dry.HEENT: Head is normocephalic, atraumatic. [place] conjunctivae. 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 Surgery as per [...] rce(s) Supporting Document(s) ID Date Data Source [id number] 09/17/2019 08:15:00 AM EDT [facility] ([facility]) Name Value Range Interpretation Code Description Data Rema rce(s) Supporting Document(s) Hemoglobin A1c/Hemoglobin.total in Blood 5.7 [facility] ([facility]) ID Date Data Source [id number] 09/18/2019 12:28:07 PM EDT [facility] [place] Name Value Range Interpretation Code Description Data Rema rce(s) Supporting Document(s) SPECIMEN DESCRIPTION [facility] [place] STAPH SCREEN RESULTS (ONEGSA) A [facility] COMMENT [facility] GENE TO DETECT STAPH AUREUS. (2) RT-P CR WAS PERFORMED FOR THE mecA AND [employer] GENES TO DETECT METHICILLIN RESISTANCE IN STAPH AUREUS. ID Date Data Source [id number] 09/17/2019 01:19:32 PM EDT [facility] [place] Name Value Range Interpretation Code Description Data Rema rce(s) Supporting Document(s) NT PRO BNP 608 pg/mL (0-450) H [facility] [place] ID Date Data Source [id number] 09/17/2019 01:19:32 PM EDT [facility] [place] Name Value Range Interpretation Code Description Data Rema rce(s) Supporting Document(s) SODIUM 142 mmol/L (136-145) [facility] POTASSIUM 4.8 mmol/L (3.6-5.2) [facility] CHLORIDE 106 mmol/L (100-108) [facility] CO2 26 mmol/L (22-31) [facility] ANION GAP 10 mmol/L (7-16) [facility] UREA NITROGEN 23 mg/dL (7-24) [facility] CREATININE 1.20 mg/dL (0.80-1.30) [facility] BUN/CREAT RATIO 19.2 RATIO (10.0-20.0) [facility] GLUCOSE 105 mg/dL (70-99) H [facility] CALCIUM 9.6 mg/dL (8.4-10.2) [facility] TOTAL PROTEIN 7.2 g/dL (6.4-8.2) [facility] ALBUMIN 3.8 g/dL (3.2-4.5) [facility] GLOBULIN 3.4 g/dL (2.7-4.3) [facility] ALB/GLOB RATIO 1.1 RATIO [facility] ALKALINE PHOSPHATASE 98 U/L (45-117) [facility] BILIRUBIN,TOTAL 1.1 mg/dL (0.0-1.0) H [facility] PLEASE NOTE:Total bilirubin results may be falselyelevated in patients taking Eltrombopag. AST (SGOT) 16 U/L (11-39) [facility] ALT (SGPT) 24 U/L (12-78) [facility] GFR 58 ml/min/1.73m2 (>59) L [facility] GFR ( AMER) >60 ml/min/1.73m2 (>59) [facility] GFR INTERPRETATION [facility] --NORMAL KIDNEY FUNCTION OR MILD DISEASE - GFR >OR= 60CHRONIC KIDNEY DISEASE - GFR 15 - 59RENAL FAILURE - GFR <15 Est. GFR calculation based on the MDRDstudy equation, which assumes a steadystate for creatinine. Est. GFR should notbe used for medication dosing. ID Date Data Source [id number] 09/17/2019 12:28:25 PM EDT [facility] [place] Name Value Range Interpretation Code Description Data Rema rce(s) Supporting Document(s) HEMOGLOBIN A1C @ 5.7 % (4.0-6.0) [facility] [place] Performed using Siemens [place] immunoassa y.Care must be taken when interpreting VdE9rvbvatsl in patients with a hemoglobin variantor decreased erythrocyte lifespan. Values 5.7 - 6.4% suggest prediabetes.Values >=6.5% are diagnostic for diabetes.REFERENCE: DIABETES CARE 2018: 41(S13-S27). EST AVERAGE GLUCOSE 117 mg/dL [facility] [place] ID Date Data Source [id number] 09/17/2019 11:57:32 AM EDT [facility] [place] Name Value Range Interpretation Code Description Data Rema rce(s) Supporting Document(s) APTT 27.5 s (22.0-34.3) [facility] [place] Y ID Date Data Source [id number] 09/17/2019 11:57:32 AM EDT [facility] Name Value Range Interpretation Code Description Data Rema rce(s) Supporting Document(s) PT 10.9 s (9.2-11.9) [facility] [place] INR 1.05 [facility] abimael HODGE SUGGESTED THERAPEUTIC RANGES USING INR F ORSTABILIZED ANTICOAGULATED PATIENTS:STANDARD DOSE THERAPY INR 2.0-3.0 DVT, PE, PREVENT DVT OR EMBOLISMHIGH DOSE THERAPY INR 2.5-3.5 PREVENT EMBOLISM FROM MECHANICAL HEART VALVE ID Date Data Source [id number] 09/17/2019 11:31:37 AM EDT [facility] [place] Name Value Range Interpretation Code Description Data Rema rce(s) Supporting Document(s) WBC 5.1 10*3/uL (4.1-11.0) [facility] [place] RBC 5.37 10*6/uL (4.60-6.10) [facility] HGB 11.9 g/dL (13.5-18.0) L [facility] [place] HCT 37.3 % (41.0-53.0) L [facility] MCV 69.4 fL (80.0-95.0) L [facility] MCH 22.1 pg (27.0-32.0) L [facility] MCHC 31.9 g/dL (32.0-36.0) L [facility] RDW 16.0 % (10.5-14.5) H [facility] [place] PLT 191 10*3/uL (150-450) [facility] MPV 9.4 fL (7.1-10.7) [facility] NEUT % 75.6 % (35.0-75.0) H [facility] LYMPH % 14.1 % (16.0-52.0) L [facility] [place] MONO % 7.1 % (0.0-8.0) [facility] EOS % 2.7 % (0.0-5.0) [facility] BASO % 0.5 % (0.0-4.0) [facility] NEUT # 3.9 10*3/uL (1.8-7.7) [facility] LYMPH # 0.7 10*3/uL (1.2-4.8) L [facility] [place] MONO # 0.4 10*3/uL (0.0-0.8) [facility] [place] Eosinophils [#/volume] in Blood by Automated count 0.1 10*3/uL (0.0-0 .5) [facility] BASO # 0.0 10*3/uL (0.0-0.2) [facility] ID Date Data Source [id number] 08/24/2019 09:00:22 AM EDT [facility] Name Value Range Interpretation Code Description Data Rema rce(s) Supporting Document(s) EKG [facility] [id number] jb2 [file] [id number] ID Date Data Source [id number] 08/24/2019 12:29:19 AM EDT [facility] NT INFORMATIONPatient MRN Name Date of Age Gend*PT [id number] Odin Jones 1935 83 years M HOPPT Location Admission Date/Time Visit ID Attending Provider08/23/19 1319 --- --- EPI ID CSN Admitting Provider [id number] Lorenzo Khan MD([id number])Cardiothoracic Surgery ConsultOdin PlascenciarMRN: [id number] for consult: CADAssessment/Plan: After I reviewed detailed [...] on phone: None Gets together: None Attends yarsanism service: None Active member of club or [...] rce(s) Supporting Document(s) ID Date Data Source [id number] 08/23/2019 03:32:26 PM EDT [facility] Name Value Range Interpretation Code Description Data [facility] rce(s) Supporting Document(s) &PDF [facility] [id number]8XDemHF3yGXK7ORYjt vci [file] [id number] ID Date Data Source [id number] 08/23/2019 03:07:15 PM EDT [facility] NT INFORMATIONPatient MRN Name Date of Age Gend*PT [id number] Odin Jones 1935 83 years M HOPPT Location Admission Date/Time Visit ID Attending Provider08/23/19 1319 --- Lorenzo Khan MD([id number]) EPI ID CSN Admitting Provider [id number] Lorenzo Khan MD([id number])Updated H&PPlease see the scanned/dictated outpatient note.I have reviewed the note, clinical history and physical exam findings. Therehave been no significant changes.Plan as outlined in the outpatient note.Risk/benifit/alternative of cardiac catheterization was discussed withpatient/family. Risks included, but not limited to; TN, CVA, , renalimpairment, vascular complication, and need for emergency surgery were discussedand accepted by patient.Lorenzo Khan MD, [facility], [facility] HOSPITALInterventional Director Digital Strategy Name Value Range Interpretation Code Description Data Rema rce(s) Supporting Document(s) ID Date Data Source [id number] 08/20/2019 09:45:00 AM EDT [facility] ([facility] Name Value Range Interpretation Code Description Data Rema rce(s) Supporting Document(s) Laboratory test finding (navigational concept) Laboratory test result [facility] ([facility]) Testing was performed using the stephanie(R) SARS-CoV-2 test. This test was developed and its performance characteristics determined by [employer]. This test has not been FDA cleared [...] detected) result in this assay. Performed at: [facility] Lab[address] [id number] Wax Blender: Liane Colin MD, Phone: [phone] Not Detected ID Date Data Source [id number] 08/20/2019 09:45:00 AM EDT [facility] Name Value Range Interpretation Code Description Data Rema rce(s) Supporting Document(s) SARS CORONAVIRUS 2 RNA [facility] This lab was ordered by [facility] and reported by [facility]. ID Date Data Source [id number] 08/13/2019 10:31:00 AM EDT [facility] ([facility]) Name Value Range Interpretation Code Description Data Rema rce(s) Supporting Document(s) Glucose, Fasting 93 mg/dL 70-100 Normal (applies to non-numeric results) [facility] ([facility]) Glomerular Filtration Rate Laboratory test result Normal (applies to non- numeric results) [facility] <content>Units are mL/min/1.73 m2</content>
<content></content>
<content>Chronic Kidney Disease Staging per NKF:</content>
<content></content>
<content>Stage I & II GFR >=60 Normal to Mildly Decreased</content>
<content>Stage III GFR 30- 59 Moderately Decreased</content>
<content>Stage IV GFR 15-29 Severely Decreased</content>
<content>Stage V GFR <15 Very Little GFR Left</content>
<content>ESRD GFR <15 on SR. MANAGER</content>
<content></content> Creatinine For GFR 1.15 mg/dL 0.70-1.30 Normal (applies to non -numeric results) [facility] ([facility]) Blood Urea Nitrogen 23 mg/dL 7-18 Above high normal [facility] ([facility]) Sodium Level 139 meq/L 136-145 Normal (applies to non-numeric res ults) [facility] ([facility]) Potassium Serum 4.9 meq/L 3.5-5.1 Normal (applies to non-numeric results) [facility] ([facility]) Chloride Level 107 meq/L 98-107 Normal (applies to non-numeric r esults) [facility] ([facility]) Calcium Level 9.7 mg/dL 8.8-10.2 Normal (applies to non-numeric re sults) [facility] ([facility]) Anion Gap 5 meq/L 8-16 Below low normal [facility] ( [facility]) Carbon Dioxide Level 27 meq/L 21-32 Normal (applies to non-num estela results) [facility] ([facility]) ID Date Data Source [id number] 08/13/2019 10:31:00 AM EDT [facility] ([facility]) Name Value Range Interpretation Code Description Data Rema rce(s) Supporting Document(s) Red Blood Count 5.76 10 4.30-6.10 Normal (applies to non-numeric results) [facility] ([facility]) Hemoglobin 12.9 g/dL 13.5-17.5 Below low normal [facility] ( [facility]) White Blood Count 5.8 10 4.0-10.0 Normal (applies to non-numeri c results) [facility] ([facility]) Hematocrit 40.8 % 42.0-52.0 Below low normal [facility] ( [facility]) Mean Corpuscular Volume 70.8 fl 80.0-96.0 Below low normal [facility] ([facility]) Mean Corpuscular Hemoglobin 22.4 pg 27.0-33.0 Below low normal [facility] ([facility]) Mean Corpuscular HGB Conc 31.6 g/dL 32.0-36.5 Below low normal [facility] ([facility]) Red Cell Distribution Width 18.4 % 11.5-14.5 Above high normal [facility] ([facility]) Platelet Count, Automated 197 10 150-450 Normal (applies to non-numeric results) [facility] ([facility]) [place] % 8.0 % 0.0-5.0 Above high normal [facility] ([facility]) Lymph % 16.5 % 24.0-44.0 Below low normal [facility] ( [facility]) Neutrophils % 71.7 % 36.0-66.0 Above high normal MEDE NT ([facility]) Eos % 2.6 % 0.0-3.0 Normal (applies to non-numeric resul ts) [facility] ([facility]) Baso % 0.7 % 0.0-1.0 Normal (applies to non-numeric resul ts) [facility] ([facility]) Nucleated Red Blood Cell % 0.0 % 0-0 Normal (applies to n on-numeric results) [facility] ([facility]) Neutrophils # 4.1 10 1.5-8.5 Normal (applies to non-numeric re sults) [facility] ([facility]) Immature Granulocyte % 0.5 % 0-3.0 Normal (applies to non-n umeric results) [facility] ([facility]) Baso # 0.0 10 0.0-0.2 Normal (applies to non-numeric resul ts) [facility] ([facility]) [place] # 0.5 10 0.0-0.8 Normal (applies to non-numeric resul ts) [facility] ([facility]) Eos # 0.2 10 0.0-0.5 Normal (applies to non-numeric resul ts) [facility] ([facility]) Lymph # 1.0 10 1.5-5.0 Below low normal [facility] ( [facility]) ID Date Data Source [id number] 08/13/2019 07:54:00 AM EDT [facility] ([facility]) Name Value Range Interpretation Code Description Data Rema rce(s) Supporting Document(s) Calcium [Mass/volume] in Serum or Plasma 9.7 [facility] ([facility]) Chloride [Moles/volume] in Serum or Plasma 107 [facility] ([facility]) Sodium 139 [facility] Carbon dioxide, total [Moles/volume] in Serum or Plasma 27 [facility] ([facility]) Glucose 93 70-100 [facility] Blood Urea Nitrogen 23 5-21 [facility] ([facility]) Potassium [Moles/volume] in Serum or Plasma 4.9 [facility] ([facility]) Creatinine 1.15 0.6-1.5 [facility] ([facility]) Glomerular filtration rate/1.73 sq M.pre dicted [Volume Rate/Area] in Serum or Plasma by Creatinine-based formula (MDRD) Laboratory test result [facility] ([facility]) ID Date Data Source [id number] 08/13/2019 07:54:00 AM EDT [facility] ([facility]) Name Value Range Interpretation Code Description Data Rema rce(s) Supporting Document(s) White Blood Count 58.8 4.3-10.9 [facility] ([facility]) Red Blood Count 5.76 4.70-6.20 [facility] ([facility]) Platelets 197 130-400 [facility] Hemoglobin 12.9 13.0-17.0 [facility] ([facility]) Hematocrit 40.8 39.0-50.0 [facility] ([facility]) ID Date Data Source [id number] 07/09/2019 07:47:00 AM EDT [facility] ([facility]) Name Value Range Interpretation Code Description Data Rema rce(s) Supporting Document(s) White Blood Count 6.0 10 4.0-10.0 [facility] Hemoglobin 13.2 g/dL 13.5-17.5 [facility] ([facility]) Red Blood Count 5.83 10 4.30-6.10 [facility] ([facility]) Hematocrit 41.1 % 42.0-52.0 [facility] ([facility]) Mean Corpuscular Hemoglobin 22.6 pg 27.0-33.0 [facility] ([facility]) Mean Corpuscular HGB Conc 32.1 g/dL 32.0-36.5 [facility] ([facility]) Mean Corpuscular Volume 70.5 fl 80.0-96.0 M EDENT ([facility]) Platelet Count, Automated 176 10 150-450 [facility] ([facility]) Red Cell Distribution Width 19.4 % 11.5-14.5 [facility] ([facility]) Nucleated Red Blood Cell % 0.0 % 0-0 MED ENT ([facility]) ID Date Data Source [id number] 07/09/2019 07:47:00 AM EDT [facility] ([facility]) Name Value Range Interpretation Code Description Data Rema rce(s) Supporting Document(s) Triglycerides Level 59 mg/dL [facility] ([facility]) Cholesterol Level 87 mg/dL [facility] ([facility]) LDL Cholesterol 25 mg/dL [facility] ([facility]) HDL Cholesterol 50 mg/dL [facility] ([facility]) Non-HDL-C 37 mg/dL [facility] Cholesterol Risk Ratio 1.740 [facility] ([facility]) ID Date Data Source [id number] 07/09/2019 07:47:00 AM EDT [facility] ([facility]) Name Value Range Interpretation Code Description Data Rema rce(s) Supporting Document(s) Magnesium [Mass/volume] in Serum or Plasma 2.2 mg/dL 1.8-2.4 [facility] ([facility]) ID Date Data Source [id number] 07/09/2019 07:47:00 AM EDT [facility] Name Value Range Interpretation Code Description Data Rema rce(s) Supporting Document(s) Blood Urea Nitrogen 21 mg/dL 7-18 [facility] ([facility]) Glucose, Fasting 107 mg/dL 70-100 [facility] ([facility]) Sodium Level 142 meq/L 136-145 [facility] ([facility]) Glomerular Filtration Rate 58.5 MED ENT ([facility]) <content>Units are mL/min/1.73 m2</content>
<content></content>
<content>Chronic Kidney Disease Staging per NKF:</content>
<content></content>
<content>Stage I & II GFR >=60 Normal to Mildly Decreased</content>
<content>Stage III GFR 30- 59 Moderately Decreased</content>
<content>Stage IV GFR 15-29 Severely Decreased</content>
<content>Stage V GFR <15 Very Little GFR Left</content>
<content>ESRD GFR <15 on SR. MANAGER</content>
<content></content> Creatinine For GFR 1.26 mg/dL 0.70-1.30 [facility] ([facility]) Potassium Serum 4.8 meq/L 3.5-5.1 [facility] ([facility]) Chloride Level 107 meq/L 98-107 [facility] ([facility]) Carbon Dioxide Level 28 meq/L 21-32 [facility] ([facility]) Anion Gap 7 meq/L 8-16 [facility] ([facility] Ast/Sgot 9 U/L 7-37 [facility] ([facility]) Calcium Level 9.4 mg/dL 8.8-10.2 [facility] ([facility]) Alt/SGPT 17 U/L 12-78 [facility] Total Protein 6.7 GM/DL 6.4-8.2 [facility] ([facility]) Alkaline Phosphatase 95 U/L 45-117 [facility] ([facility]) Bilirubin,Total 1.3 mg/dL 0.2-1.0 [facility] ([facility]) Albumin 3.5 GM/DL 3.2-5.2 [facility] Albumin/Globulin Ratio 1.09 1.00-1.93 ME DENT (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 Lung nodules were biopsied in 2017 and showed no evidence of malignancy. Patient is status post chemotherapy and radiation.TECHNIQUE: The study was performed at the [facility]. Approximately 60 minutes following IV tracer [...] Value Range Interpretation Code Description Data Rema shaw(s) Supporting Document(s) ID Date Data Source [id number] 05/04/2019 09:24:53 AM [facility] Name Value Range Interpretation Code Description Data Rema rce(s) Supporting Document(s) Progress Note [facility] [id number]/HHEndPTPro5TjOGgyAXb0DGwmBHRrV3ZkTTW5uG4lLBY6SZyFKyTaGhRdHuS7 lbm [file] ICAgICAgICAgICAgICAgICAgICAgICAgICAgICAgIC AgICAgICAgICAgICAgICAgICAgICAgICAgICAgICAgICAgICAgICAgICAgICAgICAgICAgICAgICAgIC AgDQogICAgICAgICAgICAgICAgICAgICAgICAgICAgICAgICAgICAgICAgICAgICAgICAgICAgICAgIC AgICAgICAgICAgICAgICAgICAgICAgICAgICAgICAg ICAgICAgICAgICAgDQogICAgICAgICAgICAgICAgICAgICAgICAgICAgICAgICAgICAgICAgICAgICAg ICAgICAgICAgICAgICAgICAgICAgICAgICAgICAgICAgICAgICAgICAgICAgICAgICAgICAgDQogICAg ICAgICAgICAgICAgICAgICAgICAgICAgICAgICAgIC AgICAgICAgICAgICAgICAgICAgICAgICAgICAgICAgICAgICAgICAgICAgICAgICAgICAgICAgICAgIC AgICAgDQogICAgICAgICAgICAgICAgICAgICAgICAgICAgICAgICAgICAgICAgICAgICAgICAgICAgIC AgICAgICAgICAgICAgICAgICAgICAgICAgICAgICAg ICAgICAgICAgICAgICAgDQogICAgICAgICAgICAgICAgICAgICAgICAgICAgICAgICAgICAgICAgICAg ICAgICAgICAgICAgICAgICAgICAgICAgICAgICAgICAgICAgICAgICAgICAgICAgICAgICAgICAgDQog ICAgICAgICAgICAgICAgICAgICAgICAgICAgICAgIC AgICAgICAgICAgICAgICAgICAgICAgICAgICAgICAgICAgICAgICAgICAgICAgICAgICAgICAgICAgIC AgICAgICAgDQogICAgICAgICAgICAgICAgICAgICAgICAgICAgICAgICAgICAgICAgICAgICAgICAgIC AgICAgICAgICAgICAgICAgICAgICAgICAgICAgICAg ICAgICAgICAgICAgICAgICAgDQogICAgICAgICAgICAgICAgICAgICAgICAgICAgICAgICAgICAgICAg ICAgICAgICAgICAgICAgICAgICAgICAgICAgICAgICAgICAgICAgICAgICAgICAgICAgICAgICAgICAg DQogICAgICAgICAgICAgICAgICAgICAgICAgICAgIC AgICAgICAgICAgICAgICAgICAgICAgICAgICAgICAgICAgICAgICAgICAgICAgICAgICAgICAgICAgIC HyBXLjEAPgKPAjZVv6R0qqVQFcFKXnPX2sTBa1Ua9+FHwAJkDbMWD4fhKjpE2ZOB1rg9QlWOyiPJBjg5 DoQAi1LL8ELHJaHGenPC6NMInwzp1HSJFhCPZobSRQ r0hoXvJuEMO3TGNeEamnEA0PMGAfS2neewOcWPUtOOKZLHnrDQIOJHXiRESvFxEzUySbFOEqGNWiLMYM YRV0BCApZiZaEXbtDX9Ws8IoaZB0QOe+Sc2IDF4qc5OkHEboDQJcFM6gtm2KUMvDDfHxH8FoinM5HXAe LKIrBq5ISILqZDQxgYJzSRWfGUOFTbBuK0NvuU40TL ENCj4+MIxksvOnYvsJTrIpIQSnm0PeEBb9JL7FFWQtCDy5uZYtBFYcY3Ncd8DeMc87TQRgAwooLWnqff LgRxUpkbG8ILAFXCAsoVWqEjCzRaKjASLdJEloHEVWQRkMOhKuD0Paa9NyUkU5GGNbAxJzHMmlRKVsFS pxNG82bUuwMO0YDALtYAWpMM72QLUbCOQsBo3CXj1T UyCsOE0hxk1WGeKqBR3xmy4FAUeXTtNtR5L6zIShS1Alnp19OA3PcFX0wMXsXH8UaK2cTR7Ai5EpGSWm TwLdIAZpIQErEQEjJMSnLwNhTT3ORNDfBcCjsWMzNNOmBkE2BZXxJnKpCxpsLV4BDQWxQIO0FX0NEJ5M HvdaG8UNDBlbzRroGhEYWOE/QUNUSVZJVFkmTVJfT0 8YS2QSDLnHTmlkZUjBXqtqQt7gQBi+Rj1DGR1ic7PhFWzrLlBqGS2rgp9JZQmCFeYrB2C3iOWdL4D4KO vcRu7GFYJhXHPjXakfSQCUHDkfCF8CDJ8opmN4QD3GiYMwFOWrZXMuaGCmCMs5X54imSPvEOriQW7KNC A+Migue+Tt9UNZQjEYAtPKFdWpRtGDUQHcFeA0TzK0HG c0QyD1DdIR47bGijjzMuIZrwKW6UPN1gJETcHOWBRC9GfEJsnU6qxuChKNRhLOQRWzNcH61kuLUqOJJd SZQ9TQDfYo0SBLFxW4PuaqHfgZpzikLeIOFlMQEYRM7ETNgkbeGrrLGspPzwSM38uKqsZK6BLm1AHsVg ZE4mlc2XbQGyKt6WTRGkJr8UGGBhWTUtXGIuXZY9FZ UlZcKcWDijTHIwLVLnTBO7EUTaMBJfLB1NLtAjSCHhKrU7NHplOUMiGJTzsg6DIYUvWNAeJcQsRmMsKR RlUGSaOSsnBPArFFQlLGI1HBRkZPFyPA4ITiBpJTRbJAZ6GTSwOTFqYTIneu9OMRMkPIQpJub0XUXiVA RcNBBsORxhAPAvEWW7RNvnGCBfVHFuHH0MBsVzFTKd JVnlSzCeAPMjZSPvxc7NPLQxYECnIgF9LOXoWNZoDVTnVDkvZZBcYONpHQWhXXUlVCJnIB6QCxAcUPJe LUA9QMxqEJKyIMZyzb2VOKBeFSNwEbR8LOHlZRWeEDEsCMwlJYMxWBUuYfJ0GNVkCIIrPV0EGpGlJOLa WTQ2LQCkFPJuQGGafj0LHNKgYBDdGvbdVqEeQWGpQI FcDOkvBKBvFMT0VaNoDWOwHFEdTH6HEdLsDAXlOIa0EjQgAQOiJIQnpq3CFZMrFJVaUZw9ZsSrCJKlGC HyDBqbSPIwOBKcWKyaEACdMXLdDD4BVkXlWYHtKqHxWvSsSMWaRTPure1IXCTmSNFeQqOlEOAyCIXqGO BnZMhcHSEwYMTxGeS2ZUKyODSwRM2TEdAzGESxWdB9 CjFyTNNoXPLwnq6EUQSeFHFqUnp6SYBvOOAhNQSjOYswBJLgJTY3OrqnIPPmRGRwHQ8IStDyWPJjHaD1 TMzcIZGwDNJkyy2NALRjYDOyDTopYZYgHOEgZQWqAZkgAPCpLVN4XOq8RXEsICAiVL2QQyEbFZAjQtNx TNJaESGwNIJjzm0CTCYvOANwFnd0MLVkCHDfBODkIZ njQMYyYDJ5YLO0RUBdGSAbCK5KIaMeXNFbIeacKMExMOBzOHIrmz3FjIUbhYzvkn5PCWxOEh3SjInaZH KfXNacLv8toNEtYdKuNKCOAz4UknIvXGDlKPHYJTodXNCfTTGcLFZ4YoP9OgS5NrOlAVb9LHQqYtpmPT MoWKWaBht8PuS4AAItVws9LvqmDTmqIaR1AMxsDLC8 QOJ6DFY3QeCcDdS+CQ1pLZd+Ce7Ur8GqdfI8stWkFCulZbM8WO2AZWFHV2BZSz== ID Date Data Source [id number] 05/04/2019 08:44:37 AM EST [facility] Name Value Range Interpretation Code Description Data Rema e(s) Supporting Document(s) Leukocytes [#/volume] in Blood by Automated count 5.7 10*3/uL 4-10 [facility] Erythrocytes [#/volume] in Blood by Automated count 5.89 10*6/uL 4.6- 6.1 [facility] Hemoglobin [Mass/volume] in Blood 13.0 g/dL 13.5-18 L [facility] Hematocrit [Volume Fraction] of Blood by Automated count 41.1 % 4 1-53 [facility] Erythrocyte mean corpuscular volume [Entitic volume] by Auto mated count 69.8 fL 80-96 L [facility] Erythrocyte mean corpuscular hemoglobin [Entitic mass] by Automated count 22.0 pg 27-33 L [facility] Erythrocyte mean corpuscular hemoglobin concentration [Mass/volume] by Automated count 31.6 g/dL 32.0-[facility].0 [facility] distribution width [Ratio] by Automated count 16.8 % 11.5-14.5 H [facility] Platelets [#/volume] in Blood by Automated count 167 10*3/uL 150-400 [facility] Differential cell count method - Blood [facility] Neutrophils/100 leukocytes in Blood by Automated count 67 % [facility] Lymphocytes/100 leukocytes in Blood by Automated count 19 % [facility] Monocytes/100 leukocytes in Blood by Automated count 10 % [facility] Eosinophils/100 leukocytes in Blood by Automated count 3 % [facility] Basophils/100 leukocytes in Blood by Automated count 1 % [facility] Neutrophils [#/volume] in Blood by Automated count 3.81 10*3/uL 1.8-7 .0 [facility] Lymphocytes [#/volume] in Blood by Automated count 1.10 10*3/uL 1.2-4 .0 [facility] Monocytes [#/volume] in Blood by Automated count 0.56 10*3/uL 0-0.8 [facility] Eosinophils [#/volume] in Blood by Automated count 0.19 10*3/uL 0-0.5 [facility] Basophils [#/volume] in Blood by Automated count 0.03 10*3/uL 0-0.2 [facility] Nucleated erythrocytes/100 leukocytes [Ratio] in Blood by Automated count 0 /100{WBCs} 0-0 [facility] ID Date Data Source [id number] 05/04/2019 09:28:01 AM [facility] Name Value Range Interpretation Code Description Data Rema rce(s) Supporting Document(s) Albumin [Mass/volume] in Serum or Plasma by Bromocresol green (BCG) dye binding method 4.1 g/dL 3.5-5.2 [facility] Bilirubin.total [Mass/volume] in Serum or Plasma 1.0 mg/dL <1.2 [facility] Calcium [Mass/volume] in Serum or Plasma 9.3 mg/dL 8.8-10.2 [facility] Chloride [Moles/volume] in Serum or Plasma 104 mmol/L 98-107 [facility] Creatinine [Mass/volume] in Serum or Plasma 1.18 mg/dL 0.70-1.20 [facility] Glucose [Mass/volume] in Serum or Plasma 108 mg/dL 70-140 [facility] Alkaline phosphatase [Enzymatic activity/volume] in Serum or Plasma 80 U/L 40-129 [facility] Potassium [Moles/volume] in Serum or Plasma 4.7 mmol/L 3.4-5.1 [facility] Protein [Mass/volume] in Serum or Plasma 7.0 g/dL 6.4-8.3 [facility] Sodium [Moles/volume] in Serum or Plasma 140 mmol/L 136-145 [facility] Aspartate aminotransferase [Enzymatic activity/volume] in Serum or Plasma 16 U/L <40 [facility] Urea nitrogen [Mass/volume] in Serum or Plasma 24 mg/dL 8-23 H [facility] Osmolality of Serum or Plasma by calculation 294 mosm/kg 275-300 [facility] Creatinine/Urea nitrogen [Mass Ratio] in Serum or Plasma 20 [facility] Bicarbonate [Moles/volume] in Serum 25 mmol/L 22-29 [facility] Alanine aminotransferase [Enzymatic activity/volume] in Seru m or Plasma 11 U/L <41 [facility] Anion gap 3 in Serum or Plasma 11 mmol/L 8-15 [facility] Albumin/Globulin [Mass Ratio] in Serum or Plasma 1.4 [facility] Glomerular filtration rate/1.73 sq M pre dicted among non-blacks [Volume Rate/Area] in Serum or Plasma by Creatinine-based formula (MDRD) >6 0 [facility] Glomerular filtration rate/1.73 sq M pre dicted among blacks [Volume Rate/Area] in Serum or Plasma by Creatinine-based formula (MDRD) >60 [facility] ID Date Data Source [id number] 05/04/2019 09:28:01 AM [facility] Name Value Range Interpretation Code Description Data Rema rce(s) Supporting Document(s) Magnesium [Mass/volume] in Serum or Plasma 2.1 mg/dL 1.6-2.4 [facility] ID Date Data Source [id number] 05/01/2019 07:59:33 AM [facility] Name Value Range Interpretation Code Description Data Rema rce(s) Supporting Document(s) Progress Note [facility] ECBRLg2kYxKNDoYp99/KYXuwFYCxl0AaWZgmXVu0GJuvXZZtF5FcRNT0hH0hEQE1ZEyOLkVxZrJtGpGc lbm [file] Cj4+ZLoiaPMtyTtuRQSSIwWxGMA7ZPrqFHVROu6Z ID Date Data Source [id number] 04/20/2019 12:41:[address] [facility] [address] ABDOMEN PELVIS WITH CONTRAST [id number] RESULTInterpreted by:Jj Garcia, MDCLINICAL HISTORY:83-year-old male [...] rce(s) Supporting Document(s) ID Date Data Source [id number] 04/20/2019 11:05:[address] [facility] CT THORAX WITH CONTRAST [id number] RESUL TInterpreted by:Gilmer Maguire MDINDICATION: history of [...] rce(s) Supporting Document(s) ID Date Data Source [id number] 04/05/2019 01:26:35 PM [facility] Name Value Range Interpretation Code Description Data Rema rce(s) Supporting Document(s) Operative Note [facility] ETJMCi2vJbGINtEn92/FHSdyWUMff1VzWZalFXy8KWdwVYFzU9GgLJN2fA3tYOA8MZcQYoDnFnZsYeH5 lbm [file] UtimTRZlNtMzHym4B7KyQSNgDrYpLE8GEg6QEpP2JIK4fCTpDm3AQafmIMFILpJoZX1URBc= ID Date Data Source [id number] 04/05/2019 10:36:26 AM EST [facility] Name Value Range Interpretation Code Description Data Rema e(s) Supporting Document(s) History and Physical [facility] IHAXMe3uYaVXVsFk73/CDMhxBBKyl5SiHGpkBXl0EDzcXAEeA1GqKKH8tO8bAXG4YJsFJvPmRkStRyA2 lbm [file] AxMjQxNCAwMDAwMCBuDQowMDAwMDEyNjExIDAwMDAw HW7YUwIlQZCoNDD4XKJdCXXlCAUvoz0VSIOaQOXkZex0SwMzIWTfSLJxJJzpWUOzVXPwTKH4ZEHwOMRw GH1OPbElNQOnLPSmNUZqCQFcPZBykk5LJPKkJRTbUUIoJkDmXGXtTIEaRVndNKVlHLO8CvOoTYSuZYEw VJ0MOoSyRRGcEVS5GHGuEWCtUOOuol0MSORqUCA7TB M3HkJiRFZqLMFiNNwlAHEiOSC6LsD2MRXjUBNhAO0UPgWkRNSaSAE1VPMeIXOfHQBpxb0XJYExGWB5FO Q0HVHpJMCvBZGaVOskFCLaJVV8MnP3GWFqMIKfGC8YUpGyDLWzSCH3OqCiZQJmDRXqpv0ZPTOjRBV3Ow m7DMXxUVEkHOBdUOsfLWQnAVX1RJG2HIAcFGNhUE3O WyLwLJVbQNf9XlngKAFlYXNggb8ZZZApDNA8FHezHsAmKOZnBYXfJPcoGKYaMYU2YLk6UORtYXRdIX2D ExOkLDLhKJspZIPzYSWqDVQotz0TkWYosYirmz0CSOrWMp9HnJueEHF7OEgaVb3xgCTyGmTtWZDCBx2C iiFhYAMaNVSVQRlaQRBpCPE9WQKsDfGkJ5HlNONnZV o0JiW9SIZtVYP3DBK3QmDhHcB8UqV2QDBoFFOfToWsGFX9TnBzKAa5KXYsMyA5CTioLUD+BI0cUAq+Pg 9Ed8BkurN6nlKhYWt0VKV8HI4UWNKCV9ELCp== ID Date Data Source [id number] 04/06/2019 07:54:00 PM [facility] Surgical Pathology ReportName: Prosper JONES JMRN: [id number] Number: [id number] Date: 04/05/2019 00:00Received Date: [...] diagnosis is based on amicroscopic examination of herbicide service sales representative sections of tissue.Gross DescriptionThe specimen is [...] developed and their performance characteristics determined by [facility] Pathology department. They have not been cleared or approved by the USFood and Drug Administration. The FDA has determined that such clearanceor approval is not necessary. Name Value Range Interpretation Code Description Data Rema rce(s) Supporting Document(s) ID Date Data Source [id number] 03/16/2019 09:00:00 AM EST MEDTENZIN ([facility]) Name Value Range Interpretation Code Description Data Rema rce(s) Supporting Document(s) Appearance, Urine Laboratory test result MEDENT ([facility]) Specific [place] Urine Auto 1.019 1.002-1.035 [facility] ([facility]) PH,Urine 5.0 units 5.0-9.0 MED[facility] ([facility]) Color, Urine Laboratory test result MEDE NT [place] Glucose, Urine (Ua) Auto Laboratory test result [facility] [place] Protein, Urine Auto Laboratory test result [facility] [place] Ketone, Urine Auto Laboratory test result [facility] ([facility] Bilirubin, Urine Auto Laboratory test result [facility] ([facility] Urobilinogen, Urine Auto 0.2 mg/dL 0.0-2.0 [facility] ([facility] Blood, Urine Blood Laboratory test result [facility] ([facility] Nitrite, Urine Auto Laboratory test result [facility] ([facility] Leukocyte Esterase, Urine Auto Laboratory test result [facility] ([facility] WBC, Urine Auto 1 /HPF 0-3 [facility] ([facility]) RBC, Urine Auto 1 /HPF 0-3 [facility] ([facility]) Bacteria, Urine Auto Laboratory test result [facility] ([facility] Squamous Epithelial Cell Ur AU 0 /HPF 0-6 [facility] ([facility] Hyaline Cast, Urine Auto 0 /LPF 0-1 MEDEN T ([facility] ID Date Data Source [id number] 03/16/2019 08:58:00 AM EST [facility] ([facility] Name Value Range Interpretation Code Description Data Rema rce(s) Supporting Document(s) Bacteria identified in Urine by Culture Laboratory test result [facility] ([facility] ID Date Data Source [id number] 03/16/2019 08:45:00 AM EST [facility] ([facility] Name Value Range Interpretation Code Description Data Rema rce(s) Supporting Document(s) Bacteria identified in Urine by Culture Laboratory test result [facility] ([facility]) Procedure 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 Code Duration Value Status Description Data Source(s ) Alcohol intake 03/04/2020 12:00:00 AM EST Current non-d laila of alcohol (finding) completed Current non-drinker of alcohol (finding) [facility] Tobacco use and exposure 03/04/2020 12:00:00 AM EST Never used co mpleted Never used [facility] Smoking 03/04/2020 12:00:00 AM EST Former smoker completed Former smoker [facility] Alcohol intake 02/19/2020 12:00:00 AM EST Current non-d laila of alcohol (finding) completed Current non-drinker of alcohol (finding) [facility] Alcohol intake 01/29/2020 12:00:00 AM EST Current non-d laila of alcohol (finding) completed Current non-drinker of alcohol (finding) [facility] Alcohol intake 01/16/2020 12:00:00 AM EST Current non-d laila of alcohol (finding) completed Current non-drinker of alcohol (finding) [facility] Smoking 01/14/2020 12:00:00 AM EST Patient is a former smoker completed Patient is a former smoker [facility] ([facility]) Alcohol intake 12/19/2019 12:00:00 AM EDT Current non-d laila of alcohol (finding) completed Current non-drinker of alcohol (finding) [facility] Alcohol intake 10/23/2019 12:00:00 AM EDT Yes completed [facility] Smoking 10/23/2019 12:00:00 AM EDT Former smoker completed Former smoker [facility] Alcohol intake 09/28/2019 12:00:00 AM EDT Yes completed [facility] Smoking 09/28/2019 12:00:00 AM EDT Former smoker completed Former smoker [facility] Alcohol intake 09/21/2019 12:00:00 AM EDT Yes completed [facility] Smoking 09/21/2019 12:00:00 AM EDT Former smoker completed Former smoker [facility] Alcohol intake 09/17/2019 12:00:00 AM EDT Yes completed [facility] Smoking 09/17/2019 12:00:00 AM EDT Former smoker completed Former smoker [facility] Alcohol intake 08/23/2019 12:00:00 AM EDT Yes completed [facility] Smoking 08/23/2019 12:00:00 AM EDT Former smoker completed Former smoker [facility] Alcohol intake 05/04/2019 12:00:00 AM EST Current non-d laila of alcohol (finding) completed Current non-drinker of alcohol (finding) [facility] Smoking 05/04/2019 12:00:00 AM EST Former smoker completed Former smoker [facility] Alcohol intake 04/30/2019 12:00:00 AM EST Current non-d laila of alcohol (finding) completed Current non-drinker of alcohol (finding) [facility] Smoking 04/30/2019 12:00:00 AM EST Former smoker completed Former smoker [facility] Alcohol intake 04/06/2019 12:00:00 AM EST Current non-d laila of alcohol (finding) completed Current non-drinker of alcohol (finding) [facility] Smoking 04/06/2019 12:00:00 AM EST Former smoker completed Former smoker [facility] Alcohol intake 04/05/2019 12:00:00 AM EST Current non-d laila of alcohol (finding) completed Current non-drinker of alcohol (finding) [facility] Smoking 04/05/2019 12:00:00 AM EST Former smoker completed Former smoker [facility] Vital Signs ID Date Data Source [id number] Name Value Range Interpretation Code Description Data Source(s) Body mass index (BMI) [Ratio] 29.8 kg/m2 29.8 k g/m2 MEDENT ([facility] [place] body weight 178 [lb_av] 178 [lb_av] MEDEN T ([facility] Body weight 220.00 [lb_av] 220.00 [lb_av] MEDEN T ([facility] Body height 72 [in_i] 72 [in_i] [facility] ([facility] 6'0" Respiratory rate 16 /min 16 /min MED[facility] ( [facility] Heart rate 80 /min 80 /min [facility] ([facility] Body temperature 97.8 [degF] 97.8 [degF] [facility] ([facility] Diastolic blood pressure 74 mm[Hg] 74 mm[Hg] [facility] ([facility] Systolic blood pressure 114 mm[Hg] 114 mm[Hg] M EDENT ([facility] Oxygen saturation in Arterial blood by Pulse oximetry 93 % 93 % [facility] ([facility] Body mass index (BMI) [Ratio] 30.0 kg/m2 30.0 k g/m2 [facility] ([facility] [place] body weight 178 [lb_av] 178 [lb_av] MEDEN T ([facility] Body weight 221.00 [lb_av] 221.00 [lb_av] MEDEN T ([facility] Body height 72 [in_i] 72 [in_i] [facility] ([facility] 6'0" Respiratory rate 14 /min 14 /min MED[facility] ( [facility] Heart rate 64 /min 64 /min [facility] ([facility] Body temperature 97.6 [degF] 97.6 [degF] [facility] ([facility] Diastolic blood pressure 66 mm[Hg] 66 mm[Hg] [facility] ([facility] Systolic blood pressure 122 mm[Hg] 122 mm[Hg] M EDENT ([facility] Respiratory rate 16 /min 16 /min MED[facility] ( [facility]) Heart rate 68 /min 68 /min [facility] ([facility]) Regular Body mass index (BMI) [Ratio] 28.8 kg/m2 28.8 k g/m2 [facility] ([facility]) Body height 73 [in_i] 73 [in_i] [facility] ([facility]) 6'1" Body weight 218.00 [lb_av] 218.00 [lb_av] MEDEN T ([facility]) Oxygen saturation in Arterial blood by Pulse oximetry 92 % 92 % [facility] ([facility] Body mass index (BMI) [Ratio] 29.7 kg/m2 29.7 k g/m2 [facility] ([facility] [place] body weight 160 [lb_av] 160 [lb_av] MEDEN T ([facility] Body weight 219.00 [lb_av] 219.00 [lb_av] MEDEN T ([facility] Body height 72 [in_i] 72 [in_i] MED[facility] ([facility] 6'0" Respiratory rate 16 /min 16 /min MED[facility] ( [facility] Heart rate 66 /min 66 /min [facility] ([facility] Body temperature 98.4 [degF] 98.4 [degF] [facility] ([facility] Diastolic blood pressure 68 mm[Hg] 68 mm[Hg] [facility] ([facility] Systolic blood pressure 124 mm[Hg] 124 mm[Hg] M EDENT ([facility] Diastolic blood pressure 68 mm[Hg] 68 mm[Hg] [facility] ([facility]) sitting, regular cuff Systolic blood pressure 128 mm[Hg] 128 mm[Hg] M EDENT ([facility]) sitting, regular cuff Respiratory rate 16 /min 16 /min [facility] ( [facility]) Heart rate 72 /min 72 /min [facility] ([facility]) Regular Body mass index (BMI) [Ratio] 28.8 kg/m2 28.8 k g/m2 [facility] ([facility]) Body height 73 [in_i] 73 [in_i] [facility] ([facility]) 6'1" Body weight 218.00 [lb_av] 218.00 [lb_av] MEDEN T ([facility]) Oxygen saturation in Arterial blood by Pulse oximetry 93 % 93 % [facility] Respiratory rate 18 /min 18 /min [facility] Heart rate 77 /min 77 /min [facility] Body temperature 36.56 Etienne 36.56 Etienne [facility] Diastolic blood pressure 59 mm[Hg] 59 mm[Hg] [facility] Systolic blood pressure 118 mm[Hg] 118 mm[Hg] [facility] Body mass index (BMI) [Ratio] 28.51 kg/m2 28.51 kg/m2 [facility] Body weight 98.022 kg 98.022 kg [facility] Body height 185.4 cm 185.4 cm [facility] Oxygen saturation in Arterial blood by Pulse oximetry 91 % 91 % [facility] Respiratory rate 18 /min 18 /min [facility] Heart rate 74 /min 74 /min [facility] Body temperature 36.89 Etienne 36.89 Etienne [facility] Diastolic blood pressure 55 mm[Hg] 55 mm[Hg] [facility] Systolic blood pressure 109 mm[Hg] 109 mm[Hg] [facility] Body mass index (BMI) [Ratio] 28.22 kg/m2 28.22 kg/m2 [facility] Body weight 96.979 kg 96.979 kg [facility] Body height 185.4 cm 185.4 cm [facility] Oxygen saturation in Arterial blood by Pulse oximetry 97 % 97 % [facility] Body temperature 36.61 Etienne 36.61 Etienne [facility] Heart rate 62 /min 62 /min [facility] Diastolic blood pressure 58 mm[Hg] 58 mm[Hg] [facility] Systolic blood pressure 116 mm[Hg] 116 mm[Hg] [facility] Respiratory rate 18 /min 18 /min [facility] Body mass index (BMI) [Ratio] 29.56 kg/m2 29.56 kg/m2 [facility] Body weight 101.606 kg 101.606 kg [facility] Body height 185.4 cm 185.4 cm [facility] Diastolic blood pressure 72 mm[Hg] 72 mm[Hg] [facility] Systolic blood pressure 118 mm[Hg] 118 mm[Hg] [facility] Oxygen saturation in Arterial blood by Pulse oximetry 96 % 96 % [facility] Body mass index (BMI) [Ratio] 29.42 kg/m2 29.42 kg/m2 [facility] Body weight 101.152 kg 101.152 kg [facility] Body height 185.4 cm 185.4 cm [facility] Heart rate 72 /min 72 /min [facility] Oxygen saturation in Arterial blood by Pulse oximetry 95 % 95 % [facility] Respiratory rate 16 /min 16 /min [facility] Body temperature 36.83 Etienne 36.83 Etienne [facility] Heart rate 59 /min 59 /min [facility] Diastolic blood pressure 74 mm[Hg] 74 mm[Hg] [facility] Systolic blood pressure 144 mm[Hg] 144 mm[Hg] [facility] Body mass index (BMI) [Ratio] 29.73 kg/m2 29.73 kg/m2 [facility] Body weight 102.2 kg 102.2 kg [facility] Body height 185.4 cm 185.4 cm [facility] Diastolic blood pressure 70 mm[Hg] 70 mm[Hg] [facility] ([facility]) sitting Systolic blood pressure 124 mm[Hg] 124 mm[Hg] M EDENT ([facility]) sitting Diastolic blood pressure 70 mm[Hg] 70 mm[Hg] [facility] ([facility]) sitting, regular cuff Systolic blood pressure 128 mm[Hg] 128 mm[Hg] M EDENT ([facility]) sitting, regular cuff Respiratory rate 16 /min 16 /min [facility] ( [facility]) Heart rate 60 /min 60 /min [facility] ([facility]) Regular Body mass index (BMI) [Ratio] 30.7 kg/m2 30.7 k g/m2 [facility] ([facility]) Body height 73 [in_i] 73 [in_i] [facility] ([facility]) 6'1" Body weight 233.00 [lb_av] 233.00 [lb_av] MEDEN T ([facility]) Diastolic blood pressure 66 mm[Hg] 66 mm[Hg] eCW1 ([facility]) Systolic blood pressure 124 mm[Hg] 124 mm[Hg] e CW1 ([facility]) Body temperature 98 [degF] 98 [degF] eCW1 ([facility]) Respiratory rate 18 /min 18 /min eCW1 ([facility]) Heart rate 66 /min 66 /min eCW1 ([facility]) Body mass index (BMI) [Ratio] 32.87 kg/m2 32.87 kg/m2 eCW1 ([facility]) Body height 71.5 [in_us] 71.5 [in_us] eCW1 ([facility]) Body weight Measured 239 [lb_av] 239 [lb_av] eC W1 (Formerly [facility]) ID Date Data Source [id number] 03/28/2020 12:42:58 PM [facility] Value Range Interpretation Code Description Data Source(s) WEIGHT RECORDED 219 lb 219 lb [facility] Body height Measured 72.99 in 72.99 in [facility] ID Date Data Source [id number] 03/18/2020 11:43:29 AM [facility] Value Range Interpretation Code Description Data Source(s) WEIGHT RECORDED 222 lb 222 lb [facility] Body height Measured 72.99 in 72.99 in [facility] ID Date Data Source [id number] 03/11/2020 02:12:44 PM [facility] Value Range Interpretation Code Description Data Source(s) WEIGHT RECORDED 219 lb 219 lb [facility] Body height Measured 72.99 in 72.99 in [facility] ID Date Data Source [id number] 03/04/2020 12:39:41 PM [facility] Value Range Interpretation Code Description Data Source(s) WEIGHT RECORDED 218.8 lb 218.8 lb [facility] Body height Measured 72.99 in 72.99 in [facility] ID Date Data Source [id number] 02/26/2020 05:20:01 PM [facility] Value Range Interpretation Code Description Data Source(s) WEIGHT RECORDED 220 lb 220 lb [facility] ID Date Data Source [id number] 02/19/2020 02:20:43 PM [facility] Name Value Range Interpretation Code Description Data Source(s) WEIGHT RECORDED 219.8 lb 219.8 lb [facility] Body height Measured 72.99 in 72.99 in [facility] ID Date Data Source [id number] 02/12/2020 04:19:35 PM EST [facility] Name Value Range Interpretation Code Description Data Source(s) WEIGHT RECORDED 219 lb 219 lb [facility] Body height Measured 72.99 in 72.99 in [facility] ID Date Data Source [id number] 01/18/2020 07:28:32 AM [facility] Name Value Range Interpretation Code Description Data Source(s) WEIGHT RECORDED 220 lb 220 lb [facility] Body height Measured 73 in 73 in [facility] ID Date Data Source [id number] 12/19/2019 10:36:04 PM EDT [facility] Name Value Range Interpretation Code Description Data Source(s) WEIGHT RECORDED 217.59 lb 217.59 lb [facility] ID Date Data Source [id number] 06/11/2019 11:02:50 AM EDT [facility] Name Value Range Interpretation Code Description Data Source(s) WEIGHT RECORDED 238 lb 238 lb [facility] ID Date Data Source [id number] [facility] Interpretation Code Description Data Source(s) WEIGHT RECORDED 235 lb 235 lb [facility] ID Date Data Source [id number] 05/28/2019 11:54:54 AM EDT [facility] Name Value Range Interpretation Code Description Data Source(s) WEIGHT RECORDED 235 lb 235 lb [facility] Body height Measured 70.47 in 70.47 in [facility] ID Date Data Source [id number] 05/21[facility] Value [facility] Interpretation Code Description Data Source(s) WEIGHT RECORDED 238 lb 238 lb [facility] ID Date Data Source [id number] 05/14/2019 11:05:08 AM EDT [facility] Name Value Range Interpretation Code Description Data Source(s) WEIGHT RECORDED 238 lb 238 lb [facility] Body height Measured 70.47 in 70.47 in [facility] ID Date Data Source [id number] 05/07/2019 10:42:45 AM EDT [facility] Name Value Range Interpretation Code Description Data Source(s) WEIGHT RECORDED 238 lb 238 lb [facility] ID Date Data Source [id number] 05/04/2019 09:28:11 AM [facility] Name Value Range Interpretation Code Description Data Source(s) WEIGHT RECORDED 239.6 lb 239.6 lb [facility] ID Date Data Source [id number] 05/01/2019 07:59:30 AM [facility] Name Value Range Interpretation Code Description Data Source(s) WEIGHT RECORDED 237 lb 237 lb [facility] Body height Measured 70.47 in 70.47 in [facility] Patient Treatment Plan of Care Planned Activity Planned Date Details Description Data Source (s) gemcitabine (GEMZAR) intravesical solution syringe 1,0 00 mg 02/26/2020 12:15:00 PM [facility] ospital DOCEtaxel (TAXOTERE) 37.5 mg in sodium c hloride 0.9 % 50 mL intravesical solution 02/26/2020 12:00:00 AM [facility] DOCEtaxel (TAXOTERE) 37.5 mg in sodium c hloride 0.9 % 50 mL intravesical solution 02/19/2020 11:30:00 AM [facility] gemcitabine (GEMZAR) 1,000 mg in sodium chloride 0.9 % 50 mL (20 mg/mL) intravesical solution 02/12/2020 11:00:00 AM [facility] DOCEtaxel (TAXOTERE) 37.5 mg in sodium c hloride 0.9 % 50 mL intravesical solution 02/12/2020 09:30:00 AM [facility] Calcium Carbonate 1250 MG / Cholecalciferol 125 UNT Or al Tablet 11/20/2019 12:00:00 AM [facility] ospital Tamsulosin hydrochloride 0.4 MG Oral Capsule 11/13/2019 12:00:00 AM [facility] Docusate Sodium 100 MG Oral Capsule 10/24[facility] MG Oral Tablet 10/24/2019 12:00:00 AM EDT [facility] ferrous gluconate 324 MG Oral Tablet 10/15/2019 12:00:00 AM EDT [facility] Acetaminophen 325 MG Oral Tablet 10/02/2019 12:00:00 AM EDT [facility] potassium chloride SA (K-DUR,KLOR-CON) 20 MEQ tablet 12:00:00 AM EDT [facility] Warfarin Sodium 3 MG Oral Tablet 10/02/2019 12:00:00 AM EDT [facility] Folic Acid 1 MG Oral Tablet 09/28/2019 12:00:00 AM EDT [facility] Warfarin Sodium 2 MG Oral Tablet 09/28/2019 12:00:00 AM EDT [facility] potassium chloride SA (K-DUR,KLOR-CON) 10 MEQ tablet 12:00:00 AM EDT [facility] Furosemide 40 MG Oral Tablet 09/28/2019 12:00:00 AM EDT [facility] Folic Acid 1 MG Oral Tablet 09/28/2019 12:00:00 AM EDT [facility] ferrous gluconate 324 MG Oral Tablet 09/28/2019 12:00:00 AM EDT [facility] Albuterol 0.833 MG/ML / Ipratropium [place] 0.167 MG/M L Inhalant Solution 09/28/2019 12:00:00 AM EDT [facility] Metoprolol Tartrate 25 MG Oral Tablet 09/28/2019 12:00:00 AM EDT [facility] Docusate Sodium 100 MG Oral Capsule 09/28/2019 12:00:00 AM EDT [facility] Ascorbic Acid 500 MG Oral Tablet 09/28/2019 12:00:00 AM EDT [facility] Mupirocin 0.02 MG/MG Topical Ointment 09/19/2019 12:00:00 AM EDT [facility] gemcitabine (GEMZAR) 2,000 mg in sodium chloride 0.9 % 100 mL (20 mg/mL) intravesical solution 06/11/2019 10:30:00 AM [facility] Oxybutynin chloride 5 MG Oral Tablet 05/14/2019 12:00:00 AM [facility] gemcitabine (GEMZAR) 2,000 mg in sodium chloride 0.9 % 100 mL (20 mg/mL) intravesical solution 05/07/2019 09:30:00 AM [facility] Tamsulosin hydrochloride 0.4 MG Oral Capsule 04/27/2019 12:00:00 AM [facility] Phenazopyridine hydrochloride 100 MG Oral Tablet 04/05/2019 12:00:0 0 AM [facility] Azelastine HCl 137 MCG/SPRAY 03/05/2019 12:00:00 AM [facility] ([facility]) apixaban 5 MG Oral Tablet [facility] Captopril 25 MG Oral Tablet [facility] Nitroglycerin 0.4 MG Sublingual Tablet [facility] clopidogrel 75 MG Oral Tablet [facility] Enalapril Maleate 5 MG Oral Tablet [facility] Warfarin Sodium 5 MG Oral Tablet [facility] DORZOLAMIDE HCL-TIMOLOL MAL OP [facility]
[2020-04-26] MEDS: METOPROLOL 5 MG/5 ML VIAL IV SCH ×3 (04:10→04:28)
[2020-04-26 06:30] VITALS: BP 131/74
--- NOTE | 2020-04-26 08:03 | ECGEPIP ---
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
--- NOTE | 2020-04-26 08:06 | ECGEPIP ---
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
--- NOTE | 2020-04-27 07:14 | ED PDOC ---
Post-Departure Follow-Up radiology report faxed to Ashly Simmons MD Apr 27, 2020 07:14
== END 2020-04-26 06:55 | disposition home or self-care (01) ==
LOC: M ED 00:40
DX: T82.198A Other mechanical complication of other cardiac electronic device, initial encounter (principal); R94.31 Abnormal electrocardiogram [ECG] [EKG]; I25.10 Atherosclerotic heart disease of native coronary artery without angina pectoris; R91.8 Other nonspecific abnormal finding of lung field; I51.7 Cardiomegaly; Z88.2 Allergy status to sulfonamides; Z91.030 Bee allergy status; Z79.01 Long term (current) use of anticoagulants; Z79.899 Other long term (current) drug therapy

== ENCOUNTER 2020-04-28 02:28 | Inpatient (IN) | payer MEDICARE ==
[~2020-04-28] VITALS: Ht 185.4 cm; Wt 90.9 kg
[~2020-04-28 02:28] MED LIST changes: +DOK1CAP7 PO
[2020-04-28 03:08] LABS: BASO % 0.4 % (0.0-1.0); EOS # 0.3 10^3/uL (0.0-0.5); EOS % 5.3 % (0.0-3.0); HEMATOCRIT 31.2 % (42.0-52.0); HEMOGLOBIN 9.6 g/dl (13.5-17.5); LYMPH # 0.8 10^3/uL (1.5-5.0); LYMPH % 13.5 % (24.0-44.0); MEAN CORPUSCULAR HEMOGLOBIN 22.3 pg (27.0-33.0); MEAN CORPUSCULAR HGB CONC 30.8 g/dl (32.0-36.5); MEAN CORPUSCULAR VOLUME 72.6 fl (80.0-96.0); MONO # 0.5 10^3/uL (0.0-0.8); MONO % 8.7 % (2.0-8.0); NEUTROPHILS % 71.7 % (36.0-66.0); PLATELET COUNT, AUTOMATED 164 10^3/uL (150-450); WHITE BLOOD COUNT 5.6 10^3/uL (4.0-10.0)
[2020-04-28 03:22] LABS: INR 1.23; PROTHROMBIN TIME 15.8 SECONDS (12.5-14.3)
[2020-04-28 03:23] LABS: PARTIAL THROMBOPLASTIN TIME 32.6 SECONDS (24.2-38.5)
--- NOTE | 2020-04-28 03:43 | REPVR ---
PROCEDURE INFORMATION: Exam: XR Chest Exam date and time: 04/28/2020 3:12 AM Age: 84 years old Clinical indication: Chest pain; Type not specified TECHNIQUE: Imaging protocol: XR of the chest Views: 1 view. COMPARISON: CR Chest, 1 view 04/26/2020 1:37 AM FINDINGS: Tubes, catheters and devices: Left-sided pacemaker with leads in satisfactory position. Lungs: Pulmonary venous congestion. No focal infiltrate. Pleural spaces: Unremarkable. No pleural effusion. No pneumothorax. Heart/Mediastinum: Status post atrial appendage closure. Mild cardiomegaly. Diaphragm: Elevated left hemidiaphragm. Bones/joints: Patient is status post median sternotomy. IMPRESSION: 1. Pulmonary venous congestion. 2. No focal infiltrate. Electronically signed by: Bianca Ng On 04/28/2020 03:43:35 AM
[2020-04-28 03:52] LABS: ALBUMIN 3.3 GM/DL (3.2-5.2); ALT/SGPT 24 U/L (12-78); BILIRUBIN,DIRECT 0.3 MG/DL (0.0-0.2); BILIRUBIN,TOTAL 0.7 MG/DL (0.2-1.0); BLOOD UREA NITROGEN 27 MG/DL (7-18); CALCIUM LEVEL 8.6 MG/DL (8.8-10.2); CARBON DIOXIDE LEVEL 28 MEQ/L (21-32); CHLORIDE LEVEL 110 MEQ/L (98-107); CK-MB VALUE MASS < 1.0 NG/ML (<3.6); CPK CREATINE PHOSPHOKINASE 29 U/L (39-308); CREATININE FOR GFR 1.38 MG/DL (0.70-1.30); FREE T4 0.88 NG/DL (0.76-1.46); GLOMERULAR FILTRATION RATE 52.5 (>35); GLUCOSE, FASTING 105 MG/DL (70-100); LIPASE 68 U/L (73-393); MB/CK RELATIVE INDEX 3.45 (< OR =4); NT-PRO BNP 3131 PG/ML (<450); POTASSIUM SERUM 4.4 MEQ/L (3.5-5.1); SODIUM LEVEL 144 MEQ/L (136-145); TOTAL PROTEIN 6.2 GM/DL (6.4-8.2); TROPONIN I 0.02 NG/ML (< 0.10)
[2020-04-28] MEDS ORDERED: ASPIRIN 81 MG CHEW TABLET PO ONE (05:40)
[2020-04-28] MEDS ORDERED: METOPROLOL SUCC *XL* 25MG TAB (TopROL *XL*) PO ONE (05:50)
[2020-04-28] MEDS ORDERED: FUROSEMIDE 20MG/2ML VIAL (J1940) IV ONE (06:05)
[2020-04-28] MEDS ORDERED: URIB118C PO (06:20)
[2020-04-28] MEDS ORDERED: MULT-40 PO (06:20)
[2020-04-28 06:53] LABS: RSV AMPLIFICATION NEGATIVE (NEGATIVE)
[2020-04-28] MEDS ORDERED: TAMSULOSIN 0.4 MG CAP PO SCH (09:00)
[2020-04-28 09:36] VITALS: BP 157/82
[2020-04-28] MEDS ORDERED: ADVAIR HFA 230/21MCG INHALER INH SCH (10:55)
[2020-04-28] MEDS ORDERED: BISOPROLOL FUM 2.5 MG PER 1/2TAB PO ONE (11:30)
[2020-04-28 12:00] VITALS: BP 126/69
[2020-04-28] MEDS ORDERED: METO25TA4 PO (12:59)
[2020-04-28] MEDS ORDERED: OYST1TAB PO (12:59)
[2020-04-28] MEDS ORDERED: IPRAINH INH (12:59)
[2020-04-28] MEDS: DORZOLAMIDE 2% OPHTH SOLN 10 ML BTL OU SCH ×3 (13:00→20:54)
[2020-04-28] MEDS ORDERED: CAPT125TA PO (13:01)
[2020-04-28] MEDS ORDERED: COMB0.2S OU (13:15)
[2020-04-28] MEDS: ATORVASTATIN 20 MG TAB PO SCH (14:17)
[2020-04-28] MEDS: DOCUSATE SODIUM 100MG CAPSULE PO SCH ×2 (14:17→20:53)
[2020-04-28] MEDS: TIMOLOL MALEATE 0.5% OPHTH SOLN 5 ML OU SCH ×2 (14:18→20:54)
[2020-04-28] MEDS: FLUTICASONE PROP 0.05% NASAL SPRAY 16 GM (FLONASE) SCH (14:18)
[2020-04-28] MEDS: SLF 3 ML SYR IV SCH ×2 (14:19→20:54)
[2020-04-28] MEDS ORDERED: LEVALBUTEROL 1.25 MG/0.5 ML CONCENTRATE NEB INH PRN (14:20)
[2020-04-28] MEDS: TAMSULOSIN 0.4 MG CAP PO SCH ×2 (14:40→20:53)
[2020-04-28] MEDS: CAPTOpril 12.5 MG TAB PO SCH ×2 (14:41→20:53)
[2020-04-28] MEDS: APIXABAN 5 MG TAB (ELIQUIS) PO SCH ×2 (14:41→20:53)
[2020-04-28] MEDS: TIOTROPIUM INHALER/CAPSULE (SPIRIVA) INH SCH (15:47)
[2020-04-28 16:00] VITALS: BP 115/60
--- NOTE | 2020-04-28 16:05 | HPEPDOC ---
General Date of Admission Apr 28, 2020 at 07:56 Date of Service: Apr 28, 2020 Chief Complaint The patient is a 84-year-old male admitted with a reason for visit of Atrial Fibrillation Chronic Pacemaker Malfunction. Source: Patient, RN/MD History of Present Illness 84 year old male with h/o Afib , SSS with pacemaker, CAD s/p CABG in 2019 and stents in the past, vertigo, basilar artery insufficiency, bladder cancer this is his second visit to ED this week. On 04/26 he came in for racing heart and chest pain . He was in Afib with rvr he was given metoprolol in the ED with c ontrol of heart rate and resolution of symptoms so was dced home he comes back this morning with complaints of SOB and irregular heart beat and palpitations for about 6 hours. He reports that minimal activity is making him winded and he has been taking his inhaler as prescribed. He also complained of increased swelling of his legs in the ED he was noted to have abnormal heart rhythm and some lack of firm capture of the pacemaker spikes at baseline. He has a RBBB and atrial fibrillation. He was having some rapid ventricular response. He was admitted for congestive heart failure exacerbation and A. fib with RVR and Intermittent abnormal cardiac heart rhythm. Home Medications Scheduled Apixaban (Eliquis) 5 Mg Tablet, 5 MG PO BID, (Reported) Aspirin (Aspirin) 81 Mg Tab.chew, 81 MG PO DAILY, (Reported) Atorvastatin Calcium (Atorvastatin Calcium) 20 Mg Tab, 20 MG PO DAILY, ( Reported) Brimonidine Tartrate/Timolol (Combigan 0.2%-0.5% Eye Drops) 5 Ml Drops, 1 DROP OU BID, (Reported) Calcium Carbonate (Calcium) 500 Mg Tablet, 500 MG PO DAILY, (Reported) Captopril (Captopril) 12.5 Mg Tablet, 12.5 MG PO BID, (Reported) Docusate Sodium (Dok) 100 Mg Capsule, 100 MG PO BID, (Reported) Fluticasone Propionate (Flonase Allergy Relief) 50 Mcg/Act Spr, 1 PUFF NA DAILY, (Reported) Meth/Meblue/Sod Phos/Psal/Hyos (Uribel Capsule) 1 Each Capsule, 1 CAP PO DAILY, (Reported) Metoprolol Tartrate (Metoprolol Tartrate) 25 Mg Tablet, 12.5 MG PO BID, (Reported) Multivitamin (Multivitamins) 1 Each Tablet, 1 TAB PO DAILY, (Reported) Tamsulosin HCl (Flomax) 0.4 Mg Capsule, 0.4 MG PO BID, (Reported) Scheduled PRN Ipratropium [place] (Atrovent Hfa) 12.9 Gm Hfa.aer.ad, 2 PUFF INH TID PRN for SHORTNESS OF BREATH, (Reported) Allergies Coded Allergies: Sulfa (Sulfonamide Antibiotics) (Verified Allergy, Intermediate, HIVES- BLOOD PRESSURE MED, 04/28/20) bee venom protein (honey bee) (Verified Allergy, Intermediate, HIVES, 04/28/20) hornet venom (Verified Allergy, Intermediate, HIVES, 04/28/20) Past Medical History Medical History Chronic A fib Sick Sinus syndrome s/p pacemeker in 2018 HTN CAD s/p CABG in 2019, Stent in the past. 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 Family History FATHER: 60 YRS, UNKNOWN MOTHER: 40 YRS, IN FIRE SIBLINGS: DIABETES 2DAUGHTER(S) - HEALTHY. 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 * Smoker: former Smoker Alcohol: Denies Drugs: denies A-FIB/CHADSVASC A-FIB History Current/History of A-Fib/PAF?: Yes Current PO Anticoag Therapy: Yes Review of Systems Constitutional: Denies: Chills, Fever, Night Sweats Eyes: Denies: Pain, Vision change ENT: Denies: Head Aches, Ear Pain, Dysphagia Skin: Denies: Rash, Lesions, Breakdown Pulmonary: Reports: Dyspnea Cardiovascular: Reports: Chest Pain, Palpitations Gastrointestinal: Denies: Nausea, Vomiting, Abdominal Pain, Diarrhea Genitourinary: Reports: Other Symptoms (greenish colored urine); Denies: Dysuria, Frequency, Incontinence, Retention Hematologic: Denies: Bruising, Bleeding Excessively Musculoskeletal: Reports: Back Pain, Joint Pain; Denies: Neck Pain, Muscle Pain, Spasms Physical Examination General Exam: Positive: Alert, Cooperative, No Acute Distress, Other (Has purse d lip breathing going on. ) Eye Exam: Positive: PERRLA, Conjunctiva & lids normal, EOMI; Negative: Sclera icteric ENT Exam: Positive: Atraumatic, Mucous membr. moist/pink, Pharynx Normal Neck Exam: Positive: Supple, JVD; Negative: thyromegaly Chest Exam: Positive: Diminished, Other (bilateral basal crackles) Heart Exam: Positive: Tachycardic, Irregular Rhythm Telemetry: Positive: Atrial fibrillation, PVCs, Other Telemetry: (RBBB) Abdomen Exam: Positive: Normal bowel sounds, Soft; Negative: Tenderness, Hepatospenomegaly Extremity Exam: Positive: Edema; Negative: Clubbing, Cyanosis Neuro Exam: Positive: Normal Speech, Strength at 5/5 X4 ext, Normal Tone Vital Signs Vital Signs Date Time Temp Pulse Resp B/P (MAP) Pulse Ox O2 Delivery O2 Flow Rate FiO2 04/28/20 09:36 97.3 92 18 157/82 (107) 92 04/28/20 09:00 Room Air 04/28/20 07:00 2.0 Laboratory Data Labs 24H Laboratory Tests 2 04/28/20 02:59: Immature Granulocyte % (Auto) 0.4, Neutrophils (%) (Auto) 71.7H, Lymphocytes (%) (Auto) 13.5L, Monocytes (%) (Auto) 8.7H, Eosinophils (%) (Auto) 5.3H, Basophils (%) (Auto) 0.4, Neutrophils # (Auto) 4.0, Lymphocytes # (Auto) 0.8L, Monocytes # (Auto) 0.5, Eosinophils # (Auto) 0.3, Basophils # (Auto) 0.0, Nucleated Red Blood Cells % (auto) 0.0, Prothrombin Time 15.8H, Prothromb Time International Ratio 1.23, Activated Partial Thromboplast Time 32.6, Anion Gap 6L, Glomerular Filtration Rate 52.5, Calcium Level 8.6L, Total Bilirubin 0.7, Direct Bilirubin 0.3H, Aspartate Amino Transf (AST/SGOT) 14, Alanine Aminotransferase (ALT/SGPT) 24, Alkaline Phosphatase 91, Total Creatine Kinase 29L, Creatine Kinase MB < 1.0, Creatine Kinase MB Relative Index 3.45, Troponin I 0.02, IG-Epk-Z-Type Natriuretic Peptide 3131H, Total Protein 6.2L, Albumin 3.3, Albumin/Globulin Rat io 1.1, Lipase 68L, Thyroid Stimulating Hormone (TSH) 3.000, Free Thyroxine 0.88 04/28/20 06:05: Coronavirus (COVID-19)(PCR) NEGATIVE, Influenza Type A (RT-PCR) NEGATIVE, Influenza Type B (RT-PCR) NEGATIVE, Respiratory Syncytial Virus (PCR) NEGATIVE CBC/BMP Laboratory Tests 04/28/20 02:59 Microbiology Microbiology 04/28/20 Respiratory Virus Panel (PCR) (BRITTNEY) - Final, Complete Assessment/Plan 84 year old male with h/o Afib , SSS with pacemaker, CAD s/p CABG in 2019 and stents in the past, vertigo, basilar artery insufficiency, bladder cancer this is his second visit to ED this week. On 04/26 he came in for racing heart and chest pain . He was in Afib with rvr he was given metoprolol in the ED with control of heart rate and resolution of symptoms so was dced home he comes back this morning with complaints of SOB and irregular heart beat and palpitations for about 6 hours. He reports that minimal activity is making him winded and he has been taking his inhaler as prescribed. He also complained of increased swelling of his legs in the ED he was noted to have abnormal heart rhythm and some lack of firm capture of the pacemaker spikes at baseline. He has a RBBB and atrial fibrillation. He was having some rapid ventricular response. He was admitted for congestive heart failure exacerbation and A. fib with RVR and Intermittent abnormal cardiac heart rhythm. Congestive heart failure exacerbation I do not have any recent echo in the system. The last echo was from 2012 when his EF was 55%. He had moderate pulmonary hypertension, right heart failure and diastolic dysfunction. Will order new echo. Will start the patient on IV Lasix. 2 g sodium diet, daily weight, intake and output, fluid restrictions, 1500 mL Cardiac arrhythmia Patient has history of sick sinus syndrome and A. fib, RBBB at baseline,. Patient has a pacemaker in place, looks like all the spikes of the pacemaker not capturing. Cardiology has been consulted and the pacemaker company is coming to interrogate the pacemaker Discussed with the will stop metoprolol and start him on low-dose because bisoprolol Continue captopril Chronic A fib Bisoprolol for rate control. Continue her liquids HTN Continue captopril and bisoprolol CAD s/p CABG in 2019, Stent in the past. Aspirin Beta juan daniel, statin COPD Uses on the ipratropium inhaler several times a day at home. We will start the patient on Spiriva in the hospital and put him on albuterol when necessary HYPERLIPIDEMIA Statin DEPRESSION Home meds Bladder cancer BPH Flomax twice a day Glaucoma home eyedrops Plan / VTE VTE Prophylaxis Ordered?: Yes ASHLY CORBETT MD Apr 28, 2020 12:12
[2020-04-28] MEDS: FUROSEMIDE 40MG/4ML VIAL (J1940) IV SCH (17:09)
--- NOTE | 2020-04-28 19:20 | ECGEPIP ---
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
--- NOTE | 2020-04-28 19:33 | ECGEPIP ---
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
[2020-04-28 20:00] VITALS: BP 101/57
[2020-04-29] VITALS: BP 117/58
[2020-04-29 04:00] VITALS: BP 127/61
[2020-04-29 05:16] LABS: BASO % 0.4 % (0.0-1.0); EOS # 0.1 10^3/uL (0.0-0.5); EOS % 2.3 % (0.0-3.0); HEMOGLOBIN 9.1 g/dl (13.5-17.5); LYMPH # 0.7 10^3/uL (1.5-5.0); LYMPH % 12.7 % (24.0-44.0); MEAN CORPUSCULAR HGB CONC 30.3 g/dl (32.0-36.5); MEAN CORPUSCULAR VOLUME 72.6 fl (80.0-96.0); MONO # 0.5 10^3/uL (0.0-0.8); MONO % 9.1 % (2.0-8.0); NEUTROPHILS % 75.1 % (36.0-66.0); PLATELET COUNT, AUTOMATED 170 10^3/uL (150-450); RED BLOOD COUNT 4.13 10^6/uL (4.30-6.10); WHITE BLOOD COUNT 5.3 10^3/uL (4.0-10.0)
[2020-04-29] MEDS: SLF 3 ML SYR IV SCH ×3 (05:37→21:00)
[2020-04-29 05:44] LABS: CALCIUM LEVEL 8.5 MG/DL (8.8-10.2); CREATININE FOR GFR 1.53 MG/DL (0.70-1.30); GLOMERULAR FILTRATION RATE 46.6 (>35); POTASSIUM SERUM 4.2 MEQ/L (3.5-5.1)
[2020-04-29 07:23] VITALS: BP 139/64
[2020-04-29] MEDS: TIOTROPIUM INHALER/CAPSULE (SPIRIVA) INH SCH (07:33)
[2020-04-29] MEDS: SLF 3 ML SYR IV PRN ×2 (08:30→16:22)
[2020-04-29] MEDS: TIMOLOL MALEATE 0.5% OPHTH SOLN 5 ML OU SCH ×2 (09:00→20:46)
[2020-04-29] MEDS: FLUTICASONE PROP 0.05% NASAL SPRAY 16 GM (FLONASE) SCH (09:21)
[2020-04-29] MEDS: ASPIRIN 81 MG CHEW TABLET PO SCH (09:22)
[2020-04-29] MEDS: FUROSEMIDE 40MG/4ML VIAL (J1940) IV SCH ×2 (09:22→16:22)
[2020-04-29] MEDS: DOCUSATE SODIUM 100MG CAPSULE PO SCH ×2 (09:22→20:45)
[2020-04-29] MEDS: ATORVASTATIN 20 MG TAB PO SCH (09:23)
[2020-04-29] MEDS: TAMSULOSIN 0.4 MG CAP PO SCH ×2 (09:23→20:44)
[2020-04-29] MEDS: CAPTOpril 12.5 MG TAB PO SCH ×2 (09:23→20:45)
[2020-04-29] MEDS: APIXABAN 5 MG TAB (ELIQUIS) PO SCH ×2 (09:23→20:45)
[2020-04-29] MEDS: DORZOLAMIDE 2% OPHTH SOLN 10 ML BTL OU SCH ×2 (09:24→20:46)
[2020-04-29] MEDS: BISOPROLOL FUM 2.5 MG PER 1/2TAB PO SCH (09:28)
--- NOTE | 2020-04-29 10:52 | IPNPDOC ---
Text Note Date of Service The patient was seen on 04/29/20. NOTE Subjective: Patient seen and examined at bedside. No acute overnight events reported. Patient has no new medical complaints this morning. States he is feeling much better. He is using supplemental oxygen and states he does not use supplemental oxygen at home. Objective: General: NAD, sitting comfortably in chair HEENT: NC/AT, EOMI Lungs: CTA B/L HEart: +S1S2, RRR Abd: soft, NT, +BS Ext: no edema A/P: 84 year old male with h/o Afib , SSS with pacemaker, CAD s/p CABG in 2019 and stents in the past, vertigo, basilar artery insufficiency, bladder cancer this is his second visit to ED this week. On 04/26 he came in for racing heart and chest pain . He was in Afib with rvr he was given metoprolol in the ED with control of heart rate and resolution of symptoms so was dced home he comes back this morning with complaints of SOB and irregular heart beat and palpitations for about 6 hours. He reports that minimal activity is making him winded and he has been taking his inhaler as prescribed. He also complained of increased swelling of his legs in the ED he was noted to have abnormal heart rhythm and some lack of firm capture of the pacemaker spikes at baseline. He has a RBBB and atrial fibrillation. He was having some rapid ventricular response. He was admitted for congestive heart failure exacerbation and A. fib with RVR and Intermittent abnormal cardiac heart rhythm. #Congestive heart failure exacerbation - last echo from 2012 - EF 55%, moderate pulmonary hypertension, right heart failure and diastolic dysfunction - repeat echo pending - IV Lasix. - 2 g sodium diet, daily weight, intake and output, fluid restrictions, 1500 mL #Cardiac arrhythmia Patient has history of sick sinus syndrome and A. fib, RBBB at baseline,. Patient has a pacemaker in place, looks like all the spikes of the pacemaker not capturing. Cardiology has been consulted and the pacemaker company is coming to interrogate the pacemaker Discussed with the will stop metoprolol and start him on low-dose bisoprolol Continue captopril #Chronic A fib Bisoprolol for rate control. Continue her liquids #HTN Continue captopril and bisoprolol #CAD s/p CABG in 2019, Stent in the past. Aspirin Beta juan daniel, statin #COPD Uses on the ipratropium inhaler several times a day at home. We will start the patient on Spiriva in the hospital and put him on albuterol when necessary #HYPERLIPIDEMIA Statin #DEPRESSION Home meds #Bladder cancer #BPH Flomax twice a day #Glaucoma home eyedrops Dispo: wean O2, PT/OT, cardiology f/u VS,Fishbone, I+O VS, Fishbone, I+O Laboratory Tests 04/29/20 04:43 Vital Signs Date Time Temp Pulse Resp B/P (MAP) Pulse Ox O2 Delivery O2 Flow Rate FiO2 04/29/20 09:28 63 139/64 04/29/20 07:23 96.6 18 94 04/29/20 04:00 2.0 04/28/20 09:00 Room Air I&O- Last 24 Hours up to 6 AM 04/29/20 06:00 Intake Total 1090 ml Output Total 2360 ml Balance -1270 ml DIANNA LAM MD Apr 29, 2020 10:52
[2020-04-29 12:00] VITALS: BP 98/54
--- NOTE | 2020-04-29 13:59 | ECHO ---
DATE OF PROCEDURE: 04/28/2020 Age: 84 Gender: Male Height: 185 cm Weight: 91 kg REFERRING PHYSICIAN: Heaven Reyes MD. INDICATION: Heart failure, unspecified. MEASUREMENTS: 2D Measurements: Intraventricular septum 0.80 cm Posterior wall 0.96 cm Left ventricle diastole 6.2 cm Aortic root 3.2 cm Left atrium 4.7 cm Left atrial volume index 49 cm Right ventricle 6.4 cm Inferior vena cava 2.3 cm with marked reduction of respiratory variation Doppler Measurements: Mild-moderate aortic regurgitation No aortic stenosis Aortic valve velocity 138 cm/s LVOT velocity 101 cm/s LVOT VTI 19.3 cm Moderate mitral regurgitation Mitral E velocity 93.0 cm/s Mitral A velocity 42.4 cm/s Mitral deceleration time 148 msec Trace tricuspid regurgitation Mild pulmonic regurgitation Pulmonary acceleration time 95 msec MITRAL ANNULAR TISSUE DOPPLER E prime septal 5.1 cm/s, E prime lateral 7.1 cm/s DESCRIPTION: Rhythm appeared to be predominantly AV paced rhythm. This was a moderately technically difficult echocardiogram. This was a 2D, M-mode, color flow Doppler, and pulsed wave Doppler examination including mitral annular tissue Doppler. CONCLUSIONS: 1. Mildly dilated left ventricle at end-diastole with normal LV wall thickness. Mild paradoxical septal motion with normal wall motion and wall thickening. Normal overall LV systolic function. LVEF 60% by visual estimate. Grade 2 LV diastolic dysfunction (pseudonormal LV diastolic filling time). 2. Severe left atrial dilatation by left atrial volume index. 3. Mild mitral annular calcification. Moderate mitral regurgitation. No mitral valve prolapse. No flail segments. 4. Mild aortic valve sclerosis of a 3-cuspid aortic valve. Mild-moderate aortic regurgitation. 5. Suggestive of mild elevation of pulmonary artery systolic pressure. Severe right ventricle dilatation. Normal right ventricle systolic function. Severe right atrial dilatation. 6. Dilated coronary sinus suggestive of chronically elevated right atrial pressure. 7. Inferior vena cava plethora with marked reduction of respiratory variation. Suggestive of elevated central venous pressure of at least 20 mmHg. 8. Presence of endocardial, right atrial, and right ventricle pacemaker leads. 9. No pericardial effusion. 10. Moderately technically difficult echocardiogram. [facility]
[2020-04-29 16:00] VITALS: BP 107/53
[2020-04-29 20:00] VITALS: BP 110/57
[2020-04-30] VITALS: BP 108/55
[2020-04-30 04:00] VITALS: BP 112/56
[2020-04-30 04:35] LABS: BASO % 0.4 % (0.0-1.0); EOS # 0.2 10^3/uL (0.0-0.5); EOS % 4.5 % (0.0-3.0); HEMATOCRIT 29.1 % (42.0-52.0); LYMPH # 0.8 10^3/uL (1.5-5.0); LYMPH % 15.2 % (24.0-44.0); MEAN CORPUSCULAR HEMOGLOBIN 22.4 pg (27.0-33.0); MEAN CORPUSCULAR HGB CONC 30.9 g/dl (32.0-36.5); MEAN CORPUSCULAR VOLUME 72.6 fl (80.0-96.0); MONO # 0.6 10^3/uL (0.0-0.8); MONO % 10.9 % (2.0-8.0); NEUTROPHILS # 3.7 10^3/uL (1.5-8.5); NEUTROPHILS % 68.4 % (36.0-66.0); PLATELET COUNT, AUTOMATED 145 10^3/uL (150-450); RED BLOOD COUNT 4.01 10^6/uL (4.30-6.10); WHITE BLOOD COUNT 5.4 10^3/uL (4.0-10.0)
[2020-04-30 04:55] LABS: CALCIUM LEVEL 8.2 MG/DL (8.8-10.2); CREATININE FOR GFR 1.68 MG/DL (0.70-1.30); GLOMERULAR FILTRATION RATE 41.9 (>35); MAGNESIUM LEVEL 1.9 MG/DL (1.8-2.4)
[2020-04-30] MEDS: SLF 3 ML SYR IV SCH (05:28)
[2020-04-30] MEDS: TIOTROPIUM INHALER/CAPSULE (SPIRIVA) INH SCH (07:41)
[2020-04-30 08:00] VITALS: BP 100/53
[2020-04-30 08:16] VITALS: BP 100/53
[2020-04-30] MEDS: BISOPROLOL FUM 2.5 MG PER 1/2TAB PO SCH (08:16)
[2020-04-30] MEDS: DORZOLAMIDE 2% OPHTH SOLN 10 ML BTL OU SCH (08:23)
[2020-04-30] MEDS: ATORVASTATIN 20 MG TAB PO SCH (08:23)
[2020-04-30] MEDS: APIXABAN 5 MG TAB (ELIQUIS) PO SCH (08:23)
[2020-04-30] MEDS: ASPIRIN 81 MG CHEW TABLET PO SCH (08:23)
[2020-04-30] MEDS: DOCUSATE SODIUM 100MG CAPSULE PO SCH (08:23)
[2020-04-30] MEDS: TIMOLOL MALEATE 0.5% OPHTH SOLN 5 ML OU SCH (08:23)
[2020-04-30] MEDS: FLUTICASONE PROP 0.05% NASAL SPRAY 16 GM (FLONASE) SCH (08:23)
[2020-04-30] MEDS: TAMSULOSIN 0.4 MG CAP PO SCH (08:23)
[2020-04-30] MEDS ORDERED: LASI20TA3 PO (10:20)
[2020-04-30 12:00] VITALS: BP 115/72
--- NOTE | 2020-05-01 10:26 | DS.PDOC ---
Discharge Summary General Date of Admission Apr 28, 2020 at 07:56 Date of Discharge 04/30/20 Specialist/Consultants Involve cardiology - dr adame Discharge Summary PROCEDURES PERFORMED DURING STAY: [None]. DISCHARGE DIAGNOSES: #HFrEF - EF 35% SECONDARY DIAGNOSES: Chronic A fib Sick Sinus syndrome s/p pacemeker in 2018 HTN CAD s/p CABG in 2019, Stent in the past. 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 HISTORY OF PRESENT ILLNESS: 84 year old male with h/o Afib , SSS with pacemaker, CAD s/p CABG in 2019 and stents in the past, vertigo, basilar artery insufficiency, bladder cancer this is his second visit to ED this week. On 04/26 he came in for racing heart and chest pain . He was in Afib with rvr he was given metoprolol in the ED with control of heart rate and resolution of symptoms so was dced home he comes back this morning with complaints of SOB and irregular heart beat and palpitations for about 6 hours. He reports that minimal activity is making him winded and he has been taking his inhaler as prescribed. He also complained of increased swelling of his legs in the ED he was noted to have abnormal heart rhythm and some lack of firm capture of the pacemaker spikes at baseline. He has a RBBB and atrial fibrillation. He was having some rapid ventricular response. He was admitted for congestive heart failure exacerbation and A. fib with RVR and Inter mittent abnormal cardiac heart rhythm. HOSPITAL COURSE: #Congestive heart failure exacerbation - last echo from 2012 - EF 55%, moderate pulmonary hypertension, right heart failure and diastolic dysfunction - repeat echo obtained - responded well to IV Lasix. - 2 g sodium diet, daily weight, intake and output, fluid restrictions, 1500 mL #Cardiac arrhythmia Patient has history of sick sinus syndrome and A. fib, RBBB at baseline,. Patient has a pacemaker in place, looks like all the spikes of the pacemaker not capturing. Cardiology has been consulted and the pacemaker company has interrogated the pacemaker Discussed with the - switched to low-dose bisoprolol Continue captopril - discussed with cardiology - recs for discharge home with outpatient follow up #Chronic A fib Bisoprolol for rate control #HTN Continue captopril and bisoprolol #CAD s/p CABG in 2019, Stent in the past. Aspirin Beta juan daniel, statin #COPD Uses on the ipratropium inhaler several times a day at home. We will start the patient on Spiriva in the hospital and put him on albuterol when necessary #HYPERLIPIDEMIA Statin #DEPRESSION Home meds #Bladder cancer #BPH Flomax twice a day #Glaucoma home eyedrops DISCHARGE MEDICATIONS: Please see below. ALLERGIES: Please see below. PHYSICAL EXAMINATION ON DISCHARGE: VITAL SIGNS: Please see below. General: NAD, sitting comfortably in chair HEENT: NC/AT, EOMI Lungs: CTA B/L HEart: +S1S2, RRR Abd: soft, NT, +BS Ext: no edema LABORATORY DATA: Please see below. ACTIVITY: [As tolerated]. DISPOSITION: Home, Self-Care. DISCHARGE INSTRUCTIONS: 1. Follow up with PCP in 3-5 days. 2. Follow up with cardiology in 3-5 days DISCHARGE CONDITION: [Stable]. TIME SPENT ON DISCHARGE: 35 minutes. Vital Signs/I&Os Vital Signs Date Time Temp Pulse Resp B/P (MAP) Pulse Ox O2 Delivery O2 Flow Rate FiO2 04/30/20 12:00 98.1 60 20 115/72 (86) 93 Room Air 04/30/20 08:00 2.0 I&O- Last 24 Hours up to 6 AM 05/01/20 06:00 Intake Total 240 ml Output Total 100 ml Balance 140 ml Microbiology Microbiology 04/28/20 Respiratory Virus Panel (PCR) (BRITTNEY) - Final, Complete Discharge Medications Scheduled Apixaban (Eliquis) 5 Mg Tablet, 5 MG PO BID, (Reported) Aspirin (Aspirin) 81 Mg Tab.chew, 81 MG PO DAILY, (Reported) Atorvastatin Calcium (Atorvastatin Calcium) 20 Mg Tab, 20 MG PO DAILY, (Reported) Brimonidine Tartrate/Timolol (Combigan 0.2%-0.5% Eye Drops) 5 Ml Drops, 1 DROP OU BID, (Reported) Calcium Carbonate (Calcium) 500 Mg Tablet, 500 MG PO DAILY, (Reported) Captopril (Captopril) 12.5 Mg Tablet, 12.5 MG PO BID, (Reported) Docusate Sodium (Dok) 100 Mg Capsule, 100 MG PO BID, (Reported) Fluticasone Propionate (Flonase Allergy Relief) 50 Mcg/Act Spr, 1 PUFF NA DAILY, (Reported) Furosemide (Lasix) 20 Mg Tablet, 1 TAB PO DAILY Meth/Meblue/Sod Phos/Psal/Hyos (Uribel Capsule) 1 Each Capsule, 1 CAP PO DAILY, (Reported) Metoprolol Tartrate (Metoprolol Tartrate) 25 Mg Tablet, 12.5 MG PO BID, (Reported) Multivitamin (Multivitamins) 1 Each Tablet, 1 TAB PO DAILY, (Reported) Tamsulosin HCl (Flomax) 0.4 Mg Capsule, 0.4 MG PO BID, (Reported) Scheduled PRN Ipratropium Gordon (Atrovent Hfa) 12.9 Gm Hfa.aer.ad, 2 PUFF INH TID PRN for SHORTNESS OF BREATH, (Reported) Allergies Coded Allergies: Sulfa (Sulfonamide Antibiotics) (Verified Allergy, Intermediate, HIVES- BLOOD PRESSURE MED, 04/28/20) bee venom protein (honey bee) (Verified Allergy, Intermediate, HIVES, 04/28/20) hornet venom (Verified Allergy, Intermediate, HIVES, 04/28/20) DIANNA LAM MD May 01, 2020 10:26
== END 2020-04-30 14:40 | disposition home or self-care (01) | DRG 292 ==
LOC: M ED 02:28 → M ED INP 07:56 → M PCU 09:29
PROVIDERS: ADMIT Internal Medicine Nephrology; ATTEND Internal Medicine
DX: I11.0 Hypertensive heart disease with heart failure (principal); I48.20 Chronic atrial fibrillation, unspecified; G45.0 Vertebro-basilar artery syndrome; T82.198A Other mechanical complication of other cardiac electronic device, initial encounter; I50.33 Acute on chronic diastolic (congestive) heart failure; R94.31 Abnormal electrocardiogram [ECG] [EKG]; I25.10 Atherosclerotic heart disease of native coronary artery without angina pectoris; R91.8 Other nonspecific abnormal finding of lung field; Z88.2 Allergy status to sulfonamides; Z91.030 Bee allergy status; Z79.01 Long term (current) use of anticoagulants; Z79.899 Other long term (current) drug therapy; Z95.0 Presence of cardiac pacemaker; M19.90 Unspecified osteoarthritis, unspecified site; N40.0 Benign prostatic hyperplasia without lower urinary tract symptoms; Z95.2 Presence of prosthetic heart valve; J44.9 Chronic obstructive pulmonary disease, unspecified; E78.5 Hyperlipidemia, unspecified; K57.30 Diverticulosis of large intestine without perforation or abscess without bleeding; F32.9 Major depressive disorder, single episode, unspecified; I27.20 Pulmonary hypertension, unspecified; Z85.51 Personal history of malignant neoplasm of bladder; Z79.82 Long term (current) use of aspirin; Y83.1 Surgical operation with implant of artificial internal device as the cause of abnormal reaction of the patient, or of later complication, without mention of misadventure at the time of the procedure; H40.9 Unspecified glaucoma

== ENCOUNTER 2020-05-02 23:41 | Emergency (ER) | payer MEDICARE ==
[~2020-05-02] VITALS: Ht 182.9 cm; Wt 97.7 kg
[~2020-05-02 23:41] MED LIST changes: +CAPT125TA PO; +COMB0.2S OU; +IPRAINH INH; +LASI20TA3 PO; +METO25TA4 PO; +MULT-40 PO; +OYST1TAB PO; +URIB118C PO
[2020-05-03 00:25] LABS: BASO % 0.4 % (0.0-1.0); EOS # 0.3 10^3/uL (0.0-0.5); EOS % 6.5 % (0.0-3.0); HEMATOCRIT 32.3 % (42.0-52.0); HEMOGLOBIN 9.9 g/dl (13.5-17.5); LYMPH # 0.8 10^3/uL (1.5-5.0); LYMPH % 17.7 % (24.0-44.0); MEAN CORPUSCULAR HEMOGLOBIN 22.3 pg (27.0-33.0); MEAN CORPUSCULAR HGB CONC 30.7 g/dl (32.0-36.5); MEAN CORPUSCULAR VOLUME 72.9 fl (80.0-96.0); MONO # 0.5 10^3/uL (0.0-0.8); MONO % 10.1 % (2.0-8.0); NEUTROPHILS # 2.9 10^3/uL (1.5-8.5); NEUTROPHILS % 64.9 % (36.0-66.0); PLATELET COUNT, AUTOMATED 160 10^3/uL (150-450); RED BLOOD COUNT 4.43 10^6/uL (4.30-6.10); WHITE BLOOD COUNT 4.5 10^3/uL (4.0-10.0)
--- NOTE | 2020-05-03 00:56 | REPVR ---
PROCEDURE INFORMATION: Exam: XR Chest Exam date and time: 05/03/2020 12:47 AM Age: 84 years old Clinical indication: Other: Chest pain TECHNIQUE: Imaging protocol: XR of the chest Views: 1 view. COMPARISON: CR PORTABLE CHEST X-RAY 04/28/2020 3:11 AM FINDINGS: Tubes, catheters and devices: Pacemaker from the left is again noted. Lungs: Coarse interstitium which is similar. There are no interval infiltrates. Pleural spaces: Unremarkable. No pleural effusion. No pneumothorax. Heart/Mediastinum: Mild cardiomegaly. Left atrial appendage exclusion device is again noted. Diaphragm: Slight elevation of the left hemidiaphragm which is similar. Bones/joints: Status post sternotomy. IMPRESSION: There has been little change from 04/28/2020. Electronically signed by: Darnell Carvajal On 05/03/2020 00:56:31 AM
[2020-05-03 00:58] LABS: BLOOD UREA NITROGEN 39 MG/DL (7-18); CARBON DIOXIDE LEVEL 32 MEQ/L (21-32); CHLORIDE LEVEL 107 MEQ/L (98-107); CK-MB VALUE MASS < 1.0 NG/ML (<3.6); CPK CREATINE PHOSPHOKINASE 35 U/L (39-308); CREATININE FOR GFR 1.58 MG/DL (0.70-1.30); FREE T4 0.92 NG/DL (0.76-1.46); GLOMERULAR FILTRATION RATE 44.9 (>35); GLUCOSE, FASTING 115 MG/DL (70-100); MB/CK RELATIVE INDEX 2.86 (< OR =4); NT-PRO BNP 2413 PG/ML (<450); POTASSIUM SERUM 4.2 MEQ/L (3.5-5.1); SODIUM LEVEL 141 MEQ/L (136-145); TROPONIN I < 0.02 NG/ML (< 0.10)
[2020-05-03 02:35] LABS: APPEARANCE, URINE CLEAR (CLEAR); BACTERIA, URINE AUTO NEGATIVE (NEGATIVE); BILIRUBIN, URINE AUTO NEGATIVE (NEGATIVE); BLOOD, URINE BLOOD NEGATIVE (NEGATIVE); COLOR, URINE YELLOW (YELLOW); GLUCOSE, URINE (UA) AUTO NEGATIVE (NEGATIVE); KETONE, URINE AUTO NEGATIVE (NEGATIVE); LEUKOCYTE ESTERASE, URINE AUTO TRACE (NEGATIVE); NITRITE, URINE AUTO NEGATIVE (NEGATIVE); PROTEIN, URINE AUTO NEGATIVE (NEGATIVE); RBC, URINE AUTO 2 /HPF (0-3); SPECIFIC GRAVITY URINE AUTO 1.015 (1.002-1.035); SQUAMOUS EPITHELIAL CELL UR AU 0 /HPF (0-6); UROBILINOGEN, URINE AUTO 0.2 mg/dL (0.0-2.0); WBC, URINE AUTO 11 /HPF (0-3)
[2020-05-03] MEDS ORDERED: DIGOXIN INJ 0.5 MG/2 ML AMP (J1160) IV ONE (03:10)
[2020-05-03] MEDS ORDERED: DIGOXIN 0.25 MG TAB PO ONE (03:10)
[2020-05-03 03:14] VITALS: BP 147/78
--- NOTE | 2020-05-03 16:02 | ECGEPIP ---
[facility] - ED Test Date: 2020-05-03 Pat Name: ODIN SEQUEIRA Department: Room: - Gender: Male Tiller Man: MARIE : 1935 Requested By: RIANA Ashley Order Number: [id number] Reading MD: Stephen Choi Measurements Intervals [place] Rate: 90 P: [place]: QRS: -72 QRSD: 174 T: 98 QT: 430 QTc: 526 Interpretive Statements Ventricular-paced rhythm cw 04/28/20 rate decreased Electronically Signed on 05-03-2020 16:02:21 EST by Stephen Choi
== END 2020-05-03 03:38 | disposition home or self-care (01) ==
LOC: M ED 23:41
DX: R00.2 Palpitations (principal); I48.91 Unspecified atrial fibrillation; Z95.0 Presence of cardiac pacemaker; Z88.2 Allergy status to sulfonamides; Z91.030 Bee allergy status
CPT/HCPCS: 71045; 80048; 81001; 82550; 82553; 83735; 83880; 84439; 84443; 84484; 85025; 93005; 93041; 94760; 96374; 99285; J1160

== ENCOUNTER → 2020-05-05 | Outpatient (CLI) | payer MEDICARE ==
[2020-05-05 13:49] LABS: APPEARANCE, URINE CLEAR (CLEAR); BACTERIA, URINE AUTO NEGATIVE (NEGATIVE); BILIRUBIN, URINE AUTO NEGATIVE (NEGATIVE); BLOOD, URINE BLOOD NEGATIVE (NEGATIVE); COLOR, URINE YELLOW (YELLOW); GLUCOSE, URINE (UA) AUTO NEGATIVE (NEGATIVE); KETONE, URINE AUTO NEGATIVE (NEGATIVE); LEUKOCYTE ESTERASE, URINE AUTO NEGATIVE (NEGATIVE); MUCUS, URINE SMALL (NEGATIVE); NITRITE, URINE AUTO NEGATIVE (NEGATIVE); PROTEIN, URINE AUTO NEGATIVE (NEGATIVE); RBC, URINE AUTO 1 /HPF (0-3); SPECIFIC GRAVITY URINE AUTO 1.011 (1.002-1.035); SQUAMOUS EPITHELIAL CELL UR AU 0 /HPF (0-6); UROBILINOGEN, URINE AUTO 0.2 mg/dL (0.0-2.0); WBC, URINE AUTO 9 /HPF (0-3)
[2020-05-05 13:54] LABS: BASO % 0.4 % (0.0-1.0); EOS # 0.2 10^3/uL (0.0-0.5); EOS % 4.4 % (0.0-3.0); HEMATOCRIT 33.2 % (42.0-52.0); HEMOGLOBIN 10.1 g/dl (13.5-17.5); LYMPH # 0.7 10^3/uL (1.5-5.0); LYMPH % 14.1 % (24.0-44.0); MEAN CORPUSCULAR HEMOGLOBIN 22.4 pg (27.0-33.0); MEAN CORPUSCULAR HGB CONC 30.4 g/dl (32.0-36.5); MEAN CORPUSCULAR VOLUME 73.6 fl (80.0-96.0); MONO # 0.4 10^3/uL (0.0-0.8); MONO % 8.3 % (2.0-8.0); NEUTROPHILS # 3.7 10^3/uL (1.5-8.5); NEUTROPHILS % 72.4 % (36.0-66.0); PLATELET COUNT, AUTOMATED 168 10^3/uL (150-450); RED BLOOD COUNT 4.51 10^6/uL (4.30-6.10); WHITE BLOOD COUNT 5.1 10^3/uL (4.0-10.0)
[2020-05-05 14:02] LABS: INR 1.17; PROTHROMBIN TIME 15.2 SECONDS (12.5-14.3)
[2020-05-05 14:32] LABS: CALCIUM LEVEL 9.7 MG/DL (8.8-10.2); CREATININE FOR GFR 1.5 MG/DL (0.70-1.30); GLOMERULAR FILTRATION RATE 47.7 (>35); POTASSIUM SERUM 4.9 MEQ/L (3.5-5.1)
== END ==
LOC: M PLALAB 09:46
PROVIDERS: ATTEND Urology
DX: C67.9 Malignant neoplasm of bladder, unspecified (principal); R31.0 Gross hematuria

== ENCOUNTER → 2020-05-10 | Outpatient (CLI) | payer MEDICARE | LOC: M LABSMTC 08:29 | PROVIDERS: ATTEND Urology | DX: C67.9 Malignant neoplasm of bladder, unspecified (principal) ==

== ENCOUNTER → 2020-06-13 | Outpatient (CLI) | payer MEDICARE ==
[~2020-06-13] MED LIST changes: +BISO5TAB14 PO
--- NOTE | 2020-06-13 14:01 | REPPI ---
INDICATION: I50.9 HEART FAILURE, UNSPECIFIED. COMPARISON: 05/03/2020 the latest prior and a portable exam TECHNIQUE: PA and lateral FINDINGS: There is cardiomegaly. Note is again made of previous median sternotomy. The dual chamber bipolar pacemaker devices unchanged. Chronic fibrotic changes are seen throughout the lung butt status quo. There is chronic bibasilar density with CP angle blunting. No new parenchymal opacities have a developed. IMPRESSION: Cardiomegaly and chronic lung field changes as described above. I cannot rule out the possibility of small bilateral pleural effusions superimposed upon chronic changes. <Electronically signed by Dionisio Bellamy > 06/13/20 [id number]
[2020-06-13 15:13] LABS: HEMATOCRIT 32.7 % (42.0-52.0); HEMOGLOBIN 10.2 g/dl (13.5-17.5); MEAN CORPUSCULAR HEMOGLOBIN 22.8 pg (27.0-33.0); MEAN CORPUSCULAR HGB CONC 31.2 g/dl (32.0-36.5); PLATELET COUNT, AUTOMATED 156 10^3/uL (150-450); RED BLOOD COUNT 4.48 10^6/uL (4.30-6.10); WHITE BLOOD COUNT 5.7 10^3/uL (4.0-10.0)
[2020-06-13 15:19] LABS: ALBUMIN 3.5 GM/DL (3.2-5.2); BILIRUBIN,TOTAL 0.9 MG/DL (0.2-1.0); CALCIUM LEVEL 9.5 MG/DL (8.8-10.2); CREATININE FOR GFR 1.6 MG/DL (0.70-1.30); GLOMERULAR FILTRATION RATE 44.3 (>35); POTASSIUM SERUM 4.9 MEQ/L (3.5-5.1); TOTAL PROTEIN 6.5 GM/DL (6.4-8.2)
== END ==
LOC: M PLAIMG 13:33
PROVIDERS: ATTEND Internal Medicine
DX: I50.9 Heart failure, unspecified (principal); J90 Pleural effusion, not elsewhere classified

== ENCOUNTER 2020-06-15 02:43 | Emergency (ER) | payer MEDICARE ==
[~2020-06-15] VITALS: Ht 182.9 cm; Wt 100.1 kg
[~2020-06-15 02:43] MED LIST changes: -BISO5TAB14 PO
[2020-06-15] MEDS ORDERED: BISO5TAB14 PO (04:17)
[2020-06-15] MEDS ORDERED: LIDOCAINE 2% 5ML JELLY UROJET TOP ONE (04:25)
[2020-06-15 05:37] LABS: APPEARANCE, URINE CLOUDY (CLEAR); BACTERIA, URINE AUTO NEGATIVE (NEGATIVE); BILIRUBIN, URINE AUTO NEGATIVE (NEGATIVE); BLOOD, URINE BLOOD 2+ (NEGATIVE); COLOR, URINE RED (YELLOW); GLUCOSE, URINE (UA) AUTO 1+ mg/dL (NEGATIVE); KETONE, URINE AUTO NEGATIVE (NEGATIVE); LEUKOCYTE ESTERASE, URINE AUTO NEGATIVE (NEGATIVE); NITRITE, URINE AUTO NEGATIVE (NEGATIVE); PROTEIN, URINE AUTO 3+ mg/dL (NEGATIVE); RBC, URINE AUTO TNTC /HPF (0-3); SPECIFIC GRAVITY URINE AUTO 1.005 (1.002-1.035); SQUAMOUS EPITHELIAL CELL UR AU 0 /HPF (0-6); UROBILINOGEN, URINE AUTO 0.2 mg/dL (0.0-2.0); WBC, URINE AUTO 4 /HPF (0-3)
[2020-06-15 05:52] LABS: BASO % 0.4 % (0.0-1.0); EOS # 0.2 10^3/uL (0.0-0.5); HEMATOCRIT 30.4 % (42.0-52.0); HEMOGLOBIN 9.5 g/dl (13.5-17.5); LYMPH # 0.6 10^3/uL (1.5-5.0); LYMPH % 11.1 % (24.0-44.0); MEAN CORPUSCULAR HEMOGLOBIN 22.9 pg (27.0-33.0); MEAN CORPUSCULAR HGB CONC 31.3 g/dl (32.0-36.5); MEAN CORPUSCULAR VOLUME 73.3 fl (80.0-96.0); MONO # 0.4 10^3/uL (0.0-0.8); MONO % 7.7 % (2.0-8.0); NEUTROPHILS # 3.8 10^3/uL (1.5-8.5); NEUTROPHILS % 77.4 % (36.0-66.0); PLATELET COUNT, AUTOMATED 158 10^3/uL (150-450); RED BLOOD COUNT 4.15 10^6/uL (4.30-6.10)
[2020-06-15 06:06] LABS: INR 1.25
[2020-06-15 06:07] LABS: PARTIAL THROMBOPLASTIN TIME 32.4 SECONDS (24.2-38.5)
[2020-06-15 06:23] LABS: CALCIUM LEVEL 9.5 MG/DL (8.8-10.2); CREATININE FOR GFR 1.46 MG/DL (0.70-1.30); GLOMERULAR FILTRATION RATE 49.2 (>35); POTASSIUM SERUM 4.4 MEQ/L (3.5-5.1)
[2020-06-15 09:44] VITALS: BP 132/60
== END 2020-06-15 10:05 | disposition home or self-care (01) ==
LOC: M ED 02:43
DX: N13.9 Obstructive and reflux uropathy, unspecified (principal); R31.9 Hematuria, unspecified; C67.9 Malignant neoplasm of bladder, unspecified; Z88.2 Allergy status to sulfonamides; Z91.030 Bee allergy status; Z79.01 Long term (current) use of anticoagulants; Z79.899 Other long term (current) drug therapy

== ENCOUNTER → 2020-07-03 | Outpatient (CLI) | payer MEDICARE ==
[~2020-07-03] MED LIST changes: +BISO5TAB14 PO
[2020-07-03 10:39] LABS: HEMATOCRIT 34.4 % (42.0-52.0); HEMOGLOBIN 10.7 g/dl (13.5-17.5); MEAN CORPUSCULAR HEMOGLOBIN 22.5 pg (27.0-33.0); MEAN CORPUSCULAR HGB CONC 31.1 g/dl (32.0-36.5); MEAN CORPUSCULAR VOLUME 72.4 fl (80.0-96.0); PLATELET COUNT, AUTOMATED 163 10^3/uL (150-450); RED BLOOD COUNT 4.75 10^6/uL (4.30-6.10); WHITE BLOOD COUNT 4.5 10^3/uL (4.0-10.0)
[2020-07-03 11:16] LABS: CALCIUM LEVEL 10.3 MG/DL (8.8-10.2); CREATININE FOR GFR 1.69 MG/DL (0.70-1.30); GLOMERULAR FILTRATION RATE 41.6 (>35); POTASSIUM SERUM 4.5 MEQ/L (3.5-5.1)
== END ==
LOC: M PLALAB 07:56
PROVIDERS: ATTEND Internal Medicine
DX: I50.9 Heart failure, unspecified (principal)

== ENCOUNTER → 2020-08-07 | Outpatient (REF) | payer MEDICARE ==
[2020-08-07 13:09] LABS: CALCIUM LEVEL 9.5 MG/DL (8.8-10.2); CREATININE FOR GFR 1.82 MG/DL (0.70-1.30); GLOMERULAR FILTRATION RATE 38.2 (>35); MAGNESIUM LEVEL 2.5 MG/DL (1.8-2.4); POTASSIUM SERUM 4.5 MEQ/L (3.5-5.1)
== END ==
LOC: M PLALAB 09:38
PROVIDERS: ATTEND Physician Assistant
DX: I50.32 Chronic diastolic (congestive) heart failure (principal); I48.21 Permanent atrial fibrillation

== ENCOUNTER → 2020-09-12 | Outpatient (CLI) | payer MEDICARE ==
[2020-09-12 11:36] LABS: CALCIUM LEVEL 9.3 MG/DL (8.8-10.2); CREATININE FOR GFR 1.78 MG/DL (0.70-1.30); GLOMERULAR FILTRATION RATE 39.1 (>35)
== END ==
LOC: M PLALAB 07:42
PROVIDERS: ATTEND Physician Assistant
DX: I50.32 Chronic diastolic (congestive) heart failure (principal)

== ENCOUNTER → 2020-09-30 | Outpatient (CLI) | payer MEDICARE ==
[~2020-09-30] MED LIST changes: +ACET325C5 PO; +DOK1CAP4 PO; -DOK1CAP7 PO; +FERR325T3 PO; +FOLI1TAB11 PO; +LASI40TA9 PO; +MECL-86 PO; +NITR0.4S14 SL; +PRED10TA2 PO; +TRAM50TA2 PO
[2020-09-30 12:10] LABS: HEMATOCRIT 31.8 % (42.0-52.0); HEMOGLOBIN 9.8 g/dl (13.5-17.5); MEAN CORPUSCULAR HEMOGLOBIN 22.3 pg (27.0-33.0); MEAN CORPUSCULAR HGB CONC 30.8 g/dl (32.0-36.5); MEAN CORPUSCULAR VOLUME 72.3 fl (80.0-96.0); PLATELET COUNT, AUTOMATED 153 10^3/uL (150-450); WHITE BLOOD COUNT 4.9 10^3/uL (4.0-10.0)
== END ==
LOC: M PLALAB 08:09
PROVIDERS: ATTEND Physician Assistant
DX: I48.0 Paroxysmal atrial fibrillation (principal)

== ENCOUNTER → 2020-10-27 | Outpatient (CLI) | payer MEDICARE ==
[~2020-10-27] MED LIST changes: -ACET325C5 PO; -FERR325T3 PO; -FOLI1TAB11 PO; -LASI40TA9 PO; -MECL-86 PO; -NITR0.4S14 SL; -PRED10TA2 PO; -TRAM50TA2 PO
[2020-10-27 10:50] LABS: HEMATOCRIT 30.5 % (42.0-52.0); HEMOGLOBIN 9.5 g/dl (13.5-17.5); MEAN CORPUSCULAR HEMOGLOBIN 22.2 pg (27.0-33.0); MEAN CORPUSCULAR HGB CONC 31.1 g/dl (32.0-36.5); MEAN CORPUSCULAR VOLUME 71.3 fl (80.0-96.0); PLATELET COUNT, AUTOMATED 183 10^3/uL (150-450); RED BLOOD COUNT 4.28 10^6/uL (4.30-6.10); WHITE BLOOD COUNT 5.4 10^3/uL (4.0-10.0)
== END ==
LOC: M PLALAB 08:15
PROVIDERS: ATTEND Physician Assistant
DX: I48.21 Permanent atrial fibrillation (principal); Z79.01 Long term (current) use of anticoagulants

== ENCOUNTER → 2020-12-12 | Outpatient (CLI) | payer MEDICARE ==
[2020-12-12 10:37] LABS: CREATININE FOR GFR 1.72 MG/DL (0.70-1.30); GLOMERULAR FILTRATION RATE 40.6 (>35); MAGNESIUM LEVEL 2.2 MG/DL (1.8-2.4); POTASSIUM SERUM 4.6 MEQ/L (3.5-5.1)
== END ==
LOC: M PLALAB 09:04
PROVIDERS: ATTEND Physician Assistant
DX: I50.32 Chronic diastolic (congestive) heart failure (principal)

== ENCOUNTER 2021-03-18 08:41 | Inpatient (IN) | payer MEDICARE ==
[~2021-03-18] VITALS: Ht 185.4 cm; Wt 93.9 kg
[2021-03-18 09:13] LABS: BASO % 0.2 % (0.0-1.0); EOS # 0.2 10^3/uL (0.0-0.5); EOS % 2.2 % (0.0-3.0); HEMATOCRIT 31.4 % (42.0-52.0); HEMOGLOBIN 9.8 g/dl (13.5-17.5); LYMPH # 0.6 10^3/uL (1.5-5.0); LYMPH % 7.2 % (24.0-44.0); MEAN CORPUSCULAR HEMOGLOBIN 22.8 pg (27.0-33.0); MEAN CORPUSCULAR HGB CONC 31.2 g/dl (32.0-36.5); MONO # 0.4 10^3/uL (0.0-0.8); MONO % 5.1 % (2.0-8.0); NEUTROPHILS # 6.9 10^3/uL (1.5-8.5); NEUTROPHILS % 84.6 % (36.0-66.0); PLATELET COUNT, AUTOMATED 163 10^3/uL (150-450); WHITE BLOOD COUNT 8.1 10^3/uL (4.0-10.0)
[2021-03-18 09:44] LABS: ALBUMIN 3.4 GM/DL (3.2-5.2); BILIRUBIN,DIRECT 0.3 MG/DL (0.0-0.2); BILIRUBIN,TOTAL 0.6 MG/DL (0.2-1.0); CALCIUM LEVEL 8.9 MG/DL (8.8-10.2); CREATININE FOR GFR 1.56 MG/DL (0.70-1.30); GLOMERULAR FILTRATION RATE 45.5 (>35); POTASSIUM SERUM 4.7 MEQ/L (3.5-5.1); TOTAL PROTEIN 6.4 GM/DL (6.4-8.2)
[2021-03-18] MEDS ORDERED: ACET325C5 PO (11:09)
[2021-03-18] MEDS ORDERED: URIB118C PO (11:09)
[2021-03-18] MEDS ORDERED: TRAM50TA2 PO (11:09)
[2021-03-18] MEDS ORDERED: NITR0.4S14 SL (11:09)
[2021-03-18] MEDS ORDERED: FERR325T3 PO (11:09)
[2021-03-18] MEDS ORDERED: FOLI1TAB11 PO (11:09)
[2021-03-18] MEDS ORDERED: MECLIZINE 25 MG TABLET PO ONE (11:20)
[2021-03-18] MEDS ORDERED: ONDANSETRON 4MG/2ML VIAL IV ONE (11:30)
[2021-03-18] MEDS ORDERED: ONDANSETRON 4MG/2ML VIAL As Ordered ONE (11:31)
[2021-03-18] MEDS ORDERED: predniSONE 20 MG TAB PO ONE (15:00)
[2021-03-18] MEDS ORDERED: ACETAMINOPHEN TAB 650MG DOSE (2X325MG) PO PRN (15:00)
[2021-03-18] MEDS ORDERED: LASI40TA9 PO (19:04)
[2021-03-18] MEDS ORDERED: HOME MED LIST COMPLETE! XX SCH (19:05)
[2021-03-18] MEDS ORDERED: ATORVASTATIN 20 MG TAB PO SCH (21:00)
[2021-03-19 00:05] VITALS: BP 134/74
[2021-03-19] MEDS ORDERED: NITROGLYCERIN 0.4 MG SUBL TABLET SL PRN (00:10)
[2021-03-19] MEDS ORDERED: traMADol 50 MG TAB PO PRN (00:10)
[2021-03-19] MEDS: APIXABAN 5 MG TAB (ELIQUIS) PO SCH ×2 (02:03→08:54)
[2021-03-19] MEDS: FERROUS SULFATE 325MG TAB PO SCH ×2 (02:03→08:53)
[2021-03-19] MEDS: TAMSULOSIN 0.4 MG CAP PO SCH ×2 (02:04→08:55)
[2021-03-19 02:19] VITALS: BP 134/74
[2021-03-19] MEDS: CAPTOpril 12.5 MG TAB PO SCH ×2 (02:19→08:56)
[2021-03-19] MEDS: TIMOLOL MALEATE 0.5% OPHTH SOLN 5 ML OU SCH ×2 (02:20→08:56)
[2021-03-19] MEDS: BRIMONIDINE 0.1% OPHTH SOLN 5 ML OU SCH ×2 (02:20→08:55)
[2021-03-19 05:43] VITALS: BP 104/56
[2021-03-19 06:40] LABS: HEMATOCRIT 27.9 % (42.0-52.0); HEMOGLOBIN 8.7 g/dl (13.5-17.5); MEAN CORPUSCULAR HEMOGLOBIN 22.9 pg (27.0-33.0); MEAN CORPUSCULAR HGB CONC 31.2 g/dl (32.0-36.5); MEAN CORPUSCULAR VOLUME 73.4 fl (80.0-96.0); PLATELET COUNT, AUTOMATED 150 10^3/uL (150-450); WHITE BLOOD COUNT 6.5 10^3/uL (4.0-10.0)
[2021-03-19 06:53] LABS: CALCIUM LEVEL 8.9 MG/DL (8.8-10.2); CREATININE FOR GFR 1.5 MG/DL (0.70-1.30); GLOMERULAR FILTRATION RATE 47.6 (>35); MAGNESIUM LEVEL 2.4 MG/DL (1.8-2.4); POTASSIUM SERUM 5.1 MEQ/L (3.5-5.1)
[2021-03-19] MEDS ORDERED: MECLIZINE 25 MG TABLET PO PRN (08:50)
[2021-03-19] MEDS ORDERED: ASPIRIN 81 MG CHEW TABLET PO SCH (09:00)
[2021-03-19] MEDS ORDERED: bisoproloL fumarate 5 MG TAB PO SCH (09:00)
[2021-03-19] MEDS ORDERED: FUROSEMIDE 40 MG TAB PO SCH (09:00)
[2021-03-19] MEDS ORDERED: predniSONE 20 MG TAB PO SCH (09:00)
[2021-03-19] MEDS ORDERED: FLUTICASONE PROP 0.05% NASAL SPRAY 16 GM (FLONASE) SCH (09:00)
[2021-03-19 09:02] VITALS: BP 103/54
[2021-03-19] MEDS ORDERED: MECL-86 PO (10:25)
[2021-03-19] MEDS ORDERED: PRED10TA2 PO (10:25)
[2021-03-19 14:00] VITALS: BP 104/56
[2021-03-23] MEDS ORDERED: predniSONE 20 MG TAB PO SCH (09:00)
[2021-03-24] MEDS ORDERED: predniSONE 10 MG TAB PO SCH (09:00)
[2021-03-25] MEDS ORDERED: predniSONE 20 MG TAB PO SCH (09:00)
[2021-03-26] MEDS ORDERED: predniSONE 10 MG TAB PO SCH (09:00)
[2021-03-27] MEDS ORDERED: predniSONE 5 MG TAB PO SCH (09:00)
== END 2021-03-19 15:31 | disposition home health service (06) | DRG 149 ==
LOC: M ED 08:41 → M ED INP 14:56 → ENRESERV 22:21 → M MSPAV 22:24
PROVIDERS: ADMIT Family Medicine; ATTEND Family Medicine
DX: H81.20 Vestibular neuronitis, unspecified ear (principal); I48.91 Unspecified atrial fibrillation; J44.9 Chronic obstructive pulmonary disease, unspecified; I10 Essential (primary) hypertension; I25.10 Atherosclerotic heart disease of native coronary artery without angina pectoris; F32.A Depression, unspecified; E78.5 Hyperlipidemia, unspecified; Z79.82 Long term (current) use of aspirin; Z79.899 Other long term (current) drug therapy; Z88.2 Allergy status to sulfonamides; Z91.030 Bee allergy status; Z95.0 Presence of cardiac pacemaker; Z87.891 Personal history of nicotine dependence; Z85.51 Personal history of malignant neoplasm of bladder

== ENCOUNTER → 2021-04-28 | Outpatient (CLI) | payer MEDICARE ==
[~2021-04-28] MED LIST changes: +ACET325C5 PO; +FERR325T3 PO; +FOLI1TAB11 PO; +ISOVUE-300 61% 50ML VIAL As Ordered ONE; +LASI40TA9 PO; +LIDOCAINE 1% MDV 20ML VIAL As Ordered ONE; +MECL-86 PO; +NITR0.4S14 SL; +PRED10TA2 PO; +TRAM50TA2 PO; +TRIAMCINOLONE ACETONIDE SUSP 40 MG/ML VIAL (J3301) As Ordered ONE
== END ==
LOC: M RADPRO 14:59
PROVIDERS: ATTEND Orthopaedic Surgery
DX: M16.11 Unilateral primary osteoarthritis, right hip (principal)
CPT/HCPCS: 20610; 77002; J3301; Q9967

== ENCOUNTER 2021-05-03 13:12 | Emergency (ER) | payer MEDICARE ==
[~2021-05-03] VITALS: Ht 177.8 cm; Wt 90.9 kg
[~2021-05-03 13:12] MED LIST changes: -ISOVUE-300 61% 50ML VIAL As Ordered ONE; -LIDOCAINE 1% MDV 20ML VIAL As Ordered ONE; -TRIAMCINOLONE ACETONIDE SUSP 40 MG/ML VIAL (J3301) As Ordered ONE
[2021-05-03] MEDS ORDERED: diazePAM 10MG/2ML SYRINGE (J3360 PER 5MG) IV ONE (13:55)
[2021-05-03 14:32] LABS: BASO % 0.2 % (0.0-1.0); EOS # 0.2 10^3/uL (0.0-0.5); EOS % 3.1 % (0.0-3.0); HEMATOCRIT 31.8 % (42.0-52.0); LYMPH # 0.9 10^3/uL (1.5-5.0); LYMPH % 16.1 % (24.0-44.0); MEAN CORPUSCULAR HEMOGLOBIN 22.5 pg (27.0-33.0); MEAN CORPUSCULAR HGB CONC 31.4 g/dl (32.0-36.5); MEAN CORPUSCULAR VOLUME 71.5 fl (80.0-96.0); MONO # 0.5 10^3/uL (0.0-0.8); MONO % 9.4 % (2.0-8.0); NEUTROPHILS # 3.9 10^3/uL (1.5-8.5); NEUTROPHILS % 70.8 % (36.0-66.0); PLATELET COUNT, AUTOMATED 174 10^3/uL (150-450); RED BLOOD COUNT 4.45 10^6/uL (4.30-6.10); WHITE BLOOD COUNT 5.5 10^3/uL (4.0-10.0)
[2021-05-03 14:45] LABS: INR 1.07; PARTIAL THROMBOPLASTIN TIME 31.2 SECONDS (25.9-37.0); PROTHROMBIN TIME 14.3 SECONDS (12.7-14.5)
[2021-05-03 14:48] LABS: CALCIUM LEVEL 8.6 MG/DL (8.8-10.2); CREATININE FOR GFR 1.57 MG/DL (0.70-1.30); GLOMERULAR FILTRATION RATE 45.1 (>35); POTASSIUM SERUM 4.6 MEQ/L (3.5-5.1)
[2021-05-03 14:51] LABS: CK-MB VALUE MASS < 1.0 NG/ML (<3.6); CPK CREATINE PHOSPHOKINASE 25 U/L (39-308)
[2021-05-03] MEDS ORDERED: AUGMENTIN 875 MG TAB PO ONE (15:50)
[2021-05-03] MEDS ORDERED: VALI2TAB PO (15:52)
[2021-05-03] MEDS ORDERED: MUCI600T31 PO (15:52)
[2021-05-03] MEDS ORDERED: AMOX875T2 PO (15:52)
[2021-05-03 16:10] VITALS: BP 152/79
== END 2021-05-03 16:11 | disposition home or self-care (01) ==
LOC: M ED 13:12
DX: H81.4 Vertigo of central origin (principal); J01.90 Acute sinusitis, unspecified; I10 Essential (primary) hypertension; E78.5 Hyperlipidemia, unspecified; I25.2 Old myocardial infarction; I48.91 Unspecified atrial fibrillation; Z98.84 Bariatric surgery status; Z88.2 Allergy status to sulfonamides; Z91.030 Bee allergy status; Z79.899 Other long term (current) drug therapy
CPT/HCPCS: 70450; 80048; 82550; 82553; 84484; 85025; 85610; 85730; 93005; 93041; 94760; 96374; 99285; J3360

== ENCOUNTER → 2021-07-20 | Outpatient (CLI) | payer MEDICARE ==
[~2021-07-20] MED LIST changes: +AMOX875T2 PO; +MUCI600T31 PO; +VALI2TAB PO
[2021-07-20 11:23] LABS: CALCIUM LEVEL 9.5 MG/DL (8.8-10.2); CREATININE FOR GFR 1.63 MG/DL (0.70-1.30); GLOMERULAR FILTRATION RATE 43.2 (>35); MAGNESIUM LEVEL 2.5 MG/DL (1.8-2.4); POTASSIUM SERUM 4.8 MEQ/L (3.5-5.1)
== END ==
LOC: M PLALAB 07:01
PROVIDERS: ATTEND Physician Assistant
DX: I50.32 Chronic diastolic (congestive) heart failure (principal)

== ENCOUNTER → 2021-07-23 | Outpatient (CLI) | payer MEDICARE ==
[2021-07-23 11:04] LABS: ALBUMIN 3.4 GM/DL (3.2-5.2); BILIRUBIN,TOTAL 0.9 MG/DL (0.2-1.0); CALCIUM LEVEL 9.3 MG/DL (8.8-10.2); CHOLESTEROL RISK RATIO 1.514 (<5); CREATININE FOR GFR 1.66 MG/DL (0.70-1.30); GLOMERULAR FILTRATION RATE 42.3 (>35); MAGNESIUM LEVEL 2.3 MG/DL (1.8-2.4); POTASSIUM SERUM 4.6 MEQ/L (3.5-5.1); TOTAL PROTEIN 6.4 GM/DL (6.4-8.2)
== END ==
LOC: M PLALAB 08:10
PROVIDERS: ATTEND Physician Assistant
DX: I25.10 Atherosclerotic heart disease of native coronary artery without angina pectoris (principal); I50.32 Chronic diastolic (congestive) heart failure; E78.00 Pure hypercholesterolemia, unspecified; I49.01 Ventricular fibrillation; I25.5 Ischemic cardiomyopathy

== ENCOUNTER → 2021-08-05 | Outpatient (CLI) | payer MEDICARE ==
[2021-08-05 10:27] LABS: HEMATOCRIT 30.1 % (42.0-52.0); HEMOGLOBIN 9.5 g/dl (13.5-17.5); MEAN CORPUSCULAR HEMOGLOBIN 22.7 pg (27.0-33.0); MEAN CORPUSCULAR HGB CONC 31.6 g/dl (32.0-36.5); MEAN CORPUSCULAR VOLUME 71.8 fl (80.0-96.0); PLATELET COUNT, AUTOMATED 171 10^3/uL (150-450); RED BLOOD COUNT 4.19 10^6/uL (4.30-6.10); WHITE BLOOD COUNT 5.5 10^3/uL (4.0-10.0)
[2021-08-05 11:10] LABS: CALCIUM LEVEL 9.4 MG/DL (8.8-10.2); CREATININE FOR GFR 1.57 MG/DL (0.70-1.30); GLOMERULAR FILTRATION RATE 45.1 (>35); MAGNESIUM LEVEL 2.3 MG/DL (1.8-2.4); POTASSIUM SERUM 4.4 MEQ/L (3.5-5.1)
== END ==
LOC: M PLALAB 08:29
PROVIDERS: ATTEND Physician Assistant
DX: I25.5 Ischemic cardiomyopathy (principal)

== ENCOUNTER → 2021-08-17 | Outpatient (CLI) | payer MEDICARE ==
[2021-08-17 14:05] LABS: HEMATOCRIT 32.1 % (42.0-52.0); MEAN CORPUSCULAR HEMOGLOBIN 21.9 pg (27.0-33.0); MEAN CORPUSCULAR HGB CONC 31.2 g/dl (32.0-36.5); MEAN CORPUSCULAR VOLUME 70.4 fl (80.0-96.0); PLATELET COUNT, AUTOMATED 184 10^3/uL (150-450); RED BLOOD COUNT 4.56 10^6/uL (4.30-6.10); WHITE BLOOD COUNT 5.1 10^3/uL (4.0-10.0)
[2021-08-17 15:07] LABS: CALCIUM LEVEL 9.7 MG/DL (8.8-10.2); CREATININE FOR GFR 1.59 MG/DL (0.70-1.30); GLOMERULAR FILTRATION RATE 44.5 (>35); MAGNESIUM LEVEL 2.7 MG/DL (1.8-2.4); POTASSIUM SERUM 4.5 MEQ/L (3.5-5.1)
== END ==
LOC: M PLALAB 11:42
PROVIDERS: ATTEND Physician Assistant
DX: I25.5 Ischemic cardiomyopathy (principal); I50.32 Chronic diastolic (congestive) heart failure

== ENCOUNTER → 2021-08-24 | Outpatient (CLI) | payer MEDICARE ==
[2021-08-24 16:00] LABS: CALCIUM LEVEL 9.2 MG/DL (8.8-10.2); CREATININE FOR GFR 1.54 MG/DL (0.70-1.30); GLOMERULAR FILTRATION RATE 46.2 (>35)
== END ==
LOC: M PLALAB 09:21
PROVIDERS: ATTEND Physician Assistant
DX: I50.32 Chronic diastolic (congestive) heart failure (principal)

== ENCOUNTER → 2021-09-15 | Outpatient (CLI) | payer MEDICARE ==
[~2021-09-15] MED LIST changes: +COSO1SOL3 OU; +DOCU100C16 PO; +ELIQ2.5T PO; -FLON1SPR; +FLON1SPR NARES
== END ==
LOC: M PLALAB 10:17
PROVIDERS: ATTEND Urology
DX: R31.0 Gross hematuria (principal)

== ENCOUNTER → 2021-10-21 | Outpatient (CLI) | payer MEDICARE ==
[2021-10-21 13:48] LABS: CALCIUM LEVEL 9.4 MG/DL (8.8-10.2); CREATININE FOR GFR 1.49 MG/DL (0.70-1.30); GLOMERULAR FILTRATION RATE 47.8 (>35); MAGNESIUM LEVEL 2.2 MG/DL (1.8-2.4); POTASSIUM SERUM 4.8 MEQ/L (3.5-5.1)
== END ==
LOC: M PLALAB 07:45
PROVIDERS: ATTEND Physician Assistant
DX: I50.32 Chronic diastolic (congestive) heart failure (principal)

== ENCOUNTER → 2021-12-22 | Outpatient (REF) | payer MEDICARE | LOC: M LAB REF 09:49 | PROVIDERS: ATTEND Urology | DX: R31.0 Gross hematuria (principal) ==

== ENCOUNTER → 2022-01-06 | Outpatient (CLI) | payer MEDICARE ==
[~2022-01-06] MED LIST changes: +CLOP75TA99 PO; -PLAV1TAB2 PO
[2022-01-06 14:15] LABS: HEMATOCRIT 31.8 % (42.0-52.0); HEMOGLOBIN 9.7 g/dl (13.5-17.5); MEAN CORPUSCULAR HGB CONC 30.5 g/dl (32.0-36.5); MEAN CORPUSCULAR VOLUME 72.3 fl (80.0-96.0); PLATELET COUNT, AUTOMATED 182 10^3/uL (150-450)
[2022-01-06 15:40] LABS: ALBUMIN 3.3 GM/DL (3.2-5.2); BILIRUBIN,TOTAL 0.9 MG/DL (0.2-1.0); CALCIUM LEVEL 9.4 MG/DL (8.8-10.2); CHOLESTEROL RISK RATIO 1.41 (<5); CREATININE FOR GFR 1.55 MG/DL (0.70-1.30); GLOMERULAR FILTRATION RATE 45.7 (>35); POTASSIUM SERUM 4.7 MEQ/L (3.5-5.1); TOTAL PROTEIN 6.4 GM/DL (6.4-8.2)
== END ==
LOC: M PLALAB 09:37
PROVIDERS: ATTEND Internal Medicine
DX: I50.9 Heart failure, unspecified (principal); E78.5 Hyperlipidemia, unspecified; D56.3 Thalassemia minor

== ENCOUNTER → 2022-01-25 | Outpatient (CLI) | payer MEDICARE ==
[2022-01-25 16:23] LABS: POTASSIUM SERUM 4.9 MMOL/L (3.5-5.1)
[2022-01-25 16:28] LABS: CALCIUM LEVEL 9.3 MG/DL (8.3-10.6)
[2022-01-25 16:31] LABS: CREATININE FOR GFR 1.43 MG/DL (0.70-1.30); GLOMERULAR FILTRATION RATE 50.2 (>35)
== END ==
LOC: M PLALAB 09:18
PROVIDERS: ATTEND Physician Assistant
DX: I50.32 Chronic diastolic (congestive) heart failure (principal)

== ENCOUNTER → 2022-01-27 | Outpatient (CLI) | payer MEDICARE ==
[~2022-01-27] MED LIST changes: +ISOVUE-300 61% 50ML VIAL ONE; +LIDOCAINE 1% MDV 20ML VIAL ONE; +methylPREDNISolone SUSP 40MG/ML 1ML VIAL (DEPO MEDROL) ONE
== END ==
LOC: M PLAIMG 11:54
PROVIDERS: ATTEND Physician Assistant
DX: M16.11 Unilateral primary osteoarthritis, right hip (principal)
CPT/HCPCS: 20610; 76000; 83880; J1030; Q9967

== ENCOUNTER → 2022-01-27 | Outpatient (REF) | payer MEDICARE ==
[~2022-01-27] MED LIST changes: -ISOVUE-300 61% 50ML VIAL ONE; -LIDOCAINE 1% MDV 20ML VIAL ONE; -methylPREDNISolone SUSP 40MG/ML 1ML VIAL (DEPO MEDROL) ONE
== END ==
LOC: M LABDRWAD 12:52
PROVIDERS: ATTEND Physician Assistant
DX: I50.32 Chronic diastolic (congestive) heart failure (principal)

== ENCOUNTER → 2022-05-05 | Outpatient (CLI) | payer MEDICARE ==
[2022-05-05 13:50] LABS: CREATININE FOR GFR 1.52 MG/DL (0.70-1.30); GLOMERULAR FILTRATION RATE 46.7 (>35); MAGNESIUM LEVEL 2.1 MG/DL (1.8-2.4); POTASSIUM SERUM 4.5 MMOL/L (3.5-5.1)
== END ==
LOC: M PLALAB 09:32
PROVIDERS: ATTEND Physician Assistant
DX: I50.32 Chronic diastolic (congestive) heart failure (principal); I48.0 Paroxysmal atrial fibrillation

== ENCOUNTER 2022-06-07 14:21 | Emergency (ER) | payer MEDICARE ==
[~2022-06-07] VITALS: Ht 177.8 cm; Wt 94.3 kg
[~2022-06-07 14:21] MED LIST changes: -COSO1SOL3 OU; +DORZ10DR10 OU; +TIMO0.5S20 OU; -TIMO0.5S29 OU
[2022-06-07] MEDS ORDERED: MORPHINE 2 MG/ML 1ML VIAL IV PRN (15:05)
[2022-06-07] MEDS ORDERED: ONDANSETRON 4MG 2ML VIAL IV ONE (15:05)
[2022-06-07 15:28] LABS: BASO % 0.3 % (0.0-1.0); EOS # 0.2 10^3/uL (0.0-0.5); EOS % 2.5 % (0.0-3.0); HEMATOCRIT 30.8 % (42.0-52.0); HEMOGLOBIN 9.3 g/dl (13.5-17.5); LYMPH # 0.7 10^3/uL (1.5-5.0); LYMPH % 11.2 % (24.0-44.0); MEAN CORPUSCULAR HEMOGLOBIN 22.1 pg (27.0-33.0); MEAN CORPUSCULAR HGB CONC 30.2 g/dl (32.0-36.5); MEAN CORPUSCULAR VOLUME 73.2 fl (80.0-96.0); MONO # 0.5 10^3/uL (0.0-0.8); MONO % 8.9 % (2.0-8.0); NEUTROPHILS # 4.6 10^3/uL (1.5-8.5); NEUTROPHILS % 76.6 % (36.0-66.0); PLATELET COUNT, AUTOMATED 187 10^3/uL (150-450); RED BLOOD COUNT 4.21 10^6/uL (4.30-6.10)
[2022-06-07 15:56] LABS: ALBUMIN 3.4 G/DL (3.2-5.2); BILIRUBIN,DIRECT 0.5 MG/DL (<0.4); CALCIUM LEVEL 8.9 MG/DL (8.3-10.6); CREATININE FOR GFR 1.54 MG/DL (0.70-1.30); POTASSIUM SERUM 4.7 MMOL/L (3.5-5.1); TOTAL PROTEIN 6.2 G/DL (5.7-8.2)
[2022-06-07 16:48] VITALS: BP 128/66
== END 2022-06-07 16:53 | disposition home or self-care (01) ==
LOC: M ED 14:21
DX: K42.9 Umbilical hernia without obstruction or gangrene (principal); I10 Essential (primary) hypertension; E78.5 Hyperlipidemia, unspecified; I48.91 Unspecified atrial fibrillation; I25.10 Atherosclerotic heart disease of native coronary artery without angina pectoris; Z87.891 Personal history of nicotine dependence; Z95.0 Presence of cardiac pacemaker; Z85.51 Personal history of malignant neoplasm of bladder; Z88.2 Allergy status to sulfonamides; Z91.030 Bee allergy status
CPT/HCPCS: 80048; 80076; 83605; 83690; 85025; 96374; 96375; 99284; J2405

== ENCOUNTER 2022-06-17 16:01 | Emergency (ER) | payer MEDICARE ==
[~2022-06-17] VITALS: Ht 182.9 cm; Wt 91.8 kg
[2022-06-17 16:02] VITALS: BP 149/67
[2022-06-17] MEDS ORDERED: ISOVUE-370 76% 100ML VIAL As Ordered ONE (17:54)
[2022-06-17 18:07] LABS: BASO % 0.2 % (0.0-1.0); EOS # 0.1 10^3/uL (0.0-0.5); EOS % 2.6 % (0.0-3.0); HEMATOCRIT 30.3 % (42.0-52.0); HEMOGLOBIN 9.4 g/dl (13.5-17.5); LYMPH # 0.6 10^3/uL (1.5-5.0); LYMPH % 13.2 % (24.0-44.0); MEAN CORPUSCULAR HEMOGLOBIN 22.1 pg (27.0-33.0); MEAN CORPUSCULAR VOLUME 71.1 fl (80.0-96.0); MONO # 0.4 10^3/uL (0.0-0.8); MONO % 8.7 % (2.0-8.0); NEUTROPHILS # 3.5 10^3/uL (1.5-8.5); NEUTROPHILS % 74.9 % (36.0-66.0); PLATELET COUNT, AUTOMATED 175 10^3/uL (150-450); RED BLOOD COUNT 4.26 10^6/uL (4.30-6.10); WHITE BLOOD COUNT 4.6 10^3/uL (4.0-10.0)
[2022-06-17 18:17] LABS: INR 1.29; PARTIAL THROMBOPLASTIN TIME 33.6 SECONDS (24.8-34.2); PROTHROMBIN TIME 16.3 SECONDS (12.5-14.5)
[2022-06-17 18:21] LABS: ALBUMIN 3.3 G/DL (3.2-5.2); BILIRUBIN,DIRECT 0.5 MG/DL (<0.4); BILIRUBIN,TOTAL 1.1 MG/DL (0.3-1.2); TOTAL PROTEIN 5.9 G/DL (5.7-8.2)
== END 2022-06-17 19:53 | disposition home or self-care (01) ==
LOC: M ED 16:01
DX: K42.9 Umbilical hernia without obstruction or gangrene (principal); H81.4 Vertigo of central origin; Z86.73 Personal history of transient ischemic attack (TIA), and cerebral infarction without residual deficits; Z86.79 Personal history of other diseases of the circulatory system; Z85.51 Personal history of malignant neoplasm of bladder; Z88.2 Allergy status to sulfonamides; Z91.030 Bee allergy status; Z79.01 Long term (current) use of anticoagulants; Z79.02 Long term (current) use of antithrombotics/antiplatelets; Z79.810 Long term (current) use of selective estrogen receptor modulators (SERMs); Z79.899 Other long term (current) drug therapy
CPT/HCPCS: 36415; 74177; 80047; 80076; 81001; 83605; 83690; 85025; 85610; 85730; 99283; Q9967

== ENCOUNTER 2022-07-19 16:52 | Observation (INO) | payer MEDICARE ==
[~2022-07-19] VITALS: Ht 180.3 cm; Wt 92.5 kg
[2022-07-19 18:03] LABS: BASO % 0.1 % (0.0-1.0); EOS % 0.2 % (0.0-3.0); HEMATOCRIT 26.3 % (42.0-52.0); HEMOGLOBIN 8.1 g/dl (13.5-17.5); LYMPH # 0.3 10^3/uL (1.5-5.0); MEAN CORPUSCULAR HEMOGLOBIN 22.1 pg (27.0-33.0); MEAN CORPUSCULAR HGB CONC 30.8 g/dl (32.0-36.5); MEAN CORPUSCULAR VOLUME 71.7 fl (80.0-96.0); MONO # 0.7 10^3/uL (0.0-0.8); MONO % 7.3 % (2.0-8.0); NEUTROPHILS % 89.1 % (36.0-66.0); PLATELET COUNT, AUTOMATED 156 10^3/uL (150-450); RED BLOOD COUNT 3.67 10^6/uL (4.30-6.10)
[2022-07-19 18:35] LABS: CALCIUM LEVEL 8.4 MG/DL (8.3-10.6); CREATININE FOR GFR 1.5 MG/DL (0.70-1.30); GLOMERULAR FILTRATION RATE 47.5 (>35); POTASSIUM SERUM 4.4 MMOL/L (3.5-5.1)
[2022-07-19 19:18] LABS: PERCENT SATURATION 12.9 % (19.7-50.0)
[2022-07-19 19:20] LABS: FERRITIN 95.5 NG/ML (10.5-307.3); FOLATE 23.96 NG/ML (>5.4)
[2022-07-19] MEDS ORDERED: FURO20TA2 PO (19:53)
[2022-07-19] MEDS ORDERED: MIRA1POW3 PO (19:53)
[2022-07-19] MEDS ORDERED: ACET650T61 PO (19:53)
[2022-07-19] MEDS ORDERED: HOME MED LIST COMPLETE! XX SCH (19:55)
[2022-07-19] MEDS ORDERED: CEPH500C PO (19:55)
[2022-07-19 20:13] LABS: RSV AMPLIFICATION NEGATIVE (NEGATIVE)
[2022-07-19] MEDS ORDERED: NITROGLYCERIN 0.4MG SUBL TABLET SL PRN (20:15)
[2022-07-19] MEDS ORDERED: ACETAMINOPHEN TAB 650MG DOSE (2X325MG) PO PRN (20:15)
[2022-07-19] MEDS: DOCUSATE SODIUM 100MG CAPSULE PO SCH (20:48)
[2022-07-19] MEDS: TAMSULOSIN 0.4 MG CAP PO SCH (20:49)
[2022-07-19] MEDS: APIXABAN 2.5 MG TAB (ELIQUIS) PO SCH (20:49)
[2022-07-19] MEDS: CEPHALEXIN 500 MG CAP PO SCH (20:52)
[2022-07-19] MEDS: CAPTOpril 6.25 MG PER 1/2 TABLET PO SCH (20:52)
[2022-07-19] MEDS ORDERED: ATORVASTATIN 20 MG TAB PO SCH (21:00)
[2022-07-19 21:14] VITALS: BP 108/53
[2022-07-19 21:30] VITALS: BP 119/60
[2022-07-19] MEDS ORDERED: FERRIC CARBOXYMALTOSE INJ 750 MG, VIAL MATE ADAPTER 1 EACH in NS 250 ML IV ONE (23:00)
[2022-07-19 23:35] VITALS: BP 117/62
[2022-07-20] MEDS: COSOPT OCUMETER PLUS 10ML (DORZOLAMIDE/TIMOLOL) OU SCH ×2 (01:51→08:18)
[2022-07-20] MEDS: FLUTICASONE PROP 0.05% NASAL SPRAY 16 GM (FLONASE) NARES SCH ×2 (01:52→08:18)
[2022-07-20 05:22] VITALS: BP 118/61
[2022-07-20 06:15] LABS: HEMATOCRIT 28.6 % (42.0-52.0); HEMOGLOBIN 8.8 g/dl (13.5-17.5); MEAN CORPUSCULAR HEMOGLOBIN 21.9 pg (27.0-33.0); MEAN CORPUSCULAR HGB CONC 30.8 g/dl (32.0-36.5); MEAN CORPUSCULAR VOLUME 71.1 fl (80.0-96.0); PLATELET COUNT, AUTOMATED 148 10^3/uL (150-450); RED BLOOD COUNT 4.02 10^6/uL (4.30-6.10); WHITE BLOOD COUNT 7.3 10^3/uL (4.0-10.0)
[2022-07-20 06:47] LABS: CALCIUM LEVEL 8.7 MG/DL (8.3-10.6); CREATININE FOR GFR 1.43 MG/DL (0.70-1.30); GLOMERULAR FILTRATION RATE 50.2 (>35); POTASSIUM SERUM 4.4 MMOL/L (3.5-5.1)
[2022-07-20] MEDS: CEPHALEXIN 500 MG CAP PO SCH (08:18)
[2022-07-20] MEDS: APIXABAN 2.5 MG TAB (ELIQUIS) PO SCH (08:18)
[2022-07-20] MEDS: DOCUSATE SODIUM 100MG CAPSULE PO SCH (08:18)
[2022-07-20] MEDS: CAPTOpril 6.25 MG PER 1/2 TABLET PO SCH (08:18)
[2022-07-20] MEDS: TAMSULOSIN 0.4 MG CAP PO SCH (08:19)
[2022-07-20] MEDS ORDERED: OYSTER SHELL CALCIUM 500 MG TAB PO SCH (09:00)
[2022-07-20] MEDS ORDERED: FUROSEMIDE 20 MG TAB PO SCH (09:00)
[2022-07-20] MEDS ORDERED: MIRALAX *UNIT DOSE* 17GM PACKET PO SCH (09:00)
[2022-07-20] MEDS ORDERED: ASPIRIN 81MG CHEW TABLET PO SCH (09:00)
[2022-07-20] MEDS ORDERED: bisoproloL fumarate 5 MG TAB PO SCH (09:00)
[2022-07-20] MEDS ORDERED: BENZONATATE 100MG CAPSULE PO ONE (09:10)
[2022-07-20] MEDS ORDERED: IPRATROPIUM 0.5MG/ALBUTEROL 2.5MG INH SOL UD 3ML (DUONEB) NEB ONE (09:10)
[2022-07-20] MEDS ORDERED: guaiFENesin ER 600 MG TAB PO SCH (09:10)
[2022-07-20 09:44] VITALS: O2SAT 91
[2022-07-20] MEDS ORDERED: BENZONATATE 100MG CAPSULE PO SCH (16:00)
== END 2022-07-20 14:15 | disposition home health service (06) ==
LOC: M ED 16:52 → M ED INP 20:13 → M MSPAV 23:32
PROVIDERS: ADMIT Internal Medicine; ATTEND General Practice
DX: D56.1 Beta thalassemia (principal); D63.8 Anemia in other chronic diseases classified elsewhere; D69.6 Thrombocytopenia, unspecified; D46.A Refractory cytopenia with multilineage dysplasia; N18.9 Chronic kidney disease, unspecified; I12.9 Hypertensive chronic kidney disease with stage 1 through stage 4 chronic kidney disease, or unspecified chronic kidney disease; I48.0 Paroxysmal atrial fibrillation; I25.10 Atherosclerotic heart disease of native coronary artery without angina pectoris; I49.5 Sick sinus syndrome; Z95.0 Presence of cardiac pacemaker; Z95.1 Presence of aortocoronary bypass graft; Z79.01 Long term (current) use of anticoagulants; Z79.899 Other long term (current) drug therapy; Z79.82 Long term (current) use of aspirin; Z88.2 Allergy status to sulfonamides; E78.5 Hyperlipidemia, unspecified; N40.0 Benign prostatic hyperplasia without lower urinary tract symptoms; Z85.51 Personal history of malignant neoplasm of bladder; Z92.3 Personal history of irradiation; Z92.21 Personal history of antineoplastic chemotherapy
CPT/HCPCS: 36415; 36430; 70450; 71045; 80048; 80503; 82607; 82728; 82746; 83020; 83550; 83735; 84145; 84484; 85025; 85027; 86850; 86900; 86901; 86920; 87631; 93005; 93041; 94640; 94760; 96360; 97116; 97161; 97165; 97530; 97535; 99285; G0378; J1439; P9016

== ENCOUNTER 2022-07-23 11:21 | Emergency (ER) | payer MEDICARE ==
[~2022-07-23] VITALS: Ht 177.8 cm; Wt 90.9 kg
[~2022-07-23 11:21] MED LIST changes: +ACET650T61 PO; +CEPH500C PO; +FURO20TA2 PO; +MIRA1POW3 PO
[2022-07-23] MEDS ORDERED: TRAM50TA2 (11:31)
[2022-07-23 11:47] VITALS: BP 123/60
== END 2022-07-23 13:58 | disposition home or self-care (01) ==
LOC: M ED 11:21
DX: K42.9 Umbilical hernia without obstruction or gangrene (principal); I25.2 Old myocardial infarction; I10 Essential (primary) hypertension; F17.200 Nicotine dependence, unspecified, uncomplicated; Z86.79 Personal history of other diseases of the circulatory system; Z88.2 Allergy status to sulfonamides; Z91.030 Bee allergy status; Z79.01 Long term (current) use of anticoagulants; Z79.02 Long term (current) use of antithrombotics/antiplatelets; Z79.899 Other long term (current) drug therapy

== ENCOUNTER → 2022-07-29 | Outpatient (CLI) | payer MEDICARE ==
[~2022-07-29] MED LIST changes: +TRAM50TA2
[2022-07-29 11:14] LABS: HEMOGLOBIN 9.7 g/dl (13.5-17.5); MEAN CORPUSCULAR HGB CONC 30.3 g/dl (32.0-36.5); MEAN CORPUSCULAR VOLUME 72.6 fl (80.0-96.0); PLATELET COUNT, AUTOMATED 191 10^3/uL (150-450); RED BLOOD COUNT 4.41 10^6/uL (4.30-6.10); WHITE BLOOD COUNT 4.9 10^3/uL (4.0-10.0)
[2022-07-29 11:49] LABS: CALCIUM LEVEL 9.1 MG/DL (8.3-10.6); CREATININE FOR GFR 1.45 MG/DL (0.70-1.30); GLOMERULAR FILTRATION RATE 49.4 (>35); POTASSIUM SERUM 4.7 MMOL/L (3.5-5.1)
== END ==
LOC: M PLALAB 07:34
PROVIDERS: ATTEND Internal Medicine
DX: D64.9 Anemia, unspecified (principal)

== ENCOUNTER → 2022-08-30 | Outpatient (REF) | payer MEDICARE ==
[2022-08-30 08:25] LABS: HEMATOCRIT 31.6 % (42.0-52.0); HEMOGLOBIN 9.7 g/dl (13.5-17.5); MEAN CORPUSCULAR HGB CONC 30.7 g/dl (32.0-36.5); MEAN CORPUSCULAR VOLUME 71.8 fl (80.0-96.0); PLATELET COUNT, AUTOMATED 138 10^3/uL (150-450); WHITE BLOOD COUNT 4.4 10^3/uL (4.0-10.0)
[2022-08-30 08:29] LABS: ALBUMIN 3.5 G/DL (3.2-5.2); ALKALINE PHOSPHATASE 98 U/L (46-116); ALT/SGPT 18 U/L (7.0-40); AST/SGOT < 8 U/L (<34); BILIRUBIN,TOTAL 1.2 MG/DL (0.3-1.2); BLOOD UREA NITROGEN 34 MG/DL (9-23); CALCIUM LEVEL 9.1 MG/DL (8.3-10.6); CARBON DIOXIDE LEVEL 31 MMOL/L (20-31); CHLORIDE LEVEL 107 MMOL/L (98-107); CHOLESTEROL LEVEL 94 MG/DL (<200); CHOLESTEROL RISK RATIO 1.75 (<5); CREATININE FOR GFR 1.44 MG/DL (0.70-1.30); GLOMERULAR FILTRATION RATE 49.8 (>35); GLUCOSE, FASTING 101 MG/DL (74-106); HDL CHOLESTEROL 53.7 MG/DL (>40); LDL CHOLESTEROL 32.1 MG/DL (<100); MAGNESIUM LEVEL 2.1 MG/DL (1.8-2.4); NON-HDL-C 40.3 MG/DL; POTASSIUM SERUM 4.7 MMOL/L (3.5-5.1); SODIUM LEVEL 143 MMOL/L (136-145); TOTAL PROTEIN 6.1 G/DL (5.7-8.2); TRIGLYCERIDES LEVEL 41 MG/DL (<150)
== END ==
LOC: M LAB REF 08:09
PROVIDERS: ATTEND Physician Assistant
DX: I25.10 Atherosclerotic heart disease of native coronary artery without angina pectoris (principal); I25.5 Ischemic cardiomyopathy; I50.32 Chronic diastolic (congestive) heart failure; I49.01 Ventricular fibrillation; E78.00 Pure hypercholesterolemia, unspecified; I48.0 Paroxysmal atrial fibrillation; D64.9 Anemia, unspecified

== ENCOUNTER → 2022-08-30 | Outpatient (REF) | payer MEDICARE ==
[2022-08-30 08:25] LABS: BASO % 0.4 % (0.0-1.0); EOS # 0.2 10^3/uL (0.0-0.5); EOS % 5.4 % (0.0-3.0); HEMATOCRIT 31.3 % (42.0-52.0); HEMOGLOBIN 9.6 g/dl (13.5-17.5); LYMPH # 0.6 10^3/uL (1.5-5.0); LYMPH % 14.1 % (24.0-44.0); MEAN CORPUSCULAR HEMOGLOBIN 21.9 pg (27.0-33.0); MEAN CORPUSCULAR HGB CONC 30.7 g/dl (32.0-36.5); MEAN CORPUSCULAR VOLUME 71.3 fl (80.0-96.0); MONO # 0.4 10^3/uL (0.0-0.8); MONO % 9.8 % (2.0-8.0); NEUTROPHILS # 3.1 10^3/uL (1.5-8.5); NEUTROPHILS % 70.1 % (36.0-66.0); PLATELET COUNT, AUTOMATED 154 10^3/uL (150-450); RED BLOOD COUNT 4.39 10^6/uL (4.30-6.10); WHITE BLOOD COUNT 4.5 10^3/uL (4.0-10.0)
[2022-08-30 08:30] LABS: PERCENT SATURATION 27.7 % (19.7-50.0)
[2022-08-30 08:32] LABS: FERRITIN 279.8 NG/ML (10.5-307.3)
== END ==
LOC: M LAB REF 08:05
PROVIDERS: ATTEND Internal Medicine
DX: D64.9 Anemia, unspecified (principal); I50.9 Heart failure, unspecified; I48.91 Unspecified atrial fibrillation

== ENCOUNTER 2022-09-27 16:13 | Observation (INO) | payer MEDICARE ==
[~2022-09-27] VITALS: Ht 182.9 cm; Wt 93.9 kg
[2022-09-27] MEDS ORDERED: traMADol 50 MG TAB PO ONE (16:45)
[2022-09-27] MEDS ORDERED: TRAM50TA2 PO (18:48)
[2022-09-27 20:09] LABS: HEMATOCRIT 26.9 % (42.0-52.0); HEMOGLOBIN 8.5 g/dl (13.5-17.5); MEAN CORPUSCULAR HEMOGLOBIN 22.1 pg (27.0-33.0); MEAN CORPUSCULAR HGB CONC 31.6 g/dl (32.0-36.5); MEAN CORPUSCULAR VOLUME 69.9 fl (80.0-96.0); PLATELET COUNT, AUTOMATED 135 10^3/uL (150-450); RED BLOOD COUNT 3.85 10^6/uL (4.30-6.10); WHITE BLOOD COUNT 6.8 10^3/uL (4.0-10.0)
[2022-09-27] MEDS ORDERED: PERCOCET 5MG/325MG TAB PO PRN (20:15)
[2022-09-27] MEDS ORDERED: ACETAMINOPHEN TAB 650MG DOSE (2X325MG) PO PRN (20:15)
[2022-09-27 20:16] LABS: ALBUMIN 3.1 G/DL (3.2-5.2); BILIRUBIN,TOTAL 0.9 MG/DL (0.3-1.2); CALCIUM LEVEL 8.7 MG/DL (8.3-10.6); CREATININE FOR GFR 1.47 MG/DL (0.70-1.30); GLOMERULAR FILTRATION RATE 48.6 (>35); POTASSIUM SERUM 4.4 MMOL/L (3.5-5.1); TOTAL PROTEIN 5.7 G/DL (5.7-8.2)
[2022-09-27] MEDS: MORPHINE 2 MG/ML 1ML VIAL IV ONE ×2 (20:26→20:28)
[2022-09-27 20:45] LABS: INR 1.24; PROTHROMBIN TIME 15.9 SECONDS (12.5-14.5)
[2022-09-27] MEDS ORDERED: OMEP-173 (20:54)
[2022-09-27] MEDS: PERCOCET 5MG/325MG TAB PO PRN (21:26)
[2022-09-27 22:00] VITALS: BP 134/66; TEMP 98.6; O2SAT 92
[2022-09-27] MEDS ORDERED: ASPI-161 PO (23:14)
[2022-09-27] MEDS ORDERED: VITMTA PO (23:14)
[2022-09-27] MEDS ORDERED: OMEP1CAP73 PO (23:14)
[2022-09-27] MEDS ORDERED: HOME MED LIST COMPLETE! XX SCH (23:15)
[2022-09-28] MEDS ORDERED: NITROGLYCERIN 0.4MG SUBL TABLET SL PRN (01:20)
[2022-09-28] MEDS: PERCOCET 5MG/325MG TAB PO PRN (05:36)
[2022-09-28 05:52] LABS: HEMATOCRIT 26.5 % (42.0-52.0); HEMOGLOBIN 8.3 g/dl (13.5-17.5); MEAN CORPUSCULAR HGB CONC 31.3 g/dl (32.0-36.5); MEAN CORPUSCULAR VOLUME 70.3 fl (80.0-96.0); PLATELET COUNT, AUTOMATED 127 10^3/uL (150-450); RED BLOOD COUNT 3.77 10^6/uL (4.30-6.10)
[2022-09-28 06:00] VITALS: BP 110/56; TEMP 97.5; O2SAT 93
[2022-09-28 06:19] LABS: BLOOD UREA NITROGEN 37 MG/DL (9-23); CALCIUM LEVEL 8.7 MG/DL (8.3-10.6); CARBON DIOXIDE LEVEL 28 MMOL/L (20-31); CHLORIDE LEVEL 108 MMOL/L (98-107); CREATININE FOR GFR 1.34 MG/DL (0.70-1.30); GLOMERULAR FILTRATION RATE 54.1 (>35); GLUCOSE, FASTING 129 MG/DL (74-106); POTASSIUM SERUM 4.5 MMOL/L (3.5-5.1); SODIUM LEVEL 144 MMOL/L (136-145)
[2022-09-28 09:00] VITALS: BP 110/56
[2022-09-28] MEDS ORDERED: FLUTICASONE PROP 0.05% NASAL SPRAY 16 GM (FLONASE) NARES SCH (09:00)
[2022-09-28] MEDS ORDERED: FUROSEMIDE 20 MG TAB PO SCH (09:00)
[2022-09-28] MEDS ORDERED: COSOPT OCUMETER PLUS 10ML (DORZOLAMIDE/TIMOLOL) OU SCH (09:00)
[2022-09-28] MEDS ORDERED: CAPTOpril 6.25 MG PER 1/2 TABLET PO SCH (09:00)
[2022-09-28] MEDS ORDERED: OMEPRAZOLE 20MG CAP PO SCH (09:00)
[2022-09-28] MEDS ORDERED: MIRALAX *UNIT DOSE* 17GM PACKET PO SCH (09:00)
[2022-09-28] MEDS ORDERED: bisoproloL fumarate 5 MG TAB PO SCH (09:00)
[2022-09-28] MEDS ORDERED: TAMSULOSIN 0.4 MG CAP PO SCH (09:00)
[2022-09-28] MEDS ORDERED: ASPIRIN 81MG ENTERIC TABLET PO SCH (09:00)
[2022-09-28 09:52] VITALS: BP 110/56
[2022-09-28 11:16] LABS: IRON (FE) 28 UG/DL (65-175); PERCENT SATURATION 11.5 % (19.7-50.0); TOTAL IRON BINDING CAPACITY 244 UG/DL (250-425)
[2022-09-28 11:18] LABS: FERRITIN 233.9 NG/ML (10.5-307.3); FOLATE > 24.0 NG/ML (>5.4)
[2022-09-28 11:19] LABS: VITAMIN B12 LEVEL 306 PG/ML (211-911)
[2022-09-28 14:00] VITALS: BP 109/56; TEMP 97.7; O2SAT 98
[2022-09-28] MEDS ORDERED: ONDANSETRON 4MG TAB PO PRN (14:05)
[2022-09-28] MEDS ORDERED: MM S100C PO (14:44)
[2022-09-28] MEDS ORDERED: FERR325T3 PO (14:44)
[2022-09-28] MEDS ORDERED: IRON SUCROSE 200 MG in NS 100 ML IV ONE (16:00)
[2022-09-28] MEDS ORDERED: ATORVASTATIN 20 MG TAB PO SCH (21:00)
[2022-09-30] MEDS ORDERED: FUROSEMIDE 20 MG TAB PO SCH (09:00)
== END 2022-09-28 16:00 ==
LOC: M ED 16:13 → EDSEX 16:13 → EDBD 16:13 → M ED INP 20:11 → INTOOBSV 20:11 → M MS5PR 21:00
PROVIDERS: ADMIT Internal Medicine; ATTEND Internal Medicine
DX: S42.252A Displaced fracture of greater tuberosity of left humerus, initial encounter for closed fracture (principal); W19.XXXA Unspecified fall, initial encounter; Y92.009 Unspecified place in unspecified non-institutional (private) residence as the place of occurrence of the external cause; Y93.9 Activity, unspecified; Y99.9 Unspecified external cause status; I48.91 Unspecified atrial fibrillation; I10 Essential (primary) hypertension; I25.10 Atherosclerotic heart disease of native coronary artery without angina pectoris; Z95.0 Presence of cardiac pacemaker; Z95.1 Presence of aortocoronary bypass graft; I49.5 Sick sinus syndrome; E78.5 Hyperlipidemia, unspecified; N40.0 Benign prostatic hyperplasia without lower urinary tract symptoms; Z92.3 Personal history of irradiation; Z92.21 Personal history of antineoplastic chemotherapy; Z85.51 Personal history of malignant neoplasm of bladder; D64.9 Anemia, unspecified; Z79.51 Long term (current) use of inhaled steroids; Z79.01 Long term (current) use of anticoagulants; Z87.891 Personal history of nicotine dependence; Z79.82 Long term (current) use of aspirin; Z79.899 Other long term (current) drug therapy; Z88.2 Allergy status to sulfonamides; Z91.030 Bee allergy status

== ENCOUNTER 2022-09-28 15:55 | Inpatient (IN) | payer MEDICARE ==
[~2022-09-28] VITALS: Ht 188 cm; Wt 98.5 kg
[2022-09-28 14:14] VITALS: BP 138/78; TEMP 97.7; O2SAT 94
[~2022-09-28 15:55] MED LIST changes: +MM S100C PO; +OMEP-173; +OMEP1CAP73 PO; +VITMTA PO
[2022-09-28] MEDS ORDERED: NITROGLYCERIN 0.4MG SUBL TABLET SL PRN (18:25)
[2022-09-28] MEDS ORDERED: BISACODYL 10MG SUPP PR PRN (18:25)
[2022-09-28] MEDS: oxyCODONE 5MG TAB PO PRN (20:06)
[2022-09-28 20:30] VITALS: BP 127/64; TEMP 98.2; O2SAT 93
[2022-09-28] MEDS: DOCUSATE SODIUM 100MG CAPSULE PO SCH (21:00)
[2022-09-28] MEDS: SENNA 8.6 MG TAB (SENOKOT) PO SCH (21:00)
[2022-09-28] MEDS: REMEDY PHYTOPLEX Z-GUARD PASTE 113GM TUBE (FROM STOREROOM PRODUCT) TOP SCH (21:00)
[2022-09-28] MEDS: ACETAMINOPHEN 500 MG TAB PO SCH (21:00)
[2022-09-28] MEDS: APIXABAN 2.5 MG TAB (ELIQUIS) PO SCH (21:00)
[2022-09-28] MEDS: TAMSULOSIN 0.4 MG CAP PO SCH (21:00)
[2022-09-28] MEDS: COSOPT OCUMETER PLUS 10ML (DORZOLAMIDE/TIMOLOL) OU SCH (21:00)
[2022-09-28] MEDS: OMEPRAZOLE 20MG CAP PO SCH (21:00)
[2022-09-28] MEDS: ATORVASTATIN 20 MG TAB PO SCH (21:00)
[2022-09-28] MEDS: CAPTOpril 6.25 MG PER 1/2 TABLET PO SCH (21:00)
[2022-09-29] MEDS: oxyCODONE 5MG TAB PO PRN ×4 (04:16→20:42)
[2022-09-29 05:28] LABS: BASO % 0.2 % (0.0-1.0); EOS # 0.1 10^3/uL (0.0-0.5); EOS % 2.4 % (0.0-3.0); HEMATOCRIT 24.4 % (42.0-52.0); HEMOGLOBIN 7.6 g/dl (13.5-17.5); LYMPH # 0.6 10^3/uL (1.5-5.0); LYMPH % 11.8 % (24.0-44.0); MEAN CORPUSCULAR HEMOGLOBIN 22.2 pg (27.0-33.0); MEAN CORPUSCULAR HGB CONC 31.1 g/dl (32.0-36.5); MEAN CORPUSCULAR VOLUME 71.1 fl (80.0-96.0); MONO # 0.6 10^3/uL (0.0-0.8); MONO % 12.5 % (2.0-8.0); NEUTROPHILS # 3.7 10^3/uL (1.5-8.5); NEUTROPHILS % 72.7 % (36.0-66.0); PLATELET COUNT, AUTOMATED 117 10^3/uL (150-450); RED BLOOD COUNT 3.43 10^6/uL (4.30-6.10); WHITE BLOOD COUNT 5.1 10^3/uL (4.0-10.0)
[2022-09-29 06:00] VITALS: BP 122/60; TEMP 98.4; O2SAT 95
[2022-09-29 06:00] LABS: ALBUMIN 2.9 G/DL (3.2-5.2); BILIRUBIN,TOTAL 1.2 MG/DL (0.3-1.2); CALCIUM LEVEL 8.8 MG/DL (8.3-10.6); CREATININE FOR GFR 1.37 MG/DL (0.70-1.30); GLOMERULAR FILTRATION RATE 52.7 (>35); POTASSIUM SERUM 4.6 MMOL/L (3.5-5.1); TOTAL PROTEIN 5.5 G/DL (5.7-8.2)
[2022-09-29] MEDS: FERROUS SULFATE 325MG TAB PO SCH (08:21)
[2022-09-29] MEDS: ACETAMINOPHEN 500 MG TAB PO SCH ×3 (08:22→20:42)
[2022-09-29] MEDS: ASPIRIN 81MG ENTERIC TABLET PO SCH (08:22)
[2022-09-29] MEDS: TAMSULOSIN 0.4 MG CAP PO SCH ×2 (08:22→20:43)
[2022-09-29] MEDS: DOCUSATE SODIUM 100MG CAPSULE PO SCH ×2 (08:23→20:41)
[2022-09-29] MEDS: bisoproloL fumarate 5 MG TAB PO SCH (08:23)
[2022-09-29] MEDS: APIXABAN 2.5 MG TAB (ELIQUIS) PO SCH ×2 (08:23→20:41)
[2022-09-29] MEDS: CAPTOpril 6.25 MG PER 1/2 TABLET PO SCH ×2 (08:23→20:43)
[2022-09-29] MEDS: FUROSEMIDE 20 MG TAB PO SCH (08:23)
[2022-09-29] MEDS: OMEPRAZOLE 20MG CAP PO SCH ×2 (08:23→20:42)
[2022-09-29] MEDS: REMEDY PHYTOPLEX Z-GUARD PASTE 113GM TUBE (FROM STOREROOM PRODUCT) TOP SCH ×3 (08:26→20:11)
[2022-09-29] MEDS: COSOPT OCUMETER PLUS 10ML (DORZOLAMIDE/TIMOLOL) OU SCH ×2 (11:16→20:44)
[2022-09-29 14:00] VITALS: BP 127/60; TEMP 97.6; O2SAT 95
[2022-09-29 15:04] LABS: HEMOGLOBIN 8.6 g/dl (13.5-17.5)
[2022-09-29] MEDS: IRON SUCROSE 200 MG in NS 100 ML IV SCH (15:27)
[2022-09-29] MEDS ORDERED: CALCIUM CARBONATE 500 MG CHEW U/D PO PRN (16:05)
[2022-09-29] MEDS: MULTIVITAMINS/MINERALS THERAP 1 TAB PO SCH (16:36)
[2022-09-29] MEDS: MIRALAX *UNIT DOSE* 17GM PACKET PO SCH (16:38)
[2022-09-29 20:00] VITALS: BP 116/57; TEMP 97.5; O2SAT 93
[2022-09-29] MEDS: ATORVASTATIN 20 MG TAB PO SCH (20:41)
[2022-09-29] MEDS: SENNA 8.6 MG TAB (SENOKOT) PO SCH (20:42)
[2022-09-30 06:00] VITALS: BP 126/58; TEMP 97.9; O2SAT 93
[2022-09-30] MEDS: TAMSULOSIN 0.4 MG CAP PO SCH ×2 (07:48→20:23)
[2022-09-30] MEDS: DOCUSATE SODIUM 100MG CAPSULE PO SCH ×2 (07:48→20:24)
[2022-09-30] MEDS: CAPTOpril 6.25 MG PER 1/2 TABLET PO SCH ×2 (07:48→20:26)
[2022-09-30] MEDS: MIRALAX *UNIT DOSE* 17GM PACKET PO SCH (07:50)
[2022-09-30] MEDS: APIXABAN 2.5 MG TAB (ELIQUIS) PO SCH ×2 (07:50→20:24)
[2022-09-30] MEDS: FERROUS SULFATE 325MG TAB PO SCH (07:50)
[2022-09-30] MEDS: ASPIRIN 81MG ENTERIC TABLET PO SCH (07:50)
[2022-09-30] MEDS: bisoproloL fumarate 5 MG TAB PO SCH (07:50)
[2022-09-30] MEDS: OMEPRAZOLE 20MG CAP PO SCH ×2 (07:51→20:24)
[2022-09-30] MEDS: ACETAMINOPHEN 500 MG TAB PO SCH ×3 (07:51→20:24)
[2022-09-30] MEDS: oxyCODONE 5MG TAB PO PRN (07:51)
[2022-09-30] MEDS: MULTIVITAMINS/MINERALS THERAP 1 TAB PO SCH (07:57)
[2022-09-30] MEDS: COSOPT OCUMETER PLUS 10ML (DORZOLAMIDE/TIMOLOL) OU SCH ×2 (07:58→20:26)
[2022-09-30] MEDS: REMEDY PHYTOPLEX Z-GUARD PASTE 113GM TUBE (FROM STOREROOM PRODUCT) TOP SCH ×3 (07:59→20:26)
[2022-09-30] MEDS: DICLOFENAC EPOLAMINE 1.3% PATCH TOP SCH ×2 (10:43→20:24)
[2022-09-30 14:00] VITALS: BP 114/55; TEMP 97.5; O2SAT 97
[2022-09-30] MEDS: SALIVA SUBSTITUTE(MOUTHKOTE) BTL MT SCH ×3 (14:00→20:26)
[2022-09-30] MEDS: IRON SUCROSE 200 MG in NS 100 ML IV SCH (16:05)
[2022-09-30 20:00] VITALS: BP 100/51; TEMP 97.8; O2SAT 95
[2022-09-30] MEDS: ATORVASTATIN 20 MG TAB PO SCH (20:24)
[2022-09-30] MEDS: SENNA 8.6 MG TAB (SENOKOT) PO SCH (20:24)
[2022-10-01] VITALS (9 sets, daily range): BP systolic 105–123; BP diastolic 51–62; TEMP 96.9–98.4; O2SAT 93–96
[2022-10-01 06:08] LABS: BASO % 0.2 % (0.0-1.0); EOS # 0.2 10^3/uL (0.0-0.5); HEMATOCRIT 22.9 % (42.0-52.0); HEMOGLOBIN 7.3 g/dl (13.5-17.5); LYMPH # 0.5 10^3/uL (1.5-5.0); LYMPH % 9.5 % (24.0-44.0); MEAN CORPUSCULAR HEMOGLOBIN 22.4 pg (27.0-33.0); MEAN CORPUSCULAR HGB CONC 31.9 g/dl (32.0-36.5); MEAN CORPUSCULAR VOLUME 70.2 fl (80.0-96.0); MONO # 0.6 10^3/uL (0.0-0.8); MONO % 11.3 % (2.0-8.0); NEUTROPHILS # 4.2 10^3/uL (1.5-8.5); NEUTROPHILS % 75.5 % (36.0-66.0); PLATELET COUNT, AUTOMATED 118 10^3/uL (150-450); RED BLOOD COUNT 3.26 10^6/uL (4.30-6.10); WHITE BLOOD COUNT 5.6 10^3/uL (4.0-10.0)
[2022-10-01 06:19] LABS: CALCIUM LEVEL 8.7 MG/DL (8.3-10.6); CREATININE FOR GFR 1.64 MG/DL (0.70-1.30); GLOMERULAR FILTRATION RATE 42.8 (>35); POTASSIUM SERUM 4.6 MMOL/L (3.5-5.1)
[2022-10-01] MEDS: ASPIRIN 81MG ENTERIC TABLET PO SCH (08:10)
[2022-10-01] MEDS: CAPTOpril 6.25 MG PER 1/2 TABLET PO SCH (08:13)
[2022-10-01] MEDS: OMEPRAZOLE 20MG CAP PO SCH ×2 (08:14→20:06)
[2022-10-01] MEDS: MULTIVITAMINS/MINERALS THERAP 1 TAB PO SCH (08:14)
[2022-10-01] MEDS: DOCUSATE SODIUM 100MG CAPSULE PO SCH ×2 (08:14→20:06)
[2022-10-01] MEDS: bisoproloL fumarate 5 MG TAB PO SCH (08:15)
[2022-10-01] MEDS: APIXABAN 2.5 MG TAB (ELIQUIS) PO SCH ×2 (08:15→20:06)
[2022-10-01] MEDS: TAMSULOSIN 0.4 MG CAP PO SCH ×2 (08:15→20:06)
[2022-10-01] MEDS: FUROSEMIDE 20 MG TAB PO SCH (08:15)
[2022-10-01] MEDS: ACETAMINOPHEN 500 MG TAB PO SCH ×3 (08:16→20:07)
[2022-10-01] MEDS: FERROUS SULFATE 325MG TAB PO SCH (08:16)
[2022-10-01] MEDS: MIRALAX *UNIT DOSE* 17GM PACKET PO SCH (08:17)
[2022-10-01] MEDS: COSOPT OCUMETER PLUS 10ML (DORZOLAMIDE/TIMOLOL) OU SCH ×2 (08:18→20:07)
[2022-10-01] MEDS: REMEDY PHYTOPLEX Z-GUARD PASTE 113GM TUBE (FROM STOREROOM PRODUCT) TOP SCH ×3 (08:20→19:59)
[2022-10-01] MEDS: DICLOFENAC EPOLAMINE 1.3% PATCH TOP SCH ×2 (09:51→20:07)
[2022-10-01] MEDS: SALIVA SUBSTITUTE(MOUTHKOTE) BTL MT SCH ×4 (09:51→20:08)
[2022-10-01] MEDS ORDERED: NS 500 ML IV ONE (12:30)
[2022-10-01] MEDS ORDERED: LEVALBUTEROL 1.25MG 0.5ML CONCENTRATE NEB INH PRN (12:30)
[2022-10-01 18:24] LABS: HEMATOCRIT 24.8 % (42.0-52.0); HEMOGLOBIN 7.9 g/dl (13.5-17.5)
[2022-10-01] MEDS: ATORVASTATIN 20 MG TAB PO SCH (20:06)
[2022-10-01] MEDS: SENNA 8.6 MG TAB (SENOKOT) PO SCH (20:06)
[2022-10-01] MEDS: CAPTOpril 3.125 MG PER 1/4 TABLET PO SCH (20:08)
[2022-10-02 05:46] LABS: BASO % 0.4 % (0.0-1.0); EOS # 0.2 10^3/uL (0.0-0.5); EOS % 3.4 % (0.0-3.0); HEMATOCRIT 24.7 % (42.0-52.0); HEMOGLOBIN 7.9 g/dl (13.5-17.5); LYMPH # 0.5 10^3/uL (1.5-5.0); LYMPH % 9.5 % (24.0-44.0); MEAN CORPUSCULAR HEMOGLOBIN 22.7 pg (27.0-33.0); MONO # 0.8 10^3/uL (0.0-0.8); MONO % 14.2 % (2.0-8.0); NEUTROPHILS # 3.8 10^3/uL (1.5-8.5); NEUTROPHILS % 71.9 % (36.0-66.0); PLATELET COUNT, AUTOMATED 130 10^3/uL (150-450); RED BLOOD COUNT 3.48 10^6/uL (4.30-6.10); WHITE BLOOD COUNT 5.3 10^3/uL (4.0-10.0)
[2022-10-02 06:00] VITALS: BP 107/54; TEMP 97.4; O2SAT 94
[2022-10-02 06:07] LABS: CALCIUM LEVEL 8.6 MG/DL (8.3-10.6); CREATININE FOR GFR 1.6 MG/DL (0.70-1.30); GLOMERULAR FILTRATION RATE 44.1 (>35); MAGNESIUM LEVEL 2.1 MG/DL (1.8-2.4); PHOSPHORUS LEVEL 3.1 MG/DL (2.4-5.1); POTASSIUM SERUM 4.5 MMOL/L (3.5-5.1)
[2022-10-02] MEDS: DOCUSATE SODIUM 100MG CAPSULE PO SCH ×2 (09:00→21:21)
[2022-10-02] MEDS: MIRALAX *UNIT DOSE* 17GM PACKET PO SCH (09:00)
[2022-10-02] MEDS: REMEDY PHYTOPLEX Z-GUARD PASTE 113GM TUBE (FROM STOREROOM PRODUCT) TOP SCH ×3 (09:00→21:00)
[2022-10-02] MEDS: SALIVA SUBSTITUTE(MOUTHKOTE) BTL MT SCH ×4 (09:00→21:22)
[2022-10-02] MEDS: MULTIVITAMINS/MINERALS THERAP 1 TAB PO SCH (09:47)
[2022-10-02] MEDS: TAMSULOSIN 0.4 MG CAP PO SCH ×2 (09:47→21:21)
[2022-10-02] MEDS: APIXABAN 2.5 MG TAB (ELIQUIS) PO SCH ×2 (09:48→21:21)
[2022-10-02] MEDS: FERROUS SULFATE 325MG TAB PO SCH (09:48)
[2022-10-02] MEDS: ASPIRIN 81MG ENTERIC TABLET PO SCH (09:48)
[2022-10-02] MEDS: OMEPRAZOLE 20MG CAP PO SCH ×2 (09:48→21:20)
[2022-10-02] MEDS: BISOPROLOL FUM 2.5 MG PER 1/2TAB PO SCH (09:50)
[2022-10-02] MEDS: ACETAMINOPHEN 500 MG TAB PO SCH ×3 (09:50→21:21)
[2022-10-02] MEDS: DICLOFENAC EPOLAMINE 1.3% PATCH TOP SCH ×2 (09:51→21:20)
[2022-10-02] MEDS: CAPTOpril 3.125 MG PER 1/4 TABLET PO SCH ×2 (09:51→21:21)
[2022-10-02] MEDS: COSOPT OCUMETER PLUS 10ML (DORZOLAMIDE/TIMOLOL) OU SCH ×2 (09:52→21:22)
[2022-10-02 11:16] LABS: PROCALCITONIN 0.12 ng/ml
[2022-10-02] MEDS: CEFDINIR 300 MG CAP (OMNICEF) PO SCH ×2 (13:41→21:20)
[2022-10-02] MEDS: DOXYCYCLINE HYCLATE 100MG TABLET PO SCH ×2 (13:41→21:21)
[2022-10-02 14:00] VITALS: BP 137/65; TEMP 98.2; O2SAT 95
[2022-10-02 20:00] VITALS: BP 133/59; TEMP 98.3; O2SAT 94
[2022-10-02] MEDS: guaiFENesin SYRUP 200MG 10ML UDC PO PRN (21:20)
[2022-10-02] MEDS: ATORVASTATIN 20 MG TAB PO SCH (21:20)
[2022-10-02] MEDS: SENNA 8.6 MG TAB (SENOKOT) PO SCH (21:21)
[2022-10-03] MEDS: FUROSEMIDE 20 MG TAB PO SCH (05:55)
[2022-10-03 06:00] VITALS: BP 115/58; TEMP 97.3; O2SAT 97
[2022-10-03 06:50] LABS: HEMATOCRIT 25.1 % (42.0-52.0); HEMOGLOBIN 8.1 g/dl (13.5-17.5); MEAN CORPUSCULAR HEMOGLOBIN 22.8 pg (27.0-33.0); MEAN CORPUSCULAR HGB CONC 32.3 g/dl (32.0-36.5); MEAN CORPUSCULAR VOLUME 70.5 fl (80.0-96.0); PLATELET COUNT, AUTOMATED 139 10^3/uL (150-450); RED BLOOD COUNT 3.56 10^6/uL (4.30-6.10); WHITE BLOOD COUNT 4.4 10^3/uL (4.0-10.0)
[2022-10-03 07:21] LABS: CALCIUM LEVEL 8.5 MG/DL (8.3-10.6); CREATININE FOR GFR 1.54 MG/DL (0.70-1.30); POTASSIUM SERUM 4.5 MMOL/L (3.5-5.1)
[2022-10-03] MEDS: MIRALAX *UNIT DOSE* 17GM PACKET PO SCH (09:00)
[2022-10-03] MEDS: REMEDY PHYTOPLEX Z-GUARD PASTE 113GM TUBE (FROM STOREROOM PRODUCT) TOP SCH ×3 (09:00→21:00)
[2022-10-03] MEDS: SALIVA SUBSTITUTE(MOUTHKOTE) BTL MT SCH ×4 (09:00→21:00)
[2022-10-03] MEDS: CAPTOpril 3.125 MG PER 1/4 TABLET PO SCH ×2 (09:22→21:26)
[2022-10-03] MEDS: APIXABAN 2.5 MG TAB (ELIQUIS) PO SCH ×2 (09:23→21:28)
[2022-10-03] MEDS: ASPIRIN 81MG ENTERIC TABLET PO SCH (09:23)
[2022-10-03] MEDS: DOCUSATE SODIUM 100MG CAPSULE PO SCH ×2 (09:23→21:28)
[2022-10-03] MEDS: FERROUS SULFATE 325MG TAB PO SCH (09:24)
[2022-10-03] MEDS: TAMSULOSIN 0.4 MG CAP PO SCH ×2 (09:24→21:25)
[2022-10-03] MEDS: OMEPRAZOLE 20MG CAP PO SCH ×2 (09:25→21:25)
[2022-10-03] MEDS: CEFDINIR 300 MG CAP (OMNICEF) PO SCH ×2 (09:25→21:27)
[2022-10-03] MEDS: MULTIVITAMINS/MINERALS THERAP 1 TAB PO SCH (09:25)
[2022-10-03] MEDS: BISOPROLOL FUM 2.5 MG PER 1/2TAB PO SCH (09:26)
[2022-10-03] MEDS: DOXYCYCLINE HYCLATE 100MG TABLET PO SCH ×2 (09:26→21:29)
[2022-10-03] MEDS: ACETAMINOPHEN 500 MG TAB PO SCH ×3 (09:26→21:26)
[2022-10-03] MEDS: DICLOFENAC EPOLAMINE 1.3% PATCH TOP SCH (09:27)
[2022-10-03] MEDS: COSOPT OCUMETER PLUS 10ML (DORZOLAMIDE/TIMOLOL) OU SCH ×2 (09:27→21:34)
[2022-10-03 14:00] VITALS: BP 129/60; TEMP 98.2; O2SAT 98
[2022-10-03] MEDS: LIDOCAINE 5% (LIDODERM) PATCH TD SCH (15:07)
[2022-10-03 20:00] VITALS: BP 125/60; TEMP 98.1; O2SAT 95
[2022-10-03] MEDS: ATORVASTATIN 20 MG TAB PO SCH (21:24)
[2022-10-03] MEDS: SENNA 8.6 MG TAB (SENOKOT) PO SCH (21:27)
[2022-10-04 06:00] VITALS: BP 120/61; TEMP 98.2; O2SAT 94
[2022-10-04] MEDS: LIDOCAINE 5% (LIDODERM) PATCH TD SCH (08:34)
[2022-10-04] MEDS: FERROUS SULFATE 325MG TAB PO SCH (08:35)
[2022-10-04] MEDS: CEFDINIR 300 MG CAP (OMNICEF) PO SCH ×2 (08:35→21:11)
[2022-10-04] MEDS: MULTIVITAMINS/MINERALS THERAP 1 TAB PO SCH (08:35)
[2022-10-04] MEDS: APIXABAN 2.5 MG TAB (ELIQUIS) PO SCH ×2 (08:35→21:12)
[2022-10-04] MEDS: TAMSULOSIN 0.4 MG CAP PO SCH ×2 (08:35→21:12)
[2022-10-04] MEDS: ACETAMINOPHEN 500 MG TAB PO SCH ×3 (08:35→21:12)
[2022-10-04] MEDS: ASPIRIN 81MG ENTERIC TABLET PO SCH (08:35)
[2022-10-04] MEDS: DOXYCYCLINE HYCLATE 100MG TABLET PO SCH ×2 (08:35→21:12)
[2022-10-04] MEDS: OMEPRAZOLE 20MG CAP PO SCH ×2 (08:35→21:12)
[2022-10-04] MEDS: CAPTOpril 3.125 MG PER 1/4 TABLET PO SCH ×2 (08:36→21:11)
[2022-10-04] MEDS: MIRALAX *UNIT DOSE* 17GM PACKET PO SCH (08:36)
[2022-10-04] MEDS: BISOPROLOL FUM 2.5 MG PER 1/2TAB PO SCH (08:36)
[2022-10-04] MEDS: DOCUSATE SODIUM 100MG CAPSULE PO SCH ×2 (08:36→21:12)
[2022-10-04] MEDS: REMEDY PHYTOPLEX Z-GUARD PASTE 113GM TUBE (FROM STOREROOM PRODUCT) TOP SCH ×3 (08:37→21:00)
[2022-10-04] MEDS: COSOPT OCUMETER PLUS 10ML (DORZOLAMIDE/TIMOLOL) OU SCH ×2 (08:37→21:12)
[2022-10-04] MEDS: SALIVA SUBSTITUTE(MOUTHKOTE) BTL MT SCH ×4 (08:38→21:11)
[2022-10-04 14:00] VITALS: BP 136/57; TEMP 97.6; O2SAT 95
[2022-10-04 20:00] VITALS: BP 118/58; TEMP 97; O2SAT 96
[2022-10-04] MEDS: guaiFENesin SYRUP 200MG 10ML UDC PO PRN (21:11)
[2022-10-04] MEDS: SENNA 8.6 MG TAB (SENOKOT) PO SCH (21:12)
[2022-10-04] MEDS: ATORVASTATIN 20 MG TAB PO SCH (21:12)
[2022-10-05 06:00] VITALS: BP 122/60; TEMP 97.5; O2SAT 97
[2022-10-05] MEDS: FUROSEMIDE 20 MG TAB PO SCH (06:23)
[2022-10-05] MEDS: OMEPRAZOLE 20MG CAP PO SCH ×2 (07:56→19:41)
[2022-10-05] MEDS: DOXYCYCLINE HYCLATE 100MG TABLET PO SCH ×2 (07:56→19:42)
[2022-10-05] MEDS: CEFDINIR 300 MG CAP (OMNICEF) PO SCH ×2 (07:56→19:42)
[2022-10-05] MEDS: LIDOCAINE 5% (LIDODERM) PATCH TD SCH (07:56)
[2022-10-05] MEDS: ASPIRIN 81MG ENTERIC TABLET PO SCH (07:57)
[2022-10-05] MEDS: TAMSULOSIN 0.4 MG CAP PO SCH ×2 (07:57→19:42)
[2022-10-05] MEDS: APIXABAN 2.5 MG TAB (ELIQUIS) PO SCH ×2 (07:57→19:41)
[2022-10-05] MEDS: BISOPROLOL FUM 2.5 MG PER 1/2TAB PO SCH (07:57)
[2022-10-05] MEDS: FERROUS SULFATE 325MG TAB PO SCH (07:57)
[2022-10-05] MEDS: MULTIVITAMINS/MINERALS THERAP 1 TAB PO SCH (07:57)
[2022-10-05] MEDS: DOCUSATE SODIUM 100MG CAPSULE PO SCH ×2 (07:57→19:45)
[2022-10-05] MEDS: CAPTOpril 3.125 MG PER 1/4 TABLET PO SCH ×2 (07:58→20:04)
[2022-10-05] MEDS: ACETAMINOPHEN 500 MG TAB PO SCH ×3 (07:58→19:44)
[2022-10-05] MEDS: SALIVA SUBSTITUTE(MOUTHKOTE) BTL MT SCH ×4 (07:59→19:46)
[2022-10-05] MEDS: MIRALAX *UNIT DOSE* 17GM PACKET PO SCH (07:59)
[2022-10-05] MEDS: REMEDY PHYTOPLEX Z-GUARD PASTE 113GM TUBE (FROM STOREROOM PRODUCT) TOP SCH ×3 (08:00→19:45)
[2022-10-05] MEDS: COSOPT OCUMETER PLUS 10ML (DORZOLAMIDE/TIMOLOL) OU SCH ×2 (08:00→19:45)
[2022-10-05 11:03] LABS: BASO % 0.8 % (0.0-1.0); EOS # 0.2 10^3/uL (0.0-0.5); EOS % 4.3 % (0.0-3.0); HEMATOCRIT 27.3 % (42.0-52.0); HEMOGLOBIN 8.3 g/dl (13.5-17.5); LYMPH # 0.5 10^3/uL (1.5-5.0); LYMPH % 12.5 % (24.0-44.0); MEAN CORPUSCULAR HEMOGLOBIN 22.4 pg (27.0-33.0); MEAN CORPUSCULAR HGB CONC 30.4 g/dl (32.0-36.5); MEAN CORPUSCULAR VOLUME 73.6 fl (80.0-96.0); MONO # 0.4 10^3/uL (0.0-0.8); MONO % 10.7 % (2.0-8.0); NEUTROPHILS # 2.8 10^3/uL (1.5-8.5); NEUTROPHILS % 71.2 % (36.0-66.0); PLATELET COUNT, AUTOMATED 184 10^3/uL (150-450); RED BLOOD COUNT 3.71 10^6/uL (4.30-6.10); WHITE BLOOD COUNT 3.9 10^3/uL (4.0-10.0)
[2022-10-05 11:31] LABS: CALCIUM LEVEL 8.9 MG/DL (8.3-10.6); CREATININE FOR GFR 1.36 MG/DL (0.70-1.30); GLOMERULAR FILTRATION RATE 53.1 (>35); POTASSIUM SERUM 4.6 MMOL/L (3.5-5.1)
[2022-10-05 14:00] VITALS: BP 101/51; TEMP 97.3; O2SAT 96
[2022-10-05 19:40] VITALS: BP 117/59
[2022-10-05] MEDS: ATORVASTATIN 20 MG TAB PO SCH (19:41)
[2022-10-05] MEDS: SENNA 8.6 MG TAB (SENOKOT) PO SCH (19:44)
[2022-10-05 20:00] VITALS: BP 117/59; TEMP 97.1; O2SAT 95
[2022-10-06 06:00] VITALS: BP 135/64; TEMP 97.8; O2SAT 96
[2022-10-06] MEDS: SALIVA SUBSTITUTE(MOUTHKOTE) BTL MT SCH ×4 (08:31→19:44)
[2022-10-06] MEDS: TAMSULOSIN 0.4 MG CAP PO SCH ×2 (08:32→19:39)
[2022-10-06] MEDS: DOXYCYCLINE HYCLATE 100MG TABLET PO SCH ×2 (08:32→19:40)
[2022-10-06] MEDS: ACETAMINOPHEN 500 MG TAB PO SCH ×3 (08:32→19:42)
[2022-10-06] MEDS: BISOPROLOL FUM 2.5 MG PER 1/2TAB PO SCH (08:32)
[2022-10-06] MEDS: CAPTOpril 3.125 MG PER 1/4 TABLET PO SCH ×2 (08:32→19:40)
[2022-10-06] MEDS: APIXABAN 2.5 MG TAB (ELIQUIS) PO SCH ×2 (08:32→19:40)
[2022-10-06] MEDS: FERROUS SULFATE 325MG TAB PO SCH (08:33)
[2022-10-06] MEDS: MULTIVITAMINS/MINERALS THERAP 1 TAB PO SCH (08:33)
[2022-10-06] MEDS: CEFDINIR 300 MG CAP (OMNICEF) PO SCH ×2 (08:33→19:39)
[2022-10-06] MEDS: ASPIRIN 81MG ENTERIC TABLET PO SCH (08:33)
[2022-10-06] MEDS: OMEPRAZOLE 20MG CAP PO SCH ×2 (08:33→19:40)
[2022-10-06] MEDS: DOCUSATE SODIUM 100MG CAPSULE PO SCH ×2 (08:34→19:43)
[2022-10-06] MEDS: COSOPT OCUMETER PLUS 10ML (DORZOLAMIDE/TIMOLOL) OU SCH ×2 (08:34→19:44)
[2022-10-06] MEDS: LIDOCAINE 5% (LIDODERM) PATCH TD SCH (08:34)
[2022-10-06] MEDS: REMEDY PHYTOPLEX Z-GUARD PASTE 113GM TUBE (FROM STOREROOM PRODUCT) TOP SCH ×3 (08:34→19:45)
[2022-10-06] MEDS: MIRALAX *UNIT DOSE* 17GM PACKET PO SCH (08:34)
[2022-10-06 14:00] VITALS: BP 140/66; TEMP 98; O2SAT 94
[2022-10-06] MEDS: SODIUM CHLORIDE NASAL 0.65% SPRAY BTL (OCEAN) SCH ×2 (16:00→19:45)
[2022-10-06] MEDS: LORATADINE 10 MG TAB PO SCH (16:42)
[2022-10-06] MEDS: FLUTICASONE PROP 0.05% NASAL SPRAY 16 GM (FLONASE) NARES SCH ×2 (16:43→19:43)
[2022-10-06] MEDS: ATORVASTATIN 20 MG TAB PO SCH (19:40)
[2022-10-06] MEDS: SENNA 8.6 MG TAB (SENOKOT) PO SCH (19:42)
[2022-10-06 20:00] VITALS: BP 101/54; TEMP 97.9; O2SAT 94
[2022-10-07 05:28] VITALS: BP 116/64; TEMP 96.8; O2SAT 95
[2022-10-07] MEDS: FUROSEMIDE 20 MG TAB PO SCH (05:33)
[2022-10-07 06:00] VITALS: BP 116/64; TEMP 96.8; O2SAT 95
[2022-10-07] MEDS: MIRALAX *UNIT DOSE* 17GM PACKET PO SCH (09:00)
[2022-10-07] MEDS: LORATADINE 10 MG TAB PO SCH (09:00)
[2022-10-07] MEDS: SODIUM CHLORIDE NASAL 0.65% SPRAY BTL (OCEAN) SCH ×3 (09:00→19:33)
[2022-10-07] MEDS: DOCUSATE SODIUM 100MG CAPSULE PO SCH ×2 (09:00→19:28)
[2022-10-07] MEDS: REMEDY PHYTOPLEX Z-GUARD PASTE 113GM TUBE (FROM STOREROOM PRODUCT) TOP SCH ×3 (09:00→19:29)
[2022-10-07] MEDS: FERROUS SULFATE 325MG TAB PO SCH (09:30)
[2022-10-07] MEDS: APIXABAN 2.5 MG TAB (ELIQUIS) PO SCH ×2 (09:30→19:31)
[2022-10-07] MEDS: OMEPRAZOLE 20MG CAP PO SCH ×2 (09:30→19:30)
[2022-10-07] MEDS: ASPIRIN 81MG ENTERIC TABLET PO SCH (09:30)
[2022-10-07] MEDS: TAMSULOSIN 0.4 MG CAP PO SCH ×2 (09:30→19:30)
[2022-10-07] MEDS: MULTIVITAMINS/MINERALS THERAP 1 TAB PO SCH (09:31)
[2022-10-07] MEDS: FLUTICASONE PROP 0.05% NASAL SPRAY 16 GM (FLONASE) NARES SCH ×2 (09:32→19:33)
[2022-10-07] MEDS: BISOPROLOL FUM 2.5 MG PER 1/2TAB PO SCH (09:32)
[2022-10-07] MEDS: LIDOCAINE 5% (LIDODERM) PATCH TD SCH (09:33)
[2022-10-07] MEDS: COSOPT OCUMETER PLUS 10ML (DORZOLAMIDE/TIMOLOL) OU SCH ×2 (09:33→19:32)
[2022-10-07] MEDS: ACETAMINOPHEN 500 MG TAB PO SCH ×3 (09:34→19:31)
[2022-10-07] MEDS: CAPTOpril 3.125 MG PER 1/4 TABLET PO SCH ×2 (09:35→19:27)
[2022-10-07] MEDS: SALIVA SUBSTITUTE(MOUTHKOTE) BTL MT SCH ×4 (09:36→19:31)
[2022-10-07 14:00] VITALS: BP 131/72; TEMP 97.3; O2SAT 95
[2022-10-07] MEDS: SENNA 8.6 MG TAB (SENOKOT) PO SCH (19:29)
[2022-10-07] MEDS: ATORVASTATIN 20 MG TAB PO SCH (19:31)
[2022-10-07 20:00] VITALS: BP 100/53; TEMP 97.9; O2SAT 94
[2022-10-08 05:42] LABS: BASO % 0.7 % (0.0-1.0); EOS # 0.2 10^3/uL (0.0-0.5); EOS % 5.2 % (0.0-3.0); HEMATOCRIT 25.6 % (42.0-52.0); HEMOGLOBIN 7.9 g/dl (13.5-17.5); LYMPH # 0.7 10^3/uL (1.5-5.0); LYMPH % 16.7 % (24.0-44.0); MEAN CORPUSCULAR HEMOGLOBIN 22.4 pg (27.0-33.0); MEAN CORPUSCULAR HGB CONC 30.9 g/dl (32.0-36.5); MEAN CORPUSCULAR VOLUME 72.5 fl (80.0-96.0); MONO # 0.4 10^3/uL (0.0-0.8); MONO % 10.6 % (2.0-8.0); NEUTROPHILS # 2.7 10^3/uL (1.5-8.5); NEUTROPHILS % 66.1 % (36.0-66.0); PLATELET COUNT, AUTOMATED 219 10^3/uL (150-450); RED BLOOD COUNT 3.53 10^6/uL (4.30-6.10); WHITE BLOOD COUNT 4.1 10^3/uL (4.0-10.0)
[2022-10-08 06:00] VITALS: BP 103/45; TEMP 97.2; O2SAT 90
[2022-10-08 06:07] LABS: CALCIUM LEVEL 8.9 MG/DL (8.3-10.6); CREATININE FOR GFR 1.5 MG/DL (0.70-1.30); GLOMERULAR FILTRATION RATE 47.4 (>35); POTASSIUM SERUM 4.4 MMOL/L (3.5-5.1)
[2022-10-08] MEDS: BISOPROLOL FUM 2.5 MG PER 1/2TAB PO SCH (09:00)
[2022-10-08] MEDS: CAPTOpril 3.125 MG PER 1/4 TABLET PO SCH ×2 (09:00→20:19)
[2022-10-08] MEDS: DOCUSATE SODIUM 100MG CAPSULE PO SCH ×2 (09:00→20:16)
[2022-10-08] MEDS: MIRALAX *UNIT DOSE* 17GM PACKET PO SCH (09:00)
[2022-10-08] MEDS: SODIUM CHLORIDE NASAL 0.65% SPRAY BTL (OCEAN) SCH ×3 (09:00→20:20)
[2022-10-08] MEDS: REMEDY PHYTOPLEX Z-GUARD PASTE 113GM TUBE (FROM STOREROOM PRODUCT) TOP SCH ×3 (09:00→20:16)
[2022-10-08] MEDS: TAMSULOSIN 0.4 MG CAP PO SCH ×2 (09:15→20:19)
[2022-10-08] MEDS: LIDOCAINE 5% (LIDODERM) PATCH TD SCH (09:15)
[2022-10-08] MEDS: ACETAMINOPHEN 500 MG TAB PO SCH ×3 (09:17→20:19)
[2022-10-08] MEDS: OMEPRAZOLE 20MG CAP PO SCH ×2 (09:17→20:19)
[2022-10-08] MEDS: MULTIVITAMINS/MINERALS THERAP 1 TAB PO SCH (09:17)
[2022-10-08] MEDS: ASPIRIN 81MG ENTERIC TABLET PO SCH (09:17)
[2022-10-08] MEDS: APIXABAN 2.5 MG TAB (ELIQUIS) PO SCH ×2 (09:18→20:19)
[2022-10-08] MEDS: LORATADINE 10 MG TAB PO SCH (09:18)
[2022-10-08] MEDS: FERROUS SULFATE 325MG TAB PO SCH (09:18)
[2022-10-08] MEDS: COSOPT OCUMETER PLUS 10ML (DORZOLAMIDE/TIMOLOL) OU SCH ×2 (09:19→20:20)
[2022-10-08] MEDS: FLUTICASONE PROP 0.05% NASAL SPRAY 16 GM (FLONASE) NARES SCH ×2 (09:19→20:20)
[2022-10-08] MEDS: SALIVA SUBSTITUTE(MOUTHKOTE) BTL MT SCH ×4 (09:21→20:20)
[2022-10-08 14:00] VITALS: BP 102/52; TEMP 98.3; O2SAT 94
[2022-10-08 19:58] VITALS: BP 117/57; TEMP 97.8; O2SAT 94
[2022-10-08] MEDS: SENNA 8.6 MG TAB (SENOKOT) PO SCH (20:16)
[2022-10-08] MEDS: ATORVASTATIN 20 MG TAB PO SCH (20:19)
[2022-10-09] MEDS: FUROSEMIDE 20 MG TAB PO SCH (05:36)
[2022-10-09 06:00] VITALS: BP 138/65; TEMP 98.2; O2SAT 95
[2022-10-09] MEDS: MIRALAX *UNIT DOSE* 17GM PACKET PO SCH ×2 (08:20→13:00)
[2022-10-09] MEDS: DOCUSATE SODIUM 100MG CAPSULE PO SCH ×2 (08:21→19:44)
[2022-10-09 08:30] VITALS: BP 113/53
[2022-10-09] MEDS: MULTIVITAMINS/MINERALS THERAP 1 TAB PO SCH (08:33)
[2022-10-09] MEDS: FERROUS SULFATE 325MG TAB PO SCH (08:33)
[2022-10-09] MEDS: OMEPRAZOLE 20MG CAP PO SCH ×2 (08:33→19:41)
[2022-10-09] MEDS: TAMSULOSIN 0.4 MG CAP PO SCH ×2 (08:34→19:41)
[2022-10-09] MEDS: CAPTOpril 3.125 MG PER 1/4 TABLET PO SCH ×2 (08:34→19:42)
[2022-10-09] MEDS: APIXABAN 2.5 MG TAB (ELIQUIS) PO SCH ×2 (08:34→19:42)
[2022-10-09] MEDS: ACETAMINOPHEN 500 MG TAB PO SCH ×3 (08:34→19:42)
[2022-10-09] MEDS: SODIUM CHLORIDE NASAL 0.65% SPRAY BTL (OCEAN) SCH ×3 (08:35→19:43)
[2022-10-09] MEDS: LORATADINE 10 MG TAB PO SCH (08:35)
[2022-10-09] MEDS: BISOPROLOL FUM 2.5 MG PER 1/2TAB PO SCH (08:35)
[2022-10-09] MEDS: FLUTICASONE PROP 0.05% NASAL SPRAY 16 GM (FLONASE) NARES SCH ×2 (08:35→19:43)
[2022-10-09] MEDS: ASPIRIN 81MG ENTERIC TABLET PO SCH (08:35)
[2022-10-09] MEDS: COSOPT OCUMETER PLUS 10ML (DORZOLAMIDE/TIMOLOL) OU SCH ×2 (08:35→19:43)
[2022-10-09] MEDS: LIDOCAINE 5% (LIDODERM) PATCH TD SCH (08:36)
[2022-10-09] MEDS: REMEDY PHYTOPLEX Z-GUARD PASTE 113GM TUBE (FROM STOREROOM PRODUCT) TOP SCH ×3 (08:36→19:12)
[2022-10-09] MEDS: SALIVA SUBSTITUTE(MOUTHKOTE) BTL MT SCH ×4 (08:36→19:43)
[2022-10-09 14:00] VITALS: BP 134/60; TEMP 97.8; O2SAT 98
[2022-10-09] MEDS: ATORVASTATIN 20 MG TAB PO SCH (19:42)
[2022-10-09] MEDS: SENNA 8.6 MG TAB (SENOKOT) PO SCH (19:44)
[2022-10-09 20:00] VITALS: BP 117/58; TEMP 97.4; O2SAT 95
[2022-10-10 06:00] VITALS: BP 115/57; TEMP 97; O2SAT 95
[2022-10-10] MEDS: REMEDY PHYTOPLEX Z-GUARD PASTE 113GM TUBE (FROM STOREROOM PRODUCT) TOP SCH ×3 (07:39→20:12)
[2022-10-10] MEDS: MULTIVITAMINS/MINERALS THERAP 1 TAB PO SCH (08:37)
[2022-10-10] MEDS: MIRALAX *UNIT DOSE* 17GM PACKET PO SCH (08:37)
[2022-10-10] MEDS: APIXABAN 2.5 MG TAB (ELIQUIS) PO SCH ×2 (08:37→20:09)
[2022-10-10] MEDS: OMEPRAZOLE 20MG CAP PO SCH ×2 (08:37→20:11)
[2022-10-10] MEDS: LIDOCAINE 5% (LIDODERM) PATCH TD SCH (08:37)
[2022-10-10] MEDS: FERROUS SULFATE 325MG TAB PO SCH (08:37)
[2022-10-10] MEDS: ACETAMINOPHEN 500 MG TAB PO SCH ×3 (08:38→20:11)
[2022-10-10] MEDS: ASPIRIN 81MG ENTERIC TABLET PO SCH (08:38)
[2022-10-10] MEDS: CAPTOpril 3.125 MG PER 1/4 TABLET PO SCH ×2 (08:38→20:10)
[2022-10-10] MEDS: LORATADINE 10 MG TAB PO SCH (08:38)
[2022-10-10] MEDS: TAMSULOSIN 0.4 MG CAP PO SCH ×2 (08:38→20:09)
[2022-10-10] MEDS: BISOPROLOL FUM 2.5 MG PER 1/2TAB PO SCH (08:39)
[2022-10-10] MEDS: COSOPT OCUMETER PLUS 10ML (DORZOLAMIDE/TIMOLOL) OU SCH ×2 (08:40→20:11)
[2022-10-10] MEDS: FLUTICASONE PROP 0.05% NASAL SPRAY 16 GM (FLONASE) NARES SCH ×2 (08:40→20:11)
[2022-10-10] MEDS: SODIUM CHLORIDE NASAL 0.65% SPRAY BTL (OCEAN) SCH ×3 (08:40→20:11)
[2022-10-10] MEDS: SALIVA SUBSTITUTE(MOUTHKOTE) BTL MT SCH ×4 (08:41→20:12)
[2022-10-10] MEDS: DOCUSATE SODIUM 100MG CAPSULE PO SCH ×2 (08:41→20:12)
[2022-10-10 14:00] VITALS: BP 118/58; TEMP 97.8; O2SAT 97
[2022-10-10 20:00] VITALS: BP 111/55; TEMP 97.4; O2SAT 96
[2022-10-10] MEDS: ATORVASTATIN 20 MG TAB PO SCH (20:09)
[2022-10-10] MEDS: SENNA 8.6 MG TAB (SENOKOT) PO SCH (20:12)
[2022-10-11] MEDS: FUROSEMIDE 20 MG TAB PO SCH (05:20)
[2022-10-11 06:00] VITALS: BP 122/60; TEMP 97.2; O2SAT 95
[2022-10-11] MEDS: SODIUM CHLORIDE NASAL 0.65% SPRAY BTL (OCEAN) SCH ×3 (09:00→20:24)
[2022-10-11] MEDS: REMEDY PHYTOPLEX Z-GUARD PASTE 113GM TUBE (FROM STOREROOM PRODUCT) TOP SCH ×3 (09:00→20:24)
[2022-10-11] MEDS: LIDOCAINE 5% (LIDODERM) PATCH TD SCH (09:16)
[2022-10-11] MEDS: MIRALAX *UNIT DOSE* 17GM PACKET PO SCH (09:16)
[2022-10-11] MEDS: LORATADINE 10 MG TAB PO SCH (09:17)
[2022-10-11] MEDS: MULTIVITAMINS/MINERALS THERAP 1 TAB PO SCH (09:17)
[2022-10-11] MEDS: APIXABAN 2.5 MG TAB (ELIQUIS) PO SCH ×2 (09:17→20:21)
[2022-10-11] MEDS: ASPIRIN 81MG ENTERIC TABLET PO SCH (09:17)
[2022-10-11] MEDS: TAMSULOSIN 0.4 MG CAP PO SCH ×2 (09:17→20:21)
[2022-10-11] MEDS: FERROUS SULFATE 325MG TAB PO SCH (09:17)
[2022-10-11] MEDS: DOCUSATE SODIUM 100MG CAPSULE PO SCH ×2 (09:17→20:23)
[2022-10-11] MEDS: CAPTOpril 3.125 MG PER 1/4 TABLET PO SCH ×2 (09:17→20:22)
[2022-10-11] MEDS: OMEPRAZOLE 20MG CAP PO SCH ×2 (09:18→20:22)
[2022-10-11] MEDS: BISOPROLOL FUM 2.5 MG PER 1/2TAB PO SCH (09:18)
[2022-10-11] MEDS: ACETAMINOPHEN 500 MG TAB PO SCH ×3 (09:18→20:22)
[2022-10-11] MEDS: FLUTICASONE PROP 0.05% NASAL SPRAY 16 GM (FLONASE) NARES SCH ×2 (09:19→20:23)
[2022-10-11] MEDS: SALIVA SUBSTITUTE(MOUTHKOTE) BTL MT SCH ×4 (09:19→20:23)
[2022-10-11] MEDS: COSOPT OCUMETER PLUS 10ML (DORZOLAMIDE/TIMOLOL) OU SCH ×2 (09:19→20:23)
[2022-10-11 14:00] VITALS: BP 110/53; TEMP 98.6; O2SAT 97
[2022-10-11 20:00] VITALS: BP 114/53; TEMP 97.7; O2SAT 95
[2022-10-11] MEDS: ATORVASTATIN 20 MG TAB PO SCH (20:21)
[2022-10-11] MEDS: SENNA 8.6 MG TAB (SENOKOT) PO SCH (20:24)
[2022-10-12 06:00] VITALS: BP 119/58; TEMP 97.6; O2SAT 100
[2022-10-12] MEDS: SODIUM CHLORIDE NASAL 0.65% SPRAY BTL (OCEAN) SCH ×3 (09:00→20:09)
[2022-10-12] MEDS: REMEDY PHYTOPLEX Z-GUARD PASTE 113GM TUBE (FROM STOREROOM PRODUCT) TOP SCH ×3 (09:00→20:09)
[2022-10-12] MEDS: MIRALAX *UNIT DOSE* 17GM PACKET PO SCH (09:11)
[2022-10-12] MEDS: LORATADINE 10 MG TAB PO SCH (09:11)
[2022-10-12] MEDS: APIXABAN 2.5 MG TAB (ELIQUIS) PO SCH ×2 (09:11→20:07)
[2022-10-12] MEDS: FERROUS SULFATE 325MG TAB PO SCH (09:11)
[2022-10-12] MEDS: SALIVA SUBSTITUTE(MOUTHKOTE) BTL MT SCH ×4 (09:11→20:06)
[2022-10-12] MEDS: LIDOCAINE 5% (LIDODERM) PATCH TD SCH (09:11)
[2022-10-12] MEDS: DOCUSATE SODIUM 100MG CAPSULE PO SCH ×2 (09:11→20:09)
[2022-10-12] MEDS: MULTIVITAMINS/MINERALS THERAP 1 TAB PO SCH (09:12)
[2022-10-12] MEDS: ASPIRIN 81MG ENTERIC TABLET PO SCH (09:12)
[2022-10-12] MEDS: TAMSULOSIN 0.4 MG CAP PO SCH ×2 (09:12→20:07)
[2022-10-12] MEDS: OMEPRAZOLE 20MG CAP PO SCH ×2 (09:12→20:07)
[2022-10-12] MEDS: BISOPROLOL FUM 2.5 MG PER 1/2TAB PO SCH (09:12)
[2022-10-12] MEDS: ACETAMINOPHEN 500 MG TAB PO SCH ×3 (09:13→20:07)
[2022-10-12] MEDS: FLUTICASONE PROP 0.05% NASAL SPRAY 16 GM (FLONASE) NARES SCH ×2 (09:13→20:08)
[2022-10-12] MEDS: COSOPT OCUMETER PLUS 10ML (DORZOLAMIDE/TIMOLOL) OU SCH ×2 (09:13→20:08)
[2022-10-12] MEDS: CAPTOpril 3.125 MG PER 1/4 TABLET PO SCH ×2 (09:14→20:09)
[2022-10-12 20:00] VITALS: BP 103/54; TEMP 97.9; O2SAT 95
[2022-10-12] MEDS: ATORVASTATIN 20 MG TAB PO SCH (20:07)
[2022-10-12] MEDS: guaiFENesin SYRUP 200MG 10ML UDC PO PRN (20:08)
[2022-10-12] MEDS: SENNA 8.6 MG TAB (SENOKOT) PO SCH (20:09)
[2022-10-13] MEDS: FUROSEMIDE 20 MG TAB PO SCH (05:57)
[2022-10-13 06:00] VITALS: BP 120/57; TEMP 97.6; O2SAT 95
[2022-10-13] MEDS: FERROUS SULFATE 325MG TAB PO SCH (08:20)
[2022-10-13] MEDS: MULTIVITAMINS/MINERALS THERAP 1 TAB PO SCH (08:20)
[2022-10-13] MEDS: ASPIRIN 81MG ENTERIC TABLET PO SCH (08:20)
[2022-10-13] MEDS: ACETAMINOPHEN 500 MG TAB PO SCH ×3 (08:21→20:00)
[2022-10-13] MEDS: LIDOCAINE 5% (LIDODERM) PATCH TD SCH (08:21)
[2022-10-13] MEDS: OMEPRAZOLE 20MG CAP PO SCH ×2 (08:21→19:59)
[2022-10-13] MEDS: BISOPROLOL FUM 2.5 MG PER 1/2TAB PO SCH (08:21)
[2022-10-13] MEDS: APIXABAN 2.5 MG TAB (ELIQUIS) PO SCH ×2 (08:21→19:58)
[2022-10-13] MEDS: CAPTOpril 3.125 MG PER 1/4 TABLET PO SCH ×2 (08:21→19:59)
[2022-10-13] MEDS: MIRALAX *UNIT DOSE* 17GM PACKET PO SCH (08:21)
[2022-10-13] MEDS: TAMSULOSIN 0.4 MG CAP PO SCH ×2 (08:21→19:58)
[2022-10-13] MEDS: REMEDY PHYTOPLEX Z-GUARD PASTE 113GM TUBE (FROM STOREROOM PRODUCT) TOP SCH ×3 (08:22→19:16)
[2022-10-13] MEDS: LORATADINE 10 MG TAB PO SCH (08:22)
[2022-10-13] MEDS: SODIUM CHLORIDE NASAL 0.65% SPRAY BTL (OCEAN) SCH ×3 (08:22→20:01)
[2022-10-13] MEDS: FLUTICASONE PROP 0.05% NASAL SPRAY 16 GM (FLONASE) NARES SCH ×2 (08:22→20:00)
[2022-10-13] MEDS: DOCUSATE SODIUM 100MG CAPSULE PO SCH ×2 (08:22→19:16)
[2022-10-13] MEDS: COSOPT OCUMETER PLUS 10ML (DORZOLAMIDE/TIMOLOL) OU SCH ×2 (08:22→20:00)
[2022-10-13] MEDS: SALIVA SUBSTITUTE(MOUTHKOTE) BTL MT SCH ×4 (08:23→20:35)
[2022-10-13 14:00] VITALS: BP 136/63; TEMP 98; O2SAT 100
[2022-10-13] MEDS: SENNA 8.6 MG TAB (SENOKOT) PO SCH (19:16)
[2022-10-13] MEDS: ATORVASTATIN 20 MG TAB PO SCH (19:58)
[2022-10-13 20:00] VITALS: BP 111/56; TEMP 98.1; O2SAT 95
[2022-10-13] MEDS: guaiFENesin SYRUP 200MG 10ML UDC PO PRN (20:00)
[2022-10-14 06:00] VITALS: BP 126/60; TEMP 97.1; O2SAT 96
[2022-10-14] MEDS: DOCUSATE SODIUM 100MG CAPSULE PO SCH ×2 (06:59→20:49)
[2022-10-14] MEDS: LIDOCAINE 5% (LIDODERM) PATCH TD SCH (07:04)
[2022-10-14] MEDS: MIRALAX *UNIT DOSE* 17GM PACKET PO SCH (07:04)
[2022-10-14] MEDS: OMEPRAZOLE 20MG CAP PO SCH ×2 (07:05→20:49)
[2022-10-14] MEDS: ASPIRIN 81MG ENTERIC TABLET PO SCH (07:05)
[2022-10-14] MEDS: CAPTOpril 3.125 MG PER 1/4 TABLET PO SCH ×2 (07:05→20:49)
[2022-10-14] MEDS: FERROUS SULFATE 325MG TAB PO SCH (07:06)
[2022-10-14] MEDS: BISOPROLOL FUM 2.5 MG PER 1/2TAB PO SCH (07:06)
[2022-10-14] MEDS: LORATADINE 10 MG TAB PO SCH (07:06)
[2022-10-14] MEDS: ACETAMINOPHEN 500 MG TAB PO SCH ×3 (07:06→20:48)
[2022-10-14] MEDS: APIXABAN 2.5 MG TAB (ELIQUIS) PO SCH ×2 (07:06→20:48)
[2022-10-14] MEDS: TAMSULOSIN 0.4 MG CAP PO SCH ×2 (07:06→20:49)
[2022-10-14] MEDS: MULTIVITAMINS/MINERALS THERAP 1 TAB PO SCH (07:06)
[2022-10-14] MEDS: FLUTICASONE PROP 0.05% NASAL SPRAY 16 GM (FLONASE) NARES SCH ×2 (07:07→20:50)
[2022-10-14] MEDS: COSOPT OCUMETER PLUS 10ML (DORZOLAMIDE/TIMOLOL) OU SCH ×2 (07:07→20:49)
[2022-10-14] MEDS: REMEDY PHYTOPLEX Z-GUARD PASTE 113GM TUBE (FROM STOREROOM PRODUCT) TOP SCH ×3 (07:07→20:51)
[2022-10-14] MEDS: SODIUM CHLORIDE NASAL 0.65% SPRAY BTL (OCEAN) SCH ×3 (07:07→20:51)
[2022-10-14] MEDS: SALIVA SUBSTITUTE(MOUTHKOTE) BTL MT SCH ×4 (08:08→20:51)
[2022-10-14 14:00] VITALS: BP 142/65; TEMP 98.5; O2SAT 100
[2022-10-14] MEDS ORDERED: REMDESIVIR 200 MG in NS 250 ML IV ONE (17:00)
[2022-10-14 20:00] VITALS: BP 119/59; TEMP 98.1; O2SAT 95
[2022-10-14] MEDS: ATORVASTATIN 20 MG TAB PO SCH (20:48)
[2022-10-14] MEDS: SENNA 8.6 MG TAB (SENOKOT) PO SCH (20:49)
[2022-10-14 20:50] VITALS: BP 138/69; TEMP 98.2; O2SAT 95
[2022-10-14] MEDS: guaiFENesin SYRUP 200MG 10ML UDC PO PRN (20:50)
[2022-10-15] MEDS: guaiFENesin SYRUP 200MG 10ML UDC PO PRN (02:09)
[2022-10-15 02:12] VITALS: BP 123/63; TEMP 98.2; O2SAT 94
[2022-10-15] MEDS ORDERED: DEXTROMETHORPHAN 60MG/10ML SUSP 90ML BTL(DELSYM) PO PRN (04:25)
[2022-10-15 05:03] VITALS: BP 110/59; TEMP 98.2; O2SAT 93
[2022-10-15] MEDS: FUROSEMIDE 20 MG TAB PO SCH (05:08)
[2022-10-15] MEDS: FERROUS SULFATE 325MG TAB PO SCH (08:50)
[2022-10-15] MEDS: ASPIRIN 81MG ENTERIC TABLET PO SCH (08:50)
[2022-10-15] MEDS: OMEPRAZOLE 20MG CAP PO SCH ×2 (08:50→21:04)
[2022-10-15] MEDS: MULTIVITAMINS/MINERALS THERAP 1 TAB PO SCH (08:50)
[2022-10-15] MEDS: LORATADINE 10 MG TAB PO SCH (08:50)
[2022-10-15] MEDS: TAMSULOSIN 0.4 MG CAP PO SCH ×2 (08:50→21:04)
[2022-10-15] MEDS: CAPTOpril 3.125 MG PER 1/4 TABLET PO SCH ×2 (08:51→21:04)
[2022-10-15] MEDS: APIXABAN 2.5 MG TAB (ELIQUIS) PO SCH ×2 (08:51→21:03)
[2022-10-15] MEDS: ACETAMINOPHEN 500 MG TAB PO SCH ×3 (08:52→21:03)
[2022-10-15] MEDS: COSOPT OCUMETER PLUS 10ML (DORZOLAMIDE/TIMOLOL) OU SCH ×2 (08:53→21:06)
[2022-10-15] MEDS: REMEDY PHYTOPLEX Z-GUARD PASTE 113GM TUBE (FROM STOREROOM PRODUCT) TOP SCH ×3 (08:53→21:00)
[2022-10-15] MEDS: BISOPROLOL FUM 2.5 MG PER 1/2TAB PO SCH (08:58)
[2022-10-15] MEDS: SODIUM CHLORIDE NASAL 0.65% SPRAY BTL (OCEAN) SCH ×3 (08:59→21:00)
[2022-10-15] MEDS: FLUTICASONE PROP 0.05% NASAL SPRAY 16 GM (FLONASE) NARES SCH ×2 (09:00→21:06)
[2022-10-15] MEDS: MIRALAX *UNIT DOSE* 17GM PACKET PO SCH (09:00)
[2022-10-15] MEDS: DOCUSATE SODIUM 100MG CAPSULE PO SCH ×2 (09:00→21:00)
[2022-10-15] MEDS: LIDOCAINE 5% (LIDODERM) PATCH TD SCH (09:02)
[2022-10-15] MEDS: SALIVA SUBSTITUTE(MOUTHKOTE) BTL MT SCH ×4 (09:03→21:02)
[2022-10-15 10:41] LABS: BASO % 0.3 % (0.0-1.0); EOS # 0.1 10^3/uL (0.0-0.5); EOS % 1.1 % (0.0-3.0); HEMATOCRIT 26.4 % (42.0-52.0); HEMOGLOBIN 8.2 g/dl (13.5-17.5); LYMPH # 0.4 10^3/uL (1.5-5.0); LYMPH % 5.7 % (24.0-44.0); MEAN CORPUSCULAR HEMOGLOBIN 22.6 pg (27.0-33.0); MEAN CORPUSCULAR HGB CONC 31.1 g/dl (32.0-36.5); MEAN CORPUSCULAR VOLUME 72.7 fl (80.0-96.0); MONO # 0.4 10^3/uL (0.0-0.8); MONO % 6.2 % (2.0-8.0); NEUTROPHILS # 5.4 10^3/uL (1.5-8.5); NEUTROPHILS % 86.2 % (36.0-66.0); PLATELET COUNT, AUTOMATED 197 10^3/uL (150-450); RED BLOOD COUNT 3.63 10^6/uL (4.30-6.10); WHITE BLOOD COUNT 6.3 10^3/uL (4.0-10.0)
[2022-10-15 11:05] LABS: CALCIUM LEVEL 8.9 MG/DL (8.3-10.6); CREATININE FOR GFR 1.55 MG/DL (0.70-1.30); GLOMERULAR FILTRATION RATE 45.6 (>35); POTASSIUM SERUM 4.8 MMOL/L (3.5-5.1)
[2022-10-15 14:00] VITALS: BP 131/63; TEMP 98.1; O2SAT 96
[2022-10-15 20:00] VITALS: BP 115/56; TEMP 98.3; O2SAT 91
[2022-10-15 20:16] VITALS: BP 120/30
[2022-10-15 20:58] VITALS: BP 118/57
[2022-10-15] MEDS: SENNA 8.6 MG TAB (SENOKOT) PO SCH (21:00)
[2022-10-15] MEDS: REMDESIVIR 100 MG in NS 250 ML IV SCH (21:02)
[2022-10-15] MEDS: ATORVASTATIN 20 MG TAB PO SCH (21:03)
[2022-10-16 06:00] VITALS: BP 112/58; TEMP 98.1; O2SAT 93
[2022-10-16] MEDS: DOCUSATE SODIUM 100MG CAPSULE PO SCH ×2 (08:44→20:40)
[2022-10-16] MEDS: BISOPROLOL FUM 2.5 MG PER 1/2TAB PO SCH (08:45)
[2022-10-16] MEDS: OMEPRAZOLE 20MG CAP PO SCH ×2 (08:45→20:36)
[2022-10-16] MEDS: FERROUS SULFATE 325MG TAB PO SCH (08:45)
[2022-10-16] MEDS: ACETAMINOPHEN 500 MG TAB PO SCH ×3 (08:45→20:35)
[2022-10-16] MEDS: MULTIVITAMINS/MINERALS THERAP 1 TAB PO SCH (08:45)
[2022-10-16] MEDS: LORATADINE 10 MG TAB PO SCH (08:46)
[2022-10-16] MEDS: SALIVA SUBSTITUTE(MOUTHKOTE) BTL MT SCH ×4 (08:46→20:35)
[2022-10-16] MEDS: APIXABAN 2.5 MG TAB (ELIQUIS) PO SCH ×2 (08:46→20:36)
[2022-10-16] MEDS: COSOPT OCUMETER PLUS 10ML (DORZOLAMIDE/TIMOLOL) OU SCH ×2 (08:46→20:36)
[2022-10-16] MEDS: LIDOCAINE 5% (LIDODERM) PATCH TD SCH (08:46)
[2022-10-16] MEDS: CAPTOpril 3.125 MG PER 1/4 TABLET PO SCH ×2 (08:46→20:35)
[2022-10-16] MEDS: TAMSULOSIN 0.4 MG CAP PO SCH ×2 (08:46→20:35)
[2022-10-16] MEDS: ASPIRIN 81MG ENTERIC TABLET PO SCH (08:46)
[2022-10-16] MEDS: FLUTICASONE PROP 0.05% NASAL SPRAY 16 GM (FLONASE) NARES SCH ×2 (08:47→20:36)
[2022-10-16] MEDS: SODIUM CHLORIDE NASAL 0.65% SPRAY BTL (OCEAN) SCH ×3 (08:49→20:40)
[2022-10-16] MEDS: REMEDY PHYTOPLEX Z-GUARD PASTE 113GM TUBE (FROM STOREROOM PRODUCT) TOP SCH ×3 (08:49→20:39)
[2022-10-16] MEDS: MIRALAX *UNIT DOSE* 17GM PACKET PO SCH (08:49)
[2022-10-16 14:00] VITALS: BP 103/50; TEMP 98; O2SAT 93
[2022-10-16] MEDS: REMDESIVIR 100 MG in NS 250 ML IV SCH (17:01)
[2022-10-16 20:00] VITALS: BP 136/66; TEMP 98.2; O2SAT 94
[2022-10-16] MEDS: ATORVASTATIN 20 MG TAB PO SCH (20:36)
[2022-10-16] MEDS: SENNA 8.6 MG TAB (SENOKOT) PO SCH (20:40)
[2022-10-17 05:46] LABS: HEMATOCRIT 23.8 % (42.0-52.0); HEMOGLOBIN 7.5 g/dl (13.5-17.5); MEAN CORPUSCULAR HEMOGLOBIN 22.4 pg (27.0-33.0); MEAN CORPUSCULAR HGB CONC 31.5 g/dl (32.0-36.5); PLATELET COUNT, AUTOMATED 203 10^3/uL (150-450); RED BLOOD COUNT 3.35 10^6/uL (4.30-6.10); WHITE BLOOD COUNT 8.5 10^3/uL (4.0-10.0)
[2022-10-17] MEDS: FUROSEMIDE 20 MG TAB PO SCH ×2 (05:55→06:00)
[2022-10-17 06:00] VITALS: BP 114/56; TEMP 99.1; O2SAT 94
[2022-10-17 06:10] VITALS: BP 121/56; TEMP 98.5
[2022-10-17] MEDS: LORATADINE 10 MG TAB PO SCH (08:30)
[2022-10-17] MEDS: FERROUS SULFATE 325MG TAB PO SCH (08:30)
[2022-10-17] MEDS: TAMSULOSIN 0.4 MG CAP PO SCH ×2 (08:30→20:21)
[2022-10-17] MEDS: MULTIVITAMINS/MINERALS THERAP 1 TAB PO SCH (08:30)
[2022-10-17] MEDS: OMEPRAZOLE 20MG CAP PO SCH ×2 (08:31→20:21)
[2022-10-17] MEDS: ASPIRIN 81MG ENTERIC TABLET PO SCH (08:31)
[2022-10-17] MEDS: APIXABAN 2.5 MG TAB (ELIQUIS) PO SCH ×2 (08:31→20:21)
[2022-10-17] MEDS: CAPTOpril 3.125 MG PER 1/4 TABLET PO SCH ×2 (08:31→20:45)
[2022-10-17] MEDS: SALIVA SUBSTITUTE(MOUTHKOTE) BTL MT SCH ×4 (08:32→20:20)
[2022-10-17] MEDS: ACETAMINOPHEN 500 MG TAB PO SCH ×3 (08:32→20:21)
[2022-10-17] MEDS: DOCUSATE SODIUM 100MG CAPSULE PO SCH ×2 (08:32→20:45)
[2022-10-17] MEDS: BISOPROLOL FUM 2.5 MG PER 1/2TAB PO SCH (08:32)
[2022-10-17] MEDS: REMEDY PHYTOPLEX Z-GUARD PASTE 113GM TUBE (FROM STOREROOM PRODUCT) TOP SCH ×3 (08:33→20:46)
[2022-10-17] MEDS: COSOPT OCUMETER PLUS 10ML (DORZOLAMIDE/TIMOLOL) OU SCH ×2 (08:33→20:21)
[2022-10-17] MEDS: FLUTICASONE PROP 0.05% NASAL SPRAY 16 GM (FLONASE) NARES SCH ×2 (08:33→20:21)
[2022-10-17] MEDS: LIDOCAINE 5% (LIDODERM) PATCH TD SCH (08:33)
[2022-10-17] MEDS: MIRALAX *UNIT DOSE* 17GM PACKET PO SCH (08:33)
[2022-10-17] MEDS: SODIUM CHLORIDE NASAL 0.65% SPRAY BTL (OCEAN) SCH ×3 (08:33→20:45)
[2022-10-17 14:00] VITALS: BP 116/58; TEMP 98.3; O2SAT 93
[2022-10-17] MEDS: REMDESIVIR 100 MG in NS 250 ML IV SCH (18:11)
[2022-10-17 20:19] VITALS: BP 108/56; TEMP 97.7; O2SAT 95
[2022-10-17] MEDS: guaiFENesin SYRUP 200MG 10ML UDC PO PRN (20:20)
[2022-10-17] MEDS: ATORVASTATIN 20 MG TAB PO SCH (20:21)
[2022-10-17] MEDS: SENNA 8.6 MG TAB (SENOKOT) PO SCH (20:45)
[2022-10-18 06:00] VITALS: BP 142/66; TEMP 98.3; O2SAT 94
[2022-10-18] MEDS ORDERED: FLOM0.4C39 PO (07:51)
[2022-10-18] MEDS ORDERED: ATOR1TAB21 PO (07:51)
[2022-10-18] MEDS ORDERED: FURO20TA2 PO (07:51)
[2022-10-18] MEDS ORDERED: ASPI-161 PO (07:51)
[2022-10-18] MEDS ORDERED: NITR0.4S14 SL (07:51)
[2022-10-18] MEDS ORDERED: OMEP1CAP73 PO (07:51)
[2022-10-18] MEDS ORDERED: ELIQ2.5T PO (07:51)
[2022-10-18] MEDS ORDERED: CLAR10TA7 PO (07:51)
[2022-10-18] MEDS ORDERED: CAPT31TA PO (07:51)
[2022-10-18] MEDS: DOCUSATE SODIUM 100MG CAPSULE PO SCH ×2 (07:52→20:38)
[2022-10-18] MEDS: TAMSULOSIN 0.4 MG CAP PO SCH ×2 (08:18→20:23)
[2022-10-18] MEDS: CAPTOpril 3.125 MG PER 1/4 TABLET PO SCH ×2 (08:18→20:38)
[2022-10-18] MEDS: LIDOCAINE 5% (LIDODERM) PATCH TD SCH (08:18)
[2022-10-18] MEDS: MULTIVITAMINS/MINERALS THERAP 1 TAB PO SCH (08:18)
[2022-10-18] MEDS: OMEPRAZOLE 20MG CAP PO SCH ×2 (08:18→20:23)
[2022-10-18] MEDS: APIXABAN 2.5 MG TAB (ELIQUIS) PO SCH ×2 (08:18→20:23)
[2022-10-18] MEDS: FERROUS SULFATE 325MG TAB PO SCH (08:19)
[2022-10-18] MEDS: LORATADINE 10 MG TAB PO SCH (08:19)
[2022-10-18] MEDS: SODIUM CHLORIDE NASAL 0.65% SPRAY BTL (OCEAN) SCH ×3 (08:19→20:39)
[2022-10-18] MEDS: FLUTICASONE PROP 0.05% NASAL SPRAY 16 GM (FLONASE) NARES SCH ×2 (08:19→20:24)
[2022-10-18] MEDS: ACETAMINOPHEN 500 MG TAB PO SCH ×3 (08:19→20:23)
[2022-10-18] MEDS: COSOPT OCUMETER PLUS 10ML (DORZOLAMIDE/TIMOLOL) OU SCH ×2 (08:19→20:24)
[2022-10-18] MEDS: BISOPROLOL FUM 2.5 MG PER 1/2TAB PO SCH (08:19)
[2022-10-18] MEDS: ASPIRIN 81MG ENTERIC TABLET PO SCH (08:19)
[2022-10-18] MEDS: MIRALAX *UNIT DOSE* 17GM PACKET PO SCH (08:20)
[2022-10-18] MEDS: SALIVA SUBSTITUTE(MOUTHKOTE) BTL MT SCH ×4 (08:20→20:24)
[2022-10-18] MEDS: REMEDY PHYTOPLEX Z-GUARD PASTE 113GM TUBE (FROM STOREROOM PRODUCT) TOP SCH ×3 (08:44→20:39)
[2022-10-18] MEDS: REMDESIVIR 100 MG in NS 250 ML IV SCH ×2 (11:43→17:00)
[2022-10-18 15:22] VITALS: BP 117/59; TEMP 97.9; O2SAT 97
[2022-10-18 20:00] VITALS: BP_SYST 109; BP_SYST 112; BP_DIAS 53; TEMP 98.4; O2SAT 95
[2022-10-18] MEDS: ATORVASTATIN 20 MG TAB PO SCH (20:23)
[2022-10-18] MEDS: guaiFENesin SYRUP 200MG 10ML UDC PO PRN (20:26)
[2022-10-18] MEDS: SENNA 8.6 MG TAB (SENOKOT) PO SCH (20:38)
[2022-10-19] MEDS: guaiFENesin SYRUP 200MG 10ML UDC PO PRN ×2 (04:41→19:33)
[2022-10-19] MEDS: FUROSEMIDE 20 MG TAB PO SCH (05:49)
[2022-10-19 06:00] VITALS: BP 134/67; TEMP 98.2; O2SAT 95
[2022-10-19] MEDS: REMEDY PHYTOPLEX Z-GUARD PASTE 113GM TUBE (FROM STOREROOM PRODUCT) TOP SCH ×3 (07:06→19:10)
[2022-10-19] MEDS: DOCUSATE SODIUM 100MG CAPSULE PO SCH ×2 (07:06→19:32)
[2022-10-19] MEDS: ACETAMINOPHEN 500 MG TAB PO SCH ×3 (07:11→19:33)
[2022-10-19] MEDS: MIRALAX *UNIT DOSE* 17GM PACKET PO SCH (07:11)
[2022-10-19] MEDS: LIDOCAINE 5% (LIDODERM) PATCH TD SCH (07:11)
[2022-10-19] MEDS: MULTIVITAMINS/MINERALS THERAP 1 TAB PO SCH (07:12)
[2022-10-19] MEDS: LORATADINE 10 MG TAB PO SCH (07:12)
[2022-10-19] MEDS: TAMSULOSIN 0.4 MG CAP PO SCH ×2 (07:12→19:32)
[2022-10-19] MEDS: OMEPRAZOLE 20MG CAP PO SCH ×2 (07:12→19:33)
[2022-10-19] MEDS: FERROUS SULFATE 325MG TAB PO SCH (07:12)
[2022-10-19] MEDS: ASPIRIN 81MG ENTERIC TABLET PO SCH (07:13)
[2022-10-19] MEDS: CAPTOpril 3.125 MG PER 1/4 TABLET PO SCH ×2 (07:13→19:32)
[2022-10-19] MEDS: APIXABAN 2.5 MG TAB (ELIQUIS) PO SCH ×2 (07:13→19:32)
[2022-10-19] MEDS: BISOPROLOL FUM 2.5 MG PER 1/2TAB PO SCH (07:13)
[2022-10-19] MEDS: SALIVA SUBSTITUTE(MOUTHKOTE) BTL MT SCH ×4 (07:14→19:35)
[2022-10-19] MEDS: FLUTICASONE PROP 0.05% NASAL SPRAY 16 GM (FLONASE) NARES SCH ×2 (07:14→19:34)
[2022-10-19] MEDS: COSOPT OCUMETER PLUS 10ML (DORZOLAMIDE/TIMOLOL) OU SCH ×2 (07:14→19:33)
[2022-10-19] MEDS: SODIUM CHLORIDE NASAL 0.65% SPRAY BTL (OCEAN) SCH ×3 (07:15→19:34)
[2022-10-19 14:00] VITALS: BP 130/60; TEMP 97.4; O2SAT 96
[2022-10-19] MEDS: SENNA 8.6 MG TAB (SENOKOT) PO SCH (19:08)
[2022-10-19 19:29] VITALS: BP 135/65; TEMP 98.1; O2SAT 95
[2022-10-19] MEDS: ATORVASTATIN 20 MG TAB PO SCH (19:32)
[2022-10-20 06:05] VITALS: BP 131/68; TEMP 98.2; O2SAT 94
[2022-10-20] MEDS: APIXABAN 2.5 MG TAB (ELIQUIS) PO SCH ×2 (08:24→20:19)
[2022-10-20] MEDS: DOCUSATE SODIUM 100MG CAPSULE PO SCH ×2 (08:24→20:17)
[2022-10-20] MEDS: MULTIVITAMINS/MINERALS THERAP 1 TAB PO SCH (08:24)
[2022-10-20] MEDS: ASPIRIN 81MG ENTERIC TABLET PO SCH (08:25)
[2022-10-20] MEDS: TAMSULOSIN 0.4 MG CAP PO SCH ×2 (08:25→20:19)
[2022-10-20] MEDS: BISOPROLOL FUM 2.5 MG PER 1/2TAB PO SCH (08:25)
[2022-10-20] MEDS: ACETAMINOPHEN 500 MG TAB PO SCH ×3 (08:25→20:20)
[2022-10-20] MEDS: FERROUS SULFATE 325MG TAB PO SCH (08:25)
[2022-10-20] MEDS: OMEPRAZOLE 20MG CAP PO SCH ×2 (08:25→20:18)
[2022-10-20] MEDS: LIDOCAINE 5% (LIDODERM) PATCH TD SCH (08:26)
[2022-10-20] MEDS: CAPTOpril 3.125 MG PER 1/4 TABLET PO SCH ×2 (08:26→20:20)
[2022-10-20] MEDS: FLUTICASONE PROP 0.05% NASAL SPRAY 16 GM (FLONASE) NARES SCH ×2 (08:26→20:18)
[2022-10-20] MEDS: COSOPT OCUMETER PLUS 10ML (DORZOLAMIDE/TIMOLOL) OU SCH ×2 (08:26→20:18)
[2022-10-20] MEDS: LORATADINE 10 MG TAB PO SCH (08:26)
[2022-10-20] MEDS: SODIUM CHLORIDE NASAL 0.65% SPRAY BTL (OCEAN) SCH ×3 (08:27→20:17)
[2022-10-20] MEDS: REMEDY PHYTOPLEX Z-GUARD PASTE 113GM TUBE (FROM STOREROOM PRODUCT) TOP SCH ×3 (08:27→20:18)
[2022-10-20] MEDS: MIRALAX *UNIT DOSE* 17GM PACKET PO SCH (08:27)
[2022-10-20] MEDS: SALIVA SUBSTITUTE(MOUTHKOTE) BTL MT SCH ×4 (08:28→20:17)
[2022-10-20 14:00] VITALS: BP 117/58; TEMP 98.2; O2SAT 96
[2022-10-20 20:00] VITALS: BP 148/68; TEMP 97.8; O2SAT 96
[2022-10-20] MEDS: SENNA 8.6 MG TAB (SENOKOT) PO SCH (20:17)
[2022-10-20] MEDS: ATORVASTATIN 20 MG TAB PO SCH (20:19)
[2022-10-20 20:20] VITALS: BP 148/68
[2022-10-21 06:00] VITALS: BP 129/63; TEMP 98.1; O2SAT 94
[2022-10-21] MEDS: FUROSEMIDE 20 MG TAB PO SCH (06:00)
== END 2022-10-21 08:20 | disposition home health service (06) | DRG 561 ==
LOC: M PM&R 16:05
PROVIDERS: ADMIT Physical Medicine & Rehabilitation; ATTEND Physical Medicine & Rehabilitation
PROC: 30233N1 Transfusion of Nonautologous Red Blood Cells into Peripheral Vein, Percutaneous Approach (ICD-10-PCS; principal; 2022-10-01)
DX: S42.252D Displaced fracture of greater tuberosity of left humerus, subsequent encounter for fracture with routine healing (principal); I25.10 Atherosclerotic heart disease of native coronary artery without angina pectoris; I49.5 Sick sinus syndrome; I12.9 Hypertensive chronic kidney disease with stage 1 through stage 4 chronic kidney disease, or unspecified chronic kidney disease; N18.9 Chronic kidney disease, unspecified; E78.5 Hyperlipidemia, unspecified; N40.0 Benign prostatic hyperplasia without lower urinary tract symptoms; D56.3 Thalassemia minor; K21.9 Gastro-esophageal reflux disease without esophagitis; D50.9 Iron deficiency anemia, unspecified; I48.91 Unspecified atrial fibrillation; Z85.51 Personal history of malignant neoplasm of bladder; Z92.3 Personal history of irradiation; Z92.21 Personal history of antineoplastic chemotherapy; Z74.09 Other reduced mobility; Z74.1 Need for assistance with personal care; Z98.41 Cataract extraction status, right eye; Z98.42 Cataract extraction status, left eye; Z95.1 Presence of aortocoronary bypass graft; Z95.0 Presence of cardiac pacemaker; Z79.01 Long term (current) use of anticoagulants; Z79.82 Long term (current) use of aspirin; Z79.899 Other long term (current) drug therapy; Z88.2 Allergy status to sulfonamides; Z91.030 Bee allergy status; H40.9 Unspecified glaucoma; R42 Dizziness and giddiness; M25.512 Pain in left shoulder; I95.9 Hypotension, unspecified

== ENCOUNTER → 2022-11-04 | Outpatient (CLI) | payer MEDICARE ==
[~2022-11-04] MED LIST changes: +CAPT31TA PO; +CLAR10TA7 PO
== END ==
LOC: M SOG 14:05
PROVIDERS: ATTEND Orthopaedic Surgery
DX: S42.202D Unspecified fracture of upper end of left humerus, subsequent encounter for fracture with routine healing (principal); M85.811 Other specified disorders of bone density and structure, right shoulder; M25.512 Pain in left shoulder; Y93.9 Activity, unspecified; Y92.9 Unspecified place or not applicable

== ENCOUNTER → 2022-11-11 | Outpatient (CLI) | payer MEDICARE ==
[2022-11-11 13:51] LABS: CALCIUM LEVEL 9.4 MG/DL (8.3-10.6); CREATININE FOR GFR 1.6 MG/DL (0.70-1.30); POTASSIUM SERUM 4.6 MMOL/L (3.5-5.1)
== END ==
LOC: M PLALAB 10:52
PROVIDERS: ATTEND Physician Assistant
DX: I50.32 Chronic diastolic (congestive) heart failure (principal)

== ENCOUNTER → 2022-12-28 | Outpatient (CLI) | payer MEDICARE ==
[2022-12-28 14:25] LABS: HEMATOCRIT 30.1 % (42.0-52.0); HEMOGLOBIN 9.4 g/dl (13.5-17.5); MEAN CORPUSCULAR HEMOGLOBIN 22.3 pg (27.0-33.0); MEAN CORPUSCULAR HGB CONC 31.2 g/dl (32.0-36.5); MEAN CORPUSCULAR VOLUME 71.3 fl (80.0-96.0); PLATELET COUNT, AUTOMATED 155 10^3/uL (150-450); RED BLOOD COUNT 4.22 10^6/uL (4.30-6.10); WHITE BLOOD COUNT 4.9 10^3/uL (4.0-10.0)
[2022-12-28 14:59] LABS: ALBUMIN 3.5 G/DL (3.2-5.2); BILIRUBIN,TOTAL 1.1 MG/DL (0.3-1.2); CALCIUM LEVEL 9.3 MG/DL (8.3-10.6); CHOLESTEROL RISK RATIO 1.86 (<5); CREATININE FOR GFR 1.51 MG/DL (0.70-1.30); HDL CHOLESTEROL 55.7 MG/DL (>40); LDL CHOLESTEROL 38.1 MG/DL (<100); NON-HDL-C 48.3 MG/DL; POTASSIUM SERUM 4.3 MMOL/L (3.5-5.1); TOTAL PROTEIN 6.6 G/DL (5.7-8.2)
== END ==
LOC: M PLALAB 11:27
PROVIDERS: ATTEND Internal Medicine
DX: E78.5 Hyperlipidemia, unspecified (principal); D64.9 Anemia, unspecified

== ENCOUNTER → 2022-12-31 | Outpatient (CLI) | payer MEDICARE ==
[2022-12-31 11:33] LABS: CALCIUM LEVEL 9.6 MG/DL (8.3-10.6); CREATININE FOR GFR 1.54 MG/DL (0.70-1.30); GLOMERULAR FILTRATION RATE 45.9 (>35); POTASSIUM SERUM 4.5 MMOL/L (3.5-5.1)
== END ==
LOC: M PLALAB 08:42
PROVIDERS: ATTEND Physician Assistant
DX: I50.32 Chronic diastolic (congestive) heart failure (principal)

== ENCOUNTER → 2023-05-16 | Outpatient (CLI) | payer MEDICARE ==
[~2023-05-16] MED LIST changes: -ASPI-161 PO; +ASPI-615 PO; -MIRA1POW3 PO; +MIRA33506 PO
[2023-05-16 10:59] LABS: CALCIUM LEVEL 9.6 MG/DL (8.3-10.6); CREATININE FOR GFR 1.73 MG/DL (0.70-1.30); GLOMERULAR FILTRATION RATE 40.2 (>35); MAGNESIUM LEVEL 2.3 MG/DL (1.8-2.4); POTASSIUM SERUM 4.9 MMOL/L (3.5-5.1)
== END ==
LOC: M PLALAB 09:01
PROVIDERS: ATTEND Physician Assistant
DX: I50.42 Chronic combined systolic (congestive) and diastolic (congestive) heart failure (principal)

== ENCOUNTER → 2023-05-25 | Outpatient (CLI) | payer MEDICARE | LOC: M PLAIMG 14:22 | PROVIDERS: ATTEND Physician Assistant | DX: I50.42 Chronic combined systolic (congestive) and diastolic (congestive) heart failure (principal); I25.5 Ischemic cardiomyopathy; I08.0 Rheumatic disorders of both mitral and aortic valves; I27.20 Pulmonary hypertension, unspecified ==

== ENCOUNTER 2023-06-25 09:12 | Emergency (ER) | payer MEDICARE ==
[~2023-06-25] VITALS: Ht 180.3 cm; Wt 86.4 kg
[2023-06-25] MEDS ORDERED: MUCI1TAB16 PO ×2 (09:27→14:15)
[2023-06-25] MEDS ORDERED: ENTR1TAB PO (09:27)
[2023-06-25] MEDS ORDERED: AMOX875T2 PO (09:27)
[2023-06-25] MEDS: IPRATROPIUM 0.5MG/ALBUTEROL 2.5MG INH SOL UD 3ML (DUONEB) NEB ONE (11:07)
[2023-06-25 11:24] LABS: BASO % 0.2 % (0.0-1.0); EOS % 0.5 % (0.0-3.0); HEMATOCRIT 29.3 % (42.0-52.0); HEMOGLOBIN 9.3 g/dl (13.5-17.5); LYMPH # 0.5 10^3/uL (1.5-5.0); MEAN CORPUSCULAR HEMOGLOBIN 22.2 pg (27.0-33.0); MEAN CORPUSCULAR HGB CONC 31.7 g/dl (32.0-36.5); MEAN CORPUSCULAR VOLUME 69.9 fl (80.0-96.0); MONO # 0.6 10^3/uL (0.0-0.8); MONO % 10.3 % (2.0-8.0); NEUTROPHILS # 4.5 10^3/uL (1.5-8.5); NEUTROPHILS % 80.6 % (36.0-66.0); PLATELET COUNT, AUTOMATED 155 10^3/uL (150-450); RED BLOOD COUNT 4.19 10^6/uL (4.30-6.10); WHITE BLOOD COUNT 5.6 10^3/uL (4.0-10.0)
[2023-06-25] MEDS: FUROSEMIDE 40MG/4ML VIAL IV ONE (11:29)
[2023-06-25 11:36] LABS: CALCIUM LEVEL 9.3 MG/DL (8.3-10.6); CREATININE FOR GFR 1.89 MG/DL (0.70-1.30); GLOMERULAR FILTRATION RATE 36.3 (>35); POTASSIUM SERUM 4.7 MMOL/L (3.5-5.1)
[2023-06-25] MEDS: NS 500 ML IV ONE (13:46)
[2023-06-25] MEDS ORDERED: BENZ200C70 PO (14:15)
[2023-06-25 14:38] VITALS: BP 148/62; TEMP 97.4; O2SAT 95
== END 2023-06-25 14:40 | disposition home or self-care (01) ==
LOC: M ED 09:12
DX: R05.9 Cough, unspecified (principal); B97.81 Human metapneumovirus as the cause of diseases classified elsewhere; I25.2 Old myocardial infarction; I10 Essential (primary) hypertension; E78.5 Hyperlipidemia, unspecified; K21.9 Gastro-esophageal reflux disease without esophagitis; H81.4 Vertigo of central origin; F17.200 Nicotine dependence, unspecified, uncomplicated; C67.9 Malignant neoplasm of bladder, unspecified; Z86.79 Personal history of other diseases of the circulatory system; Z86.73 Personal history of transient ischemic attack (TIA), and cerebral infarction without residual deficits; Z88.2 Allergy status to sulfonamides; Z91.030 Bee allergy status; Z79.2 Long term (current) use of antibiotics; Z79.02 Long term (current) use of antithrombotics/antiplatelets; Z79.82 Long term (current) use of aspirin; Z79.810 Long term (current) use of selective estrogen receptor modulators (SERMs); Z79.83 Long term (current) use of bisphosphonates; Z79.899 Other long term (current) drug therapy
CPT/HCPCS: 71046; 80048; 83880; 85025; 87486; 87581; 87633; 87798; 94640; 96361; 96374; 99284; J1940

== ENCOUNTER → 2023-08-16 | Outpatient (CLI) | payer MEDICARE ==
[~2023-08-16] MED LIST changes: +BENZ200C70 PO; +ENTR1TAB PO; +MUCI1TAB16 PO
[2023-08-16 13:47] LABS: ALBUMIN 3.4 G/DL (3.2-5.2); BILIRUBIN,TOTAL 0.9 MG/DL (0.3-1.2); CALCIUM LEVEL 9.1 MG/DL (8.3-10.6); CHOLESTEROL RISK RATIO 1.8 (<5); CREATININE FOR GFR 1.81 MG/DL (0.70-1.30); GLOMERULAR FILTRATION RATE 38.1 (>35); HDL CHOLESTEROL 53.2 MG/DL (>40); LDL CHOLESTEROL 35.6 MG/DL (<100); NON-HDL-C 42.8 MG/DL; TOTAL PROTEIN 6.4 G/DL (5.7-8.2)
[2023-08-16 13:48] LABS: HEMATOCRIT 30.1 % (42.0-52.0); HEMOGLOBIN 9.5 g/dl (13.5-17.5); MEAN CORPUSCULAR HEMOGLOBIN 21.8 pg (27.0-33.0); MEAN CORPUSCULAR HGB CONC 31.6 g/dl (32.0-36.5); MEAN CORPUSCULAR VOLUME 69.2 fl (80.0-96.0); PLATELET COUNT, AUTOMATED 136 10^3/uL (150-450); RED BLOOD COUNT 4.35 10^6/uL (4.30-6.10); WHITE BLOOD COUNT 4.7 10^3/uL (4.0-10.0)
== END ==
LOC: M PLALAB 10:22
PROVIDERS: ATTEND Physician Assistant
DX: I25.10 Atherosclerotic heart disease of native coronary artery without angina pectoris (principal); I50.42 Chronic combined systolic (congestive) and diastolic (congestive) heart failure; I48.0 Paroxysmal atrial fibrillation

== ENCOUNTER → 2023-08-25 | Outpatient (CLI) | payer MEDICARE | LOC: M SOG 07:53 | PROVIDERS: ATTEND Orthopaedic Surgery | DX: S42.212P Unspecified displaced fracture of surgical neck of left humerus, subsequent encounter for fracture with malunion (principal); M25.561 Pain in right knee; M25.562 Pain in left knee; M11.262 Other chondrocalcinosis, left knee ==

== ENCOUNTER → 2023-12-02 | Outpatient (CLI) | payer MEDICARE ==
[2023-12-02 10:29] LABS: CALCIUM LEVEL 10.1 MG/DL (8.3-10.6); CREATININE FOR GFR 1.93 MG/DL (0.70-1.30); GLOMERULAR FILTRATION RATE 35.3 (>35); MAGNESIUM LEVEL 2.2 MG/DL (1.8-2.4); POTASSIUM SERUM 4.8 MMOL/L (3.5-5.1)
== END ==
LOC: M PLALAB 08:29
PROVIDERS: ATTEND Physician Assistant
DX: I50.42 Chronic combined systolic (congestive) and diastolic (congestive) heart failure (principal)

== ENCOUNTER → 2024-03-02 | Outpatient (CLI) | payer MEDICARE ==
[2024-03-02 11:36] LABS: HEMATOCRIT 29.7 % (42.0-52.0); HEMOGLOBIN 9.3 g/dl (13.5-17.5); MEAN CORPUSCULAR HEMOGLOBIN 21.6 pg (27.0-33.0); MEAN CORPUSCULAR HGB CONC 31.3 g/dl (32.0-36.5); MEAN CORPUSCULAR VOLUME 68.9 fl (80.0-96.0); PLATELET COUNT, AUTOMATED 148 10^3/uL (150-450); RED BLOOD COUNT 4.31 10^6/uL (4.30-6.10); WHITE BLOOD COUNT 4.9 10^3/uL (4.0-10.0)
[2024-03-02 11:57] LABS: CALCIUM LEVEL 9.7 MG/DL (8.3-10.6); CREATININE FOR GFR 1.81 MG/DL (0.70-1.30); MAGNESIUM LEVEL 2.4 MG/DL (1.8-2.4); POTASSIUM SERUM 5.2 MMOL/L (3.5-5.1)
== END ==
LOC: M PLALAB 08:55
PROVIDERS: ATTEND Physician Assistant
DX: I48.0 Paroxysmal atrial fibrillation (principal); I50.42 Chronic combined systolic (congestive) and diastolic (congestive) heart failure

== ENCOUNTER 2024-05-27 11:51 | Emergency (ER) | payer MEDICARE ==
[~2024-05-27 11:51] MED LIST changes: -IPRA3SP
[2024-05-27] MEDS ORDERED: IPRA3SP (12:11)
[2024-05-27 13:15] LABS: BASO % 0.2 % (0.0-1.0); EOS # 0.1 10^3/uL (0.0-0.5); EOS % 2.4 % (0.0-3.0); HEMOGLOBIN 8.6 g/dl (13.5-17.5); LYMPH # 0.6 10^3/uL (1.5-5.0); LYMPH % 12.7 % (24.0-44.0); MEAN CORPUSCULAR HEMOGLOBIN 21.7 pg (27.0-33.0); MEAN CORPUSCULAR HGB CONC 31.9 g/dl (32.0-36.5); MONO # 0.4 10^3/uL (0.0-0.8); MONO % 8.5 % (2.0-8.0); NEUTROPHILS # 3.5 10^3/uL (1.5-8.5); PLATELET COUNT, AUTOMATED 148 10^3/uL (150-450); RED BLOOD COUNT 3.97 10^6/uL (4.30-6.10); WHITE BLOOD COUNT 4.6 10^3/uL (4.0-10.0)
[2024-05-27 14:05] LABS: CK-MB VALUE MASS < 1.0 NG/ML (<3.6)
[2024-05-27 14:07] LABS: BLOOD UREA NITROGEN 54 MG/DL (9-23); CARBON DIOXIDE LEVEL 29 MMOL/L (20-31); CHLORIDE LEVEL 108 MMOL/L (98-107); CPK CREATINE PHOSPHOKINASE 35 U/L (46-171); CREATININE FOR GFR 1.79 MG/DL (0.70-1.30); GLOMERULAR FILTRATION RATE 38.5 (>35); GLUCOSE, FASTING 107 MG/DL (74-106); MB/CK RELATIVE INDEX 2.85 (< OR =4); POTASSIUM SERUM 4.4 MMOL/L (3.5-5.1); SODIUM LEVEL 144 MMOL/L (136-145)
[2024-05-27 16:08] VITALS: BP 103/67; TEMP 97.8; O2SAT 98
== END 2024-05-27 16:23 | disposition home or self-care (01) ==
LOC: M ED 11:51
DX: I49.3 Ventricular premature depolarization (principal); I45.81 Long QT syndrome; I10 Essential (primary) hypertension; E78.5 Hyperlipidemia, unspecified; N40.0 Benign prostatic hyperplasia without lower urinary tract symptoms; C67.9 Malignant neoplasm of bladder, unspecified; Z79.01 Long term (current) use of anticoagulants; Z79.82 Long term (current) use of aspirin; Z88.2 Allergy status to sulfonamides; Z91.030 Bee allergy status; Z86.79 Personal history of other diseases of the circulatory system; Z79.02 Long term (current) use of antithrombotics/antiplatelets; Z79.899 Other long term (current) drug therapy

== ENCOUNTER → 2024-05-27 | Outpatient (REF) | payer MEDICARE ==
[~2024-05-27] MED LIST changes: +IPRA3SP
[2024-05-29 12:51] LABS: MAGNESIUM LEVEL 2.2 MG/DL (1.8-2.4)
[2024-05-29 12:56] LABS: THYROID STIMULATING HORMONE 1.889 uIU/ML (0.55-4.78)
== END ==
LOC: M LAB REF 11:45
PROVIDERS: ATTEND Physician Assistant
DX: I50.42 Chronic combined systolic (congestive) and diastolic (congestive) heart failure (principal); I49.3 Ventricular premature depolarization

== ENCOUNTER → 2024-07-06 | Outpatient (CLI) | payer MEDICARE ==
[~2024-07-06] MED LIST changes: -FLOM0.4C39 PO; +IPRA3SP; +TAMS-18 PO
[2024-07-06 13:44] LABS: HEMATOCRIT 30.1 % (42.0-52.0); HEMOGLOBIN 9.4 g/dl (13.5-17.5); MEAN CORPUSCULAR HEMOGLOBIN 21.8 pg (27.0-33.0); MEAN CORPUSCULAR HGB CONC 31.2 g/dl (32.0-36.5); MEAN CORPUSCULAR VOLUME 69.8 fl (80.0-96.0); PLATELET COUNT, AUTOMATED 147 10^3/uL (150-450); RED BLOOD COUNT 4.31 10^6/uL (4.30-6.10); WHITE BLOOD COUNT 4.7 10^3/uL (4.0-10.0)
[2024-07-06 14:22] LABS: ALBUMIN 3.7 G/DL (3.2-5.2); BILIRUBIN,TOTAL 1.1 MG/DL (0.3-1.2); CALCIUM LEVEL 9.5 MG/DL (8.3-10.6); CHOLESTEROL RISK RATIO 1.92 (<5); CREATININE FOR GFR 1.74 MG/DL (0.70-1.30); GLOMERULAR FILTRATION RATE 37.7 (>35); HDL CHOLESTEROL 54.5 MG/DL (>40); LDL CHOLESTEROL 39.7 MG/DL (<100); NON-HDL-C 50.5 MG/DL; POTASSIUM SERUM 5.4 MMOL/L (3.5-5.1); TOTAL PROTEIN 6.8 G/DL (5.7-8.2)
== END ==
LOC: M PLALAB 10:30
PROVIDERS: ATTEND Internal Medicine
DX: I48.91 Unspecified atrial fibrillation (principal); E78.5 Hyperlipidemia, unspecified

== ENCOUNTER → 2024-08-29 | Outpatient (REF) | payer MEDICARE ==
[2024-08-29 15:42] LABS: CALCIUM LEVEL 8.7 MG/DL (8.3-10.6); CARBON DIOXIDE LEVEL 29.0 MMOL/L (20-31); CHLORIDE LEVEL 106.0 MMOL/L (98-107); CREATININE FOR GFR 1.92 MG/DL (0.70-1.30); GLOMERULAR FILTRATION RATE 33.5 (>35); POTASSIUM SERUM 5.1 MMOL/L (3.5-5.1); SODIUM LEVEL 144.0 MMOL/L (136-145)
== END ==
LOC: M LAB REF 14:13
PROVIDERS: ATTEND Physician Assistant
DX: I50.42 Chronic combined systolic (congestive) and diastolic (congestive) heart failure (principal)

== ENCOUNTER → 2024-12-10 | Outpatient (CLI) | payer MEDICARE ==
[~2024-12-10] MED LIST changes: +CAPT1TAB16 PO; -CAPT31TA PO
[2024-12-10 14:35] LABS: CALCIUM LEVEL 9.3 MG/DL (8.3-10.6); CARBON DIOXIDE LEVEL 30.0 MMOL/L (20-31); CHLORIDE LEVEL 105.0 MMOL/L (98-107); CREATININE FOR GFR 1.77 MG/DL (0.70-1.30); GLOMERULAR FILTRATION RATE 36.7 (>35); POTASSIUM SERUM 5.1 MMOL/L (3.5-5.1); SODIUM LEVEL 145.0 MMOL/L (136-145)
== END ==
LOC: M PLALAB 09:38
PROVIDERS: ATTEND Physician Assistant
DX: I50.42 Chronic combined systolic (congestive) and diastolic (congestive) heart failure (principal)

== ENCOUNTER → 2025-01-02 | Outpatient (REF) | payer MEDICARE | LOC: M LAB REF 13:09 | PROVIDERS: ATTEND Urology | DX: C67.9 Malignant neoplasm of bladder, unspecified (principal) ==